=== PATIENT | female | born 1960 | race African-American/Black ===

== ENCOUNTER → 2016-08-08 | Outpatient (CLI) | payer OTHER ==
[~2016-08-08] MED LIST: REGADENOSON 0.4 MG/5 ML SYRINGE IV ONE
--- NOTE | 2016-08-08 11:42 | EST ---
DATE OF SERVICE: 08/08/2016 AGE: 56Y SEX: F HT: 5'1" WT: 140 lbs. Protocol Pedrito: Other: Lexiscan Cardiolite Stage: Dur. of Exercise: *Heart Rate Blood Pressure *Rest: 76 Rest: 112/77 * *Max. Achieved: 121 Maximum BP: 113/71 85% PMHR: 138 100% PMHR: 162 *METS: INDICATIONS: MEDICATIONS: CLINICAL INFORMATION: History of chest pain, hypertension, shortness of breath, CVA, family history of coronary artery disease, history of smoking half a pack of cigarettes a day for 1 year and quit smoking a few years ago. Resting ECG shows sinus rhythm, rate of 76 beats per minute, PA interval 0.16, QRS 0.08, nonspecific ST-T wave changes. Mild J-point depression. Utilizing a standard Lexiscan protocol, Lexiscan was given IV push followed by serial EKGs without any chest pain or pressure. Mild J-point depression similar to what it was before without any ( ) ST segment depressions. IMPRESSION: 1. Baseline rhythm is sinus with nonspecific ST-T wave changes, mild J-point depression. 2. Negative Lexiscan Cardiolite study. 3. Nuclear scintigrams to follow from radiology department.
--- NOTE | 2016-08-08 11:51 | NM ---
EXAMINATION TYPE: NM stress lexiscan cardiolite DATE OF EXAM: 08/08/2016 11:38 AM COMPARISON: NONE HISTORY: Precordial chest pain and abnormal EKG TECHNIQUE: After the intravenous administration of 10.35 mCi Tc 99m Sestamibi - Cardiolite resting S PECT images acquired 60 minutes post injection. The patient received 0.4mg Lexiscan, 26.9 mCi Tc 99m Sestamibi - Stress images obtained [address] injection FINDINGS: Review of stress and rest SPECT images demonstrates no distinct perfusion abnormality. Gated analysi s shows normal wall motion with an estimated left ventricular ejection fraction of 56% %. IMPRESSION: No scintigraphic evidence for reversible ischemia.
== END | disposition home or self-care (01) ==
LOC: RADNMMAIN 08:04
PROVIDERS: ATTEND Internal Medicine Cardiovascular Disease
DX: R07.9 Chest pain, unspecified (principal)
CPT/HCPCS: 93017; 78452; A9500; J2785

== ENCOUNTER → 2016-08-14 | Outpatient (CLI) | payer OTHER ==
[2016-08-14 17:33] LABS: Anisocytosis Slight; Aty Lym Flag Slight; CH 25.7; CHCM 31.7; HCT 39.9 % (34.0-46.0); HDW 3.19; Hypochromasia Slight; MCH 24.6 pg (25.0-35.0); MCHC 30.1 g/dL (31.0-37.0); MCV 81.8 fL (80.0-100.0); Mean Platelet Volume 8.4; RBC 4.87 m/uL (3.80-5.40); RDW 16.8 % (11.5-15.5); WBC 7.8 k/uL (3.8-10.6); WBC (Perox) 8.07
[2016-08-14 17:40] LABS: Phosphorous 4.4 mg/dL (2.5-4.5); Potassium 4.4 mmol/L (3.5-5.1); Uric Acid 12.9 mg/dL (3.7-7.4)
[2016-08-14 17:48] LABS: Add Differential Manual Differential
[2016-08-14 17:49] LABS: % Iron Saturation 74.6 % (20-50)
[2016-08-14 17:53] LABS: Nucleated Red Blood Cells 0 /100 WBC (0-0); Total Cells Counted 100
[2016-08-14 17:54] LABS: Manual Review Performed; Target Cells Present; Toxic Granulation Present; Toxic Vacuolation Present
== END | disposition home or self-care (01) ==
LOC: LABWHC1 16:18
PROVIDERS: ATTEND Internal Medicine Nephrology
DX: N18.3 Chronic kidney disease, stage 3 (moderate) (principal)
CPT/HCPCS: 36415; 80048; 82040; 82306; 82728; 83540; 83550; 83735; 83970; 84100; 84165; 84550; 85025

== ENCOUNTER 2016-08-29 13:19 | Inpatient (IN) | payer OTHER ==
[2016-08-29] MEDS ORDERED: ONDANSETRON 4 MG/2 ML VIAL IVP STA (14:23)
[2016-08-29] MEDS ORDERED: SODIUM CHLORIDE 0.9% 1,000 ML IV STA (14:23)
[2016-08-29] MEDS ORDERED: SODIUM CHLORIDE 0.9% 500 ML IV STA (14:23)
--- NOTE | 2016-08-29 14:28 | ED ---
General Adult HPI - General Chief complaint: Nausea/Vomiting/Diarrhea Stated complaint: Vomiting Time Seen by Provider: 08/29/16 14:11 Source: patient, family, RN notes reviewed, old records reviewed Mode of arrival: wheelchair Limitations: no limitations - History of Present Illness Initial comments: Chief complaint and history of present illness is a 56-year-old female here with family. She's been having nausea vomiting a small amount of loose stool for 3 days. I called the family physician suggested she come the emergency room. No pain. No blood in the vomit. - Related Data Home Medications Medication Instructions Recorded Confirmed Ferrous Sulfate [Feosol] 325 mg PO DAILY 01/03/14 08/29/16 Metoprolol Tartrate [Lopressor] 100 mg PO BID 01/03/14 08/29/16 Phenytoin Sodium Extended 30 mg PO HS 01/03/14 08/29/16 [Dilantin] Phenytoin Sodium Extended 100 mg PO BID 01/03/14 08/29/16 [Dilantin] PARoxetine HCL 40 mg PO DAILY 09/23/15 08/29/16 Aspirin EC [Ecotrin Low Dose] 81 mg PO DAILY 04/12/16 08/29/16 Divalproex [Depakote] 1,000 mg PO BID 04/12/16 08/29/16 Furosemide [Lasix] 40 mg PO DAILY 04/26/16 08/29/16 ARIPiprazole [Abilify] 10 mg PO HS 08/29/16 08/29/16 OLANZapine [ZyPREXA] 2.5 mg PO DAILY 08/29/16 08/29/16 Sertraline HCl [Zoloft] 50 mg PO DAILY 08/29/16 08/29/16 Triamterene-Hctz 37.5-25Mg 1 tab PO DAILY 08/29/16 08/29/16 [Maxzide 37.5-25] Allergies Allergy/AdvReac Type Severity Reaction Status Date / Time No Known Allergies Allergy Verified 08/29/16 14:04 Review of Systems ROS Statement: Those systems with pertinent positive or pertinent negative responses have been documented in the HPI. Review of systems. Patient's denying any headache or chest pain or shortness of breath. She has had nausea vomiting had difficulty keeping her medications down. Past medical problems significant for us stroke that affected the left side she is able ambulate but she does have decreased ability with her left arm. Also hyperlipidemia, hypertension, renal disease in the past but family reports is improved on last examination. She has pseudoseizures last seizure was over 7 months ago. History of anemia. Surgeries include a , foot surgery, she's had coils and stents in her brain. ALLERGIES none. Nonsmoker nondrinker. ROS Other: All systems not noted in ROS Statement are negative. Past Medical History Past Medical History: CVA/TIA, Hyperlipidemia, Hypertension, Renal Disease, Seizure Disorder Additional Past Medical History / Comment(s): ANEMIA, CVA WITH L ARM SEVERE WEAKNESS AND L LEG WEAKNESS, c/o abd pain-has had for several months, hx. gout, PANCREATITIS, pseudoseizures History of Any Multi-Drug Resistant Organisms: None Reported Past Surgical History: Section, Orthopedic Surgery Additional Past Surgical History / Comment(s): COILS AND STENTS TO BRAIN, repair tendons r/t gout BILATERAL FEET. Past Anesthesia/Blood Transfusion Reactions: No Reported Reaction Additional Past Anesthesia/Blood Transfusion Reaction / Comment(s): PT HAS HAD BLOOD TRANSFUSIONS FOR ANEMIA-NO REACTION. Past Psychological History: Depression, Schizophrenia Additional Psychological History / Comment(s): paranoid schizophrenia Smoking Status: Former smoker Past Alcohol Use History: None Reported Additional Past Alcohol Use History / Comment(s): STARTED SMOKING AT AGE 14, SMOKED 1PPD, QUIT >20 YEARS AGO BUT SMOKED AGAIN BRIEFLY WHEN AT [facility] BUT QUIT 1.5 YERAS AGO Past Drug Use History: Cocaine - Past Family History Father Family Medical History: Cancer Additional Family Medical History / Comment(s): throat, lung, and rectal cancer Mother Family Medical History: Myocardial Infarction ([place]) Additional Family Medical History / Comment(s): stroke General Exam - General Exam Comments Initial Comments: General: The patient is awake and alert, symptom by Dr. Howard nausea vomiting and some loose stool for 3 days. Vital signs show temperature 97.7 pulse 97 return rate 15 pulse ox 99% room air blood pressure 91/59. Eye: Pupils are equal, round and reactive to light, extra-ocular movements are intact ; there is normal conjunctiva bilaterally. No signs of icterus. Ears, nose, mouth and throat: There are moist mucous membranes and no oral lesions. Neck: The neck is supple, there is no tenderness , no complaint of neck pain. Cardiovascular: There is a regular rate and rhythm. No murmur, rub or gallop is appreciated. Respiratory: Lungs are clear to auscultation, respirations are non-labored, breath sounds are equal. No wheezes, stridor, rales, or rhonchi. Gastrointestinal: Soft, non-distended, non-tender abdomen without masses or organomegaly noted. There is no rebound or guarding present. Active bowel sounds history of 3 days of nausea vomiting Back: No complaint of back pain Musculoskeletal: No pedal edema. Neurological: Previous CVA affecting mostly the left side especially left arm. No new deficits per patient and family at bedside. Skin: Skin is warm and dry and no rashes or lesions are noted. Limitations: no limitations Course Vital Signs 08/29/16 13:53 Temperature 97.7 F Pulse Rate 97 Respiratory 15 Rate Blood Pressure 91/59 O2 Sat by Pulse 99 Oximetry Medical Decision Making - Medical Decision Making Medical decision making white count is 7.6 with hemoglobin 11 hematocrit of 35, potassium 3.6 with a BUN elevated at 62 elevate creatinine 1.53 and GFR of 42. The patient's glucose 72. Amylase mildly elevated at 111. I started an IV in the patient's right external jugular vein. Patient is being hydrated. X-ray of the abdomen was done and reviewed by radiologist's his final impression is overall a nonspecific likely nonobstructive bowel gas pattern. As read by Dr. arriaza The patient be admitted to Dr. Sharif is not. I spoke with his nurse practitioner Kamila floyd. Patient be hydrated, advance diet. - Lab Data Result diagrams: 08/29/16 16:31 08/29/16 16:31 Lab Results 08/29/16 08/29/16 Range/Units 16:31 16:31 WBC 7.6 (3.8-10.6) k/uL RBC 4.53 (3.80-5.40) m/uL Hgb 11.5 (11.4-16.0) gm/dL Hct 35.0 (34.0-46.0) % MCV 77.3 L (80.0-100.0) fL MCH 25.4 (25.0-35.0) pg MCHC 32.8 (31.0-37.0) g/dL RDW 15.9 H (11.5-15.5) % Plt Count 222 (150-450) k/uL Neutrophils % (Manual) 37.0 % Lymphocytes % (Manual) 42.0 % Monocytes % (Manual) 21.0 % Neutrophils # (Manual) 2.8 (1.3-7.7) k/uL Lymphocytes # (Manual) 3.2 (1.0-4.8) k/uL Monocytes # (Manual) 1.6 H (0-1.0) k/uL Nucleated RBCs 0 (0-0) /100 WBC Manual Slide Review Performed Microcytosis Slight Target Cells Present Ovalocytes Present Sodium 139 (137-145) mmol/L Potassium 3.6 (3.5-5.1) mmol/L Chloride 97 L (98-107) mmol/L Carbon Dioxide 24 (22-30) mmol/L Anion Gap 18 mmol/L BUN 62 H (7-17) mg/dL Creatinine 1.53 H (0.52-1.04) mg/dL Est GFR (MDRD) Af Amer 42 (>60 ml/min/1.73 sqM) Est GFR (MDRD) Non-Af 35 (>60 ml/min/1.73 sqM) Glucose 77 (74-99) mg/dL Calcium 9.4 (8.4-10.2) mg/dL Total Bilirubin 0.8 (0.2-1.3) mg/dL AST 41 H (14-36) U/L ALT 37 (9-52) U/L Alkaline Phosphatase 104 (38-126) U/L Total Protein 7.6 (6.3-8.2) g/dL Albumin 3.8 (3.5-5.0) g/dL Amylase 111 H (30-110) U/L Lipase 104 (23-300) U/L Disposition Clinical Impression: Acute kidney injury Disposition: ADMITTED IP TO THIS HOSP Condition: Fair
[2016-08-29] MEDS ORDERED: ONDANSETRON ODT 4 MG TAB PO STA (15:34)
--- NOTE | 2016-08-29 15:53 | XR ---
EXAMINATION TYPE: XR KUB DATE OF EXAM: 08/29/2016 3:47 PM CLINICAL HISTORY: History of pancreatitis presents with nausea vomiting diarrhea and pain. TECHNIQUE: Single supine KUB image of the abdomen is obtained COMPARISON: CT abdomen pelvis April 25, 2016. Abdominal x-ray April 12, 2016. FINDINGS: There is some paucity of bowel gas. Visualized gas is seen in nondistended small and large bowel loops. Numerous scattered pelvic phleboliths are redemonstrated. Lung bases are not included. V isualized osseous structures are intact. Vascular calcification bilateral groin region is seen. IMPRESSION: Overall nonspecific likely nonobstructive bowel gas pattern.
[2016-08-29 17:23] LABS: Aty Lym Flag Moderate; CH 25.9; CHCM 33.8; HDW 3.18; HGB 11.5 gm/dL (11.4-16.0); MCH 25.4 pg (25.0-35.0); MCHC 32.8 g/dL (31.0-37.0); MCV 77.3 fL (80.0-100.0); Mean Platelet Volume 7.9; Microcytosis Slight; RBC 4.53 m/uL (3.80-5.40); RDW 15.9 % (11.5-15.5); WBC 7.6 k/uL (3.8-10.6); WBC (Perox) 7.37
[2016-08-29 17:33] LABS: Calcium 9.4 mg/dL (8.4-10.2); Total Bilirubin 0.8 mg/dL (0.2-1.3); Total Protein 7.6 g/dL (6.3-8.2)
[2016-08-29 17:36] LABS: Add Differential Manual Differential
[2016-08-29 17:37] LABS: Potassium 3.6 mmol/L (3.5-5.1)
[2016-08-29 17:39] LABS: Manual Review Performed; Nucleated Red Blood Cells 0 /100 WBC (0-0); Total Cells Counted 100
[2016-08-29 17:40] LABS: Ovalocytes Present; Target Cells Present
[2016-08-29] MEDS ORDERED: NALOXONE 0.4 MG/ML 1 ML VIAL IV PRN (18:13)
[2016-08-29] MEDS ORDERED: ONDANSETRON 4 MG/2 ML VIAL IVP PRN (18:13)
[2016-08-29] MEDS ORDERED: METOCLOPRAMIDE 5 MG/ML 2 ML VIAL IVP PRN (18:18)
[2016-08-29] MEDS ORDERED: SODIUM CHLORIDE 0.9% 500 ML IV ONE (18:45)
[2016-08-29] MEDS: SODIUM CHLORIDE 0.9% 1,000 ML IV SCH (20:04)
[2016-08-29] MEDS ORDERED: ARIPiprazole 10 MG TAB PO SCH (21:00)
[2016-08-29] MEDS: PHENYTOIN SODIUM EXTENDED 100 MG CAP PO SCH (21:43)
[2016-08-29] MEDS: DIVALPROEX 500 MG TABLET.DR PO SCH (21:43)
[2016-08-29] MEDS: PHENYTOIN ORAL SUSP 100 MG/4 ML CUP PO SCH (21:43)
[2016-08-29] MEDS: HYDROmorphone 1 MG/ML 1 ML SYRINGE IVP PRN (23:03)
[2016-08-30] MEDS: HYDROmorphone 1 MG/ML 1 ML SYRINGE IVP PRN ×2 (03:36→11:53)
[2016-08-30] MEDS: SODIUM CHLORIDE 0.9% 1,000 ML IV SCH ×3 (05:15→19:10)
[2016-08-30 08:15] LABS: Aty Lym Flag Moderate; CH 25.5; CHCM 31.7; HCT 31.2 % (34.0-46.0); HDW 3.09; Hypochromasia Slight; MCH 25.8 pg (25.0-35.0); MCHC 31.7 g/dL (31.0-37.0); MCV 81.2 fL (80.0-100.0); Mean Platelet Volume 6.9; RBC 3.85 m/uL (3.80-5.40); RDW 15.9 % (11.5-15.5); WBC (Perox) 6.08
[2016-08-30 08:26] LABS: HGB 9.9 gm/dL (11.4-16.0)
[2016-08-30 08:28] LABS: ALT 37 U/L (9-52); AST 25 U/L (14-36); Alkaline Phosphatase 86 U/L (38-126); Anion Gap 14 mmol/L; Blood Urea Nitrogen 43 mg/dL (7-17); Calcium 8.2 mg/dL (8.4-10.2); Carbon Dioxide 22 mmol/L (22-30); Chloride 107 mmol/L (98-107); Glucose 90 mg/dL (74-99); Non-African American GFR(MDRD) 51 (>60 ml/min/1.73 sqM); Sodium 143 mmol/L (137-145); Total Bilirubin 0.5 mg/dL (0.2-1.3); Total Protein 6.2 g/dL (6.3-8.2)
[2016-08-30 08:43] LABS: Potassium 2.5 mmol/L (3.5-5.1)
[2016-08-30] MEDS ORDERED: PAROXETINE HCL 40 MG PO SCH (09:00)
[2016-08-30] MEDS ORDERED: OLANZapine 2.5 MG TAB PO SCH (09:00)
[2016-08-30 09:11] LABS: Add Differential Manual Differential
[2016-08-30 09:13] LABS: Nucleated Red Blood Cells 0 /100 WBC (0-0); Polychromasia Present; Total Cells Counted 100
[2016-08-30] MEDS: FERROUS SULFATE 325 MG TAB PO SCH (11:52)
[2016-08-30] MEDS: SERTRALINE 50 MG TAB PO SCH (11:52)
[2016-08-30] MEDS: PANTOPRAZOLE 40 MG/10 ML VIAL IV SCH (11:52)
[2016-08-30] MEDS: PHENYTOIN SODIUM EXTENDED 100 MG CAP PO SCH ×2 (11:53→20:31)
[2016-08-30] MEDS: DIVALPROEX 500 MG TABLET.DR PO SCH ×2 (11:53→20:31)
[2016-08-30 14:17] VITALS: BMI 24.9
--- NOTE | 2016-08-30 14:36 | CONS ---
DATE OF CONSULTATION: REASON FOR CONSULTATION: Renal failure. HISTORY OF PRESENT ILLNESS: Patient is a 56-year-old female who was admitted to the hospital with complaints of nausea, vomiting and diarrhea and not feeling well for about 3 to 4 days prior to admission. Patient has been voiding. She is maintained on IV fluids. Serum creatinine was 1.53 mg/dL on admission. It is now down to 1.1, potassium is low at 2.5 mEq/L. Patient has had previous episode of acute kidney injury on her previous admission with serum creatinine at 5.1 in April 2016. PAST MEDICAL HISTORY: Previous history of acute kidney injury about 3 to 4 months ago which completely resolved, history of seizures, history of CVA, hyperlipidemia, hypertension, seizure disorder. Depression and schizophrenia. PAST SURGICAL HISTORY: , orthopedic surgery, surgery on bilateral feet. SOCIAL HISTORY: The patient is an ex-smoker. No history of drug abuse or alcohol abuse. Medications at home prior to admission included: 1. Feosol. 2. Lopressor. 3. Dilantin. 4. Depakote. 5. Lasix. 6. Abilify. 7. Zoloft. 8. Zyprexa. 9. Maxzide. ALLERGIES: None. REVIEW OF SYSTEMS: As per HPI. Other systems negative. On examination, the patient is comfortable, awake she is not in any acute distress. Blood pressure is 94/55, heart rate 86 per minute. She is afebrile. Examination of the heart S1 and S2. Examination of the lungs: Bilateral breath sounds are heard. Decreased breath sounds in bases. ABDOMEN: Soft, nontender. Examination of lower extremities shows no significant edema. Patient has left hemiparesis, left upper extremity is much more weaker with some degree of contracture, as compared to the left lower extremity. Labs show sodium 143, potassium 2.5, BUN 43, serum creatinine 1.1. Hemoglobin 9.9 g/dL. UA is not available. ASSESSMENT: 1. Acute kidney injury, prerenal, currently improved. May continue with IV fluids. 2. Hypokalemia, being replaced. Check magnesium levels as well. 3. Anemia, rule out iron deficiency. 4. Nausea and vomiting, possibly related to gastroenteritis, currently improving. 5. History of seizures. 6. History of cerebrovascular accident/transient ischemic attack. PLAN: Continue IV fluids. Check magnesium, replace potassium. Repeat labs in the a.m. Thank you for this consultation. We will continue to follow the patient with you during her hospitalization.
[2016-08-30] MEDS ORDERED: Potassium Replacement Protocol 1 EACH MISC MISCELLANE PRN (14:45)
[2016-08-30] MEDS: POTASSIUM CHLORIDE 10 MEQ, LIDOCAINE 2% INJ 10 MG in SODIUM CHLORIDE 0.9% 100 ML IV SCH ×3 (16:15→20:30)
[2016-08-30] MEDS: PHENYTOIN ORAL SUSP 100 MG/4 ML CUP PO SCH (20:31)
--- NOTE | 2016-08-30 22:52 | HP ---
CHIEF COMPLAINT: A 56-year-old -[place] female admitted with renal failure due to dehydration with nausea, vomiting and diarrhea for the past 3 to 4 days. She states she has been voiding. She was admitted with an elevated creatinine of 1.53 and started on IV fluids. She has had previous ( ) May 05, 2006 and she had acute kidney injury, admitted with creatinine of 5.1. Past medical acute kidney injury 3 or 4 months ago resolved secondary to severe dehydration, seizures, history of status epilepticus, history of CVA, hypertension, dyslipidemia, schizophrenia, depression, orthopedic surgery, , surgery of feet. SOCIAL HISTORY: Ex-smoker. She does follow a poor diet. No drug abuse or alcohol abuse. Meds include: 1. Feosol. 2. Lopressor. 3. Dilantin. 4. Depakote. 5. Lasix. 6. Abilify. 7. Zoloft. 8. Zyprexa. 9. Maxzide. Allergies are none. REVIEW OF SYSTEMS: PSYCH: As mentioned above. NEURO: Negative. IMMUNE: Negative. INTEGUMENT: Negative. OPHTHALMOLOGIC: Negative. VASCULAR: Negative. : Negative. PHYSICAL EXAM: Blood pressure is 90s/50s heart rate is in the 80s. CARDIOVASCULAR: S1, S2 without any murmurs, rubs, gallops. LUNGS: Clear to auscultation. PSYCHIATRIC: Fair mood and affect. NEUROLOGIC: Alert and oriented x3. VASCULAR: Normal dorsalis pedis, posterior tibial and radial pulses. INTEGUMENT: Poor skin turgor, decreased skin turgor. OPHTHALMOLOGIC: Pupils equal, round and react to light and accommodation. ABDOMEN: Soft, nontender. No mass or organomegaly. Sodium 141, potassium 2.5, creatinine 1.5. Hemoglobin 9.9. ASSESSMENT: 1. Acute renal injury, prerenal secondary to gastroenteritis, hypokalemia and hypomagnesemia. 2. History of hypertension. 3. Hypothyroidism. 4. Anxiety. 5. Bipolar. 6. History of cerebrovascular accident. 7. Hypertension. Continue with fluid rehydration. Possible discharge home in next 24 to 48 hours if kidney function continues to improve.
[2016-08-31] MEDS ORDERED: Potassium Replacement Protocol 1 EACH MISC MISCELLANE PRN ×2 (00:54→05:33)
[2016-08-31] MEDS: POTASSIUM CHLORIDE ER 20 MEQ TAB.ER PO SCH ×2 (01:04→02:00)
[2016-08-31] MEDS ORDERED: POTASSIUM CHLORIDE ER 20 MEQ TAB.ER PO SCH (06:00)
[2016-08-31 08:05] LABS: Anisocytosis Slight; Basophils % (A) 1 %; CHCM 31.9; Eosinophils # (A) 0.2 k/uL (0-0.7); Eosinophils % (A) 4 %; HCT 33.7 % (34.0-46.0); HDW 3.36; HGB 10.7 gm/dL (11.4-16.0); Hypochromasia Slight; Luc # (Auto) 0.19; Luc % (Auto) 4; Lymphocytes # (A) 2.3 k/uL (1.0-4.8); Lymphocytes % (A) 47 %; MCH 26.2 pg (25.0-35.0); MCHC 31.9 g/dL (31.0-37.0); MCV 82.4 fL (80.0-100.0); Mean Platelet Volume 7.9; Monocytes # (A) 0.6 k/uL (0-1.0); Monocytes % (A) 13 %; Neutrophils # (A) 1.5 k/uL (1.3-7.7); Neutrophils % (A) 32 %; RBC 4.09 m/uL (3.80-5.40); RDW 16.5 % (11.5-15.5); WBC 4.8 k/uL (3.8-10.6); WBC (Perox) 4.64
[2016-08-31 08:17] LABS: ALT 40 U/L (9-52); AST 34 U/L (14-36); Alkaline Phosphatase 94 U/L (38-126); Anion Gap 11 mmol/L; Blood Urea Nitrogen 26 mg/dL (7-17); Calcium 8.6 mg/dL (8.4-10.2); Carbon Dioxide 21 mmol/L (22-30); Chloride 113 mmol/L (98-107); Glucose 90 mg/dL (74-99); Non-African American GFR(MDRD) >60 (>60 ml/min/1.73 sqM); Potassium 3.9 mmol/L (3.5-5.1); Sodium 145 mmol/L (137-145); Total Bilirubin 0.5 mg/dL (0.2-1.3); Total Protein 6.5 g/dL (6.3-8.2)
[2016-08-31] MEDS: PANTOPRAZOLE 40 MG/10 ML VIAL IV SCH (08:56)
[2016-08-31] MEDS: FERROUS SULFATE 325 MG TAB PO SCH (08:56)
[2016-08-31] MEDS: SERTRALINE 50 MG TAB PO SCH (08:56)
[2016-08-31] MEDS: DIVALPROEX 500 MG TABLET.DR PO SCH ×2 (08:56→20:34)
[2016-08-31] MEDS: PHENYTOIN SODIUM EXTENDED 100 MG CAP PO SCH ×2 (08:56→20:34)
[2016-08-31] MEDS: SODIUM CHLORIDE 0.9% 1,000 ML IV SCH ×4 (08:57→20:35)
--- NOTE | 2016-08-31 17:03 | PN ---
Patient is seen for followup for acute kidney injury which was mainly prerenal. Patient is currently lying in bed. She is comfortable. She is not in any acute distress. She is maintained on IV fluids. Renal function has improved with serum creatinine down from 1.53 to 0.9 mg/dL. On examination, patient is comfortable. Blood pressure is 83/57, heart rate 90 per minute. She is afebrile. Examination of the heart, S1 and S2. Examination of the lungs, bilateral breath sounds are heard. Abdomen is soft, nontender. Examination of lower extremities shows no significant edema. 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 Labs show sodium 145, potassium 3.9, chloride 113, CO2 of 21, BUN 26, serum creatinine 0.9. Hemoglobin 10.7 g/dL. ASSESSMENT: 1. Acute kidney injury, prerenal, currently improving with IV hydration. 2. Hypokalemia, status post replacement. 3. History of cerebrovascular accident with the left hemiparesis, left upper extremity much more weaker than left lower extremity. 4. Hypotension with blood pressure, I believe chronically staying on the lower side. PLAN: May continue IV fluids, continue to encourage increased oral intake. The patient is stable for discharge from nephrology standpoint.
[2016-08-31] MEDS: HYDROmorphone 1 MG/ML 1 ML SYRINGE IVP PRN (19:46)
[2016-08-31] MEDS: PHENYTOIN ORAL SUSP 100 MG/4 ML CUP PO SCH (20:34)
[2016-09-01] MEDS: SODIUM CHLORIDE 0.9% 1,000 ML IV SCH ×3 (04:00→17:23)
[2016-09-01] MEDS: PANTOPRAZOLE 40 MG/10 ML VIAL IV SCH (08:59)
[2016-09-01] MEDS: PHENYTOIN SODIUM EXTENDED 100 MG CAP PO SCH ×2 (08:59→21:04)
[2016-09-01] MEDS: SERTRALINE 50 MG TAB PO SCH (08:59)
[2016-09-01] MEDS: DIVALPROEX 500 MG TABLET.DR PO SCH ×2 (08:59→21:05)
[2016-09-01] MEDS: HYDROmorphone 1 MG/ML 1 ML SYRINGE IVP PRN (09:01)
[2016-09-01] MEDS: FERROUS SULFATE 325 MG TAB PO SCH (12:47)
--- NOTE | 2016-09-01 14:52 | P.PN ---
Subjective 56 year old female being seen feeling better no further episodes of nausea or vomiting Objective - Vital Signs Vital signs: Vital Signs Temp 97.7 F 09/01/16 07:00 Pulse 72 09/01/16 08:00 Resp 16 09/01/16 08:00 BP 86/52 09/01/16 07:00 Pulse Ox 100 09/01/16 07:00 Intake & Output 08/31/16 09/01/16 09/01/16 18:59 06:59 18:59 Intake Total 1250 1080 Output Total 75 Balance 1250 1080 -75 Weight 59.874 kg Intake: IV 750 Sodium Chloride 0.9% 1, 750 000 ml @ 125 mls/hr IV . Q8H SHAR Rx#:[id number] Intake, IV Titration 600 Amount Sodium Chloride 0.9% 1, 600 000 ml @ 150 mls/hr IV . Q6H40M SHAR Rx#:[id number] Oral 500 480 Output: Urine 75 Other: Voiding Method Bedpan Bedpan Bedpan Diaper Diaper Diaper # Voids 4 3 1 - Exam physical exam general NAD oriented x 3 lungs clear heart regular no chest pain abd soft nontender Extremity no edema - Labs CBC & Chem 7: 08/31/16 07:16 08/31/16 07:16 Assessment and Plan Plan: Impression Present on admission nausea vomiting with frequent loose stools suspect viral gastroenteritis Present on admission Acute kidney injury likely prerenal suspect due to poor oral intake Electrolyte hypokalemia corrected replaced A prior CVA resulting in left hemiparesis Hypotensive chronic History of a seizure disorder History of schizophrenia Present on admission clinical dehydration suspect due to poor oral intake with nausea vomiting frequent stooling resolved Frequent stooling C. diff negative Plan Prepped for probable discharge in the next 24 hours Resume home meds Continue DVT and GI prophylaxis Further recommendations pending The above dictated assessment and findings were discussed with dr fahad West and the plan of care have been dictated as directed. Renetta Resendez nurse practitioner acting as a scribe for dr vásquez
[2016-09-01] MEDS ORDERED: SODIUM CHLORIDE 0.9% 1,000 ML IV SCH (15:15)
--- NOTE | 2016-09-01 17:02 | PN ---
Patient is seen for followup for acute kidney injury which was mainly prerenal. Patient is lying in bed. She is comfortable, not in any acute distress. She has been maintained on IV fluids. Renal function has improved. Serum creatinine is down to 0.9 mg/dL. Patient was also hypokalemic and her potassium is now up to 3.9. On examination, patient is comfortable, awake, not in any acute distress. Blood pressure is 84/52, heart rate 70 per minute. She is afebrile. EXAMINATION OF THE HEART: S1 and S2. EXAMINATION OF THE LUNGS: Bilateral breath sounds are heard. ABDOMEN: Soft, nontender. Examination of lower extremities shows trace edema bilaterally. 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 Labs show sodium 145, potassium 3.9. Serum creatinine 0.9, BUN 26. Hemoglobin 10.7. ASSESSMENT: 1. Acute kidney injury, prerenal, currently improved. Continue to encourage increased oral intake. We can hold the IV fluids if patient is eating. 2. History of cerebrovascular accident with left hemiparesis. 3. Seizure disorder. 4. History of schizophrenia. 5. Hypokalemia, currently improved. Potassium is 3.9. PLAN: Decrease IV fluids. Encourage increased oral intake. Repeat labs in a.m.
[2016-09-01] MEDS: PHENYTOIN ORAL SUSP 100 MG/4 ML CUP PO SCH (21:04)
[2016-09-02] MEDS: DIVALPROEX 500 MG TABLET.DR PO SCH ×2 (07:57→20:39)
[2016-09-02] MEDS: ASPIRIN 81 MG CHEW PO SCH (07:57)
[2016-09-02] MEDS: PANTOPRAZOLE 40 MG TABLET PO SCH (07:57)
[2016-09-02] MEDS: PHENYTOIN SODIUM EXTENDED 100 MG CAP PO SCH ×2 (07:58→20:39)
[2016-09-02] MEDS: SERTRALINE 50 MG TAB PO SCH (07:58)
[2016-09-02 09:54] LABS: ALT 29 U/L (9-52); AST 37 U/L (14-36); Alkaline Phosphatase 75 U/L (38-126); Anion Gap 8 mmol/L; Blood Urea Nitrogen 15 mg/dL (7-17); Calcium 9.5 mg/dL (8.4-10.2); Carbon Dioxide 21 mmol/L (22-30); Chloride 117 mmol/L (98-107); Glucose 88 mg/dL (74-99); Non-African American GFR(MDRD) >60 (>60 ml/min/1.73 sqM); Sodium 146 mmol/L (137-145); Total Bilirubin 0.7 mg/dL (0.2-1.3); Total Protein 6.1 g/dL (6.3-8.2)
[2016-09-02 10:00] LABS: Potassium 5.7 mmol/L (3.5-5.1)
[2016-09-02] MEDS: FERROUS SULFATE 325 MG TAB PO SCH (12:24)
[2016-09-02] MEDS: SODIUM CHLORIDE 0.9% 1,000 ML IV SCH (12:53)
--- NOTE | 2016-09-02 13:22 | P.DS ---
Providers Date of admission: 08/29/16 18:14 Expected date of discharge: 09/02/16 Attending physician: Mohit Vásquez Consults: 08/30/16 08:13 Consult Physician Routine Consulting Provider: Mini Simon Consult Reason/Comments: renal insufficiency Do you want consulting provider notified?: Yes Primary care physician: [facility] Course: 56-year-old presented on the day of admission to the emergency room with a chief complaint of nausea vomiting small amount of loose stool for the past 3 days. Patient was advised to come to the emergency room after she notified her family doctor. Was no blood noted in the vomit no blood noted in the stool nephrology consultation was requested. Patient was maintained on IV fluid. Creatinine on admission was 1.5. The potassium was low at 2.5. Patient has had previous episodes of acute kidney injury on her previous admissions the serum creatinine was and April 2016. Patient also has a history of a prior stroke. Patient was admitted started on IV hydration monitor closely by nephrology. On the day of discharge patient was felt to be hemodynamically stable and appropriate to proceed. It was noted the patient was hypotensive asymptomatic suspect due to medication induced antihypertensive meds were held blood pressure was monitored closely off of the antihypertensive meds if blood pressure was 100/64. Impression discharge diagnose Present on admission nausea vomiting with frequent loose stools suspect viral gastroenteritis Present on admission Acute kidney injury likely prerenal suspect due to poor oral intake Electrolyte hypokalemia corrected replaced A prior CVA resulting in left hemiparesis Hypotensive chronic History of a seizure disorder History of schizophrenia Present on admission clinical dehydration suspect due to poor oral intake with nausea vomiting frequent stooling resolved Frequent stooling C. diff negative Asymptomatic hypotension suspect due to medication antihypertensive meds on The above dictated assessment and findings were discussed with dr vásquez Impression and the plan of care have been dictated as directed. Renetta Resendez nurse practitioner acting as a scribe for dr vásquez Patient Condition at Discharge: Fair Plan - Discharge Summary Discharge Medication List Ferrous Sulfate [Feosol] 325 mg PO DAILY 01/03/14 [History] Phenytoin Sodium Extended [Dilantin] 30 mg PO HS 01/03/14 [History] Phenytoin Sodium Extended [Dilantin] 100 mg PO BID 01/03/14 [History] Aspirin EC [Ecotrin Low Dose] 81 mg PO DAILY 04/12/16 [History] Divalproex [Depakote] 1,000 mg PO BID 04/12/16 [History] ARIPiprazole [Abilify] 10 mg PO HS 08/29/16 [History] OLANZapine [ZyPREXA] 2.5 mg PO DAILY 08/29/16 [History] Sertraline HCl [Zoloft] 50 mg PO DAILY 08/29/16 [History] Follow up Appointment(s)/Referral(s): Mohit Vásquez MD [Primary Care Provider] - 1-2 days Discharge Disposition: HOME SELF-CARE
[2016-09-02 14:47] LABS: Anion Gap 10 mmol/L; Blood Urea Nitrogen 12 mg/dL (7-17); Calcium 9.1 mg/dL (8.4-10.2); Carbon Dioxide 20 mmol/L (22-30); Chloride 114 mmol/L (98-107); Glucose 91 mg/dL (74-99); Non-African American GFR(MDRD) >60 (>60 ml/min/1.73 sqM); Potassium 4.4 mmol/L (3.5-5.1); Sodium 144 mmol/L (137-145)
--- NOTE | 2016-09-02 14:54 | P.PN ---
Subjective 56-year-old female being seen on rounds reportedly stating feels nausea sensation no active emesis with poor appetite. Patient states she just does not feel like eating. Did note the blood pressure readings have improved after holding all antihypertensive meds. Agents denying any dizziness lightheadedness. Did note the potassium level is elevated this morning at 5.6 we'll repeat the labs Objective - Vital Signs Vital signs: Vital Signs Temp 97.9 F 09/02/16 14:17 Pulse 104 H 09/02/16 14:17 Resp 16 09/02/16 14:17 BP 96/51 09/02/16 14:17 Pulse Ox 97 09/02/16 14:17 Intake & Output 09/01/16 09/02/16 09/02/16 18:59 06:59 18:59 Intake Total 360 Output Total 75 Balance -75 360 Weight 59.874 kg Intake: Oral 360 Output: Urine 75 Other: Voiding Method Bedpan Toilet Toilet Diaper # Voids 1 2 3 # Bowel Movements 1 - Exam physical exam general NAD oriented x 3 patient up sitting in the chair reports no appetite lungs clear on room air heart S1-S2 audible regular regular no chest pain abd soft nontender no nausea vomiting poor caloric intake states does not feel like eating nursing reports patient has had one bowel movement today is incontinent at times of urine Extremity no edema - Labs CBC & Chem 7: 08/31/16 07:16 09/02/16 09:11 Labs: Abnormal Lab Results - Last 24 Hours (Table) 09/02/16 Range/Units 09:11 Sodium 146 H (137-145) mmol/L Potassium 5.7 H (3.5-5.1) mmol/L Chloride 117 H (98-107) mmol/L Carbon Dioxide 21 L (22-30) mmol/L AST 37 H (14-36) U/L Total Protein 6.1 L (6.3-8.2) g/dL Albumin 2.9 L (3.5-5.0) g/dL Assessment and Plan Plan: Impression Present on admission nausea vomiting with frequent loose stools suspect viral gastroenteritis Present on admission Acute kidney injury likely prerenal suspect due to poor oral intake Electrolyte hypokalemia corrected replaced A prior CVA resulting in left hemiparesis Hypotensive chronic History of a seizure disorder History of schizophrenia Present on admission clinical dehydration suspect due to poor oral intake with nausea vomiting frequent stooling resolved Frequent stooling C. diff negative Hyperkalemic Plan Prepped for probable discharge in the next 24- 48 hours Resume home meds Continue DVT and GI prophylaxis Further recommendations pending Dietitian to see for nutritional supplements The above dictated assessment and findings were discussed with dr vásquez Impression and the plan of care have been dictated as directed. Renetta Resendez nurse practitioner acting as a scribe for dr vásquez
--- NOTE | 2016-09-02 20:23 | PN ---
Patient is seen for follow-up for acute kidney injury. Her renal function has improved significantly. Patient is currently sitting up in a bedside chair. She is comfortable. Blood pressure 96/51, heart rate 104 per minute. She is afebrile. Examination of the heart S1 and S2. Examination of the lungs: Decreased breath sounds in bases. Abdomen is soft, nontender. Examination of lower extremities shows trace edema. OB/GYN PHYSICIAN exam shows evidence of left-sided hemiparesis from previous cerebrovascular accident. Labs show sodium 146, potassium 5.7 with serum creatinine down to 0.8 mg/dL. ASSESSMENT: 1. Acute kidney injury, prerenal, currently resolved. 2. Hypokalemia, status post replacement. Serum potassium was noted to be elevated at 5.7 and agree with repeating as I do not believe this is accurate. 3. Status post cerebrovascular accident. 4. History of seizures, maintained on Depakote. 5. Nausea and vomiting secondary to gastroenteritis on initial admission, currently improved. PLAN: Agree with repeating electrolytes.
[2016-09-02] MEDS: PHENYTOIN ORAL SUSP 100 MG/4 ML CUP PO SCH (20:38)
[2016-09-03] MEDS: PHENYTOIN SODIUM EXTENDED 100 MG CAP PO SCH ×2 (08:48→20:34)
[2016-09-03] MEDS: DIVALPROEX 500 MG TABLET.DR PO SCH ×2 (08:48→20:33)
[2016-09-03 09:32] LABS: ALT 32 U/L (9-52); AST 22 U/L (14-36); Alkaline Phosphatase 75 U/L (38-126); Anion Gap 9 mmol/L; Blood Urea Nitrogen 11 mg/dL (7-17); Calcium 9.1 mg/dL (8.4-10.2); Carbon Dioxide 21 mmol/L (22-30); Chloride 115 mmol/L (98-107); Glucose 85 mg/dL (74-99); Non-African American GFR(MDRD) >60 (>60 ml/min/1.73 sqM); Potassium 4.2 mmol/L (3.5-5.1); Sodium 145 mmol/L (137-145); Total Bilirubin 0.4 mg/dL (0.2-1.3); Total Protein 5.9 g/dL (6.3-8.2)
[2016-09-03] MEDS: ASPIRIN 81 MG CHEW PO SCH (10:12)
[2016-09-03] MEDS: SODIUM CHLORIDE 0.9% 1,000 ML IV SCH (10:12)
[2016-09-03] MEDS: PANTOPRAZOLE 40 MG TABLET PO SCH (10:12)
[2016-09-03] MEDS ORDERED: IV FLUID CONTINUATION 1,000 ML IV ONE (10:42)
[2016-09-03] MEDS ORDERED: PROPOFOL 10 MG/ML 20 ML VIAL IV ONE (10:51)
[2016-09-03] MEDS ORDERED: GLYCOPYRROLATE 0.2 MG/ML 2 ML VIAL ONE (10:51)
[2016-09-03] MEDS ORDERED: LIDOCAINE 1% INJ 10MG/ML (20 ML MDV) ONE (10:51)
--- NOTE | 2016-09-03 10:54 | P.GSCN ---
History of Present Illness Consult date: 09/03/16 Reason for Consult: Nausea, poor appetite, epigastric pain History of present illness: This is a 56-year-old female referred from Dr. Mohit Chaidez. Patient's had complaints of nausea and epigastric pain. She's had poor appetite. She's had a previous history of gastritis. Patient presents today for EGD. Review of Systems - Constitutional Reports as per HPI Past Medical History Past Medical History: CVA/TIA, Hyperlipidemia, Hypertension, Renal Disease, Seizure Disorder Additional Past Medical History / Comment(s): ANEMIA, 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 gout, PANCREATITIS, PREVIOUSLY CHARTED" pseudoseizures".UTI History of Any Multi-Drug Resistant Organisms: None Reported Past Surgical History: Section, Orthopedic Surgery Additional Past Surgical History / Comment(s): COILS AND STENTS TO BRAIN, repair tendons r/t gout BILATERAL FEET. Past Anesthesia/Blood Transfusion Reactions: No Reported Reaction Additional Past Anesthesia/Blood Transfusion Reaction / Comm: PT HAS HAD BLOOD TRANSFUSIONS FOR ANEMIA-NO REACTION. Past Psychological History: Depression, Schizophrenia Additional Psychological History / Comment(s): paranoid schizophrenia Smoking Status: Former smoker Past Alcohol Use History: None Reported Additional Past Alcohol Use History / Comment(s): STARTED SMOKING AT AGE 14, SMOKED 1PPD, QUIT >20 YEARS AGO BUT SMOKED AGAIN BRIEFLY WHEN AT [place] BUT QUIT 1.5 YERAS AGO Past Drug Use History: Cocaine - Past Family History Father Family Medical History: Cancer Additional Family Medical History / Comment(s): throat, lung, and rectal cancer Mother Family Medical History: Myocardial Infarction ([place]) Additional Family Medical History / Comment(s): stroke Medications and Allergies Home Medications Medication Instructions Recorded Confirmed Type Ferrous Sulfate [Feosol] 325 mg PO DAILY 01/03/14 08/29/16 History Phenytoin Sodium Extended 30 mg PO HS 01/03/14 08/29/16 History [Dilantin] Phenytoin Sodium Extended 100 mg PO BID 01/03/14 08/29/16 History [Dilantin] Aspirin EC [Ecotrin Low Dose] 81 mg PO DAILY 04/12/16 08/29/16 History Divalproex [Depakote] 1,000 mg PO BID 04/12/16 08/29/16 History ARIPiprazole [Abilify] 10 mg PO HS 08/29/16 08/29/16 History OLANZapine [ZyPREXA] 2.5 mg PO DAILY 08/29/16 08/29/16 History Sertraline HCl [Zoloft] 50 mg PO DAILY 08/29/16 08/29/16 History Allergies Allergy/AdvReac Type Severity Reaction Status Date / Time No Known Allergies Allergy Verified 08/29/16 14:04 Surgical - Exam Vital Signs Temp Pulse Resp BP Pulse Ox 97.7 F 97 15 91/59 99 08/29/16 13:53 08/29/16 13:53 08/29/16 13:53 08/29/16 13:53 08/29/16 13:53 - General well developed, no distress - Eyes PERRL - ENT normal pinna - Neck no masses - Respiratory normal expansion - Cardiovascular Rhythm: regular - Abdomen Mild epigastric tenderness. No rebound or guarding. Abdomen: soft Results - Labs 08/31/16 07:16 09/03/16 08:37 Abnormal Lab Results - Last 24 Hours (Table) 09/02/16 09/03/16 Range/Units 14:07 08:37 Chloride 114 H 115 H (98-107) mmol/L Carbon Dioxide 20 L 21 L (22-30) mmol/L Total Protein 5.9 L (6.3-8.2) g/dL Albumin 2.8 L (3.5-5.0) g/dL Diabetes panel 09/02/16 09/03/16 Range/Units 14:07 08:37 Sodium 144 145 (137-145) mmol/L Potassium 4.4 4.2 (3.5-5.1) mmol/L Chloride 114 H 115 H (98-107) mmol/L Carbon Dioxide 20 L 21 L (22-30) mmol/L BUN 12 11 (7-17) mg/dL Creatinine 0.84 0.81 (0.52-1.04) mg/dL Glucose 91 85 (74-99) mg/dL Calcium 9.1 9.1 (8.4-10.2) mg/dL AST 22 (14-36) U/L ALT 32 (9-52) U/L Alkaline Phosphatase 75 (38-126) U/L Total Protein 5.9 L (6.3-8.2) g/dL Albumin 2.8 L (3.5-5.0) g/dL Calcium panel 09/02/16 09/03/16 Range/Units 14: 08:37 Calcium 9.1 9.1 (8.4-10.2) mg/dL Albumin 2.8 L (3.5-5.0) g/dL Pituitary panel 09/02/16 09/03/16 Range/Units 14: 08:37 Sodium 144 145 (137-145) mmol/L Potassium 4.4 4.2 (3.5-5.1) mmol/L Chloride 114 H 115 H (98-107) mmol/L Carbon Dioxide 20 L 21 L (22-30) mmol/L BUN 12 11 (7-17) mg/dL Creatinine 0.84 0.81 (0.52-1.04) mg/dL Glucose 91 85 (74-99) mg/dL Calcium 9.1 9.1 (8.4-10.2) mg/dL Adrenal panel 09/02/16 09/03/16 Range/Units 14: 08:37 Sodium 144 145 (137-145) mmol/L Potassium 4.4 4.2 (3.5-5.1) mmol/L Chloride 114 H 115 H (98-107) mmol/L Carbon Dioxide 20 L 21 L (22-30) mmol/L BUN 12 11 (7-17) mg/dL Creatinine 0.84 0.81 (0.52-1.04) mg/dL Glucose 91 85 (74-99) mg/dL Calcium 9.1 9.1 (8.4-10.2) mg/dL Total Bilirubin 0.4 (0.2-1.3) mg/dL AST 22 (14-36) U/L ALT 32 (9-52) U/L Alkaline Phosphatase 75 (38-126) U/L Total Protein 5.9 L (6.3-8.2) g/dL Albumin 2.8 L (3.5-5.0) g/dL Assessment and Plan Plan: Nausea, epigastric pain and poor appetite. We'll perform EGD.
--- NOTE | 2016-09-03 11:04 | P.OP ---
Date of Procedure: 09/03/16 Preoperative Diagnosis: Epigastric pain Postoperative Diagnosis: Mild antral gastritis Small hiatal hernia Procedure(s) Performed: EGD Anesthesia: MAC Surgeon: Dyllan Herrera Pathology: other (Antrum, esophagus) Condition: stable Disposition: PACU Description of Procedure: The patient's placed on the endoscopy table in the lateral position. She received IV sedation. The gastroscope some placed oropharynx and passed into the esophagus and into the stomach. Scope was then placed through the pylorus. The first and second portion of the duodenum appeared normal. Scope was then brought back the antrum this. Mildly inflamed. A biopsy was performed. The retroflexed remainder of the stomach appeared normal. The GE junction was at 40 cm. There was a small hiatal hernia. The distal esophagus was minimal inflamed a biopsies performed. The proximal esophagus. Normal. Scope was withdrawn for patient.
--- NOTE | 2016-09-03 15:00 | NM ---
EXAMINATION TYPE: NM hepatobiliary w CCK DATE OF EXAM: 09/03/2016 2:45 PM COMPARISON: NONE HISTORY: 56-year-old female with epigastric pain TECHNIQUE: After the intravenous administration of 5.5 mCi Tc 99m Mebrofenin hepatobiliary scintigrap hy is performed. Immediate images post injection. FINDINGS: There is satisfactory initial accumulation of tracer by the liver. The gallbladder is visualized wit hin 8 minutes. The small bowel activity is noted within 30 to minutes. At one hour CCK was administ ered, patient was injected with 1.20 mcg of Kinevac, and gallbladder ejection fraction is calculated at 70 %. Therefore there is no scintigraphic evidence of cystic or common bile duct obstruction to s uggest acute cholecystitis or gallbladder dyskinesia. IMPRESSION: No scintigraphic evidence for acute/chronic cholecystitis or biliary dyskinesia.
--- NOTE | 2016-09-03 15:07 | P.PN ---
Subjective 56-year-old female attending this morning. Is scheduled for an EGD to EGD was done by surgical service this morning it does show a small hiatal hernia mild antral gastritis. The EGD was done as part of workup for persistent epigastric discomfort. There's been no document bowel movements. Objective - Vital Signs Vital signs: Vital Signs Temp 97.2 F L 09/03/16 07:00 Pulse 110 H 09/03/16 13:10 Resp 16 09/03/16 13:10 BP 102/72 09/03/16 13:10 Pulse Ox 96 09/03/16 13:10 Intake & Output 09/02/16 09/03/16 09/03/16 18:59 06:59 18:59 Intake Total 890 100 Balance 890 100 Weight 59.874 kg 59.874 kg Intake: IV 100 Oral 890 Other: Voiding Method Toilet Toilet Toilet # Voids 3 1 1 # Bowel Movements 1 0 - Exam physical exam general NAD oriented x 3 lungs clear on room air heart S1-S2 audible regular regular no chest pain abd soft nontender no nausea Extremity no edema - Labs CBC & Chem 7: 08/31/16 07:16 09/03/16 08:37 Labs: Abnormal Lab Results - Last 24 Hours (Table) 09/03/16 Range/Units 08:37 Chloride 115 H (98-107) mmol/L Carbon Dioxide 21 L (22-30) mmol/L Total Protein 5.9 L (6.3-8.2) g/dL Albumin 2.8 L (3.5-5.0) g/dL Assessment and Plan Plan: Impression Present on admission nausea vomiting with frequent loose stools suspect viral gastroenteritis Present on admission Acute kidney injury likely prerenal suspect due to poor oral intake Electrolyte hypokalemia corrected replaced A prior CVA resulting in left hemiparesis Hypotensive chronic History of a seizure disorder History of schizophrenia Present on admission clinical dehydration suspect due to poor oral intake with nausea vomiting frequent stooling resolved Frequent stooling C. diff negative Hyperkalemic Status post EGD done September 03 mild atrophic gastritis small hiatal hernia Plan Continue protonix 40 daily Prepped for probable discharge in the next 24- 48 hours Resume home meds Continue DVT and GI prophylaxis Further recommendations pending Dietitian to see for nutritional supplements The above dictated assessment and findings were discussed with dr mullally Impression and the plan of care have been dictated as directed. Renetta Resendez nurse practitioner acting as a scribe for dr vásquez
[2016-09-03] MEDS: FERROUS SULFATE 325 MG TAB PO SCH (17:03)
[2016-09-03] MEDS: SERTRALINE 50 MG TAB PO SCH (17:03)
--- NOTE | 2016-09-03 18:45 | PN ---
Patient is seen for followup for acute kidney injury. Her renal function has improved significantly. Patient's potassium has been elevated and is now down to 4.2. I am not sure if that was an error. Currently patient is walking with a walker with Physical Therapy. She is comfortable, not in any acute distress. Blood pressure is 102/72, heart rate 110 per minute. She is afebrile. There has not been any evidence of edema in the lower extremities. Patient does have left-sided hemiparesis. Labs show sodium 145, potassium 4.2, serum creatinine 0.8. Hemoglobin was 10.7 on 08/31/2016. ASSESSMENT: 1. Acute kidney injury, prerenal, currently resolved. 2. Hyperkalemia, possibly an error, as repeat potassium was 4.4 and patient remains with potassium in the normal range. 3. History of cerebrovascular accident with left hemiparesis. PLAN: Continue to encourage increased oral intake. Will sign off on the patient.
[2016-09-03] MEDS: PHENYTOIN ORAL SUSP 100 MG/4 ML CUP PO SCH (20:34)
[2016-09-03 22:39] VITALS: RESP 16
[2016-09-04] MEDS ORDERED: ACETAMINOPHEN TAB 325 MG TAB PO STA (00:32)
[2016-09-04] MEDS: SODIUM CHLORIDE 0.9% 1,000 ML IV SCH (05:36)
[2016-09-04 08:02] VITALS: BP 93/50; PULSE 88; TEMP 98.4
[2016-09-04] MEDS: DIVALPROEX 500 MG TABLET.DR PO SCH (09:12)
[2016-09-04] MEDS: PANTOPRAZOLE 40 MG TABLET PO SCH (09:12)
[2016-09-04] MEDS: SERTRALINE 50 MG TAB PO SCH (09:13)
[2016-09-04] MEDS: PHENYTOIN SODIUM EXTENDED 100 MG CAP PO SCH (09:13)
[2016-09-04] MEDS: FERROUS SULFATE 325 MG TAB PO SCH (09:13)
[2016-09-04] MEDS: ASPIRIN 81 MG CHEW PO SCH (09:13)
[2016-09-04] MEDS ORDERED: ACETAMINOPHEN TAB 325 MG TAB PO PRN (09:20)
[2016-09-04 09:32] LABS: Anisocytosis Slight; Basophils % (A) 1 %; CH 25.9; CHCM 32.9; Eosinophils # (A) 0.3 k/uL (0-0.7); Eosinophils % (A) 5 %; HCT 32.2 % (34.0-46.0); HDW 3.57; HGB 10.1 gm/dL (11.4-16.0); Hypochromasia Slight; Luc # (Auto) 0.11; Luc % (Auto) 2; Lymphocytes # (A) 2.6 k/uL (1.0-4.8); Lymphocytes % (A) 47 %; MCH 25.1 pg (25.0-35.0); MCHC 31.4 g/dL (31.0-37.0); MCV 79.7 fL (80.0-100.0); Mean Platelet Volume 8.8; Microcytosis Slight; Monocytes # (A) 0.6 k/uL (0-1.0); Monocytes % (A) 11 %; Neutrophils # (A) 1.9 k/uL (1.3-7.7); Neutrophils % (A) 35 %; Poikilocytosis Slight; RBC 4.04 m/uL (3.80-5.40); RDW 17.1 % (11.5-15.5); WBC 5.5 k/uL (3.8-10.6); WBC (Perox) 5.03
--- NOTE | 2016-09-04 12:53 | P.DS ---
Providers Date of admission: 08/29/16 18:14 Expected date of discharge: 09/04/16 Attending physician: Mohit Harley Consults: 08/30/16 08:13 Consult Physician Routine Consulting Provider: Mini Simon Consult Reason/Comments: renal insufficiency Do you want consulting provider notified?: Yes 09/03/16 07:24 Consult Physician Routine Consulting Provider: Dyllan Herrera Consult Reason/Comments: EGD Do you want consulting provider notified?: Yes 09/03/16 07:43 Consult Physician Routine Consulting Provider: Dyllan Herrera Consult Reason/Comments: egd today Do you want consulting provider notified?: Yes Primary care physician: [place] Course: 56-year-old presented on the day of admission to the emergency room with a chief complaint of nausea vomiting small amount of loose stool for the past 3 days. Patient was advised to come to the emergency room after she notified her family doctor. Was no blood noted in the vomit no blood noted in the stool nephrology consultation was requested. Patient was maintained on IV fluid. Creatinine on admission was 1.5. The potassium was low at 2.5. Patient has had previous episodes of acute kidney injury on her previous admissions the serum creatinine was and April 2016. Patient also has a history of a prior stroke. Patient was admitted started on IV hydration monitor closely by nephrology. On the day of discharge patient was felt to be hemodynamically stable and appropriate to proceed. It was noted the patient was hypotensive asymptomatic suspect due to medication induced antihypertensive meds were held blood pressure was monitored closely off of the antihypertensive meds if blood pressure was 100/64. Patient's discharge was held on September 02 secondary to the patient stating that she felt like she had no appetite was experiencing epigastric discomfort. Patient has a prior history of gastritis. Patient was seen by surgical service who recommended an EGD. Patient elected to undergo an EGD which she proceeded to do on the august the EGD showed a small hiatal hernia mild atrophic gastritis no acute findings surgery recommended the patient have a HIDA scan which was done it did not show any evidence for any acute or chronic cholecystitis or biliary dyskinesis on the day of discharge hemoglobin was 10.1 patient was afebrile white count 5.4. Electrolytes were within normal nursing reports have been no frequent stooling had 1 stool on the fifth and that was negative for C. diff. Patient was having no difficulty in swallowing. Off of antihypertensive meds the blood pressure was 93/50. Heart rate in the 80s. Patient was felt to be appropriate to proceed with a discharge to home Impression discharge diagnose Present on admission nausea vomiting with frequent loose stools suspect viral gastroenteritis Present on admission Acute kidney injury likely prerenal suspect due to poor oral intake Electrolyte hypokalemia corrected replaced A prior CVA resulting in left hemiparesis Hypotensive chronic History of a seizure disorder History of schizophrenia Present on admission clinical dehydration suspect due to poor oral intake with nausea vomiting frequent stooling resolved Frequent stooling C. diff negative Asymptomatic hypotension suspect due to medication antihypertensive meds on EGD on September 03 mild gastritis small hiatal hernia no acute findings HIDA scan done September 03 no acute or chronic cholecystitis or biliary dyskinesis The above dictated assessment and findings were discussed with Dr. Harley. Impression and the plan of care have been dictated as directed. Renetta Resendez nurse practitioner acting as a scribe for Dr. Harley Patient Condition at Discharge: Fair Plan - Discharge Summary New Discharge Prescriptions: Pantoprazole [Protonix] 40 mg PO AC-BID #60 tablet.dr Discharge Medication List Ferrous Sulfate [Feosol] 325 mg PO DAILY 01/03/14 [History] Phenytoin Sodium Extended [Dilantin] 30 mg PO HS 01/03/14 [History] Phenytoin Sodium Extended [Dilantin] 100 mg PO BID 01/03/14 [History] Aspirin EC [Ecotrin Low Dose] 81 mg PO DAILY 04/12/16 [History] Divalproex [Depakote] 1,000 mg PO BID 04/12/16 [History] ARIPiprazole [Abilify] 10 mg PO HS 08/29/16 [History] OLANZapine [ZyPREXA] 2.5 mg PO DAILY 08/29/16 [History] Sertraline HCl [Zoloft] 50 mg PO DAILY 08/29/16 [History] Pantoprazole [Protonix] 40 mg PO AC-BID #60 tablet. 09/04/16 [Rx] Follow up Appointment(s)/Referral(s): Mohit Harley MD [Primary Care Provider] - 1-2 days Dyllan Herrera MD [STAFF PHYSICIAN] - 1 Week Discharge Disposition: HOME SELF-CARE
[2016-09-04 15:09] LABS: Crenated RBC Present; Manual Review Performed; Spherocytes Present
[2016-09-04] MEDS ORDERED: PANTOPRAZOLE 40 MG TABLET PO SCH (17:30)
== END 2016-09-04 16:05 | disposition home or self-care (01) | DRG 683 ==
LOC: EC 13:19 → 5MS5E 18:14
PROVIDERS: ADMIT Family Medicine; ATTEND Family Medicine
PROC: 0DB68ZX Excision of Stomach, Via Natural or Artificial Opening Endoscopic, Diagnostic (ICD-10-PCS; principal; 2016-09-03 07:50)
PROC: 0DB38ZX Excision of Lower Esophagus, Via Natural or Artificial Opening Endoscopic, Diagnostic (ICD-10-PCS; principal; 2016-09-03 07:50)
DX: N17.9 Acute kidney failure, unspecified (principal); F20.0 Paranoid schizophrenia; I95.9 Hypotension, unspecified; I69.354 Hemiplegia and hemiparesis following cerebral infarction affecting left non-dominant side; E83.42 Hypomagnesemia; E03.9 Hypothyroidism, unspecified; D64.9 Anemia, unspecified; E78.5 Hyperlipidemia, unspecified; E86.0 Dehydration; E87.6 Hypokalemia; G40.909 Epilepsy, unspecified, not intractable, without status epilepticus; K29.40 Chronic atrophic gastritis without bleeding; K29.60 Other gastritis without bleeding; K44.9 Diaphragmatic hernia without obstruction or gangrene; K52.9 Noninfective gastroenteritis and colitis, unspecified; M10.9 Gout, unspecified; Z82.49 Family history of ischemic heart disease and other diseases of the circulatory system; Z87.891 Personal history of nicotine dependence; Z79.899 Other long term (current) drug therapy
CPT/HCPCS: 36415; 43239; 74000; 78227; 80048; 80053; 80299; 82150; 83605; 83690; 83735; 84132; 85025; 87324; 88305; 88342; 96360; 96361; 99285

== ENCOUNTER → 2016-09-08 | Outpatient (CLI) | payer OTHER ==
[2016-09-08 12:48] LABS: Potassium 4.5 mmol/L (3.5-5.1)
== END | disposition home or self-care (01) ==
LOC: LABWHC1 11:47
PROVIDERS: ATTEND Family Medicine
DX: I10 Essential (primary) hypertension (principal)
CPT/HCPCS: 36415; 80051; 82565; 84520

== ENCOUNTER → 2016-10-15 | Outpatient (CLI) | payer OTHER ==
[2016-10-15 11:49] LABS: Anisocytosis Slight; Aty Lym Flag Slight; CHCM 32.3; HCT 35.7 % (34.0-46.0); HDW 3.06; HGB 11.4 gm/dL (11.4-16.0); MCH 25.9 pg (25.0-35.0); MCHC 31.9 g/dL (31.0-37.0); MCV 81.2 fL (80.0-100.0); Mean Platelet Volume 8.6; WBC 7.2 k/uL (3.8-10.6); WBC (Perox) 7.15
[2016-10-15 13:09] LABS: Add Differential Manual Differential
[2016-10-15 13:11] LABS: Manual Review Performed; Nucleated Red Blood Cells 0 /100 WBC (0-0); Target Cells Present; Total Cells Counted 100
== END | disposition home or self-care (01) ==
LOC: LABWHC1 09:50
PROVIDERS: ATTEND Psychiatry & Neurology Neurology
DX: G40.209 Localization-related (focal) (partial) symptomatic epilepsy and epileptic syndromes with complex partial seizures, not intractable, without status epilepticus (principal)
CPT/HCPCS: 36415; 80164; 80185; 84450; 84460; 85025

== ENCOUNTER → 2016-10-20 | Outpatient (CLI) | payer OTHER ==
--- NOTE | 2016-10-20 11:43 | CT ---
EXAMINATION TYPE: CT abdomen pelvis wo con DATE OF EXAM: 10/20/2016 11:34 AM COMPARISON: NONE HISTORY: RLQ pain CT DLP: 736 mGycm FINDINGS: LUNG BASES: No evidence for nodule. Mild patchy basilar infiltrates seen. Correlate for possible pneu monia. LIVER/GB: Multiple small gallstones are identified. No space-occupying hepatic lesion. PANCREAS: No pancreatic mass identified. No inflammatory process seen. SPLEEN: No evidence for splenomegaly. No intrasplenic lesions seen. ADRENALS: No adrenal nodules identified. No evidence for thickening. KIDNEYS: No evidence for renal mass. No nephrolithiasis. No hydronephrosis. BOWEL: Appendix has a normal appearance. No evidence of bowel obstruction. No inflammatory process. Lymph nodes: No evidence for adenopathy greater than 1 cm. Abdominal aorta: Atheromatous changes seen. No evidence for aneurysm. Genital organs: No significant abnormality. Other: No significant abnormality. IMPRESSION: 1. NO ACUTE INTRA-ABDOMINAL PROCESS IDENTIFIED. 2. MULTIPLE SMALL GALLSTONES WITHOUT EVIDENCE FOR GALLBLADDER WALL THICKENING. 3. PATCHY DENSITIES AT THE LUNG BASES COULD REFLECT DEVELOPING INFILTRATES. CORRELATE CLINICALLY.
--- NOTE | 2016-10-20 14:39 | XR ---
EXAMINATION TYPE: XR chest 2V DATE OF EXAM: 10/20/2016 1:38 PM HISTORY: Patchy densities. REFERENCE: Previous study dated 04/30/2016. FINDINGS: The lungs appear clear. Pleural spaces are clear. Heart size is normal. IMPRESSION: NORMAL CHEST.
== END | disposition home or self-care (01) ==
LOC: LABWHC1 10:26
PROVIDERS: ATTEND Family Medicine
DX: K80.20 Calculus of gallbladder without cholecystitis without obstruction (principal); J98.4 Other disorders of lung
CPT/HCPCS: 36415; 71020; 74176; 82565; 84520

== ENCOUNTER → 2016-12-23 | Outpatient (CLI) | payer OTHER ==
[2016-12-23 16:50] LABS: Basophils % (A) 0 %; CH 25.6; CHCM 32.8; Eosinophils # (A) 0.3 k/uL (0-0.7); Eosinophils % (A) 4 %; HCT 32.1 % (34.0-46.0); HDW 3.01; HGB 10.7 gm/dL (11.4-16.0); Luc # (Auto) 0.19; Luc % (Auto) 3; Lymphocytes # (A) 3.6 k/uL (1.0-4.8); Lymphocytes % (A) 52 %; MCH 26.1 pg (25.0-35.0); MCHC 33.2 g/dL (31.0-37.0); MCV 78.6 fL (80.0-100.0); Mean Platelet Volume 7.9; Monocytes # (A) 0.6 k/uL (0-1.0); Monocytes % (A) 8 %; Neutrophils # (A) 2.3 k/uL (1.3-7.7); Neutrophils % (A) 33 %; RBC 4.08 m/uL (3.80-5.40); RDW 15.5 % (11.5-15.5); WBC (Perox) 7.04
[2016-12-23 16:57] LABS: Magnesium 1.7 mg/dL (1.6-2.3); Phosphorous 3.8 mg/dL (2.5-4.5); Potassium 3.8 mmol/L (3.5-5.1); Uric Acid 10.1 mg/dL (3.7-7.4)
[2016-12-23 17:06] LABS: % Iron Saturation 92.7 % (20-50)
== END | disposition home or self-care (01) ==
LOC: LABWHC1 16:18
PROVIDERS: ATTEND Nurse Practitioner Family
DX: D64.9 Anemia, unspecified (principal); E55.9 Vitamin D deficiency, unspecified; E21.3 Hyperparathyroidism, unspecified; M10.9 Gout, unspecified; N39.0 Urinary tract infection, site not specified; N18.3 Chronic kidney disease, stage 3 (moderate)
CPT/HCPCS: 36415; 80048; 82040; 82306; 82728; 83540; 83550; 83735; 83970; 84100; 84550; 85025

== ENCOUNTER → 2016-12-30 | Outpatient (CLI) | payer OTHER | END | disposition home or self-care (01) | LOC: LABWHC1 12:54 | PROVIDERS: ATTEND Family Medicine | DX: F31.32 Bipolar disorder, current episode depressed, moderate (principal); R56.9 Unspecified convulsions | CPT/HCPCS: 36415; 80164 ==

== ENCOUNTER 2017-01-04 07:29 | Emergency (ER) | payer OTHER ==
[2017-01-04 07:37] VITALS: RESP 18
[2017-01-04] MEDS ORDERED: ACETAMINOPHEN TAB 500 MG TAB PO STA (08:01)
--- NOTE | 2017-01-04 08:24 | ED ---
Fall HPI - General Chief Complaint: Fall Stated Complaint: FALL BACKWARDS, RT LEG AND ANKLE INJURY Time Seen by Provider: 01/04/17 07:39 Source: family Mode of arrival: wheelchair - History of Present Illness Initial Comments: 26 years old female fell on the her own property when she missed a step she is twisted her left leg and she fell no complaining about left kidney pain and left ankle pain. She didn't hit her head no headaches read no neck injury no loss of consciousness review of system is unremarkable otherwise - Related Data Home Medications Medication Instructions Recorded Confirmed Ferrous Sulfate [Feosol] 325 mg PO DAILY 01/03/14 01/04/17 Phenytoin Sodium Extended 30 mg PO HS 01/03/14 01/04/17 [Dilantin] Phenytoin Sodium Extended 100 mg PO BID 01/03/14 01/04/17 [Dilantin] Aspirin EC [Ecotrin Low Dose] 81 mg PO DAILY 04/12/16 01/04/17 Divalproex [Depakote] 1,000 mg PO BID 04/12/16 01/04/17 ARIPiprazole [Abilify] 20 mg PO HS 01/04/17 01/04/17 Allopurinol [Zyloprim] 100 mg PO DAILY 01/04/17 01/04/17 Ergocalciferol [Vitamin D2] 50,000 unit PO MO 01/04/17 01/04/17 Furosemide [Lasix] 40 mg PO DAILY 01/04/17 01/04/17 Metoprolol Tartrate [Metoprolol 100 mg PO BID 01/04/17 01/04/17 Tartrate] Potassium Chloride [Klor-Con 20] 20 meq PO Q48H 01/04/17 01/04/17 Sertraline [Zoloft] 100 mg PO DAILY 01/04/17 01/04/17 amLODIPine [Norvasc] 5 mg PO DAILY 01/04/17 01/04/17 Previous Rx's Medication Instructions Recorded Pantoprazole [Protonix] 40 mg PO AC-BID #60 tablet. 09/04/16 Allergies Allergy/AdvReac Type Severity Reaction Status Date / Time No Known Allergies Allergy Verified 01/04/17 07:37 Review of Systems ROS Statement: Those systems with pertinent positive or pertinent negative responses have been documented in the HPI. ROS Other: All systems not noted in ROS Statement are negative. Past Medical History Past Medical History: CVA/TIA, Hyperlipidemia, Hypertension, Renal Disease, Seizure Disorder Additional Past Medical History / Comment(s): ANEMIA, 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 gout, PANCREATITIS, PREVIOUSLY CHARTED" pseudoseizures".UTI, gallstones History of Any Multi-Drug Resistant Organisms: None Reported Past Surgical History: Section, Orthopedic Surgery Additional Past Surgical History / Comment(s): COILS AND STENTS TO BRAIN, repair tendons r/t gout BILATERAL FEET. Past Anesthesia/Blood Transfusion Reactions: No Reported Reaction Additional Past Anesthesia/Blood Transfusion Reaction / Comment(s): PT HAS HAD BLOOD TRANSFUSIONS FOR ANEMIA-NO REACTION. Past Psychological History: Depression, Schizophrenia Additional Psychological History / Comment(s): paranoid schizophrenia Smoking Status: Former smoker Past Alcohol Use History: None Reported Additional Past Alcohol Use History / Comment(s): STARTED SMOKING AT AGE 14, SMOKED 1PPD, QUIT >20 YEARS AGO BUT SMOKED AGAIN BRIEFLY WHEN AT [place] BUT QUIT 1.5 YERAS AGO Past Drug Use History: Cocaine - Past Family History Father Family Medical History: Cancer Additional Family Medical History / Comment(s): throat, lung, and rectal cancer Mother Family Medical History: Myocardial Infarction ([place]) Additional Family Medical History / Comment(s): stroke General Exam - General Exam Comments Initial Comments: General: The patient is awake and alert, in no distress, and does not appear acutely ill. GCS is 15 Skin: Skin is warm and dry and no rashes or lesions are noted. Eye: Pupils are equal, round and reactive to light, extra-ocular movements are intact; there is normal conjunctiva bilaterally. Ears, nose, mouth and throat: There are moist mucous membranes and no oral lesions. Neck: The neck is supple, there is no tenderness or JVD. Cardiovascular: There is a regular rate and rhythm. No murmur, rub or gallop is appreciated. Respiratory: To auscultation bilateral, no wheezing no rhonchi no distress respiratory pelletier noticed Gastrointestinal: Soft, non-distended, non-tender abdomen without masses or organomegaly noted. There is no rebound or guarding present. Bowel sounds are unremarkable. Back: There is no tenderness to palpation in the midline. There is no obvious deformity. Musculoskeletal: His left knee seems bit swollen, no focal tenderness noticed, patient is seen it hurts to extend the or reduced range of motion because of pain left ankle mildly tender over lateral malleolus foot has a generalized pain and some swelling over the dorsal surface no neurovascular compromise. Refill is fine no motor or sensory deficits Neurological: CN II-XII intact, Cranial nerves III through XII are intact. There are no obvious motor or sensory deficits. Coordination appears grossly intact. Speech is normal. Psychiatric: Cooperative, appropriate mood & affect, normal judgment. Limitations: no limitations Course Vital Signs 01/04/17 07:33 Temperature 98.0 F Pulse Rate 69 Respiratory 18 Rate Blood Pressure 97/70 O2 Sat by Pulse 98 Oximetry Disposition Clinical Impression: Left knee sprain, Ankle sprain, Foot contusion Disposition: HOME SELF-CARE Condition: Good Instructions: Fall Prevention for Older Adults (ED), Knee Sprain (ED) Additional Instructions: Cording to the patient she has a history of kidney disease she is advised to stay away from any nonsteroidal anti-inflammatory drugs advised to use Tylenol 1 g by mouth every 6 hours when necessary Referrals: Mohit Harley MD [Primary Care Provider] - 1-2 days
--- NOTE | 2017-01-04 08:53 | XR ---
EXAMINATION TYPE: XR ankle complete LT, XR foot complete LT DATE OF EXAM: 01/04/2017 CLINICAL HISTORY: Fall injury with pain TECHNIQUE: Frontal, lateral and oblique images of the left ankle and foot are obtained. COMPARISON: None. FINDINGS: Osseous structures are somewhat demineralized. There is no acute fracture/dislocation evid ent in the left ankle. The ankle mortise appears within normal limits. Mild diffuse subcutaneous daren ma is present there is mild soft tissue swelling over medial malleolus. Vascular calcification paralegal internship ior soft tissue is seen. There is no acute fracture or dislocation evident in the left foot. Flexion in the toes is noted lauren ng evaluation at this level slightly suboptimal The joint spaces in the left foot are preserved. Ove rlying soft tissue is unremarkable. IMPRESSION: There is no acute fracture or dislocation in the left ankle or foot.
--- NOTE | 2017-01-04 08:54 | XR ---
EXAMINATION TYPE: XR knee complete LT DATE OF EXAM: 01/04/2017 CLINICAL HISTORY: Left knee pain after fall injury. TECHNIQUE: Three views of the left knee are obtained. COMPARISON: None. FINDINGS: There is no acute fracture/dislocation evident in left knee. The tri-compartment joint sp aces appear within normal limits. The overlying soft tissue appears unremarkable. IMPRESSION: There is no acute fracture or dislocation in the left knee.
[2017-01-04 10:09] VITALS: BP 89/52; PULSE 75; TEMP 97.9
== END 2017-01-04 10:09 | disposition home or self-care (01) ==
LOC: EC 07:29
DX: S93.402A Sprain of unspecified ligament of left ankle, initial encounter (principal); S83.92XA Sprain of unspecified site of left knee, initial encounter; S90.32XA Contusion of left foot, initial encounter; I10 Essential (primary) hypertension; D64.9 Anemia, unspecified; G40.909 Epilepsy, unspecified, not intractable, without status epilepticus; F20.0 Paranoid schizophrenia; M10.9 Gout, unspecified; F32.9 Major depressive disorder, single episode, unspecified; Z87.891 Personal history of nicotine dependence; Z79.82 Long term (current) use of aspirin; Z79.899 Other long term (current) drug therapy; Z98.890 Other specified postprocedural states; W10.9XXA Fall (on) (from) unspecified stairs and steps, initial encounter; X50.1XXA Overexertion from prolonged static or awkward postures, initial encounter
CPT/HCPCS: 99283

== ENCOUNTER → 2017-01-06 | Outpatient (CLI) | payer OTHER ==
[2017-01-06 13:52] LABS: Bilirubin, Delta 0.3 mg/dL (0.0-0.2); Total Bilirubin 0.4 mg/dL (0.2-1.3); Total Protein 6.4 g/dL (6.3-8.2)
[2017-01-06 20:54] LABS: Hemoglobin A1C 5.5 % (4.2-6.1)
== END | disposition home or self-care (01) ==
LOC: LABWHC1 12:58
PROVIDERS: ATTEND Psychiatry & Neurology Psychiatry
DX: T50.905A Adverse effect of unspecified drugs, medicaments and biological substances, initial encounter (principal)
CPT/HCPCS: 36415; 80051; 80076; 80164; 80185; 83036; 84443

== ENCOUNTER 2017-01-28 11:20 | Day surgery (SDC) | payer OTHER ==
[2017-01-21 11:33] VITALS: BMI 22.6
[~2017-01-28 11:20] MED LIST changes: +DEXAMETHASONE SOD PHOSPHATE 10 MG/ML 1 ML VIAL IV ONE; +HEPARIN SODIUM,PORCINE 5,000 UNIT/ML 1 ML VIAL SQ ONE; +HYDROmorphone 1 MG/ML 1 ML SYRINGE IVP PRN; +LACTATED RINGERS 1,000 ML IV SCH; +MIDAZOLAM 2 MG/2 ML VIAL IV PRN; +ONDANSETRON 4 MG/2 ML VIAL IVP ONE; -REGADENOSON 0.4 MG/5 ML SYRINGE IV ONE; +SCOPOLAMINE 1.5MG/72HR PATCH TRANSDERM ONE; +ceFAZolin 2 GM in SODIUM CHLORIDE 0.9% 100 ML IVPB ONE
[2017-01-28] MEDS ORDERED: LIDOCAINE 1% 20 ML VIAL (10MG/ML) FOR IV START INTRADERMA ONE (12:52)
--- NOTE | 2017-01-28 13:11 | P.GSHP ---
History of Present Illness H&P Date: 01/28/17 Chief Complaint: Right upper Quadrant pain This a 48-year-old female said complaints of right upper quadrant pain. Patient is found have gallstones on CAT scan. Patient rents today for laparoscopic cholecystectomy for cholelithiasis. Past Medical History Past Medical History: CVA/TIA, Dementia, GERD/Reflux, Hypertension, Osteoarthritis (OA), Renal Disease, Seizure Disorder Additional Past Medical History / Comment(s): ANEMIA, 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 gout, PANCREATITIS, pseudoseizures. UTI, gallstones, LIPS AND ONE HAND SHAKES SOMETIMES. History of Any Multi-Drug Resistant Organisms: None Reported Past Surgical History: Section, Orthopedic Surgery Additional Past Surgical History / Comment(s): COILS AND STENTS TO BRAIN, repair tendons r/t gout BILATERAL FEET. Past Anesthesia/Blood Transfusion Reactions: No Reported Reaction Additional Past Anesthesia/Blood Transfusion Reaction / Comment(s): PT HAS HAD BLOOD TRANSFUSIONS FOR ANEMIA-NO REACTION. Past Psychological History: Depression, Schizophrenia Additional Psychological History / Comment(s): paranoid schizophrenia Smoking Status: Former smoker Past Alcohol Use History: None Reported Additional Past Alcohol Use History / Comment(s): STARTED SMOKING AT AGE 14, SMOKED 1PPD, QUIT >20 YEARS AGO BUT SMOKED AGAIN BRIEFLY WHEN AT [place] BUT QUIT 1.5 YERAS AGO Past Drug Use History: Cocaine Additional Drug Use History / Comment(s): No current use. Last used 15 yrs ago. - Past Family History Sister(s) Family Medical History: Myocardial Infarction ([place]) Father Family Medical History: Cancer Additional Family Medical History / Comment(s): throat, lung, and rectal cancer Mother Family Medical History: Myocardial Infarction ([place]) Additional Family Medical History / Comment(s): stroke Medications and Allergies Home Medications Medication Instructions Recorded Confirmed Type Ferrous Sulfate [Feosol] 325 mg PO DAILY 01/03/14 01/21/17 History Phenytoin Sodium Extended 30 mg PO HS 01/03/14 01/28/17 History [Dilantin] Phenytoin Sodium Extended 100 mg PO BID 01/03/14 01/21/17 History [Dilantin] Aspirin EC [Ecotrin Low Dose] 81 mg PO DAILY 04/12/16 01/21/17 History Divalproex [Depakote] 1,000 mg PO BID 04/12/16 01/21/17 History ARIPiprazole [Abilify] 20 mg PO HS 01/04/17 01/28/17 History Allopurinol [Zyloprim] 100 mg PO DAILY 01/04/17 01/28/17 History Ergocalciferol [Vitamin D2] 50,000 unit PO WE 01/04/17 01/21/17 History Furosemide [Lasix] 40 mg PO DAILY 01/04/17 01/28/17 History Metoprolol Tartrate [Metoprolol 100 mg PO BID 01/04/17 01/21/17 History Tartrate] Potassium Chloride [Klor-Con 20] 20 meq PO Q48H 01/04/17 01/28/17 History Sertraline [Zoloft] 100 mg PO QAM 01/04/17 01/21/17 History amLODIPine [Norvasc] 5 mg PO QAM 01/04/17 01/28/17 History Pantoprazole [Protonix] 40 mg PO AC-BID PRN 01/21/17 01/28/17 History Allergies Allergy/AdvReac Type Severity Reaction Status Date / Time No Known Allergies Allergy Verified 01/21/17 11:09 Surgical - Exam Vital Signs Temp Pulse Resp BP Pulse Ox 98.5 F 64 18 105/69 94 L 01/28/17 11:54 01/28/17 11:54 01/28/17 11:54 01/28/17 11:54 01/28/17 11:54 - General well developed, no distress - Eyes PERRL - ENT normal pinna - Neck no masses - Respiratory normal expansion - Cardiovascular Rhythm: regular - Abdomen Abdomen: soft, non tender Assessment and Plan Plan: Cholelithiasis Chronic cystitis We'll perform laparoscopic cholecystectomy.
[2017-01-28] MEDS ORDERED: MIDAZOLAM 2 MG/2 ML VIAL IV ONE (13:54)
[2017-01-28] MEDS ORDERED: ePHEDrine 50 MG/ML 1 ML AMP ONE (14:13)
[2017-01-28] MEDS ORDERED: GLYCOPYRROLATE 0.2 MG/ML 2 ML VIAL ONE (14:13)
[2017-01-28] MEDS ORDERED: ROCURONIUM BROMIDE 10 MG/ML 10 ML VIAL IV ONE (14:13)
[2017-01-28] MEDS ORDERED: LIDOCAINE 1% INJ 10MG/ML (20 ML MDV) ONE (14:13)
[2017-01-28] MEDS ORDERED: NEOSTIGMINE 1 MG/ML 10 ML VIAL ONE (14:13)
[2017-01-28] MEDS ORDERED: fentaNYL (PF) 50 MCG/ML 2 ML AMP ONE (14:13)
[2017-01-28] MEDS ORDERED: PROPOFOL 10 MG/ML 20 ML VIAL IV ONE (14:13)
[2017-01-28] MEDS ORDERED: SUCCINYLCHOLINE CHLORIDE 100 MG/5 ML SYR IV ONE (14:13)
[2017-01-28] MEDS ORDERED: LIDOCAINE 1%-EPI 1:100,000 20 ML VIAL SQ ONE (14:37)
--- NOTE | 2017-01-28 14:55 | P.OP ---
Date of Procedure: 01/28/17 Preoperative Diagnosis: Cholecystitis Cholelithiasis Postoperative Diagnosis: Cholecystitis Cholelithiasis Procedure(s) Performed: Laparoscopic cholecystectomy Implants: Anesthesia: EMILY Surgeon: Dyllan Herrera Estimated Blood Loss (ml): 10 Pathology: other (Gallbladder) Condition: stable Disposition: PACU Indications for Procedure: Operative Findings: Description of Procedure: The patient was placed on the operating table. The patient received a general endotracheal tube anesthesia. The patients abdomen was prepped and draped in the usual sterile fashion. Through an infraumbilical stab incision, the fascia of the anterior abdominal wall was grasped with a pair of Kochers and then the Veress needle was placed in the peritoneal cavity. Position of the Veress needle was confirmed with positive drop test. The abdomen was then insufflated. After adequate insufflation, the 10 mm trocar was placed in the peritoneal cavity. Following this the laparoscope was placed in the peritoneal cavity. The patient was placed in the head-up, right side up position and then a 5 mm trocar was placed in the right lateral and right subcostal position under direct visualization. A 8 mm trocar was placed in the epigastric position. The gallbladder was grasped in the fundus and infundibulum. Traction on the gallbladder was placed in the lateral and the cephalad positions. The triangle of Calot was visualized.. The cystic duct was bluntly dissected until the union of the cystic duct and common bile duct was seen. The cystic duct was then divided and sealed with the Harmonic scissors. A PDS Endoloop was then placed throughout the cystic duct stump. The cystic artery divided and sealed with the Harmonic scissors. The gallbladder was then removed from the liver bed using Harmonic scissors. The gallbladder was then extracted through the epigastric port site. Operative field was checked for any bleeding spots and Harmonic scissors was used to coagulate the liver bed. The abdomen was irrigated. The trocars were removed. The skin was closed using interrupted 3-0 Vicryl suture. Dermabond dressing were applied. The patient tolerated the procedure well.
[2017-01-28 15:31] VITALS: TEMP 97.4
[2017-01-28] MEDS ORDERED: LACTATED RINGERS 1,000 ML IV ONE (15:43)
[2017-01-28 16:03] VITALS: RESP 16
[2017-01-28 16:48] VITALS: BP 109/71; PULSE 78
== END 2017-01-28 17:03 | disposition home or self-care (01) ==
LOC: OR 11:20 → EEVIPCON 14:45 → OR 17:03
PROVIDERS: ATTEND Surgery
DX: K80.10 Calculus of gallbladder with chronic cholecystitis without obstruction (principal); I69.354 Hemiplegia and hemiparesis following cerebral infarction affecting left non-dominant side; K21.9 Gastro-esophageal reflux disease without esophagitis; I10 Essential (primary) hypertension; G40.909 Epilepsy, unspecified, not intractable, without status epilepticus; M10.9 Gout, unspecified; D64.9 Anemia, unspecified; F32.9 Major depressive disorder, single episode, unspecified; F20.0 Paranoid schizophrenia; Z87.891 Personal history of nicotine dependence; Z79.82 Long term (current) use of aspirin; Z79.899 Other long term (current) drug therapy
CPT/HCPCS: 47562; J2250; J1644; J1100; J0690; J2405; 88304

== ENCOUNTER → 2017-10-06 | Outpatient (CLI) | payer OTHER ==
[2017-10-06 13:08] LABS: Basophils % (A) 0 %; Eosinophils # (A) 0.2 k/uL (0-0.7); Eosinophils % (A) 3 %; HCT 32.9 % (34.0-46.0); HGB 10.5 gm/dL (11.4-16.0); Lymphocytes # (A) 3.2 k/uL (1.0-4.8); Lymphocytes % (A) 60 %; MCH 25.3 pg (25.0-35.0); MCV 79.2 fL (80.0-100.0); Mean Platelet Volume 7.9; Monocytes # (A) 0.4 k/uL (0-1.0); Monocytes % (A) 6 %; Neutrophils # (A) 1.5 k/uL (1.3-7.7); Neutrophils % (A) 28 %; Platelet Count 176 k/uL (150-450); RBC 4.15 m/uL (3.80-5.40); RDW 15.8 % (11.5-15.5); WBC 5.4 k/uL (3.8-10.6)
[2017-10-06 13:31] LABS: Phenytoin (Dilantin) 19.5 ug/mL
[2017-10-06 13:33] LABS: Valproic Acid (Depakene) 40.6 ug/mL
[2017-10-06 14:05] LABS: Target Cells Present
[2017-10-06 14:06] LABS: Poikilocytosis (M) Present
== END | disposition home or self-care (01) ==
LOC: LABWHC1 12:10
PROVIDERS: ATTEND Psychiatry & Neurology Neurology
DX: G40.209 Localization-related (focal) (partial) symptomatic epilepsy and epileptic syndromes with complex partial seizures, not intractable, without status epilepticus (principal)
CPT/HCPCS: 36415; 80164; 80185; 84450; 84460; 85025

== ENCOUNTER → 2017-10-20 | Outpatient (CLI) | payer OTHER ==
[2017-10-20 11:30] LABS: Albumin 3.8 g/dL (3.5-5.0); Calcium 9.7 mg/dL (8.4-10.2); Potassium 4.9 mmol/L (3.5-5.1); Total Bilirubin 0.4 mg/dL (0.2-1.3); Total Protein 7.5 g/dL (6.3-8.2)
[2017-10-20 11:40] LABS: HCT 34.7 % (34.0-46.0); HGB 11.5 gm/dL (11.4-16.0); MCH 25.5 pg (25.0-35.0); MCHC 33.2 g/dL (31.0-37.0); MCV 76.8 fL (80.0-100.0); Mean Platelet Volume 7.6; Microcytosis Slight; Platelet Count 205 k/uL (150-450); RBC 4.51 m/uL (3.80-5.40); RDW 15.7 % (11.5-15.5); WBC 6.1 k/uL (3.8-10.6)
[2017-10-20 13:12] LABS: Eosinophils # (M) 0.18 k/uL (0-0.7); Monocytes # (M) 0.61 k/uL (0-1.0); Neutrophils # (M) 1.77 k/uL (1.3-7.7); Neutrophils % (M) 29 %; Nucleated Red Blood Cells 0 /100 WBC (0-0); Total Cells Counted 200
[2017-10-20 18:00] LABS: Hemoglobin A1C 5.2 % (4.0-6.0)
== END | disposition home or self-care (01) ==
LOC: LABWHC1 10:23
PROVIDERS: ATTEND Nurse Practitioner
DX: F20.9 Schizophrenia, unspecified (principal); Z79.899 Other long term (current) drug therapy
CPT/HCPCS: 36415; 80053; 80061; 83036; 85025

== ENCOUNTER → 2017-11-12 | Outpatient (CLI) | payer OTHER ==
[2017-11-12 13:05] LABS: Anisocytosis Slight; Basophils % (A) 0 %; Eosinophils # (A) 0.2 k/uL (0-0.7); Eosinophils % (A) 4 %; HCT 33.7 % (34.0-46.0); Lymphocytes % (A) 56 %; MCH 25.5 pg (25.0-35.0); MCHC 32.5 g/dL (31.0-37.0); MCV 78.3 fL (80.0-100.0); Mean Platelet Volume 7.3; Monocytes # (A) 0.3 k/uL (0-1.0); Monocytes % (A) 6 %; Neutrophils # (A) 1.7 k/uL (1.3-7.7); Neutrophils % (A) 31 %; Platelet Count 232 k/uL (150-450); RDW 16.2 % (11.5-15.5); WBC 5.4 k/uL (3.8-10.6)
[2017-11-12 13:13] LABS: Calcium 9.6 mg/dL (8.4-10.2); Phenytoin (Dilantin) 17.7 ug/mL; Potassium 4.4 mmol/L (3.5-5.1); Total Bilirubin 0.3 mg/dL (0.2-1.3); Total Protein 7.4 g/dL (6.3-8.2)
[2017-11-12 13:16] LABS: Valproic Acid (Depakene) 42.2 ug/mL
[2017-11-12 14:24] LABS: Target Cells Present
[2017-11-12 14:26] LABS: Ovalocytes Present; Toxic Vacuolation Present
[2017-11-12 18:53] LABS: Hemoglobin A1C 5.3 % (4.0-6.0)
== END | disposition home or self-care (01) ==
LOC: LABWHC1 12:04
PROVIDERS: ATTEND Family Medicine
DX: N39.0 Urinary tract infection, site not specified (principal); I10 Essential (primary) hypertension; B89 Unspecified parasitic disease; R56.9 Unspecified convulsions
CPT/HCPCS: 36415; 80053; 80061; 80164; 80185; 82306; 83036; 84443; 85025

== ENCOUNTER → 2017-12-31 | Outpatient (CLI) | payer OTHER ==
[2017-12-31 13:11] LABS: Basophils % (A) 0 %; Eosinophils # (A) 0.2 k/uL (0-0.7); Eosinophils % (A) 3 %; HCT 35.3 % (34.0-46.0); HGB 11.6 gm/dL (11.4-16.0); Lymphocytes # (A) 3.7 k/uL (1.0-4.8); Lymphocytes % (A) 59 %; MCH 25.4 pg (25.0-35.0); MCHC 32.8 g/dL (31.0-37.0); MCV 77.5 fL (80.0-100.0); Mean Platelet Volume 6.6; Microcytosis Slight; Monocytes # (A) 0.3 k/uL (0-1.0); Monocytes % (A) 5 %; Neutrophils # (A) 1.9 k/uL (1.3-7.7); Neutrophils % (A) 30 %; Platelet Count 207 k/uL (150-450); RBC 4.55 m/uL (3.80-5.40); RDW 15.8 % (11.5-15.5); WBC 6.3 k/uL (3.8-10.6)
[2017-12-31 13:23] LABS: Albumin 3.9 g/dL (3.5-5.0); Calcium 9.2 mg/dL (8.4-10.2); Magnesium 1.7 mg/dL (1.6-2.3); Phosphorus 5.2 mg/dL (2.5-4.5); Potassium 4.6 mmol/L (3.5-5.1); Uric Acid 7.3 mg/dL (3.7-7.4)
[2017-12-31 18:58] LABS: Iron Saturation 32.21 (12.00-45.00)
[2017-12-31 19:10] LABS: Vitamin D 25 Hydroxy 20.7 ng/mL (30.0-100.0)
[2017-12-31 19:58] LABS: Parathyroid Hormone Intact 144.4 pg/mL (14.0-72.0)
== END | disposition home or self-care (01) ==
LOC: LABWHC1 12:16
PROVIDERS: ATTEND Nurse Practitioner Family
DX: N18.3 Chronic kidney disease, stage 3 (moderate) (principal); E55.9 Vitamin D deficiency, unspecified; M10.9 Gout, unspecified; N39.0 Urinary tract infection, site not specified; N25.81 Secondary hyperparathyroidism of renal origin
CPT/HCPCS: 36415; 80048; 82040; 82306; 82728; 83540; 83550; 83735; 83970; 84100; 84550; 85025

== ENCOUNTER 2018-01-04 11:00 | Day surgery (SDC) | payer OTHER ==
[2018-01-01 12:22] VITALS: BMI 21.7
[2018-01-04 10:53] VITALS: TEMP 98.3
[~2018-01-04 11:00] MED LIST changes: -DEXAMETHASONE SOD PHOSPHATE 10 MG/ML 1 ML VIAL IV ONE; -HEPARIN SODIUM,PORCINE 5,000 UNIT/ML 1 ML VIAL SQ ONE; -HYDROmorphone 1 MG/ML 1 ML SYRINGE IVP PRN; +LIDOCAINE 1% 20 ML VIAL (10MG/ML) FOR IV START INTRADERMA ONE; -MIDAZOLAM 2 MG/2 ML VIAL IV PRN; -ONDANSETRON 4 MG/2 ML VIAL IVP ONE; -SCOPOLAMINE 1.5MG/72HR PATCH TRANSDERM ONE; -ceFAZolin 2 GM in SODIUM CHLORIDE 0.9% 100 ML IVPB ONE
[2018-01-04] MEDS ORDERED: PROPOFOL 10 MG/ML 20 ML VIAL IV ONE (11:11)
[2018-01-04] MEDS ORDERED: LIDOCAINE 1% INJ 10MG/ML (20 ML MDV) ONE (11:11)
[2018-01-04] MEDS ORDERED: LACTATED RINGERS 1,000 ML IV ONE (11:52)
--- NOTE | 2018-01-04 11:53 | P.OP ---
Date of Procedure: 01/04/18 Preoperative Diagnosis: Colon cancer screening, family history of colon cancer in her father Postoperative Diagnosis: Same, normal colonoscopy Procedure(s) Performed: Colonoscopy Anesthesia: MAC Surgeon: Noemi Solomon Pathology: none sent Condition: stable Disposition: PACU Indications for Procedure: Family history of colon cancer in her father Operative Findings: The patient's taken to the endoscopy suite where colonoscope is passed per rectum to the cecum. She had quite a bit of difficulty with IV access on IV was started on the right foot by anesthesia. Scope is then passed per rectum to the cecum. The prep is fair. There is some thicker material which is able to be irrigated and aspirated. Grossly there was no evidence of polyp, mass lesion, ulcer, diverticuli, other mucosal abnormality. No hemorrhoidal disease was seen on retroflexion of the scope. She tolerated the procedure without difficulty as taken recovery room in satisfactory condition. She should have a repeat colonoscopy in 5 years due to family history. Plan - Discharge Summary New Discharge Prescriptions: No Action Phenytoin Sodium Extended [Dilantin] 100 mg PO BID Phenytoin Sodium Extended [Dilantin] 30 mg PO BID Divalproex [Depakote] 1,000 mg PO BID Aspirin EC [Ecotrin Low Dose] 81 mg PO DAILY amLODIPine [Norvasc] 5 mg PO QAM Sertraline [Zoloft] 100 mg PO QAM Metoprolol Tartrate [Metoprolol Tartrate] 100 mg PO BID Furosemide [Lasix] 40 mg PO DAILY ARIPiprazole [Abilify] 15 mg PO HS Discharge Medication List Phenytoin Sodium Extended [Dilantin] 30 mg PO BID 01/03/14 [History] Phenytoin Sodium Extended [Dilantin] 100 mg PO BID 01/03/14 [History] Aspirin EC [Ecotrin Low Dose] 81 mg PO DAILY 04/12/16 [History] Divalproex [Depakote] 1,000 mg PO BID 04/12/16 [History] ARIPiprazole [Abilify] 15 mg PO HS 01/04/17 [History] Furosemide [Lasix] 40 mg PO DAILY 01/04/17 [History] Metoprolol Tartrate [Metoprolol Tartrate] 100 mg PO BID 01/04/17 [History] Sertraline [Zoloft] 100 mg PO QAM 01/04/17 [History] amLODIPine [Norvasc] 5 mg PO QAM 01/04/17 [History] Discharge Disposition: HOME SELF-CARE
[2018-01-04 11:59] VITALS: BP 100/66
[2018-01-04 12:29] VITALS: PULSE 68; RESP 18
== END 2018-01-04 13:30 | disposition home or self-care (01) ==
LOC: ORWHC2ENDO 11:00
PROVIDERS: ATTEND Surgery
DX: Z12.11 Encounter for screening for malignant neoplasm of colon (principal); I10 Essential (primary) hypertension; F03.90 Unspecified dementia, unspecified severity, without behavioral disturbance, psychotic disturbance, mood disturbance, and anxiety; M19.90 Unspecified osteoarthritis, unspecified site; F32.9 Major depressive disorder, single episode, unspecified; F20.9 Schizophrenia, unspecified; M10.9 Gout, unspecified; R56.9 Unspecified convulsions; Z80.0 Family history of malignant neoplasm of digestive organs; Z79.899 Other long term (current) drug therapy; Z87.891 Personal history of nicotine dependence; Z86.73 Personal history of transient ischemic attack (TIA), and cerebral infarction without residual deficits; Z82.49 Family history of ischemic heart disease and other diseases of the circulatory system; Z79.82 Long term (current) use of aspirin
CPT/HCPCS: J2001; J2704; G0105

== ENCOUNTER → 2018-01-11 | Outpatient (CLI) | payer OTHER ==
--- NOTE | 2018-01-11 17:31 | MR ---
EXAMINATION TYPE: MR brain wo con DATE OF EXAM: 01/11/2018 COMPARISON: NONE HISTORY: Epilepsy CONTRAST: Performed utilizing 0 mL intravenous Gadavist gadolinium contrast. No venous access could be obtained. TECHNIQUE: Multiplanar, multiecho imaging on a 3.0 Charleen magnet is performed through the brain. Stud y is performed within 24 hours of arrival to the hospital. The craniovertebral junction is normal. The pituitary is normal. Diffusion-weighted imaging is performed. No abnormal hyperintensity is present to suggest an acute i ntracranial infarct or acute ischemic change. There is a large old watershed infarct in the right parietal-occipital region. Ex vacuo effect is brandy dent on the lateral ventricle. Additional periventricular white matter ischemic type changes are pres ent. An old lacunar infarct is not excluded in the inferior lateral right cerebellum. No mass effect is evident. The temporal lobes as visualized appear symmetrical in appearance. There i s some atrophy noted of the right temporal lobe compared to the left. Ventricles and sulci are slightly prominent for the patient age. Ex vacuo affect adjacent to the wate rshed infarct is evident. IMPRESSIONS: 1. Old watershed infarct right parieto-occipital region. 2. Possible old lacunar infarct right inferior lateral cerebellum. 3. No acute intracranial process.
== END | disposition home or self-care (01) ==
LOC: RADMRIMAIN 10:20
PROVIDERS: ATTEND Psychiatry & Neurology Neurology
DX: G40.209 Localization-related (focal) (partial) symptomatic epilepsy and epileptic syndromes with complex partial seizures, not intractable, without status epilepticus (principal)
CPT/HCPCS: 70551

== ENCOUNTER → 2018-03-18 | Outpatient (CLI) | payer OTHER ==
[2018-03-18 14:12] LABS: Phenytoin (Dilantin) 14.6 ug/mL; Potassium 4.9 mmol/L (3.5-5.1)
== END | disposition home or self-care (01) ==
LOC: LABWHC1 09:59 → EEVIPCON 09:59
PROVIDERS: ATTEND Family Medicine
DX: N39.0 Urinary tract infection, site not specified (principal); I10 Essential (primary) hypertension; R56.9 Unspecified convulsions
CPT/HCPCS: 36415; 80051; 80185; 82565; 84520; 87077; 87086; 87186

== ENCOUNTER → 2018-09-09 | Outpatient (CLI) | payer OTHER ==
--- NOTE | 2018-09-09 10:06 | MR ---
EXAMINATION TYPE: MR angio head wo con DATE OF EXAM: 09/09/2018 8:54 AM COMPARISON: MRI brain 01/11/2018 and 10/10/2015 HISTORY: Cerebral aneurysm Three-dimensional [id number] intracranial MRA was performed with multiple intensity projection im ages submitted and source data reviewed at the workstation. The vertebrobasilar system as well as intracranial portions of the internal carotid arteries and thei r major tributaries are patent. Luminal irregularity proximal left middle cerebral artery may reflect prior postsurgical change. Correlate clinically. I do not see evidence for sizable aneurysm or vascu lar malformation at this time. Remote insult the right cerebral hemisphere right MCA territory. IMPRESSION: 1.Luminal irregularity proximal left middle cerebral artery may reflect prior postsurgical change. Co rrelate clinically. 2. No sizable aneurysm identified at this time.
== END | disposition home or self-care (01) ==
LOC: RADMRIMAIN 08:13
PROVIDERS: ATTEND Psychiatry & Neurology Neurology
DX: I67.89 Other cerebrovascular disease (principal); Z98.890 Other specified postprocedural states
CPT/HCPCS: 70544

== ENCOUNTER → 2018-09-30 | Outpatient (CLI) | payer OTHER ==
[2018-09-30 14:09] LABS: Basophils % (A) 0 %; Eosinophils # (A) 0.3 k/uL (0-0.7); Eosinophils % (A) 6 %; HCT 35.1 % (34.0-46.0); HGB 11.1 gm/dL (11.4-16.0); Lymphocytes # (A) 2.9 k/uL (1.0-4.8); Lymphocytes % (A) 54 %; MCH 24.3 pg (25.0-35.0); MCHC 31.6 g/dL (31.0-37.0); MCV 76.8 fL (80.0-100.0); Mean Platelet Volume 9.4; Microcytosis Slight; Monocytes # (A) 0.4 k/uL (0-1.0); Monocytes % (A) 8 %; Neutrophils # (A) 1.6 k/uL (1.3-7.7); Neutrophils % (A) 30 %; RBC 4.56 m/uL (3.80-5.40); WBC 5.4 k/uL (3.8-10.6)
[2018-09-30 14:33] LABS: Phenytoin (Dilantin) 12.6 ug/mL
[2018-09-30 14:35] LABS: Valproic Acid (Depakene) 52.9 ug/mL
[2018-09-30 14:46] LABS: Platelet Count 99 k/uL (150-450)
[2018-09-30 14:47] LABS: Target Cells Present
[2018-09-30 14:48] LABS: Ovalocytes Present
== END | disposition home or self-care (01) ==
LOC: LABWHC1 12:57
PROVIDERS: ATTEND Psychiatry & Neurology Neurology
DX: G40.209 Localization-related (focal) (partial) symptomatic epilepsy and epileptic syndromes with complex partial seizures, not intractable, without status epilepticus (principal)
CPT/HCPCS: 36415; 80164; 80185; 84450; 84460; 85025

== ENCOUNTER → 2018-10-11 | Outpatient (CLI) | payer OTHER ==
[2018-10-11 13:03] LABS: Basophils % (A) 0 %; Eosinophils # (A) 0.3 k/uL (0-0.7); Eosinophils % (A) 5 %; HCT 33.2 % (34.0-46.0); HGB 10.4 gm/dL (11.4-16.0); Hypochromasia Slight; Lymphocytes # (A) 3.8 k/uL (1.0-4.8); Lymphocytes % (A) 66 %; MCH 24.6 pg (25.0-35.0); MCHC 31.3 g/dL (31.0-37.0); MCV 78.4 fL (80.0-100.0); Mean Platelet Volume 8.2; Monocytes # (A) 0.3 k/uL (0-1.0); Monocytes % (A) 5 %; Neutrophils # (A) 1.4 k/uL (1.3-7.7); Neutrophils % (A) 23 %; Platelet Count 146 k/uL (150-450); RBC 4.23 m/uL (3.80-5.40); RDW 15.8 % (11.5-15.5); WBC 5.9 k/uL (3.8-10.6)
[2018-10-11 18:45] LABS: Valproic Acid (Depakene) 53.5 ug/mL (50.0-100.0)
[2018-10-11 19:00] LABS: Phenytoin (Dilantin) 12.9 ug/mL (10.0-20.0)
[2018-10-11 19:16] LABS: Albumin 3.7 g/dL (3.80-4.90); Albumin/Globulin Ratio 1.23 (1.60-3.17); Anion Gap 9.4 mmol/L (4.00-12.00); Calcium 8.7 mg/dL (8.7-10.3); Carbon Dioxide 23.6 mmol/L (21.6-31.8); Potassium 4.5 mmol/L (3.5-5.5); T4, Free (Free Thyroxine) 0.7 ng/dL (0.80-1.80); Total Bilirubin 0.2 mg/dL (0.3-1.2); Total Protein 6.7 g/dL (6.2-8.2)
[2018-10-11 20:41] LABS: Hemoglobin A1C 5.7 % (4.0-6.0)
== END ==
LOC: LABWHC1 11:30
PROVIDERS: ATTEND Psychiatry & Neurology Neurology
DX: G40.209 Localization-related (focal) (partial) symptomatic epilepsy and epileptic syndromes with complex partial seizures, not intractable, without status epilepticus (principal); F20.9 Schizophrenia, unspecified; Z79.899 Other long term (current) drug therapy
CPT/HCPCS: 36415; 80053; 80061; 80164; 80185; 83036; 84439; 84443; 85025

== ENCOUNTER → 2018-12-06 | Outpatient (CLI) | payer OTHER ==
--- NOTE | 2018-12-06 12:56 | XR ---
EXAMINATION TYPE: XR foot complete bilateral DATE OF EXAM: 12/06/2018 COMPARISON: Left foot 01/04/2017 HISTORY: 58-year-old female bilateral chronic foot pain TECHNIQUE: 3 views each side FINDINGS: Left: Generalized osteopenia. No acute fracture, subluxation, dislocation seen. Vascular calcifications are demonstrated. Slightly flattened appearance to the calcaneus is unchanged from 2017. It could be pro jectional or could be secondary to chronic posttraumatic deformity. No acute fracture, subluxation, d islocation. Right: Generalized osteopenia. No acute fracture, subluxation, or dislocation. Vascular calcifications sugge st underlying diabetes and/or chronic kidney disease. IMPRESSION: 1. Generalized osteopenia on both sides. Also, vascular calcifications suggest underlying diabetes an d/or chronic kidney disease. 2. Somewhat flattened appearance to the left calcaneus similar to 01/04/2017 could be projectional or secondary to a remote posttraumatic deformity. 3. No acute osseous abnormality seen on either side.
[2018-12-06 16:08] LABS: Anion Gap 10.8 mmol/L (4.00-12.00); Carbon Dioxide 24.2 mmol/L (21.6-31.8); Potassium 3.7 mmol/L (3.5-5.5); Uric Acid 9.5 mg/dL (2.9-7.7)
== END | disposition home or self-care (01) ==
LOC: LABWHC1 09:53
PROVIDERS: ATTEND Family Medicine
DX: M85.872 Other specified disorders of bone density and structure, left ankle and foot (principal); M85.871 Other specified disorders of bone density and structure, right ankle and foot; M25.872 Other specified joint disorders, left ankle and foot; M25.871 Other specified joint disorders, right ankle and foot; I10 Essential (primary) hypertension; B89 Unspecified parasitic disease; Z79.899 Other long term (current) drug therapy
CPT/HCPCS: 36415; 80051; 82565; 84520; 84550; 85652

== ENCOUNTER → 2018-12-23 | Outpatient (CLI) | payer OTHER | END | disposition home or self-care (01) | LOC: RADUSWWP 09:03 | PROVIDERS: ATTEND Family Medicine | DX: I70.213 Atherosclerosis of native arteries of extremities with intermittent claudication, bilateral legs (principal) | CPT/HCPCS: 93923 ==

== ENCOUNTER → 2019-01-18 | Outpatient (CLI) | payer OTHER ==
[2019-01-18 13:53] LABS: Appearance,Urine Cloudy (Clear); Bacteria,Urine Occasional /hpf; Bilirubin,Urine Negative (Negative); Blood,Urine Negative (Negative); Color,Urine Yellow; Glucose,Urine (UA) Negative (Negative); Hyaline Casts,Urine 1 /lpf (0-2); Ketones,Urine Negative (Negative); Leukocyte Esterase,Urine Large (Negative); Nitrite,Urine Negative (Negative); PH, Urine 5.5 (5.0-8.0); Protein,Urine Negative (Negative); RBC,Urine 1 /hpf (0-5); Specific Gravity,Urine 1.012 (1.001-1.035); Squamous Epithelial Cell,Urine <1 /hpf (0-4); Urobilinogen,Urine <2.0 mg/dL (<2.0); WBC,Urine 179 /hpf (0-5)
[2019-01-18 21:07] LABS: African American GFR (CKD) 70.9 (60.0-200.0); Albumin 3.9 g/dL (3.80-4.90); Albumin/Globulin Ratio 1.18 (1.60-3.17); Calcium 9.2 mg/dL (8.7-10.3); Globulin 3.3 g/dL (1.6-3.3); Potassium 4.8 mmol/L (3.5-5.5); Total Bilirubin 0.3 mg/dL (0.3-1.2); Total Protein 7.2 g/dL (6.2-8.2)
== END | disposition home or self-care (01) ==
LOC: LABWHC1 12:34
PROVIDERS: ATTEND Family Medicine
DX: N39.0 Urinary tract infection, site not specified (principal); Z79.899 Other long term (current) drug therapy
CPT/HCPCS: 36415; 80053; 81001; 87086

== ENCOUNTER → 2019-04-27 | Outpatient (CLI) | payer OTHER ==
[2019-04-27 13:03] LABS: Basophils # (A) 0.1 k/uL (0-0.2); Basophils % (A) 1 %; Eosinophils # (A) 0.4 k/uL (0-0.7); Eosinophils % (A) 7 %; HGB 11.9 gm/dL (11.4-16.0); Hypochromasia Slight; Lymphocytes # (A) 3.7 k/uL (1.0-4.8); Lymphocytes % (A) 58 %; MCH 24.3 pg (25.0-35.0); MCHC 30.5 g/dL (31.0-37.0); MCV 79.5 fL (80.0-100.0); Mean Platelet Volume 7.3; Monocytes # (A) 0.3 k/uL (0-1.0); Monocytes % (A) 5 %; Neutrophils # (A) 1.7 k/uL (1.3-7.7); Neutrophils % (A) 27 %; Platelet Count 180 k/uL (150-450); RDW 15.6 % (11.5-15.5); WBC 6.4 k/uL (3.8-10.6)
== END | disposition home or self-care (01) ==
LOC: LABWHC1 11:30
PROVIDERS: ATTEND Psychiatry & Neurology Neurology
DX: G40.209 Localization-related (focal) (partial) symptomatic epilepsy and epileptic syndromes with complex partial seizures, not intractable, without status epilepticus (principal)
CPT/HCPCS: 36415; 80164; 80185; 84460; 85025

== ENCOUNTER → 2019-07-14 | Outpatient (CLI) | payer OTHER ==
[2019-07-14 15:16] LABS: Anisocytosis Slight; HCT 35.6 % (34.0-46.0); HGB 11.3 gm/dL (11.4-16.0); Hypochromasia Slight; MCHC 31.8 g/dL (31.0-37.0); MCV 78.5 fL (80.0-100.0); Mean Platelet Volume 11.5; RBC 4.54 m/uL (3.80-5.40); WBC 6.7 k/uL (3.8-10.6)
[2019-07-14 15:25] LABS: Platelet Count 95 k/uL (150-450)
[2019-07-14 19:43] LABS: African American GFR (CKD) 39.9 (60.0-200.0); Albumin 4.1 g/dL (3.80-4.90); Albumin/Globulin Ratio 1.41 (1.60-3.17); Anion Gap 10.8 mmol/L (4.00-12.00); BUN/Creat Ratio 22.5 Ratio (12.00-20.00); Calcium 9.3 mg/dL (8.7-10.3); Carbon Dioxide 24.2 mmol/L (21.6-31.8); Chol/HDL Ratio 3.48; Globulin 2.9 g/dL (1.6-3.3); Non-African American GFR(CKD) 34.4 (60.0-200.0); Potassium 5.3 mmol/L (3.5-5.5); Total Bilirubin 0.3 mg/dL (0.2-1.2); Uric Acid 3.5 mg/dL (2.9-7.7)
[2019-07-14 19:47] LABS: Phenytoin (Dilantin) 21.2 ug/mL (10.0-20.0)
== END | disposition home or self-care (01) ==
LOC: LABWHC1 13:16
PROVIDERS: ATTEND Family Medicine
DX: G40.209 Localization-related (focal) (partial) symptomatic epilepsy and epileptic syndromes with complex partial seizures, not intractable, without status epilepticus (principal); M10.9 Gout, unspecified; N39.0 Urinary tract infection, site not specified; I10 Essential (primary) hypertension; Z79.899 Other long term (current) drug therapy
CPT/HCPCS: 36415; 80053; 80061; 80164; 80185; 83036; 84443; 84550; 85027; 87086

== ENCOUNTER → 2019-07-18 | Outpatient (CLI) | payer OTHER ==
[2019-07-18 15:47] LABS: Mean Platelet Volume 8.5; Platelet Count 100 k/uL (150-450)
[2019-07-18 16:00] LABS: Phenytoin (Dilantin) 18.9 ug/mL
[2019-07-18 16:02] LABS: Valproic Acid (Depakene) 64.5 ug/mL
== END | disposition home or self-care (01) ==
LOC: LABWHC1 14:56
PROVIDERS: ATTEND Psychiatry & Neurology Neurology
DX: G40.209 Localization-related (focal) (partial) symptomatic epilepsy and epileptic syndromes with complex partial seizures, not intractable, without status epilepticus (principal)
CPT/HCPCS: 36415; 80164; 80185; 85049

== ENCOUNTER → 2019-08-05 | Outpatient (CLI) | payer OTHER ==
[2019-08-05 14:10] LABS: Anisocytosis Slight; Basophils # (A) 0.1 k/uL (0-0.2); Basophils % (A) 2 %; Eosinophils # (A) 0.6 k/uL (0-0.7); Eosinophils % (A) 8 %; HCT 31.2 % (34.0-46.0); Hypochromasia Moderate; Lymphocytes # (A) 4.1 k/uL (1.0-4.8); Lymphocytes % (A) 58 %; MCHC 31.2 g/dL (31.0-37.0); Mean Platelet Volume 10.8; Microcytosis Slight; Monocytes # (A) 0.4 k/uL (0-1.0); Monocytes % (A) 6 %; Neutrophils # (A) 1.8 k/uL (1.3-7.7); Neutrophils % (A) 25 %; Poikilocytosis Slight; RBC 3.89 m/uL (3.80-5.40); RDW 19.4 % (11.5-15.5); WBC 7.1 k/uL (3.8-10.6)
[2019-08-05 14:11] LABS: HGB 9.7 gm/dL (11.4-16.0); Platelet Count 158 k/uL (150-450)
[2019-08-05 15:24] LABS: Target Cells Present
[2019-08-05 19:07] LABS: Valproic Acid (Depakene) 35.6 ug/mL (50.0-100.0)
[2019-08-05 19:50] LABS: Phenytoin (Dilantin) 13.1 ug/mL (10.0-20.0)
== END | disposition home or self-care (01) ==
LOC: LABWHC1 12:40
PROVIDERS: ATTEND Psychiatry & Neurology Neurology
DX: G40.209 Localization-related (focal) (partial) symptomatic epilepsy and epileptic syndromes with complex partial seizures, not intractable, without status epilepticus (principal)
CPT/HCPCS: 36415; 80164; 80185; 84460; 85025

== ENCOUNTER → 2019-09-23 | Outpatient (CLI) | payer OTHER ==
--- NOTE | 2019-09-23 14:47 | XR ---
EXAMINATION TYPE: XR foot complete LT DATE OF EXAM: 09/23/2019 CLINICAL HISTORY: Left foot pain. History of gout. TECHNIQUE: Frontal, lateral, and oblique images of the left foot are obtained. COMPARISON: 12/06/2018 FINDINGS: There is diffuse osseous demineralization. There is osseous deformity of the proximal phal anx of the first digit however no cortical erosions are seen or periosteal reaction. There is no acut e fracture/dislocation evident in the left foot. The joint spaces in the left foot appear within nor mal limits. The overlying soft tissue appears unremarkable. Atherosclerosis is seen of the small ves sels of the ankle and foot. IMPRESSION: No ulcerations or periosteal reaction in this patient with gout. Chronic appearing deform ity of the left first proximal phalanx without acute fracture.
== END | disposition home or self-care (01) ==
LOC: LABWHC1 11:30
PROVIDERS: ATTEND Family Medicine
DX: M21.6X2 Other acquired deformities of left foot (principal); M10.9 Gout, unspecified
CPT/HCPCS: 36415; 84550; 85652

== ENCOUNTER → 2020-01-31 | Outpatient (CLI) | payer OTHER ==
[2020-01-31 20:05] LABS: African American GFR (CKD) 51.3 (60.0-200.0); Non-African American GFR(CKD) 44.2 (60.0-200.0); Potassium 4.5 mmol/L (3.5-5.5)
== END | disposition home or self-care (01) ==
LOC: LABWHC1 14:37
PROVIDERS: ATTEND Family Medicine
DX: I10 Essential (primary) hypertension (principal)
CPT/HCPCS: 36415; 80051; 82565; 84520

== ENCOUNTER 2020-02-05 17:09 | Emergency (ER) | payer OTHER ==
--- NOTE | 2020-02-05 18:21 | ED ---
Female Urogenital HPI - General Chief complaint: Urogenital Stated complaint: Bladder infection Time Seen by Provider: 02/05/20 17:15 Source: patient Mode of arrival: wheelchair Limitations: no limitations - History of Present Illness Initial comments: 59-year-old female presenting for dysuria or right-sided pain. Patient states that she was diagnosed 2 days ago with a urinary tract infection. She states she is prescribed antibiotics 2 days ago but yesterday after culture results she was prescribed a different antibiotic and has taken a total of 2 doses of the new medication that she does not know the name of. Patient states a few days prior she was experiencing pain with urination. Patient denies any fevers she denies any general malaise or chills but states that today she developed some right-sided flank pain. Patient admits to some associated nausea and one episode of vomiting. State vomiting has been controlled since last episode. D enies abdominal pain, diarrhea. Patient denies any history of kidney stones or noting any hematuria. Patient denies any chest pain shortness of breath patient has no additional complaints when pain persisted she was concerned that there are tract infection was worsening and came to the ER for evaluation.Upon arrival she appears well nontoxic and in no acuted distress. - Related Data Home Medications Medication Instructions Recorded Confirmed Phenytoin Sodium Extended 30 mg PO BID 01/03/14 01/04/18 [Dilantin] Phenytoin Sodium Extended 100 mg PO BID 01/03/14 01/04/18 [Dilantin] Aspirin EC [Ecotrin Low Dose] 81 mg PO DAILY 04/12/16 01/04/18 Divalproex [Depakote] 1,000 mg PO BID 04/12/16 01/04/18 ARIPiprazole [Abilify] 15 mg PO HS 01/04/17 01/04/18 Furosemide [Lasix] 40 mg PO DAILY 01/04/17 01/04/18 Metoprolol Tartrate 100 mg PO BID 01/04/17 01/04/18 Sertraline [Zoloft] 100 mg PO QAM 01/04/17 01/04/18 amLODIPine [Norvasc] 5 mg PO QAM 01/04/17 01/04/18 Allergies Allergy/AdvReac Type Severity Reaction Status Date / Time No Known Allergies Allergy Verified 02/05/20 17:14 Review of Systems ROS Statement: Those systems with pertinent positive or pertinent negative responses have been documented in the HPI. ROS Other: All systems not noted in ROS Statement are negative. 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 gout, PANCREATITIS, pseudoseizures. UTI, gallstones, LIPS AND ONE HAND SHAKES SOMETIMES. History of Any Multi-Drug Resistant Organisms: ESBL Date of last positivie culture/infection: 03/18/18 ESBL E.coli MDRO Source:: Urine Past Surgical History: Section, Orthopedic Surgery Additional Past Surgical History / Comment(s): COILS AND STENTS TO BRAIN, repair tendons r/t gout BILATERAL FEET. Past Anesthesia/Blood Transfusion Reactions: No Reported Reaction Additional Past Anesthesia/Blood Transfusion Reaction / Comment(s): PT HAS HAD BLOOD TRANSFUSIONS FOR ANEMIA-NO REACTION. Past Psychological History: Depression, Schizophrenia Smoking Status: Former smoker Past Alcohol Use History: None Reported Past Drug Use History: Cocaine - Past Family History Sister(s) Family Medical History: Myocardial Infarction ([place]) Father Family Medical History: Cancer Additional Family Medical History / Comment(s): throat, lung, and rectal cancer Mother Family Medical History: Myocardial Infarction ([place]) Additional Family Medical History / Comment(s): stroke General Exam - General Exam Comments Initial Comments: General: The patient is awake and alert, in no distress Eye: Pupils are equal, round and reactive to light, extra-ocular movements are intact. No nystagmus. There is normal conjunctiva bilaterally. No signs of icterus. Ears, nose, mouth and throat: There are moist mucous membranes and no oral lesions. Cardiovascular: There is a regular rate and rhythm. No murmur, rub or gallop is appreciated. Respiratory: Lungs are clear to auscultation, respirations are non-labored, breath sounds are equal. No wheezes, stridor, rales, or rhonchi. Gastrointestinal: Soft, non-distended, non-tender abdomen without masses or organomegaly noted. There is no rebound or guarding present. No CVA tenderness. Musculoskeletal: Normal ROM, no tenderness. Strength 5/5. Sensation intact. Pulses equal bilaterally 2+. Neurological: A&O x 3. CN II-XII intact grossly, There are no obvious motor or sensory deficits. Coordination appears grossly intact. Speech is normal. Skin: Skin is warm and dry and no rashes or lesions are noted. Psychiatric: Cooperative, appropriate mood & affect, normal judgment. Limitations: no limitations Course Vital Signs 02/05/20 02/05/20 02/05/20 17:11 19:03 19:48 Temperature 99.2 F 98.7 F Pulse Rate 64 59 L 60 Respiratory 20 16 16 Rate Blood Pressure 127/82 138/88 140/81 O2 Sat by Pulse 100 100 99 Oximetry 02/05/20 21:37 Temperature 98.4 F Pulse Rate 66 Respiratory 16 Rate Blood Pressure 126/79 O2 Sat by Pulse 98 Oximetry Medical Decision Making - Medical Decision Making Patient presenting for dysuria which is improving and now new right flank pain. On CT there is evidence of a cyst, that appears new from previous studies. T his may be a source the pain there is no evidence of obstructing stone. Patient urine consistent wtih infection, but per patient she has only taken two doses of culture dependent antibiotics. Culture not on file at this hospital. Patient will have urine cultured today. I discussed the case with attending provider Dr. Velasco who reviewed imaging/labs and is agreeable to discharge of patient with PCP f/u for cyst and infection. Patient is aware of cyst findings and importance of closely following this. I discussed at length with patient and family member at beside the importance of return for increasing pain, fevers, nausea, or vomiting. Patient verbalized understanding as did family member and patient was discharged appearing well. - Lab Data Result diagrams: 02/05/20 18:51 02/05/20 18:51 Lab Results 02/05/20 02/05/20 02/05/20 Range/Units 18:51 18:51 19:14 WBC 7.5 (3.8-10.6) k/uL RBC 4.34 (3.80-5.40) m/uL Hgb 10.7 L (11.4-16.0) gm/dL Hct 34.9 (34.0-46.0) % MCV 80.3 (80.0-100.0) fL MCH 24.7 L (25.0-35.0) pg MCHC 30.8 L (31.0-37.0) g/dL RDW 16.0 H (11.5-15.5) % Plt Count 196 (150-450) k/uL Neutrophils % 32 % Lymphocytes % 56 % Monocytes % 5 % Eosinophils % 5 % Basophils % 0 % Neutrophils # 2.4 (1.3-7.7) k/uL Lymphocytes # 4.2 (1.0-4.8) k/uL Monocytes # 0.4 (0-1.0) k/uL Eosinophils # 0.4 (0-0.7) k/uL Basophils # 0.0 (0-0.2) k/uL Hypochromasia Slight Sodium 139 (137-145) mmol/L Potassium 4.0 (3.5-5.1) mmol/L Chloride 111 H (98-107) mmol/L Carbon Dioxide 17 L (22-30) mmol/L Anion Gap 11 mmol/L BUN 27 H (7-17) mg/dL Creatinine 1.40 H (0.52-1.04) mg/dL Est GFR (CKD-EPI)AfAm 47 (>60 ml/min/1.73 sqM) Est GFR (CKD-EPI)NonAf 41 (>60 ml/min/1.73 sqM) Glucose 98 (74-99) mg/dL Calcium 9.4 (8.4-10.2) mg/dL Total Bilirubin 0.3 (0.2-1.3) mg/dL AST 27 (14-36) U/L ALT 16 (4-34) U/L Alkaline Phosphatase 164 H (38-126) U/L Total Protein 7.7 (6.3-8.2) g/dL Albumin 4.2 (3.5-5.0) g/dL Urine Color Yellow Urine Appearance Cloudy H (Clear) Urine pH 6.0 (5.0-8.0) Ur Specific Adams 1.015 (1.001-1.035) Urine Protein Trace H (Negative) Urine Glucose (UA) Negative (Negative) Urine Ketones Negative (Negative) Urine Blood Negative (Negative) Urine Nitrite Negative (Negative) Urine Bilirubin Negative (Negative) Urine Urobilinogen <2.0 (<2.0) mg/dL Ur Leukocyte Esterase Moderate H (Negative) Urine RBC 4 (0-5) /hpf Urine WBC 13 H (0-5) /hpf Ur Squamous Epith Cells 7 H (0-4) /hpf Urine Bacteria Rare H (None) /hpf Urine Mucus Rare H (None) /hpf Disposition Clinical Impression: Cyst of right kidney, Right flank pain, Dysuria Disposition: HOME SELF-CARE Condition: Good Instructions (If sedation given, give patient instructions): Urinary Tract Infection in Women (ED) Additional Instructions: Please use medication as discussed. Please follow-up with family doctor in the next 2 days, if pain when you pee continues, develop fever or increasing flank pain return to the ER. Please follow-up with fahad for your renal cyst and arrange appropriate outpatient follow-up. Please return to emergency room if the symptoms increase or worsen or for any other concerns. Is patient prescribed a controlled substance at d/c from ED?: No Referrals: Mohit Harley MD [Primary Care Provider] - 1-2 days Time of Disposition: 19:26
[2020-02-05 19:00] LABS: Basophils % (A) 0 %; Eosinophils # (A) 0.4 k/uL (0-0.7); Eosinophils % (A) 5 %; HCT 34.9 % (34.0-46.0); HGB 10.7 gm/dL (11.4-16.0); Hypochromasia Slight; Lymphocytes # (A) 4.2 k/uL (1.0-4.8); Lymphocytes % (A) 56 %; MCH 24.7 pg (25.0-35.0); MCHC 30.8 g/dL (31.0-37.0); MCV 80.3 fL (80.0-100.0); Monocytes # (A) 0.4 k/uL (0-1.0); Monocytes % (A) 5 %; Neutrophils # (A) 2.4 k/uL (1.3-7.7); Neutrophils % (A) 32 %; Platelet Count 196 k/uL (150-450); RBC 4.34 m/uL (3.80-5.40); WBC 7.5 k/uL (3.8-10.6)
--- NOTE | 2020-02-05 19:04 | CT ---
EXAMINATION TYPE: CT abdomen pelvis wo con DATE OF EXAM: 02/05/2020 COMPARISON: 10/20/2016 HISTORY: low abdominal pain, recent bladder infection CT DLP: 449.4 mGycm Automated exposure control for dose reduction was used. Images were obtained from the diaphragm to the floor the pelvis with no contrast. There is some interstitial infiltrate and atelectasis in both lower lobes. There is no pleural effusi on. Heart size is normal. There is no pericardial effusion. There are multiple calcified splenic granulomata. Liver shows no focal defect. Stomach is intact. The bile ducts are not dilated. There is no evidence of pancreatic mass. Gallbladder appears contracted. There is no adrenal mass. Kidneys have normal size. There is one similar rounded higher density area at the lower pole right kidney that is probably cortical cysts that contains calcium.. There is no hy dronephrosis. Ureters are not dilated. There is no retroperitoneal adenopathy. Bladder distends tamera hly. There is no inguinal hernia. There is atherosclerotic vascular calcification. There are numerous phleboliths in the pelvis. Uterus is anteverted. I see no pelvic mass. Appendix is not definitely se en. There is no sign of thickened appendix. Terminal ileum appears normal. Lumbar vertebra have normal alignment. There is 35% anterior wedging of L2 vertebral body that appear s old. The bony pelvis appears intact. Hip joints appear intact. IMPRESSION: Old compression fracture of L2. Atherosclerotic vascular disease. Appendix not seen. No sign of thick ened appendix. Atypical right renal cortical cyst. This appears new compared to old CT scan and follow-up recommende d to show stability. Ultrasound might be helpful to exclude a solid lesion. Old granulomatous disease.
[2020-02-05 19:07] VITALS: RESP 16
[2020-02-05 19:12] LABS: Albumin 4.2 g/dL (3.5-5.0); Calcium 9.4 mg/dL (8.4-10.2); Total Bilirubin 0.3 mg/dL (0.2-1.3); Total Protein 7.7 g/dL (6.3-8.2)
[2020-02-05] MEDS ORDERED: cefTRIAXone IN SWFI 1,000 MG/10 ML SYRINGE IVP STA (19:29)
[2020-02-05 19:40] LABS: Appearance,Urine Cloudy (Clear); Bacteria,Urine Rare /hpf; Bilirubin,Urine Negative (Negative); Blood,Urine Negative (Negative); Color,Urine Yellow; Glucose,Urine (UA) Negative (Negative); Ketones,Urine Negative (Negative); Leukocyte Esterase,Urine Moderate (Negative); Mucus,Urine Rare /hpf; Nitrite,Urine Negative (Negative); Protein,Urine Trace (Negative); RBC,Urine 4 /hpf (0-5); Specific Gravity,Urine 1.015 (1.001-1.035); Squamous Epithelial Cell,Urine 7 /hpf (0-4); Urobilinogen,Urine <2.0 mg/dL (<2.0); WBC,Urine 13 /hpf (0-5)
[2020-02-05] MEDS ORDERED: KETOROLAC 30 MG/ML 1 ML VIAL IVP STA (19:50)
[2020-02-05] MEDS ORDERED: SODIUM CHLORIDE 0.9% 1,000 ML IV STA (19:50)
[2020-02-05 21:42] VITALS: BP 126/79; PULSE 66; TEMP 98.4
== END 2020-02-05 21:52 | disposition home or self-care (01) ==
LOC: EC 17:09
DX: N28.1 Cyst of kidney, acquired (principal); F32.9 Major depressive disorder, single episode, unspecified; Z79.82 Long term (current) use of aspirin; Z79.899 Other long term (current) drug therapy; Z87.891 Personal history of nicotine dependence; Z86.73 Personal history of transient ischemic attack (TIA), and cerebral infarction without residual deficits
CPT/HCPCS: 36415; 80053; 85025; 81001; 87086; 74176; 99284; 96374; 96375; 96361 ×2; J0696; J1885

== ENCOUNTER 2020-02-09 11:15 | Inpatient (IN) | payer OTHER ==
[2020-02-09 12:57] LABS: HCT 32.9 % (34.0-46.0); HGB 10.1 gm/dL (11.4-16.0); Hypochromasia Slight; MCH 24.7 pg (25.0-35.0); MCHC 30.7 g/dL (31.0-37.0); MCV 80.5 fL (80.0-100.0); Mean Platelet Volume 8.3; Platelet Count 191 k/uL (150-450); RBC 4.09 m/uL (3.80-5.40); RDW 15.9 % (11.5-15.5); WBC 5.7 k/uL (3.8-10.6)
[2020-02-09 13:06] LABS: Albumin 3.9 g/dL (3.5-5.0); Calcium 9.1 mg/dL (8.4-10.2); Potassium 4.8 mmol/L (3.5-5.1); Total Bilirubin 0.3 mg/dL (0.2-1.3); Total Protein 7.1 g/dL (6.3-8.2)
[2020-02-09 14:00] LABS: Eosinophils # (M) 0.57 k/uL (0-0.7); Lymphocytes # (M) 3.82 k/uL (1.0-4.8); Monocytes # (M) 0.29 k/uL (0-1.0); Neutrophils # (M) 1.08 k/uL (1.3-7.7); Neutrophils % (M) 19 %; Nucleated Red Blood Cells 0 /100 WBC (0-0); Total Cells Counted 200
[2020-02-09 14:02] LABS: Target Cells Present
--- NOTE | 2020-02-09 14:13 | CT ---
EXAMINATION TYPE: CT chest wo con DATE OF EXAM: 02/09/2020 COMPARISON: Correlation CT abdomen 02/05/2020 HISTORY: 59-year-old female Abnormal infiltrates on recent ct abdomen TECHNIQUE: Contiguous axial scanning of the chest without IV contrast. Coronal and sagittal reconstru ctions performed. CT DLP: 262.2 mGycm Automated exposure control for dose reduction was used. FINDINGS: Heart normal size without pericardial effusion. LAD and RCA coronary artery calcifications are presen t. Aorta normal caliber with conventional arch vessel branching anatomy. No thoracic lymphadenopathy by CT size criteria. Prominent dependent atelectasis. There is some mild posterior basilar groundglass and mild reticulati ons in the lower lungs redemonstrated. Otherwise, no consolidation or pleural effusion. No riddhi marlyn ycombing or cystic change. No tree-in-bud opacities or centrilobular nodularity. Visualized upper abdomen shows calcified granulomas within the spleen. Bones: Superior endplate deformity of L2 is age indeterminate but new from 10/20/2016, still suspected chronic. Minimal retropulsion into the ventral spinal canal. IMPRESSION: 1. PATCHY GROUNDGLASS AND MILD SUBPLEURAL RETICULATIONS REDEMONSTRATED AT THE POSTERIOR LUNG BASES. T HERE IS LIKELY A PROMINENT COMPONENT OF DEPENDENT ATELECTASIS. SOME SUPERIMPOSED INTERSTITIAL FIBROSI S IS SUSPECTED. CONSIDER A 3-6 MONTH FOLLOW-UP AFTER TRAINING THE PATIENT TO USE AN INCENTIVE SPIROME TER. CHANGES HAVE NOT SIGNIFICANTLY PROGRESSED FROM 10/20/2016. 2. L2 SUPERIOR ENDPLATE DEFORMITY, AGE INDETERMINATE, LIKELY CHRONIC BUT NEW FROM 10/20/2016. MINIMAL RETROPULSION INTO THE VENTRAL SPINAL CANAL.
[2020-02-09] MEDS: HYDROcodone/APAP 5-325MG 1 EACH TAB PO PRN ×2 (15:46→20:17)
[2020-02-09] MEDS: SODIUM CHLORIDE 0.9% 1,000 ML IV SCH (17:07)
[2020-02-09] MEDS: METOPROLOL TARTRATE 50 MG TAB PO SCH (20:14)
[2020-02-09] MEDS: PHENYTOIN SODIUM EXTENDED 100 MG CAP PO SCH (20:14)
[2020-02-09] MEDS: DIVALPROEX 500 MG TABLET.DR PO SCH (20:14)
[2020-02-09] MEDS: ARIPiprazole 15 MG TAB PO SCH (20:14)
[2020-02-09] MEDS ORDERED: cefTRIAXone 1,000 MG VIAL (IM USE) IM SCH (21:00)
[2020-02-09] MEDS: PHENYTOIN ORAL SUSP 100 MG/4 ML CUP PO SCH (21:18)
[2020-02-09 23:04] LABS: Appearance,Urine Clear (Clear); Bilirubin,Urine Negative (Negative); Blood,Urine Negative (Negative); Color,Urine Colorless; Glucose,Urine (UA) Negative (Negative); Ketones,Urine Negative (Negative); Leukocyte Esterase,Urine Negative (Negative); Nitrite,Urine Negative (Negative); PH, Urine 5.5 (5.0-8.0); Protein,Urine Negative (Negative); Specific Gravity,Urine 1.007 (1.001-1.035); Urobilinogen,Urine <2.0 mg/dL (<2.0)
[2020-02-10] MEDS: SODIUM CHLORIDE 0.9% 1,000 ML IV SCH ×3 (03:21→19:07)
[2020-02-10] MEDS: HYDROcodone/APAP 5-325MG 1 EACH TAB PO PRN ×4 (04:11→19:15)
[2020-02-10] MEDS: amLODIPine 5 MG TAB PO SCH (07:34)
[2020-02-10] MEDS: SERTRALINE 100 MG TAB PO SCH (07:38)
[2020-02-10] MEDS: FUROSEMIDE 40 MG TAB PO SCH (07:38)
[2020-02-10] MEDS: ASPIRIN 81 MG PO SCH (07:39)
[2020-02-10] MEDS: DIVALPROEX 500 MG TABLET.DR PO SCH ×2 (07:39→21:32)
[2020-02-10] MEDS: PHENYTOIN ORAL SUSP 100 MG/4 ML CUP PO SCH (07:40)
[2020-02-10] MEDS: PHENYTOIN SODIUM EXTENDED 100 MG CAP PO SCH ×2 (07:41→21:33)
[2020-02-10] MEDS: METOPROLOL TARTRATE 50 MG TAB PO SCH ×2 (09:27→21:32)
--- NOTE | 2020-02-10 10:07 | P.CNPUL ---
History of Present Illness Consult date: 02/10/20 Reason for consult: dyspnea, cough, chest pain Chief complaint: Shortness of breath for 1 week and along with intermittent chest pain nonpl History of present illness: This is a 59-year-old female who is been having increasing shortness of breath for last 1 week along with cough congestion and intermittent substernal chest pain symptoms of progressive came into the hospital for further evaluation she had a chest x-ray and CAT scan showed a subtle basal bilateral infiltrate, no pulmonary embolism patient is currently on IV antibiotics, gently she is being hydrated my labs are significant for anemia, chronic kidney disease stage III, urinalysis unremarkable, she is afebrile slightly tachypneic with borderline blo od pressure, bradycardia is present likely related to beta blockers, room air oxygen is 100% Review of Systems All systems: negative Past Medical History Past Medical History: CVA/TIA Additional Past Medical History / Comment(s): ANEMIA, 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 gout, PANCREATITIS, pseudoseizures. UTI, gallstones, LIPS AND ONE HAND SHAKES SOMETIMES. History of Any Multi-Drug Resistant Organisms: ESBL Date of last positivie culture/infection: 03/18/18 ESBL E.coli MDRO Source:: Urine Past Surgical History: Section, Orthopedic Surgery Additional Past Surgical History / Comment(s): COILS AND STENTS TO BRAIN, repair tendons r/t gout BILATERAL FEET. Past Anesthesia/Blood Transfusion Reactions: No Reported Reaction Additional Past Anesthesia/Blood Transfusion Reaction / Comment(s): PT HAS HAD BLOOD TRANSFUSIONS FOR ANEMIA-NO REACTION. Past Psychological History: Depression, Schizophrenia Additional Psychological History / Comment(s): paranoid schizophrenia Smoking Status: Former smoker Past Alcohol Use History: None Reported Additional Past Alcohol Use History / Comment(s): STARTED SMOKING AT AGE 14, SMOKED 1PPD, QUIT >20 YEARS AGO BUT SMOKED AGAIN BRIEFLY WHEN AT [employer] BUT QUIT 1.5 YERAS AGO Past Drug Use History: Cocaine Additional Drug Use History / Comment(s): No current use. Last used 15 yrs ago. - Past Family History Sister(s) Family Medical History: Myocardial Infarction (ME) Father Family Medical History: Cancer Additional Family Medical History / Comment(s): throat, lung, and rectal cancer Mother Family Medical History: Myocardial Infarction (ME) Additional Family Medical History / Comment(s): stroke Medications and Allergies Home Medications Medication Instructions Recorded Confirmed Type Phenytoin Sodium Extended 30 mg PO BID 01/03/14 02/09/20 History [Dilantin] Phenytoin Sodium Extended 100 mg PO BID 01/03/14 02/09/20 History [Dilantin] Aspirin EC [Ecotrin Low Dose] 81 mg PO DAILY 04/12/16 02/09/20 History Divalproex [Depakote] 1,000 mg PO QAM 04/12/16 02/09/20 History ARIPiprazole [Abilify] 15 mg PO HS 01/04/17 02/09/20 History Furosemide [Lasix] 40 mg PO DAILY 01/04/17 02/09/20 History Metoprolol Tartrate 100 mg PO BID 01/04/17 02/09/20 History Sertraline [Zoloft] 100 mg PO QA 01/04/17 02/09/20 History Allopurinol [Zyloprim] 100 mg PO DAILY 02/09/20 02/09/20 History Colchicine [Colcrys] 0.6 mg PO DAILY 02/09/20 02/09/20 History Divalproex [Depakote] 250 mg PO 02/09/20 02/09/20 History Divalproex [Depakote] 500 mg PO 02/09/20 02/09/20 History Omeprazole [PriLOSEC] 20 mg PO DAILY 02/09/20 02/09/20 History Sertraline [Zoloft] 25 mg PO DAILY 02/09/20 02/09/20 History Allergies Allergy/AdvReac Type Severity Reaction Status Date / Time No Known Allergies Allergy Verified 02/09/20 15:08 Physical Exam Vitals: Vital Signs Temp Pulse Pulse Resp BP Pulse Ox 02/10/20 07:50 22 02/10/20 07:00 98.2 F 55 L 22 92/62 100 02/10/20 01:35 97.7 F 59 L 18 104/69 98 02/10/20 00:00 16 02/09/20 19:15 97.9 F 62 16 112/73 100 02/09/20 14:36 97.7 F 67 20 102/70 94 L Intake and Output 02/09/20 02/10/20 02/10/20 22:59 06:59 14:59 Intake Total 250 1000 200 Balance 250 1000 200 Intake: Intake, IV Titration 50 900 Amount Sodium Chloride 0.9% 1, 900 000 ml @ 75 mls/hr IV . [id number] SHAR Rx#:[id number] cefTRIAXone 1 gm In 50 Sodium Chloride 0.9% 50 ml @ 100 mls/hr IVPB Q12HR SHAR Rx#:[id number] Oral 200 100 200 Other: # Voids 1 2 # Bowel Movements 1 - Constitutional General appearance: average body habitus, cooperative, disheveled - EENT Eyes: EOMI, PERRLA ENT: hard of hearing Ears: bilateral: normal - Neck Neck: normal ROM Carotids: bilateral: upstroke normal Thyroid: bilateral: normal size - Respiratory Respiratory: bilateral: diminished, rales - Cardiovascular Rhythm: regular Heart sounds: normal: S1, S2 - Gastrointestinal General gastrointestinal: normal bowel sounds, soft - Integumentary Integumentary: normal turgor - Neurologic Neurologic: CNII-XII intact - Musculoskeletal Musculoskeletal: gait normal, generalized weakness, strength equal bilaterally - Psychiatric Psychiatric: A&O x's 3, appropriate affect, intact judgment & insight Results - Laboratory Findings CBC and BMP: 02/09/20 12:37 02/09/20 12:37 Abnormal lab findings: Abnormal Labs 02/09/20 02/09/20 12:37 12:37 Hgb 10.1 L Hct 32.9 L MCH 24.7 L MCHC 30.7 L RDW 15.9 H Neutrophils # (Manual) 1.08 L Chloride 112 H Carbon Dioxide 20 L BUN 49 H Creatinine 1.75 H Alkaline Phosphatase 128 H - Diagnostic Findings Chest x-ray: report reviewed, image reviewed CT scan - chest: report reviewed, image reviewed (Finding as noted above) Assessment and Plan Assessment: Bilateral basal pneumonia Ongoing intermittent substernal chest heaviness and pain Shortness of breath intermittent Hypertension hypertensive cardiovascular disease Chronic gout Seizure disorder GERD Mood disorder and depression Plan: We'll recommend to check EKG as well as strokes as per protocol Continue IV antibiotics Continue home medications Recommend to check covid 19 testing as well Further recommendations pending plan of care as per progress and response of the patient Time with Patient: Greater than 30
--- NOTE | 2020-02-10 10:11 | XR ---
EXAMINATION TYPE: XR lumbar spine 2 or 3V DATE OF EXAM: 02/10/2020 COMPARISON: 10/20/2016, 02/05/2020 HISTORY: Fracture on CT TECHNIQUE: Lumbar spine is examined in 3 projections. FINDINGS: There is a superior endplate compression deformity of L2 with approximately 40% loss of ant erior vertebral body height. No posterior wall displacement is evident on plain films. This was prese nt on comparison CT abdomen pelvis 02/05/2020. Some interval finding from 10/20/2016 Some degenerative disc changes through the L1-2 level is present. Remaining vertebral body heights are preserved. Disc heights are preserved. Mild spondylosis in the u pper lumbar spine. IMPRESSION: 1. Superior endplate compression deformity L2. This is of indeterminate age. This is better evaluate d on the CT exam.
[2020-02-10 10:31] VITALS: BMI 22.1
--- NOTE | 2020-02-10 12:33 | P.CNOR ---
<Josh Palomares - Last Filed: 02/10/20 12:26> History of Present Illness - [facility] Consult date: 02/10/20 Requesting physician: Mohit Harley Consult reason: fracture (L2 compression fracture deformity seen on CT imaging), low back pain History of present illness: Patient is a pleasant 59-year-old female who is seen and examined at the bedside for further evaluation regards her lumbar spine. Consultation was placed after an L2 compression fracture deformity was incidentally found on chest CT imaging. Patient has been experiencing low back pain. Patient states she has not sustained any recent injuries. She denies any previous injury to her lumbar spine. She is unsure if she ever had a compression fracture deformity at her lumbar spine. She states she has chronic low back pain but has been experienci ng worsening low back pain over the past couple months. She states she has difficulty sitting upright due to her back pain. Her low back pain is exacerbated with coughing and sneezing. She denies any lower extremity weakness or radiculopathy bilaterally. She is currently being seen and examined by her primary care provider for treatment and evaluation of pneumonia. Patient states her recent illness has caused her to walk less than she was previously. She has not had any specific treatment regards to her lumbar spine. Patient has also recently presented to the emergency department for low abdominal plain and recent bladder infection. CT the abdomen and pelvis was also performed on 06/2020 which showed evidence of chronic L2 compression fracture deformity. History of previous CVA/TIA. 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 gout, PANCREATITIS, pseudoseizures. UTI, gallstones, LIPS AND ONE HAND SHAKES SOMETIMES. History of Any Multi-Drug Resistant Organisms: ESBL Year Discovered:: 03/18/18 ESBL E.coli MDRO Source:: Urine Past Surgical History: Section, Orthopedic Surgery Additional Past Surgical History / Comment(s): COILS AND STENTS TO BRAIN, repair tendons r/t gout BILATERAL FEET. Past Anesthesia/Blood Transfusion Reactions: No Reported Reaction Additional Past Anesthesia/Blood Transfusion Reaction / Comm: PT HAS HAD BLOOD TRANSFUSIONS FOR ANEMIA-NO REACTION. Past Psychological History: Depression, Schizophrenia Additional Psychological History / Comment(s): paranoid schizophrenia Smoking Status: Former smoker Past Alcohol Use History: None Reported Additional Past Alcohol Use History / Comment(s): STARTED SMOKING AT AGE 14, SMOKED 1PPD, QUIT >20 YEARS AGO BUT SMOKED AGAIN BRIEFLY WHEN AT [place] BUT QUIT 1.5 YERAS AGO Past Drug Use History: Cocaine Additional Drug Use History / Comment(s): No current use. Last used 15 yrs ago. - Past Family History Sister(s) Family Medical History: Myocardial Infarction (ME) Father Family Medical History: Cancer Additional Family Medical History / Comment(s): throat, lung, and rectal cancer Mother Family Medical History: Myocardial Infarction (ME) Additional Family Medical History / Comment(s): stroke Medications and Allergies Home Medications Medication Instructions Recorded Confirmed Type Phenytoin Sodium Extended 30 mg PO BID 01/03/14 02/09/20 History [Dilantin] Phenytoin Sodium Extended 100 mg PO BID 01/03/14 02/09/20 History [Dilantin] Aspirin EC [Ecotrin Low Dose] 81 mg PO DAILY 04/12/16 02/09/20 History ARIPiprazole [Abilify] 15 mg PO HS 01/04/17 02/09/20 History Furosemide [Lasix] 40 mg PO DAILY 01/04/17 02/09/20 History Metoprolol Tartrate 100 mg PO BID 01/04/17 02/09/20 History Sertraline [Zoloft] 100 mg PO QAM 01/04/17 02/09/20 History Allopurinol [Zyloprim] 100 mg PO DAILY 02/09/20 02/09/20 History Colchicine [Colcrys] 0.6 mg PO DAILY 02/09/20 02/09/20 History Omeprazole [PriLOSEC] 20 mg PO DAILY 02/09/20 02/09/20 History Amoxicillin/Potassium Clav 1 tab PO BID 3 Days #10 tab 02/13/20 Rx [Augmentin 875-125 Tablet] Atorvastatin [Lipitor] 20 mg PO HS #30 tab 02/13/20 Rx Divalproex [Depakote] 1,000 mg PO BID #0 02/13/20 02/09/20 Rx Allergies Allergy/AdvReac Type Severity Reaction Status Date / Time No Known Allergies Allergy Verified 02/09/20 15:08 Physical Examination Physical exam: Patient is awake, alert, and oriented 3 Vital signs stable Adequate chest excursion with deep inspiration and expiration Examination of lumbar spine reveals skin is intact with no abrasions, lacerations, or bruises; no erythema, purulence or signs of infection Pain with palpation along the midline of the upper lumbar spine Dorsiflexion, plantarflexion, and extensor hallucis longus positive sustained bilaterally Patient is able to perform some active range of motion of the bilateral lower extremities Increased low back pain with knee extension bilaterally No lower extremity hyperreflexia bilaterally No signs or symptoms of DVT; no calf pain No pain with internal and external rotation of the hips bilaterally Neurovascularly intact Results Pertinent studies: X-rays of the lumbar spine taken on 02/10/2020: Evidence of L2 superior endplate compression fracture deformity approximately 40% height loss with large anterior osteophytic spurring bridging over the L1-2 disc space; intervertebral disc space appears to be well maintained throughout the lumbar spine; no evidence of spondylolisthesis; no evidence of other compression fracture deformities throughout the lumbar spine. CT of the chest taken on 02/09/2020: L2 superior endplate compression fracture d eformity of indeterminate age but appears new as compared to previous study from 10/20/2016 but suspected chronic as there is bridging osteophytic spurring anteriorly at L1-2; patchy ground glass and mild subpleural reticulation 3 redemonstrated of the posterior lung bases CT of the abdomen and pelvis without contrast taken on 02/05/2020: L2 chronic compression fracture deformity - Labs Labs: Abnormal Lab Results - Last 24 Hours (Table) 02/09/20 02/09/20 Range/Units 12:37 12:37 Hgb 10.1 L (11.4-16.0) gm/dL Hct 32.9 L (34.0-46.0) % MCH 24.7 L (25.0-35.0) pg MCHC 30.7 L (31.0-37.0) g/dL RDW 15.9 H (11.5-15.5) % Neutrophils # (Manual) 1.08 L (1.3-7.7) k/uL Chloride 112 H (98-107) mmol/L Carbon Dioxide 20 L (22-30) mmol/L BUN 49 H (7-17) mg/dL Creatinine 1.75 H (0.52-1.04) mg/dL Alkaline Phosphatase 128 H (38-126) U/L H & H 02/09/20 Range/Units 12:37 Hgb 10.1 L (11.4-16.0) gm/dL Hct 32.9 L (34.0-46.0) % Result Diagrams: 02/09/20 12:37 02/09/20 12:37 Assessment and Plan Assessment: Assessment: Acute on chronic low back pain L2 superior endplate compression fracture deformity of indeterminate age L1-2 large anterior bridging osteophytic spurring Pneumonia Recent bladder infection Past medical history of CVA/TIA (1) Acute exacerbation of chronic low back pain Current Visit: Yes Status: Acute Code(s): M54.5 - LOW BACK PAIN; G89.29 - OTHER CHRONIC PAIN SNOMED Code(s): 946366706 (2) Compression fracture of L2 lumbar vertebra Current Visit: Yes Status: Acute Code(s): S32.020A - WEDGE COMPRESSION FRACTURE OF SECOND LUMBAR VERTEBRA, INIT SNOMED Code(s): 15635618203569708 (3) Pneumonia Current Visit: Yes Status: Acute Code(s): J18.9 - PNEUMONIA, UNSPECIFIED ORGANISM SNOMED Code(s): 122318328 (4) History of CVA (cerebrovascular accident) Current Visit: Yes Status: Acute Code(s): Z86.73 - PRSNL HX OF TIA (TIA), AND CEREB INFRC W/O RESID DEFICITS SNOMED Code(s): 624332362 (5) History of bladder infections Current Visit: Yes Status: Acute Code(s): Z87.440 - PERSONAL HISTORY OF URINARY (TRACT) INFECTIONS SNOMED Code(s): 7613258759697 Plan: Plan: 1. After further discussion with the patient, physical examination the patient, and reviewing of CT imaging, we will plan to obtain x-ray imaging specifically of her lumbar spine. We're able to see her L2 fracture on recent chest CT imaging but do not have for evaluation specifically for her lumbar spine. We will order a complete order of lumbar x-ray imaging. These x-rays have been ordered, performed, interpreted. They have been reviewed by myself as well. X- ray imaging does show evidence of L2 superior endplate compression fracture deformity approximately 40% height loss with large anterior osteophytic spurring bridging over the L1-2 disc space. The rest of her lumbar spinous adequately maintained with no evidence of significant general disc disease, spondylo listhesis, or other lumbar compression fracture deformity. The L2 fracture remains unchanged as compared to other CT imaging. The fracture does appear chronic on imaging with the large osteophytic spurring between L1-2, but the patient's location of pain on physical exam along with her increased pain with bending, coughing, and sneezing makes her fracture appear acute in nature. She is known have chronic low back pain and states this pain is different for her. Given her symptoms, physical exam findings, and findings on imaging, we will currently plan to treat her L2 as acute. We will plan for bracing. A prescription has been written and provided to case management for a Exos LSO brace. Once this brace is delivered and fitted appropriately, patient should wear this brace while sitting upright at greater than 45, during increase activities, during ambulation. Brace does not have to or while lying in bed or while bathing. Following the fitting of this brace, patient is clear for discharge from an orthopedic spine standpoint. Following discharge, patient may follow-up with Josh Palomares PA-C or Dr. Alvarado Jacobsen at [facility]. Patient has been discussed in detail with Dr. Rylan Baugh who agrees with this plan. 2. Patient will continue be seeing exam by medicine for her other medical diagnoses 3. Patient will continue be seen in exam by pulmonology for evaluation and treatment of her bilateral pneumonia Time with Patient: Greater than 30 (Including obtaining history, physical examination, reviewing of imaging, and dictation.) <Rylan Baugh - Last Filed: 02/13/20 13:55> Results - Labs Labs: H & H 02/09/20 02/11/20 02/12/20 Range/Units 12:37 09:53 09:28 Hgb 10.1 L 10.4 L 11.2 L (11.4-16.0) gm/dL Hct 32.9 L 32.5 L 38.3 (34.0-46.0) % Result Diagrams: 02/12/20 09:28 02/12/20 09:28 Assessment and Plan Plan: Imaging studies were reviewed and the case was discussed in detail with Josh Palomares PA-C. Though imaging is suggestive of a chronic/subacute compression fracture, there could certainly be an acute exacerbation (even in the absence of a recalled injury) which is contributing to the patient's present symptoms. Agree with bracing, symptomatic treatment and activity as tolerated. Thank you for allowing us to participate in this patient's care. Rylan Baugh D.O. [facility]
[2020-02-10] MEDS: ARIPiprazole 15 MG TAB PO SCH (21:32)
--- NOTE | 2020-02-10 23:26 | PN ---
PROGRESS NOTE This patient is a 59-year-old white female with L2 compression fracture. CT scan showed bilateral lung infiltrate. The patient states she is feeling a little bit better. She is going to get fitted with an LSO brace for her back. Treated with antibiotics at this time. Respiratory rate 18 to 22, temperature 98, pulse 50s to 60s. CARDIOVASCULAR: S1, S2. LUNGS: Rhonchi x4. HEMATOLOGY: Negative Homans. BUN is 49, creatinine 1.79. Continue IV antibiotics, home medicines. Get a brace. Check for stroke and EKG. Wait for recommendations by Dr. Callahan. She has bilateral basilar pneumonia, which we are treating. Ongoing intermittent substernal chest pain, shortness of breath secondary to pneumonia, hypertensive cardiovascular disease, chronic gout, seizure disorder, GERD. Please see further orders. MMODL / IJN: [id number] /
--- NOTE | 2020-02-10 23:41 | HP ---
HISTORY AND PHYSICAL DATE OF SERVICE: 02/09/2020 Dyspnea, cough, intermittent chest pain, shortness of breath. CT scan shows bilateral pneumonia. Admitted for IV antibiotics. CT scan was reviewed. The patient has a large amount of calcifications on CT scan, for which Cardiology has been consulted. PAST MEDICAL HISTORY: See old chart. REVIEW OF SYSTEMS: See old chart. PAST SURGICAL HISTORY: , orthopedic surgery. History of depression, schizophrenia. FAMILY HISTORY: Sister with myocardial infarction. Father with throat, rectal cancer. Mother myocardial infarction. PHYSICAL EXAMINATION: Temperature 97, respiratory rate 16-20, blood pressure 110 to 120 over 60s to 70s, O2 98-100. CARDIOVASCULAR: S1, S2. LUNGS: Scattered rhonchi and wheeze. NEUROLOGIC: Weakness x4. PSYCH: Appears weak, fatigued. Some confusion, staring spells. Rule out seizure disorder. Treatment of bilateral pneumonia with IV antibiotics. Check seizure medication levels. Prognosis guarded. MMODL / IJN: [id number] /
[2020-02-11] MEDS: HYDROcodone/APAP 5-325MG 1 EACH TAB PO PRN ×4 (06:17→20:11)
[2020-02-11] MEDS: METOPROLOL TARTRATE 50 MG TAB PO SCH ×2 (09:27→20:11)
[2020-02-11] MEDS: ASPIRIN 81 MG PO SCH (09:27)
[2020-02-11] MEDS: amLODIPine 5 MG TAB PO SCH (09:27)
[2020-02-11] MEDS: SERTRALINE 100 MG TAB PO SCH (09:27)
[2020-02-11] MEDS: FUROSEMIDE 40 MG TAB PO SCH (09:27)
[2020-02-11] MEDS: PHENYTOIN SODIUM EXTENDED 100 MG CAP PO SCH ×2 (09:27→20:11)
[2020-02-11] MEDS: DIVALPROEX 500 MG TABLET.DR PO SCH ×2 (09:27→20:11)
--- NOTE | 2020-02-11 10:00 | P.PN ---
Subjective Progress Note Date: 02/11/20 Principal diagnosis: L2 compression fracture. Patient is a pleasant 59-year-old female who is seen and examined at the bedside for further evaluation regards her lumbar spine. Consultation was placed after an L2 compression fracture deformity was incidentally found on chest CT imaging. Patient has been experiencing low back pain. Patient states she has not sustained any recent injuries. She denies any previous injury to her lumbar spine. She is unsure if she ever had a compression fracture deformity at her lumbar spine. She states she has chronic low back pain but has been experiencing worsening low back pain over the past couple months. She states she has difficulty sitting upright due to her back pain. Her low back pain is exacerbated with coughing and sneezing. She denies any lower extremity weakness or radiculopathy bilaterally. She is currently being seen and examined by her primary care provider for treatment and evaluation of pneumonia. Patient states her recent illness has caused her to walk less than she was previously. She has not had any specific treatment regards to her lumbar spine. Patient has also recently presented to the emergency department for low abdominal plain and recent bladder infection. CT the abdomen and pelvis was also performed on 02/05/2020 which showed evidence of chronic L2 compression fracture deformity. History of previous CVA/TIA. 02/11/2020: Patient states that her pain is about the same. She did receive the brace. She otherwise has no new complaints or concerns today. Vital signs are stable. Objective - Vital Signs Vital signs: Vital Signs Temp 98.3 F 02/11/20 07:00 Pulse 51 L 02/11/20 07:00 Resp 15 02/11/20 07:00 BP 111/74 02/11/20 07:00 Pulse Ox 96 02/11/20 07:00 Intake & Output 02/10/20 02/11/20 02/11/20 18:59 06:59 18:59 Intake Total 440 Balance 440 Weight 53.161 kg Intake: Oral 440 Other: # Voids 3 1 # Bowel Movements 1 1 - Exam This is a pleasant 59-year-old female in no acute distress. She is alert and oriented at this time. Exam of her low-back reveals that her brace is in place. She is lying in bed and appears fairly comfortable this time. She has full motion to the lower extremities in bed without difficulty. Neurovascular status to the lower extremities is grossly intact. - Labs CBC & Chem 7: 02/09/20 12:37 02/09/20 12:37 Assessment and Plan (1) Compression fracture of L2 lumbar vertebra Current Visit: Yes Status: Acute Code(s): S32.020A - WEDGE COMPRESSION FRACTURE OF SECOND LUMBAR VERTEBRA, INIT SNOMED Code(s): 47186659685876032 Plan: The clinical findings are discussed with the patient and nursing staff. She is to be in the brace when she is up greater than 45 angle. She is to work with physical therapy and ambulation. We'll continue to follow.
[2020-02-11 10:07] LABS: Albumin 3.4 g/dL (3.5-5.0); Calcium 8.7 mg/dL (8.4-10.2); Potassium 4.6 mmol/L (3.5-5.1); Total Bilirubin 0.5 mg/dL (0.2-1.3); Total Protein 6.5 g/dL (6.3-8.2)
--- NOTE | 2020-02-11 10:10 | P.PN ---
Subjective Progress Note Date: 02/11/20 Principal diagnosis: Bilateral basal pneumonia Ongoing intermittent substernal chest heaviness and pain Shortness of breath intermittent Hypertension hypertensive cardiovascular disease Chronic gout Seizure disorder GERD Mood disorder and depression 02/11/2020, patient seen eval examined during the rounds labs reviewed medications reviewed, care plan discussed, cough shortness of breath has improved patient has a bilateral community-acquired pneumonia being treated with antibiotics hemodynamically she is stable except for some bradycardia which is likely due to beta kieran will continue current course of therapy and follow clinical course closely This is a 59-year-old female who is been having increasing shortness of breath for last 1 week along with cough congestion and intermittent substernal chest pain symptoms of progressive came into the hospital for further evaluation she had a chest x-ray and CAT scan showed a subtle basal bilateral infiltrate, no pulmonary embolism patient is currently on IV antibiotics, gently she is being hydrated my labs are significant for anemia, chronic kidney disease stage III, urinalysis unremarkable, she is afebrile slightly tachypneic with borderline blood pressure, bradycardia is present likely related to beta blockers, room air oxygen is 100% Objective - Vital Signs Vital signs: Vital Signs Temp 98.3 F 02/11/20 07:00 Pulse 51 L 02/11/20 07:00 Resp 15 02/11/20 07:00 BP 111/74 02/11/20 07:00 Pulse Ox 96 02/11/20 07:00 Intake & Output 02/10/20 02/11/20 02/11/20 18:59 06:59 18:59 Intake Total 440 Balance 440 Weight 53.161 kg Intake: Oral 440 Other: # Voids 3 1 # Bowel Movements 1 1 - Exam - Constitutional General appearance: average body habitus, cooperative, disheveled - EENT Eyes: EOMI, PERRLA ENT: hard of hearing Ears: bilateral: normal - Neck Neck: normal ROM Carotids: bilateral: upstroke normal Thyroid: bilateral: normal size - Respiratory Respiratory: bilateral: diminished, rales - Cardiovascular Rhythm: regular Heart sounds: normal: S1, S2 - Gastrointestinal General gastrointestinal: normal bowel sounds, soft - Integumentary Integumentary: normal turgor - Neurologic Neurologic: CNII-XII intact - Musculoskeletal Musculoskeletal: gait normal, generalized weakness, strength equal bilaterally - Psychiatric Psychiatric: A&O x's 3, appropriate affect, intact judgment & insight - Labs CBC & Chem 7: 02/09/20 12:37 02/09/20 12:37 Assessment and Plan Assessment: Bilateral basal pneumonia, likely community-acquired pneumonia Ongoing intermittent substernal chest heaviness and pain, improved significantly Shortness of breath intermittent Hypertension hypertensive cardiovascular disease Chronic gout Seizure disorder GERD Mood disorder and depression Plan: Troponin are within normal limit patient currently symptom free Continue IV antibiotics Continue home medications Recommend to check covid 19 testing as well Further recommendations pending plan of care as per progress and response of the patient Time with Patient: Greater than 30
[2020-02-11 10:51] LABS: Anisocytosis Slight; HCT 32.5 % (34.0-46.0); HGB 10.4 gm/dL (11.4-16.0); Hypochromasia Slight; MCH 25.2 pg (25.0-35.0); MCHC 31.9 g/dL (31.0-37.0); MCV 79.1 fL (80.0-100.0); Mean Platelet Volume 10.2; Platelet Count 179 k/uL (150-450); RBC 4.11 m/uL (3.80-5.40); RDW 16.1 % (11.5-15.5); WBC 6.4 k/uL (3.8-10.6)
[2020-02-11] MEDS: SODIUM CHLORIDE 0.9% 1,000 ML IV SCH (11:03)
[2020-02-11] MEDS: KETOROLAC 30 MG/ML 1 ML VIAL IVP PRN ×2 (11:13→17:31)
[2020-02-11 12:12] LABS: Eosinophils # (M) 0.45 k/uL (0-0.7); Monocytes # (M) 0.32 k/uL (0-1.0); Neutrophils # (M) 1.73 k/uL (1.3-7.7); Neutrophils % (M) 27 %; Nucleated Red Blood Cells 0 /100 WBC (0-0); Target Cells Present; Total Cells Counted 100
--- NOTE | 2020-02-11 14:58 | P.CRDCN ---
History of Present Illness Consult date: 02/11/20 Reason for Consult (text): Calcified coronary arteries on CT scan Chief complaint: calcified coronary artery on computed tomography scan History of present illness: HISTORY OF PRESENT ILLNESS AND PLAN: This is a 59-year-old female with history of memory loss, depression, mood disorder, schizophrenia, seizure disorder, CVA, GERD, gout, hypertension and recent diagnosis community acquired pneumonia. Patient was admitted for IV antibiotic administration for bilateral community-acquired pneumonia. On computed tomography scan of the chest calcified coronary arteries were noted. Family was called to discuss history as patient is a poor historian. Patient has never followed with cardiology historically. Also noted on computed tomography scan of chest were L2 vertebral fracture. Patient states she has had back pain, chest pressure, cough and shortness of breath 1 week. Patient negative for COVID 19. Troponins negative 3. BUN 49 and CR 1.75. Low BP noted this day with starting Amlodipine 5 mg daily. Pt currently no on telemetry. SIGNIFICANT PAST MEDICAL HISTORY: Depression, memory loss, mood disorder, schizophrenia, seizure disorder, CVA, GERD, gout, hypertension. PAST SURGICAL HISTORY: See list. EKG = will obtain Troponins negative x 3 SIGNIFICANT LABORATORY VALUES: CT of chest = LAD and RCA coronary calcifications. L2 deformity. patchy groundglass and mild soap pleural reticulations at lung bases, dependent atelectasis. Some superimposed interstitial fibrosis is suspected Most recent echo = pending REVIEW OF SYSTEMS: CONSTITUTIONAL: Denies fever. Denies chills. EYES: Denies blurred vision. Denies blurred vision or vision changes. Denies eye pain. EARS, NOSE, MOUTH & THROAT: Denies headache. Denies sore throat. Denies ear pain Denies hemoptysis. CARDIOVASCULAR: Complains of chest tightness and shortness of breath. Denies or thopnea. Denies PND. Denies palpitations. RESPIRATORY: Complains of cough and shortness of breath. GASTROINTESTINAL: Denies abdominal pain or distention. Denies diarrhea. Denies constipation. Denies nausea. Denies vomiting. MUSCULOSKELETAL: Denies myalgias. INTEGUMENTARY: Denies pruitis. Denies rash. ENDOCRINE: Denies fatigue. Denies weight change. Denies polydipsia. Denies polyurina Denies heat/cold intolerance. GENITOURINARY: Denies burning, hematuria or urgency with micturation. HEMATOLOGIC: Denies history of anemia. Denies bleeding. NEUROLOGIC: Denies numbness. Denies tingling. Denies weakness. PSYCHIATRIC: Denies anxiety. Denies depression. PHYSICAL EXAM: GENERAL: Well developed, in no acute distress. HEENT: Head is atraumatic, normocephalic. Pupils are equal, round. Extra ocular movements intact. Mucous membranes moist. Neck supple. No JVD. No carotid bruit. No thyromegaly. LUNGS: Clear to auscultation. Fine course crackles noted at bases. No chest wall tenderness on palpation or with deep breathing. HEART: Regular rate and rhythm, no rubs or gallops. S1 and S2 heard. No murmur. ABDOMEN: Abdominal exam, WNL. Bowel sounds x4 quads. Soft, non-tender, without masses, organomegaly, or abdominal aorta enlargement. EXTREMITIES/VASCULAR: Extremities have easily palpable radial, femoral, dorsalis pedis and posterior tibial pulses. No cyanosis, calf tenderness. No BLE edema. NEUROLOGIC: Patient is awake, alert and oriented x3. No focal neurologic abnormalities. Pt wearing back brace for newly diagnosed L2 fracture. FINAL IMPRESSION: 1. Calcified corornary on CT scan, will start ASA and statin 2. Atypical chest pain 3. L2 fracture 4. Hypertension 5. Cough PLAN: START Aspirin 81 mg daily. START Lipitor 20 mg daily. Atypical chest pain with no acute cardiology process. Plan for outpatient stress testing at discharge. STOP amlodipine, low BP this day. Continue same all other medical/medication regime. Cardiology to follow along on a PRN basis. Nurse Practitioner note has been reviewed by the Physician. Signing provider agrees with the documented findings, assessment and plan of care. 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 gout, PANCREATITIS, pseudoseizures. UTI, gallstones, LIPS AND ONE HAND SHAKES SOMETIMES. History of Any Multi-Drug Resistant Organisms: ESBL Date of last positivie culture/infection: 03/18/18 ESBL E.coli MDRO Source:: Urine Past Surgical History: Section, Orthopedic Surgery Additional Past Surgical History / Comment(s): COILS AND STENTS TO BRAIN, repair tendons r/t gout BILATERAL FEET. Past Anesthesia/Blood Transfusion Reactions: No Reported Reaction Additional Past Anesthesia/Blood Transfusion Reaction / Comment(s): PT HAS HAD BLOOD TRANSFUSIONS FOR ANEMIA-NO REACTION. Past Psychological History: Depression, Schizophrenia Additional Psychological History / Comment(s): paranoid schizophrenia Smoking Status: Former smoker Past Alcohol Use History: None Reported Additional Past Alcohol Use History / Comment(s): STARTED SMOKING AT AGE 14, SMOKED 1PPD, QUIT >20 YEARS AGO BUT SMOKED AGAIN BRIEFLY WHEN AT [place] BUT QUIT 1.5 YERAS AGO Past Drug Use History: Cocaine Additional Drug Use History / Comment(s): No current use. Last used 15 yrs ago. - Past Family History Sister(s) Family Medical History: Myocardial Infarction ([place]) Father Family Medical History: Cancer Additional Family Medical History / Comment(s): throat, lung, and rectal cancer Mother Family Medical History: Myocardial Infarction ([place]) Additional Family Medical History / Comment(s): stroke Medications and Allergies Home Medications Medication Instructions Recorded Confirmed Type Phenytoin Sodium Extended 30 mg PO BID 01/03/14 02/09/20 History [Dilantin] Phenytoin Sodium Extended 100 mg PO BID 01/03/14 02/09/20 History [Dilantin] Aspirin EC [Ecotrin Low Dose] 81 mg PO DAILY 04/12/16 02/09/20 History Divalproex [Depakote] 1,000 mg PO QAM 04/12/16 02/09/20 History ARIPiprazole [Abilify] 15 mg PO 01/04/17 02/09/20 History Furosemide [Lasix] 40 mg PO DAILY 01/04/17 02/09/20 History Metoprolol Tartrate 100 mg PO BID 01/04/17 02/09/20 History Sertraline [Zoloft] 100 mg PO QA 01/04/17 02/09/20 History Allopurinol [Zyloprim] 100 mg PO DAILY 02/09/20 02/09/20 History Colchicine [Colcrys] 0.6 mg PO DAILY 02/09/20 02/09/20 History Divalproex [Depakote] 250 mg PO 02/09/20 02/09/20 History Divalproex [Depakote] 500 mg PO 02/09/20 02/09/20 History Omeprazole [PriLOSEC] 20 mg PO DAILY 02/09/20 02/09/20 History Sertraline [Zoloft] 25 mg PO DAILY 02/09/20 02/09/20 History Allergies Allergy/AdvReac Type Severity Reaction Status Date / Time No Known Allergies Allergy Verified 02/09/20 15:08 Physical Exam Vitals: Vital Signs Temp Pulse Resp BP Pulse Ox 02/11/20 07:00 98.3 F 51 L 15 111/74 96 02/11/20 03:42 16 02/11/20 01:35 97.8 F 56 L 16 92/60 98 02/10/20 20:00 67 18 02/10/20 19:20 98.3 F 67 18 121/85 98 Intake and Output 02/10/20 02/11/20 02/11/20 22:59 06:59 14:59 Intake Total 600 Balance 600 Intake: IV 600 Sodium Chloride 0.9% 1, 600 000 ml @ 75 mls/hr IV . [id number] [facility] Rx#:[id number] Other: # Voids 1 1 6 # Bowel Movements 1 Results 02/11/20 09:53 02/11/20 08:46 Cardiac Enzymes 02/10/20 02/10/20 02/11/20 Range/Units 14:00 17:09 08:46 AST 32 (14-36) U/L Troponin I 0.013 <0.012 (0.000-0.034) ng/mL CBC 02/11/20 Range/Units 09:53 WBC 6.4 (3.8-10.6) k/uL RBC 4.11 (3.80-5.40) m/uL Hgb 10.4 L (11.4-16.0) gm/dL Hct 32.5 L (34.0-46.0) % Plt Count 179 (150-450) k/uL Comprehensive Metabolic Panel 02/11/20 Range/Units 08:46 Sodium 141 (137-145) mmol/L Potassium 4.6 (3.5-5.1) mmol/L Chloride 118 H (98-107) mmol/L Carbon Dioxide 15 L (22-30) mmol/L BUN 41 H (7-17) mg/dL Creatinine 1.10 H (0.52-1.04) mg/dL Glucose 118 H (74-99) mg/dL Calcium 8.7 (8.4-10.2) mg/dL AST 32 (14-36) U/L ALT 13 (4-34) U/L Alkaline Phosphatase 134 H (38-126) U/L Total Protein 6.5 (6.3-8.2) g/dL Albumin 3.4 L (3.5-5.0) g/dL Current Medications Generic Name Dose Route Start Last Admin Trade Name Freq PRN Reason Stop Dose Admin Hydrocodone Bitart/Acetaminophen 1 each 02/09/20 15:37 02/11/20 11:10 [place] 5-325 PO 1 each Q4HR PRN Administration Pain Amlodipine Besylate 5 mg 02/10/20 09:00 02/11/20 09:27 Norvasc PO 5 mg QAM SHAR Administration Aripiprazole 15 mg 02/09/20 21:00 02/10/20 21:32 Abilify PO 15 mg HS SHAR Administration Aspirin 81 mg 02/10/20 09:00 02/11/20 09:27 Aspirin PO 81 mg DAILY SHAR Administration Divalproex Sodium 1,000 mg 02/09/20 21:00 02/11/20 09:27 Depakote PO 1,000 mg BID SHAR Administration Furosemide 40 mg 02/10/20 09:00 02/11/20 09:27 Lasix PO 40 mg DAILY SHAR Administration Sodium Chloride 1,000 mls @ 75 mls/hr 02/09/20 12:45 02/11/20 11:03 Saline 0.9% IV 75 mls/hr .[id number] SHAR Administration Ceftriaxone Sodium 1 gm/ 50 mls @ 100 mls/hr 02/09/20 21:00 02/11/20 09:27 Sodium Chloride IVPB 100 mls/hr Q12HR SHAR Administration Ketorolac Tromethamine 30 mg 02/11/20 11:05 02/11/20 11:13 Toradol IVP 02/15/20 11:05 30 mg Q6HR PRN Administration Pain Metoprolol Tartrate 100 mg 02/09/20 21:00 02/11/20 09:27 Lopressor PO 100 mg BID SHAR Administration Phenytoin Sodium 100 mg 02/09/20 21:00 02/11/20 09:27 Dilantin PO 100 mg BID SHAR Administration Phenytoin Sodium 30 mg 02/12/20 09:00 Dilantin Oral Susp PO WEEKLY SHAR Sertraline HCl 100 mg 02/10/20 09:00 02/11/20 09:27 Zoloft PO 100 mg QAM SHAR Administration Intake and Output 02/10/20 02/11/20 02/11/20 22:59 06:59 14:59 Intake Total 600 Balance 600 Intake: IV 600 Sodium Chloride 0.9% 1, 600 000 ml @ 75 mls/hr IV . [id number] [facility] Rx#:[id number] Other: # Voids 1 1 6 # Bowel Movements 1 02/11/20 09:53 02/11/20 08:46
--- NOTE | 2020-02-11 15:33 | ECHOF ---
Referral Reason:chest pain/shortness of breath MEASUREMENTS -------- HEIGHT: 154.9 cm WEIGHT: 54.4 kg BP: IVSd: 0.8 cm (0.6 - 1.1) LVIDd: 2.9 cm (3.9 - 5.3) LVPWd: 1.1 cm (0.6 - 1.1) IVSs: 1.3 cm LVIDs: 2.3 cm LVPWs: 1.7 cm LAESV Index (A-L): 32.73 ml/m Ao Diam: 2.8 cm (2.0 - 3.7) AV Cusp: 2.3 cm (1.5 - 2.6) LA Diam: 3.6 cm (2.7 - 3.8) MV EXCURSION: 15.618 mm (> 18.000) MV EF SLOPE: 142 mm/s (70 - 150) EPSS: 2.6 cm MV E Geovani: 0.72 m/s MV DecT: 205 ms MV A Geovani: 0.65 m/s MV E/A Ratio: 1.12 RAP: 5.00 mmHg RVSP: 16.44 mmHg FINDINGS -------- Sinus rhythm. This was a technically good study. Left ventricular wall thickness is normal. Overall left ventricular systolic function is normal wit h, an EF between 55 - 60 %. The diastolic filling pattern is normal for the age of the patient 11.0 6. The right ventricle is normal in size. LA is midly dilated 29-33ml/m2. The right atrial size is normal. Interatrial and interventricular septum intact. The aortic valve is trileaflet and appears structurally normal. The mitral valve is normal. Mild mitral regurgitation is present. The tricuspid valve appears structurally normal. Mild tricuspid regurgitation present. Right vent ricular systolic pressure is normal at < 35 mmHg. There is no pulmonic regurgitation present. The aortic root size is normal. Normal inferior vena cava with normal inspiratory collapse consistent with estimated right atrial pre ssure of 5 mmHg. There is no pericardial effusion. CONCLUSIONS -------- 1. Overall left ventricular systolic function is normal with, an EF between 55 - 60 %. 2. The diastolic filling pattern is normal for the age of the patient 11.06 3. LA is midly dilated 29-33ml/m2. 4. Mild mitral regurgitation is present. 5. Mild tricuspid regurgitation present. SHIPPING PROCESSOR: Ladi Lau RDCS
[2020-02-11] MEDS: ARIPiprazole 15 MG TAB PO SCH (20:10)
[2020-02-11] MEDS: ATORVASTATIN 20 MG TAB PO SCH (20:10)
--- NOTE | 2020-02-11 23:28 | PN ---
PROGRESS NOTE Patient is seen by fire captain marine for coronary artery disease. Had a CT scan. Assessment is calcified coronary on CAT scan. Started aspirin and statin. Atypical chest pain, L2 fracture, hypertension, cough. We stopped her amlodipine. Outpatient stress testing at discharge. Will follow up in the next 24 to 48 hours. Neuro consult is still pending as well as aspiration pneumonia treatment. MMODL / IJN: [id number] /
[2020-02-12] MEDS: HYDROcodone/APAP 5-325MG 1 EACH TAB PO PRN ×2 (03:02→07:54)
[2020-02-12] MEDS: SERTRALINE 100 MG TAB PO SCH (07:53)
[2020-02-12] MEDS: ASPIRIN 81 MG PO SCH (07:53)
[2020-02-12] MEDS: FUROSEMIDE 40 MG TAB PO SCH (07:54)
[2020-02-12] MEDS: DIVALPROEX 500 MG TABLET.DR PO SCH ×2 (07:55→20:21)
[2020-02-12] MEDS: PHENYTOIN SODIUM EXTENDED 100 MG CAP PO SCH ×2 (07:56→20:22)
[2020-02-12] MEDS: SODIUM CHLORIDE 0.9% 1,000 ML IV SCH (08:02)
[2020-02-12] MEDS ORDERED: PHENYTOIN ORAL SUSP 100 MG/4 ML CUP PO SCH (09:00)
[2020-02-12] MEDS: METOPROLOL TARTRATE 50 MG TAB PO SCH ×2 (09:35→20:27)
[2020-02-12] MEDS: KETOROLAC 30 MG/ML 1 ML VIAL IVP PRN (09:35)
--- NOTE | 2020-02-12 10:48 | P.PN ---
Subjective Progress Note Date: 02/12/20 Principal diagnosis: Calcified Coronary arteries on CT scan of chest/shortness of breath PROGRESS NOTE 02/12/2020 Pt laying in this a.m. with no acute distress. Patient has no current complaints of chest pain, chest pressure, shortness of breath or palpitations. Patient does complain of extreme low back/lumbar pain and currently wearing a back brace. Patient states lower back pain is not covered by current pain medication regime. Patient family on the phone and confirms complaint of low back pain. No telemetry. Patient to follow-up with cardiology on outpatient basis for stress testing. Plan of care, medications and need for outpatient str ess testing discussed with family over the phone. Echocardiogram 02/11/2020 = EF 55-60%, LA mildly dilated. Mild MR. Mild TR. This is a 59-year-old female with history of memory loss, dep ression, mood disorder, schizophrenia, seizure disorder, CVA, GERD, gout, hypertension and recent diagnosis community acquired pneumonia. Patient was admitted for IV antibiotic administration for bilateral community-acquired pneumonia. On computed tomography scan of the chest calcified coronary arteries were noted. PHYSICAL EXAMINATION: HEENT: Head is atraumatic, normocephalic. Pupils are equal, round. Sclerae anicteric. Conjunctivae are clear. Mucous membranes of the mouth are moist. Neck is supple. There is no jugular venous distention. No carotid bruit is heard. No thyromegaly. LUNGS: Clear to auscultation no wheezes, rales or rhonchi. No chest wall tenderness is noted on palpation or with deep breathing. HEART: Regular rate and rhythm without murmurs, rubs or gallops. S1 and S2 heard. ABDOMEN: Abdominal exam revealed normal bowel sounds. The abdomen was soft, non- tender, and without masses, organomegaly, or appreciable enlargement of the abdominal aorta. EXTREMITIES: Examination of the extremities revealed easily palpable radial, femoral and pedal pulses. There was no cyanosis, clubbing or edema. No calf tenderness noted. VASCULAR: Radial and dorsalis pedis pulses palpated, no evidence of clubbing. NEUROLOGIC: Patient is awake, alert and oriented x3. There were no obvious focal neurologic abnormalities. FINAL IMPRESSION: 1. Calcified coronaries on computed tomography scan 2. Atypical chest pain 3. L2 fracture 4. HTN PLAN: Atypical chest pain with no acute cardiology process. Cardiology to follow along on a when necessary basis. Medications and plan of care discussed with family. Patient to follow-up with cardiology once back pain is controlled on outpatient basis for stress testing. Objective - Vital Signs Vital signs: Vital Signs Temp 98.2 F 02/12/20 07:00 Pulse 68 02/12/20 07:00 Resp 15 02/12/20 08:00 BP 105/61 02/12/20 09:38 Pulse Ox 99 02/12/20 07:00 Intake & Output 02/11/20 02/12/20 02/12/20 18:59 06:59 18:59 Intake Total 600 Balance 600 Intake: IV 600 Sodium Chloride 0.9% 1, 600 000 ml @ 75 mls/hr IV . [id number] [facility] Rx#:[id number] Other: # Voids 6 2 - Labs CBC & Chem 7: 02/11/20 09:53 02/11/20 08:46 Labs: Abnormal Lab Results - Last 24 Hours (Table) 02/11/20 02/11/20 Range/Units 08:46 09:53 Hgb 10.4 L (11.4-16.0) gm/dL Hct 32.5 L (34.0-46.0) % MCV 79.1 L (80.0-100.0) fL RDW 16.1 H (11.5-15.5) % Chloride 118 H (98-107) mmol/L Carbon Dioxide 15 L (22-30) mmol/L BUN 41 H (7-17) mg/dL Creatinine 1.10 H (0.52-1.04) mg/dL Glucose 118 H (74-99) mg/dL Alkaline Phosphatase 134 H (38-126) U/L Albumin 3.4 L (3.5-5.0) g/dL
[2020-02-12 10:50] LABS: Basophils % (A) 1 %; Eosinophils # (A) 0.4 k/uL (0-0.7); Eosinophils % (A) 7 %; HCT 38.3 % (34.0-46.0); HGB 11.2 gm/dL (11.4-16.0); Hypochromasia Moderate; Lymphocytes # (A) 3.3 k/uL (1.0-4.8); Lymphocytes % (A) 55 %; MCH 23.9 pg (25.0-35.0); MCHC 29.2 g/dL (31.0-37.0); MCV 81.8 fL (80.0-100.0); Mean Platelet Volume 8.8; Monocytes # (A) 0.4 k/uL (0-1.0); Monocytes % (A) 7 %; Neutrophils # (A) 1.6 k/uL (1.3-7.7); Neutrophils % (A) 27 %; Platelet Count 128 k/uL (150-450); RBC 4.68 m/uL (3.80-5.40); RDW 15.9 % (11.5-15.5); WBC 5.9 k/uL (3.8-10.6)
[2020-02-12 10:55] LABS: Albumin 3.7 g/dL (3.5-5.0); Potassium 4.7 mmol/L (3.5-5.1); Total Bilirubin 0.3 mg/dL (0.2-1.3); Total Protein 7.1 g/dL (6.3-8.2)
[2020-02-12] MEDS: HYDROcodone/APAP 10-325MG 1 EACH TAB PO PRN ×2 (11:47→17:06)
[2020-02-12] MEDS: ATORVASTATIN 20 MG TAB PO SCH (20:22)
[2020-02-12] MEDS: ARIPiprazole 15 MG TAB PO SCH (20:22)
[2020-02-13] MEDS: SODIUM CHLORIDE 0.9% 1,000 ML IV SCH ×2 (00:57→10:56)
[2020-02-13] MEDS: HYDROcodone/APAP 10-325MG 1 EACH TAB PO PRN ×3 (01:52→13:24)
[2020-02-13] MEDS: SERTRALINE 100 MG TAB PO SCH (07:01)
[2020-02-13] MEDS: FUROSEMIDE 40 MG TAB PO SCH (07:01)
[2020-02-13] MEDS: DIVALPROEX 500 MG TABLET.DR PO SCH (07:01)
[2020-02-13] MEDS: ASPIRIN 81 MG PO SCH (07:01)
[2020-02-13] MEDS: PHENYTOIN SODIUM EXTENDED 100 MG CAP PO SCH (07:01)
[2020-02-13] MEDS: METOPROLOL TARTRATE 50 MG TAB PO SCH (07:01)
[2020-02-13 07:38] VITALS: RESP 16
[2020-02-13 15:57] VITALS: BP 116/75; PULSE 62; TEMP 98.1
--- NOTE | 2020-02-13 16:45 | P.PN ---
Subjective Progress Note Date: 02/13/20 Principal diagnosis: Bilateral basal pneumonia Ongoing intermittent substernal chest heaviness and pain Shortness of breath intermittent Hypertension hypertensive cardiovascular disease Chronic gout Seizure disorder GERD Mood disorder and depression 02/13/2020, patient seen eval examined during the rounds labs reviewed medications reviewed respiratory status continued to do well, she remains afebrile with saturation 94% room air hemodynamically stable, patient is curr ently symptom free including no evidence of chest pain, wishes to go home, patient can be discharged from pulmonary standpoint on oral antibiotics follow up with outpatient 02/11/2020, patient seen eval examined during the rounds labs reviewed medications reviewed, care plan discussed, cough shortness of breath has improved patient has a bilateral community-acquired pneumonia being treated with antibiotics hemodynamically she is stable except for some bradycardia which is likely due to beta kieran will continue current course of therapy and follow clinical course closely This is a 59-year-old female who is been having increasing shortness of breath for last 1 week along with cough congestion and intermittent substernal chest pain symptoms of progressive came into the hospital for further evaluation she had a chest x-ray and CAT scan showed a subtle basal bilateral infiltrate, no pulmonary embolism patient is currently on IV antibiotics, gently she is being hydrated my labs are significant for anemia, chronic kidney disease stage III, urinalysis unremarkable, she is afebrile slightly tachypneic with borderline blood pressure, bradycardia is present likely related to beta blockers, room air oxygen is 100% Objective - Vital Signs Vital signs: Vital Signs Temp 98.1 F 02/13/20 14:50 Pulse 62 02/13/20 14:50 Resp 16 02/13/20 14:50 BP 116/75 02/13/20 14:50 Pulse Ox 94 L 02/13/20 14:50 Intake & Output 02/12/20 02/13/20 02/13/20 18:59 06:59 18:59 Intake Total 540 Output Total 575 Balance -575 540 Weight 53.161 kg Intake: Oral 540 Output: Urine 575 Other: # Voids 5 1 1 # Bowel Movements 1 - Exam - Constitutional General appearance: average body habitus, cooperative, disheveled - EENT Eyes: EOMI, PERRLA ENT: hard of hearing Ears: bilateral: normal - Neck Neck: normal ROM Carotids: bilateral: upstroke normal Thyroid: bilateral: normal size - Respiratory Respiratory: bilateral: diminished, rales - Cardiovascular Rhythm: regular Heart sounds: normal: S1, S2 - Gastrointestinal General gastrointestinal: normal bowel sounds, soft - Integumentary Integumentary: normal turgor - Neurologic Neurologic: CNII-XII intact - Musculoskeletal Musculoskeletal: gait normal, generalized weakness, strength equal bilaterally - Psychiatric Psychiatric: A&O x's 3, appropriate affect, intact judgment & insight - Labs CBC & Chem 7: 02/12/20 09:28 02/12/20 09:28 Assessment and Plan Assessment: Bilateral basal pneumonia, likely community-acquired pneumonia Ongoing intermittent substernal chest heaviness and pain, improved significantly Shortness of breath intermittent Hypertension hypertensive cardiovascular disease Chronic gout Seizure disorder GERD Mood disorder and depression Plan: patient currently symptom free Continue oral antibiotics and agree with discharge Continue home medications Recommend to check covid 19 testing as well Further recommendations pending plan of care as per progress and response of the patient Time with Patient: Greater than 30
--- NOTE | 2020-02-13 19:36 | P.CNNES ---
History of Present Illness Consult date: 02/13/20 Requesting physician: Mohit Harley Reason for Consult: Altered mental status History of Present Illness: Patient is a 59-year-old female who has history of seizure disorder, previous history of CVA came to the hospital for back pain. Patient says that she was diagnosed with pneumonia, bladder infection and "crack on the back". I spoke to patient, as well as her son on the phone. Her son states that she has history of seizure disorder "all her life". Patient states that she follows up with Dr. Abbasi in the neurology clinic. Patient has not had any seizures for the last 2 years. Her seizures are typically grand mal seizures. Patient currently is on Dilantin 100 mg twice a day, and 30 mg extra dose, once a week every Thursday. She is also on Depakote 1000 mg in the morning and 750 mg at night. Her neur ologist usually checks her levels every couple months. 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 Patient does have a cane, walker wheelchair and electric scooter. She often walks without any device. Patient has been seen by another neurologist back in 10/05/2015, at which time she was on Dilantin and Depakote. Her Depakote level has not been checked, whereas Dilantin was 6.6 on 02/10/2020. Her current dose in the hospital is Depakote 1000 mg twice a day, Dilantin 100 mg twice a day and Dilantin 30 mg weekly. Neurology was consulted to address seizure medication dosing. Patient's previous computed tomography scan of head showed old right MCA territory stroke. 2-D echo from 02/11/2020 showed EF between 55-60%. Left atrium is mildly dilated. Mild MR. Review of Systems Patient denies any headache problem with hoarseness, sore throat dysphagia. C omplains of back pain. Patient has left arm spasticity. Seizure disorder. Denies any chest pain shortness of breath wheezing or cough. Denies any abdominal pain, nausea vomiting diarrhea. 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 gout, PANCREATITIS, pseudoseizures. UTI, gallstones, LIPS AND ONE HAND SHAKES SOMETIMES. History of Any Multi-Drug Resistant Organisms: ESBL Date of last positivie culture/infection: 03/18/18 ESBL E.coli MDRO Source:: Urine Past Surgical History: Section, Orthopedic Surgery Additional Past Surgical History / Comment(s): COILS AND STENTS TO BRAIN, repair tendons r/t gout BILATERAL FEET. Past Anesthesia/Blood Transfusion Reactions: No Reported Reaction Additional Past Anesthesia/Blood Transfusion Reaction / Comment(s): PT HAS HAD BLOOD TRANSFUSIONS FOR ANEMIA-NO REACTION. Past Psychological History: Depression, Schizophrenia Additional Psychological History / Comment(s): paranoid schizophrenia Smoking Status: Former smoker Past Alcohol Use History: None Reported Additional Past Alcohol Use History / Comment(s): STARTED SMOKING AT AGE 14, SMOKED 1PPD, QUIT >20 YEARS AGO BUT SMOKED AGAIN BRIEFLY WHEN AT [employer] BUT QUIT 1.5 YERAS AGO Past Drug Use History: Cocaine Additional Drug Use History / Comment(s): No current use. Last used 15 yrs ago. - Past Family History Sister(s) Family Medical History: Myocardial Infarction (AL) Father Family Medical History: Cancer Additional Family Medical History / Comment(s): throat, lung, and rectal cancer Mother Family Medical History: Myocardial Infarction ([place]) Additional Family Medical History / Comment(s): stroke Medications and Allergies Home Medications Medication Instructions Recorded Confirmed Type Phenytoin Sodium Extended 30 mg PO BID 01/03/14 02/09/20 History [Dilantin] Phenytoin Sodium Extended 100 mg PO BID 01/03/14 02/09/20 History [Dilantin] Aspirin EC [Ecotrin Low Dose] 81 mg PO DAILY 04/12/16 02/09/20 History ARIPiprazole [Abilify] 15 mg PO HS 01/04/17 02/09/20 History Furosemide [Lasix] 40 mg PO DAILY 01/04/17 02/09/20 History Metoprolol Tartrate 100 mg PO BID 01/04/17 02/09/20 History Sertraline [Zoloft] 100 mg PO QAM 01/04/17 02/09/20 History Allopurinol [Zyloprim] 100 mg PO DAILY 02/09/20 02/09/20 History Colchicine [Colcrys] 0.6 mg PO DAILY 02/09/20 02/09/20 History Omeprazole [PriLOSEC] 20 mg PO DAILY 02/09/20 02/09/20 History Amoxicillin/Potassium Clav 1 tab PO BID 3 Days #10 tab 02/13/20 Rx [Augmentin 875-125 Tablet] Atorvastatin [Lipitor] 20 mg PO HS #30 tab 02/13/20 Rx Divalproex [Depakote] 1,000 mg PO BID #0 02/13/20 02/09/20 Rx Allergies Allergy/AdvReac Type Severity Reaction Status Date / Time No Known Allergies Allergy Verified 02/09/20 15:08 Physical Examination - Vital Signs Vital Signs: Vital Signs Temp Pulse Resp BP Pulse Ox 02/13/20 14:50 98.1 F 62 16 116/75 94 L 02/13/20 06:41 97.7 F 71 16 115/74 94 L 02/13/20 02:08 98.7 F 61 17 122/85 97 02/12/20 19:03 98.6 F 67 16 119/81 98 Intake and Output 02/13/20 02/13/20 02/13/20 06:59 14:59 22:59 Intake Total 540 Output Total 275 Balance -275 540 Intake: Oral 540 Output: Urine 275 Other: # Voids 1 1 # Bowel Movements 1 Weight 53.161 kg On examination patient is a middle aged [place] female, in no acute distress. Patient is alert and awake, fully oriented to time place and person. Speech and language functions are normal. Attention and concentration fund of knowledge is adequate. On cranial examination pupils are round and reactive to light, visual campoverde revealed homonymous left lower quadrantanopia. Extraocular muscles are intact with no nystagmus. Face is symmetric and tongue protrudes the midline. Palatal elevation and sensation normal. Hearing and shoulder shrug normal. On muscle strength testing patient is normal strength in the right arm and both legs. On the left arm, hip biceps and triceps are normal. 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 Sensations to touch is decreased in the left arm as compared to the right. Patient is spastic in the left arm. Reflexes are diminished and plantars are downgoing. Bulk of muscles is normal. Gait deferred. No obvious bruit, S1 and S2 audible. No peripheral edema. Abdomen is soft nontender. Chest is clear. Results - Laboratory Findings CBC and BMP: 02/12/20 09:28 02/12/20 09:28 Abnormal Lab Findings: Abnormal Labs 02/09/20 02/09/20 02/11/20 12:37 12:37 08:46 Hgb 10.1 L Hct 32.9 L MCV MCH 24.7 L MCHC 30.7 L RDW 15.9 H Plt Count Neutrophils # (Manual) 1.08 L Chloride 112 H 118 H Carbon Dioxide 20 L 15 L BUN 49 H 41 H Creatinine 1.75 H 1.10 H Glucose 118 H Alkaline Phosphatase 128 H 134 H Albumin 3.4 L 02/11/20 02/12/20 02/12/20 09:53 09:28 09:28 Hgb 10.4 L 11.2 L Hct 32.5 L MCV 79.1 L MCH 23.9 L MCHC 29.2 L RDW 16.1 H 15.9 H Plt Count 128 L Neutrophils # (Manual) Chloride 113 H Carbon Dioxide 16 L BUN 40 H Creatinine 1.21 H Glucose Alkaline Phosphatase Albumin Assessment and Plan Assessment: * 59-year-old female with long-standing history of seizure disorder, has been seizure-free for the past 2 years. Patient admitted to the hospital for back pain, found to have L2 compression fracture, perhaps subacute to chronic. Rule out osteoporosis. * History of right MCA territory stroke, with residual left arm spastic paresis. * Hypertension Plan: * I spoke to patient and her son in detail. Apparently they do not want to make any changes in her seizure medication. Patient very closely follows up with her neurologist Dr. Nieves. I informed patient's son that her Dilantin level is low, but he preferred management of seizure medications by her outside neurologist. At present she is on Dilantin 100 mg twice a day and 30 mg orally once a week every Thursday. Also on Depakote 1000 mg in the morning a nd 750 mg at night. * Patient has compression fracture. No history of trauma. Long-term Dilantin therapy can be associated with osteoporosis. Patient may need further testing to rule out osteoporosis/osteopenia with DEXA scan as outpatient. If abnormal, then may need appropriate treatment, and would consider switching to alternate/newer antiepileptic medication. * Neurologically clear for discharge.
--- NOTE | 2020-02-14 08:16 | EEG ---
ELECTROENCEPHALOGRAM REPORT DATE OF SERVICE: 02/13/2020 PREAMBLE: This is a 59-year-old female with a history of seizure disorder. EEG FINDINGS: This is a 21-channel routine EEG recording in a patient utilizing 10-20 international system with referential and bipolar montages. The background consists of well- developed, moderately well regulated, mixed frequencies in 8 to 9 hertz alpha with some intermittent theta activity seen. Photic driving response is not clearly seen. Different stages of sleep were not seen. There is frequent, intermittent, multifocal and dysrhythmic focal slowing seen, mostly in the right temporal, and some in the left frontotemporal region. Some sharply contoured waves were seen but did not appear clearly epileptiform. No electrographic seizure was recorded. IMPRESSION: This is an abnormal EEG due to background disorganization, intermittent focal slowing in the above-described region. This is suggestive of focal cortical neuronal dysfunction, superimposed on mild encephalopathy. No definitive epileptiform activity was seen. If your suspicion for seizures is high, suggest prolonged, sleep-deprived EEG. MMODL / IJN: [id number] / MTDD
--- NOTE | 2020-02-14 12:29 | P.DS ---
Providers Date of admission: 02/09/20 11:15 Expected date of discharge: 02/14/20 Attending physician: Mohit Harley Consults: 02/09/20 12:34 Consult Physician Routine Consulting Provider: Mitch Callahan Consult Reason/Comments: cap Do you want consulting provider notified?: Yes Placement Type Exists?: Yes 02/09/20 12:35 Consult Physician Routine Consulting Provider: Alexia Jacobsen Consult Reason/Comments: vertebral fracture l2 Do you want consulting provider notified?: Yes Placement Type Exists?: Yes 02/10/20 22:32 Consult Physician Routine Consulting Provider: Chino Earl Consult Reason/Comments: coronary calcification Do you want consulting provider notified?: Yes 02/10/20 22:34 Consult Physician Routine Consulting Provider: Sylwia Spivey Consult Reason/Comments: ams Do you want consulting provider notified?: Yes Primary care physician: [facility] Hospital Course: Final Diagnoses: Bilateral basal pneumonia, suspect community-acquired pneumonia Atypical chest pain, acute coronary event ruled out as per cardiology. Chronic back pain with L2 compression fracture, possibly subacute to chronic, possibly osteoporosis, further follow-up outpatient. Outpatient DEXA scan. Calcified coronary arteries reported per CT Hypertension Seizure disorder. Dilantin level subtherapeutic. Patient, son declining adjustments in seizure medications-States they follow closely with neurologist Dr. Abbasi. Refer to neurology's consult note. Gastroesophageal reflux disease Mood disorder Depression Chronic gout Hospital course: this a 59-year-old female admitted with multiple medical issues including chest pain, right basilar pneumonia, seizure disorder.Echocardiogram 02/11/2020 = EF 55-60%, LA mildly dilated. Mild MR. Mild TR. Maintained on IV antibiotics. Evaluated by cardiology, neurology, pulmonary and orthopedic spine surgery. Significant clinical improvement. PT/OT recommended subacute rehab- declined subacute rehab. Patient is being discharged home today in stable condition with guarded prognosis. Please refer to EMR for further details. The impression and plan of care has been dictated as directed. : I performed a history and examination of this patient, discussed the same with the dictator. I agree with the dictator's note ,documented as a scribe. Any additional findings or plans will be noted. Patient Condition at Discharge: Stable Plan - Discharge Summary Discharge Rx Participant: No New Discharge Prescriptions: New Amoxicillin/Potassium Clav [Augmentin 875-125 Tablet] 1 tab PO BID 3 Days #10 tab Atorvastatin [Lipitor] 20 mg PO HS #30 tab Continue Phenytoin Sodium Extended [Dilantin] 100 mg PO BID Phenytoin Sodium Extended [Dilantin] 30 mg PO BID Aspirin EC [Ecotrin Low Dose] 81 mg PO DAILY Sertraline [Zoloft] 100 mg PO QAM Metoprolol Tartrate 100 mg PO BID Furosemide [Lasix] 40 mg PO DAILY ARIPiprazole [Abilify] 15 mg PO HS Allopurinol [Zyloprim] 100 mg PO DAILY Omeprazole [PriLOSEC] 20 mg PO DAILY Colchicine [Colcrys] 0.6 mg PO DAILY Changed Divalproex [Depakote] 1,000 mg PO BID #0 Discontinued Divalproex [Depakote] 250 mg PO HS Divalproex [Depakote] 500 mg PO HS Sertraline [Zoloft] 25 mg PO DAILY Discharge Medication List Phenytoin Sodium Extended [Dilantin] 30 mg PO BID 01/03/14 [History] Phenytoin Sodium Extended [Dilantin] 100 mg PO BID 01/03/14 [History] Aspirin EC [Ecotrin Low Dose] 81 mg PO DAILY 04/12/16 [History] ARIPiprazole [Abilify] 15 mg PO HS 01/04/17 [History] Furosemide [Lasix] 40 mg PO DAILY 01/04/17 [History] Metoprolol Tartrate 100 mg PO BID 01/04/17 [History] Sertraline [Zoloft] 100 mg PO QAM 01/04/17 [History] Allopurinol [Zyloprim] 100 mg PO DAILY 02/09/20 [History] Colchicine [Colcrys] 0.6 mg PO DAILY 02/09/20 [History] Omeprazole [PriLOSEC] 20 mg PO DAILY 02/09/20 [History] Amoxicillin/Potassium Clav [Augmentin 875-125 Tablet] 1 tab PO BID 3 Days #10 tab 02/13/20 [Rx] Atorvastatin [Lipitor] 20 mg PO HS #30 tab 02/13/20 [Rx] Divalproex [Depakote] 1,000 mg PO BID #0 02/13/20 [Rx] Follow up Appointment(s)/Referral(s): Efraín Olmedo MD [REFERRING] - 1 Week Josh Palomares PAC [PHYSICIAN AUTOMATION ARCHITECT] - 2 Weeks (Patient may follow up with Josh Palomares PA-C or Dr. Primitivo Jacobsen at [facility] in approximately 2-3 weeks for further evaluation) Mohit Harley MD [Primary Care Provider] - 3 Days Mitch Callahan MD [STAFF PHYSICIAN] - 2 Weeks [facility] Vis[facility] Nurse, [NON-STAFF] - As Needed Ian Millan [NON-STAFF] - As Needed (LSO back brace) Ambulatory/Diagnostic Orders: Complete Blood Count w/diff [LAB.AMB] Time Frame: 3 Days, Location: None Selected Patient Instructions/Handouts: Pneumonia (DC) Activity/Diet/Wound Care/Special Instructions: Final Dilantin and Depakote dosing as per neurology, pending. Pending final DC recommendations, anticonvulsants, clearance for DC as per neuro. patient declining subacute rehab, cleared with guardian as per perinatal social worker 1. Patient should wear LSO brace while sitting upright at greater than 45, during increase activities, during ambulation. 2. Brace does not have to or while lying in bed or while bathing. Discharge Disposition: HOME WITH HOME HEALTH SERVICES
== END 2020-02-13 18:48 | disposition home health service (06) | DRG 194 ==
LOC: 4SSUR 11:15
PROVIDERS: ADMIT Family Medicine; ATTEND Family Medicine
PROC: 05H933Z Insertion of Infusion Device into Right Brachial Vein, Percutaneous Approach (ICD-10-PCS; principal; 2020-02-09 12:45)
DX: J18.9 Pneumonia, unspecified organism (principal); I69.354 Hemiplegia and hemiparesis following cerebral infarction affecting left non-dominant side; M48.56XA Collapsed vertebra, not elsewhere classified, lumbar region, initial encounter for fracture; F20.0 Paranoid schizophrenia; Z87.891 Personal history of nicotine dependence; I11.9 Hypertensive heart disease without heart failure; G89.29 Other chronic pain; I25.10 Atherosclerotic heart disease of native coronary artery without angina pectoris; K21.9 Gastro-esophageal reflux disease without esophagitis; M1A.9XX0 Chronic gout, unspecified, without tophus (tophi); Z87.440 Personal history of urinary (tract) infections; Z20.828 Contact with and (suspected) exposure to other viral communicable diseases; M25.78 Osteophyte, vertebrae; R07.89 Other chest pain; M81.0 Age-related osteoporosis without current pathological fracture; G40.409 Other generalized epilepsy and epileptic syndromes, not intractable, without status epilepticus; F32.9 Major depressive disorder, single episode, unspecified; Z79.82 Long term (current) use of aspirin; Z79.899 Other long term (current) drug therapy; Z80.0 Family history of malignant neoplasm of digestive organs; Z82.3 Family history of stroke; Z82.49 Family history of ischemic heart disease and other diseases of the circulatory system; Z80.8 Family history of malignant neoplasm of other organs or systems
CPT/HCPCS: 36410; 71250; 72100; 80053; 80185; 81003; 83605; 84484; 85025; 93005; 93306; 95816

== ENCOUNTER 2020-04-23 15:13 | Inpatient (IN) | payer OTHER ==
[2020-04-23] MEDS ORDERED: SODIUM CHLORIDE 0.9% 1,000 ML IV STA (15:55)
[2020-04-23 17:35] LABS: Albumin 3.9 g/dL (3.5-5.0); Potassium 3.8 mmol/L (3.5-5.1); Total Bilirubin 0.6 mg/dL (0.2-1.3); Total Protein 7.1 g/dL (6.3-8.2)
--- NOTE | 2020-04-23 18:17 | XR ---
EXAMINATION TYPE: XR KUB DATE OF EXAM: 04/23/2020 COMPARISON: NONE HISTORY: Diarrhea. Weakness TECHNIQUE: Single view FINDINGS: There is no sign of intestinal obstruction or pneumoperitoneum. Fecal pattern is normal. Th ere is no evidence of a mass. There are numerous phleboliths in the pelvis. There is vascular calcifi cation. There are no pathologic calcifications over the kidneys. IMPRESSION: Nonacute abdomen.
--- NOTE | 2020-04-23 18:20 | XR ---
EXAMINATION TYPE: XR chest 2V DATE OF EXAM: 04/23/2020 COMPARISON: 05/17/2017 HISTORY: Weakness TECHNIQUE: FINDINGS: There is no heart failure nor confluent pneumonic infiltrate. There is slight coarsening of the lung markings. Heart size is normal. There are no hilar masses. The bony thorax is intact. There is some osteopenia. There is probably mild compression deformity of mid thoracic vertebra. IMPRESSION: Increased interstitial markings compared to old exam could relate to some mild fibrosis o r interstitial pneumonia. No heart failure.
[2020-04-23 18:52] LABS: Amorphous Sediment,Urine Rare /hpf; Appearance,Urine Cloudy (Clear); Bacteria,Urine Few /hpf; Bilirubin,Urine Negative (Negative); Blood,Urine Negative (Negative); Color,Urine Light Yellow; Glucose,Urine (UA) Negative (Negative); Ketones,Urine 1+ (Negative); Leukocyte Esterase,Urine Large (Negative); Nitrite,Urine Positive (Negative); PH, Urine 5.5 (5.0-8.0); Protein,Urine Negative (Negative); RBC,Urine 1 /hpf (0-5); Specific Gravity,Urine 1.011 (1.001-1.035); Squamous Epithelial Cell,Urine 1 /hpf (0-4); Urobilinogen,Urine <2.0 mg/dL (<2.0); WBC,Urine 11 /hpf (0-5)
[2020-04-23] MEDS ORDERED: AZITHROMYCIN 500 MG in SODIUM CHLORIDE 0.9% 250 ML IVPB STA (18:55)
[2020-04-23] MEDS: SODIUM CHLORIDE 0.9% 1,000 ML IV SCH (19:01)
--- NOTE | 2020-04-23 19:48 | CT ---
EXAMINATION TYPE: CT abdomen pelvis wo con DATE OF EXAM: 04/23/2020 COMPARISON: 02/05/2020 HISTORY: Abdominal pain, not able to eat, weakness. CT DLP: 421 mGycm Automated exposure control for dose reduction was used. Images obtained from the diaphragm to the floor the pelvis without contrast. There is some mild infiltrate and atelectasis at the lung bases. Heart size is normal. There is no pe ricardial effusion. There are calcified small splenic granulomata. Liver shows no focal defect. The bile ducts are not di lated. Stomach is intact. There is no pancreatic mass. There is no adrenal mass. Kidneys have normal size. There is no hydronephrosis. There is no retroperi toneal adenopathy. Nodular small density lower pole of the right kidney on the posterior aspect is pr obably atypical cyst and not changed or smaller compared to old exam. Bladder distends smoothly. Ther e are numerous phleboliths in the pelvis. Uterus is anteverted. There is no evidence of a pelvic mass . There is no evidence of thickened appendix. Appendix is not definitely seen. There is no mesenteric edema. There is no ascites or free air. There is no bowel obstruction. There i s no intestinal wall thickening. Lumbar vertebra have normal alignment. There is 30% anterior wedging of L2 vertebral body that appear s old. The bony pelvis is intact. The hip joints are intact. IMPRESSION: Interstitial infiltrates and atelectasis at the lung bases unchanged. No acute abnormality within the abdomen and pelvis.
[2020-04-23] MEDS ORDERED: NALOXONE 0.4 MG/ML 1 ML VIAL IV PRN (20:17)
--- NOTE | 2020-04-23 20:34 | ED ---
General Adult HPI - General Chief complaint: Weakness Stated complaint: not able to eat, weakness Time Seen by Provider: 04/23/20 15:39 Source: patient, family, RN notes reviewed, old records reviewed Mode of arrival: ambulatory Limitations: no limitations - History of Present Illness Initial comments: 60-year-old female patient proceeded for evaluation of diarrhea weakness decreased appetite and intake. Patient has a caregiver. Patient was reportedly at a card game about a week ago and there is some concern for possible COVID although none of the other members reportedly tested positive for her symptoms. Denies any chest pain, does reported mild abdominal discomfort. Patient was seen by her primary care provider who recommended admission for dehydration. Systemic: Pt denies fatigue, fever/chills, rash. Pt denies weakness, night sweats, weight loss. Neuro: Pt denies headache, visual disturbances, syncope or pre-syncope. HEENT: Pt denies ocular discharge or irritation, otalgia, rhinorrhea, pharyngitis or notable lymphadenopathy. Cardiopulmonary: Pt denies chest pain, SOB, heart palpitations, dyspnea on exertion. : Pt denies dysuria, burning w/ urination, frequency/urgency. Denies new onset urinary or bowel incontinence. MSK: Pt denies myalgia, loss of strength or function in extremities. Neuro: Pt denies new onset weakness, paresthesias. - Related Data Home Medications Medication Instructions Recorded Confirmed Aspirin EC [Ecotrin Low Dose] 81 mg PO DAILY 04/12/16 04/23/20 Furosemide [Lasix] 40 mg PO DAILY 01/04/17 04/23/20 Metoprolol Tartrate 100 mg PO BID 01/04/17 04/23/20 Sertraline [Zoloft] 100 mg PO DAILY 01/04/17 04/23/20 Colchicine [Colcrys] 0.6 mg PO DAILY 02/09/20 04/23/20 Omeprazole [PriLOSEC] 20 mg PO DAILY 02/09/20 04/23/20 allopurinoL [Zyloprim] 100 mg PO DAILY 02/09/20 04/23/20 ARIPiprazole [Abilify] 15 mg PO HS 04/23/20 04/23/20 Divalproex Sodium [Depakote] 500 mg PO HS 04/23/20 04/23/20 Divalproex [Depakote] 1,000 mg PO DAILY 04/23/20 04/23/20 Divalproex [Depakote] 250 mg PO HS 04/23/20 04/23/20 Sertraline [Zoloft] 25 mg PO DAILY 04/23/20 04/23/20 Previous Rx's Medication Instructions Recorded Atorvastatin [Lipitor] 20 mg PO HS #30 tab 02/13/20 Allergies Allergy/AdvReac Type Severity Reaction Status Date / Time No Known Allergies Allergy Verified 04/23/20 17:11 Review of Systems ROS Statement: Those systems with pertinent positive or pertinent negative responses have been documented in the HPI. ROS Other: All systems not noted in ROS Statement are negative. 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 gout, PANCREATITIS, pseudoseizures. UTI, gallstones, LIPS AND ONE HAND SHAKES SOMETIMES. History of Any Multi-Drug Resistant Organisms: ESBL Date of last positivie culture/infection: 03/18/18 ESBL E.coli MDRO Source:: Urine Past Surgical History: Section, Orthopedic Surgery Additional Past Surgical History / Comment(s): COILS AND STENTS TO BRAIN, repair tendons r/t gout BILATERAL FEET. Past Anesthesia/Blood Transfusion Reactions: No Reported Reaction Additional Past Anesthesia/Blood Transfusion Reaction / Comment(s): PT HAS HAD BLOOD TRANSFUSIONS FOR ANEMIA-NO REACTION. Past Psychological History: Depression, Schizophrenia Smoking Status: Former smoker Past Alcohol Use History: None Reported Past Drug Use History: Cocaine - Past Family History Sister(s) Family Medical History: Myocardial Infarction ([place]) Father Family Medical History: Cancer Additional Family Medical History / Comment(s): throat, lung, and rectal cancer Mother Family Medical History: Myocardial Infarction ([place]) Additional Family Medical History / Comment(s): stroke General Exam - General Exam Comments Initial Comments: Constitutional: NAD, AOX3, Pt has pleasant affect. HEENT: NC/AT, trachea midline, neck supple, no lymphadenopathy. External ears appear normal, without discharge. Mucous membranes moist. Eyes PERRLA, EOM int act. There is no scleral icterus. No pallor noted. Cardiopulmonary: RRR, no murmurs, rubs or gallops, no JVD noted. Lungs CTAB in anterior and posterior campoverde. No peripheral edema. Abdominal exam: Abdomen soft and non-distended. Abdomen moderately tender to palpation periumbilical region.. Bowel sounds active in LLQ. No hepatosplenomegaly. No ecchymosis Neuro: CN II-XII intact. No nuchal rigidity. No raccon eyes, no dunn sign, no hemotympanum. No cervical spinal tenderness. MSK: Posterior tibialis and radial pulse +2 bilaterally. Sensation intact in upper and lower extremities. Full active ROM in upper and lower extremities, 5/5 stregnth. Limitations: no limitations Course Vital Signs 04/23/20 04/23/20 04/23/20 15:15 17:49 19:52 Temperature 98.4 F Pulse Rate 77 74 97 Respiratory 16 18 18 Rate Blood Pressure 106/75 101/69 107/79 O2 Sat by Pulse 100 96 97 Oximetry 04/23/20 20:36 Temperature 98.4 F Pulse Rate 97 Respiratory 18 Rate Blood Pressure 107/79 O2 Sat by Pulse 97 Oximetry Medical Decision Making - Medical Decision Making 60-year-old female patient presents to ED for evaluation of dehydration abdominal pain nausea vomiting patient vital signs are stable, afebrile. Phys ical exam slight mild umbilical tenderness. There was great difficulty to obtain labs. CMP consistent with prerenal acute kidney injury. Patient was administered a fluid bolus and Premarin maintenance fluids. UA is positive for nitrites. Antibiotics were started. Chest x-ray displayed mild increased interstitial markings possible fibrosis or interstitial pneumonia. CT abdomen and pelvis did not display any acute processes within the abdomen and pelvis. Patient has not had any upper respiratory symptoms. Was given 1 dose of Rocephin and azithromycin. Will be admitted for further evaluation. Case discussed with Dr. Arguello. - Lab Data Result diagrams: 04/23/20 16:59 Lab Results 04/23/20 04/23/20 04/23/20 Range/Units 16:59 16:59 17:19 Sodium 134 L (137-145) mmol/L Potassium 3.8 (3.5-5.1) mmol/L Chloride 103 (98-107) mmol/L Carbon Dioxide 17 L (22-30) mmol/L Anion Gap 14 mmol/L BUN 80 H (7-17) mg/dL Creatinine 2.27 H (0.52-1.04) mg/dL Est GFR (CKD-EPI)AfAm 26 (>60 ml/min/1.73 sqM) Est GFR (CKD-EPI)NonAf 22 (>60 ml/min/1.73 sqM) Glucose 66 L (74-99) mg/dL Plasma Lactic Acid Shen 0.6 L (0.7-2.0) mmol/L Calcium 9.0 (8.4-10.2) mg/dL Magnesium (1.6-2.3) mg/dL Total Bilirubin 0.6 (0.2-1.3) mg/dL AST 75 H (14-36) U/L ALT 30 (4-34) U/L Alkaline Phosphatase 94 (38-126) U/L Troponin I 0.027 (0.000-0.034) ng/mL Total Protein 7.1 (6.3-8.2) g/dL Albumin 3.9 (3.5-5.0) g/dL Urine Color Urine Appearance (Clear) Urine pH (5.0-8.0) Ur Specific Moose (1.001-1.035) Urine Protein (Negative) Urine Glucose (UA) (Negative) Urine Ketones (Negative) Urine Blood (Negative) Urine Nitrite (Negative) Urine Bilirubin (Negative) Urine Urobilinogen (<2.0) mg/dL Ur Leukocyte Esterase (Negative) Urine RBC (0-5) /hpf Urine WBC (0-5) /hpf Ur Squamous Epith Cells (0-4) /hpf Amorphous Sediment (None) /hpf Urine Bacteria (None) /hpf Valproic Acid 65.0 ug/mL 04/23/20 04/23/20 Range/Units 17:51 17:59 Sodium (137-145) mmol/L Potassium (3.5-5.1) mmol/L Chloride (98-107) mmol/L Carbon Dioxide (22-30) mmol/L Anion Gap mmol/L BUN (7-17) mg/dL Creatinine (0.52-1.04) mg/dL Est GFR (CKD-EPI)AfAm (>60 ml/min/1.73 sqM) Est GFR (CKD-EPI)NonAf (>60 ml/min/1.73 sqM) Glucose (74-99) mg/dL Plasma Lactic Acid Shen (0.7-2.0) mmol/L Calcium (8.4-10.2) mg/dL Magnesium 1.9 (1.6-2.3) mg/dL Total Bilirubin (0.2-1.3) mg/dL AST (14-36) U/L ALT (4-34) U/L Alkaline Phosphatase (38-126) U/L Troponin I (0.000-0.034) ng/mL Total Protein (6.3-8.2) g/dL Albumin (3.5-5.0) g/dL Urine Color Light Yellow Urine Appearance Cloudy H (Clear) Urine pH 5.5 (5.0-8.0) Ur Specific Moose 1.011 (1.001-1.035) Urine Protein Negative (Negative) Urine Glucose (UA) Negative (Negative) Urine Ketones 1+ H (Negative) Urine Blood Negative (Negative) Urine Nitrite Positive H (Negative) Urine Bilirubin Negative (Negative) Urine Urobilinogen <2.0 (<2.0) mg/dL Ur Leukocyte Esterase Large H (Negative) Urine RBC 1 (0-5) /hpf Urine WBC 11 H (0-5) /hpf Ur Squamous Epith Cells 1 (0-4) /hpf Amorphous Sediment Rare H (None) /hpf Urine Bacteria Few H (None) /hpf Valproic Acid ug/mL - EKG Data -: EKG Interpreted by Me (and Dr. Arguello ) EKG Comments: ventricular rate 75,. Full 160, QRS 78, QT/QTC 368/410. Normal sensory rhythm, low voltage QRS. Nonspecific T-wave abnormality.No concern for acute ischemia this time. Disposition Clinical Impression: UTI (urinary tract infection), Prerenal renal failure, Abdominal pain, Pulmonary infiltrates Disposition: ADMITTED IP TO THIS HOSP Is patient prescribed a controlled substance at d/c from ED?: No
[2020-04-23 21:16] LABS: Glucose,Whole Blood 58 mg/dL (75-99)
[2020-04-23] MEDS ORDERED: DEXTROSE 50% SYRINGE 50 ML IVP ONE (21:22)
[2020-04-23 21:43] LABS: Glucose,Whole Blood 178 mg/dL (75-99)
[2020-04-24] MEDS: SODIUM CHLORIDE 0.9% 1,000 ML IV SCH ×4 (04:17→20:22)
[2020-04-24 06:17] LABS: Glucose,Whole Blood 98 mg/dL (75-99)
[2020-04-24] MEDS ORDERED: METOPROLOL TARTRATE 50 MG TAB PO SCH (09:00)
[2020-04-24] MEDS ORDERED: DIVALPROEX 500 MG TABLET.DR PO SCH (09:00)
[2020-04-24] MEDS: SERTRALINE 25 MG TAB PO SCH (09:17)
[2020-04-24] MEDS: ASPIRIN 81 MG PO SCH (09:17)
[2020-04-24] MEDS: allopurinoL 100 MG TAB PO SCH (09:17)
[2020-04-24] MEDS: SERTRALINE 100 MG TAB PO SCH (09:18)
[2020-04-24 09:50] LABS: Calcium 8.4 mg/dL (8.4-10.2); Potassium 3.3 mmol/L (3.5-5.1)
[2020-04-24 09:56] LABS: Anisocytosis Slight; Basophils % (A) 0 %; Eosinophils # (A) 0.7 k/uL (0-0.7); Eosinophils % (A) 12 %; HCT 32.4 % (34.0-46.0); HGB 10.4 gm/dL (11.4-16.0); Lymphocytes # (A) 2.5 k/uL (1.0-4.8); Lymphocytes % (A) 41 %; MCH 24.6 pg (25.0-35.0); MCV 76.7 fL (80.0-100.0); Mean Platelet Volume 9.2; Microcytosis Slight; Monocytes # (A) 0.5 k/uL (0-1.0); Monocytes % (A) 8 %; Neutrophils # (A) 2.2 k/uL (1.3-7.7); Neutrophils % (A) 38 %; RBC 4.23 m/uL (3.80-5.40); WBC 5.9 k/uL (3.8-10.6)
[2020-04-24] MEDS: PANTOPRAZOLE 40 MG TABLET PO SCH (10:43)
[2020-04-24] MEDS: DIVALPROEX 250 MG TABLET.DR PO SCH ×2 (10:43→20:20)
--- NOTE | 2020-04-24 10:50 | HP ---
HISTORY AND PHYSICAL DATE OF SERVICE: 04/23/2020 in the ER. Seen Jeane Urbano who is a 60-year-old white female in the emergency room. She had diarrhea for 7 days after playing Euchre at the [employer]. Not sure if she has Covid exposure there or not. She came to the hospital with severe lightheaded and dizziness and some shortness of breath and severe dehydration after having 7-10 bowel movements a day for the last 7 days. Unable to keep any oral liquids down. MEDICATIONS: Home medicines: She takes aspirin 81 mg daily, Lasix 40 mg daily, metoprolol 100 b.i.d., Zoloft 100 daily, Colcrys 0.6 mg daily, Prilosec 20 mg daily, Zyloprim 100 mg daily, Abilify 15 q.h.s., Depakote 500 q.h.s. and 1000 in the morning and 250 also at night, so that would be Depakote 1000 in the morning and 750 at night, Zoloft 25 mg daily. ALLERGIES: Negative. PAST MEDICAL HISTORY: CVA, TIA, anemia, CVA with left arm weakness, history of pancreatitis, gout, gallstones, UTI, pseudoseizures, ESBL in the urine, , orthopedic surgery, stents in the brain, tendons repair in the feet, blood transfusions for anemia, prior cocaine user. She has history of depression, schizophrenia. PAST FAMILY HISTORY: Sister, myocardial infarction. Father with cancer of the throat, lung and rectal. Mother myocardial infarction and stroke. REVIEW OF SYSTEMS: Fourteen-point review of systems as mentioned above is negative except for mentioned in HPI. PHYSICAL EXAMINATION: She looks weak and fatigued. INTEGUMENT: Dry skin, turgor, dry mucous membranes. Poor skin turgor. CARDIOVASCULAR: S1, S2. LUNGS: Mild wheezes x4. MUSCULOSKELETAL: She has lordotic kyphotic spine. Bowel sounds are active. Hyperactive increased bowel sounds. No hepatosplenomegaly. Negative Keene. Negative Rovsing's. NEUROLOGIC: Cranial nerves are intact. PSYCH: Fair mood and affect. She has 4/5 strength in 4 limb extremities. VITAL SIGNS: Temp 98.4, pulse 70s to 90s, blood pressure low 100s over 60s to 70s. O2 96-110. ASSESSMENT: This is a 60-year-old white female presents with dehydration, nausea, vomiting, diarrhea, acute abdominal pain. She has a prerenal acute kidney injury, acute tubular necrosis, dehydration problem, possible ESBL in the urine. Antibiotics started. Chest x-ray showed fibrosis versus interstitial pneumonia. CT scan abdomen and pelvis did not show any obvious things in the abdomen. Continue with Rocephin and Azithromycin. Rehydrate. MMODL / IJN: [id number] /
[2020-04-24 11:04] LABS: Platelet Count 71 k/uL (150-450)
[2020-04-24] MEDS ORDERED: Potassium Replacement Protocol 1 EACH MISC MISCELLANE PRN ×2 (11:13→11:16)
[2020-04-24 11:32] VITALS: BMI 21.4
[2020-04-24 12:04] LABS: Glucose,Whole Blood 84 mg/dL (75-99)
[2020-04-24] MEDS: COLCHICINE 0.6 MG EACH PO SCH (12:16)
[2020-04-24] MEDS: POTASSIUM CHLORIDE ER 20 MEQ TAB.ER PO SCH ×2 (12:16→16:12)
--- NOTE | 2020-04-24 16:02 | CONS ---
CONSULTATION REASON FOR CONSULT: Renal failure. HISTORY OF PRESENT ILLNESS: Patient is a 60-year-old female who was admitted to the hospital with a history of increased weakness. She also had diarrhea. Patient stated her kidney function was weak. The patient denied any significant urinary symptoms. She was noted to have a serum creatinine of 2.27 on admission. Review of previous labs shows a creatinine of 1.2 on 02/12/2020. The patient's blood pressure was low with systolic below 100, around 85 to 89 mmHg on admission. She is currently maintained on IV fluids. Patient was not on any significant nephrotoxic medications at home. PAST MEDICAL HISTORY: Past medical history is significant for CVA with residual left arm weakness, history of pancreatitis, pseudoseizures, UTI, gout. PAST SURGICAL HISTORY: . Coils and stents to brain. SOCIAL HISTORY: Negative for smoking. Patient is a former smoker. There is history of cocaine abuse. There is also previous history of depression and schizophrenia. MEDICATIONS: Medications at home prior to admission included Lasix, metoprolol, Zoloft, Colcrys, Prilosec, Zyloprim, Depakote, Lipitor. ALLERGIES: NONE. REVIEW OF SYSTEMS: As per HPI. Other systems negative. PHYSICAL EXAMINATION: Patient is comfortable, awake, not in any acute distress. Alert and oriented. Blood pressure is 89/57, heart rate 76 per minute. She is afebrile. EXAMINATION OF THE HEART: S1 and S2. EXAMINATION OF LUNGS: Bilateral breath sounds are heard. ABDOMEN: Soft, non-tender. Examination of lower extremities shows no evidence of edema. EAR[employer] DIRECTOR exam shows patient is moving all 4 extremities, although she is not moving her legs much at this time. LABS: Labs show sodium 140, potassium 3.3, chloride 112. CO2 is 21, BUN 60, creatinine 1.5, hemoglobin 10.4 g/dL. UA shows nitrite positive, 1+ ketone, no protein, no blood, WBCs 11. ASSESSMENT: 1. Acute kidney injury secondary to hypotension, volume depletion, currently improved with IV fluids. 2. Hypokalemia associated with decreased oral intake and loop diuretics prior to admission. We will replace. 3. Pyuria. Rule out urinary tract infection. 4. History of gout. PLAN: Continue with IV fluids. Monitor urine output. Hold off on diuretics. Continue empiric antibiotics. Follow up on urine cultures. Repeat labs in a.m. Hold off on Lopressor. Decrease dose and repeat labs in a.m. Thank you for this consultation. Will continue to follow the patient with you during her hospitalization. JOURDAN / LYLEN: [id number] /
[2020-04-24 17:03] LABS: Glucose,Whole Blood 81 mg/dL (75-99)
--- NOTE | 2020-04-24 18:01 | P.CNPUL ---
History of Present Illness Consult date: 04/24/20 Reason for consult: dyspnea, pneumonia Chief complaint: Shortness of breath, abnormal chest x-ray History of present illness: 60-year-old female who was seen eval reexamined, patient has been admitted to hospital with diarrhea and generalized weakness, patient has problems associated with developmental delay not much data can be obtained from the patient most of the data has been obtained from the chart, chest x-ray noted to have prominent interstitium with a differential diagnoses of pulmonary fibrosis versus inter stitial pneumonia patient room air oxygen saturation 97% she is afebrile him a bit overweight 19 is negative, urine suggestive of UTI however, with a positive nitrite and large leukocyte esterase trace, on arrival her BUN/creatinine is a 80 over 2.2 improved to 60 over 1.5 today, she is being treated with a heart spectrum antibiotics IV, urine culture results are pending, she had a computed tomography scan of the abdominal and pelvis the lower section of the lung which are visible and scan suggestive of mild interstitial prominence infiltrate along with atelectasis Review of Systems All systems: negative Past Medical History Past Medical History: CVA/TIA Additional Past Medical History / Comment(s): ANEMIA, 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 gout, PANCREATITIS, pseudoseizures. UTI, gallstones, LIPS AND ONE HAND SHAKES SOMETIMES. History of Any Multi-Drug Resistant Organisms: ESBL Date of last positivie culture/infection: 03/18/18 ESBL E.coli MDRO Source:: Urine Past Surgical History: Section, Orthopedic Surgery Additional Past Surgical History / Comment(s): COILS AND STENTS TO BRAIN, repair tendons r/t gout BILATERAL FEET. Past Anesthesia/Blood Transfusion Reactions: No Reported Reaction Additional Past Anesthesia/Blood Transfusion Reaction / Comment(s): PT HAS HAD BLOOD TRANSFUSIONS FOR ANEMIA-NO REACTION. Past Psychological History: Depression, Schizophrenia Smoking Status: Former smoker Past Alcohol Use History: None Reported Past Drug Use History: Cocaine - Past Family History Sister(s) Family Medical History: Myocardial Infarction ([place]) Father Family Medical History: Cancer Additional Family Medical History / Comment(s): throat, lung, and rectal cancer Mother Family Medical History: Myocardial Infarction ([place]) Additional Family Medical History / Comment(s): stroke Medications and Allergies Home Medications Medication Instructions Recorded Confirmed Type Aspirin EC [Ecotrin Low Dose] 81 mg PO DAILY 04/12/16 04/23/20 History Furosemide [Lasix] 40 mg PO DAILY 01/04/17 04/23/20 History Metoprolol Tartrate 100 mg PO BID 01/04/17 04/23/20 History Sertraline [Zoloft] 100 mg PO DAILY 01/04/17 04/23/20 History Colchicine [Colcrys] 0.6 mg PO DAILY 02/09/20 04/23/20 History Omeprazole [PriLOSEC] 20 mg PO DAILY 02/09/20 04/23/20 History allopurinoL [Zyloprim] 100 mg PO DAILY 02/09/20 04/23/20 History Atorvastatin [Lipitor] 20 mg PO HS #30 tab 02/13/20 04/23/20 Rx ARIPiprazole [Abilify] 15 mg PO HS 04/23/20 04/23/20 History Divalproex Sodium [Depakote] 500 mg PO HS 04/23/20 04/23/20 History Divalproex [Depakote] 1,000 mg PO DAILY 04/23/20 04/23/20 History Divalproex [Depakote] 250 mg PO HS 04/23/20 04/23/20 History Sertraline [Zoloft] 25 mg PO DAILY 04/23/20 04/23/20 History Allergies Allergy/AdvReac Type Severity Reaction Status Date / Time No Known Allergies Allergy Verified 04/23/20 17:11 Physical Exam Vitals: Vital Signs Temp Pulse Pulse Resp BP BP Pulse Ox 04/24/20 16:00 97.9 F 79 16 99/54 99 04/24/20 11:52 81 92/57 100 04/24/20 08:00 97.7 F 76 16 89/57 99 04/24/20 04:00 98.0 F 79 16 93/57 99 04/24/20 00:00 97.9 F 73 16 85/54 97 04/23/20 21:11 97.9 F 68 16 95/51 100 04/23/20 20:36 98.4 F 97 18 107/79 97 04/23/20 19:52 97 18 107/79 97 Intake and Output 04/24/20 04/24/20 04/24/20 06:59 14:59 22:59 Intake Total 720 Output Total 220 Balance -220 720 Intake: Oral 720 Output: Urine 220 Other: Voiding Method Bedpan # Voids 1 1 Weight 51.5 kg 51.5 kg - Constitutional General appearance: cooperative, disheveled - EENT Eyes: PERRLA Ears: bilateral: normal - Neck Carotids: bilateral: upstroke normal Thyroid: bilateral: normal size - Respiratory Respiratory: bilateral: diminished - Cardiovascular Rhythm: regular Heart sounds: normal: S1, S2 - Gastrointestinal General gastrointestinal: decreased bowel sounds - Musculoskeletal Musculoskeletal: strength equal bilaterally - Psychiatric Psychiatric: appropriate affect Results - Laboratory Findings CBC and BMP: 04/24/20 08:32 04/24/20 08:32 Abnormal lab findings: Abnormal Labs 04/23/20 04/23/20 04/23/20 16:59 16:59 17:51 Hgb Hct MCV MCH RDW Plt Count Sodium 134 L Potassium Chloride Carbon Dioxide 17 L BUN 80 H Creatinine 2.27 H Glucose 66 L POC Glucose (mg/dL) Plasma Lactic Acid Shen 0.6 L AST 75 H Urine Appearance Cloudy H Urine Ketones 1+ H Urine Nitrite Positive H Ur Leukocyte Esterase Large H Urine WBC 11 H Amorphous Sediment Rare H Urine Bacteria Few H 04/23/20 04/23/20 04/24/20 21:16 21:41 08:32 Hgb 10.4 L Hct 32.4 L MCV 76.7 L MCH 24.6 L RDW 16.0 H Plt Count 71 L Sodium Potassium Chloride Carbon Dioxide BUN Creatinine Glucose POC Glucose (mg/dL) 58 L 178 H Plasma Lactic Acid Shen AST Urine Appearance Urine Ketones Urine Nitrite Ur Leukocyte Esterase Urine WBC Amorphous Sediment Urine Bacteria 04/24/20 08:32 Hgb Hct MCV MCH RDW Plt Count Sodium Potassium 3.3 L Chloride 112 H Carbon Dioxide 21 L BUN 60 H Creatinine 1.51 H Glucose POC Glucose (mg/dL) Plasma Lactic Acid Shen AST Urine Appearance Urine Ketones Urine Nitrite Ur Leukocyte Esterase Urine WBC Amorphous Sediment Urine Bacteria - Diagnostic Findings Chest x-ray: report reviewed, image reviewed (Computed tomography scan of the abdominal and pelvis and lower sectionReviewed) Assessment and Plan Assessment: Sepsis associated with urinary tract infection Urinary tract infection Acute kidney injury Intravascular volume depletion and dehydration Developmental delay Prominent interstitial in the lung likely related to multifactorial process will do designated CAT scan once stable and renal function normalized Plan: Continue deep breathing sense incentive spirometry Supplemental oxygen as needed Continue antibiotics and gentle rehydration Further recommendations pending plan of care as per clinical response of the patient Time with Patient: Greater than 30
[2020-04-24 20:17] LABS: Glucose,Whole Blood 138 mg/dL (75-99)
[2020-04-24] MEDS: ATORVASTATIN 20 MG TAB PO SCH (20:20)
[2020-04-24] MEDS: METOPROLOL TARTRATE 25 MG TAB PO SCH (20:20)
[2020-04-24] MEDS: ARIPiprazole 15 MG TAB PO SCH (20:20)
[2020-04-24] MEDS ORDERED: DIVALPROEX 250 MG TABLET.DR PO SCH (21:00)
[2020-04-25 03:15] LABS: Glucose,Whole Blood 98 mg/dL (75-99)
[2020-04-25] MEDS: PANTOPRAZOLE 40 MG TABLET PO SCH (06:09)
[2020-04-25] MEDS: SODIUM CHLORIDE 0.9% 1,000 ML IV SCH ×3 (06:10→20:19)
[2020-04-25 06:16] LABS: Glucose,Whole Blood 105 mg/dL (75-99)
--- NOTE | 2020-04-25 07:38 | PN ---
PROGRESS NOTE This is a 60-year-old female who slowly is improving from a medical standpoint, feels better with GI diarrhea. Stool culture is pending. Hemoglobin is 10.4, white count is normal. Potassium 3.3. Sodium is 140. Cardiovascular S1-S2. Lungs clear. GI is increased bowel sounds. BUN 16, creatinine 1.51. Sugars in the mid 100. ASSESSMENT: 1. Gastroenteritis. 2. Dehydration. 3. Acute prerenal and renal insufficiency. 4. History of seizures. 5. Possible pneumonia. 6. Shortness of breath. Continue with breathing treatments. Supplemental oxygen. Antibiotics and rehydration. Intravascular volume depletion, dehydration, improving, possibly CT scan in the future per Pulmonology. Continue rehydration. Wait for renal physician's recommendation. MMODL / IJN: [id number] /
[2020-04-25 08:09] LABS: Anisocytosis Slight; Basophils % (A) 0 %; Eosinophils # (A) 0.8 k/uL (0-0.7); Eosinophils % (A) 12 %; HGB 9.9 gm/dL (11.4-16.0); Hypochromasia Slight; Lymphocytes # (A) 3.5 k/uL (1.0-4.8); Lymphocytes % (A) 50 %; MCHC 30.8 g/dL (31.0-37.0); Mean Platelet Volume 9.9; Monocytes # (A) 0.5 k/uL (0-1.0); Monocytes % (A) 7 %; Neutrophils # (A) 2.1 k/uL (1.3-7.7); Neutrophils % (A) 30 %; RDW 16.4 % (11.5-15.5)
[2020-04-25 08:14] LABS: Albumin 2.7 g/dL (3.5-5.0); Calcium 8.5 mg/dL (8.4-10.2); Potassium 3.9 mmol/L (3.5-5.1); Total Bilirubin 0.3 mg/dL (0.2-1.3); Total Protein 5.6 g/dL (6.3-8.2)
[2020-04-25 08:20] LABS: Platelet Count 73 k/uL (150-450)
[2020-04-25] MEDS: allopurinoL 100 MG TAB PO SCH (09:31)
[2020-04-25] MEDS: SERTRALINE 100 MG TAB PO SCH (09:31)
[2020-04-25] MEDS: SERTRALINE 25 MG TAB PO SCH (09:31)
[2020-04-25] MEDS: DIVALPROEX 250 MG TABLET.DR PO SCH ×2 (09:32→20:15)
[2020-04-25] MEDS: METOPROLOL TARTRATE 25 MG TAB PO SCH ×2 (09:32→20:15)
[2020-04-25] MEDS: ASPIRIN 81 MG PO SCH (09:32)
[2020-04-25] MEDS: COLCHICINE 0.6 MG EACH PO SCH (09:32)
--- NOTE | 2020-04-25 09:51 | P.PN ---
Subjective Progress Note Date: 04/25/20 Principal diagnosis: Sepsis associated with urinary tract infection Urinary tract infection Acute kidney injury Intravascular volume depletion and dehydration Developmental delay Prominent interstitial in the lung likely related to multifactorial process will do designated CAT scan once stable and renal function normalized 04/25/2020, patient seen eval examined during the rounds labs reviewed medications reviewed, remains afebrile with stable blood pressure oxygen satur ation 100%, a stool culture is pending however urine culture came back positive for gram-negative rods, patient remains on gentle rehydration along with IV Rocephin 60-year-old female who was seen eval reexamined, patient has been admitted to hospital with diarrhea and generalized weakness, patient has problems associated with developmental delay not much data can be obtained from the patient most of the data has been obtained from the chart, chest x-ray noted to have prominent interstitium with a differential diagnoses of pulmonary fibrosis versus interstitial pneumonia patient room air oxygen saturation 97% she is afebrile him a bit overweight 19 is negative, urine suggestive of UTI however, with a positive nitrite and large leukocyte esterase trace, on arrival her BUN/creatinine is a 80 over 2.2 improved to 60 over 1.5 today, she is being treated with a heart spectrum antibiotics IV, urine culture results are pending, she had a computed tomography scan of the abdominal and pelvis the lower section of the lung which are visible and scan suggestive of mild interstitial prominence infiltrate along with atelectasis Objective - Vital Signs Vital signs: Vital Signs Temp 98.0 F 04/25/20 08:00 Pulse 81 04/25/20 08:00 Resp 18 04/25/20 08:00 BP 96/60 04/25/20 08:00 Pulse Ox 100 04/25/20 08:00 Intake & Output 04/24/20 04/25/20 04/25/20 18:59 06:59 18:59 Intake Total 960 1340 Balance 960 1340 Weight 51.5 kg 53 kg Intake: Intake, IV Titration 1040 Amount Sodium Chloride 0.9% 1, 1040 000 ml @ 130 mls/hr IV . Q7H42M [facility] Rx#:[id number] Oral 960 300 Other: Voiding Method Bedpan # Voids 1 1 # Bowel Movements 3 - Exam - Constitutional General appearance: cooperative, disheveled - EENT Eyes: PERRLA Ears: bilateral: normal - Neck Carotids: bilateral: upstroke normal Thyroid: bilateral: normal size - Respiratory Respiratory: bilateral: diminished - Cardiovascular Rhythm: regular Heart sounds: normal: S1, S2 - Gastrointestinal General gastrointestinal: decreased bowel sounds - Musculoskeletal Musculoskeletal: strength equal bilaterally - Psychiatric Psychiatric: appropriate affect - Labs CBC & Chem 7: 04/25/20 07:28 04/25/20 07:34 Labs: Abnormal Lab Results - Last 24 Hours (Table) 04/24/20 04/24/20 04/24/20 Range/Units 08:32 08:32 20:15 Hgb 10.4 L (11.4-16.0) gm/dL Hct 32.4 L (34.0-46.0) % MCV 76.7 L (80.0-100.0) fL MCH 24.6 L (25.0-35.0) pg MCHC (31.0-37.0) g/dL RDW 16.0 H (11.5-15.5) % Plt Count 71 L (150-450) k/uL Eosinophils # (0-0.7) k/uL Potassium 3.3 L (3.5-5.1) mmol/L Chloride 112 H (98-107) mmol/L Carbon Dioxide 21 L (22-30) mmol/L BUN 60 H (7-17) mg/dL Creatinine 1.51 H (0.52-1.04) mg/dL POC Glucose (mg/dL) 138 H (75-99) mg/dL AST (14-36) U/L Total Protein (6.3-8.2) g/dL Albumin (3.5-5.0) g/dL 04/25/20 04/25/20 04/25/20 Range/Units 05:58 07:28 07:34 Hgb 9.9 L (11.4-16.0) gm/dL Hct 32.0 L (34.0-46.0) % MCV 78.0 L (80.0-100.0) fL MCH 24.0 L (25.0-35.0) pg MCHC 30.8 L (31.0-37.0) g/dL RDW 16.4 H (11.5-15.5) % Plt Count 73 L (150-450) k/uL Eosinophils # 0.8 H (0-0.7) k/uL Potassium (3.5-5.1) mmol/L Chloride 120 H (98-107) mmol/L Carbon Dioxide 19 L (22-30) mmol/L BUN 37 H (7-17) mg/dL Creatinine 1.19 H (0.52-1.04) mg/dL POC Glucose (mg/dL) 105 H (75-99) mg/dL AST 61 H (14-36) U/L Total Protein 5.6 L (6.3-8.2) g/dL Albumin 2.7 L (3.5-5.0) g/dL Microbiology - Last 24 Hours (Table) 04/24/20 15:20 Stool Culture - Preliminary Stool 04/23/20 17:51 Urine Culture - Preliminary Urine,Catheterized Gram Neg Bacilli Assessment and Plan Assessment: Sepsis associated with urinary tract infection Urinary tract infection Acute kidney injury Intravascular volume depletion and dehydration Developmental delay Prominent interstitial in the lung likely related to multifactorial process will do designated CAT scan once stable and renal function normalized Plan: Continue deep breathing sense incentive spirometry Supplemental oxygen as needed Continue antibiotics and gentle rehydration, follow up on urine culture results and reports Further recommendations pending plan of care as per clinical response of the patient Time with Patient: Greater than 30
[2020-04-25 11:41] LABS: Glucose,Whole Blood 107 mg/dL (75-99)
--- NOTE | 2020-04-25 14:00 | P.CONS ---
History of Present Illness - Reason for Consult Consult date: 04/24/20 UTI AND gastroenteritis Requesting physician: Mohit Harley - Chief Complaint weakness , diarrhea and poor appetite x days - History of Present Illness Patient is a 60-year-old -[place] female presenting to [facility] ER yesterday for evaluation of diarrhea weakness decreased appetite and decreased oral intake patient complaining of some mild abdominal discomfort but the patient herself was unable to quantify the pain any further on arrival to the ER the patient has been afebrile patient did have a normal white count with no lymphopenia she did have elevated BUN and creatinine patient did have a positive UA with large leukocyte esterase 11 WBC patient urine is showing gram- negative stool cultures are pending patient to be treated with Rocephin 1 g daily infectious disease was consulted for further management of antibiotic therapy Review of Systems Positive points mentioned in history of present illness complete review could not be obtained because of his underlying medical condition Past Medical History Past Medical History: CVA/TIA Additional Past Medical History / Comment(s): ANEMIA, 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 gout, PANCREATITIS, pseudoseizures. UTI, gallstones, LIPS AND ONE HAND SHAKES SOMETIMES. History of Any Multi-Drug Resistant Organisms: ESBL Year Discovered:: 03/18/18 ESBL E.coli MDRO Source:: Urine Past Surgical History: Section, Orthopedic Surgery Additional Past Surgical History / Comment(s): COILS AND STENTS TO BRAIN, repair tendons r/t gout BILATERAL FEET. Past Anesthesia/Blood Transfusion Reactions: No Reported Reaction Additional Past Anesthesia/Blood Transfusion Reaction / Comm: PT HAS HAD BLOOD TRANSFUSIONS FOR ANEMIA-NO REACTION. Past Psychological History: Depression, Schizophrenia Smoking Status: Former smoker Past Alcohol Use History: None Reported Past Drug Use History: Cocaine - Past Family History Sister(s) Family Medical History: Myocardial Infarction ([place]) Father Family Medical History: Cancer Additional Family Medical History / Comment(s): throat, lung, and rectal cancer Mother Family Medical History: Myocardial Infarction ([place]) Additional Family Medical History / Comment(s): stroke Medications and Allergies Home Medications Medication Instructions Recorded Confirmed Type Aspirin EC [Ecotrin Low Dose] 81 mg PO DAILY 04/12/16 04/23/20 History Furosemide [Lasix] 40 mg PO DAILY 01/04/17 04/23/20 History Metoprolol Tartrate 100 mg PO BID 01/04/17 04/23/20 History Sertraline [Zoloft] 100 mg PO DAILY 01/04/17 04/23/20 History Colchicine [Colcrys] 0.6 mg PO DAILY 02/09/20 04/23/20 History Omeprazole [PriLOSEC] 20 mg PO DAILY 02/09/20 04/23/20 History allopurinoL [Zyloprim] 100 mg PO DAILY 02/09/20 04/23/20 History Atorvastatin [Lipitor] 20 mg PO HS #30 tab 02/13/20 04/23/20 Rx ARIPiprazole [Abilify] 15 mg PO HS 04/23/20 04/23/20 History Divalproex Sodium [Depakote] 500 mg PO HS 04/23/20 04/23/20 History Divalproex [Depakote] 1,000 mg PO DAILY 04/23/20 04/23/20 History Divalproex [Depakote] 250 mg PO HS 04/23/20 04/23/20 History Sertraline [Zoloft] 25 mg PO DAILY 04/23/20 04/23/20 History Allergies Allergy/AdvReac Type Severity Reaction Status Date / Time No Known Allergies Allergy Verified 04/23/20 17:11 Physical Exam Vitals: Vital Signs Temp Pulse Resp BP Pulse Ox 04/25/20 08:00 98.0 F 81 18 96/60 100 04/25/20 04:00 98.1 F 80 16 100/67 99 04/24/20 23:59 98.4 F 82 18 106/61 100 04/24/20 23:56 81 18 04/24/20 20:00 81 18 04/24/20 19:50 98.4 F 81 18 90/56 98 04/24/20 16:00 97.9 F 79 16 99/54 99 Intake and Output 04/24/20 04/25/20 04/25/20 22:59 06:59 14:59 Intake Total 240 1340 Balance 240 1340 Intake: Intake, IV Titration 1040 Amount Sodium Chloride 0.9% 1, 1040 000 ml @ 130 mls/hr IV . Q7H42M [facility] Rx#:[id number] Oral 240 300 Other: Voiding Method Bedpan Bedpan # Voids 1 1 # Bowel Movements 1 3 Weight 53 kg GENERAL DESCRIPTION: Middle-aged female lying in bed, no distress. No tachypnea or accessory muscle of respiration use. HEENT: Shows Pallor , no scleral icterus. Oral mucous membrane is dry. No pharyngeal erythema or thrush NECK: Trachea central, no thyromegaly. LUNGS: Unlabored breathing. Clear to auscultation anteriorly. No wheeze or crackle. HEART: S1, S2, regular rate and rhythm. No loud murmur ABDOMEN: Soft, no tenderness , guarding or rigidity, no organomegaly EXTREMITIES: No edema of feet. SKIN: No rash, no masses palpable. NEUROLOGICAL: The patient is awake, alert, in no distress Results CBC & Chem 7: 04/25/20 07:28 04/25/20 07:34 Labs: Abnormal Lab Results - Last 24 Hours (Table) 04/24/20 04/25/20 04/25/20 Range/Units 20:15 05:58 07:28 Hgb 9.9 L (11.4-16.0) gm/dL Hct 32.0 L (34.0-46.0) % MCV 78.0 L (80.0-100.0) fL MCH 24.0 L (25.0-35.0) pg MCHC 30.8 L (31.0-37.0) g/dL RDW 16.4 H (11.5-15.5) % Plt Count 73 L (150-450) k/uL Eosinophils # 0.8 H (0-0.7) k/uL Chloride (98-107) mmol/L Carbon Dioxide (22-30) mmol/L BUN (7-17) mg/dL Creatinine (0.52-1.04) mg/dL POC Glucose (mg/dL) 138 H 105 H (75-99) mg/dL AST (14-36) U/L Total Protein (6.3-8.2) g/dL Albumin (3.5-5.0) g/dL 04/25/20 04/25/20 Range/Units 07:34 11:40 Hgb (11.4-16.0) gm/dL Hct (34.0-46.0) % MCV (80.0-100.0) fL MCH (25.0-35.0) pg MCHC (31.0-37.0) g/dL RDW (11.5-15.5) % Plt Count (150-450) k/uL Eosinophils # (0-0.7) k/uL Chloride 120 H (98-107) mmol/L Carbon Dioxide 19 L (22-30) mmol/L BUN 37 H (7-17) mg/dL Creatinine 1.19 H (0.52-1.04) mg/dL POC Glucose (mg/dL) 107 H (75-99) mg/dL AST 61 H (14-36) U/L Total Protein 5.6 L (6.3-8.2) g/dL Albumin 2.7 L (3.5-5.0) g/dL Microbiology - Last 24 Hours (Table) 04/24/20 15:20 Stool Culture - Preliminary Stool 04/23/20 17:51 Urine Culture - Preliminary Urine,Catheterized Gram Neg Bacilli Assessment and Plan Assessment: patient presented to hospital with generalized weakness low appetite and diarrhea no clear history of any recent antibiotic exposure she was also noticed to have positive UA with concern for gram-negative urinary tract infection and a component of gastroenteritis (1) Diarrhea Current Visit: Yes Status: Acute Code(s): R19.7 - DIARRHEA, UNSPECIFIED SNOMED Code(s): 88091510 (2) UTI (urinary tract infection) Current Visit: Yes Status: Acute Code(s): N39.0 - URINARY TRACT INFECTION, SITE NOT SPECIFIED SNOMED Code(s): 44321551 Plan: 1-await stool culture however check a stool for C. difficile to complete the w ork-up 2-Rocephin 1 g daily while waiting for the culture finalized 3-add Questran for symptomatic relief We will follow on clinical condition and cultures to further adjust medication if needed Thank you for this consultation will follow this patient along with you Time with Patient: Greater than 30
--- NOTE | 2020-04-25 15:39 | PN ---
PROGRESS NOTE Patient is seen for followup for acute kidney injury. Currently she is sitting up in bed, patient is comfortable. Physical therapy is here to work with her. PHYSICAL EXAMINATION: On examination, blood pressure 96/60, heart rate 81 per minute, patient is afebrile. Examination of the heart S1, S2. Examination of the lungs, bilateral breath sounds are heard. Abdomen is soft, nontender. Examination of lower extremities shows no significant edema. SCHOOL PROGRAM DIRECTOR exam grossly intact. LABS: Show sodium 144, potassium 3.9, chloride 120, CO2 is 19, BUN 37, creatinine 1.19, hemoglobin 9.9 g/dL. ASSESSMENT: 1. Acute kidney injury prerenal currently significantly improved with IV fluids. 2. Hypokalemia, improved. 3. History of gout. 4. Pyuria with urine culture growing Gram-negative bacilli. Currently maintained on antibiotics. PLAN: Continue with antibiotics. Encourage increased oral intake. Decrease IV fluids and continue to avoid nephrotoxic agents. MMODL / IJN: [id number] /
[2020-04-25] MEDS: CHOLESTYRAMINE (WITH SUGAR) 4 GM PACKET PO SCH (15:50)
[2020-04-25 17:04] LABS: Glucose,Whole Blood 86 mg/dL (75-99)
[2020-04-25] MEDS: ATORVASTATIN 20 MG TAB PO SCH (20:15)
[2020-04-25] MEDS: ARIPiprazole 15 MG TAB PO SCH (20:15)
[2020-04-25] MEDS ORDERED: DIVALPROEX 500 MG TABLET.DR PO SCH (21:00)
[2020-04-25 21:16] LABS: Glucose,Whole Blood 71 mg/dL (75-99)
[2020-04-25 22:54] LABS: Glucose,Whole Blood 85 mg/dL (75-99)
--- NOTE | 2020-04-26 01:01 | PN ---
PROGRESS NOTE BUN is 37, creatinine 1.19. Sodium 144, potassium 3.9, AST 61, ALT is 26, total protein 5.6, albumin 2.7 Temperature 98.4, pulse 70s to 60s, respiratory rate 16 to 18, blood pressure 104 to 125 over 70 to 76, O2 of 99% on room air. CARDIOVASCULAR: S1, S2. LUNGS: Clear. GI: Increased bowel sounds x4. HEMATOLOGY: Negative Homans. Physical therapy is helping her. She is sitting up comfortably after acute kidney injury secondary to hypokalemia, gout. Urine culture gram-negative bacilli. Maintain on antibiotics. Continue rehydration. Continue current treatments. Prognosis guarded. MMODL / IJN: [id number] /
--- NOTE | 2020-04-26 01:31 | PN ---
PROGRESS NOTE DATE OF SERVICE: 04/25/2020 REASON FOR FOLLOWUP: 1. Urinary tract infection. 2. Diarrhea. INTERVAL HISTORY: The patient is currently afebrile. The patient is more awake and alert. She is breathing comfortably. Mainly complaining of diarrhea about 5 loose stools today. No chest pain or cough. No nausea, no vomiting. PHYSICAL EXAMINATION: Blood pressure is 125/76, pulse of 77, temperature 98.4. She is 99% on room air, General description is a middle-aged female lying in bed in no distress. RESPIRATORY SYSTEM: Unlabored breathing, clear to auscultation anteriorly. HEART: S1, S2. Regular rate and rhythm. ABDOMEN: Soft, no tenderness. LABS: BUN of 37, creatinine 1.19. Stool for C difficile is negative. Urine with E coli sensitive pathogen. DIAGNOSTIC IMPRESSION AND PLAN: 1. Patient with Escherichia coli urinary tract infection covered with Rocephin to continue. Finish therapy with oral antibiotic. 2. Patient with diarrhea. Stool for Clostridium difficile negative. Continue Questran for symptomatic relief. Monitor clinical course closely. MMCHETL / IJN: [id number] /
[2020-04-26 06:17] LABS: Glucose,Whole Blood 97 mg/dL (75-99)
[2020-04-26] MEDS: PANTOPRAZOLE 40 MG TABLET PO SCH (06:36)
[2020-04-26] MEDS ORDERED: DIVALPROEX 500 MG TABLET.DR PO SCH (09:00)
[2020-04-26] MEDS: CHOLESTYRAMINE (WITH SUGAR) 4 GM PACKET PO SCH (09:08)
[2020-04-26] MEDS: METOPROLOL TARTRATE 25 MG TAB PO SCH (09:09)
[2020-04-26] MEDS: ASPIRIN 81 MG PO SCH (09:09)
[2020-04-26] MEDS: SERTRALINE 100 MG TAB PO SCH (09:09)
[2020-04-26] MEDS: allopurinoL 100 MG TAB PO SCH (09:09)
[2020-04-26] MEDS: SERTRALINE 25 MG TAB PO SCH (09:09)
[2020-04-26] MEDS: COLCHICINE 0.6 MG EACH PO SCH (09:09)
[2020-04-26 10:17] VITALS: PULSE 76; RESP 16; TEMP 98.5
[2020-04-26 11:41] LABS: Glucose,Whole Blood 83 mg/dL (75-99)
[2020-04-26 11:56] VITALS: BP 136/79
[2020-04-26 12:42] LABS: Anisocytosis Slight; Basophils % (A) 0 %; Eosinophils # (A) 0.9 k/uL (0-0.7); Eosinophils % (A) 12 %; HCT 32.7 % (34.0-46.0); HGB 10.1 gm/dL (11.4-16.0); Hypochromasia Slight; Lymphocytes # (A) 3.7 k/uL (1.0-4.8); Lymphocytes % (A) 47 %; MCHC 30.9 g/dL (31.0-37.0); MCV 77.7 fL (80.0-100.0); Mean Platelet Volume 8.5; Microcytosis Slight; Monocytes # (A) 0.4 k/uL (0-1.0); Monocytes % (A) 6 %; Neutrophils # (A) 2.7 k/uL (1.3-7.7); Neutrophils % (A) 34 %; Poikilocytosis Slight; RBC 4.21 m/uL (3.80-5.40); WBC 7.9 k/uL (3.8-10.6)
[2020-04-26 12:47] LABS: Platelet Count 68 k/uL (150-450)
[2020-04-26 12:50] LABS: Albumin 2.8 g/dL (3.5-5.0); Calcium 8.6 mg/dL (8.4-10.2); Potassium 3.5 mmol/L (3.5-5.1); Total Bilirubin 0.3 mg/dL (0.2-1.3); Total Protein 5.8 g/dL (6.3-8.2)
[2020-04-26] MEDS ORDERED: Potassium Replacement Protocol 1 EACH MISC MISCELLANE PRN (13:39)
--- NOTE | 2020-04-26 13:45 | P.PN ---
Subjective Progress Note Date: 04/26/20 Principal diagnosis: Sepsis associated with urinary tract infection Urinary tract infection Acute kidney injury Intravascular volume depletion and dehydration Developmental delay Prominent interstitial in the lung likely related to multifactorial process will do designated CAT scan once stable and renal function normalized 04/26/2020, patient seen eval examined during the rounds labs reviewed medications reviewed in shortness of breath cough congestion improved significa ntly denies any chest pain, urine culture results came back positive for E. coli which is resistant to ampicillin urine is sent and cefazolin and tetracycline sensitive to rest including ceftriaxone 04/25/2020, patient seen eval examined during the rounds labs reviewed medications reviewed, remains afebrile with stable blood pressure oxygen saturation 100%, a stool culture is pending however urine culture came back positive for gram-negative rods, patient remains on gentle rehydration along wit h IV Rocephin 60-year-old female who was seen eval reexamined, patient has been admitted to hospital with diarrhea and generalized weakness, patient has problems associated with developmental delay not much data can be obtained from the patient most of the data has been obtained from the chart, chest x-ray noted to have prominent interstitium with a differential diagnoses of pulmonary fibrosis versus interstitial pneumonia patient room air oxygen saturation 97% she is afebrile him a bit overweight 19 is negative, urine suggestive of UTI however, with a positive nitrite and large leukocyte esterase trace, on arrival her BUN/creatinine is a 80 over 2.2 improved to 60 over 1.5 today, she is being treated with a heart spectrum antibiotics IV, urine culture results are pending, she had a computed tomography scan of the abdominal and pelvis the lower section of the lung which are visible and scan suggestive of mild interstitial prominence infiltrate along with atelectasis Objective - Vital Signs Vital signs: Vital Signs Temp 98.5 F 04/26/20 09:00 Pulse 76 04/26/20 11:56 Resp 16 04/26/20 11:56 BP 136/79 04/26/20 11:50 Pulse Ox 100 04/26/20 11:50 Intake & Output 04/25/20 04/26/20 04/26/20 18:59 06:59 18:59 Intake Total 120 400 Balance 120 400 Weight 54 kg Intake: Intake, IV Titration 400 Amount Sodium Chloride 0.9% 1, 400 000 ml @ 50 mls/hr IV . Q20H [facility] Rx#:[id number] Oral 120 Other: Voiding Method Bedpan Bedpan # Voids 1 # Bowel Movements 1 3 - Exam - Constitutional General appearance: cooperative, disheveled - EENT Eyes: PERRLA Ears: bilateral: normal - Neck Carotids: bilateral: upstroke normal Thyroid: bilateral: normal size - Respiratory Respiratory: bilateral: diminished - Cardiovascular Rhythm: regular Heart sounds: normal: S1, S2 - Gastrointestinal General gastrointestinal: decreased bowel sounds - Musculoskeletal Musculoskeletal: strength equal bilaterally - Psychiatric Psychiatric: appropriate affect - Labs CBC & Chem 7: 04/26/20 12:10 04/26/20 12:10 Labs: Abnormal Lab Results - Last 24 Hours (Table) 04/25/20 04/26/20 04/26/20 Range/Units 21:01 12:10 12:10 Hgb 10.1 L (11.4-16.0) gm/dL Hct 32.7 L (34.0-46.0) % MCV 77.7 L (80.0-100.0) fL MCH 24.0 L (25.0-35.0) pg MCHC 30.9 L (31.0-37.0) g/dL RDW 17.0 H (11.5-15.5) % Plt Count 68 L (150-450) k/uL Eosinophils # 0.9 H (0-0.7) k/uL Chloride 117 H (98-107) mmol/L Carbon Dioxide 19 L (22-30) mmol/L BUN 19 H (7-17) mg/dL POC Glucose (mg/dL) 71 L (75-99) mg/dL AST 55 H (14-36) U/L Total Protein 5.8 L (6.3-8.2) g/dL Albumin 2.8 L (3.5-5.0) g/dL Microbiology - Last 24 Hours (Table) 04/23/20 17:51 Urine Culture - Final Urine,Catheterized Escherichia coli Assessment and Plan Assessment: Sepsis associated with E. coli urinary tract infection Urinary tract infection Acute kidney injury Intravascular volume depletion and dehydration Developmental delay Prominent interstitial in the lung likely related to multifactorial process will do designated CAT scan once stable and renal function normalized Plan: Continue deep breathing sense incentive spirometry Supplemental oxygen as needed Continue antibiotics and gentle rehydration, Further recommendations pending plan of care as per clinical response of the patient Time with Patient: Greater than 30
[2020-04-26] MEDS: POTASSIUM CHLORIDE ER 20 MEQ TAB.ER PO SCH ×2 (13:56→15:40)
--- NOTE | 2020-04-26 17:09 | PN ---
PROGRESS NOTE Patient is seen for followup for acute kidney injury. Her renal function has significantly improved. Patient is maintained on IV fluids; creatinine down to 0.9 from 2.27 on initial admission. This morning patient is sitting out of bed. Physical Therapy is working with her. She is awake, comfortable, not in any acute distress. Blood pressure is 136/79, heart rate 76 per minute. She is afebrile. EXAMINATION OF THE HEART: S1 and S2. EXAMINATION OF LUNGS: Bilateral breath sounds are heard. ABDOMEN: Soft, non-tender. Examination of lower extremities shows no significant edema. MONITORING COORDINATOR exam is grossly intact. LABS: Labs show sodium 141, potassium 3.5, chloride 117. CO2 is 19, BUN 19, creatinine 0.96, hemoglobin 10.1 g/dL. ASSESSMENT: 1. Acute kidney injury, prerenal, currently improved. 2. Generalized debility, slowly improving. 3. Urinary tract infection, maintained on antibiotics. Urine culture grew E coli. 4. Hypokalemia, now improved. PLAN: Continue to encourage oral intake. Discontinue IV fluids tomorrow. MMODL / IJN: [id number] /
--- NOTE | 2020-04-26 19:48 | PN ---
PROGRESS NOTE DATE OF SERVICE: 04/26/2020 REASON FOR FOLLOWUP: E coli urinary tract infection. INTERVAL HISTORY: The patient was seen on rounds this morning. The patient overall is feeling better, breathing comfortably. The patient denies having any chest pain or shortness of breath or cough. No nausea, vomiting or abdominal pain. The patient's diarrhea has resolved. PHYSICAL EXAMINATION: Her blood pressure is 136/76, pulse of 76, temperature 98.5. She is 100% on room air. General description is a middle-aged female up in the bed in no distress. RESPIRATORY SYSTEM: Unlabored breathing. Clear to auscultation anteriorly. HEART: S1, S2. Regular rate and rhythm. ABDOMEN: Soft. No tenderness. LABS: White count 7.9, creatinine 0.96. Urine with E coli. DIAGNOSTIC IMPRESSION AND PLAN: 1. Patient with an Escherichia coli urinary tract infection, possible cystitis, adequately treated. 2. Patient with diarrhea. Did respond to Questran. Use as needed on discharge. MMODL / IJN: [id number] /
--- NOTE | 2020-04-28 13:22 | CDI ---
Documentation Clarification Form Date: 04/28/20 From: Theresa Cedillo Phone: If you have a question about this query, please contact Marisol Bullock, Stringing Machine Operator at [phone] between 8am and 5pm. Admit Date: 04/23/20 Discharge Date: 04/26/20 Patient Name: MATTHEW STEVEN Visit Number: [id number] ATTENTION: The Clinical Documentation Specialists (CDI) and [facility] Coding Staff appreciate your assistance in clarifying documentation. Please respond to the clarification below the line at the bottom and electronically sign. The CDI & [facility] Coding staff will review the response and follow-up if needed. Please note: Queries are made part of the Legal Health Record. If you have any questions, please contact the author of this message via ITS. Dear Dr. Mohit Harley, Conflicting documentation has been found in the medical record: Dr Callahan states patient has sepsis associated with UTI. Per your H&P, prerenal acute kidney injury, acute tubular necrosis, dehydration, possible ESBL in the urine. History/Risk Factors: hx of UTI, ATN, monoplegia of left upper arm, dehydration, gastroenteritis Clinical Indicators: WB-5.9, Neutrophils-38, Cr-2.27, lactic acid-0.6, urine culture-E coli Vital Signs: T-98.4, R-16, BP-95/51 Treatment: IV fluids, IV Rocephin, IV Xithromax, no antibiotics on discharge In your opinion, what is the most clinically appropriate diagnosis for this patient? Sepsis due to E coli UTI No sepsis Other explanation of clinical findings Unable to determine (no explanation for clinical findings) MTDD
--- NOTE | 2020-05-07 11:36 | CDI ---
Documentation Clarification Form Date: 05/07/20 From: Theresa Cedillo Phone: If you have a question about this query, please contact Marisol Bullock, Economic Analysis Director at [phone] between 8am and 5pm. Admit Date: 04/23/20 Discharge Date: 04/26/20 Patient Name: MATTHEW STEVEN Visit Number: [id number] ATTENTION: The Clinical Documentation Specialists (CDI) and [facility] Coding Staff appreciate your assistance in clarifying documentation. Please respond to the clarification below the line at the bottom and electronically sign. The CDI & [facility] Coding staff will review the response and follow-up if needed. Please note: Queries are made part of the Legal Health Record. If you have any questions, please contact the author of this message via ITS. Dear Dr. Mohit Harley, Conflicting documentation has been found in the medical record: Dr Callahan states patient has sepsis associated with UTI. Per your H&P, prerenal acute kidney injury, acute tubular necrosis, dehydration, possible ESBL in the urine. History/Risk Factors: hx of UTI, ATN, monoplegia of left upper arm, dehydration, gastroenteritis Clinical Indicators: WB-5.9, Neutrophils-38, Cr-2.27, lactic acid-0.6, urine culture-E coli Vital Signs: T-98.4, R-16, BP-95/51 Treatment: IV fluids, IV Rocephin, IV Xithromax, no antibiotics on discharge In your opinion, what is the most clinically appropriate diagnosis for this patient? Sepsis due to E coli UTI No sepsis Other explanation of clinical findings Unable to determine (no explanation for clinical findings) MTDD
--- NOTE | 2020-05-07 14:01 | PN ---
PROGRESS NOTE Sepsis due to EE coli UTI. MMODL / IJN: [id number] /
== END 2020-04-26 16:16 | disposition home health service (06) | DRG 871 ==
LOC: EC 15:13 → EEVIPCON 15:13 → 3SCARD 18:09
PROVIDERS: ADMIT Family Medicine; ATTEND Family Medicine
DX: A41.9 Sepsis, unspecified organism (principal); N17.0 Acute kidney failure with tubular necrosis; N39.0 Urinary tract infection, site not specified; F44.5 Conversion disorder with seizures or convulsions; I95.9 Hypotension, unspecified; F20.9 Schizophrenia, unspecified; I69.334 Monoplegia of upper limb following cerebral infarction affecting left non-dominant side; F14.11 Cocaine abuse, in remission; Z20.828 Contact with and (suspected) exposure to other viral communicable diseases; R40.2142 Coma scale, eyes open, spontaneous, at arrival to emergency department; R40.2362 Coma scale, best motor response, obeys commands, at arrival to emergency department; R40.2252 Coma scale, best verbal response, oriented, at arrival to emergency department; E86.0 Dehydration; E87.6 Hypokalemia; M40.50 Lordosis, unspecified, site unspecified; M10.9 Gout, unspecified; D64.9 Anemia, unspecified; K52.9 Noninfective gastroenteritis and colitis, unspecified; F32.9 Major depressive disorder, single episode, unspecified; K80.20 Calculus of gallbladder without cholecystitis without obstruction; F89 Unspecified disorder of psychological development; Z79.82 Long term (current) use of aspirin; Z79.899 Other long term (current) drug therapy; Z87.891 Personal history of nicotine dependence; Z87.19 Personal history of other diseases of the digestive system; Z87.440 Personal history of urinary (tract) infections; Z98.891 History of uterine scar from previous surgery; Z95.828 Presence of other vascular implants and grafts; Z87.39 Personal history of other diseases of the musculoskeletal system and connective tissue; Z98.890 Other specified postprocedural states; Z82.49 Family history of ischemic heart disease and other diseases of the circulatory system; Z80.8 Family history of malignant neoplasm of other organs or systems; Z80.0 Family history of malignant neoplasm of digestive organs; Z82.3 Family history of stroke; Z80.1 Family history of malignant neoplasm of trachea, bronchus and lung; Z71.3 Dietary counseling and surveillance
CPT/HCPCS: 36415; 71046; 74018; 74176; 80048; 80053; 80164; 81001; 83605; 83735; 84484; 85025; 87045; 87046; 87077; 87086; 87186; 87324; 93005; 96361; 96365; 96367; 99285

== ENCOUNTER → 2020-09-27 | Outpatient (CLI) | payer OTHER ==
[2020-09-28 01:32] LABS: Basophils # (A) 0.02 X 10*3/uL (0.00-0.10); Basophils % (A) 0.3 %; Eosinophils % (A) 6.5 %; HCT 33.6 % (37.2-46.3); HGB 10.8 g/dL (12.0-15.0); Lymphocytes % (A) 59.9 %; MCH 26.3 pg (27.0-32.0); MCHC 32.1 g/dL (32.0-37.0); MCV 81.8 fL (80.0-97.0); Monocytes # (A) 0.74 X 10*3/uL (0.20-1.00); Monocytes % (A) 9.6 %; Neutrophils # (A) 1.79 X 10*3/uL (1.80-7.70); Neutrophils % (A) 23.3 %; Platelet Count 108 X 10*3/uL (140-440); RBC 4.11 X 10*6/uL (4.10-5.20); RDW 18.7 % (11.5-14.5); WBC 7.68 X 10*3/uL (4.50-10.00)
[2020-09-28 01:33] LABS: Anisocytosis (M) 2+; Target Cells 2+
[2020-09-28 03:58] LABS: Valproic Acid (Depakene) 109.4 ug/mL (50.0-100.0)
== END | disposition home or self-care (01) ==
LOC: LABWHC1 15:53
PROVIDERS: ATTEND Psychiatry & Neurology Neurology
DX: G40.209 Localization-related (focal) (partial) symptomatic epilepsy and epileptic syndromes with complex partial seizures, not intractable, without status epilepticus (principal)
CPT/HCPCS: 36415; 80164; 84460; 85025

== ENCOUNTER → 2020-10-30 | Outpatient (CLI) | payer OTHER ==
[2020-10-30 19:40] LABS: Basophils # (A) 0.01 X 10*3/uL (0.00-0.10); Basophils % (A) 0.2 %; Eosinophils % (A) 4.7 %; HCT 31.5 % (37.2-46.3); HGB 10.5 g/dL (12.0-15.0); Lymphocytes % (A) 63.3 %; MCH 26.4 pg (27.0-32.0); MCHC 33.3 g/dL (32.0-37.0); MCV 79.3 fL (80.0-97.0); Monocytes # (A) 0.62 X 10*3/uL (0.20-1.00); Monocytes % (A) 9.8 %; Neutrophils # (A) 1.36 X 10*3/uL (1.80-7.70); Neutrophils % (A) 21.5 %; Platelet Count 57 X 10*3/uL (140-440); RBC 3.97 X 10*6/uL (4.10-5.20); RDW 17.7 % (11.5-14.5); Target Cells 2+; WBC 6.32 X 10*3/uL (4.50-10.00)
[2020-10-30 22:18] LABS: Hemoglobin A1C 6.1 % (4.0-6.0)
[2020-10-31 03:46] LABS: African American GFR (CKD) 18.5 (60.0-200.0); Albumin 3.9 g/dL (3.80-4.90); Albumin/Globulin Ratio 1.34 (1.60-3.17); Anion Gap 12.4 mmol/L (4.00-12.00); BUN/Creat Ratio 32.67 Ratio (12.00-20.00); Calcium 9.8 mg/dL (8.7-10.3); Carbon Dioxide 22.6 mmol/L (21.6-31.8); Globulin 2.9 g/dL (1.6-3.3); Potassium 5.4 mmol/L (3.5-5.5); Total Bilirubin 0.2 mg/dL (0.2-1.2); Total Protein 6.8 g/dL (6.2-8.2)
[2020-10-31 05:04] LABS: Valproic Acid (Depakene) 100.3 ug/mL (50.0-100.0)
== END | disposition home or self-care (01) ==
LOC: LABWHC1 11:45
PROVIDERS: ATTEND Psychiatry & Neurology Neurology
DX: E55.9 Vitamin D deficiency, unspecified (principal); I10 Essential (primary) hypertension; G40.909 Epilepsy, unspecified, not intractable, without status epilepticus; Z79.899 Other long term (current) drug therapy
CPT/HCPCS: 36415; 80053; 80164; 82607; 83036; 84443; 84550; 85025

== ENCOUNTER → 2020-11-22 | Outpatient (CLI) | payer OTHER ==
[2020-11-22 23:39] LABS: Basophils # (A) 0.01 X 10*3/uL (0.00-0.10); Basophils % (A) 0.2 %; Eosinophils # (A) 0.25 X 10*3/uL (0.04-0.35); Eosinophils % (A) 4.4 %; HCT 32.1 % (37.2-46.3); HGB 10.3 g/dL (12.0-15.0); Lymphocytes # (A) 3.54 X 10*3/uL (0.90-5.00); Lymphocytes % (A) 62.4 %; MCH 26.1 pg (27.0-32.0); MCHC 32.1 g/dL (32.0-37.0); MCV 81.5 fL (80.0-97.0); Monocytes # (A) 0.54 X 10*3/uL (0.20-1.00); Monocytes % (A) 9.5 %; Neutrophils # (A) 1.32 X 10*3/uL (1.80-7.70); Neutrophils % (A) 23.3 %; Platelet Count 103 X 10*3/uL (140-440); RBC 3.94 X 10*6/uL (4.10-5.20); RDW 19.7 % (11.5-14.5); WBC 5.67 X 10*3/uL (4.50-10.00)
== END | disposition home or self-care (01) ==
LOC: EEVIPCON 15:03 → LABWHC1 15:03
PROVIDERS: ATTEND Psychiatry & Neurology Neurology
DX: G40.209 Localization-related (focal) (partial) symptomatic epilepsy and epileptic syndromes with complex partial seizures, not intractable, without status epilepticus (principal); R26.9 Unspecified abnormalities of gait and mobility; Z86.73 Personal history of transient ischemic attack (TIA), and cerebral infarction without residual deficits
CPT/HCPCS: 36415; 80164; 85025

== ENCOUNTER 2020-12-06 07:58 | Day surgery (SDC) | payer OTHER ==
[2020-12-05 10:01] VITALS: BMI 20.7
[2020-12-06 08:28] VITALS: TEMP 97.8
[2020-12-06] MEDS ORDERED: LACTATED RINGERS 1,000 ML IV ONE (08:30)
[2020-12-06] MEDS ORDERED: MIDAZOLAM 2 MG/2 ML VIAL IVP ONE (09:11)
[2020-12-06] MEDS ORDERED: LIDOCAINE 1% INJ 10MG/ML (20 ML MDV) ONE (09:16)
[2020-12-06] MEDS ORDERED: PROPOFOL 10 MG/ML 20 ML VIAL IV ONE (09:16)
--- NOTE | 2020-12-06 09:28 | P.GSHP ---
History of Present Illness H&P Date: 12/06/20 Chief Complaint: History of peptic ulcer disease This a 60-year-old female presents today for EGD. She has completed epigastric pain. She has a history of peptic ulcer disease Past Medical History Past Medical History: CVA/TIA, Hyperlipidemia, Hypertension Additional Past Medical History / Comment(s): ANEMIA, 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 gout, P ANCREATITIS, pseudoseizures. 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 Past Anesthesia/Blood Transfusion Reactions: No Reported Reaction Additional Past Anesthesia/Blood Transfusion Reaction / Comment(s): PT HAS HAD BLOOD TRANSFUSIONS FOR ANEMIA-NO REACTION. Smoking Status: Former smoker - Past Family History Sister(s) Family Medical History: Myocardial Infarction ([place]) Father Family Medical History: Cancer Additional Family Medical History / Comment(s): throat, lung, and rectal cancer Mother Family Medical History: Myocardial Infarction ([place]) Additional Family Medical History / Comment(s): stroke Medications and Allergies Home Medications Medication Instructions Recorded Confirmed Type Aspirin EC [Ecotrin Low Dose] 81 mg PO DAILY 04/12/16 12/06/20 History Furosemide [Lasix] 40 mg PO DAILY 01/04/17 12/06/20 History Metoprolol Tartrate 100 mg PO BID 01/04/17 12/06/20 History Sertraline [Zoloft] 100 mg PO DAILY 01/04/17 12/06/20 History Omeprazole [PriLOSEC] 20 mg PO DAILY 02/09/20 12/06/20 History allopurinoL [Zyloprim] 100 mg PO DAILY 02/09/20 12/06/20 History Atorvastatin [Lipitor] 20 mg PO HS #30 tab 02/13/20 12/06/20 Rx ARIPiprazole [Abilify] 10 mg PO HS 04/23/20 12/06/20 History Divalproex Sodium [Depakote] 500 mg PO HS 04/23/20 12/06/20 History Divalproex [Depakote] 750 mg PO DAILY 04/23/20 12/06/20 History Sertraline [Zoloft] 25 mg PO DAILY 04/23/20 12/06/20 History Allergies Allergy/AdvReac Type Severity Reaction Status Date / Time No Known Allergies Allergy Verified 12/06/20 08:30 Surgical - Exam Vital Signs Temp Pulse Resp BP Pulse Ox 97.8 F 60 16 127/87 97 12/06/20 08:26 12/06/20 08:26 12/06/20 08:26 12/06/20 08:26 12/06/20 08:26 - General well developed, well nourished, no distress - Eyes PERRL - ENT normal pinna - Neck no masses - Respiratory normal expansion - Cardiovascular Rhythm: regular - Abdomen Abdomen: soft, non tender Assessment and Plan Assessment: History of epigastric pain. History of peptic ulcer disease. We'll perform EGD.
--- NOTE | 2020-12-06 09:31 | P.OP ---
Date of Procedure: 12/06/20 Preoperative Diagnosis: Peptic ulcer disease Postoperative Diagnosis: Antral gastritis Procedure(s) Performed: EGD Anesthesia: MAC Surgeon: Dyllan Herrera Pathology: other (Antrum) Condition: stable Disposition: PACU Description of Procedure: The patient's placed on the endoscopy table lateral position. She received IV sedation. The gastroscope was oropharynx past esophagus and then into the stomach. Scope was placed through the pylorus. The first and second portion duodenum appeared normal. Scope summer back the antrum was mildly inflamed. A biopsies performed. Scope was unretroflexed and remainder of the stomach appeared normal. There is no significant hiatal hernia. The GE junction was at 40 cm the distal esophagus appeared normal. The proximal esophagus was normal. Scope was withdrawn for patient.
[2020-12-06 10:07] VITALS: BP 108/66; PULSE 67; RESP 18
== END 2020-12-06 10:29 | disposition home or self-care (01) ==
LOC: ORWHC2ENDO 07:58
PROVIDERS: ATTEND Surgery
DX: K29.50 Unspecified chronic gastritis without bleeding (principal); I10 Essential (primary) hypertension; E78.5 Hyperlipidemia, unspecified; I69.954 Hemiplegia and hemiparesis following unspecified cerebrovascular disease affecting left non-dominant side; Z79.82 Long term (current) use of aspirin; Z79.899 Other long term (current) drug therapy; Z80.0 Family history of malignant neoplasm of digestive organs; Z80.1 Family history of malignant neoplasm of trachea, bronchus and lung; Z82.49 Family history of ischemic heart disease and other diseases of the circulatory system; Z87.891 Personal history of nicotine dependence; Z87.11 Personal history of peptic ulcer disease
CPT/HCPCS: 88305; 43239; J2250; J2001; J2704

== ENCOUNTER → 2021-02-05 | Outpatient (CLI) | payer OTHER ==
[2021-02-05 19:39] LABS: Basophils # (A) 0.02 X 10*3/uL (0.00-0.10); Basophils % (A) 0.4 %; Eosinophils # (A) 0.24 X 10*3/uL (0.04-0.35); Eosinophils % (A) 4.2 %; HCT 32.1 % (37.2-46.3); Lymphocytes # (A) 3.45 X 10*3/uL (0.90-5.00); Lymphocytes % (A) 60.5 %; MCH 26.3 pg (27.0-32.0); MCHC 31.2 g/dL (32.0-37.0); MCV 84.5 fL (80.0-97.0); Monocytes # (A) 0.58 X 10*3/uL (0.20-1.00); Monocytes % (A) 10.2 %; Neutrophils % (A) 24.5 %; Platelet Count 145 X 10*3/uL (140-440); RDW 17.2 % (11.5-14.5)
[2021-02-05 21:30] LABS: Hemoglobin A1C 5.1 % (4.0-6.0)
[2021-02-06 01:00] LABS: Valproic Acid (Depakene) 70.6 ug/mL (50.0-100.0)
[2021-02-06 01:02] LABS: African American GFR (CKD) 36.8 (60.0-200.0); Anion Gap 10.5 mmol/L (4.00-12.00); Carbon Dioxide 19.5 mmol/L (21.6-31.8); Non-African American GFR(CKD) 31.8 (60.0-200.0); Potassium 4.9 mmol/L (3.5-5.5); Uric Acid 6.3 mg/dL (2.9-7.7)
== END | disposition home or self-care (01) ==
LOC: LABWHC1 11:41
PROVIDERS: ATTEND Psychiatry & Neurology Neurology
DX: G40.209 Localization-related (focal) (partial) symptomatic epilepsy and epileptic syndromes with complex partial seizures, not intractable, without status epilepticus (principal)
CPT/HCPCS: 36415; 80051; 80164; 82565; 83036; 84443; 84450; 84460; 84520; 84550; 85025; 87077; 87086; 87186

== ENCOUNTER 2021-04-08 12:21 | Inpatient (IN) | payer OTHER ==
[2021-04-08] MEDS ORDERED: SODIUM CHLORIDE 0.9% 1,000 ML IV STA (14:06)
[2021-04-08] MEDS ORDERED: FAMOTIDINE 20 MG/2 ML VIAL IV STA (14:07)
--- NOTE | 2021-04-08 14:11 | ED ---
General Adult HPI - General Chief complaint: Weakness Stated complaint: abd pain Time Seen by Provider: 04/08/21 13:35 Source: patient, family (Son-in-law who is community relations representative), Caregiver Mode of arrival: wheelchair Limitations: no limitations - History of Present Illness Initial comments: Patient is a pleasant 60-year-old female presenting to emergency Department for decreased appetite, abdominal pain and general weakness. Patient has become progressively weak over the past several months. Patient is having difficulty transferring to use the restroom. Patient has significant decreased oral intake over the past 2 days. Patient has also been complaining of mid abdominal discomfort. History is somewhat limited. Son-in-law is present and helps pr ovide history. No vomiting. No fever. Patient does have history of previous significant stroke. - Related Data Home Medications Medication Instructions Recorded Confirmed Aspirin EC [Ecotrin Low Dose] 81 mg PO DAILY 04/12/16 04/08/21 Furosemide [Lasix] 40 mg PO DAILY 01/04/17 04/08/21 Metoprolol Tartrate 100 mg PO BID 01/04/17 04/08/21 Sertraline [Zoloft] 100 mg PO DAILY 01/04/17 04/08/21 Omeprazole [PriLOSEC] 20 mg PO DAILY 02/09/20 04/08/21 allopurinoL [Zyloprim] 100 mg PO DAILY 02/09/20 04/08/21 Divalproex Sodium [Depakote] 500 mg PO BID 04/23/20 04/08/21 Sertraline [Zoloft] 25 mg PO DAILY 04/23/20 04/08/21 ARIPiprazole [Abilify] 10 mg PO HS 04/08/21 04/08/21 Previous Rx's Medication Instructions Recorded Atorvastatin [Lipitor] 20 mg PO HS #30 tab 02/13/20 Allergies Allergy/AdvReac Type Severity Reaction Status Date / Time No Known Allergies Allergy Verified 04/08/21 14:55 Review of Systems ROS Statement: Those systems with pertinent positive or pertinent negative responses have been documented in the HPI. ROS Other: All systems not noted in ROS Statement are negative. Constitutional: Denies: fever Eyes: Denies: eye pain ENT: Denies: ear pain Respiratory: Denies: cough Cardiovascular: Denies: chest pain Endocrine: Reports: fatigue (Patient sleeping frequently) Gastrointestinal: Reports: as per HPI, abdominal pain Skin: Denies: rash Neurological: Reports: as per HPI Past Medical History Past Medical History: CVA/TIA, Hyperlipidemia, Hypertension Additional Past Medical History / Comment(s): ANEMIA, 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 gout, PANCREATITIS, pseudoseizures. 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 Past Anesthesia/Blood Transfusion Reactions: No Reported Reaction Additional Past Anesthesia/Blood Transfusion Reaction / Comment(s): PT HAS HAD BLOOD TRANSFUSIONS FOR ANEMIA-NO REACTION. Past Psychological History: Depression, Schizophrenia Smoking Status: Former smoker - Past Family History Sister(s) Family Medical History: Myocardial Infarction ([place]) Father Family Medical History: Cancer Additional Family Medical History / Comment(s): throat, lung, and rectal cancer Mother Family Medical History: Myocardial Infarction ([place]) Additional Family Medical History / Comment(s): stroke General Exam Limitations: no limitations General appearance: alert, in no apparent distress Head exam: Present: normocephalic Eye exam: Present: normal appearance, PERRL ENT exam: Present: normal oropharynx Neck exam: Present: normal inspection Respiratory exam: Present: normal lung sounds bilaterally Cardiovascular Exam: Present: regular rate, normal rhythm GI/Abdominal exam: Present: soft, tenderness (Mild epigastric tenderness) Extremities exam: Present: normal inspection, other (Left hand contracted) Neurological exam: Present: alert Expanded Motor strength exam: RUE: 5, LUE: 3, RLE: 3, LLE: 3 Psychiatric exam: Present: normal affect, normal mood Skin exam: Present: normal color Course Vital Signs 04/08/21 04/08/21 04/08/21 12:56 13:58 14:58 Temperature 98.3 F Pulse Rate 71 Respiratory 18 18 18 Rate Blood Pressure 108/83 O2 Sat by Pulse 99 Oximetry 04/08/21 04/08/21 04/08/21 15:58 16:00 17:00 Temperature Pulse Rate Respiratory 18 18 18 Rate Blood Pressure O2 Sat by Pulse Oximetry 04/08/21 18:00 Temperature Pulse Rate 78 Respiratory 18 Rate Blood Pressure 111/69 O2 Sat by Pulse 97 Oximetry EKG Findings - EKG Comments: EKG Findings:: Normal sinus rhythm with a rate of 67. FL 138. QRS 70. QT 4:30. QTC 454. Normal axis. Normal QRS. No acute ST change. Procedures - Central Line Placement Right Femoral Consent Obtained: verbal consent, written consent Patient Placed on Monitor/Pulse Ox: Yes Prep: mask, gown, gloves Central Line Prep: Chlorhexidine scrub Local Anesthesia Used: Lidocaine 1% Ultrasound Used for Placement: No Central Line Lumen Inserted: triple Central Line Position: good blood return, all ports aspirated, flushed, capped, sutured in place with 3-0 nylon Complications: arterial puncture/cannulation (Needle was removed and pressure was held without Complication. No hematoma. Line was then placed using a different entrance site without complication. Area again examined following procedure.) Medical Decision Making - Medical Decision Making Patient reevaluated. Patient and family updated. Case was discussed with detail with Dr. Harley, who will admit his patient. Unable to have IV access despite multiple nursing attempts by different providers. Unable to perform ultrasound-guided line placement. Cath team is not present to place ultrasound- guided on their attempts. 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 Therefore central line was done. - Lab Data Result diagrams: 04/08/21 16:45 04/08/21 16:45 Lab Results 04/08/21 04/08/21 04/08/21 Range/Units 16:45 16:45 16:45 WBC 8.6 (3.8-10.6) k/uL RBC 4.51 (3.80-5.40) m/uL Hgb 12.0 (11.4-16.0) gm/dL Hct 36.0 (34.0-46.0) % MCV 79.6 L (80.0-100.0) fL MCH 26.5 (25.0-35.0) pg MCHC 33.3 (31.0-37.0) g/dL RDW 16.5 H (11.5-15.5) % Plt Count 102 L (150-450) k/uL MPV 10.0 Neutrophils % 48 % Lymphocytes % 37 % Monocytes % 8 % Eosinophils % 4 % Basophils % 0 % Neutrophils # 4.1 (1.3-7.7) k/uL Lymphocytes # 3.1 (1.0-4.8) k/uL Monocytes # 0.7 (0-1.0) k/uL Eosinophils # 0.3 (0-0.7) k/uL Basophils # 0.0 (0-0.2) k/uL Poikilocytosis Slight Anisocytosis Slight PT (9.0-12.0) sec INR (<1.2) APTT (22.0-30.0) sec Sodium 138 (137-145) mmol/L Potassium 3.8 (3.5-5.1) mmol/L Chloride 106 (98-107) mmol/L Carbon Dioxide 14 L (22-30) mmol/L Anion Gap 18 mmol/L BUN 81 H (7-17) mg/dL Creatinine 1.69 H (0.52-1.04) mg/dL Est GFR (CKD-EPI)AfAm 37 (>60 ml/min/1.73 sqM) Est GFR (CKD-EPI)NonAf 32 (>60 ml/min/1.73 sqM) Glucose 76 (74-99) mg/dL Plasma Lactic Acid Shen 1.1 (0.7-2.0) mmol/L Calcium 9.6 (8.4-10.2) mg/dL Total Bilirubin 1.0 (0.2-1.3) mg/dL AST 90 H (14-36) U/L ALT 32 (4-34) U/L Alkaline Phosphatase 105 (38-126) U/L Troponin I (0.000-0.034) ng/mL Total Protein 7.7 (6.3-8.2) g/dL Albumin 4.0 (3.5-5.0) g/dL Amylase (30-110) U/L Lipase (23-300) U/L Urine Color Urine Appearance (Clear) Urine pH (5.0-8.0) Ur Specific [place] (1.001-1.035) Urine Protein (Negative) Urine Glucose (UA) (Negative) Urine Ketones (Negative) Urine Blood (Negative) Urine Nitrite (Negative) Urine Bilirubin (Negative) Urine Urobilinogen (<2.0) mg/dL Ur Leukocyte Esterase (Negative) Urine RBC (0-5) /hpf Urine WBC (0-5) /hpf Hyaline Casts (0-2) /lpf Urine Yeast (Budding) (None) /hpf 04/08/21 04/08/21 04/08/21 Range/Units 16:45 16:45 17:13 WBC (3.8-10.6) k/uL RBC (3.80-5.40) m/uL Hgb (11.4-16.0) gm/dL Hct (34.0-46.0) % MCV (80.0-100.0) fL MCH (25.0-35.0) pg MCHC (31.0-37.0) g/dL RDW (11.5-15.5) % Plt Count (150-450) k/uL MPV Neutrophils % % Lymphocytes % % Monocytes % % Eosinophils % % Basophils % % Neutrophils # (1.3-7.7) k/uL Lymphocytes # (1.0-4.8) k/uL Monocytes # (0-1.0) k/uL Eosinophils # (0-0.7) k/uL Basophils # (0-0.2) k/uL Poikilocytosis Anisocytosis PT 11.0 (9.0-12.0) sec INR 1.0 (<1.2) APTT 20.8 L (22.0-30.0) sec Sodium (137-145) mmol/L Potassium (3.5-5.1) mmol/L Chloride (98-107) mmol/L Carbon Dioxide (22-30) mmol/L Anion Gap mmol/L BUN (7-17) mg/dL Creatinine (0.52-1.04) mg/dL Est GFR (CKD-EPI)AfAm (>60 ml/min/1.73 sqM) Est GFR (CKD-EPI)NonAf (>60 ml/min/1.73 sqM) Glucose (74-99) mg/dL Plasma Lactic Acid Shne (0.7-2.0) mmol/L Calcium (8.4-10.2) mg/dL Total Bilirubin (0.2-1.3) mg/dL AST (14-36) U/L ALT (4-34) U/L Alkaline Phosphatase (38-126) U/L Troponin I <0.012 (0.000-0.034) ng/mL Total Protein (6.3-8.2) g/dL Albumin (3.5-5.0) g/dL Amylase 311 H* (30-110) U/L Lipase 970 H (23-300) U/L Urine Color Urine Appearance (Clear) Urine pH (5.0-8.0) Ur Specific [place] (1.001-1.035) Urine Protein (Negative) Urine Glucose (UA) (Negative) Urine Ketones (Negative) Urine Blood (Negative) Urine Nitrite (Negative) Urine Bilirubin (Negative) Urine Urobilinogen (<2.0) mg/dL Ur Leukocyte Esterase (Negative) Urine RBC (0-5) /hpf Urine WBC (0-5) /hpf Hyaline Casts (0-2) /lpf Urine Yeast (Budding) (None) /hpf 04/08/21 Range/Units Unknown WBC (3.8-10.6) k/uL RBC (3.80-5.40) m/uL Hgb (11.4-16.0) gm/dL Hct (34.0-46.0) % MCV (80.0-100.0) fL MCH (25.0-35.0) pg MCHC (31.0-37.0) g/dL RDW (11.5-15.5) % Plt Count (150-450) k/uL MPV Neutrophils % % Lymphocytes % % Monocytes % % Eosinophils % % Basophils % % Neutrophils # (1.3-7.7) k/uL Lymphocytes # (1.0-4.8) k/uL Monocytes # (0-1.0) k/uL Eosinophils # (0-0.7) k/uL Basophils # (0-0.2) k/uL Poikilocytosis Anisocytosis PT (9.0-12.0) sec INR (<1.2) APTT (22.0-30.0) sec Sodium (137-145) mmol/L Potassium (3.5-5.1) mmol/L Chloride (98-107) mmol/L Carbon Dioxide (22-30) mmol/L Anion Gap mmol/L BUN (7-17) mg/dL Creatinine (0.52-1.04) mg/dL Est GFR (CKD-EPI)AfAm (>60 ml/min/1.73 sqM) Est GFR (CKD-EPI)NonAf (>60 ml/min/1.73 sqM) Glucose (74-99) mg/dL Plasma Lactic Acid Shen (0.7-2.0) mmol/L Calcium (8.4-10.2) mg/dL Total Bilirubin (0.2-1.3) mg/dL AST (14-36) U/L ALT (4-34) U/L Alkaline Phosphatase (38-126) U/L Troponin I (0.000-0.034) ng/mL Total Protein (6.3-8.2) g/dL Albumin (3.5-5.0) g/dL Amylase (30-110) U/L Lipase (23-300) U/L Urine Color Yellow Urine Appearance Clear (Clear) Urine pH 5.5 (5.0-8.0) Ur Specific [place] 1.011 (1.001-1.035) Urine Protein Negative (Negative) Urine Glucose (UA) Negative (Negative) Urine Ketones Trace H (Negative) Urine Blood Negative (Negative) Urine Nitrite Negative (Negative) Urine Bilirubin Negative (Negative) Urine Urobilinogen <2.0 (<2.0) mg/dL Ur Leukocyte Esterase Moderate H (Negative) Urine RBC 2 (0-5) /hpf Urine WBC 12 H (0-5) /hpf Hyaline Casts 1 (0-2) /lpf Urine Yeast (Budding) Occasional H (None) /hpf - Radiology Data Radiology results: report reviewed (Computed tomography scan abdomen pelvis does show some thickening and stranding near the pancreatic head.) Disposition Clinical Impression: Pancreatitis Disposition: ADMITTED IP TO THIS HOSP Is patient prescribed a controlled substance at d/c from ED?: No Referrals: Mohit Harley MD [Primary Care Provider] - 1-2 days Decision Time: 18:49
[2021-04-08 15:12] LABS: Appearance,Urine Clear (Clear); Bilirubin,Urine Negative (Negative); Blood,Urine Negative (Negative); Budding Yeast,Urine Occasional /hpf; Color,Urine Yellow; Glucose,Urine (UA) Negative (Negative); Hyaline Casts,Urine 1 /lpf (0-2); Ketones,Urine Trace (Negative); Leukocyte Esterase,Urine Moderate (Negative); Nitrite,Urine Negative (Negative); PH, Urine 5.5 (5.0-8.0); Protein,Urine Negative (Negative); RBC,Urine 2 /hpf (0-5); Specific Gravity,Urine 1.011 (1.001-1.035); Urobilinogen,Urine <2.0 mg/dL (<2.0); WBC,Urine 12 /hpf (0-5)
[2021-04-08 17:06] LABS: Anisocytosis Slight; Basophils % (A) 0 %; Eosinophils # (A) 0.3 k/uL (0-0.7); Eosinophils % (A) 4 %; Lymphocytes # (A) 3.1 k/uL (1.0-4.8); Lymphocytes % (A) 37 %; MCH 26.5 pg (25.0-35.0); MCHC 33.3 g/dL (31.0-37.0); MCV 79.6 fL (80.0-100.0); Monocytes # (A) 0.7 k/uL (0-1.0); Monocytes % (A) 8 %; Neutrophils # (A) 4.1 k/uL (1.3-7.7); Neutrophils % (A) 48 %; Platelet Count 102 k/uL (150-450); Poikilocytosis Slight; RBC 4.51 m/uL (3.80-5.40); RDW 16.5 % (11.5-15.5); WBC 8.6 k/uL (3.8-10.6)
[2021-04-08 17:16] LABS: Calcium 9.6 mg/dL (8.4-10.2); Total Protein 7.7 g/dL (6.3-8.2)
[2021-04-08 17:18] LABS: Potassium 3.8 mmol/L (3.5-5.1)
[2021-04-08 17:42] LABS: Partial Thromboplastin Time 20.8 sec (22.0-30.0)
--- NOTE | 2021-04-08 17:43 | CT ---
EXAMINATION TYPE: CT abdomen pelvis wo con DATE OF EXAM: 04/08/2021 COMPARISON: 04/23/2020 HISTORY: Abdominal pain CT DLP: 438.2 mGycm Automated exposure control for dose reduction was used. Images obtained from the diaphragm to the floor the pelvis with no contrast. There is mild subsegmental atelectasis at the lung bases. Heart size is normal. There is no pericardi al effusion. There are calcified splenic granulomata. Liver is intact. The bile ducts are not dilated . There is no evidence of pancreatic mass. There is some minimal fat stranding around the pancreatic head. There is no fluid seen in the anterior pararenal space. There is no adrenal mass. Kidneys have normal size. There is no hydronephrosis. Ureters are not dilat ed. There is no retroperitoneal adenopathy. Bladder distends smoothly. The pelvic ring is intact. Sacroiliac joints are intact. Proximal femurs and hip joints are intact. T here is no evidence of a pelvic mass. Uterus is anteverted. There is no mesenteric edema. There is no ascites or free air. There is no bowel obstruction. The lum bar vertebra have normal alignment. There is 30% anterior wedging of L2 vertebral body that appears o ld. IMPRESSION: There is improvement in the fibrotic changes and atelectasis at the lung bases compared to old exam. There is some mild fat stranding and thickening around the pancreatic head that could relate to focal pancreatitis and is a change compared to old exam. Follow-up recommended. Pancreatic tumor not exclu ded.
--- NOTE | 2021-04-08 18:01 | XR ---
EXAMINATION TYPE: XR chest 2V DATE OF EXAM: 04/08/2021 COMPARISON: 04/23/2020 HISTORY: Weakness TECHNIQUE: FINDINGS: There is no heart failure. There is slight coarsening of interstitial markings. There is no pulmonary consolidation. Heart size is normal. There is old healed fracture left clavicle. IMPRESSION: Mild coarsening of the lung markings. Inspiration decreased compared to old exam. There i s some minimal atelectasis left lung base.
[2021-04-08 18:34] LABS: Lipase 970 U/L (23-300)
[2021-04-08 18:37] LABS: Amylase 311 U/L (30-110)
[2021-04-08] MEDS ORDERED: ONDANSETRON 4 MG/2 ML VIAL IVP PRN (18:50)
[2021-04-08] MEDS ORDERED: NALOXONE 0.4 MG/ML 1 ML VIAL IV PRN (18:50)
[2021-04-08] MEDS: SODIUM CHLORIDE 0.9% 1,000 ML IV SCH (19:12)
[2021-04-08] MEDS: HYDROmorphone 0.5 MG/0.5 ML SYRINGE IVP PRN (19:54)
[2021-04-09] MEDS: HYDROmorphone 0.5 MG/0.5 ML SYRINGE IVP PRN ×2 (02:04→09:22)
[2021-04-09 06:38] LABS: ALT 29 U/L (4-34); AST 73 U/L (14-36); African American GFR (CKD) 45 (>60 ml/min/1.73 sqM); Albumin 3.5 g/dL (3.5-5.0); Alkaline Phosphatase 102 U/L (38-126); Anion Gap 10 mmol/L; Blood Urea Nitrogen 73 mg/dL (7-17); Calcium 9.5 mg/dL (8.4-10.2); Carbon Dioxide 22 mmol/L (22-30); Chloride 111 mmol/L (98-107); Globulin 3.5 g/dL; Glucose 95 mg/dL (74-99); Lipase 889 U/L (23-300); Non-African American GFR(CKD) 39 (>60 ml/min/1.73 sqM); Potassium 3.7 mmol/L (3.5-5.1); Sodium 143 mmol/L (137-145); Total Bilirubin 0.7 mg/dL (0.2-1.3)
[2021-04-09 07:18] LABS: Amylase 327 U/L (30-110)
[2021-04-09] MEDS: SODIUM CHLORIDE 0.9% 1,000 ML IV SCH ×2 (07:33→20:35)
[2021-04-09] MEDS ORDERED: PANTOPRAZOLE 40 MG/10 ML VIAL IV SCH (09:00)
[2021-04-09 10:29] LABS: Basophils # (A) 0.02 X 10*3/uL (0.00-0.10); Basophils % (A) 0.2 %; Eosinophils # (A) 0.46 X 10*3/uL (0.04-0.35); Eosinophils % (A) 5.4 %; HCT 32.8 % (37.2-46.3); HGB 10.5 g/dL (12.0-15.0); Lymphocytes # (A) 3.49 X 10*3/uL (0.90-5.00); Lymphocytes % (A) 40.9 %; MCH 24.5 pg (27.0-32.0); MCV 76.6 fL (80.0-97.0); Monocytes # (A) 1.23 X 10*3/uL (0.20-1.00); Monocytes % (A) 14.4 %; Neutrophils # (A) 3.29 X 10*3/uL (1.80-7.70); Neutrophils % (A) 38.5 %; Platelet Count 107 X 10*3/uL (140-440); RBC 4.28 X 10*6/uL (4.10-5.20); RDW 17.2 % (11.5-14.5); WBC 8.54 X 10*3/uL (4.50-10.00)
[2021-04-09 10:30] LABS: Acanthocytes 2+
--- NOTE | 2021-04-09 12:56 | HP ---
HISTORY AND PHYSICAL This is a 60-year-old -[place] female with decreased appetite, abdominal pain, generalized weakness, near-falls, unable to ambulate. She was found to have severe pancreatitis and admitted with severe dehydration in the emergency room. Surgical consult is pending. She has a history of seizures, bipolar. HOME MEDICATIONS: Zoloft mg daily, allopurinol 100 mg daily, Depakote 500 b.i.d., aspirin 81 daily, Lasix 40 daily, metoprolol tartrate 100 b.i.d., Abilify 10 at night. ALLERGIES: NEGATIVE. REVIEW OF SYSTEMS: Fourteen-point review of systems otherwise negative. MUSCULOSKELETAL: She is unable to ambulate or get up out of the floor. She has history of a CVA, TIA, hypertension, dyslipidemia, CVA with left arm weakness, history of gallstones. C-sections, cholecystectomy, orthopedic surgery, aneurysms, stents to the brain. FAMILY HISTORY: Father with cancer rectal. Mother with myocardial infarction, stroke. PHYSICAL EXAMINATION: Vital signs stable. Afebrile. CARDIOVASCULAR: S1, S2. LUNGS: Clear. GI: Distended, tense to palpation, diffuse. Increased bowel sounds. Mild guarding. Motor strength in lower extremities 3/3, upper on the left 3/5, right upper 5/5. PSYCH: Fair mood and affect. Temperature is 98, pulse 70s. Blood pressure 108/83, pulse 69, respiratory rate 16 to 18. Cardiovascular as mentioned above. BUN is 81, creatinine 1.69. ASSESSMENT: 1. Prerenal renal insufficiency. 2. Dehydration. 3. Acute on chronic pancreatitis. Surgical consult. Fluid rehydration. Broad-spectrum antibiotics. Prognosis guarded. Possible UTI. Treat with antibiotics also. MMODL / IJN: [id number] /
--- NOTE | 2021-04-09 13:41 | P.GSCN ---
History of Present Illness Consult date: 04/09/21 Requesting physician: Mohit Harley History of present illness: CHIEF COMPLAINT: Abdominal pain HISTORY OF PRESENT ILLNESS: This a 60-year-old -[place] female who presented to the emergency department yesterday afternoon with complaints of decreased appetite, abdominal pain and generalized weakness. She states she has not been feeling well so has had decreased oral intake for the last couple days duration. She has a past medical history of CVA/TIA, hyperlipidemia, hypertension, chronic pancreatitis and brain aneurysms with stenting. Patient has a history of abdominal surgeries including section and cholecystectomy. On admission patient was noted to have elevated amylase and lipase and a CT of the abdomen showed mild pancreatitis, therefore general surgery was consulted. CT of the abdomen and pelvis showed improvement and fibrotic changes and atelectasis at the lung bases compared to old exam. Some mild fat stranding in thickness around the pancreatic head that could relate to focal pancreatitis and is a change compared to old exam. Follow-up recommended. Pancreatic tumor not excluded. On admission amylase was 311 and lipase 970, repeat today 327 and 889 respectively. LFTs unremarkable. The patient denies any new medications. Patient states abdominal pain has improved, she is denying any nausea or vomiting. Bowel movements are normal. She's been afebrile. Patient underwent EGD 12/06/2020 by prior history of peptic ulcer disease, findings included antral gastritis. PAST MEDICAL HISTORY: See list. PAST SURGICAL HISTORY: See list. MEDICATIONS: See list. ALLERGIES: See list. SOCIAL HISTORY: No illicit drug use. REVIEW OF SYSTEMS: CONSTITUTIONAL: Denies fever or chills. Decreased appetite. Weakness. HEENT: Denies blurred vision, vision changes, or eye pain. Denies hemoptysis ENDOCRINE: Denies heat or cold intolerance. CARDIOVASCULAR: Denies chest pain or pressure. RESPIRATORY: No shortness of breath. GASTROINTESTINAL: Epigastric and right upper quadrant tenderness. Denies nausea or vomiting. Decreased appetite and oral intake. No significant weight loss. NEURO: Denies history of seizures. PSYCH: No depression or suicidal ideation HEMATOLOGIC: Denies bleeding disorders. LYMPHATIC: The patient denies any lumps and bumps around the neck. GENITOURINARY: Denies any blood in urine or increased urinary frequency. MUSCULOSKELETAL: Denies myalgias. Denies joint swelling. Denies decreased range of motion beyond patients baseline. SKIN: Denies pruitis. Denies rash. PHYSICAL EXAM: VITAL SIGNS: Reviewed GENERAL: Well-developed in no acute distress. HEENT: No sclera icterus. Extraocular movements grossly intact. Moist buccal mucosa. Head is atraumatic, normocephalic. Hears conversational speech. No nasal drainage. NECK: Supple without lymphadenopathy. CHEST: Non-labored respirations and equal bilateral excursions. CARDIOVASCULAR: Palpable 2+ radial pulses. ABDOMEN: Soft. Nondistended. Right upper quadrant and epigastric tenderness. MUSCULOSKELETAL: No clubbing or cyanosis. NEUROLOGIC: No focal or lateralizing signs. Cranial nerves II through XII grossly intact. PSYCH: Appropriate affect. Alert and oriented to person, place and time. SKIN: Well perfused. Good skin turgor. LABORATORY DATA: WBC 8.5 hemoglobin 10.5 platelet count 107,000 INR 1.0 Sodium 143 potassium 3.7 BUN 73 creatinine 1.44 glucose 95 Total bilirubin 0.7 AST 73 AST 29 alk phos 102 albumin 3.5 amylase 327 lipase 889 IMAGING: CT of the abdomen and pelvis showed improvement and fibrotic changes and atelectasis at the lung bases compared to old exam. Some mild fat stranding in thickness around the pancreatic head that could relate to focal pancreatitis and is a change compared to old exam. Follow-up recommended. Pancreatic tumor not excluded. ASSESSMENT: 1. Acute on chronic pancreatitis PLAN: - Clear liquid diet - Repeat CBC, CMP, lipase in the morning - No surgical intervention planned - Continue conservative management - Protonix for GI prophylaxis - Antiemetics as needed - Pain medication as needed - Consider MRI/MRCP of the pancreas, however patient is not a candidate as she has coiling and stents and brain The impression and plan of care has been dictated as directed. I performed a history and examination of this patient, discussed the same with the dictator. I agree with the dictator's note ,documented as a scribe. Any additional findings or plans will be noted. 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 gout, P ANCREATITIS, pseudoseizures. UTI, gallstones, LIPS AND ONE HAND SHAKES SOMETIMES, hx multiple brain aneursyms History of Any Multi-Drug Resistant Organisms: ESBL Year Discovered:: 03/18/18 ESBL E.coli MDRO Source:: Urine Past Surgical History: Section, Cholecystectomy, Orthopedic Surgery Additional Past Surgical History / Comment(s): hx aneurysms- COILS AND STENTS TO BRAIN, repair tendons r/t gout BILATERAL FEET. Past Anesthesia/Blood Transfusion Reactions: No Reported Reaction Additional Past Anesthesia/Blood Transfusion Reaction / Comm: PT HAS HAD BLOOD TRANSFUSIONS FOR ANEMIA-NO REACTION. Past Psychological History: Depression, Schizophrenia Additional Psychological History / Comment(s): paranoid schizophrenia Smoking Status: Unknown if ever smoked Past Alcohol Use History: None Reported Additional Past Alcohol Use History / Comment(s): STARTED SMOKING AT AGE 14, SMOKED 1PPD, QUIT >20 YEARS AGO BUT SMOKED AGAIN BRIEFLY WHEN AT [place] BUT QUIT 1.5 YERAS AGO Past Drug Use History: Cocaine Additional Drug Use History / Comment(s): No current use. Last used 15 yrs ago. - Past Family History Sister(s) Family Medical History: Myocardial Infarction ([place]) Father Family Medical History: Cancer Additional Family Medical History / Comment(s): throat, lung, and rectal cancer Mother Family Medical History: Myocardial Infarction ([place]) Additional Family Medical History / Comment(s): stroke Medications and Allergies Home Medications Medication Instructions Recorded Confirmed Type Aspirin EC [Ecotrin Low Dose] 81 mg PO DAILY 04/12/16 04/08/21 History Furosemide [Lasix] 40 mg PO DAILY 01/04/17 04/08/21 History Metoprolol Tartrate 100 mg PO BID 01/04/17 04/08/21 History Sertraline [Zoloft] 100 mg PO DAILY 01/04/17 04/08/21 History Omeprazole [PriLOSEC] 20 mg PO DAILY 02/09/20 04/08/21 History allopurinoL [Zyloprim] 100 mg PO DAILY 02/09/20 04/08/21 History Atorvastatin [Lipitor] 20 mg PO HS #30 tab 02/13/20 04/08/21 Rx Divalproex Sodium [Depakote] 500 mg PO BID 04/23/20 04/08/21 History Sertraline [Zoloft] 25 mg PO DAILY 04/23/20 04/08/21 History ARIPiprazole [Abilify] 10 mg PO HS 04/08/21 04/08/21 History Allergies Allergy/AdvReac Type Severity Reaction Status Date / Time No Known Allergies Allergy Verified 04/08/21 14:55 Surgical - Exam Vital Signs Temp Pulse Resp BP Pulse Ox 98.3 F 71 18 108/83 99 04/08/21 12:56 04/08/21 12:56 04/08/21 12:56 04/08/21 12:56 04/08/21 12:56 Results - Labs 04/09/21 05:27 04/09/21 05:27 Abnormal Lab Results - Last 24 Hours (Table) 04/08/21 04/08/21 04/08/21 Range/Units 16:45 16:45 16:45 Hgb (12.0-15.0) g/dL Hct (37.2-46.3) % MCV 79.6 L (80.0-100.0) fL MCH (27.0-32.0) pg RDW 16.5 H (11.5-15.5) % Plt Count 102 L (150-450) k/uL Plt Count Comment Absolute Nucleated RBC (0.00-0.00) X 10*3/uL Immature Gran # (0.00-0.04) X 10*3/uL Monocytes # (0.20-1.00) X 10*3/uL Eosinophils # (0.04-0.35) X 10*3/uL NRBC/100 WBC Diff (0.0-0.0) /100 WBCS APTT (22.0-30.0) sec Chloride (98-107) mmol/L Carbon Dioxide 14 L (22-30) mmol/L BUN 81 H (7-17) mg/dL Creatinine 1.69 H (0.52-1.04) mg/dL AST 90 H (14-36) U/L Amylase 311 H* (30-110) U/L Lipase 970 H (23-300) U/L Urine Ketones (Negative) Ur Leukocyte Esterase (Negative) Urine WBC (0-5) /hpf Urine Yeast (Budding) (None) /hpf 04/08/21 04/08/21 04/09/21 Range/Units 17:13 Unknown 05:27 Hgb 10.5 L (12.0-15.0) g/dL Hct 32.8 L (37.2-46.3) % MCV 76.6 L (80.0-100.0) fL MCH 24.5 L (27.0-32.0) pg RDW 17.2 H (11.5-15.5) % Plt Count 107 L (150-450) k/uL Plt Count Comment DECREASED A Absolute Nucleated RBC 0.02 H (0.00-0.00) X 10*3/uL Immature Gran # 0.05 H (0.00-0.04) X 10*3/uL Monocytes # 1.23 H (0.20-1.00) X 10*3/uL Eosinophils # 0.46 H (0.04-0.35) X 10*3/uL NRBC/100 WBC Diff 0.2 H (0.0-0.0) /100 WBCS APTT 20.8 L (22.0-30.0) sec Chloride (98-107) mmol/L Carbon Dioxide (22-30) mmol/L BUN (7-17) mg/dL Creatinine (0.52-1.04) mg/dL AST (14-36) U/L Amylase (30-110) U/L Lipase (23-300) U/L Urine Ketones Trace H (Negative) Ur Leukocyte Esterase Moderate H (Negative) Urine WBC 12 H (0-5) /hpf Urine Yeast (Budding) Occasional H (None) /hpf 04/09/21 Range/Units 05:27 Hgb (12.0-15.0) g/dL Hct (37.2-46.3) % MCV (80.0-100.0) fL MCH (27.0-32.0) pg RDW (11.5-15.5) % Plt Count (150-450) k/uL Plt Count Comment Absolute Nucleated RBC (0.00-0.00) X 10*3/uL Immature Gran # (0.00-0.04) X 10*3/uL Monocytes # (0.20-1.00) X 10*3/uL Eosinophils # (0.04-0.35) X 10*3/uL NRBC/100 WBC Diff (0.0-0.0) /100 WBCS APTT (22.0-30.0) sec Chloride 111 H (98-107) mmol/L Carbon Dioxide (22-30) mmol/L BUN 73 H (7-17) mg/dL Creatinine 1.44 H (0.52-1.04) mg/dL AST 73 H (14-36) U/L Amylase 327 H* (30-110) U/L Lipase 889 H (23-300) U/L Urine Ketones (Negative) Ur Leukocyte Esterase (Negative) Urine WBC (0-5) /hpf Urine Yeast (Budding) (None) /hpf Microbiology - Last 24 Hours (Table) 04/08/21 Unknown Urine Culture - Preliminary Urine,Clean Catch Diabetes panel 04/08/21 04/09/21 Range/Units 16:45 05:27 Sodium 138 143 (137-145) mmol/L Potassium 3.8 3.7 (3.5-5.1) mmol/L Chloride 106 111 H (98-107) mmol/L Carbon Dioxide 14 L 22 (22-30) mmol/L BUN 81 H 73 H (7-17) mg/dL Creatinine 1.69 H 1.44 H (0.52-1.04) mg/dL Glucose 76 95 (74-99) mg/dL Calcium 9.6 9.5 (8.4-10.2) mg/dL AST 90 H 73 H (14-36) U/L ALT 32 29 (4-34) U/L Alkaline Phosphatase 105 102 (38-126) U/L Total Protein 7.7 7.0 (6.3-8.2) g/dL Albumin 4.0 3.5 (3.5-5.0) g/dL Calcium panel 04/08/21 04/09/21 Range/Units 16:45 05:27 Calcium 9.6 9.5 (8.4-10.2) mg/dL Albumin 4.0 3.5 (3.5-5.0) g/dL Pituitary panel 04/08/21 04/09/21 Range/Units 16:45 05:27 Sodium 138 143 (137-145) mmol/L Potassium 3.8 3.7 (3.5-5.1) mmol/L Chloride 106 111 H (98-107) mmol/L Carbon Dioxide 14 L 22 (22-30) mmol/L BUN 81 H 73 H (7-17) mg/dL Creatinine 1.69 H 1.44 H (0.52-1.04) mg/dL Glucose 76 95 (74-99) mg/dL Calcium 9.6 9.5 (8.4-10.2) mg/dL Adrenal panel 04/08/21 04/09/21 Range/Units 16:45 05:27 Sodium 138 143 (137-145) mmol/L Potassium 3.8 3.7 (3.5-5.1) mmol/L Chloride 106 111 H (98-107) mmol/L Carbon Dioxide 14 L 22 (22-30) mmol/L BUN 81 H 73 H (7-17) mg/dL Creatinine 1.69 H 1.44 H (0.52-1.04) mg/dL Glucose 76 95 (74-99) mg/dL Calcium 9.6 9.5 (8.4-10.2) mg/dL Total Bilirubin 1.0 0.7 (0.2-1.3) mg/dL AST 90 H 73 H (14-36) U/L ALT 32 29 (4-34) U/L Alkaline Phosphatase 105 102 (38-126) U/L Total Protein 7.7 7.0 (6.3-8.2) g/dL Albumin 4.0 3.5 (3.5-5.0) g/dL
[2021-04-09 14:56] VITALS: BMI 18.8
[2021-04-09] MEDS: METOPROLOL TARTRATE 50 MG TAB PO SCH (20:34)
[2021-04-09] MEDS: ATORVASTATIN 20 MG TAB PO SCH (20:34)
[2021-04-09] MEDS: DIVALPROEX 500 MG TABLET.DR PO SCH (20:34)
[2021-04-09] MEDS: ARIPiprazole 10 MG TAB PO SCH (20:34)
[2021-04-10] MEDS ORDERED: HYDROmorphone 0.5 MG/0.5 ML SYRINGE ONE (01:55)
[2021-04-10 06:28] LABS: ALT 24 U/L (4-34); AST 56 U/L (14-36); African American GFR (CKD) 50 (>60 ml/min/1.73 sqM); Albumin 3.1 g/dL (3.5-5.0); Albumin/Globulin Ratio 0.9; Alkaline Phosphatase 126 U/L (38-126); Anion Gap 10 mmol/L; Blood Urea Nitrogen 53 mg/dL (7-17); Calcium 9.1 mg/dL (8.4-10.2); Carbon Dioxide 18 mmol/L (22-30); Chloride 116 mmol/L (98-107); Globulin 3.5 g/dL; Glucose 111 mg/dL (74-99); Lipase 1079 U/L (23-300); Non-African American GFR(CKD) 43 (>60 ml/min/1.73 sqM); Potassium 3.6 mmol/L (3.5-5.1); Sodium 144 mmol/L (137-145); Total Bilirubin 0.6 mg/dL (0.2-1.3); Total Protein 6.6 g/dL (6.3-8.2)
[2021-04-10] MEDS: allopurinoL 100 MG TAB PO SCH (07:53)
[2021-04-10] MEDS: METOPROLOL TARTRATE 50 MG TAB PO SCH ×2 (07:53→20:50)
[2021-04-10] MEDS: PANTOPRAZOLE 40 MG TABLET PO SCH (07:54)
[2021-04-10] MEDS: FUROSEMIDE 40 MG TAB PO SCH (07:54)
[2021-04-10] MEDS: ASPIRIN 81 MG PO SCH (07:54)
[2021-04-10] MEDS: SERTRALINE 100 MG TAB PO SCH (07:54)
[2021-04-10] MEDS: DIVALPROEX 500 MG TABLET.DR PO SCH ×2 (07:54→20:50)
[2021-04-10] MEDS: SODIUM CHLORIDE 0.9% 1,000 ML IV SCH ×2 (08:36→20:51)
[2021-04-10] MEDS: HYDROmorphone 0.5 MG/0.5 ML SYRINGE IVP PRN (09:42)
[2021-04-10 10:31] LABS: Basophils # (A) 0.03 X 10*3/uL (0.00-0.10); Basophils % (A) 0.3 %; Eosinophils # (A) 0.82 X 10*3/uL (0.04-0.35); Eosinophils % (A) 9.1 %; HCT 31.7 % (37.2-46.3); HGB 10.4 g/dL (12.0-15.0); Lymphocytes # (A) 3.68 X 10*3/uL (0.90-5.00); Lymphocytes % (A) 40.8 %; MCHC 32.8 g/dL (32.0-37.0); MCV 79.3 fL (80.0-97.0); Monocytes # (A) 1.16 X 10*3/uL (0.20-1.00); Monocytes % (A) 12.8 %; Neutrophils # (A) 3.27 X 10*3/uL (1.80-7.70); Neutrophils % (A) 36.2 %; Platelet Count 137 X 10*3/uL (140-440); RDW 17.4 % (11.5-14.5); WBC 9.03 X 10*3/uL (4.50-10.00)
--- NOTE | 2021-04-10 10:47 | P.PN ---
Subjective Progress Note Date: 04/10/21 CHIEF COMPLAINT: Epigastric pain HISTORY OF PRESENT ILLNESS: 60-year-old female who presented to the emergency department with complaints of abdominal pain, decreased appetite and generalized weakness. Patient was noted to have elevation in her amylase and lipase and a CT of the abdomen that showed mild fat stranding and thickness around the pancreatic head that could relate to focal pancreatitis and is a change compared to old exam. Follow-up recommended. Pancreatic tumor not excluded. Patient does have a history of brain aneurysms and has had coiling and stents therefore is not a candidate for MRI MRCP of the pancreas. Patient states she was a heavy drinker in the past, states that she drank beer daily. States she has not had any alcohol for several years. Patient states abdominal pain is about the same, she's been on a clear liquid diet but not taking in much oral intake. She is afebrile. Patient denies any bowel movement today. Lipase has increased from 889-1079. LFTs unremarkable. WBC 9 hemoglobin 10.4 platelet count 137,000 PHYSICAL EXAM: VITAL SIGNS: Reviewed. GENERAL: Well-developed in no acute distress. HEENT: No sclera icterus. Extraocular movements grossly intact. Moist buccal mucosa. Head is atraumatic, normocephalic. ABDOMEN: Soft. Nondistended. Epigastric tenderness. NEUROLOGIC: Alert and oriented. Cranial nerves II through XII grossly intact. ASSESSMENT: 1. Acute on chronic pancreatitis 2. Thrombocytopenia PLAN: -We'll change patient diet to nothing by mouth with ice chips -CA 19-9 ordered -Increase normal saline to 100 mL per hour -Repeat CBC, CMP, lipase in the morning -No surgical intervention planned -Continue Protonix for GI prophylaxis -Antiemetics as needed -Pain medication as needed -Consider MRI/MRCP of the pancreas, however patient is not a candidate as she has coiling and stents in the brain -Consult oncology for possible pancreatic mass on abdominal CT The impression and plan of care has been dictated as directed. I performed a history and examination of this patient, discussed the same with the dictator. I agree with the dictator's note ,documented as a scribe. Any additional findings or plans will be noted. Objective - Vital Signs Vital signs: Vital Signs Temp 97.6 F 04/10/21 07:00 Pulse 73 04/10/21 07:00 Resp 15 04/10/21 07:00 BP 107/74 04/10/21 07:00 Pulse Ox 99 04/10/21 07:00 Intake & Output 04/09/21 04/10/21 04/10/21 18:59 06:59 18:59 Output Total 200 Balance -200 Weight 45.359 kg Output: Urine 200 Other: Voiding Method Bedpan Bedpan Bedpan Incontinent Incontinent Incontinent # Voids 1 1 - Labs CBC & Chem 7: 04/10/21 05:40 04/10/21 05:40 Labs: Abnormal Lab Results - Last 24 Hours (Table) 04/10/21 04/10/21 Range/Units 05:40 05:40 RBC 4.00 L (4.10-5.20) X 10*6/uL Hgb 10.4 L (12.0-15.0) g/dL Hct 31.7 L (37.2-46.3) % MCV 79.3 L (80.0-97.0) fL MCH 26.0 L (27.0-32.0) pg RDW 17.4 H (11.5-14.5) % Plt Count 137 L (140-440) X 10*3/uL Absolute Nucleated RBC 0.02 H (0.00-0.00) X 10*3/uL Immature Gran # 0.07 H (0.00-0.04) X 10*3/uL Monocytes # 1.16 H (0.20-1.00) X 10*3/uL Eosinophils # 0.82 H (0.04-0.35) X 10*3/uL NRBC/100 WBC Diff 0.2 H (0.0-0.0) /100 WBCS Chloride 116 H (98-107) mmol/L Carbon Dioxide 18 L (22-30) mmol/L BUN 53 H (7-17) mg/dL Creatinine 1.32 H (0.52-1.04) mg/dL Glucose 111 H (74-99) mg/dL AST 56 H (14-36) U/L Albumin 3.1 L (3.5-5.0) g/dL Lipase 1079 H (23-300) U/L Microbiology - Last 24 Hours (Table) 04/08/21 Unknown Urine Culture - Preliminary Urine,Clean Catch Yeast species Gram Neg Bacilli
--- NOTE | 2021-04-10 15:26 | PN ---
PROGRESS NOTE This patient was admitted with pancreatitis, unclear etiology. Surgery consult saw her. Her abdominal pain is slightly improved since admission. She has a history of brain aneurysm with stents, so they cannot do an MRI, MRCP. No alcohol for several years. She is on clear liquid diet. LFTs unremarkable. Platelet count 137,000. She was dehydrated on admission and appears to be better. Neurologic: Cranial nerves intact. Abdomen soft. HEENT normal external ear canals within normal limits. Normocephalic, atraumatic. ASSESSMENT: 1. Acute on chronic pancreatitis. 2. Thrombocytopenia. 3. Dehydration. CA-19-9 ordered. Normal saline to 100 an hour, Protonix, antiemetics. Oncology for possible pancreatic mass on the CT. Please see further orders. Blood pressure is 107/74, respiratory rate 16-18, pulse 73, temperature 97.6. Lungs are clear. Psych: Fair mood and affect. Neurologic: Alert and oriented x3. GI: Diffuse tenderness. No mass or organomegaly. Prognosis guarded. MMODL / IJN: [id number] /
[2021-04-10] MEDS: ATORVASTATIN 20 MG TAB PO SCH (20:50)
[2021-04-10] MEDS: ARIPiprazole 10 MG TAB PO SCH (20:50)
[2021-04-11 06:52] LABS: African American GFR (CKD) 61 (>60 ml/min/1.73 sqM); Anion Gap 10 mmol/L; Blood Urea Nitrogen 35 mg/dL (7-17); Calcium 8.7 mg/dL (8.4-10.2); Carbon Dioxide 17 mmol/L (22-30); Chloride 118 mmol/L (98-107); Glucose 67 mg/dL (74-99); Lipase 523 U/L (23-300); Non-African American GFR(CKD) 53 (>60 ml/min/1.73 sqM); Sodium 145 mmol/L (137-145)
[2021-04-11 06:56] LABS: Potassium 4.2 mmol/L (3.5-5.1)
[2021-04-11] MEDS: ASPIRIN 81 MG PO SCH (08:35)
[2021-04-11] MEDS: allopurinoL 100 MG TAB PO SCH (08:35)
[2021-04-11] MEDS: DIVALPROEX 500 MG TABLET.DR PO SCH ×2 (08:36→21:10)
[2021-04-11] MEDS: FUROSEMIDE 40 MG TAB PO SCH (08:36)
[2021-04-11] MEDS: PANTOPRAZOLE 40 MG TABLET PO SCH (08:36)
[2021-04-11] MEDS: METOPROLOL TARTRATE 50 MG TAB PO SCH ×2 (08:36→21:10)
[2021-04-11] MEDS: SERTRALINE 100 MG TAB PO SCH (08:40)
[2021-04-11 09:37] LABS: Basophils # (A) 0.02 X 10*3/uL (0.00-0.10); Basophils % (A) 0.2 %; Eosinophils # (A) 0.83 X 10*3/uL (0.04-0.35); Eosinophils % (A) 9.2 %; Lymphocytes # (A) 3.86 X 10*3/uL (0.90-5.00); Lymphocytes % (A) 42.9 %; MCHC 32.3 g/dL (32.0-37.0); MCV 80.5 fL (80.0-97.0); Monocytes # (A) 0.84 X 10*3/uL (0.20-1.00); Monocytes % (A) 9.3 %; Neutrophils # (A) 3.36 X 10*3/uL (1.80-7.70); Neutrophils % (A) 37.5 %; Platelet Count 102 X 10*3/uL (140-440); RBC 3.85 X 10*6/uL (4.10-5.20); WBC 8.99 X 10*3/uL (4.50-10.00)
--- NOTE | 2021-04-11 11:03 | P.PN ---
Subjective Progress Note Date: 04/11/21 CHIEF COMPLAINT: Epigastric pain HISTORY OF PRESENT ILLNESS: 60-year-old female who presented to the emergency department with complaints of abdominal pain, decreased appetite and generalized weakness. Patient was noted to have elevation in her amylase and lipase and a CT of the abdomen that showed mild fat stranding and thickness around the pancreatic head that could relate to focal pancreatitis and is a change compared to old exam. Follow-up recommended. Pancreatic tumor not excluded. Patient does have a history of brain aneurysms and has had coiling and stents therefore is not a candidate for MRI MRCP of the pancreas. Patient states she was a heavy drinker in the past, states that she drank beer daily. States she has not had any alcohol for several years. Patient states abdominal pain is improved. Mild nausea with no vomiting. She is afebrile. Patient denies any bowel movement today, last bowel movement on Thursday. WBC 8.9 hemoglobin 10.0 platelet count 102,000. Lipase improving, today 523. PHYSICAL EXAM: VITAL SIGNS: Reviewed. GENERAL: Well-developed in no acute distress. HEENT: No sclera icterus. Extraocular movements grossly intact. Moist buccal mucosa. Head is atraumatic, normocephalic. ABDOMEN: Soft. Nondistended. Epigastric tenderness. NEUROLOGIC: Alert and oriented. Cranial nerves II through XII grossly intact. ASSESSMENT: 1. Acute on chronic pancreatitis 2. Thrombocytopenia PLAN: -Advanced to clear liquid diet, then advance as tolerated -CA 19-9 ordered, pending -Continue IV hydration -Repeat CBC, CMP, lipase in the morning -No surgical intervention planned -Continue Protonix for GI prophylaxis -Antiemetics as needed -Pain medication as needed -Consider MRI/MRCP of the pancreas, however patient is not a candidate as she has coiling and stents in the brain -Oncology consulted, appreciate their recommendations -Patient is cleared for discharge from Gen. surgery The impression and plan of care has been dictated as directed. I performed a history and examination of this patient, discussed the same with the dictator. I agree with the dictator's note ,documented as a scribe. Any additional findings or plans will be noted. Objective - Vital Signs Vital signs: Vital Signs Temp 98.2 F 04/11/21 07:00 Pulse 78 04/11/21 07:00 Resp 19 04/11/21 07:00 BP 105/71 04/11/21 07:00 Pulse Ox 100 04/11/21 07:00 Intake & Output 04/10/21 04/11/21 04/11/21 18:59 06:59 18:59 Output Total 350 700 Balance -350 -700 Output: Urine 350 700 Other: Voiding Method Bedpan Bedpan Incontinent Incontinent # Voids 1 2 # Bowel Movements 0 - Labs CBC & Chem 7: 04/11/21 05:16 04/11/21 05:16 Labs: Abnormal Lab Results - Last 24 Hours (Table) 04/10/21 04/11/21 Range/Units 05:40 05:16 RBC 4.00 L (4.10-5.20) X 10*6/uL Hgb 10.4 L (12.0-15.0) g/dL Hct 31.7 L (37.2-46.3) % MCV 79.3 L (80.0-97.0) fL MCH 26.0 L (27.0-32.0) pg RDW 17.4 H (11.5-14.5) % Plt Count 137 L (140-440) X 10*3/uL Absolute Nucleated RBC 0.02 H (0.00-0.00) X 10*3/uL Immature Gran # 0.07 H (0.00-0.04) X 10*3/uL Monocytes # 1.16 H (0.20-1.00) X 10*3/uL Eosinophils # 0.82 H (0.04-0.35) X 10*3/uL NRBC/100 WBC Diff 0.2 H (0.0-0.0) /100 WBCS Chloride 118 H (98-107) mmol/L Carbon Dioxide 17 L (22-30) mmol/L BUN 35 H (7-17) mg/dL Creatinine 1.12 H (0.52-1.04) mg/dL Glucose 67 L (74-99) mg/dL Lipase 523 H (23-300) U/L Microbiology - Last 24 Hours (Table) 04/08/21 Unknown Urine Culture - Final Urine,Clean Catch Kaci albicans Escherichia coli
[2021-04-11] MEDS: HYDROmorphone 0.5 MG/0.5 ML SYRINGE IVP PRN (11:26)
[2021-04-11] MEDS: SODIUM CHLORIDE 0.9% 1,000 ML IV SCH ×2 (11:28→21:10)
--- NOTE | 2021-04-11 13:07 | CDI ---
Documentation Clarification Form Date: 04/11/2021 12:40:00 PM From: Kirsty Flores RN, CCDS Admit Date: 04/10/2021 10:58:00 AM Patient Name: Jeane Urbano Visit Number: [id number] ATTENTION: The Clinical Documentation Specialists (CDI) and [facility] Coding Staff appreciate your assistance in clarifying documentation. Please respond to the clarification below the line at the bottom and electronically sign. The CDI & [facility] Coding staff will review the response and follow-up if needed. Please note: Queries are made part of the Legal Health Record. If you have any questions, please contact the author of this message via ITS. Dr. Mohit Harley Prerenal renal insufficiency is documented in the H&P. Additional clarification regarding if a possible clinical diagnosis is appropriate for the documented sign and symptom. History/Risk Factors: Acute on Chronic Pancreatitis, Dehydration, UTI, CVA with Left Arm Weakness, Gallstones, Aneurysm Coils in Brain Clinical Indicators: Patients baseline/prior BUN/CR/GFR: 58/1.7/31.8 Current BUN: 81/73/53/35 Cr: 1.69/1.44/1.32/1.12 GFR:32/39/43/53 Transplant status, Hemodialysis status 04/09 H&P: "Prerenal renal insufficiency." Treatment: 04/10-04/11 Lasix 40 mg Po QD Lasix 20mg Po Daily 04/09-04/11 Lopressor 100 mg PO BID 04/11 Lopressor 50 mg PO BID 0.9% NS @ 100 cc/hr. Please clarify the renal insufficiency, if known: [ ] Acute Renal Failure (specify cause if known) [ ] Chronic renal failure (specify stage if known) [ ] CKD Stage 3 (GFR 30-59) [ ] CKD Stage 3a (GFR 45-59) [ ] CKD Stage 3b (GFR 30-44) [ ] Acute on Chronic Renal Failure [ ] CKD Stage 3 (GFR 30-59) [ ] CKD Stage 3a (GFR 45-59) [ ] CKD Stage 3b (GFR 30-44) [ ] Other, please specify [ ] Unable to determine (Template Last Revised: September 2020) MTDD
--- NOTE | 2021-04-11 20:16 | P.CONS ---
History of Present Illness - Reason for Consult Consult date: 04/11/21 Possible pancreatic mass Requesting physician: Toña Sellers - Chief Complaint pancreatitis - History of Present Illness Mrs. Urbano is a very pleasant female we have been asked to see in regards to a possible pancreatic mass found on imaging as she was admitted with abd pain, elevated amylase and lipase. She denies any Hx of cancer, she has lost about a #100 lbs over the last year, she notes diarrhea recently, denies dysphagia, N,V, she has Hx of ETOH, until 2-3 years ago, no abd bloating, black or bloody stool, she has LUE affected from Hx stroke. Ca 19.9 ordered for evaluation. She cannot have MRI 2/2 metal coils in brain from aneurism Tx. Review of Systems 10 point ROS is neg except as stated in HPI Past Medical History Past Medical History: CVA/TIA, Hyperlipidemia, Hypertension Additional Past Medical History / Comment(s): ANEMIA, 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 gout, PANCREATITIS, pseudoseizures. UTI, gallstones, LIPS AND ONE HAND SHAKES SOMETIMES, hx multiple brain aneursyms History of Any Multi-Drug Resistant Organisms: ESBL Year Discovered:: 03/18/18 ESBL E.coli MDRO Source:: Urine Past Surgical History: Section, Cholecystectomy, Orthopedic Surgery Additional Past Surgical History / Comment(s): hx aneurysms- COILS AND STENTS TO BRAIN, repair tendons r/t gout BILATERAL FEET. Past Anesthesia/Blood Transfusion Reactions: No Reported Reaction Additional Past Anesthesia/Blood Transfusion Reaction / Comm: PT HAS HAD BLOOD TRANSFUSIONS FOR ANEMIA-NO REACTION. Past Psychological History: Depression, Schizophrenia Additional Psychological History / Comment(s): paranoid schizophrenia Smoking Status: Unknown if ever smoked Past Alcohol Use History: None Reported Additional Past Alcohol Use History / Comment(s): STARTED SMOKING AT AGE 14, SMOKED 1PPD, QUIT >20 YEARS AGO BUT SMOKED AGAIN BRIEFLY WHEN AT [place] BUT QUIT 1.5 YERAS AGO Past Drug Use History: Cocaine Additional Drug Use History / Comment(s): No current use. Last used 15 yrs ago. - Past Family History Sister(s) Family Medical History: Myocardial Infarction ([place]) Father Family Medical History: Cancer Additional Family Medical History / Comment(s): throat, lung, and rectal cancer Mother Family Medical History: Myocardial Infarction ([place]) Additional Family Medical History / Comment(s): stroke Medications and Allergies Home Medications Medication Instructions Recorded Confirmed Type Aspirin EC [Ecotrin Low Dose] 81 mg PO DAILY 04/12/16 04/08/21 History Furosemide [Lasix] 40 mg PO DAILY 01/04/17 04/08/21 History Metoprolol Tartrate 100 mg PO BID 01/04/17 04/08/21 History Sertraline [Zoloft] 100 mg PO DAILY 01/04/17 04/08/21 History Omeprazole [PriLOSEC] 20 mg PO DAILY 02/09/20 04/08/21 History allopurinoL [Zyloprim] 100 mg PO DAILY 02/09/20 04/08/21 History Atorvastatin [Lipitor] 20 mg PO HS #30 tab 02/13/20 04/08/21 Rx Divalproex Sodium [Depakote] 500 mg PO BID 04/23/20 04/08/21 History Sertraline [Zoloft] 25 mg PO DAILY 04/23/20 04/08/21 History ARIPiprazole [Abilify] 10 mg PO HS 04/08/21 04/08/21 History Allergies Allergy/AdvReac Type Severity Reaction Status Date / Time No Known Allergies Allergy Verified 04/08/21 14:55 Physical Exam Vitals: Vital Signs Temp Pulse Resp BP Pulse Ox 04/11/21 19:40 98.4 F 71 15 99/62 99 04/11/21 14:35 97.9 F 66 20 109/69 100 04/11/21 14:00 78 19 04/11/21 11:24 122/81 04/11/21 09:36 88/52 04/11/21 08:00 78 19 04/11/21 07:00 98.2 F 78 19 105/71 100 04/11/21 02:00 98.4 F 79 16 120/83 94 L 04/11/21 01:00 14 Intake and Output 04/11/21 04/11/21 04/11/21 06:59 14:59 22:59 Intake Total 180 Output Total 700 400 550 Balance -700 -220 -550 Intake: Oral 180 Output: Urine 700 400 550 Other: Voiding Method Bedpan Bedpan Incontinent Incontinent External Catheter - Constitutional General appearance: cooperative, no acute distress, thin - EENT Eyes: anicteric sclerae, EOMI ENT: hearing grossly normal, normal oropharynx - Neck Neck: no lymphadenopathy - Respiratory Respiratory: bilateral: CTA - Cardiovascular Rhythm: regular Heart sounds: normal: S1, S2 Abnormal Heart Sounds: no systolic murmur, no diastolic murmur, no rub, no S3 Gallop, no S4 Gallop, no click, no other leg Peripheral Edema: bilateral: None - Gastrointestinal General gastrointestinal: no absent bowel sounds, no decreased bowel sounds, no distended, no hepatomegaly, no hyperactive bowel sounds, normal bowel sounds, no organomegaly, no rigid, no scaphoid, soft, no splenomegaly, no tenderness, no umbilical hernia, no ventral hernia - Integumentary Integumentary: normal - Neurologic LUE contracture - Musculoskeletal Musculoskeletal: generalized weakness - Psychiatric Psychiatric: A&O x's 3, appropriate affect, intact judgment & insight Results CBC & Chem 7: 04/11/21 05:16 04/11/21 05:16 Labs: Abnormal Lab Results - Last 24 Hours (Table) 04/11/21 04/11/21 Range/Units 05:16 05:16 RBC 3.85 L (4.10-5.20) X 10*6/uL Hgb 10.0 L (12.0-15.0) g/dL Hct 31.0 L (37.2-46.3) % MCH 26.0 L (27.0-32.0) pg RDW 18.0 H (11.5-14.5) % Plt Count 102 L (140-440) X 10*3/uL Absolute Nucleated RBC 0.02 H (0.00-0.00) X 10*3/uL Immature Gran # 0.08 H (0.00-0.04) X 10*3/uL Eosinophils # 0.83 H (0.04-0.35) X 10*3/uL NRBC/100 WBC Diff 0.2 H (0.0-0.0) /100 WBCS Chloride 118 H (98-107) mmol/L Carbon Dioxide 17 L (22-30) mmol/L BUN 35 H (7-17) mg/dL Creatinine 1.12 H (0.52-1.04) mg/dL Glucose 67 L (74-99) mg/dL Lipase 523 H (23-300) U/L Microbiology - Last 24 Hours (Table) 04/08/21 Unknown Urine Culture - Final Urine,Clean Catch Kaci albicans Escherichia coli Chest x-ray: report reviewed CT scan - abdomen: report reviewed CT scan - pelvis: report reviewed Assessment and Plan (1) Pancreatic mass Narrative/Plan: 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 Ca 19.9 ordered, pending results. It will be elevated 2/2 acute pancreatitis but, significant elevation will make malignancy more suspicious. Pt cannot have MRI, recommendation is for EUS for further clarification of CT findings on the pancreas with biopsy if suspicious. This will have to be orde red out pt at a [facility] facility. Will defer referral to GI. Current Visit: Yes Status: Acute Priority: High Code(s): K86.89 - OTHER SPECIFIED DISEASES OF PANCREAS SNOMED Code(s): 597044365 Plan: Attests:I have performed H&P, developed impression and plan of care, discussed with dictator. Agree with documentation, documented a s a scribe.
[2021-04-11] MEDS: ATORVASTATIN 20 MG TAB PO SCH (21:09)
[2021-04-11] MEDS: ARIPiprazole 10 MG TAB PO SCH (21:10)
--- NOTE | 2021-04-12 05:39 | PN ---
PROGRESS NOTE 60-year-old female, possible pancreatic mass with acute pancreatitis and elevated amylase lipase. She is sitting in bed eating chips tonight. She is not supposed to be eating. She is feeling better. PHYSICAL EXAMINATION: Temperature is 98.2, respiratory 16-18, pulse 60s to 70s, blood pressure is low 100s over 50s. Cardiovascular S1, S2. Lungs clear. GI soft. Hematology negative Homans. Psych fair mood and affect. BUN 35, creatinine 1.12. ASSESSMENT: 1. Pancreatic mass, acute on chronic pancreatitis. 2. CA-19-9 pending. Significant elevation in CA-19-9 will be making more suspicious for malignancy. Cannot have MRI due to EUS due to causing her brain from aneurysms, possible go to a tertiary facility for GI referral for biopsy of the pancreas. MMODL / IJN: [id number] /
[2021-04-12] MEDS: SODIUM CHLORIDE 0.9% 1,000 ML IV SCH ×2 (06:22→17:21)
[2021-04-12] MEDS: METOPROLOL TARTRATE 50 MG TAB PO SCH ×2 (08:29→19:30)
[2021-04-12] MEDS: SERTRALINE 100 MG TAB PO SCH (08:29)
[2021-04-12] MEDS: PANTOPRAZOLE 40 MG TABLET PO SCH (08:29)
[2021-04-12] MEDS: FUROSEMIDE 20 MG TAB PO SCH (08:29)
[2021-04-12] MEDS: ASPIRIN 81 MG PO SCH (08:29)
[2021-04-12] MEDS: allopurinoL 100 MG TAB PO SCH (08:29)
[2021-04-12] MEDS: DIVALPROEX 500 MG TABLET.DR PO SCH ×2 (08:30→19:29)
--- NOTE | 2021-04-12 11:27 | P.PN ---
Subjective Progress Note Date: 04/12/21 CHIEF COMPLAINT: Epigastric pain HISTORY OF PRESENT ILLNESS: Social service is following regards patient's epigastric pain and pancreatitis. Patient reports that her abdominal pain has resolved. She denies any nausea or vomiting. She is asking for more food. Patient evaluated by oncology service. Afebrile. WBC is 8.99 hemoglobin is 10 and platelets 102 sodium 145 potassium 4.2 creatinine 1.12 lipase went from 523- 553. CA-19-9 within normal range at 24.2 PHYSICAL EXAM: VITAL SIGNS: Reviewed. GENERAL: Well-developed in no acute distress. HEENT: No sclera icterus. Extraocular movements grossly intact. Moist buccal mucosa. Head is atraumatic, normocephalic. ABDOMEN: Soft. Nondistended. Nontender. NEUROLOGIC: Alert and oriented. Cranial nerves II through XII grossly intact. ASSESSMENT: 1. Acute on chronic pancreatitis with CAT scan findings stating that a gonzalez creatic tumor is not excluded. 2. Thrombocytopenia PLAN: -Patient can be discharged from surgical standpoint -No surgical intervention planned -Patient is not a candidate for MRCP or MRI of pancreas due to history of brain aneurysms with stents -Oncology recommendations appreciated -Recommend that patient follows up with GI service outpatient -Advance diet to full liquids -Continue IV fluids -Continue pain medication as needed Physician Assembler Movement note has been reviewed by physician. Signing provider agrees with the documented findings, assessment, and plan of care. Objective - Vital Signs Vital signs: Vital Signs Temp 98.2 F 04/12/21 08:00 Pulse 81 04/12/21 08:00 Resp 18 04/12/21 08:00 BP 122/78 04/12/21 08:00 Pulse Ox 98 04/12/21 08:00 Intake & Output 04/11/21 04/12/21 04/12/21 18:59 06:59 18:59 Intake Total 180 59 Output Total 950 400 Balance -770 -400 59 Intake: Oral 180 59 Output: Urine 950 400 Other: Voiding Method Bedpan Bedpan Bedpan Incontinent Incontinent Incontinent External Catheter External Catheter External Catheter - Labs CBC & Chem 7: 04/11/21 05:16 04/11/21 05:16 Labs: Abnormal Lab Results - Last 24 Hours (Table) 04/12/21 Range/Units 05:04 Lipase 553 H (23-300) U/L
[2021-04-12] MEDS: FLUCONAZOLE ORAL SUSP 1,400 MG/35 ML BOTTLE PO SCH (17:21)
--- NOTE | 2021-04-12 17:32 | PN ---
PROGRESS NOTE This patient is a 60-year-old -[place] female with epigastric pain and pancreatitis. Her abdominal pain is much better. No nausea, vomiting. She did not have an elevated CA-19-9. Her sodium is 145, potassium 4.2, creatinine 1.12. Lipase went from 523 to 553. Cardiovascular: S1-S2. Lungs clear. GI soft acute on chronic pancreatitis. CT scan showed possibly a pancreatic tumor not excluded, but the CA19-9 is negative. Oncology says she most likely does not have a pancreatic tumor if CA19-9 is normal. She has chronic thrombocytopenia. We are going to advance her diet. She is not a candidate for MRI or MRCP due to brain aneurysms with stents. Advance diet to full liquids. Could possibly discharge home. MMODL / IJN: [id number] /
--- NOTE | 2021-04-12 17:55 | P.PN ---
Subjective Progress Note Date: 04/12/21 Principal diagnosis: pancreatic mass Pt states feeling better today Objective - Vital Signs Vital signs: Vital Signs Temp 98 F 04/12/21 15:37 Pulse 81 04/12/21 15:37 Resp 18 04/12/21 08:00 BP 100/70 04/12/21 15:37 Pulse Ox 100 04/12/21 15:37 Intake & Output 04/11/21 04/12/21 04/12/21 18:59 06:59 18:59 Intake Total 180 59 Output Total 590 188 4432 Balance -770 -400 -1041 Weight 45.359 kg Intake: Oral 180 59 Output: Urine 416 020 7234 Other: Voiding Method Bedpan Bedpan Bedpan Incontinent Incontinent Incontinent External Catheter External Catheter External Catheter - Constitutional General appearance: Present: average body habitus, cooperative, no acute distress - EENT Eyes: Present: anicteric sclerae, EOMI ENT: Present: hearing grossly normal - Musculoskeletal Musculoskeletal: Present: left sided weakness - Psychiatric Psychiatric: Present: A&O x's 3, appropriate affect, intact judgment & insight - Labs CBC & Chem 7: 04/11/21 05:16 04/11/21 05:16 Labs: Abnormal Lab Results - Last 24 Hours (Table) 04/12/21 Range/Units 05:04 Lipase 553 H (23-300) U/L Assessment and Plan (1) Pancreatic mass Narrative/Plan: Discussed case with GI FRONT END DRIVER. We will schedule pt for EUS outpt. Will contact pt with that appt date and time Ca 19.9 24.2. Not elevated. Current Visit: Yes Status: Acute Priority: High Code(s): K86.89 - OTHER SPECIFIED DISEASES OF PANCREAS SNOMED Code(s): 369765661 Plan: Attests:I have performed H&P, developed impression and plan of care, discussed with dictator. Agree with documentation, documented a s a scribe.
--- NOTE | 2021-04-12 18:47 | XR ---
EXAMINATION TYPE: XR lumbar spine 2 or 3V DATE OF EXAM: 04/12/2021 COMPARISON: NONE HISTORY: Weakness TECHNIQUE: 3 views FINDINGS: There is osteopenia. Vertebra have normal alignment. There is L2 anterior wedging 25% that appears old. I see no acute fracture. Posterior elements are intact. Sacroiliac joints are intact. IMPRESSION: Significant osteopenia. No acute fracture seen.
--- NOTE | 2021-04-12 18:48 | XR ---
EXAMINATION TYPE: XR knee complete bilateral DATE OF EXAM: 04/12/2021 COMPARISON: NONE HISTORY: Weakness TECHNIQUE: 6 views FINDINGS: There is some spurring on the anterior right patella. There is evidence of old infarct in t he distal metaphysis of the right femur. I see no fracture nor dislocation. Joint spaces are fairly n ormal. There is some vascular calcification. There is no sign of joint effusion. IMPRESSION: No acute abnormality of the left and right knee. No evidence of any significant arthritic disease.
--- NOTE | 2021-04-12 19:09 | CT ---
EXAMINATION TYPE: CT brain wo con DATE OF EXAM: 04/12/2021 COMPARISON: 04/26/2016 HISTORY: Weakness of legs, hx stroke CT DLP: 1123 mGycm Automated exposure control for dose reduction was used. CT brain without contrast. There is cerebral cortical atrophy. There is large area of hypodensity involving the entire right tem poral lobe related to old middle cerebral artery infarct. There is no mass effect nor midline shift. There is no sign of intracranial hemorrhage. Calvarium is intact. There is metal artifact from surger y at the left middle cerebral artery. IMPRESSION: Cerebral atrophy. Old large right temporal lobe infarct. No acute intracranial abnormality. No change .
--- NOTE | 2021-04-12 19:11 | XR ---
EXAMINATION TYPE: XR Hip Bilateral Complete DATE OF EXAM: 04/12/2021 COMPARISON: 08/29/2016 HISTORY: Weakness TECHNIQUE: 4 views FINDINGS: The proximal femurs are intact. There is osteopenia. Hip joints are intact. The acetabula a ppear intact. I see no fracture. IMPRESSION: No fracture seen. There is osteopenia that appears progressed compared to old exam.
[2021-04-12] MEDS: ATORVASTATIN 20 MG TAB PO SCH (19:29)
[2021-04-12] MEDS: CIPROFLOXACIN HCL 500 MG TAB PO SCH (19:29)
[2021-04-12] MEDS: ARIPiprazole 10 MG TAB PO SCH (19:29)
[2021-04-13] MEDS: SODIUM CHLORIDE 0.9% 1,000 ML IV SCH ×2 (03:25→14:18)
[2021-04-13] MEDS: CIPROFLOXACIN HCL 500 MG TAB PO SCH ×2 (08:49→20:00)
[2021-04-13] MEDS: FUROSEMIDE 20 MG TAB PO SCH (08:50)
[2021-04-13] MEDS: PANTOPRAZOLE 40 MG TABLET PO SCH (08:50)
[2021-04-13] MEDS: METOPROLOL TARTRATE 50 MG TAB PO SCH ×2 (08:50→20:00)
[2021-04-13] MEDS: SERTRALINE 100 MG TAB PO SCH (08:50)
[2021-04-13] MEDS: allopurinoL 100 MG TAB PO SCH (08:50)
[2021-04-13] MEDS: DIVALPROEX 500 MG TABLET.DR PO SCH ×2 (08:50→20:00)
[2021-04-13] MEDS: ASPIRIN 81 MG PO SCH (08:50)
[2021-04-13] MEDS: FLUCONAZOLE ORAL SUSP 1,400 MG/35 ML BOTTLE PO SCH (08:51)
[2021-04-13] MEDS ORDERED: ACETAMINOPHEN TAB 325 MG TAB PO PRN (10:39)
[2021-04-13 11:41] LABS: Basophils # (A) 0.01 X 10*3/uL (0.00-0.10); Basophils % (A) 0.1 %; Eosinophils # (A) 0.31 X 10*3/uL (0.04-0.35); Eosinophils % (A) 4.1 %; HCT 26.8 % (37.2-46.3); HGB 8.5 g/dL (12.0-15.0); Lymphocytes # (A) 3.65 X 10*3/uL (0.90-5.00); Lymphocytes % (A) 47.8 %; MCH 25.1 pg (27.0-32.0); MCHC 31.7 g/dL (32.0-37.0); MCV 79.1 fL (80.0-97.0); Mean Platelet Volume 11.9 fL (9.5-12.2); Monocytes # (A) 0.97 X 10*3/uL (0.20-1.00); Monocytes % (A) 12.7 %; Neutrophils # (A) 2.64 X 10*3/uL (1.80-7.70); Neutrophils % (A) 34.6 %; Platelet Count 156 X 10*3/uL (140-440); RBC 3.39 X 10*6/uL (4.10-5.20); RDW 18.5 % (11.5-14.5); WBC 7.63 X 10*3/uL (4.50-10.00)
--- NOTE | 2021-04-13 11:44 | PN ---
PROGRESS NOTE HISTORY: A 60-year-old white female with pancreatitis. CA19-9 is normal. She thought she had a pancreatic tumor for pancreatitis. She will continue on current treatments. Diet will be advanced. We will check her lipase in the morning. Family does not want to take her home due to inability to ambulate, so we will have to get neurology workup for her legs to see why she cannot ambulate. PHYSICAL EXAM: Cardiovascular S1-S2. Lungs clear. GI soft. She is sucking on Doritos, she wants to start eating Doritos. ASSESSMENT: 1. Seizure history. 2. Acute on chronic pancreatitis. 3. Generalized weakness. PLAN: Please see further orders. Await Neurology consult. X-ray lumbar spine, knees, hips to try to find out why she is not ambulating. Please see further orders. MMODL / IJN: [id number] /
--- NOTE | 2021-04-13 11:51 | P.PN ---
Progress Note - Text Progress Note Date: 04/13/21 Patient remained stable. She has minimal abdominal pain. On exam vital signs are stable. Abdomen soft. Chronic peritonitis. Patient continue receive supportive care.
[2021-04-13 12:19] LABS: African American GFR (CKD) 69.9 (60.0-200.0); Albumin 2.7 g/dL (3.80-4.90); Albumin/Globulin Ratio 1.17 (1.60-3.17); Anion Gap 8.7 mmol/L (4.00-12.00); Calcium 7.6 mg/dL (8.7-10.3); Carbon Dioxide 17.3 mmol/L (21.6-31.8); Globulin 2.3 g/dL (1.6-3.3); Non-African American GFR(CKD) 60.3 (60.0-200.0); Potassium 3.5 mmol/L (3.5-5.5); Total Bilirubin 0.2 mg/dL (0.3-1.2)
--- NOTE | 2021-04-13 12:32 | P.CNNES ---
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 who neurology is consulted because unable to walk and that's progressive. Some of the history is obtained from medical record and her family member (son-in-law via phone). Per the patient son-in-law, the patient has been having generalized weakness for the last 1 year and a half and having difficulty walking and for that peroid. He stated that the patient had multiple urinary tract infection and he does say that she did recover fast and that she required physical therapy multiple times but he feels like the patient is having generalized weakness as well as difficulty walking as a result. No new focal weakness otherwise. The patient denies of any lower back pain. She has a stroke he thinks was about 18 years old with residual left-sided weakness predominantly left upper extremity. Patient does follow up with Dr. Olmedo for her neurological management as an outpatient. Patient home medication consist of Lipitor 20 g daily at bedtime, aspirin 81 mg, Depakote 500 mg 1 tablet twice a day, metoprolol, Abilify 10 mg daily at bedtime, Lasix, allopurinol, Zoloft her milligrams daily. Some of the workup in the hospital consisted of: Most recent vital signs is blood pressure 113/76, heart rate of 87, respiratory of 18, temperature of 99.0 Fahrenheit oral and pulse ox of 99% at room air. Prior to that the blood pressure was 98/65. During this hospital stay at patient also had few blood pressure of 86/61 Her white blood cell most recent is 8.9 thousand and on presentation is 8.6 which is within normal limits. Most recent hemoglobin was 10.0 and the MCV is on presentation was 79 which is low but currently 80.5 the. The platelet is is 102 which is low. Sodium is 145, potassium is 4.2, on initial presentation AST of 90 but most r ecent one is 56. ALT of 24. On initial presentation the creatinine is 1.69 and the most recent is 1.12 which is trending down. The glucose is 95 and the most recent one is 67. Amylase is recent is 327 which is elevated and lipase is also elevated of 553. Calcium is 8.7 Urine analysis seems suggestive of ureter tract infection Gomez virus PCR was not detected CT of the head is reported as cerebral atrophy. Old large right temporal lobe infarct. No acute intracranial abnormality. No change. I agree the patient has encephalomalacia predominantly over the right temporal region which is a lar ge size that extends somewhat to the right parietal but mostly the right temporal region. Acute on chronic pancreatitis with CT scan fiding stating patient has pancreatic tumor is not excluded. Surgery team is on board and oncology team. Review of Systems Review of system: The 12 point system was reviewed and apparent positive and negative per HPI. 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 gout, PANCREATITIS, pseudoseizures. 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 Past Anesthesia/Blood Transfusion Reactions: No Reported Reaction Additional Past Anesthesia/Blood Transfusion Reaction / Comment(s): PT HAS HAD BLOOD TRANSFUSIONS FOR ANEMIA-NO REACTION. Past Psychological History: Depression, Schizophrenia Additional Psychological History / Comment(s): paranoid schizophrenia Smoking Status: Unknown if ever smoked Past Alcohol Use History: None Reported Additional Past Alcohol Use History / Comment(s): STARTED SMOKING AT AGE 14, SMOKED 1PPD, QUIT >20 YEARS AGO BUT SMOKED AGAIN BRIEFLY WHEN AT [place] BUT QUIT 1.5 YERAS AGO Past Drug Use History: Cocaine Additional Drug Use History / Comment(s): No current use. Last used 15 yrs ago. - Past Family History Sister(s) Family Medical History: Myocardial Infarction (MD) Father Family Medical History: Cancer Additional Family Medical History / Comment(s): throat, lung, and rectal cancer Mother Family Medical History: Myocardial Infarction (MD) Additional Family Medical History / Comment(s): stroke Medications and Allergies Home Medications Medication Instructions Recorded Confirmed Type Aspirin EC [Ecotrin Low Dose] 81 mg PO DAILY 04/12/16 04/08/21 History Metoprolol Tartrate 100 mg PO BID 01/04/17 04/08/21 History Sertraline [Zoloft] 100 mg PO DAILY 01/04/17 04/08/21 History Omeprazole [PriLOSEC] 20 mg PO DAILY 02/09/20 04/08/21 History allopurinoL [Zyloprim] 100 mg PO DAILY 02/09/20 04/08/21 History Atorvastatin [Lipitor] 20 mg PO HS #30 tab 02/13/20 04/08/21 Rx Divalproex Sodium [Depakote] 500 mg PO BID 04/23/20 04/08/21 History ARIPiprazole [Abilify] 10 mg PO HS 04/08/21 04/08/21 History Ciprofloxacin HCl [Cipro] 500 mg PO BID 10 Days #20 tab 04/12/21 Rx Fluconazole Oral Susp [Diflucan 200 mg PO DAILY 5 Days #5 ml 04/12/21 Rx Oral Susp] Furosemide [Lasix] 20 mg PO DAILY 90 Days #90 tab 04/12/21 Rx Allergies Allergy/AdvReac Type Severity Reaction Status Date / Time No Known Allergies Allergy Verified 04/08/21 14:55 Physical Examination - Vital Signs Vital Signs: Vital Signs Temp Pulse Resp BP Pulse Ox 04/13/21 07:44 99.0 F 87 18 113/76 99 04/13/21 02:00 98.9 F 83 16 98/65 99 04/12/21 19:29 80 16 04/12/21 19:07 98.4 F 80 16 125/76 99 04/12/21 15:37 98 F 81 100/70 100 Intake and Output 04/12/21 04/13/21 04/13/21 22:59 06:59 14:59 Output Total 1300 500 Balance -1300 -500 Output: Urine 1300 500 Other: Voiding Method Bedpan Incontinent External Catheter # Voids 1 # Bowel Movements 0 GENERAL: The patient is lying in bed and is not in acute distress. CHEST: The heart rate is regular rate rhythm. No murmurs to auscultation. No carotid bruit bilaterally. LUNG: Clear to auscultation bilaterally no wheezing noted throughout. Not labored breathing. ABDOMEN/GI: Bowel sounds present in all 4 quadrants. No tenderness to palpation throughout. NEUROLOGICAL: Higher mental function: The patient is awake, alert, oriented to self and place. She is able to state month but not year. She stated it is her birthday this month. Patient is following commands. No aphasia and no neglect. Cranial nerves: The pupils are round, equal and reactive to light and accommodation. Visual campoverde are hard to assess but seems full throughout to confrontation throughout. Extraocular movement is intact no nystagmus is noted. Facial sensation is normal to touch throughout. The facial strength is normal throughout. Hearing is mildly to moderately decreased bilaterally to hand rub. Tongue is midline and moved [id number] without any difficulty. No dysarthria is noted. Shoulder shrug is normal bilaterally. Motor: Gait is deferred. The strength is left upper extremitiy is able to lift above gravity but has spasticity (old). Otherwise 5/5 throughout. Increase tone over the left upper extremity. Cerebellum: Normal finger to nose over right (has hard time over left because of old weakness). Sensation: Sensation is normal to touch throughout. Reflexes (right/left): 3+ over left upper. 1+ over lower but otherwise 2+ throughout. Plantars is upgoing over the left up mute over the right. Results - Laboratory Findings CBC and BMP: 04/13/21 07:22 04/13/21 07:22 Abnormal Lab Findings: Abnormal Labs 04/08/21 04/08/21 04/08/21 16:45 16:45 16:45 RBC Hgb Hct MCV 79.6 L MCH RDW 16.5 H Plt Count 102 L Plt Count Comment Absolute Nucleated RBC Immature Gran # Monocytes # Eosinophils # NRBC/100 WBC Diff APTT Chloride Carbon Dioxide 14 L BUN 81 H Creatinine 1.69 H Glucose AST 90 H Albumin Amylase 311 H* Lipase 970 H Urine Ketones Ur Leukocyte Esterase Urine WBC Urine Yeast (Budding) 04/08/21 04/08/21 04/09/21 17:13 Unknown 05:27 RBC Hgb 10.5 L Hct 32.8 L MCV 76.6 L MCH 24.5 L RDW 17.2 H Plt Count 107 L Plt Count Comment DECREASED A Absolute Nucleated RBC 0.02 H Immature Gran # 0.05 H Monocytes # 1.23 H Eosinophils # 0.46 H NRBC/100 WBC Diff 0.2 H APTT 20.8 L Chloride Carbon Dioxide BUN Creatinine Glucose AST Albumin Amylase Lipase Urine Ketones Trace H Ur Leukocyte Esterase Moderate H Urine WBC 12 H Urine Yeast (Budding) Occasional H 04/09/21 04/10/21 04/10/21 05:27 05:40 05:40 RBC 4.00 L Hgb 10.4 L Hct 31.7 L MCV 79.3 L MCH 26.0 L RDW 17.4 H Plt Count 137 L Plt Count Comment Absolute Nucleated RBC 0.02 H Immature Gran # 0.07 H Monocytes # 1.16 H Eosinophils # 0.82 H NRBC/100 WBC Diff 0.2 H APTT Chloride 111 H 116 H Carbon Dioxide 18 L BUN 73 H 53 H Creatinine 1.44 H 1.32 H Glucose 111 H AST 73 H 56 H Albumin 3.1 L Amylase 327 H* Lipase 889 H 1079 H Urine Ketones Ur Leukocyte Esterase Urine WBC Urine Yeast (Budding) 04/11/21 04/11/21 04/12/21 05:16 05:16 05:04 RBC 3.85 L Hgb 10.0 L Hct 31.0 L MCV MCH 26.0 L RDW 18.0 H Plt Count 102 L Plt Count Comment Absolute Nucleated RBC 0.02 H Immature Gran # 0.08 H Monocytes # Eosinophils # 0.83 H NRBC/100 WBC Diff 0.2 H APTT Chloride 118 H Carbon Dioxide 17 L BUN 35 H Creatinine 1.12 H Glucose 67 L AST Albumin Amylase Lipase 523 H 553 H Urine Ketones Ur Leukocyte Esterase Urine WBC Urine Yeast (Budding) Assessment and Plan Assessment: * Generalized weakness for the past 1 1/2 years. I feel the patient has metabolic abnormality (hypoglycemia, episodes of hypotension, Acute on chronic kidney insufficiency) and her history of multiple UTIs can give Generalized weakness. Not sure if her acute on chronic pancreatitis and no exclusion of mass causing her progressive weakness. She denies of lower back pain. * Acute on chronic pancreatitis with CT scan fiding stating patient has pancreatic tumor is not excluded * Old right MCA with residual left-sided weakness * History of brain aneurysm status post coil stents * History of seizure * Hypertension episodes of hypotension during this admission * Acute on chronic kidney insufficiency with a creatinine now trending down the. * Episode of hypoglycemia as well as 67 currently * Hyperlipidemia Plan: I ordered vitamin B12, folate, TSH level. Please avoid any hypoglycemic or hypotensive episodes and we'll defer the management to the primary team. The patient does not have any acute ischemia on current CT brain. Continue neuro checks PT and OT are consulted We'll defer the rest of the medical management to oncology team and surgery team. We'll defer the rest of medical management also to the primary team. Upon discharge the patient needs to follow-up with a neurologist as an outpatien t within 2 weeks (per her family members he would like her to see a second opinoin than her normal Neurologist (She see Dr. Olmedo and I would recommend consideration of Dr. Koch). The plan was discussed with the patient's son-in-law via patient's phone. Thank you for the consultation. Tino Gray M.D. Neurologist was Time with Patient: Greater than 30
[2021-04-13] MEDS: ARIPiprazole 10 MG TAB PO SCH (20:00)
[2021-04-13] MEDS: ATORVASTATIN 20 MG TAB PO SCH (20:00)
[2021-04-14] MEDS: SODIUM CHLORIDE 0.9% 1,000 ML IV SCH ×2 (00:56→07:59)
[2021-04-14 07:49] VITALS: RESP 18
[2021-04-14] MEDS: METOPROLOL TARTRATE 50 MG TAB PO SCH (07:57)
[2021-04-14] MEDS: FUROSEMIDE 20 MG TAB PO SCH (07:57)
[2021-04-14] MEDS: SERTRALINE 100 MG TAB PO SCH (07:57)
[2021-04-14] MEDS: DIVALPROEX 500 MG TABLET.DR PO SCH (07:58)
[2021-04-14] MEDS: allopurinoL 100 MG TAB PO SCH (07:58)
[2021-04-14] MEDS: PANTOPRAZOLE 40 MG TABLET PO SCH (07:58)
[2021-04-14] MEDS: ASPIRIN 81 MG PO SCH (07:58)
[2021-04-14] MEDS: CIPROFLOXACIN HCL 500 MG TAB PO SCH (07:58)
[2021-04-14] MEDS: FLUCONAZOLE ORAL SUSP 1,400 MG/35 ML BOTTLE PO SCH (07:59)
--- NOTE | 2021-04-14 12:08 | P.PN ---
Progress Note - Text Progress Note Date: 04/14/21 Patient remained stable. She denies a significant abdominal pain. On exam her lesser stable evidence soft. History of chronic hepatitis. Patient will be managed medically.
[2021-04-14 12:23] LABS: African American GFR (CKD) 62.3 (60.0-200.0); Albumin/Globulin Ratio 1.11 (1.60-3.17); Anion Gap 8.7 mmol/L (4.00-12.00); BUN/Creat Ratio 13.64 Ratio (12.00-20.00); Calcium 8.1 mg/dL (8.7-10.3); Carbon Dioxide 20.3 mmol/L (21.6-31.8); Globulin 2.7 g/dL (1.6-3.3); Non-African American GFR(CKD) 53.8 (60.0-200.0); Potassium 3.9 mmol/L (3.5-5.5); Total Bilirubin 0.2 mg/dL (0.2-1.2); Total Protein 5.7 g/dL (6.2-8.2)
[2021-04-14 12:42] LABS: Basophils # (A) 0.02 X 10*3/uL (0.00-0.10); Basophils % (A) 0.3 %; Eosinophils # (A) 0.33 X 10*3/uL (0.04-0.35); Eosinophils % (A) 4.3 %; HGB 9.1 g/dL (12.0-15.0); Lymphocytes # (A) 3.57 X 10*3/uL (0.90-5.00); Lymphocytes % (A) 46.8 %; MCHC 32.5 g/dL (32.0-37.0); MCV 76.9 fL (80.0-97.0); Mean Platelet Volume 12.6 fL (9.5-12.2); Monocytes # (A) 1.02 X 10*3/uL (0.20-1.00); Monocytes % (A) 13.4 %; Neutrophils # (A) 2.65 X 10*3/uL (1.80-7.70); Neutrophils % (A) 34.7 %; Platelet Count 170 X 10*3/uL (140-440); RBC 3.64 X 10*6/uL (4.10-5.20); RDW 18.6 % (11.5-14.5); WBC 7.63 X 10*3/uL (4.50-10.00)
--- NOTE | 2021-04-14 13:57 | P.PN ---
Subjective Progress Note Date: 04/14/21 The patient is seen at bedside and she feels she is doing well. Denies of any new neurological problems. Objective - Vital Signs Vital signs: Vital Signs Temp 98.3 F 04/14/21 07:49 Pulse 77 04/14/21 08:00 Resp 18 04/14/21 08:00 BP 102/70 04/14/21 07:49 Pulse Ox 99 04/14/21 07:49 Intake & Output 04/13/21 04/14/21 04/14/21 18:59 06:59 18:59 Intake Total 580 1100 300 Output Total 2100 750 Balance -1520 350 300 Intake: Intake, IV Titration 1100 Amount Sodium Chloride 0.9% 1, 1100 000 ml @ 100 mls/hr IV . Q10H [facility] Rx#:[id number] Oral 580 300 Output: Urine 2100 750 Other: Voiding Method Bedpan Bedpan Incontinent Incontinent External Catheter External Catheter # Bowel Movements 0 - Exam GENERAL: The patient is lying in bed and is not in acute distress. NEUROLOGICAL: Higher mental function: The patient is awake, alert, oriented to self and place. She is able to state month but not year. She stated it is her birthday this month. Patient is following commands. No aphasia and no neglect. Cranial nerves: The pupils are round, equal and reactive to light and accommodation. Visual campoverde are hard to assess but seems full throughout to confrontation throughout. Extraocular movement is intact no nystagmus is noted. Facial sensation is normal to touch throughout. The facial strength is normal throughout. Hearing is mildly to moderately decreased bilaterally to hand rub. Tongue is midline and moved [id number] without any difficulty. No dysarthria is noted. Shoulder shrug is normal bilaterally. Motor: Gait is deferred. The strength is left upper extremitiy is able to lift above gravity but has spasticity (old). Otherwise 5/5 throughout. Increase tone over the left upper extremity. Cerebellum: Normal finger to nose over right (has hard time over left because of old weakness). Sensation: Sensation is normal to touch throughout. Reflexes (right/left): 3+ over left upper. 1+ over lower but otherwise 2+ throughout. Plantars is upgoing over the left up mute over the right. WORK-UP: Amylase is recent is 327 which is elevated and lipase is also elevated of 553. Calcium is 8.7 Urine analysis seems suggestive of ureter tract infection Gomez virus PCR was not detected CT of the head is reported as cerebral atrophy. Old large right temporal lobe infarct. No acute intracranial abnormality. No change. I agree the patient has encephalomalacia predominantly over the right temporal region which is a large size that extends somewhat to the right parietal but mostly the right temporal region. Vitamin B12: 1002 (normal) Acute on chronic pancreatitis with CT scan fiding stating patient has pancreatic tumor is not excluded. Surgery team is on board and oncology team. - Labs CBC & Chem 7: 04/14/21 07:06 04/14/21 07:06 Labs: Abnormal Lab Results - Last 24 Hours (Table) 04/13/21 04/14/21 04/14/21 Range/Units 07:22 07:06 07:06 RBC 3.64 L (4.10-5.20) X 10*6/uL Hgb 9.1 L (12.0-15.0) g/dL Hct 28.0 L (37.2-46.3) % MCV 76.9 L (80.0-97.0) fL MCH 25.0 L (27.0-32.0) pg RDW 18.6 H (11.5-14.5) % MPV 12.6 H (9.5-12.2) fL Monocytes # 1.02 H (0.20-1.00) X 10*3/uL Sodium 146 H (135-145) mmol/L Chloride 117 H (96-109) mmol/L Carbon Dioxide 20.3 L (21.6-31.8) mmol/L Est GFR (CKD-EPI)NonAf 53.8 L (60.0-200.0) Calcium 8.1 L (8.7-10.3) mg/dL Total Protein 5.7 L (6.2-8.2) g/dL Albumin 3.00 L (3.80-4.90) g/dL Albumin/Globulin Ratio 1.11 L (1.60-3.17) g/dL Lipase 289 H (14-63) U/L Vitamin B12 1002.0 H (200.0-944.0) pg/mL Assessment and Plan Assessment: * Generalized weakness for the past 1 1/2 years. I feel the patient had history of multiple UTIs can give Generalized weakness as well metabolic abnormality (hypoglycemia, episodes of hypotension, Acute on chronic kidney insufficiency). Not sure if her acute on chronic pancreatitis and no exclusion of mass causing her progressive weakness. She denies of lower back pain. Rule out other etiologies. * Acute on chronic pancreatitis with CT scan fiding stating patient has pancreatic tumor is not excluded * Old right MCA with residual left-sided weakness * History of brain aneurysm status post coil stents * History of seizure * Hypertension episodes of hypotension during this admission * Acute on chronic kidney insufficiency with a creatinine now trending down the. * Episode of hypoglycemia as well as 67 currently * Hyperlipidemia Plan: Pending folate, TSH level. If TSH is abnormal will defer management to primary team. If folate level is deficient or low then recommend folic replacement 1mg daily. Please avoid any hypoglycemic or hypotensive episodes and we'll defer the management to the primary team. The patient does not have any acute ischemia on current CT brain. Continue neuro checks PT and OT are consulted We'll defer the rest of the medical management to oncology team and surgery team. We'll defer the rest of medical management also to the primary team. Upon discharge the patient needs to follow-up with a neurologist as an outpatient within 2 weeks (per her family members he would like her to see a second opinion rather than her normal Neurologist (She see Dr. Olmedo and I would recommend consideration of Dr. Koch). Possible consider EMG with NCS of lowers as outpatient. The plan was discussed with the patient's son-in-law via patient's phone and her nurse. There is no further neurological work-up. Tino Gray M.D. Neurologist was Time with Patient: Less than 30
[2021-04-14 14:04] VITALS: BP 115/71; PULSE 75; TEMP 98.2
--- NOTE | 2021-04-16 09:34 | CDI ---
Documentation Clarification Form Date: 04/11/2021 12:40:00 PM From: Kirsty Flores RN CCDS Admit Date: 04/10/2021 10:58:00 AM Patient Name: Jeane Urbano Visit Number: [id number] Discharge Date: 04/14/2021 03:51:00 PM ATTENTION: The Clinical Documentation Specialists (CDI) and [facility] Coding Staff appreciate your assistance in clarifying documentation. Please respond to the clarification below the line at the bottom and electronically sign. The [facility] Coding staff will review the response and follow-up if needed. Please note: Queries are made part of the Legal Health Record. If you have any questions, please contact the author of this message via ITS. ATTENTION: The Clinical Documentation Specialists (CDI) and [facility] Coding Staff appreciate your assistance in clarifying documentation. Please respond to the clarification below the line at the bottom and electronically sign. The [facility] Coding staff will review the response and follow-up if needed. Please note: Queries are made part of the Legal Health Record. If you have any questions, please contact the author of this message via ITS. Dr. Mohit Harley Prerenal renal insufficiency is documented in the H&P. Additional clarification regarding if a possible clinical diagnosis is appropriate for the documented sign and symptom. History/Risk Factors: Acute on Chronic Pancreatitis, Dehydration, UTI, CVA with Left Arm Weakness, Gallstones, Aneurysm Coils in Brain Clinical Indicators: Patients baseline/prior BUN/CR/GFR: 58/1.7/31.8 Current BUN: 81/73/53/35 Cr: 1.69/1.44/1.32/1.12 GFR:32/39/43/53 Transplant status, Hemodialysis status 04/09 H&P: "Prerenal renal insufficiency." Treatment: 04/10-04/11 Lasix 40 mg Po QD Lasix 20mg Po Daily 04/09-04/11 Lopressor 100 mg PO BID 04/11 Lopressor 50 mg PO BID 0.9% NS @ 100 cc/hr. Please clarify the renal insufficiency, if known: [ ] Acute Renal Failure (specify cause if known) [ ] Chronic renal failure (specify stage if known) [ ] CKD Stage 3 (GFR 30-59) [ ] CKD Stage 3a (GFR 45-59) [ ] CKD Stage 3b (GFR 30-44) [ ] Acute on Chronic Renal Failure [ ] CKD Stage 3 (GFR 30-59) [ ] CKD Stage 3a (GFR 45-59) [ ] CKD Stage 3b (GFR 30-44) [ ] Other, please specify [ ] Unable to determine (Template Last Revised: September 2020) MTDD
--- NOTE | 2021-04-17 05:21 | PN ---
PROGRESS NOTE ADDENDUM: Please add chronic kidney disease stage 3A. MMODL / IJN: [id number] /
== END 2021-04-14 15:51 | disposition home or self-care (01) | DRG 439 ==
LOC: EC 12:21 → 6NMEDSUR 18:50 → OBSVTOIN 04-10 10:58
PROVIDERS: ADMIT Family Medicine; ATTEND Family Medicine
PROC: 02HV33Z Insertion of Infusion Device into Superior Vena Cava, Percutaneous Approach (ICD-10-PCS; principal; 2021-04-10)
DX: K85.90 Acute pancreatitis without necrosis or infection, unspecified (principal); F20.0 Paranoid schizophrenia; D69.6 Thrombocytopenia, unspecified; G93.89 Other specified disorders of brain; K73.9 Chronic hepatitis, unspecified; R56.9 Unspecified convulsions; I69.354 Hemiplegia and hemiparesis following cerebral infarction affecting left non-dominant side; K86.1 Other chronic pancreatitis; F32.9 Major depressive disorder, single episode, unspecified; K80.20 Calculus of gallbladder without cholecystitis without obstruction; K29.70 Gastritis, unspecified, without bleeding; M10.9 Gout, unspecified; Z87.891 Personal history of nicotine dependence; Z87.440 Personal history of urinary (tract) infections; Z87.11 Personal history of peptic ulcer disease; Z82.49 Family history of ischemic heart disease and other diseases of the circulatory system; Z82.3 Family history of stroke; Z80.0 Family history of malignant neoplasm of digestive organs; Z79.899 Other long term (current) drug therapy; Z79.82 Long term (current) use of aspirin; E78.5 Hyperlipidemia, unspecified; I12.9 Hypertensive chronic kidney disease with stage 1 through stage 4 chronic kidney disease, or unspecified chronic kidney disease; E86.0 Dehydration; E16.2 Hypoglycemia, unspecified; N18.31 Chronic kidney disease, stage 3a
CPT/HCPCS: 36415; 36556; 70450; 71046; 72100; 73521; 74176; 80048; 80053; 81001; 82150; 82607; 82746; 83605; 83690; 84443; 84484; 85025; 85610; 85730; 86301; 87077; 87086; 87186; 87635; 93005; 96374; 99285

== ENCOUNTER → 2021-06-18 | Outpatient (CLI) | payer OTHER ==
[2021-06-19 00:08] LABS: Basophils # (A) 0.01 X 10*3/uL (0.00-0.10); Basophils % (A) 0.2 %; Eosinophils # (A) 0.17 X 10*3/uL (0.04-0.35); Eosinophils % (A) 3.5 %; HCT 29.9 % (37.2-46.3); HGB 9.4 g/dL (12.0-15.0); Lymphocytes # (A) 2.61 X 10*3/uL (0.90-5.00); MCH 25.2 pg (27.0-32.0); MCHC 31.4 g/dL (32.0-37.0); MCV 80.2 fL (80.0-97.0); Monocytes # (A) 0.41 X 10*3/uL (0.20-1.00); Monocytes % (A) 8.3 %; Neutrophils % (A) 34.6 %; Platelet Count 165 X 10*3/uL (140-440); RBC 3.73 X 10*6/uL (4.10-5.20); RDW 21.2 % (11.5-14.5); Reticulocyte % 1.56 % (0.10-1.80); WBC 4.92 X 10*3/uL (4.50-10.00)
[2021-06-19 00:09] LABS: Acanthocytes 2+; Anisocytosis (M) 2+; Schistocytes 1+; Toxic Vacuolation 2+
[2021-06-19 04:10] LABS: % Iron Saturation 27.62 (12.00-45.00); African American GFR (CKD) 49.6 (60.0-200.0); Albumin 3.8 g/dL (3.8-4.9); Albumin/Globulin Ratio 1.29 (1.60-3.17); Anion Gap 18.5 mmol/L (10.00-18.00); BUN/Creat Ratio 15.23 Ratio (12.00-20.00); Blood Urea Nitrogen 20.1 mg/dL (9.0-27.0); Carbon Dioxide 15.4 mmol/L (20.0-27.5); Globulin 2.9 g/dL (1.6-3.3); Non-African American GFR(CKD) 42.8 (60.0-200.0); Potassium 4.6 mmol/L (3.5-5.5); T4, Free (Free Thyroxine) 0.76 ng/dL (0.800-1.800); Total Bilirubin 0.3 mg/dL (0.30-1.20); Total Protein 6.7 g/dL (6.2-8.2)
--- NOTE | 2021-06-19 10:15 | XR ---
EXAMINATION TYPE: XR cervical spine 5 views comp, XR sacroiliac joint comp 3 views BILAT, XR Hip Bilateral 2 views Complete, XR lumbosacral spine 5 views DATE OF EXAM: 06/18/2021 COMPARISON: Correlation abdomen pelvis CT 02/05/2020 HISTORY: 61-year-old female M54.2, M54.5, M25.11, M25.552, M53.3 FINDINGS: CERVICAL SPINE: Scattered uncovertebral joint and facet arthropathy. This results in very mild bony neuroforaminal na rrowing on both sides. More moderate on the right at C5-C6 and C6-C7. The odontoid view shows some oswaldo cency along the medial aspect of the left lateral mass but otherwise normal appearance. Degenerative change at the C1 dens articulation. No prevertebral soft tissue swelling. Osteopenia. Alignment down to the C6 level is maintained. C6-C7 and below is obscured by the patient's shoulders and not assesse d. Old healed fracture deformity mid left clavicular shaft. LUMBAR SPINE: 5 lumbar type vertebral bodies. Hypertrophic facet arthropathy lower lumbar spine. No pars interartic ularis defect. Mild anterior wedging L2 secondary to superior endplate deformity. This is unchanged f rom an prior 02/05/2020 CT scan. Alignment is maintained. Atelectatic calcifications abdominal aorta. SI JOINTS: Mild degenerative spurring at the bilateral SI joints. No subarticular erosions. Extensive vascular c alcifications and phleboliths in the pelvis. Osteopenia. Smooth delineation to the arcuate lines of t he sacrum. BILATERAL HIPS: Mild axial joint space narrowing on both sides. There is osteopenia. Vascular calcifications. No acut e fracture, subluxation, or dislocation. IMPRESSION: Cervical spine: 1. Multilevel facet and uncovertebral joint arthropathy. The C6/C7 level and below is obscured by the patient's shoulders and not assessed. Remaining alignment is maintained. 2. Variable mild bony neuroforaminal narrowing on both sides, more moderate on the right at C5-C6 and C6-C7. 3. Some lucency involving the medial aspect of the C1 left lateral mass. This may represent projectio nal artifact or sequela of a prior injury but no clear correlate is seen on the CT head of 04/12/2021. [address] CT to further evaluate if clinically indicated. 4. Lumbar spine: Hypertrophic facet arthropathy mid to lower lumbar spine. No malalignment. Stable an terior wedge deformity of L2 back to at least 02/05/2020 secondary to chronic superior endplate injury . 5. SI joints: Mild degenerative change. Otherwise, no acute osseous antibody seen. 6. Bilateral hips: Only mild degenerative joint space narrowing. Osteopenia. No displaced fracture se en.
== END | disposition home or self-care (01) ==
LOC: LABWHC1 14:59
PROVIDERS: ATTEND Psychiatry & Neurology Pain Medicine
DX: M47.892 Other spondylosis, cervical region (principal); M47.896 Other spondylosis, lumbar region; M19.90 Unspecified osteoarthritis, unspecified site; M16.0 Bilateral primary osteoarthritis of hip; M85.852 Other specified disorders of bone density and structure, left thigh; M85.851 Other specified disorders of bone density and structure, right thigh; M25.119 Fistula, unspecified shoulder; M53.3 Sacrococcygeal disorders, not elsewhere classified
CPT/HCPCS: 36415; 72050; 72110; 72202; 73521; 80053; 82607; 82728; 82746; 83540; 83550; 84207; 84439; 84443; 84466; 84481; 85025; 85045

== ENCOUNTER → 2021-07-05 | Outpatient (CLI) | payer OTHER ==
--- NOTE | 2021-07-05 07:59 | CT ---
EXAMINATION TYPE: CT lumbar spine wo con DATE OF EXAM: 07/05/2021 7:39 AM COMPARISON: None HISTORY: Low back pain CT DLP: 333.5 mGycm Automated exposure control for dose reduction was used. Unenhanced CT of the lumbar spine was performed. Bone and soft tissue window settings are submitted as well as coronal and sagittal reconstructions. L1-L2: Normal disc space height. No disc herniation protrusion or central stenosis. No facet joint arthropathy. No evidence for foraminal encroachment. L2-L3: Loss of height superior endplate of L2 of uncertain age and/or etiology although appears chron ic in nature. Loss of height is estimated at approximately 40%. Normal disc space height. No disc he rniation protrusion or central stenosis. No facet joint arthropathy. No evidence for foraminal encr oachment. L3-L4: Mild degenerative disc space narrowing with mild posterior disc bulge. No disc herniation or p rotrusion. No central stenosis. Foramina are patent bilaterally. L4-L5: Mild degenerative disc space narrowing with mild to moderate posterior disc bulge. No disc her niation or protrusion. No central stenosis. Bilateral lateral stenosis appreciated. Foramina are branch nt bilaterally. L5-S1: Mild degenerative disc space narrowing with mild posterior disc bulge. No disc herniation or p rotrusion. No central stenosis. Foramina are patent bilaterally. IMPRESSION: 1. Mild degenerative disc disease and disc bulging as noted. Bilateral lateral recess stenosis at L4- 5. 2. Loss of height superior endplate of L2 likely chronic in nature. See above.
--- NOTE | 2021-07-05 08:11 | CT ---
EXAMINATION TYPE: CT cervical spine wo con DATE OF EXAM: 07/05/2021 COMPARISON: M54.5 low back pain M54.2 cervicalgia HISTORY: Cervicalgia CT DLP: 269.[address] of the cervical spine was performed with bone and soft tissue window settings submitted . Coronal and sagittal reconstruction is obtained. There is normal alignment and prevertebral soft tissues. I do not see evidence for fracture or subluxation. C2-3, C3-4 and C4-5 are within normal limits. Moderate to severe narrowing at C5-6. Posterior disc bulge with partial encapsulating spur results in mild disc endplate complex. No evidence for central stenosis or disc herniation. Degenerative change of the cervical apophyseal joints resulting in mild right foraminal encroachment at this level. C6-7: Moderate degenerative narrowing. Minimal posterior disc bulge. No disc herniation protrusion or central stenosis. Foramina are patent. Ventral spondylosis. C7-T1: Within normal limits IMPRESSION: Guarded changes as discussed
== END | disposition home or self-care (01) ==
LOC: RADCTMAIN 06:48
PROVIDERS: ATTEND Psychiatry & Neurology Neurology
DX: M50.223 Other cervical disc displacement at C6-C7 level (principal); M50.323 Other cervical disc degeneration at C6-C7 level; M47.812 Spondylosis without myelopathy or radiculopathy, cervical region; M51.27 Other intervertebral disc displacement, lumbosacral region; M51.37 Other intervertebral disc degeneration, lumbosacral region; M48.061 Spinal stenosis, lumbar region without neurogenic claudication
CPT/HCPCS: 72125; 72131

== ENCOUNTER 2021-07-25 17:37 | Inpatient (IN) | payer OTHER ==
[2021-07-25] MEDS ORDERED: SODIUM CHLORIDE 0.9% 1,000 ML IV STA ×2 (18:04→23:13)
--- NOTE | 2021-07-25 19:19 | XR ---
EXAMINATION TYPE: XR chest 2V DATE OF EXAM: 07/25/2021 COMPARISON: 04/08/2021 HISTORY: 61-year-old female confusion, altered mental status TECHNIQUE: AP and lateral views FINDINGS: Low lung volumes with crowded vascular markings. Heart upper limits of normal in size. Patchy lower l obe opacities. Some of the densities have strandy configuration. Upper lungs are clear. No sizable ef fusion. IMPRESSION: Hypoventilatory changes. There are prominent patchy lower lobe opacities some of which represent atel ectasis. Correlate to exclude atypical/COVID pneumonia or aspiration.
--- NOTE | 2021-07-25 19:20 | CT ---
EXAMINATION TYPE: CT brain wo con DATE OF EXAM: 07/25/2021 COMPARISON: 04/12/2021 HISTORY: Altered mental status TECHNIQUE: CT scan of the head performed without contrast Automated exposure control for dose reduction was used. FINDINGS: No acute intracranial hemorrhage, midline shift or mass effect. 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 Otherwise vanessa-white matter differentiation is preserved. Prominent CSF spaces and ventricles with right lateral ventricle posterior horn ex vacuo dilatation s table, mild brain volume loss. Patchy low-attenuation in the periventricular region and deep white ma tter similar to prior study. Left MCA region clip and stent again seen. No acute orbital, osseous or soft tissue abnormalities seen. Atherosclerotic calcifications seen in the intracranial internal carotid arteries and bilateral verte bral arteries. No air-fluid levels seen in the paranasal sinuses or mastoid air cells. IMPRESSION: No acute intracranial abnormality. No significant change in chronic changes seen on prior study. See body of report for detail.
[2021-07-25 19:31] LABS: Anisocytosis Slight; HCT 35.2 % (34.0-46.0); HGB 10.8 gm/dL (11.4-16.0); Hypochromasia Moderate; MCH 26.1 pg (25.0-35.0); MCHC 30.8 g/dL (31.0-37.0); MCV 84.7 fL (80.0-100.0); Mean Platelet Volume 7.3; RBC 4.15 m/uL (3.80-5.40); RDW 18.9 % (11.5-15.5); WBC 6.1 k/uL (3.8-10.6)
[2021-07-25 19:35] LABS: Appearance,Urine Clear (Clear); Bilirubin,Urine Negative (Negative); Blood,Urine Negative (Negative); Color,Urine Yellow; Glucose,Urine (UA) Negative (Negative); Ketones,Urine Trace (Negative); Leukocyte Esterase,Urine Negative (Negative); Nitrite,Urine Negative (Negative); PH, Urine 5.5 (5.0-8.0); Protein,Urine Trace (Negative); Specific Gravity,Urine 1.016 (1.001-1.035)
[2021-07-25 19:37] LABS: Lactic Acid, Venous 1.2 mmol/L (0.7-2.0)
[2021-07-25 19:45] LABS: Albumin 3.8 g/dL (3.5-5.0); Calcium 9.4 mg/dL (8.4-10.2); Potassium 4.4 mmol/L (3.5-5.1); Total Bilirubin 0.6 mg/dL (0.2-1.3); Total Protein 7.5 g/dL (6.3-8.2)
[2021-07-25 19:47] LABS: Amphetamine Screen,Urine Not Detected (NotDetected); Barbiturate Screen,Urine Not Detected (NotDetected); Benzodiazepines Screen,Urine Not Detected (NotDetected); Cocaine Screen,Urine Not Detected (NotDetected); Methadone Screen, Urine Not Detected (NotDetected); Opiate Screen,Urine Detected (NotDetected); Oxycodone Screen, Urine Not Detected (NotDetected); Phencyclidine Screen,Urine Not Detected (NotDetected); Tricyclic Antidepressant,Urine Not Detected (NotDetected); Urn Cannabinoid Scrn Not Detected (NotDetected)
[2021-07-25 19:48] LABS: Prothrombin Time 10.7 sec (9.0-12.0)
[2021-07-25 19:49] LABS: Partial Thromboplastin Time 19.1 sec (22.0-30.0)
[2021-07-25 19:50] LABS: Valproic Acid (Depakene) 107.8 ug/mL
--- NOTE | 2021-07-25 19:50 | XR ---
EXAMINATION TYPE: XR hand complete RT, XR forearm RT DATE OF EXAM: 07/25/2021 COMPARISON: NONE HISTORY: 61 years Female. STUDY INDICATION GIVEN: edema . TECHNIQUE: 3 radiographs of the right forearm. 4 Radiographs of the right hand. IMPRESSION: Mild generalized osteopenia. Normal elbow joint alignment. No elbow joint effusion or fracture. Acutely intact radius and ulna. Minimal radiocarpal joints and normal proximal and distal radioulnar joints. Slight irregularity of the distal pole of the scaphoid bone, may be anatomic variant or projectional, correlation with point tenderness for acute nondisplaced fracture. Carpal metacarpal joints are maintained. Dorsal subluxation of the proximal fifth digit interphalangeal joint. Osteoarthrosis of the hand.
[2021-07-25 19:58] LABS: Glucose,Whole Blood 47 mg/dL (75-99)
[2021-07-25] MEDS ORDERED: DEXTROSE 50% SYRINGE 50 ML IVP STA (20:04)
[2021-07-25 20:05] LABS: Platelet Count 84 k/uL (150-450)
[2021-07-25 20:07] LABS: Lymphocytes # (M) 2.81 k/uL (1.0-4.8); Monocytes # (M) 0.43 k/uL (0-1.0); Neutrophils # (M) 2.87 k/uL (1.3-7.7); Neutrophils % (M) 47 %; Nucleated Red Blood Cells 0 /100 WBC (0-0); Poikilocytosis (M) Present; RBC Fragments Present; Target Cells Present; Total Cells Counted 100
[2021-07-25] MEDS ORDERED: NALOXONE 0.4 MG/ML 1 ML VIAL IV PRN (20:27)
[2021-07-25 20:43] LABS: Glucose,Whole Blood 124 mg/dL (75-99)
--- NOTE | 2021-07-25 20:49 | ED ---
General Adult HPI - General Chief complaint: Weakness Stated complaint: Altered mental status Time Seen by Provider: 07/25/21 18:02 Source: EMS, RN notes reviewed, old records reviewed Mode of arrival: EMS Limitations: altered mental status - History of Present Illness Initial comments: Patient is a 61-year-old female with past medical history remarkable for possible MS, CVAs, hypertension, hyperlipidemia presents emergency Department with altered mental status. Over the last few months to years, the patient has become more bedbound. She is currently being worked up for MS. Patient's son-in-law presents with the patient. Family is primary caregivers. They have noticed that over the last few days she has had decreased by mouth intake as well as altered mental status. She is alert and oriented 4 baseline but currently is less alert and seems more confused. At baseline she does not walk on her own. Patient currently has no acute complaints at this time. They have not noticed any signs of nausea, vomiting, diarrhea, upper respiratory complaints. History is limited secondary to patient's current clinical status. She presents for altered mental status that has been progressive for multiple days. I evaluated the patient when she was placed in a room. - Related Data Home Medications Medication Instructions Recorded Confirmed Aspirin EC [Ecotrin Low Dose] 81 mg PO DAILY 04/12/16 07/25/21 Metoprolol Tartrate 100 mg PO BID 01/04/17 07/25/21 Sertraline [Zoloft] 100 mg PO DAILY 01/04/17 07/25/21 Omeprazole [PriLOSEC] 20 mg PO DAILY 02/09/20 07/25/21 Divalproex Sodium [Depakote] 500 mg PO BID 04/23/20 07/25/21 ARIPiprazole [Abilify] 10 mg PO HS 04/08/21 07/25/21 Sertraline [Zoloft] 25 mg PO DAILY 07/25/21 07/25/21 Previous Rx's Medication Instructions Recorded Atorvastatin [Lipitor] 20 mg PO HS #30 tab 02/13/20 Furosemide [Lasix] 20 mg PO DAILY 90 Days #90 tab 04/12/21 Allergies Allergy/AdvReac Type Severity Reaction Status Date / Time No Known Allergies Allergy Verified 07/25/21 21:20 Review of Systems ROS Statement: Those systems with pertinent positive or pertinent negative responses have been documented in the HPI. Difficult to obtain secondary to patient's current clinical status. ROS Other: All systems not noted in ROS Statement are negative. 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 gout, PANCREATITIS, pseudoseizures. 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 Past Anesthesia/Blood Transfusion Reactions: No Reported Reaction Additional Past Anesthesia/Blood Transfusion Reaction / Comment(s): PT HAS HAD BLOOD TRANSFUSIONS FOR ANEMIA-NO REACTION. Past Psychological History: Depression, Schizophrenia Smoking Status: Unknown if ever smoked Past Alcohol Use History: None Reported Past Drug Use History: Cocaine - Past Family History Sister(s) Family Medical History: Myocardial Infarction ([place]) Father Family Medical History: Cancer Additional Family Medical History / Comment(s): throat, lung, and rectal cancer Mother Family Medical History: Myocardial Infarction ([place]) Additional Family Medical History / Comment(s): stroke General Exam - General Exam Comments Initial Comments: General: Appears in no acute distress. HEAD: Normal with no signs of head trauma. EYES: PERRLA, EOMI, conjunctiva normal, no discharge. ENT: Hearing grossly intact, normal oropharynx. Dry mucous membranes. RESPIRATORY: Clear breath sounds bilaterally. No wheezes, rales, or rhonchi. C/V: Regular rate and rhythm. S1 and S2 auscultated, no edema, peripheral pulses 2+ and intact throughout ABD: Abd is soft, nontender, nondistended EXT: Chronic decreased movement of the left upper extremity. Patient also has acute right hand swelling that has been present for multiple days as well. There is not warm. Not tender. Able to move hand. Chest without difficulty. No signs of acute infection. SKIN: No rashes or lesions observed on exposed skin. NEURO: Alert but oriented only times one to 2. Chronic diffuse weakness. Neuro exam is difficult to obtain secondary to patient's clinical status. Limitations: altered mental status Course Vital Signs 07/25/21 07/25/21 07/25/21 17:52 18:00 19:22 Temperature 97.3 F L Pulse Rate 78 79 76 Respiratory 16 16 Rate Blood Pressure 77/48 97/68 116/86 O2 Sat by Pulse 93 L 96 96 Oximetry Medical Decision Making - Medical Decision Making On the patient's presentation and physical exam, she appears to be dehydrated with altered mental status. I'm concerned for possible infectious etiology at this time. We will obtain CT of the brain, chest x-ray, as well as broad laboratory studies. Family was in agreement this plan. She'll be given a 1 L fluid bolus to start. Laboratory studies were remarkable for a thrombocytopenia with a platelet count of 84, which has been seen on prior visits to the emergency department.Patient has an AK I with an elevated BUN/creatinine 73 and 3.01 respectively. Patient was initially hypoglycemic which resolved following 1 amp of D50. AST is elevated 187 and ALT is 66. Urinalysis is unremarkable. Positive opiate screen. Covid is negative. X-ray of the right hand and forearm showed no acute abnormality. Chest x-ray revealed very mild possible patchy opacities which could be secondary to COPD. Brain CT showed no acute intracranial process. Lactic acid is wnl. Blood cultures pending. On reevaluation, vital signs remained stable. Patient is relatively unchanged. Accepted the patient as well as family members on the plan. They were in agreement with the plan for admission for her JOSE and fluids. She was placed on a maintenance drip. I spoke with the admitting team, Dr. Lutz of [facility] [place] who is covering for Dr. Dwyer's group who would normally take the patient. He accepted the patient. She was admitted in serious condition. - Lab Data Result diagrams: 07/25/21 18:11 07/25/21 18:11 Lab Results 07/25/21 07/25/21 07/25/21 Range/Units 18:11 18:11 18:11 WBC 6.1 (3.8-10.6) k/uL RBC 4.15 (3.80-5.40) m/uL Hgb 10.8 L (11.4-16.0) gm/dL Hct 35.2 (34.0-46.0) % MCV 84.7 (80.0-100.0) fL MCH 26.1 (25.0-35.0) pg MCHC 30.8 L (31.0-37.0) g/dL RDW 18.9 H (11.5-15.5) % Plt Count 84 L (150-450) k/uL MPV 7.3 Neutrophils % (Manual) 47 % Lymphocytes % (Manual) 46 % Monocytes % (Manual) 7 % Neutrophils # (Manual) 2.87 (1.3-7.7) k/uL Lymphocytes # (Manual) 2.81 (1.0-4.8) k/uL Monocytes # (Manual) 0.43 (0-1.0) k/uL Nucleated RBCs 0 (0-0) /100 WBC Manual Slide Review Performed Hypochromasia Moderate Poikilocytosis (manual Present Anisocytosis Slight Target Cells Present Fragmented RBCs Present PT 10.7 (9.0-12.0) sec INR 1.0 (<1.2) APTT 19.1 L (22.0-30.0) sec Sodium (137-145) mmol/L Potassium (3.5-5.1) mmol/L Chloride (98-107) mmol/L Carbon Dioxide (22-30) mmol/L Anion Gap mmol/L BUN (7-17) mg/dL Creatinine (0.52-1.04) mg/dL Est GFR (CKD-EPI)AfAm (>60 ml/min/1.73 sqM) Est GFR (CKD-EPI)NonAf (>60 ml/min/1.73 sqM) Glucose (74-99) mg/dL POC Glucose (mg/dL) (75-99) mg/dL POC Glu Customer Retention Specialist ID Plasma Lactic Acid Shen (0.7-2.0) mmol/L Calcium (8.4-10.2) mg/dL Total Bilirubin (0.2-1.3) mg/dL AST (14-36) U/L ALT (4-34) U/L Alkaline Phosphatase (38-126) U/L Ammonia (<30) umol/L Troponin I (0.000-0.034) ng/mL Total Protein (6.3-8.2) g/dL Albumin (3.5-5.0) g/dL Urine Color Yellow Urine Appearance Clear (Clear) Urine pH 5.5 (5.0-8.0) Ur Specific [place] 1.016 (1.001-1.035) Urine Protein Trace H (Negative) Urine Glucose (UA) Negative (Negative) Urine Ketones Trace H (Negative) Urine Blood Negative (Negative) Urine Nitrite Negative (Negative) Urine Bilirubin Negative (Negative) Urine Urobilinogen 2.0 (<2.0) mg/dL Ur Leukocyte Esterase Negative (Negative) Urine Opiates Screen Detected H (NotDetected) Ur Oxycodone Screen Not Detected (NotDetected) Urine Methadone Screen Not Detected (NotDetected) Ur Propoxyphene Screen Not Detected (NotDetected) Ur Barbiturates Screen Not Detected (NotDetected) Valproic Acid ug/mL U Tricyclic Antidepress Not Detected (NotDetected) Ur Phencyclidine Scrn Not Detected (NotDetected) Ur Amphetamines Screen Not Detected (NotDetected) U Methamphetamines Scrn Not Detected (NotDetected) U Benzodiazepines Scrn Not Detected (NotDetected) Urine Cocaine Screen Not Detected (NotDetected) U Marijuana (THC) Screen Not Detected (NotDetected) Coronavirus (PCR) (Not Detectd) 07/25/21 07/25/21 07/25/21 Range/Units 18:11 18:11 18:11 WBC (3.8-10.6) k/uL RBC (3.80-5.40) m/uL Hgb (11.4-16.0) gm/dL Hct (34.0-46.0) % MCV (80.0-100.0) fL MCH (25.0-35.0) pg MCHC (31.0-37.0) g/dL RDW (11.5-15.5) % Plt Count (150-450) k/uL MPV Neutrophils % (Manual) % Lymphocytes % (Manual) % Monocytes % (Manual) % Neutrophils # (Manual) (1.3-7.7) k/uL Lymphocytes # (Manual) (1.0-4.8) k/uL Monocytes # (Manual) (0-1.0) k/uL Nucleated RBCs (0-0) /100 WBC Manual Slide Review Hypochromasia Poikilocytosis (manual Anisocytosis Target Cells Fragmented RBCs PT (9.0-12.0) sec INR (<1.2) APTT (22.0-30.0) sec Sodium 140 (137-145) mmol/L Potassium 4.4 (3.5-5.1) mmol/L Chloride 105 (98-107) mmol/L Carbon Dioxide 18 L (22-30) mmol/L Anion Gap 17 mmol/L BUN 73 H (7-17) mg/dL Creatinine 3.01 H (0.52-1.04) mg/dL Est GFR (CKD-EPI)AfAm 18 (>60 ml/min/1.73 sqM) Est GFR (CKD-EPI)NonAf 16 (>60 ml/min/1.73 sqM) Glucose 51 L (74-99) mg/dL POC Glucose (mg/dL) (75-99) mg/dL POC Glu Customer Retention Specialist ID Plasma Lactic Acid Shen 1.2 (0.7-2.0) mmol/L Calcium 9.4 (8.4-10.2) mg/dL Total Bilirubin 0.6 (0.2-1.3) mg/dL AST 187 H (14-36) U/L ALT 66 H (4-34) U/L Alkaline Phosphatase 102 (38-126) U/L Ammonia 9 (<30) umol/L Troponin I 0.016 (0.000-0.034) ng/mL Total Protein 7.5 (6.3-8.2) g/dL Albumin 3.8 (3.5-5.0) g/dL Urine Color Urine Appearance (Clear) Urine pH (5.0-8.0) Ur Specific [place] (1.001-1.035) Urine Protein (Negative) Urine Glucose (UA) (Negative) Urine Ketones (Negative) Urine Blood (Negative) Urine Nitrite (Negative) Urine Bilirubin (Negative) Urine Urobilinogen (<2.0) mg/dL Ur Leukocyte Esterase (Negative) Urine Opiates Screen (NotDetected) Ur Oxycodone Screen (NotDetected) Urine Methadone Screen (NotDetected) Ur Propoxyphene Screen (NotDetected) Ur Barbiturates Screen (NotDetected) Valproic Acid 107.8 ug/mL U Tricyclic Antidepress (NotDetected) Ur Phencyclidine Scrn (NotDetected) Ur Amphetamines Screen (NotDetected) U Methamphetamines Scrn (NotDetected) U Benzodiazepines Scrn (NotDetected) Urine Cocaine Screen (NotDetected) U Marijuana (THC) Screen (NotDetected) Coronavirus (PCR) (Not Detectd) 07/25/21 07/25/21 07/25/21 Range/Units 18:16 19:57 20:41 WBC (3.8-10.6) k/uL RBC (3.80-5.40) m/uL Hgb (11.4-16.0) gm/dL Hct (34.0-46.0) % MCV (80.0-100.0) fL MCH (25.0-35.0) pg MCHC (31.0-37.0) g/dL RDW (11.5-15.5) % Plt Count (150-450) k/uL MPV Neutrophils % (Manual) % Lymphocytes % (Manual) % Monocytes % (Manual) % Neutrophils # (Manual) (1.3-7.7) k/uL Lymphocytes # (Manual) (1.0-4.8) k/uL Monocytes # (Manual) (0-1.0) k/uL Nucleated RBCs (0-0) /100 WBC Manual Slide Review Hypochromasia Poikilocytosis (manual Anisocytosis Target Cells Fragmented RBCs PT (9.0-12.0) sec INR (<1.2) APTT (22.0-30.0) sec Sodium (137-145) mmol/L Potassium (3.5-5.1) mmol/L Chloride (98-107) mmol/L Carbon Dioxide (22-30) mmol/L Anion Gap mmol/L BUN (7-17) mg/dL Creatinine (0.52-1.04) mg/dL Est GFR (CKD-EPI)AfAm (>60 ml/min/1.73 sqM) Est GFR (CKD-EPI)NonAf (>60 ml/min/1.73 sqM) Glucose (74-99) mg/dL POC Glucose (mg/dL) 47 L 124 H (75-99) mg/dL POC Glu Customer Retention Specialist ID Hutchinson, Elieser Hutchinson, Elieser Plasma Lactic Acid Shen (0.7-2.0) mmol/L Calcium (8.4-10.2) mg/dL Total Bilirubin (0.2-1.3) mg/dL AST (14-36) U/L ALT (4-34) U/L Alkaline Phosphatase (38-126) U/L Ammonia (<30) umol/L Troponin I (0.000-0.034) ng/mL Total Protein (6.3-8.2) g/dL Albumin (3.5-5.0) g/dL Urine Color Urine Appearance (Clear) Urine pH (5.0-8.0) Ur Specific [place] (1.001-1.035) Urine Protein (Negative) Urine Glucose (UA) (Negative) Urine Ketones (Negative) Urine Blood (Negative) Urine Nitrite (Negative) Urine Bilirubin (Negative) Urine Urobilinogen (<2.0) mg/dL Ur Leukocyte Esterase (Negative) Urine Opiates Screen (NotDetected) Ur Oxycodone Screen (NotDetected) Urine Methadone Screen (NotDetected) Ur Propoxyphene Screen (NotDetected) Ur Barbiturates Screen (NotDetected) Valproic Acid ug/mL U Tricyclic Antidepress (NotDetected) Ur Phencyclidine Scrn (NotDetected) Ur Amphetamines Screen (NotDetected) U Methamphetamines Scrn (NotDetected) U Benzodiazepines Scrn (NotDetected) Urine Cocaine Screen (NotDetected) U Marijuana (THC) Screen (NotDetected) Coronavirus (PCR) Not Detected (Not Detectd) 07/25/21 Range/Units 21:57 WBC (3.8-10.6) k/uL RBC (3.80-5.40) m/uL Hgb (11.4-16.0) gm/dL Hct (34.0-46.0) % MCV (80.0-100.0) fL MCH (25.0-35.0) pg MCHC (31.0-37.0) g/dL RDW (11.5-15.5) % Plt Count (150-450) k/uL MPV Neutrophils % (Manual) % Lymphocytes % (Manual) % Monocytes % (Manual) % Neutrophils # (Manual) (1.3-7.7) k/uL Lymphocytes # (Manual) (1.0-4.8) k/uL Monocytes # (Manual) (0-1.0) k/uL Nucleated RBCs (0-0) /100 WBC Manual Slide Review Hypochromasia Poikilocytosis (manual Anisocytosis Target Cells Fragmented RBCs PT (9.0-12.0) sec INR (<1.2) APTT (22.0-30.0) sec Sodium (137-145) mmol/L Potassium (3.5-5.1) mmol/L Chloride (98-107) mmol/L Carbon Dioxide (22-30) mmol/L Anion Gap mmol/L BUN (7-17) mg/dL Creatinine (0.52-1.04) mg/dL Est GFR (CKD-EPI)AfAm (>60 ml/min/1.73 sqM) Est GFR (CKD-EPI)NonAf (>60 ml/min/1.73 sqM) Glucose (74-99) mg/dL POC Glucose (mg/dL) 73 L (75-99) mg/dL POC Glu Customer Retention Specialist Cielo Mcfarland Plasma Lactic Acid Shen (0.7-2.0) mmol/L Calcium (8.4-10.2) mg/dL Total Bilirubin (0.2-1.3) mg/dL AST (14-36) U/L ALT (4-34) U/L Alkaline Phosphatase (38-126) U/L Ammonia (<30) umol/L Troponin I (0.000-0.034) ng/mL Total Protein (6.3-8.2) g/dL Albumin (3.5-5.0) g/dL Urine Color Urine Appearance (Clear) Urine pH (5.0-8.0) Ur Specific [place] (1.001-1.035) Urine Protein (Negative) Urine Glucose (UA) (Negative) Urine Ketones (Negative) Urine Blood (Negative) Urine Nitrite (Negative) Urine Bilirubin (Negative) Urine Urobilinogen (<2.0) mg/dL Ur Leukocyte Esterase (Negative) Urine Opiates Screen (NotDetected) Ur Oxycodone Screen (NotDetected) Urine Methadone Screen (NotDetected) Ur Propoxyphene Screen (NotDetected) Ur Barbiturates Screen (NotDetected) Valproic Acid ug/mL U Tricyclic Antidepress (NotDetected) Ur Phencyclidine Scrn (NotDetected) Ur Amphetamines Screen (NotDetected) U Methamphetamines Scrn (NotDetected) U Benzodiazepines Scrn (NotDetected) Urine Cocaine Screen (NotDetected) U Marijuana (THC) Screen (NotDetected) Coronavirus (PCR) (Not Detectd) - EKG Data -: EKG Interpreted by Me EKG Comments: 12-lead Electrocardiogram Interpretation Note EKG was reviewed and interpreted by myself. 12-lead ECG performed at 1750 is interpreted by me as revealing normal sinus rhythm at a rate of 77 beats per minute. [place] is normal. [place] interval is 144 ms, QRS duration 72 ms, QTc is 434 ms.. There were no ST or T wave abnormalities to suggest myocardial ischemia or injury. R wave progression across the precordium was satisfactory. By my interpretation this EKG is non-diagnostic for acute ischemia. Disposition Clinical Impression: AMS (altered mental status), Confusion, Hypoglycemia, JOSE (acute kidney injury), Dehydration Disposition: ADMITTED IP TO THIS HOSP Condition: Serious Referrals: Kun Harley MD [Primary Care Provider] - 1-2 days
[2021-07-25 21:59] LABS: Glucose,Whole Blood 73 mg/dL (75-99)
[2021-07-25] MEDS ORDERED: ACETAMINOPHEN TAB 325 MG TAB PO PRN (23:09)
[2021-07-25] MEDS ORDERED: KETOROLAC 15 MG/ML 1 ML VIAL IVP STA (23:24)
[2021-07-25] MEDS: DIVALPROEX 500 MG TABLET.DR PO SCH (23:35)
[2021-07-25] MEDS: METOPROLOL TARTRATE 50 MG TAB PO SCH (23:36)
[2021-07-25] MEDS: HEPARIN SODIUM,PORCINE/PF 5,000 UNIT/0.5 ML SYRINGE SQ SCH (23:38)
--- NOTE | 2021-07-26 00:39 | P.HPIM ---
History of Present Illness H&P Date: 07/25/21 Chief Complaint: Altered mental status 61-year-old female with multiple strokes and brain aneurysms status post coiling. Hypertension and epileptic seizure Was brought into the hospital today due to sudden worsening in her mental status patient became unresponsive and son-in-law who is caregiver decided to bring her to the hospital for evaluation. He did indicate that over the past year she had steady decline in her neurologic status where over the past few months she became unable to walk or stand up having increased sensitivity to touch over lower extremities she's been following up with neurology without definitive diagnosis multiple sclerosis has been suspected but not confirmed yet. Otherwise he denies any signs and symptoms of upper respiratory infection denies any diarrhea or nausea or vomiting or abdominal pain denies any urinary changes or bowel habit changes He reports that over the past few days she had decrease in by mouth intake and today she had sudden decline in her mental status which she became unresponsive for which she brought in for evaluation Upon arriving to the hospital patient was found hypoglycemic and mental status improved with giving her some glucose Blood work did reveal acute kidney injury and some mild elevated liver enzymes patient admitted for further evaluation by neurology and close monitoring Patient minimally participated with this interview only confirming the story of her son-in-law by indicating yes andotherwise she is minimally interactive however alert and follows simple commands Review of Systems Pertinent positives as noted in HPI. All other systems were reviewed and are negative Past Medical History Past Medical History: CVA/TIA, Hyperlipidemia, Hypertension Additional Past Medical History / Comment(s): ANEMIA, 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 gout, PANCREATITIS, pseudoseizures. 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 Past Anesthesia/Blood Transfusion Reactions: No Reported Reaction Additional Past Anesthesia/Blood Transfusion Reaction / Comment(s): PT HAS HAD BLOOD TRANSFUSIONS FOR ANEMIA-NO REACTION. Past Psychological History: Depression, Schizophrenia Smoking Status: Unknown if ever smoked Past Alcohol Use History: None Reported Past Drug Use History: Cocaine - Past Family History Sister(s) Family Medical History: Myocardial Infarction ([place]) Father Family Medical History: Cancer Additional Family Medical History / Comment(s): throat, lung, and rectal cancer Mother Family Medical History: Myocardial Infarction ([place]) Additional Family Medical History / Comment(s): stroke Medications and Allergies Home Medications Medication Instructions Recorded Confirmed Type Aspirin EC [Ecotrin Low Dose] 81 mg PO DAILY 04/12/16 07/25/21 History Metoprolol Tartrate 100 mg PO BID 01/04/17 07/25/21 History Sertraline [Zoloft] 100 mg PO DAILY 01/04/17 07/25/21 History Omeprazole [PriLOSEC] 20 mg PO DAILY 02/09/20 07/25/21 History Atorvastatin [Lipitor] 20 mg PO HS #30 tab 02/13/20 07/25/21 Rx Divalproex Sodium [Depakote] 500 mg PO BID 04/23/20 07/25/21 History ARIPiprazole [Abilify] 10 mg PO HS 04/08/21 07/25/21 History Furosemide [Lasix] 20 mg PO DAILY 90 Days #90 tab 04/12/21 07/25/21 Rx Sertraline [Zoloft] 25 mg PO DAILY 07/25/21 07/25/21 History Allergies Allergy/AdvReac Type Severity Reaction Status Date / Time No Known Allergies Allergy Verified 07/25/21 21:20 Physical Exam Vitals: Vital Signs Temp Pulse Resp BP Pulse Ox 07/25/21 19:22 76 116/86 96 07/25/21 18:00 79 16 97/68 96 07/25/21 17:52 97.3 F L 78 16 77/48 93 L Intake and Output 07/25/21 07/25/21 07/25/21 06:59 14:59 22:59 Other: Weight 47.627 kg Constitutional: No acute distress, answers questions with yes and no, follows simple commands Eyes: Anicteric sclerae, moist conjunctiva, Pupils equal round reactive to light ENMT: NC/AT Oropharynx clear, no erythema, or exudates Neck: Supple,, no masses, or JVD No carotid bruits No thyromegaly Lungs: Clear to auscultation Clear to percussion Normal respiratory effort, no accessory muscle use Cardiovascular: Heart regular in rate and rhythm, No murmurs, gallops, or rubs No peripheral edema Abdominal: Soft Nontender, no guarding, rebound or rigidity Abdomen moving with respiration Normoactive bowel sounds No hepatomegaly, No splenomegaly No palpable mass No abdominal wall hernia noted Skin: Some nonpitting edema of the right upper extremity over the dorsum of right hand, otherwise Normal temperature, tone, texture, turgor No induration No subcutaneous nodules No rash, lesions No ulcers Extremities: No digital cyanosis No clubbing Pedal pulses intact and symmetrical Radial pulses intact and symmetrical No calf tenderness Psychiatric: Alert and oriented to person, place Depressed affect Neuro Muscles Strength 2/5 bilateral lower extremities, 3/5 left upper extremity and 4/5 right upper extremity Increased sensitivity to light touch over the left lower extremity otherwise no other focal sensory deficits Cranial nerves II-XII grossly intact Lymphatics: no palpable cervical or supraclavicular , or inguinal lymph nodes Results CBC & Chem 7: 07/25/21 18:11 07/25/21 18:11 Labs: Abnormal Lab Results - Last 24 Hours (Table) 07/25/21 07/25/21 07/25/21 Range/Units 18:11 18:11 18:11 Hgb 10.8 L (11.4-16.0) gm/dL MCHC 30.8 L (31.0-37.0) g/dL RDW 18.9 H (11.5-15.5) % Plt Count 84 L (150-450) k/uL APTT 19.1 L (22.0-30.0) sec Carbon Dioxide (22-30) mmol/L BUN (7-17) mg/dL Creatinine (0.52-1.04) mg/dL Glucose (74-99) mg/dL POC Glucose (mg/dL) (75-99) mg/dL AST (14-36) U/L ALT (4-34) U/L Urine Protein Trace H (Negative) Urine Ketones Trace H (Negative) Urine Opiates Screen Detected H (NotDetected) 07/25/21 07/25/21 Range/Units 18:11 19:57 Hgb (11.4-16.0) gm/dL MCHC (31.0-37.0) g/dL RDW (11.5-15.5) % Plt Count (150-450) k/uL APTT (22.0-30.0) sec Carbon Dioxide 18 L (22-30) mmol/L BUN 73 H (7-17) mg/dL Creatinine 3.01 H (0.52-1.04) mg/dL Glucose 51 L (74-99) mg/dL POC Glucose (mg/dL) 47 L (75-99) mg/dL AST 187 H (14-36) U/L ALT 66 H (4-34) U/L Urine Protein (Negative) Urine Ketones (Negative) Urine Opiates Screen (NotDetected) Assessment and Plan Assessment: Acute metabolic encephalopathy secondary to hypoglycemia resolved Patient has poor by mouth intake at home found to be hypoglycemic improved after D50 amp IV push Continue to monitor blood glucose every 2 hours Encourage by mouth intake Fall precautions Progressive neurologic decline unknown underlying cause rule out a less versus a mass Neurology consultation CT of the brain showed no acute new pathology however did show unchanged right MCA infarction, and periventricular patchy low attenuation lesions Neurochecks Acute kidney injury most likely secondary to dehydration and decreased by mouth intake Hold nephrotoxic meds Gentle IV fluid hydration with normal saline Monitor renal function and urine output Mild transaminitis Hold statin Continue to monitor liver enzymes Chronic conditions Epileptic seizure, most recent breakthrough was 4 years ago, continue with Depakote, check Depakote level Multiple strokes and brain aneurysm, continue with neuro checks, continue home meds Hypertension continue home blood pressure meds Hyperlipidemia, hold statin due to elevated liver enzymes Fall precautions Patient is full code DVT prophylaxis heparin subcu 3 times a day Anticipated length of stay less than 2 midnights Anticipated discharge home
[2021-07-26] MEDS ORDERED: MORPHINE SULFATE 2 MG/ML SYRINGE IVP PRN (00:42)
[2021-07-26 08:55] LABS: Glucose,Whole Blood 50 mg/dL (75-99)
[2021-07-26 09:12] LABS: Glucose,Whole Blood 51 mg/dL (75-99)
[2021-07-26 09:20] LABS: Calcium 8.5 mg/dL (8.4-10.2); Magnesium 1.8 mg/dL (1.6-2.3); Potassium 3.8 mmol/L (3.5-5.1)
[2021-07-26] MEDS: DEXTROSE 5%-0.45% NACL 1,000 ML IV SCH ×2 (09:20→23:08)
[2021-07-26] MEDS: HEPARIN SODIUM,PORCINE/PF 5,000 UNIT/0.5 ML SYRINGE SQ SCH ×2 (09:20→23:07)
[2021-07-26] MEDS: DIVALPROEX 500 MG TABLET.DR PO SCH ×2 (09:21→23:07)
[2021-07-26] MEDS: PANTOPRAZOLE 40 MG TABLET PO SCH (09:21)
[2021-07-26] MEDS: ASPIRIN 81 MG PO SCH (09:21)
[2021-07-26] MEDS: SERTRALINE 100 MG TAB PO SCH (09:21)
[2021-07-26] MEDS: METOPROLOL TARTRATE 50 MG TAB PO SCH ×2 (09:21→23:08)
[2021-07-26 09:25] LABS: Valproic Acid (Depakene) 77.3 ug/mL
[2021-07-26 09:40] LABS: Glucose,Whole Blood 64 mg/dL (75-99)
--- NOTE | 2021-07-26 09:59 | US ---
EXAMINATION TYPE: US renals and bladder DATE OF EXAM: 07/26/2021 COMPARISON: NONE CLINICAL HISTORY: acute renal failure. Renal failure EXAM MEASUREMENTS: Right Kidney: 9.6 x 5.9 x 5.1 cm Left Kidney: 8.9 x 4.4 x 5.0 cm Right Kidney: No hydronephrosis or masses seen Left Kidney: Obscured by overlying bowel gas Bladder: Bladder moore seen within Bilateral Jets seen: No There is no evidence for hydronephrosis at this point in time. No nephrolithiasis is seen. No melissa s are identified. IMPRESSION: Renal parenchymal thinning and increased echogenicity of the kidneys may reflect medical renal diseas e. Correlate clinically.
[2021-07-26 10:38] LABS: Glucose,Whole Blood 74 mg/dL (75-99)
[2021-07-26 10:51] LABS: Anisocytosis Slight; HCT 35.3 % (34.0-46.0); HGB 10.8 gm/dL (11.4-16.0); Hypochromasia Moderate; MCH 26.2 pg (25.0-35.0); MCHC 30.6 g/dL (31.0-37.0); MCV 85.6 fL (80.0-100.0); Mean Platelet Volume 7.9; RBC 4.12 m/uL (3.80-5.40); RDW 19.2 % (11.5-15.5); WBC 5.1 k/uL (3.8-10.6)
[2021-07-26 10:52] LABS: Platelet Count 72 k/uL (150-450)
--- NOTE | 2021-07-26 12:29 | P.NPCON ---
History of Present Illness - Reason for Consult Consult date: 07/26/21 acute renal failure - Chief Complaint Worsening confusion - History of Present Illness This is a 61-year-old female was seen in consultation because of acute kidney injury and fusion Because of inability to obtain history, all the history is from the notes She is known with multiple strokes brain aneurysm status post coiling hypertension and seizure disorder She came in because of worsening mental status changes and unresponsiveness. Currently on exam she is unable to give any history she does follow some commands but speaks with she is difficult to understand She is weak and tired. Past history significant for CVA hypertension left arm and leg weakness chronically history of pancreatitis with gallstones E. coli UTI. Supposedly tends and calls have been placed in her cerebrovascular vessels. Details are unavailable. A computed tomography scan the brain shows no acute changes. Chronic changes noted right MCA infarct seen prominent CSF spaces and the ventricles. A chest x-ray is rather unremarkable Ultrasound of the kidney shows 9.6 cm and 8.9 cm right and left kidney Past Medical History Past Medical History: CVA/TIA, Hyperlipidemia, Hypertension Additional Past Medical History / Comment(s): ANEMIA, 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 gout, PANCREAT ITIS, pseudoseizures. 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 Past Anesthesia/Blood Transfusion Reactions: No Reported Reaction Additional Past Anesthesia/Blood Transfusion Reaction / Comment(s): PT HAS HAD BLOOD TRANSFUSIONS FOR ANEMIA-NO REACTION. Past Psychological History: Depression, Schizophrenia Additional Psychological History / Comment(s): paranoid schizophrenia Smoking Status: Unknown if ever smoked Past Alcohol Use History: None Reported Additional Past Alcohol Use History / Comment(s): STARTED SMOKING AT AGE 14, SMOKED 1PPD, QUIT >20 YEARS AGO BUT SMOKED AGAIN BRIEFLY WHEN AT [place] BUT QUIT 1.5 YERAS AGO Past Drug Use History: Cocaine Additional Drug Use History / Comment(s): No current use. Last used 15 yrs ago. - Past Family History Sister(s) Family Medical History: Myocardial Infarction ([place]) Father Family Medical History: Cancer Additional Family Medical History / Comment(s): throat, lung, and rectal cancer Mother Family Medical History: Myocardial Infarction ([place]) Additional Family Medical History / Comment(s): stroke Medications and Allergies Home Medications Medication Instructions Recorded Confirmed Type Aspirin EC [Ecotrin Low Dose] 81 mg PO DAILY 04/12/16 07/25/21 History Metoprolol Tartrate 100 mg PO BID 01/04/17 07/25/21 History Sertraline [Zoloft] 100 mg PO DAILY 01/04/17 07/25/21 History Omeprazole [PriLOSEC] 20 mg PO DAILY 02/09/20 07/25/21 History Atorvastatin [Lipitor] 20 mg PO HS #30 tab 02/13/20 07/25/21 Rx Divalproex Sodium [Depakote] 500 mg PO BID 04/23/20 07/25/21 History ARIPiprazole [Abilify] 10 mg PO HS 04/08/21 07/25/21 History Furosemide [Lasix] 20 mg PO DAILY 90 Days #90 tab 04/12/21 07/25/21 Rx Sertraline [Zoloft] 25 mg PO DAILY 07/25/21 07/25/21 History Allergies Allergy/AdvReac Type Severity Reaction Status Date / Time No Known Allergies Allergy Verified 07/25/21 21:20 Physical Exam Vitals: Vital Signs Temp Pulse Pulse Resp BP BP Pulse Ox 07/26/21 08:11 97.4 F L 62 15 123/78 96 07/26/21 03:00 69 18 110/78 95 07/25/21 23:22 98.0 F 70 16 114/72 95 07/25/21 23:00 71 19 104/68 93 L 07/25/21 22:00 73 12 104/68 94 L 07/25/21 21:00 75 11 L 104/68 93 L 07/25/21 20:00 70 11 L 116/86 98 07/25/21 19:22 76 116/86 96 07/25/21 19:00 75 16 97/68 97 07/25/21 18:00 79 10 L 77/48 97 07/25/21 17:52 97.3 F L 78 16 77/48 93 L Intake and Output 07/25/21 07/26/21 07/26/21 22:59 06:59 14:59 Intake Total 1160 Output Total 720 Balance 440 Intake: Oral 1160 Output: Urine 720 Other: Voiding Method Indwelling Catheter # Voids 1 # Bowel Movements 0 Weight 47.627 kg 47.627 kg Examination she is arousable, sleepy. Follow some commands. Seems to have left hemiparesis HEENT exam no JVP neck is supple Lungs are clear to auscultation but poor air entry Chest x-rays rather unremarkable though Heart sounds unremarkable normal sinus rhythm Breasts soft nontender scaphoid Extremities exam was no edema Neurologically left hemiparesis but generalized weakness streaks but cannot be understood. Does follow some commands Results - Lab Results Most recent lab results Calcium 8.5 mg/dL (8.4-10.2) 07/26/21 08:12 Magnesium 1.8 mg/dL (1.6-2.3) 07/26/21 08:12 07/26/21 10:20 07/26/21 08:12 Assessment and Plan Assessment: Impression 1. Acute kidney injury likely from all and depletion from low intake. Improved creatinine from 3.01 mg to 1.77. Baseline creatinine 1.1 and 1.3 over the last 2 months. 2. Mild degree of gap acidosis , likely from starvation ketosis with urine ketones trace as well as from acute kidney injury, worsened here in the hospital bicarb went from 18-13 likely from the IV fluids his lactic acid was 1.2. 3. History of CVA, confusion chronically with left hemiparesis and history of colitis and stents in her cerebral vessels. 4. Anemia and was 10.8 5. Low platelet count 84,000, 2 72,000. Was 1 65,000 a month ago on 06/18/2021, she had episodic thrombocytopenia. Recommendation 1. Agree with giving D5 half-normal saline, to providers some sugars so that she can turn on the ketosis. 2. Would give her some sodium bicarb IV 50 mEq over 1 hour 2 doses. 3. Monitor labs I's and O's and avoid any nephrotoxic medications. Thank you for this consultation, We'll continue to follow closely
[2021-07-26 12:45] LABS: Eosinophils # (M) 0.15 k/uL (0-0.7); Lymphocytes # (M) 2.04 k/uL (1.0-4.8); Mixed Population RBC Present; Monocytes # (M) 0.26 k/uL (0-1.0); Myelocytes # (M) 0.05 k/uL (0); Myelocytes % 1 %; Neutrophils % (M) 53 %; Nucleated Red Blood Cells 0 /100 WBC (0-0); Poikilocytosis (M) Present; RBC Fragments Present; Total Cells Counted 200
--- NOTE | 2021-07-26 13:06 | P.CNNES ---
History of Present Illness Consult date: 07/26/21 Requesting physician: Bharat Lutz Reason for Consult: Progressive neurologic decline History of Present Illness: Patient is a 61-year-old right-handed female came to the hospital by ambulance yesterday at 5:45 PM. Patient states that she came to the hospital because she has a UTI, any failure but she feels all right. She denies any dysuria or foul- smelling urine. She states that she lives with her son, daughter grandkids and also nurse comes to help her out. As per EMS flow sheet, family had noticed that patient has been weak and lethargic since 4 PM the same day. Patient is nonambulatory at baseline and has been unable to sit upright lately. Patient also had severe swelling in the right wrist and hand with some bruising to the medial posterior aspect of the wrist. Patient's blood pressure was 108/74, pulse rate 76, respirations 20, as blood sugar 75 and temperature 97.8. Patient's blood test shows normal white count, hemoglobin 10.8, MCV 84. PT is normal, INR normal. Electrolytes are normal, BUN 73, creatinine 3.01. AST is elevated 187 and ALT 66. Troponin negative, ammonia normal. UA shows trace protein and ketones. Urine drug screen positive for opiates. Depakote level is elevated 107.8. Gomez virus PCR negative. Patient's last hemoglobin A1c 5.1 on 02/05/2021. Patient's last B12 is 547, B6 was low at 2 and vitamin D also slightly low 20.7. Folate 10.0. Patient had an EEG on 02/13/2020 which was abnormal EEG due to background disorganization, intermittent focal slowing in the above described region. This is suggestive of focal cortical neuronal dysfunction, superimposed on mild encephalopathy. No definite epileptiform activity was seen. If the suspicion for seizures is high, suggest prolonged, sleep deprived EEG. Patient has been seen by Dr. Tino Gray recently on 04/08/2021 for generalized weakness for past 1-1/2 years. It was felt patient has history of multiple UTIs which can give generalized weakness as well as metabolic abnormality. 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 History of brain aneurysm status post coil stents. History of seizure. Acute on chronic kidney insufficiency. Patient denies any tobacco or alcohol use. She believes that she had stroke 5 years ago. I spoke to patient's daughter Sivan on the phone, who mentions that patient's mobility has been decreasing gradually for the last 30 days. Patient was able to walk with her walker, or hanging on to someone, used to walk slow but was able to do. However in the last few days, she is not able to walk at all. Not even able to stand up. Patient cannot have MRI of the brain because of results of stents and coils in the brain from previous aneurysm surgery. Review of Systems Patient denies any headache. Denies any abdominal pain nausea vomiting diarrhea. No chest pain, shortness of breath wheezing or cough. No fever or chills. Denies dysuria. Denies any rash. She does have birthmark in the right hand medially. Patient has history of a stroke. Patient is nonambulatory. All other review of systems reviewed and noncontributory to the present illness. 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 gout, PANCREATITIS, pseudoseizures. 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 Past Anesthesia/Blood Transfusion Reactions: No Reported Reaction Additional Past Anesthesia/Blood Transfusion Reaction / Comment(s): PT HAS HAD BLOOD TRANSFUSIONS FOR ANEMIA-NO REACTION. Past Psychological History: Depression, Schizophrenia Additional Psychological History / Comment(s): paranoid schizophrenia Smoking Status: Unknown if ever smoked Past Alcohol Use History: None Reported Additional Past Alcohol Use History / Comment(s): STARTED SMOKING AT AGE 14, SMOKED 1PPD, QUIT >20 YEARS AGO BUT SMOKED AGAIN BRIEFLY WHEN AT [place] BUT QUIT 1.5 YERAS AGO Past Drug Use History: Cocaine Additional Drug Use History / Comment(s): No current use. Last used 15 yrs ago. - Past Family History Sister(s) Family Medical History: Myocardial Infarction ([place]) Father Family Medical History: Cancer Additional Family Medical History / Comment(s): throat, lung, and rectal cancer Mother Family Medical History: Myocardial Infarction ([place]) Additional Family Medical History / Comment(s): stroke Medications and Allergies Home Medications Medication Instructions Recorded Confirmed Type Aspirin EC [Ecotrin Low Dose] 81 mg PO DAILY 04/12/16 07/25/21 History Metoprolol Tartrate 100 mg PO BID 01/04/17 07/25/21 History Sertraline [Zoloft] 100 mg PO DAILY 01/04/17 07/25/21 History Omeprazole [PriLOSEC] 20 mg PO DAILY 02/09/20 07/25/21 History Atorvastatin [Lipitor] 20 mg PO HS #30 tab 02/13/20 07/25/21 Rx Divalproex Sodium [Depakote] 500 mg PO BID 04/23/20 07/25/21 History ARIPiprazole [Abilify] 10 mg PO HS 04/08/21 07/25/21 History Furosemide [Lasix] 20 mg PO DAILY 90 Days #90 tab 04/12/21 07/25/21 Rx Sertraline [Zoloft] 25 mg PO DAILY 07/25/21 07/25/21 History Allergies Allergy/AdvReac Type Severity Reaction Status Date / Time No Known Allergies Allergy Verified 07/25/21 21:20 Physical Examination - Vital Signs Vital Signs: Vital Signs Temp Pulse Pulse Resp BP BP Pulse Ox 07/26/21 08:11 97.4 F L 62 15 123/78 96 07/26/21 03:00 69 18 110/78 95 07/25/21 23:22 98.0 F 70 16 114/72 95 07/25/21 23:00 71 19 104/68 93 L 07/25/21 22:00 73 12 104/68 94 L 07/25/21 21:00 75 11 L 104/68 93 L 07/25/21 20:00 70 11 L 116/86 98 07/25/21 19:22 76 116/86 96 07/25/21 19:00 75 16 97/68 97 07/25/21 18:00 79 10 L 77/48 97 07/25/21 17:52 97.3 F L 78 16 77/48 93 L Intake and Output 07/25/21 07/26/21 07/26/21 22:59 06:59 14:59 Other: Voiding Method Indwelling Catheter Weight 47.627 kg 47.627 kg Patient is an elderly Afro-Greek female, appears slightly older than her stated age. Patient is alert awake, but has significantly slow mentation. Prolonged latency time to answer question. Patient states it is May and the year is 2019. She knows she is in [facility] in [facility]. When I asked about president, patient took some time to think, then said "I can't think of the president". When I gave her multiple choices, patient did state is Biden. Speech and language functions are normal. Patient can name and repeat. Attention, concentration and fund of knowledge is limited. On cranial examination, pupils are round and reacting to light, visual campoverde are full on confrontation, with no neglect on double simultaneous stimulation. Her extraocular muscles are intact with no nystagmus. Face is symmetric, tongue protrudes to the midline. Palatal elevation and sensation normal, hearing is slightly decreased and facial sensation normal. Shoulder shrug decreased on the left. On muscle strength testing, patient has spastic left hemiparesis. The left hand and arm is particularly spastic. Right upper extremity is also diffusely 4+, perhaps from decreased effort. In the lower extremities, both lower extremities are about 1-2. She is only able to lift both legs about 5-[address]. No resistance in either leg. Deep tendon reflexes are 3 in the right upper limb, 2 in the left upper limb. 1 in the lower limbs and plantars are upgoing bilaterally. Sensory to touch is equal bilaterally, but she neglects left side on double simultaneous stimulation. Cerebellar function showed no ataxia for [id number] testing, cannot perform on the left. Tone is significantly increased in the left arm, but otherwise normal. Her bulk of muscles normal. Gait patient nonambulatory.. On general examination, there is no carotid bruit or murmur, S1-S2 audible. Abdomen is soft nontender, positive bowel sounds, no organomegaly. Chest is clear. Peripheral pulses are present. No edema. Results - Laboratory Findings CBC and BMP: 07/26/21 10:20 07/26/21 08:12 Abnormal Lab Findings: Abnormal Labs 12/07/25/21 07/25/21 18:11 18:11 18:11 Hgb 10.8 L MCHC 30.8 L RDW 18.9 H Plt Count 84 L APTT 19.1 L Chloride Carbon Dioxide BUN Creatinine Glucose POC Glucose (mg/dL) AST ALT Urine Protein Trace H Urine Ketones Trace H Urine Opiates Screen Detected H 07/25/21 07/25/21 07/25/21 18:11 19:57 20:41 Hgb MCHC RDW Plt Count APTT Chloride Carbon Dioxide 18 L BUN 73 H Creatinine 3.01 H Glucose 51 L POC Glucose (mg/dL) 47 L 124 H AST 187 H ALT 66 H Urine Protein Urine Ketones Urine Opiates Screen 07/25/21 07/26/21 07/26/21 21:57 08:12 08:53 Hgb MCHC RDW Plt Count APTT Chloride 113 H Carbon Dioxide 13 L BUN 62 H Creatinine 1.77 H Glucose 56 L POC Glucose (mg/dL) 73 L 50 L AST ALT Urine Protein Urine Ketones Urine Opiates Screen 07/26/21 07/26/21 09:11 09:38 Hgb MCHC RDW Plt Count APTT Chloride Carbon Dioxide BUN Creatinine Glucose POC Glucose (mg/dL) 51 L 64 L AST ALT Urine Protein Urine Ketones Urine Opiates Screen Assessment and Plan Assessment: * Generalized weakness, decreased mobility, ambulation, probably multifactorial as reasons mentioned below. * Patient had very poor oral intake, dehydration leading to acute kidney injury. * Acute kidney injury likely from dehydration, improving * Abnormal hepatic enzymes * Elevated Depakote level * History of right MCA ischemic stroke with chronic left hemiplegia. * Vitamin B6 deficiency * Seizure disorder * History of brain aneurysms Plan: * Wanted an MRI of the brain to rule out any small ischemic stroke, but patient's daughter states that she cannot have MRI because of presence of stents and coils in the brain. I personally reviewed her computed tomography scan of the head of 07/25/2021, compared with computed tomography scan of 04/12/2021, and did not notice any change. No new stroke. * Patient's Depakote level was quite high 107.8 yesterday, today is 77.3. High Depakote level can produce psychomotor retardation, and mental slowing. Consider decreasing dose of Depakote to 250 mg in the morning and 500 mg at night. I discussed with patient's daughter, who agreed with decreasing the dose. Patient has not had any seizures for over 2 years. * Her TSH is 4.43 and free T4 0.76. Internal medicine to address abnormal thyroid functions. * Patient has history of vitamin B6 deficiency, we'll start vitamin B6 replacement 50 mg daily. * Patient had episodes of hypoglycemia with blood sugars going down as low as 47, and also running 50, 51. Suggest internal medicine or endocrinology to assess the cause of hypoglycemia. Patient could potentially be running low glucose at home as well. Patient is not on any oral hypoglycemic agent, or insulin. * Discussed with patient's daughter in detail. * Neurology will follow. Thank you for the consult. Time with Patient: Greater than 30 (Complexity, high.)
[2021-07-26 13:10] LABS: Glucose,Whole Blood 97 mg/dL (75-99)
[2021-07-26] MEDS: PYRIDOXINE 50 MG TAB PO SCH (14:27)
--- NOTE | 2021-07-26 14:33 | P.PN ---
<Brennan Hough - Last Filed: 07/26/21 19:15> Subjective Progress Note Date: 07/26/21 Hospital course: Patient is a 61-year-old female with a past medical history of MS, hypertension, hyperlipidemia, CVA with left-sided residual deficits, schizophrenia, chronic anemia, previous brain aneurysms, and seizures. She presented to the emergency department with a chief complaint of alteration in mental status. Patient is bedbound and reports greater than 6 months unable to bear weight or stand secondary to worsening MS and previous CVA. It is reported patient has had increased confusion over the past few days along with decreased oral intake. In the emergency department patient was found to have an acute kidney injury, hypoglycemic, anemic, thrombocytopenic. Patient was admitted under our services with consultation to neurology and nephrology. Physical exam: Vital signs reviewed and stable. General: Nontoxic, no distress and appears stated age. Patient very petite and very thin build. Derm: Skin warm and dry, normal coloration for ethnicity. Head: Atraumatic, normocephalic and symmetric. Eyes: EOMs intact, no lid lag, and anicteric sclera Mouth: no lip lesions, mucus membranes moist Cardiovascular: regular rate and rhythm with normal S1S2, no murmur, positive posterior tibial pulses bilaterally, and cap refill < 2 seconds. Lungs: Respirations even, regular, and unlabored on room air. Lungs CTA bilaterally, no rhonchi, no rales, no wheezing, and no accessory muscle usage. Abdominal: soft, nontender to palpation, no guarding, no appreciable organomegaly Ext: Patient able to move all extremities bilateral lower extremity weakness is equally present. Patient does appear slightly more week to left upper extremity when compared to right. No gross muscle atrophy, no edema, no contractures Neuro: Speech clear, face symmetrical and CN II-XII grossly intact with no noted focal neuro deficits Psych: Alert and oriented to person, place, time, and situation. Appropriate and pleasant affect. Assessment and Plan of Care: Acute metabolic encephalopathy secondary to hypoglycemia likely resulting from poor oral intake Anion gap metabolic acidosis likely secondary to starvation ketosis Acute kidney injury -Continue D5.45 at 75 mL's per hour. -Nephrology consulted -Bicarb 50 mg to infuse over one hour 2 doses ordered per recommendations from nephrology. -Continued close monitoring with repeat a.m. labs. -Hold nephrotoxic medications. -Continue to monitor blood glucose every 2 hours. -Obtain hemoglobin A1c -Close accurate of intake and output -Insulin level low at 1.9. -Renal ultrasound to be completed -Bladder management, Shrot currently in place upon arrival and was changed out by ER staff. Progressive neurologic decline unknown underlying cause rule out a less versus a mass -Neurology consultation -CT of the brain showed no acute new pathology however did show unchanged right MCA infarction, and periventricular patchy low attenuation lesions -Continue Neurochecks every 4 hours Mild transaminitis Thrombocytopenia, appears chronic in nature Chronic anemia likely secondary to chronic disease -Hold statin -Continue to monitor liver enzymes and CBC Chronic conditions Epileptic seizure, most recent breakthrough was 4 years ago, continue with Depakote, check Depakote level Multiple strokes and brain aneurysm, continue with neuro checks, continue home meds Hypertension continue home blood pressure meds Hyperlipidemia, hold statin due to elevated liver enzymes CODE STATUS: Full code DVT prophylaxis: Heparin Discussed with: Patient and RN Anticipated discharge date: Clinical course to determine Anticipated discharge place: Home versus SNF, clinical course to determine A total of 45 minutes was spent on the care of this complex patient more than 50% of the time was spent in counseling and care coordination. Objective - Vital Signs Vital signs: Vital Signs Temp 98.0 F 07/26/21 12:43 Pulse 64 07/26/21 13:26 Resp 16 07/26/21 13:26 BP 122/96 07/26/21 13:26 Pulse Ox 97 07/26/21 13:26 Intake & Output 07/25/21 07/26/21 07/26/21 18:59 06:59 18:59 Intake Total 1160 Output Total 720 Balance 440 Weight 47.627 kg 47.627 kg Intake: Oral 1160 Output: Urine 720 Other: Voiding Method Indwelling Catheter # Voids 1 # Bowel Movements 0 - Labs CBC & Chem 7: 07/26/21 10:20 07/26/21 08:12 Labs: Abnormal Lab Results - Last 24 Hours (Table) 07/25/21 07/25/21 07/25/21 Range/Units 18:11 18:11 18:11 Hgb 10.8 L (11.4-16.0) gm/dL MCHC 30.8 L (31.0-37.0) g/dL RDW 18.9 H (11.5-15.5) % Plt Count 84 L (150-450) k/uL Myelocytes # (Manual) (0) k/uL APTT 19.1 L (22.0-30.0) sec Chloride (98-107) mmol/L Carbon Dioxide (22-30) mmol/L BUN (7-17) mg/dL Creatinine (0.52-1.04) mg/dL Glucose (74-99) mg/dL POC Glucose (mg/dL) (75-99) mg/dL AST (14-36) U/L ALT (4-34) U/L Urine Protein Trace H (Negative) Urine Ketones Trace H (Negative) Urine Opiates Screen Detected H (NotDetected) 07/25/21 07/25/21 07/25/21 Range/Units 18:11 19:57 20:41 Hgb (11.4-16.0) gm/dL MCHC (31.0-37.0) g/dL RDW (11.5-15.5) % Plt Count (150-450) k/uL Myelocytes # (Manual) (0) k/uL APTT (22.0-30.0) sec Chloride (98-107) mmol/L Carbon Dioxide 18 L (22-30) mmol/L BUN 73 H (7-17) mg/dL Creatinine 3.01 H (0.52-1.04) mg/dL Glucose 51 L (74-99) mg/dL POC Glucose (mg/dL) 47 L 124 H (75-99) mg/dL AST 187 H (14-36) U/L ALT 66 H (4-34) U/L Urine Protein (Negative) Urine Ketones (Negative) Urine Opiates Screen (NotDetected) 07/25/21 07/26/21 07/26/21 Range/Units 21:57 08:12 08:53 Hgb (11.4-16.0) gm/dL MCHC (31.0-37.0) g/dL RDW (11.5-15.5) % Plt Count (150-450) k/uL Myelocytes # (Manual) (0) k/uL APTT (22.0-30.0) sec Chloride 113 H (98-107) mmol/L Carbon Dioxide 13 L (22-30) mmol/L BUN 62 H (7-17) mg/dL Creatinine 1.77 H (0.52-1.04) mg/dL Glucose 56 L (74-99) mg/dL POC Glucose (mg/dL) 73 L 50 L (75-99) mg/dL AST (14-36) U/L ALT (4-34) U/L Urine Protein (Negative) Urine Ketones (Negative) Urine Opiates Screen (NotDetected) 07/26/21 07/26/21 07/26/21 Range/Units 09:11 09:38 10:20 Hgb 10.8 L (11.4-16.0) gm/dL MCHC 30.6 L (31.0-37.0) g/dL RDW 19.2 H (11.5-15.5) % Plt Count 72 L (150-450) k/uL Myelocytes # (Manual) 0.05 H (0) k/uL APTT (22.0-30.0) sec Chloride (98-107) mmol/L Carbon Dioxide (22-30) mmol/L BUN (7-17) mg/dL Creatinine (0.52-1.04) mg/dL Glucose (74-99) mg/dL POC Glucose (mg/dL) 51 L 64 L (75-99) mg/dL AST (14-36) U/L ALT (4-34) U/L Urine Protein (Negative) Urine Ketones (Negative) Urine Opiates Screen (NotDetected) 07/26/21 Range/Units 10:37 Hgb (11.4-16.0) gm/dL MCHC (31.0-37.0) g/dL RDW (11.5-15.5) % Plt Count (150-450) k/uL Myelocytes # (Manual) (0) k/uL APTT (22.0-30.0) sec Chloride (98-107) mmol/L Carbon Dioxide (22-30) mmol/L BUN (7-17) mg/dL Creatinine (0.52-1.04) mg/dL Glucose (74-99) mg/dL POC Glucose (mg/dL) 74 L (75-99) mg/dL AST (14-36) U/L ALT (4-34) U/L Urine Protein (Negative) Urine Ketones (Negative) Urine Opiates Screen (NotDetected) <CristelaFrances A - Last Filed: 07/26/21 19:55> Subjective Brennan Hough NP rendered care for this patient independently, reviewed the findings and plan as documented in the note above. I did not physically speak with or examine the patient on this date. Objective - Vital Signs Vital signs: Vital Signs Temp 98.0 F 07/26/21 12:43 Pulse 64 07/26/21 13:26 Resp 16 07/26/21 13:26 BP 122/96 07/26/21 13:26 Pulse Ox 97 07/26/21 13:26 Intake & Output 07/26/21 07/26/21 07/27/21 06:59 18:59 06:59 Intake Total 1160 Output Total 720 Balance 440 Weight 47.627 kg Intake: Oral 1160 Output: Urine 720 Other: Voiding Method Indwelling Catheter # Voids 1 # Bowel Movements 0 - Labs CBC & Chem 7: 07/26/21 10:20 07/26/21 08:12 Labs: Abnormal Lab Results - Last 24 Hours (Table) 07/25/21 07/25/21 07/25/21 Range/Units 18:11 19:57 20:41 Hgb (11.4-16.0) gm/dL MCHC (31.0-37.0) g/dL RDW (11.5-15.5) % Plt Count 84 L (150-450) k/uL Myelocytes # (Manual) (0) k/uL Chloride (98-107) mmol/L Carbon Dioxide (22-30) mmol/L BUN (7-17) mg/dL Creatinine (0.52-1.04) mg/dL Glucose (74-99) mg/dL POC Glucose (mg/dL) 47 L 124 H (75-99) mg/dL Insulin Level (3.0-25.0) mIU/mL 07/25/21 07/26/21 07/26/21 Range/Units 21:57 08:12 08:53 Hgb (11.4-16.0) gm/dL MCHC (31.0-37.0) g/dL RDW (11.5-15.5) % Plt Count (150-450) k/uL Myelocytes # (Manual) (0) k/uL Chloride 113 H (98-107) mmol/L Carbon Dioxide 13 L (22-30) mmol/L BUN 62 H (7-17) mg/dL Creatinine 1.77 H (0.52-1.04) mg/dL Glucose 56 L (74-99) mg/dL POC Glucose (mg/dL) 73 L 50 L (75-99) mg/dL Insulin Level (3.0-25.0) mIU/mL 07/26/21 07/26/21 07/26/21 Range/Units 09:11 09:38 10:20 Hgb 10.8 L (11.4-16.0) gm/dL MCHC 30.6 L (31.0-37.0) g/dL RDW 19.2 H (11.5-15.5) % Plt Count 72 L (150-450) k/uL Myelocytes # (Manual) 0.05 H (0) k/uL Chloride (98-107) mmol/L Carbon Dioxide (22-30) mmol/L BUN (7-17) mg/dL Creatinine (0.52-1.04) mg/dL Glucose (74-99) mg/dL POC Glucose (mg/dL) 51 L 64 L (75-99) mg/dL Insulin Level (3.0-25.0) mIU/mL 07/26/21 07/26/21 07/26/21 Range/Units 10:20 10:37 14:59 Hgb (11.4-16.0) gm/dL MCHC (31.0-37.0) g/dL RDW (11.5-15.5) % Plt Count (150-450) k/uL Myelocytes # (Manual) (0) k/uL Chloride (98-107) mmol/L Carbon Dioxide (22-30) mmol/L BUN (7-17) mg/dL Creatinine (0.52-1.04) mg/dL Glucose (74-99) mg/dL POC Glucose (mg/dL) 74 L 106 H (75-99) mg/dL Insulin Level 1.9 L (3.0-25.0) mIU/mL 07/26/21 Range/Units 19:23 Hgb (11.4-16.0) gm/dL MCHC (31.0-37.0) g/dL RDW (11.5-15.5) % Plt Count (150-450) k/uL Myelocytes # (Manual) (0) k/uL Chloride (98-107) mmol/L Carbon Dioxide (22-30) mmol/L BUN (7-17) mg/dL Creatinine (0.52-1.04) mg/dL Glucose (74-99) mg/dL POC Glucose (mg/dL) 103 H (75-99) mg/dL Insulin Level (3.0-25.0) mIU/mL Microbiology - Last 24 Hours (Table) 07/25/21 19:15 Blood Culture Gram Stain - Preliminary Blood 07/25/21 19:15 Blood Culture - Final Blood
[2021-07-26] MEDS ORDERED: SODIUM BICARB 8.4% 50 ML SYR (1 MEQ/ML) IV SCH (14:45)
[2021-07-26 15:01] LABS: Glucose,Whole Blood 106 mg/dL (75-99)
[2021-07-26] MEDS ORDERED: SODIUM BICARBONATE IV SCH (15:30)
[2021-07-26 17:00] LABS: Glucose,Whole Blood 93 mg/dL (75-99)
[2021-07-26] MEDS: SODIUM BICARB IV SCH (17:00)
[2021-07-26 19:25] LABS: Glucose,Whole Blood 103 mg/dL (75-99)
[2021-07-26 22:48] LABS: Glucose,Whole Blood 102 mg/dL (75-99)
[2021-07-27 00:48] LABS: Glucose,Whole Blood 108 mg/dL (75-99)
[2021-07-27 02:43] LABS: Glucose,Whole Blood 88 mg/dL (75-99)
[2021-07-27 05:41] LABS: Glucose,Whole Blood 114 mg/dL (75-99)
[2021-07-27 06:31] LABS: Anisocytosis Slight; HCT 28.6 % (34.0-46.0); Hypochromasia Slight; MCH 25.6 pg (25.0-35.0); MCHC 30.6 g/dL (31.0-37.0); MCV 83.7 fL (80.0-100.0); Mean Platelet Volume 7.7; Microcytosis Slight; RBC 3.42 m/uL (3.80-5.40); RDW 19.4 % (11.5-15.5); WBC 4.7 k/uL (3.8-10.6)
[2021-07-27 06:33] LABS: HGB 8.8 gm/dL (11.4-16.0); Platelet Count 52 k/uL (150-450)
[2021-07-27 07:06] LABS: Glucose,Whole Blood 98 mg/dL (75-99)
[2021-07-27] MEDS ORDERED: VANCOMYCIN 750 MG in SODIUM CHLORIDE 0.9% 250 ML IVPB ONE (08:00)
[2021-07-27] MEDS ORDERED: DIVALPROEX 500 MG TABLET.DR PO SCH ×2 (09:00→21:00)
[2021-07-27] MEDS ORDERED: VANCOMYCIN IV PER PHARMACY 1 EACH MISC MISCELLANE SCH (09:00)
[2021-07-27 09:13] LABS: ALT 54 U/L (8-44); AST 127 U/L (13-35); African American GFR (CKD) 50.6 (60.0-200.0); Albumin 2.7 g/dL (3.8-4.9); Albumin/Globulin Ratio 1.08 (1.60-3.17); Alkaline Phosphatase 76 U/L (41-126); BUN/Creat Ratio 35.92 Ratio (12.00-20.00); Blood Urea Nitrogen 46.7 mg/dL (9.0-27.0); Calcium 8.3 mg/dL (8.7-10.3); Carbon Dioxide 15.2 mmol/L (20.0-27.5); Chloride 114 mmol/L (96-109); Globulin 2.5 g/dL (1.6-3.3); Glucose 107 mg/dL (70-110); Magnesium 1.7 mg/dL (1.5-2.4); Non-African American GFR(CKD) 43.6 (60.0-200.0); Sodium 143 mmol/L (135-145); Total Bilirubin <0.20 mg/dL (0.30-1.20); Total Protein 5.2 g/dL (6.2-8.2)
--- NOTE | 2021-07-27 09:30 | P.PN ---
Subjective Patient is seen in follow-up for acute kidney injury. Renal function improving. Oral intake is poor. Resting in bed. Receiving IV fluids. Not a reliable historian. Vital signs are stable. General: Resting in bed. HEENT: Head exam is unremarkable. LUNGS: Breath sounds decreased. HEART: Rate and Rhythm are regular. ABDOMEN: Abdominal distention. EXTREMITITES: No edema. Objective - Vital Signs Vital signs: Vital Signs Temp 97.7 F 07/27/21 04:52 Pulse 73 07/27/21 04:52 Resp 16 07/27/21 04:52 BP 106/73 07/27/21 04:52 Pulse Ox 100 07/27/21 04:52 Intake & Output 07/26/21 07/27/21 07/27/21 18:59 06:59 18:59 Intake Total 1160 950 Output Total 720 700 Balance 440 250 Weight 47.627 kg Intake: Intake, IV Titration 750 Amount Dextrose 5%-0.45% NaCl 1, 750 000 ml @ 75 mls/hr IV . [id number] [facility] Rx#:[id number] Oral 1160 200 Output: Urine 720 700 Uretheral (Short) 700 Other: Voiding Method Indwelling Catheter Indwelling Catheter # Voids 1 # Bowel Movements 0 - Labs CBC & Chem 7: 07/27/21 06:12 07/27/21 06:12 Labs: Abnormal Lab Results - Last 24 Hours (Table) 07/26/21 07/26/21 07/26/21 Range/Units 08:12 09:38 10:20 RBC (3.80-5.40) m/uL Hgb 10.8 L (11.4-16.0) gm/dL Hct (34.0-46.0) % MCHC 30.6 L (31.0-37.0) g/dL RDW 19.2 H (11.5-15.5) % Plt Count 72 L (150-450) k/uL Myelocytes # (Manual) 0.05 H (0) k/uL Chloride 113 H (98-107) mmol/L Carbon Dioxide 13 L (22-30) mmol/L BUN 62 H (7-17) mg/dL Creatinine 1.77 H (0.52-1.04) mg/dL Est GFR (CKD-EPI)AfAm (60.0-200.0) Est GFR (CKD-EPI)NonAf (60.0-200.0) BUN/Creatinine Ratio (12.00-20.00) Ratio Glucose 56 L (74-99) mg/dL POC Glucose (mg/dL) 64 L (75-99) mg/dL Insulin Level (3.0-25.0) mIU/mL Calcium (8.7-10.3) mg/dL Total Bilirubin (0.30-1.20) mg/dL AST (13-35) U/L ALT (8-44) U/L Total Protein (6.2-8.2) g/dL Albumin (3.8-4.9) g/dL Albumin/Globulin Ratio (1.60-3.17) g/dL 07/26/21 07/26/21 07/26/21 Range/Units 10:20 10:37 14:59 RBC (3.80-5.40) m/uL Hgb (11.4-16.0) gm/dL Hct (34.0-46.0) % MCHC (31.0-37.0) g/dL RDW (11.5-15.5) % Plt Count (150-450) k/uL Myelocytes # (Manual) (0) k/uL Chloride (98-107) mmol/L Carbon Dioxide (22-30) mmol/L BUN (7-17) mg/dL Creatinine (0.52-1.04) mg/dL Est GFR (CKD-EPI)AfAm (60.0-200.0) Est GFR (CKD-EPI)NonAf (60.0-200.0) BUN/Creatinine Ratio (12.00-20.00) Ratio Glucose (74-99) mg/dL POC Glucose (mg/dL) 74 L 106 H (75-99) mg/dL Insulin Level 1.9 L (3.0-25.0) mIU/mL Calcium (8.7-10.3) mg/dL Total Bilirubin (0.30-1.20) mg/dL AST (13-35) U/L ALT (8-44) U/L Total Protein (6.2-8.2) g/dL Albumin (3.8-4.9) g/dL Albumin/Globulin Ratio (1.60-3.17) g/dL 07/26/21 07/26/21 07/27/21 Range/Units 19:23 22:46 00:46 RBC (3.80-5.40) m/uL Hgb (11.4-16.0) gm/dL Hct (34.0-46.0) % MCHC (31.0-37.0) g/dL RDW (11.5-15.5) % Plt Count (150-450) k/uL Myelocytes # (Manual) (0) k/uL Chloride (98-107) mmol/L Carbon Dioxide (22-30) mmol/L BUN (7-17) mg/dL Creatinine (0.52-1.04) mg/dL Est GFR (CKD-EPI)AfAm (60.0-200.0) Est GFR (CKD-EPI)NonAf (60.0-200.0) BUN/Creatinine Ratio (12.00-20.00) Ratio Glucose (74-99) mg/dL POC Glucose (mg/dL) 103 H 102 H 108 H (75-99) mg/dL Insulin Level (3.0-25.0) mIU/mL Calcium (8.7-10.3) mg/dL Total Bilirubin (0.30-1.20) mg/dL AST (13-35) U/L ALT (8-44) U/L Total Protein (6.2-8.2) g/dL Albumin (3.8-4.9) g/dL Albumin/Globulin Ratio (1.60-3.17) g/dL 07/27/21 07/27/21 07/27/21 Range/Units 05:40 06:12 06:12 RBC 3.42 L (3.80-5.40) m/uL Hgb 8.8 L D (11.4-16.0) gm/dL Hct 28.6 L (34.0-46.0) % MCHC 30.6 L (31.0-37.0) g/dL RDW 19.4 H (11.5-15.5) % Plt Count 52 L (150-450) k/uL Myelocytes # (Manual) (0) k/uL Chloride 114 H (98-107) mmol/L Carbon Dioxide 15.2 L (22-30) mmol/L BUN 46.7 H (7-17) mg/dL Creatinine (0.52-1.04) mg/dL Est GFR (CKD-EPI)AfAm 50.6 L (60.0-200.0) Est GFR (CKD-EPI)NonAf 43.6 L (60.0-200.0) BUN/Creatinine Ratio 35.92 H (12.00-20.00) Ratio Glucose (74-99) mg/dL POC Glucose (mg/dL) 114 H (75-99) mg/dL Insulin Level (3.0-25.0) mIU/mL Calcium 8.3 L (8.7-10.3) mg/dL Total Bilirubin <0.20 L (0.30-1.20) mg/dL AST 127 H (13-35) U/L ALT 54 H (8-44) U/L Total Protein 5.2 L (6.2-8.2) g/dL Albumin 2.7 L (3.8-4.9) g/dL Albumin/Globulin Ratio 1.08 L (1.60-3.17) g/dL Microbiology - Last 24 Hours (Table) 07/25/21 19:00 Blood Culture Gram Stain - Preliminary Blood 07/25/21 19:15 Blood Culture Gram Stain - Preliminary Blood Blood Culture - Preliminary Staphylococcus epidermidis 07/25/21 19:00 Blood Culture - Final Blood 07/25/21 19:15 Blood Culture - Final Blood Assessment and Plan Plan: Assessment: 1. Acute kidney injury mostly prerenal secondary to hypovolemia and poor intake. Creatinine 3.01 on admission and is 1.3 today. Baseline creatinine near 1. UA fairly benign. 2. Staph epi bacteremia. 3. Metabolic acidosis secondary to acute kidney injury and starvation ketosis. Plan: Change IV fluids to isotonic sodium bicarbonate drip. Encouraged oral intake. Avoid nephrotoxins. Repeat labs in the morning.
[2021-07-27 09:32] LABS: Glucose,Whole Blood 110 mg/dL (75-99)
[2021-07-27] MEDS: PYRIDOXINE 50 MG TAB PO SCH (09:39)
[2021-07-27] MEDS: ASPIRIN 81 MG PO SCH (09:39)
[2021-07-27] MEDS: SERTRALINE 100 MG TAB PO SCH (09:39)
[2021-07-27] MEDS: METOPROLOL TARTRATE 50 MG TAB PO SCH ×2 (09:39→21:31)
[2021-07-27] MEDS: PANTOPRAZOLE 40 MG TABLET PO SCH (09:39)
[2021-07-27] MEDS: HEPARIN SODIUM,PORCINE/PF 5,000 UNIT/0.5 ML SYRINGE SQ SCH ×2 (09:40→21:31)
[2021-07-27] MEDS: DEXTROSE 5% IN WATER 1,000 ML with SODIUM BICARB (1 MEQ/ML) 150 ML IV SCH ×2 (10:39→23:57)
[2021-07-27] MEDS: DIVALPROEX 250 MG TABLET.DR PO SCH (10:39)
[2021-07-27 11:35] LABS: Glucose,Whole Blood 94 mg/dL (75-99)
[2021-07-27 12:44] LABS: Glucose,Whole Blood 95 mg/dL (75-99)
[2021-07-27 13:09] VITALS: BMI 19.2
[2021-07-27 15:00] LABS: Glucose,Whole Blood 69 mg/dL (75-99)
[2021-07-27 15:52] LABS: Glucose,Whole Blood 86 mg/dL (75-99)
[2021-07-27 17:19] LABS: Glucose,Whole Blood 84 mg/dL (75-99)
--- NOTE | 2021-07-27 18:35 | P.PN ---
Subjective Progress Note Date: 07/27/21 Patient was seen for a follow-up. Patient is laying comfortably in the bed. Patient apparently had developed dysphagia, hard time swallowing. Patient states that she has difficulty with handwriting. Could not tell if her size of handwriting is getting smaller. Telemetry monitoring in the last [address] segment depression, sinus rhythm with sinus bradycardia. Objective - Vital Signs Vital signs: Vital Signs Temp 97.7 F 07/27/21 04:52 Pulse 73 07/27/21 04:52 Resp 16 07/27/21 04:52 BP 106/73 07/27/21 04:52 Pulse Ox 100 07/27/21 04:52 Intake & Output 07/26/21 07/27/21 07/27/21 18:59 06:59 18:59 Intake Total 1160 950 Output Total 720 700 Balance 440 250 Weight 47.627 kg Intake: Intake, IV Titration 750 Amount Dextrose 5%-0.45% NaCl 1, 750 000 ml @ 75 mls/hr IV . [id number] [facility] Rx#:[id number] Oral 1160 200 Output: Urine 720 700 Uretheral (Short) 700 Other: Voiding Method Indwelling Catheter Indwelling Catheter # Voids 1 # Bowel Movements 0 - Exam Patient is awake, but slow mentation. Patient is bradykinetic. Patient speaks with significant hypomimia, with low volume voice. Patient has tremors at rest of the right hand. Her left arm is spastic. Tone is mild to moderately increased in the right. - Labs CBC & Chem 7: 07/27/21 06:12 07/27/21 06:12 Labs: Abnormal Lab Results - Last 24 Hours (Table) 07/26/21 07/26/21 07/26/21 Range/Units 08:12 09:38 10:20 RBC (3.80-5.40) m/uL Hgb 10.8 L (11.4-16.0) gm/dL Hct (34.0-46.0) % MCHC 30.6 L (31.0-37.0) g/dL RDW 19.2 H (11.5-15.5) % Plt Count 72 L (150-450) k/uL Myelocytes # (Manual) 0.05 H (0) k/uL Chloride 113 H (98-107) mmol/L Carbon Dioxide 13 L (22-30) mmol/L BUN 62 H (7-17) mg/dL Creatinine 1.77 H (0.52-1.04) mg/dL Est GFR (CKD-EPI)AfAm (60.0-200.0) Est GFR (CKD-EPI)NonAf (60.0-200.0) BUN/Creatinine Ratio (12.00-20.00) Ratio Glucose 56 L (74-99) mg/dL POC Glucose (mg/dL) 64 L (75-99) mg/dL Insulin Level (3.0-25.0) mIU/mL Calcium (8.7-10.3) mg/dL Total Bilirubin (0.30-1.20) mg/dL AST (13-35) U/L ALT (8-44) U/L Total Protein (6.2-8.2) g/dL Albumin (3.8-4.9) g/dL Albumin/Globulin Ratio (1.60-3.17) g/dL 07/26/21 07/26/21 07/26/21 Range/Units 10:20 10:37 14:59 RBC (3.80-5.40) m/uL Hgb (11.4-16.0) gm/dL Hct (34.0-46.0) % MCHC (31.0-37.0) g/dL RDW (11.5-15.5) % Plt Count (150-450) k/uL Myelocytes # (Manual) (0) k/uL Chloride (98-107) mmol/L Carbon Dioxide (22-30) mmol/L BUN (7-17) mg/dL Creatinine (0.52-1.04) mg/dL Est GFR (CKD-EPI)AfAm (60.0-200.0) Est GFR (CKD-EPI)NonAf (60.0-200.0) BUN/Creatinine Ratio (12.00-20.00) Ratio Glucose (74-99) mg/dL POC Glucose (mg/dL) 74 L 106 H (75-99) mg/dL Insulin Level 1.9 L (3.0-25.0) mIU/mL Calcium (8.7-10.3) mg/dL Total Bilirubin (0.30-1.20) mg/dL AST (13-35) U/L ALT (8-44) U/L Total Protein (6.2-8.2) g/dL Albumin (3.8-4.9) g/dL Albumin/Globulin Ratio (1.60-3.17) g/dL 07/26/21 07/26/21 07/27/21 Range/Units 19:23 22:46 00:46 RBC (3.80-5.40) m/uL Hgb (11.4-16.0) gm/dL Hct (34.0-46.0) % MCHC (31.0-37.0) g/dL RDW (11.5-15.5) % Plt Count (150-450) k/uL Myelocytes # (Manual) (0) k/uL Chloride (98-107) mmol/L Carbon Dioxide (22-30) mmol/L BUN (7-17) mg/dL Creatinine (0.52-1.04) mg/dL Est GFR (CKD-EPI)AfAm (60.0-200.0) Est GFR (CKD-EPI)NonAf (60.0-200.0) BUN/Creatinine Ratio (12.00-20.00) Ratio Glucose (74-99) mg/dL POC Glucose (mg/dL) 103 H 102 H 108 H (75-99) mg/dL Insulin Level (3.0-25.0) mIU/mL Calcium (8.7-10.3) mg/dL Total Bilirubin (0.30-1.20) mg/dL AST (13-35) U/L ALT (8-44) U/L Total Protein (6.2-8.2) g/dL Albumin (3.8-4.9) g/dL Albumin/Globulin Ratio (1.60-3.17) g/dL 07/27/21 07/27/21 07/27/21 Range/Units 05:40 06:12 06:12 RBC 3.42 L (3.80-5.40) m/uL Hgb 8.8 L D (11.4-16.0) gm/dL Hct 28.6 L (34.0-46.0) % MCHC 30.6 L (31.0-37.0) g/dL RDW 19.4 H (11.5-15.5) % Plt Count 52 L (150-450) k/uL Myelocytes # (Manual) (0) k/uL Chloride 114 H (98-107) mmol/L Carbon Dioxide 15.2 L (22-30) mmol/L BUN 46.7 H (7-17) mg/dL Creatinine (0.52-1.04) mg/dL Est GFR (CKD-EPI)AfAm 50.6 L (60.0-200.0) Est GFR (CKD-EPI)NonAf 43.6 L (60.0-200.0) BUN/Creatinine Ratio 35.92 H (12.00-20.00) Ratio Glucose (74-99) mg/dL POC Glucose (mg/dL) 114 H (75-99) mg/dL Insulin Level (3.0-25.0) mIU/mL Calcium 8.3 L (8.7-10.3) mg/dL Total Bilirubin <0.20 L (0.30-1.20) mg/dL AST 127 H (13-35) U/L ALT 54 H (8-44) U/L Total Protein 5.2 L (6.2-8.2) g/dL Albumin 2.7 L (3.8-4.9) g/dL Albumin/Globulin Ratio 1.08 L (1.60-3.17) g/dL 07/27/21 Range/Units 09:30 RBC (3.80-5.40) m/uL Hgb (11.4-16.0) gm/dL Hct (34.0-46.0) % MCHC (31.0-37.0) g/dL RDW (11.5-15.5) % Plt Count (150-450) k/uL Myelocytes # (Manual) (0) k/uL Chloride (98-107) mmol/L Carbon Dioxide (22-30) mmol/L BUN (7-17) mg/dL Creatinine (0.52-1.04) mg/dL Est GFR (CKD-EPI)AfAm (60.0-200.0) Est GFR (CKD-EPI)NonAf (60.0-200.0) BUN/Creatinine Ratio (12.00-20.00) Ratio Glucose (74-99) mg/dL POC Glucose (mg/dL) 110 H (75-99) mg/dL Insulin Level (3.0-25.0) mIU/mL Calcium (8.7-10.3) mg/dL Total Bilirubin (0.30-1.20) mg/dL AST (13-35) U/L ALT (8-44) U/L Total Protein (6.2-8.2) g/dL Albumin (3.8-4.9) g/dL Albumin/Globulin Ratio (1.60-3.17) g/dL Microbiology - Last 24 Hours (Table) 07/25/21 19:00 Blood Culture Gram Stain - Preliminary Blood 07/25/21 19:15 Blood Culture Gram Stain - Preliminary Blood Blood Culture - Preliminary Staphylococcus epidermidis 07/25/21 19:00 Blood Culture - Final Blood 07/25/21 19:15 Blood Culture - Final Blood Assessment and Plan Assessment: * Generalized weakness, decreased mobility, ambulation, probably multifactorial as reasons mentioned below. It appears patient may be coming up with Parkinson's disease. Patient has tremors at rest involving the right arm, bradykinesia, moderately increased tone involving the (healthy right side). However at this time patient is also ?septic, as her blood cultures have grown Staphylococcus epidermidis. Patient has been started on vancomycin. ID consult pending. * Acute kidney injury, likely due to very poor oral intake and dehydration, which seems to be improving now. 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 * Vitamin B6 deficiency * Seizure disorder * History of brain aneurysms Plan: * Patient's weakness, dysphagia, bradykinesia, increased tone and some resting tremors are suggestive of possible upcoming Parkinson's. Patient may benefit from outpatient NEY Scan to confirm Parkinson's. At this time Parkinson's is difficult to diagnose, as patient has bacteremia. * Computed tomography scan of the head of 07/25/2021, showed no acute process/CVA, when compared with computed tomography scan of 04/12/2021. No new stroke. * Patient's Depakote level was quite high 107.8 yesterday, today is 77.3. High Depakote level can produce psychomotor retardation, and mental slowing. Patient's dose of Depakote decreased from 500 mg twice a day to Depakote 250 mg in the morning and 500 mg at night. Patient has not had any seizures for over 2 years, per patient's daughter. * Her TSH is 4.43 and free T4 0.76. Internal medicine to address abnormal thyroid functions. * Patient has history of vitamin B6 deficiency, we'll start vitamin B6 replacement 50 mg daily. * Patient had episodes of hypoglycemia with blood sugars going down as low as 47, and also running 50, 51. Suggest internal medicine or endocrinology to assess the cause of hypoglycemia. Patient could potentially be running low glucose at home as well. Patient is not on any oral hypoglycemic agent, or insulin. Patient currently on D5. Her hemoglobin A1c is 4.7. * Patient has anemia with hemoglobin 8.8. Her platelets are also low 52, which could be related to a side effect of Depakote. We will recheck Depakote level in a.m.
[2021-07-27 19:27] LABS: Glucose,Whole Blood 122 mg/dL (75-99)
[2021-07-27] MEDS: DIVALPROEX 500 MG TABLET.DR PO SCH (21:31)
[2021-07-27 22:14] LABS: Glucose,Whole Blood 83 mg/dL (75-99)
--- NOTE | 2021-07-27 23:22 | PN ---
PROGRESS NOTE Patient came in with altered mental status. She was found to have elevated Depakote levels, for which Depakote dose was cut down by Neurology. She is on subcutaneous heparin. She was started on Synthroid for borderline hypothyroidism, which could be worsening her dementia. She is on Lopressor 100 b.i.d. for hypertension, Protonix for GERD, 50 mg a day for B6 deficiency, Zoloft for depression, vancomycin for Gram- positive cocci in the blood stream, for which repeat blood cultures. Dr. Tristan consult is pending. Psych: Alert and oriented x3. Cardiovascular S1, S2. General: She seems a little bit groggy, but she is giving appropriate answers like her normal baseline. Hematology negative Homans. GI soft. ASSESSMENT: 1. Altered mental status. 2. Prerenal renal azotemia. 3. Dehydration. 4. Elevated Depakote levels with a history of seizures. 5. Hypertension. 6. Hypothyroidism. 7. B6 deficiency. 8. Gastroesophageal reflux disease. 9. Depression. See medication changes. Continue with PT, OT. Continue fluid rehydration. Gram-positive cocci bacteremia, possibly a contamination. Will repeat blood cultures. Get Dr. Tristan. Continue vancomycin. MMODL / IJN: [id number] /
[2021-07-28] MEDS ORDERED: VANCOMYCIN 750 MG in SODIUM CHLORIDE 0.9% 250 ML IVPB SCH ×2
[2021-07-28 00:10] LABS: Glucose,Whole Blood 84 mg/dL (75-99)
[2021-07-28 02:04] LABS: Glucose,Whole Blood 91 mg/dL (75-99)
[2021-07-28 04:06] LABS: Glucose,Whole Blood 108 mg/dL (75-99)
[2021-07-28] MEDS: LEVOTHYROXINE 50 MCG TAB PO SCH (05:39)
[2021-07-28 06:02] LABS: Glucose,Whole Blood 100 mg/dL (75-99)
[2021-07-28 07:52] LABS: Anisocytosis Slight; Basophils % (A) 0 %; Eosinophils # (A) 0.1 k/uL (0-0.7); Eosinophils % (A) 2 %; HCT 27.9 % (34.0-46.0); HGB 8.7 gm/dL (11.4-16.0); Hypochromasia Slight; Lymphocytes # (A) 2.2 k/uL (1.0-4.8); Lymphocytes % (A) 43 %; MCH 25.7 pg (25.0-35.0); MCHC 31.1 g/dL (31.0-37.0); MCV 82.6 fL (80.0-100.0); Mean Platelet Volume 7.4; Microcytosis Slight; Monocytes # (A) 0.4 k/uL (0-1.0); Monocytes % (A) 8 %; Neutrophils # (A) 2.3 k/uL (1.3-7.7); Neutrophils % (A) 46 %; RBC 3.37 m/uL (3.80-5.40); RDW 19.7 % (11.5-15.5); Reticulocyte % 0.6 % (0.5-2.0)
[2021-07-28 08:00] LABS: Platelet Count 53 k/uL (150-450)
[2021-07-28 08:03] LABS: Glucose,Whole Blood 103 mg/dL (75-99)
--- NOTE | 2021-07-28 08:45 | CT ---
EXAMINATION TYPE: CT chest wo con DATE OF EXAM: 07/28/2021 COMPARISON: 07/25/2021 chest x-ray, 02/09/[address] HISTORY: abn CXR CT DLP: 191 mGycm, Automated exposure control for dose reduction was used. CONTRAST: Performed injected with 0 mL of Isovue 300. TECHNIQUE: Axial images were obtained at 5 mm thick sections. Reconstructed images are reviewed on [employer] computer in the coronal plane. FINDINGS: Portion of the thyroid visualized is normal. Small bilateral pleural effusions are present. Some atelectasis or infiltrate may be at the left base . No enlarged mediastinal or hilar adenopathy is evident. The ascending aorta diameter at the level o f the main pulmonary artery is 2.0 cm. The main pulmonary artery diameter at the bifurcation is 2.0 cm. Coronary artery calcification is present Limited CT sections are obtained through the upper abdomen. Abdomen is essentially unremarkable. IMPRESSIONS: 1. Small bilateral pleural effusions with scattered lung infiltrates greater at the left base and femi gula pericolic for atelectasis and pneumonia. Consider atypical pneumonia.
[2021-07-28] MEDS ORDERED: DIVALPROEX 250 MG TABLET.DR PO SCH (09:00)
--- NOTE | 2021-07-28 09:33 | P.PN ---
Subjective Patient is seen in follow-up for acute kidney injury. Renal function improving. Oral intake is poor. Resting in bed. Receiving IV fluids. Not a reliable historian. No changes overnight. Vital signs are stable. General: Resting in bed. HEENT: Head exam is unremarkable. LUNGS: Breath sounds decreased. HEART: Rate and Rhythm are regular. ABDOMEN: Abdominal distention. EXTREMITITES: No edema. Objective - Vital Signs Vital signs: Vital Signs Temp 98.3 F 07/28/21 05:00 Pulse 82 07/28/21 05:00 Resp 18 07/28/21 05:00 BP 105/67 07/28/21 05:00 Pulse Ox 96 07/28/21 05:00 Intake & Output 07/27/21 07/28/21 07/28/21 18:59 06:59 18:59 Intake Total 900 Output Total 600 Balance 300 Weight 47.627 kg Intake: Intake, IV Titration 900 Amount Dextrose 5% in Water 1, 900 000 ml @ 80 mls/hr IV . [id number] [facility] with Sodium Bicarb (1 Meq/ml) 150 ml Rx#:[id number] Oral 0 Output: Urine 600 Other: Voiding Method Indwelling Catheter Indwelling Catheter # Bowel Movements 4 - Labs CBC & Chem 7: 07/28/21 07:02 07/27/21 06:12 Labs: Abnormal Lab Results - Last 24 Hours (Table) 07/27/21 07/27/21 07/27/21 Range/Units 09:30 14:56 19:19 RBC (3.80-5.40) m/uL Hgb (11.4-16.0) gm/dL Hct (34.0-46.0) % RDW (11.5-15.5) % Plt Count (150-450) k/uL POC Glucose (mg/dL) 110 H 69 L 122 H (75-99) mg/dL 07/28/21 07/28/21 07/28/21 Range/Units 03:56 05:55 07:02 RBC 3.37 L (3.80-5.40) m/uL Hgb 8.7 L (11.4-16.0) gm/dL Hct 27.9 L (34.0-46.0) % RDW 19.7 H (11.5-15.5) % Plt Count 53 L (150-450) k/uL POC Glucose (mg/dL) 108 H 100 H (75-99) mg/dL 07/28/21 Range/Units 08:01 RBC (3.80-5.40) m/uL Hgb (11.4-16.0) gm/dL Hct (34.0-46.0) % RDW (11.5-15.5) % Plt Count (150-450) k/uL POC Glucose (mg/dL) 103 H (75-99) mg/dL Microbiology - Last 24 Hours (Table) 07/25/21 19:15 Blood Culture Gram Stain - Preliminary Blood Blood Culture - Preliminary Staphylococcus epidermidis 07/25/21 19:00 Blood Culture Gram Stain - Preliminary Blood Assessment and Plan Plan: Assessment: 1. Acute kidney injury mostly prerenal secondary to hypovolemia and poor intake. Creatinine 3.01 on admission and down to 1.3 yesterday. Baseline creatinine near 1. UA fairly benign. 2. Staph epi bacteremia. On antibiotics. 3. Metabolic acidosis secondary to acute kidney injury and starvation ketosis. Maintain on bicarb drip. 4. Anemia. Rule out iron deficiency. Plan: Maintain bicarb drip. Encouraged oral intake. Avoid nephrotoxins. Follow-up morning labs.
[2021-07-28 10:21] LABS: Glucose,Whole Blood 97 mg/dL (75-99)
[2021-07-28 11:24] LABS: % Iron Saturation 15.75 (12.00-45.00); Magnesium 1.5 mg/dL (1.5-2.4)
[2021-07-28 11:28] LABS: Albumin 2.5 g/dL (3.8-4.9); Albumin/Globulin Ratio 1.04 (1.60-3.17); Anion Gap 11.7 mmol/L (10.00-18.00); BUN/Creat Ratio 29.81 Ratio (12.00-20.00); Blood Urea Nitrogen 31.9 mg/dL (9.0-27.0); Calcium 8.2 mg/dL (8.7-10.3); Carbon Dioxide 25.4 mmol/L (20.0-27.5); Globulin 2.4 g/dL (1.6-3.3); Non-African American GFR(CKD) 55.2 (60.0-200.0); Total Bilirubin 0.2 mg/dL (0.30-1.20); Total Protein 4.9 g/dL (6.2-8.2)
[2021-07-28 11:31] LABS: C-Peptide 1.66 ng/mL (0.81-3.85)
--- NOTE | 2021-07-28 11:32 | P.CONS ---
History of Present Illness - Reason for Consult Consult date: 07/27/21 + blood cultures Requesting physician: Mohit Harley - Chief Complaint mental status changes x few days - History of Present Illness History of present illness : Patient is a 61-year-old -[place]gas[place] female with a past medical history difficult for multiple sclerosis and brain aneurysm hypertension seizure disorder, who was brought into the hospital 2 days ago for evaluation of worsening mental status changes patient did become unresponsive at home and the son-in-law brought the patient to the hospital he did indicated to the ER physician and patient did have a significant decline in neurological status over the last few months unable to walk or stand up having increased sensitive to touch lower extremity and apparently patient has been worked up in the outpatient setting for possible multiple sclerosis as the patient did have muscle and nerve conduction study by her neurologist Dr. Yang patient on presentation to the hospital was afebrile and no fever has been recorded subsequently patient did have a normal white count creatinine was normal AST ALT was mildly elevated urine is negative drug screen was positive for opiates biswas PCR was negative patient did have a chest x-ray hypoventilatory changes prominent patchy lower lobe opacities some of which represent atelectasis patient did have a CT of the chest small bilateral pleural effusion with sc attered lung infiltrates greater in the lung bases and lingula correlate for atelectasis or pneumonia patient did have blood cultures nonischemic positive with gram-positive patient was started on vancomycin infectious disease was consulted for further management of antibiotic therapy Review of system: CONSTITUTIONAL: Positive for weakness denies fever. EYES: No complaint. ENT: No complaint. RESPIRATORY: No complaint. CARDIOVASCULAR: No complaint. GENITOURINARY: No complaint. GASTROINTESTINAL: No complaint. MUSCULOSKELETAL: No complaint. INTEGUMENTARY: No complaint. PSYCHOLOGIC: No complaint. ENDOCRINE: No complaint. NEUROLOGIC as per history of present illness. Past medical history : Reviewed, documented below Past surgical history : Reviewed, documented below Social history: Reviewed, documented below Medications: Reviewed, as documented below EXAMINATION: Vital sigans= Reviewed and documented below GENERAL DESCRIPTION: Middle-aged female lying in bed, no distress. No tachypnea or accessory muscle of respiration use. HEENT: Shows Pallor , no scleral icterus. Oral mucous membrane is dry. NECK: Trachea central, no thyromegaly. LUNGS: Unlabored breathing. Clear to auscultation anteriorly. No wheeze or crackle. HEART: S1, S2, regular rate and rhythm. ABDOMEN: Soft, no tenderness , guarding or rigidity EXTREMITIES: No edema of feet. SKIN: No rash, no masses palpable. NEUROLOGICAL: The patient is awake, alert, oriented x2, mood and affect normal. LABS AND RADIOLOGY: Reviewed results see below Assessment : Patient presented to hospital with generalized weakness and mental status changes in this patient history of multiple CVAs and history of brain aneurysm, patient did not have any fever during this hospital stay and did have a normal white count now with the blood cultures coming back positive with gram- positive cocci question of possible skin contaminant as patient complains of disease to go along with it Plan: 1-we will wait for the final ID this pathogen if staph epi will be disregarded as possible contaminant 2-blood cultures will be repeated to document clearance 3-we will also obtain a CRP and procalcitonin level We will follow on clinical condition and cultures to further adjust medication if needed Thank you for this consultation we will follow the patient along with you Past Medical History Past Medical History: CVA/TIA, Hyperlipidemia, Hypertension Additional Past Medical History / Comment(s): ANEMIA, 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 gout, PANCREATITIS, pseudoseizures. UTI, gallstones, LIPS AND ONE HAND SHAKES SOMETIMES, hx multiple brain aneursyms History of Any Multi-Drug Resistant Organisms: ESBL Year Discovered:: 03/18/18 ESBL E.coli MDRO Source:: Urine Past Surgical History: Section, Cholecystectomy, Orthopedic Surgery Additional Past Surgical History / Comment(s): hx aneurysms- COILS AND STENTS TO BRAIN, repair tendons r/t gout BILATERAL FEET. Past Anesthesia/Blood Transfusion Reactions: No Reported Reaction Additional Past Anesthesia/Blood Transfusion Reaction / Comm: PT HAS HAD BLOOD TRANSFUSIONS FOR ANEMIA-NO REACTION. Past Psychological History: Depression, Schizophrenia Additional Psychological History / Comment(s): paranoid schizophrenia Smoking Status: Unknown if ever smoked Past Alcohol Use History: None Reported Additional Past Alcohol Use History / Comment(s): STARTED SMOKING AT AGE 14, SMOKED 1PPD, QUIT >20 YEARS AGO BUT SMOKED AGAIN BRIEFLY WHEN AT [place] BUT QUIT 1.5 YERAS AGO Past Drug Use History: Cocaine Additional Drug Use History / Comment(s): No current use. Last used 15 yrs ago. - Past Family History Sister(s) Family Medical History: Myocardial Infarction ([place]) Father Family Medical History: Cancer Additional Family Medical History / Comment(s): throat, lung, and rectal cancer Mother Family Medical History: Myocardial Infarction ([place]) Additional Family Medical History / Comment(s): stroke Medications and Allergies Home Medications Medication Instructions Recorded Confirmed Type Aspirin EC [Ecotrin Low Dose] 81 mg PO DAILY 04/12/16 07/25/21 History Metoprolol Tartrate 100 mg PO BID 01/04/17 07/25/21 History Sertraline [Zoloft] 100 mg PO DAILY 01/04/17 07/25/21 History Omeprazole [PriLOSEC] 20 mg PO DAILY 02/09/20 07/25/21 History Atorvastatin [Lipitor] 20 mg PO HS #30 tab 02/13/20 07/25/21 Rx Divalproex Sodium [Depakote] 500 mg PO BID 04/23/20 07/25/21 History ARIPiprazole [Abilify] 10 mg PO HS 04/08/21 07/25/21 History Furosemide [Lasix] 20 mg PO DAILY 90 Days #90 tab 04/12/21 07/25/21 Rx Sertraline [Zoloft] 25 mg PO DAILY 07/25/21 07/25/21 History Allergies Allergy/AdvReac Type Severity Reaction Status Date / Time No Known Allergies Allergy Verified 07/25/21 21:20 Physical Exam Vitals: Vital Signs Temp Pulse Pulse Resp BP Pulse Ox 07/27/21 21:00 98.2 F 84 18 111/77 99 07/27/21 13:00 75 107/73 91 L 07/27/21 09:47 69 119/78 97 07/27/21 04:52 97.7 F 73 16 106/73 100 Intake and Output 07/27/21 07/27/21 07/27/21 06:59 14:59 22:59 Intake Total 950 Output Total 700 Balance 250 Intake: Intake, IV Titration 750 Amount Dextrose 5%-0.45% NaCl 1, 750 000 ml @ 75 mls/hr IV . [id number] [facility] Rx#:[id number] Oral 200 Output: Urine 700 Uretheral (Short) 700 Other: Voiding Method Indwelling Catheter Indwelling Catheter # Bowel Movements 4 Weight 47.627 kg Results CBC & Chem 7: 07/28/21 07:02 07/28/21 07:02 Labs: Abnormal Lab Results - Last 24 Hours (Table) 07/27/21 07/27/21 07/27/21 Range/Units 00:46 05:40 06:12 RBC 3.42 L (3.80-5.40) m/uL Hgb 8.8 L D (11.4-16.0) gm/dL Hct 28.6 L (34.0-46.0) % MCHC 30.6 L (31.0-37.0) g/dL RDW 19.4 H (11.5-15.5) % Plt Count 52 L (150-450) k/uL Chloride (96-109) mmol/L Carbon Dioxide (20.0-27.5) mmol/L BUN (9.0-27.0) mg/dL Est GFR (CKD-EPI)AfAm (60.0-200.0) Est GFR (CKD-EPI)NonAf (60.0-200.0) BUN/Creatinine Ratio (12.00-20.00) Ratio POC Glucose (mg/dL) 108 H 114 H (75-99) mg/dL Calcium (8.7-10.3) mg/dL Total Bilirubin (0.30-1.20) mg/dL AST (13-35) U/L ALT (8-44) U/L Total Protein (6.2-8.2) g/dL Albumin (3.8-4.9) g/dL Albumin/Globulin Ratio (1.60-3.17) g/dL 07/27/21 07/27/21 07/27/21 Range/Units 06:12 09:30 14:56 RBC (3.80-5.40) m/uL Hgb (11.4-16.0) gm/dL Hct (34.0-46.0) % MCHC (31.0-37.0) g/dL RDW (11.5-15.5) % Plt Count (150-450) k/uL Chloride 114 H (96-109) mmol/L Carbon Dioxide 15.2 L (20.0-27.5) mmol/L BUN 46.7 H (9.0-27.0) mg/dL Est GFR (CKD-EPI)AfAm 50.6 L (60.0-200.0) Est GFR (CKD-EPI)NonAf 43.6 L (60.0-200.0) BUN/Creatinine Ratio 35.92 H (12.00-20.00) Ratio POC Glucose (mg/dL) 110 H 69 L (75-99) mg/dL Calcium 8.3 L (8.7-10.3) mg/dL Total Bilirubin <0.20 L (0.30-1.20) mg/dL AST 127 H (13-35) U/L ALT 54 H (8-44) U/L Total Protein 5.2 L (6.2-8.2) g/dL Albumin 2.7 L (3.8-4.9) g/dL Albumin/Globulin Ratio 1.08 L (1.60-3.17) g/dL 07/27/21 Range/Units 19:19 RBC (3.80-5.40) m/uL Hgb (11.4-16.0) gm/dL Hct (34.0-46.0) % MCHC (31.0-37.0) g/dL RDW (11.5-15.5) % Plt Count (150-450) k/uL Chloride (96-109) mmol/L Carbon Dioxide (20.0-27.5) mmol/L BUN (9.0-27.0) mg/dL Est GFR (CKD-EPI)AfAm (60.0-200.0) Est GFR (CKD-EPI)NonAf (60.0-200.0) BUN/Creatinine Ratio (12.00-20.00) Ratio POC Glucose (mg/dL) 122 H (75-99) mg/dL Calcium (8.7-10.3) mg/dL Total Bilirubin (0.30-1.20) mg/dL AST (13-35) U/L ALT (8-44) U/L Total Protein (6.2-8.2) g/dL Albumin (3.8-4.9) g/dL Albumin/Globulin Ratio (1.60-3.17) g/dL Microbiology - Last 24 Hours (Table) 07/25/21 19:15 Blood Culture Gram Stain - Preliminary Blood Blood Culture - Preliminary Staphylococcus epidermidis 07/25/21 19:00 Blood Culture Gram Stain - Preliminary Blood 07/25/21 19:00 Blood Culture - Final Blood
[2021-07-28 11:34] LABS: Valproic Acid (Depakene) 63.2 ug/mL (50.0-100.0)
[2021-07-28] MEDS: PANTOPRAZOLE 40 MG TABLET PO SCH (12:02)
[2021-07-28 12:13] LABS: Glucose,Whole Blood 99 mg/dL (75-99)
[2021-07-28] MEDS: METOPROLOL TARTRATE 50 MG TAB PO SCH ×2 (13:01→20:06)
[2021-07-28] MEDS: PYRIDOXINE 50 MG TAB PO SCH (13:01)
[2021-07-28] MEDS: DIVALPROEX 250 MG TABLET.DR PO SCH (13:11)
[2021-07-28] MEDS: ASPIRIN 81 MG PO SCH (13:11)
[2021-07-28] MEDS: SERTRALINE 100 MG TAB PO SCH (13:11)
[2021-07-28] MEDS: HEPARIN SODIUM,PORCINE/PF 5,000 UNIT/0.5 ML SYRINGE SQ SCH ×2 (13:12→20:06)
--- NOTE | 2021-07-28 13:24 | P.CONS ---
History of Present Illness - Reason for Consult Consult date: 07/28/21 Anemia Requesting physician: Mohit Harley - History of Present Illness Mrs Urbano was seen back in March in regard to concern of Pancreatic Mass, she was referred outside hospital for EUS. She is a poor historian and unable to tell me if she ever underwent this procedure, I checked in our office chart however no document found, Annette (Dr. Brandon's MA is assisting) and I have left message for Son in Law Hussein. She has been re-admitted with mental status changes. Appears to have recurrent Pancreatitis evidenced with elevated amylase and lipase. Hemoglobin and platelets are decreased Review of Systems ROS unobtainable: due to mental status All systems: negative Past Medical History Past Medical History: CVA/TIA, Hyperlipidemia, Hypertension Additional Past Medical History / Comment(s): ANEMIA, 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 gout, PANCREATITIS, pseudoseizures. UTI, gallstones, LIPS AND ONE HAND SHAKES SOMETIMES, hx multiple brain aneursyms History of Any Multi-Drug Resistant Organisms: ESBL Year Discovered:: 03/18/18 ESBL E.coli MDRO Source:: Urine Past Surgical History: Section, Cholecystectomy, Orthopedic Surgery Additional Past Surgical History / Comment(s): hx aneurysms- COILS AND STENTS TO BRAIN, repair tendons r/t gout BILATERAL FEET. Past Anesthesia/Blood Transfusion Reactions: No Reported Reaction Additional Past Anesthesia/Blood Transfusion Reaction / Comm: PT HAS HAD BLOOD TRANSFUSIONS FOR ANEMIA-NO REACTION. Past Psychological History: Depression, Schizophrenia Additional Psychological History / Comment(s): paranoid schizophrenia Smoking Status: Unknown if ever smoked Past Alcohol Use History: None Reported Additional Past Alcohol Use History / Comment(s): STARTED SMOKING AT AGE 14, SMOKED 1PPD, QUIT >20 YEARS AGO BUT SMOKED AGAIN BRIEFLY WHEN AT [place] BUT QUIT 1.5 YERAS AGO Past Drug Use History: Cocaine Additional Drug Use History / Comment(s): No current use. Last used 15 yrs ago. - Past Family History Sister(s) Family Medical History: Myocardial Infarction ([place]) Father Family Medical History: Cancer Additional Family Medical History / Comment(s): throat, lung, and rectal cancer Mother Family Medical History: Myocardial Infarction ([place]) Additional Family Medical History / Comment(s): stroke Medications and Allergies Home Medications Medication Instructions Recorded Confirmed Type Aspirin EC [Ecotrin Low Dose] 81 mg PO DAILY 04/12/16 07/25/21 History Metoprolol Tartrate 100 mg PO BID 01/04/17 07/25/21 History Sertraline [Zoloft] 100 mg PO DAILY 01/04/17 07/25/21 History Omeprazole [PriLOSEC] 20 mg PO DAILY 02/09/20 07/25/21 History Atorvastatin [Lipitor] 20 mg PO HS #30 tab 02/13/20 07/25/21 Rx Divalproex Sodium [Depakote] 500 mg PO BID 04/23/20 07/25/21 History ARIPiprazole [Abilify] 10 mg PO HS 04/08/21 07/25/21 History Furosemide [Lasix] 20 mg PO DAILY 90 Days #90 tab 04/12/21 07/25/21 Rx Sertraline [Zoloft] 25 mg PO DAILY 07/25/21 07/25/21 History Allergies Allergy/AdvReac Type Severity Reaction Status Date / Time No Known Allergies Allergy Verified 07/25/21 21:20 Physical Exam Vitals: Vital Signs Temp Pulse Resp BP Pulse Ox 07/28/21 05:00 98.3 F 82 18 105/67 96 07/27/21 21:00 98.2 F 84 18 111/77 99 07/27/21 20:10 18 07/27/21 13:00 75 107/73 91 L Intake and Output 07/27/21 07/28/21 07/28/21 22:59 06:59 14:59 Intake Total 900 Output Total 600 Balance 300 Intake: Intake, IV Titration 900 Amount Dextrose 5% in Water 1, 900 000 ml @ 80 mls/hr IV . [id number] [facility] with Sodium Bicarb (1 Meq/ml) 150 ml Rx#:[id number] Oral 0 Output: Urine 600 Other: Voiding Method Indwelling Catheter Indwelling Catheter # Bowel Movements 4 - Constitutional General appearance: cooperative - EENT Eyes: poor dentition ENT: hard of hearing - Respiratory Respiratory: bilateral: diminished - Cardiovascular Rhythm: regularly irregular - Gastrointestinal General gastrointestinal: soft - Integumentary Integumentary: pale - Musculoskeletal Contractured arm - Psychiatric poor historian Results CBC & Chem 7: 07/29/21 10:23 07/29/21 10:23 Labs: Abnormal Lab Results - Last 24 Hours (Table) 07/27/21 07/27/21 07/28/21 Range/Units 14:56 19:19 03:56 RBC (3.80-5.40) m/uL Hgb (11.4-16.0) gm/dL Hct (34.0-46.0) % RDW (11.5-15.5) % Plt Count (150-450) k/uL Potassium (3.5-5.5) mmol/L BUN (9.0-27.0) mg/dL Est GFR (CKD-EPI)NonAf (60.0-200.0) BUN/Creatinine Ratio (12.00-20.00) Ratio POC Glucose (mg/dL) 69 L 122 H 108 H (75-99) mg/dL Calcium (8.7-10.3) mg/dL Iron (50-170) ug/dL TIBC (228-460) ug/dL Transferrin (204.0-354.0) mg/dL Total Bilirubin (0.30-1.20) mg/dL AST (13-35) U/L Total Protein (6.2-8.2) g/dL Albumin (3.8-4.9) g/dL Albumin/Globulin Ratio (1.60-3.17) g/dL 07/28/21 07/28/21 07/28/21 Range/Units 05:55 07:02 07:02 RBC 3.37 L (3.80-5.40) m/uL Hgb 8.7 L (11.4-16.0) gm/dL Hct 27.9 L (34.0-46.0) % RDW 19.7 H (11.5-15.5) % Plt Count 53 L (150-450) k/uL Potassium 3.0 L (3.5-5.5) mmol/L BUN 31.9 H (9.0-27.0) mg/dL Est GFR (CKD-EPI)NonAf 55.2 L (60.0-200.0) BUN/Creatinine Ratio 29.81 H (12.00-20.00) Ratio POC Glucose (mg/dL) 100 H (75-99) mg/dL Calcium 8.2 L (8.7-10.3) mg/dL Iron 27 L (50-170) ug/dL TIBC 171 L (228-460) ug/dL Transferrin 122.0 L (204.0-354.0) mg/dL Total Bilirubin 0.20 L (0.30-1.20) mg/dL AST 102 H (13-35) U/L Total Protein 4.9 L (6.2-8.2) g/dL Albumin 2.5 L (3.8-4.9) g/dL Albumin/Globulin Ratio 1.04 L (1.60-3.17) g/dL 07/28/21 Range/Units 08:01 RBC (3.80-5.40) m/uL Hgb (11.4-16.0) gm/dL Hct (34.0-46.0) % RDW (11.5-15.5) % Plt Count (150-450) k/uL Potassium (3.5-5.5) mmol/L BUN (9.0-27.0) mg/dL Est GFR (CKD-EPI)NonAf (60.0-200.0) BUN/Creatinine Ratio (12.00-20.00) Ratio POC Glucose (mg/dL) 103 H (75-99) mg/dL Calcium (8.7-10.3) mg/dL Iron (50-170) ug/dL TIBC (228-460) ug/dL Transferrin (204.0-354.0) mg/dL Total Bilirubin (0.30-1.20) mg/dL AST (13-35) U/L Total Protein (6.2-8.2) g/dL Albumin (3.8-4.9) g/dL Albumin/Globulin Ratio (1.60-3.17) g/dL Microbiology - Last 24 Hours (Table) 07/25/21 19:15 Blood Culture Gram Stain - Preliminary Blood Blood Culture - Preliminary Staphylococcus epidermidis Assessment and Plan (1) Normocytic anemia Current Visit: Yes Status: Acute Code(s): D64.9 - ANEMIA, UNSPECIFIED SNOMED Code(s): 357896358 (2) Thrombocytopenia Current Visit: Yes Status: Acute Code(s): D69.6 - THROMBOCYTOPENIA, UNSPECIFIED SNOMED Code(s): 043360146 (3) Hypomagnesemia Current Visit: Yes Status: Acute Code(s): E83.42 - HYPOMAGNESEMIA SNOMED Code(s): 533317462 (4) Hypokalemia Current Visit: Yes Status: Acute Code(s): E87.6 - HYPOKALEMIA SNOMED Code(s): 77059565 (5) AMS (altered mental status) Current Visit: Yes Status: Acute Code(s): R41.82 - ALTERED MENTAL STATUS, UNSPECIFIED SNOMED Code(s): 947998698 (6) Acute kidney injury Current Visit: Yes Status: Acute Code(s): N17.9 - ACUTE KIDNEY FAILURE, UNSPECIFIED SNOMED Code(s): 63022453 (7) Acute metabolic encephalopathy Current Visit: Yes Status: Acute Code(s): G93.41 - METABOLIC ENCEPHALOPATHY SNOMED Code(s): 34422052 Plan: Platelets and Hemoglobin decreased, baseline hemglobin 10-11, platelets 80-100. Repeat bicytopenia work-up Will follow up with EUS and if performed will update Medical Record with those results. Check Protein electrophoresis, FLC, Immunoglobulins, MMA and Iron studies
--- NOTE | 2021-07-28 13:59 | CONS ---
CONSULTATION CHIEF COMPLAINT: Abnormal EKG. Jeane is a 61-year-old lady who is admitted to hospital with altered mental status. I have been consulted because of an abnormal EKG. She has history of brain aneurysm and has had coiling done in the past and also has hypertension and seizures. She was brought in because of sudden worsening in her mental status and she became gradually unresponsive. She was already getting better by the time she came to the hospital, and she has been in the hospital for 2 days. We have been consulted because of an abnormal EKG on her admission. EKG shows sinus rhythm with nonspecific ST-T wave changes. Patient has left arm and left leg weakness secondary to prior CVA. She is pleasant but not particularly communicative. PAST MEDICAL HISTORY: Significant for CVA, hypertension, dyslipidemia. PAST SURGICAL HISTORY: Significant for cholecystectomy and section, history of brain aneurysm, status post stents. MEDICATIONS: Medications at home included Lasix, Zoloft, Abilify, Depakote, Lipitor, aspirin, metoprolol. ALLERGIES: DOCUMENTED. FAMILY HISTORY: Negative for premature coronary artery disease. SOCIAL HISTORY: Negative for smoking. REVIEW OF SYSTEMS: I am unable to obtain from the patient, who appears pleasantly confused. PHYSICAL EXAMINATION: She is comfortable at rest. Afebrile. Heart rate is 80 beats per minute. Blood pressure is 105/69, respiratory rate 18, O2 saturation 96% on room air. There is no jugular venous distention. Chest exam reveals good air entry bilaterally. Heart exam reveals first and second heart sounds, systolic murmur at the apex. Abdomen is soft. Examination of extremities did not reveal any edema. She has left-sided hemiplegia. LABS: Lab show a hemoglobin of 8.7, platelet count is low at 53. Potassium is 3. Creatinine is 1.1. ASSESSMENT: 1. Abnormal EKG. 2. History of cerebrovascular accident with left-sided hemiplegia. 3. Altered mental status. 4. Hypokalemia. 5. Hypertension. PLAN: Please supplement the potassium. Blood pressure is well controlled. I will obtain a 2D echo. Her abnormal EKG is probably related to hypertensive heart disease. MMODL / IJN: [id number] /
--- NOTE | 2021-07-28 14:39 | US ---
CLINICAL HISTORY: liver/spleen. EXAM MEASUREMENTS: Liver Length: 11.5 cm Gallbladder Wall: 0.3 cm CBD: 0.2 cm Spleen: 6.9cm Technically difficult very limited study. Patient unable to move for examiner, patient unable to hold her breath or move her arms out of the way so tech could scan patient's abdomen. Pancreas: Obscured by bowel gas Liver: very limited views with one acoustic window show no obvious abnormality, small amount of flui d in Castellon's pouch Gallbladder: mostly obscure by overlying bowel,not well visualized Evidence for sonographic Keene's sign: no CBD: wnl Spleen: Limited views show no obvious abnormality *Kidneys scanned two days prior, tech did not attempt to see kidneys. IMPRESSION: Exam was technically difficult. No dilated ducts seen. No evidence of gallstones.
[2021-07-28 15:05] LABS: Glucose,Whole Blood 73 mg/dL (75-99)
[2021-07-28] MEDS ORDERED: POTASSIUM CHLORIDE ER 20 MEQ TAB.ER PO STA (15:53)
[2021-07-28 16:12] LABS: Glucose,Whole Blood 68 mg/dL (75-99)
[2021-07-28] MEDS ORDERED: DEXTROSE 50% SYRINGE 50 ML IVP ONE (16:32)
[2021-07-28 16:33] LABS: Glucose,Whole Blood 67 mg/dL (75-99)
[2021-07-28] MEDS ORDERED: DEXTROSE 50% SYRINGE 50 ML IVP STA ×2 (16:33→23:55)
[2021-07-28] MEDS: SODIUM CHLORIDE 0.9% 1,000 ML IV SCH (16:35)
[2021-07-28] MEDS: DEXTROSE 5% IN WATER 1,000 ML with SODIUM BICARB (1 MEQ/ML) 150 ML IV SCH (16:44)
[2021-07-28] MEDS: MAGNESIUM SULFATE-D5W PMX 1 GM in DEXTROSE/WATER 1 100ML.BAG IVPB SCH ×2 (16:46→17:57)
[2021-07-28 16:52] LABS: Glucose,Whole Blood 156 mg/dL (75-99)
[2021-07-28 17:43] LABS: Immunoglobulin A 93.5 mg/dL (60.0-350.0)
[2021-07-28 17:57] LABS: LDH 195 U/L (120-246)
[2021-07-28 18:02] LABS: Glucose,Whole Blood 151 mg/dL (75-99)
[2021-07-28 18:09] LABS: Lipase 681 U/L (14-63)
--- NOTE | 2021-07-28 18:11 | P.PN ---
Subjective Progress Note Date: 07/28/21 This is a telemedicine neurology follow performed today on 07/28/2021. Patient's daughter Sivan was also present today. She states that mom is doing better. She still has not passed bedside swallow. The nurse gave her some applesauce, and patient held it in the mouth. Patient will be undergoing formal swallow studies tomorrow. Patient's daughter states that patient's mentation is back to baseline, however her mobility is still a great issue. Patient was able to walk with a walker or hanging on to someone's arm about a month ago. However in the last few weeks she has not been able to walk, and more recently not even able to stand. Patient has significantly decreased appetite, sometimes would go 3 days without eating. This probably led to acute kidney injury due to dehydration. Patient previously used to follow with Dr. Abbasi. Objective - Vital Signs Vital signs: Vital Signs Temp 97.9 F 07/28/21 13:00 Pulse 79 07/28/21 13:00 Resp 17 07/28/21 13:00 BP 118/78 07/28/21 13:00 Pulse Ox 96 07/28/21 13:00 Intake & Output 07/27/21 07/28/21 07/28/21 18:59 06:59 18:59 Intake Total 900 Output Total 600 Balance 300 Weight 47.627 kg Intake: Intake, IV Titration 900 Amount Dextrose 5% in Water 1, 900 000 ml @ 80 mls/hr IV . [id number] SHAR with Sodium Bicarb (1 Meq/ml) 150 ml Rx#:[id number] Oral 0 Output: Urine 600 Other: Voiding Method Indwelling Catheter Indwelling Catheter Indwelling Catheter # Bowel Movements 4 1 - Exam Patient is awake, but slow mentation. Patient is bradykinetic. Patient speaks with significant hypomimia, with low volume voice. Patient has tremors at rest of the right hand. Her left arm is spastic. Tone is mild to moderately increased in the right. - Labs CBC & Chem 7: 07/28/21 07:02 07/28/21 07:02 Labs: Abnormal Lab Results - Last 24 Hours (Table) 07/27/21 07/28/21 07/28/21 Range/Units 19:19 03:56 05:55 RBC (3.80-5.40) m/uL Hgb (11.4-16.0) gm/dL Hct (34.0-46.0) % RDW (11.5-15.5) % Plt Count (150-450) k/uL Potassium (3.5-5.5) mmol/L BUN (9.0-27.0) mg/dL Est GFR (CKD-EPI)NonAf (60.0-200.0) BUN/Creatinine Ratio (12.00-20.00) Ratio POC Glucose (mg/dL) 122 H 108 H 100 H (75-99) mg/dL Calcium (8.7-10.3) mg/dL Iron (50-170) ug/dL TIBC (228-460) ug/dL Transferrin (204.0-354.0) mg/dL Total Bilirubin (0.30-1.20) mg/dL AST (13-35) U/L Total Protein (6.2-8.2) g/dL Total Protein (PEP) (6.2-8.2) g/dL Albumin (3.8-4.9) g/dL Albumin/Globulin Ratio (1.60-3.17) g/dL CA 19-9 Antigen (0.0-34.9) U/mL 07/28/21 07/28/21 07/28/21 Range/Units 07:02 07:02 07:02 RBC 3.37 L (3.80-5.40) m/uL Hgb 8.7 L (11.4-16.0) gm/dL Hct 27.9 L (34.0-46.0) % RDW 19.7 H (11.5-15.5) % Plt Count 53 L (150-450) k/uL Potassium 3.0 L (3.5-5.5) mmol/L BUN 31.9 H (9.0-27.0) mg/dL Est GFR (CKD-EPI)NonAf 55.2 L (60.0-200.0) BUN/Creatinine Ratio 29.81 H (12.00-20.00) Ratio POC Glucose (mg/dL) (75-99) mg/dL Calcium 8.2 L (8.7-10.3) mg/dL Iron 27 L (50-170) ug/dL TIBC 171 L (228-460) ug/dL Transferrin 122.0 L (204.0-354.0) mg/dL Total Bilirubin 0.20 L (0.30-1.20) mg/dL AST 102 H (13-35) U/L Total Protein 4.9 L (6.2-8.2) g/dL Total Protein (PEP) 5.0 L (6.2-8.2) g/dL Albumin 2.5 L (3.8-4.9) g/dL Albumin/Globulin Ratio 1.04 L (1.60-3.17) g/dL CA 19-9 Antigen 155.0 H (0.0-34.9) U/mL 07/28/21 07/28/21 07/28/21 Range/Units 08:01 15:04 16:10 RBC (3.80-5.40) m/uL Hgb (11.4-16.0) gm/dL Hct (34.0-46.0) % RDW (11.5-15.5) % Plt Count (150-450) k/uL Potassium (3.5-5.5) mmol/L BUN (9.0-27.0) mg/dL Est GFR (CKD-EPI)NonAf (60.0-200.0) BUN/Creatinine Ratio (12.00-20.00) Ratio POC Glucose (mg/dL) 103 H 73 L 68 L (75-99) mg/dL Calcium (8.7-10.3) mg/dL Iron (50-170) ug/dL TIBC (228-460) ug/dL Transferrin (204.0-354.0) mg/dL Total Bilirubin (0.30-1.20) mg/dL AST (13-35) U/L Total Protein (6.2-8.2) g/dL Total Protein (PEP) (6.2-8.2) g/dL Albumin (3.8-4.9) g/dL Albumin/Globulin Ratio (1.60-3.17) g/dL CA 19-9 Antigen (0.0-34.9) U/mL 07/28/21 07/28/21 Range/Units 16:31 16:50 RBC (3.80-5.40) m/uL Hgb (11.4-16.0) gm/dL Hct (34.0-46.0) % RDW (11.5-15.5) % Plt Count (150-450) k/uL Potassium (3.5-5.5) mmol/L BUN (9.0-27.0) mg/dL Est GFR (CKD-EPI)NonAf (60.0-200.0) BUN/Creatinine Ratio (12.00-20.00) Ratio POC Glucose (mg/dL) 67 L 156 H (75-99) mg/dL Calcium (8.7-10.3) mg/dL Iron (50-170) ug/dL TIBC (228-460) ug/dL Transferrin (204.0-354.0) mg/dL Total Bilirubin (0.30-1.20) mg/dL AST (13-35) U/L Total Protein (6.2-8.2) g/dL Total Protein (PEP) (6.2-8.2) g/dL Albumin (3.8-4.9) g/dL Albumin/Globulin Ratio (1.60-3.17) g/dL CA 19-9 Antigen (0.0-34.9) U/mL Microbiology - Last 24 Hours (Table) 07/25/21 19:15 Blood Culture Gram Stain - Preliminary Blood Blood Culture - Preliminary Staphylococcus epidermidis Assessment and Plan Assessment: * Generalized weakness, decreased mobility and ambulation, probably multifactorial as reasons mentioned below. Rule out upcoming Parkinson's disease. Patient has mild, intermittent tremors at rest involving the right arm, bradykinesia, dysphagia, moderately increased tone involving the (healthy right side). However at this time patient is also ?septic, as her blood cultures have grown Staphylococcus epidermidis. Patient has been started on vancomycin. ID consult pending. * Acute kidney injury, likely due to very poor oral intake and dehydration, which seems to be improving now. 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 * Vitamin B6 deficiency * Seizure disorder * History of brain aneurysms Plan: * Patient's weakness, dysphagia, bradykinesia, increased tone and some resting tremors are suggestive of possible upcoming Parkinson's. Patient may benefit from outpatient NEY Scan to confirm Parkinson's. At this time Parkinson's is difficult to diagnose, as patient has bacteremia. Patient's daughter was recommended for patient to follow up with her neurologist Dr. Bansals. * Computed tomography scan of the head of 07/25/2021, showed no acute process/CVA, when compared with computed tomography scan of 04/12/2021. No new stroke. Continue aspirin 81 mg. * Patient's Depakote level was quite high 107.8. High Depakote level can produce psychomotor retardation, and mental slowing. Patient's dose of Depakote decreased from 500 mg twice a day to Depakote 250 mg in the morning and 500 mg at night. Patient has not had any seizures for over 2 years, per patient's daughter. * Patient has history of vitamin B6 deficiency, we'll start vitamin B6 replacement 50 mg daily. * Patient had episodes of hypoglycemia with blood sugars going down as low as 47, and also running 50, 51. Suggest internal medicine or endocrinology to assess the cause of hypoglycemia. Patient could potentially be running low glucose at home as well. Patient is not on any oral hypoglycemic agent, or insulin. Patient currently on D5. Her hemoglobin A1c is 4.7. * Patient has anemia with hemoglobin 8.8. Her platelets are also low 52, which could be related to a side effect of Depakote. Her Depakote level has improved, now 63.2. Hematology also following. Per patient's daughter, she has been on Depakote for last 3-4 years. * B12 817, folate 10.0. * Dr. Tino Gray will resume neurology service in the morning.
[2021-07-28 19:02] LABS: Amylase 355 U/L (23-121)
[2021-07-28 19:58] LABS: Glucose,Whole Blood 71 mg/dL (75-99)
[2021-07-28] MEDS: DIVALPROEX 500 MG TABLET.DR PO SCH (20:06)
[2021-07-28 22:06] LABS: Glucose,Whole Blood 89 mg/dL (75-99)
--- NOTE | 2021-07-28 22:14 | PN ---
PROGRESS NOTE This is a 61-year-old -[place] female who was admitted with altered mental status, dehydration, acute renal insufficiency, Depakote toxicity and hypothyroidism which has been corrected. Depakote dose has been lowered. She feels much better. She is eating better rehab. We are going to get PT/OT involved. She is also on B6 replacement vitamins for iron deficiency. She is doing better in general. She is going to get PT/OT and and Dietary. Cardiovascular S1-S2. Lungs clear. GI soft. Hematology negative Homans. ASSESSMENT: 1. Altered mental status. 2. Depakote toxicity. 3. Generalized weakness. 4. Hypothyroidism. 5. Prerenal azotemia. Continue current treatments. Possible discharge home in the next 2-3 days depending on PT/OT. MMODL / IJN: [id number] /
--- NOTE | 2021-07-28 22:59 | PN ---
PROGRESS NOTE DATE OF SERVICE: 07/28/2021 REASON FOR FOLLOWUP: Bacteremia. INTERVAL HISTORY: The patient is afebrile. The patient is breathing comfortably. Denies having any chest pain, shortness of breath or cough. No abdominal pain or diarrhea. PHYSICAL EXAMINATION: Blood pressure 118/78 with a pulse of 79, temperature is 97.9. She is 96% on room air. General description is a middle-aged female lying in bed in no distress. Respiratory system: Unlabored breathing, clear to auscultation anteriorly. Heart S1, S2. Regular rate and rhythm. Abdomen soft, no tenderness. LABS: No new labs have been obtained today. Blood culture with Staph epi. DIAGNOSTIC IMPRESSION AND PLAN: Patient with Staph bacteremia in this patient who also had elevated white count, more likely skin contaminant. The patient to go along with this morning for vancomycin. Blood culture has been repeated to document clearance of bacteremia and continue supportive care. MMODL / IJN: [id number] /
[2021-07-29 00:02] LABS: Glucose,Whole Blood 66 mg/dL (75-99)
[2021-07-29 00:36] LABS: Glucose,Whole Blood 143 mg/dL (75-99)
[2021-07-29 02:12] LABS: Glucose,Whole Blood 105 mg/dL (75-99)
[2021-07-29 04:08] LABS: Glucose,Whole Blood 112 mg/dL (75-99)
[2021-07-29] MEDS: LEVOTHYROXINE 50 MCG TAB PO SCH (05:52)
[2021-07-29 06:12] LABS: Glucose,Whole Blood 123 mg/dL (75-99)
[2021-07-29 08:20] LABS: Glucose,Whole Blood 106 mg/dL (75-99)
[2021-07-29] MEDS: HEPARIN SODIUM,PORCINE/PF 5,000 UNIT/0.5 ML SYRINGE SQ SCH ×2 (09:37→21:35)
[2021-07-29] MEDS: PANTOPRAZOLE 40 MG TABLET PO SCH (09:38)
[2021-07-29] MEDS: METOPROLOL TARTRATE 50 MG TAB PO SCH ×2 (09:38→21:34)
[2021-07-29] MEDS: ASPIRIN 81 MG PO SCH (09:38)
[2021-07-29] MEDS: SERTRALINE 100 MG TAB PO SCH (09:38)
[2021-07-29] MEDS: PYRIDOXINE 50 MG TAB PO SCH (09:39)
[2021-07-29] MEDS: DIVALPROEX 250 MG TABLET.DR PO SCH (09:39)
[2021-07-29 10:13] LABS: Glucose,Whole Blood 86 mg/dL (75-99)
--- NOTE | 2021-07-29 10:43 | P.PN ---
Subjective Patient is seen in follow-up for acute kidney injury. Renal function improving. Oral intake is poor. Resting in bed. Receiving IV fluids. Not a reliable historian. No changes overnight. Vital signs are stable. General: Resting in bed. HEENT: Head exam is unremarkable. LUNGS: Breath sounds decreased. HEART: Rate and Rhythm are regular. ABDOMEN: Abdominal distention. EXTREMITITES: No edema. Objective - Vital Signs Vital signs: Vital Signs Temp 98.9 F 07/29/21 05:00 Pulse 90 07/29/21 05:00 Resp 20 07/29/21 05:00 BP 111/79 07/29/21 05:00 Pulse Ox 96 07/29/21 05:00 Intake & Output 07/28/21 07/29/21 07/29/21 18:59 06:59 18:59 Intake Total 800 300 Output Total 500 Balance 800 -200 Intake: Intake, IV Titration 800 Amount Dextrose 5% in Water 1, 800 000 ml @ 80 mls/hr IV . [id number] SHAR with Sodium Bicarb (1 Meq/ml) 150 ml Rx#:[id number] Oral 300 Output: Urine 500 Other: Voiding Method Indwelling Catheter Indwelling Catheter # Bowel Movements 1 - Labs CBC & Chem 7: 07/28/21 07:02 07/28/21 07:02 Labs: Abnormal Lab Results - Last 24 Hours (Table) 07/28/21 07/28/21 07/28/21 Range/Units 07:02 07:02 07:02 Haptoglobin (31.2-198.0) mg/dL Potassium 3.0 L (3.5-5.5) mmol/L BUN 31.9 H (9.0-27.0) mg/dL Est GFR (CKD-EPI)NonAf 55.2 L (60.0-200.0) BUN/Creatinine Ratio 29.81 H (12.00-20.00) Ratio POC Glucose (mg/dL) (75-99) mg/dL Calcium 8.2 L (8.7-10.3) mg/dL Iron 27 L (50-170) ug/dL TIBC 171 L (228-460) ug/dL Transferrin 122.0 L (204.0-354.0) mg/dL Ferritin 2224.0 H (10.0-291.0) ng/mL Total Bilirubin 0.20 L (0.30-1.20) mg/dL AST 102 H (13-35) U/L Total Protein 4.9 L (6.2-8.2) g/dL Total Protein (PEP) (6.2-8.2) g/dL Albumin 2.5 L (3.8-4.9) g/dL Albumin/Globulin Ratio 1.04 L (1.60-3.17) g/dL Amylase 355 H* (23-121) U/L Lipase 681 H (14-63) U/L CA 19-9 Antigen (0.0-34.9) U/mL 07/28/21 07/28/21 07/28/21 Range/Units 07:02 15:04 16:10 Haptoglobin 221.0 H (31.2-198.0) mg/dL Potassium (3.5-5.5) mmol/L BUN (9.0-27.0) mg/dL Est GFR (CKD-EPI)NonAf (60.0-200.0) BUN/Creatinine Ratio (12.00-20.00) Ratio POC Glucose (mg/dL) 73 L 68 L (75-99) mg/dL Calcium (8.7-10.3) mg/dL Iron (50-170) ug/dL TIBC (228-460) ug/dL Transferrin (204.0-354.0) mg/dL Ferritin (10.0-291.0) ng/mL Total Bilirubin (0.30-1.20) mg/dL AST (13-35) U/L Total Protein (6.2-8.2) g/dL Total Protein (PEP) 5.0 L (6.2-8.2) g/dL Albumin (3.8-4.9) g/dL Albumin/Globulin Ratio (1.60-3.17) g/dL Amylase (23-121) U/L Lipase (14-63) U/L CA 19-9 Antigen 155.0 H (0.0-34.9) U/mL 07/28/21 07/28/21 07/28/21 Range/Units 16:31 16:50 18:00 Haptoglobin (31.2-198.0) mg/dL Potassium (3.5-5.5) mmol/L BUN (9.0-27.0) mg/dL Est GFR (CKD-EPI)NonAf (60.0-200.0) BUN/Creatinine Ratio (12.00-20.00) Ratio POC Glucose (mg/dL) 67 L 156 H 151 H (75-99) mg/dL Calcium (8.7-10.3) mg/dL Iron (50-170) ug/dL TIBC (228-460) ug/dL Transferrin (204.0-354.0) mg/dL Ferritin (10.0-291.0) ng/mL Total Bilirubin (0.30-1.20) mg/dL AST (13-35) U/L Total Protein (6.2-8.2) g/dL Total Protein (PEP) (6.2-8.2) g/dL Albumin (3.8-4.9) g/dL Albumin/Globulin Ratio (1.60-3.17) g/dL Amylase (23-121) U/L Lipase (14-63) U/L CA 19-9 Antigen (0.0-34.9) U/mL 07/28/21 07/28/21 07/29/21 Range/Units 19:55 23:53 00:26 Haptoglobin (31.2-198.0) mg/dL Potassium (3.5-5.5) mmol/L BUN (9.0-27.0) mg/dL Est GFR (CKD-EPI)NonAf (60.0-200.0) BUN/Creatinine Ratio (12.00-20.00) Ratio POC Glucose (mg/dL) 71 L 66 L 143 H (75-99) mg/dL Calcium (8.7-10.3) mg/dL Iron (50-170) ug/dL TIBC (228-460) ug/dL Transferrin (204.0-354.0) mg/dL Ferritin (10.0-291.0) ng/mL Total Bilirubin (0.30-1.20) mg/dL AST (13-35) U/L Total Protein (6.2-8.2) g/dL Total Protein (PEP) (6.2-8.2) g/dL Albumin (3.8-4.9) g/dL Albumin/Globulin Ratio (1.60-3.17) g/dL Amylase (23-121) U/L Lipase (14-63) U/L CA 19-9 Antigen (0.0-34.9) U/mL 07/29/21 07/29/21 07/29/21 Range/Units 02:02 03:59 05:57 Haptoglobin (31.2-198.0) mg/dL Potassium (3.5-5.5) mmol/L BUN (9.0-27.0) mg/dL Est GFR (CKD-EPI)NonAf (60.0-200.0) BUN/Creatinine Ratio (12.00-20.00) Ratio POC Glucose (mg/dL) 105 H 112 H 123 H (75-99) mg/dL Calcium (8.7-10.3) mg/dL Iron (50-170) ug/dL TIBC (228-460) ug/dL Transferrin (204.0-354.0) mg/dL Ferritin (10.0-291.0) ng/mL Total Bilirubin (0.30-1.20) mg/dL AST (13-35) U/L Total Protein (6.2-8.2) g/dL Total Protein (PEP) (6.2-8.2) g/dL Albumin (3.8-4.9) g/dL Albumin/Globulin Ratio (1.60-3.17) g/dL Amylase (23-121) U/L Lipase (14-63) U/L CA 19-9 Antigen (0.0-34.9) U/mL 07/29/21 Range/Units 08:14 Haptoglobin (31.2-198.0) mg/dL Potassium (3.5-5.5) mmol/L BUN (9.0-27.0) mg/dL Est GFR (CKD-EPI)NonAf (60.0-200.0) BUN/Creatinine Ratio (12.00-20.00) Ratio POC Glucose (mg/dL) 106 H (75-99) mg/dL Calcium (8.7-10.3) mg/dL Iron (50-170) ug/dL TIBC (228-460) ug/dL Transferrin (204.0-354.0) mg/dL Ferritin (10.0-291.0) ng/mL Total Bilirubin (0.30-1.20) mg/dL AST (13-35) U/L Total Protein (6.2-8.2) g/dL Total Protein (PEP) (6.2-8.2) g/dL Albumin (3.8-4.9) g/dL Albumin/Globulin Ratio (1.60-3.17) g/dL Amylase (23-121) U/L Lipase (14-63) U/L CA 19-9 Antigen (0.0-34.9) U/mL Microbiology - Last 24 Hours (Table) 07/28/21 07:02 Blood Culture - Preliminary Blood No Growth after 24 hours Assessment and Plan Plan: Assessment: 1. Acute kidney injury mostly prerenal secondary to hypovolemia and poor intake. Creatinine 3.01 on admission and down to 1.1 yesterday. Baseline creatinine near 1. UA fairly benign. 2. Staph epi bacteremia. On antibiotics. 3. Metabolic acidosis secondary to acute kidney injury and starvation ketosis. S/p bicarb drip. 4. Anemia. High ferritin noted. Hematology following. 5. Hypokalemia from poor intake and intracellular shifting from IV bicarb. Replaced. Plan: Maintain normal saline. Encouraged oral intake. Avoid nephrotoxins. Follow-up morning labs. Follow-up echocardiogram.
[2021-07-29 11:37] LABS: Anisocytosis Slight; Basophils % (A) 0 %; Eosinophils # (A) 0.3 k/uL (0-0.7); Eosinophils % (A) 4 %; HCT 34.1 % (34.0-46.0); HGB 10.4 gm/dL (11.4-16.0); Hypochromasia Moderate; Lymphocytes % (A) 40 %; MCH 25.8 pg (25.0-35.0); MCHC 30.5 g/dL (31.0-37.0); MCV 84.6 fL (80.0-100.0); Mean Platelet Volume 8.1; Microcytosis Slight; Monocytes # (A) 0.6 k/uL (0-1.0); Monocytes % (A) 7 %; Neutrophils # (A) 3.5 k/uL (1.3-7.7); Neutrophils % (A) 47 %; Poikilocytosis Slight; RBC 4.04 m/uL (3.80-5.40); RDW 19.4 % (11.5-15.5); WBC 7.4 k/uL (3.8-10.6)
--- NOTE | 2021-07-29 11:37 | ECHOF ---
Referral Reason:abnormal EKG, possible LVH MEASUREMENTS -------- HEIGHT: 157.5 cm WEIGHT: 47.6 kg BP: 111/79 RVIDd: 2.8 cm (< 3.3) IVSd: 1.1 cm (0.6 - 1.1) LVIDd: 3.7 cm (3.9 - 5.3) LVPWd: 1.1 cm (0.6 - 1.1) IVSs: 1.4 cm LVIDs: 2.5 cm LVPWs: 1.3 cm LAESV Index (A-L): 29.45 ml/m Ao Diam: 2.8 cm (2.0 - 3.7) AV Cusp: 1.7 cm (1.5 - 2.6) LA Diam: 3.7 cm (2.7 - 3.8) MV E Geovani: 0.82 m/s MV DecT: 159 ms MV A Geovani: 0.98 m/s MV E/A Ratio: 0.83 RAP: 5.00 mmHg RVSP: 19.02 mmHg FINDINGS -------- Sinus rhythm. This was a technically adequate study. The left ventricular size is normal. There is mild concentric left ventricular hypertrophy. Overa ll left ventricular systolic function is normal with, an EF between 55 - 60 %. The right ventricle is normal in size. LA is midly dilated 29-33ml/m2. The right atrial size is normal. Interatrial and interventricular septum intact. The aortic valve is trileaflet and appears structurally normal. There is no evidence of aortic regu rgitation. There is no evidence of aortic stenosis. There is trace mitral regurgitation. Mild tricuspid regurgitation present. There is no evidence of pulmonary hypertension. The right v entricular systolic pressure, as measured by Doppler, is 19.02mmHg. There is no pulmonic regurgitation present. The aortic root size is normal. IVC Not well visulized. There is no pericardial effusion. CONCLUSIONS -------- 1. The left ventricular size is normal. 2. There is mild concentric left ventricular hypertrophy. 3. Overall left ventricular systolic function is normal with, an EF between 55 - 60 %. 4. LA is midly dilated 29-33ml/m2. 5. There is trace mitral regurgitation. 6. Mild tricuspid regurgitation present. VISUAL DISPLAY ASSOCIATE: Bety Keys RDCS
[2021-07-29 11:57] LABS: African American GFR (CKD) 86 (>60 ml/min/1.73 sqM); Anion Gap 12 mmol/L; Blood Urea Nitrogen 26 mg/dL (7-17); Carbon Dioxide 24 mmol/L (22-30); Chloride 106 mmol/L (98-107); Glucose 85 mg/dL (74-99); Magnesium 2.4 mg/dL (1.6-2.3); Non-African American GFR(CKD) 74 (>60 ml/min/1.73 sqM); Potassium 3.6 mmol/L (3.5-5.1); Sodium 142 mmol/L (137-145)
[2021-07-29 12:07] LABS: Platelet Count 60 k/uL (150-450)
[2021-07-29 12:14] LABS: C Reactive Protein 17.3 mg/dL (<1.0)
[2021-07-29 12:23] LABS: Glucose,Whole Blood 67 mg/dL (75-99)
[2021-07-29 12:30] LABS: Glucose,Whole Blood 86 mg/dL (75-99)
[2021-07-29] MEDS: SODIUM CHLORIDE 0.9% 1,000 ML IV SCH (13:42)
[2021-07-29] MEDS: DEXTROSE 5%-0.9% NACL 1,000 ML IV SCH (13:45)
--- NOTE | 2021-07-29 13:50 | P.PN ---
Subjective Progress Note Date: 07/29/21 Principal diagnosis: Bicytopenia, Mental Status Changes Hemoglobin is increased 10 today, Pancreatic Enzymes increased. She states she is feeling better than she was previously. Cardiology at bedside during interview Objective - Vital Signs Vital signs: Vital Signs Temp 97.8 F 07/29/21 11:49 Pulse 84 07/29/21 11:49 Resp 18 07/29/21 11:49 BP 127/86 07/29/21 11:49 Pulse Ox 94 L 07/29/21 11:49 Intake & Output 07/28/21 07/29/21 07/29/21 18:59 06:59 18:59 Intake Total 800 300 Output Total 500 Balance 800 -200 Intake: Intake, IV Titration 800 Amount Dextrose 5% in Water 1, 800 000 ml @ 80 mls/hr IV . [id number] SHAR with Sodium Bicarb (1 Meq/ml) 150 ml Rx#:[id number] Oral 300 Output: Urine 500 Other: Voiding Method Indwelling Catheter Indwelling Catheter Indwelling Catheter # Bowel Movements 1 - Exam Alert Poor Historian COntrac HR Irr Lungs: Diminished Bilateral Extrw Weak no rashing mucus membranes dry - Labs CBC & Chem 7: 07/29/21 10:23 07/29/21 10:23 Labs: Abnormal Lab Results - Last 24 Hours (Table) 07/28/21 07/28/21 07/28/21 Range/Units 07:02 07:02 07:02 Hgb (11.4-16.0) gm/dL MCHC (31.0-37.0) g/dL RDW (11.5-15.5) % Plt Count (150-450) k/uL Haptoglobin 221.0 H (31.2-198.0) mg/dL Fibrinogen (200-500) mg/dL D-Dimer (<0.60) mg/L FEU BUN (7-17) mg/dL POC Glucose (mg/dL) (75-99) mg/dL Magnesium (1.6-2.3) mg/dL Ferritin 2224.0 H (10.0-291.0) ng/mL C-Reactive Protein (<1.0) mg/dL Total Protein (PEP) 5.0 L (6.2-8.2) g/dL Amylase 355 H* (23-121) U/L Lipase 681 H (14-63) U/L CA 19-9 Antigen 155.0 H (0.0-34.9) U/mL 07/28/21 07/28/21 07/28/21 Range/Units 15:04 16:10 16:31 Hgb (11.4-16.0) gm/dL MCHC (31.0-37.0) g/dL RDW (11.5-15.5) % Plt Count (150-450) k/uL Haptoglobin (31.2-198.0) mg/dL Fibrinogen (200-500) mg/dL D-Dimer (<0.60) mg/L FEU BUN (7-17) mg/dL POC Glucose (mg/dL) 73 L 68 L 67 L (75-99) mg/dL Magnesium (1.6-2.3) mg/dL Ferritin (10.0-291.0) ng/mL C-Reactive Protein (<1.0) mg/dL Total Protein (PEP) (6.2-8.2) g/dL Amylase (23-121) U/L Lipase (14-63) U/L CA 19-9 Antigen (0.0-34.9) U/mL 07/28/21 07/28/21 07/28/21 Range/Units 16:50 18:00 19:55 Hgb (11.4-16.0) gm/dL MCHC (31.0-37.0) g/dL RDW (11.5-15.5) % Plt Count (150-450) k/uL Haptoglobin (31.2-198.0) mg/dL Fibrinogen (200-500) mg/dL D-Dimer (<0.60) mg/L FEU BUN (7-17) mg/dL POC Glucose (mg/dL) 156 H 151 H 71 L (75-99) mg/dL Magnesium (1.6-2.3) mg/dL Ferritin (10.0-291.0) ng/mL C-Reactive Protein (<1.0) mg/dL Total Protein (PEP) (6.2-8.2) g/dL Amylase (23-121) U/L Lipase (14-63) U/L CA 19-9 Antigen (0.0-34.9) U/mL 07/28/21 07/29/21 07/29/21 Range/Units 23:53 00:26 02:02 Hgb (11.4-16.0) gm/dL MCHC (31.0-37.0) g/dL RDW (11.5-15.5) % Plt Count (150-450) k/uL Haptoglobin (31.2-198.0) mg/dL Fibrinogen (200-500) mg/dL D-Dimer (<0.60) mg/L FEU BUN (7-17) mg/dL POC Glucose (mg/dL) 66 L 143 H 105 H (75-99) mg/dL Magnesium (1.6-2.3) mg/dL Ferritin (10.0-291.0) ng/mL C-Reactive Protein (<1.0) mg/dL Total Protein (PEP) (6.2-8.2) g/dL Amylase (23-121) U/L Lipase (14-63) U/L CA 19-9 Antigen (0.0-34.9) U/mL 07/29/21 07/29/21 07/29/21 Range/Units 03:59 05:57 08:14 Hgb (11.4-16.0) gm/dL MCHC (31.0-37.0) g/dL RDW (11.5-15.5) % Plt Count (150-450) k/uL Haptoglobin (31.2-198.0) mg/dL Fibrinogen (200-500) mg/dL D-Dimer (<0.60) mg/L FEU BUN (7-17) mg/dL POC Glucose (mg/dL) 112 H 123 H 106 H (75-99) mg/dL Magnesium (1.6-2.3) mg/dL Ferritin (10.0-291.0) ng/mL C-Reactive Protein (<1.0) mg/dL Total Protein (PEP) (6.2-8.2) g/dL Amylase (23-121) U/L Lipase (14-63) U/L CA 19-9 Antigen (0.0-34.9) U/mL 07/29/21 07/29/21 07/29/21 Range/Units 10:23 10:23 11:23 Hgb 10.4 L (11.4-16.0) gm/dL MCHC 30.5 L (31.0-37.0) g/dL RDW 19.4 H (11.5-15.5) % Plt Count 60 L (150-450) k/uL Haptoglobin (31.2-198.0) mg/dL Fibrinogen 618 H (200-500) mg/dL D-Dimer 6.49 H (<0.60) mg/L FEU BUN 26 H (7-17) mg/dL POC Glucose (mg/dL) (75-99) mg/dL Magnesium 2.4 H (1.6-2.3) mg/dL Ferritin (10.0-291.0) ng/mL C-Reactive Protein 17.3 H (<1.0) mg/dL Total Protein (PEP) (6.2-8.2) g/dL Amylase (23-121) U/L Lipase (14-63) U/L CA 19-9 Antigen (0.0-34.9) U/mL 07/29/21 Range/Units 11:55 Hgb (11.4-16.0) gm/dL MCHC (31.0-37.0) g/dL RDW (11.5-15.5) % Plt Count (150-450) k/uL Haptoglobin (31.2-198.0) mg/dL Fibrinogen (200-500) mg/dL D-Dimer (<0.60) mg/L FEU BUN (7-17) mg/dL POC Glucose (mg/dL) 67 L (75-99) mg/dL Magnesium (1.6-2.3) mg/dL Ferritin (10.0-291.0) ng/mL C-Reactive Protein (<1.0) mg/dL Total Protein (PEP) (6.2-8.2) g/dL Amylase (23-121) U/L Lipase (14-63) U/L CA 19-9 Antigen (0.0-34.9) U/mL Microbiology - Last 24 Hours (Table) 07/28/21 07:02 Blood Culture - Preliminary Blood No Growth after 24 hours Assessment and Plan (1) Normocytic anemia Current Visit: Yes Status: Acute Code(s): D64.9 - ANEMIA, UNSPECIFIED SNOMED Code(s): 988051161 (2) Thrombocytopenia Current Visit: Yes Status: Acute Code(s): D69.6 - THROMBOCYTOPENIA, UNSPECIFIED SNOMED Code(s): 408644659 (3) Hypomagnesemia Current Visit: Yes Status: Acute Code(s): E83.42 - HYPOMAGNESEMIA SNOMED Code(s): 172475297 (4) Hypokalemia Current Visit: Yes Status: Acute Code(s): E87.6 - HYPOKALEMIA SNOMED Code(s): 00119238 (5) AMS (altered mental status) Current Visit: Yes Status: Acute Code(s): R41.82 - ALTERED MENTAL STATUS, UNSPECIFIED SNOMED Code(s): 332282214 (6) Acute kidney injury Current Visit: Yes Status: Acute Code(s): N17.9 - ACUTE KIDNEY FAILURE, UNSPECIFIED SNOMED Code(s): 20292903 (7) Acute metabolic encephalopathy Current Visit: Yes Status: Acute Code(s): G93.41 - METABOLIC ENCEPHALOPATHY SNOMED Code(s): 81837129 Plan: Platelets and Hemoglobin decreased, baseline hemoglobin 10-11, platelets 80-100. Repeat bicytopenia work-up Will follow up with EUS and if performed will update Medical Record with those results. Await Protein electrophoresis, FLC, Immunoglobulins, MMA and Iron studies Ferritin increased no IV iron supplementation
--- NOTE | 2021-07-29 14:28 | P.PN ---
Subjective This is a 61-year-old female with past medical history of ischemic CVA, brain aneurysms status post coiling, hypertension,seizures. Patient presents to the hospital with altered mental status. Cardiology was consulted for abnormal EKG. Patient used to follow in the office with Dr. Tanner, last seen in 2017. EKG revealed sinus rhythm with nonspecific ST ST-T wave changes. On admission, patient was found to be hypoglycemic blood sugar 50s and acute kidney injury, serum creatinine 3.01. Patient's serum creatinine improved with IV fluids. Echocardiogram revealed EF of 5560%, LA is mildly dilated, trace mitral regurgitation, mild tricuspid regurgitation. Patient seen and examined at bedside, no acute distress. Denies chest pain or shortness of breath, patient is improving back to baseline Blood pressure 111/79, heart rate 90, afebrile, saturations greater than 92% on room air GENERAL: In no acute distress. NECK: Supple without JVD or thyromegaly. LUNGS: Breath sounds clear to auscultation bilaterally. Respiration equal and un labored. No wheezes, rales or rhonchi. HEART: Regular rate and rhythm without murmurs, rubs or gallops. S1 and S2 heard. EXTREMITIES: Normal range of motion, no edema. No clubbing or cyanosis. Perip heral pulses intact. ASSESSMENT Altered mental status History of CVA Hypokalemia Acute kidney injury, improved Hypoglycemia, improved History of hypertension History of seizures PLAN From cardiology perspective, no further inpatient workup. We'll follow the patient as needed. Please reconsult if needed. Nurse Practitioner note has been reviewed, I agree with a documented findings and plan of care. Patient was seen and examined. Objective - Vital Signs Vital signs: Vital Signs Temp 98.9 F 07/29/21 05:00 Pulse 90 07/29/21 05:00 Resp 20 07/29/21 05:00 BP 111/79 07/29/21 05:00 Pulse Ox 96 07/29/21 05:00 Intake & Output 07/28/21 07/29/21 07/29/21 18:59 06:59 18:59 Intake Total 800 300 Output Total 500 Balance 800 -200 Intake: Intake, IV Titration 800 Amount Dextrose 5% in Water 1, 800 000 ml @ 80 mls/hr IV . [id number] [facility] with Sodium Bicarb (1 Meq/ml) 150 ml Rx#:[id number] Oral 300 Output: Urine 500 Other: Voiding Method Indwelling Catheter Indwelling Catheter Indwelling Catheter # Bowel Movements 1 - Labs CBC & Chem 7: 07/29/21 10:23 07/29/21 10:23 Labs: Abnormal Lab Results - Last 24 Hours (Table) 07/28/21 07/28/21 07/28/21 Range/Units 07:02 07:02 07:02 Haptoglobin 221.0 H (31.2-198.0) mg/dL POC Glucose (mg/dL) (75-99) mg/dL Ferritin 2224.0 H (10.0-291.0) ng/mL Total Protein (PEP) 5.0 L (6.2-8.2) g/dL Amylase 355 H* (23-121) U/L Lipase 681 H (14-63) U/L CA 19-9 Antigen 155.0 H (0.0-34.9) U/mL 07/28/21 07/28/21 07/28/21 Range/Units 15:04 16:10 16:31 Haptoglobin (31.2-198.0) mg/dL POC Glucose (mg/dL) 73 L 68 L 67 L (75-99) mg/dL Ferritin (10.0-291.0) ng/mL Total Protein (PEP) (6.2-8.2) g/dL Amylase (23-121) U/L Lipase (14-63) U/L CA 19-9 Antigen (0.0-34.9) U/mL 07/28/21 07/28/21 07/28/21 Range/Units 16:50 18:00 19:55 Haptoglobin (31.2-198.0) mg/dL POC Glucose (mg/dL) 156 H 151 H 71 L (75-99) mg/dL Ferritin (10.0-291.0) ng/mL Total Protein (PEP) (6.2-8.2) g/dL Amylase (23-121) U/L Lipase (14-63) U/L CA 19-9 Antigen (0.0-34.9) U/mL 07/28/21 07/29/21 07/29/21 Range/Units 23:53 00:26 02:02 Haptoglobin (31.2-198.0) mg/dL POC Glucose (mg/dL) 66 L 143 H 105 H (75-99) mg/dL Ferritin (10.0-291.0) ng/mL Total Protein (PEP) (6.2-8.2) g/dL Amylase (23-121) U/L Lipase (14-63) U/L CA 19-9 Antigen (0.0-34.9) U/mL 07/29/21 07/29/21 07/29/21 Range/Units 03:59 05:57 08:14 Haptoglobin (31.2-198.0) mg/dL POC Glucose (mg/dL) 112 H 123 H 106 H (75-99) mg/dL Ferritin (10.0-291.0) ng/mL Total Protein (PEP) (6.2-8.2) g/dL Amylase (23-121) U/L Lipase (14-63) U/L CA 19-9 Antigen (0.0-34.9) U/mL Microbiology - Last 24 Hours (Table) 07/28/21 07:02 Blood Culture - Preliminary Blood No Growth after 24 hours
[2021-07-29 14:34] LABS: Glucose,Whole Blood 90 mg/dL (75-99)
[2021-07-29 16:06] LABS: Glucose,Whole Blood 98 mg/dL (75-99)
[2021-07-29 17:56] LABS: Glucose,Whole Blood 86 mg/dL (75-99)
[2021-07-29 20:05] LABS: Glucose,Whole Blood 105 mg/dL (75-99)
[2021-07-29] MEDS: DIVALPROEX 500 MG TABLET.DR PO SCH (21:34)
[2021-07-29] MEDS: ARIPiprazole 10 MG TAB PO SCH (21:34)
[2021-07-29 22:21] LABS: Glucose,Whole Blood 121 mg/dL (75-99)
--- NOTE | 2021-07-29 22:48 | PN ---
PROGRESS NOTE DATE OF SERVICE: 07/29/2021 REASON FOR FOLLOWUP: Positive blood culture. INTERVAL HISTORY: The patient is afebrile. The patient is breathing comfortably on room air. Patient denies having any chest pain, shortness of breath or cough. No abdominal pain or diarrhea. PHYSICAL EXAMINATION: Blood pressure 108/75, pulse of 80, temperature 98.7. She is 98% on room air. General description is a middle-aged female up in the bed in no distress. Respiratory system: Unlabored breathing, decreased intensity of breath sounds. No wheeze. Heart S1, S2. Regular rate and rhythm. Abdomen soft, no tenderness. LABS: No new labs have been obtained today. Blood culture repeat has been negative so far. DIAGNOSTIC IMPRESSION AND PLAN: Patient with positive blood culture with Staphylococcus epidermidis, likely skin contaminant. Patient does not have any clinical symptoms to go along with it, with repeat culture negative. Patient will be monitored closely off antibiotic therapy. Continue supportive care. MMODL / IJN: [id number] /
--- NOTE | 2021-07-29 23:45 | PN ---
PROGRESS NOTE This 61-year-old -Thai female is more alert today, feeling better. Her caregivers here say she needs her medications for paranoid delusions given at night. She was on Abilify from outpatient psychiatry at [facility]. She had positive Staph epidermidis in her blood, for which Dr. Tristan has been seeing her. She is having no abdominal pain. She is on B6 vitamin replacement. She is on hypothyroid medicine. Depakote level has been readdressed. She is up, giving appropriate answers for her. Heart S1-S2. Abdomen is soft. Lungs are clear. Hematology negative Homans. Skin contaminant with Staph epidermidis in the blood culture. Repeat cultures are negative. No more antibiotics. PT/OT, vitamin replacement, thyroid replacement. Possible discharge home in next couple of days. MMODL / IJN: [id number] /
[2021-07-29 23:50] LABS: Glucose,Whole Blood 100 mg/dL (75-99)
[2021-07-30 01:49] LABS: Glucose,Whole Blood 83 mg/dL (75-99)
[2021-07-30 04:11] LABS: Glucose,Whole Blood 91 mg/dL (75-99)
[2021-07-30 05:50] LABS: Glucose,Whole Blood 89 mg/dL (75-99)
[2021-07-30] MEDS: LEVOTHYROXINE 50 MCG TAB PO SCH (06:34)
[2021-07-30 07:01] LABS: Anisocytosis Moderate; Basophils % (A) 0 %; Eosinophils # (A) 0.3 k/uL (0-0.7); Eosinophils % (A) 5 %; HCT 24.9 % (34.0-46.0); Hypochromasia Marked; Lymphocytes # (A) 3.3 k/uL (1.0-4.8); Lymphocytes % (A) 47 %; MCH 26.2 pg (25.0-35.0); MCHC 30.6 g/dL (31.0-37.0); MCV 85.7 fL (80.0-100.0); Mean Platelet Volume 7.3; Microcytosis Slight; Monocytes # (A) 0.5 k/uL (0-1.0); Monocytes % (A) 7 %; Neutrophils # (A) 2.6 k/uL (1.3-7.7); Neutrophils % (A) 38 %; Platelet Count 51 k/uL (150-450); RDW 20.2 % (11.5-15.5); WBC 6.9 k/uL (3.8-10.6)
[2021-07-30 07:10] LABS: HGB 7.6 gm/dL (11.4-16.0)
[2021-07-30 08:13] LABS: Glucose,Whole Blood 83 mg/dL (75-99)
[2021-07-30 09:11] LABS: BUN/Creat Ratio 24.01 Ratio (12.00-20.00); Globulin 2.2 g/dL (1.6-3.3)
[2021-07-30 09:12] LABS: ALT 37 U/L (8-44); AST 68 U/L (13-35); African American GFR (CKD) 97.7 (60.0-200.0); Albumin 2.4 g/dL (3.8-4.9); Albumin/Globulin Ratio 1.09 (1.60-3.17); Alkaline Phosphatase 90 U/L (41-126); Blood Urea Nitrogen 18.1 mg/dL (9.0-27.0); Calcium 7.9 mg/dL (8.7-10.3); Carbon Dioxide 22.9 mmol/L (20.0-27.5); Chloride 108 mmol/L (96-109); Glucose 86 mg/dL (70-110); Magnesium 2.1 mg/dL (1.5-2.4); Non-African American GFR(CKD) 84.3 (60.0-200.0); Potassium 3.3 mmol/L (3.5-5.5); Sodium 140 mmol/L (135-145); Total Bilirubin <0.20 mg/dL (0.30-1.20); Total Protein 4.6 g/dL (6.2-8.2)
[2021-07-30] MEDS: METOPROLOL TARTRATE 50 MG TAB PO SCH ×2 (09:15→21:20)
[2021-07-30] MEDS: ASPIRIN 81 MG PO SCH (09:15)
[2021-07-30] MEDS: HEPARIN SODIUM,PORCINE/PF 5,000 UNIT/0.5 ML SYRINGE SQ SCH ×2 (09:15→21:19)
[2021-07-30] MEDS: DIVALPROEX 250 MG TABLET.DR PO SCH (09:16)
[2021-07-30] MEDS: SERTRALINE 100 MG TAB PO SCH (09:16)
[2021-07-30] MEDS: PANTOPRAZOLE 40 MG TABLET PO SCH (09:16)
[2021-07-30] MEDS: PYRIDOXINE 50 MG TAB PO SCH (09:16)
[2021-07-30] MEDS: DEXTROSE 5%-0.9% NACL 1,000 ML IV SCH (09:17)
[2021-07-30 09:52] LABS: Glucose,Whole Blood 85 mg/dL (75-99)
[2021-07-30] MEDS ORDERED: POTASSIUM CHLORIDE ER 20 MEQ TAB.ER PO STA (10:47)
--- NOTE | 2021-07-30 10:47 | P.PN ---
Subjective Patient is seen in follow-up for acute kidney injury. Renal function back to baseline. Oral intake is slowly improving. Currently having breakfast. Receiving IV fluids. Not a reliable historian. No changes overnight. Vital signs are stable. General: Resting in bed. HEENT: Head exam is unremarkable. LUNGS: Breath sounds decreased. HEART: Rate and Rhythm are regular. ABDOMEN: Abdominal distention. EXTREMITITES: No edema. Objective - Vital Signs Vital signs: Vital Signs Temp 99 F 07/30/21 03:58 Pulse 85 07/30/21 09:14 Resp 18 07/30/21 03:58 BP 100/69 07/30/21 09:14 Pulse Ox 98 07/30/21 09:14 Intake & Output 07/29/21 07/30/21 07/30/21 18:59 06:59 18:59 Intake Total 600 180 Output Total 100 Balance 600 80 Intake: Intake, IV Titration 600 Amount Dextrose 5%-0.9% NaCl 1, 600 000 ml @ 50 mls/hr IV . Q20H [facility] Rx#:[id number] Oral 180 Output: Urine 100 Other: Voiding Method Indwelling Catheter Indwelling Catheter # Voids 0 # Bowel Movements 1 - Labs CBC & Chem 7: 07/30/21 06:10 07/30/21 06:10 Labs: Abnormal Lab Results - Last 24 Hours (Table) 07/29/21 07/29/21 07/29/21 Range/Units 10:23 10:23 10:23 RBC (3.80-5.40) m/uL Hgb 10.4 L (11.4-16.0) gm/dL Hct (34.0-46.0) % MCHC 30.5 L (31.0-37.0) g/dL RDW 19.4 H (11.5-15.5) % Plt Count 60 L (150-450) k/uL Fibrinogen (200-500) mg/dL D-Dimer (<0.60) mg/L FEU Potassium (3.5-5.5) mmol/L Anion Gap (10.00-18.00) mmol/L BUN 26 H (7-17) mg/dL BUN/Creatinine Ratio (12.00-20.00) Ratio POC Glucose (mg/dL) (75-99) mg/dL Calcium (8.7-10.3) mg/dL Magnesium 2.4 H (1.6-2.3) mg/dL Total Bilirubin (0.30-1.20) mg/dL AST (13-35) U/L C-Reactive Protein 17.3 H (<1.0) mg/dL Total Protein (6.2-8.2) g/dL Albumin (3.8-4.9) g/dL Albumin/Globulin Ratio (1.60-3.17) g/dL Procalcitonin 0.51 H (0.02-0.09) ng/mL 07/29/21 07/29/21 07/29/21 Range/Units 11:23 11:55 20:04 RBC (3.80-5.40) m/uL Hgb (11.4-16.0) gm/dL Hct (34.0-46.0) % MCHC (31.0-37.0) g/dL RDW (11.5-15.5) % Plt Count (150-450) k/uL Fibrinogen 618 H (200-500) mg/dL D-Dimer 6.49 H (<0.60) mg/L FEU Potassium (3.5-5.5) mmol/L Anion Gap (10.00-18.00) mmol/L BUN (7-17) mg/dL BUN/Creatinine Ratio (12.00-20.00) Ratio POC Glucose (mg/dL) 67 L 105 H (75-99) mg/dL Calcium (8.7-10.3) mg/dL Magnesium (1.6-2.3) mg/dL Total Bilirubin (0.30-1.20) mg/dL AST (13-35) U/L C-Reactive Protein (<1.0) mg/dL Total Protein (6.2-8.2) g/dL Albumin (3.8-4.9) g/dL Albumin/Globulin Ratio (1.60-3.17) g/dL Procalcitonin (0.02-0.09) ng/mL 07/29/21 07/29/21 07/30/21 Range/Units 22:19 23:48 06:10 RBC (3.80-5.40) m/uL Hgb (11.4-16.0) gm/dL Hct (34.0-46.0) % MCHC (31.0-37.0) g/dL RDW (11.5-15.5) % Plt Count (150-450) k/uL Fibrinogen (200-500) mg/dL D-Dimer (<0.60) mg/L FEU Potassium 3.3 L (3.5-5.5) mmol/L Anion Gap 9.10 L (10.00-18.00) mmol/L BUN (7-17) mg/dL BUN/Creatinine Ratio 24.01 H (12.00-20.00) Ratio POC Glucose (mg/dL) 121 H 100 H (75-99) mg/dL Calcium 7.9 L (8.7-10.3) mg/dL Magnesium (1.6-2.3) mg/dL Total Bilirubin <0.20 L (0.30-1.20) mg/dL AST 68 H (13-35) U/L C-Reactive Protein (<1.0) mg/dL Total Protein 4.6 L (6.2-8.2) g/dL Albumin 2.4 L (3.8-4.9) g/dL Albumin/Globulin Ratio 1.09 L (1.60-3.17) g/dL Procalcitonin (0.02-0.09) ng/mL 07/30/21 Range/Units 06:10 RBC 2.90 L (3.80-5.40) m/uL Hgb 7.6 L D (11.4-16.0) gm/dL Hct 24.9 L (34.0-46.0) % MCHC 30.6 L (31.0-37.0) g/dL RDW 20.2 H (11.5-15.5) % Plt Count 51 L (150-450) k/uL Fibrinogen (200-500) mg/dL D-Dimer (<0.60) mg/L FEU Potassium (3.5-5.5) mmol/L Anion Gap (10.00-18.00) mmol/L BUN (7-17) mg/dL BUN/Creatinine Ratio (12.00-20.00) Ratio POC Glucose (mg/dL) (75-99) mg/dL Calcium (8.7-10.3) mg/dL Magnesium (1.6-2.3) mg/dL Total Bilirubin (0.30-1.20) mg/dL AST (13-35) U/L C-Reactive Protein (<1.0) mg/dL Total Protein (6.2-8.2) g/dL Albumin (3.8-4.9) g/dL Albumin/Globulin Ratio (1.60-3.17) g/dL Procalcitonin (0.02-0.09) ng/mL Microbiology - Last 24 Hours (Table) 07/28/21 07:02 Blood Culture - Preliminary Blood No Growth after 48 hours Assessment and Plan Plan: Assessment: 1. Acute kidney injury mostly prerenal secondary to hypovolemia and poor intake. Creatinine 3.01 on admission and down to 0.8 today. Baseline creatinine near 1. UA fairly benign. 2. Staph epi bacteremia. On antibiotics. 3. Metabolic acidosis secondary to acute kidney injury and starvation ketosis. S/p bicarb drip. 4. Anemia. High ferritin noted. Hematology following. 5. Hypokalemia from poor intake and intracellular shifting from IV bicarb. Ma gnesium normal. Plan: Encouraged oral intake. Avoid nephrotoxins. Replace potassium. Preserved ejection fraction. I will sign off. Please call with any questions or concerns
[2021-07-30 12:06] LABS: Glucose,Whole Blood 102 mg/dL (75-99)
[2021-07-30 13:03] LABS: Albumin 2.32 g/dL (3.80-4.90); Gamma Globulin 1.01 g/dL (0.70-1.50)
[2021-07-30 14:26] LABS: Glucose,Whole Blood 93 mg/dL (75-99)
--- NOTE | 2021-07-30 14:45 | P.PN ---
Subjective Progress Note Date: 07/30/21 I am seeing the patient for the first time for neurological management during this admission. Please refer to Dr. Spivey's note for further details. Patient's positive blood culture was staph epidermidis is likely skin contaminant per ID team. During this hospital stay she has anemia and her most recent hemoglobin is 7.6 in which on presentation it was 10.8 Patient had hypoglycemia event on 07/28 and 07/29/2021 in 60's. I spoke with the patient's daughter who is at bedside and she stated patient is doing better for recently compared to her initial presentation. Her family members stated she has been having difficulty walking for past 3 months and prior to that using walker and she was evaluated by Dr. Olmedo in past and they did not evaluated for Parkinson's disease and are in process of seeing Dr. Yang. Objective - Vital Signs Vital signs: Vital Signs Temp 98.2 F 07/30/21 12:46 Pulse 88 07/30/21 12:46 Resp 18 07/30/21 12:46 BP 103/67 07/30/21 12:46 Pulse Ox 93 L 07/30/21 12:46 Intake & Output 07/29/21 07/30/21 07/30/21 18:59 06:59 18:59 Intake Total 600 180 Output Total 100 Balance 600 80 Intake: Intake, IV Titration 600 Amount Dextrose 5%-0.9% NaCl 1, 600 000 ml @ 50 mls/hr IV . Q20H [facility] Rx#:[id number] Oral 180 Output: Urine 100 Other: Voiding Method Indwelling Catheter Indwelling Catheter Indwelling Catheter # Voids 0 # Bowel Movements 1 - Exam GENERAL: The patient is lying in bed and is not in acute distress. NEUROLOGICAL: Higher mental function: The patient is awake, alert, oriented to self and place. Regarding time she had to be asked multiple times to answer correctly. Somewhat slow to respond. Patient is following simple commands. No aphasia and no neglect. Cranial nerves: The pupils are round, equal and reactive to light and a ccommodation. Visual campoverde are full to confrontation throughout. Extraocular movement is intact no nystagmus is noted. Facial sensation is normal to touch throughout. The facial strength is normal throughout. Tongue is midline and moved [id number] without any difficulty. No dysarthria is noted. Motor: The strength is able to lift bilateral upper extremities above gravity but weaker over the left side and has spasticity over left side (mostly upper extremity). Lowers are limited but moves side to side proximally (more right than left). Dorsiflexion and plantarflexion of ankles are 3/5 (more right >left). No resting tremor. No increased rigidity or tone over the right upper. WORK-UP: * Computed tomography scan of the head of 07/25/2021, showed no acute process/ CVA, when compared with computed tomography scan of 04/12/2021. No new stroke. Nobody reported it is reported the patient has right MCA territory infarct is seen again. Patient has prominent CSF space and ventricles with the right lateral ventricle posterior horn ex vacuo dilation stable. * Her hemoglobin A1c is 4.7. * Depakote level on presentation is 107.8 and has improved, now 63.2. * B12 817, folate 10.0. * TSH: 3.640 * Ammonia <9. * AST on presentation is 187-->68 * ALT: on presentation 66-->37 * Initial blood culture on 07/25/21 is staph epidermis. Repeat culture on 07/28/21: No grow. * U/A: Negative for UTI * Coronavirus PCR is not detected * 2-D echocardiogram was reported as mild concentric left ventricular hypertrophy. Ejection fraction of 55-60%. Left atrium is mildly dilated. * - Labs CBC & Chem 7: 07/30/21 06:10 07/30/21 06:10 Labs: Abnormal Lab Results - Last 24 Hours (Table) 07/28/21 07/29/21 07/29/21 Range/Units 07:02 10:23 20:04 RBC (3.80-5.40) m/uL Hgb (11.4-16.0) gm/dL Hct (34.0-46.0) % MCHC (31.0-37.0) g/dL RDW (11.5-15.5) % Plt Count (150-450) k/uL Potassium (3.5-5.5) mmol/L Anion Gap (10.00-18.00) mmol/L BUN/Creatinine Ratio (12.00-20.00) Ratio POC Glucose (mg/dL) 105 H (75-99) mg/dL Calcium (8.7-10.3) mg/dL Total Bilirubin (0.30-1.20) mg/dL AST (13-35) U/L Total Protein (6.2-8.2) g/dL Albumin (3.8-4.9) g/dL Albumin (PEP) 2.32 L (3.80-4.90) g/dL Albumin/Globulin Ratio (1.60-3.17) g/dL Mlnfv-7-Chrurhibl 0.41 H (0.10-0.40) g/dL Procalcitonin 0.51 H (0.02-0.09) ng/mL 07/29/21 07/29/21 07/30/21 Range/Units 22:19 23:48 06:10 RBC (3.80-5.40) m/uL Hgb (11.4-16.0) gm/dL Hct (34.0-46.0) % MCHC (31.0-37.0) g/dL RDW (11.5-15.5) % Plt Count (150-450) k/uL Potassium 3.3 L (3.5-5.5) mmol/L Anion Gap 9.10 L (10.00-18.00) mmol/L BUN/Creatinine Ratio 24.01 H (12.00-20.00) Ratio POC Glucose (mg/dL) 121 H 100 H (75-99) mg/dL Calcium 7.9 L (8.7-10.3) mg/dL Total Bilirubin <0.20 L (0.30-1.20) mg/dL AST 68 H (13-35) U/L Total Protein 4.6 L (6.2-8.2) g/dL Albumin 2.4 L (3.8-4.9) g/dL Albumin (PEP) (3.80-4.90) g/dL Albumin/Globulin Ratio 1.09 L (1.60-3.17) g/dL Pdgtj-0-Bfarblqcf (0.10-0.40) g/dL Procalcitonin (0.02-0.09) ng/mL 07/30/21 07/30/21 Range/Units 06:10 12:06 RBC 2.90 L (3.80-5.40) m/uL Hgb 7.6 L D (11.4-16.0) gm/dL Hct 24.9 L (34.0-46.0) % MCHC 30.6 L (31.0-37.0) g/dL RDW 20.2 H (11.5-15.5) % Plt Count 51 L (150-450) k/uL Potassium (3.5-5.5) mmol/L Anion Gap (10.00-18.00) mmol/L BUN/Creatinine Ratio (12.00-20.00) Ratio POC Glucose (mg/dL) 102 H (75-99) mg/dL Calcium (8.7-10.3) mg/dL Total Bilirubin (0.30-1.20) mg/dL AST (13-35) U/L Total Protein (6.2-8.2) g/dL Albumin (3.8-4.9) g/dL Albumin (PEP) (3.80-4.90) g/dL Albumin/Globulin Ratio (1.60-3.17) g/dL Jeoia-5-Xauljebgb (0.10-0.40) g/dL Procalcitonin (0.02-0.09) ng/mL Microbiology - Last 24 Hours (Table) 07/28/21 07:02 Blood Culture - Preliminary Blood No Growth after 48 hours Assessment and Plan Assessment: * Generalized weakness, decreased mobility and ambulation, probably multifactorial as reasons mentioned below. Rule out upcoming Parkinson's disease. Patient has mild, intermittent tremors at rest involving the right arm, bradykinesia, dysphagia, moderately increased tone involving the (healthy right side) to Dr. Spivey but on my examination no tremor noted. * Hypoglycemia (multiple episodes of hypoglycemia as low as 40-50's) * Acute on chronic anemia * Acute kidney injury, likely due to very poor oral intake and dehydration--improved * Abnormal hepatic enzymes, also improving * Elevated Depakote level--improved * History of right MCA ischemic stroke with chronic left hemiplegia. * Vitamin B6 deficiency * Seizure disorder * History of brain aneurysms with post-surgical coil over the left MCA (coil) Plan: * Patient's weakness, dysphagia, bradykinesia, increased tone and some resting tremors are suggestive of possible upcoming Parkinson's. Patient may benefit from outpatient NEY Scan to confirm Parkinson's. At this time Parkinson's is difficult to diagnose, as multiple other medical problems that can mask diagnosis. Patient's daughter was recommended for patient to follow up with her neurologist Dr. Yang (she was seen by Dr. Olmedo in past but per family was not evaluated for Parkinson's disease). * Continue aspirin 81 mg. * Patient's Depakote level was quite high 107.8-->63.2. High Depakote level can produce psychomotor retardation, and mental slowing. Patient's dose of Depakote decreased from 500 mg twice a day to Depakote 250 mg in the morning a nd 500 mg at night during this hospital stay (by Dr. Spivey). Patient has not had any seizures for over 2 years, per patient's daughter. * Continue vitamin B6 replacement 50 mg daily. * Please avoid any further hypoglycemia events. Will defer management to primary team. Currently on Dextrose IV. * Will defer anemia to primary team and hematology is consulted. Per patient's daughter, she has been on Depakote for last 3-4 years. * I.D. is on board. * PT, OT and SCHOOL GUARD are consulted. * Nephrology is on board. * Will defer the rest of medical management to the primary team. * Upon discharge, the patient needs to follow-up with Dr. Olmedo (Neurologist) within 1-2 weeks. The plan is discussed with the patient's daughter (Sivan) and her nurse. No further neurological work-up needed. Please notify neurology if any further concerns. Tino Gray M.D. Neuro-Hospitalist Time with Patient: Less than 30
[2021-07-30 16:08] LABS: Glucose,Whole Blood 121 mg/dL (75-99)
[2021-07-30 18:02] LABS: Glucose,Whole Blood 96 mg/dL (75-99)
[2021-07-30 20:17] LABS: Glucose,Whole Blood 102 mg/dL (75-99)
[2021-07-30] MEDS: ARIPiprazole 10 MG TAB PO SCH (21:19)
[2021-07-30] MEDS: DIVALPROEX 500 MG TABLET.DR PO SCH (21:19)
[2021-07-30 22:02] LABS: Glucose,Whole Blood 79 mg/dL (75-99)
--- NOTE | 2021-07-30 22:32 | P.PN ---
Subjective Progress Note Date: 07/30/21 Principal diagnosis: AMS, pancreatitis In f/u today pt states felling pretty good. Denies any nausea, abd pain or diarrhea. Pt remembered me from her last visit Objective - Vital Signs Vital signs: Vital Signs Temp 97.8 F 07/30/21 21:00 Pulse 85 07/30/21 21:00 Resp 16 07/30/21 21:00 BP 120/82 07/30/21 21:00 Pulse Ox 92 L 07/30/21 21:00 Intake & Output 07/30/21 07/30/21 07/31/21 06:59 18:59 06:59 Intake Total 180 600 Output Total 100 Balance 80 600 Weight 47.627 kg Intake: Intake, IV Titration 600 Amount Dextrose 5%-0.9% NaCl 1, 600 000 ml @ 50 mls/hr IV . Q20H [facility] Rx#:[id number] Oral 180 Output: Urine 100 Other: Voiding Method Indwelling Catheter Indwelling Catheter # Voids 0 # Bowel Movements 1 - Constitutional General appearance: Present: average body habitus, cooperative, no acute distress - EENT Eyes: Present: anicteric sclerae, EOMI ENT: Present: hearing grossly normal - Respiratory Respiratory: bilateral: CTA - Cardiovascular Rhythm: regular Heart sounds: normal: S1, S2 - Gastrointestinal General gastrointestinal: Present: normal bowel sounds, soft - Musculoskeletal Musculoskeletal: Present: generalized weakness - Psychiatric Psychiatric: Present: A&O x's 3, appropriate affect - Labs CBC & Chem 7: 07/30/21 06:10 07/30/21 06:10 Labs: Abnormal Lab Results - Last 24 Hours (Table) 07/28/21 07/29/21 07/29/21 Range/Units 07:02 22:19 23:48 RBC (3.80-5.40) m/uL Hgb (11.4-16.0) gm/dL Hct (34.0-46.0) % MCHC (31.0-37.0) g/dL RDW (11.5-15.5) % Plt Count (150-450) k/uL Potassium (3.5-5.5) mmol/L Anion Gap (10.00-18.00) mmol/L BUN/Creatinine Ratio (12.00-20.00) Ratio POC Glucose (mg/dL) 121 H 100 H (75-99) mg/dL Calcium (8.7-10.3) mg/dL Total Bilirubin (0.30-1.20) mg/dL AST (13-35) U/L Total Protein (6.2-8.2) g/dL Albumin (3.8-4.9) g/dL Albumin (PEP) 2.32 L (3.80-4.90) g/dL Albumin/Globulin Ratio (1.60-3.17) g/dL Ctmoj-3-Frupnxxgt 0.41 H (0.10-0.40) g/dL 07/30/21 07/30/21 07/30/21 Range/Units 06:10 06:10 12:06 RBC 2.90 L (3.80-5.40) m/uL Hgb 7.6 L D (11.4-16.0) gm/dL Hct 24.9 L (34.0-46.0) % MCHC 30.6 L (31.0-37.0) g/dL RDW 20.2 H (11.5-15.5) % Plt Count 51 L (150-450) k/uL Potassium 3.3 L (3.5-5.5) mmol/L Anion Gap 9.10 L (10.00-18.00) mmol/L BUN/Creatinine Ratio 24.01 H (12.00-20.00) Ratio POC Glucose (mg/dL) 102 H (75-99) mg/dL Calcium 7.9 L (8.7-10.3) mg/dL Total Bilirubin <0.20 L (0.30-1.20) mg/dL AST 68 H (13-35) U/L Total Protein 4.6 L (6.2-8.2) g/dL Albumin 2.4 L (3.8-4.9) g/dL Albumin (PEP) (3.80-4.90) g/dL Albumin/Globulin Ratio 1.09 L (1.60-3.17) g/dL Tylwe-7-Oisygccbn (0.10-0.40) g/dL 07/30/21 07/30/21 Range/Units 15:47 20:06 RBC (3.80-5.40) m/uL Hgb (11.4-16.0) gm/dL Hct (34.0-46.0) % MCHC (31.0-37.0) g/dL RDW (11.5-15.5) % Plt Count (150-450) k/uL Potassium (3.5-5.5) mmol/L Anion Gap (10.00-18.00) mmol/L BUN/Creatinine Ratio (12.00-20.00) Ratio POC Glucose (mg/dL) 121 H 102 H (75-99) mg/dL Calcium (8.7-10.3) mg/dL Total Bilirubin (0.30-1.20) mg/dL AST (13-35) U/L Total Protein (6.2-8.2) g/dL Albumin (3.8-4.9) g/dL Albumin (PEP) (3.80-4.90) g/dL Albumin/Globulin Ratio (1.60-3.17) g/dL Pxbze-2-Tliqzkjel (0.10-0.40) g/dL Microbiology - Last 24 Hours (Table) 07/25/21 19:15 Blood Culture Gram Stain - Final Blood Blood Culture - Final Staphylococcus epidermidis Coagulase Negative Staph 07/25/21 19:00 Blood Culture Gram Stain - Final Blood Blood Culture - Final Coagulase Negative Staph 07/29/21 11:23 Blood Culture - Preliminary Blood No Growth after 24 hours 07/28/21 07:02 Blood Culture - Preliminary Blood No Growth after 48 hours Assessment and Plan Plan: So far no deficiency or paraproteinemia to account for pt anemia. There are still results pending. Await final results for final recommendations. Change in Hgb noted, ? lab anomaly. Recheck in AM. Transfuse for Hgb <7. Pt was seen by Dr. Mendenhall and did have normal EGD and unremarkable EUS on 06/04/21. No pancreatic mass or adenopathy seen.
--- NOTE | 2021-07-30 23:52 | PN ---
PROGRESS NOTE DATE OF SERVICE: 07/30/2021 REASON FOR FOLLOWUP: Bacteremia. INTERVAL HISTORY: The patient is afebrile. The patient is breathing comfortably. The patient denies having any chest pain, shortness of breath or cough. No abdominal pain or diarrhea. PHYSICAL EXAMINATION: Blood pressure 120/82 with a pulse of 85, temperature is 97.8. She is 92% on room air. General description is a middle-aged female lying in bed in no distress. Respiratory system: Unlabored breathing, clear to auscultation anteriorly. Heart S1, S2. Regular rate and rhythm. Abdomen soft, no tenderness. Extremities: No edema of the feet. LABS: Blood culture repeat has been negative. DIAGNOSTIC IMPRESSION AND PLAN: Patient with positive blood culture with Staph epi, coagulase negative Staph, likely contaminant. Repeat culture has been negative. The patient does not need antibiotic therapy at this point. ID service will sign off. Please call back with a question for infectious disease care. MMODL / IJN: [id number] /
--- NOTE | 2021-07-31 00:19 | PN ---
PROGRESS NOTE 61-year-old black female. She is much improved today. Giving appropriate answers, sitting up, eating food. O2 92%, blood pressure 120/82, pulse 85, respiratory 16 to 14, temp 97.8. Cardiovascular S1, S2. Lungs clear. GI soft. Hematology: Negative Homans. Psych: Fair mood and affect. ASSESSMENT: 1. Acute pancreatitis. 2. Acute on chronic anemia. 3. Depakote toxicity. 4. Hypokalemia. 5. Paranoid with delusions. Prognosis is guarded. Wait for clearance per Hematology prior to discharge. Transfuse if less than 7. Prognosis guarded. MMODL / IJN: [id number] /
[2021-07-31 00:21] LABS: Glucose,Whole Blood 98 mg/dL (75-99)
[2021-07-31 01:56] LABS: Glucose,Whole Blood 107 mg/dL (75-99)
[2021-07-31 04:11] LABS: Glucose,Whole Blood 106 mg/dL (75-99)
[2021-07-31] MEDS: LEVOTHYROXINE 50 MCG TAB PO SCH ×2 (05:42→08:08)
[2021-07-31] MEDS: DEXTROSE 5%-0.9% NACL 1,000 ML IV SCH ×2 (05:42→08:21)
[2021-07-31 05:56] LABS: Glucose,Whole Blood 112 mg/dL (75-99)
[2021-07-31 07:01] LABS: Anisocytosis Moderate; Basophils % (A) 0 %; Eosinophils # (A) 0.4 k/uL (0-0.7); Eosinophils % (A) 7 %; HCT 26.4 % (34.0-46.0); HGB 8.2 gm/dL (11.4-16.0); Hypochromasia Marked; Lymphocytes # (A) 2.6 k/uL (1.0-4.8); Lymphocytes % (A) 44 %; MCH 26.7 pg (25.0-35.0); MCV 85.9 fL (80.0-100.0); Mean Platelet Volume 7.8; Microcytosis Slight; Monocytes # (A) 0.5 k/uL (0-1.0); Monocytes % (A) 9 %; Neutrophils # (A) 2.3 k/uL (1.3-7.7); Neutrophils % (A) 39 %; RBC 3.08 m/uL (3.80-5.40); RDW 20.1 % (11.5-15.5); WBC 5.9 k/uL (3.8-10.6)
[2021-07-31 07:15] LABS: Platelet Count 73 k/uL (150-450)
[2021-07-31 07:25] LABS: Glucose 91 mg/dL (74-99)
[2021-07-31 07:26] LABS: ALT 32 U/L (4-34); AST 64 U/L (14-36); African American GFR (CKD) 82 (>60 ml/min/1.73 sqM); Albumin 2.2 g/dL (3.5-5.0); Albumin/Globulin Ratio 0.7; Alkaline Phosphatase 189 U/L (38-126); Blood Urea Nitrogen 19 mg/dL (7-17); Calcium 8.4 mg/dL (8.4-10.2); Carbon Dioxide 25 mmol/L (22-30); Globulin 3.1 g/dL; Non-African American GFR(CKD) 71 (>60 ml/min/1.73 sqM); Potassium 4.1 mmol/L (3.5-5.1); Sodium 142 mmol/L (137-145); Total Bilirubin 0.4 mg/dL (0.2-1.3); Total Protein 5.3 g/dL (6.3-8.2)
[2021-07-31 07:36] LABS: Anion Gap 4 mmol/L; Chloride 113 mmol/L (98-107)
[2021-07-31] MEDS: PYRIDOXINE 50 MG TAB PO SCH (08:08)
[2021-07-31] MEDS: METOPROLOL TARTRATE 50 MG TAB PO SCH ×2 (08:08→22:26)
[2021-07-31] MEDS: SERTRALINE 100 MG TAB PO SCH (08:08)
[2021-07-31] MEDS: HEPARIN SODIUM,PORCINE/PF 5,000 UNIT/0.5 ML SYRINGE SQ SCH ×2 (08:09→22:26)
[2021-07-31] MEDS: PANTOPRAZOLE 40 MG TABLET PO SCH (08:09)
[2021-07-31] MEDS: DIVALPROEX 250 MG TABLET.DR PO SCH (08:09)
[2021-07-31] MEDS: ASPIRIN 81 MG PO SCH (08:09)
[2021-07-31 08:17] LABS: Glucose,Whole Blood 89 mg/dL (75-99)
[2021-07-31 09:09] LABS: Methylmalonic Acid 0.17 umol/L (<0.40)
[2021-07-31 09:57] LABS: Glucose,Whole Blood 93 mg/dL (75-99)
--- NOTE | 2021-07-31 10:38 | P.PN ---
Progress Note - Text Progress Note Date: 07/31/21 Patient will require hospital bed at discharge as patient has history of CVA with left hemiparesis, generalized weakness, requiring frequent repositioning, not easily obtainable in a regular bed. The impression and plan of care has been dictated as directed. : I performed a history and examination of this patient, discussed the same with the dictator. I agree with the dictator's note ,documented as a scribe. Any additional findings or plans will be noted.
[2021-07-31 11:52] LABS: Glucose,Whole Blood 90 mg/dL (75-99)
[2021-07-31 12:04] LABS: Free Kappa Lt Chain Qnt, Serum 5.05 mg/dL (0.33-1.94)
[2021-07-31 14:50] LABS: Glucose,Whole Blood 90 mg/dL (75-99)
[2021-07-31 15:59] LABS: Glucose,Whole Blood 101 mg/dL (75-99)
[2021-07-31 18:37] LABS: Glucose,Whole Blood 84 mg/dL (75-99)
[2021-07-31 19:58] LABS: Glucose,Whole Blood 120 mg/dL (75-99)
[2021-07-31 22:04] LABS: Glucose,Whole Blood 97 mg/dL (75-99)
[2021-07-31] MEDS: DIVALPROEX 500 MG TABLET.DR PO SCH (22:26)
[2021-07-31] MEDS: ARIPiprazole 10 MG TAB PO SCH (22:27)
[2021-08-01 00:06] LABS: Glucose,Whole Blood 95 mg/dL (75-99)
[2021-08-01 02:04] LABS: Glucose,Whole Blood 85 mg/dL (75-99)
[2021-08-01 04:55] LABS: Glucose,Whole Blood 76 mg/dL (75-99)
[2021-08-01 05:59] LABS: Anisocytosis Moderate; Basophils % (A) 0 %; Eosinophils # (A) 0.5 k/uL (0-0.7); Eosinophils % (A) 6 %; HCT 25.4 % (34.0-46.0); HGB 7.9 gm/dL (11.4-16.0); Hypochromasia Marked; Lymphocytes # (A) 3.4 k/uL (1.0-4.8); Lymphocytes % (A) 44 %; MCH 26.8 pg (25.0-35.0); MCV 86.2 fL (80.0-100.0); Mean Platelet Volume 7.6; Microcytosis Slight; Monocytes # (A) 0.7 k/uL (0-1.0); Monocytes % (A) 9 %; Neutrophils # (A) 2.9 k/uL (1.3-7.7); Neutrophils % (A) 37 %; RBC 2.94 m/uL (3.80-5.40); RDW 20.2 % (11.5-15.5); WBC 7.7 k/uL (3.8-10.6)
[2021-08-01 06:00] LABS: Glucose,Whole Blood 134 mg/dL (75-99)
[2021-08-01 06:07] LABS: Platelet Count 78 k/uL (150-450)
[2021-08-01] MEDS: DEXTROSE 5%-0.9% NACL 1,000 ML IV SCH (06:11)
[2021-08-01 08:10] LABS: Glucose,Whole Blood 87 mg/dL (75-99)
[2021-08-01] MEDS: PANTOPRAZOLE 40 MG TABLET PO SCH (09:13)
[2021-08-01] MEDS: SERTRALINE 100 MG TAB PO SCH (09:13)
[2021-08-01] MEDS: METOPROLOL TARTRATE 50 MG TAB PO SCH ×2 (09:13→21:43)
[2021-08-01] MEDS: PYRIDOXINE 50 MG TAB PO SCH (09:13)
[2021-08-01] MEDS: LEVOTHYROXINE 50 MCG TAB PO SCH (09:14)
[2021-08-01] MEDS: HEPARIN SODIUM,PORCINE/PF 5,000 UNIT/0.5 ML SYRINGE SQ SCH ×2 (09:14→21:42)
[2021-08-01] MEDS: ASPIRIN 81 MG PO SCH (09:14)
[2021-08-01] MEDS: DIVALPROEX 250 MG TABLET.DR PO SCH (09:14)
[2021-08-01 09:50] LABS: Glucose,Whole Blood 95 mg/dL (75-99)
[2021-08-01 12:08] LABS: Glucose,Whole Blood 107 mg/dL (75-99)
--- NOTE | 2021-08-01 13:25 | P.PN ---
Subjective Progress Note Date: 08/01/21 Patient is seen at bedside and per nurse no new neurological problems. Patient is hoping to be discharge home soon. Objective - Vital Signs Vital signs: Vital Signs Temp 98 F 08/01/21 11:43 Pulse 101 H 08/01/21 11:43 Resp 16 08/01/21 11:43 BP 116/82 08/01/21 11:43 Pulse Ox 99 08/01/21 11:43 Intake & Output 07/31/21 08/01/21 08/01/21 18:59 06:59 18:59 Intake Total 600 Output Total 300 350 Balance -300 250 Weight 47.627 kg Intake: Intake, IV Titration 600 Amount Dextrose 5%-0.9% NaCl 1, 600 000 ml @ 50 mls/hr IV . Q20H [facility] Rx#:[id number] Output: Urine 300 350 Other: Voiding Method Indwelling Catheter Indwelling Catheter Indwelling Catheter - Exam GENERAL: The patient is lying in bed and is not in acute distress. NEUROLOGICAL: Higher mental function: The patient is awake, alert, oriented to self and place. Regarding time she had to be asked multiple times to answer correctly. Somewhat slow to respond. Patient is following simple commands. No aphasia and no neglect. Cranial nerves: The pupils are round, equal and reactive to light and accommodation. Visual campoverde are full to confrontation throughout. Extraocular movement is intact no nystagmus is noted. Facial sensation is normal to touch throughout. The facial strength is normal throughout. Tongue is midline and moved [id number] without any difficulty. No dysarthria is noted. Motor: The strength is able to lift bilateral upper extremities above gravity but weaker over the left side and has spasticity over left side (mostly upper extremity). Lowers are limited but moves side to side proximally (more right than left). Dorsiflexion and plantarflexion of ankles are 3/5 (more right >left). Has resting tremor of right upper extremity. No increased rigidity or tone over the right upper. WORK-UP: * Computed tomography scan of the head of 07/25/2021, showed no acute process/CVA, when compared with computed tomography scan of 04/12/2021. No new stroke. Nobody reported it is reported the patient has right MCA territory infarct is seen again. Patient has prominent CSF space and ventricles with the right lateral ventricle posterior horn ex vacuo dilation stable. * Her hemoglobin A1c is 4.7. * Depakote level on presentation is 107.8 and has improved, now 63.2. * B12 817, folate 10.0. * TSH: 3.640 * Ammonia <9. * AST on presentation is 187-->68 * ALT: on presentation 66-->37 * Initial blood culture on 07/25/21 is staph epidermis. Repeat culture on 0 07/28/21: No grow. * U/A: Negative for UTI * Coronavirus PCR is not detected * 2-D echocardiogram was reported as mild concentric left ventricular hypertrophy. Ejection fraction of 55-60%. Left atrium is mildly dilated. * - Labs CBC & Chem 7: 08/01/21 05:29 07/31/21 06:44 Labs: Abnormal Lab Results - Last 24 Hours (Table) 07/31/21 07/31/21 07/31/21 Range/Units 06:44 15:58 19:56 RBC (3.80-5.40) m/uL Hgb (11.4-16.0) gm/dL Hct (34.0-46.0) % RDW (11.5-15.5) % Plt Count (150-450) k/uL POC Glucose (mg/dL) 101 H 120 H (75-99) mg/dL Lipase 4288 H (23-300) U/L 08/01/21 08/01/21 08/01/21 Range/Units 05:29 05:58 12:06 RBC 2.94 L (3.80-5.40) m/uL Hgb 7.9 L (11.4-16.0) gm/dL Hct 25.4 L (34.0-46.0) % RDW 20.2 H (11.5-15.5) % Plt Count 78 L (150-450) k/uL POC Glucose (mg/dL) 134 H 107 H (75-99) mg/dL Lipase (23-300) U/L Microbiology - Last 24 Hours (Table) 07/28/21 07:02 Blood Culture - Preliminary Blood No Growth after 96 hours 07/29/21 11:23 Blood Culture - Preliminary Blood No Growth after 48 hours Assessment and Plan Assessment: * Generalized weakness, decreased mobility and ambulation, probably multifactorial as reasons mentioned below. Rule out upcoming Parkinson's disease. Patient has mild, intermittent tremors at rest involving the right arm, bradykinesia, dysphagia, moderately increased tone involving the (healthy right side). 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 * Vitamin B6 deficiency * Seizure disorder * History of brain aneurysms with post-surgical coil over the left MCA (coil) Plan: * Patient's weakness, dysphagia, bradykinesia, increased tone and some resting tremors are suggestive of possible upcoming Parkinson's. Patient may benefit from outpatient NEY Scan to confirm Parkinson's. At this time Parkinson's is difficult to diagnose, as multiple other medical problems that can mask diagnosis. Patient's daughter was recommended for patient to follow up with her neurologist Dr. Yang (she was seen by Dr. Olmedo in past but per family was not evaluated for Parkinson's disease). * Continue aspirin 81 mg. * Patient's Depakote level was quite high 107.8-->63.2. High Depakote level can produce psychomotor retardation, and mental slowing. Patient's dose of Depakote decreased from 500 mg twice a day to Depakote 250 mg in the morning and 500 mg at night during this hospital stay (by Dr. Spivey). Patient has not had any seizures for over 2 years, per patient's daughter. * Continue vitamin B6 replacement 50 mg daily. * Please avoid any further hypoglycemia events. Will defer management to primary team. Currently on Dextrose IV. * Will defer anemia to primary team and hematology is consulted. Per patient's daughter, she has been on Depakote for last 3-4 years. * I.D. is on board. * PT, OT and UNDERWRITING INTERN are consulted. * Nephrology is on board. * Will defer the rest of medical management to the primary team. * Upon discharge, the patient needs to follow-up with Dr. Yang (Neurologist) within 1-2 weeks. The plan is discussed with the patient's nurse and her daughter (Sivan) was informed of plan. No further neurological work-up needed. Please notify neurology if any further concerns. Tino Gray M.D. Neuro-Hospitalist Time with Patient: Less than 30
[2021-08-01] MEDS ORDERED: IOPAMIDOL CONTRAST (ORAL USE) VIAL PO PRN (16:27)
[2021-08-01 16:48] LABS: Glucose,Whole Blood 95 mg/dL (75-99)
[2021-08-01 17:37] LABS: Glucose,Whole Blood 74 mg/dL (75-99)
--- NOTE | 2021-08-01 19:24 | CT ---
EXAMINATION TYPE: CT abdomen wo con DATE OF EXAM: 08/01/2021 COMPARISON: CT chest 07/28/2021. HISTORY: abd pain, acute kidney injry, pancreatitis CT DLP: 234.4 mGycm Automated exposure control for dose reduction was used. TECHNIQUE: Helical acquisition of images was performed from the lung bases through the top of iliac crest to include entire abdomen. CONTRAST: Performed with Oral Contrast and without IV contrast. FINDINGS: LUNG BASES: Mild to moderate bibasilar opacities with small right greater than left pleural effusions . LIVER/GB: No significant abnormality is appreciated. PANCREAS: No significant abnormality is seen. SPLEEN: No significant abnormality is seen. ADRENALS: No significant abnormality is seen. KIDNEYS: No significant abnormality is seen. VISUALIZED BOWEL: No significant abnormality is seen. LYMPH NODES: No significant abnormality is appreciated. OSSEOUS STRUCTURES: No acute abnormality is seen. Chronic appearing mild to moderate L2 compression fracture. FREE AIR: No free air is visualized. OTHER: Mild anasarca. Moderate atherosclerotic disease. IMPRESSION: PERSISTENT SMALL PLEURAL EFFUSION. BIBASILAR OPACITIES. MILD ANASARCA. OTHERWISE NO DEFINITIVE ACUTE ABNORMALITY OF THE ABDOMEN. CHRONIC APPEARING L2 COMPRESSION FRACTURE.
[2021-08-01 20:13] LABS: Glucose,Whole Blood 83 mg/dL (75-99)
[2021-08-01] MEDS: DIVALPROEX 500 MG TABLET.DR PO SCH (21:42)
[2021-08-01] MEDS: ARIPiprazole 10 MG TAB PO SCH (21:43)
[2021-08-01 22:01] LABS: Glucose,Whole Blood 60 mg/dL (75-99)
[2021-08-01 22:19] LABS: Glucose,Whole Blood 68 mg/dL (75-99)
[2021-08-01 22:51] LABS: Glucose,Whole Blood 86 mg/dL (75-99)
[2021-08-01 23:53] LABS: Glucose,Whole Blood 104 mg/dL (75-99)
[2021-08-02 02:16] LABS: Glucose,Whole Blood 71 mg/dL (75-99)
[2021-08-02 04:44] LABS: Glucose,Whole Blood 66 mg/dL (75-99)
[2021-08-02] MEDS: LEVOTHYROXINE 50 MCG TAB PO SCH (05:16)
[2021-08-02 05:29] LABS: Glucose,Whole Blood 81 mg/dL (75-99)
[2021-08-02 06:05] LABS: Glucose,Whole Blood 92 mg/dL (75-99)
[2021-08-02 06:51] LABS: Anisocytosis Moderate; HCT 27.9 % (34.0-46.0); HGB 8.2 gm/dL (11.4-16.0); Hypochromasia Marked; MCH 26.1 pg (25.0-35.0); MCHC 29.4 g/dL (31.0-37.0); MCV 88.8 fL (80.0-100.0); Mean Platelet Volume 7.4; Platelet Count 110 k/uL (150-450); RBC 3.14 m/uL (3.80-5.40); RDW 20.5 % (11.5-15.5)
[2021-08-02 07:56] LABS: Glucose,Whole Blood 61 mg/dL (75-99)
[2021-08-02 08:22] LABS: Glucose,Whole Blood 46 mg/dL (75-99)
[2021-08-02 08:47] LABS: Glucose,Whole Blood 49 mg/dL (75-99)
[2021-08-02 09:15] LABS: Glucose,Whole Blood 89 mg/dL (75-99)
[2021-08-02 09:59] LABS: Neutrophils % (M) 42 %; Nucleated Red Blood Cells 1 /100 WBC (0-0); Total Cells Counted 200
[2021-08-02 10:01] LABS: Glucose,Whole Blood 101 mg/dL (75-99)
[2021-08-02 10:03] LABS: Eosinophils # (M) 0.57 k/uL (0-0.7); Lymphocytes # (M) 4.47 k/uL (1.0-4.8); Monocytes # (M) 0.57 k/uL (0-1.0); Neutrophils # (M) 3.99 k/uL (1.3-7.7); Poikilocytosis (M) Present; WBC 9.5 k/uL (3.8-10.6)
[2021-08-02 10:04] LABS: RBC Fragments Present; Target Cells Present
[2021-08-02 10:05] LABS: Lipase 994 U/L (14-63)
[2021-08-02 10:07] LABS: ALT 28 U/L (8-44); AST 50 U/L (13-35); African American GFR (CKD) 78.9 (60.0-200.0); Albumin 2.7 g/dL (3.8-4.9); Albumin/Globulin Ratio 0.96 (1.60-3.17); Alkaline Phosphatase 137 U/L (41-126); BUN/Creat Ratio 23.33 Ratio (12.00-20.00); Calcium 8.5 mg/dL (8.7-10.3); Carbon Dioxide 20.1 mmol/L (20.0-27.5); Chloride 108 mmol/L (96-109); Globulin 2.8 g/dL (1.6-3.3); Glucose 79 mg/dL (70-110); Potassium 5.6 mmol/L (3.5-5.5); Sodium 138 mmol/L (135-145); Total Bilirubin <0.20 mg/dL (0.30-1.20); Total Protein 5.5 g/dL (6.2-8.2)
[2021-08-02] MEDS: PANTOPRAZOLE 40 MG TABLET PO SCH (11:00)
[2021-08-02] MEDS: SERTRALINE 100 MG TAB PO SCH (11:00)
[2021-08-02] MEDS: PYRIDOXINE 50 MG TAB PO SCH (11:00)
[2021-08-02] MEDS: ASPIRIN 81 MG PO SCH (11:00)
[2021-08-02] MEDS: METOPROLOL TARTRATE 50 MG TAB PO SCH ×2 (11:00→21:18)
[2021-08-02] MEDS: DIVALPROEX 250 MG TABLET.DR PO SCH (11:01)
[2021-08-02] MEDS: HEPARIN SODIUM,PORCINE/PF 5,000 UNIT/0.5 ML SYRINGE SQ SCH ×2 (11:01→21:18)
[2021-08-02 12:18] LABS: Glucose,Whole Blood 99 mg/dL (75-99)
--- NOTE | 2021-08-02 13:29 | P.CONS ---
History of Present Illness - Reason for Consult Consult date: 08/02/21 Pancreatitis Requesting physician: Mohit Harley - Chief Complaint Altered mental status changes - History of Present Illness This a 60-year-old -[place] female who presented to the emergency department on 07/25/2021 for altered mental status changes. She has a past medical history of CVA/TIA, hyperlipidemia, hypertension, chronic pancreatitis and brain aneurysms with coiling. Apparently the patient has been seen in neurology Dr. Yang and have been working her up for MS. Patient has a history of abdominal surgeries including section and cholecystectomy. There've been multiple consultants added to patient's care including neurology and infectious disease. Patient with positive blood culture with staph epi, the repeat that was negative. She was initially on vancomycin which looks like was discontinued on 07/28/2021. Infectious disease believed it was contamination and have not required any further antibiotics. Patient had an elevated lipase on 07/31/2021 of 4288, repeat on 08/01/2021 3723 for which gastroenterology was consulted for pancreatitis. The patient reports she's not had any abdominal pain since she's been in the hospital. She was previously seen on an admission in March for pancreatitis with concerns for a possible pancreatic mass and had followed up outpatient with oncology. She saw Dr. Mendenhall for an ERCP/EUS on 06/04/2021 which was reported by oncology as unremarkable. Patient did have an elevated CA-19-9 of 155. Looking at the patient's chart she was recently started on Abilify by [facility] for night deliriums. Patient underwent EGD 12/06/2020 by prior history of peptic ulcer disease, findings included antral gastritis. Repeat labs today show WBC 9.5 hemoglobin 8.2 platelet count 110,000 total bilirubin less than 0.2 AST 50 ALT 28 alkaline phosphatase 137 lipase 994. Patient continues to have no abdominal pain, no nausea or vomiting, no decreased appetite. She is having normal bowel movements and eating well. She had a CT of the abdomen and pelvis that shows persistent small pleural effusion. Bibasilar opacities. Mild anasarca. Otherwise no definitive acute abnormality of the abdomen. Review of Systems REVIEW OF SYSTEMS: CARDIOPULMONARY: No chest pain or shortness of breath. Gastrointestinal: No abdominal pain. Decreased appetite or weight loss. No nausea or vomiting. No hematemesis, coffee-ground emesis. No rectal bleeding, or melena. GENITOURINARY: No dysuria or hematuria. MUSCULOSKELETAL: Reports normal range of motion., Joint pain. SKIN: No rashes. No jaundice. ENDOCRINE: No chills, fevers. No excessive weight gain or loss. No polydipsia or polyuria. PSYCHIATRIC: Unremarkable. NEUROLOGY: No change in mental status. Denies dizziness, headache. ENT: Vision unremarkable. CONSTITUTIONAL: No recent weight loss. No fever, chills, night sweats. 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 gout, PANCREATITIS, pseudoseizures. UTI, gallstones, LIPS AND ONE HAND SHAKES SOMETIMES, hx multiple brain aneursyms History of Any Multi-Drug Resistant Organisms: ESBL Year Discovered:: 03/18/18 ESBL E.coli MDRO Source:: Urine Past Surgical History: Section, Cholecystectomy, Orthopedic Surgery Additional Past Surgical History / Comment(s): hx aneurysms- COILS AND STENTS TO BRAIN, repair tendons r/t gout BILATERAL FEET. Past Anesthesia/Blood Transfusion Reactions: No Reported Reaction Additional Past Anesthesia/Blood Transfusion Reaction / Comm: PT HAS HAD BLOOD TRANSFUSIONS FOR ANEMIA-NO REACTION. Past Psychological History: Depression, Schizophrenia Additional Psychological History / Comment(s): paranoid schizophrenia Smoking Status: Unknown if ever smoked Past Alcohol Use History: None Reported Additional Past Alcohol Use History / Comment(s): STARTED SMOKING AT AGE 14, SMOKED 1PPD, QUIT >20 YEARS AGO BUT SMOKED AGAIN BRIEFLY WHEN AT [place] BUT QUIT 1.5 YERAS AGO Past Drug Use History: Cocaine Additional Drug Use History / Comment(s): No current use. Last used 15 yrs ago. - Past Family History Sister(s) Family Medical History: Myocardial Infarction ([place]) Father Family Medical History: Cancer Additional Family Medical History / Comment(s): throat, lung, and rectal cancer Mother Family Medical History: Myocardial Infarction ([place]) Additional Family Medical History / Comment(s): stroke Medications and Allergies Home Medications Medication Instructions Recorded Confirmed Type Aspirin EC [Ecotrin Low Dose] 81 mg PO DAILY 04/12/16 07/25/21 History Metoprolol Tartrate 100 mg PO BID 01/04/17 07/25/21 History Sertraline [Zoloft] 100 mg PO DAILY 01/04/17 07/25/21 History Omeprazole [PriLOSEC] 20 mg PO DAILY 02/09/20 07/25/21 History Atorvastatin [Lipitor] 20 mg PO HS #30 tab 02/13/20 07/25/21 Rx Divalproex Sodium [Depakote] 500 mg PO BID 04/23/20 07/25/21 History ARIPiprazole [Abilify] 10 mg PO HS 04/08/21 07/25/21 History Furosemide [Lasix] 20 mg PO DAILY 90 Days #90 tab 04/12/21 07/25/21 Rx Sertraline [Zoloft] 25 mg PO DAILY 07/25/21 07/25/21 History Allergies Allergy/AdvReac Type Severity Reaction Status Date / Time No Known Allergies Allergy Verified 07/25/21 21:20 Physical Exam Vitals: Vital Signs Temp Pulse Resp BP BP Pulse Ox 08/02/21 10:58 103 H 114/73 08/02/21 04:38 98.8 F 97 16 109/77 95 08/01/21 20:32 98.7 F 84 18 118/79 94 L 08/01/21 11:43 98 F 101 H 16 116/82 99 Intake and Output 08/01/21 08/02/21 08/02/21 22:59 06:59 14:59 Intake Total 600 Output Total 700 500 Balance -700 100 Intake: Oral 600 Output: Urine 700 500 Other: Voiding Method Indwelling Catheter # Bowel Movements 1 1 General appearance: The patient is alert, oriented, appears in no acute distress. HET: Head is normocephalic and atraumatic. Conjunctiva pink. Sclera anicteric. Neck: Supple without lymphadenopathy. Trachea midline. Heart: S1 S2. Regular rate and rhythm. Lungs: Clear to auscultation. Abdomen: Soft, nontender, nondistended with bowel sounds. No guarding or rigidity. Skin: No rashes. No jaundice. Extremities: Normal skin color and turgor. No pedal edema. Neurological: No focal deficits. Alert and oriented x3. Results CBC & Chem 7: 08/02/21 05:52 08/02/21 05:52 Labs: Abnormal Lab Results - Last 24 Hours (Table) 08/01/21 08/01/21 08/01/21 Range/Units 05:29 12:06 17:36 RBC (3.80-5.40) m/uL Hgb (11.4-16.0) gm/dL Hct (34.0-46.0) % MCHC (31.0-37.0) g/dL RDW (11.5-15.5) % Plt Count (150-450) k/uL Nucleated RBCs (0-0) /100 WBC Potassium (3.5-5.5) mmol/L Anion Gap (10.00-18.00) mmol/L BUN/Creatinine Ratio (12.00-20.00) Ratio POC Glucose (mg/dL) 107 H 74 L (75-99) mg/dL Calcium (8.7-10.3) mg/dL Total Bilirubin (0.30-1.20) mg/dL AST (13-35) U/L Alkaline Phosphatase (41-126) U/L Total Protein (6.2-8.2) g/dL Albumin (3.8-4.9) g/dL Albumin/Globulin Ratio (1.60-3.17) g/dL Lipase 3723 H (23-300) U/L 08/01/21 08/01/21 08/01/21 Range/Units 22:00 22:18 23:51 RBC (3.80-5.40) m/uL Hgb (11.4-16.0) gm/dL Hct (34.0-46.0) % MCHC (31.0-37.0) g/dL RDW (11.5-15.5) % Plt Count (150-450) k/uL Nucleated RBCs (0-0) /100 WBC Potassium (3.5-5.5) mmol/L Anion Gap (10.00-18.00) mmol/L BUN/Creatinine Ratio (12.00-20.00) Ratio POC Glucose (mg/dL) 60 L 68 L 104 H (75-99) mg/dL Calcium (8.7-10.3) mg/dL Total Bilirubin (0.30-1.20) mg/dL AST (13-35) U/L Alkaline Phosphatase (41-126) U/L Total Protein (6.2-8.2) g/dL Albumin (3.8-4.9) g/dL Albumin/Globulin Ratio (1.60-3.17) g/dL Lipase (23-300) U/L 08/02/21 08/02/21 08/02/21 Range/Units 02:16 04:43 05:52 RBC (3.80-5.40) m/uL Hgb (11.4-16.0) gm/dL Hct (34.0-46.0) % MCHC (31.0-37.0) g/dL RDW (11.5-15.5) % Plt Count (150-450) k/uL Nucleated RBCs (0-0) /100 WBC Potassium 5.6 H (3.5-5.5) mmol/L Anion Gap 9.90 L (10.00-18.00) mmol/L BUN/Creatinine Ratio 23.33 H (12.00-20.00) Ratio POC Glucose (mg/dL) 71 L 66 L (75-99) mg/dL Calcium 8.5 L (8.7-10.3) mg/dL Total Bilirubin <0.20 L (0.30-1.20) mg/dL AST 50 H (13-35) U/L Alkaline Phosphatase 137 H (41-126) U/L Total Protein 5.5 L (6.2-8.2) g/dL Albumin 2.7 L (3.8-4.9) g/dL Albumin/Globulin Ratio 0.96 L (1.60-3.17) g/dL Lipase 994 H (23-300) U/L 08/02/21 08/02/21 08/02/21 Range/Units 05:52 07:54 08:18 RBC 3.14 L (3.80-5.40) m/uL Hgb 8.2 L (11.4-16.0) gm/dL Hct 27.9 L (34.0-46.0) % MCHC 29.4 L (31.0-37.0) g/dL RDW 20.5 H (11.5-15.5) % Plt Count 110 L (150-450) k/uL Nucleated RBCs 1 H (0-0) /100 WBC Potassium (3.5-5.5) mmol/L Anion Gap (10.00-18.00) mmol/L BUN/Creatinine Ratio (12.00-20.00) Ratio POC Glucose (mg/dL) 61 L 46 L (75-99) mg/dL Calcium (8.7-10.3) mg/dL Total Bilirubin (0.30-1.20) mg/dL AST (13-35) U/L Alkaline Phosphatase (41-126) U/L Total Protein (6.2-8.2) g/dL Albumin (3.8-4.9) g/dL Albumin/Globulin Ratio (1.60-3.17) g/dL Lipase (23-300) U/L 08/02/21 08/02/21 Range/Units 08:44 09:59 RBC (3.80-5.40) m/uL Hgb (11.4-16.0) gm/dL Hct (34.0-46.0) % MCHC (31.0-37.0) g/dL RDW (11.5-15.5) % Plt Count (150-450) k/uL Nucleated RBCs (0-0) /100 WBC Potassium (3.5-5.5) mmol/L Anion Gap (10.00-18.00) mmol/L BUN/Creatinine Ratio (12.00-20.00) Ratio POC Glucose (mg/dL) 49 L 101 H (75-99) mg/dL Calcium (8.7-10.3) mg/dL Total Bilirubin (0.30-1.20) mg/dL AST (13-35) U/L Alkaline Phosphatase (41-126) U/L Total Protein (6.2-8.2) g/dL Albumin (3.8-4.9) g/dL Albumin/Globulin Ratio (1.60-3.17) g/dL Lipase (23-300) U/L Microbiology - Last 24 Hours (Table) 07/28/21 07:02 Blood Culture - Preliminary Blood No Growth after 120 hours 07/29/21 11:23 Blood Culture - Preliminary Blood No Growth after [address] scan - abdomen: report reviewed (persistent small pleural effusion. Bibasilar opacities. Mild anasarca. Otherwise no definitive acute abnormality of the abdomen.) Assessment and Plan (1) Pancreatitis Narrative/Plan: A 61-year-old -[place] who came in with altered mental status changes on 07/25/2021. She was previously admitted in March and diagnosed with a pancreatic mass per computed tomography scan with recommendations for outpatient follow-up with oncology and advanced endoscopist for EUS/ERCP. According to oncology's notes patient had followed up with Dr. Mendenhall for EUS and findings w ere unremarkable. On admission patient was noted to have positive blood cultures and was started on vancomycin which was discontinued on 07/28/2020. Patient also recently started Abilify outpatient as well as is being followed for possible MS. She denies any abdominal pain, loss of appetite, nausea or vomiting. 2 days ago patient had a lipase of 4288 which has been gradually improving with a repeat today of 994. Total bilirubin 0.2 AST 50 ALT 28 alkaline phosphatase 137. She did have a CA 1999 that was mildly elevated at 155. Has asymptomatic pancreatitis as evidenced by elevated lipase. Could possibly be due to medication. Computed tomography scan is unremarkable at this time. She is alert he had an EUS. Would be nice to get the report. Patient is not candidate for MRI as she has had a history of brain aneurysm with coiling. Continue to monitor and treat symptomatically. Current Visit: Yes Status: Acute Code(s): K85.90 - ACUTE PANCREATITIS WITHOUT NECROSIS OR INFECTION, UNSP SNOMED Code(s): 91712913 Plan: 1. Continue symptomatic and supportive care 2. Please try to get ERCP/EUS report from Dr. Mendenhall 3. Patient has asymptomatic pancreatitis, no further workup indicated. Certainly medication induced 4. Diet as tolerated 5. RODRIGUEZ, IgG 4 and triglycerides ordered 6. Patient to follow-up with gastroenterology on discharge Thank you for allowing us to participate in the care of the patient, the GI service will sign off, gastroenterology will not be available at the hospital this weekend. If further evaluation by gastroenterology is required the patient will need transfer as per the primary team's discretion. Dr. Briseyda Juárez I agree with the dictator's note, documented as a scribe by Toña Demarco.
--- NOTE | 2021-08-02 14:12 | P.GSCN ---
History of Present Illness Consult date: 08/02/21 History of present illness: CHIEF COMPLAINT: Altered mental status changes Reason for consult pancreatitis HISTORY OF PRESENT ILLNESS: This is a 61 year-old -[place] female who presented to the emergency room on 07/25/2021 with altered mental status changes. Patient seen by neurology during this admission. She is undergoing workup for Parkinson's. Patient was found to have elevated lipase level of 4288 on 07/31/2021 patient does have a known history of chronic pancreatitis. Her lipase is trending downwards. Patient denies any abdominal pain. She is tolerating a regular diet. Denies any nausea or vomiting. Patient had an EUS study with Dr Mendenhall on 06/04/2021 which was unremarkable per oncology service. Computed tomography scan of abdomen and pelvis showed no acute abnormality of the abdomen. Persistent small pleural effusion. Bibasilar opacities. Mild anasarca. Chronic appearing L2 compression fracture. Patient is also being seen by GI service and they felt pancreatitis may be medication induced. They are trying to obtain the EUS report from Dr. Mendenhall. Patient also has history of brain aneurysm with stents and coils and unable to have an MRCP done. Patient seen and examined with Dr. 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 ALLERGIES: See list. SOCIAL HISTORY: No illicit drug use. REVIEW OF SYSTEMS: CONSTITUTIONAL: Denies fever or chills. HEENT: Denies blurred vision, vision changes, or eye pain. Denies hemoptysis CARDIOVASCULAR: Denies chest pain or pressure. RESPIRATORY: No shortness of breath. GASTROINTESTINAL: See HPI for pertinent findings HEMATOLOGIC: Denies bleeding disorders. GENITOURINARY: Denies any blood in urine or increased urinary frequency. SKIN: Denies pruitis. Denies rash. PHYSICAL EXAM: VITAL SIGNS: Reviewed GENERAL: Well-developed in no acute distress. HEENT: No sclera icterus. Extraocular movements grossly intact. Moist buccal mucosa. Head is atraumatic, normocephalic. No nasal drainage. ABDOMEN: Soft. Nondistended. Nontender NEUROLOGIC: Alert and oriented. Cranial nerves II through XII grossly intact. LABORATORY DATA: WBC is 9.5 hemoglobin 8.2 platelets 110 sodium 138 potassium 5.6 creatinine 0.9 AST 50 ALT 28 alk phos 137 Triglycerides 120 Lipase trending down from 4288-994 IMAGING: Computed tomography scan of abdomen and pelvis showed no acute abnormality of the abdomen. Persistent small pleural effusion. Bibasilar opacities. Mild neo sarca. Chronic appearing L2 compression fracture. ASSESSMENT: 1. Chronic pancreatitis. No abdominal pain. Tolerating diet. PLAN: -No surgical intervention planned -Follow up with GI service -Continue supportive care Thank you for this consultation Physician World Language Teacher note has been reviewed by physician. Signing provider agrees with the documented findings, assessment, and plan of care. 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 gout, PANCREATITIS, pseudoseizures. UTI, gallstones, LIPS AND ONE HAND SHAKES SOMETIMES, hx multiple brain aneursyms History of Any Multi-Drug Resistant Organisms: ESBL Year Discovered:: 03/18/18 ESBL E.coli MDRO Source:: Urine Past Surgical History: Section, Cholecystectomy, Orthopedic Surgery Additional Past Surgical History / Comment(s): hx aneurysms- COILS AND STENTS TO BRAIN, repair tendons r/t gout BILATERAL FEET. Past Anesthesia/Blood Transfusion Reactions: No Reported Reaction Additional Past Anesthesia/Blood Transfusion Reaction / Comm: PT HAS HAD BLOOD TRANSFUSIONS FOR ANEMIA-NO REACTION. Past Psychological History: Depression, Schizophrenia Additional Psychological History / Comment(s): paranoid schizophrenia Smoking Status: Unknown if ever smoked Past Alcohol Use History: None Reported Additional Past Alcohol Use History / Comment(s): STARTED SMOKING AT AGE 14, SMOKED 1PPD, QUIT >20 YEARS AGO BUT SMOKED AGAIN BRIEFLY WHEN AT [place] BUT QUIT 1.5 YERAS AGO Past Drug Use History: Cocaine Additional Drug Use History / Comment(s): No current use. Last used 15 yrs ago. - Past Family History Sister(s) Family Medical History: Myocardial Infarction (VT) Father Family Medical History: Cancer Additional Family Medical History / Comment(s): throat, lung, and rectal cancer Mother Family Medical History: Myocardial Infarction (VT) Additional Family Medical History / Comment(s): stroke Medications and Allergies Home Medications Medication Instructions Recorded Confirmed Type Aspirin EC [Ecotrin Low Dose] 81 mg PO DAILY 04/12/16 07/25/21 History Metoprolol Tartrate 100 mg PO BID 01/04/17 07/25/21 History Sertraline [Zoloft] 100 mg PO DAILY 01/04/17 07/25/21 History Omeprazole [PriLOSEC] 20 mg PO DAILY 02/09/20 07/25/21 History Atorvastatin [Lipitor] 20 mg PO HS #30 tab 02/13/20 07/25/21 Rx Divalproex Sodium [Depakote] 500 mg PO BID 04/23/20 07/25/21 History ARIPiprazole [Abilify] 10 mg PO HS 04/08/21 07/25/21 History Furosemide [Lasix] 20 mg PO DAILY 90 Days #90 tab 04/12/21 07/25/21 Rx Sertraline [Zoloft] 25 mg PO DAILY 07/25/21 07/25/21 History Allergies Allergy/AdvReac Type Severity Reaction Status Date / Time No Known Allergies Allergy Verified 07/25/21 21:20 Surgical - Exam Vital Signs Temp Pulse Resp BP Pulse Ox 97.3 F L 78 16 77/48 93 L 07/25/21 17:52 07/25/21 17:52 07/25/21 17:52 07/25/21 17:52 07/25/21 17:52 Results - Labs 08/02/21 05:52 08/02/21 05:52 Abnormal Lab Results - Last 24 Hours (Table) 08/01/21 08/01/21 08/01/21 Range/Units 05:29 17:36 22:00 RBC (3.80-5.40) m/uL Hgb (11.4-16.0) gm/dL Hct (34.0-46.0) % MCHC (31.0-37.0) g/dL RDW (11.5-15.5) % Plt Count (150-450) k/uL Nucleated RBCs (0-0) /100 WBC Potassium (3.5-5.5) mmol/L Anion Gap (10.00-18.00) mmol/L BUN/Creatinine Ratio (12.00-20.00) Ratio POC Glucose (mg/dL) 74 L 60 L (75-99) mg/dL Calcium (8.7-10.3) mg/dL Total Bilirubin (0.30-1.20) mg/dL AST (13-35) U/L Alkaline Phosphatase (41-126) U/L Total Protein (6.2-8.2) g/dL Albumin (3.8-4.9) g/dL Albumin/Globulin Ratio (1.60-3.17) g/dL Lipase 3723 H (23-300) U/L 08/01/21 08/01/21 08/02/21 Range/Units 22:18 23:51 02:16 RBC (3.80-5.40) m/uL Hgb (11.4-16.0) gm/dL Hct (34.0-46.0) % MCHC (31.0-37.0) g/dL RDW (11.5-15.5) % Plt Count (150-450) k/uL Nucleated RBCs (0-0) /100 WBC Potassium (3.5-5.5) mmol/L Anion Gap (10.00-18.00) mmol/L BUN/Creatinine Ratio (12.00-20.00) Ratio POC Glucose (mg/dL) 68 L 104 H 71 L (75-99) mg/dL Calcium (8.7-10.3) mg/dL Total Bilirubin (0.30-1.20) mg/dL AST (13-35) U/L Alkaline Phosphatase (41-126) U/L Total Protein (6.2-8.2) g/dL Albumin (3.8-4.9) g/dL Albumin/Globulin Ratio (1.60-3.17) g/dL Lipase (23-300) U/L 08/02/21 08/02/21 08/02/21 Range/Units 04:43 05:52 05:52 RBC 3.14 L (3.80-5.40) m/uL Hgb 8.2 L (11.4-16.0) gm/dL Hct 27.9 L (34.0-46.0) % MCHC 29.4 L (31.0-37.0) g/dL RDW 20.5 H (11.5-15.5) % Plt Count 110 L (150-450) k/uL Nucleated RBCs 1 H (0-0) /100 WBC Potassium 5.6 H (3.5-5.5) mmol/L Anion Gap 9.90 L (10.00-18.00) mmol/L BUN/Creatinine Ratio 23.33 H (12.00-20.00) Ratio POC Glucose (mg/dL) 66 L (75-99) mg/dL Calcium 8.5 L (8.7-10.3) mg/dL Total Bilirubin <0.20 L (0.30-1.20) mg/dL AST 50 H (13-35) U/L Alkaline Phosphatase 137 H (41-126) U/L Total Protein 5.5 L (6.2-8.2) g/dL Albumin 2.7 L (3.8-4.9) g/dL Albumin/Globulin Ratio 0.96 L (1.60-3.17) g/dL Lipase 994 H (23-300) U/L 08/02/21 08/02/21 08/02/21 Range/Units 07:54 08:18 08:44 RBC (3.80-5.40) m/uL Hgb (11.4-16.0) gm/dL Hct (34.0-46.0) % MCHC (31.0-37.0) g/dL RDW (11.5-15.5) % Plt Count (150-450) k/uL Nucleated RBCs (0-0) /100 WBC Potassium (3.5-5.5) mmol/L Anion Gap (10.00-18.00) mmol/L BUN/Creatinine Ratio (12.00-20.00) Ratio POC Glucose (mg/dL) 61 L 46 L 49 L (75-99) mg/dL Calcium (8.7-10.3) mg/dL Total Bilirubin (0.30-1.20) mg/dL AST (13-35) U/L Alkaline Phosphatase (41-126) U/L Total Protein (6.2-8.2) g/dL Albumin (3.8-4.9) g/dL Albumin/Globulin Ratio (1.60-3.17) g/dL Lipase (23-300) U/L 08/02/21 Range/Units 09:59 RBC (3.80-5.40) m/uL Hgb (11.4-16.0) gm/dL Hct (34.0-46.0) % MCHC (31.0-37.0) g/dL RDW (11.5-15.5) % Plt Count (150-450) k/uL Nucleated RBCs (0-0) /100 WBC Potassium (3.5-5.5) mmol/L Anion Gap (10.00-18.00) mmol/L BUN/Creatinine Ratio (12.00-20.00) Ratio POC Glucose (mg/dL) 101 H (75-99) mg/dL Calcium (8.7-10.3) mg/dL Total Bilirubin (0.30-1.20) mg/dL AST (13-35) U/L Alkaline Phosphatase (41-126) U/L Total Protein (6.2-8.2) g/dL Albumin (3.8-4.9) g/dL Albumin/Globulin Ratio (1.60-3.17) g/dL Lipase (23-300) U/L Microbiology - Last 24 Hours (Table) 07/29/21 11:23 Blood Culture - Preliminary Blood No Growth after 96 hours 07/28/21 07:02 Blood Culture - Preliminary Blood No Growth after 120 hours Diabetes panel 08/02/21 08/02/21 Range/Units 05:52 05:58 Sodium 138 (135-145) mmol/L Potassium 5.6 H (3.5-5.5) mmol/L Chloride 108 (96-109) mmol/L Carbon Dioxide 20.1 (20.0-27.5) mmol/L BUN 21.0 (9.0-27.0) mg/dL Creatinine 0.9 (0.6-1.5) mg/dL Glucose 79 (70-110) mg/dL Calcium 8.5 L (8.7-10.3) mg/dL AST 50 H (13-35) U/L ALT 28 (8-44) U/L Alkaline Phosphatase 137 H (41-126) U/L Total Protein 5.5 L (6.2-8.2) g/dL Albumin 2.7 L (3.8-4.9) g/dL Triglycerides 120.00 (0.00-149.00) mg/dL Calcium panel 08/02/21 Range/Units 05:52 Calcium 8.5 L (8.7-10.3) mg/dL Albumin 2.7 L (3.8-4.9) g/dL Pituitary panel 08/02/21 Range/Units 05:52 Sodium 138 (135-145) mmol/L Potassium 5.6 H (3.5-5.5) mmol/L Chloride 108 (96-109) mmol/L Carbon Dioxide 20.1 (20.0-27.5) mmol/L BUN 21.0 (9.0-27.0) mg/dL Creatinine 0.9 (0.6-1.5) mg/dL Glucose 79 (70-110) mg/dL Calcium 8.5 L (8.7-10.3) mg/dL Adrenal panel 08/02/21 Range/Units 05:52 Sodium 138 (135-145) mmol/L Potassium 5.6 H (3.5-5.5) mmol/L Chloride 108 (96-109) mmol/L Carbon Dioxide 20.1 (20.0-27.5) mmol/L BUN 21.0 (9.0-27.0) mg/dL Creatinine 0.9 (0.6-1.5) mg/dL Glucose 79 (70-110) mg/dL Calcium 8.5 L (8.7-10.3) mg/dL Total Bilirubin <0.20 L (0.30-1.20) mg/dL AST 50 H (13-35) U/L ALT 28 (8-44) U/L Alkaline Phosphatase 137 H (41-126) U/L Total Protein 5.5 L (6.2-8.2) g/dL Albumin 2.7 L (3.8-4.9) g/dL
[2021-08-02 14:35] LABS: Glucose,Whole Blood 77 mg/dL (75-99)
[2021-08-02 16:22] LABS: Glucose,Whole Blood 75 mg/dL (75-99)
[2021-08-02 16:24] LABS: Glucose,Whole Blood 75 mg/dL (75-99)
[2021-08-02] MEDS: DEXTROSE 5%-0.9% NACL 1,000 ML IV SCH (16:49)
[2021-08-02 18:08] LABS: Glucose,Whole Blood 71 mg/dL (75-99)
[2021-08-02 20:12] LABS: Glucose,Whole Blood 109 mg/dL (75-99)
[2021-08-02] MEDS: DIVALPROEX 500 MG TABLET.DR PO SCH (21:18)
[2021-08-02] MEDS: ARIPiprazole 10 MG TAB PO SCH (21:18)
--- NOTE | 2021-08-02 21:25 | P.PN ---
Subjective Progress Note Date: 08/01/21 Principal diagnosis: Bicytopenia, Mental Status Changes Objective - Vital Signs Vital signs: Vital Signs Temp 98.3 F 08/01/21 05:00 Pulse 84 08/01/21 05:00 Resp 16 08/01/21 05:00 BP 127/84 08/01/21 05:00 Pulse Ox 99 08/01/21 05:00 Intake & Output 07/31/21 08/01/21 08/01/21 18:59 06:59 18:59 Intake Total 600 Output Total 300 350 Balance -300 250 Intake: Intake, IV Titration 600 Amount Dextrose 5%-0.9% NaCl 1, 600 000 ml @ 50 mls/hr IV . Q20H [facility] Rx#:[id number] Output: Urine 300 350 Other: Voiding Method Indwelling Catheter Indwelling Catheter - Exam Alert Poor Historian COntrac HR Irr Lungs: Diminished Bilateral Extrw Weak no rashing mucus membranes dry - Labs CBC & Chem 7: 08/01/21 05:29 07/31/21 06:44 Labs: Abnormal Lab Results - Last 24 Hours (Table) 07/28/21 07/29/21 07/31/21 Range/Units 07:02 10:23 06:44 RBC (3.80-5.40) m/uL Hgb (11.4-16.0) gm/dL Hct (34.0-46.0) % RDW (11.5-15.5) % Plt Count (150-450) k/uL POC Glucose (mg/dL) (75-99) mg/dL Lipase 4288 H (23-300) U/L Vitamin B1 30 L (38-122) ug/L Free [facility] LC, Quant 5.05 H (0.33-1.94) mg/dL Free Lambda LC, Quant 2.84 H (0.57-2.63) mg/dL 07/31/21 07/31/21 08/01/21 Range/Units 15:58 19:56 05:29 RBC 2.94 L (3.80-5.40) m/uL Hgb 7.9 L (11.4-16.0) gm/dL Hct 25.4 L (34.0-46.0) % RDW 20.2 H (11.5-15.5) % Plt Count 78 L (150-450) k/uL POC Glucose (mg/dL) 101 H 120 H (75-99) mg/dL Lipase (23-300) U/L Vitamin B1 (38-122) ug/L Free [facility] LC, Quant (0.33-1.94) mg/dL Free Lambda LC, Quant (0.57-2.63) mg/dL 08/01/21 Range/Units 05:58 RBC (3.80-5.40) m/uL Hgb (11.4-16.0) gm/dL Hct (34.0-46.0) % RDW (11.5-15.5) % Plt Count (150-450) k/uL POC Glucose (mg/dL) 134 H (75-99) mg/dL Lipase (23-300) U/L Vitamin B1 (38-122) ug/L Free [facility] [place] LC, Quant (0.33-1.94) mg/dL Free Lambda LC, Quant (0.57-2.63) mg/dL Microbiology - Last 24 Hours (Table) 07/29/21 11:23 Blood Culture - Preliminary Blood No Growth after 48 hours 07/28/21 07:02 Blood Culture - Preliminary Blood No Growth after 72 hours Assessment and Plan (1) Normocytic anemia Current Visit: Yes Status: Acute Code(s): D64.9 - ANEMIA, UNSPECIFIED SNOMED Code(s): 135605178 (2) Thrombocytopenia Current Visit: Yes Status: Acute Code(s): D69.6 - THROMBOCYTOPENIA, UNSPECIFIED SNOMED Code(s): 073645838 (3) Hypomagnesemia Current Visit: Yes Status: Acute Code(s): E83.42 - HYPOMAGNESEMIA SNOMED Code(s): 914385476 (4) Hypokalemia Current Visit: Yes Status: Acute Code(s): E87.6 - HYPOKALEMIA SNOMED Code(s): 44263192 (5) AMS (altered mental status) Current Visit: Yes Status: Acute Code(s): R41.82 - ALTERED MENTAL STATUS, U NSPECIFIED SNOMED Code(s): 123009028 (6) Acute kidney injury Current Visit: Yes Status: Acute Code(s): N17.9 - ACUTE KIDNEY FAILURE, UNSPECIFIED SNOMED Code(s): 15231574 (7) Acute metabolic encephalopathy Current Visit: Yes Status: Acute Code(s): G93.41 - METABOLIC ENCEPHALOPATHY SNOMED Code(s): 70822668 Plan: Platelets and Hemoglobin decreased, baseline hemoglobin 10-11, platelets 80-100. Repeat bicytopenia work-up Will follow up with EUS and if performed will update Medical Record with those results.
--- NOTE | 2021-08-02 21:30 | P.PN ---
Subjective Progress Note Date: 08/02/21 Principal diagnosis: Bicytopenia, Mental Status Changes Feeling better, a little confused still. Objective - Vital Signs Vital signs: Vital Signs Temp 98.5 F 08/02/21 13:00 Pulse 92 08/02/21 13:00 Resp 16 08/02/21 13:00 BP 110/73 08/02/21 13:00 Pulse Ox 100 08/02/21 13:00 Intake & Output 08/02/21 08/02/21 08/03/21 06:59 18:59 06:59 Intake Total 600 Output Total 1200 550 Balance -600 -550 Intake: Oral 600 Output: Urine 1200 550 Uretheral (Short) 550 Other: Voiding Method Indwelling Catheter Indwelling Catheter # Voids 1 # Bowel Movements 1 - Exam Alert Poor Historian COntrac HR Irr Lungs: Diminished Bilateral Extrw Weak no rashing mucus membranes dry - Labs CBC & Chem 7: 08/02/21 05:52 08/02/21 05:52 Labs: Abnormal Lab Results - Last 24 Hours (Table) 08/01/21 08/01/21 08/01/21 Range/Units 22:00 22:18 23:51 RBC (3.80-5.40) m/uL Hgb (11.4-16.0) gm/dL Hct (34.0-46.0) % MCHC (31.0-37.0) g/dL RDW (11.5-15.5) % Plt Count (150-450) k/uL Nucleated RBCs (0-0) /100 WBC Potassium (3.5-5.5) mmol/L Anion Gap (10.00-18.00) mmol/L BUN/Creatinine Ratio (12.00-20.00) Ratio POC Glucose (mg/dL) 60 L 68 L 104 H (75-99) mg/dL Calcium (8.7-10.3) mg/dL Total Bilirubin (0.30-1.20) mg/dL AST (13-35) U/L Alkaline Phosphatase (41-126) U/L Total Protein (6.2-8.2) g/dL Albumin (3.8-4.9) g/dL Albumin/Globulin Ratio (1.60-3.17) g/dL Lipase (14-63) U/L 08/02/21 08/02/21 08/02/21 Range/Units 02:16 04:43 05:52 RBC (3.80-5.40) m/uL Hgb (11.4-16.0) gm/dL Hct (34.0-46.0) % MCHC (31.0-37.0) g/dL RDW (11.5-15.5) % Plt Count (150-450) k/uL Nucleated RBCs (0-0) /100 WBC Potassium 5.6 H (3.5-5.5) mmol/L Anion Gap 9.90 L (10.00-18.00) mmol/L BUN/Creatinine Ratio 23.33 H (12.00-20.00) Ratio POC Glucose (mg/dL) 71 L 66 L (75-99) mg/dL Calcium 8.5 L (8.7-10.3) mg/dL Total Bilirubin <0.20 L (0.30-1.20) mg/dL AST 50 H (13-35) U/L Alkaline Phosphatase 137 H (41-126) U/L Total Protein 5.5 L (6.2-8.2) g/dL Albumin 2.7 L (3.8-4.9) g/dL Albumin/Globulin Ratio 0.96 L (1.60-3.17) g/dL Lipase 994 H (14-63) U/L 08/02/21 08/02/21 08/02/21 Range/Units 05:52 07:54 08:18 RBC 3.14 L (3.80-5.40) m/uL Hgb 8.2 L (11.4-16.0) gm/dL Hct 27.9 L (34.0-46.0) % MCHC 29.4 L (31.0-37.0) g/dL RDW 20.5 H (11.5-15.5) % Plt Count 110 L (150-450) k/uL Nucleated RBCs 1 H (0-0) /100 WBC Potassium (3.5-5.5) mmol/L Anion Gap (10.00-18.00) mmol/L BUN/Creatinine Ratio (12.00-20.00) Ratio POC Glucose (mg/dL) 61 L 46 L (75-99) mg/dL Calcium (8.7-10.3) mg/dL Total Bilirubin (0.30-1.20) mg/dL AST (13-35) U/L Alkaline Phosphatase (41-126) U/L Total Protein (6.2-8.2) g/dL Albumin (3.8-4.9) g/dL Albumin/Globulin Ratio (1.60-3.17) g/dL Lipase (14-63) U/L 08/02/21 08/02/21 08/02/21 Range/Units 08:44 09:59 18:05 RBC (3.80-5.40) m/uL Hgb (11.4-16.0) gm/dL Hct (34.0-46.0) % MCHC (31.0-37.0) g/dL RDW (11.5-15.5) % Plt Count (150-450) k/uL Nucleated RBCs (0-0) /100 WBC Potassium (3.5-5.5) mmol/L Anion Gap (10.00-18.00) mmol/L BUN/Creatinine Ratio (12.00-20.00) Ratio POC Glucose (mg/dL) 49 L 101 H 71 L (75-99) mg/dL Calcium (8.7-10.3) mg/dL Total Bilirubin (0.30-1.20) mg/dL AST (13-35) U/L Alkaline Phosphatase (41-126) U/L Total Protein (6.2-8.2) g/dL Albumin (3.8-4.9) g/dL Albumin/Globulin Ratio (1.60-3.17) g/dL Lipase (14-63) U/L 08/02/21 Range/Units 20:10 RBC (3.80-5.40) m/uL Hgb (11.4-16.0) gm/dL Hct (34.0-46.0) % MCHC (31.0-37.0) g/dL RDW (11.5-15.5) % Plt Count (150-450) k/uL Nucleated RBCs (0-0) /100 WBC Potassium (3.5-5.5) mmol/L Anion Gap (10.00-18.00) mmol/L BUN/Creatinine Ratio (12.00-20.00) Ratio POC Glucose (mg/dL) 109 H (75-99) mg/dL Calcium (8.7-10.3) mg/dL Total Bilirubin (0.30-1.20) mg/dL AST (13-35) U/L Alkaline Phosphatase (41-126) U/L Total Protein (6.2-8.2) g/dL Albumin (3.8-4.9) g/dL Albumin/Globulin Ratio (1.60-3.17) g/dL Lipase (14-63) U/L Microbiology - Last 24 Hours (Table) 07/29/21 11:23 Blood Culture - Preliminary Blood No Growth after 96 hours 07/28/21 07:02 Blood Culture - Preliminary Blood No Growth after 120 hours Assessment and Plan (1) Normocytic anemia Current Visit: Yes Status: Acute Code(s): D64.9 - ANEMIA, UNSPECIFIED SNOMED Code(s): 862732729 (2) Thrombocytopenia Current Visit: Yes Status: Acute Code(s): D69.6 - THROMBOCYTOPENIA, UNSPECIFIED SNOMED Code(s): 307760854 (3) Hypomagnesemia Current Visit: Yes Status: Acute Code(s): E83.42 - HYPOMAGNESEMIA SNOMED Code(s): 434911386 (4) Hypokalemia Current Visit: Yes Status: Acute Code(s): E87.6 - HYPOKALEMIA SNOMED Code(s): 17293030 (5) AMS (altered mental status) Current Visit: Yes Status: Acute Code(s): R41.82 - ALTERED MENTAL STATUS, UNSPECIFIED SNOMED Code(s): 709406337 (6) Acute kidney injury Current Visit: Yes Status: Acute Code(s): N17.9 - ACUTE KIDNEY FAILURE, UNSPECIFIED SNOMED Code(s): 60529477 (7) Acute metabolic encephalopathy Current Visit: Yes Status: Acute Code(s): G93.41 - METABOLIC ENCEPHALOPATHY SNOMED Code(s): 56684631 Plan: Platelets and Hemoglobin decreased, baseline hemoglobin 10-11, platelets 80-100. Stable today no transfusion needed Continue to monitor and will follow-up in office for additional monitoring and support Physician Attest: I have completed the full history and physical and agree with above dictation, dictated as a scribe
[2021-08-02 22:20] LABS: Glucose,Whole Blood 106 mg/dL (75-99)
[2021-08-03 00:58] LABS: Glucose,Whole Blood 96 mg/dL (75-99)
[2021-08-03 02:40] LABS: Glucose,Whole Blood 86 mg/dL (75-99)
[2021-08-03 04:38] LABS: Glucose,Whole Blood 91 mg/dL (75-99)
[2021-08-03] MEDS: LEVOTHYROXINE 50 MCG TAB PO SCH (06:08)
--- NOTE | 2021-08-03 06:14 | PN ---
PROGRESS NOTE 61-year-old black female was going to send home today if cleared by surgery for pancreatitis but having low blood sugars. No endocrinologists available. We have to Hep-Lock her IV, give her protein every 4 hours, lay off sugar and see if we can get her Accu-Cheks up and improved. Cardiovascular: S1-S2. Lungs clear. GI soft. Psych: Fair mood and affect. ASSESSMENT: 1. Hyperglycemia. 2. Seizures. 3. Mood disorders. 4. Hypertension. 5. Hypoglycemia. 6. Acute on chronic pancreatitis. PROGNOSIS: Guarded. Monitor for low blood sugars over 24 hours and then possible discharge if cleared from sugar standpoint. Eat protein every 4 hours. MMODL / IJN: [id number] /
[2021-08-03 06:21] LABS: Glucose,Whole Blood 78 mg/dL (75-99)
[2021-08-03 08:11] LABS: Glucose,Whole Blood 77 mg/dL (75-99)
[2021-08-03] MEDS: SERTRALINE 100 MG TAB PO SCH (08:42)
[2021-08-03] MEDS: PANTOPRAZOLE 40 MG TABLET PO SCH (08:42)
[2021-08-03] MEDS: METOPROLOL TARTRATE 50 MG TAB PO SCH (08:42)
[2021-08-03] MEDS: ASPIRIN 81 MG PO SCH (08:42)
[2021-08-03] MEDS: HEPARIN SODIUM,PORCINE/PF 5,000 UNIT/0.5 ML SYRINGE SQ SCH (08:42)
[2021-08-03] MEDS: DIVALPROEX 250 MG TABLET.DR PO SCH (08:43)
[2021-08-03] MEDS: PYRIDOXINE 50 MG TAB PO SCH (08:43)
[2021-08-03 10:11] LABS: Glucose,Whole Blood 93 mg/dL (75-99)
--- NOTE | 2021-08-03 10:47 | P.PN ---
Subjective Progress Note Date: 08/03/21 Principal diagnosis: Pancreatitis Patient doing well today. Denies pain. Tolerating diet. Says she would like to go home. Labs from today pending. Objective - Vital Signs Vital signs: Vital Signs Temp 98.7 F 08/03/21 04:26 Pulse 68 08/03/21 04:26 Resp 16 08/03/21 04:26 BP 117/82 08/03/21 04:26 Pulse Ox 95 08/03/21 04:26 Intake & Output 08/02/21 08/03/21 08/03/21 18:59 06:59 18:59 Intake Total 237 Output Total 550 1200 Balance -313 -1200 Intake: Oral 237 Output: Urine 550 1200 Uretheral (Short) 550 Other: Voiding Method Indwelling Catheter Indwelling Catheter # Voids 1 # Bowel Movements 4 - Exam Abdomen: Soft, nontender, nondistended - Labs CBC & Chem 7: 08/02/21 05:52 08/02/21 05:52 Labs: Abnormal Lab Results - Last 24 Hours (Table) 08/02/21 08/02/21 08/02/21 Range/Units 18:05 20:10 22:19 POC Glucose (mg/dL) 71 L 109 H 106 H (75-99) mg/dL Microbiology - Last 24 Hours (Table) 07/28/21 07:02 Blood Culture - Final Blood No Growth after 144 hours 07/29/21 11:23 Blood Culture - Preliminary Blood No Growth after 96 hours Assessment and Plan (1) Pancreatitis Narrative/Plan: Patient doing well at this time. Continue diet as tolerated. Await repeat labs. Possible discharge per primary service. Current Visit: Yes Status: Acute Code(s): K85.90 - ACUTE PANCREATITIS WITHOUT NECROSIS OR INFECTION, UNSP SNOMED Code(s): 11638010
[2021-08-03 12:26] LABS: Glucose,Whole Blood 97 mg/dL (75-99)
--- NOTE | 2021-08-03 13:05 | DS ---
DISCHARGE SUMMARY This is a 61-year-old -[place] female who was admitted with acute pancreatitis, acute abdominal pain, altered mental status. The patient was kept overnight for hyp glycemia, but she was drinking a lot of sugar which triggered hyp glycemia . Now sugars are good over the last 24 hours when she got rid of all her sugar in her diet. She is improved mentally and she is doing well with pancreatitis as well as mental status. She is back to her baseline. Home medications include Depakote 500 at night, 250 in the morning, Synthroid 50 mcg daily, vitamin B6 50 mg daily, aspirin 81 mg daily, Zoloft 100 mg daily, metoprolol tartrate 100 mg b.i.d., Prozac 20 mg daily, Lipitor 20 mg daily, Abilify 10 mg daily. CONDITION: Stable. PROGNOSIS: Guarded. Follow up as an outpatient. She will follow up in the next 24 to 48 hours. DISCHARGE DIAGNOSIS: 1. Acute kidney injury. 2. Acute metabolic encephalopathy. 3. Altered mental system, confusion. All improved. Follow up as an outpatient. MMODL / IJN: [id number] /
[2021-08-03 15:12] VITALS: BP 119/87; PULSE 92; RESP 18; TEMP 98.3
== END 2021-08-03 16:15 | disposition home or self-care (01) | DRG 682 ==
LOC: EC 17:37 → OBSVTOIN 20:28 → 5NMEDONC 20:28
PROVIDERS: ADMIT Family Medicine; ATTEND Family Medicine
DX: N17.9 Acute kidney failure, unspecified (principal); G93.41 Metabolic encephalopathy; K85.90 Acute pancreatitis without necrosis or infection, unspecified; E87.2 Acidosis; F20.0 Paranoid schizophrenia; I69.354 Hemiplegia and hemiparesis following cerebral infarction affecting left non-dominant side; K86.1 Other chronic pancreatitis; R78.81 Bacteremia; E86.0 Dehydration; K21.9 Gastro-esophageal reflux disease without esophagitis; N18.9 Chronic kidney disease, unspecified; Z20.822 Contact with and (suspected) exposure to COVID-19; I12.9 Hypertensive chronic kidney disease with stage 1 through stage 4 chronic kidney disease, or unspecified chronic kidney disease; M10.9 Gout, unspecified; R13.10 Dysphagia, unspecified; G35 Multiple sclerosis; E78.5 Hyperlipidemia, unspecified; E83.42 Hypomagnesemia; E86.1 Hypovolemia; E87.6 Hypokalemia; F03.90 Unspecified dementia, unspecified severity, without behavioral disturbance, psychotic disturbance, mood disturbance, and anxiety; F32.A Depression, unspecified; G40.909 Epilepsy, unspecified, not intractable, without status epilepticus; E53.1 Pyridoxine deficiency; D69.6 Thrombocytopenia, unspecified; E03.9 Hypothyroidism, unspecified; E16.2 Hypoglycemia, unspecified; T42.6X5A Adverse effect of other antiepileptic and sedative-hypnotic drugs, initial encounter; B95.7 Other staphylococcus as the cause of diseases classified elsewhere; D64.9 Anemia, unspecified; Z98.890 Other specified postprocedural states; Z87.440 Personal history of urinary (tract) infections; Z74.01 Bed confinement status; Z79.82 Long term (current) use of aspirin; Z79.899 Other long term (current) drug therapy; Z86.79 Personal history of other diseases of the circulatory system; Z87.11 Personal history of peptic ulcer disease; Z80.0 Family history of malignant neoplasm of digestive organs; Z82.3 Family history of stroke; Z82.49 Family history of ischemic heart disease and other diseases of the circulatory system; Z80.1 Family history of malignant neoplasm of trachea, bronchus and lung; Z80.8 Family history of malignant neoplasm of other organs or systems
CPT/HCPCS: 36415; 70450; 71046; 71250; 74150; 76705; 76770; 80048; 80053; 80164; 80306; 81003; 82140; 82150; 82607; 82728; 82784; 82787; 83010; 83036; 83525; 83540; 83550; 83605; 83615; 83690; 83735; 83883; 83921; 84145; 84165; 84425; 84443; 84478; 84484; 84681; 85025; 85027; 85045; 85379; 85384; 85610; 85730; 86038; 86140; 86301; 86334; 87040; 87635; 93005; 93306; 96374; 99285

== ENCOUNTER → 2021-08-26 | Outpatient (CLI) | payer OTHER ==
[2021-08-26 17:25] LABS: Anisocytosis Moderate; HCT 34.4 % (34.0-46.0); HGB 10.7 gm/dL (11.4-16.0); Hypochromasia Marked; MCH 26.3 pg (25.0-35.0); MCHC 31.1 g/dL (31.0-37.0); MCV 84.4 fL (80.0-100.0); Microcytosis Slight; Platelet Count 149 k/uL (150-450); Poikilocytosis Slight; RBC 4.07 m/uL (3.80-5.40); RDW 20.1 % (11.5-15.5); WBC 6.9 k/uL (3.8-10.6)
[2021-08-26 17:35] LABS: Band Neutrophils % 1 %; Lymphocytes # (M) 3.11 k/uL (1.0-4.8); Monocytes # (M) 0.55 k/uL (0-1.0); Neutrophils % (M) 46 %; Nucleated Red Blood Cells 0 /100 WBC (0-0); RBC Fragments Present; Target Cells Present; Total Cells Counted 100
[2021-08-27 00:34] LABS: African American GFR (CKD) 52.5 (60.0-200.0); Albumin 3.4 g/dL (3.8-4.9); Albumin/Globulin Ratio 0.75 (1.60-3.17); Anion Gap 16.6 mmol/L (10.00-18.00); BUN/Creat Ratio 13.49 Ratio (12.00-20.00); Calcium 9.5 mg/dL (8.7-10.3); Carbon Dioxide 13.1 mmol/L (20.0-27.5); Globulin 4.5 g/dL (1.6-3.3); Non-African American GFR(CKD) 45.3 (60.0-200.0); Potassium 6.4 mmol/L (3.5-5.5); Total Bilirubin 0.3 mg/dL (0.30-1.20); Total Protein 7.9 g/dL (6.2-8.2)
== END | disposition home or self-care (01) ==
LOC: LABWHC1 15:06
PROVIDERS: ATTEND Family Medicine
DX: I10 Essential (primary) hypertension (principal); Z79.899 Other long term (current) drug therapy; B89 Unspecified parasitic disease
CPT/HCPCS: 36415; 80053; 83540; 84443; 85025

== ENCOUNTER → 2021-11-21 | Outpatient (CLI) | payer OTHER ==
--- NOTE | 2021-11-21 22:05 | XR ---
EXAMINATION TYPE: XR shoulder limited LT, XR forearm LT, XR humerus LT, XR elbow complete LT DATE OF EXAM: 11/21/2021 CLINICAL HISTORY: Upper extremity pain with limited range of motion. TECHNIQUE: Two views of the left humerus, shoulder, and forearm are obtained. 3 views left elbow. COMPARISON: None. FINDINGS: Short suboptimal due to contracted appearance. Osseous structures are demineralized. Mild narrowing at the acromioclavicular joint. Moderate narrowing at the glenohumeral joint. There is no a cute fracture or dislocation seen in the left humerus. Distal acromion morphology unremarkable. Visua lized ribs are intact. Images of the left humerus show no acute displaced fracture. Overlying clothing material it is presen t. No suspicious focal osseous lesion. Images of left elbow show no acute displaced fracture. No abnormal fat pad signs. Suboptimal due to i ncomplete extension. Overlying soft tissue is unremarkable. Images of the left forearm show no acute fracture or dislocation in the radius or ulna. 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 [place] ing soft tissue is unremarkable. IMPRESSION: As above.
--- NOTE | 2021-11-22 06:22 | XR ---
EXAMINATION TYPE: XR thoracic spine 2V DATE OF EXAM: 11/21/2021 CLINICAL HISTORY: Mid back pain TECHNIQUE: Frontal, lateral, and swimmer's view of thoracic spine are obtained. COMPARISON: None. FINDINGS: Thoracic spine show dextroconvex scoliosis centered mid thoracic spine. Vertebral body hei ghts and disc space heights are preserved. Visualized ribs are and intact bilaterally. Incidental mod erate spurring and disc space narrowing at C5-C6 level. IMPRESSION: As above.
--- NOTE | 2021-11-22 06:26 | XR ---
EXAMINATION TYPE: XR lumbosacral spine min 4V DATE OF EXAM: 11/21/2021 CLINICAL HISTORY: Back pain TECHNIQUE: Frontal, lateral, and oblique images of the lumbar spine are obtained. COMPARISON: CT lumbar spine July 05, 2021 FINDINGS: There are 5 lumbar type vertebral bodies redemonstrated. Mild to moderate height loss invo lving the L2 vertebra with prominent Schmorl node along the superior endplate is redemonstrated. Alig nment is stable and satisfactory. Disc space heights are preserved. Large anterior bridging osteophyt e at L1-L2 level is redemonstrated. Additional smaller spur anterior superior L3 level redemonstrated . Oblique images appear within normal limits. Moderate overlying arterial vascular calcification and some scattered pelvic phleboliths are partially imaged. IMPRESSION: As above.
--- NOTE | 2021-11-22 06:28 | XR ---
EXAMINATION TYPE: XR Hip Bilateral and AP pelvis DATE OF EXAM: 11/21/2021 COMPARISON: CT abdomen and pelvis April 08, 2021 HISTORY: Pelvic and bilateral hip pain TECHNIQUE: A single AP view of the pelvis is obtained. Two views of the bilateral hips are obtained. FINDINGS: There is no acute fracture/dislocation evident in the pelvis. The sacroiliac joints appea r symmetric and within normal limits. Pubic symphysis is intact. Multiple overlying pelvic phlebolit hs are seen. There is moderate to severe axial joint space loss in both hips redemonstrated fairly sy mmetric in appearance. Femoral head shapes are maintained bilaterally. Two views of bilateral hip show no acute fracture or dislocation. No focal lytic or sclerotic lesion seen in the proximal femurs bilaterally. There is vascular calcification in the bilateral pelvis ext ending into the bilateral groin regions. IMPRESSION: As above. No significant change from prior CT.
== END | disposition home or self-care (01) ==
LOC: RADXRMAIN 16:55
PROVIDERS: ATTEND Psychiatry & Neurology Neurology
DX: M25.812 Other specified joint disorders, left shoulder (principal); M41.84 Other forms of scoliosis, thoracic region; M25.78 Osteophyte, vertebrae; M50.322 Other cervical disc degeneration at C5-C6 level; M25.552 Pain in left hip; M25.551 Pain in right hip
CPT/HCPCS: 72070; 72110; 73521

== ENCOUNTER → 2021-11-21 | Outpatient (CLI) | payer OTHER ==
[2021-11-21 22:51] LABS: Valproic Acid (Depakene) 50.3 ug/mL (50.0-100.0)
[2021-11-21 23:07] LABS: Basophils # (A) 0.01 X 10*3/uL (0.00-0.10); Basophils % (A) 0.2 %; Eosinophils # (A) 0.11 X 10*3/uL (0.04-0.35); Eosinophils % (A) 1.8 %; HCT 36.6 % (37.2-46.3); HGB 11.2 g/dL (12.0-15.0); Immature Grans, Automated 0.3 %; Lymphocytes % (A) 55.9 %; MCH 24.4 pg (27.0-32.0); MCHC 30.6 g/dL (32.0-37.0); MCV 79.7 fL (80.0-97.0); Monocytes # (A) 0.62 X 10*3/uL (0.20-1.00); Monocytes % (A) 9.9 %; NRBC Per 100 WBC 0 /100 WBCS (0.0-0.0); Neutrophils % (A) 31.9 %; Platelet Count 158 X 10*3/uL (140-440); RBC 4.59 X 10*6/uL (4.10-5.20); WBC 6.26 X 10*3/uL (4.50-10.00)
== END | disposition home or self-care (01) ==
LOC: LABWHC1 15:47
PROVIDERS: ATTEND Psychiatry & Neurology Neurology
DX: G40.209 Localization-related (focal) (partial) symptomatic epilepsy and epileptic syndromes with complex partial seizures, not intractable, without status epilepticus (principal)
CPT/HCPCS: 36415; 80164; 84450; 84460; 85025

== ENCOUNTER 2022-02-20 12:16 | Inpatient (IN) | payer OTHER ==
[2022-02-20] MEDS ORDERED: SODIUM CHLORIDE 0.9% 1,000 ML IV ONE (12:18)
[2022-02-20] MEDS ORDERED: SODIUM CHLORIDE 0.9% 1,000 ML IV STA (12:18)
--- NOTE | 2022-02-20 12:24 | ED ---
Altered Mental Status HPI - General Stated Complaint: altered Time Seen by Provider: 02/20/22 12:16 Source: patient, EMS, RN notes reviewed Mode of arrival: EMS - History of Present Illness Initial Comments: 61-year-old female history of CVA with left-sided contractures history of UTI history of acute kidney injury in the past history pneumonia and seizure disorder who was brought in by EMS today because of decreased all of consciousness per family. She is on video monitoring and no seizures were no jae. No overt fevers chills sweats per paramedics she does appear to be dehydrated. Patient complains of chronic leg pain she is somewhat lethargic but is able answer questions. MD Complaint: altered mental status, decreased responsiveness - Related Data Home Medications Medication Instructions Recorded Confirmed Aspirin EC [Ecotrin Low Dose] 81 mg PO DAILY 04/12/16 02/20/22 Metoprolol Tartrate 100 mg PO BID 01/04/17 02/20/22 Sertraline [Zoloft] 100 mg PO DAILY 01/04/17 02/20/22 Omeprazole [PriLOSEC] 20 mg PO DAILY 02/09/20 02/20/22 ARIPiprazole [Abilify] 10 mg PO HS 04/08/21 02/20/22 Baclofen 10 mg PO TID PRN 02/20/22 02/20/22 Divalproex [Depakote] 500 mg PO BID 02/20/22 02/20/22 Levothyroxine Sodium [Synthroid] 75 mg PO DAILY 02/20/22 02/20/22 Sertraline [Zoloft] 25 mg PO DAILY 02/20/22 02/20/22 Previous Rx's Medication Instructions Recorded Atorvastatin [Lipitor] 20 mg PO HS #30 tab 02/13/20 Divalproex [Depakote] 250 mg PO DAILY 90 Days #90 tablet 08/02/21 Allergies Allergy/AdvReac Type Severity Reaction Status Date / Time No Known Allergies Allergy Verified 02/20/22 13:00 Review of Systems ROS Statement: Those systems with pertinent positive or pertinent negative responses have been documented in the HPI. ROS Other: All systems not noted in ROS Statement are negative. 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 gout, PANCREATITIS, pseudoseizures. 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 Past Anesthesia/Blood Transfusion Reactions: No Reported Reaction Additional Past Anesthesia/Blood Transfusion Reaction / Comment(s): PT HAS HAD BLOOD TRANSFUSIONS FOR ANEMIA-NO REACTION. Past Psychological History: Depression, Schizophrenia Additional Psychological History / Comment(s): paranoid schizophrenia Smoking Status: Unknown if ever smoked Past Alcohol Use History: None Reported Additional Past Alcohol Use History / Comment(s): STARTED SMOKING AT AGE 14, SMOKED 1PPD, QUIT >20 YEARS AGO BUT SMOKED AGAIN BRIEFLY WHEN AT [place] BUT QUIT 1.5 YERAS AGO Past Drug Use History: Cocaine Additional Drug Use History / Comment(s): No current use. Last used 15 yrs ago. - Past Family History Sister(s) Family Medical History: Myocardial Infarction ([place]) Father Family Medical History: Cancer Additional Family Medical History / Comment(s): throat, lung, and rectal cancer Mother Family Medical History: Myocardial Infarction ([place]) Additional Family Medical History / Comment(s): stroke General Exam - General Exam Comments Initial Comments: This is a well-developed frail-appearing female who is awake alert though lethargic. She is demonstrating contractures. General appearance: alert, lethargic Head exam: Present: atraumatic, normocephalic, normal inspection Eye exam: Present: normal appearance, PERRL, EOMI. Absent: scleral icterus, conjunctival injection, periorbital swelling ENT exam: Present: mucous membranes dry Neck exam: Present: normal inspection, full ROM, other (No stridor JVD or bruits). Absent: tenderness, meningismus, lymphadenopathy Respiratory exam: Present: decreased breath sounds. Absent: respiratory distress, wheezes, rales, rhonchi, stridor Cardiovascular Exam: Present: regular rate, normal rhythm, normal heart sounds. Absent: systolic murmur, diastolic murmur, rubs, gallop, clicks GI/Abdominal exam: Present: soft, normal bowel sounds. Absent: distended, tenderness, guarding, rebound, rigid Rectal exam: Present: deferred Extremities exam: Present: normal capillary refill, other (Patient does demonstrate contractures on the left and favors positioning). Absent: tenderness, pedal edema, joint swelling, calf tenderness Back exam: Present: normal inspection. Absent: tenderness Neurological exam: Present: alert, oriented X3, CN II-XII intact, motor sensory deficit (Residual) Psychiatric exam: Present: normal mood, flat affect Skin exam: Present: warm, dry, intact, normal color. Absent: rash Course Vital Signs 02/20/22 02/20/22 02/20/22 12:20 13:00 14:00 Temperature 97.7 F Pulse Rate 65 64 61 Respiratory 18 14 14 Rate Blood Pressure 150/82 145/94 178/95 O2 Sat by Pulse 99 98 99 Oximetry 02/20/22 02/20/22 02/20/22 15:00 16:00 16:50 Temperature 98.7 F Pulse Rate 64 74 75 Respiratory 14 14 14 Rate Blood Pressure 128/72 181/96 164/100 O2 Sat by Pulse 98 97 97 Oximetry Medical Decision Making - Medical Decision Making I did discuss findings with patient's family and patient patient more responsive unclear whether she had TA versus dehydration with altered mental status. She apparently was her normal parameters yesterday. I did discuss case with Dr. Harley patient be admitted for IV hydration and neurological consultation. - Lab Data Result diagrams: 02/20/22 13:06 02/20/22 13:06 Lab Results 02/20/22 02/20/22 02/20/22 Range/Units 13:06 13:06 13:06 WBC 6.8 (3.8-10.6) k/uL RBC 5.34 (3.80-5.40) m/uL Hgb 13.1 (11.4-16.0) gm/dL Hct 43.7 (34.0-46.0) % MCV 81.8 (80.0-100.0) fL MCH 24.5 L (25.0-35.0) pg MCHC 29.9 L (31.0-37.0) g/dL RDW 17.3 H (11.5-15.5) % Plt Count 133 L (150-450) k/uL MPV 9.5 Neutrophils % 40 % Lymphocytes % 50 % Monocytes % 6 % Eosinophils % 2 % Basophils % 0 % Neutrophils # 2.7 (1.3-7.7) k/uL Lymphocytes # 3.4 (1.0-4.8) k/uL Monocytes # 0.4 (0-1.0) k/uL Eosinophils # 0.1 (0-0.7) k/uL Basophils # 0.0 (0-0.2) k/uL Hypochromasia Marked Anisocytosis Slight Microcytosis Slight PT 11.8 (9.0-12.0) sec INR 1.1 (<1.2) APTT 22.0 (22.0-30.0) sec Sodium (137-145) mmol/L Potassium (3.5-5.1) mmol/L Chloride (98-107) mmol/L Carbon Dioxide (22-30) mmol/L Anion Gap mmol/L BUN (7-17) mg/dL Creatinine (0.52-1.04) mg/dL Est GFR (CKD-EPI)AfAm (>60 ml/min/1.73 sqM) Est GFR (CKD-EPI)NonAf (>60 ml/min/1.73 sqM) Glucose (74-99) mg/dL Plasma Lactic Acid Shen (0.7-2.0) mmol/L Calcium (8.4-10.2) mg/dL Magnesium (1.6-2.3) mg/dL Total Bilirubin (0.2-1.3) mg/dL AST (14-36) U/L ALT (4-34) U/L Alkaline Phosphatase (38-126) U/L Ammonia (<30) umol/L Creatine Kinase (30-135) U/L Troponin I (0.000-0.034) ng/mL Total Protein (6.3-8.2) g/dL Albumin (3.5-5.0) g/dL Urine Color Urine Appearance (Clear) Urine pH (5.0-8.0) Ur Specific [place] (1.001-1.035) Urine Protein (Negative) Urine Glucose (UA) (Negative) Urine Ketones (Negative) Urine Blood (Negative) Urine Nitrite (Negative) Urine Bilirubin (Negative) Urine Urobilinogen (<2.0) mg/dL Ur Leukocyte Esterase (Negative) Urine Opiates Screen Not Detected (NotDetected) Ur Oxycodone Screen Not Detected (NotDetected) Urine Methadone Screen Not Detected (NotDetected) Ur Propoxyphene Screen Not Detected (NotDetected) Ur Barbiturates Screen Not Detected (NotDetected) U Tricyclic Antidepress Not Detected (NotDetected) Ur Phencyclidine Scrn Not Detected (NotDetected) Ur Amphetamines Screen Not Detected (NotDetected) U Methamphetamines Scrn Not Detected (NotDetected) U Benzodiazepines Scrn Not Detected (NotDetected) Urine Cocaine Screen Not Detected (NotDetected) U Marijuana (THC) Screen Not Detected (NotDetected) Coronavirus (PCR) (Not Detectd) Influenza Type A RNA (Not Detectd) Influenza Type B (PCR) (Not Detectd) 02/20/22 02/20/22 02/20/22 Range/Units 13:06 13:06 13:06 WBC (3.8-10.6) k/uL RBC (3.80-5.40) m/uL Hgb (11.4-16.0) gm/dL Hct (34.0-46.0) % MCV (80.0-100.0) fL MCH (25.0-35.0) pg MCHC (31.0-37.0) g/dL RDW (11.5-15.5) % Plt Count (150-450) k/uL MPV Neutrophils % % Lymphocytes % % Monocytes % % Eosinophils % % Basophils % % Neutrophils # (1.3-7.7) k/uL Lymphocytes # (1.0-4.8) k/uL Monocytes # (0-1.0) k/uL Eosinophils # (0-0.7) k/uL Basophils # (0-0.2) k/uL Hypochromasia Anisocytosis Microcytosis PT (9.0-12.0) sec INR (<1.2) APTT (22.0-30.0) sec Sodium 141 (137-145) mmol/L Potassium 5.0 (3.5-5.1) mmol/L Chloride 113 H (98-107) mmol/L Carbon Dioxide 17 L (22-30) mmol/L Anion Gap 11 mmol/L BUN 33 H (7-17) mg/dL Creatinine 1.32 H (0.52-1.04) mg/dL Est GFR (CKD-EPI)AfAm 50 (>60 ml/min/1.73 sqM) Est GFR (CKD-EPI)NonAf 43 (>60 ml/min/1.73 sqM) Glucose 83 (74-99) mg/dL Plasma Lactic Acid Shen (0.7-2.0) mmol/L Calcium 10.0 (8.4-10.2) mg/dL Magnesium 1.7 (1.6-2.3) mg/dL Total Bilirubin 0.4 (0.2-1.3) mg/dL AST 39 H (14-36) U/L ALT 20 (4-34) U/L Alkaline Phosphatase 101 (38-126) U/L Ammonia (<30) umol/L Creatine Kinase 50 (30-135) U/L Troponin I <0.012 (0.000-0.034) ng/mL Total Protein 8.4 H (6.3-8.2) g/dL Albumin 4.5 (3.5-5.0) g/dL Urine Color Yellow Urine Appearance Clear (Clear) Urine pH 5.5 (5.0-8.0) Ur Specific [place] 1.016 (1.001-1.035) Urine Protein Negative (Negative) Urine Glucose (UA) Negative (Negative) Urine Ketones Negative (Negative) Urine Blood Negative (Negative) Urine Nitrite Negative (Negative) Urine Bilirubin Negative (Negative) Urine Urobilinogen <2.0 (<2.0) mg/dL Ur Leukocyte Esterase Negative (Negative) Urine Opiates Screen (NotDetected) Ur Oxycodone Screen (NotDetected) Urine Methadone Screen (NotDetected) Ur Propoxyphene Screen (NotDetected) Ur Barbiturates Screen (NotDetected) U Tricyclic Antidepress (NotDetected) Ur Phencyclidine Scrn (NotDetected) Ur Amphetamines Screen (NotDetected) U Methamphetamines Scrn (NotDetected) U Benzodiazepines Scrn (NotDetected) Urine Cocaine Screen (NotDetected) U Marijuana (THC) Screen (NotDetected) Coronavirus (PCR) (Not Detectd) Influenza Type A RNA (Not Detectd) Influenza Type B (PCR) (Not Detectd) 02/20/22 02/20/22 02/20/22 Range/Units 13:06 13:06 13:06 WBC (3.8-10.6) k/uL RBC (3.80-5.40) m/uL Hgb (11.4-16.0) gm/dL Hct (34.0-46.0) % MCV (80.0-100.0) fL MCH (25.0-35.0) pg MCHC (31.0-37.0) g/dL RDW (11.5-15.5) % Plt Count (150-450) k/uL MPV Neutrophils % % Lymphocytes % % Monocytes % % Eosinophils % % Basophils % % Neutrophils # (1.3-7.7) k/uL Lymphocytes # (1.0-4.8) k/uL Monocytes # (0-1.0) k/uL Eosinophils # (0-0.7) k/uL Basophils # (0-0.2) k/uL Hypochromasia Anisocytosis Microcytosis PT (9.0-12.0) sec INR (<1.2) APTT (22.0-30.0) sec Sodium (137-145) mmol/L Potassium (3.5-5.1) mmol/L Chloride (98-107) mmol/L Carbon Dioxide (22-30) mmol/L Anion Gap mmol/L BUN (7-17) mg/dL Creatinine (0.52-1.04) mg/dL Est GFR (CKD-EPI)AfAm (>60 ml/min/1.73 sqM) Est GFR (CKD-EPI)NonAf (>60 ml/min/1.73 sqM) Glucose (74-99) mg/dL Plasma Lactic Acid Shen 1.3 (0.7-2.0) mmol/L Calcium (8.4-10.2) mg/dL Magnesium (1.6-2.3) mg/dL Total Bilirubin (0.2-1.3) mg/dL AST (14-36) U/L ALT (4-34) U/L Alkaline Phosphatase (38-126) U/L Ammonia 9 (<30) umol/L Creatine Kinase (30-135) U/L Troponin I (0.000-0.034) ng/mL Total Protein (6.3-8.2) g/dL Albumin (3.5-5.0) g/dL Urine Color Urine Appearance (Clear) Urine pH (5.0-8.0) Ur Specific [place] (1.001-1.035) Urine Protein (Negative) Urine Glucose (UA) (Negative) Urine Ketones (Negative) Urine Blood (Negative) Urine Nitrite (Negative) Urine Bilirubin (Negative) Urine Urobilinogen (<2.0) mg/dL Ur Leukocyte Esterase (Negative) Urine Opiates Screen (NotDetected) Ur Oxycodone Screen (NotDetected) Urine Methadone Screen (NotDetected) Ur Propoxyphene Screen (NotDetected) Ur Barbiturates Screen (NotDetected) U Tricyclic Antidepress (NotDetected) Ur Phencyclidine Scrn (NotDetected) Ur Amphetamines Screen (NotDetected) U Methamphetamines Scrn (NotDetected) U Benzodiazepines Scrn (NotDetected) Urine Cocaine Screen (NotDetected) U Marijuana (THC) Screen (NotDetected) Coronavirus (PCR) Not Detected (Not Detectd) Influenza Type A RNA Not Detected (Not Detectd) Influenza Type B (PCR) Not Detected (Not Detectd) - EKG Data -: EKG Interpreted by [place] EKG shows normal: sinus rhythm EKG Comments: Supraventricular rhythm of 71 QRS 73 QT since QTC 392/4:15 nonspecific T-wave configuration artifact present - Radiology Data Radiology results: report reviewed (Imaging reviewed as well as report no evidence of acute processes please see the complete report), image reviewed Disposition Clinical Impression: Delirium due to general medical condition, Dehydration Disposition: ADMITTED IP TO THIS [facility] Condition: Stable Referrals: Mohit Harley MD [Primary Care Provider] - 1-2 days Decision Date: 02/20/22 Decision Time: 17:00
[2022-02-20 13:25] LABS: Anisocytosis Slight; Basophils % (A) 0 %; Eosinophils # (A) 0.1 k/uL (0-0.7); Eosinophils % (A) 2 %; HCT 43.7 % (34.0-46.0); HGB 13.1 gm/dL (11.4-16.0); Hypochromasia Marked; Lymphocytes # (A) 3.4 k/uL (1.0-4.8); Lymphocytes % (A) 50 %; MCH 24.5 pg (25.0-35.0); MCHC 29.9 g/dL (31.0-37.0); MCV 81.8 fL (80.0-100.0); Mean Platelet Volume 9.5; Microcytosis Slight; Monocytes # (A) 0.4 k/uL (0-1.0); Monocytes % (A) 6 %; Neutrophils # (A) 2.7 k/uL (1.3-7.7); Neutrophils % (A) 40 %; Platelet Count 133 k/uL (150-450); RBC 5.34 m/uL (3.80-5.40); RDW 17.3 % (11.5-15.5); WBC 6.8 k/uL (3.8-10.6)
[2022-02-20 13:34] LABS: Albumin 4.5 g/dL (3.5-5.0); Magnesium 1.7 mg/dL (1.6-2.3); Total Bilirubin 0.4 mg/dL (0.2-1.3); Total Protein 8.4 g/dL (6.3-8.2)
[2022-02-20 13:38] LABS: INR 1.1 (<1.2); Prothrombin Time 11.8 sec (9.0-12.0)
[2022-02-20 13:40] LABS: Lactic Acid, Venous 1.3 mmol/L (0.7-2.0)
--- NOTE | 2022-02-20 14:16 | XR ---
EXAMINATION TYPE: XR chest 2V DATE OF EXAM: 02/20/2022 COMPARISON: 07/25/2021 HISTORY: 61-year-old female confusion, altered mental status TECHNIQUE: AP and lateral views FINDINGS: Heart normal size. Patient is rotated toward the left ovary normal cardiac and mediastinal contours. Pulmonary vasculature within normal limits. Possible subpleural nodule lateral right apex. Mild inte rstitial prominence is a chronic appearance. No consolidation or pleural effusion seen. IMPRESSION: Chronic-appearing changes. Rotated exam. No definite acute process. Possible developing lateral right apical pulmonary nodule. Nonemergent follow-up CT chest recommended to exclude a pulmonary nodule he re.
[2022-02-20 14:36] LABS: Appearance,Urine Clear (Clear); Color,Urine Yellow
[2022-02-20 14:37] LABS: Bilirubin,Urine Negative (Negative); Blood,Urine Negative (Negative); Glucose,Urine (UA) Negative (Negative); Ketones,Urine Negative (Negative); Leukocyte Esterase,Urine Negative (Negative); Nitrite,Urine Negative (Negative); PH, Urine 5.5 (5.0-8.0); Protein,Urine Negative (Negative); Specific Gravity,Urine 1.016 (1.001-1.035); Urobilinogen,Urine <2.0 mg/dL (<2.0)
[2022-02-20 14:45] LABS: Amphetamine Screen,Urine Not Detected (NotDetected); Barbiturate Screen,Urine Not Detected (NotDetected); Benzodiazepines Screen,Urine Not Detected (NotDetected); Cocaine Screen,Urine Not Detected (NotDetected); Methadone Screen, Urine Not Detected (NotDetected); Opiate Screen,Urine Not Detected (NotDetected); Oxycodone Screen, Urine Not Detected (NotDetected); Phencyclidine Screen,Urine Not Detected (NotDetected); Tricyclic Antidepressant,Urine Not Detected (NotDetected); Urn Cannabinoid Scrn Not Detected (NotDetected)
--- NOTE | 2022-02-20 16:08 | CT ---
EXAMINATION TYPE: CT brain wo con DATE OF EXAM: 02/20/2022 COMPARISON: 07/25/2021 INDICATION: AMS. Hx CVA, cranial stents DLP: 1232.4 mGycm, Automated exposure control for dose reduction was used. CONTRAST: None CT of the brain is performed utilizing 3 mm thick sections through the posterior fossa and 3 mm thick sections through the remaining calvarium. Study is performed within 24 hours of arrival to the hosp ital. No abnormal hyperdensity is present to suggest an acute intracranial hemorrhage. No mass lesion is evident. There is an aneurysm clip with beam hardening artifact from the left supra sellar cistern. There is an old large right watershed region infarct. No acute infarcts are evident. There is some pe riventricular white matter hypodensity, likely on the basis of chronic white matter ischemic changes. Ventricles and sulci are prominent for the patient age. Extraocular effect is evident on the right o ccipital horn lateral ventricle and right parietal sulci. There is prominence of the left cerebral carlton lci compatible with atrophy. Paranasal sinuses and mastoid air cells within the [id number] are clear. IMPRESSIONS: 1. Atrophy with periventricular white matter ischemic type changes. 2. Old right watershed infarct.
[2022-02-20] MEDS ORDERED: ACETAMINOPHEN TAB 325 MG TAB PO PRN (17:22)
[2022-02-20] MEDS ORDERED: NALOXONE 0.4 MG/ML 1 ML VIAL IV PRN (17:22)
[2022-02-20] MEDS: SODIUM CHLORIDE 0.9% 1,000 ML IV SCH (17:31)
[2022-02-20] MEDS: ATORVASTATIN 20 MG TAB PO SCH (21:26)
[2022-02-20] MEDS: DIVALPROEX 500 MG TABLET.DR PO SCH (21:26)
[2022-02-20] MEDS: METOPROLOL TARTRATE 50 MG TAB PO SCH (21:26)
[2022-02-20] MEDS: ARIPiprazole 10 MG TAB PO SCH (21:27)
[2022-02-21] MEDS: SODIUM CHLORIDE 0.9% 1,000 ML IV SCH ×4 (04:19→21:33)
[2022-02-21] MEDS: LEVOTHYROXINE 75 MCG TAB PO SCH (05:53)
[2022-02-21] MEDS: ASPIRIN 81 MG PO SCH (08:32)
[2022-02-21] MEDS: METOPROLOL TARTRATE 50 MG TAB PO SCH ×2 (08:32→20:43)
[2022-02-21] MEDS: SERTRALINE 25 MG TAB PO SCH (08:32)
[2022-02-21] MEDS: DIVALPROEX 500 MG TABLET.DR PO SCH ×2 (08:33→20:43)
[2022-02-21] MEDS: PANTOPRAZOLE 40 MG TABLET PO SCH (08:33)
[2022-02-21] MEDS: DIVALPROEX 250 MG TABLET.DR PO SCH (08:33)
[2022-02-21] MEDS: SERTRALINE 100 MG TAB PO SCH (08:33)
[2022-02-21] MEDS ORDERED: VANCOMYCIN IV PER PHARMACY 1 EACH MISC MISCELLANE PRN (11:46)
[2022-02-21] MEDS ORDERED: VANCOMYCIN 1,000 MG in SODIUM CHLORIDE 0.9% 250 ML IVPB SCH (13:00)
--- NOTE | 2022-02-21 15:03 | P.CNNES ---
History of Present Illness Consult date: 02/21/22 Requesting physician: Azael Arguello Reason for Consult: Altered mental status, dehydration, history of CVA and rule out TIA History of Present Illness: Patient is a 61-year-old female who has history of previous right MCA territory stroke, with left hemiplegia, seizure disorder, bedbound, who came to the hospital by ambulance yesterday at 12:16 PM for possible seizure. Patient states that she went to a restaurant with her family. Her legs were hurting really bad. When she went back to the car, she went to sleep and passed out. Someone helped her to pitted arouse. Patient states that when she came to, her 6 grandchildren were trying to get her back to. She states that she doesn't remember how she came to the hospital. She claims she has history of seizure disorder. According to the EMS flow sheet, when they arrived, found patient in the hospital bed. Patient has history of CVA and seizures. Patient is alert and oriented to baseline when EMS arrived. Family believe that she was unresponsive and not responding appropriately. Per family, they have videocamera set up to keep an eye on her and did not notice any seizure activity. Patient denied any recent fever or chills. Per family patient is bedbound from previous CVA. Patient recently had UTIs. Patient had no shortness of breath or chest pain. Patient's blood pressure was 112/61, pulse rate 72, respiration 18 and saturation 95%. Blood glucose was 107. Patient's blood test shows normal CBC with platelets 133. PT/PTT normal. Elect rolytes are normal, BUN 33, creatinine 1.32. AST 39 borderline, with normal ALT 20. Ammonia is normal 9. CK normal 50, troponin negative. UA negative. Depakote level 59. Gomez virus-negative, influenza screen negative. CT head revealed atrophy with periventricular white matter ischemic type changes. Old right watershed infarct. I personally reviewed CT head, which reveals large right MCA territory old infarct. Also evidence of a metallic clip involving the left anterior circulation region in the region of MCA. Patient has been seen by myself on 07/26/2021 when she has presented with generalized weakness, decreased mobility ambulation which was felt to be related to poor oral intake, dehydration with acute kidney injury. Patient's current medications include aspirin 81 mg, Zoloft 100 mg, metoprolol 100 mg twice a day, Lipitor 20 mg, Abilify 10 mg, Depakote 250 mg in the morning and 500 mg twice a day levothyroxine, baclofen 10 mg 3 times a day, Zoloft 25 mg daily. Review of Systems As mentioned above in HPI. All other reasons reviewed, and noncontributory to the present illness. Past Medical History Past Medical History: CVA/TIA, Hyperlipidemia, Hypertension, Osteoarthritis (OA) Additional Past Medical History / Comment(s): ANEMIA, CVA WITH L ARM WEAKNESS AND L LEG WEAKNESS, hx. gout, PANCREATITIS, pseudoseizures, UTI, gallstones, tremors, hx multiple brain aneursyms History of Any Multi-Drug Resistant Organisms: ESBL Date of last positivie culture/infection: 03/18/18 ESBL E.coli MDRO Source:: Urine Past Surgical History: Section, Cholecystectomy, Orthopedic Surgery Additional Past Surgical History / Comment(s): hx aneurysms- COILS AND STENTS TO BRAIN, repair tendons r/t gout BILATERAL FEET. Past Anesthesia/Blood Transfusion Reactions: No Reported Reaction Additional Past Anesthesia/Blood Transfusion Reaction / Comment(s): PT HAS HAD BLOOD TRANSFUSIONS FOR ANEMIA-NO REACTION. Past Psychological History: Anxiety, Depression, Schizophrenia Additional Psychological History / Comment(s): paranoid schizophrenia Smoking Status: Former smoker, Unknown if ever smoked Past Alcohol Use History: Abuse, Heavy Additional Past Alcohol Use History / Comment(s): STARTED SMOKING AT AGE 14, SMOKED 1PPD, QUIT >20 YEARS AGO BUT SMOKED AGAIN BRIEFLY WHEN AT [place] BUT QUIT 2.5 YEARS AGO Past Drug Use History: Cocaine Additional Drug Use History / Comment(s): No current use. Last used 17 yrs ago. - Past Family History Sister(s) Family Medical History: Myocardial Infarction ([place]) Father Family Medical History: Cancer Additional Family Medical History / Comment(s): throat, lung, and rectal cancer Mother Family Medical History: Myocardial Infarction ([place]) Additional Family Medical History / Comment(s): stroke Medications and Allergies Home Medications Medication Instructions Recorded Confirmed Type Aspirin EC [Ecotrin Low Dose] 81 mg PO DAILY 04/12/16 02/20/22 History Metoprolol Tartrate 100 mg PO BID 01/04/17 02/20/22 History Sertraline [Zoloft] 100 mg PO DAILY 01/04/17 02/20/22 History Omeprazole [PriLOSEC] 20 mg PO DAILY 02/09/20 02/20/22 History Atorvastatin [Lipitor] 20 mg PO HS #30 tab 02/13/20 02/20/22 Rx ARIPiprazole [Abilify] 10 mg PO HS 04/08/21 02/20/22 History Divalproex [Depakote] 250 mg PO DAILY 90 Days #90 tablet 08/02/21 02/20/22 Rx Baclofen 10 mg PO TID PRN 02/20/22 02/20/22 History Divalproex [Depakote] 500 mg PO BID 02/20/22 02/20/22 History Levothyroxine Sodium [Synthroid] 75 mg PO DAILY 02/20/22 02/20/22 History Sertraline [Zoloft] 25 mg PO DAILY 02/20/22 02/20/22 History Allergies Allergy/AdvReac Type Severity Reaction Status Date / Time No Known Allergies Allergy Verified 02/20/22 13:00 Physical Examination - Vital Signs Vital Signs: Vital Signs Temp Pulse Pulse Resp BP BP Pulse Ox 02/21/22 07:29 98 F 67 12 133/82 97 02/21/22 04:16 98.9 F 76 16 149/84 99 02/20/22 20:00 16 02/20/22 19:36 98.5 F 74 16 138/72 98 02/20/22 18:14 75 16 159/83 97 02/20/22 16:50 98.7 F 75 14 164/100 97 02/20/22 16:00 74 14 181/96 97 02/20/22 15:00 64 14 128/72 98 02/20/22 14:00 61 14 178/95 99 02/20/22 13:00 64 14 145/94 98 02/20/22 12:20 97.7 F 65 18 150/82 99 Intake and Output 02/20/22 02/21/22 02/21/22 22:59 06:59 14:59 Other: Voiding Method Incontinent # Voids 1 Weight 57.289 kg Patient is an elderly Afro-[place]er female, who appears older than her stated age. She is slightly cachectic. Patient is alert awake. Speech and language functions are normal. Attention, concentration is intact and fund of knowledge is somewhat limited. On cranial nerve examination, pupils are equal, round and reacting to light, visual campoverde are full on confrontation, although she would not cooperate well and hold gaze in the Center to check for peripheral vision. Her extraocular muscles are intact with no nystagmus. Face is symmetric, tongue protrudes to the midline. Palatal elevation and sensation normal, hearing normal, facial sensation normal. Shoulder shrug decreased on the left. On muscle strength testing, patient is spastic paretic in the left upper extremity. Her strength is normal in the right upper extremity. Her left upper extremity is biceps 4+, triceps 4, deltoid comes only up to 60 with some resistance 3+4-. Her lower extremities are about 1-2. Deep tendon reflexes are 3 in the right upper limb, 2 in the left upper limb, 1 in the lower limbs and plantars are upgoing bilaterally. Sensory to touch is equal but she neglects left side on double simultaneous stimulation. Cerebellar function showed no ataxia for [id number] testing on the right, cannot perform on the left. Tone is increased in the left side and bulk of muscles normal. Gait patient is nonambulatory. On general examination, there is no carotid bruit or murmur, S1-S2 audible. Abdomen is soft nontender. Bowel sounds present, no organomegaly. Chest is cl ear to auscultation. Peripheral pulses are present. No edema. Results - Laboratory Findings CBC and BMP: 02/20/22 13:06 02/20/22 13:06 Abnormal Lab Findings: Abnormal Labs 02/20/22 02/20/22 13:06 13:06 MCH 24.5 L MCHC 29.9 L RDW 17.3 H Plt Count 133 L Chloride 113 H Carbon Dioxide 17 L BUN 33 H Creatinine 1.32 H AST 39 H Total Protein 8.4 H Assessment and Plan Assessment: * Seizure disorder, came with episode of unresponsiveness. Rule out transient encephalopathy, rule out complex partial seizure. Her mentation appears back to baseline. No evidence of encephalopathy at this time. * Positive blood culture, gram-positive cocci. 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 Plan: * Patient has history of seizure disorder, came with episode of unresponsiveness. Uncertain if it was a seizure. * Patient is currently on Depakote 750 mg the morning, 500 mg at night. Her Depakote level is therapeutic 59.0. * Check EEG evaluate for any epileptiform activity. * Patient's blood culture is positive. Currently on vancomycin. ID consult initiated. * Neurology will follow. Thank you for the consult.
--- NOTE | 2022-02-21 15:48 | EEG ---
ELECTROENCEPHALOGRAM REPORT DATE OF SERVICE: 02/21/2022 PREAMBLE: This is a 61-year-old female with recurrent episodes of unresponsiveness. This study is performed to rule out any seizure activity. EEG FINDINGS: This is a 21-channel digital EEG recorded with video component, utilizing 10/20 international system with referential and bipolar montages. 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 Otherwise, the background consists of moderately well-developed and -regulated mixed frequencies of 7 hertz theta, with some 8 hertz alpha activity seen slightly better in the left hemispheric region. In the right hemispheric region, the background is somewhat suppressed, with low voltage activity in mixed beta and some alpha activity. Background seems to be slightly reactive to eye opening and closing. Photic stimulation was not performed. Some sharply contoured theta was seen in the left temporal region, with intermittent moderate amplitude of focal slowing in theta and delta range in the left temporal region. No electrographic seizure was recorded. Photic stimulation was not performed. Different stages of sleep were not seen. IMPRESSION: This is an abnormal EEG due to: 1. 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 2. Slightly sharply contoured theta seen intermittently in the left temporal region, which may be related to breach rhythm, although underlying cortical irritability cannot be ruled out. Consider prolonged EEG for further evaluation. No electrographic seizures were recorded. 3. Background disorganization, suggestive of mild encephalopathy. MMODL / IJN: [id number] / CESAR
[2022-02-21] MEDS: ATORVASTATIN 20 MG TAB PO SCH (20:43)
[2022-02-21] MEDS: ARIPiprazole 10 MG TAB PO SCH (20:43)
--- NOTE | 2022-02-21 21:27 | P.HPIM ---
History of Present Illness H&P Date: 02/21/22 Chief Complaint: Decreased responsiveness I'm rounding for Dr. Mohit Harley: This is a 61-year-old patient who follows with Dr. Mohit Harley. Chronic stable medical conditions include hyperlipidemia, hypertension, osteoarthritis, gout, history of multiple brain aneurysms. Patient's had a prior stroke with contracture of the left arm and weakness of lower extremity left greater than right. Patient does not ambulate. She had gone to a restaurant with her family. Her lower extremities were hurting. When she went back to the car she passed out. When she did, round and grandchildren were trying to get a back up. She did not remember coming to the hospital. They has a video camera inpatient room for the family to keep an eye on her and did not show any seizure activity. Patient is pitting much bedbound from a previous stroke. Patient is able to tolerate a diet. No headache. No change in vision. Review of systems: GEN.: Tired EYES: None HEENT: None NECK: None RESPIRATORY: None CARDIOVASCULAR: None GASTROINTESTINAL: None GENITOURINARY: Incontinent MUSCULOSKELETAL: Joint pains LYMPHATICS: None HEMATOLOGICAL: None PSYCHIATRY: None NEUROLOGICAL: As above, contractured left arm and weakness on the left side Past medical history to include: Stroke with left-sided weakness, hypertension, hyperlipidemia, osteoarthritis, gout, gallstones, multiple brain aneurysms with causes stents to the brain, depression, schizophrenia. Excessive alcohol use in the past. Social history: *Smoke age of 14, 1 pack a day, quit over 20 years ago. Smoked again for a short time and at [place] stopped when a half years ago. Previously used cocaine. None in the last 17 years. Heavy alcohol use in the past. Family history: Cancer of the throat lung rectum Physical examination: VITAL SIGNS: 98, 67, 12, 133 with 82, 97% room air GENERAL: BMI 24.7, resting in bed, not in distress. EYES: Pupils equal. Conjunctiva normal. HEENT: External appearance of nose and ears normal, oral cavity grossly normal. Scanty scalp hair NECK: JVD not raised; masses not palpable. HEART: First and second heart sounds are normal; no edema. LUNGS: Respiratory rate normal; decreased breath sounds. ABDOMEN: Soft, nontender, liver spleen not palpable, no masses palpable. PSYCH: Patient able tonsil's questions slowlyl. MUSCULOSKELETAL:No Clubbing/cyanosis;muscles-grossly intact. Contracture of the left arm. Some evidence of OA NEUROLOGICAL: [Cranial nerves grossly intact; no facial asymmetry, contracture of the left arm, power in the lower extremity 4/5 LYMPHATICS: No lymph nodes palpable in the axilla and neck INVESTIGATIONS, reviewed in the clinical context: White count 6.8, hemoglobin 13.1, platelets 133 sodium 141 potassium 5 bicarbonate 17 BUN 33 creatinine 1.3 to UA: Negative Urine drug screen: Negative COVID 19/influenza type A/diabetes: Not detected EKG tracing personally reviewed by me-poor baseline. Sinus rhythm. Nonspecific T-wave changes Chest x-ray film personally reviewed by me-possible chronic changes Computed tomography scan brain: Old right watershed infarct. Atrophy with periventricular white matter ischemic type changes. EEG: No obvious seizure activity reported Assessment and plan: -Episode of unconsciousness. This could be related to seizure activity. Risk factors include previous brain surgery. Checks. Neurology consultation. EEG findings nonspecific -Chronic medical debility, patient is bedbound -Left hemiparesis from a prior stroke Fall precautions -Anxiety depression not otherwise specified Zoloft -Schizophrenia Abilify 10 mg daily at bedtime -GERD Prilosec 20 mg a day -Hypertension Metoprolol 100 mg twice a day -Hyperlipidemia Lipitor 20 mg daily at bedtime -Sepsis with blood cultures positive for Streptococcus species IV ceftriaxone. Consult ID -Chronic kidney disease stage III likely nephrosclerosis Follow renal function -Hypothyroid Synthroid 35 g per day Consultation to ID and neurology. IV ceftriaxone. Home medications reviewed. Neuro checks. Fall precautions. Past Medical History Past Medical History: CVA/TIA, Hyperlipidemia, Hypertension, Osteoarthritis (OA) Additional Past Medical History / Comment(s): ANEMIA, CVA WITH L ARM WEAKNESS AND L LEG WEAKNESS, hx. gout, PANCREATITIS, pseudoseizures, UTI, gallstones, tremors, hx multiple brain aneursyms History of Any Multi-Drug Resistant Organisms: ESBL Date of last positivie culture/infection: 03/18/18 ESBL E.coli MDRO Source:: Urine Past Surgical History: Section, Cholecystectomy, Orthopedic Surgery Additional Past Surgical History / Comment(s): hx aneurysms- COILS AND STENTS TO BRAIN, repair tendons r/t gout BILATERAL FEET. Past Anesthesia/Blood Transfusion Reactions: No Reported Reaction Additional Past Anesthesia/Blood Transfusion Reaction / Comment(s): PT HAS HAD BLOOD TRANSFUSIONS FOR ANEMIA-NO REACTION. Past Psychological History: Anxiety, Depression, Schizophrenia Additional Psychological History / Comment(s): paranoid schizophrenia Smoking Status: Former smoker, Unknown if ever smoked Past Alcohol Use History: Abuse, Heavy Additional Past Alcohol Use History / Comment(s): STARTED SMOKING AT AGE 14, SMOKED 1PPD, QUIT >20 YEARS AGO BUT SMOKED AGAIN BRIEFLY WHEN AT [place] BUT QUIT 2.5 YEARS AGO Past Drug Use History: Cocaine Additional Drug Use History / Comment(s): No current use. Last used 17 yrs ago. - Past Family History Sister(s) Family Medical History: Myocardial Infarction ([place]) Father Family Medical History: Cancer Additional Family Medical History / Comment(s): throat, lung, and rectal cancer Mother Family Medical History: Myocardial Infarction ([place]) Additional Family Medical History / Comment(s): stroke Medications and Allergies Home Medications Medication Instructions Recorded Confirmed Type Aspirin EC [Ecotrin Low Dose] 81 mg PO DAILY 04/12/16 02/20/22 History Metoprolol Tartrate 100 mg PO BID 01/04/17 02/20/22 History Sertraline [Zoloft] 100 mg PO DAILY 01/04/17 02/20/22 History Omeprazole [PriLOSEC] 20 mg PO DAILY 02/09/20 02/20/22 History Atorvastatin [Lipitor] 20 mg PO HS #30 tab 02/13/20 02/20/22 Rx ARIPiprazole [Abilify] 10 mg PO HS 04/08/21 02/20/22 History Divalproex [Depakote] 250 mg PO DAILY 90 Days #90 tablet 08/02/21 02/20/22 Rx Baclofen 10 mg PO TID PRN 02/20/22 02/20/22 History Divalproex [Depakote] 500 mg PO BID 02/20/22 02/20/22 History Levothyroxine Sodium [Synthroid] 75 mg PO DAILY 02/20/22 02/20/22 History Sertraline [Zoloft] 25 mg PO DAILY 02/20/22 02/20/22 History Allergies Allergy/AdvReac Type Severity Reaction Status Date / Time No Known Allergies Allergy Verified 02/20/22 13:00 Physical Exam Vitals: Vital Signs Temp Pulse Resp BP Pulse Ox 02/21/22 19:33 98.5 F 77 16 133/83 97 02/21/22 16:24 99.0 F 74 18 156/86 99 02/21/22 08:45 97 02/21/22 07:29 98 F 67 12 133/82 97 02/21/22 04:16 98.9 F 76 16 149/84 99 Intake and Output 02/21/22 02/21/22 02/21/22 06:59 14:59 22:59 Intake Total 1000 Balance 1000 Intake: Oral 1000 Other: Voiding Method Incontinent # Voids 1 1 3 Results CBC & Chem 7: 02/20/22 13:06 02/20/22 13:06 Labs: Microbiology - Last 24 Hours (Table) 02/20/22 13:06 Blood Culture Gram Stain - Preliminary Blood Blood Culture - Preliminary Streptococcus species 02/20/22 13:06 Blood Culture - Preliminary Blood No Growth after 24 hours 02/20/22 13:06 Blood Culture - Final Blood Thrombosis Risk Factor Assmnt - Choose All That Apply Each Risk Factor Represents 2 Points: Age 61-74 years Thrombosis Risk Factor Assessment Total Risk Factor Score: 2 Thrombosis Risk Factor Assessment Level: Low Risk
[2022-02-21] MEDS: BACLOFEN 10 MG TAB PO PRN (21:39)
[2022-02-22] MEDS: LEVOTHYROXINE 75 MCG TAB PO SCH (05:28)
--- NOTE | 2022-02-22 07:25 | P.CONS ---
History of Present Illness - Reason for Consult Consult date: 02/21/22 Bacteremia Requesting physician: Mohit Harley - Chief Complaint decreased level of consciousness x 1 day - History of Present Illness Patient is a 61-year-old -Citizen Of [place] female with a past medical history significant for CVA with left-sided contracture history of UTI and pneumonia the patient was brought into the ER yesterday afternoon by EMS with the patient kori phelps concerning for decreased level of consciousness apparently the patient is on video monitoring and no seizure was noticed no clear history of any fever or chills patient apparently looked dehydrated to the EMS and the patient was brought into the ER on arrival to the ER the patient was afebrile and no fever have been recorded subsequently patient was not hypoxic or need for supplemental oxygen patient did have a normal white count with a left shift BUN creatinine was mildly elevated as well as AST urine was negative urine toxin was negative influenza biswas PCR was negative patient did have a chest x-ray chronic appearing changes rotated exam and no definite acute process patient did have blood cultures drawn which are coming back positive with gram-positive cocci patient was started on vancomycin infectious disease was consulted for further management of antibiotic therapy patient currently do not have any pressure ulcer the skin as per discussion with nursing staff Review of Systems Positive points has been mentioned in HPI complete review could not be obtained because of his underlying mental status Past Medical History Past Medical History: CVA/TIA, Hyperlipidemia, Hypertension, Osteoarthritis (OA) Additional Past Medical History / Comment(s): ANEMIA, CVA WITH L ARM WEAKNESS AND L LEG WEAKNESS, hx. 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 Past Anesthesia/Blood Transfusion Reactions: No Reported Reaction Additional Past Anesthesia/Blood Transfusion Reaction / Comm: PT HAS HAD BLOOD TRANSFUSIONS FOR ANEMIA-NO REACTION. Past Psychological History: Anxiety, Depression, Schizophrenia Additional Psychological History / Comment(s): paranoid schizophrenia Smoking Status: Former smoker, Unknown if ever smoked Past Alcohol Use History: Abuse, Heavy Additional Past Alcohol Use History / Comment(s): STARTED SMOKING AT AGE 14, SMOKED 1PPD, QUIT >20 YEARS AGO BUT SMOKED AGAIN BRIEFLY WHEN AT [place] BUT QUIT 2.5 YEARS AGO Past Drug Use History: Cocaine Additional Drug Use History / Comment(s): No current use. Last used 17 yrs ago. - Past Family History Sister(s) Family Medical History: Myocardial Infarction (AL) Father Family Medical History: Cancer Additional Family Medical History / Comment(s): throat, lung, and rectal cancer Mother Family Medical History: Myocardial Infarction ([place]) Additional Family Medical History / Comment(s): stroke Medications and Allergies Home Medications Medication Instructions Recorded Confirmed Type Aspirin EC [Ecotrin Low Dose] 81 mg PO DAILY 04/12/16 02/20/22 History Metoprolol Tartrate 100 mg PO BID 01/04/17 02/20/22 History Sertraline [Zoloft] 100 mg PO DAILY 01/04/17 02/20/22 History Omeprazole [PriLOSEC] 20 mg PO DAILY 02/09/20 02/20/22 History Atorvastatin [Lipitor] 20 mg PO HS #30 tab 02/13/20 02/20/22 Rx ARIPiprazole [Abilify] 10 mg PO HS 04/08/21 02/20/22 History Divalproex [Depakote] 250 mg PO DAILY 90 Days #90 tablet 08/02/21 02/20/22 Rx Baclofen 10 mg PO TID PRN 02/20/22 02/20/22 History Divalproex [Depakote] 500 mg PO BID 02/20/22 02/20/22 History Levothyroxine Sodium [Synthroid] 75 mg PO DAILY 02/20/22 02/20/22 History Sertraline [Zoloft] 25 mg PO DAILY 02/20/22 02/20/22 History Allergies Allergy/AdvReac Type Severity Reaction Status Date / Time No Known Allergies Allergy Verified 02/20/22 13:00 Physical Exam Vitals: Vital Signs Temp Pulse Pulse Resp BP BP Pulse Ox 02/21/22 08:45 97 02/21/22 07:29 98 F 67 12 133/82 97 02/21/22 04:16 98.9 F 76 16 149/84 99 02/20/22 20:00 16 02/20/22 19:36 98.5 F 74 16 138/72 98 02/20/22 18:14 75 16 159/83 97 02/20/22 16:50 98.7 F 75 14 164/100 97 02/20/22 16:00 74 14 181/96 97 02/20/22 15:00 64 14 128/72 98 02/20/22 14:00 61 14 178/95 99 02/20/22 13:00 64 14 145/94 98 Intake and Output 02/20/22 02/21/22 02/21/22 22:59 06:59 14:59 Other: Voiding Method Incontinent Incontinent # Voids 1 1 Weight 57.289 kg GENERAL DESCRIPTION: Middle-aged female lying in bed, no distress. No tachypnea or accessory muscle of respiration use. HEENT: Shows Pallor , no scleral icterus. Oral mucous membrane is dry. No pharyngeal erythema or thrush NECK: Trachea central, no thyromegaly. LUNGS: Unlabored breathing. Decreased breath sound the bases. No wheeze or crackle. HEART: S1, S2, regular rate and rhythm. No loud murmur ABDOMEN: Soft, no tenderness , guarding or rigidity, no organomegaly EXTREMITIES: No edema of feet. SKIN: No rash, no masses palpable. NEUROLOGICAL: The patient is awake, alert, oriented x2, mood and affect normal. Results CBC & Chem 7: 02/20/22 13:06 02/20/22 13:06 Labs: Abnormal Lab Results - Last 24 Hours (Table) 02/20/22 02/20/22 Range/Units 13:06 13:06 MCH 24.5 L (25.0-35.0) pg MCHC 29.9 L (31.0-37.0) g/dL RDW 17.3 H (11.5-15.5) % Plt Count 133 L (150-450) k/uL Chloride 113 H (98-107) mmol/L Carbon Dioxide 17 L (22-30) mmol/L BUN 33 H (7-17) mg/dL Creatinine 1.32 H (0.52-1.04) mg/dL AST 39 H (14-36) U/L Total Protein 8.4 H (6.3-8.2) g/dL Microbiology - Last 24 Hours (Table) 02/20/22 13:06 Blood Culture Gram Stain - Preliminary Blood 02/20/22 13:06 Blood Culture - Final Blood Assessment and Plan (1) Bacteremia Current Visit: Yes Status: Acute Code(s): R78.81 - BACTEREMIA SNOMED Code(s): 3001385 Plan: 1patient with a positive blood culture with gram-positive cocci Streptococcus species in this patient presented to hospital with decreased level of consciousness however the patient did not have any fever or elevated white count and no obvious focus of infection with initial work-up negative negative UA chest x-ray was negative for pneumonia questionable skin contaminant. 2we will repeat blood cultures to document clearance of bacteremia and check inflammatory markers. 3vancomycin has been discontinued and we will switch Rocephin to 2 g daily We will follow on clinical condition and cultures to further adjust medication if needed Thank you for this consultation will follow this patient along with you Time with Patient: Greater than 30
[2022-02-22] MEDS: DIVALPROEX 500 MG TABLET.DR PO SCH ×2 (09:14→20:33)
[2022-02-22] MEDS: ASPIRIN 81 MG PO SCH (09:14)
[2022-02-22] MEDS: PANTOPRAZOLE 40 MG TABLET PO SCH (09:15)
[2022-02-22] MEDS: SERTRALINE 25 MG TAB PO SCH (09:15)
[2022-02-22] MEDS: METOPROLOL TARTRATE 50 MG TAB PO SCH ×2 (09:15→20:33)
[2022-02-22] MEDS: SERTRALINE 100 MG TAB PO SCH (09:15)
[2022-02-22] MEDS: DIVALPROEX 250 MG TABLET.DR PO SCH (09:15)
[2022-02-22] MEDS ORDERED: cefTRIAXone 1,000 MG VIAL (IM USE) IM STA (12:45)
--- NOTE | 2022-02-22 18:47 | P.PN ---
Progress Note - Text Progress Note Date: 02/22/22 Chief Complaint: Decreased responsiveness I'm rounding for Dr. Mohit Harley: This is a 61-year-old patient who follows with Dr. Mohit Harley. Chronic stable medical conditions include hyperlipidemia, hypertension, osteoarthritis, gout, history of multiple brain aneurysms. Patient's had a prior stroke with contracture of the left arm and weakness of lower extremity left greater than right. Patient does not ambulate. She had gone to a restaurant with her family. Her lower extremities were hurting. When she went back to the car she passed out. When she did, round and grandchildren were trying to get a back up. She did not remember coming to the hospital. They has a video camera inpatient room for the family to keep an eye on her and did not show any seizure activity. Patient is pitting much bedbound from a previous stroke. Patient is able to tolerate a diet. No headache. No change in vision. February 22: Oral intake fair. Blood cultures growing alpha hemolytic streptococcus. In 2 sets. Repeat blood culture ordered yesterday. On IV ceftriaxone. Active Medications Acetaminophen (Acetaminophen Tab 325 Mg Tab) 650 mg PO Q6HR PRN PRN Reason: Mild Pain or Fever > 100.5 Aripiprazole (Aripiprazole 10 Mg Tab) 10 mg PO HS [facility] Last Admin: 02/21/22 20:43 Dose: 10 mg Aspirin (Aspirin 81 Mg) 81 mg PO DAILY [facility] Last Admin: 02/22/22 09:14 Dose: 81 mg Atorvastatin Calcium (Atorvastatin 20 Mg Tab) 20 mg PO HS [facility] Last Admin: 02/21/22 20:43 Dose: 20 mg Baclofen (Baclofen 10 Mg Tab) 10 mg PO TID PRN PRN Reason: Muscle Spasm Last Admin: 02/21/22 21:39 Dose: 10 mg Divalproex Sodium (Divalproex 500 Mg Tablet.) 500 mg PO BID [facility] Last Admin: 02/22/22 09:14 Dose: 500 mg Divalproex Sodium (Divalproex 250 Mg Tablet.) 250 mg PO DAILY [facility] Last Admin: 02/22/22 09:15 Dose: 250 mg Sodium Chloride (Saline 0.9%) 1,000 mls @ 50 mls/hr IV .Q20H [facility] Last Admin: 02/21/22 21:33 Dose: 50 mls/hr Ceftriaxone Sodium 2 gm/ (Sodium Chloride) 50 mls @ 100 mls/hr IVPB Q24HR [facility]; Protocol Last Admin: 02/22/22 09:13 Dose: Not Given Levothyroxine Sodium (Levothyroxine 75 Mcg Tab) 75 mcg PO DAILY@0630 [facility] Last Admin: 02/22/22 05:28 Dose: 75 mcg Metoprolol Tartrate (Metoprolol Tartrate 50 Mg Tab) 100 mg PO BID [facility] Last Admin: 02/22/22 09:15 Dose: 100 mg Naloxone HCl (Naloxone 0.4 Mg/Ml 1 Ml Vial) 0.2 mg IV Q2M PRN PRN Reason: Opioid Reversal Pantoprazole Sodium (Pantoprazole 40 Mg Tablet) 40 mg PO DAILY [facility] Last Admin: 02/22/22 09:15 Dose: 40 mg Sertraline HCl (Sertraline 100 Mg Tab) 100 mg PO DAILY [facility] Last Admin: 02/22/22 09:15 Dose: 100 mg Sertraline HCl (Sertraline 25 Mg Tab) 25 mg PO DAILY [facility] Last Admin: 02/22/22 09:15 Dose: 25 mg Past medical history to include: Stroke with left-sided weakness, hypertension, hyperlipidemia, osteoarthritis, gout, gallstones, multiple brain aneurysms with causes stents to the brain, depression, schizophrenia. Excessive alcohol use in the past. Social history: *Smoke age of 14, 1 pack a day, quit over 20 years ago. Smoked again for a short time and at [place] stopped when a half years ago. Previously used cocaine. None in the last 17 years. Heavy alcohol use in the past. Family history: Cancer of the throat lung rectum Physical examination: VITAL SIGNS: 97.7, 73, 16, 1:30/88, 100% room air GENERAL: Laying in bed, comfortable, eating EYES: Pupils equal. Conjunctiva normal. HEENT: External appearance of nose and ears normal, oral cavity grossly normal. Scanty scalp hair NECK: JVD not raised; masses not palpable. HEART: First and second heart sounds are normal; no edema. LUNGS: Respiratory rate normal; decreased breath sounds. ABDOMEN: Soft, nontender, liver spleen not palpable, no masses palpable. PSYCH: Patient able tonsil's questions slowlyl. MUSCULOSKELETAL:No Clubbing/cyanosis;muscles-grossly intact. Contracture of the left arm. Some evidence of OA NEUROLOGICAL: [Cranial nerves grossly intact; no facial asymmetry, contracture of the left arm, power in the lower extremity 4/5 INVESTIGATIONS, reviewed in the clinical context: CRP 0.4 White count 6.8, hemoglobin 13.1, platelets 133 sodium 141 potassium 5 bicarbonate 17 BUN 33 creatinine 1.3 to UA: Negative Urine drug screen: Negative COVID 19/influenza type A/diabetes: Not detected EKG tracing personally reviewed by me-poor baseline. Sinus rhythm. Nonspecific T-wave changes Chest x-ray film personally reviewed by me-possible chronic changes Computed tomography scan brain: Old right watershed infarct. Atrophy with periventricular white matter ischemic type changes. EEG: No obvious seizure activity reported Assessment and plan: -Episode of unconsciousness. This could be related to seizure activity. Risk factors include previous brain surgery.: Possibly vasovagal Neuro Checks. Neurology consultation. EEG findings nonspecific -Chronic medical debility, patient is bedbound -Left hemiparesis from a prior stroke Fall precautions -Anxiety depression not otherwise specified Zoloft -Schizophrenia Abilify 10 mg daily at bedtime -GERD Prilosec 20 mg a day -Hypertension Metoprolol 100 mg twice a day -Hyperlipidemia Lipitor 20 mg daily at bedtime -Sepsis with blood cultures positive for Streptococcus species: Repeat blood cultures ordered IV ceftriaxone. Consult ID -Chronic kidney disease stage III likely nephrosclerosis Follow renal function -Hypothyroid Synthroid 35 g per day IV ceftriaxone. Repeat blood cultures from February 21 pending. Other medications to continue. Discussed with patient.
[2022-02-22] MEDS: SODIUM CHLORIDE 0.9% 1,000 ML IV SCH (18:54)
[2022-02-22] MEDS: ATORVASTATIN 20 MG TAB PO SCH (20:33)
[2022-02-22] MEDS: ARIPiprazole 10 MG TAB PO SCH (21:04)
[2022-02-22] MEDS: BACLOFEN 10 MG TAB PO PRN (21:34)
--- NOTE | 2022-02-22 22:03 | P.PN ---
Subjective Progress Note Date: 02/22/22 Principal diagnosis: Positive blood culture Patient is a 61-year-old -[place] female past medical history significant for CVA with left-sided weakness contraction history of UTI presented to the hospital for decreased level of consciousness and concern about possible dehydration patient did have a positive blood culture. On today's evaluation that is 02/22/2022, the patient denies having any fever or chills, she is currently breathing comfortably denies any chest pain shortness of breath occasional cough no abdominal pain no diarrhea Objective - Vital Signs Vital signs: Vital Signs Temp 97.7 F 02/22/22 11:25 Pulse 73 02/22/22 11:25 Resp 16 02/22/22 11:25 BP 130/88 02/22/22 11:25 Pulse Ox 100 02/22/22 11:25 FiO2 Intake & Output 02/21/22 02/22/22 02/22/22 18:59 06:59 18:59 Intake Total 1000 1250 Balance 1000 1250 Intake: Intake, IV Titration 650 Amount Sodium Chloride 0.9% 1, 600 000 ml @ 50 mls/hr IV . Q20H [facility] Rx#:[id number] cefTRIAXone 2 gm In 50 Sodium Chloride 0.9% 50 ml @ 100 mls/hr IVPB Q24HR [facility] Rx#:[id number] Oral 1000 600 Other: Voiding Method Incontinent Diaper Diaper Incontinent Incontinent # Voids 3 1 1 # Bowel Movements 1 - Exam GENERAL DESCRIPTION: A middle-age female lying in bed in no distress RESPIRATORY SYSTEM: Unlabored breathing , decreased breath sounds at bases HEART: S1 S2 regular rate and rhythm , ABDOMEN: Soft , no tenderness EXTREMITIES: No edema feet - Labs CBC & Chem 7: 02/20/22 13:06 02/20/22 13:06 Labs: Microbiology - Last 24 Hours (Table) 02/20/22 13:06 Blood Culture Gram Stain - Preliminary Blood Blood Culture - Preliminary Alpha Hemolytic Streptococcus 02/20/22 13:06 Blood Culture - Preliminary Blood No Growth after 24 hours 02/20/22 13:06 Blood Culture - Final Blood Assessment and Plan (1) Bacteremia Current Visit: Yes Status: Acute Code(s): R78.81 - BACTEREMIA SNOMED Code(s): 1981156 Plan: 1patient with a positive blood culture with gram-positive cocci Streptococcus species in this patient presented to hospital with decreased level of consciousness however the patient did not have any fever or elevated white count and no obvious focus of infection with initial work-up negative negative UA chest x-ray was negative for pneumonia questionable skin contaminant. 2repeat blood cultures and inflammatory markers currently pending clinically looks like skin contaminant rather than true infection. 3patient to continue with Rocephin to 2 g daily while awaiting further workup to be completed Time with Patient: Less than 30
[2022-02-23] MEDS: LEVOTHYROXINE 75 MCG TAB PO SCH (05:34)
[2022-02-23] MEDS ORDERED: cefTRIAXone 1,000 MG VIAL (IM USE) IM STA (08:12)
[2022-02-23] MEDS: DIVALPROEX 250 MG TABLET.DR PO SCH (08:15)
[2022-02-23] MEDS: DIVALPROEX 500 MG TABLET.DR PO SCH ×2 (08:15→20:04)
[2022-02-23] MEDS: SERTRALINE 100 MG TAB PO SCH (08:15)
[2022-02-23] MEDS: PANTOPRAZOLE 40 MG TABLET PO SCH (08:15)
[2022-02-23] MEDS: SERTRALINE 25 MG TAB PO SCH (08:15)
[2022-02-23] MEDS: METOPROLOL TARTRATE 50 MG TAB PO SCH ×2 (08:15→20:04)
[2022-02-23] MEDS: ASPIRIN 81 MG PO SCH (08:15)
[2022-02-23 08:54] LABS: African American GFR (CKD) 60 (>60 ml/min/1.73 sqM); Anion Gap 6 mmol/L; Blood Urea Nitrogen 21 mg/dL (7-17); Carbon Dioxide 15 mmol/L (22-30); Chloride 119 mmol/L (98-107); Glucose 87 mg/dL (74-99); Non-African American GFR(CKD) 52 (>60 ml/min/1.73 sqM); Sodium 140 mmol/L (137-145)
[2022-02-23 08:55] LABS: Calcium 8.4 mg/dL (8.4-10.2)
[2022-02-23 08:59] LABS: Potassium 4.8 mmol/L (3.5-5.1)
[2022-02-23 10:51] LABS: Anisocytosis Slight; Basophils % (A) 0 %; Eosinophils # (A) 0.3 k/uL (0-0.7); Eosinophils % (A) 4 %; HCT 30.6 % (34.0-46.0); Hypochromasia Moderate; Lymphocytes # (A) 3.4 k/uL (1.0-4.8); Lymphocytes % (A) 43 %; MCH 25.3 pg (25.0-35.0); MCHC 31.2 g/dL (31.0-37.0); MCV 81.1 fL (80.0-100.0); Mean Platelet Volume 9.4; Microcytosis Slight; Monocytes # (A) 0.8 k/uL (0-1.0); Monocytes % (A) 11 %; Neutrophils # (A) 3.1 k/uL (1.3-7.7); Neutrophils % (A) 40 %; Platelet Count 102 k/uL (150-450); RBC 3.77 m/uL (3.80-5.40); RDW 17.7 % (11.5-15.5)
[2022-02-23 10:54] LABS: HGB 9.6 gm/dL (11.4-16.0)
[2022-02-23] MEDS: SODIUM CHLORIDE 0.9% 1,000 ML IV SCH (11:36)
--- NOTE | 2022-02-23 11:37 | P.PN ---
Subjective Progress Note Date: 02/22/22 Patient was seen for a follow-up. Patient offers no complaints. Laying comfortably in the bed. Objective - Vital Signs Vital signs: Vital Signs Temp 98.6 F 02/23/22 04:50 Pulse 82 02/23/22 08:40 Resp 16 02/23/22 08:40 BP 91/62 02/23/22 04:50 Pulse Ox 99 02/23/22 04:50 FiO2 Intake & Output 02/22/22 02/23/22 02/23/22 18:59 06:59 18:59 Intake Total 360 Balance 360 Intake: Oral 360 Other: Voiding Method Diaper Diaper Diaper Incontinent Incontinent Incontinent # Voids 5 1 1 # Bowel Movements 1 - Exam Patient's mental status appears intact. Examination is unchanged. - Labs CBC & Chem 7: 02/23/22 09:59 02/23/22 08:21 Labs: Abnormal Lab Results - Last 24 Hours (Table) 02/23/22 02/23/22 Range/Units 08:21 09:59 RBC 3.77 L (3.80-5.40) m/uL Hgb 9.6 L D (11.4-16.0) gm/dL Hct 30.6 L (34.0-46.0) % RDW 17.7 H (11.5-15.5) % Plt Count 102 L (150-450) k/uL Chloride 119 H (98-107) mmol/L Carbon Dioxide 15 L (22-30) mmol/L BUN 21 H (7-17) mg/dL Creatinine 1.12 H (0.52-1.04) mg/dL Microbiology - Last 24 Hours (Table) 02/20/22 13:06 Blood Culture - Preliminary Blood No Growth after 48 hours 02/21/22 12:17 Blood Culture - Preliminary Blood No Growth after 24 hours 02/20/22 13:06 Blood Culture Gram Stain - Preliminary Blood Blood Culture - Preliminary Alpha Hemolytic Streptococcus Assessment and Plan Assessment: * Seizure disorder, came with episode of unresponsiveness. Rule out transient encephalopathy, rule out complex partial seizure. Her mentation appears back to baseline. No evidence of encephalopathy at this time. * Positive blood culture, gram-positive cocci. 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 Plan: * Patient has history of seizure disorder, came with episode of unrespo nsiveness. Uncertain if it was a seizure. * Patient is currently on Depakote 750 mg the morning, 500 mg at night. Her Depakote level is therapeutic 59.0. 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 Slightly sharply controlled theta seen intermittently in the left temporal region, which may be related to breach rhythm, although underlying cortical irritability cannot be ruled out. Consider prolonged EEG for further evaluation. No left graphic seizures were recorded. Background disorganization, suggestive of mild encephalopathy. * Start Vimpat 50 mg twice a day for seizure prophylaxis. After 1 week, increase to 100 mg twice a day. * Patient's blood culture is positive. ID on board. * Patient wanted me to discuss adding any medication with her daughter or son- in-law. Tried to call both, and left message on son-in-law voicemail with return contact number. Spoke to patient's son-in-law, who told me that prior to arrival, he saw her at 2 AM and she was asleep. He checked on her at 5 AM and she was still asleep. He then went back at 9:30 AM, and she was not responding. She looked up at him, but would not respond. I suspect patient had an unwitnessed seizure with postictal state. Informed him that I will be starting her on Vimpat 50 mg twice a day. After 1 week, increase dose to 100 mg twice a day and continue at that dose. Recommend patient to follow up with her neurologist Dr Torres. Neurologically clear for discharge. We will sign off.
[2022-02-23] MEDS: BACLOFEN 10 MG TAB PO PRN ×2 (14:29→23:03)
[2022-02-23] MEDS: LACOSAMIDE 50 MG TABLET PO SCH ×2 (16:08→23:03)
--- NOTE | 2022-02-23 16:55 | P.PN ---
Progress Note - Text Progress Note Date: 02/23/22 Chief Complaint: Decreased responsiveness I'm rounding for Dr. Mohit Harley: This is a 61-year-old patient who follows with Dr. Mohit Harley. Chronic stable medical conditions include hyperlipidemia, hypertension, osteoarthritis, gout, history of multiple brain aneurysms. Patient's had a prior stroke with contracture of the left arm and weakness of lower extremity left greater than right. Patient does not ambulate. She had gone to a restaurant with her family. Her lower extremities were hurting. When she went back to the car she passed out. When she did, round and grandchildren were trying to get a back up. She did not remember coming to the hospital. They has a video camera inpatient room for the family to keep an eye on her and did not show any seizure activity. Patient is pitting much bedbound from a previous stroke. Patient is able to tolerate a diet. No headache. No change in vision. February 22: Oral intake fair. Blood cultures growing alpha hemolytic streptococcus. In 2 sets. Repeat blood culture ordered yesterday. On IV ceftriaxone. February 23: Eating well. Comfortable. Pending repeat cultures results. On IV ceftriaxone. Discussed with patient. Active Medications Acetaminophen (Acetaminophen Tab 325 Mg Tab) 650 mg PO Q6HR PRN PRN Reason: Mild Pain or Fever > 100.5 Aripiprazole (Aripiprazole 10 Mg Tab) 10 mg PO HS [facility] Last Admin: 02/22/22 21:04 Dose: 10 mg Aspirin (Aspirin 81 Mg) 81 mg PO DAILY [facility] Last Admin: 02/23/22 08:15 Dose: 81 mg Atorvastatin Calcium (Atorvastatin 20 Mg Tab) 20 mg PO HS [facility] Last Admin: 02/22/22 20:33 Dose: 20 mg Baclofen (Baclofen 10 Mg Tab) 10 mg PO TID PRN PRN Reason: Muscle Spasm Last Admin: 02/23/22 14:29 Dose: 10 mg Divalproex Sodium (Divalproex 500 Mg Tablet.) 500 mg PO BID [facility] Last Admin: 02/23/22 08:15 Dose: 500 mg Divalproex Sodium (Divalproex 250 Mg Tablet.) 250 mg PO DAILY [facility] Last Admin: 02/23/22 08:15 Dose: 250 mg Sodium Chloride (Saline 0.9%) 1,000 mls @ 50 mls/hr IV .Q20H [facility] Last Admin: 02/23/22 11:36 Dose: Not Given Ceftriaxone Sodium 2 gm/ (Sodium Chloride) 50 mls @ 100 mls/hr IVPB Q24HR [facility]; Protocol Last Admin: 02/23/22 08:05 Dose: Not Given Lacosamide (Lacosamide 50 Mg Tablet) 50 mg PO BID [facility] Last Admin: 02/23/22 16:08 Dose: 50 mg Levothyroxine Sodium (Levothyroxine 75 Mcg Tab) 75 mcg PO DAILY@0630 [facility] Last Admin: 02/23/22 05:34 Dose: 75 mcg Metoprolol Tartrate (Metoprolol Tartrate 50 Mg Tab) 100 mg PO BID [facility] Last Admin: 02/23/22 08:15 Dose: 100 mg Naloxone HCl (Naloxone 0.4 Mg/Ml 1 Ml Vial) 0.2 mg IV Q2M PRN PRN Reason: Opioid Reversal Pantoprazole Sodium (Pantoprazole 40 Mg Tablet) 40 mg PO DAILY [facility] Last Admin: 02/23/22 08:15 Dose: 40 mg Sertraline HCl (Sertraline 100 Mg Tab) 100 mg PO DAILY [facility] Last Admin: 02/23/22 08:15 Dose: 100 mg Sertraline HCl (Sertraline 25 Mg Tab) 25 mg PO DAILY [facility] Last Admin: 02/23/22 08:15 Dose: 25 mg Past medical history to include: Stroke with left-sided weakness, hypertension, hyperlipidemia, osteoarthritis, gout, gallstones, multiple brain aneurysms with causes stents to the brain, depression, schizophrenia. Excessive alcohol use in the past. Social history: *Smoke age of 14, 1 pack a day, quit over 20 years ago. Smoked again for a short time and at [place] stopped when a half years ago. Previously used cocaine. None in the last 17 years. Heavy alcohol use in the past. Family history: Cancer of the throat lung rectum Physical examination: VITAL SIGNS: 98.3, 78, 16, 146-88, 98% room air GENERAL: Laying in bed, comfortable, eating lunch EYES: Pupils equal. Conjunctiva normal. HEENT: External appearance of nose and ears normal, oral cavity grossly normal. Scanty scalp hair NECK: JVD not raised; masses not palpable. HEART: First and second heart sounds are normal; no edema. LUNGS: Respiratory rate normal; decreased breath sounds. ABDOMEN: Soft, nontender, liver spleen not palpable, no masses palpable. PSYCH: Patient able tonsil's questions slowlyl. MUSCULOSKELETAL:No Clubbing/cyanosis;muscles-grossly intact. Contracture of the left arm. Some evidence of OA NEUROLOGICAL: [Cranial nerves grossly intact; no facial asymmetry, contracture of the left arm, power in the lower extremity 4/5 INVESTIGATIONS, reviewed in the clinical context: February 23: White count 8 hemoglobin 9.6 platelets was 2 potassium 4.8 bicarb 15 creatinine 1.12 CRP 0.4 White count 6.8, hemoglobin 13.1, platelets 133 sodium 141 potassium 5 bicarbonate 17 BUN 33 creatinine 1.3 to UA: Negative Urine drug screen: Negative COVID 19/influenza type A/diabetes: Not detected EKG tracing personally reviewed by me-poor baseline. Sinus rhythm. Nonspecific T-wave changes Chest x-ray film personally reviewed by me-possible chronic changes Computed tomography scan brain: Old right watershed infarct. Atrophy with periventricular white matter ischemic type changes. EEG: No obvious seizure activity reported Assessment and plan: -Episode of unconsciousness. This could be related to seizure activity. Risk factors include previous brain surgery.: Possibly vasovagal Neuro Checks. Neurology consultation. EEG findings nonspecific -Chronic medical debility, patient is bedbound -Left hemiparesis from a prior stroke Fall precautions -Anxiety depression not otherwise specified Zoloft -Schizophrenia Abilify 10 mg daily at bedtime -GERD Prilosec 20 mg a day -Hypertension Metoprolol 100 mg twice a day -Hyperlipidemia Lipitor 20 mg daily at bedtime -Anemia of CK D Follow CBC -Sepsis with blood cultures positive for Streptococcus species: Repeat blood cultures pending IV ceftriaxone. Consult ID -Chronic kidney disease stage III likely nephrosclerosis Follow renal function -Hypothyroid Synthroid 35 g per day -Metabolic acidosis from likely CK D Add sodium bicarbonate IV ceftriaxone. Repeat blood cultures from February 21 pending. Other medications to continue. Discussed with patient.
[2022-02-23] MEDS: ATORVASTATIN 20 MG TAB PO SCH (20:04)
[2022-02-23] MEDS: ARIPiprazole 10 MG TAB PO SCH (20:04)
--- NOTE | 2022-02-24 03:15 | P.PN ---
Subjective Progress Note Date: 02/23/22 Patient was seen for a follow-up. Patient offers no complaints. Laying comfortably in the bed. Patient's son-in-law was also present today. Patient is tolerating Vimpat well. Objective - Vital Signs Vital signs: Vital Signs Temp 98.3 F 02/23/22 12:05 Pulse 78 02/23/22 12:05 Resp 16 02/23/22 12:05 BP 146/88 02/23/22 12:05 Pulse Ox 98 02/23/22 12:05 FiO2 Intake & Output 02/22/22 02/23/22 02/23/22 18:59 06:59 18:59 Intake Total 360 120 Balance 360 120 Intake: Oral 360 120 Other: Voiding Method Diaper Diaper Diaper Incontinent Incontinent Incontinent # Voids 5 1 1 # Bowel Movements 1 - Exam Patient's mental status appears intact. Examination is unchanged. - Labs CBC & Chem 7: 02/23/22 09:59 02/23/22 08:21 Labs: Abnormal Lab Results - Last 24 Hours (Table) 02/23/22 02/23/22 Range/Units 08:21 09:59 RBC 3.77 L (3.80-5.40) m/uL Hgb 9.6 L D (11.4-16.0) gm/dL Hct 30.6 L (34.0-46.0) % RDW 17.7 H (11.5-15.5) % Plt Count 102 L (150-450) k/uL Chloride 119 H (98-107) mmol/L Carbon Dioxide 15 L (22-30) mmol/L BUN 21 H (7-17) mg/dL Creatinine 1.12 H (0.52-1.04) mg/dL Microbiology - Last 24 Hours (Table) 02/20/22 13:06 Blood Culture - Preliminary Blood No Growth after 72 hours 02/21/22 12:17 Blood Culture - Preliminary Blood No Growth after 48 hours 02/20/22 13:06 Blood Culture Gram Stain - Final Blood Blood Culture - Final Alpha Hemolytic Streptococcus Assessment and Plan Assessment: * Seizure disorder, came with episode of unresponsiveness. Probable unwitnessed seizure with prolonged postictal state. Her mentation appears back to baseline. No evidence of encephalopathy at this time. * Positive blood culture, gram-positive cocci. 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 Plan: * Patient has history of seizure disorder, came with episode of unresponsiveness. Probable unwitnessed seizure with prolonged postictal state. Her mentation is back to baseline. * Patient is currently on Depakote 750 mg the morning, 500 mg at night. Her Depakote level is therapeutic 59.0. 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 Slightly sharply controlled theta seen intermittently in the left temporal region, which may be related to breach rhythm, although underlying cortical irritability cannot be ruled out. Consider prolonged EEG for further evaluation. No left graphic seizures were recorded. Background disorganization, suggestive of mild encephalopathy. * Patient started on Vimpat. Continue Vimpat 50 mg twice a day for [address] 1 week, increase to 100 mg twice a day. * Patient's blood culture is positive. ID on board. * Recommend follow-up with her neurologist in 1-2 weeks for a follow-up. * Neurologically clear for discharge. We will sign off.
[2022-02-24] MEDS: LEVOTHYROXINE 75 MCG TAB PO SCH (05:21)
[2022-02-24] MEDS: ASPIRIN 81 MG PO SCH (08:11)
[2022-02-24] MEDS: METOPROLOL TARTRATE 50 MG TAB PO SCH (08:11)
[2022-02-24] MEDS: DIVALPROEX 250 MG TABLET.DR PO SCH (08:11)
[2022-02-24] MEDS: PANTOPRAZOLE 40 MG TABLET PO SCH (08:11)
[2022-02-24] MEDS: LACOSAMIDE 50 MG TABLET PO SCH (08:12)
[2022-02-24] MEDS: SERTRALINE 25 MG TAB PO SCH (08:12)
[2022-02-24] MEDS: DIVALPROEX 500 MG TABLET.DR PO SCH (08:12)
[2022-02-24] MEDS: SERTRALINE 100 MG TAB PO SCH (08:12)
[2022-02-24 09:54] LABS: Anisocytosis Slight; Basophils % (A) 0 %; Eosinophils # (A) 0.4 k/uL (0-0.7); Eosinophils % (A) 4 %; HCT 36.9 % (34.0-46.0); HGB 11.5 gm/dL (11.4-16.0); Hypochromasia Marked; Lymphocytes # (A) 3.8 k/uL (1.0-4.8); Lymphocytes % (A) 46 %; MCH 25.6 pg (25.0-35.0); MCHC 31.1 g/dL (31.0-37.0); MCV 82.3 fL (80.0-100.0); Mean Platelet Volume 10.6; Microcytosis Slight; Monocytes # (A) 0.7 k/uL (0-1.0); Monocytes % (A) 8 %; Neutrophils # (A) 3.2 k/uL (1.3-7.7); Neutrophils % (A) 39 %; RBC 4.49 m/uL (3.80-5.40); RDW 17.6 % (11.5-15.5); WBC 8.2 k/uL (3.8-10.6)
[2022-02-24 10:08] LABS: African American GFR (CKD) 53 (>60 ml/min/1.73 sqM); Anion Gap 9 mmol/L; Blood Urea Nitrogen 24 mg/dL (7-17); Calcium 9.1 mg/dL (8.4-10.2); Carbon Dioxide 17 mmol/L (22-30); Chloride 118 mmol/L (98-107); Glucose 81 mg/dL (74-99); Non-African American GFR(CKD) 46 (>60 ml/min/1.73 sqM); Potassium 4.4 mmol/L (3.5-5.1); Sodium 144 mmol/L (137-145)
[2022-02-24 10:58] LABS: Platelet Count 83 k/uL (150-450)
[2022-02-24 10:59] LABS: Poikilocytosis (M) Present; Polychromasia Present; Target Cells Present
[2022-02-24 12:04] VITALS: BP 148/99; PULSE 68; RESP 16; TEMP 97.7
[2022-02-24] MEDS: SODIUM CHLORIDE 0.9% 1,000 ML IV SCH (12:46)
--- NOTE | 2022-02-24 18:33 | P.DS ---
Providers Date of admission: 02/20/22 17:22 Expected date of discharge: 02/24/22 Attending physician: Mohit Harley Consults: 02/20/22 17:22 Consult Physician Routine Consulting Provider: Sylwia Spivey Consult Reason/Comments: Altered mental status, dehydration, history of CVA and rule out TIA Do you want consulting provider notified?: Yes 02/21/22 11:45 Consult Physician Routine Consulting Provider: Raffaele Tristan Consult Reason/Comments: Bacteremia Do you want consulting provider notified?: Already Contacted Primary care physician: Mohit Harley [place] [facility] Course: Chief Complaint: Decreased responsiveness I'm rounding for Dr. Mohit Harley: This is a 61-year-old patient who follows with Dr. Mohit Harley. Chronic stable medical conditions include hyperlipidemia, hypertension, osteoarthritis, gout, history of multiple brain aneurysms. Patient's had a prior stroke with contracture of the left arm and weakness of lower extremity left greater than right. Patient does not ambulate. She had gone to a restaurant with her family. Her lower extremities were hurting. When she went back to the car she passed out. When she did, round and grandchildren were trying to get a back up. She did not remember coming to the hospital. They has a video camera inpatient room for the family to keep an eye on her and did not show any seizure activity. Patient is pitting much bedbound from a previous stroke. Patient is able to tolerate a diet. No headache. No change in vision. February 22: Oral intake fair. Blood cultures growing alpha hemolytic streptococcus. In 2 sets. Repeat blood culture ordered yesterday. On IV ceftriaxone. February 23: Eating well. Comfortable. Pending repeat cultures results. On IV ceftriaxone. Discussed with patient. February 24: EEG was reviewed by neurology. Possibly seizure. Dose of Vimpat increased by 50 mg twice a day. Stable for DC. Discussed with patient. Patient cleared by ID. No further antibiotics Discussion and discharge planning more than 35 minutes Past medical history to include: Stroke with left-sided weakness, hypertension, hyperlipidemia, osteoarthritis, gout, gallstones, multiple brain aneurysms with causes stents to the brain, depression, schizophrenia. Excessive alcohol use in the past. Social history: *Smoke age of 14, 1 pack a day, quit over 20 years ago. Smoked again for a short time and at [place] stopped when a half years ago. Previously used cocaine. None in the last 17 years. Heavy alcohol use in the past. Family history: Cancer of the throat lung rectum Physical examination: VITAL SIGNS: 97.7, a 68, 16, 140/99, 100% room air GENERAL: Laying in bed, comfortable, EYES: Pupils equal. Conjunctiva normal. HEENT: External appearance of nose and ears normal, oral cavity grossly normal. Scanty scalp hair NECK: JVD not raised; masses not palpable. HEART: First and second heart sounds are normal; no edema. LUNGS: Respiratory rate normal; decreased breath sounds. ABDOMEN: Soft, nontender, liver spleen not palpable, no masses palpable. PSYCH: Patient able tonsil's questions slowlyl. MUSCULOSKELETAL:No Clubbing/cyanosis;muscles-grossly intact. Contracture of the left arm. Some evidence of OA NEUROLOGICAL: [Cranial nerves grossly intact; no facial asymmetry, contracture of the left arm, power in the lower extremity 4/5 INVESTIGATIONS, reviewed in the clinical context: February 24: WBC 8.2 hemoglobin 11.5 platelets 73 potassium 4.4 BUN 24 creatinine 1.25 CRP 0.4 UA: Negative Urine drug screen: Negative COVID 19/influenza type A/diabetes: Not detected EKG tracing personally reviewed by me-poor baseline. Sinus rhythm. Nonspecific T-wave changes Chest x-ray film personally reviewed by me-possible chronic changes Computed tomography scan brain: Old right watershed infarct. Atrophy with periventricular white matter ischemic type changes. EEG: Possible cortical irritability. Assessment and plan: -Episode of unconsciousness. This could be related to seizure activity. Risk factors include previous brain surgery.: Patient to follow-up with neurology outpatient. EEG findings possible cortical irritability. Dose of Vimpat increased -Chronic medical debility, patient is bedbound -Left hemiparesis from a prior stroke Fall precautions -Anxiety depression not otherwise specified Zoloft -Schizophrenia Abilify 10 mg daily at bedtime -GERD Prilosec 20 mg a day -Hypertension Metoprolol 100 mg twice a day -Hyperlipidemia Lipitor 20 mg daily at bedtime -Anemia of CK D Follow CBC -Blood cultures possibly contaminant No further antibiotics -Chronic kidney disease stage III likely nephrosclerosis Follow renal function -Hypothyroid Synthroid 35 g per day -Metabolic acidosis from likely CK D sodium bicarbonate Disposition: Home Plan - Discharge Summary Discharge Rx Participant: No New Discharge Prescriptions: New Lacosamide [Vimpat] 50 mg PO BID #60 tab Continue Aspirin EC [Ecotrin Low Dose] 81 mg PO DAILY Sertraline [Zoloft] 100 mg PO DAILY Metoprolol Tartrate 100 mg PO BID Omeprazole [PriLOSEC] 20 mg PO DAILY Atorvastatin [Lipitor] 20 mg PO HS #30 tab Levothyroxine Sodium [Synthroid] 75 mg PO DAILY ARIPiprazole [Abilify] 10 mg PO HS Divalproex [Depakote] 250 mg PO DAILY 90 Days #90 tablet Baclofen 10 mg PO TID PRN PRN Reason: Muscle Spasm Sertraline [Zoloft] 25 mg PO DAILY Divalproex [Depakote] 500 mg PO BID Discharge Medication List Aspirin EC [Ecotrin Low Dose] 81 mg PO DAILY 04/12/16 [History] Metoprolol Tartrate 100 mg PO BID 01/04/17 [History] Sertraline [Zoloft] 100 mg PO DAILY 01/04/17 [History] Omeprazole [PriLOSEC] 20 mg PO DAILY 02/09/20 [History] Atorvastatin [Lipitor] 20 mg PO HS #30 tab 02/13/20 [Rx] ARIPiprazole [Abilify] 10 mg PO HS 04/08/21 [History] Divalproex [Depakote] 250 mg PO DAILY 90 Days #90 tablet 08/02/21 [Rx] Baclofen 10 mg PO TID PRN 02/20/22 [History] Divalproex [Depakote] 500 mg PO BID 02/20/22 [History] Levothyroxine Sodium [Synthroid] 75 mg PO DAILY 02/20/22 [History] Sertraline [Zoloft] 25 mg PO DAILY 02/20/22 [History] Lacosamide [Vimpat] 50 mg PO BID #60 tab 02/24/22 [Rx] Follow up Appointment(s)/Referral(s): neurogy-dr felicity [Other] - 1 Week Mohit Harley MD [Primary Care Provider] - 1-2 days (Patient needs to call to make a follow up appointment) Patient Instructions/Handouts: Lacosamide (By mouth), Dehydration (DC), Nonepileptic Seizures (DC) Discharge Disposition: HOME SELF-CARE
--- NOTE | 2022-03-03 21:42 | P.PN ---
Subjective Progress Note Date: 02/23/22 Principal diagnosis: Positive blood culture Patient is a 61-year-old -[place] female past medical history significant for CVA with left-sided weakness contraction history of UTI presented to the hospital for decreased level of consciousness and concern about possible dehydration patient did have a positive blood culture. On today's evaluation that is 02/23/2022, the patient remains to be afebrile, the patient is currently breathing comfortably, the patient denies any chest pain shortness of breath occasional cough no abdominal pain no diarrhea Objective - Vital Signs Vital signs: Vital Signs Temp 98.3 F 02/23/22 12:05 Pulse 78 02/23/22 12:05 Resp 16 02/23/22 12:05 BP 146/88 02/23/22 12:05 Pulse Ox 98 02/23/22 12:05 FiO2 Intake & Output 02/22/22 02/23/22 02/23/22 18:59 06:59 18:59 Intake Total 360 120 Balance 360 120 Intake: Oral 360 120 Other: Voiding Method Diaper Diaper Diaper Incontinent Incontinent Incontinent # Voids 5 1 1 # Bowel Movements 1 - Exam GENERAL DESCRIPTION: A middle-age female lying in bed in no distress RESPIRATORY SYSTEM: Unlabored breathing , decreased breath sounds at bases HEART: S1 S2 regular rate and rhythm , ABDOMEN: Soft , no tenderness EXTREMITIES: No edema feet - Labs CBC & Chem 7: 02/24/22 09:25 02/24/22 09:25 Labs: Abnormal Lab Results - Last 24 Hours (Table) 02/23/22 02/23/22 Range/Units 08:21 09:59 RBC 3.77 L (3.80-5.40) m/uL Hgb 9.6 L D (11.4-16.0) gm/dL Hct 30.6 L (34.0-46.0) % RDW 17.7 H (11.5-15.5) % Plt Count 102 L (150-450) k/uL Chloride 119 H (98-107) mmol/L Carbon Dioxide 15 L (22-30) mmol/L BUN 21 H (7-17) mg/dL Creatinine 1.12 H (0.52-1.04) mg/dL Microbiology - Last 24 Hours (Table) 02/20/22 13:06 Blood Culture - Preliminary Blood No Growth after 72 hours 02/21/22 12:17 Blood Culture - Preliminary Blood No Growth after 48 hours 02/20/22 13:06 Blood Culture Gram Stain - Final Blood Blood Culture - Final Alpha Hemolytic Streptococcus Assessment and Plan (1) Bacteremia Status: Acute Code(s): R78.81 - BACTEREMIA SNOMED Code(s): 4693125 Plan: 1patient with a positive blood culture with gram-positive cocci Streptococcus species in this patient presented to hospital with decreased level of consciousness however the patient did not have any fever or elevated white count and no obvious focus of infection with initial work-up negative negative UA chest x-ray was negative for pneumonia questionable skin contaminant. 2repeat blood cultures has been negative and inflammation markers are normal 3patient has lost on IV site we will discontinue the Rocephin and monitor the patient closely off antibiotic Time with Patient: Less than 30
--- NOTE | 2022-03-03 21:44 | P.PN ---
Subjective Progress Note Date: 02/24/22 Principal diagnosis: Positive blood culture Patient is a 61-year-old -[place] female past medical history significant for CVA with left-sided weakness contraction history of UTI presented to the hospital for decreased level of consciousness and concern about possible dehydration patient did have a positive blood culture. On today's evaluation that is 02/24/2022, the patient denies any fever or any chills, the patient is currently breathing comfortably, the patient denies any chest pain shortness of breath occasional cough no abdominal pain no diarrhea, patient is feeling better wants to go home Objective - Vital Signs Vital signs: Vital Signs Temp 97.7 F 02/24/22 11:55 Pulse 68 02/24/22 11:55 Resp 16 02/24/22 11:55 BP 148/99 02/24/22 11:55 Pulse Ox 100 02/24/22 11:55 FiO2 Intake & Output 02/23/22 02/24/22 02/24/22 18:59 06:59 18:59 Intake Total 120 700 Balance 120 700 Intake: Oral 120 700 Other: Voiding Method Diaper Diaper Diaper Incontinent Incontinent Incontinent # Voids 1 2 - Exam GENERAL DESCRIPTION: A middle-age female lying in bed in no distress RESPIRATORY SYSTEM: Unlabored breathing , decreased breath sounds at bases HEART: S1 S2 regular rate and rhythm , ABDOMEN: Soft , no tenderness EXTREMITIES: No edema feet - Labs CBC & Chem 7: 02/24/22 09:25 02/24/22 09:25 Labs: Abnormal Lab Results - Last 24 Hours (Table) 02/24/22 02/24/22 Range/Units 09:25 09:25 RDW 17.6 H (11.5-15.5) % Plt Count 83 L (150-450) k/uL Chloride 118 H (98-107) mmol/L Carbon Dioxide 17 L (22-30) mmol/L BUN 24 H (7-17) mg/dL Creatinine 1.25 H (0.52-1.04) mg/dL Microbiology - Last 24 Hours (Table) 02/20/22 13:06 Blood Culture - Preliminary Blood No Growth after 72 hours 02/21/22 12:17 Blood Culture - Preliminary Blood No Growth after 48 hours 02/20/22 13:06 Blood Culture Gram Stain - Final Blood Blood Culture - Final Alpha Hemolytic Streptococcus Assessment and Plan (1) Bacteremia Status: Acute Code(s): R78.81 - BACTEREMIA SNOMED Code(s): 6636140 Plan: 1patient with a positive blood culture with gram-positive bacteremia which has been finalized as alphahemolytic Streptococcus in this patient presented to hospital with decreased level of consciousness however the patient did not have any fever or elevated white count and no obvious focus of infection with initial work-up negative negative UA chest x-ray was negative for pneumonia questionable skin contaminant. 2repeat blood cultures has been negative and inflammation markers are normal 3patient positive blood culture likely representing skin contamination and no antibiotic on discharge Time with Patient: Less than 30
== END 2022-02-24 17:09 | disposition home or self-care (01) | DRG 101 ==
LOC: EEVIPCON 12:16 → EC 12:16 → 5NMEDONC 17:22
PROVIDERS: ADMIT Family Medicine; ATTEND Family Medicine
DX: G40.909 Epilepsy, unspecified, not intractable, without status epilepticus (principal); I69.354 Hemiplegia and hemiparesis following cerebral infarction affecting left non-dominant side; F20.0 Paranoid schizophrenia; F05 Delirium due to known physiological condition; E87.2 Acidosis; I12.9 Hypertensive chronic kidney disease with stage 1 through stage 4 chronic kidney disease, or unspecified chronic kidney disease; F32.A Depression, unspecified; G89.29 Other chronic pain; D63.1 Anemia in chronic kidney disease; I67.1 Cerebral aneurysm, nonruptured; E86.0 Dehydration; E78.5 Hyperlipidemia, unspecified; E03.9 Hypothyroidism, unspecified; K21.9 Gastro-esophageal reflux disease without esophagitis; M10.9 Gout, unspecified; M19.90 Unspecified osteoarthritis, unspecified site; R53.81 Other malaise; Z20.822 Contact with and (suspected) exposure to COVID-19; N18.30 Chronic kidney disease, stage 3 unspecified; Z74.01 Bed confinement status; Z79.82 Long term (current) use of aspirin; Z79.890 Hormone replacement therapy; Z79.899 Other long term (current) drug therapy; Z82.3 Family history of stroke; Z82.49 Family history of ischemic heart disease and other diseases of the circulatory system; Z87.440 Personal history of urinary (tract) infections
CPT/HCPCS: 36415; 70450; 71046; 80048; 80053; 80164; 80306; 81003; 82140; 82550; 83605; 83735; 84145; 84484; 85025; 85610; 85730; 86140; 87040; 87502; 87635; 93005; 94760; 95816; 96360; 96361; 99285

== ENCOUNTER 2022-03-05 11:19 | Emergency (ER) | payer OTHER ==
[2022-03-05 11:36] VITALS: TEMP 98.1
[2022-03-05] MEDS ORDERED: SODIUM CHLORIDE 0.9% 1,000 ML IV ONE (14:59)
--- NOTE | 2022-03-05 15:33 | XR ---
EXAMINATION TYPE: XR chest 2V DATE OF EXAM: 03/05/2022 COMPARISON: 02/20/2022 INDICATION: Altered mental status TECHNIQUE: Frontal and lateral views of the chest are obtained. FINDINGS: The heart size is normal. The pulmonary vasculature is normal. There may be some minimal platelike atelectasis in the periphery of the left lower lung field. Tiny n odule near the anterior fourth rib end at the left lung base may be present . Follow-up chest study is recommended. Some minimal chronic nodularity at the right base may be present. The right apical c hanges appear smaller than comparison. Lungs otherwise appear clear.. IMPRESSION: 1. Intimal atelectasis with possible tiny nodule at the left base. Follow-up is recommended.
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
--- NOTE | 2022-03-05 16:40 | CT ---
EXAMINATION TYPE: CT brain wo con CT DLP: 1143.4 mGycm, Automated exposure control for dose reduction was used. DATE OF EXAM: 03/05/2022 4:30 PM COMPARISON: Prior CT Brain from 02/20/2022 . CLINICAL INDICATION:Female, 61 years old with history of AMS, TECHNIQUE: Brain: Multiple axial CT images of the brain were obtained without IV contrast. Coronal and sagittal reformats reviewed. FINDINGS: Brain: Extra-axial spaces: No abnormal extra-axial fluid collections. Ventricular system: Dilatation in proportion to cerebral atrophy. Ex vacuo dilatation dilatation of t he posterior horn the right lateral ventricle. Cerebral parenchyma: No acute intraparenchymal hemorrhage or mass effect. The vanessa-white junction is well differentiated. Scattered hypoattenuating areas are seen within the white matter. Remote right watershed region infarct with encephalomalacia involving the parietal occipital temporal region. Cer ebral volume loss. Cerebellum: Unremarkable. Mass effect: No evidence of midline shift. Intracranial vasculature: Atherosclerotic calcifications of the intracranial vessels. There is an ane urysm clip with stent redemonstrated with beam hardening artifact from the left suprasellar cistern. Soft tissues: Normal. Calvarium/osseous structures: No depressed skull fracture. Paranasal sinuses and mastoid air cells: Clear Visualized orbits: Orbital contents are intact. IMPRESSION: 1. No acute intracranial process. No significant change from prior exam. 2. Remote right watershed infarct.
[2022-03-05 17:02] LABS: Anisocytosis Slight; Basophils % (A) 0 %; Eosinophils # (A) 0.3 k/uL (0-0.7); Eosinophils % (A) 3 %; HCT 34.8 % (34.0-46.0); HGB 10.7 gm/dL (11.4-16.0); Hypochromasia Moderate; Lymphocytes # (A) 4.6 k/uL (1.0-4.8); Lymphocytes % (A) 52 %; MCH 24.7 pg (25.0-35.0); MCHC 30.8 g/dL (31.0-37.0); MCV 80.3 fL (80.0-100.0); Mean Platelet Volume 8.6; Microcytosis Slight; Monocytes # (A) 0.7 k/uL (0-1.0); Monocytes % (A) 8 %; Neutrophils % (A) 34 %; RBC 4.33 m/uL (3.80-5.40); RDW 17.2 % (11.5-15.5); WBC 8.8 k/uL (3.8-10.6)
[2022-03-05 17:13] LABS: Platelet Count 250 k/uL (150-450)
[2022-03-05 17:19] LABS: INR 0.9 (<1.2); Prothrombin Time 10.2 sec (9.0-12.0)
[2022-03-05 17:22] LABS: Glucose,Whole Blood 67 mg/dL (70-110)
[2022-03-05 17:23] LABS: ALT 26 U/L (4-34); AST 47 U/L (14-36); Acetaminophen <10.0 ug/mL; African American GFR (CKD) 58 (>60 ml/min/1.73 sqM); Alcohol <10 mg/dL; Alkaline Phosphatase 97 U/L (38-126); Anion Gap 13 mmol/L; Blood Urea Nitrogen 19 mg/dL (7-17); Calcium 9.6 mg/dL (8.4-10.2); Carbon Dioxide 20 mmol/L (22-30); Chloride 109 mmol/L (98-107); Glucose 80 mg/dL (74-99); Non-African American GFR(CKD) 50 (>60 ml/min/1.73 sqM); Potassium 4.6 mmol/L (3.5-5.1); Salicylate <1.0 mg/dL; Sodium 142 mmol/L (137-145); Total Bilirubin 0.3 mg/dL (0.2-1.3); Total Protein 7.1 g/dL (6.3-8.2)
[2022-03-05 17:26] LABS: Partial Thromboplastin Time 18.6 sec (22.0-30.0)
[2022-03-05 18:18] LABS: Appearance,Urine Cloudy (Clear); Bilirubin,Urine Negative (Negative); Blood,Urine Negative (Negative); Color,Urine Yellow; Glucose,Urine (UA) Negative (Negative); Hyaline Casts,Urine 1 /lpf (0-2); Ketones,Urine Negative (Negative); Leukocyte Esterase,Urine Negative (Negative); Mucus,Urine Rare /hpf; Nitrite,Urine Negative (Negative); Protein,Urine Negative (Negative); RBC,Urine 3 /hpf (0-5); Specific Gravity,Urine 1.014 (1.001-1.035); Squamous Epithelial Cell,Urine 13 /hpf (0-4); Urobilinogen,Urine <2.0 mg/dL (<2.0); WBC,Urine 2 /hpf (0-5)
[2022-03-05 18:27] LABS: Amphetamine Screen,Urine Not Detected (NotDetected); Barbiturate Screen,Urine Not Detected (NotDetected); Benzodiazepines Screen,Urine Not Detected (NotDetected); Cocaine Screen,Urine Not Detected (NotDetected); Methadone Screen, Urine Not Detected (NotDetected); Opiate Screen,Urine Not Detected (NotDetected); Oxycodone Screen, Urine Not Detected (NotDetected); Phencyclidine Screen,Urine Not Detected (NotDetected); Tricyclic Antidepressant,Urine Not Detected (NotDetected); Urn Cannabinoid Scrn Not Detected (NotDetected)
[2022-03-05 18:50] LABS: Glucose,Whole Blood 94 mg/dL (70-110)
[2022-03-06 00:45] VITALS: BP 111/88; PULSE 70; RESP 19
[2022-03-06] MEDS ORDERED: IBUPROFEN 600 MG TAB PO STA (00:45)
== END 2022-03-06 01:09 | disposition home or self-care (01) ==
LOC: EC 11:19
DX: F29 Unspecified psychosis not due to a substance or known physiological condition (principal); E78.5 Hyperlipidemia, unspecified; I10 Essential (primary) hypertension; M19.90 Unspecified osteoarthritis, unspecified site; F41.9 Anxiety disorder, unspecified; F32.A Depression, unspecified; Z87.891 Personal history of nicotine dependence; Z79.82 Long term (current) use of aspirin; Z79.899 Other long term (current) drug therapy
CPT/HCPCS: 99285 ×2; 36415; 93005; 80053; 85025; 85610; 85730; 81001; 80306; 80143; 80179; 71046; 70450; G0480; 80320

== ENCOUNTER → 2022-04-08 | Outpatient (CLI) | payer OTHER ==
[2022-04-08 18:29] LABS: Anisocytosis Slight; Basophils # (A) 0.1 k/uL (0-0.2); Basophils % (A) 1 %; Eosinophils # (A) 0.2 k/uL (0-0.7); Eosinophils % (A) 3 %; HCT 36.2 % (34.0-46.0); HGB 11.3 gm/dL (11.4-16.0); Hypochromasia Slight; Lymphocytes # (A) 3.3 k/uL (1.0-4.8); Lymphocytes % (A) 44 %; MCH 24.5 pg (25.0-35.0); MCHC 31.1 g/dL (31.0-37.0); MCV 78.8 fL (80.0-100.0); Mean Platelet Volume 9.8; Monocytes # (A) 0.9 k/uL (0-1.0); Monocytes % (A) 13 %; Neutrophils # (A) 2.8 k/uL (1.3-7.7); Neutrophils % (A) 38 %; Platelet Count 174 k/uL (150-450); RDW 16.1 % (11.5-15.5); WBC 7.4 k/uL (3.8-10.6)
--- NOTE | 2022-04-08 20:29 | XR ---
EXAMINATION TYPE: XR chest 2V DATE OF EXAM: 04/08/2022 4:27 PM COMPARISON: Chest radiographs from 03/05/2022 TECHNIQUE: XR chest 2V Frontal and lateral views of the chest. CLINICAL INDICATION:Female, 61 years old with history of M792,R252; FINDINGS: Lungs/Pleura: There is no evidence of pleural effusion, focal consolidation, or pneumothorax. Pulmonary vascularity: Unremarkable. Heart/mediastinum: Cardiomediastinal silhouette is unremarkable. Musculoskeletal: No acute osseous pathology. Increased kyphosis of the thoracic spine. IMPRESSION: No acute cardiopulmonary disease/process.
== END | disposition home or self-care (01) ==
LOC: LABWHC1 15:00
PROVIDERS: ATTEND Neurological Surgery
DX: M79.2 Neuralgia and neuritis, unspecified (principal); R25.2 Cramp and spasm
CPT/HCPCS: 71046; 85025

== ENCOUNTER → 2022-04-14 | Outpatient (CLI) | payer OTHER ==
[2022-04-14 15:24] LABS: INR 0.9 (<1.2); Prothrombin Time 10.3 sec (9.0-12.0)
[2022-04-14 15:42] LABS: Partial Thromboplastin Time 20.2 sec (22.0-30.0)
[2022-04-14 18:09] LABS: HCT 32.2 % (37.2-46.3); HGB 10.3 g/dL (12.0-15.0); MCH 23.9 pg (27.0-32.0); MCV 74.7 fL (80.0-97.0); Mean Platelet Volume 11.7 fL (9.5-12.2); NRBC Per 100 WBC 0 /100 WBCS (0.0-0.0); Platelet Count 226 X 10*3/uL (140-440); RBC 4.31 X 10*6/uL (4.10-5.20); RDW 15.9 % (11.5-14.5); WBC 10.82 X 10*3/uL (4.50-10.00)
[2022-04-14 19:08] LABS: Valproic Acid (Depakene) 66.2 ug/mL (50.0-100.0)
[2022-04-14 19:12] LABS: African American GFR (CKD) 57.4 (60.0-200.0); Albumin 3.7 g/dL (3.8-4.9); Albumin/Globulin Ratio 1.2 (1.60-3.17); Anion Gap 13.9 mmol/L (10.00-18.00); BUN/Creat Ratio 25.81 Ratio (12.00-20.00); Blood Urea Nitrogen 30.2 mg/dL (9.0-27.0); Calcium 9.8 mg/dL (8.7-10.3); Carbon Dioxide 18.4 mmol/L (20.0-27.5); Globulin 3.1 g/dL (1.6-3.3); Non-African American GFR(CKD) 49.6 (60.0-200.0); Potassium 4.7 mmol/L (3.5-5.5); Total Bilirubin 0.3 mg/dL (0.30-1.20); Total Protein 6.8 g/dL (6.2-8.2)
[2022-04-14 20:25] LABS: Acanthocytes 2+; Anisocytosis (M) 2+; Basophils # (M) 0 X 10*3/uL (0.00-0.10); Elliptocytes 2+; Eosinophils # (M) 0.43 X 10*3/uL (0.04-0.35); Lymphocytes # (M) 4.22 X 10*3/uL (0.90-5.00); Monocytes # (M) 1.19 X 10*3/uL (0.20-1.00); Neutrophils # (M) 4.98 X 10*3/uL (2.00-8.90); Neutrophils % (M) 46 %
== END | disposition home or self-care (01) ==
LOC: LABWHC1 13:14
PROVIDERS: ATTEND Family Medicine
DX: G40.209 Localization-related (focal) (partial) symptomatic epilepsy and epileptic syndromes with complex partial seizures, not intractable, without status epilepticus (principal); R25.2 Cramp and spasm; M79.2 Neuralgia and neuritis, unspecified
CPT/HCPCS: 36415; 80053; 80164; 80235; 83036; 85025; 85610; 85730

== ENCOUNTER 2022-04-24 13:28 | Inpatient (IN) | payer OTHER ==
[2022-04-24] MEDS ORDERED: NALOXONE 0.4 MG/ML 1 ML VIAL IVP STA (13:57)
[2022-04-24] MEDS ORDERED: SODIUM CHLORIDE 0.9% 1,000 ML IV STA ×2 (13:58)
--- NOTE | 2022-04-24 14:02 | ED ---
General Adult HPI - General Chief complaint: Altered Mental Status Stated complaint: AMS Time Seen by Provider: 04/24/22 13:31 Source: EMS Mode of arrival: EMS - History of Present Illness Initial comments: Dictation was produced using [employer] dictation software. please excuse any grammatical, word or spelling errors. Chief Complaint: 62-year-old female presents to the emergency room for altered mental status. History of Present Illness: 62-year-old female presents emergency department for altered mental status. Patient has past medical history of stroke, dyslipidemia and hypertension. Chin also on antiepileptic medications for concerns of history of seizure. She is also on psychiatric medications. Patient is a poor historian. History obtained from nurse received report from EMS. It appears that over the last several days patient has been going in and out of sleepiness. She seems to be more somnolent more than usual. Unable to obtain review of systems secondary to patient's mental status. PHYSICAL EXAM: General Impression: Alert and oriented, not in acute distress, sleepy, arousable HEENT: Normocephalic atraumatic, extra-ocular movements intact, pupils equal and reactive to light bilaterally, mucous membranes moist. Cardiovascular: Heart regular rate and rhythm Chest: Able to complete full sentences, no retractions, no tachypnea Abdomen: abdomen soft, non-tender, non-distended, no organomegaly Musculoskeletal: Pulses present and equal in all extremities, no peripheral edema Motor: no focal deficits noted Neurological: CN II-XII grossly intact, no focal motor or sensory deficits noted, contracture of the left upper extremity Skin: Intact with no visualized rashes Psych: Normal affect and mood ED course: 62-year-old female with multiple comorbidities presents to the emergency department for altered mental status. Ultimately mental status was described as hypersomnolence. Vital signs upon arrival shows temperature of 99.9, worse vital signs within acceptable limits. Patient in no significant distress at this time. Patient's were reviewed on electronic medical record. More history was obtained from family member at the bedside did report that they believe that she is confused because she may have had a seizure in her sleep. Family reports that she normally has seizures in her sleep. There is no history of any sort of obvious tonic-clonic activity. She reevaluated at 5:20 PM found to be stable medical condition. She did appear to be in no acute distress. She is interactive though still somnolent. Unclear when patient's last known normal was. Laboratory evaluation obtained. CBC unremarkable. Metabolic panel is negative. No osmolar gap. Urinalysis negative. Tox labs negative. Computed tomography scan of the brain and chest x-ray are unremarkable. Patient be admitted with consultation to neurology. Chart review shows that evaluation couple months ago. Note from February 23 by neurology shows the patient was admitted for similar issue. At that time there was concerns for unwitnessed seizures. She was started on no seizure medications. - Related Data Home Medications Medication Instructions Recorded Confirmed Aspirin EC [Ecotrin Low Dose] 81 mg PO DAILY 04/12/16 03/05/22 Metoprolol Tartrate 100 mg PO BID 01/04/17 03/05/22 Sertraline [Zoloft] 100 mg PO DAILY 01/04/17 03/05/22 Omeprazole [PriLOSEC] 20 mg PO DAILY 02/09/20 03/05/22 ARIPiprazole [Abilify] 10 mg PO HS 04/08/21 03/05/22 Baclofen 10 mg PO TID PRN 02/20/22 03/05/22 Divalproex [Depakote] 500 mg PO BID 02/20/22 03/05/22 Levothyroxine Sodium [Synthroid] 75 mg PO DAILY 02/20/22 03/05/22 Sertraline [Zoloft] 25 mg PO DAILY 02/20/22 03/05/22 Previous Rx's Medication Instructions Recorded Atorvastatin [Lipitor] 20 mg PO HS #30 tab 02/13/20 Divalproex [Depakote] 250 mg PO DAILY 90 Days #90 tablet 08/02/21 Lacosamide [Vimpat] 50 mg PO BID #60 tab 02/24/22 Allergies Allergy/AdvReac Type Severity Reaction Status Date / Time No Known Allergies Allergy Verified 03/05/22 11:36 Review of Systems ROS Statement: Those systems with pertinent positive or pertinent negative responses have been documented in the HPI. ROS Other: All systems not noted in ROS Statement are negative. Past Medical History Past Medical History: CVA/TIA, Hyperlipidemia, Hypertension, Osteoarthritis (OA) Additional Past Medical History / Comment(s): ANEMIA, CVA WITH L ARM WEAKNESS AND L LEG WEAKNESS, hx. gout, PANCREATITIS, pseudoseizures, UTI, gallstones, tremors, hx multiple brain aneursyms History of Any Multi-Drug Resistant Organisms: ESBL Date of last positivie culture/infection: 03/18/18 ESBL E.coli MDRO Source:: Urine Past Surgical History: Section, Cholecystectomy, Orthopedic Surgery Additional Past Surgical History / Comment(s): hx aneurysms- COILS AND STENTS TO BRAIN, repair tendons r/t gout BILATERAL FEET. Past Anesthesia/Blood Transfusion Reactions: No Reported Reaction Additional Past Anesthesia/Blood Transfusion Reaction / Comment(s): PT HAS HAD BLOOD TRANSFUSIONS FOR ANEMIA-NO REACTION. Past Psychological History: Anxiety, Depression, Schizophrenia Smoking Status: Former smoker, Unknown if ever smoked Past Alcohol Use History: Abuse, Heavy Past Drug Use History: Cocaine - Past Family History Sister(s) Family Medical History: Myocardial Infarction ([place]) Father Family Medical History: Cancer Additional Family Medical History / Comment(s): throat, lung, and rectal cancer Mother Family Medical History: Myocardial Infarction ([place]) Additional Family Medical History / Comment(s): stroke Course Vital Signs 04/24/22 13:39 Temperature 99.9 F H Pulse Rate 79 Respiratory 18 Rate Blood Pressure 173/108 O2 Sat by Pulse 96 Oximetry Medical Decision Making - Lab Data Result diagrams: 04/24/22 14:22 04/24/22 14:22 Lab Results 04/24/22 04/24/22 04/24/22 Range/Units 14:22 14:22 14:22 WBC 7.5 (3.8-10.6) k/uL RBC 4.40 (3.80-5.40) m/uL Hgb 10.5 L (11.4-16.0) gm/dL Hct 33.9 L (34.0-46.0) % MCV 77.1 L (80.0-100.0) fL MCH 23.9 L (25.0-35.0) pg MCHC 31.0 (31.0-37.0) g/dL RDW 15.9 H (11.5-15.5) % Plt Count 282 (150-450) k/uL MPV 7.6 Neutrophils % 49 % Lymphocytes % 35 % Monocytes % 9 % Eosinophils % 2 % Basophils % 0 % Neutrophils # 3.7 (1.3-7.7) k/uL Lymphocytes # 2.6 (1.0-4.8) k/uL Monocytes # 0.7 (0-1.0) k/uL Eosinophils # 0.2 (0-0.7) k/uL Basophils # 0.0 (0-0.2) k/uL Hypochromasia Moderate Microcytosis Slight Sodium 141 (137-145) mmol/L Potassium 4.7 (3.5-5.1) mmol/L Chloride 107 (98-107) mmol/L Carbon Dioxide 20 L (22-30) mmol/L Anion Gap 14 mmol/L BUN 40 H (7-17) mg/dL Creatinine 1.01 (0.52-1.04) mg/dL Est GFR (CKD-EPI)AfAm 68 (>60 ml/min/1.73 sqM) Est GFR (CKD-EPI)NonAf 59 (>60 ml/min/1.73 sqM) Glucose 99 (74-99) mg/dL Osmolality 308 H (280-301) mosm/kg Calcium 9.8 (8.4-10.2) mg/dL Magnesium 1.8 (1.6-2.3) mg/dL Total Bilirubin 0.4 (0.2-1.3) mg/dL AST 46 H (14-36) U/L ALT 12 (4-34) U/L Alkaline Phosphatase 78 (38-126) U/L Creatine Kinase 192 H (30-135) U/L Total Protein 7.0 (6.3-8.2) g/dL Albumin 3.5 (3.5-5.0) g/dL Urine Color Yellow Urine Appearance Clear (Clear) Urine pH 6.0 (5.0-8.0) Ur Specific [place] 1.015 (1.001-1.035) Urine Protein Negative (Negative) Urine Glucose (UA) Negative (Negative) Urine Ketones Negative (Negative) Urine Blood Negative (Negative) Urine Nitrite Negative (Negative) Urine Bilirubin Negative (Negative) Urine Urobilinogen <2.0 (<2.0) mg/dL Ur Leukocyte Esterase Large H (Negative) Urine RBC 9 H (0-5) /hpf Urine WBC 5 (0-5) /hpf Ur Squamous Epith Cells 4 (0-4) /hpf Urine Bacteria Rare H (None) /hpf Urine Mucus Rare H (None) /hpf Salicylates <1.0 mg/dL Serum Alcohol <10 mg/dL Disposition Clinical Impression: Encephalopathy Disposition: ADMITTED IP TO THIS HOSP Condition: Stable Referrals: None,Stated [REFERRING] - 1-2 days Decision Time: 17:22
[2022-04-24 14:45] LABS: Basophils % (A) 0 %; Eosinophils # (A) 0.2 k/uL (0-0.7); Eosinophils % (A) 2 %; HCT 33.9 % (34.0-46.0); HGB 10.5 gm/dL (11.4-16.0); Hypochromasia Moderate; Lymphocytes # (A) 2.6 k/uL (1.0-4.8); Lymphocytes % (A) 35 %; MCH 23.9 pg (25.0-35.0); MCV 77.1 fL (80.0-100.0); Mean Platelet Volume 7.6; Microcytosis Slight; Monocytes # (A) 0.7 k/uL (0-1.0); Monocytes % (A) 9 %; Neutrophils # (A) 3.7 k/uL (1.3-7.7); Neutrophils % (A) 49 %; Platelet Count 282 k/uL (150-450); RDW 15.9 % (11.5-15.5); WBC 7.5 k/uL (3.8-10.6)
[2022-04-24 15:00] LABS: ALT 12 U/L (4-34); AST 46 U/L (14-36); African American GFR (CKD) 68 (>60 ml/min/1.73 sqM); Albumin 3.5 g/dL (3.5-5.0); Alcohol <10 mg/dL; Alkaline Phosphatase 78 U/L (38-126); Anion Gap 14 mmol/L; Blood Urea Nitrogen 40 mg/dL (7-17); Calcium 9.8 mg/dL (8.4-10.2); Carbon Dioxide 20 mmol/L (22-30); Chloride 107 mmol/L (98-107); Glucose 99 mg/dL (74-99); Magnesium 1.8 mg/dL (1.6-2.3); Non-African American GFR(CKD) 59 (>60 ml/min/1.73 sqM); Potassium 4.7 mmol/L (3.5-5.1); Salicylate <1.0 mg/dL; Sodium 141 mmol/L (137-145); Total Bilirubin 0.4 mg/dL (0.2-1.3)
[2022-04-24 15:16] LABS: Creatine Kinase 192 U/L (30-135)
--- NOTE | 2022-04-24 15:19 | XR ---
EXAMINATION TYPE: XR chest 1V portable DATE OF EXAM: 04/24/2022 COMPARISON: 04/08/2022 INDICATION: Altered mental status TECHNIQUE: Single frontal view of the chest is obtained. FINDINGS: The heart size is normal. The pulmonary vasculature is normal. Some mild diffuse increased lung markings may be present. Consider atypical pneumonia. IMPRESSION: 1. Mild nonspecific increased lung markings. Correlate for atypical pneumonia.
--- NOTE | 2022-04-24 15:22 | CT ---
EXAMINATION TYPE: CT brain wo con DATE OF EXAM: 04/24/2022 COMPARISON: 03/05/2022 HISTORY: AMS CT DLP: 1173.[address] of the brain was performed. The ventricles, basal cisterns and sulci overlying the cerebral convexities demonstrate mild enlargem ent. Again noted is a large area of remote right MCA territory infarct. There is no evidence for intracranial hemorrhage or sulcal effacement. There is decreased attenuation about the periventricular white matter and deep white matter of both c erebral hemispheres, compatible with chronic small vessel ischemia. Differential diagnosis does inclu de demyelination. No mass effects are seen.No midline shift. Osseous calvarium is intact. If symptoms persist consider MRI. IMPRESSION: 1. Age related atrophic and chronic small vessel ischemic change without acute intracranial process s een at this time.
[2022-04-24 16:12] LABS: Appearance,Urine Clear (Clear); Bacteria,Urine Rare /hpf; Bilirubin,Urine Negative (Negative); Blood,Urine Negative (Negative); Color,Urine Yellow; Glucose,Urine (UA) Negative (Negative); Ketones,Urine Negative (Negative); Leukocyte Esterase,Urine Large (Negative); Mucus,Urine Rare /hpf; Nitrite,Urine Negative (Negative); Protein,Urine Negative (Negative); RBC,Urine 9 /hpf (0-5); Specific Gravity,Urine 1.015 (1.001-1.035); Squamous Epithelial Cell,Urine 4 /hpf (0-4); Urobilinogen,Urine <2.0 mg/dL (<2.0); WBC,Urine 5 /hpf (0-5)
[2022-04-24] MEDS ORDERED: NALOXONE 0.4 MG/ML 1 ML VIAL IV PRN (17:22)
[2022-04-24 17:52] LABS: Lactic Acid, Venous 1.1 mmol/L (0.7-2.0)
[2022-04-24 18:01] LABS: INR 0.9 (<1.2); Partial Thromboplastin Time 22.3 sec (22.0-30.0); Prothrombin Time 10.3 sec (9.0-12.0)
[2022-04-24] MEDS: SODIUM CHLORIDE 0.9% 1,000 ML IV SCH (18:13)
[2022-04-24] MEDS ORDERED: HYDROcodone/APAP 5-325MG 1 EACH TAB PO PRN (19:35)
[2022-04-24] MEDS ORDERED: MORPHINE SULFATE 2 MG/ML SYRINGE IVP STA (20:40)
--- NOTE | 2022-04-24 22:23 | CT ---
EXAMINATION TYPE: CT chest wo con DATE OF EXAM: 04/24/2022 COMPARISON: None HISTORY: pleural effusion CT DLP: 232.7 mGycm Automated exposure control for dose reduction was used. Images obtained from the thoracic inlet to the diaphragm with no contrast. There is extensive coarse interstitial infiltrate in the lung campoverde. There is pleural thickening at the posterior lung campoverde. Heart size is normal. There is coronary artery calcification. There are no hilar masses. No mediastinal adenopathy. There is a thoracic levoscoliotic curvature. The upper abdo luis alberto soft tissues are intact. No thoracic compression fracture. IMPRESSION: Bilateral predominantly interstitial pulmonary infiltrates. No suspicious pulmonary mass. This is con sistent with multifocal pneumonia. Minimal pleural thickening. No significant pleural fluid.
[2022-04-25] MEDS: SODIUM CHLORIDE 0.9% 1,000 ML IV SCH (02:53)
[2022-04-25] MEDS: DIVALPROEX 250 MG TABLET.DR PO SCH ×2 (03:00→20:55)
[2022-04-25] MEDS: LACOSAMIDE 50 MG TABLET PO SCH ×3 (03:00→20:55)
[2022-04-25] MEDS: ATORVASTATIN 20 MG TAB PO SCH ×2 (03:00→20:49)
[2022-04-25] MEDS: DIVALPROEX 500 MG TABLET.DR PO SCH ×3 (03:00→20:56)
[2022-04-25] MEDS: risperiDONE 1 MG TAB PO SCH ×2 (03:01→20:55)
[2022-04-25] MEDS: METOPROLOL TARTRATE 50 MG TAB PO SCH ×3 (03:01→20:51)
[2022-04-25] MEDS: LEVOTHYROXINE 75 MCG TAB PO SCH (06:37)
[2022-04-25] MEDS: SERTRALINE 100 MG TAB PO SCH (09:24)
[2022-04-25] MEDS: ASPIRIN 81 MG PO SCH (09:25)
[2022-04-25] MEDS: SERTRALINE 25 MG TAB PO SCH (09:25)
--- NOTE | 2022-04-25 11:18 | P.CNNES ---
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 The history was obtained from the ED note. Etiology over the past several days the patient has been going in and out of sleepiness somnolent more than usual. She is known to our neurology service. Patient is on antiepileptic drug and she is on Vimpat 50 motor exam 1 tablet twice a day and Depakote 500 in the morning and 750 at night. Briefly the toes and of January [address] Contreras recommended to go up on Vimpat 100 mg 1 tablet twice a day. Patient is not aware of that. Patient stated that she's feeling justly better today compared to initial presentation. Patient stated she is bed bound. Patient is known to our neurology service and was last seen towards the end of January 2022 was felt she had a seizure. Dr. Contreras at added Vimpat and recomme nded the to go up to Vimpat 100 mg daily after a week of Vimpat of 50 mg daily. To continue the same dose of Depakote 750 in the morning and 500 at night. Please refer to his note for further details. Some of the workup during this hospital visit consisted of: Presented with minimal temperature that was elevated just borderline was 99.9 Fahrenheit but otherwise was normal White blood cell is within normal limits Ammonia level is less than 9 Sodium creatinine ALT is within normal limits. Urinalysis is possible suggestive of urinary tract infection with leukocyte esterase was large urine white blood cell is 5 bacteria was rare Gomez virus PCR was not detected. CT of the head is reported as age-related atrophy and chronic small vessel ischemic change without acute intracranial process seen at this time. Interbody reported it is reported that the patient has large area of remote right MCA infarct. I personally reviewed the CT and agree with the report Review of Systems Review of system: The 12 point system was reviewed and apparent positive and negative per HPI. 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 gout, PANCREATITIS, pseudoseizures, UTI, gallstones, tremors, hx multiple brain aneursyms History of Any Multi-Drug Resistant Organisms: None Reported Date of last positivie culture/infection: 03/18/18 ESBL E.coli MDRO Source:: Urine Past Surgical History: Section, Cholecystectomy, Orthopedic Surgery Additional Past Surgical History / Comment(s): hx aneurysms- COILS AND STENTS TO BRAIN, repair tendons r/t gout BILATERAL FEET; Pain pump inserted on 04/21/22 Past Anesthesia/Blood Transfusion Reactions: No Reported Reaction Additional Past Anesthesia/Blood Transfusion Reaction / Comment(s): PT HAS HAD BLOOD TRANSFUSIONS FOR ANEMIA-NO REACTION. Past Psychological History: Anxiety, Depression, Schizophrenia Additional Psychological History / Comment(s): paranoid schizophrenia Smoking Status: Former smoker Additional Past Alcohol Use History / Comment(s): Stopped smoking 2012 or 2013 - Past Family History Sister(s) Family Medical History: Myocardial Infarction ([place]) Father Family Medical History: Cancer Additional Family Medical History / Comment(s): throat, lung, and rectal cancer Mother Family Medical History: Myocardial Infarction ([place]) Additional Family Medical History / Comment(s): stroke Medications and Allergies Home Medications Medication Instructions Recorded Confirmed Type Aspirin EC [Ecotrin Low Dose] 81 mg PO DAILY 04/12/16 04/24/22 History Metoprolol Tartrate 100 mg PO BID 01/04/17 04/24/22 History Sertraline [Zoloft] 100 mg PO DAILY 01/04/17 04/24/22 History Omeprazole [PriLOSEC] 20 mg PO DAILY 02/09/20 04/24/22 History Atorvastatin [Lipitor] 20 mg PO HS #30 tab 02/13/20 04/24/22 Rx Baclofen 10 mg PO BID PRN 02/20/22 04/24/22 History Divalproex [Depakote] 500 mg PO BID 02/20/22 04/24/22 History Levothyroxine Sodium [Synthroid] 75 mcg PO DAILY 02/20/22 04/24/22 History Sertraline [Zoloft] 25 mg PO DAILY 02/20/22 04/24/22 History Lacosamide [Vimpat] 50 mg PO BID #60 tab 02/24/22 04/24/22 Rx Divalproex [Depakote] 250 mg PO HS 04/24/22 04/24/22 History HYDROcodone/APAP 5-325MG [[employer] 1 tab PO Q4H PRN 04/24/22 04/24/22 History 5-325] risperiDONE [RisperDAL] 1 mg PO HS 04/24/22 04/24/22 History Allergies Allergy/AdvReac Type Severity Reaction Status Date / Time No Known Allergies Allergy Verified 04/24/22 17:37 Physical Examination - Vital Signs Vital Signs: Vital Signs Temp Pulse Pulse Resp BP BP Pulse Ox 04/25/22 08:00 99.4 F 105 H 13 145/88 98 04/25/22 01:53 98.5 F 109 H 17 158/84 95 04/24/22 20:30 98.9 F 75 16 147/71 98 04/24/22 18:37 71 18 154/89 98 04/24/22 13:39 99.9 F H 79 18 173/108 96 Intake and Output 04/24/22 04/25/22 04/25/22 22:59 06:59 14:59 Intake Total 900 Output Total 200 Balance -200 900 Intake: Oral 900 Output: Urine 200 Other: # Voids 1 Weight 49.895 kg GENERAL: The patient is lying in bed and is not in acute distress. CHEST: The heart rate is regular rate rhythm. No murmurs to auscultation. LUNG: Clear to auscultation bilaterally no wheezing noted throughout. Not labored breathing. ABDOMEN/GI: Bowel sounds present in all 4 quadrants. No tenderness to palpation throughout. NEUROLOGICAL: Higher mental function: The patient is awake, alert, oriented to self, place. She stated today is the first day of April. Patient is following commands. No aphasia and no neglect. Cranial nerves: The pupils are round, equal and reactive to light and accommodation. Visual campoverde are full to confrontation throughout. Extraocular movement is intact no nystagmus is noted. Facial sensation is normal to touch throughout. The facial strength is normal throughout. Hearing is normal bilaterally to hand rub. Tongue is midline and moved [id number] without any difficulty. No dysarthria is noted. Shoulder shrug is normal bilaterally. Motor: The strength is right upper is 5/5. Has spasticity over the left upper. Has pain in lowers. Cerebellum: Normal finger to nose over the right. Has some tremor over the rig ht upper that is nonrhythmic. Sensation: Sensation is normal to touch throughout. Reflexes (right/left): brisk over the left. Plantars is upgoing over the left. Mute over the right. Results - Laboratory Findings CBC and BMP: 04/24/22 14:22 04/24/22 14:22 Abnormal Lab Findings: Abnormal Labs 04/24/22 04/24/22 04/24/22 14:22 14:22 14:22 Hgb 10.5 L Hct 33.9 L MCV 77.1 L MCH 23.9 L RDW 15.9 H Carbon Dioxide 20 L BUN 40 H Osmolality 308 H AST 46 H Creatine Kinase 192 H Procalcitonin Ur Leukocyte Esterase Large H Urine RBC 9 H Urine Bacteria Rare H Urine Mucus Rare H 04/24/22 14:22 Hgb Hct MCV MCH RDW Carbon Dioxide BUN Osmolality AST Creatine Kinase Procalcitonin 0.45 H Ur Leukocyte Esterase Urine RBC Urine Bacteria Urine Mucus Assessment and Plan Assessment: Patient's episode of confusion and sleepiness possibly due to breakthrough seizure especially with history of seizures. The seizure could be possibly provoked due to possible underlying ureter tract infection History of epilepsy Possible acute UTI History right MCA stroke with chronic left hemiplegia Chronic brain aneurysm with post surgical coiling over the left MCA Chronic anemia Hypertension Plan: I increased her impact from 50 mg 1 tablet twice a day to 100 mg twice a day as per Dr. ji levin recommendation end of January 2022. Continue same dose of Depakote 500 in the morning and 750 daily at bedtime. Routine EEG is not needed since the patient has known history of seizures and that currently she feels back to baseline. I ordered Depakote level as well as local some mild level Placed on seizure precautions and seizure pad Will defer the rest of medical management to the primary team. Upon discharge, patient needs to follow-up with neurologist within 1-2 weeks. Plan is discussed with patient and her nurse. Thank you for the consultation. Tino Gray M.D. Neuro-Hospitalist Time with Patient: Greater than 30
[2022-04-25] MEDS ORDERED: AZITHROMYCIN 500 MG in SODIUM CHLORIDE 0.9% 250 ML IVPB STA (15:41)
[2022-04-25] MEDS: AMPICILLIN-SULBACTAM 1.5 GM in SODIUM CHLORIDE 0.9% 50 ML IVPB SCH (18:20)
[2022-04-25] MEDS: MORPHINE SULFATE 2 MG/ML SYRINGE IVP PRN (20:23)
[2022-04-26] MEDS: MORPHINE SULFATE 2 MG/ML SYRINGE IVP PRN ×3 (00:52→21:44)
[2022-04-26] MEDS: AMPICILLIN-SULBACTAM 1.5 GM in SODIUM CHLORIDE 0.9% 50 ML IVPB SCH ×4 (00:52→23:52)
--- NOTE | 2022-04-26 02:41 | HP ---
HISTORY AND PHYSICAL HISTORY OF PRESENT ILLNESS: She was seen on 04/24/2022 in the emergency room by myself. She is a 62-year-old female who came in for altered mental status. Family member says she has had seizures, it is possibly seizure, postictal weakness, and altered mental status that she has had before. She has been compliant on her antiepileptic medicines and psych medicines. She has not changed any medications recently except for a pain pump that was put in her lower back 2 days ago, which has not been used yet, possibly some alterations with some anesthesia also with apparently local anesthesia. She is admitted for altered mental status, possibly postictal from strokes. PHYSICAL EXAMINATION: GENERAL: She is sleepy, but arousable and gives appropriate answers. HEENT: Normocephalic, atraumatic. CARDIOVASCULAR: S1, S2. ABDOMEN: Soft, nontender. MUSCULOSKELETAL: Range of motion full. NEUROLOGIC: Cranial nerves intact. SKIN: Warm and dry. HOME MEDICINES: Include, 1. Aspirin 81 mg daily. 2. Metoprolol tartrate 100 b.i.d. 3. Zoloft 100 daily. 4. Omeprazole 20 daily. 5. Abilify 10 daily. 6. Baclofen 10 t.i.d. 7. Depakote 500 b.i.d. 8. Synthroid 75 mcg daily. 9. Zoloft 25 daily. ALLERGIES: See list. REVIEW OF SYSTEMS: A 14-point review of systems otherwise is negative. ASSESSMENT: She is a 62-year-old white female, altered mental status, hypersomnolence, possible postictal. She has a history of multiple seizures. She is on multiple seizure medications. We will get Neurology to evaluate her for altered mental status. Check EEG. Possible seizure disorder adjustment. PROGNOSIS: Extremely guarded. MMODL / IJN: [id number] /
[2022-04-26] MEDS: LEVOTHYROXINE 75 MCG TAB PO SCH (05:41)
--- NOTE | 2022-04-26 06:50 | PN ---
PROGRESS NOTE SUBJECTIVE: A 63-year-old female with altered mental status secondary to possible postictal seizure disorder, encephalopathy. She was found to have pneumonia in bilateral lobes, on Rocephin and Unasyn. Possible UTI. Antibiotics should be sufficient for both. Pulmonary consult. She has given more appropriate answers, back to her baseline today. OBJECTIVE: CARDIOVASCULAR: S1, S2. LUNGS: Scattered rhonchi and wheeze. HEMATOLOGY: Negative Homans. ASSESSMENT: Urinary tract infection, bilateral pneumonia, encephalopathy, possible postictal seizures. Seizure medicine adjusted by neurologist, broad-spectrum antibiotics. Prognosis guarded. MMODL / IJN: [id number] /
[2022-04-26] MEDS: ASPIRIN 81 MG PO SCH (08:38)
[2022-04-26] MEDS: SERTRALINE 25 MG TAB PO SCH (08:38)
[2022-04-26] MEDS: SERTRALINE 100 MG TAB PO SCH (08:38)
[2022-04-26] MEDS: LACOSAMIDE 50 MG TABLET PO SCH ×2 (08:41→21:43)
[2022-04-26] MEDS: DIVALPROEX 500 MG TABLET.DR PO SCH ×2 (08:45→21:43)
[2022-04-26] MEDS: METOPROLOL TARTRATE 50 MG TAB PO SCH ×2 (08:45→21:43)
--- NOTE | 2022-04-26 11:57 | P.PN ---
Subjective Progress Note Date: 04/26/22 The patient seen at bedside and no further episodes of confusion or any seizure- like activity. Patient feels she is back to baseline. Objective - Vital Signs Vital signs: Vital Signs Temp 98.3 F 04/26/22 07:52 Pulse 90 04/26/22 07:52 Resp 18 04/26/22 07:52 BP 105/65 04/26/22 02:00 Pulse Ox 95 04/26/22 07:52 FiO2 Intake & Output 04/25/22 04/26/22 04/26/22 18:59 06:59 18:59 Intake Total 1140 Output Total 1050 Balance 1140 -1050 Intake: IV 240 Sodium Chloride 0.9% 1, 240 000 ml @ 20 mls/hr IV . Q24H SHAR Rx#:[id number] Oral 900 Output: Urine 1050 Other: # Voids 400 - Exam GENERAL: The patient is lying in bed and is not in acute distress. NEUROLOGICAL: Higher mental function: The patient is awake, alert, oriented to self, place. She stated today is the first day of April. Patient is following commands. No aphasia and no neglect. Cranial nerves: The pupils are round, equal and reactive to light and accommodation. Visual campoverde are full to confrontation throughout. Extraocular movement is intact no nystagmus is noted. Facial sensation is normal to touch throughout. The facial strength is normal throughout. Hearing is normal bilaterally to hand rub. Tongue is midline and moved [id number] without any difficulty. No dysarthria is noted. Shoulder shrug is normal bilaterally. Motor: The strength is right upper is 5/5. Has spasticity over the left upper. Has pain in lowers. Cerebellum: Normal finger to nose over the right. Has some tremor over the right upper that is nonrhythmic. Sensation: Sensation is normal to touch throughout. Reflexes (right/left): brisk over the left. Plantars is upgoing over the left. Mute over the right. Some of the workup during this hospital visit consisted of: White blood cell is within normal limits Ammonia level is less than 9 Sodium creatinine ALT is within normal limits. Serum alcohol was less than 10 Valproic acid level is 62.4 that is therapeutic range. Urinalysis is possible suggestive of urinary tract infection with leukocyte esterase was large urine white blood cell is 5 bacteria was rare Gomez virus PCR was not detected. CT of the head is reported as age-related atrophy and chronic small vessel ischemic change without acute intracranial process seen at this time. Interbody reported it is reported that the patient has large area of remote right MCA infarct. I personally reviewed the CT and agree with the report - Labs CBC & Chem 7: 04/24/22 14:22 04/24/22 14:22 Assessment and Plan Assessment: Patient's episode of confusion and sleepiness possibly due to breakthrough seizure especially with history of seizures. The seizure could be possibly provoked due to possible underlying ureter tract infection History of epilepsy Possible acute UTI History right MCA stroke with chronic left hemiplegia Chronic brain aneurysm with post surgical coiling over the left MCA Chronic anemia Hypertension Plan: I increased her Vimpat from 50 mg 1 tablet twice a day to 100 mg twice a day on 04/25/[address] ji levin recommendation end of January 2022. Continue same dose of Depakote 500 in the morning and 750 daily at bedtime. Routine EEG is not needed since the patient has known history of seizures and that currently she feels back to baseline. On seizure precautions and seizure pad Will defer the rest of medical management to the primary team. Upon discharge, patient needs to follow-up with neurologist within 1-2 weeks. Plan is discussed with patient. There is no additional neurological work-up. Will sign off. Please reconsult if needed. Tino Gray M.D. Neuro-Hospitalist Time with Patient: Less than 30
[2022-04-26] MEDS: SODIUM CHLORIDE 0.9% 1,000 ML IV SCH (17:13)
[2022-04-26] MEDS: ATORVASTATIN 20 MG TAB PO SCH (21:43)
[2022-04-26] MEDS: risperiDONE 1 MG TAB PO SCH (21:44)
[2022-04-26] MEDS: DIVALPROEX 250 MG TABLET.DR PO SCH (21:44)
--- NOTE | 2022-04-27 05:10 | PN ---
PROGRESS NOTE SUBJECTIVE: female came in with altered mental status, encephalopathy. She has pneumonia. She has UTI, encephalopathy most likely secondary to that. We are ruling out seizure. Neurology was consulted. Saturating 96% on room air, blood pressure 106/64, temperature 98.3, pulse 81, respiratory rate 16 to 18. OBJECTIVE: CARDIOVASCULAR: S1, S2. LUNGS: Clear. GI: Soft. PSYCH: She is more alert and awake today. She is seen by neurologist today. He says she is back to baseline. Vital signs reviewed. ASSESSMENT: Altered mental status, possibly due to a breakthrough seizure versus pneumonia versus UTI. History of right MCA stroke in the past, left hemiparesis, history of aneurysm, chronic anemia, hypertension, increased her Vimpat from 50 twice a day to 100 twice a day, Depakote 500 in the morning, 750 at night. Routine EEG. Treat for pneumonia and UTI. PROGNOSIS: Guarded. MMODL / IJN: [id number] /
[2022-04-27] MEDS: LEVOTHYROXINE 75 MCG TAB PO SCH (06:17)
[2022-04-27] MEDS: AMPICILLIN-SULBACTAM 1.5 GM in SODIUM CHLORIDE 0.9% 50 ML IVPB SCH ×3 (08:24→23:53)
[2022-04-27] MEDS: SERTRALINE 100 MG TAB PO SCH (08:26)
[2022-04-27] MEDS: LACOSAMIDE 50 MG TABLET PO SCH ×2 (08:26→22:00)
[2022-04-27] MEDS: METOPROLOL TARTRATE 50 MG TAB PO SCH ×2 (08:26→22:00)
[2022-04-27] MEDS: DIVALPROEX 500 MG TABLET.DR PO SCH ×2 (08:26→22:00)
[2022-04-27] MEDS: SERTRALINE 25 MG TAB PO SCH (08:26)
[2022-04-27] MEDS: ASPIRIN 81 MG PO SCH (08:26)
[2022-04-27 09:32] LABS: Basophils # (A) 0.02 X 10*3/uL (0.00-0.10); Basophils % (A) 0.2 %; Eosinophils # (A) 0.25 X 10*3/uL (0.04-0.35); Eosinophils % (A) 3.1 %; HCT 28.1 % (37.2-46.3); HGB 8.7 g/dL (12.0-15.0); Immature Grans, Automated 1.3 %; Lymphocytes # (A) 2.39 X 10*3/uL (0.90-5.00); Lymphocytes % (A) 29.3 %; MCH 23.9 pg (27.0-32.0); MCV 77.2 fL (80.0-97.0); Mean Platelet Volume 10.4 fL (9.5-12.2); Monocytes # (A) 1.18 X 10*3/uL (0.20-1.00); Monocytes % (A) 14.5 %; NRBC Per 100 WBC 0.2 /100 WBCS (0.0-0.0); Neutrophils # (A) 4.21 X 10*3/uL (1.80-7.70); Neutrophils % (A) 51.6 %; Platelet Count 287 X 10*3/uL (140-440); RBC 3.64 X 10*6/uL (4.10-5.20); RDW 16.4 % (11.5-14.5); WBC 8.16 X 10*3/uL (4.50-10.00)
[2022-04-27 09:42] LABS: African American GFR (CKD) 91.8 (60.0-200.0); Albumin 2.8 g/dL (3.8-4.9); Albumin/Globulin Ratio 1.01 (1.60-3.17); Anion Gap 12.5 mmol/L (10.00-18.00); BUN/Creat Ratio 21.29 Ratio (12.00-20.00); Blood Urea Nitrogen 16.8 mg/dL (9.0-27.0); Calcium 8.9 mg/dL (8.7-10.3); Carbon Dioxide 15.7 mmol/L (20.0-27.5); Globulin 2.7 g/dL (1.6-3.3); Non-African American GFR(CKD) 79.2 (60.0-200.0); Total Bilirubin 0.3 mg/dL (0.30-1.20); Total Protein 5.5 g/dL (6.2-8.2)
[2022-04-27] MEDS: MORPHINE SULFATE 2 MG/ML SYRINGE IVP PRN ×3 (11:19→22:01)
[2022-04-27] MEDS: SODIUM CHLORIDE 0.9% 1,000 ML IV SCH (16:27)
[2022-04-27] MEDS: risperiDONE 1 MG TAB PO SCH (22:00)
[2022-04-27] MEDS: DIVALPROEX 250 MG TABLET.DR PO SCH (22:00)
[2022-04-27] MEDS: ATORVASTATIN 20 MG TAB PO SCH (22:00)
[2022-04-27] MEDS: AZITHROMYCIN 500 MG in SODIUM CHLORIDE 0.9% 250 ML IVPB SCH (22:16)
[2022-04-28 04:42] LABS: Anisocytosis Slight; HCT 28.8 % (34.0-46.0); Hypochromasia Marked; MCH 24.1 pg (25.0-35.0); MCHC 31.1 g/dL (31.0-37.0); MCV 77.5 fL (80.0-100.0); Mean Platelet Volume 9.2; Microcytosis Slight; Platelet Count 220 k/uL (150-450); Poikilocytosis Slight; RBC 3.72 m/uL (3.80-5.40); RDW 16.8 % (11.5-15.5); WBC 8.6 k/uL (3.8-10.6)
[2022-04-28 05:12] LABS: ALT 14 U/L (4-34); AST 45 U/L (14-36); African American GFR (CKD) >90 (>60 ml/min/1.73 sqM); Albumin 2.5 g/dL (3.5-5.0); Albumin/Globulin Ratio 0.8; Alkaline Phosphatase 58 U/L (38-126); Anion Gap 12 mmol/L; Blood Urea Nitrogen 15 mg/dL (7-17); Calcium 8.9 mg/dL (8.4-10.2); Carbon Dioxide 14 mmol/L (22-30); Chloride 110 mmol/L (98-107); Glucose 61 mg/dL (74-99); Non-African American GFR(CKD) >90 (>60 ml/min/1.73 sqM); Potassium 4.4 mmol/L (3.5-5.1); Sodium 136 mmol/L (137-145); Total Bilirubin 0.5 mg/dL (0.2-1.3); Total Protein 5.5 g/dL (6.3-8.2)
[2022-04-28] MEDS: LEVOTHYROXINE 75 MCG TAB PO SCH (06:04)
[2022-04-28 06:20] LABS: Anisocytosis (M) Present; Band Neutrophils % 4 %; Eosinophils # (M) 0.26 k/uL (0-0.7); Lymphocytes # (M) 2.24 k/uL (1.0-4.8); Monocytes # (M) 1.55 k/uL (0-1.0); Neutrophils % (M) 49 %; Nucleated Red Blood Cells 0 /100 WBC (0-0); Ovalocytes Present; Poikilocytosis (M) Present; Total Cells Counted 100
[2022-04-28 06:21] LABS: RBC Fragments Present
[2022-04-28] MEDS: DIVALPROEX 500 MG TABLET.DR PO SCH ×2 (09:34→20:42)
[2022-04-28] MEDS: AMPICILLIN-SULBACTAM 1.5 GM in SODIUM CHLORIDE 0.9% 50 ML IVPB SCH ×3 (09:34→23:54)
[2022-04-28] MEDS: SERTRALINE 100 MG TAB PO SCH (09:35)
[2022-04-28] MEDS: LACOSAMIDE 50 MG TABLET PO SCH ×2 (09:35→20:42)
[2022-04-28] MEDS: ASPIRIN 81 MG PO SCH (09:35)
[2022-04-28] MEDS: SERTRALINE 25 MG TAB PO SCH (09:35)
[2022-04-28] MEDS: DIVALPROEX 250 MG TABLET.DR PO SCH (09:35)
[2022-04-28] MEDS: METOPROLOL TARTRATE 50 MG TAB PO SCH ×2 (09:35→20:42)
--- NOTE | 2022-04-28 12:17 | CDI ---
Documentation Clarification Form Date: 04/28/2022 11:28:11 AM From: Bree Galaviz RN CCDS Admit Date: 04/24/2022 05:22:00 PM Patient Name: Jeane Urbano Visit Number: [id number] Discharge Date: ATTENTION: The Clinical Documentation Specialists (CDI) and [facility] Coding Staff appreciate your assistance in clarifying documentation. Please respond to the clarification below the line at the bottom and electronically sign. The CDI & [facility] Coding staff will review the response and follow-up if needed. Please note: Queries are made part of the Legal Health Record. If you have any questions, please contact the author of this message via ITS. Dr. Mohit Harley Encephalopathy is documented 04/26, Medicine note. Additional clarification regarding the type of encephalopathy is requested. History/Risk Factors: 62-year-old female presents to the ED with altered mental status. Medical history: Seizures, pain pump not in use yet, bed bound and CVA. Clinical Indicators: Labs: 04/24: URINE: Leukocyte esterase: Large; Urine Rbc: 9; Urine Wbc 5. EE/1 Neurology: Routine EEG is not needed since the patient has known history of seizures and that currently she feels back to baseline. CT Brain: Age related atrophic and chronic small vessel ischemic change without acute intracranial process seen at this time. Neurology consult: 04/25 Patients episode of confusion and sleepiness possibly due to breakthrough seizure especially with history of seizures. The seizure could be possibly provoked due to possible underlying ureter tract infection. Medicine progress note: 04/26 She has pneumonia. She has UTI, encephalopathy most likely secondary to that. Treatment: 04/24 Vimpat 50mg PO once a day 04/25 changed to 100mg BID; 04/24 Depakote 500mg PO BID; 04/24 Depakote 250mg PO HS SHAR; 04/24 04/25 Ceftriaxone IVPB Q24HR; 04/25 Ampicillin IVPB Q8HR; 04/27 Azithromycin IVPB HS SHAR x 3 bags. Consults: See above. Please clarify the type of encephalopathy, if known: [ ] Metabolic Encephalopathy related to UTI [ ] Metabolic Encephalopathy ruled out, confusion and altered mental status related to seizure [ ] Other, please specify [ ] Unable to determine (Template Last Revised: September 2020) MTDD
[2022-04-28] MEDS: SODIUM CHLORIDE 0.9% 1,000 ML IV SCH (17:33)
--- NOTE | 2022-04-28 20:29 | PN ---
PROGRESS NOTE Her Depakote has been increased by Neurology up to 500 b.i.d and 250 mg at night. She is on Zosyn for UTI and aspiration pneumonia. She currently is improving to her normal status. Hemoglobin is 8.7, sodium 135, potassium 4.0, BUN 16.8, creatinine 0.8. Sugars are 99 to 66. Albumin is low at 2.8 with an increase in nutrition. She has high procalcitonin for aspiration pneumonia we are treating her for. A chest CT showed bilateral interstitial pulmonary infiltrates, multifocal pneumonia, is on broad- spectrum antibiotics. Possible discharge home as she continues to improve. Please see further orders. MMODL / IJN: [id number] /
[2022-04-28] MEDS: AZITHROMYCIN 500 MG in SODIUM CHLORIDE 0.9% 250 ML IVPB SCH (20:41)
[2022-04-28] MEDS: risperiDONE 1 MG TAB PO SCH (20:42)
[2022-04-28] MEDS: ATORVASTATIN 20 MG TAB PO SCH (20:42)
[2022-04-29] MEDS: LEVOTHYROXINE 75 MCG TAB PO SCH (06:29)
[2022-04-29] MEDS: DIVALPROEX 500 MG TABLET.DR PO SCH (07:33)
[2022-04-29] MEDS: ASPIRIN 81 MG PO SCH (07:33)
[2022-04-29] MEDS: METOPROLOL TARTRATE 50 MG TAB PO SCH (07:33)
[2022-04-29] MEDS: SERTRALINE 100 MG TAB PO SCH (07:34)
[2022-04-29] MEDS: AMPICILLIN-SULBACTAM 1.5 GM in SODIUM CHLORIDE 0.9% 50 ML IVPB SCH (07:34)
[2022-04-29] MEDS: LACOSAMIDE 50 MG TABLET PO SCH (07:34)
[2022-04-29] MEDS: SERTRALINE 25 MG TAB PO SCH (07:35)
--- NOTE | 2022-04-29 08:22 | P.CONS ---
History of Present Illness - Reason for Consult Consult date: 04/28/22 - History of Present Illness Patient is a 62-year-old -[place] female with a past medical he significant for CVA hypertension hyperlipidemia was brought into the hospital 5 days ago for evaluation of mental status changes apparently the patient has been more sleepy than usual on presentation to the hospital the patient did have a low-grade fever of 99.9 F patient is currently breathing comfortably on room air satting around 97% patient did have a normal white count BUN was mildly elevated creatinine is normal AST is mildly elevated she did have a focus of 0.45 on 04/24/2022 urine was negative COVID testing was negative patient did have a chest x-ray mild nonspecific increased lung markings correlate for atypical pneumonia patient did have a CT of the chest concerning for multifocal pneumonia patient is currently being treated with Unasyn with consult infectious disease today for right heel wound patient is nonverbal and did not provide any history and is not clear for how long the patient did have this wound no family was available at the bedside all the nursing staff most information has been obtai maliha from review the chart Past Medical History Past Medical History: CVA/TIA, Hyperlipidemia, Hypertension, Osteoarthritis (OA) Additional Past Medical History / Comment(s): ANEMIA, CVA WITH L ARM WEAKNESS AND bilateral LEG WEAKNESS, hx. 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 Past Psychological History: Anxiety, Depression, Schizophrenia Additional Psychological History / Comment(s): paranoid schizophrenia Smoking Status: Former smoker Additional Past Alcohol Use History / Comment(s): Stopped smoking 2012 or 2013 - Past Family History Sister(s) Family Medical History: Myocardial Infarction ([place]) Father Family Medical History: Cancer Additional Family Medical History / Comment(s): throat, lung, and rectal cancer Mother Family Medical History: Myocardial Infarction ([place]) Additional Family Medical History / Comment(s): stroke Medications and Allergies Home Medications Medication Instructions Recorded Confirmed Type Aspirin EC [Ecotrin Low Dose] 81 mg PO DAILY 04/12/16 04/24/22 History Metoprolol Tartrate 100 mg PO BID 01/04/17 04/24/22 History Sertraline [Zoloft] 100 mg PO DAILY 01/04/17 04/24/22 History Omeprazole [PriLOSEC] 20 mg PO DAILY 02/09/20 04/24/22 History Atorvastatin [Lipitor] 20 mg PO HS #30 tab 02/13/20 04/24/22 Rx Divalproex [Depakote] 500 mg PO BID 02/20/22 04/24/22 History Levothyroxine Sodium [Synthroid] 75 mcg PO DAILY 02/20/22 04/24/22 History Sertraline [Zoloft] 25 mg PO DAILY 02/20/22 04/24/22 History Divalproex [Depakote] 250 mg PO HS 04/24/22 04/24/22 History HYDROcodone/APAP 5-325MG [[place] 1 tab PO Q4H PRN 04/24/22 04/24/22 History 5-325] Cefdinir [Omnicef] 300 mg PO BID 7 Days #14 cap 04/29/22 Rx Lacosamide [Vimpat] 100 mg PO BID 30 Days #60 tab 04/29/22 Rx risperiDONE [RisperDAL] 1 mg PO HS 30 Days #30 tab 04/29/22 Rx Allergies Allergy/AdvReac Type Severity Reaction Status Date / Time No Known Allergies Allergy Verified 04/24/22 17:37 Physical Exam Vitals: Vital Signs Temp Pulse Resp BP Pulse Ox 04/28/22 07:52 98.2 F 83 14 113/77 100 04/28/22 02:00 97.8 F 94 135/84 93 L 04/27/22 19:25 89 16 04/27/22 19:24 98.4 F 89 16 132/96 98 Intake and Output 04/27/22 04/28/22 04/28/22 22:59 06:59 14:59 Output Total 450 100 Balance -450 -100 Output: Urine 450 100 Other: Voiding Method External Catheter Results CBC & Chem 7: 04/28/22 04:01 04/28/22 04:01 Labs: Abnormal Lab Results - Last 24 Hours (Table) 04/28/22 04/28/22 Range/Units 04:01 04:01 RBC 3.72 L (3.80-5.40) m/uL Hgb 9.0 L D (11.4-16.0) gm/dL Hct 28.8 L (34.0-46.0) % MCV 77.5 L (80.0-100.0) fL MCH 24.1 L (25.0-35.0) pg RDW 16.8 H (11.5-15.5) % Monocytes # (Manual) 1.55 H (0-1.0) k/uL Sodium 136 L (137-145) mmol/L Chloride 110 H (98-107) mmol/L Carbon Dioxide 14 L (22-30) mmol/L Glucose 61 L (74-99) mg/dL AST 45 H (14-36) U/L Total Protein 5.5 L (6.3-8.2) g/dL Albumin 2.5 L (3.5-5.0) g/dL Assessment and Plan Plan: 1patient with a unstageable pressure ulcer to the right heel area with necrotic base but no evidence of any surrounding swelling redness or any foul-smelling drainage which will be mostly supportive. 2patient with presented to the hospital mental status changes she did have low- grade fever with evidence of pulmonary infiltrate on the chest x-ray and CT concerning for possible pneumonia also have elevated procalcitonin with some 3keep the right heel pressure area of the pressure on the time. 4increase the dose of Unasyn to 3 g every 8 hours 5obtain sputum for gram stain culture possible We will follow on clinical condition and cultures to further adjust medication if needed Thank you for this consultation will follow this patient along with you Time with Patient: Greater than 30
[2022-04-29 08:30] VITALS: RESP 16
[2022-04-29] MEDS ORDERED: CEFDINIR 300 MG CAP PO SCH (09:00)
[2022-04-29 14:36] VITALS: BP 154/97; PULSE 89; TEMP 98.2
[2022-04-29] MEDS ORDERED: AMPICILLIN-SULBACTAM 3 GM in SODIUM CHLORIDE 0.9% 100 ML IVPB SCH (16:00)
[2022-04-29] MEDS ORDERED: AMPICILLIN-SULBACTAM 3 GM in SODIUM CHLORIDE 0.9% 50 ML IVPB SCH (16:00)
--- NOTE | 2022-04-29 23:39 | PN ---
PROGRESS NOTE SUBJECTIVE: She has encephalopathy secondary to UTI and possible pneumonia. She has been started on IV antibiotics. She will continue with current antibiotic treatment. Follow up in next 24 to 48 hours after discharge. Her mental status is back to normal. OBJECTIVE: VITAL SIGNS: Stable, afebrile. CARDIOVASCULAR: S1, S2. NEUROLOGIC: Alert, oriented x3, giving appropriate answers. HEMATOLOGY: Negative Homans. PLAN: Continue current treatment for pneumonia. PT, OT. Discharge home tomorrow. She is much improved. MMODL / IJN: [id number] /
== END 2022-04-29 16:31 | disposition home or self-care (01) | DRG 689 ==
LOC: EC 13:28 → 4SSUR 17:22
PROVIDERS: ADMIT Family Medicine; ATTEND Family Medicine
DX: N39.0 Urinary tract infection, site not specified (principal); J69.0 Pneumonitis due to inhalation of food and vomit; F20.0 Paranoid schizophrenia; I69.354 Hemiplegia and hemiparesis following cerebral infarction affecting left non-dominant side; G93.49 Other encephalopathy; G40.909 Epilepsy, unspecified, not intractable, without status epilepticus; I67.1 Cerebral aneurysm, nonruptured; L89.610 Pressure ulcer of right heel, unstageable; Z20.822 Contact with and (suspected) exposure to COVID-19; G47.10 Hypersomnia, unspecified; E78.5 Hyperlipidemia, unspecified; I10 Essential (primary) hypertension; F32.A Depression, unspecified; F41.9 Anxiety disorder, unspecified; R25.1 Tremor, unspecified; M19.90 Unspecified osteoarthritis, unspecified site; D64.9 Anemia, unspecified; Z79.82 Long term (current) use of aspirin; Z79.890 Hormone replacement therapy; Z79.899 Other long term (current) drug therapy; Z87.891 Personal history of nicotine dependence; Z95.828 Presence of other vascular implants and grafts; Z97.8 Presence of other specified devices; Z74.01 Bed confinement status
CPT/HCPCS: 36415; 70450; 71045; 71250; 80053; 80164; 80165; 80179; 80235; 80320; 81001; 82140; 82550; 83605; 83735; 83930; 84145; 84484; 85025; 85610; 85730; 87635; 93005; 96361; 96365; 96366; 96375; 96376; 99285

== ENCOUNTER 2022-05-07 20:21 | Inpatient (IN) | payer OTHER ==
--- NOTE | 2022-05-07 21:18 | XR ---
EXAMINATION TYPE: XR chest 2V DATE OF EXAM: 05/07/2022 COMPARISON: 04/24/2022 HISTORY: Short of breath TECHNIQUE: FINDINGS: Heart is normal. There is some coarsening of interstitial markings and more in the left clifton g. No obvious heart failure. No pleural effusion. There are chest leads. IMPRESSION: There are some interstitial pneumonia that is worse on the left side and not significantl y different than last exam. This could be pulmonary fibrosis. Acute pneumonia not excluded. No obviou s heart failure.
[2022-05-07] MEDS ORDERED: cefTRIAXone IN SWFI 1,000 MG/10 ML SYRINGE IVP STA (21:25)
[2022-05-07] MEDS ORDERED: SODIUM CHLORIDE 0.9% 1,000 ML IV ONE (21:41)
--- NOTE | 2022-05-07 21:53 | ED ---
General Adult HPI - General Chief complaint: Extremity Problem,Nontraumatic Stated complaint: arm edema Time Seen by Provider: 05/07/22 20:32 Source: EMS Mode of arrival: EMS Limitations: physical limitation - History of Present Illness Initial comments: Patient is a 62-year-old female with multiple comorbidities presenting for right arm swelling. Patient was brought in by EMS, they state that the right arm edema began yesterday. Patient was hypoxic upon their arrival at her home. Patient is bedbound and contracted at baseline per EMS. Patient recently had a pain pump placed for morphine. Once the patient's family member arrived, he informed me that patient has been much less engaged since receiving pain pump on Thursday. He is also concerned for dehydration as patient has been eating and drinking less. - Related Data Home Medications Medication Instructions Recorded Confirmed Aspirin EC [Ecotrin Low Dose] 81 mg PO DAILY 04/12/16 05/08/22 Metoprolol Tartrate 100 mg PO BID 01/04/17 05/08/22 Sertraline [Zoloft] 100 mg PO DAILY 01/04/17 05/08/22 Omeprazole [PriLOSEC] 20 mg PO DAILY 02/09/20 05/08/22 Divalproex [Depakote] 500 mg PO BID 02/20/22 05/08/22 Levothyroxine Sodium [Synthroid] 75 mcg PO DAILY 02/20/22 05/08/22 Sertraline [Zoloft] 25 mg PO DAILY 02/20/22 05/08/22 Divalproex [Depakote] 250 mg PO HS 04/24/22 05/08/22 HYDROcodone/APAP 5-325MG [[place] 1 tab PO Q4H PRN 04/24/22 05/08/22 5-325] Morphine Pain Pump 1 dose MISCELLANE DIRECTED 05/08/22 05/08/22 Ondansetron Odt [Zofran ODT] 4 mg PO TID 05/08/22 05/08/22 Previous Rx's Medication Instructions Recorded Atorvastatin [Lipitor] 20 mg PO HS #30 tab 02/13/20 Lacosamide [Vimpat] 100 mg PO BID 30 Days #60 tab 04/29/22 risperiDONE [RisperDAL] 1 mg PO HS 30 Days #30 tab 04/29/22 Allergies Allergy/AdvReac Type Severity Reaction Status Date / Time No Known Allergies Allergy Verified 05/08/22 09:48 Review of Systems ROS Statement: Those systems with pertinent positive or pertinent negative responses have been documented in the HPI. ROS Other: All systems not noted in ROS Statement are negative. 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 gout, PANCREATITIS, pseudoseizures, UTI, gallstones, tremors, hx multiple brain aneursyms History of Any Multi-Drug Resistant Organisms: None Reported Date of last positivie culture/infection: 03/18/18 ESBL E.coli MDRO Source:: Urine Past Surgical History: Section, Cholecystectomy, Orthopedic Surgery Additional Past Surgical History / Comment(s): hx aneurysms- COILS AND STENTS TO BRAIN, repair tendons r/t gout BILATERAL FEET; Pain pump inserted on 04/21/22 Past Anesthesia/Blood Transfusion Reactions: No Reported Reaction Additional Past Anesthesia/Blood Transfusion Reaction / Comment(s): PT HAS HAD B LOOD TRANSFUSIONS FOR ANEMIA-NO REACTION. Past Psychological History: Anxiety, Depression, Schizophrenia Additional Psychological History / Comment(s): paranoid schizophrenia Smoking Status: Former smoker Additional Past Alcohol Use History / Comment(s): Stopped smoking 2012 or 2013 - Past Family History Sister(s) Family Medical History: Myocardial Infarction ([place]) Father Family Medical History: Cancer Additional Family Medical History / Comment(s): throat, lung, and rectal cancer Mother Family Medical History: Myocardial Infarction ([place]) Additional Family Medical History / Comment(s): stroke General Exam Limitations: physical limitation General appearance: in no apparent distress, lethargic Head exam: Present: atraumatic, normocephalic, normal inspection Eye exam: Present: normal appearance, PERRL, EOMI. Absent: scleral icterus, conjunctival injection, periorbital swelling Respiratory exam: Present: rhonchi (L sided). Absent: normal lung sounds bilaterally, respiratory distress, wheezes, rales, stridor, accessory muscle use Cardiovascular Exam: Present: normal rhythm, tachycardia, normal heart sounds. Absent: systolic murmur, diastolic murmur, rubs, gallop, clicks Extremities exam: Present: other (Right arm edema, neurovascularly intact) Neurological exam: Present: alert, altered Psychiatric exam: Present: normal affect, normal mood Skin exam: Present: warm, dry, intact, normal color. Absent: rash Course Vital Signs 05/07/22 05/07/22 05/07/22 20:26 20:31 22:31 Temperature 98.9 F Pulse Rate 123 H 116 H Respiratory 22 Rate Blood Pressure 157/93 O2 Sat by Pulse 92 L Oximetry 05/07/22 05/08/22 05/08/22 23:50 02:14 04:00 Temperature Pulse Rate 98 82 Respiratory 16 18 18 Rate Blood Pressure 124/45 113/50 O2 Sat by Pulse 100 99 Oximetry 05/08/22 05/08/22 08:30 10:47 Temperature Pulse Rate 86 85 Respiratory 18 18 Rate Blood Pressure 133/70 132/77 O2 Sat by Pulse 100 99 Oximetry EKG Findings - EKG Comments: EKG Findings:: Sinus tachycardia rate 124. [place] interval 161. QRS duration 94. QT/QTC 299/373. Normal axis. Medical Decision Making - Medical Decision Making Patient is a 62-year-old female presenting with chief complaint of right arm swelling and altered mental status. Family member at bedside states that patient has been altered since getting her pain pump on Thursday. On evaluation patient is alert but minimally responsive, this may be due to morphine pain pump, patient will be given Narcan. No leukocytosis, hemoglobin 9.1 consistent with baseline. JOSE with creatinine 3.83 and BUN 52. Patient is tachycardic and D-dimer is elevated at 2.15, given patient's kidney function at this time we will not send for CTA, will receive VQ scan during admission. Potassium 5.3, patient is receiving fluids. Troponin less than 0.012. Patient is negative for Covid and influenza. Chest x-ray shows some interstitial pneumonia that has not significantly changed since last exam, we'll treat prophylactically with dose of Keflex and azithromycin as acute pneumonia is not excluded and there are rales heard on examination. Urine is pending at this time. Venous Doppler s tudy negative for DVT of the right arm. CT of the brain shows no acute intracranial process. Patient will be admitted for JOSE, altered mental status, an elevated d-dimer. I spoke with Dr. Harley who agreed to accept the patient. I discussed this case with my attending Dr. Velasco. - Lab Data Result diagrams: 10/12/22 22:15 05/07/22 22:15 Lab Results 05/07/22 05/07/22 05/07/22 Range/Units 21:27 21:27 22:15 WBC 6.8 (3.8-10.6) k/uL RBC 3.74 L (3.80-5.40) m/uL Hgb 9.1 L (11.4-16.0) gm/dL Hct 29.4 L (34.0-46.0) % MCV 78.7 L (80.0-100.0) fL MCH 24.3 L (25.0-35.0) pg MCHC 30.8 L (31.0-37.0) g/dL RDW 18.0 H (11.5-15.5) % Plt Count 280 (150-450) k/uL MPV 7.6 Neutrophils % 47 % Lymphocytes % 33 % Monocytes % 14 % Eosinophils % 3 % Basophils % 0 % Neutrophils # 3.2 (1.3-7.7) k/uL Lymphocytes # 2.3 (1.0-4.8) k/uL Monocytes # 1.0 (0-1.0) k/uL Eosinophils # 0.2 (0-0.7) k/uL Basophils # 0.0 (0-0.2) k/uL Hypochromasia Marked Poikilocytosis Slight Anisocytosis Slight Microcytosis Slight PT (9.0-12.0) sec INR (<1.2) APTT (22.0-30.0) sec D-Dimer (<0.60) mg/L FEU Sodium (137-145) mmol/L Potassium (3.5-5.1) mmol/L Chloride (98-107) mmol/L Carbon Dioxide (22-30) mmol/L Anion Gap mmol/L BUN (7-17) mg/dL Creatinine (0.52-1.04) mg/dL Est GFR (CKD-EPI)AfAm (>60 ml/min/1.73 sqM) Est GFR (CKD-EPI)NonAf (>60 ml/min/1.73 sqM) Glucose (74-99) mg/dL Plasma Lactic Acid Shen (0.7-2.0) mmol/L Calcium (8.4-10.2) mg/dL Magnesium (1.6-2.3) mg/dL Total Bilirubin (0.2-1.3) mg/dL AST (14-36) U/L ALT (4-34) U/L Alkaline Phosphatase (38-126) U/L Creatine Kinase (30-135) U/L Troponin I (0.000-0.034) ng/mL NT-Pro-B Natriuret Pep pg/mL Total Protein (6.3-8.2) g/dL Albumin (3.5-5.0) g/dL Coronavirus (PCR) Not Detected (Not Detectd) Influenza Type A RNA Not Detected (Not Detectd) Influenza Type B (PCR) Not Detected (Not Detectd) 05/07/22 05/07/22 05/07/22 Range/Units 22:15 22:15 22:15 WBC (3.8-10.6) k/uL RBC (3.80-5.40) m/uL Hgb (11.4-16.0) gm/dL Hct (34.0-46.0) % MCV (80.0-100.0) fL MCH (25.0-35.0) pg MCHC (31.0-37.0) g/dL RDW (11.5-15.5) % Plt Count (150-450) k/uL MPV Neutrophils % % Lymphocytes % % Monocytes % % Eosinophils % % Basophils % % Neutrophils # (1.3-7.7) k/uL Lymphocytes # (1.0-4.8) k/uL Monocytes # (0-1.0) k/uL Eosinophils # (0-0.7) k/uL Basophils # (0-0.2) k/uL Hypochromasia Poikilocytosis Anisocytosis Microcytosis PT 10.8 (9.0-12.0) sec INR 1.0 (<1.2) APTT 24.9 (22.0-30.0) sec D-Dimer 2.15 H (<0.60) mg/L FEU Sodium 139 (137-145) mmol/L Potassium 5.3 H (3.5-5.1) mmol/L Chloride 106 (98-107) mmol/L Carbon Dioxide 17 L (22-30) mmol/L Anion Gap 16 mmol/L BUN 52 H (7-17) mg/dL Creatinine 3.83 H (0.52-1.04) mg/dL Est GFR (CKD-EPI)AfAm 14 (>60 ml/min/1.73 sqM) Est GFR (CKD-EPI)NonAf 12 (>60 ml/min/1.73 sqM) Glucose 115 H (74-99) mg/dL Plasma Lactic Acid Shen 0.9 (0.7-2.0) mmol/L Calcium 9.0 (8.4-10.2) mg/dL Magnesium 1.6 (1.6-2.3) mg/dL Total Bilirubin 0.4 (0.2-1.3) mg/dL AST 40 H (14-36) U/L ALT 15 (4-34) U/L Alkaline Phosphatase 94 (38-126) U/L Creatine Kinase (30-135) U/L Troponin I (0.000-0.034) ng/mL NT-Pro-B Natriuret Pep pg/mL Total Protein 6.8 (6.3-8.2) g/dL Albumin 3.3 L (3.5-5.0) g/dL Coronavirus (PCR) (Not Detectd) Influenza Type A RNA (Not Detectd) Influenza Type B (PCR) (Not Detectd) 05/07/22 05/07/22 05/07/22 Range/Units 22:15 22:15 22:52 WBC (3.8-10.6) k/uL RBC (3.80-5.40) m/uL Hgb (11.4-16.0) gm/dL Hct (34.0-46.0) % MCV (80.0-100.0) fL MCH (25.0-35.0) pg MCHC (31.0-37.0) g/dL RDW (11.5-15.5) % Plt Count (150-450) k/uL MPV Neutrophils % % Lymphocytes % % Monocytes % % Eosinophils % % Basophils % % Neutrophils # (1.3-7.7) k/uL Lymphocytes # (1.0-4.8) k/uL Monocytes # (0-1.0) k/uL Eosinophils # (0-0.7) k/uL Basophils # (0-0.2) k/uL Hypochromasia Poikilocytosis Anisocytosis Microcytosis PT (9.0-12.0) sec INR (<1.2) APTT (22.0-30.0) sec D-Dimer (<0.60) mg/L FEU Sodium (137-145) mmol/L Potassium (3.5-5.1) mmol/L Chloride (98-107) mmol/L Carbon Dioxide (22-30) mmol/L Anion Gap mmol/L BUN (7-17) mg/dL Creatinine (0.52-1.04) mg/dL Est GFR (CKD-EPI)AfAm (>60 ml/min/1.73 sqM) Est GFR (CKD-EPI)NonAf (>60 ml/min/1.73 sqM) Glucose (74-99) mg/dL Plasma Lactic Acid Shen (0.7-2.0) mmol/L Calcium (8.4-10.2) mg/dL Magnesium (1.6-2.3) mg/dL Total Bilirubin (0.2-1.3) mg/dL AST (14-36) U/L ALT (4-34) U/L Alkaline Phosphatase (38-126) U/L Creatine Kinase 249 H (30-135) U/L Troponin I <0.012 (0.000-0.034) ng/mL NT-Pro-B Natriuret Pep 3670 pg/mL Total Protein (6.3-8.2) g/dL Albumin (3.5-5.0) g/dL Coronavirus (PCR) (Not Detectd) Influenza Type A RNA (Not Detectd) Influenza Type B (PCR) (Not Detectd) Disposition Clinical Impression: JOSE (acute kidney injury), Altered mental status, Hyperkalemia, Elevated d- dimer Disposition: ADMITTED IP TO THIS [facility] Condition: Fair Time of Disposition: 23:49 Decision to Admit Reason: Admit from EC Decision Date: 05/07/22 Decision Time: 23:50
[2022-05-07] MEDS ORDERED: AZITHROMYCIN 500 MG in SODIUM CHLORIDE 0.9% 250 ML IVPB ONE (22:00)
--- NOTE | 2022-05-07 22:28 | US ---
EXAMINATION TYPE: US venous doppler duplex UE RT DATE OF EXAM: 05/07/2022 COMPARISON: NONE CLINICAL HISTORY: UE swelling. Swelling in right arm at elbow and below SIDE PERFORMED: Right Right Arm: Limited due to patient not being able to move arm. Appears negative for DVT. Thrombus seen in cephalic vein at elbow, cephalic vein was not visualized in upper arm. Ulnar veins not visualized due to edema. IMPRESSION: No evidence of deep vein thrombosis in the right arm. There is limited superficial vein thrombosis in the cephalic vein at the elbow.
[2022-05-07] MEDS ORDERED: NALOXONE 0.4 MG/ML 1 ML VIAL IVP STA (22:36)
[2022-05-07 22:54] LABS: Anisocytosis Slight; Basophils % (A) 0 %; Eosinophils # (A) 0.2 k/uL (0-0.7); Eosinophils % (A) 3 %; HCT 29.4 % (34.0-46.0); HGB 9.1 gm/dL (11.4-16.0); Hypochromasia Marked; Lymphocytes # (A) 2.3 k/uL (1.0-4.8); Lymphocytes % (A) 33 %; MCH 24.3 pg (25.0-35.0); MCHC 30.8 g/dL (31.0-37.0); MCV 78.7 fL (80.0-100.0); Mean Platelet Volume 7.6; Microcytosis Slight; Monocytes % (A) 14 %; Neutrophils # (A) 3.2 k/uL (1.3-7.7); Neutrophils % (A) 47 %; Platelet Count 280 k/uL (150-450); Poikilocytosis Slight; RBC 3.74 m/uL (3.80-5.40); WBC 6.8 k/uL (3.8-10.6)
[2022-05-07 23:04] LABS: Albumin 3.3 g/dL (3.5-5.0); Magnesium 1.6 mg/dL (1.6-2.3); Potassium 5.3 mmol/L (3.5-5.1); Total Bilirubin 0.4 mg/dL (0.2-1.3); Total Protein 6.8 g/dL (6.3-8.2)
[2022-05-07 23:15] LABS: Partial Thromboplastin Time 24.9 sec (22.0-30.0); Prothrombin Time 10.8 sec (9.0-12.0)
--- NOTE | 2022-05-07 23:16 | CT ---
EXAMINATION TYPE: CT brain wo con DATE OF EXAM: 05/07/2022 COMPARISON: 04/24/2022 HISTORY: AMS CT DLP: 1118.4 mGycm Automated exposure control for dose reduction was used. Images of the brain obtained with no contrast. There is cerebral cortical atrophy. There is large right hemisphere hypodensity related to old middle cerebral artery infarct. There is no mass effect normal Shift. No sign of intracranial hemorrhage. The calvarium is intact. IMPRESSION: Large old right hemispheric infarct. Cerebral atrophy. No acute intracranial abnormality. No change c ompared to old exam.
[2022-05-08] MEDS ORDERED: ONDANSETRON 4 MG/2 ML VIAL IVP STA
[2022-05-08] MEDS ORDERED: ONDANSETRON 4 MG/2 ML VIAL IVP PRN (00:07)
[2022-05-08] MEDS: SODIUM CHLORIDE 0.9% 1,000 ML IV SCH ×4 (03:59→22:29)
[2022-05-08 04:36] LABS: Appearance,Urine Cloudy (Clear); Bacteria,Urine Rare /hpf; Bilirubin,Urine Negative (Negative); Blood,Urine Trace (Negative); Color,Urine Dark Yellow; Glucose,Urine (UA) Negative (Negative); Ketones,Urine Trace (Negative); Leukocyte Esterase,Urine Moderate (Negative); Mucus,Urine Rare /hpf; Nitrite,Urine Negative (Negative); Protein,Urine Trace (Negative); RBC,Urine 6 /hpf (0-5); Specific Gravity,Urine 1.018 (1.001-1.035); Squamous Epithelial Cell,Urine 3 /hpf (0-4); Urobilinogen,Urine <2.0 mg/dL (<2.0); WBC,Urine 16 /hpf (0-5)
--- NOTE | 2022-05-08 08:19 | NM ---
EXAMINATION TYPE: NM pul perfusion DATE OF EXAM: 05/08/2022 COMPARISON: Correlation radiograph 05/07/2022 HISTORY: 62-year-old female acute kidney injury, shortness of breath, elevated d-dimer. TECHNIQUE: No ventilation images as the patient was unable to complete the breathing exercises satisf actorily. Following administration of 4.8 mCi Tc 99m MAA. Images obtained post injection. FINDINGS: There is homogeneous distribution of tracer throughout the lungs. No discrete perfusion defect is hosea ntified. IMPRESSION: Very low probability for pulmonary embolus.
--- NOTE | 2022-05-08 19:02 | CT ---
EXAMINATION TYPE: CT chest wo con DATE OF EXAM: 05/08/2022 COMPARISON: Chest CT April 24, 2022 and older studies HISTORY: Community acquired pneumonia CT DLP: 259.5 mGycm. Automated Exposure Control for Dose Reduction was Utilized. TECHNIQUE: CT scan of the thorax is performed without IV contrast. FINDINGS: LUNGS: Tiny bilateral pleural effusions remain present. Persistent bilateral multifocal and confluent ground glass opacities are worsened from April 24 CT no pneumothorax seen bilaterally. Tracheobr onchial tree is patent. MEDIASTINUM: Lack of IV contrast is noted to limit evaluation for mediastinal and especially hilar ad enopathy. There are no definitive greater than 1 cm mediastinal lymph nodes. No cardiomegaly or per icardial effusion is seen. At least moderate coronary artery calcifications are present which is note d marker of underlying coronary artery disease. 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 Osseous structures are demineralized with exaggerated thoracic kyphosis. There is mild h eight loss involving the L2 vertebra presumed chronic. IMPRESSION: Bilateral multifocal and confluent groundglass opacities are more prominent from prior CT consistent with worsening infection and/or edema. Stable tiny bilateral pleural effusions are noted.
[2022-05-08] MEDS: DIVALPROEX 500 MG TABLET.DR PO SCH (22:28)
[2022-05-08] MEDS: LACOSAMIDE 50 MG TABLET PO SCH (22:28)
[2022-05-08] MEDS: ATORVASTATIN 20 MG TAB PO SCH (22:28)
[2022-05-08] MEDS: DIVALPROEX 250 MG TABLET.DR PO SCH (22:29)
[2022-05-08] MEDS: METOPROLOL TARTRATE 25 MG TAB PO SCH (22:29)
[2022-05-09] MEDS: LEVOTHYROXINE 75 MCG TAB PO SCH (05:55)
[2022-05-09] MEDS: SODIUM CHLORIDE 0.9% 1,000 ML IV SCH ×3 (06:22→23:03)
[2022-05-09] MEDS ORDERED: AZITHROMYCIN 500 MG in SODIUM CHLORIDE 0.9% 250 ML IVPB SCH (09:00)
[2022-05-09] MEDS: DIVALPROEX 500 MG TABLET.DR PO SCH ×3 (10:03→23:02)
[2022-05-09] MEDS: ASPIRIN 81 MG PO SCH (10:03)
[2022-05-09] MEDS: LACOSAMIDE 50 MG TABLET PO SCH ×2 (10:03→23:02)
[2022-05-09] MEDS: METOPROLOL TARTRATE 25 MG TAB PO SCH ×2 (10:04→22:31)
[2022-05-09] MEDS: PANTOPRAZOLE 40 MG TABLET PO SCH (10:04)
[2022-05-09 10:37] LABS: Basophils # (A) 0.02 X 10*3/uL (0.00-0.10); Basophils % (A) 0.3 %; Eosinophils # (A) 0.04 X 10*3/uL (0.04-0.35); Eosinophils % (A) 0.6 %; HCT 25.7 % (37.2-46.3); HGB 7.9 g/dL (12.0-15.0); Immature Grans, Automated 1.8 %; Lymphocytes # (A) 1.58 X 10*3/uL (0.90-5.00); Lymphocytes % (A) 23.5 %; MCH 24.2 pg (27.0-32.0); MCHC 30.7 g/dL (32.0-37.0); MCV 78.6 fL (80.0-97.0); Mean Platelet Volume 10.7 fL (9.5-12.2); Monocytes # (A) 1.66 X 10*3/uL (0.20-1.00); Monocytes % (A) 24.7 %; NRBC Per 100 WBC 0.9 /100 WBCS (0.0-0.0); Neutrophils % (A) 49.1 %; Platelet Count 316 X 10*3/uL (140-440); RBC 3.27 X 10*6/uL (4.10-5.20); RDW 19.1 % (11.5-14.5); WBC 6.72 X 10*3/uL (4.50-10.00)
[2022-05-09 11:06] LABS: African American GFR (CKD) 17.6 (60.0-200.0); Albumin/Globulin Ratio 0.86 (1.60-3.17); Anion Gap 16.6 mmol/L (10.00-18.00); BUN/Creat Ratio 14.71 Ratio (12.00-20.00); Blood Urea Nitrogen 45.6 mg/dL (9.0-27.0); Calcium 8.8 mg/dL (8.7-10.3); Carbon Dioxide 15.4 mmol/L (20.0-27.5); Globulin 3.5 g/dL (1.6-3.3); Non-African American GFR(CKD) 15.1 (60.0-200.0); Potassium 5.4 mmol/L (3.5-5.5); Total Bilirubin 0.3 mg/dL (0.30-1.20); Total Protein 6.5 g/dL (6.2-8.2)
[2022-05-09] MEDS ORDERED: PIPERACILLIN-TAZOBACTAM 3.375 GM in SODIUM CHLORIDE 0.9% 100 ML IVPB SCH (16:00)
--- NOTE | 2022-05-09 17:12 | P.CNPUL ---
History of Present Illness Consult date: 05/09/22 Reason for consult: dyspnea, cough Chief complaint: Shortness of breath History of present illness: Patient is a 62-year-old female came into the hospital with right arm swelling she was recently hospitalized for pneumonia she also has contracted extremities underwent pump placement for baclofen and morphine patient has been more somnolent also has ongoing problem of nausea and vomiting and inability to tolerate the pain medications. Patient is mostly nonverbal and noncommunicative daughter is present at the bedside who is a source of information, past medical history significant for CVA/TIA, dyslipidemia, hypertension hypertensive cardiovascular disease, chronic anemia, left-sided weakness and lower extremity weakness due to stroke, gout, pancreatitis, so the seizures, history of multiple brain aneurysms requiring quite ill and stent placement. Pain pump was inserted on 04/21/2022. Patient has extensive history of smoking and nicotine use quit about 8 years ago used to smoke one to 2 packs per day Of arrival she was tachypneic and tachycardic heart rate is 120 also hypertensive blood pressure 160/90 saturation 92% her right was swelling. Patient received Narcan. Patient was negative for coronary influenza, chest x-ray showed interstitial edema, patient was started on Keflex and Zithromax, also received Narcan, she was found to have acute kidney disease with BUN/creatinine of 52/3.83, troponin were less than 0.012, potassium was 5.3. Duplex ultrasound the right upper extremity negative for DVT. Computed tomography scan of the head significant for cerebral atrophy along with a right hemispheric infarct. VQ scan is very low probability for PE homogenous distribution of tracer bilaterally in the lungs noted no discrete perfusion defects seen. Computed tomography scan without contrast small tiny bilateral effusions seen along with groundglass attenuation slightly worse. Currently patient has been treated with Zosyn along with Zithromax swelling in the right upper extremity significant improvement appears to be related to prior IV axis in the hand Review of Systems ROS unobtainable: due to mental status Past Medical History Past Medical History: CVA/TIA, Hyperlipidemia, Hypertension, Osteoarthritis (OA) Additional Past Medical History / Comment(s): ANEMIA, CVA WITH L ARM WEAKNESS AND bilateral LEG WEAKNESS, hx. gout, PANCREATITIS, pseudoseizures, UTI, gallstones, tremors, hx multiple brain aneursyms History of Any Multi-Drug Resistant Organisms: None Reported Date of last positivie culture/infection: 03/18/18 ESBL E.coli MDRO Source:: Urine Past Surgical History: Section, Cholecystectomy, Orthopedic Surgery Additional Past Surgical History / Comment(s): hx aneurysms- COILS AND STENTS TO BRAIN, repair tendons r/t gout BILATERAL FEET; Pain pump inserted on 04/21/22 Past Anesthesia/Blood Transfusion Reactions: No Reported Reaction Additional Past Anesthesia/Blood Transfusion Reaction / Comment(s): PT HAS HAD BLOOD TRANSFUSIONS FOR ANEMIA-NO REACTION. Past Psychological History: Anxiety, Depression, Schizophrenia Additional Psychological History / Comment(s): paranoid schizophrenia Smoking Status: Former smoker Additional Past Alcohol Use History / Comment(s): Stopped smoking 2012 or 2013 - Past Family History Sister(s) Family Medical History: Myocardial Infarction ([place]) Father Family Medical History: Cancer Additional Family Medical History / Comment(s): throat, lung, and rectal cancer Mother Family Medical History: Myocardial Infarction ([place]) Additional Family Medical History / Comment(s): stroke Medications and Allergies Home Medications Medication Instructions Recorded Confirmed Type Aspirin EC [Ecotrin Low Dose] 81 mg PO DAILY 04/12/16 05/08/22 History Metoprolol Tartrate 100 mg PO BID 01/04/17 05/08/22 History Sertraline [Zoloft] 100 mg PO DAILY 01/04/17 05/08/22 History Omeprazole [PriLOSEC] 20 mg PO DAILY 02/09/20 05/08/22 History Atorvastatin [Lipitor] 20 mg PO HS #30 tab 02/13/20 05/08/22 Rx Divalproex [Depakote] 500 mg PO BID 02/20/22 05/08/22 History Levothyroxine Sodium [Synthroid] 75 mcg PO DAILY 02/20/22 05/08/22 History Sertraline [Zoloft] 25 mg PO DAILY 02/20/22 05/08/22 History Divalproex [Depakote] 250 mg PO HS 04/24/22 05/08/22 History HYDROcodone/APAP 5-325MG [[place] 1 tab PO Q4H PRN 04/24/22 05/08/22 History 5-325] Lacosamide [Vimpat] 100 mg PO BID 30 Days #60 tab 04/29/22 05/08/22 Rx risperiDONE [RisperDAL] 1 mg PO HS 30 Days #30 tab 04/29/22 05/08/22 Rx Morphine Pain Pump 1 dose MISCELLANE DIRECTED 05/08/22 05/08/22 History Ondansetron Odt [Zofran ODT] 4 mg PO TID 05/08/22 05/08/22 History Allergies Allergy/AdvReac Type Severity Reaction Status Date / Time No Known Allergies Allergy Verified 05/08/22 09:48 Physical Exam Vitals: Vital Signs Temp Pulse Resp BP Pulse Ox 05/09/22 14:00 98.2 F 79 11 L 141/75 96 05/09/22 08:00 97.6 F 114 H 104/65 97 05/08/22 19:59 97.7 F 46 L 16 116/78 92 L Intake and Output 05/09/22 05/09/22 05/09/22 06:59 14:59 22:59 Intake Total 240 450 Output Total 400 Balance -160 450 Intake: Oral 240 450 Output: Urine 400 Other: Voiding Method External Catheter # Voids 1 # Bowel Movements 1 - Constitutional General appearance: average body habitus, disheveled, mild distress - EENT Eyes: EOMI, PERRLA ENT: normal oropharynx Ears: bilateral: normal - Neck Carotids: bilateral: upstroke normal Thyroid: bilateral: normal size - Respiratory Respiratory: bilateral: diminished - Cardiovascular Rhythm: regular Heart sounds: normal: S1, S2 - Gastrointestinal General gastrointestinal: soft - Neurologic Contracted unable to examine neurological status at length but appears to be on the left side due to prior stroke with contractured Results - Laboratory Findings CBC and BMP: 05/09/22 07:50 05/09/22 07:50 PT/INR, D-dimer PT 10.8 sec (9.0-12.0) 05/07/22 22:15 INR 1.0 (<1.2) 05/07/22 22:15 D-Dimer 2.15 mg/L FEU (<0.60) H 05/07/22 22:15 Abnormal lab findings: Abnormal Labs 05/07/22 05/07/22 05/07/22 22:15 22:15 22:15 RBC 3.74 L Hgb 9.1 L Hct 29.4 L MCV 78.7 L MCH 24.3 L MCHC 30.8 L RDW 18.0 H Absolute Nucleated RBC Immature Gran # Monocytes # NRBC/100 WBC Diff D-Dimer 2.15 H Potassium 5.3 H Chloride Carbon Dioxide 17 L BUN 52 H Creatinine 3.83 H Est GFR (CKD-EPI)AfAm Est GFR (CKD-EPI)NonAf Glucose 115 H AST 40 H Creatine Kinase Albumin 3.3 L Globulin Albumin/Globulin Ratio Urine Appearance Urine Protein Urine Ketones Urine Blood Ur Leukocyte Esterase Urine RBC Urine WBC Urine Bacteria Urine Mucus 05/07/22 05/08/22 05/09/22 22:52 03:54 07:50 RBC 3.27 L Hgb 7.9 L Hct 25.7 L MCV 78.6 L MCH 24.2 L MCHC 30.7 L RDW 19.1 H Absolute Nucleated RBC 0.06 H Immature Gran # 0.12 H Monocytes # 1.66 H NRBC/100 WBC Diff 0.9 H D-Dimer Potassium Chloride Carbon Dioxide BUN Creatinine Est GFR (CKD-EPI)AfAm Est GFR (CKD-EPI)NonAf Glucose AST Creatine Kinase 249 H Albumin Globulin Albumin/Globulin Ratio Urine Appearance Cloudy H Urine Protein Trace H Urine Ketones Trace H Urine Blood Trace H Ur Leukocyte Esterase Moderate H Urine RBC 6 H Urine WBC 16 H Urine Bacteria Rare H Urine Mucus Rare H 05/09/22 07:50 RBC Hgb Hct MCV MCH MCHC RDW Absolute Nucleated RBC Immature Gran # Monocytes # NRBC/100 WBC Diff D-Dimer Potassium Chloride 111 H Carbon Dioxide 15.4 L BUN 45.6 H Creatinine 3.1 H Est GFR (CKD-EPI)AfAm 17.6 L Est GFR (CKD-EPI)NonAf 15.1 L Glucose AST 38 H Creatine Kinase Albumin 3.0 L Globulin 3.5 H Albumin/Globulin Ratio 0.86 L Urine Appearance Urine Protein Urine Ketones Urine Blood Ur Leukocyte Esterase Urine RBC Urine WBC Urine Bacteria Urine Mucus - Diagnostic Findings Chest x-ray: report reviewed, image reviewed CT scan - chest: report reviewed, image reviewed (As noted above) Assessment and Plan Assessment: Acute hypoxic respiratory failure due to bilateral healthcare associated pneumonia, continue Zosyn and Zithromax, continue supplemental oxygen, Acute on chronic kidney disease 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
[2022-05-09] MEDS: PIPERACILLIN-TAZOBACTAM 3.375 GM in SODIUM CHLORIDE 0.9% 100 ML IVPB SCH (17:47)
[2022-05-09] MEDS: ATORVASTATIN 20 MG TAB PO SCH (23:03)
[2022-05-09] MEDS: DIVALPROEX 250 MG TABLET.DR PO SCH (23:08)
--- NOTE | 2022-05-10 01:35 | HP ---
HISTORY AND PHYSICAL HISTORY OF PRESENT ILLNESS: A 62-year-old female, swelling, altered mental status, edema, hypoxemia on admission. She has been recently treated with aspiration pneumonia and dehydration and she had a morphine pump placed in, may be contributing to her somnolence, but I do not think so with drinking fluids and just generally weakened, she will probably need a senior living placement, possibly pneumonia. HOME MEDICINES: 1. Aspirin 81 daily. 2. Metoprolol 100 b.i.d. 3. Zoloft 200 daily. 4. Prilosec 20 daily. 5. Depakote 500 b.i.d. 6. Synthroid 75 daily. 7. Zoloft 25 daily. 8. Depakote 250 at night. 9. [place] 5/325 every 4 hours p.r.n. 10.Morphine pump p.r.n. ALLERGIES: Negative. PAST MEDICAL HISTORY: CVA, TIA, dyslipidemia, hypertension, osteoarthritis. PAST SURGICAL HISTORY: , cholecystectomy, orthopedic surgery. depression, schizophrenia. Sister, myocardial infarction. Father; cancer, throat, lung, and rectal. Mother, myocardial infarction, stroke. PHYSICAL EXAMINATION: GENERAL: She opens her eyes, gives appropriate answers, but then goes back to sleep. She is sleepy, lethargic. INTEGUMENT: Dry skin, turgor. Dry mucous membranes. RESPIRATORY: Mild wheezes, rhonchi. CARDIOVASCULAR: S1, S2. EXTREMITIES: 2+ edema. NEUROLOGIC: Sleepy, somnolent; but she gives appropriate answers. PSYCH: Appropriate answers. I have known for years. VITAL SIGNS: Blood pressure is 157/93, O2 is 92, pulse is , respiratory rate 18 to 22. EKG shows sinus tachycardia. ASSESSMENT: Tachycardia, hypoxemia, possible recurrence of aspiration pneumonia, dehydration. She has pain pump in place, but I do not think her somnolence is due to that. D-dimer is elevated, so we can do a V/Q scan. We can do a CTA due to elevated creatinine. She has some interstitial pneumonia. We will do a CT scan without contrast to check for that. Broad-spectrum antibiotics. Pulmonary consult. Check for pulmonary embolism and DVT in the legs, which apparently was negative. Prognosis is guarded. Possibly a senior living placement will be needed. MMODL / IJN: [id number] /
[2022-05-10] MEDS: NALOXONE 0.4 MG/ML 1 ML VIAL IV PRN ×6 (02:12→21:55)
[2022-05-10] MEDS ORDERED: levETIRAcetam IV 750 MG in SODIUM CHLORIDE 0.9% 100 ML IVPB ONE (04:00)
[2022-05-10] MEDS: PIPERACILLIN-TAZOBACTAM 3.375 GM in SODIUM CHLORIDE 0.9% 100 ML IVPB SCH ×2 (05:03→16:43)
[2022-05-10] MEDS: SODIUM CHLORIDE 0.9% 1,000 ML IV SCH ×3 (05:20→21:26)
[2022-05-10] MEDS: LEVOTHYROXINE 75 MCG TAB PO SCH (05:21)
--- NOTE | 2022-05-10 08:38 | P.CONS ---
History of Present Illness - Reason for Consult Consult date: 05/09/22 Community-acquired Pneumonia Requesting physician: Mohit Harley - Chief Complaint Right hand and wrist swelling x few days - History of Present Illness Patient is a 62-year-old -[place] female with recent multiple admission to the hospital patient was brought into the ER last night for evaluation of right hand and forearm swelling symptoms started due to before presentation to the hospital it is not very clear if the patient did have an IV at that site the patient was recently admitted at this facility patient apparently also have recently morphine pain pump placed and the family has been concerned that the patient has been less responsive and not eating or drinking patient on presentation to the hospital was afebrile and no fever have been recorded subs equently patient did have a normal white count hemoglobin slightly low patient did have elevated BUN and creatinine levels and has been normal urine has been positive influenza and COVID testing were negative patient did have a chest x- ray interstitial pneumonia that is worse on the left side and not significant different from the last exam patient also have a CT of the chest bilateral multifocal and confluent groundglass opacity more prominent from prior CT concerning for worsening infection patient did have a lung perfusion study low probability for PE patient was started on Zithromax and Zosyn infectious disease was consulted for further management of antibiotic therapy most information has been obtained from review the chart and talking to the daughter as the patient herself not really good historian she did have a necrotic blister on the right heel that seem to have fallen off with no residual wound to the right heel area however has developed a deep tissue injury on the medial aspect of the right heel since her last visit Review of Systems Positive point has been mentioned in the HPI rest of the systems are negative Past Medical History Past Medical History: CVA/TIA, Hyperlipidemia, Hypertension, Osteoarthritis (OA) Additional Past Medical History / Comment(s): ANEMIA, CVA WITH L ARM WEAKNESS AND bilateral LEG WEAKNESS, hx. 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 Past Psychological History: Anxiety, Depression, Schizophrenia Additional Psychological History / Comment(s): paranoid schizophrenia Smoking Status: Former smoker Additional Past Alcohol Use History / Comment(s): Stopped smoking 2012 or 2013 - Past Family History Sister(s) Family Medical History: Myocardial Infarction ([place]) Father Family Medical History: Cancer Additional Family Medical History / Comment(s): throat, lung, and rectal cancer Mother Family Medical History: Myocardial Infarction ([place]) Additional Family Medical History / Comment(s): stroke Medications and Allergies Home Medications Medication Instructions Recorded Confirmed Type Aspirin EC [Ecotrin Low Dose] 81 mg PO DAILY 04/12/16 05/08/22 History Metoprolol Tartrate 100 mg PO BID 01/04/17 05/08/22 History Sertraline [Zoloft] 100 mg PO DAILY 01/04/17 05/08/22 History Omeprazole [PriLOSEC] 20 mg PO DAILY 02/09/20 05/08/22 History Atorvastatin [Lipitor] 20 mg PO HS #30 tab 02/13/20 05/08/22 Rx Divalproex [Depakote] 500 mg PO BID 02/20/22 05/08/22 History Levothyroxine Sodium [Synthroid] 75 mcg PO DAILY 02/20/22 05/08/22 History Sertraline [Zoloft] 25 mg PO DAILY 02/20/22 05/08/22 History Divalproex [Depakote] 250 mg PO HS 04/24/22 05/08/22 History HYDROcodone/APAP 5-325MG [[place] 1 tab PO Q4H PRN 04/24/22 05/08/22 History 5-325] Lacosamide [Vimpat] 100 mg PO BID 30 Days #60 tab 04/29/22 05/08/22 Rx risperiDONE [RisperDAL] 1 mg PO HS 30 Days #30 tab 04/29/22 05/08/22 Rx Morphine Pain Pump 1 dose MISCELLANE DIRECTED 05/08/22 05/08/22 History Ondansetron Odt [Zofran ODT] 4 mg PO TID 05/08/22 05/08/22 History Allergies Allergy/AdvReac Type Severity Reaction Status Date / Time No Known Allergies Allergy Verified 05/08/22 09:48 Physical Exam Vitals: Vital Signs Temp Pulse Pulse Resp BP BP Pulse Ox 05/09/22 08:00 97.6 F 114 H 104/65 97 05/08/22 19:59 97.7 F 46 L 16 116/78 92 L 05/08/22 16:00 89 18 106/84 98 Intake and Output 05/08/22 05/09/22 05/09/22 22:59 06:59 14:59 Intake Total 240 450 Output Total 400 Balance -160 450 Intake: Oral 240 450 Output: Urine 400 Other: Voiding Method External Catheter # Voids 1 # Bowel Movements 1 GENERAL DESCRIPTION: Elderly female lying in bed, no distress. No tachypnea or accessory muscle of respiration use. HEENT: Shows Pallor , no scleral icterus. Oral mucous membrane is dry. No pharyngeal erythema or thrush NECK: Trachea central, no thyromegaly. LUNGS: Unlabored breathing. Decreased breath sounds at the base. No wheeze or crackle. HEART: S1, S2, regular rate and rhythm. No loud murmur ABDOMEN: Soft, no tenderness , guarding or rigidity, no organomegaly EXTREMITIES: Right wrist and hand area with swelling no significant redness or drainage SKIN: No rash, no masses palpable. NEUROLOGICAL: The patient is awake, alert, oriented x3, mood and affect normal. Results CBC & Chem 7: 05/16/22 05:42 05/16/22 05:42 Labs: Abnormal Lab Results - Last 24 Hours (Table) 05/09/22 05/09/22 Range/Units 07:50 07:50 RBC 3.27 L (4.10-5.20) X 10*6/uL Hgb 7.9 L (12.0-15.0) g/dL Hct 25.7 L (37.2-46.3) % MCV 78.6 L (80.0-97.0) fL MCH 24.2 L (27.0-32.0) pg MCHC 30.7 L (32.0-37.0) g/dL RDW 19.1 H (11.5-14.5) % Absolute Nucleated RBC 0.06 H (0.00-0.00) X 10*3/uL Immature Gran # 0.12 H (0.00-0.04) X 10*3/uL Monocytes # 1.66 H (0.20-1.00) X 10*3/uL NRBC/100 WBC Diff 0.9 H (0.0-0.0) /100 WBCS Chloride 111 H (96-109) mmol/L Carbon Dioxide 15.4 L (20.0-27.5) mmol/L BUN 45.6 H (9.0-27.0) mg/dL Creatinine 3.1 H (0.6-1.5) mg/dL Est GFR (CKD-EPI)AfAm 17.6 L (60.0-200.0) Est GFR (CKD-EPI)NonAf 15.1 L (60.0-200.0) AST 38 H (13-35) U/L Albumin 3.0 L (3.8-4.9) g/dL Globulin 3.5 H (1.6-3.3) g/dL Albumin/Globulin Ratio 0.86 L (1.60-3.17) g/dL Microbiology - Last 24 Hours (Table) 05/08/22 03:54 Urine Culture - Preliminary Urine,Voided Gram Neg Bacilli 05/07/22 22:30 Blood Culture - Preliminary Blood No Growth after 24 hours Assessment and Plan (1) Pneumonia Current Visit: No Status: Acute Code(s): J18.9 - PNEUMONIA, UNSPECIFIED ORGANISM SNOMED Code(s): 160968890 (2) UTI (urinary tract infection) Current Visit: No Status: Acute Code(s): N39.0 - URINARY TRACT INFECTION, SITE NOT SPECIFIED SNOMED Code(s): 92519671 Plan: 1patient presented to hospital with a right hand forearm swelling and redness with a question of possible cellulitis to the right forearm area from the previous IV site versus thrombophlebitis in this patient currently with no fever or elevated white count will benefit from a Doppler ultrasound of the right upper arm. 2patient with a worsening finding on the chest x-ray and CT concerning for possible aspiration pneumonia. 3positive UA concerning for a UTI from gram-negative pathogen in this patient very hard to get any history as far as urinary symptoms. 4patient to continue with Zosyn while waiting for the culture to finalize however discontinue Zithromax. 5obtain a sputum for gram stain culture check a CRP and a procalcitonin. We will follow on clinical condition and cultures to further adjust medication if needed Thank you for this consultation will follow this patient along with you Time with Patient: Greater than 30
[2022-05-10] MEDS: levETIRAcetam IV 500 MG in SODIUM CHLORIDE 0.9% 100 ML IVPB SCH (09:30)
[2022-05-10] MEDS: METOPROLOL TARTRATE 25 MG TAB PO SCH (09:31)
[2022-05-10] MEDS: LACOSAMIDE 50 MG TABLET PO SCH (09:31)
--- NOTE | 2022-05-10 10:32 | PN ---
PROGRESS NOTE SUBJECTIVE: A 62-year-old female. She is still feeling better. She has been rehydrated. Her BUN and creatinine are slowly improving, started on Rocephin and azithromycin for interstitial pneumonia. CAT scan is pending. Low probability V/Q scan. Mental status slightly improved. OBJECTIVE: MUSCULOSKELETAL: She has a very poor strength in all extremities. CARDIOVASCULAR: S1, S2. LUNGS: Mild scattered wheeze. HEMATOLOGY: Negative for [place]. ASSESSMENT: Bilateral pneumonia, altered mental status secondary to pneumonia, metabolic encephalopathy, seizure disorder, dehydration. Prognosis guarded. May need rehab placement. MMODL / IJN: [id number] /
[2022-05-10] MEDS: ASPIRIN 81 MG PO SCH (11:27)
[2022-05-10] MEDS: PANTOPRAZOLE 40 MG TABLET PO SCH (11:28)
--- NOTE | 2022-05-10 12:26 | P.PN ---
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 Chronic pain syndrome due to muscle spasm status post pump in March 2022 Large right hemispheric parietal stroke Bedbound status Right upper extremity swelling due to prior IV axis no evidence of DVTs maintain patient on DVT prophylaxis, continue deep breathing exercises incentive spirometry monitor observe renal functions closely 05/10/2022, patient seen eval examined overall respiratory status remained stable, however he still short of breath with minimal activity in next exertion, she remains on 2 L oxygen, patient remains afebrile and hemodynamically stable intermittent tachycardia is present, T-max is 99, urine culture came back positive for pseudomonas aeruginosa, sensitive to Zosyn, Patient is a 62-year-old female came into the hospital with right arm swelling she was recently hospitalized for pneumonia she also has contracted extremities underwent pump placement for baclofen and morphine patient has been more somnolent also has ongoing problem of nausea and vomiting and inability to tolerate the pain medications. Patient is mostly nonverbal and noncommunicative daughter is present at the bedside who is a source of information, past medical history significant for CVA/TIA, dyslipidemia, hypertension hypertensive cardiovascular disease, chronic anemia, left-sided weakness and lower extremity weakness due to stroke, gout, pancreatitis, so the seizures, history of multiple brain aneurysms requiring quite ill and stent placement. Pain pump was inserted on 04/21/2022. Patient has extensive history of smoking and nicotine use quit about 8 years ago used to smoke one to 2 packs per day Of arrival she was tachypneic and tachycardic heart rate is 120 also hypertensive blood pressure 160/90 saturation 92% her right was swelling. Patient received Narcan. Patient was negative for coronary influenza, chest x-ray showed interstitial edema, patient was started on Keflex and Zithromax, also received Narcan, she was found to have acute kidney disease with BUN/creatinine of 52/3.83, troponin were less than 0.012, potassium was 5.3. Duplex ultrasound the right upper extremity negative for DVT. Computed tomography scan of the head significant for cerebral atrophy along with a right hemispheric infarct. VQ scan is very low probability for PE homogenous distribution of tracer bilaterally in the lungs noted no discrete perfusion defects seen. Computed tomography scan without contrast small tiny bilateral effusions seen along with groundglass attenuation slightly worse. Currently patient has been treated with Zosyn along with Zithromax swelling in the right upper extremity significant improvement appears to be related to prior IV axis in the hand Objective - Vital Signs Vital signs: Vital Signs Temp 99.6 F 05/10/22 07:15 Pulse 127 H 05/10/22 07:15 Resp 10 L 05/10/22 11:44 BP 118/74 05/10/22 07:15 Pulse Ox 99 05/10/22 07:15 FiO2 Intake & Output 05/09/22 05/10/22 05/10/22 18:59 06:59 18:59 Intake Total 2000 Output Total 300 Balance 2000 -300 Intake: Intake, IV Titration 1550 Amount Azithromycin 500 mg In 250 Sodium Chloride 0.9% 250 ml @ 250 mls/hr IVPB DAILY [facility] Rx#:[id number] Sodium Chloride 0.9% 1, 1300 000 ml @ 130 mls/hr IV . Q7H42M [facility] Rx#:[id number] Oral 450 Output: Urine 300 Other: Voiding Method External Catheter External Catheter External Catheter - Exam - Constitutional General appearance: average body habitus, disheveled, mild distress - EENT Eyes: EOMI, PERRLA ENT: normal oropharynx Ears: bilateral: normal - Neck Carotids: bilateral: upstroke normal Thyroid: bilateral: normal size - Respiratory Respiratory: bilateral: diminished - Cardiovascular Rhythm: regular Heart sounds: normal: S1, S2 - Gastrointestinal General gastrointestinal: soft - Neurologic Contracted unable to examine neurological status at length but appears to be on the left side due to prior stroke with contractured - Labs CBC & Chem 7: 05/09/22 07:50 05/09/22 07:50 Labs: Abnormal Lab Results - Last 24 Hours (Table) 05/10/22 Range/Units 05:50 C-Reactive Protein 7.0 H (<1.0) mg/dL Microbiology - Last 24 Hours (Table) 05/08/22 03:54 Urine Culture - Final Urine,Voided Pseudomonas aeruginosa 05/07/22 22:30 Blood Culture - Preliminary Blood No Growth after 48 hours Assessment and Plan Assessment: Urinary tract infection with Pseudomonas aeruginosa sensitive to Zosyn, will continue it Acute hypoxic respiratory failure due to bilateral healthcare associated pneumonia, continue Zosyn and Zithromax, continue supplemental oxygen, Acute on chronic kidney disease 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
--- NOTE | 2022-05-10 13:03 | P.CRDCN ---
History of Present Illness Consult date: 05/10/22 Reason for Consult (text): Tachycardia History of present illness: This is Tevin Parnell NP, I'm dictating on behalf of Dr. Reaves's H&P and A&P The patient was interviewed and examined. HPI: We were consulted on this pleasant 62-year-old female for tachycardia. Patient was initially brought to the hospital with complaint of right arm sw elling. Apparently the edema started a few days ago, and the patient was also found to be hypoxic. Patient is normally bed bound and contracted per her baseline. Patient also had a recent morphine pump placed. She has been much less mentally engaged since placement of the pump. She also has not been eating and drinking adequately. Patient has a pertinent past medical history includes CVA, hyperlipidemia, hypertension, anemia, and multiple brain aneurysms. Patient appears to be in no acute distress at this time. She has continued to demonstrate sinus tachycardia in the 1 teens to 120s. The patient is nonverbal. ROS: [No fever, chills, or rigors] [no cough, phlegm, or expectoration] [no nausea, vomiting, or diarrhea] [no hematuria, dysuria] [no musculoskelatal complaints] [no strokes or seizures] [no skin lesions] EXAMINATION: GENERAL: Well-appearing, well-nourished and in no acute distress. NECK: Supple without JVD or thyromegaly. LUNGS: Breath sounds clear to auscultation bilaterally. Respiration equal and unlabored. No wheezes, rales or rhonchi. HEART: Regular rate and rhythm without murmurs, rubs or gallops. S1 and S2 heard. EXTREMITIES: Normal range of motion, no edema. No clubbing or cyanosis. Peripheral pulses intact and strong. REVIEW OF LABS, ECG & MEDICAL DATA: LABS: White count 6.7, hemoglobin 7.9, platelets 316, sodium 143, potassium 5.4, B1 45, creatinine 3.1, magnesium 1.6, troponin less than 0.012, BNP 3670 EKG: Sinus tachycardia IMAGING: Chest x-ray dated 05/07/2020 to demonstrate some interstitial pneumonia that is worse in the left side and not significantly different than last exam. This could be pulmonary fibrosis. Acute pneumonia not excluded. No obvious heart failure; venous Doppler of the right upper extremity dated 05/07/2022 demonstrates no evidence of deep vein thrombosis in the right arm. There is limited superficial vein thrombosis in the cephalic vein at the elbow; CT of the brain dated 05/07/2022 demonstrates large old right hemispheric infarct. Cerebral atrophy. No acute intracranial abnormality. No change compared to old exam; pulmonary perfusion imaging dated 05/08/2022 demonstrates very low probability for pulmonary embolus; CT of the chest dated 05/08/2022 demonstrates bilateral multifocal and confluent ground glass opacities more prominent from prior CT consistent with worsening infection and/or edema. Stable tiny bilateral pleural effusions are noted. VITALS: Temp 99.6, pulse 127, respirations 14, blood pressure 118/74, O2 saturation 99% on 2 L via nasal cannula IMPRESSION: 1. Sinus tachycardia, likely multiple etiologies 2. Acute kidney injury 3. Elevated d-dimer, negative VQ scan 4. Altered mental status, patient's baseline 5. Hypertension, controlled PLAN: There are multiple possible sources of her tachycardia. Check TSH. Will increase metoprolol to 50 mg twice a day. Ensure adequate fluid intake. Monitor hemoglobin. Monitor temperature. Further recommendations based on patient's clinical course. Thank you for the consult and allowing us to participate in the care of this patient. 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 gout, PANCREATITIS, pseudoseizures, UTI, gallstones, tremors, hx multiple brain aneursyms History of Any Multi-Drug Resistant Organisms: None Reported Date of last positivie culture/infection: 03/18/18 ESBL E.coli MDRO Source:: Urine Past Surgical History: Section, Cholecystectomy, Orthopedic Surgery Additional Past Surgical History / Comment(s): hx aneurysms- COILS AND STENTS TO BRAIN, repair tendons r/t gout BILATERAL FEET; Pain pump inserted on 04/21/22 Past Anesthesia/Blood Transfusion Reactions: No Reported Reaction Additional Past Anesthesia/Blood Transfusion Reaction / Comment(s): PT HAS HAD BLOOD TRANSFUSIONS FOR ANEMIA-NO REACTION. Past Psychological History: Anxiety, Depression, Schizophrenia Additional Psychological History / Comment(s): paranoid schizophrenia Smoking Status: Former smoker Additional Past Alcohol Use History / Comment(s): Stopped smoking 2012 or 2013 - Past Family History Sister(s) Family Medical History: Myocardial Infarction (DC) Father Family Medical History: Cancer Additional Family Medical History / Comment(s): throat, lung, and rectal cancer Mother Family Medical History: Myocardial Infarction (DC) Additional Family Medical History / Comment(s): stroke Medications and Allergies Home Medications Medication Instructions Recorded Confirmed Type Aspirin EC [Ecotrin Low Dose] 81 mg PO DAILY 04/12/16 05/08/22 History Metoprolol Tartrate 100 mg PO BID 01/04/17 05/08/22 History Sertraline [Zoloft] 100 mg PO DAILY 01/04/17 05/08/22 History Omeprazole [PriLOSEC] 20 mg PO DAILY 02/09/20 05/08/22 History Atorvastatin [Lipitor] 20 mg PO HS #30 tab 02/13/20 05/08/22 Rx Divalproex [Depakote] 500 mg PO BID 02/20/22 05/08/22 History Levothyroxine Sodium [Synthroid] 75 mcg PO DAILY 02/20/22 05/08/22 History Sertraline [Zoloft] 25 mg PO DAILY 02/20/22 05/08/22 History Divalproex [Depakote] 250 mg PO HS 04/24/22 05/08/22 History HYDROcodone/APAP 5-325MG [[place] 1 tab PO Q4H PRN 04/24/22 05/08/22 History 5-325] Lacosamide [Vimpat] 100 mg PO BID 30 Days #60 tab 04/29/22 05/08/22 Rx risperiDONE [RisperDAL] 1 mg PO HS 30 Days #30 tab 04/29/22 05/08/22 Rx Morphine Pain Pump 1 dose MISCELLANE DIRECTED 05/08/22 05/08/22 History Ondansetron Odt [Zofran ODT] 4 mg PO TID 05/08/22 05/08/22 History Allergies Allergy/AdvReac Type Severity Reaction Status Date / Time No Known Allergies Allergy Verified 05/08/22 09:48 Physical Exam Vitals: Vital Signs Temp Pulse Resp BP Pulse Ox 05/10/22 11:44 10 L 05/10/22 07:15 99.6 F 127 H 14 118/74 99 05/10/22 04:13 115 H 05/10/22 02:35 97.5 F L 120 H 18 120/72 100 05/10/22 02:27 16 05/10/22 02:21 13 05/10/22 02:20 13 05/10/22 02:12 98.6 F 107 H 6 L 92/56 99 05/10/22 01:00 97 05/09/22 20:00 98.7 F 115 H 18 101/59 97 05/09/22 14:00 98.2 F 79 11 L 141/75 96 Intake and Output 05/09/22 05/10/22 05/10/22 22:59 06:59 14:59 Intake Total 1550 Output Total 300 Balance 1550 -300 Intake: Intake, IV Titration 1550 Amount Azithromycin 500 mg In 250 Sodium Chloride 0.9% 250 ml @ 250 mls/hr IVPB DAILY [facility] Rx#:[id number] Sodium Chloride 0.9% 1, 1300 000 ml @ 130 mls/hr IV . Q7H42M [facility] Rx#:[id number] Output: Urine 300 Other: Voiding Method External Catheter External Catheter Results 05/09/22 07:50 05/09/22 07:50 Current Medications Generic Name Dose Route Start Last Admin Trade Name Freq PRN Reason Stop Dose Admin Aspirin 81 mg 05/09/22 09:00 05/10/22 11:27 Aspirin 81 Mg PO Not Given DAILY [facility] Atorvastatin Calcium 20 mg 05/08/22 21:00 05/09/22 23:03 Atorvastatin 20 Mg Tab PO Not Given HS [facility] Sodium Chloride 1,000 mls @ 130 mls/hr 05/07/22 23:15 05/10/22 05:20 Saline 0.9% IV 130 mls/hr .Q7H42M [facility] Administration Piperacillin Sod/Tazobactam 100 mls @ 25 mls/hr 05/09/22 16:00 05/10/22 05:03 Sod 3.375 gm/ Sodium Chloride IVPB 25 mls/hr Q12H [facility] Administration Protocol Levetiracetam 500 mg/ Sodium 105 mls @ 400 mls/hr 05/10/22 09:00 05/10/22 09:30 Chloride IVPB 400 mls/hr Q24HR [facility] Administration Levetiracetam 750 mg/ Sodium 107.5 mls @ 400 mls/hr 05/10/22 21:00 Chloride IVPB Q24H [facility] Lacosamide 100 mg 05/08/22 21:00 05/10/22 09:31 Lacosamide 50 Mg Tablet PO 100 mg BID [facility] Administration Levothyroxine Sodium 75 mcg 05/09/22 06:30 05/10/22 05:21 Levothyroxine 75 Mcg Tab PO Not Given 0630 [facility] Metoprolol Tartrate 50 mg 05/10/22 21:00 Metoprolol Tartrate 50 Mg Tab PO BID [facility] Naloxone HCl 0.2 mg 05/07/22 23:58 05/10/22 11:44 Naloxone 0.4 Mg/Ml 1 Ml Vial IV 0.2 mg Q2M PRN Administration Opioid Reversal Ondansetron HCl 4 mg 05/08/22 00:07 Ondansetron 4 Mg/2 Ml Vial IVP Q8HR PRN Nausea Pantoprazole Sodium 40 mg 05/10/22 11:30 Pantoprazole 40 Mg/10 Ml Vial IVP DAILY [facility] Intake and Output 05/09/22 05/10/22 05/10/22 22:59 06:59 14:59 Intake Total 1550 Output Total 300 Balance 1550 -300 Intake: Intake, IV Titration 1550 Amount Azithromycin 500 mg In 250 Sodium Chloride 0.9% 250 ml @ 250 mls/hr IVPB DAILY [facility] Rx#:[id number] Sodium Chloride 0.9% 1, 1300 000 ml @ 130 mls/hr IV . Q7H42M [facility] Rx#:[id number] Output: Urine 300 Other: Voiding Method External Catheter External Catheter 05/09/22 07:50 05/09/22 07:50
--- NOTE | 2022-05-10 16:57 | P.PN ---
Progress Note - Text Progress Note Date: 05/10/22 I'm rounding for Dr. Mohit Harley: This is a 62-year-old patient who follows with Dr. Mohit Harley. Chronic stable medical conditions include hyperlipidemia, hypertension, osteoarthritis, gout, history of multiple brain aneurysms. Patient's had a prior stroke with contracture of the left arm and weakness of lower extremity left greater than right. Patient does not ambulate. Patient was admitted with some swelling of the right arm. Had a morphine pain pump placed about a week ago by Dr. link. Since then patient is lethargic. Tired. Barely eating. 05/10/2022: Patient remains to be lethargic. Arousable but sleepy, speaking slowly. Patient had received Narcan initially. I speak to . He is given instructions for another pain pump, he to come in and shut off the pump. On IV Zosyn for Pseudomonas. Also patient has bilateral pneumonia. Active Medications Aspirin (Aspirin 81 Mg) 81 mg PO DAILY [facility] Last Admin: 05/10/22 11:27 Dose: Not Given Atorvastatin Calcium (Atorvastatin 20 Mg Tab) 20 mg PO HS [facility] Last Admin: 05/09/22 23:03 Dose: Not Given Sodium Chloride (Saline 0.9%) 1,000 mls @ 130 mls/hr IV .Q7H42M [facility] Last Admin: 05/10/22 05:20 Dose: 130 mls/hr Piperacillin Sod/Tazobactam (Sod 3.375 gm/ Sodium Chloride) 100 mls @ 25 mls/hr IVPB Q12H [facility]; Protocol Last Admin: 05/10/22 16:43 Dose: 25 mls/hr Levetiracetam 500 mg/ Sodium (Chloride) 105 mls @ 400 mls/hr IVPB Q24HR [facility] Last Admin: 05/10/22 09:30 Dose: 400 mls/hr Levetiracetam 750 mg/ Sodium (Chloride) 107.5 mls @ 400 mls/hr IVPB Q24H [facility] Lacosamide (Lacosamide 50 Mg Tablet) 100 mg PO BID [facility] Last Admin: 05/10/22 09:31 Dose: 100 mg Levothyroxine Sodium (Levothyroxine 75 Mcg Tab) 75 mcg PO 0630 [facility] Last Admin: 05/10/22 05:21 Dose: Not Given Metoprolol Tartrate (Metoprolol Tartrate 50 Mg Tab) 50 mg PO BID [facility] Naloxone HCl (Naloxone 0.4 Mg/Ml 1 Ml Vial) 0.2 mg IV Q2M PRN PRN Reason: Opioid Reversal Last Admin: 05/10/22 14:26 Dose: 0.2 mg Ondansetron HCl (Ondansetron 4 Mg/2 Ml Vial) 4 mg IVP Q8HR PRN PRN Reason: Nausea Pantoprazole Sodium (Pantoprazole 40 Mg/10 Ml Vial) 40 mg IVP DAILY [facility] Past medical history to include: Stroke with left-sided weakness, hypertension, hyperlipidemia, osteoarthritis, gout, gallstones, multiple brain aneurysms with causes stents to the brain, depression, schizophrenia. Excessive alcohol use in the past. Social history: *Smoke age of 14, 1 pack a day, quit over 20 years ago. Smoked again for a short time and at [place] stopped when a half years ago. Previously used cocaine. None in the last 17 years. Heavy alcohol use in the past. Family history: Cancer of the throat lung rectum Physical examination: VITAL SIGNS: 98.4, 106, 20, 10 7 x 69, 100% on 2 L GENERAL: Laying in bed, lethargic EYES: Pupils equal. Conjunctiva normal. HEENT: External appearance of nose and ears normal, oral cavity grossly normal. Scanty scalp hair NECK: JVD not raised; masses not palpable. HEART: First and second heart sounds are normal; no edema. LUNGS: Respiratory rate normal; decreased breath sounds. ABDOMEN: Soft, nontender, liver spleen not palpable, no masses palpable. PSYCH: Lethargic MUSCULOSKELETAL:No Clubbing/cyanosis;muscles-grossly intact. Contracture of the left arm. Some evidence of OA. Significant contractures INVESTIGATIONS, reviewed in the clinical context: WBC 6.7 hemoglobin 7.9 potassium 5.4. 45.6 creatinine 3.1 CRP 7 pro-calcitonin 0.26 Urine culture: Pseudomonas aeruginosa CT chest: Bilateral infiltrates Assessment and plan: -Bilateral pneumonia suspected gram-negative organism. IV Zosyn -Acute UTI with cystitis from Pseudomonas aeruginosa IV Zosyn -Acute metabolic encephalopathy likely from morphine pain pump put in about a week ago. Patient has been lethargic since then.: Slow to respond , I spoke to him. He is giving details about the company to come in and she also pump. -Chronic medical debility,chronically bedbound -Left hemiparesis from a prior stroke Fall precautions -Anxiety depression not otherwise specified Zoloft -Schizophrenia Abilify 10 mg daily at bedtime -Seizure disorder Keppra, vimpat -GERD Prilosec 20 mg a day -Hypertension Metoprolol 50 mg twice a day -Hyperlipidemia Lipitor 20 mg daily at bedtime -Anemia of CK D Follow CBC -Chronic kidney disease stage III likely nephrosclerosis Follow renal function -Hypothyroid [id number] g per day Pain pump completing contact Dr. Dr Paige. Other medications to continue. IV Zosyn.
[2022-05-10] MEDS: PANTOPRAZOLE 40 MG/10 ML VIAL IVP SCH (17:26)
[2022-05-10] MEDS ORDERED: FUROSEMIDE 10 MG/ML 2 ML VIAL IV ONE (20:41)
[2022-05-10] MEDS: levETIRAcetam IV 750 MG in SODIUM CHLORIDE 0.9% 100 ML IVPB SCH (21:20)
[2022-05-10] MEDS ORDERED: diphenhydrAMINE 50 MG/ML 1 ML VIAL IVP STA (21:46)
[2022-05-10] MEDS: methylPREDNISolone SOD SUCCI 40 MG/ML 1 ML VIAL IV SCH (21:55)
[2022-05-11] MEDS ORDERED: ACETAMINOPHEN TAB 325 MG TAB PO PRN (00:20)
[2022-05-11] MEDS: LACOSAMIDE 50 MG TABLET PO SCH ×3 (01:04→19:38)
[2022-05-11] MEDS: ATORVASTATIN 20 MG TAB PO SCH ×2 (01:04→19:39)
[2022-05-11] MEDS: METOPROLOL TARTRATE 50 MG TAB PO SCH ×3 (03:21→19:39)
[2022-05-11] MEDS: PIPERACILLIN-TAZOBACTAM 3.375 GM in SODIUM CHLORIDE 0.9% 100 ML IVPB SCH ×2 (03:21→17:21)
[2022-05-11] MEDS: SODIUM CHLORIDE 0.9% 1,000 ML IV SCH ×2 (03:22→16:08)
[2022-05-11 07:36] LABS: Glucose,Whole Blood 101 mg/dL (70-110)
--- NOTE | 2022-05-11 09:32 | P.PN ---
Subjective Progress Note Date: 05/10/22 Principal diagnosis: Right-hand swelling question of cellulitis pneumonia and UTI Patient is a 62-year-old -[place] female with multiple comorbidities and recurrent admission to the hospital presented to hospital with a right hand swelling, patient also does have abnormal x-ray concerning for possiblepneumonia and a positive UA concerning for UTI. On today's evaluation that is 05/10/2022, the patient is afebrile patient is sleepy but arousable however not a very good historian no vomiting diarrhea or any other changes reported by the nursing staff Objective - Vital Signs Vital signs: Vital Signs Temp 98.4 F 05/10/22 14:00 Pulse 106 H 05/10/22 14:00 Resp 8 L 05/10/22 14:26 BP 107/69 05/10/22 14:00 Pulse Ox 100 05/10/22 14:00 FiO2 Intake & Output 05/09/22 05/10/22 05/10/22 18:59 06:59 18:59 Intake Total 2000 50 Output Total 300 Balance 2000 -300 50 Intake: Intake, IV Titration 1550 Amount Azithromycin 500 mg In 250 Sodium Chloride 0.9% 250 ml @ 250 mls/hr IVPB DAILY [facility] Rx#:[id number] Sodium Chloride 0.9% 1, 1300 000 ml @ 130 mls/hr IV . Q7H42M [facility] Rx#:[id number] Oral 450 50 Output: Urine 300 Other: Voiding Method External Catheter External Catheter External Catheter - Exam GENERAL DESCRIPTION: Middle-aged female lying in bed in no distress RESPIRATORY SYSTEM: Unlabored breathing , decreased breath sounds at bases HEART: S1 S2 regular rate and rhythm , ABDOMEN: Soft , no tenderness EXTREMITIES: Right hand swelling and redness has decreased - Labs CBC & Chem 7: 05/09/22 07:50 05/09/22 07:50 Labs: Abnormal Lab Results - Last 24 Hours (Table) 05/10/22 05/10/22 Range/Units 05:50 05:50 C-Reactive Protein 7.0 H (<1.0) mg/dL Procalcitonin 0.26 H (0.02-0.09) ng/mL Microbiology - Last 24 Hours (Table) 05/08/22 03:54 Urine Culture - Final Urine,Voided Pseudomonas aeruginosa 05/07/22 22:30 Blood Culture - Preliminary Blood No Growth after 48 hours Assessment and Plan (1) Pneumonia Current Visit: No Status: Acute Code(s): J18.9 - PNEUMONIA, UNSPECIFIED ORG ANISM SNOMED Code(s): 026706358 (2) UTI (urinary tract infection) Current Visit: No Status: Acute Code(s): N39.0 - URINARY TRACT INFECTION, SITE NOT SPECIFIED SNOMED Code(s): 39839364 Plan: 1patient presented to hospital with a right hand forearm swelling and redness with a question of possible cellulitis to the right forearm area from the previous IV site versus thrombophlebitis in this patient currently with no fever or elevated white count will benefit from a Doppler ultrasound of the right upper arm. 2patient with a worsening finding on the chest x-ray and CT concerning for possible aspiration pneumonia. 3positive UA concerning for a UTI from gram-negative pathogen in this patient very hard to get any history as far as urinary symptoms. 4patient to continue with Zosyn while waiting for the culture to finalize and monitor clinical course closely Time with Patient: Less than 30
[2022-05-11] MEDS: PANTOPRAZOLE 40 MG/10 ML VIAL IVP SCH (10:05)
[2022-05-11] MEDS: LEVOTHYROXINE 75 MCG TAB PO SCH (10:05)
[2022-05-11] MEDS: ASPIRIN 81 MG PO SCH (10:05)
[2022-05-11] MEDS: methylPREDNISolone SOD SUCCI 40 MG/ML 1 ML VIAL IV SCH ×2 (10:06→16:41)
[2022-05-11 11:23] LABS: ALT 17 U/L (4-34); AST 47 U/L (14-36); African American GFR (CKD) 15 (>60 ml/min/1.73 sqM); Albumin 2.9 g/dL (3.5-5.0); Albumin/Globulin Ratio 0.9; Alkaline Phosphatase 73 U/L (38-126); Anion Gap 16 mmol/L; Blood Urea Nitrogen 42 mg/dL (7-17); Carbon Dioxide 12 mmol/L (22-30); Chloride 121 mmol/L (98-107); Globulin 3.1 g/dL; Glucose 115 mg/dL (74-99); Non-African American GFR(CKD) 13 (>60 ml/min/1.73 sqM); Potassium 5.4 mmol/L (3.5-5.1); Sodium 149 mmol/L (137-145); Total Bilirubin 0.6 mg/dL (0.2-1.3)
[2022-05-11] MEDS: levETIRAcetam IV 500 MG in SODIUM CHLORIDE 0.9% 100 ML IVPB SCH (11:40)
[2022-05-11 11:55] LABS: Anisocytosis Slight; Basophils % (A) 1 %; Eosinophils # (A) 0.1 k/uL (0-0.7); Eosinophils % (A) 1 %; HCT 24.1 % (34.0-46.0); Hypochromasia Marked; Lymphocytes # (A) 1.1 k/uL (1.0-4.8); Lymphocytes % (A) 17 %; MCH 23.9 pg (25.0-35.0); MCHC 29.7 g/dL (31.0-37.0); MCV 80.5 fL (80.0-100.0); Mean Platelet Volume 8.4; Microcytosis Slight; Monocytes # (A) 0.5 k/uL (0-1.0); Monocytes % (A) 8 %; Neutrophils # (A) 4.8 k/uL (1.3-7.7); Neutrophils % (A) 72 %; Platelet Count 260 k/uL (150-450); Poikilocytosis Slight; RBC 2.99 m/uL (3.80-5.40); RDW 19.2 % (11.5-15.5); WBC 6.7 k/uL (3.8-10.6)
[2022-05-11 12:15] LABS: HGB 7.2 gm/dL (11.4-16.0)
--- NOTE | 2022-05-11 13:07 | P.PN ---
Subjective Progress Note Date: 05/11/22 This is Tevin Parnell NP, I'm dictating on behalf of Dr. Reaves's H&P and A&P. Patient was interviewed and examined. We were consulted on this 62-year-old nonverbal female for tachycardia. Patient continues to be tachycardic, however multiple etiologies are possibly at work here. Patient has a fever. Her hemoglobin has decreased from yesterday. Patient has chronic pain and is on a pain pump. We were told that the amount of morphine was decreased yesterday evening. The patient could be experiencing an increase in pain. We are currently not finding a definitive cardiac source for the tachycardia. GENERAL: Well-appearing, well-nourished and in no acute distress. NECK: Supple without JVD or thyromegaly. LUNGS: Breath sounds clear to auscultation bilaterally. Respiration equal and unlabored. No wheezes, rales or rhonchi. HEART: Regular rate and rhythm without murmurs, rubs or gallops. S1 and S2 heard. EXTREMITIES: Normal range of motion, no edema. No clubbing or cyanosis. Peripheral pulses intact and strong. VITALS: Temp 100, pulse 119, respirations 20, blood pressure 167/101, O2 saturation 100% on 2 L TELEMETRY: Sinus tachycardia LABS: White count 6.7, hemoglobin 7.2, platelets 260, sodium 149, potassium 5.4, B1 42, creatinine 3.45 IMPRESSION: 1. Sinus tachycardia, likely multiple etiologies 2. Acute kidney injury 3. Elevated d-dimer, negative VQ scan 4. Altered mental status, patient's baseline 5. Hypertension, uncontrolled PLAN: There are multiple possible sources of her tachycardia. TSH is normal If heart rate is still elevated tomorrow, increase metoprolol to 75 mg twice a day. Ensure adequate fluid intake. Monitor hemoglobin. Monitor temperature. Further recommendations based on patient's clinical course. Objective - Vital Signs Vital signs: Vital Signs Temp 100.0 F H 05/11/22 08:00 Pulse 119 H 05/11/22 08:00 Resp 20 05/11/22 08:30 BP 167/101 05/11/22 08:00 Pulse Ox 100 05/11/22 08:00 FiO2 Intake & Output 05/10/22 05/11/22 05/11/22 18:59 06:59 18:59 Intake Total 290 Balance 290 Intake: Oral 290 Other: Voiding Method External Catheter External Catheter Diaper Incontinent # Voids 1 1 # Bowel Movements 1 1 - Labs CBC & Chem 7: 05/11/22 11:28 05/11/22 10:52 Labs: Abnormal Lab Results - Last 24 Hours (Table) 05/11/22 05/11/22 Range/Units 10:52 11:28 RBC 2.99 L (3.80-5.40) m/uL Hgb 7.2 L D (11.4-16.0) gm/dL Hct 24.1 L (34.0-46.0) % MCH 23.9 L (25.0-35.0) pg MCHC 29.7 L (31.0-37.0) g/dL RDW 19.2 H (11.5-15.5) % Sodium 149 H (137-145) mmol/L Potassium 5.4 H (3.5-5.1) mmol/L Chloride 121 H (98-107) mmol/L Carbon Dioxide 12 L (22-30) mmol/L BUN 42 H (7-17) mg/dL Creatinine 3.45 H (0.52-1.04) mg/dL Glucose 115 H (74-99) mg/dL AST 47 H (14-36) U/L Total Protein 6.0 L (6.3-8.2) g/dL Albumin 2.9 L (3.5-5.0) g/dL Microbiology - Last 24 Hours (Table) 05/07/22 22:30 Blood Culture - Preliminary Blood No Growth after 72 hours 05/08/22 03:54 Urine Culture - Final Urine,Voided Pseudomonas aeruginosa
[2022-05-11] MEDS: ACETAMINOPHEN TAB 325 MG TAB PO PRN (16:41)
--- NOTE | 2022-05-11 17:35 | P.PN ---
Progress Note - Text Progress Note Date: 05/11/22 I'm rounding for Dr. Mohit Harley: This is a 62-year-old patient who follows with Dr. Mohit Harley. Chronic stable medical conditions include hyperlipidemia, hypertension, osteoarthritis, gout, history of multiple brain aneurysms. Patient's had a prior stroke with contracture of the left arm and weakness of lower extremity left greater than right. Patient does not ambulate. Patient was admitted with some swelling of the right arm. Had a morphine pain pump placed about a week ago by Dr. link. Since then patient is lethargic. Tired. Barely eating. 05/10/2022: Patient remains to be lethargic. Arousable but sleepy, speaking slowly. Patient had received Narcan initially. I speak to . He is given instructions for another pain pump, he to come in and shut off the pump. On IV Zosyn for Pseudomonas. Also patient has bilateral pneumonia. 05/11/2022: Overnight the nurse had some concerns about patient having ALLERGIC reaction. Was given IV Solu-Medrol and IV Benadryl. Reviewed today does not appear to be so. Has some swelling of the right upper extremity. May be mild cellulitis. Continue IV Zosyn. Gio wrap ordered for right upper extremity. Pain vein pumper came out yesterday. Dose was reduced to intermittent. Patient far more awake today. Eating some with assistance. IV Zosyn. Discussed with nurse at length. Active Medications Acetaminophen (Acetaminophen Tab 325 Mg Tab) 650 mg PO Q4HR PRN PRN Reason: Fever and/ or Pain Last Admin: 05/11/22 16:41 Dose: 650 mg Aspirin (Aspirin 81 Mg) 81 mg PO DAILY [facility] Last Admin: 05/11/22 10:05 Dose: 81 mg Atorvastatin Calcium (Atorvastatin 20 Mg Tab) 20 mg PO HS [facility] Last Admin: 05/11/22 01:04 Dose: Not Given Diphenhydramine HCl (Diphenhydramine 50 Mg/Ml 1 Ml Vial) 12.5 mg IVP Q6HR PRN PRN Reason: Allergy Symptoms Sodium Chloride (Saline 0.9%) 1,000 mls @ 130 mls/hr IV .Q7H42M [facility] Last Admin: 05/11/22 16:08 Dose: Not Given Piperacillin Sod/Tazobactam (Sod 3.375 gm/ Sodium Chloride) 100 mls @ 25 mls/hr IVPB Q12H [facility]; Protocol Last Admin: 05/11/22 17:21 Dose: 25 mls/hr Levetiracetam 500 mg/ Sodium (Chloride) 105 mls @ 400 mls/hr IVPB Q24HR [facility] Last Admin: 05/11/22 11:40 Dose: 400 mls/hr Levetiracetam 750 mg/ Sodium (Chloride) 107.5 mls @ 400 mls/hr IVPB Q24H [facility] Last Admin: 05/10/22 21:20 Dose: 400 mls/hr Lacosamide (Lacosamide 50 Mg Tablet) 100 mg PO BID [facility] Last Admin: 05/11/22 10:05 Dose: 100 mg Levothyroxine Sodium (Levothyroxine 75 Mcg Tab) 75 mcg PO 0630 [facility] Last Admin: 05/11/22 10:05 Dose: 75 mcg Methylprednisolone Sodium Succinate (Methylprednisolone Sod Succi 40 Mg/Ml 1 Ml Vial) 40 mg IV Q8HR [facility] Last Admin: 05/11/22 16:41 Dose: 40 mg Metoprolol Tartrate (Metoprolol Tartrate 50 Mg Tab) 50 mg PO BID [facility] Last Admin: 05/11/22 10:05 Dose: 50 mg Naloxone HCl (Naloxone 0.4 Mg/Ml 1 Ml Vial) 0.2 mg IV Q2M PRN PRN Reason: Opioid Reversal Last Admin: 05/10/22 21:55 Dose: 0.2 mg Ondansetron HCl (Ondansetron 4 Mg/2 Ml Vial) 4 mg IVP Q8HR PRN PRN Reason: Nausea Pantoprazole Sodium (Pantoprazole 40 Mg/10 Ml Vial) 40 mg IVP DAILY [facility] Last Admin: 05/11/22 10:05 Dose: 40 mg Past medical history to include: Stroke with left-sided weakness, hypertension, hyperlipidemia, osteoarthritis, gout, gallstones, multiple brain aneurysms with causes stents to the brain, depression, schizophrenia. Excessive alcohol use in the past. Social history: *Smoke age of 14, 1 pack a day, quit over 20 years ago. Smoked again for a short time and at [place] stopped when a half years ago. Previously used cocaine. None in the last 17 years. Heavy alcohol use in the past. Family history: Cancer of the throat lung rectum Physical examination: VITAL SIGNS: 100.5, 120, 16, 1 33 x 90, 100% on 2 L GENERAL: Laying in bed, more awake to tired EYES: Pupils equal. Conjunctiva normal. HEENT: External appearance of nose and ears normal, oral cavity dry. Scanty scalp hair NECK: JVD not raised; masses not palpable. HEART: First and second heart sounds are normal; no edema. LUNGS: Respiratory rate increased; decreased breath sounds. ABDOMEN: Soft, nontender, liver spleen not palpable, no masses palpable. PSYCH: Lethargic, but arousable MUSCULOSKELETAL:No Clubbing/cyanosis;muscles-grossly intact. Contracture of the left arm. Some evidence of OA. Significant contractures EXTREMITY: Mild distal redness and some swelling of the right upper extremity. INVESTIGATIONS, reviewed in the clinical context: 05/11/2022: White count 6.7 hemoglobin 7.2 sodium 149 potassium 5.4. 0.2 creatinine 3.45 WBC 6.7 hemoglobin 7.9 potassium 5.4. 45.6 creatinine 3.1 CRP 7 pro-calcitonin 0.26 Urine culture: Pseudomonas aeruginosa CT chest: Bilateral infiltrates Assessment and plan: -Bilateral pneumonia suspected gram-negative organism. IV Zosyn -Sepsis a combination of pneumonia, UTI and cellulitis. IV fluids. IV Zosyn. -Acute UTI with cystitis from Pseudomonas aeruginosa IV Zosyn -Acute cellulitis of the distal right hand Continue IV Zosyn. Gio wrap -Acute metabolic encephalopathy likely from morphine pain pump put in about a week ago. Patient has been lethargic since then.: Some improvement. , I spoke to him. Complete research instrumentation technician came out yesterday and decrease her dose. Pain management team consulted from years that the can reduce the concentration of morphine in the pump. Currently 20 mg/mL. -Chronic medical debility,chronically bedbound -Left hemiparesis from a prior stroke Fall precautions -Anxiety depression not otherwise specified Zoloft -Schizophrenia Abilify 10 mg daily at bedtime -Seizure disorder Keppra, vimpat -GERD Prilosec 20 mg a day -Hypertension Metoprolol 50 mg twice a day -Hyperlipidemia Lipitor 20 mg daily at bedtime -Anemia of CK D Follow CBC -Acute kidney injury with creatinine going up from 0.69 on April 28 up to 3.83 on May 07. Combination of prerenal from decreased oral intake and possibly ATN from infection Follow renal function -Hypothyroid [id number] g per day -Hypernatremia and hyperchloremia from free water loss D5.45 at 35 mL an hour. Dose of morphine in the pain pump change to intubated. IV Zosyn to continue. Change IV fluids to D5 0.45 at 100 mL an hour. DC Solu-Medrol and Benadryl as not felt to be ALLERGIC reaction. Discussed with nurse at length. Total time spent today about 40 minutes with over 25 minutes of discussion.
[2022-05-11] MEDS: DEXTROSE 5%-0.45% NACL 1,000 ML IV SCH (19:39)
[2022-05-11] MEDS: levETIRAcetam IV 750 MG in SODIUM CHLORIDE 0.9% 100 ML IVPB SCH (21:32)
[2022-05-12] MEDS: PIPERACILLIN-TAZOBACTAM 3.375 GM in SODIUM CHLORIDE 0.9% 100 ML IVPB SCH ×2 (04:24→15:36)
[2022-05-12] MEDS: DEXTROSE 5%-0.45% NACL 1,000 ML IV SCH ×2 (04:25→21:01)
[2022-05-12] MEDS: LEVOTHYROXINE 75 MCG TAB PO SCH (05:51)
[2022-05-12 08:30] LABS: African American GFR (CKD) 18 (>60 ml/min/1.73 sqM); Anion Gap 9 mmol/L; Blood Urea Nitrogen 50 mg/dL (7-17); Calcium 8.8 mg/dL (8.4-10.2); Carbon Dioxide 16 mmol/L (22-30); Chloride 123 mmol/L (98-107); Glucose 122 mg/dL (74-99); Non-African American GFR(CKD) 15 (>60 ml/min/1.73 sqM); Potassium 4.8 mmol/L (3.5-5.1); Sodium 148 mmol/L (137-145)
[2022-05-12] MEDS: levETIRAcetam IV 500 MG in SODIUM CHLORIDE 0.9% 100 ML IVPB SCH (08:33)
[2022-05-12] MEDS: METOPROLOL TARTRATE 50 MG TAB PO SCH ×2 (08:34→21:11)
[2022-05-12] MEDS: ASPIRIN 81 MG PO SCH (08:34)
[2022-05-12] MEDS: LACOSAMIDE 50 MG TABLET PO SCH ×2 (08:34→21:11)
[2022-05-12] MEDS: PANTOPRAZOLE 40 MG/10 ML VIAL IVP SCH (08:34)
--- NOTE | 2022-05-12 10:09 | P.PN ---
Subjective This is a 62-year-old female with past medical history of ischemic CVA, brain aneurysms status post coiling, hypertension,seizures. Patient presents to the hospital with altered mental status, acute kidney injury and sepsis. Cardiology was consulted for tachycardia Patient used to follow in the office with Dr. Tanner, last seen in 2016. 05/12 Patient seen and examined at bedside, no acute distress. Her heart rates that have improved. She is currently in sinus rhythm heart rate 60s to 80s. Fever has improved. Blood pressure 116/74, heart rate 2, afebrile, saturations 100% on 2 L nasal cannula GENERAL: in no acute distress. NECK: Supple without JVD or thyromegaly. LUNGS: Breath sounds clear to auscultation bilaterally. Respiration equal and unlabored. No wheezes, rales or rhonchi. HEART: Regular rate and rhythm without murmurs, rubs or gallops. S1 and S2 heard. EXTREMITIES: Normal range of motion, no edema. No clubbing or cyanosis. Peripheral pulses intact. ASSESSMENT Sinus tachycardia, likely multiple etiologies Anemia Acute kidney injury Elevated d-dimer, negative VQ scan Altered mental status Hypertension Chronic pain, with pain pump PLAN There are multiple possible sources of her sinus tachycardia. Anemia management and workup per primary TSH is normal Encourage PO intake Continue metoprolol tartrate at 50mg BID No further changes from cardiology perspective. We will follow the patient as needed. Please reconsult if needed Nurse Practitioner note has been reviewed, I agree with a documented findings and plan of care. Patient was seen and examined. Objective - Vital Signs Vital signs: Vital Signs Temp 98.5 F 05/12/22 08:00 Pulse 82 05/12/22 08:34 Resp 20 05/12/22 08:34 BP 116/74 05/12/22 08:00 Pulse Ox 100 05/12/22 08:00 FiO2 Intake & Output 05/11/22 05/12/22 05/12/22 18:59 06:59 18:59 Other: Voiding Method Diaper Diaper Diaper Incontinent Incontinent Incontinent # Voids 1 # Bowel Movements 2 1 - Labs CBC & Chem 7: 05/11/22 11:28 05/12/22 07:54 Labs: Abnormal Lab Results - Last 24 Hours (Table) 05/11/22 05/11/22 05/12/22 Range/Units 10:52 11:28 07:54 RBC 2.99 L (3.80-5.40) m/uL Hgb 7.2 L D (11.4-16.0) gm/dL Hct 24.1 L (34.0-46.0) % MCH 23.9 L (25.0-35.0) pg MCHC 29.7 L (31.0-37.0) g/dL RDW 19.2 H (11.5-15.5) % Sodium 149 H 148 H (137-145) mmol/L Potassium 5.4 H (3.5-5.1) mmol/L Chloride 121 H 123 H (98-107) mmol/L Carbon Dioxide 12 L 16 L (22-30) mmol/L BUN 42 H 50 H (7-17) mg/dL Creatinine 3.45 H 3.09 H (0.52-1.04) mg/dL Glucose 115 H 122 H (74-99) mg/dL AST 47 H (14-36) U/L Total Protein 6.0 L (6.3-8.2) g/dL Albumin 2.9 L (3.5-5.0) g/dL Microbiology - Last 24 Hours (Table) 05/07/22 22:30 Blood Culture - Preliminary Blood No Growth after 96 hours 05/10/22 21:16 Blood Culture - Preliminary Blood No Growth after 24 hours
--- NOTE | 2022-05-12 15:52 | P.PN ---
Subjective Progress Note Date: 05/12/22 Principal diagnosis: Acute hypoxic respiratory failure due to bilateral healthcare associated pneumonia, continue Zosyn and Zithromax, continue supplemental oxygen, Acute on chronic kidney disease History of CVA with residual left hemiparesis and contractured status Chronic pain syndrome due to muscle spasm status post pump in March 2022 Large right hemispheric parietal stroke Bedbound status Right upper extremity swelling due to prior IV axis no evidence of DVTs maintain patient on DVT prophylaxis, continue deep breathing exercises incentive spirometry monitor observe renal functions closely 05/12/2022, patient seen eval examined, patient remains on 2 L supplemental oxygen saturation is stable remains afebrile, woman dynamically stable, no significant changes present, last set of vitals include blood pressure 1077/75, respiratory 20, heart rate 90, temperature 98.4, situation 100% 2 L oxygen patient remains on the Keppra along with Synthroid continuation of home medications and IV Zosyn tolerating well, chemistry reviewed sodium is 148 coming down, potassium 4.8 down from 5.4 yesterday BUN/creatinine continued to improve 50/3.09, 2 sets of blood cultures have been negative however urine is positive for pseudomonas aeruginosa 05/10/2022, patient seen eval examined overall respiratory status remained stable, however he still short of breath with minimal activity in next exertion, she remains on 2 L oxygen, patient remains afebrile and hemodynamically stable intermittent tachycardia is present, T-max is 99, urine culture came back posit erica for pseudomonas aeruginosa, sensitive to Zosyn, Patient is a 62-year-old female came into the hospital with right arm swelling she was recently hospitalized for pneumonia she also has contracted extremities underwent pump placement for baclofen and morphine patient has been more somnolent also has ongoing problem of nausea and vomiting and inability to tolerate the pain medications. Patient is mostly nonverbal and noncommunicative daughter is present at the bedside who is a source of information, past medical history significant for CVA/TIA, dyslipidemia, hypertension hypertensive cardi ovascular disease, chronic anemia, left-sided weakness and lower extremity weakness due to stroke, gout, pancreatitis, so the seizures, history of multiple brain aneurysms requiring quite ill and stent placement. Pain pump was inserted on 04/21/2022. Patient has extensive history of smoking and nicotine use quit about 8 years ago used to smoke one to 2 packs per day Of arrival she was tachypneic and tachycardic heart rate is 120 also hypertensive blood pressure 160/90 saturation 92% her right was swelling. Patient received Narcan. Patient was negative for coronary influenza, chest x-ray showed interstitial edema, patient was started on Keflex and Zithromax, also received Narcan, she was found to have acute kidney disease with BUN/creatinine of 52/3.83, troponin were less than 0.012, potassium was 5.3. Duplex ultrasound the right upper extremity negative for DVT. Computed tomography scan of the head significant for cerebral atrophy along with a right hemispheric infarct. VQ scan is very low probability for PE homogenous distribution of tracer bilaterally in the lungs noted no d iscrete perfusion defects seen. Computed tomography scan without contrast small tiny bilateral effusions seen along with groundglass attenuation slightly worse. Currently patient has been treated with Zosyn along with Zithromax swelling in the right upper extremity significant improvement appears to be related to prior IV axis in the hand Objective - Vital Signs Vital signs: Vital Signs Temp 98.4 F 05/12/22 13:56 Pulse 91 05/12/22 13:56 Resp 20 05/12/22 13:56 BP 107/75 05/12/22 13:56 Pulse Ox 100 05/12/22 13:56 FiO2 Intake & Output 05/11/22 05/12/22 05/12/22 18:59 06:59 18:59 Other: Voiding Method Diaper Diaper Diaper Incontinent Incontinent Incontinent # Voids 1 # Bowel Movements 2 1 1 - Exam - Constitutional General appearance: average body habitus, disheveled, mild distress - EENT Eyes: EOMI, PERRLA ENT: normal oropharynx Ears: bilateral: normal - Neck Carotids: bilateral: upstroke normal Thyroid: bilateral: normal size - Respiratory Respiratory: bilateral: diminished - Cardiovascular Rhythm: regular Heart sounds: normal: S1, S2 - Gastrointestinal General gastrointestinal: soft - Neurologic Contracted unable to examine neurological status at length but appears to be on the left side due to prior stroke with contractured - Labs CBC & Chem 7: 05/11/22 11:28 05/12/22 07:54 Labs: Abnormal Lab Results - Last 24 Hours (Table) 05/12/22 Range/Units 07:54 Sodium 148 H (137-145) mmol/L Chloride 123 H (98-107) mmol/L Carbon Dioxide 16 L (22-30) mmol/L BUN 50 H (7-17) mg/dL Creatinine 3.09 H (0.52-1.04) mg/dL Glucose 122 H (74-99) mg/dL Microbiology - Last 24 Hours (Table) 05/07/22 22:30 Blood Culture - Preliminary Blood No Growth after 96 hours 05/10/22 21:16 Blood Culture - Preliminary Blood No Growth after 24 hours Assessment and Plan Assessment: Urinary tract infection with Pseudomonas aeruginosa sensitive to Zosyn, will continue it Acute hypoxic respiratory failure due to bilateral healthcare associated pneumonia, continue Zosyn and continue supplemental oxygen, Acute on chronic kidney disease with slight improvement in kidney function 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
[2022-05-12] MEDS: levETIRAcetam IV 750 MG in SODIUM CHLORIDE 0.9% 100 ML IVPB SCH (21:11)
[2022-05-12] MEDS: ATORVASTATIN 20 MG TAB PO SCH (21:12)
[2022-05-12] MEDS: ACETAMINOPHEN TAB 325 MG TAB PO PRN (22:28)
[2022-05-13] MEDS: DEXTROSE 5%-0.45% NACL 1,000 ML IV SCH ×2 (00:37→09:48)
[2022-05-13] MEDS: PIPERACILLIN-TAZOBACTAM 3.375 GM in SODIUM CHLORIDE 0.9% 100 ML IVPB SCH ×2 (04:00→15:41)
[2022-05-13] MEDS: LEVOTHYROXINE 75 MCG TAB PO SCH (06:04)
[2022-05-13] MEDS: PANTOPRAZOLE 40 MG/10 ML VIAL IVP SCH (08:00)
[2022-05-13] MEDS: METOPROLOL TARTRATE 50 MG TAB PO SCH ×2 (08:01→21:26)
[2022-05-13] MEDS: ASPIRIN 81 MG PO SCH (08:01)
[2022-05-13] MEDS: LACOSAMIDE 50 MG TABLET PO SCH ×2 (08:01→21:25)
--- NOTE | 2022-05-13 09:17 | PN ---
PROGRESS NOTE SUBJECTIVE: A white female, she is more alert today, giving appropriate answers. She had some medication injected into her pain pump to reverse the morphine. Says she wants to eat food, she drank a whole Ensure in front of me and greatly. She has acute hypoxic respiratory failure secondary to bilateral healthcare-associated pneumonia, Zosyn, azithromycin; chronic kidney disease; history of CVA; prior large right hemispheric parietal stroke; bed-bound status; altered mental status; lethargic secondary to morphine pain pump, hopefully which has been reversed. OBJECTIVE: VITAL SIGNS: Temperature 98.4, pulse 90-91, respiratory rate 18-20, blood pressure 107/75, and pulse ox 98-100. CARDIOVASCULAR: S1, S2. LUNGS: Have bilateral rhonchi and rales. Decreased breath sounds. GI: Soft, nontender. NECK: Supple, no mass. HEENT: Normocephalic, atraumatic. PSYCH: She is giving appropriate answers. LABORATORY DATA: Hemoglobin is down to 7.2, white count is 6.7, BUN 30, creatinine 3.09. She has generalized weakness in 4 extremities. ASSESSMENT: Urinary tract infection with Pseudomonas aeruginosa status post Zosyn; bilateral healthcare pneumonia, on Zosyn; chronic kidney disease; history of cerebrovascular accident with left hemiparesis; chronic pain syndrome, status post pain pump which is hopefully being reversed; large old right hemispheric parietal stroke, bedbound status. PLAN: Continue medicines as above, PT OT. PROGNOSIS: Guarded. MMODL / IJN: [id number] /
[2022-05-13] MEDS: levETIRAcetam IV 500 MG in SODIUM CHLORIDE 0.9% 100 ML IVPB SCH (09:47)
--- NOTE | 2022-05-13 12:47 | P.NPCON ---
History of Present Illness - Reason for Consult acute renal failure - History of Present Illness Patient is a 62-year-old -[place] female with history of CVA, TIA with contractures of the extremities. Patient is admitted to the hospital with mental status changes. It appears that she is maintained on morphine pump for pain at home and family noticed increased sleepiness. No history of nausea vomiting diarrhea Patient is able to tolerate oral intake. She is fed by staff Currently avoiding in diapers Maintained on IV fluids. Serum creatinine 3.8 on 05/07/2022 currently down to 3.09. Previous creatinine 0.6 on 04/28/2022 Blood pressure has been on the lower side initially with systolic 92-100 mmHg Review of Systems As per HPI Past Medical History Past Medical History: CVA/TIA, Hyperlipidemia, Hypertension, Osteoarthritis (OA) Additional Past Medical History / Comment(s): ANEMIA, CVA WITH L ARM WEAKNESS AND bilateral LEG WEAKNESS, hx. gout, PANCREATITIS, pseudoseizures, UTI, gallstones, tremors, hx multiple brain aneursyms History of Any Multi-Drug Resistant Organisms: None Reported Date of last positivie culture/infection: 03/18/18 ESBL E.coli MDRO Source:: Urine Past Surgical History: Section, Cholecystectomy, Orthopedic Surgery Additional Past Surgical History / Comment(s): hx aneurysms- COILS AND STENTS TO BRAIN, repair tendons r/t gout BILATERAL FEET; Pain pump inserted on 04/21/22 Past Anesthesia/Blood Transfusion Reactions: No Reported Reaction Additional Past Anesthesia/Blood Transfusion Reaction / Comment(s): PT HAS HAD BLOOD TRANSFUSIONS FOR ANEMIA-NO REACTION. Past Psychological History: Anxiety, Depression, Schizophrenia Additional Psychological History / Comment(s): paranoid schizophrenia Smoking Status: Former smoker Additional Past Alcohol Use History / Comment(s): Stopped smoking 2012 or 2013 - Past Family History Sister(s) Family Medical History: Myocardial Infarction (PR) Father Family Medical History: Cancer Additional Family Medical History / Comment(s): throat, lung, and rectal cancer Mother Family Medical History: Myocardial Infarction (PR) Additional Family Medical History / Comment(s): stroke Medications and Allergies Home Medications Medication Instructions Recorded Confirmed Type Aspirin EC [Ecotrin Low Dose] 81 mg PO DAILY 04/12/16 05/08/22 History Metoprolol Tartrate 100 mg PO BID 01/04/17 05/08/22 History Sertraline [Zoloft] 100 mg PO DAILY 01/04/17 05/08/22 History Omeprazole [PriLOSEC] 20 mg PO DAILY 02/09/20 05/08/22 History Atorvastatin [Lipitor] 20 mg PO HS #30 tab 02/13/20 05/08/22 Rx Divalproex [Depakote] 500 mg PO BID 02/20/22 05/08/22 History Levothyroxine Sodium [Synthroid] 75 mcg PO DAILY 02/20/22 05/08/22 History Sertraline [Zoloft] 25 mg PO DAILY 02/20/22 05/08/22 History Divalproex [Depakote] 250 mg PO HS 04/24/22 05/08/22 History HYDROcodone/APAP 5-325MG [Lane 1 tab PO Q4H PRN 04/24/22 05/08/22 History 5-325] Lacosamide [Vimpat] 100 mg PO BID 30 Days #60 tab 04/29/22 05/08/22 Rx risperiDONE [RisperDAL] 1 mg PO HS 30 Days #30 tab 04/29/22 05/08/22 Rx Morphine Pain Pump 1 dose MISCELLANE DIRECTED 05/08/22 05/08/22 History Ondansetron Odt [Zofran ODT] 4 mg PO TID 05/08/22 05/08/22 History Allergies Allergy/AdvReac Type Severity Reaction Status Date / Time No Known Allergies Allergy Verified 05/08/22 09:48 Physical Exam Vitals: Vital Signs Temp Pulse Resp BP Pulse Ox 05/13/22 07:58 97.9 F 75 17 130/81 97 05/13/22 01:52 98.2 F 89 17 111/71 100 05/12/22 19:53 97.5 F L 91 15 115/77 98 05/12/22 13:56 98.4 F 91 20 107/75 100 Intake and Output 05/12/22 05/13/22 05/13/22 22:59 06:59 14:59 Intake Total 200 550 Balance 200 550 Intake: Intake, IV Titration 200 300 Amount Dextrose 5%-0.45% NaCl 1, 200 000 ml @ 100 mls/hr IV . Q10H [facility] Rx#:[id number] Piperacillin-Tazobactam 3 100 100 .375 gm In Sodium Chloride 0.9% 100 ml @ 25 mls/hr IVPB Q12H [facility] Rx# :[id number] levETIRAcetam IV 750 mg 100 In Sodium Chloride 0.9% 100 ml @ 400 mls/hr IVPB Q24H [facility] Rx#:[id number] Oral 250 Other: Voiding Method Diaper Diaper Incontinent Incontinent # Voids 1 # Bowel Movements 0 Patient is awake, comfortable, not in any acute distress Examination of the heart S1 and S2 Examination of the lungs bilateral breath sounds are heard Abdomen is soft Examination of extremities shows contractures worse on the left side. No significant edema noted Results - Lab Results Most recent lab results Calcium 8.8 mg/dL (8.4-10.2) 05/12/22 07:54 Magnesium 1.6 mg/dL (1.6-2.3) 05/07/22 22:15 05/11/22 11:28 05/12/22 07:54 Assessment and Plan Assessment: 1. Acute kidney injury prerenal associated with low blood pressure, nonoliguric. Rule out obstructive uropathy 2. Metabolic acidosis associated with acute kidney injury 3. Mild hypernatremia associated with decreased free water intake 4. Mental status changes possibly related to pain medications, patient was on morphine pump at home. Mentation appears to have improved 5. Hyperkalemia associated with acute kidney injury and metabolic acidosis currently improved Plan: Check bladder scan rule out urine retention Start IV bicarb Avoid nephrotoxic agents Repeat labs in a.m. Check urine cultures Thank you for the consultation. We'll continue to follow the patient with you during her hospitalization
[2022-05-13] MEDS: ACETAMINOPHEN TAB 325 MG TAB PO PRN (12:48)
[2022-05-13] MEDS: DEXTROSE 5% IN WATER 1,000 ML with SODIUM BICARB (1 MEQ/ML) 100 ML IV SCH (13:26)
--- NOTE | 2022-05-13 16:06 | US ---
EXAMINATION TYPE: US kidneys/renal and bladder DATE OF EXAM: 05/13/2022 COMPARISON: None CLINICAL HISTORY: 62 year-old female acute kidney injury TECHNIQUE: Multiple sonographic images of the kidneys and bladder are obtained. FINDINGS: EXAM MEASUREMENTS: Right Kidney: 9.3 x 4.9 x 5.1 cm Left Kidney: 9.4 x 5.9 x 5.0 cm [employer] notes: Incidental note is made of rt pleural effusion. Right Kidney: No hydronephrosis or masses seen Left Kidney: No hydronephrosis or masses seen Bladder: Underdistention limited evaluation. -Incidental note is made of free fluid in the pelvis IMPRESSION: 1. No hydronephrosis. 2. Incidental right pleural effusion and some free fluid in the pelvis. Correlate as to etiology.
[2022-05-13] MEDS: ATORVASTATIN 20 MG TAB PO SCH (21:25)
[2022-05-13] MEDS: levETIRAcetam IV 750 MG in SODIUM CHLORIDE 0.9% 100 ML IVPB SCH (21:26)
[2022-05-14] MEDS: DEXTROSE 5% IN WATER 1,000 ML with SODIUM BICARB (1 MEQ/ML) 100 ML IV SCH ×2 (03:14→11:09)
[2022-05-14] MEDS: PIPERACILLIN-TAZOBACTAM 3.375 GM in SODIUM CHLORIDE 0.9% 100 ML IVPB SCH ×2 (05:13→15:14)
[2022-05-14] MEDS: LEVOTHYROXINE 75 MCG TAB PO SCH (05:14)
[2022-05-14] MEDS: levETIRAcetam IV 500 MG in SODIUM CHLORIDE 0.9% 100 ML IVPB SCH (07:44)
[2022-05-14] MEDS: ASPIRIN 81 MG PO SCH (07:45)
[2022-05-14] MEDS: LACOSAMIDE 50 MG TABLET PO SCH ×2 (07:45→21:55)
[2022-05-14] MEDS: METOPROLOL TARTRATE 50 MG TAB PO SCH ×2 (07:45→21:55)
[2022-05-14] MEDS: PANTOPRAZOLE 40 MG/10 ML VIAL IVP SCH (10:20)
[2022-05-14] MEDS ORDERED: FUROSEMIDE 10 MG/ML 4 ML VIAL IV STA (10:31)
[2022-05-14 13:19] VITALS: BMI 38.7
--- NOTE | 2022-05-14 13:54 | P.PN ---
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 Chronic pain syndrome due to muscle spasm status post pump in March 2022 Large right hemispheric parietal stroke Bedbound status Right upper extremity swelling due to prior IV axis no evidence of DVTs maintain patient on DVT prophylaxis, continue deep breathing exercises incentive spirometry monitor observe renal functions closely 05/14/2022, patient seen and evaluated examined during rounds labs reviewed medications reviewed care plan discussed, remains on 2 L oxygen, shortness of breath activity and exertion present, patient being treated for pseudomonas with IV Zosyn, has been placed on IV Drip as per renal services, labs from today pending, ultrasound of the kidney revealed presence of right pleural effusion will obtain dedicated right-sided ultrasound to estimate 05/12/2022, patient seen eval examined, patient remains on 2 L supplemental oxygen saturation is stable remains afebrile, woman dynamically stable, no significant changes present, last set of vitals include blood pressure 1077/75, respiratory 20, heart rate 90, temperature 98.4, situation 100% 2 L oxygen patient remains on the Keppra along with Synthroid continuation of home medications and IV Zosyn tolerating well, chemistry reviewed sodium is 148 coming down, potassium 4.8 down from 5.4 yesterday BUN/creatinine continued to improve 50/3.09, 2 sets of blood cultures have been negative however urine is positive for pseudomonas aeruginosa 05/10/2022, patient seen eval examined overall respiratory status remained stable, however he still short of breath with minimal activity in next exertion, she remains on 2 L oxygen, patient remains afebrile and hemodynamically stable intermittent tachycardia is present, T-max is 99, urine culture came back positive for pseudomonas aeruginosa, sensitive to Zosyn, Patient is a 62-year-old female came into the hospital with right arm swelling she was recently hospitalized for pneumonia she also has contracted extremities underwent pump placement for baclofen and morphine patient has been more somnolent also has ongoing problem of nausea and vomiting and inability to tolerate the pain medications. Patient is mostly nonverbal and noncommunicative daughter is present at the bedside who is a source of information, past medical history significant for CVA/TIA, dyslipidemia, hypertension hypertensive cardiovascular disease, chronic anemia, left-sided weakness and lower extremity weakness due to stroke, gout, pancreatitis, so the seizures, history of multiple brain aneurysms requiring quite ill and stent placement. Pain pump was inserted on 04/21/2022. Patient has extensive history of smoking and nicotine use quit about 8 years ago used to smoke one to 2 packs per day Of arrival she was tachypneic and tachycardic heart rate is 120 also hypertensive blood pressure 160/90 saturation 92% her right was swelling. Patient received Narcan. Patient was negative for coronary influenza, chest x-ray showed interstitial edema, patient was started on Keflex and Zithromax, also received Narcan, she was found to have acute kidney disease with BUN/creatinine of 52/3.83, troponin were less than 0.012, potassium was 5.3. Duplex ultrasound the right upper extremity negative for DVT. Computed tomography scan of the head significant for cerebral atrophy along with a right hemispheric infarct. VQ scan is very low probability for PE homogenous distribution of tracer bilaterally in the lungs noted no discrete perfusion defects seen. Computed tomography scan without contrast small tiny bilateral effusions seen along with groundglass attenuation slightly worse. Currently patient has been treated with Zosyn along with Zithromax swelling in the right upper extremity significant improvement appears to be related to prior IV axis in the hand Objective - Vital Signs Vital signs: Vital Signs Temp 98.1 F 05/14/22 08:00 Pulse 87 05/14/22 08:00 Resp 17 05/14/22 08:00 BP 110/74 05/14/22 08:00 Pulse Ox 97 05/14/22 08:00 FiO2 Intake & Output 05/13/22 05/14/22 05/14/22 18:59 06:59 18:59 Intake Total 550 Output Total 150 Balance 400 Weight 90 kg Intake: Intake, IV Titration 300 Amount Dextrose 5%-0.45% NaCl 1, 200 000 ml @ 100 mls/hr IV . Q10H [facility] Rx#:[id number] Piperacillin-Tazobactam 3 100 .375 gm In Sodium Chloride 0.9% 100 ml @ 25 mls/hr IVPB Q12H [facility] Rx# :[id number] Oral 250 Output: Urine 150 Other: Voiding Method Diaper Diaper Diaper Incontinent Incontinent Incontinent External Catheter # Voids 1 1 # Bowel Movements 2 1 - Exam - Constitutional General appearance: average body habitus, disheveled, mild distress - EENT Eyes: EOMI, PERRLA ENT: normal oropharynx Ears: bilateral: normal - Neck Carotids: bilateral: upstroke normal Thyroid: bilateral: normal size - Respiratory Respiratory: bilateral: diminished - Cardiovascular Rhythm: regular Heart sounds: normal: S1, S2 - Gastrointestinal General gastrointestinal: soft - Neurologic Contracted unable to examine neurological status at length but appears to be on the left side due to prior stroke with contractured - Labs CBC & Chem 7: 05/11/22 11:28 05/12/22 07:54 Labs: Microbiology - Last 24 Hours (Table) 05/07/22 22:30 Blood Culture - Final Blood No Growth after 144 hours 05/10/22 21:16 Blood Culture - Preliminary Blood No Growth after 72 hours Assessment and Plan Assessment: Right-sided pleural effusion, will obtain dedicated right-sided ultrasound of the chest Urinary tract infection with Pseudomonas aeruginosa sensitive to Zosyn, will continue it Acute hypoxic respiratory failure due to bilateral healthcare associated pneumonia, continue Zosyn and continue supplemental oxygen, Acute on chronic kidney disease with slight improvement in kidney function 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
--- NOTE | 2022-05-14 14:33 | US ---
EXAMINATION TYPE: US chest DATE OF EXAM: 05/14/2022 COMPARISON: US CLINICAL HISTORY: right pleural effusion. Right pleural effusion visualized on prior US TECHNIQUE: Targeted ultrasound of the posterior lower right hemithorax EXAM MEASUREMENTS: Right Pleural Effusion pocket size: 2.3 cm Right side NOT marked for possible thoracentesis outside the dept- too small pocket and lung persiste nt in image. Pulmonologists are able to review the images in the patient?s EMR. IMPRESSIONS: Small right pleural effusion.
--- NOTE | 2022-05-14 16:45 | P.PN ---
Subjective Patient is seen for follow-up for acute kidney injury. Patient is currently maintained on IV fluids. Urine output has been borderline. Ultrasound does not show any hydronephrosis. No complaints of chest pain or shortness of breath. Patient is maintained on home O2 She has swelling in her legs Being fed by staff. Objective - Vital Signs Vital signs: Vital Signs Temp 98.4 F 05/14/22 14:00 Pulse 74 05/14/22 14:00 Resp 17 05/14/22 14:00 BP 131/86 05/14/22 14:00 Pulse Ox 93 L 05/14/22 14:00 FiO2 Intake & Output 05/13/22 05/14/22 05/14/22 18:59 06:59 18:59 Intake Total 550 Output Total 150 Balance 400 Weight 90 kg Intake: Intake, IV Titration 300 Amount Dextrose 5%-0.45% NaCl 1, 200 000 ml @ 100 mls/hr IV . Q10H [facility] Rx#:[id number] Piperacillin-Tazobactam 3 100 .375 gm In Sodium Chloride 0.9% 100 ml @ 25 mls/hr IVPB Q12H [facility] Rx# :[id number] Oral 250 Output: Urine 150 Other: Voiding Method Diaper Diaper Diaper Incontinent Incontinent Incontinent External Catheter # Voids 1 1 # Bowel Movements 2 1 - Exam Awake, comfortable, not in any acute distress Examination of the heart S1 and S2 Examination of the lungs decreased breath sounds at the bases Abdomen is soft nontender Examination of the lower extremities shows edema 2+ bilaterally Contractures in left upper and lower extremity - Labs CBC & Chem 7: 05/11/22 11:28 05/12/22 07:54 Labs: Microbiology - Last 24 Hours (Table) 05/07/22 22:30 Blood Culture - Final Blood No Growth after 144 hours 05/10/22 21:16 Blood Culture - Preliminary Blood No Growth after 72 hours Assessment and Plan Assessment: 1. Acute kidney injury prerenal associated with low blood pressure, nonoli guric. Ultrasound shows no evidence of obstruction. UA shows trace protein and trace blood. 2. Metabolic acidosis associated with acute kidney injury 3. Mild hypernatremia associated with decreased free water intake 4. Mental status changes possibly related to pain medications, patient was on m orphine pump at home. Mentation appears to have improved 5. Hyperkalemia associated with acute kidney injury and metabolic acidosis currently improved 6. Mild volume overload 7. UTI with urine culture growing Pseudomonas Plan: Decrease bicarb drip IV Lasix 1 Check bladder scan Continue to encourage increase oral intake. Repeat labs in a.m.
--- NOTE | 2022-05-14 16:57 | CDI ---
Documentation Clarification Form Date: 05/14/2022 04:23:14 PM From: Bree Galaviz RN CCDS Admit Date: 05/07/2022 11:30:00 PM Patient Name: Jeane Urbano Visit Number: [id number] Discharge Date: ATTENTION: The Clinical Documentation Specialists (CDI) and [facility] Coding Staff appreciate your assistance in clarifying documentation. Please respond to the clarification below the line at the bottom and electronically sign. The CDI & [facility] Coding staff will review the response and follow-up if needed. Please note: Queries are made part of the Legal Health Record. If you have any questions, please contact the author of this message via ITS. Dr. Mohit Harley Conflicting documentation has been found in the medical record. As attending physician, please provide clarification. Aspiration pneumonia, H&P, 05/09. Healthcare associated, Medicine note, 05/12. History/Risk Factors: 62-year-old female presents to the ED with altered mental status, edema and hypoxemia. Medical history: Recent treatment of aspiration pneumonia and dehydration. Medical history: CVA, HTN, Bed bound and contractures. 05/09, H&P. Clinical Indicators: WBC: 05/07 6.8 X-ray: 05/07 Some interstitial pneumonia that is worse on the left side and not significantly different than last exam. Lung/Breathing assessment: 05/09 Mild wheezes, rhonchi Treatment: 05/11 Solumedrol IV Q8H. Antibiotics: 05/07 Rocephin IVP x 1; 05/08 05/09 Rocephin IVPB Q24H; 05/09 Zosyn IVPB Q12H; 05/07 Azithromycin IVPB x 1; 05/09 Azithromycin IVPB Daily d/c 05/09 one dose administered. O2: 2L nasal cannula Please clarify the type of pneumonia, if known: [ ] Aspiration Pneumonia, Due to food or vomitus [ ] Gram Negative Bacterial Pneumonia [ ] Other bacteria (please specify) [ ] Other, please specify [ ] Unable to determine (Template Last Revised: September 2020) MTDD
--- NOTE | 2022-05-14 17:11 | CDI ---
Documentation Clarification Form Date: 05/14/2022 04:58:13 PM From: Bree Galaviz RN CCDS Admit Date: 05/07/2022 11:30:00 PM Patient Name: Jeane Urbano Visit Number: [id number] Discharge Date: ATTENTION: The Clinical Documentation Specialists (CDI) and [facility] Coding Staff appreciate your assistance in clarifying documentation. Please respond to the clarification below the line at the bottom and electronically sign. The CDI & [facility] Coding staff will review the response and follow-up if needed. Please note: Queries are made part of the Legal Health Record. If you have any questions, please contact the author of this message via ITS. Dr. Mohit Harley Chronic medical debility, chronically Bedbound is being documented, 05/11-05/12, Medical notes. Based on this information and the findings below, is there an additional diagnosis that is clinically appropriate for this patient? History/Risk Factors: 62-year-old female presents to the ED with altered mental status, edema and hypoxemia. Medical history: Recent treatment of aspiration pneumonia and dehydration. Medical history: CVA, HTN, Bed bound and contractures. 05/09, H&P Clinical Indicators: Nursing physical assessment 05/09 Bilateral lower extremities: Muscle tone: weak; Movement description: Contracture, limited, stiff; Muscle strength: Poor. Left upper extremity: Movement: contractures; Muscle strength Poor. Activities of Daily living 05/08 Activity ability: maximum assistance. Patient is contracted and non-ambulatory; total assist Treatment: Active range of motion; Two person assist; complete bed bath; HOB up, Log roll, Close observation, Is there an additional diagnosis that is clinically appropriate for this patient? [ ] Functional Quadriplegia [ ] Complete Immobility due to frailty/severe debility [ ] Generalized weakness: (please specify etiology if known) [ ] Other (please specify) [ ] Unable to determine (Template Last Revised: September 2020) MTDD
[2022-05-14 18:11] LABS: African American GFR (CKD) 22 (>60 ml/min/1.73 sqM); Anion Gap 12 mmol/L; Blood Urea Nitrogen 50 mg/dL (7-17); Calcium 8.2 mg/dL (8.4-10.2); Carbon Dioxide 16 mmol/L (22-30); Chloride 113 mmol/L (98-107); Glucose 96 mg/dL (74-99); Non-African American GFR(CKD) 19 (>60 ml/min/1.73 sqM); Potassium 5.2 mmol/L (3.5-5.1); Sodium 141 mmol/L (137-145)
[2022-05-14] MEDS: ATORVASTATIN 20 MG TAB PO SCH (21:54)
[2022-05-14] MEDS: levETIRAcetam IV 750 MG in SODIUM CHLORIDE 0.9% 100 ML IVPB SCH (21:55)
--- NOTE | 2022-05-15 01:36 | PN ---
PROGRESS NOTE SUBJECTIVE: A 62-year-old -Stateless female being treated for bilateral pneumonia and Pseudomonas UTI. Remains on broad-spectrum antibiotics. Her pain pump has been neutralized so to speak. She is more alert and awake. She is eating well. OBJECTIVE: CARDIOVASCULAR: S1-S2. LUNGS: Scattered rhonchi and wheeze. HEMATOLOGY: Negative Homans. PSYCH: Fair mood and affect. Get PT/OT involved. Continue broad-spectrum antibiotics. When she is cleared by pulmonology and infectious disease, I will send her home. Please see further treatments. Lungs clear. MMODL / IJN: [id number] /
[2022-05-15] MEDS: PIPERACILLIN-TAZOBACTAM 3.375 GM in SODIUM CHLORIDE 0.9% 100 ML IVPB SCH ×2 (04:58→17:57)
--- NOTE | 2022-05-15 07:08 | P.PN ---
Subjective Progress Note Date: 05/11/22 Principal diagnosis: Right-hand swelling question of cellulitis pneumonia and UTI Patient is a 62-year-old -[place] female with multiple comorbidities and recurrent admission to the hospital presented to hospital with a right hand swelling, patient also does have abnormal x-ray concerning for possiblepneumonia and a positive UA concerning for UTI. On today's evaluation that is 05/11/2022, the patient remains to be afebrile patient is sleepy but arousable however not a very good historian no vomiting diarrhea reported by the nursing staff Objective - Vital Signs Vital signs: Vital Signs Temp 98.4 F 05/11/22 02:00 Pulse 109 H 05/11/22 02:00 Resp 18 05/11/22 02:00 BP 116/67 05/11/22 02:00 Pulse Ox 100 05/11/22 02:00 FiO2 Intake & Output 05/10/22 05/11/22 05/11/22 18:59 06:59 18:59 Intake Total 290 Balance 290 Intake: Oral 290 Other: Voiding Method External Catheter External Catheter # Voids 1 1 # Bowel Movements 1 1 - Exam GENERAL DESCRIPTION: Middle-aged female lying in bed in no distress RESPIRATORY SYSTEM: Unlabored breathing , decreased breath sounds at bases HEART: S1 S2 regular rate and rhythm , ABDOMEN: Soft , no tenderness EXTREMITIES: Right hand swelling and redness has decreased - Labs CBC & Chem 7: 05/11/22 11:28 05/14/22 17:06 Labs: Abnormal Lab Results - Last 24 Hours (Table) 05/10/22 Range/Units 05:50 Procalcitonin 0.26 H (0.02-0.09) ng/mL Microbiology - Last 24 Hours (Table) 05/07/22 22:30 Blood Culture - Preliminary Blood No Growth after 72 hours 05/08/22 03:54 Urine Culture - Final Urine,Voided Pseudomonas aeruginosa Assessment and Plan (1) Pneumonia Current Visit: No Status: Acute Code(s): J18.9 - PNEUMONIA, UNSPECIFIED ORGANISM SNOMED Code(s): 287982042 (2) UTI (urinary tract infection) Current Visit: No Status: Acute Code(s): N39.0 - URINARY TRACT INFECTION, SITE NOT SPECIFIED SNOMED Code(s): 90369739 Plan: 1patient presented to hospital with a right hand forearm swelling and redness with a question of possible cellulitis to the right forearm area from the previous IV site versus thrombophlebitis in this patient currently with no fever or elevated white count will benefit from a Doppler ultrasound of the right upper arm. 2patient with a worsening finding on the chest x-ray and CT concerning for possible aspiration pneumonia. 3positive UA concerning for a UTI from gram-negative pathogen urine has been finalized and pseudomonas that is sensitive to Zosyn 4patient to continue with Zosyn and monitor closely
--- NOTE | 2022-05-15 07:09 | P.PN ---
Subjective Progress Note Date: 05/12/22 Principal diagnosis: Right-hand swelling question of cellulitis pneumonia and UTI Patient is a 62-year-old -[place] female with multiple comorbidities and recurrent admission to the hospital presented to hospital with a right hand swelling, patient also does have abnormal x-ray concerning for possiblepneumonia and a positive UA concerning for UTI. On today's evaluation that is 05/12/2022, the patient continues to be afebrile patient is awake and in some simple questions and seems to be breathing comfortably on oxygen no vomiting or diarrhea was reported Objective - Vital Signs Vital signs: Vital Signs Temp 98.4 F 05/12/22 13:56 Pulse 91 05/12/22 13:56 Resp 20 05/12/22 13:56 BP 107/75 05/12/22 13:56 Pulse Ox 100 05/12/22 13:56 FiO2 Intake & Output 05/11/22 05/12/22 05/12/22 18:59 06:59 18:59 Other: Voiding Method Diaper Diaper Diaper Incontinent Incontinent Incontinent # Voids 1 # Bowel Movements 2 1 1 - Exam GENERAL DESCRIPTION: Middle-aged female lying in bed in no distress RESPIRATORY SYSTEM: Unlabored breathing , decreased breath sounds at bases HEART: S1 S2 regular rate and rhythm , ABDOMEN: Soft , no tenderness EXTREMITIES: Right hand swelling and redness has decreased - Labs CBC & Chem 7: 05/11/22 11:28 05/14/22 17:06 Labs: Abnormal Lab Results - Last 24 Hours (Table) 05/12/22 Range/Units 07:54 Sodium 148 H (137-145) mmol/L Chloride 123 H (98-107) mmol/L Carbon Dioxide 16 L (22-30) mmol/L BUN 50 H (7-17) mg/dL Creatinine 3.09 H (0.52-1.04) mg/dL Glucose 122 H (74-99) mg/dL Microbiology - Last 24 Hours (Table) 05/07/22 22:30 Blood Culture - Preliminary Blood No Growth after 96 hours 05/10/22 21:16 Blood Culture - Preliminary Blood No Growth after 24 hours Assessment and Plan (1) Pneumonia Current Visit: No Status: Acute Code(s): J18.9 - PNEUMONIA, UNSPECIFIED ORGANISM SNOMED Code(s): 546074507 (2) UTI (urinary tract infection) Current Visit: No Status: Acute Code(s): N39.0 - URINARY TRACT INFECTION, SITE NOT SPECIFIED SNOMED Code(s): 58228319 Plan: 1patient presented to hospital with a right hand forearm swelling and redness with a question of possible cellulitis to the right forearm area from the previous IV site versus thrombophlebitis in this patient currently with no fever or elevated white count will benefit from a Doppler ultrasound of the right upper arm. 2patient with a worsening finding on the chest x-ray and CT concerning for possible aspiration pneumonia. 3positive UA concerning for a UTI from gram-negative pathogen urine has been finalized and pseudomonas that is sensitive to Zosyn 4patient seemed to have shown some clinical improvement and will continue with Zosyn and monitor clinical course closely Time with Patient: Less than 30
--- NOTE | 2022-05-15 07:11 | P.PN ---
Subjective Progress Note Date: 05/13/22 Principal diagnosis: Right-hand swelling question of cellulitis pneumonia and UTI Patient is a 62-year-old -[place]ian female with multiple comorbidities and recurrent admission to the hospital presented to hospital with a right hand swelling, patient also does have abnormal x-ray concerning for possiblepneumonia and a positive UA concerning for UTI. On today's evaluation that is 05/13/2022, the patient remains to be afebrile patient is breathing comfortably on nasal cannula oxygen , no vomiting or diarrhea was reported Objective - Vital Signs Vital signs: Vital Signs Temp 97.9 F 05/13/22 07:58 Pulse 75 05/13/22 07:58 Resp 17 05/13/22 07:58 BP 130/81 05/13/22 07:58 Pulse Ox 97 05/13/22 07:58 FiO2 Intake & Output 05/12/22 05/13/22 05/13/22 18:59 06:59 18:59 Intake Total 200 550 Balance 200 550 Intake: Intake, IV Titration 200 300 Amount Dextrose 5%-0.45% NaCl 1, 200 000 ml @ 100 mls/hr IV . Q10H [facility] Rx#:[id number] Piperacillin-Tazobactam 3 100 100 .375 gm In Sodium Chloride 0.9% 100 ml @ 25 mls/hr IVPB Q12H [facility] Rx# :[id number] levETIRAcetam IV 750 mg 100 In Sodium Chloride 0.9% 100 ml @ 400 mls/hr IVPB Q24H [facility] Rx#:[id number] Oral 250 Other: Voiding Method Diaper Diaper Diaper Incontinent Incontinent Incontinent # Voids 1 # Bowel Movements 1 0 - Exam GENERAL DESCRIPTION: Middle-aged female lying in bed in no distress RESPIRATORY SYSTEM: Unlabored breathing , decreased breath sounds at bases HEART: S1 S2 regular rate and rhythm , ABDOMEN: Soft , no tenderness EXTREMITIES: Right hand swelling and redness has decreased - Labs CBC & Chem 7: 05/11/22 11:28 05/14/22 17:06 Labs: Microbiology - Last 24 Hours (Table) 05/07/22 22:30 Blood Culture - Preliminary Blood No Growth after 120 hours 05/10/22 21:16 Blood Culture - Preliminary Blood No Growth after 48 hours Assessment and Plan (1) Pneumonia Current Visit: No Status: Acute Code(s): J18.9 - PNEUMONIA, UNSPECIFIED ORGANISM SNOMED Code(s): 419545033 (2) UTI (urinary tract infection) Current Visit: No Status: Acute Code(s): N39.0 - URINARY TRACT INFECTION, SITE NOT SPECIFIED SNOMED Code(s): 55615134 Plan: 1patient presented to hospital with a right hand forearm swelling and redness with a question of possible cellulitis to the right forearm area from the previous IV site versus thrombophlebitis in this patient currently with no fever or elevated white count will benefit from a Doppler ultrasound of the right upper arm. 2patient with a worsening finding on the chest x-ray and CT concerning for possible aspiration pneumonia. 3positive UA concerning for a UTI from gram-negative pathogen urine has been finalized and pseudomonas that is sensitive to Zosyn, ultrasound of the kidneys was negative for any hydronephrosis 4patient as shown clinical improvement and will continue with Zosyn and continue supportive care Time with Patient: Less than 30
--- NOTE | 2022-05-15 07:12 | P.PN ---
Subjective Progress Note Date: 05/14/22 Principal diagnosis: Right-hand swelling question of cellulitis pneumonia and UTI Patient is a 62-year-old -[place] female with multiple comorbidities and recurrent admission to the hospital presented to hospital with a right hand swelling, patient also does have abnormal x-ray concerning for possiblepneumonia and a positive UA concerning for UTI. On today's evaluation that is 05/14/2022, the patient continues to be afebrile patient is breathing comfortably on nasal cannula oxygen , patient denied any specific complaints at this point, no vomiting or diarrhea was reported Objective - Vital Signs Vital signs: Vital Signs Temp 98.1 F 05/14/22 08:00 Pulse 87 05/14/22 08:00 Resp 17 05/14/22 08:00 BP 110/74 05/14/22 08:00 Pulse Ox 97 05/14/22 08:00 FiO2 Intake & Output 05/13/22 05/14/22 05/14/22 18:59 06:59 18:59 Intake Total 550 Output Total 150 Balance 400 Intake: Intake, IV Titration 300 Amount Dextrose 5%-0.45% NaCl 1, 200 000 ml @ 100 mls/hr IV . Q10H [facility] Rx#:[id number] Piperacillin-Tazobactam 3 100 .375 gm In Sodium Chloride 0.9% 100 ml @ 25 mls/hr IVPB Q12H [facility] Rx# :[id number] Oral 250 Output: Urine 150 Other: Voiding Method Diaper Diaper Diaper Incontinent Incontinent Incontinent External Catheter # Voids 1 1 # Bowel Movements 2 1 - Exam GENERAL DESCRIPTION: Middle-aged female lying in bed in no distress RESPIRATORY SYSTEM: Unlabored breathing , decreased breath sounds at bases HEART: S1 S2 regular rate and rhythm , ABDOMEN: Soft , no tenderness EXTREMITIES: Right hand swelling and redness has decreased - Labs CBC & Chem 7: 05/11/22 11:28 05/14/22 17:06 Labs: Microbiology - Last 24 Hours (Table) 05/07/22 22:30 Blood Culture - Final Blood No Growth after 144 hours 05/10/22 21:16 Blood Culture - Preliminary Blood No Growth after 72 hours Assessment and Plan (1) Pneumonia Current Visit: No Status: Acute Code(s): J18.9 - PNEUMONIA, UNSPECIFIED ORGANISM SNOMED Code(s): 014550653 (2) UTI (urinary tract infection) Current Visit: No Status: Acute Code(s): N39.0 - URINARY TRACT INFECTION, SITE NOT SPECIFIED SNOMED Code(s): 91259618 Plan: 1patient presented to hospital with a right hand forearm swelling and redness with a question of possible cellulitis to the right forearm area from the previous IV site versus thrombophlebitis in this patient currently with no fever or elevated white count will benefit from a Doppler ultrasound of the right upper arm. 2patient with a worsening finding on the chest x-ray and CT concerning for possible aspiration pneumonia. 3positive UA concerning for a UTI from gram-negative pathogen urine has been finalized and pseudomonas that is sensitive to Zosyn, ultrasound of the kidneys was negative for any hydronephrosis 4patient clinical condition remains to be stable and continue with the current treatment of Zosyn and continue supportive care Time with Patient: Less than 30
[2022-05-15] MEDS: LACOSAMIDE 50 MG TABLET PO SCH ×2 (08:10→22:58)
[2022-05-15] MEDS: LEVOTHYROXINE 75 MCG TAB PO SCH (08:10)
[2022-05-15] MEDS: ASPIRIN 81 MG PO SCH (08:10)
[2022-05-15] MEDS: METOPROLOL TARTRATE 50 MG TAB PO SCH ×2 (08:10→22:58)
[2022-05-15] MEDS: levETIRAcetam IV 500 MG in SODIUM CHLORIDE 0.9% 100 ML IVPB SCH (09:18)
[2022-05-15] MEDS: PANTOPRAZOLE 40 MG/10 ML VIAL IVP SCH (09:18)
[2022-05-15 10:26] LABS: ALT 13 U/L (8-44); AST 26 U/L (13-35); African American GFR (CKD) 22.8 (60.0-200.0); Albumin 2.3 g/dL (3.8-4.9); Albumin/Globulin Ratio 0.88 (1.60-3.17); Alkaline Phosphatase 50 U/L (41-126); Calcium 8.2 mg/dL (8.7-10.3); Carbon Dioxide 19.3 mmol/L (20.0-27.5); Chloride 110 mmol/L (96-109); Globulin 2.6 g/dL (1.6-3.3); Glucose 91 mg/dL (70-110); Non-African American GFR(CKD) 19.6 (60.0-200.0); Potassium 4.2 mmol/L (3.5-5.5); Sodium 142 mmol/L (135-145); Total Bilirubin <0.15 mg/dL (0.30-1.20); Total Protein 4.9 g/dL (6.2-8.2)
--- NOTE | 2022-05-15 11:16 | P.PN ---
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 Chronic pain syndrome due to muscle spasm status post pump in March 2022 Large right hemispheric parietal stroke Bedbound status Right upper extremity swelling due to prior IV axis no evidence of DVTs maintain patient on DVT prophylaxis, continue deep breathing exercises incentive spirometry monitor observe renal functions closely 05/15/2022, patient seen eval examined overall no significant change remains on 2 L oxygen intermittent cough is present, vitals are stable room air saturation 100%, advised to patient to monitor observe off of oxygen, patient remains on bicarb drip along with Zosyn. No cervical lab reviewed BUN/creatinine is 46/2.5 overall stable and improved, ultrasound of the chest reviewed very tiny pleural effusion is present the right side will monitor observe no plans for thoracentesis 05/14/2022, patient seen and evaluated examined during rounds labs reviewed [facility] reviewed care plan discussed, remains on 2 L oxygen, shortness of breath activity and exertion present, patient being treated for pseudomonas with IV Zosyn, has been placed on IV Drip as per renal services, labs from today pending, ultrasound of the kidney revealed presence of right pleural effusion will obtain dedicated right-sided ultrasound to estimate 05/12/2022, patient seen eval examined, patient remains on 2 L supplemental oxygen saturation is stable remains afebrile, woman dynamically stable, no significant changes present, last set of vitals include blood pressure 1077/75, respiratory 20, heart rate 90, temperature 98.4, situation 100% 2 L oxygen patient remains on the Keppra along with Synthroid continuation of home medications and IV Zosyn tolerating well, chemistry reviewed sodium is 148 coming down, potassium 4.8 down from 5.4 yesterday BUN/creatinine continued to improve 50/3.09, 2 sets of blood cultures have been negative however urine is positive for pseudomonas aeruginosa 05/10/2022, patient seen eval examined overall respiratory status remained stable, however he still short of breath with minimal activity in next exertion, she remains on 2 L oxygen, patient remains afebrile and hemodynamically stable intermittent tachycardia is present, T-max is 99, urine culture came back positive for pseudomonas aeruginosa, sensitive to Zosyn, Patient is a 62-year-old female came into the hospital with right arm swelling she was recently hospitalized for pneumonia she also has contracted extremities underwent pump placement for baclofen and morphine patient has been more somnolent also has ongoing problem of nausea and vomiting and inability to tolerate the pain medications. Patient is mostly nonverbal and noncommunicative daughter is present at the bedside who is a source of information, past medical history significant for CVA/TIA, dyslipidemia, hypertension hypertensive cardiovascular disease, chronic anemia, left-sided weakness and lower extremity weakness due to stroke, gout, pancreatitis, so the seizures, history of multiple brain aneurysms requiring quite ill and stent placement. Pain pump was inserted on 04/21/2022. Patient has extensive history of smoking and nicotine use quit about 8 years ago used to smoke one to 2 packs per day Of arrival she was tachypneic and tachycardic heart rate is 120 also hypertensive blood pressure 160/90 saturation 92% her right was swelling. Patient received Narcan. Patient was negative for coronary influenza, chest x-ray showed interstitial edema, patient was started on Keflex and Zithromax, also received Narcan, she was found to have acute kidney disease with BUN/creatinine of 52/3.83, troponin were less than 0.012, potassium was 5.3. Duplex ultrasound the right upper extremity negative for DVT. Computed tomography scan of the head significant for cerebral atrophy along with a right hemispheric infarct. VQ scan is very low probability for PE homogenous distribution of tracer bilaterally in the lungs noted no discrete perfusion defects seen. Computed tomography scan without contrast small tiny bilateral effusions seen along with groundglass attenuation slightly worse. Currently patient has been treated with Zosyn along with Zithromax swelling in the right upper extremity significant improvement appears to be related to prior IV axis in the hand Objective - Vital Signs Vital signs: Vital Signs Temp 97.3 F L 05/15/22 07:39 Pulse 86 05/15/22 07:39 Resp 18 05/15/22 07:39 BP 114/68 05/15/22 07:39 Pulse Ox 100 05/15/22 07:39 FiO2 Intake & Output 05/14/22 05/15/22 05/15/22 18:59 06:59 18:59 Output Total 0 Balance 0 Weight 90 kg Output: Urine 0 Other: Voiding Method Diaper External Catheter Incontinent # Voids 1 # Bowel Movements 1 - Exam - Constitutional General appearance: average body habitus, disheveled, mild distress - EENT Eyes: EOMI, PERRLA ENT: normal oropharynx Ears: bilateral: normal - Neck Carotids: bilateral: upstroke normal Thyroid: bilateral: normal size - Respiratory Respiratory: bilateral: diminished - Cardiovascular Rhythm: regular Heart sounds: normal: S1, S2 - Gastrointestinal General gastrointestinal: soft - Neurologic Contracted unable to examine neurological status at length but appears to be on the left side due to prior stroke with contractured - Labs CBC & Chem 7: 05/11/22 11:28 05/15/22 06:52 Labs: Abnormal Lab Results - Last 24 Hours (Table) 05/14/22 05/15/22 Range/Units 17:06 06:52 Potassium 5.2 H (3.5-5.1) mmol/L Chloride 113 H 110 H (98-107) mmol/L Carbon Dioxide 16 L 19.3 L (22-30) mmol/L BUN 50 H 46.0 H (7-17) mg/dL Creatinine 2.54 H 2.5 H (0.52-1.04) mg/dL Est GFR (CKD-EPI)AfAm 22.8 L (60.0-200.0) Est GFR (CKD-EPI)NonAf 19.6 L (60.0-200.0) Calcium 8.2 L 8.2 L (8.4-10.2) mg/dL Total Bilirubin <0.15 L (0.30-1.20) mg/dL Total Protein 4.9 L (6.2-8.2) g/dL Albumin 2.3 L (3.8-4.9) g/dL Albumin/Globulin Ratio 0.88 L (1.60-3.17) g/dL Microbiology - Last 24 Hours (Table) 05/10/22 21:16 Blood Culture - Preliminary Blood No Growth after 96 hours Assessment and Plan Assessment: Right-sided pleural effusion, reviewed ultrasound of the chest very tiny effusion is present we'll monitor observe Urinary tract infection with Pseudomonas aeruginosa sensitive to Zosyn, will continue it, however can be switched to oral like Augmentin Acute hypoxic respiratory failure due to bilateral healthcare associated pneumonia, Acute on chronic kidney disease with slight improvement in kidney function 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
[2022-05-15 12:34] LABS: Basophils # (A) 0.02 X 10*3/uL (0.00-0.10); Basophils % (A) 0.3 %; Eosinophils # (A) 0.42 X 10*3/uL (0.04-0.35); Eosinophils % (A) 6.3 %; Immature Grans, Automated 0.9 %; Lymphocytes # (A) 2.79 X 10*3/uL (0.90-5.00); Lymphocytes % (A) 41.8 %; Monocytes # (A) 0.86 X 10*3/uL (0.20-1.00); Monocytes % (A) 12.9 %; NRBC Per 100 WBC 0.7 /100 WBCS (0.0-0.0); Neutrophils # (A) 2.53 X 10*3/uL (1.80-7.70); Neutrophils % (A) 37.8 %
[2022-05-15 12:39] LABS: Anisocytosis (M) 2+; Crenated RBC 2+; HCT 20.2 % (37.2-46.3); HGB 6.6 g/dL (12.0-15.0); MCH 23.7 pg (27.0-32.0); MCHC 32.7 g/dL (32.0-37.0); MCV 72.7 fL (80.0-97.0); Mean Platelet Volume 11.3 fL (9.5-12.2); Microcytosis (M) 2+; Platelet Count 235 X 10*3/uL (140-440); Polychromasia 2+; RBC 2.78 X 10*6/uL (4.10-5.20); RDW 19.8 % (11.5-14.5); Target Cells 2+; WBC 6.68 X 10*3/uL (4.50-10.00)
--- NOTE | 2022-05-15 13:57 | P.PN ---
Subjective Patient is seen for follow-up for acute kidney injury. Patient is currently maintained on IV fluids. Urine output has been borderline. Ultrasound does not show any hydronephrosis. No complaints of chest pain or shortness of breath. Patient is maintained on home O2 She has swelling in her legs Being fed by staff. Urine output at 2 50 mL last 8 hours. Status post IV Lasix yesterday. Objective - Vital Signs Vital signs: Vital Signs Temp 97.3 F L 05/15/22 07:39 Pulse 86 05/15/22 07:39 Resp 18 05/15/22 07:39 BP 114/68 05/15/22 07:39 Pulse Ox 100 05/15/22 07:39 FiO2 Intake & Output 05/14/22 05/15/22 05/15/22 18:59 06:59 18:59 Output Total 0 Balance 0 Weight 90 kg Output: Urine 0 Other: Voiding Method Diaper External Catheter Incontinent # Voids 1 # Bowel Movements 1 - Exam Awake, comfortable, not in any acute distress Examination of the heart S1 and S2 Examination of the lungs decreased breath sounds at the bases Abdomen is soft nontender Examination of the lower extremities shows edema 2+ bilaterally Contractures in left upper and lower extremity - Labs CBC & Chem 7: 05/15/22 06:52 05/15/22 06:52 Labs: Abnormal Lab Results - Last 24 Hours (Table) 05/14/22 05/15/22 05/15/22 Range/Units 17:06 06:52 06:52 RBC 2.78 L (4.10-5.20) X 10*6/uL Hgb 6.6 L* (12.0-15.0) g/dL Hct 20.2 L (37.2-46.3) % MCV 72.7 L (80.0-97.0) fL MCH 23.7 L (27.0-32.0) pg RDW 19.8 H (11.5-14.5) % Absolute Nucleated RBC 0.05 H (0.00-0.00) X 10*3/uL Immature Gran # 0.06 H (0.00-0.04) X 10*3/uL Eosinophils # 0.42 H (0.04-0.35) X 10*3/uL NRBC/100 WBC Diff 0.7 H (0.0-0.0) /100 WBCS Potassium 5.2 H (3.5-5.1) mmol/L Chloride 113 H 110 H (98-107) mmol/L Carbon Dioxide 16 L 19.3 L (22-30) mmol/L BUN 50 H 46.0 H (7-17) mg/dL Creatinine 2.54 H 2.5 H (0.52-1.04) mg/dL Est GFR (CKD-EPI)AfAm 22.8 L (60.0-200.0) Est GFR (CKD-EPI)NonAf 19.6 L (60.0-200.0) Calcium 8.2 L 8.2 L (8.4-10.2) mg/dL Total Bilirubin <0.15 L (0.30-1.20) mg/dL Total Protein 4.9 L (6.2-8.2) g/dL Albumin 2.3 L (3.8-4.9) g/dL Albumin/Globulin Ratio 0.88 L (1.60-3.17) g/dL Microbiology - Last 24 Hours (Table) 05/10/22 21:16 Blood Culture - Preliminary Blood No Growth after 96 hours Assessment and Plan Assessment: 1. Acute kidney injury associated with low blood pressure, nonoliguric. Ultrasound shows no evidence of obstruction. UA shows trace protein and trace blood. 2. Metabolic acidosis associated with acute kidney injury 3. Mild hypernatremia associated with decreased free water intake 4. Mental status changes possibly related to pain medications, patient was on morphine pump at home. Mentation appears to have improved 5. Hyperkalemia associated with acute kidney injury and metabolic acidosis currently improved 6. Mild volume overload 7. UTI with urine culture growing Pseudomonas 8. Anemia with hemoglobin 6.6 today, no active bleeding noted, check iron prof ile Plan: Continue with the bicarb drip Repeat IV Lasix today Repeat labs in a.m. Packed RBCs transfusion
[2022-05-15] MEDS: FUROSEMIDE 10 MG/ML 4 ML VIAL IV SCH (14:48)
[2022-05-15] MEDS: DEXTROSE 5% IN WATER 1,000 ML with SODIUM BICARB (1 MEQ/ML) 100 ML IV SCH (18:07)
--- NOTE | 2022-05-15 21:16 | P.CONS ---
History of Present Illness - Reason for Consult Consult date: 05/15/22 Anemia - Chief Complaint Metabolic encephalopathy - History of Present Illness Ms. Urbano is a 62 year old woman with a PMHx significant for CVA with contractures and CKD who was initially admitted for metabolic encephalopathy. Urine culture is significant for psuemodonas aeruginosa, for which she is undergoing antibiotic treatment. Her hemoglobin on admission was noted to be 7.2 with MCV 80.5. Hematology was consulted for anemia. Based upon chart review, she's been noted to have persistent normo- to microcytic anemia with baseline hemoglobin around 10. She has had previous workup for anemia on previous admissions, most notably on 07/28/2021. At that time, she had ferritin 2224 with vitamin B12 817 and folate 10. SPEP revealed no monoclonal gammopathy. She currently reports being frightened due to being admitted. She denies any family history of anemia or known blood disorders, but is unable to provide full history due to her prior history of CVA. Review of Systems ROS unobtainable: due to mental status Past Medical History Past Medical History: CVA/TIA, Hyperlipidemia, Hypertension, Osteoarthritis (OA) Additional Past Medical History / Comment(s): ANEMIA, CVA WITH L ARM WEAKNESS AND bilateral LEG WEAKNESS, hx. 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 Past Psychological History: Anxiety, Depression, Schizophrenia Additional Psychological History / Comment(s): paranoid schizophrenia Smoking Status: Former smoker Additional Past Alcohol Use History / Comment(s): Stopped smoking 2012 or 2013 - Past Family History Sister(s) Family Medical History: Myocardial Infarction (DC) Father Family Medical History: Cancer Additional Family Medical History / Comment(s): throat, lung, and rectal cancer Mother Family Medical History: Myocardial Infarction (DC) Additional Family Medical History / Comment(s): stroke Medications and Allergies Home Medications Medication Instructions Recorded Confirmed Type Aspirin EC [Ecotrin Low Dose] 81 mg PO DAILY 04/12/16 05/08/22 History Metoprolol Tartrate 100 mg PO BID 01/04/17 05/08/22 History Sertraline [Zoloft] 100 mg PO DAILY 01/04/17 05/08/22 History Omeprazole [PriLOSEC] 20 mg PO DAILY 02/09/20 05/08/22 History Atorvastatin [Lipitor] 20 mg PO HS #30 tab 02/13/20 05/08/22 Rx Divalproex [Depakote] 500 mg PO BID 02/20/22 05/08/22 History Levothyroxine Sodium [Synthroid] 75 mcg PO DAILY 02/20/22 05/08/22 History Sertraline [Zoloft] 25 mg PO DAILY 02/20/22 05/08/22 History Divalproex [Depakote] 250 mg PO HS 04/24/22 05/08/22 History HYDROcodone/APAP 5-325MG [Aurora 1 tab PO Q4H PRN 04/24/22 05/08/22 History 5-325] Lacosamide [Vimpat] 100 mg PO BID 30 Days #60 tab 04/29/22 05/08/22 Rx risperiDONE [RisperDAL] 1 mg PO HS 30 Days #30 tab 04/29/22 05/08/22 Rx Morphine Pain Pump 1 dose MISCELLANE DIRECTED 05/08/22 05/08/22 History Ondansetron Odt [Zofran ODT] 4 mg PO TID 05/08/22 05/08/22 History Allergies Allergy/AdvReac Type Severity Reaction Status Date / Time No Known Allergies Allergy Verified 05/08/22 09:48 Physical Exam Vitals: Vital Signs Temp Pulse Pulse Resp BP BP Pulse Ox 05/15/22 19:55 97.9 F 97 16 150/85 97 05/15/22 17:54 98.8 F 102 H 17 160/98 05/15/22 17:52 98.8 F 102 H 17 160/98 05/15/22 15:58 98.0 F 90 16 150/90 05/15/22 15:38 98.4 F 93 16 163/90 05/15/22 15:28 98.4 F 89 16 137/83 05/15/22 14:00 98.3 F 92 17 130/85 100 05/15/22 07:39 97.3 F L 86 18 114/68 100 05/15/22 02:00 97.9 F 88 16 90/43 99 Intake and Output 05/15/22 05/15/22 05/15/22 06:59 14:59 22:59 Intake Total 279 Output Total 0 300 Balance 0 -21 Intake: Blood Product 279 Rc Pheresis 2 As3 Unit 279 [id number] Output: Urine 0 300 Other: Voiding Method External Catheter - Constitutional General appearance: cooperative, mild distress - EENT Eyes: EOMI - Respiratory Respiratory: bilateral: CTA - Cardiovascular Rhythm: regular - Gastrointestinal General gastrointestinal: normal bowel sounds, soft - Integumentary Integumentary: no rash - Neurologic Contractures of upper and lower extremities bilaterally Results CBC & Chem 7: 05/15/22 06:52 05/15/22 06:52 Labs: Abnormal Lab Results - Last 24 Hours (Table) 05/15/22 05/15/22 05/15/22 Range/Units 06:52 06:52 13:21 RBC 2.78 L (4.10-5.20) X 10*6/uL Hgb 6.6 L* (12.0-15.0) g/dL Hct 20.2 L (37.2-46.3) % MCV 72.7 L (80.0-97.0) fL MCH 23.7 L (27.0-32.0) pg RDW 19.8 H (11.5-14.5) % Absolute Nucleated RBC 0.05 H (0.00-0.00) X 10*3/uL Immature Gran # 0.06 H (0.00-0.04) X 10*3/uL Eosinophils # 0.42 H (0.04-0.35) X 10*3/uL NRBC/100 WBC Diff 0.7 H (0.0-0.0) /100 WBCS Chloride 110 H (96-109) mmol/L Carbon Dioxide 19.3 L (20.0-27.5) mmol/L BUN 46.0 H (9.0-27.0) mg/dL Creatinine 2.5 H (0.6-1.5) mg/dL Est GFR (CKD-EPI)AfAm 22.8 L (60.0-200.0) Est GFR (CKD-EPI)NonAf 19.6 L (60.0-200.0) Calcium 8.2 L (8.7-10.3) mg/dL Total Bilirubin <0.15 L (0.30-1.20) mg/dL Total Protein 4.9 L (6.2-8.2) g/dL Albumin 2.3 L (3.8-4.9) g/dL Albumin/Globulin Ratio 0.88 L (1.60-3.17) g/dL Crossmatch See Detail Microbiology - Last 24 Hours (Table) 05/10/22 21:16 Blood Culture - Preliminary Blood No Growth after 96 hours Assessment and Plan Assessment: Ms. Urbano is a 62 year old woman with a PMHx significant for CVA with contractures and CKD admitted for acute metabolic encephalopathy found to have pseudomonas aeruginosa UTI for whom hematology has been consulted for anemia. (1) Microcytic anemia Current Visit: Yes Status: Acute Code(s): D50.9 - IRON DEFICIENCY ANEMIA, UNSPECIFIED SNOMED Code(s): 991453054 Plan: #Microcytic to normocytic anemia -Hgb on admission is 7.2 from baseline of around 10 -Previous anemia workup did not reveal etiology -Review of prior CBCs reveal evidence of microcytic anemia with elevated ferritin -She likely has component of anemia of chronic inflammation due to CKD along with superimposed acute myelosuppression due to infection -In addition, she could have thalassemia given the microcytosis without evidence of iron deficiency -Recommend checking hemoglobin electrophoresis. This should be obtained prior to blood transfusion for accurate assessment
[2022-05-15] MEDS: levETIRAcetam IV 750 MG in SODIUM CHLORIDE 0.9% 100 ML IVPB SCH (22:50)
[2022-05-15] MEDS: ATORVASTATIN 20 MG TAB PO SCH (22:58)
--- NOTE | 2022-05-15 23:34 | PN ---
PROGRESS NOTE SUBJECTIVE: Her hemoglobin is down to 7.2 today. She is more alert, giving appropriate answers. She had a chest ultrasound today. This showed a small right pleural effusion. We have to get consult with Hematology for severe anemia. Hemoglobin is 7.2. She is 93% on 2 L. Blood pressure 131/86, temperature 98.4, pulse 74, respiratory rate 17. She has Pseudomonas urine culture. Her blood cultures are negative so far. She is sensitive to multiple antibiotics for Pseudomonas UTI. We emphasize recommendations for long-term antibiotics. Get hematology consult. Get PT OT involved. OBJECTIVE: LUNGS: Clear. CARDIOVASCULAR: S1, S2. NEUROLOGIC: She is weak, lethargic, unable to ambulate by herself. ASSESSMENT: Morphine pump has been reversed. Prognosis guarded. She has a UTI with Pseudomonas aeruginosa. She has bilateral pneumonia, possible aspiration pneumonia, COPD, heart disease, renal disease, stage 3-4. Hematology, chest ultrasound was negative as mentioned above. Dr. Simon has been seeing her for renal. BUN is 50, creatinine is 3.09. She has mild volume overload, UTI with Pseudomonas. Lasix x1. Decreased bicarb drip. Check bladder scan. Encourage oral intake. Metabolic acidosis secondary to acute kidney injury, acute kidney injury prerenal with low blood pressure, nonoliguric, hyperkalemia, acute kidney injury. Prognosis extremely guarded. Continue with PT, OT. Possible rehab placement. JOURDAN / LYLEN: [id number] /
[2022-05-16] MEDS: diphenhydrAMINE 50 MG/ML 1 ML VIAL IVP PRN (00:21)
[2022-05-16 01:18] LABS: % Iron Saturation 52.08 (12.00-45.00)
[2022-05-16] MEDS: DEXTROSE 5% IN WATER 1,000 ML with SODIUM BICARB (1 MEQ/ML) 100 ML IV SCH (01:50)
[2022-05-16] MEDS: PIPERACILLIN-TAZOBACTAM 3.375 GM in SODIUM CHLORIDE 0.9% 100 ML IVPB SCH ×2 (04:01→18:28)
[2022-05-16] MEDS: LEVOTHYROXINE 75 MCG TAB PO SCH (05:59)
[2022-05-16] MEDS: PANTOPRAZOLE 40 MG/10 ML VIAL IVP SCH (08:11)
[2022-05-16 08:15] LABS: Anisocytosis Slight; Basophils # (A) 0.1 k/uL (0-0.2); Basophils % (A) 1 %; Eosinophils # (A) 0.3 k/uL (0-0.7); Eosinophils % (A) 5 %; Hypochromasia Marked; Lymphocytes # (A) 2.7 k/uL (1.0-4.8); Lymphocytes % (A) 39 %; MCH 26.3 pg (25.0-35.0); MCHC 30.9 g/dL (31.0-37.0); MCV 84.9 fL (80.0-100.0); Mean Platelet Volume 9.3; Monocytes # (A) 0.7 k/uL (0-1.0); Monocytes % (A) 10 %; Neutrophils # (A) 2.9 k/uL (1.3-7.7); Neutrophils % (A) 43 %; Platelet Count 167 k/uL (150-450); Poikilocytosis Slight; RBC 3.66 m/uL (3.80-5.40); RDW 18.9 % (11.5-15.5); WBC 6.8 k/uL (3.8-10.6)
[2022-05-16] MEDS: FUROSEMIDE 10 MG/ML 4 ML VIAL IV SCH (08:15)
[2022-05-16 08:17] LABS: HGB 9.6 gm/dL (11.4-16.0)
[2022-05-16] MEDS: METOPROLOL TARTRATE 50 MG TAB PO SCH ×2 (08:18→21:24)
[2022-05-16] MEDS: LACOSAMIDE 50 MG TABLET PO SCH ×2 (08:18→21:25)
[2022-05-16] MEDS: ASPIRIN 81 MG PO SCH (08:18)
[2022-05-16] MEDS: levETIRAcetam IV 500 MG in SODIUM CHLORIDE 0.9% 100 ML IVPB SCH (08:23)
[2022-05-16] MEDS: SODIUM BICARBONATE TAB 650 MG TAB PO SCH ×2 (11:26→21:25)
[2022-05-16 11:58] LABS: African American GFR (CKD) 25.2 (60.0-200.0); Albumin 2.6 g/dL (3.8-4.9); Albumin/Globulin Ratio 0.93 (1.60-3.17); Anion Gap 14.7 mmol/L (10.00-18.00); BUN/Creat Ratio 20.35 Ratio (12.00-20.00); Blood Urea Nitrogen 46.8 mg/dL (9.0-27.0); Calcium 8.3 mg/dL (8.7-10.3); Carbon Dioxide 18.3 mmol/L (20.0-27.5); Globulin 2.8 g/dL (1.6-3.3); Non-African American GFR(CKD) 21.7 (60.0-200.0); Potassium 4.5 mmol/L (3.5-5.5); Total Bilirubin 0.2 mg/dL (0.30-1.20); Total Protein 5.4 g/dL (6.2-8.2)
--- NOTE | 2022-05-16 12:01 | P.PN ---
Subjective Patient is seen for follow-up for acute kidney injury. Patient is currently maintained on IV fluids. Urine output has been borderline. Ultrasound does not show any hydronephrosis. No complaints of chest pain or shortness of breath. Patient is maintained on home O2 She has swelling in her legs Being fed by staff. Urine output is not accurately charted. Maintained on IV Lasix daily. Labs pending from today Objective - Vital Signs Vital signs: Vital Signs Temp 97.5 F L 05/16/22 07:27 Pulse 89 05/16/22 07:27 Resp 16 05/16/22 07:27 BP 109/75 05/16/22 07:27 Pulse Ox 97 05/16/22 07:27 FiO2 Intake & Output 05/15/22 05/16/22 05/16/22 18:59 06:59 18:59 Intake Total 279 Output Total 300 200 Balance -21 -200 Intake: Blood Product 279 Rc Pheresis 2 As3 Unit 279 [id number] Output: Urine 300 200 Other: Voiding Method External Catheter External Catheter # Bowel Movements 1 1 - Exam Awake, comfortable, not in any acute distress Examination of the heart S1 and S2 Examination of the lungs decreased breath sounds at the bases Abdomen is soft nontender Examination of the lower extremities shows edema 2+ bilaterally Contractures in left upper and lower extremity - Labs CBC & Chem 7: 05/16/22 05:42 05/15/22 06:52 Labs: Abnormal Lab Results - Last 24 Hours (Table) 05/15/22 05/15/22 05/15/22 Range/Units 06:52 06:52 13:21 RBC 2.78 L (4.10-5.20) X 10*6/uL Hgb 6.6 L* (12.0-15.0) g/dL Hct 20.2 L (37.2-46.3) % MCV 72.7 L (80.0-97.0) fL MCH 23.7 L (27.0-32.0) pg MCHC (31.0-37.0) g/dL RDW 19.8 H (11.5-14.5) % Absolute Nucleated RBC 0.05 H (0.00-0.00) X 10*3/uL Immature Gran # 0.06 H (0.00-0.04) X 10*3/uL Eosinophils # 0.42 H (0.04-0.35) X 10*3/uL NRBC/100 WBC Diff 0.7 H (0.0-0.0) /100 WBCS TIBC 144 L (228-460) ug/dL % Saturation 52.08 H (12.00-45.00) Transferrin 103.0 L (204.0-354.0) mg/dL Crossmatch See Detail 05/16/22 Range/Units 05:42 RBC 3.66 L (4.10-5.20) X 10*6/uL Hgb 9.6 L D (12.0-15.0) g/dL Hct 31.0 L (37.2-46.3) % MCV (80.0-97.0) fL MCH (27.0-32.0) pg MCHC 30.9 L (31.0-37.0) g/dL RDW 18.9 H (11.5-14.5) % Absolute Nucleated RBC (0.00-0.00) X 10*3/uL Immature Gran # (0.00-0.04) X 10*3/uL Eosinophils # (0.04-0.35) X 10*3/uL NRBC/100 WBC Diff (0.0-0.0) /100 WBCS TIBC (228-460) ug/dL % Saturation (12.00-45.00) Transferrin (204.0-354.0) mg/dL Crossmatch Microbiology - Last 24 Hours (Table) 05/10/22 21:16 Blood Culture - Preliminary Blood No Growth after 120 hours Assessment and Plan Assessment: 1. Acute kidney injury associated with low blood pressure, nonoliguric. Ultrasound shows no evidence of obstruction. UA shows trace protein and trace blood. 2. Metabolic acidosis associated with acute kidney injury 3. Mild hypernatremia associated with decreased free water intake, improving 4. Mental status changes possibly related to pain medications, patient was on morphine pump at home. Mentation appears to have improved 5. Hyperkalemia associated with acute kidney injury and metabolic acidosis currently improved 6. Mild volume overload 7. UTI with urine culture growing Pseudomonas 8. Anemia with hemoglobin 6.6 today, no active bleeding noted, iron replete. Possible anemia of chronic disease, although unlikely is previous creatinine was 0.6 on 04/28/2022 Plan: Follow-up on labs and DC IV bicarb Continue with oral sodium bicarb
--- NOTE | 2022-05-16 13:28 | P.PN ---
Subjective Progress Note Date: 05/16/22 Principal diagnosis: Acute hypoxic respiratory failure due to bilateral healthcare associated pneumonia, continue Zosyn and Zithromax, continue supplemental oxygen, Acute on chronic kidney disease History of CVA with residual left hemiparesis and contractured status Chronic pain syndrome due to muscle spasm status post pump in March 2022 Large right hemispheric parietal stroke Bedbound status Right upper extremity swelling due to prior IV axis no evidence of DVTs maintain patient on DVT prophylaxis, continue deep breathing exercises incentive spirometry monitor observe renal functions closely 05/16/2022, patient seen eval examined during the rounds overall fairly stable with 2 L oxygen patient remains on broad-spectrum antibiotics has been on bicarb which is being changed to oral as per nephrology, remains afebrile hemodynamically stable with oxygen saturation of 95-97% room air 05/15/2022, patient seen eval examined overall no significant change remains on 2 L oxygen intermittent cough is present, vitals are stable room air saturation 100%, advised to patient to monitor observe off of oxygen, patient remains on bicarb drip along with Zosyn. No cervical lab reviewed BUN/creatinine is 46/2.5 overall stable and improved, ultrasound of the chest reviewed very tiny pleural effusion is present the right side will monitor observe no plans for t horacentesis 05/14/2022, patient seen and evaluated examined during rounds labs reviewed medications reviewed care plan discussed, remains on 2 L oxygen, shortness of breath activity and exertion present, patient being treated for pseudomonas with IV Zosyn, has been placed on IV Drip as per renal services, labs from today pending, ultrasound of the kidney revealed presence of right pleural effusion will obtain dedicated right-sided ultrasound to estimate 05/12/2022, patient seen eval examined, patient remains on 2 L supplemental oxygen saturation is stable remains afebrile, woman dynamically stable, no significant changes present, last set of vitals include blood pressure 1077/75, respiratory 20, heart rate 90, temperature 98.4, situation 100% 2 L oxygen patient remains on the Keppra along with Synthroid continuation of home medications and IV Zosyn tolerating well, chemistry reviewed sodium is 148 coming down, potassium 4.8 down from 5.4 yesterday BUN/creatinine continued to improve 50/3.09, 2 sets of blood cultures have been negative however urine is positive for pseudomonas aeruginosa 05/10/2022, patient seen eval examined overall respiratory status remained stable, however he still short of breath with minimal activity in next exertion, she remains on 2 L oxygen, patient remains afebrile and hemodynamically stable intermittent tachycardia is present, T-max is 99, urine culture came back positive for pseudomonas aeruginosa, sensitive to Zosyn, Patient is a 62-year-old female came into the hospital with right arm swelling she was recently hospitalized for pneumonia she also has contracted extremities underwent pump placement for baclofen and morphine patient has been more somnolent also has ongoing problem of nausea and vomiting and inability to tolerate the pain medications. Patient is mostly nonverbal and noncommunicative daughter is present at the bedside who is a source of information, past medical history significant for CVA/TIA, dyslipidemia, hypertension hypertensive cardiovascular disease, chronic anemia, left-sided weakness and lower extremity weakness due to stroke, gout, pancreatitis, so the seizures, history of multiple brain aneurysms requiring quite ill and stent placement. Pain pump was inserted on 04/21/2022. Patient has extensive history of smoking and nicotine use quit about 8 years ago used to smoke one to 2 packs per day Of arrival she was tachypneic and tachycardic heart rate is 120 also hypertensive blood pressure 160/90 saturation 92% her right was swelling. Patient received Narcan. Patient was negative for coronary influenza, chest x-ray showed interstitial edema, patient was started on Keflex and Zithromax, also received Narcan, she was found to have acute kidney disease with BUN/creatinine of 52/3.83, troponin were less than 0.012, potassium was 5.3. Duplex ultrasound the right upper extremity negative for DVT. Computed tomography scan of the head significant for cerebral atrophy along with a right hemispheric infarct. VQ scan is very low probability for PE homogenous distribution of tracer bilaterally in the lungs noted no discrete perfusion defects seen. Computed tomography scan without contrast sma ll tiny bilateral effusions seen along with groundglass attenuation slightly worse. Currently patient has been treated with Zosyn along with Zithromax swelling in the right upper extremity significant improvement appears to be related to prior IV axis in the hand Objective - Vital Signs Vital signs: Vital Signs Temp 97.5 F L 05/16/22 07:27 Pulse 89 05/16/22 07:27 Resp 16 05/16/22 07:27 BP 109/75 05/16/22 07:27 Pulse Ox 97 05/16/22 07:27 FiO2 Intake & Output 05/15/22 05/16/22 05/16/22 18:59 06:59 18:59 Intake Total 279 Output Total 300 200 500 Balance -21 200 -500 Intake: Blood Product 279 Rc Pheresis 2 As3 Unit 279 [id number] Output: Urine 300 200 500 Other: Voiding Method External Catheter External Catheter # Bowel Movements 1 2 - Exam - Constitutional General appearance: average body habitus, disheveled, mild distress - EENT Eyes: EOMI, PERRLA ENT: normal oropharynx Ears: bilateral: normal - Neck Carotids: bilateral: upstroke normal Thyroid: bilateral: normal size - Respiratory Respiratory: bilateral: diminished - Cardiovascular Rhythm: regular Heart sounds: normal: S1, S2 - Gastrointestinal General gastrointestinal: soft - Neurologic Contracted unable to examine neurological status at length but appears to be on the left side due to prior stroke with contractured - Labs CBC & Chem 7: 05/16/22 05:42 05/16/22 05:42 Labs: Abnormal Lab Results - Last 24 Hours (Table) 05/15/22 05/15/22 05/16/22 Range/Units 06:52 13:21 05:42 RBC 3.66 L (3.80-5.40) m/uL Hgb 9.6 L D (11.4-16.0) gm/dL Hct 31.0 L (34.0-46.0) % MCHC 30.9 L (31.0-37.0) g/dL RDW 18.9 H (11.5-15.5) % Carbon Dioxide (20.0-27.5) mmol/L BUN (9.0-27.0) mg/dL Creatinine (0.6-1.5) mg/dL Est GFR (CKD-EPI)AfAm (60.0-200.0) Est GFR (CKD-EPI)NonAf (60.0-200.0) BUN/Creatinine Ratio (12.00-20.00) Ratio Calcium (8.7-10.3) mg/dL TIBC 144 L (228-460) ug/dL % Saturation 52.08 H (12.00-45.00) Transferrin 103.0 L (204.0-354.0) mg/dL Total Bilirubin (0.30-1.20) mg/dL Total Protein (6.2-8.2) g/dL Albumin (3.8-4.9) g/dL Albumin/Globulin Ratio (1.60-3.17) g/dL Crossmatch See Detail 05/16/22 Range/Units 05:42 RBC (3.80-5.40) m/uL Hgb (11.4-16.0) gm/dL Hct (34.0-46.0) % MCHC (31.0-37.0) g/dL RDW (11.5-15.5) % Carbon Dioxide 18.3 L (20.0-27.5) mmol/L BUN 46.8 H (9.0-27.0) mg/dL Creatinine 2.3 H (0.6-1.5) mg/dL Est GFR (CKD-EPI)AfAm 25.2 L (60.0-200.0) Est GFR (CKD-EPI)NonAf 21.7 L (60.0-200.0) BUN/Creatinine Ratio 20.35 H (12.00-20.00) Ratio Calcium 8.3 L (8.7-10.3) mg/dL TIBC (228-460) ug/dL % Saturation (12.00-45.00) Transferrin (204.0-354.0) mg/dL Total Bilirubin 0.20 L (0.30-1.20) mg/dL Total Protein 5.4 L (6.2-8.2) g/dL Albumin 2.6 L (3.8-4.9) g/dL Albumin/Globulin Ratio 0.93 L (1.60-3.17) g/dL Crossmatch Microbiology - Last 24 Hours (Table) 05/10/22 21:16 Blood Culture - Preliminary Blood No Growth after 120 hours Assessment and Plan Assessment: Right-sided pleural effusion, reviewed ultrasound of the chest very tiny effus ion is present we'll monitor observe Urinary tract infection with Pseudomonas aeruginosa sensitive to Zosyn, will continue it, however can be switched to oral like Augmentin Acute hypoxic respiratory failure due to bilateral healthcare associated pneumonia, Acute on chronic kidney disease with slight improvement in kidney function 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
--- NOTE | 2022-05-16 15:52 | P.PN ---
Subjective Progress Note Date: 05/15/22 Principal diagnosis: Right-hand swelling question of cellulitis pneumonia and UTI Patient is a 62-year-old -[place] female with multiple comorbidities and recurrent admission to the hospital presented to hospital with a right hand swelling, patient also does have abnormal x-ray concerning for possiblepneumonia and a positive UA concerning for UTI. On today's evaluation that is 05/15/2022, the patient remains to be afebrile patient is more awake and alert today, the patient is breathing comfortably on nasal cannula oxygen , patient denied any specific complaints at this point, no vomiting or diarrhea was reported Objective - Vital Signs Vital signs: Vital Signs Temp 97.3 F L 05/15/22 07:39 Pulse 86 05/15/22 07:39 Resp 18 05/15/22 07:39 BP 114/68 05/15/22 07:39 Pulse Ox 100 05/15/22 07:39 FiO2 Intake & Output 05/14/22 05/15/22 05/15/22 18:59 06:59 18:59 Output Total 0 Balance 0 Weight 90 kg Output: Urine 0 Other: Voiding Method Diaper External Catheter Incontinent # Voids 1 # Bowel Movements 1 - Exam GENERAL DESCRIPTION: Middle-aged female lying in bed in no distress RESPIRATORY SYSTEM: Unlabored breathing , decreased breath sounds at bases HEART: S1 S2 regular rate and rhythm , ABDOMEN: Soft , no tenderness EXTREMITIES: Right hand swelling and redness has decreased - Labs CBC & Chem 7: 05/16/22 05:42 05/16/22 05:42 Labs: Abnormal Lab Results - Last 24 Hours (Table) 05/14/22 05/15/22 05/15/22 Range/Units 17:06 06:52 06:52 RBC 2.78 L (4.10-5.20) X 10*6/uL Hgb 6.6 L* (12.0-15.0) g/dL Hct 20.2 L (37.2-46.3) % MCV 72.7 L (80.0-97.0) fL MCH 23.7 L (27.0-32.0) pg RDW 19.8 H (11.5-14.5) % Absolute Nucleated RBC 0.05 H (0.00-0.00) X 10*3/uL Immature Gran # 0.06 H (0.00-0.04) X 10*3/uL Eosinophils # 0.42 H (0.04-0.35) X 10*3/uL NRBC/100 WBC Diff 0.7 H (0.0-0.0) /100 WBCS Potassium 5.2 H (3.5-5.1) mmol/L Chloride 113 H 110 H (98-107) mmol/L Carbon Dioxide 16 L 19.3 L (22-30) mmol/L BUN 50 H 46.0 H (7-17) mg/dL Creatinine 2.54 H 2.5 H (0.52-1.04) mg/dL Est GFR (CKD-EPI)AfAm 22.8 L (60.0-200.0) Est GFR (CKD-EPI)NonAf 19.6 L (60.0-200.0) Calcium 8.2 L 8.2 L (8.4-10.2) mg/dL Total Bilirubin <0.15 L (0.30-1.20) mg/dL Total Protein 4.9 L (6.2-8.2) g/dL Albumin 2.3 L (3.8-4.9) g/dL Albumin/Globulin Ratio 0.88 L (1.60-3.17) g/dL Microbiology - Last 24 Hours (Table) 05/10/22 21:16 Blood Culture - Preliminary Blood No Growth after 96 hours Assessment and Plan (1) Pneumonia Current Visit: No Status: Acute Code(s): J18.9 - PNEUMONIA, UNSPECIFIED ORGANISM SNOMED Code(s): 260500179 (2) UTI (urinary tract infection) Current Visit: No Status: Acute Code(s): N39.0 - URINARY TRACT INFECTION, SITE NOT SPECIFIED SNOMED Code(s): 84672719 Plan: 1patient presented to hospital with a right hand forearm swelling and redness with a question of possible cellulitis to the right forearm area from the pr evious IV site versus thrombophlebitis in this patient currently with no fever or elevated white count Doppler ultrasound was suspicious for a superficial clot in the cephalic vein 2patient with a worsening finding on the chest x-ray and CT concerning for possible aspiration pneumonia. 3positive UA concerning for a UTI from gram-negative pathogen, the patient urine has been finalized and pseudomonas that is sensitive to Zosyn, ultrasound of the kidneys was negative for any hydronephrosis 4patient has shown clinical improvement and will continue with the current treatment of Zosyn and continue supportive care Time with Patient: Less than 30
--- NOTE | 2022-05-16 15:53 | P.PN ---
Subjective Progress Note Date: 05/16/22 Principal diagnosis: Right-hand swelling question of cellulitis pneumonia and UTI Patient is a 62-year-old -[place] female with multiple comorbidities and recurrent admission to the hospital presented to hospital with a right hand swelling, patient also does have abnormal x-ray concerning for possiblepneumonia and a positive UA concerning for UTI. On today's evaluation that is 05/16/2022, the patient denies any fever or any chills, the patient is breathing comfortably on nasal cannula oxygen , patient denies any chest pain or shortness of breath or cough no abdominal pain no diarrhea she is feeling better and wants to go home Objective - Vital Signs Vital signs: Vital Signs Temp 97.5 F L 05/16/22 07:27 Pulse 89 05/16/22 07:27 Resp 16 05/16/22 07:27 BP 109/75 05/16/22 07:27 Pulse Ox 97 05/16/22 07:27 FiO2 Intake & Output 05/15/22 05/16/22 05/16/22 18:59 06:59 18:59 Intake Total 279 Output Total 300 200 500 Balance -21 -200 -500 Intake: Blood Product 279 Rc Pheresis 2 As3 Unit 279 [id number] Output: Urine 300 200 500 Other: Voiding Method External Catheter External Catheter # Bowel Movements 1 2 - Exam GENERAL DESCRIPTION: Middle-aged female lying in bed in no distress RESPIRATORY SYSTEM: Unlabored breathing , decreased breath sounds at bases HEART: S1 S2 regular rate and rhythm , ABDOMEN: Soft , no tenderness EXTREMITIES: Right hand swelling and redness has decreased - Labs CBC & Chem 7: 05/16/22 05:42 05/16/22 05:42 Labs: Abnormal Lab Results - Last 24 Hours (Table) 05/15/22 05/15/22 05/16/22 Range/Units 06:52 13:21 05:42 RBC 3.66 L (3.80-5.40) m/uL Hgb 9.6 L D (11.4-16.0) gm/dL Hct 31.0 L (34.0-46.0) % MCHC 30.9 L (31.0-37.0) g/dL RDW 18.9 H (11.5-15.5) % Carbon Dioxide (20.0-27.5) mmol/L BUN (9.0-27.0) mg/dL Creatinine (0.6-1.5) mg/dL Est GFR (CKD-EPI)AfAm (60.0-200.0) Est GFR (CKD-EPI)NonAf (60.0-200.0) BUN/Creatinine Ratio (12.00-20.00) Ratio Calcium (8.7-10.3) mg/dL TIBC 144 L (228-460) ug/dL % Saturation 52.08 H (12.00-45.00) Transferrin 103.0 L (204.0-354.0) mg/dL Total Bilirubin (0.30-1.20) mg/dL Total Protein (6.2-8.2) g/dL Albumin (3.8-4.9) g/dL Albumin/Globulin Ratio (1.60-3.17) g/dL Crossmatch See Detail 05/16/22 Range/Units 05:42 RBC (3.80-5.40) m/uL Hgb (11.4-16.0) gm/dL Hct (34.0-46.0) % MCHC (31.0-37.0) g/dL RDW (11.5-15.5) % Carbon Dioxide 18.3 L (20.0-27.5) mmol/L BUN 46.8 H (9.0-27.0) mg/dL Creatinine 2.3 H (0.6-1.5) mg/dL Est GFR (CKD-EPI)AfAm 25.2 L (60.0-200.0) Est GFR (CKD-EPI)NonAf 21.7 L (60.0-200.0) BUN/Creatinine Ratio 20.35 H (12.00-20.00) Ratio Calcium 8.3 L (8.7-10.3) mg/dL TIBC (228-460) ug/dL % Saturation (12.00-45.00) Transferrin (204.0-354.0) mg/dL Total Bilirubin 0.20 L (0.30-1.20) mg/dL Total Protein 5.4 L (6.2-8.2) g/dL Albumin 2.6 L (3.8-4.9) g/dL Albumin/Globulin Ratio 0.93 L (1.60-3.17) g/dL Crossmatch Microbiology - Last 24 Hours (Table) 05/10/22 21:16 Blood Culture - Preliminary Blood No Growth after 120 hours Assessment and Plan (1) Pneumonia Current Visit: No Status: Acute Code(s): J18.9 - PNEUMONIA, UNSPECIFIED ORGANISM SNOMED Code(s): 626451139 (2) UTI (urinary tract infection) Current Visit: No Status: Acute Code(s): N39.0 - URINARY TRACT INFECTION, SITE NOT SPECIFIED SNOMED Code(s): 77971726 Plan: 1patient presented to hospital with a right hand forearm swelling and redness with a question of possible cellulitis to the right forearm area from the previous IV site versus thrombophlebitis in this patient currently with no fever or elevated white count Doppler ultrasound was suspicious for a superficial clot in the cephalic vein 2patient with a worsening finding on the chest x-ray and CT concerning for possible aspiration pneumonia. 3positive UA concerning for a UTI from gram-negative pathogen, the patient urine has been finalized and pseudomonas that is sensitive to Zosyn, ultrasound of the kidneys was negative for any hydronephrosis 4patient has shown clinical improvement and and is currently being treated with Zosyn with a plan to finish therapy with oral Cipro Time with Patient: Less than 30
[2022-05-16] MEDS: ATORVASTATIN 20 MG TAB PO SCH (21:25)
[2022-05-16] MEDS: levETIRAcetam IV 750 MG in SODIUM CHLORIDE 0.9% 100 ML IVPB SCH (22:33)
--- NOTE | 2022-05-16 23:17 | PN ---
PROGRESS NOTE SUBJECTIVE: female. She was given a unit of blood today for hemoglobin of 6.8. Family says she is not ready to go home. She needs physical therapy. She needs to get stronger. She has started eating well. Her hemoglobin needs to be assessed to see why she is dropping low. One unit of blood has been given. OBJECTIVE: CARDIOVASCULAR: S1 and S2. LUNGS: Scattered rhonchi and wheeze. HEMATOLOGY: Negative Homans. OPHTHALMOLOGIC: Pupils are equal, round, and reactive. GI: Soft. PSYCHIATRIC: Fair mood and affect. ASSESSMENT: 1. Ydtea-[id number]-gduizwt anemia. 2. Pseudomonas urinary tract infection. 3. Bilateral pneumonia. 4. Metabolic encephalopathy secondary to pain pump overdose of morphine. 5. Malnutrition, poor. 6. Generalized weakness. PLAN: Get PT, OT, and dietitian. Broad-spectrum antibiotics. Wait for Infectious Disease recommendations. MMODL / IJN: [id number] /
--- NOTE | 2022-05-17 01:17 | PN ---
PROGRESS NOTE SUBJECTIVE: She is greatly improved. Her hemoglobin is up to 9.6 today. She had acute kidney injury secondary to low blood pressure, nonoliguric with poor oral intake and dehydration, metabolic acidosis, mild hypernatremia, encephalopathy secondary to pain pump and dehydration, hyperkalemia which has improved. UTI showing Pseudomonas. Dr. Tristan's recommendations includes Cipro for outpatient antibiotics. Hemoglobin has increased today up to 9.6. She appears to be improved. She wants to go home, but family wants her possibly to go to rehab. Ultrasound shows no hydronephrosis. Waiting on oral intake. OBJECTIVE: CARDIOVASCULAR: S1, S2. LUNGS: Clear. GI: Soft. PSYCH: Fair mood and affect. NEUROLOGIC: Alert and oriented x3. ASSESSMENT AND PLAN: She has mild generalized edema secondary to low protein levels. Discussed the case with Dr. Koch for pain pump, who says that she is barely getting any morphine in the pain pump. Mentally, she is back to her baseline for sure. No further treatment on the pain parameters. She follows up with him. Kidney function continues to improve down to 0.5 creatinine which is the lowest level since she is admitted. She has past medical history of cerebrovascular accident, chronic kidney disease, metabolic encephalopathy secondary to Pseudomonas aeruginosa, urinary tract infection, severe anemia, bilateral pneumonia. We are going to check her hemoglobin electrophoresis prior to blood transfusion if needed. Today's hemoglobin sway up to 9.6. She can possibly go home soon if family wants her home and the guardian wants her home versus rehab. The patient wants to go home. Await further recommendations. MMODL / IJN: [id number] /
[2022-05-17] MEDS: PIPERACILLIN-TAZOBACTAM 3.375 GM in SODIUM CHLORIDE 0.9% 100 ML IVPB SCH ×2 (04:50→17:56)
[2022-05-17] MEDS: METOPROLOL TARTRATE 50 MG TAB PO SCH ×2 (08:00→20:53)
[2022-05-17] MEDS: ASPIRIN 81 MG PO SCH (08:00)
[2022-05-17] MEDS: SODIUM BICARBONATE TAB 650 MG TAB PO SCH ×2 (08:00→20:53)
[2022-05-17] MEDS: LEVOTHYROXINE 75 MCG TAB PO SCH (08:00)
[2022-05-17] MEDS: LACOSAMIDE 50 MG TABLET PO SCH ×2 (08:00→20:53)
--- NOTE | 2022-05-17 10:04 | P.PN ---
Subjective Patient is seen in follow-up for acute kidney injury. Patient slowly improving. Creatinine 2.3 yesterday. Resting in bed. Patient is not a reliable historian. Hemoglobin 9.6 yesterday. On IV Lasix. Also receiving bicarb drip. He has an external catheter. Nonoliguric. Blood pressure stable at 135/84 this morning. Vital signs are stable. General: Awake. No acute distress. HEENT: Head exam is unremarkable. LUNGS: Breath sounds decreased. HEART: Rate and Rhythm are regular. ABDOMEN: Soft, no distention. EXTREMITITES: 1+ edema. Objective - Vital Signs Vital signs: Vital Signs Temp 98.3 F 05/17/22 08:00 Pulse 85 05/17/22 08:00 Resp 17 05/17/22 08:00 BP 135/84 05/17/22 08:00 Pulse Ox 100 05/17/22 08:00 FiO2 Intake & Output 05/16/22 05/17/22 05/17/22 18:59 06:59 18:59 Intake Total 500 Output Total 775 500 Balance -275 -500 Intake: IV 500 Dextrose 5% in Water 1, 500 000 ml @ 50 mls/hr IV . Q22H SHAR with Sodium Bicarb (1 Meq/ml) 100 ml Rx#:[id number] Output: Urine 775 500 Other: Voiding Method External Catheter External Catheter # Bowel Movements 2 1 - Labs CBC & Chem 7: 05/16/22 05:42 05/16/22 05:42 Labs: Abnormal Lab Results - Last 24 Hours (Table) 05/16/22 Range/Units 05:42 Carbon Dioxide 18.3 L (20.0-27.5) mmol/L BUN 46.8 H (9.0-27.0) mg/dL Creatinine 2.3 H (0.6-1.5) mg/dL Est GFR (CKD-EPI)AfAm 25.2 L (60.0-200.0) Est GFR (CKD-EPI)NonAf 21.7 L (60.0-200.0) BUN/Creatinine Ratio 20.35 H (12.00-20.00) Ratio Calcium 8.3 L (8.7-10.3) mg/dL Total Bilirubin 0.20 L (0.30-1.20) mg/dL Total Protein 5.4 L (6.2-8.2) g/dL Albumin 2.6 L (3.8-4.9) g/dL Albumin/Globulin Ratio 0.93 L (1.60-3.17) g/dL Microbiology - Last 24 Hours (Table) 05/10/22 21:16 Blood Culture - Final Blood No Growth after 144 hours Assessment and Plan Plan: Assessment: 1. Acute kidney injury secondary to ATN secondary to hypotension, infection and acute blood loss anemia. No hydronephrosis noted on kidney ultrasound. Creatinine was 3.83 on admission was down to 2.3 yesterday. Creatinine as of 04/28/2022 was 0.69. 2. Pseudomonas UTI on antibiotics. 3. Acute blood loss anemia status post blood transfusion this admission. Iron replete. Hemoglobin 9.6 yesterday. 4. Volume overload. On IV Lasix. 5. Hypernatremia from lack of oral water intake. Improved. 6. Metabolic acidosis secondary to acute kidney injury. Currently on bicarb drip. Plan: Maintain IV Lasix. Hep-Lock IV fluids if acidosis improved. Maintain oral bicarb. Avoid nephrotoxins. Continue to monitor renal function and urine output. Follow-up morning labs.
[2022-05-17] MEDS: PANTOPRAZOLE 40 MG/10 ML VIAL IVP SCH (10:28)
[2022-05-17] MEDS: FUROSEMIDE 10 MG/ML 4 ML VIAL IV SCH (10:32)
[2022-05-17] MEDS: levETIRAcetam IV 500 MG in SODIUM CHLORIDE 0.9% 100 ML IVPB SCH (10:34)
--- NOTE | 2022-05-17 13:22 | P.PN ---
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 difficile is negative 05/16/2022, patient seen eval examined during the rounds overall fairly stable with 2 L oxygen patient remains on broad-spectrum antibiotics has been on bicarb which is being changed to oral as per nephrology, remains afebrile hemodynamically stable with oxygen saturation of 95-97% room air 05/15/2022, patient seen eval examined overall no significant change remains on 2 L oxygen intermittent cough is present, vitals are stable room air saturation 100%, advised to patient to monitor observe off of oxygen, patient remains on bicarb drip along with Zosyn. No cervical lab reviewed BUN/creatinine is 46/2.5 overall stable and improved, ultrasound of the chest reviewed very tiny pleural effusion is present the right side will monitor observe no plans for thoracentesis 05/14/2022, patient seen and evaluated examined during rounds labs reviewed medications reviewed care plan discussed, remains on 2 L oxygen, shortness of breath activity and exertion present, patient being treated for pseudomonas with IV Zosyn, has been placed on IV Drip as per renal services, labs from today pending, ultrasound of the kidney revealed presence of right pleural effusion will obtain dedicated right-sided ultrasound to estimate 05/12/2022, patient seen eval examined, patient remains on 2 L supplemental oxygen saturation is stable remains afebrile, woman dynamically stable, no significant changes present, last set of vitals include blood pressure 1077/75, respiratory 20, heart rate 90, temperature 98.4, situation 100% 2 L oxygen patient remains on the Keppra along with Synthroid continuation of home medications and IV Zosyn tolerating well, chemistry reviewed sodium is 148 coming down, potassium 4.8 down from 5.4 yesterday BUN/creatinine continued to improve 50/3.09, 2 sets of blood cultures have been negative however urine is positive for pseudomonas aeruginosa 05/10/2022, patient seen eval examined overall respiratory status remained stable, however he still short of breath with minimal activity in next exertion, she remains on 2 L oxygen, patient remains afebrile and hemodynamically stable intermittent tachycardia is present, T-max is 99, urine culture came back positive for pseudomonas aeruginosa, sensitive to Zosyn, Patient is a 62-year-old female came into the hospital with right arm swelling she was recently hospitalized for pneumonia she also has contracted extremities underwent pump placement for baclofen and morphine patient has been more somnolent also has ongoing problem of nausea and vomiting and inability to tolerate the pain medications. Patient is mostly nonverbal and noncommunicative daughter is present at the bedside who is a source of information, past medical history significant for CVA/TIA, dyslipidemia, hypertension hypertensive cardiovascular disease, chronic anemia, left-sided weakness and lower extremity weakness due to stroke, gout, pancreatitis, so the seizures, history of multiple brain aneurysms requiring quite ill and stent placement. Pain pump was inserted on 04/21/2022. Patient has extensive history of smoking and nicotine use quit about 8 years ago used to smoke one to 2 packs per day Of arrival she was tachypneic and tachycardic heart rate is 120 also hypertensive blood pressure 160/90 saturation 92% her right was swelling. Patient received Narcan. Patient was negative for coronary influenza, chest x-ray showed interstitial edema, patient was started on Keflex and Zithromax, also received Narcan, she was found to have acute kidney disease with BUN/creatinine of 52/3.83, troponin were less than 0.012, potassium was 5.3. Duplex ultrasound the right upper extremity negative for DVT. Computed tomography scan of the head significant for cerebral atrophy along with a right hemispheric infarct. VQ scan is very low probability for PE homogenous distribution of tracer bilaterally in the lungs noted no discrete perfusion defects seen. Computed tomography scan without contrast small tiny bilateral effusions seen along with groundglass attenuation slightly worse. Currently patient has been treated with Zosyn along with Zithromax s welling in the right upper extremity significant improvement appears to be related to prior IV axis in the hand Objective - Vital Signs Vital signs: Vital Signs Temp 98.3 F 05/17/22 08:00 Pulse 85 05/17/22 08:00 Resp 17 05/17/22 08:00 BP 135/84 05/17/22 08:00 Pulse Ox 100 05/17/22 08:00 FiO2 Intake & Output 05/16/22 05/17/22 05/17/22 18:59 06:59 18:59 Intake Total 500 Output Total 775 500 Balance -275 -500 Intake: IV 500 Dextrose 5% in Water 1, 500 000 ml @ 50 mls/hr IV . Q22H SHAR with Sodium Bicarb (1 Meq/ml) 100 ml Rx#:[id number] Output: Urine 775 500 Other: Voiding Method External Catheter External Catheter # Bowel Movements 2 1 - Exam - Constitutional General appearance: average body habitus, disheveled, mild distress - EENT Eyes: EOMI, PERRLA ENT: normal oropharynx Ears: bilateral: normal - Neck Carotids: bilateral: upstroke normal Thyroid: bilateral: normal size - Respiratory Respiratory: bilateral: diminished - Cardiovascular Rhythm: regular Heart sounds: normal: S1, S2 - Gastrointestinal General gastrointestinal: soft - Neurologic Contracted unable to examine neurological status at length but appears to be on the left side due to prior stroke with contractured - Labs CBC & Chem 7: 05/16/22 05:42 05/16/22 05:42 Labs: Microbiology - Last 24 Hours (Table) 05/10/22 21:16 Blood Culture - Final Blood No Growth after 144 hours Assessment and Plan Assessment: Right-sided pleural effusion, reviewed ultrasound of the chest very tiny effusion is present we'll monitor observe Urinary tract infection with Pseudomonas aeruginosa sensitive to Zosyn, will continue it, however can be switched to oral like Augmentin Acute hypoxic respiratory failure due to bilateral healthcare associated pneumonia, Acute on chronic kidney disease with slight improvement in kidney function 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
[2022-05-17 15:15] LABS: African American GFR (CKD) 29 (>60 ml/min/1.73 sqM); Anion Gap 9 mmol/L; Blood Urea Nitrogen 54 mg/dL (7-17); Calcium 8.4 mg/dL (8.4-10.2); Carbon Dioxide 20 mmol/L (22-30); Chloride 115 mmol/L (98-107); Non-African American GFR(CKD) 25 (>60 ml/min/1.73 sqM); Sodium 144 mmol/L (137-145)
[2022-05-17 15:30] LABS: Glucose 117 mg/dL (74-99); Magnesium 1.2 mg/dL (1.6-2.3); Potassium 5.6 mmol/L (3.5-5.1)
[2022-05-17] MEDS: DEXTROSE 5% IN WATER 1,000 ML with SODIUM BICARB (1 MEQ/ML) 100 ML IV SCH (16:12)
[2022-05-17] MEDS: MAGNESIUM SULFATE-D5W PMX 1 GM in DEXTROSE/WATER 1 100ML.BAG IVPB SCH ×3 (16:23→19:16)
[2022-05-17] MEDS: ATORVASTATIN 20 MG TAB PO SCH (20:53)
[2022-05-17] MEDS: levETIRAcetam IV 750 MG in SODIUM CHLORIDE 0.9% 100 ML IVPB SCH (22:49)
[2022-05-17] MEDS: ACETAMINOPHEN TAB 325 MG TAB PO PRN (22:50)
[2022-05-18] MEDS: PIPERACILLIN-TAZOBACTAM 3.375 GM in SODIUM CHLORIDE 0.9% 100 ML IVPB SCH ×2 (03:12→16:19)
[2022-05-18] MEDS: LOPERAMIDE 2 MG CAP PO PRN ×2 (03:15→21:29)
[2022-05-18] MEDS: LEVOTHYROXINE 75 MCG TAB PO SCH (05:38)
[2022-05-18] MEDS: ACETAMINOPHEN TAB 325 MG TAB PO PRN ×2 (05:38→21:29)
[2022-05-18 08:08] LABS: Anisocytosis Moderate; Basophils % (A) 0 %; Eosinophils # (A) 0.5 k/uL (0-0.7); Eosinophils % (A) 7 %; HCT 25.7 % (34.0-46.0); Hypochromasia Marked; Lymphocytes # (A) 2.5 k/uL (1.0-4.8); Lymphocytes % (A) 36 %; MCH 25.8 pg (25.0-35.0); MCHC 31.5 g/dL (31.0-37.0); Mean Platelet Volume 8.7; Microcytosis Slight; Monocytes # (A) 0.7 k/uL (0-1.0); Monocytes % (A) 10 %; Neutrophils # (A) 3.1 k/uL (1.3-7.7); Neutrophils % (A) 44 %; Platelet Count 170 k/uL (150-450); Poikilocytosis Slight; RBC 3.13 m/uL (3.80-5.40); RDW 20.1 % (11.5-15.5); WBC 6.9 k/uL (3.8-10.6)
[2022-05-18 08:19] LABS: African American GFR (CKD) 32 (>60 ml/min/1.73 sqM); Anion Gap 7 mmol/L; Blood Urea Nitrogen 45 mg/dL (7-17); Calcium 7.7 mg/dL (8.4-10.2); Carbon Dioxide 23 mmol/L (22-30); Chloride 109 mmol/L (98-107); Glucose 85 mg/dL (74-99); Magnesium 1.8 mg/dL (1.6-2.3); Non-African American GFR(CKD) 28 (>60 ml/min/1.73 sqM); Potassium 3.7 mmol/L (3.5-5.1); Sodium 139 mmol/L (137-145)
[2022-05-18 08:23] LABS: HGB 8.1 gm/dL (11.4-16.0)
[2022-05-18] MEDS: FUROSEMIDE 10 MG/ML 4 ML VIAL IV SCH (09:27)
[2022-05-18] MEDS: METOPROLOL TARTRATE 50 MG TAB PO SCH ×2 (09:42→21:31)
[2022-05-18] MEDS: ASPIRIN 81 MG PO SCH (09:43)
[2022-05-18] MEDS: SODIUM BICARBONATE TAB 650 MG TAB PO SCH ×3 (09:43→21:31)
[2022-05-18] MEDS: PANTOPRAZOLE 40 MG/10 ML VIAL IVP SCH (09:43)
[2022-05-18] MEDS: LACOSAMIDE 50 MG TABLET PO SCH ×2 (09:43→21:31)
[2022-05-18] MEDS: levETIRAcetam IV 500 MG in SODIUM CHLORIDE 0.9% 100 ML IVPB SCH (09:48)
[2022-05-18] MEDS ORDERED: POTASSIUM CHLORIDE ER 20 MEQ TAB.ER PO STA (10:31)
--- NOTE | 2022-05-18 10:32 | P.PN ---
Subjective Patient is seen in follow-up for acute kidney injury. Renal function slowly improving. Creatinine 1.88 today. Resting in bed. Patient is not a reliable historian. Hemoglobin lower at 8.1 today. On IV Lasix. Has an external catheter. Nonoliguric. Blood pressure stable. Vital signs are stable. General: Awake. No acute distress. HEENT: Head exam is unremarkable. LUNGS: Breath sounds decreased. HEART: Rate and Rhythm are regular. ABDOMEN: Soft, no distention. EXTREMITITES: 1+ edema. Objective - Vital Signs Vital signs: Vital Signs Temp 97.7 F 05/18/22 07:39 Pulse 82 05/18/22 07:39 Resp 15 05/18/22 07:39 BP 104/71 05/18/22 07:39 Pulse Ox 99 05/18/22 07:39 FiO2 Intake & Output 05/17/22 05/18/22 05/18/22 18:59 06:59 18:59 Intake Total 350 Output Total 850 Balance 350 -850 Intake: Oral 350 Output: Urine 850 Other: Voiding Method External Catheter External Catheter # Voids 3 - Labs CBC & Chem 7: 05/18/22 07:50 05/18/22 07:50 Labs: Abnormal Lab Results - Last 24 Hours (Table) 05/17/22 05/18/22 05/18/22 Range/Units 14:53 07:50 07:50 RBC 3.13 L (3.80-5.40) m/uL Hgb 8.1 L D (11.4-16.0) gm/dL Hct 25.7 L (34.0-46.0) % RDW 20.1 H (11.5-15.5) % Potassium 5.6 H (3.5-5.1) mmol/L Chloride 115 H 109 H (98-107) mmol/L Carbon Dioxide 20 L (22-30) mmol/L BUN 54 H 45 H (7-17) mg/dL Creatinine 2.07 H 1.88 H (0.52-1.04) mg/dL Glucose 117 H (74-99) mg/dL Calcium 7.7 L (8.4-10.2) mg/dL Magnesium 1.2 L (1.6-2.3) mg/dL Assessment and Plan Plan: Assessment: 1. Acute kidney injury secondary to ATN secondary to hypotension, infection and acute blood loss anemia. No hydronephrosis noted on kidney ultrasound. Creatinine was 3.83 on admission -1.88 today. Creatinine as of 04/28/2022 was 0.69. 2. Pseudomonas UTI on antibiotics. 3. Acute blood loss anemia status post blood transfusion this admission. Iron replete. Hemoglobin 8.1 today.Hematology following. 4. Volume overload. On IV Lasix. 5. Hypernatremia from lack of oral water intake. Improved. 6. Metabolic acidosis secondary to acute kidney injury. On oral bicarb now. Better. Plan: Maintain IV Lasix. Avoid nephrotoxins. Continue to monitor renal function and urine output. Monitor hemoglobin and transfuse as needed.
--- NOTE | 2022-05-18 12:00 | P.PN ---
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 Chronic pain syndrome due to muscle spasm status post pump in March 2022 Large right hemispheric parietal stroke Bedbound status Right upper extremity swelling due to prior IV axis no evidence of DVTs maintain patient on DVT prophylaxis, continue deep breathing exercises incentive spirometry monitor observe renal functions closely 05/18/2022, patient seen eval reexamined labs reviewed medications reviewed care plan discussed, awake and alert denies any chest pain, currently on 2 L oxygen, vitals stable hemoglobin is 8.1, white cell count 6.9, BUN/creatinine continued to improve down to 45/1.88, patient being continued on Zosyn 05/17/2022, patient seen eval examined during the rounds labs reviewed medications reviewed, patient is on room air breathing comfortably, pleasant, wishes to go home, remains afebrile, labs from today pending, stool for C. difficile is negative 05/16/2022, patient seen eval examined during the rounds overall fairly stable with 2 L oxygen patient remains on broad-spectrum antibiotics has been on bicarb which is being changed to oral as per nephrology, remains afebrile hemodynamically stable with oxygen saturation of 95-97% room air 05/15/2022, patient seen eval examined overall no significant change remains on 2 L oxygen intermittent cough is present, vitals are stable room air saturation 100%, advised to patient to monitor observe off of oxygen, patient remains on bicarb drip along with Zosyn. No cervical lab reviewed BUN/creatinine is 46/2.5 overall stable and improved, ultrasound of the chest reviewed very tiny pleural effusion is present the right side will monitor observe no plans for thoracentesis 05/14/2022, patient seen and evaluated examined during rounds labs reviewed medications reviewed care plan discussed, remains on 2 L oxygen, shortness of breath activity and exertion present, patient being treated for pseudomonas with IV Zosyn, has been placed on IV Drip as per renal services, labs from today pending, ultrasound of the kidney revealed presence of right pleural effusion will obtain dedicated right-sided ultrasound to estimate 05/12/2022, patient seen eval examined, patient remains on 2 L supplemental oxygen saturation is stable remains afebrile, woman dynamically stable, no significant changes present, last set of vitals include blood pressure 1077/75, respiratory 20, heart rate 90, temperature 98.4, situation 100% 2 L oxygen patient remains on the Keppra along with Synthroid continuation of home medications and IV Zosyn tolerating well, chemistry reviewed sodium is 148 coming down, potassium 4.8 down from 5.4 yesterday BUN/creatinine continued to improve 50/3.09, 2 sets of blood cultures have been negative however urine is positive for pseudomonas aeruginosa 05/10/2022, patient seen eval examined overall respiratory status remained stable, however he still short of breath with minimal activity in next exertion, she remains on 2 L oxygen, patient remains afebrile and hemodynamically stable intermittent tachycardia is present, T-max is 99, urine culture came back positive for pseudomonas aeruginosa, sensitive to Zosyn, Patient is a 62-year-old female came into the hospital with right arm swelling she was recently hospitalized for pneumonia she also has contracted extremities underwent pump placement for baclofen and morphine patient has been more somnolent also has ongoing problem of nausea and vomiting and inability to tolerate the pain medications. Patient is mostly nonverbal and noncommunicative daughter is present at the bedside who is a source of information, past medical history significant for CVA/TIA, dyslipidemia, hypertension hypertensive cardiovascular disease, chronic anemia, left-sided weakness and lower extremity weakness due to stroke, gout, pancreatitis, so the seizures, history of multiple brain aneurysms requiring quite ill and stent placement. Pain pump was inserted on 04/21/2022. Patient has extensive history of smoking and nicotine use quit about 8 years ago used to smoke one to 2 packs per day Of arrival she was tachypneic and tachycardic heart rate is 120 also hypertensive blood pressure 160/90 saturation 92% her right was swelling. Patient received Narcan. Patient was negative for coronary influenza, chest x-ray showed interstitial edema, pat ient was started on Keflex and Zithromax, also received Narcan, she was found to have acute kidney disease with BUN/creatinine of 52/3.83, troponin were less than 0.012, potassium was 5.3. Duplex ultrasound the right upper extremity negative for DVT. Computed tomography scan of the head significant for cerebral atrophy along with a right hemispheric infarct. VQ scan is very low probability for PE homogenous distribution of tracer bilaterally in the lungs noted no discrete perfusion defects seen. Computed tomography scan without contrast small tiny bilateral effusions seen along with groundglass attenuation slightly worse. Currently patient has been treated with Zosyn along with Zithromax swelling in the right upper extremity significant improvement appears to be related to prior IV axis in the hand Objective - Vital Signs Vital signs: Vital Signs Temp 97.7 F 05/18/22 07:39 Pulse 82 05/18/22 07:39 Resp 16 05/18/22 09:30 BP 104/71 05/18/22 07:39 Pulse Ox 99 05/18/22 07:39 FiO2 Intake & Output 05/17/22 05/18/22 05/18/22 18:59 06:59 18:59 Intake Total 350 180 Output Total 850 Balance 350 -850 180 Intake: Oral 350 180 Output: Urine 850 Other: Voiding Method External Catheter External Catheter External Catheter # Voids 3 - Exam - Constitutional General appearance: average body habitus, disheveled, mild distress - EENT Eyes: EOMI, PERRLA ENT: normal oropharynx Ears: bilateral: normal - Neck Carotids: bilateral: upstroke normal Thyroid: bilateral: normal size - Respiratory Respiratory: bilateral: diminished - Cardiovascular Rhythm: regular Heart sounds: normal: S1, S2 - Gastrointestinal General gastrointestinal: soft - Neurologic Contracted unable to examine neurological status at length but appears to be on the left side due to prior stroke with contractured - Labs CBC & Chem 7: 05/18/22 07:50 05/18/22 07:50 Labs: Abnormal Lab Results - Last 24 Hours (Table) 05/17/22 05/18/22 05/18/22 Range/Units 14:53 07:50 07:50 RBC 3.13 L (3.80-5.40) m/uL Hgb 8.1 L D (11.4-16.0) gm/dL Hct 25.7 L (34.0-46.0) % RDW 20.1 H (11.5-15.5) % Potassium 5.6 H (3.5-5.1) mmol/L Chloride 115 H 109 H (98-107) mmol/L Carbon Dioxide 20 L (22-30) mmol/L BUN 54 H 45 H (7-17) mg/dL Creatinine 2.07 H 1.88 H (0.52-1.04) mg/dL Glucose 117 H (74-99) mg/dL Calcium 7.7 L (8.4-10.2) mg/dL Magnesium 1.2 L (1.6-2.3) mg/dL Assessment and Plan Assessment: Right-sided pleural effusion, reviewed ultrasound of the chest very tiny effusion is present we'll monitor observe Urinary tract infection with Pseudomonas aeruginosa sensitive to Zosyn, will c ontinue it, however can be switched to oral like Augmentin Acute hypoxic respiratory failure due to bilateral healthcare associated pneumonia, Acute on chronic kidney disease with slight improvement in kidney function 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
[2022-05-18] MEDS: ATORVASTATIN 20 MG TAB PO SCH (21:31)
[2022-05-18] MEDS: levETIRAcetam IV 750 MG in SODIUM CHLORIDE 0.9% 100 ML IVPB SCH (21:31)
[2022-05-18] MEDS: diphenhydrAMINE 50 MG/ML 1 ML VIAL IVP PRN (23:27)
--- NOTE | 2022-05-18 23:28 | P.PN ---
Subjective Progress Note Date: 05/17/22 Principal diagnosis: Right-hand swelling question of cellulitis pneumonia and UTI Patient is a 62-year-old -[place] female with multiple comorbidities and recurrent admission to the hospital presented to hospital with a right hand swelling, patient also does have abnormal x-ray concerning for possiblepneumonia and a positive UA concerning for UTI. On today's evaluation that is 05/17/2022, the patient remains to be afebrile, the patient is breathing comfortably on nasal cannula oxygen , patient denies any chest pain or shortness of breath or cough no abdominal pain no diarrhea Objective - Vital Signs Vital signs: Vital Signs Temp 98.3 F 05/17/22 08:00 Pulse 85 05/17/22 08:00 Resp 17 05/17/22 08:00 BP 135/84 05/17/22 08:00 Pulse Ox 100 05/17/22 08:00 FiO2 Intake & Output 05/16/22 05/17/22 05/17/22 18:59 06:59 18:59 Intake Total 500 Output Total 775 500 Balance -275 -500 Intake: IV 500 Dextrose 5% in Water 1, 500 000 ml @ 50 mls/hr IV . Q22H SHAR with Sodium Bicarb (1 Meq/ml) 100 ml Rx#:[id number] Output: Urine 775 500 Other: Voiding Method External Catheter External Catheter # Bowel Movements 2 1 - Exam GENERAL DESCRIPTION: Middle-aged female lying in bed in no distress RESPIRATORY SYSTEM: Unlabored breathing , decreased breath sounds at bases HEART: S1 S2 regular rate and rhythm , ABDOMEN: Soft , no tenderness EXTREMITIES: Right hand swelling and redness has decreased - Labs CBC & Chem 7: 05/18/22 07:50 05/18/22 07:50 Labs: Microbiology - Last 24 Hours (Table) 05/10/22 21:16 Blood Culture - Final Blood No Growth after 144 hours Assessment and Plan (1) Pneumonia Current Visit: No Status: Acute Code(s): J18.9 - PNEUMONIA, UNSPECIFIED ORGANISM SNOMED Code(s): 165421242 (2) UTI (urinary tract infection) Current Visit: No Status: Acute Code(s): N39.0 - URINARY TRACT INFECTION, SITE NOT SPECIFIED SNOMED Code(s): 32562045 Plan: 1patient presented to hospital with a right hand forearm swelling and redness with a question of possible cellulitis to the right forearm area from the previous IV site versus thrombophlebitis in this patient currently with no fever or elevated white count Doppler ultrasound was suspicious for a superficial clot in the cephalic vein 2patient with a worsening finding on the chest x-ray and CT concerning for possible aspiration pneumonia. 3positive UA concerning for a UTI from gram-negative pathogen, the patient u rine has been finalized and pseudomonas that is sensitive to Zosyn, ultrasound of the kidneys was negative for any hydronephrosis 4patient has shown clinical improvement and to continue with Zosyn with a plan to finish therapy with oral Cipro Time with Patient: Less than 30
--- NOTE | 2022-05-18 23:29 | P.PN ---
Subjective Progress Note Date: 05/18/22 Principal diagnosis: Right-hand swelling question of cellulitis pneumonia and UTI Patient is a 62-year-old -[place] female with multiple comorbidities and recurrent admission to the hospital presented to hospital with a right hand swelling, patient also does have abnormal x-ray concerning for possiblepneumonia and a positive UA concerning for UTI. On today's evaluation that is 05/18/2022, the patient denies any fever or any chills, the patient is breathing comfortably on room air, patient denies any chest pain or shortness of breath or cough no abdominal pain no diarrhea , no new symptoms Objective - Vital Signs Vital signs: Vital Signs Temp 97.7 F 05/18/22 07:39 Pulse 82 05/18/22 07:39 Resp 16 05/18/22 09:30 BP 104/71 05/18/22 07:39 Pulse Ox 99 05/18/22 07:39 FiO2 Intake & Output 05/17/22 05/18/22 05/18/22 18:59 06:59 18:59 Intake Total 350 480 Output Total 850 Balance 350 -850 480 Intake: Oral 350 480 Output: Urine 850 Other: Voiding Method External Catheter External Catheter External Catheter # Voids 3 - Exam GENERAL DESCRIPTION: Middle-aged female lying in bed in no distress RESPIRATORY SYSTEM: Unlabored breathing , decreased breath sounds at bases HEART: S1 S2 regular rate and rhythm , ABDOMEN: Soft , no tenderness EXTREMITIES: Right hand swelling and redness has decreased - Labs CBC & Chem 7: 05/18/22 07:50 05/18/22 07:50 Labs: Abnormal Lab Results - Last 24 Hours (Table) 05/18/22 05/18/22 Range/Units 07:50 07:50 RBC 3.13 L (3.80-5.40) m/uL Hgb 8.1 L D (11.4-16.0) gm/dL Hct 25.7 L (34.0-46.0) % RDW 20.1 H (11.5-15.5) % Chloride 109 H (98-107) mmol/L BUN 45 H (7-17) mg/dL Creatinine 1.88 H (0.52-1.04) mg/dL Calcium 7.7 L (8.4-10.2) mg/dL Assessment and Plan (1) Pneumonia Current Visit: No Status: Acute Code(s): J18.9 - PNEUMONIA, UNSPECIFIED ORGANISM SNOMED Code(s): 446511918 (2) UTI (urinary tract infection) Current Visit: No Status: Acute Code(s): N39.0 - URINARY TRACT INFECTION, S ITE NOT SPECIFIED SNOMED Code(s): 13282515 Plan: 1patient presented to hospital with a right hand forearm swelling and redness with a question of possible cellulitis to the right forearm area from the previous IV site versus thrombophlebitis in this patient currently with no fever or elevated white count Doppler ultrasound was suspicious for a superficial clot in the cephalic vein, overall swelling redness to the right hand has decreased in intensity 2patient with a worsening finding on the chest x-ray and CT concerning for possible aspiration pneumonia. 3positive UA concerning for a UTI from gram-negative pathogen, the patient urin e has been finalized and pseudomonas that is sensitive to Zosyn, ultrasound of the kidneys was negative for any hydronephrosis 4patient has shown clinical improvement and is currently being treated with Zosyn with a plan to finish therapy with oral Cipro and a close outpatient follow-up Time with Patient: Less than 30
--- NOTE | 2022-05-18 23:58 | PN ---
PROGRESS NOTE DATE OF SERVICE: 05/17/2022 SUBJECTIVE: This 62-year-old woman, who was admitted with acute hypoxic respiratory failure, also had acute on chronic kidney disease. The patient is being closely monitored. No chest pain. No palpitation. OBJECTIVE: VITAL SIGNS: Pulse is 98, blood pressure 133/77, respirations 16. CHEST: Clear to auscultation. CARDIOVASCULAR: S1, S2. ABDOMEN: Soft. NERVOUS SYSTEM: Diffusely weak. LABORATORY DATA: Hemoglobin 8.7. Other labs are noted. ASSESSMENT: 1. Bilateral healthcare-associated pneumonia with acute hypoxic respiratory failure. 2. Acute on chronic kidney disease. 3. History of cerebrovascular accident. 4. Multiple medical issues. RECOMMENDATIONS: I recommend to continue current management and symptomatic treatment. Repeat labs. Closely follow with Pulmonology and Nephrology. Guarded prognosis. Continue with antibiotics. Further recommendations to follow. JOURDAN / DANNY: [id number] /
--- NOTE | 2022-05-19 03:25 | PN ---
PROGRESS NOTE DATE OF SERVICE: 05/18/2022 SUBJECTIVE: This 62-year-old woman was admitted with possible acute pneumonia, also had hypoxia. The patient is on broad-spectrum IV antibiotics. Dr. Callahan is following the patient closely. No chest pain. No palpitation. PHYSICAL EXAMINATION: VITAL SIGNS: Pulse 87, blood pressure 110/60, respiration 14. CHEST: A few scattered rhonchi. CARDIOVASCULAR: S1, S2 normal. ABDOMEN: Soft. Nervous System: No focal deficits. LABORATORY DATA: Reviewed. Creatinine 1.38. ASSESSMENT: 1. Possible acute pneumonia with acute hypoxic respiratory failure. 2. Acute on chronic kidney disease. 3. History of cerebrovascular accident. 4. Multiple medical issues. RECOMMENDATION: Recommend to continue current management. Continue the antibiotics. Closely follow with Pulmonary. Dr. Harley will follow tomorrow. MMODL / IJN: [id number] /
[2022-05-19] MEDS: PIPERACILLIN-TAZOBACTAM 3.375 GM in SODIUM CHLORIDE 0.9% 100 ML IVPB SCH ×3 (03:53→22:55)
[2022-05-19] MEDS: LEVOTHYROXINE 75 MCG TAB PO SCH (06:31)
[2022-05-19] MEDS: LOPERAMIDE 2 MG CAP PO PRN ×2 (06:31→14:18)
[2022-05-19 07:53] LABS: African American GFR (CKD) 33 (>60 ml/min/1.73 sqM); Anion Gap 8 mmol/L; Blood Urea Nitrogen 45 mg/dL (7-17); Calcium 8.2 mg/dL (8.4-10.2); Carbon Dioxide 22 mmol/L (22-30); Chloride 109 mmol/L (98-107); Glucose 83 mg/dL (74-99); Non-African American GFR(CKD) 29 (>60 ml/min/1.73 sqM); Sodium 139 mmol/L (137-145)
[2022-05-19 07:57] LABS: Magnesium 1.7 mg/dL (1.6-2.3); Potassium 4.8 mmol/L (3.5-5.1)
--- NOTE | 2022-05-19 10:02 | P.PN ---
Subjective Patient is seen in follow-up for acute kidney injury. Renal function stable. Creatinine 1.84 today. Resting in bed. Patient is not a reliable historian. Hemoglobin 8.1 yesterday. On IV Lasix. Has an external catheter. Nonoliguric. Blood pressure stable. Vital signs are stable. General: Awake. No acute distress. HEENT: Head exam is unremarkable. LUNGS: Breath sounds decreased. HEART: Rate and Rhythm are regular. ABDOMEN: Soft, no distention. EXTREMITITES: 1+ edema. Objective - Vital Signs Vital signs: Vital Signs Temp 98.3 F 05/19/22 07:24 Pulse 82 05/19/22 07:24 Resp 14 05/19/22 07:24 BP 117/79 05/19/22 07:24 Pulse Ox 98 05/19/22 07:24 FiO2 Intake & Output 05/18/22 05/19/22 05/19/22 18:59 06:59 18:59 Intake Total 780 Output Total 2 Balance 780 -2 Intake: Oral 780 Output: Urine/Stool Mix 2 Other: Voiding Method External Catheter External Catheter # Voids 3 2 # Bowel Movements 2 - Labs CBC & Chem 7: 05/18/22 07:50 05/19/22 07:26 Labs: Abnormal Lab Results - Last 24 Hours (Table) 05/19/22 Range/Units 07:26 Chloride 109 H (98-107) mmol/L BUN 45 H (7-17) mg/dL Creatinine 1.84 H (0.52-1.04) mg/dL Calcium 8.2 L (8.4-10.2) mg/dL Assessment and Plan Plan: Assessment: 1. Acute kidney injury secondary to ATN secondary to hypotension, infection and acute blood loss anemia. No hydronephrosis noted on kidney ultrasound. Creatinine was 3.83 on admission -1.84 today. Creatinine as of 04/28/2022 was 0.69. 2. Pseudomonas UTI on antibiotics. 3. Acute blood loss anemia status post blood transfusion this admission. Iron replete. Hemoglobin 8.1 yesterday. Hematology following. 4. Volume overload. Improving. On IV Lasix. 5. Hypernatremia from lack of oral water intake. Improved. 6. Metabolic acidosis secondary to acute kidney injury. On oral bicarb now. Stable. Plan: Change Lasix to 40 mg orally once daily. Avoid nephrotoxins. Continue to monitor renal function and urine output. Monitor hemoglobin and transfuse as needed. Encouraged oral intake.
[2022-05-19] MEDS: PANTOPRAZOLE 40 MG/10 ML VIAL IVP SCH (10:04)
[2022-05-19] MEDS: SODIUM BICARBONATE TAB 650 MG TAB PO SCH ×3 (10:04→21:01)
[2022-05-19] MEDS: FUROSEMIDE 10 MG/ML 4 ML VIAL IV SCH (10:04)
[2022-05-19] MEDS: ASPIRIN 81 MG PO SCH (10:04)
[2022-05-19] MEDS: METOPROLOL TARTRATE 50 MG TAB PO SCH ×2 (10:04→21:01)
[2022-05-19] MEDS: LACOSAMIDE 50 MG TABLET PO SCH ×2 (10:05→21:02)
[2022-05-19] MEDS: levETIRAcetam IV 500 MG in SODIUM CHLORIDE 0.9% 100 ML IVPB SCH (10:05)
[2022-05-19] MEDS: ATORVASTATIN 20 MG TAB PO SCH (21:01)
[2022-05-19] MEDS: levETIRAcetam IV 750 MG in SODIUM CHLORIDE 0.9% 100 ML IVPB SCH (21:01)
--- NOTE | 2022-05-19 21:40 | P.PN ---
Subjective Progress Note Date: 05/19/22 the patient was drowsy, but arousable. Comprehension was adequate. She denied any new pain, fevers or chills. She denied any obvious bleeding. Appetite is diminished. Objective - Vital Signs Vital signs: Vital Signs Temp 98.9 F 05/19/22 14:00 Pulse 68 05/19/22 14:00 Resp 18 05/19/22 14:00 BP 125/70 05/19/22 14:00 Pulse Ox 98 05/19/22 14:00 FiO2 Intake & Output 05/19/22 05/19/22 05/20/22 06:59 18:59 06:59 Intake Total 480 Output Total 2 Balance -2 480 Intake: Oral 480 Output: Urine/Stool Mix 2 Other: Voiding Method External Catheter Incontinent # Voids 2 2 # Bowel Movements 2 2 - Constitutional General appearance: Present: no acute distress - EENT Eyes: Present: EOMI ENT: Present: hearing grossly normal, normal oropharynx - Respiratory Respiratory: bilateral: CTA - Cardiovascular Rhythm: regular Heart sounds: normal: S1, S2 - Gastrointestinal General gastrointestinal: Present: normal bowel sounds, soft - Integumentary Integumentary: Present: normal - Neurologic Neurologic: Present: CNII-XII intact, focal deficits (left hemiplegia and contractures) - Musculoskeletal Musculoskeletal Comment(s): left upper and lower extremity contractures Musculoskeletal: Present: generalized weakness, left sided weakness - Psychiatric Psychiatric: Present: A&O x's 3 - Labs CBC & Chem 7: 05/18/22 07:50 05/19/22 07:26 Labs: Abnormal Lab Results - Last 24 Hours (Table) 05/16/22 05/19/22 Range/Units 08:03 07:26 Hemoglobin A1 95.2 L (96.5-97.8) % Hemoglobin A2 4.2 H (2.2-3.2) % Chloride 109 H (98-107) mmol/L BUN 45 H (7-17) mg/dL Creatinine 1.84 H (0.52-1.04) mg/dL Calcium 8.2 L (8.4-10.2) mg/dL Assessment and Plan (1) Microcytic anemia Narrative/Plan: patient's repeat iron studies this admission again show high levels including saturation in the 50% range. This however could be affected by blood transfusion. - Clinical impression of anemia of chronic kidney disease, with acute worsening due to her current infection appears to be most likely - Microcytosis could be due to underlying thalassemia minor, or functional iron deficiency due to inflammation. Hemoglobin electrophoresis can be done as an outpatient 3-4 weeks after blood transfusion rule out the former. However this would not require any treatment with confirmed, if her baseline hemoglobin is in the 10-11 range - Check for other deficiency state to complete workup. - The results and implications discussed with patient - Transfuse to keep hemoglobin greater than 7 Current Visit: Yes Status: Acute Code(s): D50.9 - IRON DEFICIENCY ANEMIA, UNSPECIFIED SNOMED Code(s): 091120469 Plan: continue treatment for pneumonia, as well as JOSE with admitting service and other consultants. Respiratory status is improved. Creatinine has also improved to 2.5.
[2022-05-20] MEDS: LEVOTHYROXINE 75 MCG TAB PO SCH (06:29)
[2022-05-20] MEDS: PIPERACILLIN-TAZOBACTAM 3.375 GM in SODIUM CHLORIDE 0.9% 100 ML IVPB SCH ×3 (06:29→23:17)
[2022-05-20] MEDS: levETIRAcetam IV 500 MG in SODIUM CHLORIDE 0.9% 100 ML IVPB SCH (08:27)
[2022-05-20] MEDS: PANTOPRAZOLE 40 MG/10 ML VIAL IVP SCH (08:27)
[2022-05-20] MEDS: ASPIRIN 81 MG PO SCH (08:27)
[2022-05-20] MEDS: METOPROLOL TARTRATE 50 MG TAB PO SCH ×3 (08:27→20:34)
[2022-05-20] MEDS: FUROSEMIDE 40 MG TAB PO SCH (08:27)
[2022-05-20] MEDS: SODIUM BICARBONATE TAB 650 MG TAB PO SCH ×3 (08:27→20:33)
--- NOTE | 2022-05-20 08:28 | PN ---
PROGRESS NOTE SUBJECTIVE: A 62-year-old female, wants saline injected into the pain pump and replace the morphine before he takes her home. Anemia was discussed with her and oral Cipro for antibiotics will be discussed. A swallow study for possible aspiration will have to be done with barium swallow tomorrow. OBJECTIVE: VITAL SIGNS: Stable, afebrile. CARDIOVASCULAR: S1, S2. LUNGS: Rales at the bases. HEMATOLOGY: Negative Homans. PSYCH: Fair mood and affect. ASSESSMENT AND PLAN: 1. Aspiration pneumonia. 2. Hypothyroidism. 3. Seizure disorder, acute on chronic anemia. 4. Pain pump overdose with confusion, possible morphine allergy. Prognosis guarded. Try to replace saline into the pain pump. Continue other treatment for seizures, acute on chronic anemia, urinary tract infection, and pneumonia treatment. Barium swallow for aspiration, possibly PEG tube if she fails. Discussed with the family. JOURDAN / DANNY: [id number] /
[2022-05-20] MEDS: LACOSAMIDE 50 MG TABLET PO SCH ×2 (08:37→20:33)
--- NOTE | 2022-05-20 10:34 | CDI ---
Documentation Clarification Form Date: 05/20/2022 09:42:43 AM From: Bree Galaviz RN CCDS Admit Date: 05/07/2022 11:30:00 PM Patient Name: Jeane Urbano Visit Number: [id number] Discharge Date: ATTENTION: The Clinical Documentation Specialists (CDI) and [facility] Coding Staff appreciate your assistance in clarifying documentation. Please respond to the clarification below the line at the bottom and electronically sign. The CDI & [facility] Coding staff will review the response and follow-up if needed. Please note: Queries are made part of the Legal Health Record. If you have any questions, please contact the author of this message via ITS. Dr. Mohit Thurman, stage 2 pressure ulcer is documented by Nursing 05/18, Pressure Injury assessment. Based on this information and the findings below, is there an additional diagnosis that is clinically appropriate for this patient? History/Risk Factors: 62-year-old female presents to the ED with swelling, Altered mental status and hypoxemic on admission. Medical history: CVA, OA, stroke, bed bound and HTN. 05/10, Ortho consult. Clinical Indictors: Pressure Injury assessment 05/18 Hospital acquired. Location: Coccyx Stage 2 Wound description: Old pressure injury reopening from patients frequent stooling; provider notified [employer] foam. Treatment: Foam dressing; Turn Q2H. Is there an additional diagnosis that is clinically appropriate for this patient? [ ] Coccyx Pressure Ulcer Stage 2 [ ] Other condition, please specify [ ] Unable to determine Clinical Definitions: Stage 1 Pressure Ulcer: intact skin, non-blanching redness of local area Stage 2 Pressure Ulcer: Partial thickness, loss of dermis, pink wound bed Stage 3 Pressure Ulcer: Full thickness tissue loss Stage 4 Pressure Ulcer: Full thickness tissue loss with exposed bone, tendon, or muscle. Unstageable pressure ulcer: Full thickness tissue loss in which the base of the ulcer is covered by slough (yellow, garcia, vanessa, green or brown) and/or eschar (garcia, brown or black) in the wound bed. (Template Last Revised: September 2020) MTDD
--- NOTE | 2022-05-20 10:37 | CDI ---
Documentation Clarification Form Date: 05/20/2022 09:42:43 AM From: Bree Galaviz RN CCDS Admit Date: 05/07/2022 11:30:00 PM Patient Name: Jeane Urbano Visit Number: [id number] Discharge Date: ATTENTION: The Clinical Documentation Specialists (CDI) and [facility] Coding Staff appreciate your assistance in clarifying documentation. Please respond to the clarification below the line at the bottom and electronically sign. The CDI & [facility] Coding staff will review the response and follow-up if needed. Please note: Queries are made part of the Legal Health Record. If you have any questions, please contact the author of this message via ITS. Dr. Mohit Harley A right heel pressure ulcer is documented by Nursing 05/10, Integumentary Assessment. Based on this information and the findings below, is there an additional diagnosis that is clinically appropriate for this patient? History/Risk Factors: 62-year-old female presents to the ED with swelling, Altered mental status and hypoxemic on admission. Medical history: CVA, OA, stroke, bed bound and HTN. 05/10, Ortho consult. Clinical Indicators: On 05/10 Integumentary Assessment Location: Right Heel Wound description: Scab Clinical Indicators: On 05/16 Pressure Injury Assessment Location: Right Heel Wound description: Deep Tissue Injury: present on admission Treatment: Elevated, Foam dressing, sheep skin cover Is there an additional diagnosis that is clinically appropriate for this patient? [ ] Right Heel Deep tissue injury [ ] Other condition, please specify [ ] Unable to determine Clinical Definitions: Stage 1 Pressure Ulcer: intact skin, non-blanching redness of local area Stage 2 Pressure Ulcer: Partial thickness, loss of dermis, pink wound bed Stage 3 Pressure Ulcer: Full thickness tissue loss Stage 4 Pressure Ulcer: Full thickness tissue loss with exposed bone, tendon, or muscle. Unstageable pressure ulcer: Full thickness tissue loss in which the base of the ulcer is covered by slough (yellow, garcia, vanessa, green or brown) and/or eschar (garcia, brown or black) in the wound bed. (Template Last Revised: September 2020) MTDD
--- NOTE | 2022-05-20 12:01 | P.PN ---
Subjective Patient is seen in follow-up for acute kidney injury. Renal function fairly stable last few days. Resting in bed. Patient is not a reliable historian. Hemoglobin 8.1 dated 05/18/2022. On po Lasix. Incontinent. Blood pressure stable. Vital signs are stable. General: Awake. No acute distress. HEENT: Head exam is unremarkable. LUNGS: Breath sounds decreased. HEART: Rate and Rhythm are regular. ABDOMEN: Soft, no distention. EXTREMITITES: Trace edema. Objective - Vital Signs Vital signs: Vital Signs Temp 98.0 F 05/20/22 08:00 Pulse 64 05/20/22 08:15 Resp 16 05/20/22 08:00 BP 132/71 05/20/22 08:00 Pulse Ox 98 05/20/22 08:00 FiO2 Intake & Output 05/19/22 05/20/22 05/20/22 18:59 06:59 18:59 Intake Total 480 200 Balance 480 200 Intake: Intake, IV Titration 200 Amount Piperacillin-Tazobactam 3 100 .375 gm In Sodium Chloride 0.9% 100 ml @ 25 mls/hr IVPB Q12H [facility] Rx# :[id number] levETIRAcetam IV 750 mg 100 In Sodium Chloride 0.9% 100 ml @ 400 mls/hr IVPB Q24H [facility] Rx#:[id number] Oral 480 Other: Voiding Method Incontinent Incontinent Incontinent # Voids 2 1 # Bowel Movements 2 1 - Labs CBC & Chem 7: 05/18/22 07:50 05/19/22 07:26 Labs: Abnormal Lab Results - Last 24 Hours (Table) 05/16/22 Range/Units 08:03 Hemoglobin A1 95.2 L (96.5-97.8) % Hemoglobin A2 4.2 H (2.2-3.2) % Assessment and Plan Plan: Assessment: 1. Acute kidney injury secondary to ATN secondary to hypotension, infection and acute blood loss anemia. No hydronephrosis noted on kidney ultrasound. Cre atinine was 3.83 on admission - 1.84 yesterday. Creatinine as of 04/28/2022 was 0.69. 2. Pseudomonas UTI on antibiotics. 3. Acute blood loss anemia status post blood transfusion this admission. Iron replete. Hemoglobin 8.1 yesterday. Hematology following. 4. Volume overload. Improving. On po Lasix. 5. Hypernatremia from lack of oral water intake. Improved. 6. Metabolic acidosis secondary to acute kidney injury. On oral bicarb. Stable. Plan: Maintain oral Lasix. Avoid nephrotoxins. Continue to monitor renal function and urine output. Monitor hemoglobin and transfuse as needed. Encouraged oral intake. Add low dose Aranesp.
[2022-05-20] MEDS ORDERED: DARBEPOETIN ALFA 25 MCG/0.42 ML SYRINGE SQ SCH (12:30)
--- NOTE | 2022-05-20 14:54 | FL ---
INDICATION: Patient age:Female; 62 years old; Reason for study: aspiration; PHH. COMPARISON: None TECHNIQUE: Utilizing real-time video recording fluoroscopy, multiple images were obtained after admin istration of various consistencies of barium contrast. A speech pathologist was present throughout the exam. Fluoroscopic time: 1 minute 16 seconds FINDINGS: Consistencies administered: puree, thin, and cracker barium. During the oral phase there is normal f ormation of food bolus with normal initiation of swallow with all consistencies. Premature spill: None identified. Laryngeal penetration: None identified. Piriform Retention:None identified Vallecular retention: None identified. Nasopharyngeal reflux: None identified. Tracheal aspiration: None identified. IMPRESSION: No evidence of tracheal aspiration. Please see dedicated speech pathology report for additional information.
[2022-05-20] MEDS: levETIRAcetam IV 750 MG in SODIUM CHLORIDE 0.9% 100 ML IVPB SCH (20:33)
[2022-05-20] MEDS: ATORVASTATIN 20 MG TAB PO SCH (20:34)
--- NOTE | 2022-05-20 21:09 | P.PCN ---
Date of Procedure: 05/20/22 Description of Procedure: PREOP DIAGNOSIS: Preoperative diagnosis: Chronic pain syndrome, and altered mental status Status post intrathecal pump for chronic pain management placed on 04/21/2022 POSTOPERATIVE DIAGNOSIS: Altered mental status , Chronic pain syndrome, and Status post intrathecal pump for chronic pain management PROCEDURES: 1. Intrathecal pump analysis. 2. Removal of the intrathecal pain pump medications 3. Intrathecal pump reprogramming. ANESTHESIA: None. EBL: None. COMPLICATIONS: None. IV FLUIDS: None. PROCEDURE INDICATION: Patient had a history of altered mental status, requested a consult to remove intrathecal pain pump medication. PROCEDURE DESCRIPTION: The patient was seen and identified on the bed. Risks, benefits, complications, and alternatives were discussed with patient and guardian-Sivan Howard.. Agreed to proceed with the procedure, gave the informed consent. Witnessed by patient's RN Tricia. Intrathecal pump was analyzed and displayed the following information: Type: SynchroMed Type II B Medication: morphine 25 mg/ml infusion at 0.145 mg/day Pump Volume: 20 ml [place] Volume: 19.1 ml Lo [place] Alarm Date: PTM: Disabled At this time, the area of the intrathecal pump was exposed, prepped with ChloraPrep x2 , and draped in the usual sterile fashion. After which, the [employer] template was used to identify the area of the skin overlying the refill port-3o'clock position. After which, a 22-gauge Mena needle attached to an extension tubing, which was clamped, attached to a syringe and inserted through the skin into the refill port. At that point, 19.5 mL of clear fluid was aspirated. Medication and disposed appropriately with witnessed by RN. After adjustment, the pump status was: Type: SynchroMed Type II B Actual intrathecal pain pump reservoir volume: ZERO, but Medtronic device not letting us to and and the value of the reservoir 0. So-called online [employer] support customer care. Recommended continue minimal infusion per day which is 0.006 mL per day, other option permanent shutdown. or IT pump refill with normal saline, and run with a minimal infusion per day. Also called patient pain physician ( Dr. Gold Koch) to get his opinion for IT pump adjustment, but no response. Later informed consent obtained from legal guardian, RN witnessed for intrathecal pump refill with preservative-free normal saline. ANESTHESIA: None. EBL: None. COMPLICATIONS: None. IV FLUIDS: None. PROCEDURE DESCRIPTION: The patient was seen and identified in the room . Risks, benefits, complications, and alternatives were discussed with the patient, and legal guardian. The patient agreed to proceed with the procedure. Intrathecal pump was analyzed. At this time, the area of the intrathecal pump was exposed, prepped with ChloraPrep x2 , and draped in the usual sterile fashion. After which, the [employer] template was used to identify the area of the skin overlying the refill port. After which, a 22-gauge Mena needle attached to an extension tubing, which was clamped, attached to a syringe and inserted through the skin into the refill port. At that point,0 mL of clear fluid was aspirated. The tubing was reclamped. And 15 mL of preservative free 0.9% normal saline syringe was attached to a filter, which was primed and subsequently injected into the pump in increments with intermittent aspiration to ensure placement into the intrathecal pump. At this point, the pump was reprogrammed. The dose was adjusted : Continued minimal infusion per day Type: SynchroMed Type II B Medication: 0.9% preservative-free normal saline ( 1 mL /ml as per [employer] online customer care recommendation)-infusion at the rate of 0.0058 mL per day Pump Volume: 20 ml [place] Volume: 15 ml Lo [place] Alarm Date: 12 weeks PTM: Disabled The patient tolerated the procedure well. Patient recommended to follow-up with intrathecal pump management after recovered from her altered mental status with her primary pain physician- Dr. Gold Koch.
[2022-05-21] MEDS: LEVOTHYROXINE 75 MCG TAB PO SCH (05:53)
[2022-05-21] MEDS: PIPERACILLIN-TAZOBACTAM 3.375 GM in SODIUM CHLORIDE 0.9% 100 ML IVPB SCH (05:53)
[2022-05-21 07:34] VITALS: RESP 18
[2022-05-21] MEDS: PANTOPRAZOLE 40 MG/10 ML VIAL IVP SCH (09:01)
[2022-05-21] MEDS: FUROSEMIDE 40 MG TAB PO SCH (09:01)
[2022-05-21] MEDS: ASPIRIN 81 MG PO SCH (09:01)
[2022-05-21] MEDS: LACOSAMIDE 50 MG TABLET PO SCH (09:01)
[2022-05-21] MEDS: SODIUM BICARBONATE TAB 650 MG TAB PO SCH (09:01)
[2022-05-21 09:03] LABS: HCT 24.6 % (37.2-46.3); HGB 8.1 g/dL (12.0-15.0); MCH 25.1 pg (27.0-32.0); MCHC 32.9 g/dL (32.0-37.0); MCV 76.2 fL (80.0-97.0); Mean Platelet Volume 11.3 fL (9.5-12.2); NRBC Per 100 WBC 0 /100 WBCS (0.0-0.0); Platelet Count 242 X 10*3/uL (140-440); RBC 3.23 X 10*6/uL (4.10-5.20); RDW 22.2 % (11.5-14.5); WBC 10.09 X 10*3/uL (4.50-10.00)
[2022-05-21 09:21] LABS: African American GFR (CKD) 26.6 (60.0-200.0); Albumin 2.8 g/dL (3.8-4.9); Albumin/Globulin Ratio 1.08 (1.60-3.17); Anion Gap 12.9 mmol/L (10.00-18.00); BUN/Creat Ratio 18.18 Ratio (12.00-20.00); Calcium 8.8 mg/dL (8.7-10.3); Carbon Dioxide 22.1 mmol/L (20.0-27.5); Globulin 2.6 g/dL (1.6-3.3); Non-African American GFR(CKD) 22.9 (60.0-200.0); Potassium 4.6 mmol/L (3.5-5.5); Total Bilirubin 0.3 mg/dL (0.30-1.20); Total Protein 5.4 g/dL (6.2-8.2)
[2022-05-21 09:49] LABS: Basophils # (A) 0.04 X 10*3/uL (0.00-0.10); Basophils % (A) 0.4 %; Eosinophils # (A) 0.62 X 10*3/uL (0.04-0.35); Eosinophils % (A) 6.1 %; Immature Grans, Automated 0.4 %; Lymphocytes # (A) 3.32 X 10*3/uL (0.90-5.00); Lymphocytes % (A) 32.9 %; Monocytes % (A) 12.9 %; Neutrophils # (A) 4.77 X 10*3/uL (1.80-7.70); Neutrophils % (A) 47.3 %
[2022-05-21 09:50] LABS: Anisocytosis (M) 2+; Elliptocytes 2+; Target Cells 2+
[2022-05-21] MEDS: levETIRAcetam IV 500 MG in SODIUM CHLORIDE 0.9% 100 ML IVPB SCH (10:39)
--- NOTE | 2022-05-21 11:39 | P.PN ---
Subjective Patient is seen in follow-up for acute kidney injury. Renal function a little worsened. Creatinine 2.2 today. Oral intake is just fair but is having ensure. Resting in bed. Patient is not a reliable historian. Hemoglobin stable. On po Lasix. Incontinent. Blood pressure high this morning but frustrating 7 stable. On room air. Vital signs are stable. General: Awake. No acute distress. HEENT: Head exam is unremarkable. LUNGS: Breath sounds decreased. HEART: Rate and Rhythm are regular. ABDOMEN: Soft, no distention. EXTREMITITES: Trace edema. Objective - Vital Signs Vital signs: Vital Signs Temp 98.2 F 05/21/22 07:33 Pulse 90 05/21/22 09:04 Resp 18 05/21/22 09:04 BP 186/94 05/21/22 07:33 Pulse Ox 96 05/21/22 07:33 FiO2 Intake & Output 05/20/22 05/21/22 05/21/22 18:59 06:59 18:59 Intake Total 700 Balance 700 Intake: Intake, IV Titration 300 Amount Piperacillin-Tazobactam 3 200 .375 gm In Sodium Chloride 0.9% 100 ml @ 25 mls/hr IVPB Q8H [facility] Rx#: [id number] levETIRAcetam IV 750 mg 100 In Sodium Chloride 0.9% 100 ml @ 400 mls/hr IVPB Q24H [facility] Rx#:[id number] Oral 400 Other: Voiding Method Incontinent Incontinent Incontinent # Voids 3 1 # Bowel Movements 1 - Labs CBC & Chem 7: 05/21/22 05:44 05/21/22 05:44 Labs: Abnormal Lab Results - Last 24 Hours (Table) 05/21/22 05/21/22 Range/Units 05:44 05:44 WBC 10.09 H (4.50-10.00) X 10*3/uL RBC 3.23 L (4.10-5.20) X 10*6/uL Hgb 8.1 L (12.0-15.0) g/dL Hct 24.6 L (37.2-46.3) % MCV 76.2 L (80.0-97.0) fL MCH 25.1 L (27.0-32.0) pg RDW 22.2 H (11.5-14.5) % Monocytes # 1.30 H (0.20-1.00) X 10*3/uL Eosinophils # 0.62 H (0.04-0.35) X 10*3/uL Chloride 110 H (96-109) mmol/L BUN 40.0 H (9.0-27.0) mg/dL Creatinine 2.2 H (0.6-1.5) mg/dL Est GFR (CKD-EPI)AfAm 26.6 L (60.0-200.0) Est GFR (CKD-EPI)NonAf 22.9 L (60.0-200.0) Total Protein 5.4 L (6.2-8.2) g/dL Albumin 2.8 L (3.8-4.9) g/dL Albumin/Globulin Ratio 1.08 L (1.60-3.17) g/dL Assessment and Plan Plan: Assessment: 1. Acute kidney injury secondary to ATN secondary to hypotension, infection and acute blood loss anemia. No hydronephrosis noted on kidney ultrasound. C reatinine was 3.83 on admission - 2.2 today. Creatinine as of 04/28/2022 was 0.69. 2. Pseudomonas UTI on antibiotics. 3. Acute blood loss anemia status post blood transfusion this admission. Iron replete. Hemoglobin stable. Hematology following. On Aranesp. 4. Volume overload. Improving. On po Lasix. 5. Hypernatremia from lack of oral water intake. Improved. Sodium 145 today. 6. Metabolic acidosis secondary to acute kidney injury. On oral bicarb. Stable. Plan: Maintain oral Lasix. Avoid nephrotoxins. Continue to monitor renal function and urine output. Monitor hemoglobin and transfuse as needed. Encouraged oral intake, including free water.
--- NOTE | 2022-05-21 13:06 | P.PN ---
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 Chronic pain syndrome due to muscle spasm status post pump in March 2022 Large right hemispheric parietal stroke Bedbound status Right upper extremity swelling due to prior IV axis no evidence of DVTs maintain patient on DVT prophylaxis, continue deep breathing exercises incentive spirometry monitor observe renal functions closely 05/20/2022 patient seen eval reexamined, patient remains on room air breathing comfortably, denies any chest pain, patient to undergo intrathecal pump evaluation by anesthesia, also to be evaluated for swallow evaluation 05/18/2022, patient seen eval reexamined labs reviewed medications reviewed care plan discussed, awake and alert denies any chest pain, currently on 2 L oxygen, vitals stable hemoglobin is 8.1, white cell count 6.9, BUN/creatinine continued to improve down to 45/1.88, patient being continued on Zosyn 05/17/2022, patient seen eval examined during the rounds labs reviewed medications reviewed, patient is on room air breathing comfortably, pleasant, wishes to go home, remains afebrile, labs from today pending, stool for C. difficile is negative 05/16/2022, patient seen eval examined during the rounds overall fairly stable with 2 L oxygen patient remains on broad-spectrum antibiotics has been on bicarb which is being changed to oral as per nephrology, remains afebrile hemodynamically stable with oxygen saturation of 95-97% room air 05/15/2022, patient seen eval examined overall no significant change remains on 2 L oxygen intermittent cough is present, vitals are stable room air saturation 100%, advised to patient to monitor observe off of oxygen, patient remains on bicarb drip along with Zosyn. No cervical lab reviewed BUN/creatinine is 46/2.5 overall stable and improved, ultrasound of the chest reviewed very tiny pleural effusion is present the right side will monitor observe no plans for thoracentesis 05/14/2022, patient seen and evaluated examined during rounds labs reviewed medications reviewed care plan discussed, remains on 2 L oxygen, shortness of breath activity and exertion present, patient being treated for pseudomonas with IV Zosyn, has been placed on IV Drip as per renal services, labs from today [facility], ultrasound of the kidney revealed presence of right pleural effusion will obtain dedicated right-sided ultrasound to estimate 05/12/2022, patient seen eval examined, patient remains on 2 L supplemental oxygen saturation is stable remains afebrile, woman dynamically stable, no significant changes present, last set of vitals include blood pressure 1077/75, respiratory 20, heart rate 90, temperature 98.4, situation 100% 2 L oxygen patient remains on the Keppra along with Synthroid continuation of home medications and IV Zosyn tolerating well, chemistry reviewed sodium is 148 coming down, potassium 4.8 down from 5.4 yesterday BUN/creatinine continued to improve 50/3.09, 2 sets of blood cultures have been negative however urine is positive for pseudomonas aeruginosa 05/10/2022, patient seen eval examined overall respiratory status remained stable, however he still short of breath with minimal activity in next exertion, she remains on 2 L oxygen, patient remains afebrile and hemodynamically stable intermittent tachycardia is present, T-max is 99, urine culture came back positive for pseudomonas aeruginosa, sensitive to Zosyn, Patient is a 62-year-old female came into the hospital with right arm swelling she was recently hospitalized for pneumonia she also has contracted extremities underwent pump placement for baclofen and morphine patient has been more somnolent also has ongoing problem of nausea and vomiting and inability to tolerate the pain medications. Patient is mostly nonverbal and noncommunicative daughter is present at the bedside who is a source of information, past medical history significant for CVA/TIA, dyslipidemia, hypertension hypertensive cardiovascular disease, chronic anemia, left-sided weakness and lower extremity weakness due to stroke, gout, pancreatitis, so the seizures, history of multiple brain aneurysms requiring quite ill and stent placement. Pain pump was inserted on 04/21/2022. Patient has extensive history of smoking and nicotine use quit about 8 years ago used to smoke one to 2 packs per day Of arrival she was tachypneic and tachycardic heart rate is 120 also hypertensive blood pressure 160/90 saturation 92% her right was swelling. Patient received Narcan. Patient was negative for coronary influenza, chest x-ray showed interstitial edema, patient was started on Keflex and Zithromax, also received Narcan, she was found to have acute kidney disease with BUN/creatinine of 52/3.83, troponin were less than 0.012, potassium was 5.3. Duplex ultrasound the right upper extremity negative for DVT. Computed tomography scan of the head significant for cerebral atrophy along with a right hemispheric infarct. VQ scan is very low probability for PE homogenous distribution of tracer bilaterally in the lungs noted no discrete perfusion defects seen. Computed tomography scan without contrast small tiny bilateral effusions seen along with groundglass attenuation slightly worse. Currently patient has been treated with Zosyn along with Zithromax swelling in the right upper extremity significant improvement appears to be related to prior IV axis in the hand Objective - Vital Signs Vital signs: Vital Signs Temp 98.0 F 05/20/22 08:00 Pulse 64 05/20/22 08:15 Resp 16 05/20/22 08:00 BP 132/71 05/20/22 08:00 Pulse Ox 98 05/20/22 08:00 FiO2 Intake & Output 05/19/22 05/20/22 05/20/22 18:59 06:59 18:59 Intake Total 480 200 Balance 480 200 Intake: Intake, IV Titration 200 Amount Piperacillin-Tazobactam 3 100 .375 gm In Sodium Chloride 0.9% 100 ml @ 25 mls/hr IVPB Q12H [facility] Rx# :[id number] levETIRAcetam IV 750 mg 100 In Sodium Chloride 0.9% 100 ml @ 400 mls/hr IVPB Q24H [facility] Rx#:[id number] Oral 480 Other: Voiding Method Incontinent Incontinent Incontinent # Voids 2 1 # Bowel Movements 2 1 - Exam - Constitutional General appearance: average body habitus, disheveled, mild distress - EENT Eyes: EOMI, PERRLA ENT: normal oropharynx Ears: bilateral: normal - Neck Carotids: bilateral: upstroke normal Thyroid: bilateral: normal size - Respiratory Respiratory: bilateral: diminished - Cardiovascular Rhythm: regular Heart sounds: normal: S1, S2 - Gastrointestinal General gastrointestinal: soft - Neurologic Contracted unable to examine neurological status at length but appears to be on the left side due to prior stroke with contractured - Labs CBC & Chem 7: 05/21/22 05:44 05/21/22 05:44 Labs: Abnormal Lab Results - Last 24 Hours (Table) 05/16/22 Range/Units 08:03 Hemoglobin A1 95.2 L (96.5-97.8) % Hemoglobin A2 4.2 H (2.2-3.2) % Assessment and Plan Assessment: Altered mental status, overall stable anesthesia evaluating pain pump Right-sided pleural effusion, reviewed ultrasound of the chest very tiny effusion is present we'll monitor observe Urinary tract infection with Pseudomonas aeruginosa sensitive to Zosyn, will continue it, however can be switched to oral like Augmentin Acute hypoxic respiratory failure due to bilateral healthcare associated pneumo mitzi, Acute on chronic kidney disease with slight improvement in kidney function 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
--- NOTE | 2022-05-21 13:09 | P.PN ---
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 Chronic pain syndrome due to muscle spasm status post pump in March 2022 Large right hemispheric parietal stroke Bedbound status Right upper extremity swelling due to prior IV axis no evidence of DVTs maintain patient on DVT prophylaxis, continue deep breathing exercises incentive spirometry monitor observe renal functions closely 05/21/2022, patient seen eval examined during the rounds labs reviewed medications reviewed respiratory status remained stable patient mostly on room air, in control better solid evaluation reports reviewed, white cell count is 10.09, hemoglobin hematocrit of 8.1/24, overall stable, BUN/creatinine fluctuating today is 40/2.2 05/20/2022 patient seen eval reexamined, patient remains on room air breathing comfortably, denies any chest pain, patient to undergo intrathecal pump evaluation by anesthesia, also to be evaluated for swallow evaluation 05/18/2022, patient seen eval reexamined labs reviewed medications reviewed care plan discussed, awake and alert denies any chest pain, currently on 2 L oxygen, vitals stable hemoglobin is 8.1, white cell count 6.9, BUN/creatinine continued to improve down to 45/1.88, patient being continued on Zosyn 05/17/2022, patient seen eval examined during the rounds labs reviewed medications reviewed, patient is on room air breathing comfortably, pleasant, wishes to go home, remains afebrile, labs from today pending, stool for C. difficile is negative 05/16/2022, patient seen eval examined during the rounds overall fairly stable with 2 L oxygen patient remains on broad-spectrum antibiotics has been on bicarb which is being changed to oral as per nephrology, remains afebrile hemodynamically stable with oxygen saturation of 95-97% room air 05/15/2022, patient seen eval examined overall no significant change remains on 2 L oxygen intermittent cough is present, vitals are stable room air saturation 100%, advised to patient to monitor observe off of oxygen, patient remains on bicarb drip along with Zosyn. No cervical lab reviewed BUN/creatinine is 46/2.5 overall stable and improved, ultrasound of the chest reviewed very tiny pleural effusion is present the right side will monitor observe no plans for t horacentesis 05/14/2022, patient seen and evaluated examined during rounds labs reviewed medications reviewed care plan discussed, remains on 2 L oxygen, shortness of breath activity and exertion present, patient being treated for pseudomonas with IV Zosyn, has been placed on IV Drip as per renal services, labs from today pending, ultrasound of the kidney revealed presence of right pleural effusion will obtain dedicated right-sided ultrasound to estimate 05/12/2022, patient seen eval examined, patient remains on 2 L supplemental oxygen saturation is stable remains afebrile, woman dynamically stable, no significant changes present, last set of vitals include blood pressure 1077/75, respiratory 20, heart rate 90, temperature 98.4, situation 100% 2 L oxygen patient remains on the Keppra along with Synthroid continuation of home medications and IV Zosyn tolerating well, chemistry reviewed sodium is 148 coming down, potassium 4.8 down from 5.4 yesterday BUN/creatinine continued to improve 50/3.09, 2 sets of blood cultures have been negative however urine is positive for pseudomonas aeruginosa 05/10/2022, patient seen eval examined overall respiratory status remained stable, however he still short of breath with minimal activity in next exertion, she remains on 2 L oxygen, patient remains afebrile and hemodynamically stable intermittent tachycardia is present, T-max is 99, urine culture came back positive for pseudomonas aeruginosa, sensitive to Zosyn, Patient is a 62-year-old female came into the hospital with right arm swelling she was recently hospitalized for pneumonia she also has contracted extremities underwent pump placement for baclofen and morphine patient has been more somnolent also has ongoing problem of nausea and vomiting and inability to tolerate the pain medications. Patient is mostly nonverbal and noncommunicative daughter is present at the bedside who is a source of information, past medical history significant for CVA/TIA, dyslipidemia, hypertension hypertensive cardiovascular disease, chronic anemia, left-sided weakness and lower extremity weakness due to stroke, gout, pancreatitis, so the seizures, history of multiple brain aneurysms requiring quite ill and stent placement. Pain pump was inserted on 04/21/2022. Patient has extensive history of smoking and nicotine use quit about 8 years ago used to smoke one to 2 packs per day Of arrival she was tachypneic and tachycardic heart rate is 120 also hypertensive blood pressure 160/90 saturation 92% her right was swelling. Patient received Narcan. Patient was negative for coronary influenza, chest x-ray showed interstitial edema, patient was started on Keflex and Zithromax, also received Narcan, she was found to have acute kidney disease with BUN/creatinine of 52/3.83, troponin were less than 0.012, potassium was 5.3. Duplex ultrasound the right upper extremity negative for DVT. Computed tomography scan of the head significant for cerebral atrophy along with a right hemispheric infarct. VQ scan is very low probability for PE homogenous distribution of tracer bilaterally in the lungs noted no discrete perfusion defects seen. Computed tomography scan without contrast sma ll tiny bilateral effusions seen along with groundglass attenuation slightly worse. Currently patient has been treated with Zosyn along with Zithromax swelling in the right upper extremity significant improvement appears to be related to prior IV axis in the hand Objective - Vital Signs Vital signs: Vital Signs Temp 98.2 F 05/21/22 07:33 Pulse 90 05/21/22 09:04 Resp 18 05/21/22 09:04 BP 186/94 05/21/22 07:33 Pulse Ox 96 05/21/22 07:33 FiO2 Intake & Output 05/20/22 05/21/22 05/21/22 18:59 06:59 18:59 Intake Total 700 Balance 700 Intake: Intake, IV Titration 300 Amount Piperacillin-Tazobactam 3 200 .375 gm In Sodium Chloride 0.9% 100 ml @ 25 mls/hr IVPB Q8H [facility] Rx#: [id number] levETIRAcetam IV 750 mg 100 In Sodium Chloride 0.9% 100 ml @ 400 mls/hr IVPB Q24H [facility] Rx#:[id number] Oral 400 Other: Voiding Method Incontinent Incontinent Incontinent # Voids 3 1 # Bowel Movements 1 - Exam - Constitutional General appearance: average body habitus, disheveled, mild distress - EENT Eyes: EOMI, PERRLA ENT: normal oropharynx Ears: bilateral: normal - Neck Carotids: bilateral: upstroke normal Thyroid: bilateral: normal size - Respiratory Respiratory: bilateral: diminished - Cardiovascular Rhythm: regular Heart sounds: normal: S1, S2 - Gastrointestinal General gastrointestinal: soft - Neurologic Contracted unable to examine neurological status at length but appears to be on the left side due to prior stroke with contractured - Labs CBC & Chem 7: 05/21/22 05:44 05/21/22 05:44 Labs: Abnormal Lab Results - Last 24 Hours (Table) 05/21/22 05/21/22 Range/Units 05:44 05:44 WBC 10.09 H (4.50-10.00) X 10*3/uL RBC 3.23 L (4.10-5.20) X 10*6/uL Hgb 8.1 L (12.0-15.0) g/dL Hct 24.6 L (37.2-46.3) % MCV 76.2 L (80.0-97.0) fL MCH 25.1 L (27.0-32.0) pg RDW 22.2 H (11.5-14.5) % Monocytes # 1.30 H (0.20-1.00) X 10*3/uL Eosinophils # 0.62 H (0.04-0.35) X 10*3/uL Chloride 110 H (96-109) mmol/L BUN 40.0 H (9.0-27.0) mg/dL Creatinine 2.2 H (0.6-1.5) mg/dL Est GFR (CKD-EPI)AfAm 26.6 L (60.0-200.0) Est GFR (CKD-EPI)NonAf 22.9 L (60.0-200.0) Total Protein 5.4 L (6.2-8.2) g/dL Albumin 2.8 L (3.8-4.9) g/dL Albumin/Globulin Ratio 1.08 L (1.60-3.17) g/dL Assessment and Plan Assessment: Altered mental status, overall stable anesthesia evaluating pain pump Right-sided pleural effusion, reviewed ultrasound of the chest very tiny effusion is present we'll monitor observe Urinary tract infection with Pseudomonas aeruginosa sensitive to Zosyn, will continue it, however can be switched to oral like Augmentin Acute hypoxic respiratory failure due to bilateral healthcare associated pneumonia, Acute on chronic kidney disease with stable kidney function 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
[2022-05-21] MEDS ORDERED: CIPROFLOXACIN HCL 250 MG TAB PO SCH (13:30)
[2022-05-21 15:40] VITALS: BP 144/83; PULSE 102; TEMP 98.3
--- NOTE | 2022-05-21 17:54 | P.PN ---
Subjective Progress Note Date: 05/21/22 Principal diagnosis: microcytic anemia In f/u today pt is drowsy, she denied pain, bleeding, chest pain or shortness of breath. Objective - Vital Signs Vital signs: Vital Signs Temp 98.2 F 05/21/22 07:33 Pulse 90 05/21/22 09:04 Resp 18 05/21/22 09:04 BP 186/94 05/21/22 07:33 Pulse Ox 96 05/21/22 07:33 FiO2 Intake & Output 05/20/22 05/21/22 05/21/22 18:59 06:59 18:59 Intake Total 700 Balance 700 Intake: Intake, IV Titration 300 Amount Piperacillin-Tazobactam 3 200 .375 gm In Sodium Chloride 0.9% 100 ml @ 25 mls/hr IVPB Q8H [facility] Rx#: [id number] levETIRAcetam IV 750 mg 100 In Sodium Chloride 0.9% 100 ml @ 400 mls/hr IVPB Q24H [facility] Rx#:[id number] Oral 400 Other: Voiding Method Incontinent Incontinent Incontinent # Voids 3 1 # Bowel Movements 1 - Constitutional General appearance: Present: cooperative, no acute distress, thin - EENT Eyes: Present: anicteric sclerae ENT: Present: hearing grossly normal - Respiratory Respiratory: bilateral: CTA - Cardiovascular Rhythm: regular Heart sounds: normal: S1, S2 Abnormal Heart Sounds: Absent: systolic murmur, diastolic murmur, rub, S3 Gallop, S4 Gallop, click, other - Peripheral edema leg Peripheral Edema: bilateral: None - Gastrointestinal General gastrointestinal: Present: normal bowel sounds, soft - Musculoskeletal Musculoskeletal: Present: generalized weakness - Labs CBC & Chem 7: 05/21/22 05:44 05/21/22 05:44 Labs: Abnormal Lab Results - Last 24 Hours (Table) 05/21/22 05/21/22 Range/Units 05:44 05:44 WBC 10.09 H (4.50-10.00) X 10*3/uL RBC 3.23 L (4.10-5.20) X 10*6/uL Hgb 8.1 L (12.0-15.0) g/dL Hct 24.6 L (37.2-46.3) % MCV 76.2 L (80.0-97.0) fL MCH 25.1 L (27.0-32.0) pg RDW 22.2 H (11.5-14.5) % Monocytes # 1.30 H (0.20-1.00) X 10*3/uL Eosinophils # 0.62 H (0.04-0.35) X 10*3/uL Chloride 110 H (96-109) mmol/L BUN 40.0 H (9.0-27.0) mg/dL Creatinine 2.2 H (0.6-1.5) mg/dL Est GFR (CKD-EPI)AfAm 26.6 L (60.0-200.0) Est GFR (CKD-EPI)NonAf 22.9 L (60.0-200.0) Total Protein 5.4 L (6.2-8.2) g/dL Albumin 2.8 L (3.8-4.9) g/dL Albumin/Globulin Ratio 1.08 L (1.60-3.17) g/dL Assessment and Plan (1) Microcytic anemia Status: Acute Priority: Medium Code(s): D50.9 - IRON DEFICIENCY ANEMIA, UNSPECIFIED SNOMED Code(s): 392975635 (2) Acute kidney injury Status: Acute Code(s): N17.9 - ACUTE KIDNEY FAILURE, UNSPECIFIED SNOMED Code(s): 21748865 Plan: Hgb stable today. Transfuse for Hgb< 7 Agree with cont LOIS, per Nephrology F/U with Dr. Lyle Valderrama for additional work up out pt
[2022-05-21] MEDS ORDERED: PIPERACILLIN-TAZOBACTAM 3.375 GM in SODIUM CHLORIDE 0.9% 100 ML IVPB SCH (18:00)
--- NOTE | 2022-05-22 01:38 | PN ---
PROGRESS NOTE SUBJECTIVE: A 62-year-old female, who passed a barium swallow test. No signs of aspiration. She remains on Aranesp for chronic anemia, levetiracetam for seizures. She will go to [facility] to reverse the morphine pump. Increase diet. Possibly discharge home. OBJECTIVE: CARDIOVASCULAR: S1, S2. LUNGS: Clear. GI: Soft. HEMATOLOGY: Negative Homans. PSYCH: Fair mood and affect. ASSESSMENT: Acute on chronic anemia, urinary tract infection, pneumonia, renal disease, malnutrition. Removal of intrathecal pump medicines was done, reprogramming. The patient will possibly follow up on discharge to go home with her oral antibiotics per Dr. Tristan's recommendations after pain pump has been reversed. Prognosis guarded. MMODL / IJN: [id number] /
--- NOTE | 2022-05-22 09:23 | CDI ---
Documentation Clarification Form Date: 05/14/2022 04:23:00 PM From: Bree Galaviz Admit Date: 05/07/2022 11:30:00 PM Patient Name: Jeane Urbano Visit Number: [id number] Discharge Date: 05/21/2022 05:39:00 PM ATTENTION: The Clinical Documentation Specialists (CDI) and [facility] Coding Staff appreciate your assistance in clarifying documentation. Please respond to the clarification below the line at the bottom and electronically sign. The CDI & [facility] Coding staff will review the response and follow-up if needed. Please note: Queries are made part of the Legal Health Record. If you have any questions, please contact the author of this message via ITS. Dr. Mohit Harley Conflicting documentation has been found in the medical record. As attending physician, please provide clarification. Aspiration pneumonia, H&P, 05/09. Healthcare associated, Medicine note, 05/12. History/Risk Factors: 62-year-old female presents to the ED with altered mental status, edema and hypoxemia. Medical history: Recent treatment of aspiration pneumonia and dehydration. Medical history: CVA, HTN, Bed bound and contractures. 05/09, H&P. Clinical Indicators: WBC: 05/07 6.8 X-ray: 05/07 Some interstitial pneumonia that is worse on the left side and not significantly different than last exam. Lung/Breathing assessment: 05/09 Mild wheezes, rhonchi Treatment: 05/11 Solumedrol IV Q8H. Antibiotics: 05/07 Rocephin IVP x 1; 05/08 05/09 Rocephin IVPB Q24H; 05/09 Zosyn IVPB Q12H; 05/07 Azithromycin IVPB x 1; 05/09 Azithromycin IVPB Daily d/c 05/09 one dose administered. O2: 2L nasal cannula Please clarify the type of pneumonia, if known: [ ] Aspiration Pneumonia, Due to food or vomitus [ ] Gram Negative Bacterial Pneumonia [ ] Other bacteria (please specify) [ ] Other, please specify [ ] Unable to determine (Template Last Revised: September 2020) MTDD
--- NOTE | 2022-05-22 09:24 | CDI ---
Documentation Clarification Form Date: 05/14/2022 04:58:00 PM From: Bree Galaviz Admit Date: 05/07/2022 11:30:00 PM Patient Name: Jeane Urbano Visit Number: [id number] Discharge Date: 05/21/2022 05:39:00 PM ATTENTION: The Clinical Documentation Specialists (CDI) and [facility] Coding Staff appreciate your assistance in clarifying documentation. Please respond to the clarification below the line at the bottom and electronically sign. The [facility] & [facility] Coding staff will review the response and follow-up if needed. Please note: Queries are made part of the Legal Health Record. If you have any questions, please contact the author of this message via ITS. Dr. Mohit Harley Documentation Clarification Form Date: 05/14/2022 04:58:13 PM From: Bree Galaviz RN CCDS Admit Date: 05/07/2022 11:30:00 PM Patient Name: Jeane Urbano Visit Number: [id number] Discharge Date: ATTENTION: The Clinical Documentation Specialists (CDI) and [facility] Coding Staff appreciate your assistance in clarifying documentation. Please respond to the clarification below the line at the bottom and electronically sign. The [facility] & [facility] Coding staff will review the response and follow-up if needed. Please note: Queries are made part of the Legal Health Record. If you have any questions, please contact the author of this message via ITS. Dr. Mohit Harley Chronic medical debility, chronically Bedbound is being documented, 05/11-05/12, Medical notes. Based on this information and the findings below, is there an additional diagnosis that is clinically appropriate for this patient? History/Risk Factors: 62-year-old female presents to the ED with altered mental status, edema and hypoxemia. Medical history: Recent treatment of aspiration pneumonia and dehydration. Medical history: CVA, HTN, Bed bound and contractures. 05/09, H&P Clinical Indicators: Nursing physical assessment 05/09 Bilateral lower extremities: Muscle tone: weak; Movement description: Contracture, limited, stiff; Muscle strength: Poor. Left upper extremity: Movement: contractures; Muscle strength Poor. Activities of Daily living 05/08 Activity ability: maximum assistance. Patient is contracted and non-ambulatory; total assist Treatment: Active range of motion; Two person assist; complete bed bath; HOB up, Log roll, Close observation, Is there an additional diagnosis that is clinically appropriate for this patient? [ ] Functional Quadriplegia [ ] Complete Immobility due to frailty/severe debility [ ] Generalized weakness: (please specify etiology if known) [ ] Other (please specify) [ ] Unable to determine (Template Last Revised: September 2020) MTDD
--- NOTE | 2022-05-22 09:25 | CDI ---
Documentation Clarification Form Date: 05/20/2022 09:42:00 AM From: Bree Galaviz Admit Date: 05/07/2022 11:30:00 PM Patient Name: Jeane Urbano Visit Number: [id number] Discharge Date: 05/21/2022 05:39:00 PM ATTENTION: The Clinical Documentation Specialists (CDI) and [facility] Coding Staff appreciate your assistance in clarifying documentation. Please respond to the clarification below the line at the bottom and electronically sign. The [facility] & [facility] Coding staff will review the response and follow-up if needed. Please note: Queries are made part of the Legal Health Record. If you have any questions, please contact the author of this message via ITS. Dr. Mohit Harley Documentation Clarification Form Date: 05/20/2022 09:42:43 AM From: Bree Galaviz RN CCDS Admit Date: 05/07/2022 11:30:00 PM Patient Name: Jeane Urbano Visit Number: [id number] Discharge Date: ATTENTION: The Clinical Documentation Specialists (CDI) and [facility] Coding Staff appreciate your assistance in clarifying documentation. Please respond to the clarification below the line at the bottom and electronically sign. The [facility] & [facility] Coding staff will review the response and follow-up if needed. Please note: Queries are made part of the Legal Health Record. If you have any questions, please contact the author of this message via ITS. Dr. Mohit Parks Coccyx, stage 2 pressure ulcer is documented by Nursing 05/18, Pressure Injury assessment. Based on this information and the findings below, is there an additional diagnosis that is clinically appropriate for this patient? History/Risk Factors: 62-year-old female presents to the ED with swelling, Altered mental status and hypoxemic on admission. Medical history: CVA, OA, stroke, bed bound and HTN. 05/10, Ortho consult. Clinical Indictors: Pressure Injury assessment 05/18 Hospital acquired. Location: Coccyx Stage 2 Wound description: Old pressure injury reopening from patients frequent stooling; provider notified [employer]i foam. Treatment: Foam dressing; Turn Q2H. Is there an additional diagnosis that is clinically appropriate for this patient? [ ] Coccyx Pressure Ulcer Stage 2 [ ] Other condition, please specify [ ] Unable to determine Clinical Definitions: Stage 1 Pressure Ulcer: intact skin, non-blanching redness of local area Stage 2 Pressure Ulcer: Partial thickness, loss of dermis, pink wound bed Stage 3 Pressure Ulcer: Full thickness tissue loss Stage 4 Pressure Ulcer: Full thickness tissue loss with exposed bone, tendon, or muscle. Unstageable pressure ulcer: Full thickness tissue loss in which the base of the ulcer is covered by slough (yellow, garcia, vanessa, green or brown) and/or eschar (garcia, brown or black) in the wound bed. (Template Last Revised: September 2020) CSEAR
--- NOTE | 2022-05-22 09:26 | CDI ---
Documentation Clarification Form Date: 05/20/2022 09:49:00 AM From: Bree Galaviz Admit Date: 05/07/2022 11:30:00 PM Patient Name: Jeane Urbano Visit Number: [id number] Discharge Date: 05/21/2022 05:39:00 PM ATTENTION: The Clinical Documentation Specialists (CDI) and [facility] Coding Staff appreciate your assistance in clarifying documentation. Please respond to the clarification below the line at the bottom and electronically sign. The CDI & [facility] Coding staff will review the response and follow-up if needed. Please note: Queries are made part of the Legal Health Record. If you have any questions, please contact the author of this message via ITS. Dr. Mohit Harley A right heel pressure ulcer is documented by Nursing 05/10, Integumentary Assessment. Based on this information and the findings below, is there an additional diagnosis that is clinically appropriate for this patient? History/Risk Factors: 62-year-old female presents to the ED with swelling, Altered mental status and hypoxemic on admission. Medical history: CVA, OA, stroke, bed bound and HTN. 05/10, Ortho consult. Clinical Indicators: On 05/10 Integumentary Assessment Location: Right Heel Wound description: Scab Clinical Indicators: On 05/16 Pressure Injury Assessment Location: Right Heel Wound description: Deep Tissue Injury: present on admission Treatment: Elevated, Foam dressing, sheep skin cover Is there an additional diagnosis that is clinically appropriate for this patient? [ ] Right Heel Deep tissue injury [ ] Other condition, please specify [ ] Unable to determine Clinical Definitions: Stage 1 Pressure Ulcer: intact skin, non-blanching redness of local area Stage 2 Pressure Ulcer: Partial thickness, loss of dermis, pink wound bed Stage 3 Pressure Ulcer: Full thickness tissue loss Stage 4 Pressure Ulcer: Full thickness tissue loss with exposed bone, tendon, or muscle. Unstageable pressure ulcer: Full thickness tissue loss in which the base of the ulcer is covered by slough (yellow, garcia, vanessa, green or brown) and/or eschar (garcia, brown or black) in the wound bed. (Template Last Revised: September 2020) MTDD
--- NOTE | 2022-05-22 21:36 | PN ---
PROGRESS NOTE SUBJECTIVE: A 62-year-old female. She had a normal video barium swallow, so she is swallowing appropriately. So we are going to switch her over to Cipro for UTI and aspiration pneumonia. Anemia is being treated with Aranesp. We are waiting to get her seizure medications figured out with Neurology. She is bright, awake. Her morphine pump has been reversed. We need to work on an oral intake. OBJECTIVE: CARDIOVASCULAR: S1, S2. LUNGS: Clear. GI: Soft. HEMATOLOGY: Negative for Homans. PSYCH: Fair mood and affect. ASSESSMENT: Seizure disorder, metabolic encephalopathy secondary to morphine pain pump, aspiration pneumonia, urinary tract infection, generalized weakness. Prognosis Guarded. Home medicines are just seizure medications. We will discharge her home tomorrow and work on her diet. She has been cleared by multiple physicians. MMODL / IJN: [id number] /
--- NOTE | 2022-05-24 14:30 | PN ---
PROGRESS NOTE Gram-negative pneumonia and complete immobility due to frailty, severe debility present on admission. MMODL / IJN: [id number] /
--- NOTE | 2022-05-24 15:05 | PN ---
PROGRESS NOTE ADDENDUM: Coccyx pressure stage II, stage I pressure ulcer to the ankle, and stage II to the sacrum. MMODL / IJN: [id number] /
--- NOTE | 2022-05-26 11:03 | CDI ---
Documentation Clarification Form Date: 05/20/2022 09:49:00 AM From: Bree Galaviz RN CCDS Admit Date: 05/07/2022 11:30:00 PM Patient Name: Jeane Urbano Visit Number: [id number] Discharge Date: 05/21/2022 05:39:00 PM ATTENTION: The Clinical Documentation Specialists (CDI) and [facility] Coding Staff appreciate your assistance in clarifying documentation. Please respond to the clarification below the line at the bottom and electronically sign. The CDI & [facility] Coding staff will review the response and follow-up if needed. Please note: Queries are made part of the Legal Health Record. If you have any questions, please contact the author of this message via ITS. Dr. Mohit Harley A right heel pressure ulcer is documented by Nursing 05/10, Integumentary Assessment. Based on this information and the findings below, is there an additional diagnosis that is clinically appropriate for this patient? History/Risk Factors: 62-year-old female presents to the ED with swelling, Altered mental status and hypoxemic on admission. Medical history: CVA, OA, stroke, bed bound and HTN. 05/10, Ortho consult. Clinical Indicators: On 05/10 Integumentary Assessment Location: Right Heel Wound description: Scab Clinical Indicators: On 05/16 Pressure Injury Assessment Location: Right Heel Wound description: Deep Tissue Injury: present on admission Treatment: Elevated, Foam dressing, sheep skin cover Is there an additional diagnosis that is clinically appropriate for this patient? [ ] Right Heel Deep tissue injury [ ] Other condition, please specify [ ] Unable to determine Clinical Definitions: Stage 1 Pressure Ulcer: intact skin, non-blanching redness of local area Stage 2 Pressure Ulcer: Partial thickness, loss of dermis, pink wound bed Stage 3 Pressure Ulcer: Full thickness tissue loss Stage 4 Pressure Ulcer: Full thickness tissue loss with exposed bone, tendon, or muscle. Unstageable pressure ulcer: Full thickness tissue loss in which the base of the ulcer is covered by slough (yellow, garcia, vanessa, green or brown) and/or eschar (garcia, brown or black) in the wound bed. MTDD
--- NOTE | 2022-05-28 21:44 | P.PN ---
Subjective Progress Note Date: 05/19/22 Principal diagnosis: Right-hand swelling question of cellulitis pneumonia and UTI Patient is a 62-year-old -[place] female with multiple comorbidities and recurrent admission to the hospital presented to hospital with a right hand swelling, patient also does have abnormal x-ray concerning for possiblepneumonia and a positive UA concerning for UTI. On today's evaluation that is 05/19/2022 the patient remains to be afebrile the patient is breathing comfortably on room air no chest pain shortness with or cough no abdominal pain no diarrhea Objective - Vital Signs Vital signs: Vital Signs Temp 98.7 F 05/19/22 20:00 Pulse 103 H 05/19/22 20:00 Resp 19 05/19/22 20:00 BP 115/81 05/19/22 20:00 Pulse Ox 98 05/19/22 20:00 FiO2 Intake & Output 05/19/22 05/19/22 05/20/22 06:59 18:59 06:59 Intake Total 480 Output Total 2 Balance -2 480 Intake: Oral 480 Output: Urine/Stool Mix 2 Other: Voiding Method External Catheter Incontinent # Voids 2 2 # Bowel Movements 2 2 - Exam GENERAL DESCRIPTION: Middle-aged female lying in bed in no distress RESPIRATORY SYSTEM: Unlabored breathing , decreased breath sounds at bases HEART: S1 S2 regular rate and rhythm , ABDOMEN: Soft , no tenderness EXTREMITIES: Right hand swelling and redness has decreased - Labs CBC & Chem 7: 05/21/22 05:44 05/21/22 05:44 Labs: Abnormal Lab Results - Last 24 Hours (Table) 05/16/22 05/19/22 Range/Units 08:03 07:26 Hemoglobin A1 95.2 L (96.5-97.8) % Hemoglobin A2 4.2 H (2.2-3.2) % Chloride 109 H (98-107) mmol/L BUN 45 H (7-17) mg/dL Creatinine 1.84 H (0.52-1.04) mg/dL Calcium 8.2 L (8.4-10.2) mg/dL Assessment and Plan (1) Pneumonia Status: Acute Code(s): J18.9 - PNEUMONIA, UNSPECIFIED ORGANISM SNOMED Code(s): 322247308 (2) UTI (urinary tract infection) Status: Acute Code(s): N39.0 - URINARY TRACT INFECTION, SITE NOT SPECIFIED SNOMED Code(s): 07750194 Plan: 1patient presented to hospital with a right hand forearm swelling and redness with a question of possible cellulitis to the right forearm area from the previous IV site versus thrombophlebitis in this patient currently with no fever or elevated white count Doppler ultrasound was suspicious for a superficial clot in the cephalic vein, overall swelling redness to the right hand has decreased in intensity 2patient with a worsening finding on the chest x-ray and CT concerning for possible aspiration pneumonia. 3positive UA concerning for a UTI from gram-negative pathogen, the patient urine has been finalized and pseudomonas that is sensitive to Zosyn, ultrasound of the kidneys was negative for any hydronephrosis 4Patient has shown clinical improvement continue Zosyn plan to finish therapy with oral Cipro and close outpatient follow-up Time with Patient: Less than 30
--- NOTE | 2022-05-28 21:45 | P.PN ---
Subjective Progress Note Date: 05/20/22 Principal diagnosis: Right-hand swelling question of cellulitis pneumonia and UTI Patient is a 62-year-old -[place] female with multiple comorbidities and recurrent admission to the hospital presented to hospital with a right hand swelling, patient also does have abnormal x-ray concerning for possiblepneumonia and a positive UA concerning for UTI. On today's evaluation that is 05/20/2022 the patient remains to be afebrile, the patient is currently breathing comfortably on room air patient denies having any chest pain or shortness with occasional cough no nausea vomiting abdominal pain no diarrhea swelling and redness right hand and wrist area almost resolved Objective - Vital Signs Vital signs: Vital Signs Temp 98.9 F 05/20/22 14:00 Pulse 86 05/20/22 14:00 Resp 18 05/20/22 14:00 BP 121/85 05/20/22 14:00 Pulse Ox 97 05/20/22 14:00 FiO2 Intake & Output 05/19/22 05/20/22 05/20/22 18:59 06:59 18:59 Intake Total 480 200 Balance 480 200 Intake: Intake, IV Titration 200 Amount Piperacillin-Tazobactam 3 100 .375 gm In Sodium Chloride 0.9% 100 ml @ 25 mls/hr IVPB Q12H [facility] Rx# :[id number] levETIRAcetam IV 750 mg 100 In Sodium Chloride 0.9% 100 ml @ 400 mls/hr IVPB Q24H [facility] Rx#:[id number] Oral 480 Other: Voiding Method Incontinent Incontinent Incontinent # Voids 2 1 3 # Bowel Movements 2 1 1 - Exam GENERAL DESCRIPTION: Middle-aged female lying in bed in no distress RESPIRATORY SYSTEM: Unlabored breathing , decreased breath sounds at bases HEART: S1 S2 regular rate and rhythm , ABDOMEN: Soft , no tenderness EXTREMITIES: Right hand swelling and redness has decreased - Labs CBC & Chem 7: 05/21/22 05:44 05/21/22 05:44 Assessment and Plan (1) Pneumonia Status: Acute Code(s): J18.9 - PNEUMONIA, UNSPECIFIED ORGANISM SNOMED Code(s): 732863962 (2) UTI (urinary tract infection) Status: Acute Code(s): N39.0 - URINARY TRACT INFECTION, SITE NOT SPECIFIED SNOMED Code(s): 02174478 Plan: 1patient presented to hospital with a right hand forearm swelling and redness with a question of possible cellulitis to the right forearm area from the previous IV site versus thrombophlebitis in this patient currently with no fever or elevated white count Doppler ultrasound was suspicious for a superficial clot in the cephalic vein, overall swelling redness to the right hand has decreased in intensity 2patient with a worsening finding on the chest x-ray and CT concerning for possible aspiration pneumonia. 3positive UA concerning for a UTI from gram-negative pathogen, the patient urine has been finalized and pseudomonas that is sensitive to Zosyn, ultrasound of the kidneys was negative for any hydronephrosis 4Patient seem to have shown overall clinical improvement on Zosyn which will be continued while inpatient however no need for IV antibiotic on discharge plan to finish therapy with oral Cipro Time with Patient: Less than 30
--- NOTE | 2022-05-28 21:46 | P.PN ---
Subjective Progress Note Date: 05/21/22 Principal diagnosis: Right-hand swelling question of cellulitis pneumonia and UTI Patient is a 62-year-old -[place] female with multiple comorbidities and recurrent admission to the hospital presented to hospital with a right hand swelling, patient also does have abnormal x-ray concerning for possiblepneumonia and a positive UA concerning for UTI. On today's evaluation that is 05/21/2022 the patient denies any fever or any chills she is currently breathing comfortably on room air denies any chest pain occasional cough no abdominal pain no diarrhea Objective - Vital Signs Vital signs: Vital Signs Temp 98.2 F 05/21/22 07:33 Pulse 90 05/21/22 09:04 Resp 18 05/21/22 09:04 BP 186/94 05/21/22 07:33 Pulse Ox 96 05/21/22 07:33 FiO2 Intake & Output 05/20/22 05/21/22 05/21/22 18:59 06:59 18:59 Intake Total 700 Balance 700 Intake: Intake, IV Titration 300 Amount Piperacillin-Tazobactam 3 200 .375 gm In Sodium Chloride 0.9% 100 ml @ 25 mls/hr IVPB Q8H [facility] Rx#: [id number] levETIRAcetam IV 750 mg 100 In Sodium Chloride 0.9% 100 ml @ 400 mls/hr IVPB Q24H [facility] Rx#:[id number] Oral 400 Other: Voiding Method Incontinent Incontinent Incontinent # Voids 3 1 # Bowel Movements 1 - Exam GENERAL DESCRIPTION: Middle-aged female lying in bed in no distress RESPIRATORY SYSTEM: Unlabored breathing , decreased breath sounds at bases HEART: S1 S2 regular rate and rhythm , ABDOMEN: Soft , no tenderness EXTREMITIES: Right hand swelling and redness has decreased - Labs CBC & Chem 7: 05/21/22 05:44 05/21/22 05:44 Labs: Abnormal Lab Results - Last 24 Hours (Table) 05/21/22 05/21/22 Range/Units 05:44 05:44 WBC 10.09 H (4.50-10.00) X 10*3/uL RBC 3.23 L (4.10-5.20) X 10*6/uL Hgb 8.1 L (12.0-15.0) g/dL Hct 24.6 L (37.2-46.3) % MCV 76.2 L (80.0-97.0) fL MCH 25.1 L (27.0-32.0) pg RDW 22.2 H (11.5-14.5) % Monocytes # 1.30 H (0.20-1.00) X 10*3/uL Eosinophils # 0.62 H (0.04-0.35) X 10*3/uL Chloride 110 H (96-109) mmol/L BUN 40.0 H (9.0-27.0) mg/dL Creatinine 2.2 H (0.6-1.5) mg/dL Est GFR (CKD-EPI)AfAm 26.6 L (60.0-200.0) Est GFR (CKD-EPI)NonAf 22.9 L (60.0-200.0) Total Protein 5.4 L (6.2-8.2) g/dL Albumin 2.8 L (3.8-4.9) g/dL Albumin/Globulin Ratio 1.08 L (1.60-3.17) g/dL Assessment and Plan (1) Pneumonia Status: Acute Code(s): J18.9 - PNEUMONIA, UNSPECIFIED ORGANISM SNOMED Code(s): 131039850 (2) UTI (urinary tract infection) Status: Acute Code(s): N39.0 - URINARY TRACT INFECTION, SITE NOT SPECIFIED SNOMED Code(s): 28955545 Plan: 1patient presented to hospital with a right hand forearm swelling and redness with a question of possible cellulitis to the right forearm area from the pre vious IV site versus thrombophlebitis in this patient currently with no fever or elevated white count Doppler ultrasound was suspicious for a superficial clot in the cephalic vein, overall swelling redness to the right hand has decreased in intensity 2patient with a worsening finding on the chest x-ray and CT concerning for possible aspiration pneumonia. 3positive UA concerning for a UTI from gram-negative pathogen, the patient urine has been finalized and pseudomonas that is sensitive to Zosyn, ultrasound of the kidneys was negative for any hydronephrosis 4Patient seem to have shown overall clinical improvement and has received adequate antibiotic therapy while inpatient Zosyn can be discontinued may consider short course of oral Cipro on discharge Time with Patient: Less than 30
--- NOTE | 2022-06-02 07:02 | PN ---
PROGRESS NOTE Stage II pressure ulcer, partial thickness right heel deep tissue. MMODL / IJN: [id number] /
== END 2022-05-21 17:39 | disposition home or self-care (01) | DRG 682 ==
LOC: EC 20:21 → 4SSUR 23:30
PROVIDERS: ADMIT Family Medicine; ATTEND Family Medicine
PROC: 30233N1 Transfusion of Nonautologous Red Blood Cells into Peripheral Vein, Percutaneous Approach (ICD-10-PCS; principal; 2022-05-15)
PROC: 0JPT0VZ Removal of Infusion Pump from Trunk Subcutaneous Tissue and Fascia, Open Approach (ICD-10-PCS; 2022-05-20)
DX: N17.0 Acute kidney failure with tubular necrosis (principal); G92.8 Other toxic encephalopathy; J96.01 Acute respiratory failure with hypoxia; J15.6 Pneumonia due to other Gram-negative bacteria; R53.2 Functional quadriplegia; I69.354 Hemiplegia and hemiparesis following cerebral infarction affecting left non-dominant side; E46 Unspecified protein-calorie malnutrition; E87.20 Acidosis, unspecified; E87.0 Hyperosmolality and hypernatremia; D62 Acute posthemorrhagic anemia; L89.612 Pressure ulcer of right heel, stage 2; F20.0 Paranoid schizophrenia; J84.9 Interstitial pulmonary disease, unspecified; L03.113 Cellulitis of right upper limb; R22.31 Localized swelling, mass and lump, right upper limb; Z20.822 Contact with and (suspected) exposure to COVID-19; R53.81 Other malaise; E87.5 Hyperkalemia; E78.5 Hyperlipidemia, unspecified; L89.152 Pressure ulcer of sacral region, stage 2; L89.50 Pressure ulcer of unspecified ankle; D63.1 Anemia in chronic kidney disease; I13.10 Hypertensive heart and chronic kidney disease without heart failure, with stage 1 through stage 4 chronic kidney disease, or unspecified chronic kidney disease; G89.4 Chronic pain syndrome; Y95 Nosocomial condition; N30.90 Cystitis, unspecified without hematuria; M10.9 Gout, unspecified; K21.9 Gastro-esophageal reflux disease without esophagitis; I12.9 Hypertensive chronic kidney disease with stage 1 through stage 4 chronic kidney disease, or unspecified chronic kidney disease; N18.30 Chronic kidney disease, stage 3 unspecified; M19.90 Unspecified osteoarthritis, unspecified site; F32.A Depression, unspecified; E03.9 Hypothyroidism, unspecified; T40.2X5A Adverse effect of other opioids, initial encounter; E87.8 Other disorders of electrolyte and fluid balance, not elsewhere classified; E87.70 Fluid overload, unspecified; G40.909 Epilepsy, unspecified, not intractable, without status epilepticus; E86.0 Dehydration; B96.5 Pseudomonas (aeruginosa) (mallei) (pseudomallei) as the cause of diseases classified elsewhere; Z74.01 Bed confinement status; Z79.82 Long term (current) use of aspirin; Z79.890 Hormone replacement therapy; Z79.899 Other long term (current) drug therapy; Z87.891 Personal history of nicotine dependence
CPT/HCPCS: 36415; 70450; 71046; 71250; 74230; 76604; 76770; 78580; 80048; 80053; 81001; 82550; 83021; 83540; 83550; 83605; 83735; 83880; 84132; 84145; 84443; 84484; 85025; 85379; 85610; 85730; 86140; 86850; 86900; 86901; 86920; 87040; 87077; 87086; 87186; 87324; 87502; 87635; 93005; 96365; 96375; 99285

== ENCOUNTER → 2022-06-30 | Outpatient (CLI) | payer OTHER ==
[2022-06-30 16:14] LABS: Anisocytosis Slight; Basophils % (A) 0 %; Eosinophils # (A) 0.2 k/uL (0-0.7); Eosinophils % (A) 2 %; HCT 35.8 % (34.0-46.0); Hypochromasia Moderate; Lymphocytes # (A) 3.1 k/uL (1.0-4.8); Lymphocytes % (A) 35 %; MCH 25.2 pg (25.0-35.0); MCHC 31.2 g/dL (31.0-37.0); MCV 80.6 fL (80.0-100.0); Mean Platelet Volume 9.7; Microcytosis Slight; Monocytes % (A) 11 %; Neutrophils # (A) 4.4 k/uL (1.3-7.7); Neutrophils % (A) 49 %; Platelet Count 230 k/uL (150-450); RBC 4.45 m/uL (3.80-5.40); RDW 17.1 % (11.5-15.5); WBC 8.9 k/uL (3.8-10.6)
[2022-06-30 16:15] LABS: HGB 11.2 gm/dL (11.4-16.0)
[2022-07-02 04:39] LABS: % Iron Saturation 23.01 (12.00-45.00)
[2022-07-02 04:49] LABS: African American GFR (CKD) 31.1 (60.0-200.0); Albumin 3.6 g/dL (3.8-4.9); Albumin/Globulin Ratio 0.95 (1.60-3.17); Anion Gap 16.8 mmol/L (10.00-18.00); BUN/Creat Ratio 23.73 Ratio (12.00-20.00); Blood Urea Nitrogen 45.8 mg/dL (9.0-27.0); Carbon Dioxide 23.8 mmol/L (20.0-27.5); Globulin 3.7 g/dL (1.6-3.3); Non-African American GFR(CKD) 26.9 (60.0-200.0); Potassium 4.6 mmol/L (3.5-5.5); Total Bilirubin 0.3 mg/dL (0.30-1.20); Total Protein 7.3 g/dL (6.2-8.2)
== END | disposition home or self-care (01) ==
LOC: LABWHC1 14:16
PROVIDERS: ATTEND Internal Medicine
DX: D50.9 Iron deficiency anemia, unspecified (principal)
CPT/HCPCS: 36415; 80053; 82607; 82668; 82728; 82746; 83540; 83550; 85025

== ENCOUNTER 2022-07-03 13:59 | Inpatient (IN) | payer OTHER ==
[2022-07-03] MEDS ORDERED: SODIUM CHLORIDE 0.9% 500 ML 500 ML IV ONE (14:25)
[2022-07-03] MEDS ORDERED: NALOXONE 0.4 MG/ML 1 ML VIAL IVP STA (14:25)
[2022-07-03 15:44] LABS: Anisocytosis Slight; Basophils % (A) 0 %; Eosinophils # (A) 0.1 k/uL (0-0.7); Eosinophils % (A) 1 %; HCT 30.5 % (34.0-46.0); Hypochromasia Marked; Lymphocytes # (A) 1.9 k/uL (1.0-4.8); Lymphocytes % (A) 18 %; MCH 25.2 pg (25.0-35.0); MCV 81.5 fL (80.0-100.0); Mean Platelet Volume 8.6; Microcytosis Slight; Monocytes # (A) 0.9 k/uL (0-1.0); Monocytes % (A) 9 %; Neutrophils # (A) 7.3 k/uL (1.3-7.7); Neutrophils % (A) 70 %; Platelet Count 301 k/uL (150-450); RBC 3.75 m/uL (3.80-5.40); RDW 17.6 % (11.5-15.5); WBC 10.5 k/uL (3.8-10.6)
[2022-07-03 15:45] LABS: HGB 9.5 gm/dL (11.4-16.0)
[2022-07-03 15:54] LABS: Albumin 3.5 g/dL (3.5-5.0); Partial Thromboplastin Time 22.5 sec (22.0-30.0); Total Bilirubin 0.4 mg/dL (0.2-1.3); Total Protein 7.4 g/dL (6.3-8.2)
--- NOTE | 2022-07-03 16:33 | XR ---
EXAMINATION TYPE: XR chest 2V DATE OF EXAM: 07/03/2022 COMPARISON: 05/07/2022 HISTORY: Shortness of breath TECHNIQUE: Frontal and lateral views of the chest are obtained. FINDINGS: Scattered senescent parenchymal changes noted. Hyperinflation compatible with COPD. No evidence for infiltrate. No evidence for atelectasis. Pulmonary venous congestion with borderline cardiomegaly and mild interstitial edema. No sizable effu yokasta. Interstitial infiltrates of other etiology not excluded. Mediastinal structures are stable and grossly unremarkable. No evidence for hilar prominence. Degenerative changes dorsal spine. IMPRESSION: 1. Pulmonary venous congestion with borderline cardiomegaly and mild interstitial edema. No sizable e ffusion. Interstitial infiltrates of other etiology not excluded.
--- NOTE | 2022-07-03 16:48 | CT ---
EXAMINATION TYPE: CT brain wo con CT DLP: 1211.4 mGycm, Automated exposure control for dose reduction was used. DATE OF EXAM: 07/03/2022 4:41 PM COMPARISON: Brain 03/05/2020 04/24/2022. CLINICAL INDICATION:Female, 62 years old with history of Altered mental status, AMS. Hx CVA, brain an eurysm TECHNIQUE: Brain: Axial CT images of the brain were obtained with coronal and sagittal reformats created and rev iewed. Contrast used: None. Oral contrast used: None. FINDINGS: Brain: Extra-axial spaces: No abnormal extra-axial fluid collections. Ventricular system: Within normal limits Cerebral parenchyma: Remote right MCA territory infarct with encephalomalacia. This involves predomin antly the right temporal and parietal lobes. No acute intraparenchymal hemorrhage or mass effect. Th e remainder of the vanessa-white junctions are well differentiated. Scattered hypoattenuating areas are seen within the white matter. Cerebellum: Unremarkable. Mass effect: No evidence of midline shift. Intracranial vasculature: Postsurgical changes with clips in the left middle cranial fossa. Atheroscl erosis of the intracranial vasculature. Soft tissues: Normal. Calvarium/osseous structures: No depressed skull fracture. Paranasal sinuses and mastoid air cells: Mild scattered paranasal sinus disease. Visualized orbits: Orbital contents are intact. IMPRESSION: 1. No acute intracranial process. No significant change from prior. 2. Right MCA territory encephalomalacia from remote injury.
[2022-07-03] MEDS ORDERED: SODIUM CHLORIDE 0.9% 1,000 ML IV ONE (17:31)
--- NOTE | 2022-07-03 17:31 | ED ---
Altered Mental Status HPI - General Chief Complaint: Altered Mental Status Stated Complaint: AMS Time Seen by Provider: 07/03/22 14:08 Source: patient, family, EMS, RN notes reviewed, old records reviewed Mode of arrival: EMS Limitations: altered mental status - History of Present Illness Initial Comments: This a 62-year-old female with past medical history significant for stroke patient had a change in her pain pump recently and family found her to be considerably less responsive than normal. Family states that this happened in the past and it was because it was giving too much pain medication so they had to bring her and have the pain pump turned down. There is been no recent history of fever chills there's been no history of any vomiting or diarrhea. There's been no problems with breathing there's no points of any pain. According to family she just seems more lethargic and patient is arousable and alert and oriented 2 but states she has no complaints at this time MD Complaint: decreased responsiveness - Related Data Home Medications Medication Instructions Recorded Confirmed Aspirin EC [Ecotrin Low Dose] 81 mg PO DAILY 04/12/16 07/03/22 Omeprazole [PriLOSEC] 20 mg PO DAILY 02/09/20 07/03/22 Divalproex [Depakote] 500 mg PO DAILY 02/20/22 07/03/22 Levothyroxine Sodium [Synthroid] 75 mcg PO DAILY 02/20/22 07/03/22 Divalproex [Depakote] 250 mg PO HS 04/24/22 07/03/22 Buprenorphine [Butrans 5 MCG/HR] 1 patch TRANSDERM FR 07/03/22 07/03/22 Lacosamide [Vimpat] 100 mg PO BID 07/03/22 07/03/22 Metoprolol Tartrate [Lopressor] 100 mg PO BID 07/03/22 07/03/22 Ondansetron Odt [Zofran Odt] 4 mg PO Q8HR PRN 07/03/22 07/03/22 Sertraline [Zoloft] 25 mg PO DAILY 07/03/22 07/03/22 Sertraline [Zoloft] 100 mg PO DAILY 07/03/22 07/03/22 Sodium Bicarbonate Tab 650 mg PO BID 07/03/22 07/03/22 dronabinoL [Marinol] 2.5 mg PO AC-BID 07/03/22 07/03/22 haloperidoL [Haldol] 2.5 mg PO BID 07/03/22 07/03/22 risperiDONE [RisperDAL] 1 mg PO HS 07/03/22 07/03/22 Previous Rx's Medication Instructions Recorded Atorvastatin [Lipitor] 20 mg PO HS #30 tab 02/13/20 Furosemide [Lasix] 40 mg PO DAILY 90 Days #90 tab 05/21/22 Allergies Allergy/AdvReac Type Severity Reaction Status Date / Time No Known Allergies Allergy Verified 07/03/22 16:01 Review of Systems ROS Statement: Those systems with pertinent positive or pertinent negative responses have been documented in the HPI. ROS Other: All systems not noted in ROS Statement are negative. 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 gout, PANCREATITIS, pseudoseizures, UTI, gallstones, tremors, hx multiple brain aneursyms History of Any Multi-Drug Resistant Organisms: None Reported Date of last positivie culture/infection: 03/18/18 ESBL E.coli MDRO Source:: Urine Past Surgical History: Section, Cholecystectomy, Orthopedic Surgery Additional Past Surgical History / Comment(s): hx aneurysms- COILS AND STENTS TO BRAIN, repair tendons r/t gout BILATERAL FEET; Pain pump inserted on 04/21/22 Past Anesthesia/Blood Transfusion Reactions: No Reported Reaction Additional Past Anesthesia/Blood Transfusion Reaction / Comment(s): PT HAS HAD BLOOD TRANSFUSIONS FOR ANEMIA-NO REACTION. Past Psychological History: Anxiety, Depression, Schizophrenia Smoking Status: Former smoker - Past Family History Sister(s) Family Medical History: Myocardial Infarction (ME) Father Family Medical History: Cancer Additional Family Medical History / Comment(s): throat, lung, and rectal cancer Mother Family Medical History: Myocardial Infarction (ME) Additional Family Medical History / Comment(s): stroke General Exam - General Exam Comments Initial Comments: GENERAL: Patient is well-developed and well-nourished. Patient is nontoxic and well- hydrated and is in no acute distress. She was very lethargic and will wake up to look at to answer very basic questions but will fall asleep quickly ENT: Neck is soft and supple. No significant lymphadenopathy is noted. Oropharynx is clear. Moist mucous membranes. Neck has full range of motion without eliciting any pain. EYES: The sclera were anicteric and conjunctiva were pink and moist. Extraocular movements were intact and pupils were equal round and reactive to light. Eyelids were unremarkable. PULMONARY: Unlabored respirations. Good breath sounds bilaterally. No audible rales rhonchi or wheezing was noted. CARDIOVASCULAR: There is a regular rate and rhythm without any murmurs gallops or rubs. ABDOMEN: Soft and nontender with normal bowel sounds. SKIN: Skin is clear with no lesions or rashes and otherwise unremarkable. NEUROLOGIC: Patient is alert and oriented 2. Unable to complete her neurologic exam secondary to patient's lethargy and fall asleep quickly. MUSCULOSKELETAL: Patient is on able to move the left side. LYMPHATICS: No significant lymphadenopathy is noted PSYCHIATRIC: Patient is too lethargic to talk to me to evaluate Limitations: altered mental status Course Vital Signs 07/03/22 07/03/22 14:05 15:07 Temperature 97.6 F Pulse Rate 82 Respiratory 10 L 8 L Rate Blood Pressure 127/66 O2 Sat by Pulse 91 L Oximetry Medical Decision Making - Medical Decision Making Patient was given 0.2 mg of Narcan and she was immediately became much more alert. We spoke with the patient's neurologist and they will send someone in to turn down the dosage on the patient's pain pump. Family agrees that this needs to be done. I spoke with Dr. Harley he agreed to admit the patient admitted the patient I wrote admitting orders. I interpret EKG EKG shows sinus rhythm at 70 bpm NC interval 260 QRS 89 2 tablets 389 QTC is 423. Patient's EKG shows no ST segment elevation or depression. - Lab Data Result diagrams: 07/03/22 15:38 07/03/22 15:38 Lab Results 07/03/22 07/03/22 07/03/22 Range/Units 15:38 15:38 15:38 WBC 10.5 (3.8-10.6) k/uL RBC 3.75 L (3.80-5.40) m/uL Hgb 9.5 L D (11.4-16.0) gm/dL Hct 30.5 L (34.0-46.0) % MCV 81.5 (80.0-100.0) fL MCH 25.2 (25.0-35.0) pg MCHC 31.0 (31.0-37.0) g/dL RDW 17.6 H (11.5-15.5) % Plt Count 301 (150-450) k/uL MPV 8.6 Neutrophils % 70 % Lymphocytes % 18 % Monocytes % 9 % Eosinophils % 1 % Basophils % 0 % Neutrophils # 7.3 (1.3-7.7) k/uL Lymphocytes # 1.9 (1.0-4.8) k/uL Monocytes # 0.9 (0-1.0) k/uL Eosinophils # 0.1 (0-0.7) k/uL Basophils # 0.0 (0-0.2) k/uL Hypochromasia Marked Anisocytosis Slight Microcytosis Slight PT 11.0 (9.0-12.0) sec INR 1.0 (<1.2) APTT 22.5 (22.0-30.0) sec Sodium 141 (137-145) mmol/L Potassium 5.0 (3.5-5.1) mmol/L Chloride 102 (98-107) mmol/L Carbon Dioxide 29 (22-30) mmol/L Anion Gap 10 mmol/L BUN 48 H (7-17) mg/dL Creatinine 2.59 H (0.52-1.04) mg/dL Est GFR (CKD-EPI)AfAm 22 (>60 ml/min/1.73 sqM) Est GFR (CKD-EPI)NonAf 19 (>60 ml/min/1.73 sqM) Glucose 111 H (74-99) mg/dL Calcium 9.0 (8.4-10.2) mg/dL Total Bilirubin 0.4 (0.2-1.3) mg/dL AST 37 H (14-36) U/L ALT 16 (4-34) U/L Alkaline Phosphatase 102 (38-126) U/L Troponin I (0.000-0.034) ng/mL Total Protein 7.4 (6.3-8.2) g/dL Albumin 3.5 (3.5-5.0) g/dL 07/03/22 Range/Units 15:38 WBC (3.8-10.6) k/uL RBC (3.80-5.40) m/uL Hgb (11.4-16.0) gm/dL Hct (34.0-46.0) % MCV (80.0-100.0) fL MCH (25.0-35.0) pg MCHC (31.0-37.0) g/dL RDW (11.5-15.5) % Plt Count (150-450) k/uL MPV Neutrophils % % Lymphocytes % % Monocytes % % Eosinophils % % Basophils % % Neutrophils # (1.3-7.7) k/uL Lymphocytes # (1.0-4.8) k/uL Monocytes # (0-1.0) k/uL Eosinophils # (0-0.7) k/uL Basophils # (0-0.2) k/uL Hypochromasia Anisocytosis Microcytosis PT (9.0-12.0) sec INR (<1.2) APTT (22.0-30.0) sec Sodium (137-145) mmol/L Potassium (3.5-5.1) mmol/L Chloride (98-107) mmol/L Carbon Dioxide (22-30) mmol/L Anion Gap mmol/L BUN (7-17) mg/dL Creatinine (0.52-1.04) mg/dL Est GFR (CKD-EPI)AfAm (>60 ml/min/1.73 sqM) Est GFR (CKD-EPI)NonAf (>60 ml/min/1.73 sqM) Glucose (74-99) mg/dL Calcium (8.4-10.2) mg/dL Total Bilirubin (0.2-1.3) mg/dL AST (14-36) U/L ALT (4-34) U/L Alkaline Phosphatase (38-126) U/L Troponin I 0.018 (0.000-0.034) ng/mL Total Protein (6.3-8.2) g/dL Albumin (3.5-5.0) g/dL Disposition Clinical Impression: Anemia, Decreased responsiveness, Opiate overdose Disposition: ADMITTED IP TO THIS [facility] Referrals: Mohit Harley MD [Primary Care Provider] - 1-2 days Time of Disposition: 17:31
[2022-07-03] MEDS ORDERED: NALOXONE 0.4 MG/ML 1 ML VIAL IVP PRN (17:33)
[2022-07-04] MEDS ORDERED: ONDANSETRON ODT 4 MG TAB PO PRN (01:10)
[2022-07-04] MEDS: SODIUM BICARBONATE TAB 650 MG TAB PO SCH ×3 (02:06→20:26)
[2022-07-04] MEDS: LACOSAMIDE 50 MG TABLET PO SCH ×3 (02:06→20:26)
[2022-07-04] MEDS: haloperidoL 5 MG TAB PO SCH ×3 (02:06→20:26)
[2022-07-04] MEDS: LEVOTHYROXINE 75 MCG TAB PO SCH (06:41)
[2022-07-04] MEDS: PANTOPRAZOLE 40 MG TABLET PO SCH ×2 (08:55→09:32)
[2022-07-04] MEDS: SERTRALINE 100 MG TAB PO SCH (08:55)
[2022-07-04] MEDS: SERTRALINE 25 MG TAB PO SCH ×2 (08:55→09:32)
[2022-07-04] MEDS: METOPROLOL TARTRATE 50 MG TAB PO SCH ×3 (08:56→20:26)
[2022-07-04] MEDS: DIVALPROEX 500 MG TABLET.DR PO SCH ×2 (08:56→09:32)
[2022-07-04] MEDS: FUROSEMIDE 40 MG TAB PO SCH ×2 (08:56→09:32)
--- NOTE | 2022-07-04 16:43 | P.CNNES ---
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 Some of the history is obtained from medical record as well as the patient's nurse. Patient is known to our neurology team. According to the nurse who spoke with the family the patient was less responsive at home and is seems that her pain pump has been modified recently and was increased. It seems that the patient gets multiple pain medications at home upon talking to her. She does follow up with a neurologist as an outpatient (and seems Dr. Koch). The family notified the nurse that no seizure-like activity was witnessed. She's been more responsive in the hospital. Regarding her seizure the patient is on Vimpat 100 mg 1 tablet twice a day, she is also on Depakote which is a mood stabilizer as well as has antiepileptic benefit. She had multiple EEGs in our facility. She was last seen by our neurology team on 04/25/2022 for confusion. Please refer to our notes for further details. Some of the workup during this hospital visit consisted of: On initial presentation the patient's respiratory was 10 and became an 8. The blood pressure was 127/66, pulse ox was 91% room air temperature was 97.6 and oral the heart rate was 82. Patient's respiratory has improved the 214-18 breaths per minute. Creatinine is 2.59 BUN is 48 otherwise sodium calcium ALT is within normal limit s. Review of Systems Review of system: The 12 point system was reviewed and apparent positive and negative per HPI. 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 gout, PANCREATITIS, pseudoseizures, UTI, gallstones, tremors, hx multiple brain aneursyms History of Any Multi-Drug Resistant Organisms: None Reported Date of last positivie culture/infection: 03/18/18 ESBL E.coli MDRO Source:: Urine Past Surgical History: Section, Cholecystectomy, Orthopedic Surgery Additional Past Surgical History / Comment(s): hx aneurysms- COILS AND STENTS TO BRAIN, repair tendons r/t gout BILATERAL FEET; Pain pump inserted on 04/21/22 Past Anesthesia/Blood Transfusion Reactions: No Reported Reaction Additional Past Anesthesia/Blood Transfusion Reaction / Comment(s): PT HAS HAD BLOOD TRANSFUSIONS FOR ANEMIA-NO REACTION. Past Psychological History: Anxiety, Depression, Schizophrenia Additional Psychological History / Comment(s): paranoid schizophrenia Smoking Status: Former smoker Past Alcohol Use History: Abuse, Heavy Additional Past Alcohol Use History / Comment(s): Stopped smoking 2010 Past Drug Use History: Cocaine Additional Drug Use History / Comment(s): No current use. Last used 17 yrs ago. - Past Family History Sister(s) Family Medical History: Myocardial Infarction ([place]) Father Family Medical History: Cancer Additional Family Medical History / Comment(s): throat, lung, and rectal cancer Mother Family Medical History: Myocardial Infarction ([place]) Additional Family Medical History / Comment(s): stroke Medications and Allergies Home Medications Medication Instructions Recorded Confirmed Type Aspirin EC [Ecotrin Low Dose] 81 mg PO DAILY 04/12/16 07/03/22 History Omeprazole [PriLOSEC] 20 mg PO DAILY 02/09/20 07/03/22 History Atorvastatin [Lipitor] 20 mg PO HS #30 tab 02/13/20 07/03/22 Rx Divalproex [Depakote] 500 mg PO DAILY 02/20/22 07/03/22 History Levothyroxine Sodium [Synthroid] 75 mcg PO DAILY 02/20/22 07/03/22 History Divalproex [Depakote] 250 mg PO HS 04/24/22 07/03/22 History Furosemide [Lasix] 40 mg PO DAILY 90 Days #90 tab 05/21/22 07/03/22 Rx Buprenorphine [Butrans 5 MCG/HR] 1 patch TRANSDERM FR 07/03/22 07/03/22 History Lacosamide [Vimpat] 100 mg PO BID 07/03/22 07/03/22 History Metoprolol Tartrate [Lopressor] 100 mg PO BID 07/03/22 07/03/22 History Ondansetron Odt [Zofran Odt] 4 mg PO Q8HR PRN 07/03/22 07/03/22 History Sertraline [Zoloft] 25 mg PO DAILY 07/03/22 07/03/22 History Sertraline [Zoloft] 100 mg PO DAILY 07/03/22 07/03/22 History Sodium Bicarbonate Tab 650 mg PO BID 07/03/22 07/03/22 History dronabinoL [Marinol] 2.5 mg PO AC-BID 07/03/22 07/03/22 History haloperidoL [Haldol] 2.5 mg PO BID 07/03/22 07/03/22 History risperiDONE [RisperDAL] 1 mg PO HS 07/03/22 07/03/22 History Allergies Allergy/AdvReac Type Severity Reaction Status Date / Time No Known Allergies Allergy Verified 07/03/22 16:01 Physical Examination - Vital Signs Vital Signs: Vital Signs Temp Pulse Pulse Resp BP BP Pulse Ox 07/04/22 16:00 85 125/74 98 07/04/22 11:48 81 14 109/71 98 07/04/22 09:00 114/69 07/04/22 08:02 98.3 F 85 16 104/62 96 07/04/22 06:45 88 18 100/58 97 07/04/22 05:24 98.4 F 72 15 94/57 98 07/04/22 03:39 75 14 98/61 98 07/04/22 00:53 71 14 99/56 98 07/03/22 22:32 76 16 106/76 99 07/03/22 20:00 82 15 118/61 98 07/03/22 18:37 75 16 82/38 95 07/03/22 18:30 8 L 07/03/22 17:55 97.5 F L 78 14 94/37 97 Intake and Output 07/04/22 07/04/22 07/04/22 06:59 14:59 22:59 Intake Total 350 Balance 350 Intake: IV 350 Sodium Chloride 0.9% 1, 350 000 ml @ 50 mls/hr IV . Q20H ONE Rx#:[id number] Other: Voiding Method External Catheter Weight 45.359 kg GENERAL: The patient is lying in bed and is not in acute distress. CHEST: The heart rate is regular rate rhythm. No murmurs to auscultation. LUNG: Clear to auscultation bilaterally no wheezing noted throughout. Not labored breathing. ABDOMEN/GI: Bowel sounds present in all 4 quadrants. No tenderness to palpation throughout. NEUROLOGICAL: Higher mental function: The patient is awake, alert, oriented to self. She stated she was in the hospital. She stated the month is June. Stated year is 2019. Patient is following simple commands. No aphasia and no neglect. Cranial nerves: The pupils are round, equal and reactive to light. Visual campoverde are full to confrontation throughout. Extraocular movement is intact no nystagmus is noted. Facial sensation is normal to touch throughout. The facial strength is normal throughout. Hearing is moderately decrease to hand rub. Tongue is midline and moved [id number] without any difficulty. No dysarthria is noted. Shoulder shrug is normal on right. Motor: The strength is 5 over 5 throughout right side but is spastic over the left side. Cerebellum: Normal finger to nose on right. Sensation: Sensation is normal to touch throughout. Reflexes (right/left): 1+ throughout right side and slightly brisk over left. Plantars is mute over the right and upgoing over the left.are downgoing bilaterally. Results - Laboratory Findings CBC and BMP: 07/03/22 15:38 07/03/22 15:38 Abnormal Lab Findings: Abnormal Labs 07/03/22 07/03/22 15:38 15:38 RBC 3.75 L Hgb 9.5 L D Hct 30.5 L RDW 17.6 H BUN 48 H Creatinine 2.59 H Glucose 111 H AST 37 H Assessment and Plan Assessment: Altered mental status and it's probably due to her pain pump/opiate use--toxic encephalopathy Bradypnea likely due to opiate use---improved History of right MCA stroke with residual left hemiplegia History of seizure History of brain aneurysm status post postsurgical coiling over the left MCA Plan: Patient home medication of Vimpat 100 mg 1 tablet twice a day as well as her Depakote is resumed it seems that she's taking 250 mg at nighttime and 500mg daily and not sure if was modified by her neurologist. March 2022 was recommended for her to be on her home dose of Depakote 500 the morning and 750 mg at bedtime and if she continues to have seizures I would recommend resuming that dose unless has side-effects and can increase Lamictal to 150mg bid if any further seizure. If patient has any further confusions I recommend getting a routine EEG and if it is she continues to be a baseline then recommend 2-1/2 hour EEG as an outpatient. Continue neuro checks Primary team consulted pain specialist to reverse the pain pump Placed on seizure precautions seizure pads Please avoid overuse of the opiates. We'll defer the rest of the medical management to primary team. Plan was discussed with the patient and her nurse Thank you for the consultation. Dr. Hernandez will start neurology service tomorrow a.m. then proceeded by Dr. Spivey this Thursday a.m. Time with Patient: Greater than 30
[2022-07-04] MEDS: IPRATROPIUM-ALBUTEROL 3 ML NEB INHALATION SCH (19:37)
[2022-07-04 20:11] LABS: % Iron Saturation 30.86 (12.00-45.00)
[2022-07-04] MEDS: risperiDONE 1 MG TAB PO SCH (20:26)
[2022-07-04] MEDS: ATORVASTATIN 20 MG TAB PO SCH (20:26)
[2022-07-04] MEDS: DIVALPROEX 250 MG TABLET.DR PO SCH (20:26)
[2022-07-05] MEDS: LEVOTHYROXINE 75 MCG TAB PO SCH (06:46)
[2022-07-05 07:49] LABS: Appearance,Urine Cloudy (Clear); Bacteria,Urine Rare /hpf; Bilirubin,Urine Negative (Negative); Blood,Urine Negative (Negative); Color,Urine Yellow; Glucose,Urine (UA) Negative (Negative); Ketones,Urine Trace (Negative); Leukocyte Esterase,Urine Large (Negative); Mucus,Urine Rare /hpf; Nitrite,Urine Negative (Negative); PH, Urine 5.5 (5.0-8.0); Protein,Urine Trace (Negative); RBC,Urine 1 /hpf (0-5); Specific Gravity,Urine 1.018 (1.001-1.035); Squamous Epithelial Cell,Urine 8 /hpf (0-4); Urobilinogen,Urine <2.0 mg/dL (<2.0); WBC,Urine 29 /hpf (0-5)
[2022-07-05] MEDS: haloperidoL 5 MG TAB PO SCH ×2 (08:56→20:38)
[2022-07-05] MEDS: SERTRALINE 25 MG TAB PO SCH (08:57)
[2022-07-05] MEDS: LACOSAMIDE 50 MG TABLET PO SCH ×2 (08:57→20:38)
[2022-07-05] MEDS: SERTRALINE 100 MG TAB PO SCH (08:57)
[2022-07-05] MEDS: FUROSEMIDE 40 MG TAB PO SCH (08:57)
[2022-07-05] MEDS: DIVALPROEX 500 MG TABLET.DR PO SCH (08:57)
[2022-07-05] MEDS: METOPROLOL TARTRATE 50 MG TAB PO SCH ×2 (08:57→20:38)
[2022-07-05] MEDS: PANTOPRAZOLE 40 MG TABLET PO SCH (08:57)
[2022-07-05] MEDS: SODIUM BICARBONATE TAB 650 MG TAB PO SCH ×2 (08:57→20:38)
--- NOTE | 2022-07-05 09:18 | HP ---
HISTORY AND PHYSICAL HISTORY OF PRESENT ILLNESS: A 62-year-old woman, who has had a right MCA stroke with left hemiplegia, seizure, brain aneurysm. the left MCA pain pump, presented with altered mental status due to possible Dilaudid and took the pain pump, which was reversed last night. She sees no seizures at home. She has been more responsive in the hospital after pain pump has been reversed. She is on Vimpat twice a day, Depakote. REVIEW OF SYSTEMS: A 14-point review of systems otherwise negative. PAST MEDICAL HISTORY: CVA, TIA, hypertension, dyslipidemia, osteoarthritis, pseudoseizures, pancreatitis, UTI, gallstones, tremors, brain aneurysms, ESBL E coli. PAST SURGICAL HISTORY: , cholecystectomy, orthopedic surgery. PSYCHIATRIC HISTORY: Anxiety, depression, schizophrenia. SOCIAL HISTORY: Heavy abuse of alcohol. Former smoker. History of cocaine. FAMILY HISTORY: Sister, myocardial infarction. Father, cancer, throat and rectal. Mother, myocardial infarction. MEDICATIONS: Home medications are reviewed. ALLERGIES: Negative. PHYSICAL EXAMINATION: VITAL SIGNS: Pulse is 70s to 80s, blood pressure 120s over 70s, O2 of 96% to 98%, pulse 70s to 80s, temp 97 to 98. HEENT: Normocephalic, atraumatic. CARDIOVASCULAR: S1, S2. LUNGS: Clear. PSYCH: Fair mood, affect. Giving appropriate answers. MUSCULOSKELETAL: 3 to 4/5 strength x4. ASSESSMENT: Altered mental status secondary to pain pump, opioid use, toxic encephalopathy, history of right middle cerebral artery stroke with residual hemiparesis, seizures, brain aneurysm. Continue on Vimpat, Depakote. Home medicines obtained heart failure to clear this out as she has pump. Continue for seizures PT, OT. Possibly send home . MMODL / IJN: [id number] /
[2022-07-05] MEDS: IPRATROPIUM-ALBUTEROL 3 ML NEB INHALATION SCH ×3 (09:20→19:35)
[2022-07-05 10:10] LABS: Anisocytosis Slight; Basophils % (A) 0 %; Eosinophils # (A) 0.1 k/uL (0-0.7); Eosinophils % (A) 1 %; HCT 24.8 % (34.0-46.0); Hypochromasia Marked; Lymphocytes # (A) 2.1 k/uL (1.0-4.8); Lymphocytes % (A) 22 %; MCH 26.1 pg (25.0-35.0); MCHC 32.2 g/dL (31.0-37.0); MCV 80.9 fL (80.0-100.0); Mean Platelet Volume 8.2; Microcytosis Slight; Monocytes # (A) 0.8 k/uL (0-1.0); Monocytes % (A) 9 %; Neutrophils # (A) 6.4 k/uL (1.3-7.7); Neutrophils % (A) 66 %; Platelet Count 263 k/uL (150-450); RBC 3.06 m/uL (3.80-5.40); RDW 17.3 % (11.5-15.5); WBC 9.7 k/uL (3.8-10.6)
[2022-07-05 11:03] LABS: Albumin 2.8 g/dL (3.5-5.0); Calcium 8.6 mg/dL (8.4-10.2); Potassium 4.5 mmol/L (3.5-5.1); Total Bilirubin 0.3 mg/dL (0.2-1.3)
[2022-07-05] MEDS: ATORVASTATIN 20 MG TAB PO SCH (20:38)
[2022-07-05] MEDS: DIVALPROEX 250 MG TABLET.DR PO SCH (20:38)
[2022-07-05] MEDS: risperiDONE 1 MG TAB PO SCH (20:38)
--- NOTE | 2022-07-05 23:00 | PN ---
PROGRESS NOTE SUBJECTIVE: A 62-year-old white female who came in with altered mental status. Her pain pump was reversed. OBJECTIVE: VITAL SIGNS: She is saturating 100% on 1 L, blood pressure is 120/87, temp 98, pulse 82, respiratory rate 20. LABORATORY DATA: Reviewed. Hemoglobin 8.0, white count 9.7. BUN is 47, creatinine is 2.0. Liver enzymes are elevated at 73 and AST, total protein 6, albumin is 2.8, procalcitonin 0.28. UA shows large leukocyte esterase and white cells. Suspect UTI. Continue with antibiotics for possible UTI. We will give her like Rocephin and continue to monitor. Wait for urine culture. Prognosis is guarded. MMODL / IJN: [id number] /
[2022-07-06] MEDS: LEVOTHYROXINE 75 MCG TAB PO SCH (06:42)
[2022-07-06] MEDS: IPRATROPIUM-ALBUTEROL 3 ML NEB INHALATION SCH ×3 (08:32→19:52)
--- NOTE | 2022-07-06 09:29 | CT ---
EXAMINATION TYPE: CT chest wo con DATE OF EXAM: 07/06/2022 COMPARISON: 05/08/2022 HISTORY: cap. AMS/poor historian CT DLP: 229.[address] of the chest was performed with lung and mediastinal window settings submitted. The la ck of contrast limits evaluation of the vascular, mediastinal and parenchymal structures including th e upper abdomen. LUNGS: Groundglass infiltrates throughout both lung campoverde persist although have improved since the p rior examination. More confluent density right lower lobe may reflect atelectasis or infiltrate. Smal l partially loculated right basilar pleural effusion. Dependent atelectasis left lung base. MEDIASTINUM/FARHEEN: Thoracic aorta is of normal caliber with limited evaluation given lack of contrast . The heart is mildly enlarged. Dense coronary artery calcifications present. No evidence for media stinal mass. No lymph nodes greater than 1cm. UPPER ABDOMEN: No significant abnormality is seen. OTHER: No significant other abnormality. IMPRESSION: 1. Groundglass infiltrates throughout both lung campoverde persist although have improved since the prio r examination. More confluent density right lower lobe may reflect atelectasis or infiltrate. Small p artially loculated right basilar pleural effusion.
[2022-07-06] MEDS: haloperidoL 5 MG TAB PO SCH ×2 (09:41→20:28)
[2022-07-06] MEDS: SERTRALINE 100 MG TAB PO SCH (09:41)
[2022-07-06] MEDS: METOPROLOL TARTRATE 50 MG TAB PO SCH ×2 (09:41→20:28)
[2022-07-06] MEDS: LACOSAMIDE 50 MG TABLET PO SCH ×2 (09:41→20:29)
[2022-07-06] MEDS: PANTOPRAZOLE 40 MG TABLET PO SCH (09:42)
[2022-07-06] MEDS: FUROSEMIDE 40 MG TAB PO SCH (09:42)
[2022-07-06] MEDS: SODIUM BICARBONATE TAB 650 MG TAB PO SCH ×2 (09:42→20:29)
[2022-07-06] MEDS: DIVALPROEX 500 MG TABLET.DR PO SCH (09:42)
[2022-07-06] MEDS: SERTRALINE 25 MG TAB PO SCH (09:42)
[2022-07-06] MEDS: risperiDONE 1 MG TAB PO SCH (20:29)
[2022-07-06] MEDS: DIVALPROEX 250 MG TABLET.DR PO SCH (20:29)
[2022-07-06] MEDS: ATORVASTATIN 20 MG TAB PO SCH (20:29)
--- NOTE | 2022-07-06 22:59 | PN ---
PROGRESS NOTE SUBJECTIVE: Remains on broad-spectrum antibiotics for possible UTI versus pneumonia. Abnormal CT scan revealed a high procalcitonin. Dr. Tristan's consult pending. She appears more alert today. Breathing treatments. She has ground-glass infiltrates throughout both lungs improved, more confluent density in the right lower lobe possible infiltrate. Started on Rocephin, azithromycin. Get consult with Pulmonary as well as Dr. Tristan. Prognosis guarded. OBJECTIVE: LUNGS: Show scattered rhonchi and wheeze. CARDIOVASCULAR: S1, S2. PSYCH: Gives appropriate answers. She looks weak, fatigued. ASSESSMENT AND PLAN: She does not move much around the bed. She can not walk. Get PT, OT involved. Prognosis guarded. MMODL / IJN: [id number] /
--- NOTE | 2022-07-06 23:56 | P.CONS ---
History of Present Illness - Reason for Consult Consult date: 07/06/22 Elevated pro-calcitonin Requesting physician: Mohit Harley - Chief Complaint less responsive than usual x 1 day - History of Present Illness Patient is a 62-year-old -[place] female with multiple comorbidities and multiple admission to this facility patient has been brought to the hospital 3 days ago on 07/03/2022 after the patient was noticed to be less responsive than normal by the family no clear history of any fever or any chills no difficulty breathing no vomiting or any diarrhea was reported on presentation to the hospital patient was also afebrile and no fever have recorded subsequently patient was mildly hypoxic initially with O2 sats of 91% however currently the patient is 96% on room air patient did have a normal white count BUN/creatinine has been elevated patient did have a positive UA procalcitonin was mild elevated 0.28 that has prompted this infectious disease consultation patient did have a chest x-ray pulmonary visit congestion and borderline cardiomegaly mild interstitial edema patient did have a CT of the chest this morning the gr oundglass infiltrates throughout both lung to have some improved more confluent density right lower lobe may reflect atelectasis or infiltrate patient is currently on Rocephin most of the information has been obtained from review the chart as the patient was not able to provide any history Review of Systems Positive points has been mentioned in HPI complete review could not be obtained because of his underlying mental status Past Medical History Past Medical History: CVA/TIA, Hyperlipidemia, Hypertension, Osteoarthritis (OA) Additional Past Medical History / Comment(s): ANEMIA, CVA WITH L ARM WEAKNESS AND bilateral LEG WEAKNESS, hx. 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 Past Psychological History: Anxiety, Depression, Schizophrenia Additional Psychological History / Comment(s): paranoid schizophrenia Smoking Status: Former smoker Past Alcohol Use History: Abuse, Heavy Additional Past Alcohol Use History / Comment(s): Stopped smoking 2010 Past Drug Use History: Cocaine Additional Drug Use History / Comment(s): No current use. Last used 17 yrs ago. - Past Family History Sister(s) Family Medical History: Myocardial Infarction ([place]) Father Family Medical History: Cancer Additional Family Medical History / Comment(s): throat, lung, and rectal cancer Mother Family Medical History: Myocardial Infarction ([place]) Additional Family Medical History / Comment(s): stroke Medications and Allergies Home Medications Medication Instructions Recorded Confirmed Type Aspirin EC [Ecotrin Low Dose] 81 mg PO DAILY 04/12/16 07/03/22 History Omeprazole [PriLOSEC] 20 mg PO DAILY 02/09/20 07/03/22 History Atorvastatin [Lipitor] 20 mg PO HS #30 tab 02/13/20 07/03/22 Rx Divalproex [Depakote] 500 mg PO DAILY 02/20/22 07/03/22 History Levothyroxine Sodium [Synthroid] 75 mcg PO DAILY 02/20/22 07/03/22 History Divalproex [Depakote] 250 mg PO HS 04/24/22 07/03/22 History Furosemide [Lasix] 40 mg PO DAILY 90 Days #90 tab 05/21/22 07/03/22 Rx Buprenorphine [Butrans 5 MCG/HR] 1 patch TRANSDERM FR 07/03/22 07/03/22 History Lacosamide [Vimpat] 100 mg PO BID 07/03/22 07/03/22 History Metoprolol Tartrate [Lopressor] 100 mg PO BID 07/03/22 07/03/22 History Ondansetron Odt [Zofran Odt] 4 mg PO Q8HR PRN 07/03/22 07/03/22 History Sertraline [Zoloft] 25 mg PO DAILY 07/03/22 07/03/22 History Sertraline [Zoloft] 100 mg PO DAILY 07/03/22 07/03/22 History Sodium Bicarbonate Tab 650 mg PO BID 07/03/22 07/03/22 History dronabinoL [Marinol] 2.5 mg PO AC-BID 07/03/22 07/03/22 History haloperidoL [Haldol] 2.5 mg PO BID 07/03/22 07/03/22 History risperiDONE [RisperDAL] 1 mg PO HS 07/03/22 07/03/22 History Allergies Allergy/AdvReac Type Severity Reaction Status Date / Time No Known Allergies Allergy Verified 07/03/22 16:01 Physical Exam Vitals: Vital Signs Temp Pulse Pulse Resp BP Pulse Ox 07/06/22 12:25 80 07/06/22 12:16 76 07/06/22 11:25 98.1 F 80 20 111/70 96 07/06/22 08:43 84 07/06/22 08:33 83 98 07/06/22 08:00 98.3 F 70 20 114/76 93 L 07/06/22 04:00 72 19 96/62 96 07/06/22 00:00 77 18 107/67 100 07/05/22 20:00 98.0 F 72 19 98/60 100 07/05/22 19:54 73 07/05/22 19:35 71 98 07/05/22 16:17 98 F 82 20 120/87 100 Intake and Output 07/05/22 07/06/22 07/06/22 22:59 06:59 14:59 Intake Total 440 Output Total 625 350 Balance -625 -350 440 Intake: Oral 440 Output: Urine 625 350 Other: Voiding Method External Catheter External Catheter External Catheter GENERAL DESCRIPTION: Middle-aged female lying in bed, no distress. No tachypnea or accessory muscle of respiration use. HEENT: Shows Pallor , no scleral icterus. Oral mucous membrane is dry. No pharyn geal erythema or thrush NECK: Trachea central, no thyromegaly. LUNGS: Unlabored breathing. Decreased breath sounds at the base No wheeze or crackle. HEART: S1, S2, regular rate and rhythm. No loud murmur ABDOMEN: Soft, no tenderness , guarding or rigidity, no organomegaly EXTREMITIES: No edema of feet. Unstageable also to the left heel area but no surrounding redness SKIN: No rash, no masses palpable. NEUROLOGICAL: The patient is sleepy lethargic orientation could not be determined Results CBC & Chem 7: 07/05/22 09:20 07/05/22 09:20 Labs: Abnormal Lab Results - Last 24 Hours (Table) 07/05/22 Range/Units 09:20 Procalcitonin 0.28 H (0.02-0.09) ng/mL Assessment and Plan (1) Pneumonia Current Visit: No Status: Acute Code(s): J18.9 - PNEUMONIA, UNSPECIFIED ORGANISM SNOMED Code(s): 195127442 (2) UTI (urinary tract infection) Current Visit: No Status: Acute Code(s): N39.0 - URINARY TRACT INFECTION, SITE NOT SPECIFIED SNOMED Code(s): 38753715 Plan: 1patient is in the hospital mental status changes likely multifactorial in this patient with a possible component of UTI CT also showing more confluent changes in the right lower lobe underlying pneumonia not entirely excluded. 2 We will obtain blood cultures as well as request for sputum culture and follow on the urine cultures. 3continue with Rocephin while waiting for culture to finalize 4patient also have unstageable pressure ulcer to the left heel area with no surrounding redness recommend local wound care I keep the area dry and of the pressure we will follow on clinical condition and cultures to further adjust medication if needed Thank you for this consultation will follow this patient along with you Time with Patient: Greater than 30
[2022-07-07] MEDS: LEVOTHYROXINE 75 MCG TAB PO SCH (06:43)
[2022-07-07] MEDS: IPRATROPIUM-ALBUTEROL 3 ML NEB INHALATION SCH ×3 (07:36→19:52)
[2022-07-07] MEDS: LACOSAMIDE 50 MG TABLET PO SCH ×2 (08:52→20:45)
[2022-07-07] MEDS: DIVALPROEX 500 MG TABLET.DR PO SCH (08:52)
[2022-07-07] MEDS: PANTOPRAZOLE 40 MG TABLET PO SCH (08:52)
[2022-07-07] MEDS: FUROSEMIDE 40 MG TAB PO SCH (08:52)
[2022-07-07] MEDS: SODIUM BICARBONATE TAB 650 MG TAB PO SCH ×2 (08:52→20:45)
[2022-07-07] MEDS: METOPROLOL TARTRATE 50 MG TAB PO SCH ×2 (08:52→20:45)
[2022-07-07] MEDS: SERTRALINE 25 MG TAB PO SCH (08:53)
[2022-07-07] MEDS: haloperidoL 5 MG TAB PO SCH ×2 (08:53→20:45)
[2022-07-07] MEDS: SERTRALINE 100 MG TAB PO SCH (08:53)
[2022-07-07 08:55] LABS: Anisocytosis Slight; Basophils % (A) 0 %; Eosinophils # (A) 0.1 k/uL (0-0.7); Eosinophils % (A) 2 %; HGB 8.1 gm/dL (11.4-16.0); Hypochromasia Slight; Lymphocytes % (A) 34 %; MCH 25.5 pg (25.0-35.0); MCHC 32.4 g/dL (31.0-37.0); MCV 78.7 fL (80.0-100.0); Mean Platelet Volume 8.3; Microcytosis Slight; Monocytes # (A) 0.9 k/uL (0-1.0); Monocytes % (A) 10 %; Neutrophils # (A) 4.7 k/uL (1.3-7.7); Neutrophils % (A) 53 %; Platelet Count 288 k/uL (150-450); RBC 3.17 m/uL (3.80-5.40); RDW 17.7 % (11.5-15.5); WBC 8.9 k/uL (3.8-10.6)
[2022-07-07 09:11] LABS: Albumin 2.7 g/dL (3.5-5.0); C Reactive Protein 4.2 mg/dL (<1.0); Calcium 8.9 mg/dL (8.4-10.2); Potassium 4.3 mmol/L (3.5-5.1); Total Bilirubin 0.2 mg/dL (0.2-1.3); Total Protein 5.9 g/dL (6.3-8.2)
--- NOTE | 2022-07-07 11:19 | CDI ---
Documentation Clarification Form Date: 07/07/2022 10:38:14 AM From: Jeane ValdesDOLLY, CCDS Admit Date: 07/03/2022 06:55:00 PM Patient Name: Jeane Urbano Visit Number: [id number] Discharge Date: ATTENTION: The Clinical Documentation Specialists (CDI) and [facility] Coding Staff appreciate your assistance in clarifying documentation. Please respond to the clarification below the line at the bottom and electronically sign. The CDI & [facility] Coding staff will review the response and follow-up if needed. Please note: Queries are made part of the Legal Health Record. If you have any questions, please contact the author of this message via ITS. Dr. Mohit Harley: Your patient has the documented diagnosis of unspecified Heart Failure in the 07/04 History & Physical without further specification. Additional information regarding the Type & Acuity of CHF is requested. 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 Clinical Indicators: Presented to the ED via EMS 07/03 with Altered Mental Status. Admit with Anemia, Decreased responsiveness and Opiate Overdose. 07/03 VS: T 97.6, 97.5; P 82, R 10, 8, 14; BP 127/66, 94/37; PO 91 RA - 97 4Lnc, BMI: 16.1 07/03 LAB: Hgb 9.5, Hct 30.5; BUN 48, Creatinine 2.59, Glucose 111, TIBC 210, Transferrin 150.0, AST 37 BNP not done. 07/03 CXR: Pulmonary venous congestion with borderline cardiomegaly and mild interstitial edema. No sizable effusion. Interstitial infiltrates of other etiology not excluded. Echocardiogram Results: (Most recent 07/29/2021): EF 55-60%, normal left systolic function. Mild concentric LVH, trace MR, Mild TR. Treatment 07/03: Seizure precautions & neuro assessment, Cardiology was not consulted. O2, IV Narcan 0.2 mg x1 & q2M/prn, IV Na Chl 500 mls @ 999 mls/hr q31M, 1,000 mls @ 50 mls/hr q20H. 07/04: Home dose po Lasix 40 mg (Daily) In your professional opinion, can you please clarify the Acuity & Type of CHF if known? [ ] Chronic Diastolic Heart Failure [ ] Acute on Chronic Diastolic Heart Failure [ ] Other, please specify: [ ] Unable to determine (Template Last Revised: August 2020) MTDD
--- NOTE | 2022-07-07 11:27 | CDI ---
Documentation Clarification Form Date: 07/07/2022 10:38:14 AM From: Jeane ValdesDOLLY, CCDS Admit Date: 07/03/2022 06:55:00 PM Patient Name: Jeane Urbano Visit Number: [id number] Discharge Date: ATTENTION: The Clinical Documentation Specialists (CDI) and [facility] Coding Staff appreciate your assistance in clarifying documentation. Please respond to the clarification below the line at the bottom and electronically sign. The CDI & [facility] Coding staff will review the response and follow-up if needed. Please note: Queries are made part of the Legal Health Record. If you have any questions, please contact the author of this message via ITS. Dr. Mohit Harley: Your patient has the documented diagnosis of unspecified Heart Failure in the 07/04 History & Physical without further specification. Additional information regarding the Type & Acuity of CHF is requested. 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 Clinical Indicators: Presented to the ED via EMS 07/03 with Altered Mental Status. Admit with Anemia, Decreased responsiveness and Opiate Overdose. Per the 07/06 Attending Progress Note: On Broad spectrum antibiotics for possible UTI vs pneumonia. Abnormal CT: high Procalcitonin. Breathing treatments. Scattered rhonchi & wheeze. 07/03 VS: T 97.6, 97.5; P 82, R 10, 8, 14; BP 127/66, 94/37; PO 91 RA - 97 4Lnc, BMI: 16.1 07/03 LAB: Hgb 9.5, Hct 30.5; BUN 48, Creatinine 2.59, Glucose 111, TIBC 210, Transferrin 150.0, AST 37 BNP not done. 07/03 CXR: Pulmonary venous congestion with borderline cardiomegaly and mild interstitial edema. No sizable effusion. Interstitial infiltrates of other etiology not excluded. Echocardiogram Results: (Most recent 07/29/2021): EF 55-60%, normal left systolic function. Mild concentric LVH, trace MR, Mild TR. Treatment 07/03: Seizure precautions & neuro assessment, Cardiology was not consulted. O2, IV Narcan 0.2 mg x1 & q2M/prn, IV Na Chl 500 mls @ 999 mls/hr q31M, 1,000 mls @ 50 mls/hr q20H. 07/04: Home dose po Lasix 40 mg (Daily) In your professional opinion, can you please clarify the Acuity & Type of CHF if known? [ ] Chronic Diastolic Heart Failure [ ] Acute on Chronic Diastolic Heart Failure [ ] Heart failure ruled out. [ ] Other, please specify: [ ] Unable to determine (Template Last Revised: August 2020) MTDD
--- NOTE | 2022-07-07 11:31 | CDI ---
Documentation Clarification Form Date: 07/07/2022 11:27:00 AM From: Jeane ValdesDOLLY, CCDS Admit Date: 07/03/2022 06:55:00 PM Patient Name: Jeane Urbano Visit Number: [id number] Discharge Date: ATTENTION: The Clinical Documentation Specialists (CDI) and [facility] Coding Staff appreciate your assistance in clarifying documentation. Please respond to the clarification below the line at the bottom and electronically sign. The CDI & [facility] Coding staff will review the response and follow-up if needed. Please note: Queries are made part of the Legal Health Record. If you have any questions, please contact the author of this message via ITS. Dr. Mohit Harley: Your patient has an abnormal lab value: BUN 48, Creatinine 2.59. Please clarify if there is an additional diagnosis and/or clinical significance related to this value. 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 Clinical Indicators: Presented to the ED via EMS 07/03 with Altered Mental Status. Admit with Anemia, Decreased responsiveness and Opiate Overdose. Per the 07/06 Attending Progress Note: On Broad spectrum antibiotics for possible UTI vs pneumonia. Abnormal CT: high Procalcitonin. Breathing treatments. Scattered rhonchi & wheeze. 07/03 VS: T 97.6, 97.5; P 82, R 10, 8, 14; BP 127/66, 94/37; PO 91 RA - 97 4Lnc, BMI: 16.1 07/03 LAB: Hgb 9.5, Hct 30.5; BUN 48, Creatinine 2.59, Glucose 111, TIBC 210, Transferrin 150.0, AST 37 BNP not done. 07/03 CXR: Pulmonary venous congestion with borderline cardiomegaly and mild interstitial edema. No sizable effusion. Interstitial infiltrates of other etiology not excluded. Treatment 07/03: Seizure precautions & neuro assessment, Cardiology was not consulted. O2, IV Narcan 0.2 mg x1 & q2M/prn, IV Na Chl 500 mls @ 999 mls/hr q31M, 1,000 mls @ 50 mls/hr q20H. Is there an additional diagnosis and/or clinical significance related to the above lab result/information? [ ] BUN & Creatinine significant, please specify: [ ] BUN & Creatinine not significant, please specify: [ ] No additional diagnosis/Not clinically significant [ ] Other, please specify [ ] Unable to determine (Template Last Revised: August 2020) MTDD
[2022-07-07] MEDS: ATORVASTATIN 20 MG TAB PO SCH (20:44)
[2022-07-07] MEDS: DIVALPROEX 250 MG TABLET.DR PO SCH (20:44)
[2022-07-07] MEDS: risperiDONE 1 MG TAB PO SCH (20:45)
[2022-07-08] MEDS: LEVOTHYROXINE 75 MCG TAB PO SCH (06:34)
--- NOTE | 2022-07-08 06:46 | PN ---
PROGRESS NOTE SUBJECTIVE: A 62-year-old -[place] female, being treated with community-acquired pneumonia, seizures, pain pump reversal due to altered mental status. Creatinine is improving since yesterday with more rehydration. Home medicines have been addressed. We are going to give her Rocephin for UTI and community-acquired pneumonia. Continue current treatments. PT, OT, O2 is 93% on room air. OBJECTIVE: VITAL SIGNS: Blood pressure 160/59, pulse 70s, respiratory rate 14 to 16, and temperature 97. CARDIOVASCULAR: S1, S2. PSYCH: Pleasant mood, giving appropriate answers, but looks like she is at her baseline mentally. LUNGS: Scattered rhonchi and wheeze. HEMATOLOGY: She has mild unstageable ulcer on her heel with a black eschar area, 1 to 2+ edema. ASSESSMENT: Generalized weakness secondary to UTI versus community-acquired pneumonia, altered mental status secondary to pain pump medications which has been reversed, history of chronic obstructive pulmonary disease, seizures, aspiration pneumonia. Prognosis guarded. Continue with broad-spectrum antibiotics. Dr. Tristan consult, Pulmonary consult, please see further orders, PT, OT. MMODL / IJN: [id number] /
[2022-07-08] MEDS: IPRATROPIUM-ALBUTEROL 3 ML NEB INHALATION SCH ×3 (09:05→20:32)
--- NOTE | 2022-07-08 09:13 | CDI ---
Documentation Clarification Form Date: 07/08/2022 09:01:55 AM From: Jeane ValdesDOLLY, CCDS Admit Date: 07/03/2022 06:55:00 PM Patient Name: Jeane Urbano Visit Number: [id number] Discharge Date: ATTENTION: The Clinical Documentation Specialists (CDI) and [facility] Coding Staff appreciate your assistance in clarifying documentation. Please respond to the clarification below the line at the bottom and electronically sign. The CDI & [facility] Coding staff will review the response and follow-up if needed. Please note: Queries are made part of the Legal Health Record. If you have any questions, please contact the author of this message via ITS. Dr. Mohit Harley: Unspecified anemia is documented in the 07/03 ED Note under the Clinical Impression, in the 07/04 Neurology Consult in the patient's Past Medical History and in the 07/06 Infectious Disease Consult without further specificity. Additional specificity regarding the Type & Acuity of Anemia is requested. History/Risk Factors per the 07/04 H/P: Right MCA Stroke with left Hemiplegia, Seizures, Brain Aneurysm, Pain pump, Hypertension, Hyperlipidemia, Osteoarthritis, Pancreatitis, UTI, Gallstones, Tremors, ESBL E Coli (urine), Anxiety, Depression, Schizophrenia, Heavy Alcohol abuse, Former smoker, History of Cocaine. Clinical indicators: Presented to the ED on 07/03 via EMS with Altered Mental Status. Recently had her pain pump changed, family found her less responsive than normal, possibly too much pain medication. lethargic, A/Ox2. Admit with Anemia, Decreased responsiveness, Opiate overdose. 07/03 VS: T 97.6, 97.5; P 82, R 10, 8, 14; BP 127/66, 94/37; PO 91 RA - 97 4Lnc, BMI: 16.1. LAB: 07/03 Hemoglobin: 9.5. 07/05: 8.0. 07/07: 8.1. 07/03 Hematocrit: 30.5. 07/05: 24.8. 07/07: 25.0. 07/03 Iron: 65, TIBC 210, % Sat 30.86, Transferrin 150.0. Treatment 07/03: Blood glucose monitoring, O2, IV Narcan 0.2 mg x2, IV Na Chl 500 mls @ 999 mls/hr q31M x1, IV na Chl 1,000 mls @ 50 mls/hr q20H x1, Home meds, Home meds: Risperdal, Depakote, Lipitor, Zofran, Butrans patch, Haldol, Marinol, Ecotrin low Dose, Zoloft, Vimpat, Na bicarb tab, Prilosec, Lopressor, Synthroid, Lasix. Please clarify the Type & Acuity of Anemia if known: [ ] Chronic blood loss anemia [ ] Iron deficiency anemia [ ] Hemolytic anemia [ ] Drug induced anemia [ ] Nutritional anemia [ ] Anemia of chronic kidney disease [ ] Unable to determine [ ] Other, please specify (Template Last Revised: August 2020) MTDD
[2022-07-08] MEDS: LACOSAMIDE 50 MG TABLET PO SCH ×2 (09:58→21:07)
[2022-07-08] MEDS: haloperidoL 5 MG TAB PO SCH ×2 (09:59→21:07)
[2022-07-08] MEDS: FUROSEMIDE 40 MG TAB PO SCH (09:59)
[2022-07-08] MEDS: METOPROLOL TARTRATE 50 MG TAB PO SCH ×2 (09:59→21:07)
[2022-07-08] MEDS: DIVALPROEX 500 MG TABLET.DR PO SCH (09:59)
[2022-07-08] MEDS: PANTOPRAZOLE 40 MG TABLET PO SCH (09:59)
[2022-07-08] MEDS: SERTRALINE 25 MG TAB PO SCH (09:59)
[2022-07-08] MEDS: SODIUM BICARBONATE TAB 650 MG TAB PO SCH ×2 (09:59→21:07)
[2022-07-08] MEDS: SERTRALINE 100 MG TAB PO SCH (10:00)
[2022-07-08] MEDS: ATORVASTATIN 20 MG TAB PO SCH (21:06)
[2022-07-08] MEDS: risperiDONE 1 MG TAB PO SCH (21:07)
[2022-07-08] MEDS: DIVALPROEX 250 MG TABLET.DR PO SCH (21:07)
[2022-07-09] MEDS: LEVOTHYROXINE 75 MCG TAB PO SCH (06:33)
[2022-07-09] MEDS: IPRATROPIUM-ALBUTEROL 3 ML NEB INHALATION SCH ×3 (07:28→19:31)
[2022-07-09 07:54] LABS: Anisocytosis Slight; Basophils % (A) 0 %; Eosinophils # (A) 0.3 k/uL (0-0.7); Eosinophils % (A) 3 %; HCT 25.5 % (34.0-46.0); Hypochromasia Moderate; Lymphocytes % (A) 31 %; MCH 25.3 pg (25.0-35.0); MCHC 31.5 g/dL (31.0-37.0); MCV 80.3 fL (80.0-100.0); Mean Platelet Volume 8.3; Microcytosis Slight; Monocytes # (A) 1.2 k/uL (0-1.0); Monocytes % (A) 12 %; Neutrophils # (A) 4.9 k/uL (1.3-7.7); Neutrophils % (A) 51 %; Platelet Count 261 k/uL (150-450); RBC 3.18 m/uL (3.80-5.40); RDW 17.7 % (11.5-15.5); WBC 9.6 k/uL (3.8-10.6)
[2022-07-09] MEDS: LACOSAMIDE 50 MG TABLET PO SCH ×2 (08:27→21:45)
[2022-07-09] MEDS: SODIUM BICARBONATE TAB 650 MG TAB PO SCH ×2 (08:31→21:45)
[2022-07-09] MEDS: FUROSEMIDE 40 MG TAB PO SCH (08:34)
[2022-07-09] MEDS: PANTOPRAZOLE 40 MG TABLET PO SCH (08:34)
[2022-07-09] MEDS: DIVALPROEX 500 MG TABLET.DR PO SCH (08:34)
[2022-07-09] MEDS: METOPROLOL TARTRATE 50 MG TAB PO SCH ×2 (08:34→21:45)
[2022-07-09] MEDS: SERTRALINE 100 MG TAB PO SCH (08:34)
[2022-07-09 08:35] LABS: Albumin 2.8 g/dL (3.5-5.0); Calcium 8.7 mg/dL (8.4-10.2); Potassium 4.7 mmol/L (3.5-5.1); Total Bilirubin 0.2 mg/dL (0.2-1.3); Total Protein 6.1 g/dL (6.3-8.2)
[2022-07-09] MEDS: SERTRALINE 25 MG TAB PO SCH (08:35)
--- NOTE | 2022-07-09 12:15 | P.PN ---
Subjective Progress Note Date: 07/07/22 Principal diagnosis: Elevated procalcitonin Patient is a 62-year old -[place] female with multiple comorbidities brought to the hospital with less responsiveness patient was noted to be mildly hypoxic did have a positive UA and elevated procalcitonin CT of the chest did s how some groundglass infiltrates more confluent to the right lower lobe. On today's evaluation that is 07/07/2022, patient is afebrile patient slightly more awake and alert today she is breathing comfortably currently on room air denies any chest pain and worsening cough no abdominal pain no diarrhea Objective - Vital Signs Vital signs: Vital Signs Temp 97.0 F L 07/07/22 08:00 Pulse 85 07/07/22 11:55 Resp 16 07/07/22 08:00 BP 115/60 07/07/22 08:00 Pulse Ox 93 L 07/07/22 08:00 FiO2 Intake & Output 07/06/22 07/07/22 07/07/22 18:59 06:59 18:59 Intake Total 490 680 Output Total 1000 450 Balance -510 -450 680 Intake: Intake, IV Titration 50 100 Amount cefTRIAXone 1 gm In 50 100 Sodium Chloride 0.9% 50 ml @ 100 mls/hr IVPB Q24HR [facility] Rx#:[id number] Oral 440 580 Output: Urine 1000 450 Other: Voiding Method External Catheter External Catheter External Catheter - Exam GENERAL DESCRIPTION: Middle-aged female lying in bed, no distress. No tachypnea or accessory muscle of respiration use. LUNGS: Unlabored breathing. Decreased breath sound at the base HEART: S1, S2, regular rate and rhythm. No loud murmur ABDOMEN: Soft, no tenderness , guarding or rigidity, no organomegaly EXTREMITIES: Left heel did have a unstageable pressure ulcer. - Labs CBC & Chem 7: 07/09/22 07:04 07/09/22 07:04 Labs: Abnormal Lab Results - Last 24 Hours (Table) 07/07/22 07/07/22 Range/Units 08:35 08:35 RBC 3.17 L (3.80-5.40) m/uL Hgb 8.1 L (11.4-16.0) gm/dL Hct 25.0 L (34.0-46.0) % MCV 78.7 L (80.0-100.0) fL RDW 17.7 H (11.5-15.5) % BUN 47 H (7-17) mg/dL Creatinine 1.76 H (0.52-1.04) mg/dL AST 39 H (14-36) U/L C-Reactive Protein 4.2 H (<1.0) mg/dL Total Protein 5.9 L (6.3-8.2) g/dL Albumin 2.7 L (3.5-5.0) g/dL Assessment and Plan (1) Pneumonia Current Visit: No Status: Acute Code(s): J18.9 - PNEUMONIA, UNSPECIFIED ORGANISM SNOMED Code(s): 631465132 (2) UTI (urinary tract infection) Current Visit: No Status: Acute Code(s): N39.0 - URINARY TRACT INFECTION, SITE NOT SPECIFIED SNOMED Code(s): 68641849 Plan: 1patient is in the hospital mental status changes likely multifactorial in this patient with a possible component of UTI CT also showing more confluent changes in the right lower lobe underlying pneumonia not entirely excluded. 2 blood cultures pending sputum culture not collected urine cultures pending. 3continue with Rocephin while waiting for culture to finalize 4patient also have unstageable pressure ulcer to the left heel area with no surrounding redness recommend local wound care I keep the area dry and of the pressure Time with Patient: Less than 30
--- NOTE | 2022-07-09 12:17 | P.PN ---
Subjective Progress Note Date: 07/08/22 Principal diagnosis: Elevated procalcitonin Patient is a 62-year old -Iranian female with multiple comorbidities brought to the hospital with less responsiveness patient was noted to be mildly hypoxic did have a positive UA and elevated procalcitonin CT of the chest did s how some groundglass infiltrates more confluent to the right lower lobe. On today's evaluation that is 07/08/2022, the patient remains to be afebrile the patient is more awake and alert she is breathing comfortably on room air and wants to go home denies any chest pain no cough no abdominal pain and no diarrhea has been reported Objective - Vital Signs Vital signs: Vital Signs Temp 97.2 F L 07/08/22 12:00 Pulse 86 07/08/22 14:00 Resp 14 07/08/22 14:00 BP 101/59 07/08/22 12:00 Pulse Ox 98 07/08/22 12:00 FiO2 Intake & Output 07/07/22 07/08/22 07/08/22 18:59 06:59 18:59 Intake Total 860 10 468 Output Total 300 Balance 860 -290 468 Weight 45.359 kg Intake: IV 10 0.9 10 Intake, IV Titration 100 50 Amount cefTRIAXone 1 gm In 100 50 Sodium Chloride 0.9% 50 ml @ 100 mls/hr IVPB Q24HR [facility] Rx#:[id number] Oral [id number] Output: Urine 300 Other: Voiding Method External Catheter External Catheter External Catheter # Bowel Movements 1 - Exam GENERAL DESCRIPTION: Middle-aged female lying in bed, no distress. No tachypnea or accessory muscle of respiration use. LUNGS: Unlabored breathing. Decreased breath sound at the base HEART: S1, S2, regular rate and rhythm. No loud murmur ABDOMEN: Soft, no tenderness , guarding or rigidity, no organomegaly EXTREMITIES: Left heel did have a unstageable pressure ulcer. - Labs CBC & Chem 7: 07/09/22 07:04 07/09/22 07:04 Labs: Microbiology - Last 24 Hours (Table) 07/07/22 08:35 Blood Culture - Preliminary Blood No Growth after 24 hours Assessment and Plan (1) Pneumonia Current Visit: No Status: Acute Code(s): J18.9 - PNEUMONIA, UNSPECIFIED ORGANISM SNOMED Code(s): 685024013 (2) UTI (urinary tract infection) Current Visit: No Status: Acute Code(s): N39.0 - URINARY TRACT INFECTION, SITE NOT SPECIFIED SNOMED Code(s): 98233176 Plan: 1patient is in the hospital mental status changes likely multifactorial in this patient with a possible component of UTI CT also showing more confluent changes in the right lower lobe underlying pneumonia ? aspiration etiology 2 blood cultures pending sputum culture not collected urine cultures pending. 3Pt continue with Rocephin , if cultures negative to finish therapy with oral augmentin 4patient also have unstageable pressure ulcer to the left heel area with no surrounding redness recommend local wound care I keep the area dry and of the pressure Time with Patient: Less than 30
[2022-07-09] MEDS: haloperidoL 5 MG TAB PO SCH ×2 (18:42→21:45)
[2022-07-09] MEDS: DIVALPROEX 250 MG TABLET.DR PO SCH (21:45)
[2022-07-09] MEDS: risperiDONE 1 MG TAB PO SCH (21:45)
[2022-07-09] MEDS: ATORVASTATIN 20 MG TAB PO SCH (21:45)
[2022-07-10] MEDS: LEVOTHYROXINE 75 MCG TAB PO SCH (04:54)
[2022-07-10] MEDS: SERTRALINE 100 MG TAB PO SCH (08:28)
[2022-07-10] MEDS: METOPROLOL TARTRATE 50 MG TAB PO SCH ×2 (08:28→21:09)
[2022-07-10] MEDS: PANTOPRAZOLE 40 MG TABLET PO SCH (08:28)
[2022-07-10] MEDS: FUROSEMIDE 40 MG TAB PO SCH (08:28)
[2022-07-10] MEDS: LACOSAMIDE 50 MG TABLET PO SCH ×2 (08:28→21:09)
[2022-07-10] MEDS: SERTRALINE 25 MG TAB PO SCH (08:28)
[2022-07-10] MEDS: DIVALPROEX 500 MG TABLET.DR PO SCH (08:28)
[2022-07-10] MEDS: SODIUM BICARBONATE TAB 650 MG TAB PO SCH ×2 (08:28→21:09)
[2022-07-10] MEDS: haloperidoL 5 MG TAB PO SCH ×2 (08:43→21:09)
[2022-07-10] MEDS: IPRATROPIUM-ALBUTEROL 3 ML NEB INHALATION SCH ×3 (08:52→21:16)
--- NOTE | 2022-07-10 09:13 | P.CNPUL ---
History of Present Illness Consult date: 07/10/22 Reason for consult: dyspnea, COPD Chief complaint: Shortness of breath History of present illness: Patient is a 62 year old appear much older then the stated age he came into the hospital as she was found to be somnolent and lethargic was admitted on July 03 her prior medical history significant for stroke she has been on pain medicine/narcotics initial thought were overdose more than required patient however was arousable is still arousable opens eyes follow simple commands, her primary medical history significant for dyslipidemia hypertension hypertensive cardiovascular disease CVA with left-sided weakness and lower extremity weakness along with history of gout pancreatitis pseudoseizure and history of multiple brain aneurysm patient has a history of ESBL UTI and urine. She has multiple requirements turned down to the brain. In the emergency department she was given 0.2 mg of Narcan IV immediately become more awake and alert higher dose of pain medicine the escalated in the pain pump. Initial chest x-ray interstitial edema pulmonary vascular congestion along with cardiomegaly No new acute intra-cranial process identified right middle cerebral artery encephalomalacia seen. CT chest basal groundglass infiltrate overall improved compared to prior exam on May 08, possible basal atelectasis, patient was treated with IV Rocephin versus patient will UTI and possible pneumonia. She remains on bronchodilators IV Rocephin continuation of home medicines along with diuretics. Her most recent labs include white cell count 9.6 hemoglobin and hematocrit is 8/25, platelet count 261, sodium is 134 potassium 4.7 BUN/creatinine 47/1.57 somewhat improved compared to prior renal functions, urine analysis large leukocyte is trace, cultures pending, pro-concern is 0.28 Review of Systems All systems: negative Past Medical History Past Medical History: CVA/TIA, Hyperlipidemia, Hypertension, Osteoarthritis (OA) Additional Past Medical History / Comment(s): ANEMIA, CVA WITH L ARM WEAKNESS AND bilateral LEG WEAKNESS, hx. gout, PANCREATITIS, pseudoseizures, UTI, gallstones, tremors, hx multiple brain aneursyms History of Any Multi-Drug Resistant Organisms: None Reported Date of last positivie culture/infection: 03/18/18 ESBL E.coli MDRO Source:: Urine Past Surgical History: Section, Cholecystectomy, Orthopedic Surgery Additional Past Surgical History / Comment(s): hx aneurysms- COILS AND STENTS TO BRAIN, repair tendons r/t gout BILATERAL FEET; Pain pump inserted on 04/21/22 Past Anesthesia/Blood Transfusion Reactions: No Reported Reaction Additional Past Anesthesia/Blood Transfusion Reaction / Comment(s): PT HAS HAD BLOOD TRANSFUSIONS FOR ANEMIA-NO REACTION. Past Psychological History: Anxiety, Depression, Schizophrenia Additional Psychological History / Comment(s): paranoid schizophrenia Smoking Status: Former smoker Past Alcohol Use History: Abuse, Heavy Additional Past Alcohol Use History / Comment(s): Stopped smoking 2010 Past Drug Use History: Cocaine Additional Drug Use History / Comment(s): No current use. Last used 17 yrs ago. - Past Family History Sister(s) Family Medical History: Myocardial Infarction ([place]) Father Family Medical History: Cancer Additional Family Medical History / Comment(s): throat, lung, and rectal cancer Mother Family Medical History: Myocardial Infarction ([place]) Additional Family Medical History / Comment(s): stroke Medications and Allergies Home Medications Medication Instructions Recorded Confirmed Type Aspirin EC [Ecotrin Low Dose] 81 mg PO DAILY 04/12/16 07/03/22 History Omeprazole [PriLOSEC] 20 mg PO DAILY 02/09/20 07/03/22 History Atorvastatin [Lipitor] 20 mg PO HS #30 tab 02/13/20 07/03/22 Rx Divalproex [Depakote] 500 mg PO DAILY 02/20/22 07/03/22 History Levothyroxine Sodium [Synthroid] 75 mcg PO DAILY 02/20/22 07/03/22 History Divalproex [Depakote] 250 mg PO HS 04/24/22 07/03/22 History Furosemide [Lasix] 40 mg PO DAILY 90 Days #90 tab 05/21/22 07/03/22 Rx Buprenorphine [Butrans 5 MCG/HR] 1 patch TRANSDERM FR 07/03/22 07/03/22 History Lacosamide [Vimpat] 100 mg PO BID 07/03/22 07/03/22 History Metoprolol Tartrate [Lopressor] 100 mg PO BID 07/03/22 07/03/22 History Ondansetron Odt [Zofran Odt] 4 mg PO Q8HR PRN 07/03/22 07/03/22 History Sertraline [Zoloft] 25 mg PO DAILY 07/03/22 07/03/22 History Sertraline [Zoloft] 100 mg PO DAILY 07/03/22 07/03/22 History Sodium Bicarbonate Tab 650 mg PO BID 07/03/22 07/03/22 History dronabinoL [Marinol] 2.5 mg PO AC-BID 07/03/22 07/03/22 History haloperidoL [Haldol] 2.5 mg PO BID 07/03/22 07/03/22 History risperiDONE [RisperDAL] 1 mg PO HS 07/03/22 07/03/22 History Allergies Allergy/AdvReac Type Severity Reaction Status Date / Time No Known Allergies Allergy Verified 07/03/22 16:01 Physical Exam Vitals: Vital Signs Temp Pulse Pulse Resp BP BP Pulse Ox 07/10/22 08:53 72 07/10/22 04:46 98.1 F 67 14 159/89 97 07/09/22 20:00 16 07/09/22 19:57 97.6 F 71 14 124/81 99 07/09/22 19:15 97.9 F 109 H 16 111/65 92 L 07/09/22 15:20 98.1 F 80 16 97/61 99 07/09/22 12:00 97.9 F 76 18 101/69 98 07/09/22 10:56 76 07/09/22 10:46 74 Intake and Output 07/09/22 07/10/22 07/10/22 22:59 06:59 14:59 Intake Total 240 Output Total 300 Balance 240 -300 Intake: Oral 240 Output: Urine 300 Other: Voiding Method External Catheter # Bowel Movements 2 - Constitutional General appearance: average body habitus, cooperative, disheveled - EENT Eyes: EOMI, PERRLA ENT: normal oropharynx Ears: bilateral: normal - Neck Carotids: bilateral: upstroke normal Thyroid: bilateral: normal size - Respiratory Respiratory: bilateral: CTA - Cardiovascular Rhythm: regular Heart sounds: normal: S1, S2 - Gastrointestinal General gastrointestinal: normal bowel sounds - Integumentary Integumentary: normal, normal turgor - Musculoskeletal Musculoskeletal: generalized weakness, left sided weakness - Psychiatric Psychiatric: appropriate affect Results - Laboratory Findings CBC and BMP: 07/09/22 07:04 07/09/22 07:04 PT/INR, D-dimer PT 11.0 sec (9.0-12.0) 07/03/22 15:38 INR 1.0 (<1.2) 07/03/22 15:38 Abnormal lab findings: Abnormal Labs 07/03/22 07/03/22 07/03/22 15:38 15:38 15:38 RBC 3.75 L Hgb 9.5 L D Hct 30.5 L MCV RDW 17.6 H Monocytes # Sodium BUN 48 H Creatinine 2.59 H Glucose 111 H TIBC 210 L Transferrin 150.0 L AST 37 H C-Reactive Protein Total Protein Albumin Procalcitonin Urine Appearance Urine Protein Urine Ketones Ur Leukocyte Esterase Urine WBC Ur Squamous Epith Cells Urine Bacteria Urine Mucus 07/05/22 07/05/22 07/05/22 06:58 09:20 09:20 RBC 3.06 L Hgb 8.0 L D Hct 24.8 L MCV RDW 17.3 H Monocytes # Sodium BUN Creatinine Glucose TIBC Transferrin AST C-Reactive Protein Total Protein Albumin Procalcitonin 0.28 H Urine Appearance Cloudy H Urine Protein Trace H Urine Ketones Trace H Ur Leukocyte Esterase Large H Urine WBC 29 H Ur Squamous Epith Cells 8 H Urine Bacteria Rare H Urine Mucus Rare H 07/05/22 07/07/22 07/07/22 09:20 08:35 08:35 RBC 3.17 L Hgb 8.1 L Hct 25.0 L MCV 78.7 L RDW 17.7 H Monocytes # Sodium BUN 47 H 47 H Creatinine 2.00 H 1.76 H Glucose 110 H TIBC Transferrin AST 73 H 39 H C-Reactive Protein 4.2 H Total Protein 6.0 L 5.9 L Albumin 2.8 L 2.7 L Procalcitonin Urine Appearance Urine Protein Urine Ketones Ur Leukocyte Esterase Urine WBC Ur Squamous Epith Cells Urine Bacteria Urine Mucus 07/09/22 07/09/22 07:04 07:04 RBC 3.18 L Hgb 8.0 L Hct 25.5 L MCV RDW 17.7 H Monocytes # 1.2 H Sodium 134 L BUN 47 H Creatinine 1.57 H Glucose TIBC Transferrin AST C-Reactive Protein Total Protein 6.1 L Albumin 2.8 L Procalcitonin Urine Appearance Urine Protein Urine Ketones Ur Leukocyte Esterase Urine WBC Ur Squamous Epith Cells Urine Bacteria Urine Mucus - Diagnostic Findings Chest x-ray: report reviewed, image reviewed CT scan - chest: report reviewed, image reviewed (As noted above) Assessment and Plan Assessment: Sepsis likely related to urinary tract infection Altered mental status related to above also narcotic overdose with baseline stroke and multiple comorbidities Possible pneumonia versus interstitial edema and atelectasis UTI History of prior stroke and bed bound status with history of multiple aneurysm required coiling Chronic pain syndrome on pain pump Chronic kidney disease Gout Hypertension hypertensive cardiovascular disease Chronic systolic and diastolic heart failure with acute exacerbation Plan: Continue gentle diuresis Continue broad-spectrum antibiotics Bronchodilators Deep breathing sense incentive spirometry Observe patient off of oxygen Monitor renal functions Increase activity as tolerated DVT prophylaxis Further plan of care as per clinical response of the patient Time with Patient: Greater than 30
--- NOTE | 2022-07-10 16:49 | P.PN ---
Subjective Progress Note Date: 07/09/22 Principal diagnosis: Elevated procalcitonin Patient is a 62-year old -[place] female with multiple comorbidities brought to the hospital with less responsiveness patient was noted to be mildly hypoxic did have a positive UA and elevated procalcitonin CT of the chest did s how some groundglass infiltrates more confluent to the right lower lobe. On today's evaluation that is 07/09/2022, the patient continues to be afebrile the patient is breathing comfortably on room air , the patient denies any chest pain no cough no abdominal pain and no diarrhea has been reported Objective - Vital Signs Vital signs: Vital Signs Temp 98.1 F 07/09/22 12:46 Pulse 72 07/09/22 12:57 Resp 16 07/09/22 12:46 BP 143/82 07/09/22 12:46 Pulse Ox 96 07/09/22 12:46 FiO2 21 07/08/22 20:32 Intake & Output 07/09/22 12:59 Intake Total 570 Output Total Balance 570 Intake: Oral 570 Output: Urine Other: Voiding Method External Catheter # Bowel Movements 2 - Exam GENERAL DESCRIPTION: Middle-aged female lying in bed, no distress. No tachypnea or accessory muscle of respiration use. LUNGS: Unlabored breathing. Decreased breath sound at the base HEART: S1, S2, regular rate and rhythm. No loud murmur ABDOMEN: Soft, no tenderness , guarding or rigidity, no organomegaly EXTREMITIES: Left heel did have a unstageable pressure ulcer. - Labs CBC & Chem 7: 07/09/22 07:04 07/09/22 07:04 Labs: Microbiology - Last 24 Hours (Table) 07/07/22 08:35 Blood Culture - Preliminary Blood No Growth after 72 hours Assessment and Plan (1) Pneumonia Current Visit: No Status: Acute Code(s): J18.9 - PNEUMONIA, UNSPECIFIED ORGANISM SNOMED Code(s): 769965319 (2) UTI (urinary tract infection) Current Visit: No Status: Acute Code(s): N39.0 - URINARY TRACT INFECTION, SITE NOT SPECIFIED SNOMED Code(s): 78208574 Plan: 1patient is in the hospital mental status changes likely multifactorial in this patient with a possible component of UTI CT also showing more confluent changes in the right lower lobe underlying pneumonia ? aspiration etiology 2 blood cultures pending sputum culture not collected urine cultures pending. 3patient seemed to showing clinical improvement and will continue with Rocephin , if cultures negative to finish therapy with oral augmentin 4patient also have unstageable pressure ulcer to the left heel area with no surrounding redness recommend local wound care I keep the area dry and of the pressure Time with Patient: Less than 30
--- NOTE | 2022-07-10 16:50 | P.PN ---
Subjective Progress Note Date: 07/10/22 Principal diagnosis: Elevated procalcitonin Patient is a 62-year old -[place]ij[place] female with multiple comorbidities brought to the hospital with less responsiveness patient was noted to be mildly hypoxic did have a positive UA and elevated procalcitonin CT of the chest did s how some groundglass infiltrates more confluent to the right lower lobe. On today's evaluation that is 07/10/2022, the patient remains to be afebrile the patient is breathing comfortably on room air , the patient slightly sleepy today and did not answer any question and vomiting diarrhea or any other changes reported by the family the bedside Objective - Vital Signs Vital signs: Vital Signs Temp 98.1 F 07/10/22 12:46 Pulse 72 07/10/22 12:57 Resp 16 07/10/22 12:46 BP 143/82 07/10/22 12:46 Pulse Ox 96 07/10/22 12:46 FiO2 21 07/08/22 20:32 Intake & Output 07/09/22 07/10/22 07/10/22 18:59 06:59 18:59 Intake Total 570 240 Output Total 300 Balance 570 -60 Intake: Oral 570 240 Output: Urine 300 Other: Voiding Method External Catheter External Catheter Diaper Incontinent External Catheter # Bowel Movements 2 - Exam GENERAL DESCRIPTION: Middle-aged female lying in bed, no distress. No tachypnea or accessory muscle of respiration use. LUNGS: Unlabored breathing. Decreased breath sound at the base HEART: S1, S2, regular rate and rhythm. No loud murmur ABDOMEN: Soft, no tenderness , guarding or rigidity, no organomegaly EXTREMITIES: Left heel did have a unstageable pressure ulcer. - Labs CBC & Chem 7: 07/09/22 07:04 07/09/22 07:04 Labs: Microbiology - Last 24 Hours (Table) 07/07/22 08:35 Blood Culture - Preliminary Blood No Growth after 72 hours Assessment and Plan (1) Pneumonia Current Visit: No Status: Acute Code(s): J18.9 - PNEUMONIA, UNSPECIFIED ORGANISM SNOMED Code(s): 749872898 (2) UTI (urinary tract infection) Current Visit: No Status: Acute Code(s): N39.0 - URINARY TRACT INFECTION, SITE NOT SPECIFIED SNOMED Code(s): 47996605 Plan: 1patient is in the hospital mental status changes likely multifactorial in this patient with a possible component of UTI CT also showing more confluent changes in the right lower lobe underlying pneumonia ? aspiration etiology 2 blood cultures pending sputum culture not collected urine cultures pending. 3patient has shown clinical improvement and will continue with Rocephin , with a plan to finish therapy with oral augmentin 4patient also have unstageable pressure ulcer to the left heel area with no surrounding redness recommend local wound care I keep the area dry and of the pressure Family the bedside questions were answered Time with Patient: Less than 30
[2022-07-10] MEDS: ATORVASTATIN 20 MG TAB PO SCH (21:09)
[2022-07-10] MEDS: risperiDONE 1 MG TAB PO SCH (21:10)
[2022-07-10] MEDS: DIVALPROEX 250 MG TABLET.DR PO SCH (21:10)
[2022-07-11] MEDS: LEVOTHYROXINE 75 MCG TAB PO SCH (05:25)
--- NOTE | 2022-07-11 06:26 | PN ---
PROGRESS NOTE DATE OF SERVICE: 07/09/2022 SUBJECTIVE: This -[place] female was admitted with opiate overdose due to pain pump, which has been reversed. She has been treated for aspiration pneumonia with Rocephin, possible UTI. Sodium bicarbonate for renal insufficiency was given. Her Appetite is improved with Marinol. Possibly discharge home tomorrow. OBJECTIVE: LUNGS: Show scattered rhonchi and wheeze. CARDIOVASCULAR: S1, S2. EXTREMITIES: 3/5 strength. PSYCH: Pleasantly confused, giving appropriate answers. ASSESSMENT AND PLAN: Community-acquired pneumonia, urinary tract infection, opiate overdose due to pain pump, multiple medical problems including seizure disorder, weakness and malnutrition. Continue current treatment. Possibly discharge home once cleared by Infectious Disease tomorrow. Continue broad-spectrum antibiotics. Marinol for poor appetite. PT OT for weakness. MMODL / IJN: [id number] /
[2022-07-11] MEDS: PANTOPRAZOLE 40 MG TABLET PO SCH (08:37)
[2022-07-11] MEDS: FUROSEMIDE 40 MG TAB PO SCH (08:37)
[2022-07-11] MEDS: SERTRALINE 25 MG TAB PO SCH (08:37)
[2022-07-11] MEDS: DIVALPROEX 500 MG TABLET.DR PO SCH (08:37)
[2022-07-11] MEDS: LACOSAMIDE 50 MG TABLET PO SCH (08:37)
[2022-07-11] MEDS: haloperidoL 5 MG TAB PO SCH (08:37)
[2022-07-11] MEDS: METOPROLOL TARTRATE 50 MG TAB PO SCH (08:37)
[2022-07-11] MEDS: SODIUM BICARBONATE TAB 650 MG TAB PO SCH (08:38)
[2022-07-11] MEDS: SERTRALINE 100 MG TAB PO SCH (08:38)
[2022-07-11] MEDS: IPRATROPIUM-ALBUTEROL 3 ML NEB INHALATION SCH ×2 (09:05→12:37)
[2022-07-11 09:40] LABS: Basophils # (A) 0.03 X 10*3/uL (0.00-0.10); Basophils % (A) 0.3 %; Eosinophils % (A) 1.7 %; HCT 24.2 % (37.2-46.3); HGB 7.7 g/dL (12.0-15.0); Immature Grans, Automated 1.7 %; Lymphocytes # (A) 3.85 X 10*3/uL (0.90-5.00); Lymphocytes % (A) 32.2 %; MCH 24.1 pg (27.0-32.0); MCHC 31.8 g/dL (32.0-37.0); MCV 75.9 fL (80.0-97.0); Monocytes # (A) 2.01 X 10*3/uL (0.20-1.00); Monocytes % (A) 16.8 %; NRBC Per 100 WBC 0 /100 WBCS (0.0-0.0); Neutrophils # (A) 5.68 X 10*3/uL (1.80-7.70); Neutrophils % (A) 47.3 %; Platelet Count 277 X 10*3/uL (140-440); RBC 3.19 X 10*6/uL (4.10-5.20); RDW 18.8 % (11.5-14.5); WBC 11.97 X 10*3/uL (4.50-10.00)
[2022-07-11 09:51] LABS: ALT 14 U/L (8-44); AST 24 U/L (13-35); African American GFR (CKD) 29.8 (60.0-200.0); Albumin 2.8 g/dL (3.8-4.9); Albumin/Globulin Ratio 0.93 (1.60-3.17); Alkaline Phosphatase 108 U/L (41-126); BUN/Creat Ratio 22.45 Ratio (12.00-20.00); Blood Urea Nitrogen 44.9 mg/dL (9.0-27.0); Calcium 9.5 mg/dL (8.7-10.3); Carbon Dioxide 27.6 mmol/L (20.0-27.5); Chloride 99 mmol/L (96-109); Glucose 92 mg/dL (70-110); Non-African American GFR(CKD) 25.7 (60.0-200.0); Sodium 138 mmol/L (135-145); Total Bilirubin <0.15 mg/dL (0.30-1.20); Total Protein 5.8 g/dL (6.2-8.2)
[2022-07-11 11:05] VITALS: BMI 17.4
--- NOTE | 2022-07-11 12:27 | P.PN ---
Subjective Progress Note Date: 07/11/22 Principal diagnosis: Elevated procalcitonin Patient is a 62-year old -Hond[place] female with multiple comorbidities brought to the hospital with less responsiveness patient was noted to be mildly hypoxic did have a positive UA and elevated procalcitonin CT of the chest did s how some groundglass infiltrates more confluent to the right lower lobe. On today's evaluation that is 07/11/2022, the patient continues to be afebrile , the patient is more awake and alert today the patient is breathing comfortably on room air, denies any chest pain or cough no abdominal pain or diarrhea Objective - Vital Signs Vital signs: Vital Signs Temp 98.1 F 07/11/22 04:13 Pulse 70 07/11/22 09:18 Resp 18 07/11/22 04:13 BP 119/70 07/11/22 04:13 Pulse Ox 97 07/11/22 04:13 FiO2 21 07/08/22 20:32 Intake & Output 07/10/22 07/11/22 07/11/22 18:59 06:59 18:59 Intake Total 50 300 240 Output Total 700 200 Balance -650 100 240 Weight 49 kg 49 kg Intake: Intake, IV Titration 50 Amount cefTRIAXone 1 gm In 50 Sodium Chloride 0.9% 50 ml @ 100 mls/hr IVPB Q24HR [facility] Rx#:[id number] Oral 300 240 Output: Urine 700 200 Other: Voiding Method Diaper Diaper Diaper Incontinent Incontinent Incontinent External Catheter External Catheter External Catheter # Voids 1 - Exam GENERAL DESCRIPTION: Middle-aged female lying in bed, no distress. No tachypnea or accessory muscle of respiration use. LUNGS: Unlabored breathing. Decreased breath sound at the base HEART: S1, S2, regular rate and rhythm. No loud murmur ABDOMEN: Soft, no tenderness , guarding or rigidity, no organomegaly EXTREMITIES: Left heel did have a unstageable pressure ulcer. - Labs CBC & Chem 7: 07/11/22 05:20 07/11/22 05:20 Labs: Abnormal Lab Results - Last 24 Hours (Table) 07/11/22 07/11/22 Range/Units 05:20 05:20 WBC 11.97 H (4.50-10.00) X 10*3/uL RBC 3.19 L (4.10-5.20) X 10*6/uL Hgb 7.7 L (12.0-15.0) g/dL Hct 24.2 L (37.2-46.3) % MCV 75.9 L (80.0-97.0) fL MCH 24.1 L (27.0-32.0) pg MCHC 31.8 L (32.0-37.0) g/dL RDW 18.8 H (11.5-14.5) % Immature Gran # 0.20 H (0.00-0.04) X 10*3/uL Monocytes # 2.01 H (0.20-1.00) X 10*3/uL Carbon Dioxide 27.6 H (20.0-27.5) mmol/L BUN 44.9 H (9.0-27.0) mg/dL Creatinine 2.0 H (0.6-1.5) mg/dL Est GFR (CKD-EPI)AfAm 29.8 L (60.0-200.0) Est GFR (CKD-EPI)NonAf 25.7 L (60.0-200.0) BUN/Creatinine Ratio 22.45 H (12.00-20.00) Ratio Total Bilirubin <0.15 L (0.30-1.20) mg/dL Total Protein 5.8 L (6.2-8.2) g/dL Albumin 2.8 L (3.8-4.9) g/dL Albumin/Globulin Ratio 0.93 L (1.60-3.17) g/dL Microbiology - Last 24 Hours (Table) 07/07/22 08:35 Blood Culture - Preliminary Blood No Growth after 96 hours Assessment and Plan (1) Pneumonia Current Visit: No Status: Acute Code(s): J18.9 - PNEUMONIA, UNSPECIFIED ORGANISM SNOMED Code(s): 166191523 (2) UTI (urinary tract infection) Current Visit: No Status: Acute Code(s): N39.0 - URINARY TRACT INFECTION, SITE NOT SPECIFIED SNOMED Code(s): 91542104 Plan: 1patient is in the hospital mental status changes likely multifactorial in this patient with a possible component of UTI CT also showing more confluent changes in the right lower lobe underlying pneumonia ? aspiration etiology 2 blood cultures pending sputum culture not collected urine cultures pending. 3patient has shown clinical improvement and will continue with Rocephin , we will see the patient to oral augmentin which can be continued on discharge for about a week 4patient also have unstageable pressure ulcer to the left heel area with no surrounding redness recommend local wound care I keep the area dry and of the pressure Time with Patient: Less than 30
[2022-07-11 12:33] VITALS: BP 120/78; RESP 16; TEMP 98.7
[2022-07-11 12:39] VITALS: PULSE 78
[2022-07-11] MEDS ORDERED: CEFDINIR 300 MG CAP PO SCH (12:45)
--- NOTE | 2022-07-11 14:17 | P.PN ---
Subjective Progress Note Date: 07/11/22 Principal diagnosis: Sepsis likely related to urinary tract infection Altered mental status related to above also narcotic overdose with baseline stroke and multiple comorbidities Possible pneumonia versus interstitial edema and atelectasis UTI History of prior stroke and bed bound status with history of multiple aneurysm required coiling Chronic pain syndrome on pain pump Chronic kidney disease Gout Hypertension hypertensive cardiovascular disease Chronic systolic and diastolic heart failure with acute exacerbation 07/11/2022, patient seen eval examined during the rounds labs reviewed medications reviewed overall remains unchanged, still left shortness of breath on activity and exertion, vitals however is stable, she is afebrile with temperature 90.8, respiratory rate is 16-18, heart rate 82, blood pressure is 120/78 oxygen saturation 99%, total status stable, patient remains on bronchodilators oral like Augmentin, and continuation of home medicines along with gentle diuresis computed tomography scan finding as noted above Patient is a 62 year old appear much older then the stated age he came into the hospital as she was found to be somnolent and lethargic was admitted on July 03 her prior medical history significant for stroke she has been on pain medicine/narcotics initial thought were overdose more than required patient however was arousable is still arousable opens eyes follow simple commands, her primary medical history significant for dyslipidemia hypertension hypertensive cardiovascular disease CVA with left-sided weakness and lower extremity weakness along with history of gout pancreatitis pseudoseizure and history of multiple brain aneurysm patient has a history of ESBL UTI and urine. She has multiple requirements turned down to the brain. In the emergency department she was given 0.2 mg of Narcan IV immediately become more awake and alert higher dose of pain medicine the escalated in the pain pump. Initial chest x-ray interstitial edema pulmonary vascular congestion along with cardiomegaly No new acute intra-cranial process identified right middle cerebral artery encephalomalacia seen. CT chest basal groundglass infiltrate overall improved compared to prior exam on May 08, possible basal atelectasis, patient was treated with IV Rocephin versus patient will UTI and possible pneumonia. She remains on bronchodilators IV Rocephin continuation of home medicines along with diuretics. Her most recent labs include white cell count 9.6 hemoglobin and hematocrit is 8/25, platelet count 261, sodium is 134 potassium 4.7 BUN/creatinine 47/1.57 somewhat improved compared to prior renal functions, urine analysis large leukocyte is trace, cultures pending, pro-concern is 0.28 Objective - Vital Signs Vital signs: Vital Signs Temp 98.7 F 07/11/22 11:45 Pulse 78 07/11/22 12:47 Resp 16 07/11/22 11:45 BP 120/78 07/11/22 11:45 Pulse Ox 99 07/11/22 11:45 FiO2 21 07/08/22 20:32 Intake & Output 07/10/22 07/11/22 07/11/22 18:59 06:59 18:59 Intake Total 50 300 240 Output Total 700 200 Balance -650 100 240 Weight 49 kg 49 kg Intake: Intake, IV Titration 50 Amount cefTRIAXone 1 gm In 50 Sodium Chloride 0.9% 50 ml @ 100 mls/hr IVPB Q24HR [facility] Rx#:[id number] Oral 300 240 Output: Urine 700 200 Other: Voiding Method Diaper Diaper Diaper Incontinent Incontinent Incontinent External Catheter External Catheter External Catheter # Voids 1 - Exam - Constitutional General appearance: average body habitus, cooperative, disheveled - EENT Eyes: EOMI, PERRLA ENT: normal oropharynx Ears: bilateral: normal - Neck Carotids: bilateral: upstroke normal Thyroid: bilateral: normal size - Respiratory Respiratory: bilateral: CTA - Cardiovascular Rhythm: regular Heart sounds: normal: S1, S2 - Gastrointestinal General gastrointestinal: normal bowel sounds - Integumentary Integumentary: normal, normal turgor - Musculoskeletal Musculoskeletal: generalized weakness, left sided weakness - Psychiatric Psychiatric: appropriate affect - Labs CBC & Chem 7: 07/11/22 05:20 07/11/22 05:20 Labs: Abnormal Lab Results - Last 24 Hours (Table) 07/11/22 07/11/22 Range/Units 05:20 05:20 WBC 11.97 H (4.50-10.00) X 10*3/uL RBC 3.19 L (4.10-5.20) X 10*6/uL Hgb 7.7 L (12.0-15.0) g/dL Hct 24.2 L (37.2-46.3) % MCV 75.9 L (80.0-97.0) fL MCH 24.1 L (27.0-32.0) pg MCHC 31.8 L (32.0-37.0) g/dL RDW 18.8 H (11.5-14.5) % Immature Gran # 0.20 H (0.00-0.04) X 10*3/uL Monocytes # 2.01 H (0.20-1.00) X 10*3/uL Carbon Dioxide 27.6 H (20.0-27.5) mmol/L BUN 44.9 H (9.0-27.0) mg/dL Creatinine 2.0 H (0.6-1.5) mg/dL Est GFR (CKD-EPI)AfAm 29.8 L (60.0-200.0) Est GFR (CKD-EPI)NonAf 25.7 L (60.0-200.0) BUN/Creatinine Ratio 22.45 H (12.00-20.00) Ratio Total Bilirubin <0.15 L (0.30-1.20) mg/dL Total Protein 5.8 L (6.2-8.2) g/dL Albumin 2.8 L (3.8-4.9) g/dL Albumin/Globulin Ratio 0.93 L (1.60-3.17) g/dL Microbiology - Last 24 Hours (Table) 07/07/22 08:35 Blood Culture - Preliminary Blood No Growth after 96 hours Assessment and Plan Assessment: Sepsis likely related to urinary tract infection Altered mental status related to above also narcotic overdose with baseline stroke and multiple comorbidities Possible pneumonia versus interstitial edema and atelectasis UTI History of prior stroke and bed bound status with history of multiple aneurysm required coiling Chronic pain syndrome on pain pump Chronic kidney disease Gout Hypertension hypertensive cardiovascular disease Chronic systolic and diastolic heart failure with acute exacerbation Plan: Continue gentle diuresis Continue broad-spectrum antibiotics Bronchodilators Deep breathing sense incentive spirometry Observe patient off of oxygen Monitor renal functions Increase activity as tolerated DVT prophylaxis Further plan of care as per clinical response of the patient Time with Patient: Greater than 30
[2022-07-11] MEDS ORDERED: AMOXIC-POT CLAV 500-125 MG 1 EACH TAB PO SCH (21:00)
--- NOTE | 2022-07-12 03:47 | PN ---
PROGRESS NOTE Acute on chronic anemia of chronic disease. MMODL / IJN: [id number] /
--- NOTE | 2022-07-12 04:47 | PN ---
PROGRESS NOTE DIAGNOSES: Acute on chronic diastolic heart failure as well as prerenal azotemia secondary to malnutrition, dehydration, prerenal factors. MMODL / IJN: [id number] /
--- NOTE | 2022-07-14 09:23 | CDI ---
Documentation Clarification Form Date: 07/14/2022 09:18:00 AM From: Jeane ValdesDOLLY, CCDS Admit Date: 07/03/2022 06:55:00 PM Patient Name: Jeane Urbano Visit Number: [id number] Discharge Date: 07/11/2022 04:00:00 PM ATTENTION: The Clinical Documentation Specialists (CDI) and [facility] Coding Staff appreciate your assistance in clarifying documentation. Please respond to the clarification below the line at the bottom and electronically sign. The CDI & [facility] Coding staff will review the response and follow-up if needed. Please note: Queries are made part of the Legal Health Record. If you have any questions, please contact the author of this message via ITS. Dr. Mohit Harley: Sepsis likely related to UTI is documented in the 07/10 Pulmonary Consult and in subsequent Progress Notes which may lack sufficient clinical evidence/support in the medical record. Additional clarification is requested. 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 Clinical Indicators: Presented to the ED via EMS 07/03 with Altered Mental Status. Admit with Anemia, Decreased responsiveness and Opiate Overdose. Per the 07/06 Attending Progress Note: On Broad spectrum antibiotics for possible UTI vs pneumonia. Abnormal CT: high Procalcitonin. Breathing treatments. Scattered rhonchi & wheeze. 07/03 VS: T 97.6, 97.5; P 82, R 10, 8, 14; BP 127/66, 94/37; PO 91 RA - 97 4Lnc, BMI: 16.1 07/03 LAB: Hgb 9.5, Hct 30.5; BUN 48, Creatinine 2.59, Glucose 111, TIBC 210, Transferrin 150.0, AST 37 BNP not done. 07/03 CXR: Pulmonary venous congestion with borderline cardiomegaly and mild interstitial edema. No sizable effusion. Interstitial infiltrates of other etiology not excluded. Treatment 07/03: Seizure precautions & neuro assessment, Cardiology was not consulted. O2, IV Narcan 0.2 mg x1 & q2M/prn, IV Na Chl 500 mls @ 999 mls/hr q31M, 1,000 mls @ 50 mls/hr q20H. Please clarify if Sepsis related to UTI is a valid diagnosis? [ ] Yes, Sepsis is present as evidence by (additional clinical support): [ ] No, Sepsis is ruled out [ ] Other (please specify diagnosis) [ ] Unable to determine (Template Last Revised: September 2020) MTDD
--- NOTE | 2022-07-14 20:58 | DS ---
DISCHARGE SUMMARY ADDENDUM: Sepsis is ruled in secondary to UTI. MMODL / IJN: [id number] /
--- NOTE | 2022-07-15 07:27 | CDI ---
Documentation Clarification Form Date: 07/15/22 From: Theresa Cedillo Admit Date: 07/03/2022 06:55:00 PM Patient Name: Jeane Urbano Visit Number: [id number] Discharge Date: 07/11/2022 04:00:00 PM ATTENTION: The Clinical Documentation Specialists (CDI) and [facility] Coding Staff appreciate your assistance in clarifying documentation. Please respond to the clarification below the line at the bottom and electronically sign. The CDI & [facility] Coding staff will review the response and follow-up if needed. Please note: Queries are made part of the Legal Health Record. If you have any questions, please contact the author of this message via ITS. Dr. Mohit Harley, Malnutrition is documented in your 07/10 progress note and query response. Additional clarification regarding the severity of malnutrition is requested. History/Risk Factors: HTN w acute on chronic diastolic heart failure, COPD, S/P CVA w left residual hemiparesis, brain aneurysms with coils, seizures, pain pump, HLD, OA, anxiety, depression, paranoid schizophrenia, hx alcohol abuse and former smoker Clinical Indicators: see below Current BMI: 16.1 Insufficient energy intake: increased energy expenditure Total Protein: 7.4, 6.0, 5.9, 6.1, 5.8 Albumin: 3.5, 2.8, 2.7, 2.8, 2.8 Dietary Consult & Treatment: 25% of breakfast tray consumed, increase PO intake from 50% to 75%, needs total assistance with feeding, Supplements: Ensure Enlive TID Please clarify the type of malnutrition and POA, if known: [ ] Mild Protein-Calorie Malnutrition , POA [ ] Moderate Protein-Calorie Malnutrition, POA [ ] Severe Protein-Calorie Malnutrition, POA [ ] Other condition, please specify [ ] Unable to Determine MTDD
--- NOTE | 2022-07-15 07:42 | CDI ---
Documentation Clarification Form Date: 07/15/2022 07:37:00 AM From: Theresa Cedillo Admit Date: 07/03/2022 06:55:00 PM Patient Name: Jeane Urbano Visit Number: [id number] Discharge Date: 07/11/2022 04:00:00 PM ATTENTION: The Clinical Documentation Specialists (CDI) and [facility] Coding Staff appreciate your assistance in clarifying documentation. Please respond to the clarification below the line at the bottom and electronically sign. The CDI & [facility] Coding staff will review the response and follow-up if needed. Please note: Queries are made part of the Legal Health Record. If you have any questions, please contact the author of this message via ITS. Dr. Mohit Harley, Your patient has hypoxia per Dr Tristan's 07/06 consult. Based on this information and the findings below, is there an additional diagnosis that is clinically appropriate for this patient? Patient history/risk factors: HTN w acute on chronic diastolic heart failure, COPD, pneumonia, S/P CVA w left residual hemiparesis, brain aneurysms with coils, seizures, pain pump, HLD, OA, anxiety, depression, paranoid schizophrenia, hx alcohol abuse and former smoker Clinical Indicators: O2 sat: 91 (07/03 RA), 97 (07/03 NC 4L), 93, 94, 93 (07/07 RA), Treatment: Oxygen NC 4L down to room air at discharge Is there an additional diagnosis that is clinically appropriate for this patient? [ ] Acute Hypoxic Respiratory Failure (pO2 <60 mm Hg or SpO2 <91% on room air) [ ] Acute Hypercapnic Respiratory Failure (pCO2 >50 and pH <7.35) [ ] Acute Respiratory Distress [ ] Acute Respiratory Insufficiency [ ] Other, please specify [ ] Unable to determine MTDD
--- NOTE | 2022-07-15 07:55 | CDI ---
Documentation Clarification Form Date: 07/15/22 From: Theresa Cedillo Admit Date: 07/03/2022 06:55:00 PM Patient Name: Jeane Urbano Visit Number: [id number] Discharge Date: 07/11/2022 04:00:00 PM ATTENTION: The Clinical Documentation Specialists (CDI) and [facility] Coding Staff appreciate your assistance in clarifying documentation. Please respond to the clarification below the line at the bottom and electronically sign. The CDI & [facility] Coding staff will review the response and follow-up if needed. Please note: Queries are made part of the Legal Health Record. If you have any questions, please contact the author of this message via ITS. Dr. Mohit Harley, Charly coccyx pressure ulcer stage I (07/04) & coccyx pressure ulcer stage II (07/07) is documented by Wound Care. Based on this information and the findings below, is there an additional diagnosis that is clinically appropriate for this patient? History/Risk Factors: : Bed confinement, HTN w acute on chronic diastolic heart failure, COPD, pneumonia, S/P CVA w left residual hemiparesis, brain aneurysms with coils, seizures, pain pump, HLD, OA, anxiety, depression, paranoid schizophrenia, hx alcohol abuse and former smoker Clinical Indicators: On 07/07 stage changed to Stage II and pink. Location: Coccyx Wound description: pressure injury, POA, stage I Treatment: Zinc barrier cream on 07/10 Is there an additional diagnosis that is clinically appropriate for this patient? [ ] Coccyx Pressure Ulcer Stage 1, POA [ ] Coccyx Pressure Ulcer Stage 2, not POA [ ] Other condition, please specify [ ] Unable to determine Clinical Definitions: Stage 1 Pressure Ulcer: intact skin, non-blanching redness of local area Stage 2 Pressure Ulcer: Partial thickness, loss of dermis, pink wound bed Stage 3 Pressure Ulcer: Full thickness tissue loss Stage 4 Pressure Ulcer: Full thickness tissue loss with exposed bone, tendon, or muscle. Unstageable pressure ulcer: Full thickness tissue loss in which the base of the ulcer is covered by slough (yellow, garcia, vanessa, green or brown) and/or eschar (garcia, brown or black) in the wound bed. MTDD
--- NOTE | 2022-07-15 12:59 | PN ---
PROGRESS NOTE Moderate protein-calorie malnutrition, acute on chronic respiratory failure, coccyx pressure ulcer stage I. MMODL / IJN: [id number] /
== END 2022-07-11 16:00 | disposition home or self-care (01) | DRG 917 ==
LOC: EC 13:59 → 3SCARD 18:55 → 5NMEDONC 07-09 19:35
PROVIDERS: ADMIT Family Medicine; ATTEND Family Medicine
DX: T40.601A Poisoning by unspecified narcotics, accidental (unintentional), initial encounter (principal); A41.9 Sepsis, unspecified organism; G92.8 Other toxic encephalopathy; I50.43 Acute on chronic combined systolic (congestive) and diastolic (congestive) heart failure; J18.9 Pneumonia, unspecified organism; J96.20 Acute and chronic respiratory failure, unspecified whether with hypoxia or hypercapnia; E44.0 Moderate protein-calorie malnutrition; I69.354 Hemiplegia and hemiparesis following cerebral infarction affecting left non-dominant side; F20.0 Paranoid schizophrenia; N39.0 Urinary tract infection, site not specified; Z68.1 Body mass index [BMI] 19.9 or less, adult; I67.1 Cerebral aneurysm, nonruptured; L89.620 Pressure ulcer of left heel, unstageable; L89.91 Pressure ulcer of unspecified site, stage 1; I11.0 Hypertensive heart disease with heart failure; G40.909 Epilepsy, unspecified, not intractable, without status epilepticus; J44.9 Chronic obstructive pulmonary disease, unspecified; D63.8 Anemia in other chronic diseases classified elsewhere; G93.89 Other specified disorders of brain; I69.398 Other sequelae of cerebral infarction; G89.4 Chronic pain syndrome; F10.11 Alcohol abuse, in remission; F32.A Depression, unspecified; F41.9 Anxiety disorder, unspecified; E78.5 Hyperlipidemia, unspecified; E86.0 Dehydration; R32 Unspecified urinary incontinence; R39.2 Extrarenal uremia; R25.1 Tremor, unspecified; M19.90 Unspecified osteoarthritis, unspecified site; Z79.891 Long term (current) use of opiate analgesic; Z79.82 Long term (current) use of aspirin; Z79.890 Hormone replacement therapy; Z79.899 Other long term (current) drug therapy; Z87.891 Personal history of nicotine dependence; Z86.79 Personal history of other diseases of the circulatory system; Z87.440 Personal history of urinary (tract) infections; Z74.01 Bed confinement status
CPT/HCPCS: 36415; 70450; 71046; 71250; 80053; 81001; 83540; 83550; 84145; 84484; 85025; 85610; 85730; 86140; 87040; 93005; 94640; 94760; 96361; 96374; 96376; 99285

== ENCOUNTER 2022-09-22 14:32 | Inpatient (IN) | payer OTHER ==
--- NOTE | 2022-09-22 16:01 | ED ---
General Adult HPI - General Source: patient, family, RN notes reviewed Mode of arrival: wheelchair Limitations: no limitations, altered mental status <Manasa Olivia - Last Filed: 09/22/22 16:19> <Azael Perla - Last Filed: 09/22/22 19:59> - General Chief complaint: Recheck/Abnormal Lab/Rx Stated complaint: Sent by DrSana Time Seen by Provider: 09/22/22 16:00 - History of Present Illness Initial comments: Patient presents to the emergency department for feeding tube and wound care. She was taken out of hospice on Thursday. Patient has not been eating and per Dr. Harley needs a feeding tube that she will gain strength. Patient has bed sores that were healing but are now worsening again due to weakness. No fever, chills, chest pain, shortness of breath, abdominal pain, nausea, vomiting, diarrhea, burning with urination. (Manasa Olivia) 62-year-old female presents with granddaughter and son-in-law. Much history is obtained per son-in-law who is her caregiver and guardian. She apparently has had a decrease in appetite. He relates that she eats very little and oftentimes goes days without eating. She has still been drinking fluids. She has been developing decubitus ULCERS to her sacral region. She also has developed wounds to her bilateral ankles. She was seen by Dr. Harley this past and he recommended that she go to the hospital to get a feeding tube and see wound care. She presents today instead. She has chronic debility including multiple contractures and is bedbound. Much of history is obtained per the son-in-law. He states that her sacral decubitus just started over the past couple days. She's been dealing with ankle wounds for quite some time. There's been no known fevers or chills. She did have a seizure a couple weeks ago and was placed on hospice but then apparently woke up the next day and has been back to her normal state and was just recently taken off of hospice. There is been no chest pain, shortness of breath, abdominal pain, nausea, vomiting, diarrhea, or urinary symptoms. She does wear a diaper. The son-in-law relates that she has had chest congestion at times and has a history of pneumonia 3. No other co mplaints or modifying factors. (Azael Perla) - Related Data Home Medications Medication Instructions Recorded Confirmed Divalproex [Depakote] 500 mg PO DAILY 02/20/22 09/22/22 Divalproex [Depakote] 250 mg PO HS 04/24/22 09/22/22 Lacosamide [Vimpat] 100 mg PO BID 07/03/22 09/22/22 Metoprolol Tartrate [Lopressor] 50 mg PO BID 07/03/22 09/22/22 Sertraline [Zoloft] 25 mg PO DAILY 07/03/22 09/22/22 Sertraline [Zoloft] 100 mg PO DAILY 07/03/22 09/22/22 risperiDONE [RisperDAL] 1 mg PO HS 07/03/22 09/22/22 Cephalexin [Keflex] 500 mg PO BID 09/22/22 09/22/22 oxyCODONE HCL/ACETAMINOPHEN 1 tab PO Q4H 09/22/22 09/22/22 [Percocet 10-325 mg] Allergies Allergy/AdvReac Type Severity Reaction Status Date / Time hydromorphone [From Dilaudid] Allergy Swelling Verified 09/22/22 16:55 morphine Allergy Swelling Verified 09/22/22 16:55 Review of Systems ROS Other: All systems not noted in ROS Statement are negative. <Manasa Olivia - Last Filed: 09/22/22 16:19> ROS Other: All systems not noted in ROS Statement are negative. <Azael Perla - Last Filed: 09/22/22 19:59> ROS Statement: Those systems with pertinent positive or pertinent negative responses have been documented in the HPI. 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 gout, PANCREATITIS, pseudoseizures, UTI, gallstones, tremors, hx multiple brain aneursyms History of Any Multi-Drug Resistant Organisms: None Reported Date of last positivie culture/infection: 03/18/18 ESBL E.coli MDRO Source:: Urine Past Surgical History: Section, Cholecystectomy, Orthopedic Surgery Additional Past Surgical History / Comment(s): hx aneurysms- COILS AND STENTS TO BRAIN, repair tendons r/t gout BILATERAL FEET; Pain pump inserted on 04/21/22 Past Anesthesia/Blood Transfusion Reactions: No Reported Reaction Additional Past Anesthesia/Blood Transfusion Reaction / Comment(s): PT HAS HAD BLOOD TRANSFUSIONS FOR ANEMIA-NO REACTION. Past Psychological History: Anxiety, Depression, Schizophrenia Smoking Status: Former smoker Past Alcohol Use History: Abuse, Heavy Past Drug Use History: Cocaine - Past Family History Sister(s) Family Medical History: Myocardial Infarction ([place]) Father Family Medical History: Cancer Additional Family Medical History / Comment(s): throat, lung, and rectal cancer Mother Family Medical History: Myocardial Infarction ([place]) Additional Family Medical History / Comment(s): stroke <Manasa Olivia - Last Filed: 09/22/22 16:19> General Exam Limitations: no limitations, altered mental status <Manasa Olivia - Last Filed: 09/22/22 16:19> <Azael Perla - Last Filed: 09/22/22 19:59> - General Exam Comments Initial Comments: Visual Physical Exam Vital signs reviewed General: Well-appearing, nontoxic, no acute distress. Head: Normocephalic, atraumatic Eyes: PERRLA, EOMI ENT: Airway patent Chest: Nonlabored breathing Skin: No visual rash, normal skin tone Neuro: Alert and oriented 3 Musculoskeletal: No gross abnormalities (Manasa Olivia) GENERAL: The patient is well nourished and well hydrated. VITAL SIGNS: Heart rate, blood pressure, respiratory rate reviewed as recorded in nurse's notes. EYES: Pupils are round and reactive. Extraocular movements are intact. No conjunctival / lid redness or swelling. ENT: No external evidence of injury, swelling, or ecchymosis. Airway is patent. Throat is clear. NECK: Nontender. No swelling or evidence of injury. No subcutaneous emphysema. Trachea is midline. No thyroid mass. HEART: Regular rate and rhythm. Good peripheral pulses. LUNGS/CHEST: Breath sounds clear and equal bilaterally. No rales, rhonchi, or wheezes. No ecchymosis, subcutaneous emphysema, or tenderness. ABDOMEN: Abdomen soft without tenderness. No palpable masses or organomegaly. No peritoneal signs. No abdominal wall swelling or ecchymosis. EXTREMITIES: No extremity tenderness. Multiple contractions noted to the upper and lower extremities. No thoracolumbar tenderness. NEUROLOGIC: Sensation is grossly intact. Cranial nerve exam reveals face is symmetrical, tongue is midline, speech is clear. SKIN: No abrasions or ecchymosis is noted. No induration or masses noted. There is a fairly deep slightly draining ulcer noted to the right ankle region. There is a superficial ulcer noted to the lateral left ankle. There is a superficial likely stage II sacral decubitus ulcer. PSYCHIATRIC: Alert and oriented. Appropriate behavior and judgment. (Azael Perla) Course Vital Signs 09/22/22 09/22/22 14:34 17:20 Temperature 97.7 F Pulse Rate 103 H 80 Respiratory 16 18 Rate Blood Pressure 124/82 127/82 O2 Sat by Pulse 98 99 Oximetry Medical Decision Making - Lab Data Result diagrams: 09/22/22 17:22 <Azael Perla - Last Filed: 09/22/22 19:59> - Medical Decision Making Was pt. sent in by a medical professional or institution (, PA, STUD SETTER, urgent care, hospital, or fci...) When possible be specific @ -The patient was sent in by primary care physician. Did you speak to anyone other than the patient for history (EMS, parent, family, police, friend...)? What history was obtained from this source @ -The son-in-law gives most of the patient's history. Did you review nursing and triage notes (agree or disagree)? Why? @ -[I reviewed and agree with nursing and triage notes] Were old charts reviewed (outside hosp., previous admission, EMS record, old EKG, old radiological studies, urgent care reports/EKG's, fci records)? Report findings @ -Old records were reviewed to gain better understanding a past medical history. Differential Diagnosis (chest pain, altered mental status, abdominal pain women, abdominal pain men, vaginal bleeding, weakness, fever, dyspnea, syncope, headache, dizziness, GI bleed, back pain, seizure, CVA, palpatations, mental health, musculoskeletal)? @ -Pneumonia, weakness, sepsis, urinary tract infection EKG interpreted by me (3pts min.). @ -EKG is interpreted by myself and shows a normal sinus rhythm. There is evidence of old septal myocardial infarction. There is some flattened T waves n oted with mild artifact. OR interval is 149, QRS duration is 77, and the QTc interval 377. X-rays interpreted by me (1pt min.). @ -The x-ray is interpreted by myself and does show some atelectatic changes and radiologist does agree. CT interpreted by me (1pt min.). @ -[None done] U/S interpreted by me (1pt. min.). @ -[None done] What testing was considered but not performed or refused? (CT, X-rays, U/S, labs)? Why? @ -[None] What meds were considered but not given or refused? Why? @ -[None] Did you discuss the management of the patient with other professionals (professionals i.e. , PA, STUD SETTER, lab, RT, psych nurse, director social welfare, corporate strategy associate, teacher, complaint investigations officer, wrapper caser)? Give summary @ -Case is discussed with internal medicine and was agreeable with admission. Was smoking cessation discussed for >3mins.? @ -[No] Was critical care preformed (if so, how long)? @ -[No] Were there social determinants of health that impacted care today? How? (Homelessness, low income, unemployed, alcoholism, drug addiction, transportation, low edu. Level, literacy, decrease access to med. care, prison, rehab)? @ -[No] Was there de-escalation of care discussed even if they declined (Discuss DNR or withdrawal of care, Hospice)? DNR status @ -[No] What co-morbidities impacted this encounter? (DM, HTN, Smoking, COPD, CAD, Cancer, CVA, ARF, Chemo, Hep., AIDS, mental health diagnosis, sleep apnea, morbi d obesity)? @ -The patient does have a history of previous CVA and is currently bedbound. She also has a history of seizures. Was patient admitted / discharged? Hospital course, mention meds given and route, prescriptions, significant lab abnormalities, going to OR and other pertinent info. @ -The patient was sent in by her doctor for admission. They feel as though she needs a PEG tube placement and also benefit from seeing the wound care service in regard to her bed sores. She had laboratory drawn but some of her blood work did coagulate and she is very difficult IV stick. She had some hypomagnesemia on initial laboratory and her magnesium is replaced. Nursing staff could not obtain IV access. They attempted with ultrasound and water unable to obtain IV access. Therefore, the patient was prepped and draped in usual sterile fashion utilizing a bedside ultrasound and IV access was obtained by physician in the right forearm. No complications were encountered. Additional blood was sent to laboratory for analysis. There is significant delay in admission due to poor IV access and patient may benefit from Mediport placement in the future. Internal medicine has been paged and case will be discussed with him in regards to admission with surgical consultation for PEG tube placement. Undiagnosed new problem with uncertain prognosis? @ -[No] Drug Therapy requiring intensive monitoring for toxicity (Heparin, Nitro, Insulin, Cardizem)? @ -[No] Were any procedures done? @ -IV peripheral line placement via physician. Diagnosis/symptom? @ -Malnutrition, failure to thrive, decubitus ulcers Acute, or Chronic, or Acute on Chronic? @ -Chronic Uncomplicated (without systemic symptoms) or Complicated (systemic symptoms)? @ -Uncomplicated Side effects of treatment? @ -[No] Exacerbation, Progression, or Severe Exacerbation? @ -[No] Poses a threat to life or bodily function? How? (Chest pain, [place], [place], pneumonia, PE, COPD, DKA, ARF, appy, cholecystitis, CVA, Diverticulitis, Homicidal, Suicidal, threat to staff... and all critical care pts) @ -[No] (Azael Perla) - Lab Data Lab Results 09/22/22 Range/Units 17:22 Sodium 137 (137-145) mmol/L Potassium 4.9 (3.5-5.1) mmol/L Chloride 106 (98-107) mmol/L Carbon Dioxide 22 (22-30) mmol/L Anion Gap 9 mmol/L BUN 23 H (7-17) mg/dL Creatinine 0.70 (0.52-1.04) mg/dL Est GFR (CKD-EPI)AfAm >90 (>60 ml/min/1.73 sqM) Est GFR (CKD-EPI)NonAf >90 (>60 ml/min/1.73 sqM) Glucose 101 H (74-99) mg/dL Calcium 8.9 (8.4-10.2) mg/dL Phosphorus 3.0 (2.5-4.5) mg/dL Magnesium 1.3 L (1.6-2.3) mg/dL Total Bilirubin 0.5 (0.2-1.3) mg/dL AST 29 (14-36) U/L ALT 15 (4-34) U/L Alkaline Phosphatase 99 (38-126) U/L Total Protein 7.3 (6.3-8.2) g/dL Albumin 3.3 L (3.5-5.0) g/dL Lipase 21 L (23-300) U/L TSH 4.960 H (0.465-4.680) mIU/L Disposition <Manasa Olivia - Last Filed: 09/22/22 16:19> Is patient prescribed a controlled substance at d/c from ED?: No Time of Disposition: 19:51 Decision Date: 09/22/22 Decision Time: 19:51 <Azael Perla - Last Filed: 09/22/22 19:59> Clinical Impression: Decreased appetite, Dehydration, Physical debility, Muscle contracture, Decubitus skin ulcer, Hypomagnesemia Disposition: ADMITTED IP TO THIS HOSP Condition: Fair
[2022-09-22] MEDS ORDERED: SODIUM CHLORIDE 0.9% 1,000 ML IV STA (16:43)
[2022-09-22 18:23] LABS: ALT 15 U/L (4-34); AST 29 U/L (14-36); African American GFR (CKD) >90 (>60 ml/min/1.73 sqM); Albumin 3.3 g/dL (3.5-5.0); Alkaline Phosphatase 99 U/L (38-126); Anion Gap 9 mmol/L; Blood Urea Nitrogen 23 mg/dL (7-17); Calcium 8.9 mg/dL (8.4-10.2); Carbon Dioxide 22 mmol/L (22-30); Chloride 106 mmol/L (98-107); Glucose 101 mg/dL (74-99); Lipase 21 U/L (23-300); Magnesium 1.3 mg/dL (1.6-2.3); Non-African American GFR(CKD) >90 (>60 ml/min/1.73 sqM); Potassium 4.9 mmol/L (3.5-5.1); Sodium 137 mmol/L (137-145); Total Bilirubin 0.5 mg/dL (0.2-1.3); Total Protein 7.3 g/dL (6.3-8.2)
--- NOTE | 2022-09-22 18:54 | XR ---
EXAMINATION TYPE: XR chest 2V DATE OF EXAM: 09/22/2022 COMPARISON: 07/13/2022 HISTORY: Weakness TECHNIQUE: FINDINGS: There is mild subsegmental atelectasis left lung base. No heart failure seen. Minimal right -sided perihilar atelectasis. Heart size is normal. No pleural effusion. Bony thorax is intact. There is probably old healed fracture left clavicle. IMPRESSION: Mild bilateral subsegmental atelectasis. This appears slightly increased compared to old exams
[2022-09-22] MEDS ORDERED: NALOXONE 0.4 MG/ML 1 ML VIAL IV PRN (19:59)
[2022-09-22] MEDS ORDERED: ONDANSETRON 4 MG/2 ML VIAL IVP PRN (19:59)
[2022-09-22] MEDS: MAGNESIUM SULFATE-D5W PMX 1 GM in DEXTROSE/WATER 1 100ML.BAG IVPB SCH ×2 (20:01→20:42)
[2022-09-22] MEDS: SODIUM CHLORIDE 0.9% 1,000 ML IV STA ×2 (20:01→22:26)
[2022-09-22 20:09] LABS: Anisocytosis Moderate; HCT 29.1 % (34.0-46.0); HGB 8.8 gm/dL (11.4-16.0); Hypochromasia Marked; MCH 24.8 pg (25.0-35.0); MCHC 30.2 g/dL (31.0-37.0); MCV 82.2 fL (80.0-100.0); Mean Platelet Volume 8.2; Microcytosis Slight; Poikilocytosis Slight; RBC 3.54 m/uL (3.80-5.40); RDW 20.1 % (11.5-15.5); WBC 12.5 k/uL (3.8-10.6)
[2022-09-22 20:24] LABS: Prothrombin Time 10.4 sec (9.0-12.0)
[2022-09-22] MEDS ORDERED: CEPHALEXIN 500 MG CAP PO SCH (21:00)
[2022-09-22 21:02] LABS: Lymphocytes # (M) 3.38 k/uL (1.0-4.8); Monocytes # (M) 1.25 k/uL (0-1.0); Neutrophils # (M) 7.88 k/uL (1.3-7.7); Neutrophils % (M) 63 %; Nucleated Red Blood Cells 0 /100 WBC (0-0); Total Cells Counted 100
[2022-09-22 21:05] LABS: Target Cells Present
[2022-09-22 21:06] LABS: Ovalocytes Present; Tear Drop Cells Present
[2022-09-22 21:07] LABS: RBC Fragments Present
[2022-09-22 22:14] LABS: Glucose,Whole Blood 98 mg/dL (70-110)
[2022-09-22] MEDS: PANTOPRAZOLE 40 MG/10 ML VIAL IV SCH (22:24)
[2022-09-22] MEDS: LACOSAMIDE 50 MG TABLET PO SCH (22:25)
[2022-09-22] MEDS: oxyCODONE-APAP 10-325MG 1 EACH TAB PO SCH (22:25)
[2022-09-22] MEDS: DIVALPROEX 250 MG TABLET.DR PO SCH (22:26)
[2022-09-22] MEDS: METOPROLOL TARTRATE 50 MG TAB PO SCH (22:26)
[2022-09-22] MEDS: risperiDONE 1 MG TAB PO SCH (23:20)
[2022-09-23] MEDS: oxyCODONE-APAP 10-325MG 1 EACH TAB PO SCH ×7 (04:59→23:35)
[2022-09-23] MEDS: SODIUM CHLORIDE 0.9% 1,000 ML IV SCH ×3 (07:38→20:28)
[2022-09-23] MEDS: METOPROLOL TARTRATE 50 MG TAB PO SCH ×2 (09:17→20:20)
[2022-09-23] MEDS: SERTRALINE 100 MG TAB PO SCH (09:17)
[2022-09-23] MEDS: SERTRALINE 25 MG TAB PO SCH (09:17)
[2022-09-23] MEDS: ENOXAPARIN 40 MG/0.4 ML SYRINGE SQ SCH (09:20)
[2022-09-23] MEDS: DIVALPROEX 500 MG TABLET.DR PO SCH (09:20)
[2022-09-23] MEDS: LACOSAMIDE 50 MG TABLET PO SCH ×2 (09:21→20:21)
[2022-09-23] MEDS: PANTOPRAZOLE 40 MG/10 ML VIAL IV SCH (10:57)
--- NOTE | 2022-09-23 11:46 | P.CONS ---
History of Present Illness - Reason for Consult Consult date: 09/23/22 wound care - History of Present Illness This is a 62-year-old patient known to the wound care center with past medical history significant for CVA, hyperlipidemia, hypertension. Patient has unstageable ulceration to the left heel, a open ulceration to the left lower extremity lateral aspect with fat layer exposed, a right heel ulceration that is a stage I, a right lower extremity posterior and lateral ulceration that is fat layer, a stage II pressure ulcer to the coccyx and a stage III pressure ulcer to the left ear. All open ulceration show eschar with minimal granulation. Review Of Systems: Constitutional: No fever, no chills, no night sweats. No weight change. No weakness, fatigue or lethargy. No daytime sleepiness. Integumentary:reports wounds, no lesions. No rash or pruritus. No unusual bruising. No change in hair or nails. Physical exam: General Appearance: Alert, cooperative, no distress, appears stated age. Skin: See HPI all other Skin color, texture, tugor normal, no rashes or lesions. Neurologic: Alert oriented x3 Assessment: 1. Left heel ulceration unstageable 2. Nonhealing ulceration left calf fat layer exposed 3. Right lower extremity to right calf with fat layer exposed 4. Right lower extremity other site with fat layer exposed 5. Stage II pressure ulcer 6. Pressure ulcer stage III left ear Plan: 1. Apply honey gel to all open ulceration and border foam. He changed Thursday. Patient would benefit from continued wound care. We will be happy to see patient wound care center upon discharge. Thank you for the consultation any questions please contact the wound care center DNP note has been reviewed and discussed with Dr. Riddle and the impression and plan of care has been directed as dictated. 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 Past Psychological History: Anxiety, Depression, Schizophrenia Additional Psychological History / Comment(s): paranoid schizophrenia Smoking Status: Former smoker Past Alcohol Use History: Abuse, Heavy Additional Past Alcohol Use History / Comment(s): Stopped smoking 2010 Past Drug Use History: Cocaine Additional Drug Use History / Comment(s): No current use. Last used 17 yrs ago. - Past Family History Sister(s) Family Medical History: Myocardial Infarction ([place]) Father Family Medical History: Cancer Additional Family Medical History / Comment(s): throat, lung, and rectal cancer Mother Family Medical History: Myocardial Infarction ([place]) Additional Family Medical History / Comment(s): stroke Medications and Allergies Home Medications Medication Instructions Recorded Confirmed Type Divalproex [Depakote] 500 mg PO DAILY 02/20/22 09/22/22 History Divalproex [Depakote] 250 mg PO HS 04/24/22 09/22/22 History Lacosamide [Vimpat] 100 mg PO BID 07/03/22 09/22/22 History Metoprolol Tartrate [Lopressor] 50 mg PO BID 07/03/22 09/22/22 History Sertraline [Zoloft] 25 mg PO DAILY 07/03/22 09/22/22 History Sertraline [Zoloft] 100 mg PO DAILY 07/03/22 09/22/22 History risperiDONE [RisperDAL] 1 mg PO HS 07/03/22 09/22/22 History Cephalexin [Keflex] 500 mg PO BID 09/22/22 09/22/22 History oxyCODONE HCL/ACETAMINOPHEN 1 tab PO Q4H 09/22/22 09/22/22 History [Percocet 10-325 mg] Allergies Allergy/AdvReac Type Severity Reaction Status Date / Time hydromorphone [From Dilaudid] Allergy Swelling Verified 09/22/22 16:55 morphine Allergy Swelling Verified 09/22/22 16:55 Physical Exam Vitals: Vital Signs Temp Pulse Pulse Resp BP BP Pulse Ox 09/23/22 10:30 68 128/81 96 02/28/23 07:49 98.4 F 90 17 167/118 100 09/23/22 02:17 97.8 F 86 18 122/78 96 09/23/22 00:00 18 09/22/22 20:39 73 16 115/74 93 L 09/22/22 17:20 80 18 127/82 99 09/22/22 14:34 97.7 F 103 H 16 124/82 98 Intake and Output 09/22/22 09/23/22 09/23/22 22:59 06:59 14:59 Output Total 0 0 Balance 0 0 Output: Urine 0 0 Other: Voiding Method External Catheter Weight 47.627 kg Results CBC & Chem 7: 09/22/22 19:53 09/22/22 17:22 Labs: Abnormal Lab Results - Last 24 Hours (Table) 09/22/22 09/22/22 Range/Units 17:22 19:53 WBC 12.5 H (3.8-10.6) k/uL RBC 3.54 L (3.80-5.40) m/uL Hgb 8.8 L (11.4-16.0) gm/dL Hct 29.1 L (34.0-46.0) % MCH 24.8 L (25.0-35.0) pg MCHC 30.2 L (31.0-37.0) g/dL RDW 20.1 H (11.5-15.5) % Neutrophils # (Manual) 7.88 H (1.3-7.7) k/uL Monocytes # (Manual) 1.25 H (0-1.0) k/uL BUN 23 H (7-17) mg/dL Glucose 101 H (74-99) mg/dL Magnesium 1.3 L (1.6-2.3) mg/dL Albumin 3.3 L (3.5-5.0) g/dL Lipase 21 L (23-300) U/L TSH 4.960 H (0.465-4.680) mIU/L Assessment and Plan (1) Pressure ulcer, heel, left, unstageable Current Visit: Yes Status: Acute Code(s): L89.620 - PRESSURE ULCER OF LEFT HEEL, UNSTAGEABLE SNOMED Code(s): 78274227526529 (2) Non-pressure chronic ulcer of left calf with fat layer exposed Current Visit: Yes Status: Acute Code(s): L97.222 - NON-PRESSURE CHRONIC ULCER OF LEFT CALF W FAT LAYER EXPOSED SNOMED Code(s): 72608094045420788 (3) Non-pressure chronic ulcer of right calf with fat layer exposed Current Visit: Yes Status: Acute Code(s): L97.212 - NON-PRESSURE CHRONIC ULCER OF RIGHT CALF W FAT LAYER EXPOSED SNOMED Code(s): 49655441127385928 (4) Non-pressure chronic ulcer of other part of right lower leg with fat layer exposed Current Visit: Yes Status: Acute Code(s): L97.812 - NON-PRS CHRONIC ULCER OTH PRT R LOW LEG W FAT LAYER EXPOSED SNOMED Code(s): 77848337265678746 (5) Pressure injury of right heel, stage 1 Current Visit: Yes Status: Acute Code(s): L89.611 - PRESSURE ULCER OF RIGHT HEEL, STAGE 1 SNOMED Code(s): 20842040914922 (6) Pressure ulcer of other site, stage 3 Current Visit: Yes Status: Acute Code(s): L89.893 - PRESSURE ULCER OF OTHER SITE, STAGE 3 SNOMED Code(s): 4463882536
--- NOTE | 2022-09-23 13:30 | P.GSCN ---
History of Present Illness Consult date: 09/23/22 History of present illness: CHIEF COMPLAINT: Failure to thrive HISTORY OF PRESENT ILLNESS: This is a 62-year-old female with a known history of stroke, chronic pain and prior EtOH abuse. She is bedridden. Patient initially on hospice and was removed from hospice on Thursday. Patient presented to the ER for PEG tube placement as well as wound care. Most the patient's history is obtained from the son-in-law who is the caregiver. He reports that the patient's appetite is decreased. She is able to eat but the intake of food is poor. He reports that she has been bedbound for about 2 years. Patient is contracted in the upper and lower extremities. She is unable to walk. She is being seen by wound care service regarding skin breakdown. Patient seen and examined with Dr. Herrera PAST MEDICAL HISTORY: See below PAST SURGICAL HISTORY: See below and cholecystectomy. Patient does have pain pump left side of abdomen MEDICATIONS: See below ALLERGIES: See below SOCIAL HISTORY: No illicit drug use. REVIEW OF SYSTEMS: CONSTITUTIONAL: Denies fever or chills. HEENT: Denies blurred vision, vision changes, or eye pain. Denies hemoptysis CARDIOVASCULAR: Denies chest pain or pressure. RESPIRATORY: No shortness of breath. GASTROINTESTINAL: See HPI for pertinent findings HEMATOLOGIC: Denies bleeding disorders. GENITOURINARY: Denies any blood in urine or increased urinary frequency. SKIN: Denies pruitis. Denies rash. PHYSICAL EXAM: VITAL SIGNS: Reviewed GENERAL: Well-developed in no acute distress. HEENT: No sclera icterus. Extraocular movements grossly intact. Moist buccal mucosa. Head is atraumatic, normocephalic. No nasal drainage. ABDOMEN: Soft. Nondistended. Nontender NEUROLOGIC: Alert and orientated to name and place LABORATORY DATA: WBC 12.5 Hgb 8.8 platelets unable to verify Sodium 137 potassium 4.9 creatinine 0.70 Magnesium 1.3 Repeat Mg 2.0 LFTs normal TSH 4.960 Albumin 3.3 IMAGING: Chest x-ray mild bilateral subsegmental atelectasis. This appears slightly increased compared to old exams. ASSESSMENT: 1. Failure to thrive 2. Moderate protein calorie malnutrition 3. History of CVA 4. Hypomagnesemia improved PLAN: -Patient scheduled for PEG tube placement tomorrow with Dr. Herrera -Keep patient nothing by mouth after midnight Thank you for this consultation Physician Ward Assistant note has been reviewed by physician. Signing provider agrees with the documented findings, assessment, and plan of care. 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 Past Psychological History: Anxiety, Depression, Schizophrenia Additional Psychological History / Comment(s): paranoid schizophrenia Smoking Status: Former smoker Past Alcohol Use History: Abuse, Heavy Additional Past Alcohol Use History / Comment(s): Stopped smoking 2010 Past Drug Use History: Cocaine Additional Drug Use History / Comment(s): No current use. Last used 17 yrs ago. - Past Family History Sister(s) Family Medical History: Myocardial Infarction ([place]) Father Family Medical History: Cancer Additional Family Medical History / Comment(s): throat, lung, and rectal cancer Mother Family Medical History: Myocardial Infarction ([place]) Additional Family Medical History / Comment(s): stroke Medications and Allergies Home Medications Medication Instructions Recorded Confirmed Type Divalproex [Depakote] 500 mg PO DAILY 02/20/22 09/22/22 History Divalproex [Depakote] 250 mg PO HS 04/24/22 09/22/22 History Lacosamide [Vimpat] 100 mg PO BID 07/03/22 09/22/22 History Metoprolol Tartrate [Lopressor] 50 mg PO BID 07/03/22 09/22/22 History Sertraline [Zoloft] 25 mg PO DAILY 07/03/22 09/22/22 History Sertraline [Zoloft] 100 mg PO DAILY 07/03/22 09/22/22 History risperiDONE [RisperDAL] 1 mg PO HS 07/03/22 09/22/22 History Cephalexin [Keflex] 500 mg PO BID 09/22/22 09/22/22 History oxyCODONE HCL/ACETAMINOPHEN 1 tab PO Q4H 09/22/22 09/22/22 History [Percocet 10-325 mg] Allergies Allergy/AdvReac Type Severity Reaction Status Date / Time hydromorphone [From Dilaudid] Allergy Swelling Verified 09/22/22 16:55 morphine Allergy Swelling Verified 09/22/22 16:55 Surgical - Exam Vital Signs Temp Pulse Resp BP Pulse Ox 97.7 F 103 H 16 124/82 98 09/22/22 14:34 09/22/22 14:34 09/22/22 14:34 09/22/22 14:34 09/22/22 14:34 Results - Labs 09/22/22 19:53 09/22/22 17:22 Abnormal Lab Results - Last 24 Hours (Table) 09/22/22 09/22/22 Range/Units 17:22 19:53 WBC 12.5 H (3.8-10.6) k/uL RBC 3.54 L (3.80-5.40) m/uL Hgb 8.8 L (11.4-16.0) gm/dL Hct 29.1 L (34.0-46.0) % MCH 24.8 L (25.0-35.0) pg MCHC 30.2 L (31.0-37.0) g/dL RDW 20.1 H (11.5-15.5) % Neutrophils # (Manual) 7.88 H (1.3-7.7) k/uL Monocytes # (Manual) 1.25 H (0-1.0) k/uL BUN 23 H (7-17) mg/dL Glucose 101 H (74-99) mg/dL Magnesium 1.3 L (1.6-2.3) mg/dL Albumin 3.3 L (3.5-5.0) g/dL Lipase 21 L (23-300) U/L TSH 4.960 H (0.465-4.680) mIU/L Diabetes panel 09/22/22 Range/Units 17:22 Sodium 137 (137-145) mmol/L Potassium 4.9 (3.5-5.1) mmol/L Chloride 106 (98-107) mmol/L Carbon Dioxide 22 (22-30) mmol/L BUN 23 H (7-17) mg/dL Creatinine 0.70 (0.52-1.04) mg/dL Glucose 101 H (74-99) mg/dL Calcium 8.9 (8.4-10.2) mg/dL AST 29 (14-36) U/L ALT 15 (4-34) U/L Alkaline Phosphatase 99 (38-126) U/L Total Protein 7.3 (6.3-8.2) g/dL Albumin 3.3 L (3.5-5.0) g/dL Thyroid panel 09/22/22 Range/Units 17:22 TSH 4.960 H (0.465-4.680) mIU/L Calcium panel 09/22/22 Range/Units 17:22 Calcium 8.9 (8.4-10.2) mg/dL Phosphorus 3.0 (2.5-4.5) mg/dL Albumin 3.3 L (3.5-5.0) g/dL Pituitary panel 09/22/22 Range/Units 17:22 Sodium 137 (137-145) mmol/L Potassium 4.9 (3.5-5.1) mmol/L Chloride 106 (98-107) mmol/L Carbon Dioxide 22 (22-30) mmol/L BUN 23 H (7-17) mg/dL Creatinine 0.70 (0.52-1.04) mg/dL Glucose 101 H (74-99) mg/dL Calcium 8.9 (8.4-10.2) mg/dL TSH 4.960 H (0.465-4.680) mIU/L Adrenal panel 09/22/22 Range/Units 17:22 Sodium 137 (137-145) mmol/L Potassium 4.9 (3.5-5.1) mmol/L Chloride 106 (98-107) mmol/L Carbon Dioxide 22 (22-30) mmol/L BUN 23 H (7-17) mg/dL Creatinine 0.70 (0.52-1.04) mg/dL Glucose 101 H (74-99) mg/dL Calcium 8.9 (8.4-10.2) mg/dL Total Bilirubin 0.5 (0.2-1.3) mg/dL AST 29 (14-36) U/L ALT 15 (4-34) U/L Alkaline Phosphatase 99 (38-126) U/L Total Protein 7.3 (6.3-8.2) g/dL Albumin 3.3 L (3.5-5.0) g/dL
[2022-09-23 13:57] VITALS: BMI 19.8
[2022-09-23] MEDS: DIVALPROEX 250 MG TABLET.DR PO SCH (20:22)
[2022-09-23] MEDS: risperiDONE 1 MG TAB PO SCH (20:22)
[2022-09-23] MEDS: SCOPOLAMINE 1 MG/72 HR PATCH TRANSDERM SCH (23:35)
[2022-09-24] MEDS: oxyCODONE-APAP 10-325MG 1 EACH TAB PO SCH ×5 (04:27→22:14)
[2022-09-24 07:52] LABS: African American GFR (CKD) >90 (>60 ml/min/1.73 sqM); Anion Gap 5 mmol/L; Blood Urea Nitrogen 14 mg/dL (7-17); Calcium 7.9 mg/dL (8.4-10.2); Carbon Dioxide 20 mmol/L (22-30); Chloride 115 mmol/L (98-107); Glucose 69 mg/dL (74-99); Magnesium 1.8 mg/dL (1.6-2.3); Non-African American GFR(CKD) >90 (>60 ml/min/1.73 sqM); Potassium 4.4 mmol/L (3.5-5.1); Sodium 140 mmol/L (137-145)
[2022-09-24 08:04] LABS: Anisocytosis Moderate; HCT 23.8 % (34.0-46.0); HGB 7.2 gm/dL (11.4-16.0); Hypochromasia Marked; MCH 25.2 pg (25.0-35.0); MCHC 30.4 g/dL (31.0-37.0); MCV 82.9 fL (80.0-100.0); Mean Platelet Volume 9.6; Microcytosis Slight; Platelet Count 270 k/uL (150-450); Poikilocytosis Slight; RBC 2.87 m/uL (3.80-5.40); RDW 20.4 % (11.5-15.5); WBC 8.6 k/uL (3.8-10.6)
[2022-09-24 09:18] LABS: Appearance,Urine Clear (Clear); Bacteria,Urine Rare /hpf; Bilirubin,Urine Negative (Negative); Blood,Urine Negative (Negative); Color,Urine Yellow; Glucose,Urine (UA) Negative (Negative); Ketones,Urine Negative (Negative); Leukocyte Esterase,Urine Small (Negative); Nitrite,Urine Negative (Negative); Protein,Urine Negative (Negative); RBC,Urine 1 /hpf (0-5); Specific Gravity,Urine 1.017 (1.001-1.035); Squamous Epithelial Cell,Urine 4 /hpf (0-4); WBC,Urine 13 /hpf (0-5)
[2022-09-24] MEDS: SODIUM CHLORIDE 0.9% 1,000 ML IV SCH (09:53)
[2022-09-24] MEDS: SERTRALINE 25 MG TAB PO SCH (10:44)
[2022-09-24] MEDS: SERTRALINE 100 MG TAB PO SCH (10:44)
[2022-09-24] MEDS: ENOXAPARIN 40 MG/0.4 ML SYRINGE SQ SCH (10:45)
[2022-09-24] MEDS: LACOSAMIDE 50 MG TABLET PO SCH ×2 (10:45→22:15)
[2022-09-24] MEDS: DIVALPROEX 500 MG TABLET.DR PO SCH (10:45)
[2022-09-24] MEDS: METOPROLOL TARTRATE 50 MG TAB PO SCH ×2 (10:45→22:15)
[2022-09-24] MEDS: PANTOPRAZOLE 40 MG/10 ML VIAL IV SCH (10:45)
--- NOTE | 2022-09-24 11:40 | P.PN ---
Subjective Progress Note Date: 09/24/22 CHIEF COMPLAINT: Failure to thrive HISTORY OF PRESENT ILLNESS: Patient is scheduled for modified barium swallow eval today. Per the son-in-law patient's oral intake has been decreased and sometimes she has difficulty swallowing. She retains food in her mouth. Denies any abdominal pain. Afebrile. WBC is 8.6 Hgb 7.2 platelets 270 sodium 140 potassium 4.4 creatinine 0.66 magnesium 1.8 PHYSICAL EXAM: VITAL SIGNS: Reviewed. GENERAL:no acute distress. ABDOMEN: Soft. Nondistended. Nontender. NEUROLOGIC: Awake and able to answer some questions ASSESSMENT: 1. Failure to thrive 2. Moderate protein calorie malnutrition 3. History of CVA 4. Hypomagnesemia improved PLAN: -PEG tube placement will be postponed until tomorrow. Awaiting modified barium swallow eval Physician Apricot Packer note has been reviewed by physician. Signing provider agrees with the documented findings, assessment, and plan of care. Objective - Vital Signs Vital signs: Vital Signs Temp 98.3 F 09/24/22 07:24 Pulse 96 09/24/22 08:41 Resp 17 09/24/22 07:24 BP 143/90 09/24/22 08:41 Pulse Ox 100 09/24/22 07:24 FiO2 Intake & Output 09/23/22 09/24/22 09/24/22 18:59 06:59 18:59 Intake Total 600 Output Total 400 300 Balance 200 -300 Weight 47.627 kg Intake: Intake, IV Titration 600 Amount Sodium Chloride 0.9% 1, 600 000 ml @ 75 mls/hr IV . [id number] SHAR Rx#:[id number] Output: Urine 400 300 Other: Voiding Method External Catheter External Catheter # Voids 1 - Labs CBC & Chem 7: 09/24/22 06:08 09/24/22 06:08 Labs: Abnormal Lab Results - Last 24 Hours (Table) 09/22/22 09/24/22 09/24/22 Range/Units 08:32 06:08 06:08 RBC 2.87 L (3.80-5.40) m/uL Hgb 7.2 L D (11.4-16.0) gm/dL Hct 23.8 L (34.0-46.0) % MCHC 30.4 L (31.0-37.0) g/dL RDW 20.4 H (11.5-15.5) % Chloride 115 H (98-107) mmol/L Carbon Dioxide 20 L (22-30) mmol/L Glucose 69 L (74-99) mg/dL Calcium 7.9 L (8.4-10.2) mg/dL Ur Leukocyte Esterase Small H (Negative) Urine WBC 13 H (0-5) /hpf Urine Bacteria Rare H (None) /hpf
--- NOTE | 2022-09-24 15:40 | FL ---
EXAMINATION TYPE: FL barium swallow w video DATE OF EXAM: 09/24/2022 COMPARISON: NONE HISTORY: Aspiration TECHNIQUE: Fluoroscopy. FINDINGS: Fluoroscopic guidance was provided for the procedure performed in conjunction with the [facility] pathology department. Please see complete report forthcoming from the Speech Pathology departmen t. Various consistencies from thin liquid to solids were administered. Fluoroscopy time 2 minutes 3 seconds. Number of images: 240 X line 50 8P: 168.56 No aspiration or penetration was evident. No significant pooling was observed in the vallecula. There was marked delay of oral bolus formation especially noted with pudding thick and honey thick co nsistencies IMPRESSION: 1. No aspiration or penetration evident.
--- NOTE | 2022-09-24 21:35 | P.CONS ---
History of Present Illness - Reason for Consult Consult date: 09/24/22 Leg wounds, leukocytosis Requesting physician: Mohit Harley - Chief Complaint Weakness and failure to thrive x days - History of Present Illness Patient is a 62-year-old -[place] female with multiple comorbidities including stroke chronic pain in this patient who is a bedbound and did have multiple contracture patient has been brought into the hospital for decreased appetite and possible placement for PEG tube apparently the patient was on hospice however the patient seemed to have some clinical improvement and improvement in her mentation so the family decided to take her out of the hospice patient did have decreased appetite and oral intake as the patient was brought to the hospital for a PEG tube placement patient on presentation to the hospital was afebrile and no fever has been recorded subsequently patient did have a white count of 12.5 on admission that has subsequently normalized kidney function has been normal liver enzymes are normal urine has been relatively negative urine culture is currently pending patient did have a chest x-ray mild bibasilar atelectasis infectious disease was consulted last night for leg wounds, patient currently do have a pressure ulcer to bilateral lower extremity especially to the left foot heel area which is covered with a dry scab patient to have pain to her lower extremity wound area but denies having any worsening there is no surrounding swelling redness or any drainage patient also have a sacral pressure ulcer currently with some mild leaking pain but no drainage Review of Systems Positive point has been mentioned in the HPI rest of the systems are negative Past Medical History Past Medical History: CVA/TIA, Hyperlipidemia, Hypertension, Osteoarthritis (OA) Additional Past Medical History / Comment(s): ANEMIA, CVA WITH L ARM WEAKNESS AND bilateral LEG WEAKNESS, hx. 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 Past Psychological History: Anxiety, Depression, Schizophrenia Additional Psychological History / Comment(s): paranoid schizophrenia Smoking Status: Former smoker Past Alcohol Use History: Abuse, Heavy Additional Past Alcohol Use History / Comment(s): Stopped smoking 2010 Past Drug Use History: Cocaine Additional Drug Use History / Comment(s): No current use. Last used 17 yrs ago. - Past Family History Sister(s) Family Medical History: Myocardial Infarction ([place]) Father Family Medical History: Cancer Additional Family Medical History / Comment(s): throat, lung, and rectal cancer Mother Family Medical History: Myocardial Infarction ([place]) Additional Family Medical History / Comment(s): stroke Medications and Allergies Home Medications Medication Instructions Recorded Confirmed Type Divalproex [Depakote] 500 mg PO DAILY 02/20/22 09/22/22 History Divalproex [Depakote] 250 mg PO HS 04/24/22 09/22/22 History Lacosamide [Vimpat] 100 mg PO BID 07/03/22 09/22/22 History Metoprolol Tartrate [Lopressor] 50 mg PO BID 07/03/22 09/22/22 History Sertraline [Zoloft] 25 mg PO DAILY 07/03/22 09/22/22 History Sertraline [Zoloft] 100 mg PO DAILY 07/03/22 09/22/22 History risperiDONE [RisperDAL] 1 mg PO HS 07/03/22 09/22/22 History Cephalexin [Keflex] 500 mg PO BID 09/22/22 09/22/22 History oxyCODONE HCL/ACETAMINOPHEN 1 tab PO Q4H 09/22/22 09/22/22 History [Percocet 10-325 mg] Allergies Allergy/AdvReac Type Severity Reaction Status Date / Time hydromorphone [From Dilaudid] Allergy Swelling Verified 09/22/22 16:55 morphine Allergy Swelling Verified 09/22/22 16:55 Physical Exam Vitals: Vital Signs Temp Pulse Resp BP BP Pulse Ox 09/24/22 08:41 96 143/90 09/24/22 07:24 98.3 F 94 17 94/50 100 09/24/22 01:06 98 F 83 16 152/94 98 09/23/22 19:35 97.9 F 92 17 132/77 100 09/23/22 15:00 98.5 F 86 17 134/84 100 Intake and Output 09/23/22 09/24/22 09/24/22 22:59 06:59 14:59 Output Total 550 150 Balance -550 -150 Output: Urine 550 150 Other: Voiding Method External Catheter # Voids 1 GENERAL DESCRIPTION: Middle-aged female lying in bed, no distress. No tachypnea or accessory muscle of respiration use. HEENT: Shows Pallor , no scleral icterus. Oral mucous membrane is dry. No pharyngeal erythema or thrush NECK: Trachea central, no thyromegaly. LUNGS: Unlabored breathing. Clear to auscultation anteriorly. No wheeze or crackle. HEART: S1, S2, regular rate and rhythm. No loud murmur ABDOMEN: Soft, no tenderness , guarding or rigidity, no organomegaly EXTREMITIES: Right lateral leg wound unstageable pressure ulcer minimal maceration no surrounding redness patient also have a wound on the right foot and heel area with some esher but no surrounding redness or drainage SKIN: No rash, no masses palpable. NEUROLOGICAL: The patient is awake, alert, oriented x3, mood and affect normal. Results CBC & Chem 7: 10/02/22 05:50 10/02/22 05:50 Labs: Abnormal Lab Results - Last 24 Hours (Table) 09/22/22 09/24/22 09/24/22 Range/Units 08:32 06:08 06:08 RBC 2.87 L (3.80-5.40) m/uL Hgb 7.2 L D (11.4-16.0) gm/dL Hct 23.8 L (34.0-46.0) % MCHC 30.4 L (31.0-37.0) g/dL RDW 20.4 H (11.5-15.5) % Chloride 115 H (98-107) mmol/L Carbon Dioxide 20 L (22-30) mmol/L Glucose 69 L (74-99) mg/dL Calcium 7.9 L (8.4-10.2) mg/dL Ur Leukocyte Esterase Small H (Negative) Urine WBC 13 H (0-5) /hpf Urine Bacteria Rare H (None) /hpf Assessment and Plan (1) Leukocytosis Current Visit: Yes Status: Acute Code(s): D72.829 - ELEVATED WHITE BLOOD CELL COUNT, UNSPECIFIED SNOMED Code(s): 723271941 (2) Decubitus skin ulcer Current Visit: Yes Status: Acute Code(s): L89.90 - PRESSURE ULCER OF UNSPECIFIED SITE, UNSPECIFIED STAGE SNOMED Code(s): 0264751909 Plan: 1patient with a multiple wounds to the bilateral lower extremity mostly pressure ulcers however they are currently covered with a dry scabs with no significant surrounding swelling redness recommend local wound care by keeping them dry and of the pressure no need for Medihoney, wound to the right lateral leg will apply dry Aquacel silver dressing change every 48 hours and keep the area of the pressure. 2patient with a stage II sacral pressure ulcer but no cellulitis local wound care with a dry Aquacel silver dressing and keep the area of pressure. 3patient did have mild leukocytosis on admission possible reactive white count has normalized will be monitored closely Family at the bedside questions were answered We will follow on clinical condition and cultures to further adjust medication if needed Thank you for this consultation we will follow the patient along with you Time with Patient: Greater than 30
[2022-09-24] MEDS: DIVALPROEX 250 MG TABLET.DR PO SCH (22:14)
[2022-09-24] MEDS: risperiDONE 1 MG TAB PO SCH (22:14)
[2022-09-24] MEDS: diphenhydrAMINE 25 MG CAP PO PRN (22:14)
[2022-09-25] MEDS: oxyCODONE-APAP 10-325MG 1 EACH TAB PO SCH ×7 (01:43→23:35)
--- NOTE | 2022-09-25 01:47 | PN ---
PROGRESS NOTE SUBJECTIVE: She is in for altered mental status. She has had PEG tubes, feeding tubes placed tomorrow, but she also failed barium swallow first. She was placed in hospice, taken out of hospice that she was found to have seizures and she awoke out of her seizures Percocet for pain, Lopressor for hypertension, Depakote for seizures. Continue current treatment. OBJECTIVE: CARDIOVASCULAR: S1, S2. LUNGS: Clear. PSYCH: She is alert and oriented x3. NEUROLOGIC: Alert and oriented x3. ASSESSMENT: Pulmonary congestion. We will do a barium swallow tomorrow. for nutrition as she has multiple wounds on her legs that will need treatment prior to being discharged. Increase nutrition in order to heal wounds. Prognosis guarded. MMCHETL / IJN: [id number] /
--- NOTE | 2022-09-25 01:56 | PN ---
PROGRESS NOTE Supposed to have a swallow eval, so the patient can get a PEG tube placed, which needs to be placed due to poor nutrition, poor wound healing, failure to thrive, protein- calorie malnutrition, history of CVA, seizures, hypomagnesemia. Awaiting modified barium swallow and then can do a PEG tube to get insurance to pay. Transfuse if hemoglobin goes below 7, is 7.2 currently. Sodium is 140, potassium 4.4, creatinine 0.66, magnesium 1.8. Prognosis guarded. MMODL / IJN: [id number] /
[2022-09-25] MEDS: SERTRALINE 25 MG TAB PO SCH (09:55)
[2022-09-25] MEDS: DIVALPROEX 500 MG TABLET.DR PO SCH (09:55)
[2022-09-25] MEDS: PANTOPRAZOLE 40 MG/10 ML VIAL IV SCH (09:55)
[2022-09-25] MEDS: METOPROLOL TARTRATE 50 MG TAB PO SCH ×2 (09:56→20:15)
[2022-09-25] MEDS: SERTRALINE 100 MG TAB PO SCH (09:56)
[2022-09-25] MEDS: LACOSAMIDE 50 MG TABLET PO SCH ×2 (09:56→20:15)
[2022-09-25] MEDS: ENOXAPARIN 40 MG/0.4 ML SYRINGE SQ SCH (09:56)
[2022-09-25] MEDS: HYDROPHILIC CREAM 180 GM TUBE TOPICAL SCH (09:56)
[2022-09-25 10:28] LABS: African American GFR (CKD) >90 (>60 ml/min/1.73 sqM); Anion Gap 7 mmol/L; Blood Urea Nitrogen 12 mg/dL (7-17); Calcium 8.3 mg/dL (8.4-10.2); Carbon Dioxide 15 mmol/L (22-30); Chloride 119 mmol/L (98-107); Glucose 57 mg/dL (74-99); Non-African American GFR(CKD) >90 (>60 ml/min/1.73 sqM); Sodium 141 mmol/L (137-145)
[2022-09-25 10:49] LABS: Potassium 6.2 mmol/L (3.5-5.1)
[2022-09-25] MEDS: SODIUM CHLORIDE 0.9% 1,000 ML IV SCH (11:58)
--- NOTE | 2022-09-25 12:03 | P.NPCON ---
History of Present Illness - Reason for Consult hyperkalemia - History of Present Illness Reason for consultation: Hyperkalemia History of present illness: Patient is 62-year-old female seen in renal consultation for hyperkalemia. Patient's potassium level yesterday was 4.4 and 6.2 today. However this morning sample was hemolyzed. Patient was brought to the hospital due to poor intake. Patient had episode of seizures about 3 weeks ago and was initially placed on hospice. However family then decided to take her off hospice. No diarrhea. Patient is not a reliable historian. Son-in-law is present at bedside. Patient does have history of acute kidney failure episodes in the past. GFR is cur rently at baseline. Creatinine 0.69 today. She is noted to be acidotic with a bicarb level of 15. She is currently receiving normal saline. I don't see any nonsteroidals in her medication list. No diuretics. Also no other medications that would raise her potassium level. She does have lower extremity wounds and is being followed by infectious disease. Vital signs are stable. General: No acute distress. HEENT: Head exam is unremarkable. LUNGS: No audible rhonchi or wheezes. HEART: Rate and Rhythm are regular. ABDOMEN: No distention. EXTREMITITES: Trace edema. 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 gout, PANCREATITIS, pseudoseizures, UTI, gallstones, tremors, hx multiple brain aneursyms History of Any Multi-Drug Resistant Organisms: None Reported Date of last positivie culture/infection: 03/18/18 ESBL E.coli MDRO Source:: Urine Past Surgical History: Section, Cholecystectomy, Orthopedic Surgery Additional Past Surgical History / Comment(s): hx aneurysms- COILS AND STENTS TO BRAIN, repair tendons r/t gout BILATERAL FEET; Pain pump inserted on 04/21/22 Past Anesthesia/Blood Transfusion Reactions: No Reported Reaction Additional Past Anesthesia/Blood Transfusion Reaction / Comment(s): PT HAS HAD BLOOD TRANSFUSIONS FOR ANEMIA-NO REACTION. Past Psychological History: Anxiety, Depression, Schizophrenia Additional Psychological History / Comment(s): paranoid schizophrenia Smoking Status: Former smoker Past Alcohol Use History: Abuse, Heavy Additional Past Alcohol Use History / Comment(s): Stopped smoking 2010 Past Drug Use History: Cocaine Additional Drug Use History / Comment(s): No current use. Last used 17 yrs ago. - Past Family History Sister(s) Family Medical History: Myocardial Infarction ([place]) Father Family Medical History: Cancer Additional Family Medical History / Comment(s): throat, lung, and rectal cancer Mother Family Medical History: Myocardial Infarction ([place]) Additional Family Medical History / Comment(s): stroke Medications and Allergies Home Medications Medication Instructions Recorded Confirmed Type Divalproex [Depakote] 500 mg PO DAILY 02/20/22 09/22/22 History Divalproex [Depakote] 250 mg PO HS 04/24/22 09/22/22 History Lacosamide [Vimpat] 100 mg PO BID 07/03/22 09/22/22 History Metoprolol Tartrate [Lopressor] 50 mg PO BID 07/03/22 09/22/22 History Sertraline [Zoloft] 25 mg PO DAILY 07/03/22 09/22/22 History Sertraline [Zoloft] 100 mg PO DAILY 07/03/22 09/22/22 History risperiDONE [RisperDAL] 1 mg PO HS 07/03/22 09/22/22 History Cephalexin [Keflex] 500 mg PO BID 09/22/22 09/22/22 History oxyCODONE HCL/ACETAMINOPHEN 1 tab PO Q4H 09/22/22 09/22/22 History [Percocet 10-325 mg] Allergies Allergy/AdvReac Type Severity Reaction Status Date / Time hydromorphone [From Dilaudid] Allergy Swelling Verified 09/22/22 16:55 morphine Allergy Swelling Verified 09/22/22 16:55 Physical Exam Vitals: Vital Signs Temp Pulse Resp BP Pulse Ox 09/25/22 06:55 97.5 F L 86 17 106/69 97 09/25/22 01:50 97.4 F L 85 18 125/80 97 09/24/22 19:11 98.1 F 97 18 129/82 100 09/24/22 13:05 97.8 F 104 H 18 131/81 100 Intake and Output 09/24/22 09/25/22 09/25/22 22:59 06:59 14:59 Output Total 200 200 Balance -200 -200 Output: Urine 200 200 Other: Voiding Method External Catheter Results - Lab Results Most recent lab results Calcium 8.3 mg/dL (8.4-10.2) L 09/25/22 09:38 Phosphorus 3.0 mg/dL (2.5-4.5) 09/22/22 17:22 Magnesium 1.8 mg/dL (1.6-2.3) 09/24/22 06:08 09/24/22 06:08 09/25/22 09:38 Assessment and Plan Plan: Assessment: 1. Hyperkalemia secondary to metabolic acidosis. However this is a hemolyzed sample. Potassium yesterday was normal. 2. Metabolic acidosis secondary to IV fluids. 3. Anemia. Rule out iron deficiency. 4. Failure to thrive. Awaits PEG tube placement. 5. History of seizure. Plan: Change IV fluids to bicarbonate drip. Repeat potassium level now. Check iron studies. Thank you for the consultation. I will continue to follow the patient with you during her hospital stay.
--- NOTE | 2022-09-25 13:40 | P.PN ---
Subjective Progress Note Date: 09/25/22 Principal diagnosis: Bilateral lower extremity and sacral wound Patient is a 62-year-old -[place] female with multiple comorbidities including stroke chronic pain in this patient who is a bedbound and did have multiple contracture patient has been brought into the hospital for decreased appetite and possible placement for PEG tube , patient also had bilateral lower extremity and sacral wound prompting this consultation On today's evaluation that is 09/25/2022, the patient denies having any fever or any chills, the patient is awake and alert breathing comfortably on room air, denies any worsening pain to the lower extremity or sacral wound area no chest pain shortness of breath or cough Objective - Vital Signs Vital signs: Vital Signs Temp 97.5 F L 09/25/22 06:55 Pulse 86 09/25/22 06:55 Resp 17 09/25/22 06:55 BP 106/69 09/25/22 06:55 Pulse Ox 97 09/25/22 06:55 FiO2 Intake & Output 09/24/22 09/25/22 09/25/22 18:59 06:59 18:59 Output Total 150 400 Balance -150 -400 Weight 47.627 kg Output: Urine 150 400 Other: Voiding Method External Catheter External Catheter - Exam GENERAL DESCRIPTION: Middle-aged female lying in bed in no distress RESPIRATORY SYSTEM: Unlabored breathing , decreased breath sounds at bases HEART: S1 S2 regular rate and rhythm , ABDOMEN: Soft , no tenderness EXTREMITIES: Right lateral leg wound minimal menstruation but no redness or foul-smelling drainage - Labs CBC & Chem 7: 09/24/22 06:08 09/25/22 12:20 Labs: Abnormal Lab Results - Last 24 Hours (Table) 09/25/22 Range/Units 09:38 Potassium 6.2 H* (3.5-5.1) mmol/L Chloride 119 H (98-107) mmol/L Carbon Dioxide 15 L (22-30) mmol/L Glucose 57 L (74-99) mg/dL Calcium 8.3 L (8.4-10.2) mg/dL Microbiology - Last 24 Hours (Table) 09/22/22 08:32 Urine Culture - Final Urine,Voided Assessment and Plan (1) Decubitus skin ulcer Current Visit: Yes Status: Acute Code(s): L89.90 - PRESSURE ULCER OF UNSPECIFIED SITE, UNSPECIFIED STAGE SNOMED Code(s): 7629725241 Plan: 1patient with a multiple wounds to the bilateral lower extremity mostly pressure ulcers however they are currently covered with a dry scabs with no significant surrounding swelling redness recommend local wound care by keeping them dry and of the pressure no need for Medihoney, wound to the right lateral leg will apply dry Aquacel silver dressing change every 48 hours and keep the area of the pressure. 2patient with a stage II sacral pressure ulcer but no cellulitis local wound care with a dry Aquacel silver dressing and keep the area of pressure. 3no need for systemic antibiotic therapy at this point Time with Patient: Less than 30
--- NOTE | 2022-09-25 14:31 | P.PN ---
Subjective Progress Note Date: 09/25/22 CHIEF COMPLAINT: Failure to thrive HISTORY OF PRESENT ILLNESS: Patient is PEG tube for today was canceled due to elevated potassium level. She did have a modified barium swallow that showed no evidence of aspiration. Afebrile. Potassium 6.2 down to 4.5 PHYSICAL EXAM: VITAL SIGNS: Reviewed. GENERAL:no acute distress. ABDOMEN: Soft. Nondistended. Nontender. NEUROLOGIC: Awake and able to answer some questions ASSESSMENT: 1. Failure to thrive 2. Moderate protein calorie malnutrition 3. History of CVA 4. Hypomagnesemia improved 5. Hyperkalemia PLAN: -PEG tube placement will be rescheduled until tomorrow because of elevated potassium -Keep patient nothing by mouth after midnight Physician Barber Instructor note has been reviewed by physician. Signing provider agrees with the documented findings, assessment, and plan of care. Objective - Vital Signs Vital signs: Vital Signs Temp 97.5 F L 09/25/22 06:55 Pulse 86 09/25/22 06:55 Resp 17 09/25/22 06:55 BP 106/69 09/25/22 06:55 Pulse Ox 97 09/25/22 06:55 FiO2 Intake & Output 09/24/22 09/25/22 09/25/22 18:59 06:59 18:59 Output Total 150 400 Balance -150 -400 Weight 47.627 kg Output: Urine 150 400 Other: Voiding Method External Catheter External Catheter - Labs CBC & Chem 7: 09/24/22 06:08 09/25/22 12:20 Labs: Abnormal Lab Results - Last 24 Hours (Table) 09/25/22 Range/Units 09:38 Potassium 6.2 H* (3.5-5.1) mmol/L Chloride 119 H (98-107) mmol/L Carbon Dioxide 15 L (22-30) mmol/L Glucose 57 L (74-99) mg/dL Calcium 8.3 L (8.4-10.2) mg/dL Microbiology - Last 24 Hours (Table) 09/22/22 08:32 Urine Culture - Final Urine,Voided
[2022-09-25] MEDS: DEXTROSE 5% IN WATER 1,000 ML with SODIUM BICARB (1 MEQ/ML) 150 ML IV SCH (15:26)
[2022-09-25 17:11] LABS: Glucose,Whole Blood 63 mg/dL (70-110)
[2022-09-25] MEDS: risperiDONE 1 MG TAB PO SCH (20:15)
[2022-09-25] MEDS: DIVALPROEX 250 MG TABLET.DR PO SCH (20:15)
[2022-09-25 20:46] LABS: Glucose,Whole Blood 78 mg/dL (70-110)
[2022-09-25 23:05] LABS: Glucose,Whole Blood 81 mg/dL (70-110)
[2022-09-26 00:02] LABS: HCT 21.9 % (37.2-46.3); MCH 24.4 pg (27.0-32.0); MCHC 30.6 g/dL (32.0-37.0); MCV 79.6 fL (80.0-97.0); Mean Platelet Volume 12.9 fL (9.5-12.2); NRBC Per 100 WBC 0 /100 WBCS (0.0-0.0); Platelet Count 448 X 10*3/uL (140-440); RBC 2.75 X 10*6/uL (4.10-5.20); RDW 23.2 % (11.5-14.5); WBC 16.68 X 10*3/uL (4.50-10.00)
[2022-09-26 01:16] LABS: % Iron Saturation 17.24 (12.00-45.00)
[2022-09-26 05:24] LABS: Anisocytosis Moderate; Basophils % (A) 0 %; Eosinophils # (A) 0.1 k/uL (0-0.7); Eosinophils % (A) 1 %; HCT 25.9 % (34.0-46.0); HGB 7.6 gm/dL (11.4-16.0); Hypochromasia Marked; Lymphocytes # (A) 3.2 k/uL (1.0-4.8); Lymphocytes % (A) 28 %; MCH 24.6 pg (25.0-35.0); MCHC 29.2 g/dL (31.0-37.0); MCV 84.2 fL (80.0-100.0); Mean Platelet Volume 7.6; Microcytosis Slight; Monocytes # (A) 0.7 k/uL (0-1.0); Monocytes % (A) 7 %; Neutrophils # (A) 7.2 k/uL (1.3-7.7); Neutrophils % (A) 63 %; Platelet Count 338 k/uL (150-450); Poikilocytosis Slight; RBC 3.08 m/uL (3.80-5.40); RDW 20.1 % (11.5-15.5); WBC 11.4 k/uL (3.8-10.6)
[2022-09-26] MEDS: oxyCODONE-APAP 10-325MG 1 EACH TAB PO SCH ×6 (05:27→21:53)
[2022-09-26 05:38] LABS: ALT 11 U/L (4-34); AST 20 U/L (14-36); African American GFR (CKD) >90 (>60 ml/min/1.73 sqM); Albumin 2.4 g/dL (3.5-5.0); Albumin/Globulin Ratio 0.7; Alkaline Phosphatase 89 U/L (38-126); Anion Gap 6 mmol/L; Blood Urea Nitrogen 11 mg/dL (7-17); Calcium 8.2 mg/dL (8.4-10.2); Carbon Dioxide 19 mmol/L (22-30); Chloride 113 mmol/L (98-107); Globulin 3.5 g/dL; Glucose 83 mg/dL (74-99); Non-African American GFR(CKD) >90 (>60 ml/min/1.73 sqM); Potassium 4.3 mmol/L (3.5-5.1); Sodium 138 mmol/L (137-145); Total Bilirubin 0.4 mg/dL (0.2-1.3); Total Protein 5.9 g/dL (6.3-8.2)
[2022-09-26 06:10] LABS: Glucose,Whole Blood 78 mg/dL (70-110)
[2022-09-26] MEDS: ENOXAPARIN 40 MG/0.4 ML SYRINGE SQ SCH (08:18)
[2022-09-26] MEDS ORDERED: PROPOFOL 10 MG/ML 20 ML VIAL IV ONE (09:36)
[2022-09-26 09:41] LABS: HGB 6.7 g/dL (12.0-15.0)
[2022-09-26] MEDS ORDERED: IV FLUID CONTINUATION 1,000 ML IV ONE (09:51)
--- NOTE | 2022-09-26 09:58 | P.OP ---
Date of Procedure: 09/26/22 Preoperative Diagnosis: Protein calorie malnutrition Postoperative Diagnosis: Protein calorie malnutrition Procedure(s) Performed: EGD with PEG tube placement Anesthesia: EMILY Surgeon: Dyllan Herrera Estimated Blood Loss (ml): 2 Pathology: none sent Condition: stable Disposition: PACU Description of Procedure: The patient's placed on the bed in the supine position. The patient received IV sedation Next the gastroscope placed oropharynx passed in the esophagus and stomach. There is no evidence of any outlet obstruction. Stomach was insufflated with air. The light reflux seen the anterior abdominal wall. The abdomen was prepped and draped usual fashion. The skin was incised. And the needles placed and stomach under direct visualization. The needle was snared. And the wires placed through the needle and the wire was snared and brought the oropharynx. The PEG tube was placed over top the wire brought down to the stomach. The PEG tube was secured. At the 3 cm pastora. The one-piece bolster was used. Patient tolerated procedure well.
--- NOTE | 2022-09-26 10:58 | PN ---
PROGRESS NOTE SUBJECTIVE: A 62-year-old -Maltese female, failure to thrive, malnourished, and leg infections, especially on the right lower calf area posteriorly that shows a wound about 3 inches down about 0.5 cm deep. There is no acute drainage from these wounds, but we will get nutrition. She has failed a swallow eval today. She wants a PEG tube. Family wants a PEG tube, they are going to put a PEG tube in tomorrow, because there is no IV access it was delayed today and she has severe hyperkalemia for which treatment was needed today. For the hyperkalemia, was administered. Scopolamine patches were given for increased secretions. Protonix was given for GERD precautions, metoprolol for hypertension, Vimpat for seizures, Lovenox subcu daily for DVT prophylaxis, Depakote for seizures. She takes at home for insomnia. She is given some sodium bicarbonate D5 for hypoglycemia and metabolic acidosis, prognosis is guarded. She will follow up in the next day for PEG tube and tube feeding placement at that time. Continue to treat for above conditions as mentioned above. OBJECTIVE: PSYCH: She is alert and alert oriented, giving appropriate answers. Her baseline is there mentally. CARDIOVASCULAR: S1, S2. EXTREMITIES: Showed wounds x3. She has contracted extremities. GI: Soft. VITAL SIGNS: Temperature 97.9, blood pressure 130s to 140s over 80 to 87, O2 99 on room air, respiratory rate 16 to 18, pulse rate 92. Continue current treatments. Wait for PEG tube placement in the morning by Dr. Herrera. Monitor electrolytes. MMODL / IJN: [id number] /
[2022-09-26] MEDS: PANTOPRAZOLE 40 MG/10 ML VIAL IV SCH (10:59)
[2022-09-26] MEDS: LACOSAMIDE 50 MG TABLET PO SCH ×3 (11:00→21:53)
[2022-09-26] MEDS: DIVALPROEX 500 MG TABLET.DR PO SCH (11:00)
[2022-09-26] MEDS: SERTRALINE 25 MG TAB PO SCH (11:01)
[2022-09-26] MEDS: SERTRALINE 100 MG TAB PO SCH (11:01)
[2022-09-26] MEDS: METOPROLOL TARTRATE 50 MG TAB PO SCH ×2 (11:01→21:41)
[2022-09-26] MEDS: HYDROPHILIC CREAM 180 GM TUBE TOPICAL SCH (11:01)
[2022-09-26 11:41] LABS: Glucose,Whole Blood 90 mg/dL (70-110)
--- NOTE | 2022-09-26 12:17 | P.PN ---
Subjective patient is seen in follow-up for hyperkalemia. The high potassium level was hemolyzed and subsequently all levels have been normal. She is currently on bicarb drip and acidosis is improved. PEG tube placed this morning. patient is not a reliable historian.Family present at bedside. Vital signs are stable. General: no acute distress. HEENT: Head exam is unremarkable. date LUNGS: breath sounds decreased. HEART: Rate and Rhythm are regular. delete ABDOMEN: no distention. PEG tube noted. EXTREMITITES:1+ edema. Wounds noted. Objective - Vital Signs Vital signs: Vital Signs Temp 97.9 F 09/26/22 07:12 Pulse 85 09/26/22 07:12 Resp 17 09/26/22 07:12 BP 132/76 09/26/22 07:12 Pulse Ox 100 09/26/22 07:12 FiO2 Intake & Output 09/25/22 09/26/22 09/26/22 18:59 06:59 18:59 Intake Total 200 Output Total 500 275 Balance -500 -275 200 Weight 47.627 kg Intake: IV 200 Output: Urine 500 275 - Labs CBC & Chem 7: 09/26/22 05:04 09/26/22 05:04 Labs: Abnormal Lab Results - Last 24 Hours (Table) 09/25/22 09/25/22 09/25/22 Range/Units 14:45 14:45 16:52 WBC 16.68 H (4.50-10.00) X 10*3/uL RBC 2.75 L (4.10-5.20) X 10*6/uL Hgb 6.7 L* (12.0-15.0) g/dL Hct 21.9 L (37.2-46.3) % MCV 79.6 L (80.0-97.0) fL MCH 24.4 L (27.0-32.0) pg MCHC 30.6 L (32.0-37.0) g/dL RDW 23.2 H (11.5-14.5) % Plt Count 448 H (140-440) X 10*3/uL MPV 12.9 H (9.5-12.2) fL Chloride (98-107) mmol/L Carbon Dioxide (22-30) mmol/L POC Glucose (mg/dL) 63 L (70-110) mg/dL Calcium (8.4-10.2) mg/dL Iron 21 L (50-170) ug/dL TIBC 121 L (228-460) ug/dL Transferrin 86.6 L (204.0-354.0) mg/dL Ferritin 1769.0 H (10.0-291.0) ng/mL Total Protein (6.3-8.2) g/dL Albumin (3.5-5.0) g/dL Crossmatch 09/26/22 09/26/22 09/26/22 Range/Units 05:04 05:04 05:04 WBC 11.4 H (4.50-10.00) X 10*3/uL RBC 3.08 L (4.10-5.20) X 10*6/uL Hgb 7.6 L (12.0-15.0) g/dL Hct 25.9 L (37.2-46.3) % MCV (80.0-97.0) fL MCH 24.6 L (27.0-32.0) pg MCHC 29.2 L (32.0-37.0) g/dL RDW 20.1 H (11.5-14.5) % Plt Count (140-440) X 10*3/uL MPV (9.5-12.2) fL Chloride 113 H (98-107) mmol/L Carbon Dioxide 19 L (22-30) mmol/L POC Glucose (mg/dL) (70-110) mg/dL Calcium 8.2 L (8.4-10.2) mg/dL Iron (50-170) ug/dL TIBC (228-460) ug/dL Transferrin (204.0-354.0) mg/dL Ferritin (10.0-291.0) ng/mL Total Protein 5.9 L (6.3-8.2) g/dL Albumin 2.4 L (3.5-5.0) g/dL Crossmatch See Detail Microbiology - Last 24 Hours (Table) 09/22/22 08:32 Urine Culture - Final Urine,Voided Assessment and Plan Plan: Assessment: 1. Hyperkalemia secondary to metabolic acidosis. also a hemolyzed sample. normal today. 2. Metabolic acidosis secondary to IV fluids.improving with bicarbonate drip. 3. Anemia. received blood transfusion. High ferritin noted. 4. Failure to thrive. PEG tube placed this morning. 5. History of seizure. Plan: change IV fluids back to normal saline at 50 mL an hour - Hep-Lock tomorrow once tube feeds initiated. Add oral bicarb.
[2022-09-26] MEDS ORDERED: SODIUM CHLORIDE 0.9% 1,000 ML IV SCH (12:30)
[2022-09-26 17:17] LABS: Glucose,Whole Blood 81 mg/dL (70-110)
[2022-09-26] MEDS: DEXTROSE 5% IN WATER 1,000 ML with SODIUM BICARB (1 MEQ/ML) 150 ML IV SCH (18:13)
[2022-09-26] MEDS: SODIUM BICARBONATE TAB 650 MG TAB PO SCH ×2 (18:43→21:41)
[2022-09-26 20:09] LABS: Glucose,Whole Blood 78 mg/dL (70-110)
[2022-09-26] MEDS: risperiDONE 1 MG TAB PO SCH (21:42)
[2022-09-26] MEDS: DIVALPROEX 250 MG TABLET.DR PO SCH (21:42)
[2022-09-26] MEDS: SCOPOLAMINE 1 MG/72 HR PATCH TRANSDERM SCH (21:43)
--- NOTE | 2022-09-26 21:59 | P.PN ---
Subjective Progress Note Date: 09/26/22 Principal diagnosis: Bilateral lower extremity and sacral wound Patient is a 62-year-old -[place] female with multiple comorbidities including stroke chronic pain in this patient who is a bedbound and did have multiple contracture patient has been brought into the hospital for decreased appetite and possible placement for PEG tube , patient also had bilateral lower extremity and sacral wound prompting this consultation, patient did have a PEG tube placement on 09/25/2022 On today's evaluation that is 09/26/2022, the patient remains to be afebrile, the patient is breathing comfortably on room air, denies any worsening pain to the lower extremity or sacral wound area no chest pain shortness of breath or cough Objective - Vital Signs Vital signs: Vital Signs Temp 97.9 F 09/26/22 07:12 Pulse 85 09/26/22 07:12 Resp 17 09/26/22 07:12 BP 132/76 09/26/22 07:12 Pulse Ox 100 09/26/22 07:12 FiO2 Intake & Output 09/25/22 09/26/22 09/26/22 18:59 06:59 18:59 Intake Total 200 Output Total 500 275 Balance -500 -275 200 Weight 47.627 kg Intake: IV 200 Output: Urine 500 275 - Exam GENERAL DESCRIPTION: Middle-aged female lying in bed in no distress RESPIRATORY SYSTEM: Unlabored breathing , decreased breath sounds at bases HEART: S1 S2 regular rate and rhythm , ABDOMEN: Soft , no tenderness EXTREMITIES: Right lateral leg wound minimal menstruation but no redness or foul-smelling drainage - Labs CBC & Chem 7: 09/26/22 05:04 09/26/22 05:04 Labs: Abnormal Lab Results - Last 24 Hours (Table) 09/25/22 09/25/22 09/25/22 Range/Units 09:38 14:45 14:45 WBC 16.68 H (4.50-10.00) X 10*3/uL RBC 2.75 L (4.10-5.20) X 10*6/uL Hgb 6.7 L* (12.0-15.0) g/dL Hct 21.9 L (37.2-46.3) % MCV 79.6 L (80.0-97.0) fL MCH 24.4 L (27.0-32.0) pg MCHC 30.6 L (32.0-37.0) g/dL RDW 23.2 H (11.5-14.5) % Plt Count 448 H (140-440) X 10*3/uL MPV 12.9 H (9.5-12.2) fL Potassium 6.2 H* (3.5-5.1) mmol/L Chloride 119 H (98-107) mmol/L Carbon Dioxide 15 L (22-30) mmol/L Glucose 57 L (74-99) mg/dL POC Glucose (mg/dL) (70-110) mg/dL Calcium 8.3 L (8.4-10.2) mg/dL Iron 21 L (50-170) ug/dL TIBC 121 L (228-460) ug/dL Transferrin 86.6 L (204.0-354.0) mg/dL Ferritin 1769.0 H (10.0-291.0) ng/mL Total Protein (6.3-8.2) g/dL Albumin (3.5-5.0) g/dL Crossmatch 09/25/22 09/26/22 09/26/22 Range/Units 16:52 05:04 05:04 WBC 11.4 H (4.50-10.00) X 10*3/uL RBC 3.08 L (4.10-5.20) X 10*6/uL Hgb 7.6 L (12.0-15.0) g/dL Hct 25.9 L (37.2-46.3) % MCV (80.0-97.0) fL MCH 24.6 L (27.0-32.0) pg MCHC 29.2 L (32.0-37.0) g/dL RDW 20.1 H (11.5-14.5) % Plt Count (140-440) X 10*3/uL MPV (9.5-12.2) fL Potassium (3.5-5.1) mmol/L Chloride 113 H (98-107) mmol/L Carbon Dioxide 19 L (22-30) mmol/L Glucose (74-99) mg/dL POC Glucose (mg/dL) 63 L (70-110) mg/dL Calcium 8.2 L (8.4-10.2) mg/dL Iron (50-170) ug/dL TIBC (228-460) ug/dL Transferrin (204.0-354.0) mg/dL Ferritin (10.0-291.0) ng/mL Total Protein 5.9 L (6.3-8.2) g/dL Albumin 2.4 L (3.5-5.0) g/dL Crossmatch 09/26/22 Range/Units 05:04 WBC (4.50-10.00) X 10*3/uL RBC (4.10-5.20) X 10*6/uL Hgb (12.0-15.0) g/dL Hct (37.2-46.3) % MCV (80.0-97.0) fL MCH (27.0-32.0) pg MCHC (32.0-37.0) g/dL RDW (11.5-14.5) % Plt Count (140-440) X 10*3/uL MPV (9.5-12.2) fL Potassium (3.5-5.1) mmol/L Chloride (98-107) mmol/L Carbon Dioxide (22-30) mmol/L Glucose (74-99) mg/dL POC Glucose (mg/dL) (70-110) mg/dL Calcium (8.4-10.2) mg/dL Iron (50-170) ug/dL TIBC (228-460) ug/dL Transferrin (204.0-354.0) mg/dL Ferritin (10.0-291.0) ng/mL Total Protein (6.3-8.2) g/dL Albumin (3.5-5.0) g/dL Crossmatch See Detail Microbiology - Last 24 Hours (Table) 09/22/22 08:32 Urine Culture - Final Urine,Voided Assessment and Plan (1) Decubitus skin ulcer Current Visit: Yes Status: Acute Code(s): L89.90 - PRESSURE ULCER OF UNSPECIFIED SITE, UNSPECIFIED STAGE SNOMED Code(s): 6159779506 Plan: 1patient with a multiple wounds to the bilateral lower extremity mostly pressure ulcers however they are currently covered with a dry scabs with no significant surrounding swelling redness recommend local wound care by keeping them dry and of the pressure no need for Medihoney, wound to the right lateral leg will apply dry Aquacel silver dressing change every 48 hours and keep the area of the pressure. 2patient with a stage II sacral pressure ulcer but no cellulitis local wound care with a dry Aquacel silver dressing and keep the area of pressure. 3patient did have mild leukocytosis possible reactive and the patient will be monitored closely off antibiotic therapy at this point Time with Patient: Less than 30
[2022-09-26] MEDS: DEXTROSE 5%-0.45% NACL 1,000 ML IV SCH (23:09)
[2022-09-27] MEDS: oxyCODONE-APAP 10-325MG 1 EACH TAB PO SCH ×7 (05:14→18:37)
[2022-09-27 05:47] LABS: Glucose,Whole Blood 113 mg/dL (70-110)
[2022-09-27] MEDS: HYDROPHILIC CREAM 180 GM TUBE TOPICAL SCH (08:48)
[2022-09-27] MEDS: DIVALPROEX 500 MG TABLET.DR PO SCH (08:49)
[2022-09-27] MEDS: ENOXAPARIN 40 MG/0.4 ML SYRINGE SQ SCH (08:49)
[2022-09-27] MEDS: METOPROLOL TARTRATE 50 MG TAB PO SCH ×2 (08:49→21:06)
[2022-09-27] MEDS: SODIUM BICARBONATE TAB 650 MG TAB PO SCH ×2 (08:49→21:06)
[2022-09-27] MEDS: SERTRALINE 100 MG TAB PO SCH (08:49)
[2022-09-27] MEDS: SERTRALINE 25 MG TAB PO SCH (08:49)
[2022-09-27] MEDS: LACOSAMIDE 50 MG TABLET PO SCH ×2 (08:49→21:06)
[2022-09-27] MEDS: PANTOPRAZOLE 40 MG/10 ML VIAL IV SCH (08:50)
--- NOTE | 2022-09-27 10:42 | P.PN ---
Progress Note - Text Progress Note Date: 09/27/22 Patient Mimi stable. She will start tube feeds today. PEG site is clean.
[2022-09-27 11:11] LABS: Glucose,Whole Blood 107 mg/dL (70-110)
[2022-09-27 16:29] LABS: Glucose,Whole Blood 130 mg/dL (70-110)
[2022-09-27 20:14] LABS: Glucose,Whole Blood 111 mg/dL (70-110)
[2022-09-27] MEDS: risperiDONE 1 MG TAB PO SCH (21:06)
[2022-09-27] MEDS: DIVALPROEX 250 MG TABLET.DR PO SCH (21:06)
--- NOTE | 2022-09-27 21:28 | P.PN ---
Subjective Progress Note Date: 09/27/22 Principal diagnosis: Bilateral lower extremity and sacral wound Patient is a 62-year-old -[place]ym[place] female with multiple comorbidities including stroke chronic pain in this patient who is a bedbound and did have multiple contracture patient has been brought into the hospital for decreased appetite and possible placement for PEG tube , patient also had bilateral lower extremity and sacral wound prompting this consultation, patient did have a PEG tube placement on 09/25/2022 On today's evaluation that is 09/27/2022, the patient continues to be afebrile, the patient is breathing comfortably on room air, patient is slightly sleepy today and did not provide any history no vomiting or diarrhea was reported by the nursing staff Objective - Vital Signs Vital signs: Vital Signs Temp 97.6 F 09/27/22 07:53 Pulse 94 09/27/22 08:47 Resp 18 09/27/22 07:53 BP 111/76 09/27/22 08:47 Pulse Ox 100 09/27/22 08:47 FiO2 Intake & Output 09/26/22 09/27/22 09/27/22 18:59 06:59 18:59 Intake Total 200 60 Output Total 0 Balance 200 60 Weight 47.627 kg Intake: IV 200 Oral 60 Output: Urine 0 Other: Voiding Method Indwelling Catheter Incontinent Incontinent # Voids 2 # Bowel Movements 0 - Exam GENERAL DESCRIPTION: Middle-aged female lying in bed in no distress RESPIRATORY SYSTEM: Unlabored breathing , decreased breath sounds at bases HEART: S1 S2 regular rate and rhythm , ABDOMEN: Soft , no tenderness EXTREMITIES: Right lateral leg wound minimal menstruation but no redness or foul-smelling drainage - Labs CBC & Chem 7: 09/26/22 05:04 09/26/22 05:04 Labs: Abnormal Lab Results - Last 24 Hours (Table) 09/27/22 Range/Units 05:45 POC Glucose (mg/dL) 113 H (70-110) mg/dL Assessment and Plan (1) Decubitus skin ulcer Current Visit: Yes Status: Acute Code(s): L89.90 - PRESSURE ULCER OF UNSPECIFIED SITE, UNSPECIFIED STAGE SNOMED Code(s): 2734969996 Plan: 1patient with a multiple wounds to the bilateral lower extremity mostly pressure ulcers however they are currently covered with a dry scabs with no significant surrounding swelling redness recommend local wound care by keeping them dry and of the pressure no need for Medihoney, wound to the right lateral leg we suggested dry Aquacel silver dressing change every 48 hours however the family is refusing. Keep the area off the pressure and dry 2patient with a stage II sacral pressure ulcer but no cellulitis local wound care with a dry Aquacel silver dressing and keep the area of pressure. 3patient did have mild leukocytosis possible reactive and the patient will be monitored closely off antibiotic therapy at this point Time with Patient: Less than 30
[2022-09-27] MEDS: DEXTROSE 5%-0.45% NACL 1,000 ML IV SCH (22:10)
--- NOTE | 2022-09-27 23:47 | PN ---
PROGRESS NOTE SUBJECTIVE: A 62-year-old female. She had a PEG tube placed. We are going to get her on dextrose for hypoglycemia. Wait for dietitian to start feeding tube. Seizure medicines have been started. Been taken off hospice. OBJECTIVE: VITAL SIGNS: Temperature 98.7, pulse 80s to 90s, respiratory rate 16 to 18, blood pressure 140s/80s, O2 96% on room air. GENERAL: She is pleasantly confused. CARDIOVASCULAR: S1 and S2. LUNGS: Clear. GI: Soft. PEG tube was placed. PLAN: Wait for dietitian to start tube feeding for severe protein-calorie malnutrition and abnormal swallowing evaluation. The patient has multiple wounds on the legs, which and wound care is being done. Prognosis is guarded. Please see further orders. MMODL / IJN: [id number] /
[2022-09-28] MEDS: oxyCODONE-APAP 10-325MG 1 EACH TAB PO SCH ×6 (00:40→22:02)
[2022-09-28 06:22] LABS: Glucose,Whole Blood 129 mg/dL (70-110)
[2022-09-28] MEDS: SERTRALINE 100 MG TAB PO SCH (08:08)
[2022-09-28] MEDS: METOPROLOL TARTRATE 50 MG TAB PO SCH ×2 (08:08→22:03)
[2022-09-28] MEDS: SERTRALINE 25 MG TAB PO SCH (08:09)
[2022-09-28] MEDS: LACOSAMIDE 50 MG TABLET PO SCH ×2 (08:09→22:03)
[2022-09-28] MEDS: SODIUM BICARBONATE TAB 650 MG TAB PO SCH ×2 (08:09→22:03)
[2022-09-28] MEDS: DIVALPROEX 500 MG TABLET.DR PO SCH (08:10)
[2022-09-28] MEDS: ENOXAPARIN 40 MG/0.4 ML SYRINGE SQ SCH (08:10)
[2022-09-28] MEDS: HYDROPHILIC CREAM 180 GM TUBE TOPICAL SCH (08:10)
[2022-09-28] MEDS: DEXTROSE 5%-0.45% NACL 1,000 ML IV SCH ×2 (08:14→15:34)
[2022-09-28] MEDS: PANTOPRAZOLE 40 MG/10 ML VIAL IV SCH (08:49)
--- NOTE | 2022-09-28 10:39 | P.PN ---
Progress Note - Text Progress Note Date: 09/28/22 Patient Mimi burks. Her PEG tube site is clean. She will continue to feedings.
[2022-09-28 11:18] LABS: Glucose,Whole Blood 116 mg/dL (70-110)
[2022-09-28 16:51] LABS: Glucose,Whole Blood 108 mg/dL (70-110)
[2022-09-28 20:29] LABS: Glucose,Whole Blood 123 mg/dL (70-110)
--- NOTE | 2022-09-28 21:51 | P.PN ---
Subjective Progress Note Date: 09/28/22 Principal diagnosis: Bilateral lower extremity and sacral wound Patient is a 62-year-old -Scottish female with multiple comorbidities including stroke chronic pain in this patient who is a bedbound and did have multiple contracture patient has been brought into the hospital for decreased appetite and possible placement for PEG tube , patient also had bilateral lower extremity and sacral wound prompting this consultation, patient did have a PEG tube placement on 09/25/2022 On today's evaluation that is 09/28/2022, the patient remains to be afebrile, the patient is breathing comfortably on room air, patient did not provide any history today however the patient was arousable, no vomiting or diarrhea was reported by the nursing staff Objective - Vital Signs Vital signs: Vital Signs Temp 98.1 F 09/28/22 04:00 Pulse 86 09/28/22 04:00 Resp 17 09/28/22 04:00 BP 123/83 09/28/22 04:00 Pulse Ox 99 09/28/22 04:00 FiO2 Intake & Output 09/27/22 09/28/22 09/28/22 18:59 06:59 18:59 Weight 47.627 kg Other: Voiding Method Incontinent Incontinent - Exam GENERAL DESCRIPTION: Middle-aged female lying in bed in no distress RESPIRATORY SYSTEM: Unlabored breathing , decreased breath sounds at bases HEART: S1 S2 regular rate and rhythm , ABDOMEN: Soft , no tenderness EXTREMITIES: Right lateral leg wound minimal menstruation but no redness or foul-smelling drainage - Labs CBC & Chem 7: 09/26/22 05:04 09/26/22 05:04 Labs: Abnormal Lab Results - Last 24 Hours (Table) 09/26/22 09/27/22 09/27/22 Range/Units 05:04 16:27 20:12 POC Glucose (mg/dL) 130 H 111 H (70-110) mg/dL Crossmatch See Detail 09/28/22 Range/Units 06:20 POC Glucose (mg/dL) 129 H (70-110) mg/dL Crossmatch Assessment and Plan (1) Decubitus skin ulcer Current Visit: Yes Status: Acute Code(s): L89.90 - PRESSURE ULCER OF UNSPEC IFIED SITE, UNSPECIFIED STAGE SNOMED Code(s): 7866063075 Plan: 1patient with a multiple wounds to the bilateral lower extremity mostly pressur e ulcers however they are currently covered with a dry scabs with no significant surrounding swelling redness recommend local wound care by keeping them dry and of the pressure no need for Medihoney, wound to the right lateral leg we suggested dry Aquacel silver dressing change every 48 hours however the family is refusing. Keep the area off the pressure and dry 2patient with a stage II sacral pressure ulcer but no cellulitis local wound care with a dry Aquacel silver dressing and keep the area of pressure. 3patient did have mild leukocytosis possible reactive as no evidence of any active infection at this point,the patient will be monitored closely off antibiotic therapy Time with Patient: Less than 30
[2022-09-28] MEDS: LACTATED RINGERS 1,000 ML IV SCH (22:02)
[2022-09-28] MEDS: DIVALPROEX 250 MG TABLET.DR PO SCH (22:03)
[2022-09-28] MEDS: risperiDONE 1 MG TAB PO SCH (22:03)
--- NOTE | 2022-09-29 00:29 | PN ---
PROGRESS NOTE SUBJECTIVE: She remains on tube feeding. Wounds are being treated by Dr. Tristan. PT/OT is involved. Home medicines are involved. Seizure medications continued. Hypertension medicines continued. Sodium bicarbonate is continued. She is alert, giving appropriate answers. PHYSICAL EXAMINATION: VITAL SIGNS: Temperature 98.5, pulse 96, respiratory rate is 16 to 18, blood pressure 120s over 80s, O2 saturation 98% on room air. CARDIOVASCULAR: S1, S2. LUNGS: Clear. GI: Soft. HEMATOLOGY: Negative Homans. PSYCH: Fair mood and affect. Sugars in the mid 100s. ASSESSMENT: Failed swallow eval, seizures, hypertension, malnutrition severe, wounds in the lower extremities. Continue current treatments. Broad-spectrum antibiotics per Dr. Tristan. Continue her PT, OT, and nutrition. Please see further orders. MMODL / IJN: [id number] /
[2022-09-29] MEDS: oxyCODONE-APAP 10-325MG 1 EACH TAB PO SCH ×7 (04:46→23:36)
[2022-09-29 05:38] LABS: Glucose,Whole Blood 109 mg/dL (70-110)
[2022-09-29] MEDS: PANTOPRAZOLE 40 MG/10 ML VIAL IV SCH (07:57)
[2022-09-29] MEDS: DIVALPROEX 500 MG TABLET.DR PO SCH (07:59)
[2022-09-29] MEDS: ENOXAPARIN 40 MG/0.4 ML SYRINGE SQ SCH (07:59)
[2022-09-29] MEDS: HYDROPHILIC CREAM 180 GM TUBE TOPICAL SCH (08:01)
[2022-09-29] MEDS: SERTRALINE 100 MG TAB PO SCH (08:11)
[2022-09-29] MEDS: SERTRALINE 25 MG TAB PO SCH (08:11)
[2022-09-29] MEDS: SODIUM BICARBONATE TAB 650 MG TAB PO SCH ×2 (08:12→21:26)
[2022-09-29] MEDS: METOPROLOL TARTRATE 50 MG TAB PO SCH ×2 (08:12→21:23)
[2022-09-29] MEDS: LACOSAMIDE 50 MG TABLET PO SCH ×2 (08:12→21:23)
[2022-09-29] MEDS: DEXTROSE 5%-0.45% NACL 1,000 ML IV SCH ×2 (08:20→18:24)
[2022-09-29 09:18] LABS: ALT 10 U/L (8-44); ALT 8 U/L (8-44); AST 17 U/L (13-35); AST 19 U/L (13-35); African American GFR (CKD) 106.1 (60.0-200.0); African American GFR (CKD) 111.6 (60.0-200.0); Albumin 2.2 g/dL (3.8-4.9); Albumin/Globulin Ratio 0.65 (1.60-3.17); Albumin/Globulin Ratio 0.79 (1.60-3.17); Alkaline Phosphatase 95 U/L (41-126); Alkaline Phosphatase 97 U/L (41-126); BUN/Creat Ratio 11.86 Ratio (12.00-20.00); Blood Urea Nitrogen 8.1 mg/dL (9.0-27.0); Blood Urea Nitrogen 8.3 mg/dL (9.0-27.0); Calcium 7.8 mg/dL (8.7-10.3); Calcium 7.9 mg/dL (8.7-10.3); Carbon Dioxide 16.9 mmol/L (20.0-27.5); Carbon Dioxide 19.8 mmol/L (20.0-27.5); Chloride 111 mmol/L (96-109); Globulin 2.8 g/dL (1.6-3.3); Globulin 3.1 g/dL (1.6-3.3); Glucose 95 mg/dL (70-110); Magnesium 1.4 mg/dL (1.5-2.4); Non-African American GFR(CKD) 91.6 (60.0-200.0); Non-African American GFR(CKD) 96.3 (60.0-200.0); Potassium 4.2 mmol/L (3.5-5.5); Potassium 4.3 mmol/L (3.5-5.5); Sodium 138 mmol/L (135-145); Sodium 139 mmol/L (135-145); Total Bilirubin <0.15 mg/dL (0.30-1.20); Total Protein 5.1 g/dL (6.2-8.2)
[2022-09-29 10:30] LABS: Basophils # (A) 0.01 X 10*3/uL (0.00-0.10); Basophils % (A) 0.1 %; Eosinophils # (A) 0.05 X 10*3/uL (0.04-0.35); Eosinophils % (A) 0.7 %; HCT 18.4 % (37.2-46.3); HGB 5.8 g/dL (12.0-15.0); Immature Grans, Automated 0.9 %; Lymphocytes % (A) 32.8 %; MCH 24.2 pg (27.0-32.0); MCHC 31.5 g/dL (32.0-37.0); MCV 76.7 fL (80.0-97.0); Mean Platelet Volume 10.9 fL (9.5-12.2); Monocytes # (A) 0.76 X 10*3/uL (0.20-1.00); Monocytes % (A) 11.3 %; NRBC Per 100 WBC 0.3 /100 WBCS (0.0-0.0); Neutrophils # (A) 3.63 X 10*3/uL (1.80-7.70); Neutrophils % (A) 54.2 %; Platelet Count 306 X 10*3/uL (140-440); RDW 20.5 % (11.5-14.5); WBC 6.71 X 10*3/uL (4.50-10.00)
[2022-09-29 10:31] LABS: Hypochromasia (M) 2+; Macrocytosis (M) 2+; Target Cells 2+
[2022-09-29] MEDS ORDERED: Magnesium Replacement Protocol 1 EACH MISC MISCELLANE PRN (11:25)
[2022-09-29 11:29] LABS: Glucose,Whole Blood 117 mg/dL (70-110)
--- NOTE | 2022-09-29 11:41 | P.PN ---
Subjective Progress Note Date: 09/29/22 Principal diagnosis: Bilateral lower extremity and sacral wound Patient is a 62-year-old -[place] female with multiple comorbidities including stroke chronic pain in this patient who is a bedbound and did have multiple contracture patient has been brought into the hospital for decreased appetite and possible placement for PEG tube , patient also had bilateral lower extremity and sacral wound prompting this consultation, patient did have a PEG tube placement on 09/25/2022 On today's evaluation that is 09/29/2022, the patient continues to be afebrile, the patient is breathing comfortably on room air, patient is awake and alert denies any chest pain no cough no vomiting or diarrhea has been reported by the nursing staff Objective - Vital Signs Vital signs: Vital Signs Temp 98.7 F 09/29/22 07:07 Pulse 98 09/29/22 07:07 Resp 18 09/29/22 07:07 BP 119/77 09/29/22 07:07 Pulse Ox 100 09/29/22 07:07 FiO2 Intake & Output 09/28/22 09/29/22 09/29/22 18:59 06:59 18:59 Other: Voiding Method Incontinent Incontinent Diaper Incontinent # Voids 1 - Exam GENERAL DESCRIPTION: Middle-aged female lying in bed in no distress RESPIRATORY SYSTEM: Unlabored breathing , decreased breath sounds at bases HEART: S1 S2 regular rate and rhythm , ABDOMEN: Soft , no tenderness EXTREMITIES: Right lateral leg wound is currently trying out minimal surrounding redness or drainage - Labs CBC & Chem 7: 09/29/22 03:59 09/29/22 03:59 Labs: Abnormal Lab Results - Last 24 Hours (Table) 09/28/22 09/28/22 09/29/22 Range/Units 11:16 20:28 03:59 RBC (4.10-5.20) X 10*6/uL Hgb (12.0-15.0) g/dL Hct (37.2-46.3) % MCV (80.0-97.0) fL MCH (27.0-32.0) pg MCHC (32.0-37.0) g/dL RDW (11.5-14.5) % Absolute Nucleated RBC (0.00-0.00) X 10*3/uL Immature Gran # (0.00-0.04) X 10*3/uL NRBC/100 WBC Diff (0.0-0.0) /100 WBCS Chloride 111 H (96-109) mmol/L Carbon Dioxide 16.9 L (20.0-27.5) mmol/L Anion Gap (10.00-18.00) mmol/L BUN 8.3 L (9.0-27.0) mg/dL BUN/Creatinine Ratio 11.86 L (12.00-20.00) Ratio POC Glucose (mg/dL) 116 H 123 H (70-110) mg/dL Calcium 7.8 L (8.7-10.3) mg/dL Magnesium 1.4 L (1.5-2.4) mg/dL Total Bilirubin <0.15 L (0.30-1.20) mg/dL Total Protein 5.1 L (6.2-8.2) g/dL Albumin 2.0 L (3.8-4.9) g/dL Albumin/Globulin Ratio 0.65 L (1.60-3.17) g/dL 09/29/22 09/29/22 Range/Units 03:59 03:59 RBC 2.40 L (4.10-5.20) X 10*6/uL Hgb 5.8 L* (12.0-15.0) g/dL Hct 18.4 L* (37.2-46.3) % MCV 76.7 L (80.0-97.0) fL MCH 24.2 L (27.0-32.0) pg MCHC 31.5 L (32.0-37.0) g/dL RDW 20.5 H (11.5-14.5) % Absolute Nucleated RBC 0.02 H (0.00-0.00) X 10*3/uL Immature Gran # 0.06 H (0.00-0.04) X 10*3/uL NRBC/100 WBC Diff 0.3 H (0.0-0.0) /100 WBCS Chloride 111 H (96-109) mmol/L Carbon Dioxide 19.8 L (20.0-27.5) mmol/L Anion Gap 8.20 L (10.00-18.00) mmol/L BUN 8.1 L (9.0-27.0) mg/dL BUN/Creatinine Ratio (12.00-20.00) Ratio POC Glucose (mg/dL) (70-110) mg/dL Calcium 7.9 L (8.7-10.3) mg/dL Magnesium (1.5-2.4) mg/dL Total Bilirubin <0.15 L (0.30-1.20) mg/dL Total Protein 5.0 L (6.2-8.2) g/dL Albumin 2.2 L (3.8-4.9) g/dL Albumin/Globulin Ratio 0.79 L (1.60-3.17) g/dL Assessment and Plan (1) Decubitus skin ulcer Current Visit: Yes Status: Acute Code(s): L89.90 - PRESSURE ULCER OF UNSPECIFIED SITE, UNSPECIFIED STAGE SNOMED Code(s): 1804412744 Plan: 1patient with a multiple wounds to the bilateral lower extremity mostly pressure ulcers however they are currently covered with a dry scabs with no significant surrounding swelling redness recommend local wound care by keeping them dry and of the pressure no need for Medihoney, wound to the right lateral leg we suggested dry Aquacel silver dressing change every 48 hours however the family is refusing. Keep the area off the pressure and dry 2patient with a stage II sacral pressure ulcer but no cellulitis local wound care with a dry Aquacel silver dressing and keep the area of pressure. 3patient did have mild leukocytosis possible reactive as no evidence of any active infection at this point,the patient white count has normalized as of this morning however the patient did have a significant drop in hemoglobin being monitored closely by surgery and primary team Time with Patient: Less than 30
[2022-09-29] MEDS: MAGNESIUM SULFATE-D5W PMX 1 GM in DEXTROSE/WATER 1 100ML.BAG IVPB SCH ×2 (12:31→13:58)
--- NOTE | 2022-09-29 12:44 | P.PN ---
Subjective Progress Note Date: 09/29/22 CHIEF COMPLAINT: Failure to thrive HISTORY OF PRESENT ILLNESS: Patient is status post PEG tube placement on 09/26/2022. Patient tolerating tube feeds. Tube feeds are currently at 50 mL per hour. She reports having bowel movements. She denies any pain. Denies any nausea vomiting. Afebrile. WBC is 6.71 Hgb 5.8 platelets 306 potassium is 4.3 creatinine 0.6 PHYSICAL EXAM: VITAL SIGNS: Reviewed. GENERAL:no acute distress. ABDOMEN: Soft. Nondistended. PEG tube site clean dry and intact. Minimal tenderness with palpation around PEG tube site NEUROLOGIC: Awake and able to answer some questions ASSESSMENT: 1. Failure to thrive status post PEG tube placement 2. Moderate protein calorie malnutrition 3. History of CVA PLAN: -Continue tube feedings per dietitian recommendations -Continue supportive care -Medicine service has ordered 1 unit of blood for hemoglobin of 5.8 Physician Nuclear Plant Construction Worker note has been reviewed by physician. Signing provider agrees with the documented findings, assessment, and plan of care. Objective - Vital Signs Vital signs: Vital Signs Temp 98.7 F 09/29/22 07:07 Pulse 98 09/29/22 07:07 Resp 18 09/29/22 07:07 BP 119/77 09/29/22 07:07 Pulse Ox 100 09/29/22 07:07 FiO2 Intake & Output 09/28/22 09/29/22 09/29/22 18:59 06:59 18:59 Weight 47.627 kg Other: Voiding Method Incontinent Incontinent Diaper Incontinent # Voids 1 - Labs CBC & Chem 7: 09/29/22 03:59 09/29/22 03:59 Labs: Abnormal Lab Results - Last 24 Hours (Table) 09/28/22 09/29/22 09/29/22 Range/Units 20:28 03:59 03:59 RBC 2.40 L (4.10-5.20) X 10*6/uL Hgb 5.8 L* (12.0-15.0) g/dL Hct 18.4 L* (37.2-46.3) % MCV 76.7 L (80.0-97.0) fL MCH 24.2 L (27.0-32.0) pg MCHC 31.5 L (32.0-37.0) g/dL RDW 20.5 H (11.5-14.5) % Absolute Nucleated RBC 0.02 H (0.00-0.00) X 10*3/uL Immature Gran # 0.06 H (0.00-0.04) X 10*3/uL NRBC/100 WBC Diff 0.3 H (0.0-0.0) /100 WBCS Chloride 111 H (96-109) mmol/L Carbon Dioxide 16.9 L (20.0-27.5) mmol/L Anion Gap (10.00-18.00) mmol/L BUN 8.3 L (9.0-27.0) mg/dL BUN/Creatinine Ratio 11.86 L (12.00-20.00) Ratio POC Glucose (mg/dL) 123 H (70-110) mg/dL Calcium 7.8 L (8.7-10.3) mg/dL Magnesium 1.4 L (1.5-2.4) mg/dL Total Bilirubin <0.15 L (0.30-1.20) mg/dL Total Protein 5.1 L (6.2-8.2) g/dL Albumin 2.0 L (3.8-4.9) g/dL Albumin/Globulin Ratio 0.65 L (1.60-3.17) g/dL 09/29/22 09/29/22 Range/Units 03:59 11:28 RBC (4.10-5.20) X 10*6/uL Hgb (12.0-15.0) g/dL Hct (37.2-46.3) % MCV (80.0-97.0) fL MCH (27.0-32.0) pg MCHC (32.0-37.0) g/dL RDW (11.5-14.5) % Absolute Nucleated RBC (0.00-0.00) X 10*3/uL Immature Gran # (0.00-0.04) X 10*3/uL NRBC/100 WBC Diff (0.0-0.0) /100 WBCS Chloride 111 H (96-109) mmol/L Carbon Dioxide 19.8 L (20.0-27.5) mmol/L Anion Gap 8.20 L (10.00-18.00) mmol/L BUN 8.1 L (9.0-27.0) mg/dL BUN/Creatinine Ratio (12.00-20.00) Ratio POC Glucose (mg/dL) 117 H (70-110) mg/dL Calcium 7.9 L (8.7-10.3) mg/dL Magnesium (1.5-2.4) mg/dL Total Bilirubin <0.15 L (0.30-1.20) mg/dL Total Protein 5.0 L (6.2-8.2) g/dL Albumin 2.2 L (3.8-4.9) g/dL Albumin/Globulin Ratio 0.79 L (1.60-3.17) g/dL
[2022-09-29 16:50] LABS: Glucose,Whole Blood 124 mg/dL (70-110)
[2022-09-29] MEDS: LACTATED RINGERS 1,000 ML IV SCH (18:24)
[2022-09-29 20:27] LABS: Glucose,Whole Blood 104 mg/dL (70-110)
[2022-09-29] MEDS: risperiDONE 1 MG TAB PO SCH (21:23)
[2022-09-29] MEDS: DIVALPROEX 250 MG TABLET.DR PO SCH (21:23)
[2022-09-29] MEDS: SCOPOLAMINE 1 MG/72 HR PATCH TRANSDERM SCH (21:24)
[2022-09-30] MEDS: oxyCODONE-APAP 10-325MG 1 EACH TAB PO SCH ×6 (03:39→23:59)
[2022-09-30] MEDS: DEXTROSE 5%-0.45% NACL 1,000 ML IV SCH ×2 (05:09→19:49)
[2022-09-30 06:09] LABS: Glucose,Whole Blood 90 mg/dL (70-110)
[2022-09-30] MEDS: DIVALPROEX 500 MG TABLET.DR PO SCH (07:47)
[2022-09-30] MEDS: ENOXAPARIN 40 MG/0.4 ML SYRINGE SQ SCH (07:47)
[2022-09-30] MEDS: HYDROPHILIC CREAM 180 GM TUBE TOPICAL SCH (07:47)
[2022-09-30] MEDS: LACOSAMIDE 50 MG TABLET PO SCH ×2 (07:47→19:49)
[2022-09-30] MEDS: SERTRALINE 25 MG TAB PO SCH (07:48)
[2022-09-30] MEDS: PANTOPRAZOLE 40 MG/10 ML VIAL IV SCH (07:48)
[2022-09-30] MEDS: SERTRALINE 100 MG TAB PO SCH (07:48)
[2022-09-30] MEDS: SODIUM BICARBONATE TAB 650 MG TAB PO SCH ×2 (07:48→19:49)
[2022-09-30] MEDS: METOPROLOL TARTRATE 50 MG TAB PO SCH ×2 (07:48→19:49)
[2022-09-30 11:47] LABS: Glucose,Whole Blood 93 mg/dL (70-110)
--- NOTE | 2022-09-30 12:44 | P.PN ---
Subjective Progress Note Date: 09/30/22 Principal diagnosis: Bilateral lower extremity and sacral wound Patient is a 62-year-old -[place] female with multiple comorbidities including stroke chronic pain in this patient who is a bedbound and did have multiple contracture patient has been brought into the hospital for decreased appetite and possible placement for PEG tube , patient also had bilateral lower extremity and sacral wound prompting this consultation, patient did have a PEG tube placement on 09/25/2022 On today's evaluation that is 09/30/2022, the patient remains to be afebrile, the patient is breathing comfortably on room air, patient denies any chest pain no cough no vomiting or diarrhea has been reported by the nursing staff Objective - Vital Signs Vital signs: Vital Signs Temp 98.6 F 09/30/22 06:58 Pulse 100 09/30/22 06:58 Resp 18 09/30/22 06:58 BP 136/85 09/30/22 06:58 Pulse Ox 100 09/30/22 06:58 FiO2 Intake & Output 09/29/22 09/30/22 09/30/22 18:59 06:59 18:59 Intake Total 0 280 Balance 0 280 Weight 47.627 kg Intake: Blood Product 0 280 Rc Pheresis As-3 Unit 0 280 [id number] Other: Voiding Method Diaper Diaper Diaper Incontinent Incontinent Incontinent # Voids 3 # Bowel Movements 1 - Exam GENERAL DESCRIPTION: Middle-aged female lying in bed in no distress RESPIRATORY SYSTEM: Unlabored breathing , decreased breath sounds at bases HEART: S1 S2 regular rate and rhythm , ABDOMEN: Soft , no tenderness EXTREMITIES: Right lateral leg wound is currently trying out minimal surrounding redness or drainage - Labs CBC & Chem 7: 09/29/22 03:59 09/29/22 03:59 Labs: Abnormal Lab Results - Last 24 Hours (Table) 09/29/22 09/29/22 Range/Units 11:46 16:49 POC Glucose (mg/dL) 124 H (70-110) mg/dL Crossmatch See Detail Assessment and Plan (1) Decubitus skin ulcer Current Visit: Yes Status: Acute Code(s): L89.90 - PRESSURE ULCER OF UNSPECIFIED SITE, UNSPECIFIED STAGE SNOMED Code(s): 1382060709 Plan: 1patient with a multiple wounds to the bilateral lower extremity mostly pressure ulcers however they are currently covered with a dry scabs with no significant surrounding swelling redness recommend local wound care by keeping them dry and of the pressure no need for Medihoney, wound to the right lateral leg we suggested dry Aquacel silver dressing change every 48 hours however the family is refusing. Keep the area off the pressure and dry 2patient with a stage II sacral pressure ulcer but no cellulitis local wound care with a dry Aquacel silver dressing and keep the area of pressure. 3patient did have mild leukocytosis possible reactive as no evidence of any active infection at this point,the patient white count has normalized as of 09/29/2022 and the patient will monitor closely off antibiotic therapy Time with Patient: Less than 30
--- NOTE | 2022-09-30 13:57 | P.PN ---
Subjective Progress Note Date: 09/30/22 CHIEF COMPLAINT: Failure to thrive HISTORY OF PRESENT ILLNESS: Patient is status post PEG tube placement on 09/26/2022. Patient tolerating tube feeds. Tube feeds are currently at 50 mL per hour. She reports having bowel movements. She denies any pain. Denies any nausea vomiting. Afebrile. Medicine service did give 1 unit of blood for HGB 5.8 yesterday PHYSICAL EXAM: VITAL SIGNS: Reviewed. GENERAL:no acute distress. ABDOMEN: Soft. Nondistended. PEG tube site clean dry and intact. Minimal tenderness with palpation around PEG tube site NEUROLOGIC: Awake and able to answer some questions ASSESSMENT: 1. Failure to thrive status post PEG tube placement 2. Moderate protein calorie malnutrition 3. History of CVA PLAN: -Continue tube feedings per dietitian recommendations -Continue supportive care Physician Change Director note has been reviewed by physician. Signing provider agrees with the documented findings, assessment, and plan of care. Objective - Vital Signs Vital signs: Vital Signs Temp 98.6 F 09/30/22 06:58 Pulse 100 09/30/22 06:58 Resp 18 09/30/22 06:58 BP 136/85 09/30/22 06:58 Pulse Ox 100 09/30/22 06:58 FiO2 Intake & Output 09/29/22 09/30/22 09/30/22 18:59 06:59 18:59 Intake Total 0 280 Balance 0 280 Weight 47.627 kg Intake: Blood Product 0 280 Rc Pheresis As-3 Unit 0 280 [id number] Other: Voiding Method Diaper Diaper Diaper Incontinent Incontinent Incontinent # Voids 3 # Bowel Movements 1 - Labs CBC & Chem 7: 09/29/22 03:59 09/29/22 03:59 Labs: Abnormal Lab Results - Last 24 Hours (Table) 09/29/22 09/29/22 Range/Units 11:46 16:49 POC Glucose (mg/dL) 124 H (70-110) mg/dL Crossmatch See Detail
[2022-09-30] MEDS: LACTATED RINGERS 1,000 ML IV SCH (17:03)
[2022-09-30 17:04] LABS: Glucose,Whole Blood 120 mg/dL (70-110)
--- NOTE | 2022-09-30 18:50 | PN ---
PROGRESS NOTE SUBJECTIVE: Status post PEG tube placement. Tube feeds have been started at 50 mL an hour, had difficulty with getting the pay for her family who is upset. She has failure to thrive secondary to PEG tube placement, moderate protein calorie malnutrition, leg cellulitis and wounds secondary to malnutrition, history of CVA, history of seizures. PEG tube site is intact. PHYSICAL EXAMINATION: PSYCH: She is giving appropriate answers. LUNGS: Clear. GI: Soft. ASSESSMENT: Continue tube feedings. Supportive care. Hemoglobin is 5.8. We are going to give 1 unit of blood and get Hematology to reconsult due to severe anemia. Prognosis guarded. MMODL / IJN: [id number] /
[2022-09-30] MEDS: DIVALPROEX 250 MG TABLET.DR PO SCH (19:49)
[2022-09-30] MEDS: risperiDONE 1 MG TAB PO SCH (19:49)
[2022-09-30 20:42] LABS: Glucose,Whole Blood 113 mg/dL (70-110)
[2022-10-01] MEDS: oxyCODONE-APAP 10-325MG 1 EACH TAB PO SCH ×6 (04:50→23:42)
[2022-10-01 05:50] LABS: Anisocytosis Slight; Basophils % (A) 0 %; Eosinophils # (A) 0.2 k/uL (0-0.7); Eosinophils % (A) 2 %; HCT 25.9 % (34.0-46.0); HGB 7.8 gm/dL (11.4-16.0); Hypochromasia Moderate; Lymphocytes % (A) 24 %; MCHC 30.2 g/dL (31.0-37.0); MCV 82.7 fL (80.0-100.0); Mean Platelet Volume 8.1; Microcytosis Slight; Monocytes # (A) 0.7 k/uL (0-1.0); Monocytes % (A) 5 %; Neutrophils # (A) 8.8 k/uL (1.3-7.7); Neutrophils % (A) 68 %; Platelet Count 384 k/uL (150-450); Poikilocytosis Slight; RBC 3.13 m/uL (3.80-5.40); RDW 18.9 % (11.5-15.5)
[2022-10-01 06:01] LABS: ALT 12 U/L (4-34); AST 18 U/L (14-36); African American GFR (CKD) >90 (>60 ml/min/1.73 sqM); Albumin/Globulin Ratio 0.6; Alkaline Phosphatase 163 U/L (38-126); Anion Gap 4 mmol/L; Blood Urea Nitrogen 14 mg/dL (7-17); Calcium 7.4 mg/dL (8.4-10.2); Carbon Dioxide 21 mmol/L (22-30); Chloride 111 mmol/L (98-107); Globulin 3.2 g/dL; Glucose 105 mg/dL (74-99); Non-African American GFR(CKD) >90 (>60 ml/min/1.73 sqM); Potassium 4.9 mmol/L (3.5-5.1); Sodium 136 mmol/L (137-145); Total Bilirubin 0.2 mg/dL (0.2-1.3); Total Protein 5.2 g/dL (6.3-8.2)
[2022-10-01 06:15] LABS: Glucose,Whole Blood 117 mg/dL (70-110)
[2022-10-01] MEDS: PANTOPRAZOLE 40 MG/10 ML VIAL IV SCH (08:24)
[2022-10-01] MEDS: SODIUM BICARBONATE TAB 650 MG TAB PO SCH ×2 (08:25→21:04)
[2022-10-01] MEDS: SERTRALINE 100 MG TAB PO SCH (08:25)
[2022-10-01] MEDS: ENOXAPARIN 40 MG/0.4 ML SYRINGE SQ SCH (08:25)
[2022-10-01] MEDS: METOPROLOL TARTRATE 50 MG TAB PO SCH ×2 (08:25→21:04)
[2022-10-01] MEDS: LACOSAMIDE 50 MG TABLET PO SCH ×2 (08:26→21:03)
[2022-10-01] MEDS: DIVALPROEX 500 MG TABLET.DR PO SCH (08:26)
--- NOTE | 2022-10-01 10:51 | P.PN ---
Subjective Progress Note Date: 10/01/22 CHIEF COMPLAINT: Failure to thrive HISTORY OF PRESENT ILLNESS: Patient is status post PEG tube placement on 09/26/2022. Patient is tolerating tube feeds. Tube feeds are at goal of 50 mL per hour. She reports having bowel movements. She denies any pain. Denies any nausea vomiting. Afebrile. WBC is up at 13 Hgb up from 5.8 to 7.8 platelets 384 Na 136 potassium 4.9 creatinine 0.55 PHYSICAL EXAM: VITAL SIGNS: Reviewed. GENERAL:no acute distress. ABDOMEN: Soft. Nondistended. PEG tube site clean dry and intact. Nontender NEUROLOGIC: Awake and alert ASSESSMENT: 1. Failure to thrive status post PEG tube placement 2. Moderate protein calorie malnutrition 3. History of CVA PLAN: -Continue tube feedings -Continue supportive care Physician Acupuncturist note has been reviewed by physician. Signing provider agrees with the documented findings, assessment, and plan of care. Objective - Vital Signs Vital signs: Vital Signs Temp 99.6 F 10/01/22 07:15 Pulse 100 10/01/22 07:15 Resp 16 10/01/22 07:15 BP 121/83 10/01/22 07:15 Pulse Ox 98 10/01/22 07:15 FiO2 Intake & Output 09/30/22 10/01/22 10/01/22 18:59 06:59 18:59 Intake Total 6363 Balance 6363 Intake: Tube Feeding 5409 Other 954 Other: Voiding Method Diaper Diaper Incontinent Incontinent # Voids 5 - Labs CBC & Chem 7: 10/01/22 05:39 10/01/22 05:39 Labs: Abnormal Lab Results - Last 24 Hours (Table) 09/30/22 09/30/22 10/01/22 Range/Units 17:02 20:39 05:39 WBC 13.0 H (3.8-10.6) k/uL RBC 3.13 L (3.80-5.40) m/uL Hgb 7.8 L (11.4-16.0) gm/dL Hct 25.9 L (34.0-46.0) % MCHC 30.2 L (31.0-37.0) g/dL RDW 18.9 H (11.5-15.5) % Neutrophils # 8.8 H (1.3-7.7) k/uL Sodium (137-145) mmol/L Chloride (98-107) mmol/L Carbon Dioxide (22-30) mmol/L Glucose (74-99) mg/dL POC Glucose (mg/dL) 120 H 113 H (70-110) mg/dL Calcium (8.4-10.2) mg/dL Alkaline Phosphatase (38-126) U/L Total Protein (6.3-8.2) g/dL Albumin (3.5-5.0) g/dL 10/01/22 10/01/22 Range/Units 05:39 06:10 WBC (3.8-10.6) k/uL RBC (3.80-5.40) m/uL Hgb (11.4-16.0) gm/dL Hct (34.0-46.0) % MCHC (31.0-37.0) g/dL RDW (11.5-15.5) % Neutrophils # (1.3-7.7) k/uL Sodium 136 L (137-145) mmol/L Chloride 111 H (98-107) mmol/L Carbon Dioxide 21 L (22-30) mmol/L Glucose 105 H (74-99) mg/dL POC Glucose (mg/dL) 117 H (70-110) mg/dL Calcium 7.4 L (8.4-10.2) mg/dL Alkaline Phosphatase 163 H (38-126) U/L Total Protein 5.2 L (6.3-8.2) g/dL Albumin 2.0 L (3.5-5.0) g/dL
[2022-10-01 12:01] LABS: Glucose,Whole Blood 111 mg/dL (70-110)
--- NOTE | 2022-10-01 12:20 | FL ---
Intraoperative/procedural fluoroscopic services were provided. total of 0 submitted images to PACS. Kavon wang see the operative/procedural note for further details. DAP: 169.98 Exam Date: 10/01/2022 12:15 PM. Modified barium swallow for dysphagia. Consistencies administered: Various consistency of barium. Fluoro time: 1 minute 24 seconds No images were sent to PACS. Please see speech pathology report.
[2022-10-01] MEDS: HYDROPHILIC CREAM 180 GM TUBE TOPICAL SCH (12:54)
[2022-10-01] MEDS: DEXTROSE 5%-0.45% NACL 1,000 ML IV SCH ×2 (12:55→21:04)
[2022-10-01] MEDS: SERTRALINE 25 MG TAB PO SCH (12:55)
--- NOTE | 2022-10-01 15:26 | P.CONS ---
History of Present Illness - Reason for Consult Consult date: 10/01/22 anemia Requesting physician: Mohit Harley - Chief Complaint failure to thrive and wound care - History of Present Illness Ms. 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 We were consulted with regards to anemia. Patient was brought to the Emergency center due to failure to thrive, wound care, and possible peg tube placement. Patient had episode of seizures approx 3-4 weeks ago and was initially placed on hospice, however, family stated she began to return to baseline and took her off of hospice. Patient follows with wound care Center due to multiple wounds on bilateral lower extremities and coccyx. Hemoglobin on 09/29 was 5.8, and 1 unit of PRBCs was given at that time. Hemoglobin 7.8 today. Iron studies not consistent with SILVER. Upon review of labs patient began to have anemia since 2013. No reported blood in stool or urine. Patient denies pain but is reporting wanting to go home and is tearful. No other reported complaints at this time. Hem/onc hx: Patient was hospitalized at [facility] on 05/07/2022 for concerns for aspiration pneumonia. She would noticed to have microcytic anemia with elevated ferritin of 2224. Prior work-up for anemia on 07/28/2021 revealed no evidence of monoclonal gammopathy on immunofixation no monoclonal population of immunoglobulins. Vitamin B12 and folic acid were also found to be normal at that time. At the time of our initial consultation on 05/15/2022, hemoglobin electrophoresis was recommended and was found to have an elevated hemoglobin A2 of 4.2%, which was noted to be consistent with beta thalassemia. She did receive 1 unit of packed red blood cells on 05/15/2022. Of note, it is not clear if patient received blood transfusion prior to hemoglobin electrophoresis. She was started on Aranesp injections in the hospital. Per her son-in-law, there are no known blood disorders in the family. She is not currently on Aranesp and has not been since discharge. Patient was sent for further lab testing on 06/30/22, including anemia workup, with EPO level, hemoglobin electrophoresis and obtain beta thalassemia gene testing to assess for the presence of beta thalassemia. Iron, TIBC, and iron saturation were WNL, ferritin elevated at 1914, EPO 37.24, Vit B12 and folate WNL. However, copper, hemoglobin electrophoresis, and beta thalassemia gene testing were never obtained. I believe she may have component of beta thalassemia along with anemia of inflammation secondary to CKD. Review of Systems 10 point ROS is negative except as stated in HPI Past Medical History Past Medical History: CVA/TIA, Hyperlipidemia, Hypertension, Osteoarthritis (OA) Additional Past Medical History / Comment(s): ANEMIA, CVA WITH L ARM WEAKNESS AND bilateral LEG WEAKNESS, hx. 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 Past Psychological History: Anxiety, Depression, Schizophrenia Additional Psychological History / Comment(s): paranoid schizophrenia Smoking Status: Former smoker Past Alcohol Use History: Abuse, Heavy Additional Past Alcohol Use History / Comment(s): Stopped smoking 2010 Past Drug Use History: Cocaine Additional Drug Use History / Comment(s): No current use. Last used 17 yrs ago. - Past Family History Sister(s) Family Medical History: Myocardial Infarction ([place]) Father Family Medical History: Cancer Additional Family Medical History / Comment(s): throat, lung, and rectal cancer Mother Family Medical History: Myocardial Infarction ([place]) Additional Family Medical History / Comment(s): stroke Medications and Allergies Home Medications Medication Instructions Recorded Confirmed Type Divalproex [Depakote] 500 mg PO DAILY 02/20/22 09/22/22 History Divalproex [Depakote] 250 mg PO HS 04/24/22 09/22/22 History Lacosamide [Vimpat] 100 mg PO BID 07/03/22 09/22/22 History Metoprolol Tartrate [Lopressor] 50 mg PO BID 07/03/22 09/22/22 History Sertraline [Zoloft] 25 mg PO DAILY 07/03/22 09/22/22 History Sertraline [Zoloft] 100 mg PO DAILY 07/03/22 09/22/22 History risperiDONE [RisperDAL] 1 mg PO HS 07/03/22 09/22/22 History Cephalexin [Keflex] 500 mg PO BID 09/22/22 09/22/22 History oxyCODONE HCL/ACETAMINOPHEN 1 tab PO Q4H 09/22/22 09/22/22 History [Percocet 10-325 mg] Allergies Allergy/AdvReac Type Severity Reaction Status Date / Time hydromorphone [From Dilaudid] Allergy Swelling Verified 09/22/22 16:55 morphine Allergy Swelling Verified 09/22/22 16:55 Physical Exam Vitals: Vital Signs Temp Pulse Resp BP Pulse Ox 10/01/22 07:15 99.6 F 100 16 121/83 98 10/01/22 02:00 98.1 F 96 16 125/80 100 09/30/22 20:00 96.9 F L 103 H 17 130/83 98 Intake and Output 09/30/22 10/01/22 10/01/22 22:59 06:59 14:59 Intake Total 6363 Balance 6363 Intake: Tube Feeding 5409 Other 954 Other: Voiding Method Diaper Incontinent # Voids 5 - Constitutional General appearance: average body habitus, no acute distress - EENT Eyes: anicteric sclerae, EOMI ENT: hearing grossly normal - Respiratory Respiratory: bilateral: rales (rales in anterior lung [place] ) - Cardiovascular Rhythm: regular Heart sounds: normal: S1, S2 Abnormal Heart Sounds: no systolic murmur, no diastolic murmur, no rub, no S3 Gallop, no S4 Gallop, no click, no other - Gastrointestinal General gastrointestinal: soft, no tenderness - Integumentary multiple pressure ulcerations present. Right lateral bonilla, right heel, left lateral ankle, and coccyx Integumentary: pale - Neurologic contracture of LUE - Musculoskeletal Musculoskeletal: generalized weakness - Psychiatric pt is confused but is answering questions appropriately Results CBC & Chem 7: 10/01/22 05:39 10/01/22 05:39 Labs: Abnormal Lab Results - Last 24 Hours (Table) 09/30/22 09/30/22 10/01/22 Range/Units 17:02 20:39 05:39 WBC 13.0 H (3.8-10.6) k/uL RBC 3.13 L (3.80-5.40) m/uL Hgb 7.8 L (11.4-16.0) gm/dL Hct 25.9 L (34.0-46.0) % MCHC 30.2 L (31.0-37.0) g/dL RDW 18.9 H (11.5-15.5) % Neutrophils # 8.8 H (1.3-7.7) k/uL Sodium (137-145) mmol/L Chloride (98-107) mmol/L Carbon Dioxide (22-30) mmol/L Glucose (74-99) mg/dL POC Glucose (mg/dL) 120 H 113 H (70-110) mg/dL Calcium (8.4-10.2) mg/dL Alkaline Phosphatase (38-126) U/L Total Protein (6.3-8.2) g/dL Albumin (3.5-5.0) g/dL 10/01/22 10/01/22 10/01/22 Range/Units 05:39 06:10 11:59 WBC (3.8-10.6) k/uL RBC (3.80-5.40) m/uL Hgb (11.4-16.0) gm/dL Hct (34.0-46.0) % MCHC (31.0-37.0) g/dL RDW (11.5-15.5) % Neutrophils # (1.3-7.7) k/uL Sodium 136 L (137-145) mmol/L Chloride 111 H (98-107) mmol/L Carbon Dioxide 21 L (22-30) mmol/L Glucose 105 H (74-99) mg/dL POC Glucose (mg/dL) 117 H 111 H (70-110) mg/dL Calcium 7.4 L (8.4-10.2) mg/dL Alkaline Phosphatase 163 H (38-126) U/L Total Protein 5.2 L (6.3-8.2) g/dL Albumin 2.0 L (3.5-5.0) g/dL Assessment and Plan (1) Anemia Current Visit: No Status: Acute Priority: High Code(s): D64.9 - ANEMIA, UNSPECIFIED SNOMED Code(s): 784268214 Plan: Anemia: -Hx of anemia, noted since 2013 -Patient was hospitalized in 04/2022 and noticed to have microcytic anemia with elevated ferritin of 2224. Prior work-up for anemia on 07/28/2021 revealed no evidence of monoclonal gammopathy on immunofixation, no monoclonal population of immunoglobulins. Vitamin B12 and folic acid were also found to be normal at that time. At the time of our initial consultation on 05/15/2022, hemoglobin electrophoresis was recommended and was found to have an elevated hemoglobin A2 of 4.2%, which was noted to be consistent with beta thalassemia. She did receive 1 unit of packed red blood cells on 05/15/2022. Of note, it is not clear if patient recently received blood transfusion prior to hemoglobin electrophoresis. Patient was seen in clinic in follow up and sent for further lab testing on 06/30/22, including anemia workup, with EPO level, hemoglobin electrophoresis and beta thalassemia gene testing to assess for the presence of beta thalassemia. Iron, TIBC, and iron saturation were WNL, ferritin elevated at 1914, EPO 37.24, Vit B12 and folate WNL. However, copper, hemoglobin electro phoresis, and beta thalassemia gene testing were never obtained. -Hemoglobin on 09/29 was 5.8, and 1 unit of PRBCs was given at that time. Hemoglobin 7.8 today. Please transfuse for hemoglobin less than 7 or if symptomatic. Will continue to monitor CBC daily -Iron studies not consistent with SILVER. Further anemia workup and hemoglobin electrophoresis ordered -This is likely r/t anemia of inflammation superimposed by Beta thallessemia attests: I performed H&P and developed impression and plan of care for patient, discussed with dictator. I agree with dictated note, documented as a scribe
[2022-10-01 16:33] LABS: Glucose,Whole Blood 109 mg/dL (70-110)
[2022-10-01] MEDS: LACTATED RINGERS 1,000 ML IV SCH (19:11)
--- NOTE | 2022-10-01 20:03 | PN ---
PROGRESS NOTE A 62-year-old female with seizure history, multiple wounds on her legs, malnutrition severe nature, chronic dizziness, severe anemia, unclear etiology, renal disease. Consult Hematology for severe anemia. She had 1 unit of blood yesterday. Hemoglobin is up to 7.8, white count is 13. Sodium 136, potassium 4.9. Sugars mid 100s, albumin is 2.0. ASSESSMENT: Severe protein calorie malnutrition, seizure disorder, leg wounds. Continue with tube feedings. Wound care down the extremities with open wounds on her legs x4. Continue current treatment. Prognosis guarded. MMODL / IJN: [id number] /
[2022-10-01 20:35] LABS: Glucose,Whole Blood 111 mg/dL (70-110)
[2022-10-01] MEDS: DIVALPROEX 250 MG TABLET.DR PO SCH (21:03)
[2022-10-01] MEDS: risperiDONE 1 MG TAB PO SCH (21:03)
--- NOTE | 2022-10-01 22:14 | P.PN ---
Subjective Progress Note Date: 10/01/22 Principal diagnosis: Bilateral lower extremity and sacral wound Patient is a 62-year-old -[place] female with multiple comorbidities including stroke chronic pain in this patient who is a bedbound and did have multiple contracture patient has been brought into the hospital for decreased appetite and possible placement for PEG tube , patient also had bilateral lower extremity and sacral wound prompting this consultation, patient did have a PEG tube placement on 09/25/2022 On today's evaluation that is 10/01/2022, the patient continues to be afebrile, the patient is breathing comfortably on room air, patient denies any chest pain no cough no vomiting or diarrhea has been reported by the nursing staff, no new symptoms Objective - Vital Signs Vital signs: Vital Signs Temp 99.6 F 10/01/22 07:15 Pulse 100 10/01/22 07:15 Resp 16 10/01/22 07:15 BP 121/83 10/01/22 07:15 Pulse Ox 98 10/01/22 07:15 FiO2 Intake & Output 09/30/22 10/01/22 10/01/22 18:59 06:59 18:59 Intake Total 6363 Balance 6363 Intake: Tube Feeding 5409 Other 954 Other: Voiding Method Diaper Diaper Incontinent Incontinent # Voids 5 - Exam GENERAL DESCRIPTION: Middle-aged female lying in bed in no distress RESPIRATORY SYSTEM: Unlabored breathing , decreased breath sounds at bases HEART: S1 S2 regular rate and rhythm , ABDOMEN: Soft , no tenderness EXTREMITIES: Right lateral leg wound is currently trying out minimal surrounding redness or drainage - Labs CBC & Chem 7: 10/01/22 05:39 10/01/22 05:39 Labs: Abnormal Lab Results - Last 24 Hours (Table) 09/30/22 09/30/22 10/01/22 Range/Units 17:02 20:39 05:39 WBC 13.0 H (3.8-10.6) k/uL RBC 3.13 L (3.80-5.40) m/uL Hgb 7.8 L (11.4-16.0) gm/dL Hct 25.9 L (34.0-46.0) % MCHC 30.2 L (31.0-37.0) g/dL RDW 18.9 H (11.5-15.5) % Neutrophils # 8.8 H (1.3-7.7) k/uL Sodium (137-145) mmol/L Chloride (98-107) mmol/L Carbon Dioxide (22-30) mmol/L Glucose (74-99) mg/dL POC Glucose (mg/dL) 120 H 113 H (70-110) mg/dL Calcium (8.4-10.2) mg/dL Alkaline Phosphatase (38-126) U/L Total Protein (6.3-8.2) g/dL Albumin (3.5-5.0) g/dL 10/01/22 10/01/22 Range/Units 05:39 06:10 WBC (3.8-10.6) k/uL RBC (3.80-5.40) m/uL Hgb (11.4-16.0) gm/dL Hct (34.0-46.0) % MCHC (31.0-37.0) g/dL RDW (11.5-15.5) % Neutrophils # (1.3-7.7) k/uL Sodium 136 L (137-145) mmol/L Chloride 111 H (98-107) mmol/L Carbon Dioxide 21 L (22-30) mmol/L Glucose 105 H (74-99) mg/dL POC Glucose (mg/dL) 117 H (70-110) mg/dL Calcium 7.4 L (8.4-10.2) mg/dL Alkaline Phosphatase 163 H (38-126) U/L Total Protein 5.2 L (6.3-8.2) g/dL Albumin 2.0 L (3.5-5.0) g/dL Assessment and Plan (1) Decubitus skin ulcer Current Visit: Yes Status: Acute Code(s): L89.90 - PRESSURE ULCER OF UNSPECIFIED SITE, UNSPECIFIED STAGE SNOMED Code(s): 0287971153 Plan: 1patient with a multiple wounds to the bilateral lower extremity mostly pressure ulcers however they are currently covered with a dry scabs with no significant surrounding swelling redness recommend local wound care by keeping them dry and of the pressure no need for Medihoney, wound to the right lateral leg we suggested dry Aquacel silver dressing change every 48 hours however the family is refusing. Keep the area off the pressure and dry 2patient with a stage II sacral pressure ulcer but no cellulitis local wound care with a dry Aquacel silver dressing and keep the area of pressure. 3patient did have mild leukocytosis possible reactive as no evidence of any active infection at this point,the patient white count has normalized as of 09/29/2022 however the white count is slightly up to 13,000 today and will be monitored closely Time with Patient: Less than 30
[2022-10-02] MEDS: oxyCODONE-APAP 10-325MG 1 EACH TAB PO SCH ×6 (04:42→23:31)
[2022-10-02 06:42] LABS: Glucose,Whole Blood 129 mg/dL (70-110)
[2022-10-02 09:34] LABS: African American GFR (CKD) 106.1 (60.0-200.0); Albumin/Globulin Ratio 0.69 (1.60-3.17); Anion Gap 9.6 mmol/L (10.00-18.00); BUN/Creat Ratio 23.29 Ratio (12.00-20.00); Blood Urea Nitrogen 16.3 mg/dL (9.0-27.0); Calcium 7.9 mg/dL (8.7-10.3); Carbon Dioxide 19.4 mmol/L (20.0-27.5); Globulin 2.9 g/dL (1.6-3.3); Non-African American GFR(CKD) 91.6 (60.0-200.0); Potassium 5.3 mmol/L (3.5-5.5); Total Bilirubin 0.2 mg/dL (0.30-1.20); Total Protein 4.9 g/dL (6.2-8.2)
[2022-10-02 09:37] LABS: Basophils # (A) 0.02 X 10*3/uL (0.00-0.10); Basophils % (A) 0.2 %; Eosinophils % (A) 1.5 %; HGB 6.6 g/dL (12.0-15.0); Immature Grans, Automated 1.5 %; Lymphocytes # (A) 2.47 X 10*3/uL (0.90-5.00); Lymphocytes % (A) 18.8 %; MCH 25.1 pg (27.0-32.0); MCHC 31.4 g/dL (32.0-37.0); MCV 79.8 fL (80.0-97.0); Mean Platelet Volume 10.4 fL (9.5-12.2); Monocytes # (A) 2.11 X 10*3/uL (0.20-1.00); NRBC Per 100 WBC 0.2 /100 WBCS (0.0-0.0); Neutrophils # (A) 8.16 X 10*3/uL (1.80-7.70); Platelet Count 318 X 10*3/uL (140-440); RBC 2.63 X 10*6/uL (4.10-5.20); RDW 20.4 % (11.5-14.5); WBC 13.16 X 10*3/uL (4.50-10.00)
[2022-10-02] MEDS: ENOXAPARIN 40 MG/0.4 ML SYRINGE SQ SCH (10:46)
[2022-10-02] MEDS: PANTOPRAZOLE 40 MG/10 ML VIAL IV SCH (10:46)
[2022-10-02] MEDS: METOPROLOL TARTRATE 50 MG TAB PO SCH ×2 (10:47→20:18)
[2022-10-02] MEDS: LACOSAMIDE 50 MG TABLET PO SCH ×2 (10:47→20:18)
[2022-10-02] MEDS: SERTRALINE 100 MG TAB PO SCH (10:47)
[2022-10-02] MEDS: SERTRALINE 25 MG TAB PO SCH (10:47)
[2022-10-02] MEDS: SODIUM BICARBONATE TAB 650 MG TAB PO SCH ×2 (10:47→20:18)
[2022-10-02] MEDS: DIVALPROEX 500 MG TABLET.DR PO SCH (10:57)
[2022-10-02] MEDS: HYDROPHILIC CREAM 180 GM TUBE TOPICAL SCH (10:58)
[2022-10-02 11:17] LABS: Glucose,Whole Blood 114 mg/dL (70-110)
[2022-10-02] MEDS: LACTATED RINGERS 1,000 ML IV SCH (12:01)
--- NOTE | 2022-10-02 12:24 | P.PN ---
Subjective Progress Note Date: 10/02/22 Principal diagnosis: Bilateral lower extremity and sacral wound Patient is a 62-year-old -L[place]ian female with multiple comorbidities including stroke chronic pain in this patient who is a bedbound and did have multiple contracture patient has been brought into the hospital for decreased appetite and possible placement for PEG tube , patient also had bilateral lower extremity and sacral wound prompting this consultation, patient did have a PEG tube placement on 09/25/2022 On today's evaluation that is 10/02/2022, the patient remains to be afebrile, the patient is breathing comfortably on room air, patient denies any chest pain shortness of breath or cough, no vomiting or diarrhea has been reported by the nursing staff, patient mentioned feeling better wants to go home Objective - Vital Signs Vital signs: Vital Signs Temp 99.3 F 10/02/22 07:00 Pulse 95 10/02/22 07:00 Resp 16 10/02/22 07:00 BP 113/80 10/02/22 07:00 Pulse Ox 97 10/02/22 07:00 FiO2 Intake & Output 10/01/22 10/02/22 10/02/22 18:59 06:59 18:59 Intake Total 94439 Balance 00456 Weight 47.627 kg Intake: Tube Feeding 49869 Other: Voiding Method Diaper Diaper Diaper Incontinent Incontinent Incontinent - Exam GENERAL DESCRIPTION: Middle-aged female lying in bed in no distress RESPIRATORY SYSTEM: Unlabored breathing , decreased breath sounds at bases HEART: S1 S2 regular rate and rhythm , ABDOMEN: Soft , no tenderness EXTREMITIES: Right lateral leg wound is currently drying out no redness or drainage - Labs CBC & Chem 7: 10/02/22 05:50 10/02/22 05:50 Labs: Abnormal Lab Results - Last 24 Hours (Table) 09/29/22 10/01/22 10/01/22 Range/Units 03:59 11:59 20:34 WBC (4.50-10.00) X 10*3/uL RBC (4.10-5.20) X 10*6/uL Hgb (12.0-15.0) g/dL Hct (37.2-46.3) % MCV (80.0-97.0) fL MCH (27.0-32.0) pg MCHC (32.0-37.0) g/dL RDW (11.5-14.5) % Absolute Nucleated RBC (0.00-0.00) X 10*3/uL Immature Gran # (0.00-0.04) X 10*3/uL Neutrophils # (1.80-7.70) X 10*3/uL Monocytes # (0.20-1.00) X 10*3/uL NRBC/100 WBC Diff (0.0-0.0) /100 WBCS Carbon Dioxide (20.0-27.5) mmol/L Anion Gap (10.00-18.00) mmol/L BUN/Creatinine Ratio (12.00-20.00) Ratio POC Glucose (mg/dL) 111 H 111 H (70-110) mg/dL Calcium (8.7-10.3) mg/dL Total Bilirubin (0.30-1.20) mg/dL ALT (8-44) U/L Total Protein (6.2-8.2) g/dL Albumin (3.8-4.9) g/dL Albumin/Globulin Ratio (1.60-3.17) g/dL Vitamin B12 1465.0 H (200.0-944.0) pg/mL 10/02/22 10/02/22 10/02/22 Range/Units 05:50 05:50 06:40 WBC 13.16 H (4.50-10.00) X 10*3/uL RBC 2.63 L (4.10-5.20) X 10*6/uL Hgb 6.6 L* (12.0-15.0) g/dL Hct 21.0 L (37.2-46.3) % MCV 79.8 L (80.0-97.0) fL MCH 25.1 L (27.0-32.0) pg MCHC 31.4 L (32.0-37.0) g/dL RDW 20.4 H (11.5-14.5) % Absolute Nucleated RBC 0.03 H (0.00-0.00) X 10*3/uL Immature Gran # 0.20 H (0.00-0.04) X 10*3/uL Neutrophils # 8.16 H (1.80-7.70) X 10*3/uL Monocytes # 2.11 H (0.20-1.00) X 10*3/uL NRBC/100 WBC Diff 0.2 H (0.0-0.0) /100 WBCS Carbon Dioxide 19.4 L (20.0-27.5) mmol/L Anion Gap 9.60 L (10.00-18.00) mmol/L BUN/Creatinine Ratio 23.29 H (12.00-20.00) Ratio POC Glucose (mg/dL) 129 H (70-110) mg/dL Calcium 7.9 L (8.7-10.3) mg/dL Total Bilirubin 0.20 L (0.30-1.20) mg/dL ALT 7 L (8-44) U/L Total Protein 4.9 L (6.2-8.2) g/dL Albumin 2.0 L (3.8-4.9) g/dL Albumin/Globulin Ratio 0.69 L (1.60-3.17) g/dL Vitamin B12 (200.0-944.0) pg/mL Assessment and Plan (1) Decubitus skin ulcer Current Visit: Yes Status: Acute Code(s): L89.90 - PRESSURE ULCER OF UNSPECIFIED SITE, UNSPECIFIED STAGE SNOMED Code(s): 2716022748 Plan: 1patient with a multiple wounds to the bilateral lower extremity mostly pressure ulcers however they are currently covered with a dry scabs with no significant surrounding swelling redness recommend local wound care by keeping them dry and of the pressure no need for Medihoney, wound to the right lateral leg we suggested dry Aquacel silver dressing change every 48 hours however the family is refusing. Keep the area off the pressure and dry 2patient with a stage II sacral pressure ulcer but no cellulitis local wound care with a dry Aquacel silver dressing and keep the area of pressure. 3patient did have mild leukocytosis possible reactive as patient also have a drop in her hemoglobin being monitored by hematology oncology, we will go ahead and check a blood cultures CRP UA and monitor her clinical course closely
[2022-10-02] MEDS: DEXTROSE 5%-0.45% NACL 1,000 ML IV SCH ×2 (13:15→23:32)
--- NOTE | 2022-10-02 14:26 | P.PN ---
Subjective Progress Note Date: 10/02/22 CHIEF COMPLAINT: Failure to thrive HISTORY OF PRESENT ILLNESS: Patient is status post PEG tube placement on 09/26/2022. Patient is tolerating tube feeds. Tube feeds are at goal of 50 mL per hour. She reports having bowel movements. She denies any pain. Denies any nausea or vomiting. Afebrile. WBC 13.16 Hgb 7.8 down to 6.6 platelets 318 sodium 137 potassium is 5.3 creatinine 0.7 patient is scheduled to receive 1 unit of blood today PHYSICAL EXAM: VITAL SIGNS: Reviewed. GENERAL:no acute distress. ABDOMEN: Soft. Nondistended. PEG tube site clean dry and intact. Nontender NEUROLOGIC: Awake and alert ASSESSMENT: 1. Failure to thrive status post PEG tube placement 2. Moderate protein calorie malnutrition 3. History of CVA PLAN: -Continue tube feedings -Continue supportive care -Anemia workup per hematology Physician [facility] Dentist note has been reviewed by physician. Signing provider agrees with the documented findings, assessment, and plan of care. Objective - Vital Signs Vital signs: Vital Signs Temp 98.8 F 10/02/22 13:46 Pulse 73 10/02/22 13:46 Resp 14 10/02/22 13:46 BP 137/93 10/02/22 13:46 Pulse Ox 98 10/02/22 13:46 FiO2 Intake & Output 10/01/22 10/02/22 10/02/22 18:59 06:59 18:59 Intake Total 54113 Balance 44096 Weight 47.627 kg Intake: Tube Feeding 64031 Other: Voiding Method Diaper Diaper Diaper Incontinent Incontinent Incontinent - Labs CBC & Chem 7: 10/02/22 05:50 10/02/22 05:50 Labs: Abnormal Lab Results - Last 24 Hours (Table) 09/29/22 10/01/22 10/02/22 Range/Units 03:59 20:34 05:50 WBC 13.16 H (4.50-10.00) X 10*3/uL RBC 2.63 L (4.10-5.20) X 10*6/uL Hgb 6.6 L* (12.0-15.0) g/dL Hct 21.0 L (37.2-46.3) % MCV 79.8 L (80.0-97.0) fL MCH 25.1 L (27.0-32.0) pg MCHC 31.4 L (32.0-37.0) g/dL RDW 20.4 H (11.5-14.5) % Absolute Nucleated RBC 0.03 H (0.00-0.00) X 10*3/uL Immature Gran # 0.20 H (0.00-0.04) X 10*3/uL Neutrophils # 8.16 H (1.80-7.70) X 10*3/uL Monocytes # 2.11 H (0.20-1.00) X 10*3/uL NRBC/100 WBC Diff 0.2 H (0.0-0.0) /100 WBCS Carbon Dioxide (20.0-27.5) mmol/L Anion Gap (10.00-18.00) mmol/L BUN/Creatinine Ratio (12.00-20.00) Ratio POC Glucose (mg/dL) 111 H (70-110) mg/dL Calcium (8.7-10.3) mg/dL Total Bilirubin (0.30-1.20) mg/dL ALT (8-44) U/L Total Protein (6.2-8.2) g/dL Albumin (3.8-4.9) g/dL Albumin/Globulin Ratio (1.60-3.17) g/dL Vitamin B12 1465.0 H (200.0-944.0) pg/mL 10/02/22 10/02/22 10/02/22 Range/Units 05:50 06:40 11:16 WBC (4.50-10.00) X 10*3/uL RBC (4.10-5.20) X 10*6/uL Hgb (12.0-15.0) g/dL Hct (37.2-46.3) % MCV (80.0-97.0) fL MCH (27.0-32.0) pg MCHC (32.0-37.0) g/dL RDW (11.5-14.5) % Absolute Nucleated RBC (0.00-0.00) X 10*3/uL Immature Gran # (0.00-0.04) X 10*3/uL Neutrophils # (1.80-7.70) X 10*3/uL Monocytes # (0.20-1.00) X 10*3/uL NRBC/100 WBC Diff (0.0-0.0) /100 WBCS Carbon Dioxide 19.4 L (20.0-27.5) mmol/L Anion Gap 9.60 L (10.00-18.00) mmol/L BUN/Creatinine Ratio 23.29 H (12.00-20.00) Ratio POC Glucose (mg/dL) 129 H 114 H (70-110) mg/dL Calcium 7.9 L (8.7-10.3) mg/dL Total Bilirubin 0.20 L (0.30-1.20) mg/dL ALT 7 L (8-44) U/L Total Protein 4.9 L (6.2-8.2) g/dL Albumin 2.0 L (3.8-4.9) g/dL Albumin/Globulin Ratio 0.69 L (1.60-3.17) g/dL Vitamin B12 (200.0-944.0) pg/mL
[2022-10-02 16:33] LABS: Glucose,Whole Blood 104 mg/dL (70-110)
[2022-10-02] MEDS: risperiDONE 1 MG TAB PO SCH (20:18)
[2022-10-02] MEDS: DIVALPROEX 250 MG TABLET.DR PO SCH (20:19)
[2022-10-02] MEDS: SCOPOLAMINE 1 MG/72 HR PATCH TRANSDERM SCH (20:19)
[2022-10-02 21:00] LABS: Glucose,Whole Blood 100 mg/dL (70-110)
[2022-10-02] MEDS: diphenhydrAMINE 25 MG CAP PO PRN (23:31)
--- NOTE | 2022-10-02 23:45 | PN ---
PROGRESS NOTE SUBJECTIVE: She still has severe anemia. Hemoglobin is 6.6. She is getting tube feedings. Her white count is 13.16. BUN is 16, creatinine 0.7. Sugars mid 100s. OBJECTIVE: LUNGS: Clear. CARDIOVASCULAR: S1, S2. PSYCH: She has fair mood and affect. HEMATOLOGIC: 2+ Homans. ASSESSMENT: Acute on chronic anemia, leg cellulitis with open wounds with severe malnutrition. We will get Surgery reconsulted for tube feedings and transfuse 1 unit of blood for hemoglobin 6.6 with reconsult Hematology. Make sure she gets off blood thinners due to severe anemia, recurrent. Prognosis extremely guarded. Continue current treatment. Prognosis is guarded. Wait for Hematology recommendations. MMODL / IJN: [id number] /
[2022-10-03] MEDS: oxyCODONE-APAP 10-325MG 1 EACH TAB PO SCH ×6 (04:37→20:04)
[2022-10-03 06:04] LABS: Glucose,Whole Blood 103 mg/dL (70-110)
[2022-10-03 07:44] LABS: Anisocytosis Slight; HCT 28.1 % (34.0-46.0); HGB 9.1 gm/dL (11.4-16.0); Hypochromasia Slight; MCH 26.6 pg (25.0-35.0); MCHC 32.3 g/dL (31.0-37.0); MCV 82.3 fL (80.0-100.0); Mean Platelet Volume 9.1; Microcytosis Slight; Platelet Count 330 k/uL (150-450); Poikilocytosis Moderate; RBC 3.42 m/uL (3.80-5.40); RDW 18.7 % (11.5-15.5)
[2022-10-03] MEDS: PANTOPRAZOLE 40 MG/10 ML VIAL IV SCH (09:22)
[2022-10-03] MEDS: ENOXAPARIN 40 MG/0.4 ML SYRINGE SQ SCH (09:22)
[2022-10-03] MEDS: SERTRALINE 100 MG TAB PO SCH (09:23)
[2022-10-03] MEDS: LACOSAMIDE 50 MG TABLET PO SCH ×2 (09:23→20:05)
[2022-10-03] MEDS: SODIUM BICARBONATE TAB 650 MG TAB PO SCH ×2 (09:23→20:05)
[2022-10-03] MEDS: METOPROLOL TARTRATE 50 MG TAB PO SCH ×2 (09:23→20:05)
[2022-10-03] MEDS: HYDROPHILIC CREAM 180 GM TUBE TOPICAL SCH (09:24)
[2022-10-03] MEDS: SERTRALINE 25 MG TAB PO SCH (09:24)
[2022-10-03 09:26] LABS: Eosinophils # (M) 0.25 k/uL (0-0.7); Neutrophils % (M) 68 %; Nucleated Red Blood Cells 1 /100 WBC (0-0); Total Cells Counted 100
[2022-10-03 09:27] LABS: Lymphocytes # (M) 2.58 k/uL (1.0-4.8); Monocytes # (M) 1.11 k/uL (0-1.0); Neutrophils # (M) 8.36 k/uL (1.3-7.7); WBC 12.3 k/uL (3.8-10.6)
[2022-10-03] MEDS: DIVALPROEX SPRINKLE 125 MG CAP.SPRINK PEG/G-TUBE SCH ×2 (10:43→20:05)
[2022-10-03 11:06] LABS: ALT 9 U/L (8-44); AST 27 U/L (13-35); African American GFR (CKD) 97.2 (60.0-200.0); Albumin 2.2 g/dL (3.8-4.9); Albumin/Globulin Ratio 0.67 (1.60-3.17); Alkaline Phosphatase 106 U/L (41-126); BUN/Creat Ratio 24.83 Ratio (12.00-20.00); Blood Urea Nitrogen 18.7 mg/dL (9.0-27.0); Calcium 8.1 mg/dL (8.7-10.3); Carbon Dioxide 22.9 mmol/L (20.0-27.5); Chloride 107 mmol/L (96-109); Globulin 3.2 g/dL (1.6-3.3); Glucose 104 mg/dL (70-110); Non-African American GFR(CKD) 83.8 (60.0-200.0); Potassium 5.9 mmol/L (3.5-5.5); Sodium 136 mmol/L (135-145); Total Bilirubin <0.15 mg/dL (0.30-1.20); Total Protein 5.4 g/dL (6.2-8.2)
[2022-10-03] MEDS ORDERED: VANCOMYCIN IV PER PHARMACY 1 EACH MISC MISCELLANE PRN (11:29)
[2022-10-03 11:31] LABS: Glucose,Whole Blood 106 mg/dL (70-110)
[2022-10-03] MEDS ORDERED: VANCOMYCIN 1,000 MG in SODIUM CHLORIDE 0.9% 250 ML IVPB ONE (12:00)
--- NOTE | 2022-10-03 13:09 | P.PN ---
Subjective Progress Note Date: 10/03/22 CHIEF COMPLAINT: Failure to thrive HISTORY OF PRESENT ILLNESS: Patient is status post PEG tube placement on 09/26/2022. Patient is tolerating tube feeds. Tube feeds are at goal of 50 mL per hour. She reports having bowel movements. She denies any pain. Denies any nausea or vomiting. Afebrile. WBC 13-12.3 hgb 6.6 -9.1 after blood transfusion. Leukocytosis is being worked up per ID services. PHYSICAL EXAM: VITAL SIGNS: Reviewed. GENERAL:no acute distress. ABDOMEN: Soft. Nondistended. PEG tube site clean dry and intact. Nontender NEUROLOGIC: Awake and alert ASSESSMENT: 1. Failure to thrive status post PEG tube placement 2. Moderate protein calorie malnutrition 3. 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 Signing provider agrees with the documented findings, assessment, and plan of care. Objective - Vital Signs Vital signs: Vital Signs Temp 100.6 F H 10/03/22 07:29 Pulse 109 H 10/03/22 07:29 Resp 16 10/03/22 08:47 BP 114/71 10/03/22 07:29 Pulse Ox 95 10/03/22 07:29 FiO2 Intake & Output 10/02/22 10/03/22 10/03/22 18:59 06:59 18:59 Intake Total 275 2251 Balance 275 2251 Weight 47.627 kg Intake: Tube Feeding 1986 Blood Product 275 Rc Pheresis 2 As3 Unit 275 [id number] Other 265 Other: Voiding Method Diaper Diaper Diaper Incontinent Incontinent Incontinent - Labs CBC & Chem 7: 10/03/22 06:48 10/03/22 06:48 Labs: Abnormal Lab Results - Last 24 Hours (Table) 10/02/22 10/02/22 10/03/22 Range/Units 12:32 13:20 06:48 WBC 12.3 H (3.8-10.6) k/uL RBC 3.42 L (3.80-5.40) m/uL Hgb 9.1 L (11.4-16.0) gm/dL Hct 28.1 L (34.0-46.0) % RDW 18.7 H (11.5-15.5) % Neutrophils # (Manual) 8.36 H (1.3-7.7) k/uL Monocytes # (Manual) 1.11 H (0-1.0) k/uL Nucleated RBCs 1 H (0-0) /100 WBC Potassium (3.5-5.5) mmol/L Anion Gap (10.00-18.00) mmol/L BUN/Creatinine Ratio (12.00-20.00) Ratio Calcium (8.7-10.3) mg/dL Total Bilirubin (0.30-1.20) mg/dL C-Reactive Protein 4.30 H (0.00-0.80) mg/dL Total Protein (6.2-8.2) g/dL Albumin (3.8-4.9) g/dL Albumin/Globulin Ratio (1.60-3.17) g/dL Crossmatch See Detail 10/03/22 Range/Units 06:48 WBC (3.8-10.6) k/uL RBC (3.80-5.40) m/uL Hgb (11.4-16.0) gm/dL Hct (34.0-46.0) % RDW (11.5-15.5) % Neutrophils # (Manual) (1.3-7.7) k/uL Monocytes # (Manual) (0-1.0) k/uL Nucleated RBCs (0-0) /100 WBC Potassium 5.9 H (3.5-5.5) mmol/L Anion Gap 6.30 L (10.00-18.00) mmol/L BUN/Creatinine Ratio 24.83 H (12.00-20.00) Ratio Calcium 8.1 L (8.7-10.3) mg/dL Total Bilirubin <0.15 L (0.30-1.20) mg/dL C-Reactive Protein (0.00-0.80) mg/dL Total Protein 5.4 L (6.2-8.2) g/dL Albumin 2.2 L (3.8-4.9) g/dL Albumin/Globulin Ratio 0.67 L (1.60-3.17) g/dL Crossmatch Microbiology - Last 24 Hours (Table) 10/02/22 12:32 Blood Culture Gram Stain - Preliminary Blood 10/02/22 12:32 Blood Culture - Final Blood
--- NOTE | 2022-10-03 13:18 | P.PN ---
Subjective Progress Note Date: 10/03/22 Principal diagnosis: Bilateral lower extremity and sacral wound Patient is a 62-year-old -[place] female with multiple comorbidities including stroke chronic pain in this patient who is a bedbound and did have multiple contracture patient has been brought into the hospital for decreased appetite and possible placement for PEG tube , patient also had bilateral lower extremity and sacral wound prompting this consultation, patient did have a PEG tube placement on 09/25/2022 On today's evaluation that is 10/03/2022, the patient did have a low-grade fever 100.6F this morning the patient is breathing comfortably on room air, patient denies any chest pain shortness of breath however the patient has developed a congested cough but not bringing up any sputum no vomiting or diarrhea was reported by the nursing staff patient has been tolerating her tube feeds Objective - Vital Signs Vital signs: Vital Signs Temp 100.6 F H 10/03/22 07:29 Pulse 109 H 10/03/22 07:29 Resp 16 10/03/22 08:47 BP 114/71 10/03/22 07:29 Pulse Ox 95 10/03/22 07:29 FiO2 Intake & Output 10/02/22 10/03/22 10/03/22 18:59 06:59 18:59 Intake Total 275 2251 Balance 275 2251 Intake: Tube Feeding 1986 Blood Product 275 Rc Pheresis 2 As3 Unit 275 [id number] Other 265 Other: Voiding Method Diaper Diaper Diaper Incontinent Incontinent Incontinent - Exam GENERAL DESCRIPTION: Middle-aged female lying in bed in no distress RESPIRATORY SYSTEM: Unlabored breathing , decreased breath sounds at bases HEART: S1 S2 regular rate and rhythm , ABDOMEN: Soft , no tenderness EXTREMITIES: Right lateral leg wound is currently drying out no redness or drainage - Labs CBC & Chem 7: 10/03/22 06:48 10/03/22 06:48 Labs: Abnormal Lab Results - Last 24 Hours (Table) 10/02/22 10/02/22 10/03/22 Range/Units 12:32 13:20 06:48 WBC 12.3 H (3.8-10.6) k/uL RBC 3.42 L (3.80-5.40) m/uL Hgb 9.1 L (11.4-16.0) gm/dL Hct 28.1 L (34.0-46.0) % RDW 18.7 H (11.5-15.5) % Neutrophils # (Manual) 8.36 H (1.3-7.7) k/uL Monocytes # (Manual) 1.11 H (0-1.0) k/uL Nucleated RBCs 1 H (0-0) /100 WBC Potassium (3.5-5.5) mmol/L Anion Gap (10.00-18.00) mmol/L BUN/Creatinine Ratio (12.00-20.00) Ratio Calcium (8.7-10.3) mg/dL Total Bilirubin (0.30-1.20) mg/dL C-Reactive Protein 4.30 H (0.00-0.80) mg/dL Total Protein (6.2-8.2) g/dL Albumin (3.8-4.9) g/dL Albumin/Globulin Ratio (1.60-3.17) g/dL Crossmatch See Detail 10/03/22 Range/Units 06:48 WBC (3.8-10.6) k/uL RBC (3.80-5.40) m/uL Hgb (11.4-16.0) gm/dL Hct (34.0-46.0) % RDW (11.5-15.5) % Neutrophils # (Manual) (1.3-7.7) k/uL Monocytes # (Manual) (0-1.0) k/uL Nucleated RBCs (0-0) /100 WBC Potassium 5.9 H (3.5-5.5) mmol/L Anion Gap 6.30 L (10.00-18.00) mmol/L BUN/Creatinine Ratio 24.83 H (12.00-20.00) Ratio Calcium 8.1 L (8.7-10.3) mg/dL Total Bilirubin <0.15 L (0.30-1.20) mg/dL C-Reactive Protein (0.00-0.80) mg/dL Total Protein 5.4 L (6.2-8.2) g/dL Albumin 2.2 L (3.8-4.9) g/dL Albumin/Globulin Ratio 0.67 L (1.60-3.17) g/dL Crossmatch Microbiology - Last 24 Hours (Table) 10/02/22 12:32 Blood Culture - Final Blood Assessment and Plan (1) Leukocytosis Current Visit: Yes Status: Acute Code(s): D72.829 - ELEVATED WHITE BLOOD CELL COUNT, UNSPECIFIED SNOMED Code(s): 948288139 (2) Decubitus skin ulcer Current Visit: Yes Status: Acute Code(s): L89.90 - PRESSURE ULCER OF UNSPECIFIED SITE, UNSPECIFIED STAGE SNOMED Code(s): 0460620884 Plan: 1patient with a multiple wounds to the bilateral lower extremity mostly pressure ulcers however they are currently covered with a dry scabs with no significant surrounding swelling redness recommend local wound care by keeping them dry and of the pressure no need for Medihoney, wound to the right lateral leg will apply dry Aquacel silver dressing change every 48 hours and keep the area of the pressure. 2patient with a stage II sacral pressure ulcer but no cellulitis local wound care with keeping the area of pressure as the family refuses Aquacel silver dressing 3-patient now with a new fever and also noticed to have a positive blood culture with gram-positive cocci patient did have a congested cough we will check a chest x-ray blood cultures will be repeated will add vancomycin and monitored her clinical course closely Time with Patient: Less than 30
--- NOTE | 2022-10-03 13:30 | XR ---
EXAMINATION TYPE: XR chest 1V portable DATE OF EXAM: 10/03/2022 COMPARISON: 09/22/2022. HISTORY: Patient not eating. Looking to insert feeding tube. TECHNIQUE: Single frontal view of the chest is obtained. FINDINGS: There is extensive patchy airspace and interstitial changes throughout the right lung and to a lesser degree on the left side. Which is likely inflammatory or infectious. There appears to be [id number] bilateral pleural effusions. The cardiac silhouette does not appear enlarged. IMPRESSION: 1. Patchy airspace disease throughout the lungs bilaterally as above is suspicious for an inflammator y or infectious process. 2. [id number] bilateral pleural effusions.
[2022-10-03 14:07] LABS: Appearance,Urine Clear (Clear); Bacteria,Urine Rare /hpf; Bilirubin,Urine Negative (Negative); Blood,Urine Negative (Negative); Color,Urine Light Yellow; Glucose,Urine (UA) Negative (Negative); Ketones,Urine Negative (Negative); Leukocyte Esterase,Urine Small (Negative); Mucus,Urine Rare /hpf; Nitrite,Urine Negative (Negative); Protein,Urine Negative (Negative); RBC,Urine <1 /hpf (0-5); Specific Gravity,Urine 1.008 (1.001-1.035); Squamous Epithelial Cell,Urine 1 /hpf (0-4); Urobilinogen,Urine <2.0 mg/dL (<2.0); WBC,Urine 11 /hpf (0-5)
[2022-10-03] MEDS ORDERED: AZITHROMYCIN 500 MG in SODIUM CHLORIDE 0.9% 250 ML IVPB SCH (15:45)
[2022-10-03 16:41] LABS: Glucose,Whole Blood 98 mg/dL (70-110)
--- NOTE | 2022-10-03 17:38 | CT ---
Exam: CT Chest without contrast. Date: 10/03/2022. Comparison: None History: Failure to thrive. Technique: CT examination of the chest was performed without contrast. Coronal and sagittal reformats were performed. CT dose lowering techniques were used, to include: automated exposure control, adjus tment for patient size, and/or use of iterative reconstruction. FINDINGS: Mediastinum and Blank: There is no axillary, mediastinal or hilar lymphadenopathy. Pleural and Pericardial spaces: There are moderate bilateral pleural effusions. Upper Abdomen: The visualized upper abdomen is unremarkable. Cardiovascular: There is mild vascular calcification within the thoracic aorta without evidence of an eurysmal dilation. There are severe diffuse coronary artery calcifications. Lung Parenchyma and Airways: There is rather extensive patchy parenchymal groundglass changes through out the right lung which is likely inflammatory or infectious. A component of edema would also be a c onsideration. Left lung is relatively clear. There is compressive atelectasis of the lower lobes bila terally which is mild. Bones: There is a compression deformity along the superior endplate of L2 which is likely chronic. Mi ld compression deformity of a midthoracic vertebral body is also likely chronic. No acute osseous abn ormalities are otherwise seen. IMPRESSION: 1. Extensive groundglass and patchy parenchymal changes throughout the right lung is suspicious for a n inflammatory or infectious process. A component of edema is not excluded. 2. Moderate bilateral pleural effusions. 3. Significant body wall edema. 4. Severe coronary artery calcifications.
[2022-10-03] MEDS: DEXTROSE 5%-0.45% NACL 1,000 ML IV SCH (18:28)
[2022-10-03] MEDS: LACTATED RINGERS 1,000 ML IV SCH (19:48)
[2022-10-03] MEDS: risperiDONE 1 MG TAB PO SCH (20:05)
[2022-10-03 21:31] LABS: Glucose,Whole Blood 112 mg/dL (70-110)
[2022-10-04] MEDS: oxyCODONE-APAP 10-325MG 1 EACH TAB PO SCH ×5 (01:28→15:27)
[2022-10-04] MEDS: DEXTROSE 5%-0.45% NACL 1,000 ML IV SCH ×2 (05:22→21:34)
[2022-10-04] MEDS ORDERED: VANCOMYCIN 1,000 MG in SODIUM CHLORIDE 0.9% 250 ML IVPB SCH (06:00)
[2022-10-04 06:09] LABS: Glucose,Whole Blood 115 mg/dL (70-110)
--- NOTE | 2022-10-04 07:45 | P.PN ---
Subjective Progress Note Date: 10/04/22 Patient awake, responsive answering simple questions appropriately. No obvious bleeding. No fevers or chills. The patient denies any subjective cough, though there is some mild audible congestion Objective - Vital Signs Vital signs: Vital Signs Temp 98.5 F 10/04/22 06:50 Pulse 87 10/04/22 06:50 Resp 16 10/04/22 06:50 BP 94/60 10/04/22 06:50 Pulse Ox 100 10/04/22 06:50 FiO2 Intake & Output 10/03/22 10/04/22 10/04/22 18:59 06:59 18:59 Intake Total 0 Output Total 800 250 Balance -800 -250 Weight 47.627 kg 84.5 kg Intake: Oral 0 Output: Urine 800 250 Other: Voiding Method Diaper Diaper Incontinent Incontinent # Voids 3 # Bowel Movements 1 - Constitutional General appearance: Present: no acute distress - EENT Eyes: Present: EOMI ENT: Present: hearing grossly normal, normal oropharynx - Respiratory Respiratory: bilateral: rales - Cardiovascular Rhythm: regular Heart sounds: normal: S1, S2 - Gastrointestinal Gastrointestinal Comment(s): PEG tube in situ General gastrointestinal: Present: soft - Integumentary Integumentary Comment(s): The thinning of skin, anasarca, multiple wounds on lower extremities - Neurologic Neurologic: Present: focal deficits (Bilateral upper extremity contractures. Bilateral lower extremity weakness) - Musculoskeletal Musculoskeletal: Present: generalized weakness (.) - Labs CBC & Chem 7: 10/03/22 06:48 10/03/22 06:48 Labs: Abnormal Lab Results - Last 24 Hours (Table) 10/02/22 10/03/22 10/03/22 Range/Units 07:00 06:48 06:48 WBC 12.3 H (3.8-10.6) k/uL RBC 3.42 L (3.80-5.40) m/uL Hgb 9.1 L (11.4-16.0) gm/dL Hct 28.1 L (34.0-46.0) % RDW 18.7 H (11.5-15.5) % Neutrophils # (Manual) 8.36 H (1.3-7.7) k/uL Monocytes # (Manual) 1.11 H (0-1.0) k/uL Nucleated RBCs 1 H (0-0) /100 WBC Hemoglobin A1 95.7 L (96.5-97.8) % Hemoglobin A2 4.3 H (2.2-3.2) % Potassium 5.9 H (3.5-5.5) mmol/L Anion Gap 6.30 L (10.00-18.00) mmol/L BUN/Creatinine Ratio 24.83 H (12.00-20.00) Ratio POC Glucose (mg/dL) (70-110) mg/dL Calcium 8.1 L (8.7-10.3) mg/dL Total Bilirubin <0.15 L (0.30-1.20) mg/dL Total Protein 5.4 L (6.2-8.2) g/dL Albumin 2.2 L (3.8-4.9) g/dL Albumin/Globulin Ratio 0.67 L (1.60-3.17) g/dL Ur Leukocyte Esterase (Negative) Urine WBC (0-5) /hpf Urine Bacteria (None) /hpf Urine Mucus (None) /hpf 10/03/22 10/03/22 10/04/22 Range/Units 11:00 21:29 06:07 WBC (3.8-10.6) k/uL RBC (3.80-5.40) m/uL Hgb (11.4-16.0) gm/dL Hct (34.0-46.0) % RDW (11.5-15.5) % Neutrophils # (Manual) (1.3-7.7) k/uL Monocytes # (Manual) (0-1.0) k/uL Nucleated RBCs (0-0) /100 WBC Hemoglobin A1 (96.5-97.8) % Hemoglobin A2 (2.2-3.2) % Potassium (3.5-5.5) mmol/L Anion Gap (10.00-18.00) mmol/L BUN/Creatinine Ratio (12.00-20.00) Ratio POC Glucose (mg/dL) 112 H 115 H (70-110) mg/dL Calcium (8.7-10.3) mg/dL Total Bilirubin (0.30-1.20) mg/dL Total Protein (6.2-8.2) g/dL Albumin (3.8-4.9) g/dL Albumin/Globulin Ratio (1.60-3.17) g/dL Ur Leukocyte Esterase Small H (Negative) Urine WBC 11 H (0-5) /hpf Urine Bacteria Rare H (None) /hpf Urine Mucus Rare H (None) /hpf Microbiology - Last 24 Hours (Table) 10/02/22 12:32 Blood Culture Gram Stain - Preliminary Blood Blood Culture - Preliminary Staphylococcus epidermidis 10/03/22 11:00 Urine Culture - Preliminary Urine,Voided 10/02/22 12:32 Blood Culture - Final Blood Assessment and Plan (1) Anemia Narrative/Plan: The patient appears to have underlying microcytosis, due to beta thalassemia trait. She has had multiple hemoglobin electrophoresis studies showing the same. These were done after blood transfusions, but consistent results over several months indicate that the patient most likely truly has a beta thalassemia trait. - This is unlikely to cause any significant anemia. Patients typically will have low normal or slightly low hemoglobin. Therefore her anemia is most likely due to superimposed inflammation. As noted the patient has had multiple decubitus ulcers. While these appear to be covered over this time, this has been an ongoing problem. In addition during this admission this concern for a new pneumonia. - Additional workup pending. If the patient is found to have evidence of deficiencies based on Ryan for an MMA testing, supplementation will be started. - Continue supportive treatment in the meantime from the hematology standpoint, specifically transfusions to keep hemoglobin greater than 7. Current Visit: No Status: Acute Priority: High Code(s): D64.9 - ANEMIA, UNSPECIFIED SNOMED Code(s): 529772043 Plan: Defer to the admitting service and other consultants for management of her multiple other medical problems.
[2022-10-04] MEDS: PANTOPRAZOLE 40 MG/10 ML VIAL IV SCH (09:25)
[2022-10-04] MEDS: LACOSAMIDE 50 MG TABLET PO SCH ×2 (09:28→22:33)
[2022-10-04] MEDS: SERTRALINE 100 MG TAB PO SCH (09:28)
[2022-10-04] MEDS: DIVALPROEX SPRINKLE 125 MG CAP.SPRINK PEG/G-TUBE SCH ×2 (09:28→22:33)
[2022-10-04] MEDS: SODIUM BICARBONATE TAB 650 MG TAB PO SCH ×2 (09:28→22:33)
[2022-10-04] MEDS: SERTRALINE 25 MG TAB PO SCH (09:29)
[2022-10-04] MEDS: METOPROLOL TARTRATE 50 MG TAB PO SCH ×2 (09:30→22:33)
[2022-10-04] MEDS: ENOXAPARIN 40 MG/0.4 ML SYRINGE SQ SCH (09:30)
[2022-10-04] MEDS: PIPERACILLIN-TAZOBACTAM 3.375 GM in SODIUM CHLORIDE 0.9% 100 ML IVPB SCH ×3 (09:55→21:30)
--- NOTE | 2022-10-04 10:53 | P.PN ---
Subjective Progress Note Date: 10/04/22 Principal diagnosis: Bilateral lower extremity and sacral wound Patient is a 62-year-old -[place] female with multiple comorbidities including stroke chronic pain in this patient who is a bedbound and did have multiple contracture patient has been brought into the hospital for decreased appetite and possible placement for PEG tube , patient also had bilateral lower extremity and sacral wound prompting this consultation, patient did have a PEG tube placement on 09/25/2022 On today's evaluation that is 10/04/2022, the patient is afebrile this morning, the patient is breathing comfortably on room air, patient denies any chest pain shortness of breath , the patient did have a cough but not bringing up any sputum patient has been tolerating her tube feeds no vomiting or diarrhea reported by the nursing staff Objective - Vital Signs Vital signs: Vital Signs Temp 98.5 F 10/04/22 06:50 Pulse 87 10/04/22 09:30 Resp 16 10/04/22 06:50 BP 115/79 10/04/22 09:30 Pulse Ox 100 10/04/22 06:50 FiO2 Intake & Output 10/03/22 10/04/22 10/04/22 18:59 06:59 18:59 Intake Total 0 Output Total 800 250 Balance -800 -250 Weight 47.627 kg 84.5 kg Intake: Oral 0 Output: Urine 800 250 Other: Voiding Method Diaper Diaper Incontinent Incontinent # Voids 3 # Bowel Movements 1 - Exam GENERAL DESCRIPTION: Middle-aged female lying in bed in no distress RESPIRATORY SYSTEM: Unlabored breathing , decreased breath sounds at bases HEART: S1 S2 regular rate and rhythm , ABDOMEN: Soft , no tenderness EXTREMITIES: Right lateral leg wound is currently drying out no redness or drainage - Labs CBC & Chem 7: 10/03/22 06:48 10/03/22 06:48 Labs: Abnormal Lab Results - Last 24 Hours (Table) 10/02/22 10/03/22 10/03/22 Range/Units 07:00 06:48 11:00 Hemoglobin A1 95.7 L (96.5-97.8) % Hemoglobin A2 4.3 H (2.2-3.2) % Potassium 5.9 H (3.5-5.5) mmol/L Anion Gap 6.30 L (10.00-18.00) mmol/L BUN/Creatinine Ratio 24.83 H (12.00-20.00) Ratio POC Glucose (mg/dL) (70-110) mg/dL Calcium 8.1 L (8.7-10.3) mg/dL Total Bilirubin <0.15 L (0.30-1.20) mg/dL Total Protein 5.4 L (6.2-8.2) g/dL Albumin 2.2 L (3.8-4.9) g/dL Albumin/Globulin Ratio 0.67 L (1.60-3.17) g/dL Ur Leukocyte Esterase Small H (Negative) Urine WBC 11 H (0-5) /hpf Urine Bacteria Rare H (None) /hpf Urine Mucus Rare H (None) /hpf 10/03/22 10/04/22 Range/Units 21:29 06:07 Hemoglobin A1 (96.5-97.8) % Hemoglobin A2 (2.2-3.2) % Potassium (3.5-5.5) mmol/L Anion Gap (10.00-18.00) mmol/L BUN/Creatinine Ratio (12.00-20.00) Ratio POC Glucose (mg/dL) 112 H 115 H (70-110) mg/dL Calcium (8.7-10.3) mg/dL Total Bilirubin (0.30-1.20) mg/dL Total Protein (6.2-8.2) g/dL Albumin (3.8-4.9) g/dL Albumin/Globulin Ratio (1.60-3.17) g/dL Ur Leukocyte Esterase (Negative) Urine WBC (0-5) /hpf Urine Bacteria (None) /hpf Urine Mucus (None) /hpf Microbiology - Last 24 Hours (Table) 10/02/22 12:32 Blood Culture Gram Stain - Preliminary Blood Blood Culture - Preliminary Staphylococcus epidermidis 10/03/22 11:00 Urine Culture - Preliminary Urine,Voided 10/02/22 12:32 Blood Culture - Final Blood Assessment and Plan (1) Leukocytosis Current Visit: Yes Status: Acute Code(s): D72.829 - ELEVATED WHITE BLOOD CELL COUNT, UNSPECIFIED SNOMED Code(s): 205905092 (2) Decubitus skin ulcer Current Visit: Yes Status: Acute Code(s): L89.90 - PRESSURE ULCER OF UNSPECIFIED SITE, UNSPECIFIED STAGE SNOMED Code(s): 0583518906 Plan: 1patient with a multiple wounds to the bilateral lower extremity mostly pressure ulcers however they are currently covered with a dry scabs with no significant surrounding swelling redness recommend local wound care by keeping them dry and of the pressure no need for Medihoney, wound to the right lateral leg will apply dry Aquacel silver dressing change every 48 hours and keep the area of the pressure. 2patient with a stage II sacral pressure ulcer but no cellulitis local wound care with keeping the area of pressure as the family refuses Aquacel silver dressing 3-patient positive blood culture with staph epi likely skin contamination and we will discontinue vancomycin 4patient with a fever and left-sided pneumonia questionably aspiration etiology discontinue Rocephin and Zithromax start the patient on Zosyn Time with Patient: Less than 30
[2022-10-04 11:31] LABS: Basophils # (A) 0.03 X 10*3/uL (0.00-0.10); Basophils % (A) 0.2 %; Eosinophils # (A) 0.26 X 10*3/uL (0.04-0.35); Lymphocytes # (A) 2.55 X 10*3/uL (0.90-5.00); Lymphocytes % (A) 19.3 %; MCH 26.1 pg (27.0-32.0); MCV 81.7 fL (80.0-97.0); Mean Platelet Volume 10.9 fL (9.5-12.2); Monocytes # (A) 1.85 X 10*3/uL (0.20-1.00); NRBC Per 100 WBC 0 /100 WBCS (0.0-0.0); Neutrophils # (A) 8.27 X 10*3/uL (1.80-7.70); Neutrophils % (A) 62.5 %; Platelet Count 349 X 10*3/uL (140-440); RBC 3.06 X 10*6/uL (4.10-5.20); RDW 20.4 % (11.5-14.5); WBC 13.22 X 10*3/uL (4.50-10.00)
[2022-10-04 11:51] LABS: Glucose,Whole Blood 113 mg/dL (70-110)
[2022-10-04 12:02] LABS: African American GFR (CKD) 88.3 (60.0-200.0); Anion Gap 5.5 mmol/L (10.00-18.00); BUN/Creat Ratio 26.87 Ratio (12.00-20.00); Blood Urea Nitrogen 21.9 mg/dL (9.0-27.0); C Reactive Protein 11.1 mg/dL (0.00-0.80); Calcium 7.9 mg/dL (8.7-10.3); Carbon Dioxide 22.9 mmol/L (20.0-27.5); Non-African American GFR(CKD) 76.2 (60.0-200.0); Potassium 5.6 mmol/L (3.5-5.5)
--- NOTE | 2022-10-04 16:16 | PN ---
PROGRESS NOTE SUBJECTIVE: A 62-year-old female with failed swallow eval. She is on PEG tube, been rehydrated. Hemoglobins 9.1 after transfusion of 1 unit of blood yesterday. Potassium is 5.9, sodium is 136, total bilirubin is negative. Urine has 11 white cells, small leukocyte esterase. Given appropriate answers. Temp 99.2, T-max is 100.6, pulse 106 to 109, respiratory rate 16 to 18, blood pressure 129/81, O2 is 97% on room air. ASSESSMENT AND PLAN: Due to low-grade fever, chest x-ray was ordered. Patchy airspace disease throughout the lung suspicious for inflammatory infectious process. Pleural effusions. Continue with antibiotics. Get pulmonary consult. Prognosis guarded. Continue with PEG tube feedings for failed swallow eval. Suspect aspiration pneumonia. MMODL / IJN: [id number] /
[2022-10-04 16:50] LABS: Glucose,Whole Blood 105 mg/dL (70-110)
--- NOTE | 2022-10-04 18:44 | P.CNPUL ---
History of Present Illness Consult date: 10/04/22 Reason for consult: pneumonia Chief complaint: Cough shortness of breath History of present illness: Patient is a 62-year-old female with history of recurrent seizures, CVA, chronic contracture of the left extremity advised intervention was admitted from the emergency department with failure to thrive, wound care, and possible peg tube placement. Patient had episode of seizures approx 3-4 weeks ago and was initially placed on hospice, however, family stated she began to return to baseline and took her off of hospice. Patient follows with wound care Center due to multiple wounds on bilateral lower extremities and coccyx. Hemoglobin on 09/29 was 5.8, and 1 unit of PRBCs was given at that time. Hemoglobin 7.8 today. Iron studies not consistent with SILVER. Upon review of labs patient began to have anemia since 2013. No reported blood in stool or urine. Patient denies pain but is reporting wanting to go home and is tearful. No other reported complaints at this time. Recent chest x-ray on October 03 revealed bilateral patchy inflammatory processes and small effusion suggestive of aspiration pneumonia, patient have a PEG tube now being fed through the PEG tube computed tomography scan of the chest bilateral basal pneumonia predominantly on the right lung likely suggestive of aspiration pneumonia, bilateral pleural effusion small to moderate with third spacing patient is mostly nonverbal and noncommunicative but sometimes respond appropriately with simple response Review of Systems ROS unobtainable: due to mental status Past Medical History Past Medical History: CVA/TIA, Hyperlipidemia, Hypertension, Osteoarthritis (OA) Additional Past Medical History / Comment(s): ANEMIA, CVA WITH L ARM WEAKNESS AND bilateral LEG WEAKNESS, hx. gout, PANCREATITIS, pseudoseizures, UTI, gallstones, tremors, hx multiple brain aneursyms History of Any Multi-Drug Resistant Organisms: None Reported Date of last positivie culture/infection: 03/18/18 ESBL E.coli MDRO Source:: Urine Past Surgical History: Section, Cholecystectomy, Orthopedic Surgery Additional Past Surgical History / Comment(s): hx aneurysms- COILS AND STENTS TO BRAIN, repair tendons r/t gout BILATERAL FEET; Pain pump inserted on 04/21/22 Past Anesthesia/Blood Transfusion Reactions: No Reported Reaction Additional Past Anesthesia/Blood Transfusion Reaction / Comment(s): PT HAS HAD BLOOD TRANSFUSIONS FOR ANEMIA-NO REACTION. Past Psychological History: Anxiety, Depression, Schizophrenia Additional Psychological History / Comment(s): paranoid schizophrenia Smoking Status: Former smoker Past Alcohol Use History: Abuse, Heavy Additional Past Alcohol Use History / Comment(s): Stopped smoking 2010 Past Drug Use History: Cocaine Additional Drug Use History / Comment(s): No current use. Last used 17 yrs ago. - Past Family History Sister(s) Family Medical History: Myocardial Infarction (NE) Father Family Medical History: Cancer Additional Family Medical History / Comment(s): throat, lung, and rectal cancer Mother Family Medical History: Myocardial Infarction ([place]) Additional Family Medical History / Comment(s): stroke Medications and Allergies Home Medications Medication Instructions Recorded Confirmed Type Divalproex [Depakote] 500 mg PO DAILY 02/20/22 09/22/22 History Divalproex [Depakote] 250 mg PO HS 04/24/22 09/22/22 History Lacosamide [Vimpat] 100 mg PO BID 07/03/22 09/22/22 History Metoprolol Tartrate [Lopressor] 50 mg PO BID 07/03/22 09/22/22 History Sertraline [Zoloft] 25 mg PO DAILY 07/03/22 09/22/22 History Sertraline [Zoloft] 100 mg PO DAILY 07/03/22 09/22/22 History risperiDONE [RisperDAL] 1 mg PO HS 07/03/22 09/22/22 History Cephalexin [Keflex] 500 mg PO BID 09/22/22 09/22/22 History oxyCODONE HCL/ACETAMINOPHEN 1 tab PO Q4H 09/22/22 09/22/22 History [Percocet 10-325 mg] Allergies Allergy/AdvReac Type Severity Reaction Status Date / Time hydromorphone [From Dilaudid] Allergy Swelling Verified 09/22/22 16:55 morphine Allergy Swelling Verified 09/22/22 16:55 Physical Exam Vitals: Vital Signs Temp Pulse Pulse Resp BP BP Pulse Ox 10/04/22 14:10 98.9 F 87 16 119/84 98 10/04/22 09:30 87 115/79 10/04/22 06:50 98.5 F 87 16 94/60 100 10/04/22 01:43 90.2 F L 90 15 105/65 100 10/03/22 18:49 98.5 F 100 15 117/73 95 Intake and Output 10/04/22 10/04/22 10/04/22 06:59 14:59 22:59 Output Total 250 200 Balance -250 -200 Output: Urine 250 200 Other: Voiding Method Diaper Incontinent External Catheter Weight 84.5 kg - Constitutional General appearance: average body habitus, cooperative, disheveled - EENT Eyes: PERRLA ENT: hard of hearing Ears: bilateral: normal - Neck Neck: normal ROM Carotids: bilateral: upstroke normal Thyroid: bilateral: normal size - Respiratory Respiratory: bilateral: diminished, dullness - Cardiovascular Rhythm: regular Heart sounds: normal: S1, S2 - Integumentary Integumentary: decreased turgor - Musculoskeletal Musculoskeletal: strength equal bilaterally Results - Laboratory Findings CBC and BMP: 10/04/22 06:37 10/04/22 06:37 PT/INR, D-dimer PT 10.4 sec (9.0-12.0) 09/22/22 19:53 INR 1.0 (<1.2) 09/22/22 19:53 Abnormal lab findings: Abnormal Labs 09/22/22 09/22/22 09/22/22 08:32 17:22 19:53 WBC 12.5 H RBC 3.54 L Hgb 8.8 L Hct 29.1 L MCV MCH 24.8 L MCHC 30.2 L RDW 20.1 H Plt Count MPV Absolute Nucleated RBC Immature Gran # Neutrophils # Neutrophils # (Manual) 7.88 H Monocytes # Monocytes # (Manual) 1.25 H Nucleated RBCs NRBC/100 WBC Diff Hemoglobin A1 Hemoglobin A2 Sodium Potassium Chloride Carbon Dioxide Anion Gap BUN 23 H BUN/Creatinine Ratio Glucose 101 H POC Glucose (mg/dL) Calcium Magnesium 1.3 L Iron TIBC Transferrin Ferritin Total Bilirubin ALT Alkaline Phosphatase C-Reactive Protein Total Protein Albumin 3.3 L Albumin/Globulin Ratio Lipase 21 L Vitamin B12 TSH 4.960 H Ur Leukocyte Esterase Small H Urine WBC 13 H Urine Bacteria Rare H Urine Mucus Crossmatch 09/24/22 09/24/22 09/25/22 06:08 06:08 09:38 WBC RBC 2.87 L Hgb 7.2 L D Hct 23.8 L MCV MCH MCHC 30.4 L RDW 20.4 H Plt Count MPV Absolute Nucleated RBC Immature Gran # Neutrophils # Neutrophils # (Manual) Monocytes # Monocytes # (Manual) Nucleated RBCs NRBC/100 WBC Diff Hemoglobin A1 Hemoglobin A2 Sodium Potassium 6.2 H* Chloride 115 H 119 H Carbon Dioxide 20 L 15 L Anion Gap BUN BUN/Creatinine Ratio Glucose 69 L 57 L POC Glucose (mg/dL) Calcium 7.9 L 8.3 L Magnesium Iron TIBC Transferrin Ferritin Total Bilirubin ALT Alkaline Phosphatase C-Reactive Protein Total Protein Albumin Albumin/Globulin Ratio Lipase Vitamin B12 TSH Ur Leukocyte Esterase Urine WBC Urine Bacteria Urine Mucus Crossmatch 09/25/22 09/25/22 09/25/22 14:45 14:45 16:52 WBC 16.68 H RBC 2.75 L Hgb 6.7 L* Hct 21.9 L MCV 79.6 L MCH 24.4 L MCHC 30.6 L RDW 23.2 H Plt Count 448 H MPV 12.9 H Absolute Nucleated RBC Immature Gran # Neutrophils # Neutrophils # (Manual) Monocytes # Monocytes # (Manual) Nucleated RBCs NRBC/100 WBC Diff Hemoglobin A1 Hemoglobin A2 Sodium Potassium Chloride Carbon Dioxide Anion Gap BUN BUN/Creatinine Ratio Glucose POC Glucose (mg/dL) 63 L Calcium Magnesium Iron 21 L TIBC 121 L Transferrin 86.6 L Ferritin 1769.0 H Total Bilirubin ALT Alkaline Phosphatase C-Reactive Protein Total Protein Albumin Albumin/Globulin Ratio Lipase Vitamin B12 TSH Ur Leukocyte Esterase Urine WBC Urine Bacteria Urine Mucus Crossmatch 09/26/22 09/26/22 09/26/22 05:04 05:04 05:04 WBC 11.4 H RBC 3.08 L Hgb 7.6 L Hct 25.9 L MCV MCH 24.6 L MCHC 29.2 L RDW 20.1 H Plt Count MPV Absolute Nucleated RBC Immature Gran # Neutrophils # Neutrophils # (Manual) Monocytes # Monocytes # (Manual) Nucleated RBCs NRBC/100 WBC Diff Hemoglobin A1 Hemoglobin A2 Sodium Potassium Chloride 113 H Carbon Dioxide 19 L Anion Gap BUN BUN/Creatinine Ratio Glucose POC Glucose (mg/dL) Calcium 8.2 L Magnesium Iron TIBC Transferrin Ferritin Total Bilirubin ALT Alkaline Phosphatase C-Reactive Protein Total Protein 5.9 L Albumin 2.4 L Albumin/Globulin Ratio Lipase Vitamin B12 TSH Ur Leukocyte Esterase Urine WBC Urine Bacteria Urine Mucus Crossmatch See Detail 09/27/22 09/27/22 09/27/22 05:45 16:27 20:12 WBC RBC Hgb Hct MCV MCH MCHC RDW Plt Count MPV Absolute Nucleated RBC Immature Gran # Neutrophils # Neutrophils # (Manual) Monocytes # Monocytes # (Manual) Nucleated RBCs NRBC/100 WBC Diff Hemoglobin A1 Hemoglobin A2 Sodium Potassium Chloride Carbon Dioxide Anion Gap BUN BUN/Creatinine Ratio Glucose POC Glucose (mg/dL) 113 H 130 H 111 H Calcium Magnesium Iron TIBC Transferrin Ferritin Total Bilirubin ALT Alkaline Phosphatase C-Reactive Protein Total Protein Albumin Albumin/Globulin Ratio Lipase Vitamin B12 TSH Ur Leukocyte Esterase Urine WBC Urine Bacteria Urine Mucus Crossmatch 09/28/22 09/28/22 09/28/22 06:20 11:16 20:28 WBC RBC Hgb Hct MCV MCH MCHC RDW Plt Count MPV Absolute Nucleated RBC Immature Gran # Neutrophils # Neutrophils # (Manual) Monocytes # Monocytes # (Manual) Nucleated RBCs NRBC/100 WBC Diff Hemoglobin A1 Hemoglobin A2 Sodium Potassium Chloride Carbon Dioxide Anion Gap BUN BUN/Creatinine Ratio Glucose POC Glucose (mg/dL) 129 H 116 H 123 H Calcium Magnesium Iron TIBC Transferrin Ferritin Total Bilirubin ALT Alkaline Phosphatase C-Reactive Protein Total Protein Albumin Albumin/Globulin Ratio Lipase Vitamin B12 TSH Ur Leukocyte Esterase Urine WBC Urine Bacteria Urine Mucus Crossmatch 09/29/22 09/29/22 09/29/22 03:59 03:59 03:59 WBC RBC 2.40 L Hgb 5.8 L* Hct 18.4 L* MCV 76.7 L MCH 24.2 L MCHC 31.5 L RDW 20.5 H Plt Count MPV Absolute Nucleated RBC 0.02 H Immature Gran # 0.06 H Neutrophils # Neutrophils # (Manual) Monocytes # Monocytes # (Manual) Nucleated RBCs NRBC/100 WBC Diff 0.3 H Hemoglobin A1 Hemoglobin A2 Sodium Potassium Chloride 111 H 111 H Carbon Dioxide 16.9 L 19.8 L Anion Gap 8.20 L BUN 8.3 L 8.1 L BUN/Creatinine Ratio 11.86 L Glucose POC Glucose (mg/dL) Calcium 7.8 L 7.9 L Magnesium 1.4 L Iron TIBC Transferrin Ferritin Total Bilirubin <0.15 L <0.15 L ALT Alkaline Phosphatase C-Reactive Protein Total Protein 5.1 L 5.0 L Albumin 2.0 L 2.2 L Albumin/Globulin Ratio 0.65 L 0.79 L Lipase Vitamin B12 TSH Ur Leukocyte Esterase Urine WBC Urine Bacteria Urine Mucus Crossmatch 09/29/22 09/29/22 09/29/22 03:59 11:28 11:46 WBC RBC Hgb Hct MCV MCH MCHC RDW Plt Count MPV Absolute Nucleated RBC Immature Gran # Neutrophils # Neutrophils # (Manual) Monocytes # Monocytes # (Manual) Nucleated RBCs NRBC/100 WBC Diff Hemoglobin A1 Hemoglobin A2 Sodium Potassium Chloride Carbon Dioxide Anion Gap BUN BUN/Creatinine Ratio Glucose POC Glucose (mg/dL) 117 H Calcium Magnesium Iron TIBC Transferrin Ferritin Total Bilirubin ALT Alkaline Phosphatase C-Reactive Protein Total Protein Albumin Albumin/Globulin Ratio Lipase Vitamin B12 1465.0 H TSH Ur Leukocyte Esterase Urine WBC Urine Bacteria Urine Mucus Crossmatch See Detail 09/29/22 09/30/22 09/30/22 16:49 17:02 20:39 WBC RBC Hgb Hct MCV MCH MCHC RDW Plt Count MPV Absolute Nucleated RBC Immature Gran # Neutrophils # Neutrophils # (Manual) Monocytes # Monocytes # (Manual) Nucleated RBCs NRBC/100 WBC Diff Hemoglobin A1 Hemoglobin A2 Sodium Potassium Chloride Carbon Dioxide Anion Gap BUN BUN/Creatinine Ratio Glucose POC Glucose (mg/dL) 124 H 120 H 113 H Calcium Magnesium Iron TIBC Transferrin Ferritin Total Bilirubin ALT Alkaline Phosphatase C-Reactive Protein Total Protein Albumin Albumin/Globulin Ratio Lipase Vitamin B12 TSH Ur Leukocyte Esterase Urine WBC Urine Bacteria Urine Mucus Crossmatch 10/01/22 10/01/22 10/01/22 05:39 05:39 06:10 WBC 13.0 H RBC 3.13 L Hgb 7.8 L Hct 25.9 L MCV MCH MCHC 30.2 L RDW 18.9 H Plt Count MPV Absolute Nucleated RBC Immature Gran # Neutrophils # 8.8 H Neutrophils # (Manual) Monocytes # Monocytes # (Manual) Nucleated RBCs NRBC/100 WBC Diff Hemoglobin A1 Hemoglobin A2 Sodium 136 L Potassium Chloride 111 H Carbon Dioxide 21 L Anion Gap BUN BUN/Creatinine Ratio Glucose 105 H POC Glucose (mg/dL) 117 H Calcium 7.4 L Magnesium Iron TIBC Transferrin Ferritin Total Bilirubin ALT Alkaline Phosphatase 163 H C-Reactive Protein Total Protein 5.2 L Albumin 2.0 L Albumin/Globulin Ratio Lipase Vitamin B12 TSH Ur Leukocyte Esterase Urine WBC Urine Bacteria Urine Mucus Crossmatch 10/01/22 10/01/22 10/02/22 11:59 20:34 05:50 WBC 13.16 H RBC 2.63 L Hgb 6.6 L* Hct 21.0 L MCV 79.8 L MCH 25.1 L MCHC 31.4 L RDW 20.4 H Plt Count MPV Absolute Nucleated RBC 0.03 H Immature Gran # 0.20 H Neutrophils # 8.16 H Neutrophils # (Manual) Monocytes # 2.11 H Monocytes # (Manual) Nucleated RBCs NRBC/100 WBC Diff 0.2 H Hemoglobin A1 Hemoglobin A2 Sodium Potassium Chloride Carbon Dioxide Anion Gap BUN BUN/Creatinine Ratio Glucose POC Glucose (mg/dL) 111 H 111 H Calcium Magnesium Iron TIBC Transferrin Ferritin Total Bilirubin ALT Alkaline Phosphatase C-Reactive Protein Total Protein Albumin Albumin/Globulin Ratio Lipase Vitamin B12 TSH Ur Leukocyte Esterase Urine WBC Urine Bacteria Urine Mucus Crossmatch 10/02/22 10/02/22 10/02/22 05:50 06:40 07:00 WBC RBC Hgb Hct MCV MCH MCHC RDW Plt Count MPV Absolute Nucleated RBC Immature Gran # Neutrophils # Neutrophils # (Manual) Monocytes # Monocytes # (Manual) Nucleated RBCs NRBC/100 WBC Diff Hemoglobin A1 95.7 L Hemoglobin A2 4.3 H Sodium Potassium Chloride Carbon Dioxide 19.4 L Anion Gap 9.60 L BUN BUN/Creatinine Ratio 23.29 H Glucose POC Glucose (mg/dL) 129 H Calcium 7.9 L Magnesium Iron TIBC Transferrin Ferritin Total Bilirubin 0.20 L ALT 7 L Alkaline Phosphatase C-Reactive Protein Total Protein 4.9 L Albumin 2.0 L Albumin/Globulin Ratio 0.69 L Lipase Vitamin B12 TSH Ur Leukocyte Esterase Urine WBC Urine Bacteria Urine Mucus Crossmatch 10/02/22 10/02/22 10/02/22 11:16 12:32 13:20 WBC RBC Hgb Hct MCV MCH MCHC RDW Plt Count MPV Absolute Nucleated RBC Immature Gran # Neutrophils # Neutrophils # (Manual) Monocytes # Monocytes # (Manual) Nucleated RBCs NRBC/100 WBC Diff Hemoglobin A1 Hemoglobin A2 Sodium Potassium Chloride Carbon Dioxide Anion Gap BUN BUN/Creatinine Ratio Glucose POC Glucose (mg/dL) 114 H Calcium Magnesium Iron TIBC Transferrin Ferritin Total Bilirubin ALT Alkaline Phosphatase C-Reactive Protein 4.30 H Total Protein Albumin Albumin/Globulin Ratio Lipase Vitamin B12 TSH Ur Leukocyte Esterase Urine WBC Urine Bacteria Urine Mucus Crossmatch See Detail 10/03/22 10/03/22 10/03/22 06:48 06:48 11:00 WBC 12.3 H RBC 3.42 L Hgb 9.1 L Hct 28.1 L MCV MCH MCHC RDW 18.7 H Plt Count MPV Absolute Nucleated RBC Immature Gran # Neutrophils # Neutrophils # (Manual) 8.36 H Monocytes # Monocytes # (Manual) 1.11 H Nucleated RBCs 1 H NRBC/100 WBC Diff Hemoglobin A1 Hemoglobin A2 Sodium Potassium 5.9 H Chloride Carbon Dioxide Anion Gap 6.30 L BUN BUN/Creatinine Ratio 24.83 H Glucose POC Glucose (mg/dL) Calcium 8.1 L Magnesium Iron TIBC Transferrin Ferritin Total Bilirubin <0.15 L ALT Alkaline Phosphatase C-Reactive Protein Total Protein 5.4 L Albumin 2.2 L Albumin/Globulin Ratio 0.67 L Lipase Vitamin B12 TSH Ur Leukocyte Esterase Small H Urine WBC 11 H Urine Bacteria Rare H Urine Mucus Rare H Crossmatch 10/03/22 10/04/22 10/04/22 21:29 06:07 06:37 WBC 13.22 H RBC 3.06 L Hgb 8.0 L Hct 25.0 L MCV MCH 26.1 L MCHC RDW 20.4 H Plt Count MPV Absolute Nucleated RBC Immature Gran # 0.26 H Neutrophils # 8.27 H Neutrophils # (Manual) Monocytes # 1.85 H Monocytes # (Manual) Nucleated RBCs NRBC/100 WBC Diff Hemoglobin A1 Hemoglobin A2 Sodium Potassium Chloride Carbon Dioxide Anion Gap BUN BUN/Creatinine Ratio Glucose POC Glucose (mg/dL) 112 H 115 H Calcium Magnesium Iron TIBC Transferrin Ferritin Total Bilirubin ALT Alkaline Phosphatase C-Reactive Protein Total Protein Albumin Albumin/Globulin Ratio Lipase Vitamin B12 TSH Ur Leukocyte Esterase Urine WBC Urine Bacteria Urine Mucus Crossmatch 10/04/22 10/04/22 06:37 11:50 WBC RBC Hgb Hct MCV MCH MCHC RDW Plt Count MPV Absolute Nucleated RBC Immature Gran # Neutrophils # Neutrophils # (Manual) Monocytes # Monocytes # (Manual) Nucleated RBCs NRBC/100 WBC Diff Hemoglobin A1 Hemoglobin A2 Sodium Potassium 5.6 H Chloride Carbon Dioxide Anion Gap 5.50 L BUN BUN/Creatinine Ratio 26.87 H Glucose POC Glucose (mg/dL) 113 H Calcium 7.9 L Magnesium Iron TIBC Transferrin Ferritin Total Bilirubin ALT Alkaline Phosphatase C-Reactive Protein 11.10 H Total Protein Albumin Albumin/Globulin Ratio Lipase Vitamin B12 TSH Ur Leukocyte Esterase Urine WBC Urine Bacteria Urine Mucus Crossmatch - Diagnostic Findings Chest x-ray: report reviewed, image reviewed CT scan - chest: report reviewed, image reviewed Assessment and Plan Assessment: Right-sided aspiration pneumonia Bilateral small pleural effusion due to third spacing catabolic status and prote in calorie malnourishment History of intermittent seizures Failure to thrive Lower extremity wound Microcytic anemia Thalassemia trait History of CVA as well as advanced dementia Lower extremity wounds Plan: Aspiration precautions Agree with broad-spectrum antibiotics with Zosyn Continue anti-seizure medications with seizure precautions DVT and peptic ulcer disease prophylaxis Wound care of the lower extremity Gentle diuresis No plans for thoracentesis Time with Patient: Greater than 30
[2022-10-04] MEDS: LACTATED RINGERS 1,000 ML IV SCH (19:27)
[2022-10-04] MEDS: risperiDONE 1 MG TAB PO SCH (22:33)
[2022-10-05] MEDS: oxyCODONE-APAP 10-325MG 1 EACH TAB PO SCH ×6 (01:26→21:01)
[2022-10-05] MEDS: DEXTROSE 5%-0.45% NACL 1,000 ML IV SCH ×2 (05:12→21:00)
--- NOTE | 2022-10-05 09:37 | P.PN ---
Subjective Progress Note Date: 10/05/22 Principal diagnosis: Right-sided aspiration pneumonia Bilateral small pleural effusion due to third spacing catabolic status and protein calorie malnourishment History of intermittent seizures Failure to thrive Lower extremity wound Microcytic anemia Thalassemia trait History of CVA as well as advanced dementia Lower extremity wounds 10/05/2022, patient seen eval examined during rounds awake and alert breathing comfortably denies any chest pain currently on room air saturation is 98%, blood pressure is stable slightly tachycardic afebrile with temperature 98, blood cultures and urine culture so far no growth to previous blood culture was positive for staph epi likely contaminant she remains on D5 half-normal 75 mL an hour along with tube feed Jevity 50 mL an hour tolerating well remains on DVT and peptic ulcer disease prophylaxis along with continuation of home medications him a patient is being continued on Zosyn tolerating well Patient is a 62-year-old female with history of recurrent seizures, CVA, chronic contracture of the left extremity advised intervention was admitted from the emergency department with failure to thrive, wound care, and possible peg tube placement. Patient had episode of seizures approx 3-4 weeks ago and was initially placed on hospice, however, family stated she began to return to baseline and took her off of hospice. Patient follows with wound care Center due to multiple wounds on bilateral lower extremities and coccyx. Hemoglobin on 09/29 was 5.8, and 1 unit of PRBCs was given at that time. Hemoglobin 7.8 today. Iron studies not consistent with SILVER. Upon review of labs patient began to have anemia since 2013. No reported blood in stool or urine. Patient denies pain but is reporting wanting to go home and is tearful. No other reported complaints at this time. Recent chest x-ray on October 03 revealed bilateral patchy inflammatory processes and small effusion suggestive of aspiration pneumonia, patient have a PEG tube now being fed through the PEG tube computed tomography scan of the chest bilateral basal pneumonia predominantly on the right lung likely suggestive of aspiration pneumonia, bilateral pleural effusion small to moderate with third spacing patient is mostly nonverbal and noncommunicative but sometimes respond appropriately with simple response Objective - Vital Signs Vital signs: Vital Signs Temp 98.7 F 10/05/22 07:33 Pulse 113 H 10/05/22 07:33 Resp 18 10/05/22 07:33 BP 141/85 10/05/22 07:33 Pulse Ox 98 10/05/22 07:33 FiO2 Intake & Output 10/04/22 10/05/22 10/05/22 17:59 06:59 18:59 Output Total Balance Weight Output: Urine Other: Voiding Method - Exam - Constitutional General appearance: average body habitus, cooperative, disheveled - EENT Eyes: PERRLA ENT: hard of hearing Ears: bilateral: normal - Neck Neck: normal ROM Carotids: bilateral: upstroke normal Thyroid: bilateral: normal size - Respiratory Respiratory: bilateral: diminished, dullness - Cardiovascular Rhythm: regular Heart sounds: normal: S1, S2 - Integumentary Integumentary: decreased turgor - Musculoskeletal Musculoskeletal: strength equal bilaterally - Labs CBC & Chem 7: 10/04/22 06:37 10/04/22 06:37 Labs: Abnormal Lab Results - Last 24 Hours (Table) 10/04/22 10/04/22 10/04/22 Range/Units 06:37 06:37 11:50 WBC 13.22 H (4.50-10.00) X 10*3/uL RBC 3.06 L (4.10-5.20) X 10*6/uL Hgb 8.0 L (12.0-15.0) g/dL Hct 25.0 L (37.2-46.3) % MCH 26.1 L (27.0-32.0) pg RDW 20.4 H (11.5-14.5) % Immature Gran # 0.26 H (0.00-0.04) X 10*3/uL Neutrophils # 8.27 H (1.80-7.70) X 10*3/uL Monocytes # 1.85 H (0.20-1.00) X 10*3/uL Potassium 5.6 H (3.5-5.5) mmol/L Anion Gap 5.50 L (10.00-18.00) mmol/L BUN/Creatinine Ratio 26.87 H (12.00-20.00) Ratio POC Glucose (mg/dL) 113 H (70-110) mg/dL Calcium 7.9 L (8.7-10.3) mg/dL C-Reactive Protein 11.10 H (0.00-0.80) mg/dL Microbiology - Last 24 Hours (Table) 10/04/22 06:37 Blood Culture - Preliminary Blood No Growth after 24 hours Assessment and Plan Assessment: Right-sided aspiration pneumonia Bilateral small pleural effusion due to third spacing catabolic status and protein calorie malnourishment History of intermittent seizures Failure to thrive Lower extremity wound Microcytic anemia Thalassemia trait History of CVA as well as advanced dementia Lower extremity wounds Plan: Aspiration precautions Agree with broad-spectrum antibiotics with Zosyn to finish 5-7 day therapy Continue anti-seizure medications with seizure precautions DVT and peptic ulcer disease prophylaxis Wound care of the lower extremity Gentle diuresis No plans for thoracentesis We will sign off Time with Patient: Greater than 30
[2022-10-05] MEDS: PIPERACILLIN-TAZOBACTAM 3.375 GM in SODIUM CHLORIDE 0.9% 100 ML IVPB SCH ×2 (10:04→17:06)
[2022-10-05] MEDS: PANTOPRAZOLE 40 MG/10 ML VIAL IV SCH (10:24)
[2022-10-05] MEDS: METOPROLOL TARTRATE 50 MG TAB PO SCH ×2 (11:00→21:01)
[2022-10-05] MEDS: SODIUM BICARBONATE TAB 650 MG TAB PO SCH ×2 (11:00→21:01)
[2022-10-05] MEDS: DIVALPROEX SPRINKLE 125 MG CAP.SPRINK PEG/G-TUBE SCH ×2 (11:00→21:01)
[2022-10-05] MEDS: LACOSAMIDE 50 MG TABLET PO SCH ×2 (11:00→21:01)
[2022-10-05] MEDS: SERTRALINE 100 MG TAB PO SCH (11:00)
[2022-10-05] MEDS: SERTRALINE 25 MG TAB PO SCH (11:01)
[2022-10-05] MEDS: ENOXAPARIN 40 MG/0.4 ML SYRINGE SQ SCH (11:19)
[2022-10-05 11:53] LABS: Glucose,Whole Blood 108 mg/dL (70-110)
--- NOTE | 2022-10-05 15:31 | P.PN ---
Subjective Progress Note Date: 10/05/22 Principal diagnosis: Bilateral lower extremity and sacral wound Patient is a 62-year-old -[place] female with multiple comorbidities including stroke chronic pain in this patient who is a bedbound and did have multiple contracture patient has been brought into the hospital for decreased appetite and possible placement for PEG tube , patient also had bilateral lower extremity and sacral wound prompting this consultation, patient did have a PEG tube placement on 09/25/2022 On today's evaluation that is 10/05/2022, the patient remains to be afebrile, the patient is breathing comfortably on room air, patient denies any chest pain shortness of breath , the patient did have a cough but dry in nature and has decreased in intensity, patient has been tolerating her tube feeds no vomiting or diarrhea reported by the nursing staff Objective - Vital Signs Vital signs: Vital Signs Temp 98.7 F 10/05/22 07:33 Pulse 113 H 10/05/22 07:33 Resp 18 10/05/22 07:33 BP 141/85 10/05/22 07:33 Pulse Ox 98 10/05/22 07:33 FiO2 Intake & Output 10/04/22 10/05/22 10/05/22 17:59 06:59 18:59 Output Total Balance Weight Output: Urine Other: Voiding Method Diaper Incontinent External Catheter - Exam GENERAL DESCRIPTION: Middle-aged female lying in bed in no distress RESPIRATORY SYSTEM: Unlabored breathing , decreased breath sounds at bases HEART: S1 S2 regular rate and rhythm , ABDOMEN: Soft , no tenderness EXTREMITIES: Right lateral leg wound is currently drying out no redness or drainage - Labs CBC & Chem 7: 10/04/22 06:37 10/04/22 06:37 Labs: Microbiology - Last 24 Hours (Table) 10/04/22 06:37 Blood Culture - Preliminary Blood No Growth after 24 hours Assessment and Plan (1) Leukocytosis Current Visit: Yes Status: Acute Code(s): D72.829 - ELEVATED WHITE BLOOD CELL COUNT, UNSPECIFIED SNOMED Code(s): 049832427 (2) Decubitus skin ulcer Current Visit: Yes Status: Acute Code(s): L89.90 - PRESSURE ULCER OF UNSPECIFIED SITE, UNSPECIFIED STAGE SNOMED Code(s): 9315277808 Plan: 1patient with a multiple wounds to the bilateral lower extremity mostly pressure ulcers however they are currently covered with a dry scabs with no significant surrounding swelling redness recommend local wound care by keeping them dry and of the pressure no need for Medihoney, wound to the right lateral leg will apply dry Aquacel silver dressing change every 48 hours and keep the area of the pressure. 2patient with a stage II sacral pressure ulcer but no cellulitis local wound care with keeping the area of pressure as the family refuses Aquacel silver dressing 3-patient positive blood culture with staph epi likely skin contamination and patient be monitored closely off of vancomycin 4patient with a fever and left-sided pneumonia questionably aspiration etiology patient to continue with Zosyn and aspiration precautions Time with Patient: Less than 30
[2022-10-05 17:06] LABS: Glucose,Whole Blood 107 mg/dL (70-110)
[2022-10-05] MEDS: LACTATED RINGERS 1,000 ML IV SCH (19:34)
[2022-10-05] MEDS ORDERED: FUROSEMIDE 10 MG/ML 2 ML VIAL IV STA (19:51)
[2022-10-05 20:05] LABS: Glucose,Whole Blood 112 mg/dL (70-110)
[2022-10-05] MEDS: risperiDONE 1 MG TAB PO SCH (21:01)
[2022-10-05] MEDS: SCOPOLAMINE 1 MG/72 HR PATCH TRANSDERM SCH (21:18)
--- NOTE | 2022-10-05 21:34 | PN ---
PROGRESS NOTE DATE OF SERVICE: 10/04/2022 SUBJECTIVE: A 62-year-old white female. Son is worried about her diffuse extremity swelling as well as an open wound on the distal part of her leg, for which we are going to put some Aquacel Silver on. Wait for Infectious Disease to get her going. She has been n.p.o. We are going to give her increased possibly a dose of Lasix today, sent Depakote for seizures. She does have generalized edema on her extremities. OBJECTIVE: CARDIOVASCULAR: S1, S2. LUNGS: Transmitted upper sounds. VITAL SIGNS: Oxygen saturation 97% on room air, blood pressure 140s over 80s. Pulse is like 90 to 100, temp 98.6. ASSESSMENT: Multiple wound infections, severe protein-calorie malnutrition. Infectious Disease, Pulmonary has seen the patient recently. She is going to get tube feeds at home. She has leukocytosis, decubitus skin ulcers, aspiration pneumonia, had been using Medihoney in the right lateral leg, Aquacel Silver. Continue current treatment for stage II pressure ulcers. Family is refusing Aquacel Silver dressing. Positive blood culture, skin contamination. Monitoring off vancomycin, left-sided pneumonia, possibly aspiration. Continue with Zosyn. Continue tube feedings. Prognosis guarded. MMODL / IJN: [id number] /
[2022-10-06] MEDS: PIPERACILLIN-TAZOBACTAM 3.375 GM in SODIUM CHLORIDE 0.9% 100 ML IVPB SCH ×2 (00:09→08:25)
[2022-10-06] MEDS: oxyCODONE-APAP 10-325MG 1 EACH TAB PO SCH ×6 (00:09→20:41)
[2022-10-06 05:59] LABS: Glucose,Whole Blood 102 mg/dL (70-110)
[2022-10-06 06:09] LABS: Methylmalonic Acid 0.26 umol/L (<0.40)
[2022-10-06] MEDS: SODIUM BICARBONATE TAB 650 MG TAB PO SCH ×2 (08:24→20:44)
[2022-10-06] MEDS: LACOSAMIDE 50 MG TABLET PO SCH ×2 (08:24→20:42)
[2022-10-06] MEDS: METOPROLOL TARTRATE 50 MG TAB PO SCH ×2 (08:24→20:42)
[2022-10-06] MEDS: SERTRALINE 100 MG TAB PO SCH ×2 (08:24→08:26)
[2022-10-06] MEDS: ENOXAPARIN 40 MG/0.4 ML SYRINGE SQ SCH (08:25)
[2022-10-06] MEDS: DIVALPROEX SPRINKLE 125 MG CAP.SPRINK PEG/G-TUBE SCH ×2 (08:25→20:43)
[2022-10-06] MEDS: PANTOPRAZOLE 40 MG/10 ML VIAL IV SCH (08:25)
[2022-10-06] MEDS: SERTRALINE 25 MG TAB PO SCH (08:37)
[2022-10-06] MEDS: DEXTROSE 5%-0.45% NACL 1,000 ML IV SCH ×2 (10:12→22:42)
--- NOTE | 2022-10-06 11:21 | P.PN ---
Subjective Progress Note Date: 10/06/22 CHIEF COMPLAINT: Failure to thrive HISTORY OF PRESENT ILLNESS: Patient is status post PEG tube placement on 09/26/2022. Patient is tolerating tube feeds. Tube feeds are at goal of 50 mL per hour. She reports having bowel movements. She denies any pain. Denies any nausea or vomiting. Afebrile. WBC 13. Concerns for possible aspiration pneumonia. Followed by infectious disease and pulmonary service PHYSICAL EXAM: VITAL SIGNS: Reviewed. GENERAL:no acute distress. ABDOMEN: Soft. Nondistended. PEG tube site clean dry and intact. Nontender NEUROLOGIC: Awake and alert ASSESSMENT: 1. Failure to thrive status post PEG tube placement 2. Moderate protein calorie malnutrition 3. History of CVA PLAN: -Continue tube feedings -Continue supportive care Physician Glass Sander Belt note has been reviewed by physician. Signing provider agrees with the documented findings, assessment, and plan of care. Objective - Vital Signs Vital signs: Vital Signs Temp 98.4 F 10/06/22 07:58 Pulse 103 H 10/06/22 07:58 Resp 18 10/06/22 07:58 BP 155/91 10/06/22 07:58 Pulse Ox 99 10/06/22 07:58 FiO2 Intake & Output 10/05/22 10/06/22 10/06/22 18:59 06:59 18:59 Output Total 1200 Balance -1200 Output: Urine 1200 Other: Voiding Method Diaper Diaper Diaper Incontinent Incontinent Incontinent External Catheter External Catheter External Catheter # Voids 1 # Bowel Movements 1 3 - Labs CBC & Chem 7: 10/04/22 06:37 10/04/22 06:37 Labs: Abnormal Lab Results - Last 24 Hours (Table) 10/05/22 Range/Units 20:04 POC Glucose (mg/dL) 112 H (70-110) mg/dL Microbiology - Last 24 Hours (Table) 10/03/22 11:00 Urine Culture - Final Urine,Voided 10/04/22 06:37 Blood Culture - Preliminary Blood No Growth after 48 hours
[2022-10-06 11:33] LABS: Glucose,Whole Blood 114 mg/dL (70-110)
--- NOTE | 2022-10-06 11:34 | P.PN ---
Subjective Progress Note Date: 10/06/22 Principal diagnosis: anemia Upon visit today patient is resting comfortably in bed. Patient reports feeling well. No reported episodes of bleeding. Denies abdominal pain, nausea, vomiting, diarrhea, fevers and chills. No other reported complaints at this time Objective - Vital Signs Vital signs: Vital Signs Temp 98.4 F 10/06/22 07:58 Pulse 103 H 10/06/22 07:58 Resp 18 10/06/22 07:58 BP 155/91 10/06/22 07:58 Pulse Ox 99 10/06/22 07:58 FiO2 Intake & Output 10/05/22 10/06/22 10/06/22 18:59 06:59 18:59 Output Total 1200 Balance -1200 Output: Urine 1200 Other: Voiding Method Diaper Diaper Diaper Incontinent Incontinent Incontinent External Catheter External Catheter External Catheter # Voids 1 # Bowel Movements 1 3 - Constitutional General appearance: Present: average body habitus, no acute distress - EENT Eyes: Present: anicteric sclerae, EOMI ENT: Present: hearing grossly normal - Respiratory Respiratory: bilateral: CTA - Cardiovascular Rhythm: regular Heart sounds: normal: S1, S2 Abnormal Heart Sounds: Absent: systolic murmur, diastolic murmur, rub, S3 Gallop, S4 Gallop, click, other - Gastrointestinal General gastrointestinal: Present: soft. Absent: tenderness - Integumentary Integumentary: Present: pale - Psychiatric Psychiatric: Present: appropriate affect, intact judgment & insight - Labs CBC & Chem 7: 10/04/22 06:37 10/04/22 06:37 Labs: Abnormal Lab Results - Last 24 Hours (Table) 10/05/22 Range/Units 20:04 POC Glucose (mg/dL) 112 H (70-110) mg/dL Microbiology - Last 24 Hours (Table) 10/03/22 11:00 Urine Culture - Final Urine,Voided 10/04/22 06:37 Blood Culture - Preliminary Blood No Growth after 48 hours Assessment and Plan (1) Anemia Current Visit: No Status: Acute Priority: High Code(s): D64.9 - ANEMIA, UNSPECIFIED SNOMED Code(s): 080296600 Plan: Anemia: -Hx of anemia, noted since 2013 -Patient was hospitalized in 04/2022 and noticed to have microcytic anemia with elevated ferritin of 2224. Prior work-up for anemia on 07/28/2021 revealed no evidence of monoclonal gammopathy on immunofixation, no monoclonal population of immunoglobulins. Vitamin B12 and folic acid were also found to be normal at that time. At the time of our initial consultation on 05/15/2022, hemoglobin electrophoresis was recommended and was found to have an elevated hemoglobin A2 of 4.2%, which was noted to be consistent with beta thalassemia. She did receive 1 unit of packed red blood cells on 05/15/2022. Of note, it is not cl ear if patient recently received blood transfusion prior to hemoglobin electrophoresis. Patient was seen in clinic in follow up and sent for further lab testing on 06/30/22, including anemia workup, with EPO level, hemoglobin electrophoresis and beta thalassemia gene testing to assess for the presence of beta thalassemia. Iron, TIBC, and iron saturation were WNL, ferritin elevated at 1914, EPO 37.24, Vit B12 and folate WNL. However, copper, hemoglobin electrophoresis, and beta thalassemia gene testing were never obtained. -Hemoglobin on 09/29 was 5.8, and 1 unit of PRBCs was given at that time. She received additional unit of PRBCs on 10/02. Hemoglobin 8.0 on 10/04, CBC today pending. Please transfuse for hemoglobin less than 7 or if symptomatic. Will continue to monitor CBC -Iron studies not consistent with SILVER. Folate and Vitamin B12 normal. MMA 0.26. Copper pending. -Hemoglobin A2 again found to be elevated, consistent with beta thalassemia minor -Anemia is likely r/t anemia of inflammation superimposed by Beta thalassemia
--- NOTE | 2022-10-06 12:15 | P.PN ---
Subjective Progress Note Date: 10/06/22 Principal diagnosis: Bilateral lower extremity and sacral wound Patient is a 62-year-old -[place] female with multiple comorbidities including stroke chronic pain in this patient who is a bedbound and did have multiple contracture patient has been brought into the hospital for decreased appetite and possible placement for PEG tube , patient also had bilateral lower extremity and sacral wound prompting this consultation, patient did have a PEG tube placement on 09/25/2022 On today's evaluation that is 10/06/2022, the patient continues to be afebrile, the patient is breathing comfortably on room air, patient denies any chest pain shortness of breath , the patient did have a cough but no sputum production, patient has been tolerating her tube feeds no vomiting or diarrhea reported by the nursing staff, patient has lost the IV site and is refusing for placement of another IV Objective - Vital Signs Vital signs: Vital Signs Temp 98.4 F 10/06/22 07:58 Pulse 103 H 10/06/22 07:58 Resp 18 10/06/22 07:58 BP 155/91 10/06/22 07:58 Pulse Ox 99 10/06/22 07:58 FiO2 Intake & Output 10/05/22 10/06/22 10/06/22 18:59 06:59 18:59 Output Total 1200 Balance -1200 Output: Urine 1200 Other: Voiding Method Diaper Diaper Diaper Incontinent Incontinent Incontinent External Catheter External Catheter External Catheter # Voids 1 # Bowel Movements 1 3 - Exam GENERAL DESCRIPTION: Middle-aged female lying in bed in no distress RESPIRATORY SYSTEM: Unlabored breathing , decreased breath sounds at bases HEART: S1 S2 regular rate and rhythm , ABDOMEN: Soft , no tenderness EXTREMITIES: Right lateral leg wound is currently drying out no redness or drainage - Labs CBC & Chem 7: 10/04/22 06:37 10/04/22 06:37 Labs: Abnormal Lab Results - Last 24 Hours (Table) 10/05/22 Range/Units 20:04 POC Glucose (mg/dL) 112 H (70-110) mg/dL Microbiology - Last 24 Hours (Table) 10/03/22 11:00 Urine Culture - Final Urine,Voided 10/04/22 06:37 Blood Culture - Preliminary Blood No Growth after 48 hours Assessment and Plan (1) Leukocytosis Current Visit: Yes Status: Acute Code(s): D72.829 - ELEVATED WHITE BLOOD CELL COUNT, UNSPECIFIED SNOMED Code(s): 126420851 (2) Decubitus skin ulcer Current Visit: Yes Status: Acute Code(s): L89.90 - PRESSURE ULCER OF UNSPECIFIED SITE, UNSPECIFIED STAGE SNOMED Code(s): 1451758047 Plan: 1patient with a multiple wounds to the bilateral lower extremity mostly pressure ulcers however they are currently covered with a dry scabs with no significant surrounding swelling redness recommend local wound care by keeping them dry and of the pressure no need for Medihoney, wound to the right lateral leg will apply dry Aquacel silver dressing change every 48 hours and keep the area of the pressure. 2patient with a stage II sacral pressure ulcer but no cellulitis local wound care with keeping the area of pressure as the family refuses Aquacel silver dressing 3-patient positive blood culture with staph epi likely skin contamination and patient be monitored closely off of vancomycin 4patient with a fever and left-sided pneumonia questionably aspiration etiology patient did responded to Zosyn unfortunately she has lost her IV and is refusing to place another IV we will switch her to Augmentin and see clinical response Time with Patient: Less than 30
[2022-10-06 13:17] LABS: Anisocytosis Slight; Basophils % (A) 0 %; Eosinophils # (A) 0.2 k/uL (0-0.7); Eosinophils % (A) 2 %; HCT 29.6 % (34.0-46.0); HGB 8.9 gm/dL (11.4-16.0); Hypochromasia Moderate; Lymphocytes % (A) 18 %; MCH 25.7 pg (25.0-35.0); MCHC 30.2 g/dL (31.0-37.0); MCV 85.2 fL (80.0-100.0); Mean Platelet Volume 8.5; Monocytes # (A) 0.9 k/uL (0-1.0); Monocytes % (A) 8 %; Neutrophils # (A) 7.7 k/uL (1.3-7.7); Neutrophils % (A) 69 %; Platelet Count 314 k/uL (150-450); RBC 3.47 m/uL (3.80-5.40); RDW 18.1 % (11.5-15.5); WBC 11.1 k/uL (3.8-10.6)
[2022-10-06 16:37] LABS: Glucose,Whole Blood 97 mg/dL (70-110)
[2022-10-06] MEDS: LACTATED RINGERS 1,000 ML IV SCH (17:03)
[2022-10-06] MEDS: AMOXIC-POT CLAV 875-125MG 1 EACH TAB PEG/G-TUBE SCH ×2 (17:03→20:43)
[2022-10-06] MEDS: risperiDONE 1 MG TAB PO SCH (20:42)
[2022-10-06 20:49] LABS: Glucose,Whole Blood 96 mg/dL (70-110)
--- NOTE | 2022-10-06 21:18 | PN ---
PROGRESS NOTE SUBJECTIVE: She wants to go home. She wants to switch to oral Augmentin, get off IV antibiotics, and go home. Wound care per Dr. Tristan's recommendations to be done. Tube feedings per Dietary to discuss with her. She will be discharged home tomorrow. She is currently wide awake, giving appropriate answers. OBJECTIVE: CARDIOVASCULAR: S1 and S2. LUNGS: Clear. GI: Soft. HEMATOLOGY: Negative Homans. PSYCHIATRIC: Fair mood and affect. VITAL SIGNS: Pulses low 100s, temperature 98.4, blood pressures 140s to 150s over 80 to 90, respiratory rate 16 to 18, O2 of 98% to 99% on room air. ASSESSMENT AND PLAN: Plan is to go home tomorrow. Seizure disorder, chronic leg wounds, severe protein- calorie malnutrition, failed swallow evaluation, chronic obstructive pulmonary disease, congestive heart failure, aspiration pneumonia. Prognosis is guarded. Go home tomorrow. Please see further orders. MMODL / IJN: [id number] /
[2022-10-06 22:24] LABS: ALT 11 U/L (8-44); AST 26 U/L (13-35); African American GFR (CKD) 75.1 (60.0-200.0); Albumin 2.1 g/dL (3.8-4.9); Albumin/Globulin Ratio 0.63 (1.60-3.17); Alkaline Phosphatase 130 U/L (41-126); Blood Urea Nitrogen 24.7 mg/dL (9.0-27.0); Calcium 8.3 mg/dL (8.7-10.3); Carbon Dioxide 20.6 mmol/L (20.0-27.5); Chloride 108 mmol/L (96-109); Globulin 3.4 g/dL (1.6-3.3); Glucose 112 mg/dL (70-110); Non-African American GFR(CKD) 64.8 (60.0-200.0); Potassium 5.8 mmol/L (3.5-5.5); Sodium 138 mmol/L (135-145); Total Bilirubin <0.15 mg/dL (0.30-1.20); Total Protein 5.5 g/dL (6.2-8.2)
[2022-10-07] MEDS: oxyCODONE-APAP 10-325MG 1 EACH TAB PO SCH ×4 (00:15→12:31)
[2022-10-07 05:35] LABS: Anisocytosis Slight; Basophils % (A) 0 %; Eosinophils # (A) 0.2 k/uL (0-0.7); Eosinophils % (A) 2 %; HCT 31.1 % (34.0-46.0); HGB 9.5 gm/dL (11.4-16.0); Hypochromasia Moderate; Lymphocytes # (A) 2.1 k/uL (1.0-4.8); Lymphocytes % (A) 23 %; MCH 26.3 pg (25.0-35.0); MCHC 30.7 g/dL (31.0-37.0); MCV 85.7 fL (80.0-100.0); Mean Platelet Volume 8.3; Monocytes # (A) 0.9 k/uL (0-1.0); Monocytes % (A) 9 %; Neutrophils # (A) 5.8 k/uL (1.3-7.7); Neutrophils % (A) 63 %; Platelet Count 386 k/uL (150-450); RBC 3.63 m/uL (3.80-5.40); RDW 17.8 % (11.5-15.5); WBC 9.2 k/uL (3.8-10.6)
[2022-10-07 06:15] LABS: Glucose,Whole Blood 109 mg/dL (70-110)
[2022-10-07] MEDS ORDERED: PANTOPRAZOLE 40 MG TABLET PO SCH (07:30)
[2022-10-07] MEDS: AMOXIC-POT CLAV 875-125MG 1 EACH TAB PEG/G-TUBE SCH (09:26)
[2022-10-07] MEDS: DIVALPROEX SPRINKLE 125 MG CAP.SPRINK PEG/G-TUBE SCH (09:26)
[2022-10-07] MEDS: LACOSAMIDE 50 MG TABLET PO SCH (09:27)
[2022-10-07] MEDS: METOPROLOL TARTRATE 50 MG TAB PO SCH (09:27)
[2022-10-07] MEDS: SODIUM BICARBONATE TAB 650 MG TAB PO SCH (09:28)
[2022-10-07] MEDS: ENOXAPARIN 40 MG/0.4 ML SYRINGE SQ SCH (09:28)
[2022-10-07] MEDS: SERTRALINE 25 MG TAB PO SCH (09:28)
--- NOTE | 2022-10-07 11:12 | P.PN ---
Subjective Progress Note Date: 10/07/22 Principal diagnosis: anemia Upon visit today patient is resting comfortably in bed. Patient reports feeling well and rested. No reported episodes of bleeding. Denies abdominal pain, nausea, vomiting, diarrhea, fevers and chills. No other reported complaints at this time Objective - Vital Signs Vital signs: Vital Signs Temp 98.5 F 10/07/22 07:26 Pulse 91 10/07/22 07:26 Resp 16 10/07/22 08:00 BP 137/88 10/07/22 07:26 Pulse Ox 100 10/07/22 07:26 FiO2 Intake & Output 10/06/22 10/07/22 10/07/22 18:59 06:59 18:59 Intake Total 2586 Output Total 350 Balance 2586 -350 Weight 81 kg Intake: Tube Feeding 2586 Output: Urine 350 Other: Voiding Method Diaper Diaper Diaper Incontinent Incontinent Incontinent External Catheter External Catheter External Catheter # Voids 1 1 # Bowel Movements 1 1 - Constitutional General appearance: Present: average body habitus, no acute distress - EENT Eyes: Present: anicteric sclerae, EOMI ENT: Present: hearing grossly normal - Respiratory Respiratory: bilateral: CTA - Cardiovascular Rhythm: regular Heart sounds: normal: S1, S2 Abnormal Heart Sounds: Absent: systolic murmur, diastolic murmur, rub, S3 Gallop, S4 Gallop, click, other - Integumentary Integumentary: Absent: cyanotic, pale, rash - Musculoskeletal Musculoskeletal Comment(s): LUE contracted - Psychiatric Psychiatric: Present: appropriate affect, intact judgment & insight - Labs CBC & Chem 7: 10/07/22 05:30 10/06/22 12:32 Labs: Abnormal Lab Results - Last 24 Hours (Table) 10/06/22 10/06/22 10/06/22 Range/Units 11:24 12:32 12:32 WBC 11.1 H (3.8-10.6) k/uL RBC 3.47 L (3.80-5.40) m/uL Hgb 8.9 L (11.4-16.0) gm/dL Hct 29.6 L (34.0-46.0) % MCHC 30.2 L (31.0-37.0) g/dL RDW 18.1 H (11.5-15.5) % Potassium 5.8 H (3.5-5.5) mmol/L Anion Gap 9.60 L (10.00-18.00) mmol/L BUN/Creatinine Ratio 26.50 H (12.00-20.00) Ratio Glucose 112 H (70-110) mg/dL POC Glucose (mg/dL) 114 H (70-110) mg/dL Calcium 8.3 L (8.7-10.3) mg/dL Total Bilirubin <0.15 L (0.30-1.20) mg/dL Alkaline Phosphatase 130 H (41-126) U/L Total Protein 5.5 L (6.2-8.2) g/dL Albumin 2.1 L (3.8-4.9) g/dL Globulin 3.4 H (1.6-3.3) g/dL Albumin/Globulin Ratio 0.63 L (1.60-3.17) g/dL 10/07/22 Range/Units 05:30 WBC (3.8-10.6) k/uL RBC 3.63 L (3.80-5.40) m/uL Hgb 9.5 L (11.4-16.0) gm/dL Hct 31.1 L (34.0-46.0) % MCHC 30.7 L (31.0-37.0) g/dL RDW 17.8 H (11.5-15.5) % Potassium (3.5-5.5) mmol/L Anion Gap (10.00-18.00) mmol/L BUN/Creatinine Ratio (12.00-20.00) Ratio Glucose (70-110) mg/dL POC Glucose (mg/dL) (70-110) mg/dL Calcium (8.7-10.3) mg/dL Total Bilirubin (0.30-1.20) mg/dL Alkaline Phosphatase (41-126) U/L Total Protein (6.2-8.2) g/dL Albumin (3.8-4.9) g/dL Globulin (1.6-3.3) g/dL Albumin/Globulin Ratio (1.60-3.17) g/dL Microbiology - Last 24 Hours (Table) 10/04/22 06:37 Blood Culture - Preliminary Blood No Growth after 72 hours 10/02/22 12:32 Blood Culture Gram Stain - Final Blood Blood Culture - Final Staphylococcus epidermidis 10/03/22 11:00 Urine Culture - Final Urine,Voided Assessment and Plan (1) Anemia Current Visit: No Status: Acute Priority: High Code(s): D64.9 - ANEMIA, UNSPECIFIED SNOMED Code(s): 502987680 (2) Beta thalassemia minor Current Visit: Yes Status: Acute Priority: High Code(s): D56.3 - THALASSEMIA MINOR SNOMED Code(s): 345872107 Plan: Anemia/Beta Thalassemia: -Hx of anemia, noted since 2013 -Patient was hospitalized in 04/2022 and noticed to have microcytic anemia with elevated ferritin of 2224. Prior work-up for anemia on 07/28/2021 revealed no evidence of monoclonal gammopathy on immunofixation, no monoclonal population of immunoglobulins. Vitamin B12 and folic acid were also found to be normal at that time. At the time of our initial consultation on 05/15/2022, hemoglobin electrophoresis was recommended and was found to have an elevated hemoglobin A2 of 4.2%, which was noted to be consistent with beta thalassemia. She did receive 1 unit of packed red blood cells on 05/15/2022. Of note, it is not clear if patient recently received blood transfusion prior to hemoglobin electrophoresis. Patient was seen in clinic in follow up and sent for further lab testing on 06/30/22, including anemia workup, with EPO level, hemoglobin electrophoresis and beta thalassemia gene testing to assess for the presence of beta thalassemia. Iron, TIBC, and iron saturation were WNL, ferritin elevated at 1914, EPO 37.24, Vit B12 and folate WNL. However, copper, hemoglobin electrophoresis, and beta thalassemia gene testing were never obtained. -Hemoglobin on 09/29 was 5.8, and 1 unit of PRBCs was given at that time. She received additional unit of PRBCs on 10/02. Hemoglobin 9.5. Hemoglobin gradually improving daily. -Please transfuse for hemoglobin less than 7 or if symptomatic. Will continue to monitor CBC -Iron studies not consistent with SILVER. Folate and Vitamin B12 normal. MMA 0.26. Copper pending. -Hemoglobin A2 again found to be elevated, consistent with beta thalassemia minor -Anemia is likely r/t anemia of inflammation superimposed by Beta thalassemia -Will plan for outpatient f/u for routine CBC monitoring
[2022-10-07 11:29] LABS: Glucose,Whole Blood 104 mg/dL (70-110)
--- NOTE | 2022-10-07 11:46 | P.PN ---
Subjective Progress Note Date: 10/07/22 CHIEF COMPLAINT: Failure to thrive HISTORY OF PRESENT ILLNESS: Patient is status post PEG tube placement on 09/26/2022. Patient is tolerating tube feeds. Tube feeds are at goal of 50 mL per hour. She reports having bowel movements. She denies any pain. Denies any nausea or vomiting. Afebrile. WBC down to 9.2. Concerns for possible aspiration pneumonia. Followed by infectious disease and pulmonary service. She is scheduled for discharge today PHYSICAL EXAM: VITAL SIGNS: Reviewed. GENERAL:no acute distress. ABDOMEN: Soft. Nondistended. PEG tube site clean dry and intact. Nontender NEUROLOGIC: Awake and alert ASSESSMENT: 1. Failure to thrive status post PEG tube placement 2. Moderate protein calorie malnutrition 3. History of CVA PLAN: -Continue tube feedings -Continue supportive care Physician Frame Stripper note has been reviewed by physician. Signing provider agrees with the documented findings, assessment, and plan of care. Objective - Vital Signs Vital signs: Vital Signs Temp 98.5 F 10/07/22 07:26 Pulse 91 10/07/22 07:26 Resp 16 10/07/22 08:00 BP 137/88 10/07/22 07:26 Pulse Ox 100 10/07/22 07:26 FiO2 Intake & Output 10/06/22 10/07/22 10/07/22 18:59 06:59 18:59 Intake Total 2586 Output Total 350 Balance 2586 -350 Weight 81 kg Intake: Tube Feeding 2586 Output: Urine 350 Other: Voiding Method Diaper Diaper Diaper Incontinent Incontinent Incontinent External Catheter External Catheter External Catheter # Voids 1 1 # Bowel Movements 1 1 - Labs CBC & Chem 7: 10/07/22 05:30 10/06/22 12:32 Labs: Abnormal Lab Results - Last 24 Hours (Table) 10/06/22 10/06/22 10/07/22 Range/Units 12:32 12:32 05:30 WBC 11.1 H (3.8-10.6) k/uL RBC 3.47 L 3.63 L (3.80-5.40) m/uL Hgb 8.9 L 9.5 L (11.4-16.0) gm/dL Hct 29.6 L 31.1 L (34.0-46.0) % MCHC 30.2 L 30.7 L (31.0-37.0) g/dL RDW 18.1 H 17.8 H (11.5-15.5) % Potassium 5.8 H (3.5-5.5) mmol/L Anion Gap 9.60 L (10.00-18.00) mmol/L BUN/Creatinine Ratio 26.50 H (12.00-20.00) Ratio Glucose 112 H (70-110) mg/dL Calcium 8.3 L (8.7-10.3) mg/dL Total Bilirubin <0.15 L (0.30-1.20) mg/dL Alkaline Phosphatase 130 H (41-126) U/L Total Protein 5.5 L (6.2-8.2) g/dL Albumin 2.1 L (3.8-4.9) g/dL Globulin 3.4 H (1.6-3.3) g/dL Albumin/Globulin Ratio 0.63 L (1.60-3.17) g/dL Microbiology - Last 24 Hours (Table) 10/04/22 06:37 Blood Culture - Preliminary Blood No Growth after 72 hours 10/02/22 12:32 Blood Culture Gram Stain - Final Blood Blood Culture - Final Staphylococcus epidermidis 10/03/22 11:00 Urine Culture - Final Urine,Voided
--- NOTE | 2022-10-07 12:39 | P.PN ---
Subjective Progress Note Date: 10/07/22 Principal diagnosis: Bilateral lower extremity and sacral wound Patient is a 62-year-old -Beninese female with multiple comorbidities including stroke chronic pain in this patient who is a bedbound and did have multiple contracture patient has been brought into the hospital for decreased appetite and possible placement for PEG tube , patient also had bilateral lower extremity and sacral wound prompting this consultation, patient did have a PEG tube placement on 09/25/2022 On today's evaluation that is 10/07/2022, the patient remains to be afebrile, the patient is breathing comfortably on room air, patient denies any chest pain shortness of breath , the patient did have a cough has decreased in intensity and not bring up any sputum, patient has been tolerating her tube feeds no vomiting or diarrhea reported by the nursing staff, Objective - Vital Signs Vital signs: Vital Signs Temp 98.5 F 10/07/22 07:26 Pulse 91 10/07/22 07:26 Resp 16 10/07/22 08:00 BP 137/88 10/07/22 07:26 Pulse Ox 100 10/07/22 07:26 FiO2 Intake & Output 10/06/22 10/07/22 10/07/22 18:59 06:59 18:59 Intake Total 2586 Output Total 350 Balance 2586 -350 Weight 81 kg Intake: Tube Feeding 2586 Output: Urine 350 Other: Voiding Method Diaper Diaper Diaper Incontinent Incontinent Incontinent External Catheter External Catheter External Catheter # Voids 1 1 # Bowel Movements 1 1 - Exam GENERAL DESCRIPTION: Middle-aged female lying in bed in no distress RESPIRATORY SYSTEM: Unlabored breathing , decreased breath sounds at bases HEART: S1 S2 regular rate and rhythm , ABDOMEN: Soft , no tenderness EXTREMITIES: Right lateral leg wound is currently drying out no redness or drainage - Labs CBC & Chem 7: 10/07/22 05:30 10/06/22 12:32 Labs: Abnormal Lab Results - Last 24 Hours (Table) 10/06/22 10/06/22 10/07/22 Range/Units 12:32 12:32 05:30 WBC 11.1 H (3.8-10.6) k/uL RBC 3.47 L 3.63 L (3.80-5.40) m/uL Hgb 8.9 L 9.5 L (11.4-16.0) gm/dL Hct 29.6 L 31.1 L (34.0-46.0) % MCHC 30.2 L 30.7 L (31.0-37.0) g/dL RDW 18.1 H 17.8 H (11.5-15.5) % Potassium 5.8 H (3.5-5.5) mmol/L Anion Gap 9.60 L (10.00-18.00) mmol/L BUN/Creatinine Ratio 26.50 H (12.00-20.00) Ratio Glucose 112 H (70-110) mg/dL Calcium 8.3 L (8.7-10.3) mg/dL Total Bilirubin <0.15 L (0.30-1.20) mg/dL Alkaline Phosphatase 130 H (41-126) U/L Total Protein 5.5 L (6.2-8.2) g/dL Albumin 2.1 L (3.8-4.9) g/dL Globulin 3.4 H (1.6-3.3) g/dL Albumin/Globulin Ratio 0.63 L (1.60-3.17) g/dL Microbiology - Last 24 Hours (Table) 10/04/22 06:37 Blood Culture - Preliminary Blood No Growth after 72 hours 10/02/22 12:32 Blood Culture Gram Stain - Final Blood Blood Culture - Final Staphylococcus epidermidis 10/03/22 11:00 Urine Culture - Final Urine,Voided Assessment and Plan (1) Leukocytosis Current Visit: Yes Status: Acute Code(s): D72.829 - ELEVATED WHITE BLOOD CELL COUNT, UNSPECIFIED SNOMED Code(s): 026191676 (2) Decubitus skin ulcer Current Visit: Yes Status: Acute Code(s): L89.90 - PRESSURE ULCER OF UNSPECIFIED SITE, UNSPECIFIED STAGE SNOMED Code(s): 0710089274 Plan: 1patient with a multiple wounds to the bilateral lower extremity mostly pressure ulcers however they are currently covered with a dry scabs with no significant surrounding swelling redness recommend local wound care by keeping them dry and of the pressure no need for Medihoney, wound to the right lateral leg will apply dry Aquacel silver dressing change every 48 hours and keep the area of the pressure. 2patient with a stage II sacral pressure ulcer but no cellulitis local wound care with keeping the area of pressure as the family refuses Aquacel silver dressing 3-patient positive blood culture with staph epi likely skin contamination and patient be monitored closely off of vancomycin 4patient with a fever and left-sided pneumonia questionably aspiration etiology patient did responded to Zosyn unfortunately she has lost her IV, patient seemed to be doing well with Augmentin and the patient white count has normalized will monitor the patient closely Time with Patient: Less than 30
[2022-10-07] MEDS: DEXTROSE 5%-0.45% NACL 1,000 ML IV SCH (13:14)
[2022-10-07 14:51] VITALS: BP 149/87; PULSE 103; RESP 19; TEMP 98.8
== END 2022-10-07 17:53 | disposition home health service (06) | DRG 640 ==
LOC: EC 14:32 → 6NMEDSUR 20:03 → 4SSUR 20:13 → OBSVTOIN 09-25 13:54
PROVIDERS: ADMIT Family Medicine; ATTEND Family Medicine
PROC: 05HA33Z Insertion of Infusion Device into Left Brachial Vein, Percutaneous Approach (ICD-10-PCS; 2022-09-25)
PROC: 05HD33Z Insertion of Infusion Device into Right Cephalic Vein, Percutaneous Approach (ICD-10-PCS; 2022-09-26)
PROC: 0DH63UZ Insertion of Feeding Device into Stomach, Percutaneous Approach (ICD-10-PCS; principal; 2022-09-29)
PROC: 3E0G76Z Introduction of Nutritional Substance into Upper GI, Via Natural or Artificial Opening (ICD-10-PCS; principal; 2022-09-29)
PROC: 30233N1 Transfusion of Nonautologous Red Blood Cells into Peripheral Vein, Percutaneous Approach (ICD-10-PCS; 2022-09-29)
PROC: 05HA33Z Insertion of Infusion Device into Left Brachial Vein, Percutaneous Approach (ICD-10-PCS; 2022-09-30)
DX: E43 Unspecified severe protein-calorie malnutrition (principal); J69.0 Pneumonitis due to inhalation of food and vomit; L89.893 Pressure ulcer of other site, stage 3; I69.354 Hemiplegia and hemiparesis following cerebral infarction affecting left non-dominant side; F20.0 Paranoid schizophrenia; J98.11 Atelectasis; L03.119 Cellulitis of unspecified part of limb; L97.222 Non-pressure chronic ulcer of left calf with fat layer exposed; L97.812 Non-pressure chronic ulcer of other part of right lower leg with fat layer exposed; I13.0 Hypertensive heart and chronic kidney disease with heart failure and stage 1 through stage 4 chronic kidney disease, or unspecified chronic kidney disease; E87.20 Acidosis, unspecified; I69.398 Other sequelae of cerebral infarction; G40.909 Epilepsy, unspecified, not intractable, without status epilepticus; F03.90 Unspecified dementia, unspecified severity, without behavioral disturbance, psychotic disturbance, mood disturbance, and anxiety; D63.1 Anemia in chronic kidney disease; I50.9 Heart failure, unspecified; Z68.33 Body mass index [BMI] 33.0-33.9, adult; L89.152 Pressure ulcer of sacral region, stage 2; R13.10 Dysphagia, unspecified; N18.9 Chronic kidney disease, unspecified; L89.611 Pressure ulcer of right heel, stage 1; L89.620 Pressure ulcer of left heel, unstageable; R62.7 Adult failure to thrive; J44.9 Chronic obstructive pulmonary disease, unspecified; D50.9 Iron deficiency anemia, unspecified; Z95.828 Presence of other vascular implants and grafts; F41.9 Anxiety disorder, unspecified; G47.00 Insomnia, unspecified; E78.5 Hyperlipidemia, unspecified; M10.9 Gout, unspecified; Z87.891 Personal history of nicotine dependence; E83.42 Hypomagnesemia; G89.29 Other chronic pain; E87.5 Hyperkalemia; I25.10 Atherosclerotic heart disease of native coronary artery without angina pectoris; I25.2 Old myocardial infarction; D56.3 Thalassemia minor; E86.0 Dehydration; M19.90 Unspecified osteoarthritis, unspecified site; Z74.01 Bed confinement status; M24.59 Contracture, other specified joint; Z87.440 Personal history of urinary (tract) infections; Z79.899 Other long term (current) drug therapy; Z82.3 Family history of stroke; Z82.49 Family history of ischemic heart disease and other diseases of the circulatory system; Z87.01 Personal history of pneumonia (recurrent); Z71.3 Dietary counseling and surveillance; Z86.79 Personal history of other diseases of the circulatory system; Z79.891 Long term (current) use of opiate analgesic; Z88.5 Allergy status to narcotic agent; Z28.311 Partially vaccinated for COVID-19; Z96.89 Presence of other specified functional implants
CPT/HCPCS: 36410; 36415; 36430; 43246; 71045; 71046; 71250; 74230; 76937; 80048; 80053; 81001; 82525; 82607; 82728; 82746; 83021; 83540; 83550; 83690; 83735; 83921; 84100; 84132; 84443; 85025; 85027; 85610; 85730; 86140; 86850; 86900; 86901; 86920; 87040; 87077; 87086; 87186; 93005; 96365; 99284

== ENCOUNTER 2022-12-11 16:37 | Inpatient (IN) | payer OTHER ==
--- NOTE | 2022-12-11 18:49 | CT ---
EXAMINATION TYPE: CT abdomen pelvis wo con CT DLP: 701.9 mGycm, Automated exposure control for dose reduction was used. DATE OF EXAM: 12/11/2022 6:38 PM COMPARISON: CT abdomen pelvis most recent from 08/01/2021. CLINICAL INDICATION:Female, 62 years old with history of Right-sided abdominal swelling, PEG tube con cerns; Right-sided abdominal swelling, PEG tube concerns TECHNIQUE: Axial CT of the abdomen and pelvis. Sagittal and coronal reformats were created on a [employer] workstation. Contrast used: None Oral contrast used: without Oral Contrast FINDINGS: LOWER CHEST: Unremarkable ABDOMEN LIVER: Unremarkable GALLBLADDER AND BILE DUCTS: The gallbladder is not definitively visualized. PANCREAS: Unremarkable. SPLEEN: Scattered calcified granulomas. ADRENAL GLANDS: Unremarkable. KIDNEYS AND URETERS: No evidence of hydronephrosis or renal calculus. The ureters are unremarkable. PELVIS BLADDER: Unremarkable REPRODUCTIVE: Unremarkable. ABDOMEN & PELVIS STOMACH AND BOWEL: PEG tube with balloon in the stomach lumen. The duodenum is unremarkable. No evide nce of bowel obstruction. PERITONEUM/RETROPERITONEUM: No evidence of pneumoperitoneum or free fluid. VASCULATURE: Moderate atherosclerotic calcifications are present throughout the abdominal aorta and i ts branches. No evidence of aortic aneurysm. MUSCULOSKELETAL: No acute osseous abnormalities. Moderate disc degeneration changes are present throu ghout the thoracolumbar spine. LYMPH NODES: No gross evidence for lymphadenopathy. SOFT TISSUE/ABDOMINAL WALL: Diffuse anasarca of the soft tissues. Electronic device in the left lower abdomen wall. The ascending into the spine and terminating in the thecal sac. IMPRESSION: 1. PEG tube in appropriate position. 2. Anasarca of the soft tissues correlate for systemic processes within spacing of fluid.
--- NOTE | 2022-12-11 19:43 | ED ---
General Adult HPI - General Chief complaint: Recheck/Abnormal Lab/Rx Stated complaint: feeding tube issues Time Seen by Provider: 12/11/22 17:52 Source: patient Mode of arrival: wheelchair - History of Present Illness Initial comments: Patient is a 62-year-old female presenting with chief complaint of swelling to the right side of the abdomen. Patient had a PEG tube placed in September of this year at our facility by Dr. Herrera. Caregiver notes that swelling started yesterday and was much worse today. They were evaluated by Dr. Harley who advised reporting to the ER for computed tomography scan. No abdominal pain. No chest pain or difficulty breathing. No fevers or chills. No nausea or vomiting. No change in bowel movements. - Related Data Home Medications Medication Instructions Recorded Confirmed Lacosamide [Vimpat] 100 mg PEG/G-TUBE BID 07/03/22 12/11/22 Metoprolol Tartrate [Lopressor] 50 mg PEG/G-TUBE BID 07/03/22 12/11/22 Sertraline [Zoloft] 25 mg PEG/G-TUBE DAILY 07/03/22 12/11/22 Sertraline [Zoloft] 100 mg PEG/G-TUBE DAILY 07/03/22 12/11/22 risperiDONE [RisperDAL] 1 mg PEG/G-TUBE HS 07/03/22 12/11/22 oxyCODONE HCL/ACETAMINOPHEN 1 tab PEG/G-TUBE QID PRN 09/22/22 12/11/22 [Percocet 10-325 mg] Pantoprazole [Protonix] 40 mg PEG/G-TUBE AC-BID 12/11/22 12/11/22 diphenhydrAMINE [Benadryl] 75 mg PEG/G-TUBE BID PRN 12/11/22 12/11/22 Previous Rx's Medication Instructions Recorded Divalproex Sprinkle [Depakote 250 mg PEG/G-TUBE HS 90 Days #180 10/07/22 Sprinkle] cap Divalproex Sprinkle [Depakote 500 mg PEG/G-TUBE DAILY 90 Days 10/07/22 Sprinkle] #90 cap Allergies Allergy/AdvReac Type Severity Reaction Status Date / Time hydromorphone [From Dilaudid] Allergy Swelling Verified 12/11/22 22:32 morphine Allergy Swelling Verified 12/11/22 22:32 Review of Systems ROS Statement: Those systems with pertinent positive or pertinent negative responses have been documented in the HPI. ROS Other: All systems not noted in ROS Statement are negative. 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 gout, PANCREATITIS, pseudoseizures, UTI, gallstones, tremors, hx multiple brain aneursyms History of Any Multi-Drug Resistant Organisms: None Reported Date of last positivie culture/infection: 03/18/18 ESBL E.coli MDRO Source:: Urine Past Surgical History: Section, Cholecystectomy, Orthopedic Surgery Additional Past Surgical History / Comment(s): hx aneurysms- COILS AND STENTS TO BRAIN, repair tendons r/t gout BILATERAL FEET; Pain pump inserted on 04/21/22 Past Anesthesia/Blood Transfusion Reactions: No Reported Reaction Additional Past Anesthesia/Blood Transfusion Reaction / Comment(s): PT HAS HAD BLOOD TRANSFUSIONS FOR ANEMIA-NO REACTION. Past Psychological History: Anxiety, Depression, Schizophrenia Smoking Status: Former smoker Past Alcohol Use History: Abuse, Heavy Past Drug Use History: Cocaine - Past Family History Sister(s) Family Medical History: Myocardial Infarction ([place]) Father Family Medical History: Cancer Additional Family Medical History / Comment(s): throat, lung, and rectal cancer Mother Family Medical History: Myocardial Infarction ([place]) Additional Family Medical History / Comment(s): stroke General Exam Limitations: physical limitation General appearance: alert, in no apparent distress Head exam: Present: atraumatic, normocephalic, normal inspection Eye exam: Present: normal appearance, EOMI. Absent: scleral icterus, pe riorbital swelling Neck exam: Present: normal inspection, full ROM Respiratory exam: Present: normal lung sounds bilaterally. Absent: respiratory distress, wheezes, rales, rhonchi, stridor Cardiovascular Exam: Present: regular rate, normal rhythm, normal heart sounds. Absent: systolic murmur, diastolic murmur, rubs, gallop, clicks GI/Abdominal exam: Present: soft, other (swelling R side). Absent: distended, tenderness, guarding, rebound, rigid Neurological exam: Present: alert, oriented X3 Psychiatric exam: Present: normal affect, normal mood Course Vital Signs 12/11/22 12/11/22 12/11/22 17:29 23:38 23:48 Temperature 98.3 F Pulse Rate 73 74 75 Respiratory 18 Rate Blood Pressure 147/91 O2 Sat by Pulse 99 Oximetry 12/11/22 23:58 Temperature Pulse Rate 89 Respiratory 18 Rate Blood Pressure 120/88 O2 Sat by Pulse 98 Oximetry EKG Findings - EKG Comments: EKG Findings:: Sinus rhythm ventricular rate 74. OK interval 149. QRS 92. QT 390. QTC 418. No peaked T waves or bradycardia. Normal axis. Medical Decision Making - Medical Decision Making Was pt. sent in by a medical professional or institution (, PA, STERILIZATION TECH, urgent care, hospital, or correction...) When possible be specific @ -Sent by PCP Dr. Harley Did you speak to anyone other than the patient for history (EMS, parent, family, police, friend...)? What history was obtained from this source @ -History is mosty supplied by the patient's caregiver Did you review nursing and triage notes (agree or disagree)? Why? @ -I reviewed and agree with nursing and triage notes Were old charts reviewed (outside hosp., previous admission, EMS record, old EKG, old radiological studies, urgent care reports/EKG's, correction records)? Report findings @ -No old charts were reviewed Differential Diagnosis (chest pain, altered mental status, abdominal pain women, abdominal pain men, vaginal bleeding, weakness, fever, dyspnea, syncope, headache, dizziness, GI bleed, back pain, seizure, CVA, palpatations, mental health, musculoskeletal)? @ -Differential includes abdominal mass, PEG tube malfunction, acute intra- abdominal process, this is not an all inclusive list EKG interpreted by me (3pts min.). @ -As above X-rays interpreted by me (1pt min.). @ -None done CT interpreted by me (1pt min.). @ -CT shows that PEG tube is in appropriate position. Anasarca of the soft tissues. U/S interpreted by me (1pt. min.). @ -None done What testing was considered but not performed or refused? (CT, X-rays, U/S, labs)? Why? @ -None What meds were considered but not given or refused? Why? @ -None Did you discuss the management of the patient with other professionals (professionals i.e. Dr., PA, STERILIZATION TECH, lab, RT, psych nurse, social research assistant, marine equipment test engineer, teacher, chief media officer, spring encaser)? Give summary @ -Spoke with Dr. Harley who accepts admission Was smoking cessation discussed for >3mins.? @ -No Was critical care preformed (if so, how long)? @ -No Were there social determinants of health that impacted care today? How? (Homelessness, low income, unemployed, alcoholism, drug addiction, transportation, low edu. Level, literacy, decrease access to med. care, halfway, rehab)? @ -No Was there de-escalation of care discussed even if they declined (Discuss DNR or withdrawal of care, Hospice)? DNR status @ -No What co-morbidities impacted this encounter? (DM, HTN, Smoking, COPD, CAD, Cancer, CVA, ARF, Chemo, Hep., AIDS, mental health diagnosis, sleep apnea, morbid obesity)? @ -None Was patient admitted / discharged? Hospital course, mention meds given and route, prescriptions, significant lab abnormalities, going to OR and other pertinent info. @ -This is a 62-year-old female presenting with chief complaint of swelling to the right side of the abdomen. Sent by her PCP for concerns of PEG tube malfunction. On physical examination there is some swelling to the right side of the abdomen noted. He also notes some swelling to the right leg, her recreational therapy technician at bedside states that she has alternating swelling to the lower extremities based on her positioning in bed. CT shows anasarca the soft tissues. Potassium is 6.3, sample was nonhemolyzed. EKG shows no bradycardia, peaked T waves, or other concerning findings with hyperkalemia. Patient is treated with insulin and dextrose as well as albuterol. She started on IV fluids. I spoke with Dr. Harley who accepted admission. Patient and caregiver are agreeable with this plan. I discussed this case with my attending Dr. Crowe Undiagnosed new problem with uncertain prognosis? @ -No Drug Therapy requiring intensive monitoring for toxicity (Heparin, Nitro, Insu femi, Cardizem)? @ -No Were any procedures done? @ -No Diagnosis/symptom? @ -Hyperkalemia Acute, or Chronic, or Acute on Chronic? @ -Acute Uncomplicated (without systemic symptoms) or Complicated (systemic symptoms)? @ -Complicated Side effects of treatment? @ -No Exacerbation, Progression, or Severe Exacerbation? @ -No Poses a threat to life or bodily function? How? (Chest pain, [place], [place], pneumonia, PE, COPD, DKA, ARF, appy, cholecystitis, CVA, Diverticulitis, Homicidal, Suicidal, threat to staff... and all critical care pts) @ -Yes - Lab Data Result diagrams: 12/11/22 19:16 12/11/22 22:11 Lab Results 12/11/22 12/11/22 12/11/22 Range/Units 19:16 19:16 22:11 WBC 8.1 (3.8-10.6) k/uL RBC 4.01 (3.80-5.40) m/uL Hgb 10.6 L (11.4-16.0) gm/dL Hct 32.6 L (34.0-46.0) % MCV 81.3 (80.0-100.0) fL MCH 26.4 (25.0-35.0) pg MCHC 32.5 (31.0-37.0) g/dL RDW 18.4 H (11.5-15.5) % Plt Count 162 D (150-450) k/uL MPV 8.4 Neutrophils % (Manual) 56 % Lymphocytes % (Manual) 38 % Monocytes % (Manual) 6 % Neutrophils # (Manual) 4.54 (1.3-7.7) k/uL Lymphocytes # (Manual) 3.08 (1.0-4.8) k/uL Monocytes # (Manual) 0.49 (0-1.0) k/uL Nucleated RBCs 0 (0-0) /100 WBC Manual Slide Review Performed Hypochromasia Slight Poikilocytosis (manual Present Anisocytosis Slight Microcytosis Slight Target Cells Present Sodium 136 L (137-145) mmol/L Potassium 6.3 H* (3.5-5.1) mmol/L Chloride 112 H (98-107) mmol/L Carbon Dioxide 17 L (22-30) mmol/L Anion Gap 7 mmol/L BUN 59 H (7-17) mg/dL Creatinine 1.01 (0.52-1.04) mg/dL Est GFR (CKD-EPI)AfAm 68 (>60 ml/min/1.73 sqM) Est GFR (CKD-EPI)NonAf 59 (>60 ml/min/1.73 sqM) Glucose 77 (74-99) mg/dL Plasma Lactic Acid Shen 0.9 (0.7-2.0) mmol/L Calcium 8.4 (8.4-10.2) mg/dL Total Bilirubin 0.4 (0.2-1.3) mg/dL AST 33 (14-36) U/L ALT 29 (4-34) U/L Alkaline Phosphatase 117 (38-126) U/L Total Protein 6.3 (6.3-8.2) g/dL Albumin 3.0 L (3.5-5.0) g/dL Disposition Clinical Impression: Hyperkalemia Disposition: ADMITTED IP TO THIS [facility] Condition: Fair Time of Disposition: 23:55
[2022-12-11 19:48] LABS: Anisocytosis Slight; HCT 32.6 % (34.0-46.0); HGB 10.6 gm/dL (11.4-16.0); Hypochromasia Slight; MCH 26.4 pg (25.0-35.0); MCHC 32.5 g/dL (31.0-37.0); MCV 81.3 fL (80.0-100.0); Mean Platelet Volume 8.4; Microcytosis Slight; RBC 4.01 m/uL (3.80-5.40); RDW 18.4 % (11.5-15.5); WBC 8.1 k/uL (3.8-10.6)
[2022-12-11 20:09] LABS: Platelet Count 162 k/uL (150-450)
[2022-12-11] MEDS ORDERED: oxyCODONE-APAP 10-325MG 1 EACH TAB PO STA (20:54)
[2022-12-11 21:12] LABS: Lymphocytes # (M) 3.08 k/uL (1.0-4.8); Monocytes # (M) 0.49 k/uL (0-1.0); Neutrophils # (M) 4.54 k/uL (1.3-7.7); Neutrophils % (M) 56 %; Nucleated Red Blood Cells 0 /100 WBC (0-0); Total Cells Counted 100
[2022-12-11 21:13] LABS: Poikilocytosis (M) Present; Target Cells Present
[2022-12-11 22:40] LABS: Calcium 8.4 mg/dL (8.4-10.2); Total Bilirubin 0.4 mg/dL (0.2-1.3); Total Protein 6.3 g/dL (6.3-8.2)
[2022-12-11 22:49] LABS: Potassium 6.3 mmol/L (3.5-5.1)
[2022-12-11] MEDS ORDERED: DEXTROSE 50% SYRINGE 50 ML IVP ONE (23:06)
[2022-12-11] MEDS ORDERED: INSULIN REGULAR 100 UNIT/ML VIAL (IV) IV ONE (23:06)
[2022-12-11] MEDS ORDERED: ALBUTEROL NEB (CONC) 2.5 MG/0.5 ML INHALATION ONE (23:06)
[2022-12-11] MEDS ORDERED: NALOXONE 0.4 MG/ML 1 ML VIAL IV PRN (23:51)
[2022-12-12] MEDS: SODIUM CHLORIDE 0.9% 1,000 ML IV SCH ×2 (00:14→19:50)
[2022-12-12 01:56] LABS: Glucose,Whole Blood 94 mg/dL (70-110)
[2022-12-12] MEDS ORDERED: SODIUM ZIRCONIUM CYCLOSILICATE 10 GM PACKET PO ONE ×3 (05:52→21:00)
[2022-12-12] MEDS ORDERED: SODIUM BICARB 8.4% 50 ML SYR (1 MEQ/ML) IV STA (07:04)
[2022-12-12] MEDS ORDERED: FUROSEMIDE 10 MG/ML 2 ML VIAL IV ONE (10:39)
[2022-12-12 11:07] LABS: Calcium 8.2 mg/dL (8.4-10.2)
[2022-12-12 11:14] LABS: Potassium 6.4 mmol/L (3.5-5.1)
[2022-12-12] MEDS ORDERED: INSULIN REGULAR 100 UNIT/ML VIAL (IV) IV ONE (11:50)
[2022-12-12] MEDS ORDERED: DEXTROSE 50% SYRINGE 50 ML IVP STA (11:50)
--- NOTE | 2022-12-12 12:00 | P.NPCON ---
History of Present Illness - Reason for Consult hyperkalemia - History of Present Illness Reason for consultation: Hyperkalemia History of present illness: Patient is a 62-year-old female seen in consultation for hyperkalemia. Patient was seen and examined in the emergency room. Patient's potassium level on admission was 6.3 and repeat was 6.4. This was medically treated with IV calcium, insulin with D50 as well as sodium bicarb. She also received lokelma. No evidence of urinary retention. Most recent potassium is 6.4 but is hemolyzed. Patient has been voiding. There is no evidence of urinary retention. Patient states she has a PEG tube in receives tube feeds. She was acidotic which is improved. GFR is at baseline with creatinine is 0.87. I don't see any nonsteroidals or any other medications that would raise potassium level in her home medication list. Computed tomography scan showed no evidence of hydronephrosis. Anasarca was noted. He does have edema in the lower extremities. Hemodynamically stable. No chest pain or shortness of breath. No hematuria. She's on room air. Vital signs are stable. General: No acute distress. HEENT: Head exam unremarkable. LUNGS: No audible rhonchi or wheezes. HEART: Rate and Rhythm are regular. ABDOMEN: PEG tube noted. EXTREMITITES: 1+ edema. 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 gout, PANCREATITIS, pseudoseizures, UTI, gallstones, tremors, hx multiple brain aneursyms History of Any Multi-Drug Resistant Organisms: None Reported Date of last positivie culture/infection: 03/18/18 ESBL E.coli MDRO Source:: Urine Past Surgical History: Section, Cholecystectomy, Orthopedic Surgery Additional Past Surgical History / Comment(s): hx aneurysms- COILS AND STENTS TO BRAIN, repair tendons r/t gout BILATERAL FEET; Pain pump inserted on 04/21/22 Past Anesthesia/Blood Transfusion Reactions: No Reported Reaction Additional Past Anesthesia/Blood Transfusion Reaction / Comment(s): PT HAS HAD BLOOD TRANSFUSIONS FOR ANEMIA-NO REACTION. Past Psychological History: Anxiety, Depression, Schizophrenia Smoking Status: Former smoker Past Alcohol Use History: Abuse, Heavy Past Drug Use History: Cocaine - Past Family History Sister(s) Family Medical History: Myocardial Infarction ([place]) Father Family Medical History: Cancer Additional Family Medical History / Comment(s): throat, lung, and rectal cancer Mother Family Medical History: Myocardial Infarction ([place]) Additional Family Medical History / Comment(s): stroke Medications and Allergies Home Medications Medication Instructions Recorded Confirmed Type Lacosamide [Vimpat] 100 mg PEG/G-TUBE BID 07/03/22 12/11/22 History Metoprolol Tartrate [Lopressor] 50 mg PEG/G-TUBE BID 07/03/22 12/11/22 History Sertraline [Zoloft] 25 mg PEG/G-TUBE DAILY 07/03/22 12/11/22 History Sertraline [Zoloft] 100 mg PEG/G-TUBE DAILY 07/03/22 12/11/22 History risperiDONE [RisperDAL] 1 mg PEG/G-TUBE HS 07/03/22 12/11/22 History oxyCODONE HCL/ACETAMINOPHEN 1 tab PEG/G-TUBE QID PRN 09/22/22 12/11/22 History [Percocet 10-325 mg] Divalproex Sprinkle [Depakote 250 mg PEG/G-TUBE HS 90 Days #180 10/07/22 12/11/22 Rx Sprinkle] cap Divalproex Sprinkle [Depakote 500 mg PEG/G-TUBE DAILY 90 Days 10/07/22 12/11/22 Rx Sprinkle] #90 cap Pantoprazole [Protonix] 40 mg PEG/G-TUBE AC-BID 12/11/22 12/11/22 History diphenhydrAMINE [Benadryl] 75 mg PEG/G-TUBE BID PRN 12/11/22 12/11/22 History Allergies Allergy/AdvReac Type Severity Reaction Status Date / Time hydromorphone [From Dilaudid] Allergy Swelling Verified 12/11/22 22:32 morphine Allergy Swelling Verified 12/11/22 22:32 Physical Exam Vitals: Vital Signs Temp Pulse Resp BP Pulse Ox 12/12/22 07:39 98 F 85 18 129/90 100 12/12/22 06:30 77 18 139/87 95 12/12/22 06:00 76 132/97 12/12/22 05:30 79 145/95 12/12/22 05:00 84 138/78 12/12/22 04:30 79 127/84 12/12/22 04:00 81 135/73 12/12/22 03:30 80 115/83 12/12/22 03:00 83 107/74 99 12/12/22 02:30 101/75 100 12/12/22 02:00 85 99/78 99 12/12/22 01:56 88 99/78 99 12/11/22 23:58 89 18 120/88 98 12/11/22 23:48 75 12/11/22 23:38 74 12/11/22 17:29 98.3 F 73 18 147/91 99 Intake and Output 12/11/22 12/12/22 12/12/22 22:59 06:59 14:59 Other: Weight 68.039 kg Results - Lab Results Most recent lab results Calcium 8.2 mg/dL (8.4-10.2) L 12/12/22 10:41 12/11/22 19:16 12/12/22 10:41 Assessment and Plan Plan: Assessment: 1. Hyperkalemia secondary to mild acute kidney injury and acidosis. Also concern for high potassium content in tube feeds. Most recent potassium level was 6.4 but was slightly hemolyzed. No evidence of urinary retention. 2. Metabolic acidosis from IV fluids. 3. Volume overload. 4. Failure to thrive. Being fed via PEG tube. Plan: Hep-Lock IV fluids. Lasix 20 mg IV once now. 1 g IV calcium gluconate, 10 units IV insulin with an amp of D50 now. 10 g lokelma now. Repeat potassium level in 2-3 hours. Continue to monitor renal function and urine output. Thank you for the consultation. I will continue to follow the patient with you during her hospital stay.
[2022-12-12] MEDS ORDERED: CALCIUM GLUCONATE IN NACL 1 GM in SALINE 1 100ML.BAG IVPB ONE ×2 (12:15→17:44)
[2022-12-12] MEDS: PANTOPRAZOLE SODIUM 40 MG GRANULE PKT PO SCH (17:36)
[2022-12-12] MEDS: oxyCODONE-APAP 10-325MG 1 EACH TAB PEG/G-TUBE PRN (21:34)
[2022-12-12] MEDS: DIVALPROEX SPRINKLE 125 MG CAP.SPRINK PEG/G-TUBE SCH (22:13)
[2022-12-12] MEDS: LACOSAMIDE 50 MG TABLET PEG/G-TUBE SCH (22:13)
[2022-12-12] MEDS: risperiDONE 1 MG TAB PEG/G-TUBE SCH (22:13)
[2022-12-12] MEDS: METOPROLOL TARTRATE 50 MG TAB PEG/G-TUBE SCH (22:13)
--- NOTE | 2022-12-13 03:11 | HP ---
HISTORY AND PHYSICAL Jeane Urbano admitted for severe hyperkalemia, not responsive to Lokelma, with renal consult as well as increased abdominal girth with ascites, anasarca changes in the abdomen. Surgery consult for PEG tube placement concerns. Renal consult for end-stage renal disease and hyperkalemia. The patient remains on medications as mentioned above. The patient has PEG tube for feeding secondary to esophageal dysmobility. No evidence for urinary retention. Potassium 6.4. She has been voiding. She has a PEG. GFR is at baseline. Creatinine 0.87. Not sure why her potassium is high. Wait for renal physician edema in extremities. No chest pain or shortness of breath. REVIEW OF SYSTEMS: 14-point review of systems otherwise negative. PAST MEDICAL HISTORY: CVA, TIA, hypertension, dyslipidemia, osteoarthritis, leg weakness, pancreatitis, pseudoseizures, UTI, gallstones, tremors, ESBL E coli. PAST SURGICAL HISTORY: , cholecystectomy, orthopedic surgery, coils and stents to the brain, tendinous repair, pain pump. PAST FAMILY HISTORY: Sister with [place]. Father with cancer of throat, lung, and rectal. Mother, myocardial infarction and stroke. MEDICATIONS: Medicines reviewed. ALLERGIES: Reviewed. PHYSICAL EXAMINATION: VITAL SIGNS: Pulse 70s to 90s, blood pressure 120s to 130s over 70s to 90s, O2 95% to 100%. PSYCH: She gives appropriate answers. CARDIOVASCULAR: S1, S2. LUNGS: Decreased breath sounds x4. GI: Has a PEG tube on the left side of the abdomen. She has distention increased girth on the right abdomen. ASSESSMENT: Anemia, hyperkalemia secondary to acute metabolic acidosis, concern for high potassium and tube feeds. No evidence urinary retention, metabolic acidosis, volume overload, failure to thrive, being fed by tube feeds. Hypaque IV fluids, Lasix x1, calcium gluconate 1 g was given, 10 units IV insulin with an amp of D50. prognosis guarded. Please see further orders. MMODL / IJN: [id number] /
[2022-12-13] MEDS: PANTOPRAZOLE SODIUM 40 MG GRANULE PKT PO SCH ×2 (06:45→17:45)
[2022-12-13 08:05] LABS: Glucose,Whole Blood 136 mg/dL (70-110)
[2022-12-13 08:30] LABS: ALT 25 U/L (4-34); AST 33 U/L (14-36); African American GFR (CKD) >90 (>60 ml/min/1.73 sqM); Albumin 2.5 g/dL (3.5-5.0); Alkaline Phosphatase 111 U/L (38-126); Anion Gap 7 mmol/L; Blood Urea Nitrogen 45 mg/dL (7-17); Calcium 8.1 mg/dL (8.4-10.2); Carbon Dioxide 20 mmol/L (22-30); Chloride 112 mmol/L (98-107); Glucose 126 mg/dL (74-99); Magnesium 1.8 mg/dL (1.6-2.3); Non-African American GFR(CKD) 78 (>60 ml/min/1.73 sqM); Potassium 5.9 mmol/L (3.5-5.1); Sodium 139 mmol/L (137-145); Total Bilirubin 0.5 mg/dL (0.2-1.3); Total Protein 5.2 g/dL (6.3-8.2)
[2022-12-13 08:57] LABS: Anisocytosis Slight; Basophils % (A) 0 %; Eosinophils # (A) 0.2 k/uL (0-0.7); Eosinophils % (A) 2 %; HCT 26.1 % (34.0-46.0); Lymphocytes # (A) 1.4 k/uL (1.0-4.8); Lymphocytes % (A) 21 %; MCH 26.1 pg (25.0-35.0); MCHC 32.7 g/dL (31.0-37.0); MCV 79.6 fL (80.0-100.0); Mean Platelet Volume 8.9; Microcytosis Slight; Monocytes # (A) 0.6 k/uL (0-1.0); Monocytes % (A) 8 %; Neutrophils # (A) 4.6 k/uL (1.3-7.7); Neutrophils % (A) 68 %; Platelet Count 167 k/uL (150-450); RBC 3.28 m/uL (3.80-5.40); RDW 18.4 % (11.5-15.5); WBC 6.7 k/uL (3.8-10.6)
[2022-12-13 09:00] LABS: HGB 8.6 gm/dL (11.4-16.0)
[2022-12-13] MEDS: SERTRALINE 100 MG TAB PEG/G-TUBE SCH (09:41)
[2022-12-13] MEDS: SERTRALINE 25 MG TAB PEG/G-TUBE SCH (09:41)
[2022-12-13] MEDS: DIVALPROEX SPRINKLE 125 MG CAP.SPRINK PEG/G-TUBE SCH ×2 (09:42→19:48)
[2022-12-13] MEDS: LACOSAMIDE 50 MG TABLET PEG/G-TUBE SCH ×2 (09:42→19:48)
[2022-12-13] MEDS: METOPROLOL TARTRATE 50 MG TAB PEG/G-TUBE SCH ×2 (09:45→19:48)
--- NOTE | 2022-12-13 10:31 | P.PN ---
Subjective Patient is seen in follow-up for hyperkalemia. Potassium level this morning is 5.9. She is receiving bolus tube feeds. Also on normal saline. Slightly acidotic. Vital signs are stable. General: Resting in bed. No acute distress. HEENT: Head exam is unremarkable. LUNGS: No audible rhonchi or wheezes. HEART: Rate and Rhythm are regular. ABDOMEN: PEG tube noted. Nontender. EXTREMITITES: No edema. Objective - Vital Signs Vital signs: Vital Signs Temp 97.6 F 12/13/22 04:00 Pulse 78 12/13/22 04:00 Resp 16 12/13/22 04:00 BP 146/83 12/13/22 04:00 Pulse Ox 99 12/13/22 04:00 FiO2 Intake & Output 12/12/22 12/13/22 12/13/22 18:59 06:59 18:59 Output Total 750 Balance -750 Weight 68.039 kg Output: Urine 750 Other: Voiding Method External Catheter - Labs CBC & Chem 7: 12/13/22 07:57 12/13/22 07:57 Labs: Abnormal Lab Results - Last 24 Hours (Table) 12/12/22 12/12/22 12/13/22 Range/Units 10:41 16:48 07:57 RBC (3.80-5.40) m/uL Hgb (11.4-16.0) gm/dL Hct (34.0-46.0) % MCV (80.0-100.0) fL RDW (11.5-15.5) % Potassium 6.4 H* 7.2 H* 5.9 H (3.5-5.1) mmol/L Chloride 111 H 112 H (98-107) mmol/L Carbon Dioxide 20 L (22-30) mmol/L BUN 57 H 45 H (7-17) mg/dL Glucose 68 L 126 H (74-99) mg/dL POC Glucose (mg/dL) (70-110) mg/dL Calcium 8.2 L 8.1 L (8.4-10.2) mg/dL Total Protein 5.2 L (6.3-8.2) g/dL Albumin 2.5 L (3.5-5.0) g/dL 12/13/22 12/13/22 Range/Units 07:57 08:02 RBC 3.28 L (3.80-5.40) m/uL Hgb 8.6 L D (11.4-16.0) gm/dL Hct 26.1 L (34.0-46.0) % MCV 79.6 L (80.0-100.0) fL RDW 18.4 H (11.5-15.5) % Potassium (3.5-5.1) mmol/L Chloride (98-107) mmol/L Carbon Dioxide (22-30) mmol/L BUN (7-17) mg/dL Glucose (74-99) mg/dL POC Glucose (mg/dL) 136 H (70-110) mg/dL Calcium (8.4-10.2) mg/dL Total Protein (6.3-8.2) g/dL Albumin (3.5-5.0) g/dL Assessment and Plan Plan: Assessment: 1. Hyperkalemia secondary to mild acute kidney injury and acidosis. Also concern for high potassium content in tube feeds. Potassium level V.9 this morning. Yesterday's sample was hemolyzed. No evidence of urinary retention. 2. Metabolic acidosis from IV fluids. 3. Volume overload. Status post Lasix. Improved. 4. Failure to thrive. Being fed via PEG tube. Plan: Change IV fluids to bicarb drip at 50 mL an hour. Add Lokelma 10 g daily. Change tube feeds to Nepro. Repeat potassium level this evening.
--- NOTE | 2022-12-13 10:37 | P.GSCN ---
History of Present Illness Consult date: 12/13/22 Reason for Consult: Evaluate PEG tube History of present illness: 62-year-old female underwent PEG tube placement on September 26 of this year. We were asked to evaluate the PEG tube. She has been using the PEG tube for bolus feeds. She had a CAT scan performed which showed anasarca. We were also consulted for ascites but I do not see any significant ascites on this recent study. On the CAT scan the patient's PEG tube was appropriately positioned. 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 Past Psychological History: Anxiety, Depression, Schizophrenia Additional Psychological History / Comment(s): paranoid schizophrenia Smoking Status: Former smoker Past Alcohol Use History: Abuse, Heavy Additional Past Alcohol Use History / Comment(s): Stopped smoking 2010 Past Drug Use History: Cocaine Additional Drug Use History / Comment(s): No current use. Last used 17 yrs ago. - Past Family History Sister(s) Family Medical History: Myocardial Infarction (MS) Father Family Medical History: Cancer Additional Family Medical History / Comment(s): throat, lung, and rectal cancer Mother Family Medical History: Myocardial Infarction (MS) Additional Family Medical History / Comment(s): stroke Medications and Allergies Home Medications Medication Instructions Recorded Confirmed Type Lacosamide [Vimpat] 100 mg PEG/G-TUBE BID 07/03/22 12/11/22 History Metoprolol Tartrate [Lopressor] 50 mg PEG/G-TUBE BID 07/03/22 12/11/22 History Sertraline [Zoloft] 25 mg PEG/G-TUBE DAILY 07/03/22 12/11/22 History Sertraline [Zoloft] 100 mg PEG/G-TUBE DAILY 07/03/22 12/11/22 History risperiDONE [RisperDAL] 1 mg PEG/G-TUBE HS 07/03/22 12/11/22 History oxyCODONE HCL/ACETAMINOPHEN 1 tab PEG/G-TUBE QID PRN 09/22/22 12/11/22 History [Percocet 10-325 mg] Divalproex Sprinkle [Depakote 250 mg PEG/G-TUBE HS 90 Days #180 10/07/22 12/11/22 Rx Sprinkle] cap Divalproex Sprinkle [Depakote 500 mg PEG/G-TUBE DAILY 90 Days 10/07/22 12/11/22 Rx Sprinkle] #90 cap Pantoprazole [Protonix] 40 mg PEG/G-TUBE AC-BID 12/11/22 12/11/22 History diphenhydrAMINE [Benadryl] 75 mg PEG/G-TUBE BID PRN 12/11/22 12/11/22 History Allergies Allergy/AdvReac Type Severity Reaction Status Date / Time hydromorphone [From Dilaudid] Allergy Swelling Verified 12/11/22 22:32 morphine Allergy Swelling Verified 12/11/22 22:32 Surgical - Exam Vital Signs Temp Pulse Resp BP Pulse Ox 98.3 F 73 18 147/91 99 12/11/22 17:29 12/11/22 17:29 12/11/22 17:29 12/11/22 17:29 12/11/22 17:29 Physical exam: General: Elderly female with some contractures from previous CVA, mildly malnourished appearing HEENT: Normocephalic, sclerae nonicteric Abdomen: Nontender, nondistended, PEG tube epigastric region, small amount of tube feed drainage around the catheter Extremities: No edema Neuro: Alert and oriented Results - Labs 12/13/22 07:57 12/13/22 07:57 Abnormal Lab Results - Last 24 Hours (Table) 12/12/22 12/12/22 12/13/22 Range/Units 10:41 16:48 07:57 RBC (3.80-5.40) m/uL Hgb (11.4-16.0) gm/dL Hct (34.0-46.0) % MCV (80.0-100.0) fL RDW (11.5-15.5) % Potassium 6.4 H* 7.2 H* 5.9 H (3.5-5.1) mmol/L Chloride 111 H 112 H (98-107) mmol/L Carbon Dioxide 20 L (22-30) mmol/L BUN 57 H 45 H (7-17) mg/dL Glucose 68 L 126 H (74-99) mg/dL POC Glucose (mg/dL) (70-110) mg/dL Calcium 8.2 L 8.1 L (8.4-10.2) mg/dL Total Protein 5.2 L (6.3-8.2) g/dL Albumin 2.5 L (3.5-5.0) g/dL 12/13/22 12/13/22 Range/Units 07:57 08:02 RBC 3.28 L (3.80-5.40) m/uL Hgb 8.6 L D (11.4-16.0) gm/dL Hct 26.1 L (34.0-46.0) % MCV 79.6 L (80.0-100.0) fL RDW 18.4 H (11.5-15.5) % Potassium (3.5-5.1) mmol/L Chloride (98-107) mmol/L Carbon Dioxide (22-30) mmol/L BUN (7-17) mg/dL Glucose (74-99) mg/dL POC Glucose (mg/dL) 136 H (70-110) mg/dL Calcium (8.4-10.2) mg/dL Total Protein (6.3-8.2) g/dL Albumin (3.5-5.0) g/dL Diabetes panel 12/12/22 12/12/22 12/12/22 Range/Units 10:41 16:48 17:51 Sodium 137 (137-145) mmol/L Potassium 6.4 H* 7.2 H* 5.0 (3.5-5.1) mmol/L Chloride 111 H (98-107) mmol/L Carbon Dioxide 22 (22-30) mmol/L BUN 57 H (7-17) mg/dL Creatinine 0.87 (0.52-1.04) mg/dL Glucose 68 L (74-99) mg/dL Calcium 8.2 L (8.4-10.2) mg/dL AST (14-36) U/L ALT (4-34) U/L Alkaline Phosphatase (38-126) U/L Total Protein (6.3-8.2) g/dL Albumin (3.5-5.0) g/dL 12/13/22 Range/Units 07:57 Sodium 139 (137-145) mmol/L Potassium 5.9 H (3.5-5.1) mmol/L Chloride 112 H (98-107) mmol/L Carbon Dioxide 20 L (22-30) mmol/L BUN 45 H (7-17) mg/dL Creatinine 0.80 (0.52-1.04) mg/dL Glucose 126 H (74-99) mg/dL Calcium 8.1 L (8.4-10.2) mg/dL AST 33 (14-36) U/L ALT 25 (4-34) U/L Alkaline Phosphatase 111 (38-126) U/L Total Protein 5.2 L (6.3-8.2) g/dL Albumin 2.5 L (3.5-5.0) g/dL Calcium panel 12/12/22 12/13/22 Range/Units 10:41 07:57 Calcium 8.2 L 8.1 L (8.4-10.2) mg/dL Albumin 2.5 L (3.5-5.0) g/dL Pituitary panel 12/12/22 12/12/22 12/12/22 Range/Units 10:41 16:48 17:51 Sodium 137 (137-145) mmol/L Potassium 6.4 H* 7.2 H* 5.0 (3.5-5.1) mmol/L Chloride 111 H (98-107) mmol/L Carbon Dioxide 22 (22-30) mmol/L BUN 57 H (7-17) mg/dL Creatinine 0.87 (0.52-1.04) mg/dL Glucose 68 L (74-99) mg/dL Calcium 8.2 L (8.4-10.2) mg/dL 12/13/22 Range/Units 07:57 Sodium 139 (137-145) mmol/L Potassium 5.9 H (3.5-5.1) mmol/L Chloride 112 H (98-107) mmol/L Carbon Dioxide 20 L (22-30) mmol/L BUN 45 H (7-17) mg/dL Creatinine 0.80 (0.52-1.04) mg/dL Glucose 126 H (74-99) mg/dL Calcium 8.1 L (8.4-10.2) mg/dL Adrenal panel 12/12/22 12/12/22 12/12/22 Range/Units 10:41 16:48 17:51 Sodium 137 (137-145) mmol/L Potassium 6.4 H* 7.2 H* 5.0 (3.5-5.1) mmol/L Chloride 111 H (98-107) mmol/L Carbon Dioxide 22 (22-30) mmol/L BUN 57 H (7-17) mg/dL Creatinine 0.87 (0.52-1.04) mg/dL Glucose 68 L (74-99) mg/dL Calcium 8.2 L (8.4-10.2) mg/dL Total Bilirubin (0.2-1.3) mg/dL AST (14-36) U/L ALT (4-34) U/L Alkaline Phosphatase (38-126) U/L Total Protein (6.3-8.2) g/dL Albumin (3.5-5.0) g/dL 12/13/22 Range/Units 07:57 Sodium 139 (137-145) mmol/L Potassium 5.9 H (3.5-5.1) mmol/L Chloride 112 H (98-107) mmol/L Carbon Dioxide 20 L (22-30) mmol/L BUN 45 H (7-17) mg/dL Creatinine 0.80 (0.52-1.04) mg/dL Glucose 126 H (74-99) mg/dL Calcium 8.1 L (8.4-10.2) mg/dL Total Bilirubin 0.5 (0.2-1.3) mg/dL AST 33 (14-36) U/L ALT 25 (4-34) U/L Alkaline Phosphatase 111 (38-126) U/L Total Protein 5.2 L (6.3-8.2) g/dL Albumin 2.5 L (3.5-5.0) g/dL Assessment and Plan (1) Abdominal pain Narrative/Plan: 62-year-old female doing well at this time. We're asked to evaluate the patient's PEG tube. This appears to be doing well currently. There is a small amount of tube feed drainage around it which I believe is related to the patient's lack of subcutaneous fat. Continue to observe it for now. Will follow. Current Visit: No Status: Acute Code(s): R10.9 - UNSPECIFIED ABDOMINAL PAIN SNOMED Code(s): 40891155
[2022-12-13] MEDS: DEXTROSE 5% IN WATER 1,000 ML with SODIUM BICARB (1 MEQ/ML) 150 ML IV SCH (11:51)
[2022-12-13] MEDS: SODIUM ZIRCONIUM CYCLOSILICATE 10 GM PACKET PO SCH (11:51)
[2022-12-13 12:00] LABS: Glucose,Whole Blood 87 mg/dL (70-110)
[2022-12-13 12:13] VITALS: BMI 28.3
[2022-12-13 16:49] LABS: Glucose,Whole Blood 94 mg/dL (70-110)
[2022-12-13] MEDS: risperiDONE 1 MG TAB PEG/G-TUBE SCH (19:48)
[2022-12-13] MEDS: oxyCODONE-APAP 10-325MG 1 EACH TAB PEG/G-TUBE PRN (19:51)
[2022-12-14 00:12] LABS: Glucose,Whole Blood 122 mg/dL (70-110)
--- NOTE | 2022-12-14 00:54 | PN ---
PROGRESS NOTE SUBJECTIVE: A 62-year-old female. She is on sodium bicarb, Depakote, Vimpat, Lopressor, Percocet, Protonix, Risperdal, Zoloft, Lokelma. We will give her Lokelma every day 10 g p.o. daily. tube feedings due to hyperkalemia. OBJECTIVE: CARDIOVASCULAR: S1, S2. LUNGS: Clear. GI: Soft. HEMATOLOGY: Negative Homans. PSYCH: Fair mood and affect. NEUROLOGIC: Alert and oriented x3. ASSESSMENT: Hyperkalemia. Chronic renal disease. PEG tube feedings. History of dysmobility. Prognosis guarded. Follow up in next 24 to 48 hours. Possible discharge home. Potassium can be considered as ordered. . MMODL / IJN: [id number] /
[2022-12-14] MEDS: PANTOPRAZOLE SODIUM 40 MG GRANULE PKT PO SCH ×2 (06:23→16:58)
[2022-12-14 06:28] LABS: Glucose,Whole Blood 111 mg/dL (70-110)
[2022-12-14 09:20] LABS: Anisocytosis Slight; Basophils % (A) 0 %; Eosinophils # (A) 0.2 k/uL (0-0.7); Eosinophils % (A) 3 %; HGB 7.7 gm/dL (11.4-16.0); Hypochromasia Slight; Lymphocytes # (A) 1.1 k/uL (1.0-4.8); Lymphocytes % (A) 23 %; MCH 25.2 pg (25.0-35.0); MCHC 30.7 g/dL (31.0-37.0); MCV 82.3 fL (80.0-100.0); Mean Platelet Volume 8.1; Monocytes # (A) 0.3 k/uL (0-1.0); Monocytes % (A) 6 %; Neutrophils # (A) 3.2 k/uL (1.3-7.7); Neutrophils % (A) 67 %; Platelet Count 133 k/uL (150-450); RBC 3.04 m/uL (3.80-5.40); RDW 18.3 % (11.5-15.5); WBC 4.9 k/uL (3.8-10.6)
[2022-12-14] MEDS: DIVALPROEX SPRINKLE 125 MG CAP.SPRINK PEG/G-TUBE SCH ×2 (09:27→19:53)
[2022-12-14] MEDS: LACOSAMIDE 50 MG TABLET PEG/G-TUBE SCH ×2 (09:27→19:53)
[2022-12-14] MEDS: SERTRALINE 25 MG TAB PEG/G-TUBE SCH (09:27)
[2022-12-14] MEDS: SERTRALINE 100 MG TAB PEG/G-TUBE SCH (09:27)
[2022-12-14] MEDS: SODIUM ZIRCONIUM CYCLOSILICATE 10 GM PACKET PO SCH (09:27)
[2022-12-14] MEDS: METOPROLOL TARTRATE 50 MG TAB PEG/G-TUBE SCH ×2 (09:27→19:53)
--- NOTE | 2022-12-14 09:59 | P.PN ---
Subjective Progress Note Date: 12/14/22 Principal diagnosis: PEG tube malfunction Patient's caregiver is present at the bedside today. He states that he was concerned because of swelling along the right side of her body. He was worried that it may be coming from a leak in the feeding tube. She was started on Nepro last night and tolerating at 20 mL per hour. No abdominal pain. Objective - Vital Signs Vital signs: Vital Signs Temp 97.6 F 12/14/22 04:00 Pulse 77 12/14/22 04:00 Resp 16 12/14/22 04:00 BP 133/68 12/14/22 04:00 Pulse Ox 100 12/14/22 04:00 FiO2 Intake & Output 12/13/22 12/14/22 12/14/22 18:59 06:59 18:59 Output Total 500 300 Balance -500 -300 Weight 68.039 kg Output: Urine 500 300 Other: Voiding Method External Catheter External Catheter - Exam Abdomen: Soft, nondistended, catheter in place, no drainage, mild abdominal wall edema - Labs CBC & Chem 7: 12/14/22 08:19 12/13/22 18:03 Labs: Abnormal Lab Results - Last 24 Hours (Table) 12/14/22 12/14/22 12/14/22 Range/Units 00:09 06:26 08:19 RBC 3.04 L (3.80-5.40) m/uL Hgb 7.7 L (11.4-16.0) gm/dL Hct 25.0 L (34.0-46.0) % MCHC 30.7 L (31.0-37.0) g/dL RDW 18.3 H (11.5-15.5) % Plt Count 133 L (150-450) k/uL POC Glucose (mg/dL) 122 H 111 H (70-110) mg/dL Assessment and Plan (1) Abdominal pain Narrative/Plan: Patient doing well today. Catheter was working properly. The swelling that was noticed appears to be related to anasarca. Continue optimization of fluid status per medicine. We'll sign off. Please call if needed. Current Visit: No Status: Acute Code(s): R10.9 - UNSPECIFIED ABDOMINAL PAIN SNOMED Code(s): 61757262
--- NOTE | 2022-12-14 11:46 | P.PN ---
Subjective Patient is seen in follow-up for hyperkalemia. Most recent potassium level IV.9 as of yesterday. She is receiving bolus tube feeds. Changed to Nepro. Also on bicarb drip. Vital signs are stable. General: Resting in bed. No acute distress. HEENT: Head exam is unremarkable. LUNGS: No audible rhonchi or wheezes. HEART: Rate and Rhythm are regular. ABDOMEN: PEG tube noted. Nontender. EXTREMITITES: No edema. Objective - Vital Signs Vital signs: Vital Signs Temp 98.0 F 12/14/22 08:00 Pulse 73 12/14/22 08:00 Resp 16 12/14/22 08:00 BP 118/61 12/14/22 08:00 Pulse Ox 98 12/14/22 08:00 FiO2 Intake & Output 12/13/22 12/14/22 12/14/22 18:59 06:59 18:59 Output Total 500 300 Balance -500 -300 Weight 68.039 kg Output: Urine 500 300 Other: Voiding Method External Catheter External Catheter External Catheter - Labs CBC & Chem 7: 12/14/22 08:19 12/13/22 18:03 Labs: Abnormal Lab Results - Last 24 Hours (Table) 12/14/22 12/14/22 12/14/22 Range/Units 00:09 06:26 08:19 RBC 3.04 L (3.80-5.40) m/uL Hgb 7.7 L (11.4-16.0) gm/dL Hct 25.0 L (34.0-46.0) % MCHC 30.7 L (31.0-37.0) g/dL RDW 18.3 H (11.5-15.5) % Plt Count 133 L (150-450) k/uL POC Glucose (mg/dL) 122 H 111 H (70-110) mg/dL Assessment and Plan Plan: Assessment: 1. Hyperkalemia secondary to mild acute kidney injury and acidosis. Also concern for high potassium content in tube feeds. Potassium level 4.9 yesterday evening. No evidence of urinary retention. 2. Metabolic acidosis from IV fluids. 3. Volume overload. Status post Lasix. Improved. 4. Failure to thrive. Being fed via PEG tube. Plan: Hep-Lock IV fluids. Maintain Lokelma 10 g daily. Changed tube feeds to Nepro. Morning labs pending.
[2022-12-14 11:50] LABS: Glucose,Whole Blood 131 mg/dL (70-110)
[2022-12-14 12:06] LABS: Anisocytosis Slight; Basophils % (A) 0 %; Eosinophils # (A) 0.2 k/uL (0-0.7); Eosinophils % (A) 3 %; HCT 29.3 % (34.0-46.0); HGB 9.1 gm/dL (11.4-16.0); Hypochromasia Slight; Lymphocytes % (A) 19 %; MCH 25.4 pg (25.0-35.0); MCHC 31.1 g/dL (31.0-37.0); MCV 81.7 fL (80.0-100.0); Mean Platelet Volume 8.5; Microcytosis Slight; Monocytes # (A) 0.3 k/uL (0-1.0); Monocytes % (A) 5 %; Neutrophils # (A) 3.7 k/uL (1.3-7.7); Neutrophils % (A) 70 %; Platelet Count 143 k/uL (150-450); RBC 3.58 m/uL (3.80-5.40); WBC 5.3 k/uL (3.8-10.6)
[2022-12-14 12:16] LABS: ALT 25 U/L (4-34); African American GFR (CKD) >90 (>60 ml/min/1.73 sqM); Anion Gap 8 mmol/L; Blood Urea Nitrogen 34 mg/dL (7-17); Calcium 7.9 mg/dL (8.4-10.2); Carbon Dioxide 22 mmol/L (22-30); Chloride 105 mmol/L (98-107); Glucose 138 mg/dL (74-99); Non-African American GFR(CKD) 85 (>60 ml/min/1.73 sqM); Sodium 135 mmol/L (137-145); Total Bilirubin 0.7 mg/dL (0.2-1.3)
[2022-12-14 12:20] LABS: Potassium 5.2 mmol/L (3.5-5.1)
[2022-12-14 12:21] LABS: AST 50 U/L (14-36); Albumin 2.7 g/dL (3.5-5.0); Alkaline Phosphatase 175 U/L (38-126); Magnesium 1.7 mg/dL (1.6-2.3); Total Protein 5.9 g/dL (6.3-8.2)
[2022-12-14] MEDS: DEXTROSE 5% IN WATER 1,000 ML with SODIUM BICARB (1 MEQ/ML) 150 ML IV SCH (13:50)
[2022-12-14] MEDS: SODIUM FERRIC GLUCONAT-SUCROSE 125 MG in SODIUM CHLORIDE 0.9% 100 ML IVPB SCH (13:52)
[2022-12-14 16:34] LABS: Glucose,Whole Blood 139 mg/dL (70-110)
[2022-12-14] MEDS: risperiDONE 1 MG TAB PEG/G-TUBE SCH (19:53)
[2022-12-14] MEDS: oxyCODONE-APAP 10-325MG 1 EACH TAB PEG/G-TUBE PRN (20:33)
[2022-12-15 00:07] LABS: Glucose,Whole Blood 142 mg/dL (70-110)
[2022-12-15 06:10] LABS: Glucose,Whole Blood 110 mg/dL (70-110)
[2022-12-15] MEDS: PANTOPRAZOLE SODIUM 40 MG GRANULE PKT PO SCH ×2 (06:11→16:30)
[2022-12-15 08:39] LABS: African American GFR (CKD) >90 (>60 ml/min/1.73 sqM); Anion Gap 5 mmol/L; Blood Urea Nitrogen 30 mg/dL (7-17); Calcium 7.8 mg/dL (8.4-10.2); Carbon Dioxide 22 mmol/L (22-30); Chloride 108 mmol/L (98-107); Glucose 109 mg/dL (74-99); Magnesium 1.7 mg/dL (1.6-2.3); Non-African American GFR(CKD) 82 (>60 ml/min/1.73 sqM); Potassium 4.4 mmol/L (3.5-5.1); Sodium 135 mmol/L (137-145)
[2022-12-15] MEDS: SERTRALINE 25 MG TAB PEG/G-TUBE SCH (08:45)
[2022-12-15] MEDS: DIVALPROEX SPRINKLE 125 MG CAP.SPRINK PEG/G-TUBE SCH ×2 (08:45→19:48)
[2022-12-15] MEDS: LACOSAMIDE 50 MG TABLET PEG/G-TUBE SCH ×2 (08:45→19:48)
[2022-12-15] MEDS: SERTRALINE 100 MG TAB PEG/G-TUBE SCH (08:45)
[2022-12-15] MEDS: METOPROLOL TARTRATE 50 MG TAB PEG/G-TUBE SCH ×2 (08:46→19:48)
[2022-12-15] MEDS: SODIUM ZIRCONIUM CYCLOSILICATE 10 GM PACKET PO SCH (08:46)
[2022-12-15] MEDS: oxyCODONE-APAP 10-325MG 1 EACH TAB PEG/G-TUBE PRN (08:47)
[2022-12-15] MEDS: SODIUM FERRIC GLUCONAT-SUCROSE 125 MG in SODIUM CHLORIDE 0.9% 100 ML IVPB SCH (08:48)
[2022-12-15 09:08] VITALS: RESP 16
[2022-12-15 11:55] LABS: Glucose,Whole Blood 115 mg/dL (70-110)
[2022-12-15] MEDS ORDERED: FUROSEMIDE 10 MG/ML 2 ML VIAL IV ONE (12:16)
--- NOTE | 2022-12-15 12:16 | P.PN ---
Subjective Patient is seen for follow-up for hyperkalemia Status post bicarb drip Patient was maintained on lokelma daily. Potassium 4.4 today. Creatinine 0.7 Patient states she feels well and wants to go home. No significant complaints. Maintained on tube feedings which is Nepro. No urine retention. Objective - Vital Signs Vital signs: Vital Signs Temp 99.6 F 12/15/22 08:00 Pulse 77 12/15/22 08:00 Resp 16 12/15/22 08:00 BP 128/68 12/15/22 08:00 Pulse Ox 98 12/15/22 08:00 FiO2 Intake & Output 12/14/22 12/15/22 12/15/22 18:59 06:59 18:59 Intake Total 844 Output Total 300 250 Balance 544 -250 Intake: Intake, IV Titration 250 Amount Dextrose 5% in Water 1, 150 000 ml @ 50 mls/hr IV . Q23H SHAR with Sodium Bicarb (1 Meq/ml) 150 ml Rx#:[id number] Sodium Ferric Gluconat- 100 Sucrose 125 mg In Sodium Chloride 0.9% 100 ml @ 100 mls/hr IVPB DAILY SHAR Rx#:[id number] Tube Feeding 264 Other 330 Output: Urine 300 250 Other: Voiding Method External Catheter External Catheter External Catheter - Exam Awake, comfortable, in no acute distress Examination of the heart S1 and S2 Examination lungs decreased breath sounds at the bases Abdomen is soft nontender Examination lower extremity shows edema 1+ bilaterally Left upper extremity contracture - Labs CBC & Chem 7: 12/14/22 11:40 12/15/22 08:19 Labs: Abnormal Lab Results - Last 24 Hours (Table) 12/14/22 12/14/22 12/14/22 Range/Units 11:40 11:40 16:32 RBC 3.58 L (3.80-5.40) m/uL Hgb 9.1 L (11.4-16.0) gm/dL Hct 29.3 L (34.0-46.0) % RDW 18.0 H (11.5-15.5) % Plt Count 143 L (150-450) k/uL Sodium 135 L (137-145) mmol/L Potassium 5.2 H (3.5-5.1) mmol/L Chloride (98-107) mmol/L BUN 34 H (7-17) mg/dL Glucose 138 H (74-99) mg/dL POC Glucose (mg/dL) 139 H (70-110) mg/dL Calcium 7.9 L (8.4-10.2) mg/dL AST 50 H (14-36) U/L Alkaline Phosphatase 175 H (38-126) U/L Total Protein 5.9 L (6.3-8.2) g/dL Albumin 2.7 L (3.5-5.0) g/dL 12/15/22 12/15/22 12/15/22 Range/Units 00:05 08:19 11:53 RBC (3.80-5.40) m/uL Hgb (11.4-16.0) gm/dL Hct (34.0-46.0) % RDW (11.5-15.5) % Plt Count (150-450) k/uL Sodium 135 L (137-145) mmol/L Potassium (3.5-5.1) mmol/L Chloride 108 H (98-107) mmol/L BUN 30 H (7-17) mg/dL Glucose 109 H (74-99) mg/dL POC Glucose (mg/dL) 142 H 115 H (70-110) mg/dL Calcium 7.8 L (8.4-10.2) mg/dL AST (14-36) U/L Alkaline Phosphatase (38-126) U/L Total Protein (6.3-8.2) g/dL Albumin (3.5-5.0) g/dL Microbiology - Last 24 Hours (Table) 12/14/22 06:00 Urine Culture - Preliminary Urine,Suprapubic Gram Neg Bacilli Gram Neg Bacilli#2 12/13/22 12:17 Blood Culture - Preliminary Blood Assessment and Plan Assessment: 1. Hyperkalemia secondary to mild acute kidney injury and acidosis. Also concern for high potassium content in tube feeds. Potassium level 4.9 yesterday evening. No evidence of urinary retention. 2. Metabolic acidosis from IV fluids. 3. Volume overload. Status post Lasix. Improved. 4. Failure to thrive. Being fed via PEG tube. It is Nepro Plan: DC low Kalm a Continue with Nepro tube feedings Monitor periodically for urine retention Can use loop diuretics to aid with hyperkalemia if recurrent.
[2022-12-15 18:05] LABS: Glucose,Whole Blood 99 mg/dL (70-110)
[2022-12-15] MEDS: risperiDONE 1 MG TAB PEG/G-TUBE SCH (19:48)
[2022-12-15 19:58] VITALS: BP 129/80; PULSE 87; TEMP 98.7
== END 2022-12-15 20:48 | disposition home or self-care (01) | DRG 469 ==
LOC: EC 16:37 → 3SCARD 23:55 → OBSVTOIN 12-12 13:21 → 3SCARD 12-12 14:54
PROVIDERS: ADMIT Family Medicine; ATTEND Family Medicine
DX: N17.9 Acute kidney failure, unspecified (principal); E87.5 Hyperkalemia; Z93.1 Gastrostomy status; I69.354 Hemiplegia and hemiparesis following cerebral infarction affecting left non-dominant side; M10.9 Gout, unspecified; E78.5 Hyperlipidemia, unspecified; F20.0 Paranoid schizophrenia; N18.9 Chronic kidney disease, unspecified; D63.1 Anemia in chronic kidney disease; R18.8 Other ascites; R62.7 Adult failure to thrive; E87.20 Acidosis, unspecified; I12.9 Hypertensive chronic kidney disease with stage 1 through stage 4 chronic kidney disease, or unspecified chronic kidney disease; E11.22 Type 2 diabetes mellitus with diabetic chronic kidney disease; E87.70 Fluid overload, unspecified; Z79.899 Other long term (current) drug therapy; Z68.28 Body mass index [BMI] 28.0-28.9, adult; Z87.891 Personal history of nicotine dependence; Z88.5 Allergy status to narcotic agent
CPT/HCPCS: 36415; 51798; 74176; 80048; 80053; 82533; 83605; 83735; 84132; 85025; 87040; 87077; 87086; 87186; 93005; 94644; 96374; 96375; 96376; 99285

== ENCOUNTER 2022-12-30 22:51 | Emergency (ER) | payer OTHER ==
[2022-12-30 23:05] VITALS: TEMP 97.9
--- NOTE | 2022-12-31 03:22 | XR ---
EXAM: XR Abdomen, 1 View CLINICAL HISTORY: ITS.REASON XR Reason: peg tube placement TECHNIQUE: Frontal supine view of the abdomen/pelvis. COMPARISON: No relevant prior studies available. FINDINGS: Gastrointestinal tract: There is a percutaneous gastrostomy tube in place with contrast in the stomach. No dilation. Bones/joints: Unremarkable. IMPRESSION: Percutaneous gastrostomy tube in place.
--- NOTE | 2022-12-31 05:10 | ED ---
Abdominal Pain HPI <Matti Ponce - Last Filed: 12/31/22 06:55> - General Source: patient Mode of arrival: EMS <Clive Serrano - Last Filed: 01/01/23 02:56> - General Chief Complaint: Abdominal Pain Stated Complaint: Peg tube issues, swelling Time Seen by Provider: 12/30/22 23:48 - History of Present Illness Initial Comments: Patient is a 62-year-old female presenting with PEG tube issues. Her guardian at bedside states that while they're still able to feed her through the PEG tube feedings or taking an increasingly long time and he has to maneuver the PEG tube in various ways in order to get the fluid to flush through. Patient is also noted to have some swelling on the right side of her abdomen, she has been ev aluated for this before, was determined to be anasarca, she was seen by surgery during her last admission and they determined that no action is needed at this time. (Clive Serrano) - Related Data Home Medications Medication Instructions Recorded Confirmed Lacosamide [Vimpat] 100 mg PEG/G-TUBE BID 07/03/22 12/31/22 Metoprolol Tartrate [Lopressor] 50 mg PEG/G-TUBE BID 07/03/22 12/31/22 Sertraline [Zoloft] 25 mg PEG/G-TUBE DAILY 07/03/22 12/31/22 Sertraline [Zoloft] 100 mg PEG/G-TUBE DAILY 07/03/22 12/31/22 risperiDONE [RisperDAL] 1 mg PEG/G-TUBE HS 07/03/22 12/31/22 oxyCODONE HCL/ACETAMINOPHEN 1 tab PEG/G-TUBE QID PRN 09/22/22 12/31/22 [Percocet 10-325 mg] Pantoprazole [Protonix] 40 mg PEG/G-TUBE AC-BID 12/11/22 12/31/22 diphenhydrAMINE [Benadryl] 75 mg PEG/G-TUBE BID PRN 12/11/22 12/31/22 Previous Rx's Medication Instructions Recorded Divalproex Sprinkle [Depakote 250 mg PEG/G-TUBE HS 90 Days #180 10/07/22 Sprinkle] cap Divalproex Sprinkle [Depakote 500 mg PEG/G-TUBE DAILY 90 Days 10/07/22 Sprinkle] #90 cap Allergies Allergy/AdvReac Type Severity Reaction Status Date / Time hydromorphone [From Dilaudid] Allergy Swelling Verified 12/31/22 14:42 morphine Allergy Swelling Verified 12/31/22 14:42 Review of Systems ROS Other: All systems not noted in ROS Statement are negative. <Matti Ponce - Last Filed: 12/31/22 06:55> ROS Other: All systems not noted in ROS Statement are negative. <Clive Serrano - Last Filed: 01/01/23 02:56> ROS Statement: Those systems with pertinent positive or pertinent negative responses have been documented in the HPI. 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 gout, PANCREATITIS, pseudoseizures, UTI, gallstones, tremors, hx multiple brain aneursyms History of Any Multi-Drug Resistant Organisms: None Reported Date of last positivie culture/infection: 03/18/18 ESBL E.coli MDRO Source:: Urine Past Surgical History: Section, Cholecystectomy, Orthopedic Surgery Additional Past Surgical History / Comment(s): hx aneurysms- COILS AND STENTS TO BRAIN, repair tendons r/t gout BILATERAL FEET; Pain pump inserted on 04/21/22 Past Anesthesia/Blood Transfusion Reactions: No Reported Reaction Additional Past Anesthesia/Blood Transfusion Reaction / Comment(s): PT HAS HAD BLOOD TRANSFUSIONS FOR ANEMIA-NO REACTION. Past Psychological History: Anxiety, Depression, Schizophrenia Smoking Status: Former smoker Past Alcohol Use History: Abuse, Heavy Past Drug Use History: Cocaine - Past Family History Sister(s) Family Medical History: Myocardial Infarction ([place]) Father Family Medical History: Cancer Additional Family Medical History / Comment(s): throat, lung, and rectal cancer Mother Family Medical History: Myocardial Infarction ([place]) Additional Family Medical History / Comment(s): stroke <Clive Serrano - Last Filed: 01/01/23 02:56> General Exam Limitations: physical limitation General appearance: alert, in no apparent distress Head exam: Present: atraumatic, normocephalic, normal inspection Eye exam: Present: normal appearance, EOMI. Absent: scleral icterus, periorbital swelling Neck exam: Present: normal inspection Respiratory exam: Present: normal lung sounds bilaterally. Absent: respiratory distress, wheezes, rales, rhonchi, stridor Cardiovascular Exam: Present: regular rate, normal rhythm, normal heart sounds. Absent: systolic murmur, diastolic murmur, rubs, gallop, clicks GI/Abdominal exam: Present: soft. Absent: distended, tenderness, guarding, rebound, rigid Neurological exam: Present: alert, altered (baseline) Psychiatric exam: Present: normal affect, normal mood Skin exam: Present: warm, dry, intact, normal color. Absent: rash <Clive Serrano - Last Filed: 01/01/23 02:56> Course Vital Signs 12/30/22 12/31/22 12/31/22 22:59 02:05 08:24 Temperature 97.9 F Pulse Rate 72 70 72 Respiratory 16 18 18 Rate Blood Pressure 112/77 119/78 122/81 O2 Sat by Pulse 98 96 96 Oximetry Medical Decision Making <Matti Ponce - Last Filed: 12/31/22 06:55> <Clive Serrano - Last Filed: 01/01/23 02:56> - Medical Decision Making Notified that initial peg tube only had 1 port. Requested 2 port peg tube which is at bedside. We will replace the initial peg tube and repeat imaging. Patient will be discharged after. Imaging shows satisfactory peg tube placement. She will be discharged home at this time in stable condition. Diagnosis/symptom? @ -PEG tube malfunction Acute, or Chronic, or Acute on Chronic? @ -Acute Uncomplicated (without systemic symptoms) or Complicated (systemic symptoms)? @ -Uncomplicated Side effects of treatment? @ -none Exacerbation, Progression, or Severe Exacerbation] @ -no Poses a threat to life or bodily function? @ -no (Matti Ponce) Was pt. sent in by a medical professional or institution (, PA, SURGICAL ELASTIC KNITTER, urgent care, hospital, or [facility]...) When possible be specific @ -[No] Did you speak to anyone other than the patient for history (EMS, parent, family, police, friend...)? What history was obtained from this source @ -Spoke with the patient's guardian Did you review nursing and triage notes (agree or disagree)? Why? @ -[I reviewed and agree with nursing and triage notes] Were old charts reviewed (outside hosp., previous admission, EMS record, old EKG, old radiological studies, urgent care reports/EKG's, [facility] records)? Report findings @ -[No old charts were reviewed] Differential Diagnosis (chest pain, altered mental status, abdominal pain women, abdominal pain men, vaginal bleeding, weakness, fever, dyspnea, syncope, headache, dizziness, GI bleed, back pain, seizure, CVA, palpatations, mental health, musculoskeletal)? @ - EKG interpreted by me (3pts min.). @ -[As above] X-rays interpreted by me (1pt min.). @ -KUB x-ray shows proper placement of PEG tube CT interpreted by me (1pt min.). @ -[None done] U/S interpreted by me (1pt. min.). @ -[None done] What testing was considered but not performed or refused? (CT, X-rays, U/S, labs)? Why? @ -[None] What meds were considered but not given or refused? Why? @ -[None] Did you discuss the management of the patient with other professionals (professionals i.e. , PA, SURGICAL ELASTIC KNITTER, lab, RT, psych nurse, social human services assistants, senior vice president and chief information officer, teacher, chief talent officer, showcase trimmer)? Give summary @ -[No] Was smoking cessation discussed for >3mins.? @ -[No] Was critical care preformed (if so, how long)? @ -[No] Were there social determinants of health that impacted care today? How? ( Homelessness, low income, unemployed, alcoholism, drug addiction, transportation, low edu. Level, literacy, decrease access to med. care, [facility]pc, rehab)? @ -[No] Was there de-escalation of care discussed even if they declined (Discuss DNR or withdrawal of care, Hospice)? DNR status @ -[No] What co-morbidities impacted this encounter? (DM, HTN, Smoking, COPD, CAD, Cancer, CVA, ARF, Chemo, Hep., AIDS, mental health diagnosis, sleep apnea, morbid obesity)? @ -[None] Was patient admitted / discharged? Hospital course, mention meds given and route, prescriptions, significant lab abnormalities, going to OR and other pertinent info. @ -62-year-old female presenting with PEG tube malfunction. Feeds are taking an increasingly long time. PEG tube is replaced here in the ER. Patient was signed out to my attending while awaiting report for KUB confirming proper jl cement. Undiagnosed new problem with uncertain prognosis? @ -[No] Drug Therapy requiring intensive monitoring for toxicity (Heparin, Nitro, Ins ulin, Cardizem)? @ -[No] Were any procedures done? @ -PEG tube replacement (Clive Serrano) Disposition <Matti Ponce - Last Filed: 12/31/22 06:55> Is patient prescribed a controlled substance at d/c from ED?: No <Clive Serrano - Last Filed: 01/01/23 02:56> Clinical Impression: PEG tube malfunction Disposition: HOME SELF-CARE Condition: Good Instructions (If sedation given, give patient instructions): How to Use and Care for Your PEG Tube (ED) Additional Instructions: Follow-up with PCP and surgeon. Report back to ER with any new or worsening symptoms. Referrals: Mohit Harley MD [Primary Care Provider] - 1-2 days Dyllan Herrera MD [STAFF PHYSICIAN] - 1-2 days
[2022-12-31 05:47] VITALS: RESP 18
--- NOTE | 2022-12-31 06:11 | XR ---
EXAMINATION TYPE: XR KUB DATE OF EXAM: 12/31/2022 4:51 AM CLINICAL HISTORY: PEG tube placement. TECHNIQUE: Single supine KUB image of the abdomen is obtained after injection of 50 cc of Isovue-370. COMPARISON: Prior abdominal x-ray earlier today FINDINGS: Overlying PEG tube redemonstrated. There is contrast opacification of stomach along with joelle wel loops in the right abdomen and pelvis. Lung bases are clear. Pelvic deformity partially imaged. R adiodense device redemonstrated overlying the left lower quadrant. IMPRESSION: As above. Successful PEG tube replacement.
--- NOTE | 2022-12-31 06:53 | XR ---
EXAMINATION TYPE: XR KUB portable DATE OF EXAM: 12/31/2022 6:35 AM CLINICAL HISTORY: PEG tube replacement. TECHNIQUE: Single supine KUB image of the abdomen is obtained after reinjection of 50 cc of Isovue-37 0. COMPARISON: Abdominal x-ray earlier today. FINDINGS: Overlying PEG tube redemonstrated. There is contrast opacification of stomach along with joelle wel loops throughout the abdomen and pelvis. Lung bases are clear. Pelvic deformity partially imaged. Radiodense device redemonstrated overlying the left lower quadrant. IMPRESSION: As above. Successful PEG tube replacement once again.
[2022-12-31 08:30] VITALS: BP 122/81; PULSE 72
== END 2022-12-31 08:30 | disposition home or self-care (01) ==
LOC: EC 22:51
DX: K94.23 Gastrostomy malfunction (principal); I10 Essential (primary) hypertension; M19.90 Unspecified osteoarthritis, unspecified site; E78.5 Hyperlipidemia, unspecified; F41.9 Anxiety disorder, unspecified; F32.A Depression, unspecified; Z87.891 Personal history of nicotine dependence; Z79.899 Other long term (current) drug therapy; Z88.5 Allergy status to narcotic agent; Z88.8 Allergy status to other drugs, medicaments and biological substances
CPT/HCPCS: 74018; 99285; Q9967

== ENCOUNTER 2022-12-31 11:11 | Emergency (ER) | payer OTHER ==
--- NOTE | 2022-12-31 15:05 | ED ---
General Adult HPI - General Chief complaint: Recheck/Abnormal Lab/Rx Stated complaint: Peg tube placement Time Seen by Provider: 12/31/22 11:21 Source: patient, RN notes reviewed, Caregiver Mode of arrival: EMS Limitations: physical limitation - History of Present Illness Initial comments: Patient is a pleasant 62-year-old female presenting to the emergency Department with problems with PEG tube. Patient is a poor historian. Patient reportedly needs PEG tube for feeding. Son later arrives and states the PEG tube that was placed earlier does not work for them as they do need one with a locking device on it. - Related Data Home Medications Medication Instructions Recorded Confirmed Lacosamide [Vimpat] 100 mg PEG/G-TUBE BID 07/03/22 12/31/22 Metoprolol Tartrate [Lopressor] 50 mg PEG/G-TUBE BID 07/03/22 12/31/22 Sertraline [Zoloft] 25 mg PEG/G-TUBE DAILY 07/03/22 12/31/22 Sertraline [Zoloft] 100 mg PEG/G-TUBE DAILY 07/03/22 12/31/22 risperiDONE [RisperDAL] 1 mg PEG/G-TUBE HS 07/03/22 12/31/22 oxyCODONE HCL/ACETAMINOPHEN 1 tab PEG/G-TUBE QID PRN 09/22/22 12/31/22 [Percocet 10-325 mg] Pantoprazole [Protonix] 40 mg PEG/G-TUBE AC-BID 12/11/22 12/31/22 diphenhydrAMINE [Benadryl] 75 mg PEG/G-TUBE BID PRN 12/11/22 12/31/22 Previous Rx's Medication Instructions Recorded Divalproex Sprinkle [Depakote 250 mg PEG/G-TUBE HS 90 Days #180 10/07/22 Sprinkle] cap Divalproex Sprinkle [Depakote 500 mg PEG/G-TUBE DAILY 90 Days 10/07/22 Sprinkle] #90 cap Allergies Allergy/AdvReac Type Severity Reaction Status Date / Time hydromorphone [From Dilaudid] Allergy Swelling Verified 12/31/22 14:42 morphine Allergy Swelling Verified 12/31/22 14:42 Review of Systems ROS Statement: Those systems with pertinent positive or pertinent negative responses have been documented in the HPI. ROS Other: All systems not noted in ROS Statement are negative. Constitutional: Denies: fever Eyes: Denies: eye pain ENT: Denies: ear pain Respiratory: Denies: cough Cardiovascular: Denies: chest pain Endocrine: Denies: fatigue Gastrointestinal: Denies: abdominal pain Genitourinary: Denies: dysuria Past Medical History Past Medical History: CVA/TIA, Hyperlipidemia, Hypertension, Osteoarthritis (OA) Additional Past Medical History / Comment(s): ANEMIA, CVA WITH L ARM WEAKNESS AND bilateral LEG WEAKNESS, hx. gout, PANCREATITIS, pseudoseizures, UTI, gallstones, tremors, hx multiple brain aneursyms History of Any Multi-Drug Resistant Organisms: None Reported Date of last positivie culture/infection: 03/18/18 ESBL E.coli MDRO Source:: Urine Past Surgical History: Section, Cholecystectomy, Orthopedic Surgery Additional Past Surgical History / Comment(s): hx aneurysms- COILS AND STENTS TO BRAIN, repair tendons r/t gout BILATERAL FEET; Pain pump inserted on 04/21/22 Past Anesthesia/Blood Transfusion Reactions: No Reported Reaction Additional Past Anesthesia/Blood Transfusion Reaction / Comment(s): PT HAS HAD BLOOD TRANSFUSIONS FOR ANEMIA-NO REACTION. Past Psychological History: Anxiety, Depression, Schizophrenia Smoking Status: Former smoker Past Alcohol Use History: Abuse, Heavy Past Drug Use History: Cocaine - Past Family History Sister(s) Family Medical History: Myocardial Infarction ([place]) Father Family Medical History: Cancer Additional Family Medical History / Comment(s): throat, lung, and rectal cancer Mother Family Medical History: Myocardial Infarction ([place]) Additional Family Medical History / Comment(s): stroke General Exam Limitations: physical limitation General appearance: alert, in no apparent distress Head exam: Present: atraumatic Eye exam: Present: normal appearance Respiratory exam: Present: normal lung sounds bilaterally Cardiovascular Exam: Present: regular rate, normal rhythm GI/Abdominal exam: Present: soft, other (Feeding tube in place.). Absent: tenderness Extremities exam: Present: other (Contracted) Neurological exam: Present: alert Psychiatric exam: Present: normal affect, normal mood Skin exam: Present: normal color Course Vital Signs 12/31/22 11:21 Pulse Rate 70 Respiratory 18 Rate Blood Pressure 177/104 O2 Sat by Pulse 100 Oximetry Procedures - Feeding Tube Replacement Reason for Replacement: not functioning/damaged Initial Tube Inserted: greater than 2 weeks Use of Tube: feedings only Insertion Site Prior to Procedure: clean Tube Used for Reinsertion: other Balloon Size (mls): 10 Verification of Placement: auscultation, other (Flushed wall by nursing staff) Tube Secured by: tape/dressing, G-tube attachment device Patient Tolerated Procedure: well, no complications Medical Decision Making - Medical Decision Making Was pt. sent in by a medical professional or institution (, PA, HEAD ESTHETICIAN, urgent care, hospital, or [facility]...) When possible be specific @ -No Did you speak to anyone other than the patient for history (EMS, parent, family, police, friend...)? What history was obtained from this source @ -Son is present and provides majority of history is patient is a poor historian Did you review nursing and triage notes (agree or disagree)? Why? @ -I reviewed and agree with nursing and triage notes Were old charts reviewed (outside hosp., previous admission, EMS record, old EKG, old radiological studies, urgent care reports/EKG's, [facility] records)? Report findings @ -No old charts were reviewed Differential Diagnosis (chest pain, altered mental status, abdominal pain women, abdominal pain men, vaginal bleeding, weakness, fever, dyspnea, syncope, headache, dizziness, GI bleed, back pain, seizure, CVA, palpatations, mental health)? @ -Differential Abdominal Pain Women: Appendicitis, Cholecystitis, diverticulosis, ischemic bowel, pancreatitis, hepatitis, UTI, gastroenteritis, AAA, incarcerated hernia, bowel obstruction, constipation, inflammatory bowel, hepatitis, peptic ulcer disease, splenic infarction, perforated viscus, vulvitis, ovarian torsion, PID, kidney stone, placenta abruption, this is not meant to be an all-inclusive list EKG interpreted by me (3pts min.). @ -As above X-rays interpreted by me (1pt min.). @ -None done CT interpreted by me (1pt min.). @ -None done U/S interpreted by me (1pt. min.). @ -None done What testing was considered but not performed or refused? (CT, X-rays, U/S, lab s)? Why? @ -None What meds were considered but not given or refused? Why? @ -None Did you discuss the management of the patient with other professionals (professionals i.e. , PA, HEAD ESTHETICIAN, lab, RT, psych nurse, social security benefits interviewer, taker off braker machine, teacher, privacy officer, correctional case records supervisor)? Give summary @ -No Was smoking cessation discussed for >3mins.? @ -No Was critical care preformed (if so, how long)? @ -No Were there social determinants of health that impacted care today? How? (Homelessness, low income, unemployed, alcoholism, drug addiction, transportation, low edu. Level, literacy, decrease access to med. care, nursing home, rehab)? @ -No Was there de-escalation of care discussed even if they declined (Discuss DNR or withdrawal of care, Hospice)? DNR status @ -No What co-morbidities impacted this encounter? (DM, HTN, Smoking, COPD, CAD, Cancer, CVA, ARF, Chemo, Hep., AIDS, mental health diagnosis, sleep apnea, morbid obesity)? @ -Patient has chronic feeding tube needed to provide her feedings Was patient admitted / discharged? Hospital course, mention meds given and route, prescriptions, significant lab abnormalities, going to OR and other pertinent info. @ -Patient had PEG tube change secondary to family not being able to use the first one appears second one does have stopped valve on this. Patient will follow-up with surgeon for reevaluation and possible definitive change of PEG tube. Undiagnosed new problem with uncertain prognosis? @ -No Drug Therapy requiring intensive monitoring for toxicity (Heparin, Nitro, Insulin, Cardizem)? @ -No Were any procedures done? @ -PEG tube was replaced, see above Diagnosis/symptom? @ -(PEG tube malfunction Acute, or Chronic, or Acute on Chronic? @ -Acute on chronic Uncomplicated (without systemic symptoms) or Complicated (systemic symptoms)? @ -default Side effects of treatment? @ -No Exacerbation, Progression, or Severe Exacerbation? @ -No Poses a threat to life or bodily function? How? (Chest pain, [place], [place], pneumonia, PE, COPD, DKA, ARF, appy, cholecystitis, CVA, Diverticulitis, Homicidal, Suicidal, threat to staff... and all critical care pts) @ -No Disposition Clinical Impression: PEG tube malfunction Disposition: HOME SELF-CARE Condition: Stable Instructions (If sedation given, give patient instructions): PEG Tube Insertion (DC), How to Use and Care for Your PEG Tube (ED) Additional Instructions: May use the PEG tube. Please do follow-up with Dr. Herrera as directed. Please also follow-up with primary care physician in the next couple days for recheck. Return for feeding tube problems, pain, vomiting, worsening symptoms or other concerns. Is patient prescribed a controlled substance at d/c from ED?: No Referrals: Mohit Harley MD [Primary Care Provider] - 1-2 days [facility], [NON-STAFF] - [facility], [REFERRING] - Dyllan Herrera MD [STAFF PHYSICIAN] - 01/13/23 3:30 pm Time of Disposition: 15:04
[2022-12-31 15:37] VITALS: BP 149/89; PULSE 71; RESP 16
== END 2022-12-31 16:30 | disposition home or self-care (01) ==
LOC: EC 11:11
DX: K94.23 Gastrostomy malfunction (principal); E78.5 Hyperlipidemia, unspecified; I10 Essential (primary) hypertension; M19.90 Unspecified osteoarthritis, unspecified site; F41.9 Anxiety disorder, unspecified; F32.A Depression, unspecified; Z86.73 Personal history of transient ischemic attack (TIA), and cerebral infarction without residual deficits; Z88.5 Allergy status to narcotic agent; Z87.891 Personal history of nicotine dependence; Z79.899 Other long term (current) drug therapy
CPT/HCPCS: 43762; 99284

== ENCOUNTER 2023-01-09 22:14 | Emergency (ER) | payer OTHER ==
--- NOTE | 2023-01-09 22:22 | ED ---
General Adult HPI - General Stated complaint: FEEDING TUBE BLOCKAGE Time Seen by Provider: 01/09/23 22:17 - History of Present Illness Initial comments: Dictation was produced using [employer] dictation software. please excuse any grammatical, word or spelling errors. Chief Complaint: 62-year-old female presents with PEG tube dysfunction History of Present Illness: Patient is a 62-year-old female she presents emergency department for PEG tube dysfunction. Initial PEG tube placement according to chart review was placed 09/26/2022. According to EMS who provides history present illness PEG tube has not been flowing correctly. The ROS documented in this emergency department record has been reviewed and confirmed by me. Those systems with pertinent positive or negative responses have been documented in the HPI. All other systems are other negative and/or noncontributory. - Related Data Home Medications Medication Instructions Recorded Confirmed Lacosamide [Vimpat] 100 mg PEG/G-TUBE BID 07/03/22 12/31/22 Metoprolol Tartrate [Lopressor] 50 mg PEG/G-TUBE BID 07/03/22 12/31/22 Sertraline [Zoloft] 25 mg PEG/G-TUBE DAILY 07/03/22 12/31/22 Sertraline [Zoloft] 100 mg PEG/G-TUBE DAILY 07/03/22 12/31/22 risperiDONE [RisperDAL] 1 mg PEG/G-TUBE HS 07/03/22 12/31/22 oxyCODONE HCL/ACETAMINOPHEN 1 tab PEG/G-TUBE QID PRN 09/22/22 12/31/22 [Percocet 10-325 mg] Pantoprazole [Protonix] 40 mg PEG/G-TUBE AC-BID 12/11/22 12/31/22 diphenhydrAMINE [Benadryl] 75 mg PEG/G-TUBE BID PRN 12/11/22 12/31/22 Previous Rx's Medication Instructions Recorded Divalproex Sprinkle [Depakote 250 mg PEG/G-TUBE HS 90 Days #180 10/07/22 Sprinkle] cap Divalproex Sprinkle [Depakote 500 mg PEG/G-TUBE DAILY 90 Days 10/07/22 Sprinkle] #90 cap Allergies Allergy/AdvReac Type Severity Reaction Status Date / Time hydromorphone [From Dilaudid] Allergy Swelling Verified 12/31/22 14:42 morphine Allergy Swelling Verified 12/31/22 14:42 Review of Systems ROS Statement: Those systems with pertinent positive or pertinent negative responses have been documented in the HPI. ROS Other: All systems not noted in ROS Statement are negative. 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 gout, PANCREATITIS, pseudoseizures, UTI, gallstones, tremors, hx multiple brain aneursyms History of Any Multi-Drug Resistant Organisms: None Reported Date of last positivie culture/infection: 03/18/18 ESBL E.coli MDRO Source:: Urine Past Surgical History: Section, Cholecystectomy, Orthopedic Surgery Additional Past Surgical History / Comment(s): hx aneurysms- COILS AND STENTS TO BRAIN, repair tendons r/t gout BILATERAL FEET; Pain pump inserted on 04/21/22 Past Anesthesia/Blood Transfusion Reactions: No Reported Reaction Additional Past Anesthesia/Blood Transfusion Reaction / Comment(s): PT HAS HAD BLOOD TRANSFUSIONS FOR ANEMIA-NO REACTION. Past Psychological History: Anxiety, Depression, Schizophrenia Smoking Status: Former smoker Past Alcohol Use History: Abuse, Heavy Past Drug Use History: Cocaine - Past Family History Sister(s) Family Medical History: Myocardial Infarction ([place]) Father Family Medical History: Cancer Additional Family Medical History / Comment(s): throat, lung, and rectal cancer Mother Family Medical History: Myocardial Infarction ([place]) Additional Family Medical History / Comment(s): stroke General Exam - General Exam Comments Initial Comments: PHYSICAL EXAM: General Impression: not in acute distress HEENT: Normocephalic atraumatic, extra-ocular movements intact, pupils equal and reactive to light bilaterally, mucous membranes moist. Cardiovascular: Heart regular rate and rhythm Chest: Able to complete full sentences, no retractions, no tachypnea Abdomen: abdomen soft, non-tender, non-distended, no organomegaly Musculoskeletal: Pulses present and equal in all extremities, no peripheral edema, extremity contractures Motor: no focal deficits noted Neurological: CN II-XII grossly intact, no focal motor or sensory deficits noted Skin: Intact with no visualized rashes Psych: Normal affect and mood Course Vital Signs 01/09/23 22:18 Temperature 98.7 F Pulse Rate 70 Respiratory 18 Rate Blood Pressure 151/82 O2 Sat by Pulse 96 Oximetry Medical Decision Making - Medical Decision Making Was pt. sent in by a medical professional or institution (WARREN Blanca, POLICY SERVICE COORDINATOR, urgent care, hospital, or long term...) When possible be specific @ -No Did you speak to anyone other than the patient for history (EMS, parent, family, police, friend...)? What history was obtained from this source @ -No Did you review nursing and triage notes (agree or disagree)? Why? @ -I reviewed and agree with nursing and triage notes Were old charts reviewed (outside hosp., previous admission, EMS record, old EKG, old radiological studies, urgent care reports/EKG's, long term records)? Report findings @ -Surgery notes were reviewed patient had initial PEG tube placement in September Differential Diagnosis (chest pain, altered mental status, abdominal pain women, abdominal pain men, vaginal bleeding, musculoskeletal, weakness, fever, dyspnea, syncope, headache, dizziness, GI bleed, back pain, seizure, CVA, palpatations, mental health)? @ -not applicable EKG interpreted by me (3pts min.). @ -None done X-rays interpreted by me (1pt min.). @ -None done CT interpreted by me (1pt min.). @ -None done U/S interpreted by me (1pt. min.). @ -None done What testing was considered but not performed or refused? (CT, X-rays, U/S, labs)? Why? @ -None What meds were considered but not given or refused? Why? @ -None Did you discuss the management of the patient with other professionals (professionals i.e. WARREN Blanca, POLICY SERVICE COORDINATOR, lab, RT, psych nurse, social insurance analyst, career based intervention coordinator, teacher, security public safety officer, corrections caseworker)? Give summary @ -No Was smoking cessation discussed for >3mins.? @ -No Was critical care preformed (if so, how long)? @ -No Were there social determinants of health that impacted care today? How? (Homelessness, low income, unemployed, alcoholism, drug addiction, transportation, low edu. Level, literacy, decrease access to med. care, custodial, rehab)? @ -No Was there de-escalation of care discussed even if they declined (Discuss DNR or withdrawal of care, Hospice)? DNR status @ -No What co-morbidities impacted this encounter? (DM, HTN, Smoking, COPD, CAD, Cancer, CVA, ARF, Chemo, Hep., AIDS, mental health diagnosis, sleep apnea, morbid obesity)? @ -None Was patient admitted / discharged? Hospital course, mention meds given and route, prescriptions, significant lab abnormalities, going to OR and other pertinent info. @ -62-year-old female presents with PEG tube malfunction. Vital signs are stable. Patient at baseline. Family member at the bedside states that patient is baseline. Also reports that she wasn't able to get her medicine and 2 feedings because of the malfunction. Obstruction was resolved by nurse. Feeding tube now flushing very well. Patient discharge back to home Undiagnosed new problem with uncertain prognosis? @ -No Drug Therapy requiring intensive monitoring for toxicity (Heparin, Nitro, Insulin, Cardizem)? @ -No Were any procedures done? @ -No Diagnosis/symptom? Acute, or Chronic, or Acute on Chronic? Uncomplicated (without systemic symptoms) or Complicated (systemic symptoms)? @ -1. PEG tube malfunction Side effects of treatment? @ -No Exacerbation, Progression, or Severe Exacerbation? @ -No Poses a threat to life or bodily function? How? (Chest pain, [place], [place], pneumonia, PE, COPD, DKA, ARF, appy, cholecystitis, CVA, Diverticulitis, Homicidal, Suicidal, threat to staff... and all critical care pts) @ -yes Disposition Clinical Impression: PEG tube malfunction Disposition: HOME SELF-CARE Condition: Good Instructions (If sedation given, give patient instructions): How to Use and Care for Your PEG Tube (ED) Is patient prescribed a controlled substance at d/c from ED?: No Referrals: Mohit Harley MD [Primary Care Provider] - 1-2 days Time of Disposition: 23:28
[2023-01-09 22:37] VITALS: RESP 18; TEMP 98.7
[2023-01-10 00:36] VITALS: BP 162/90; PULSE 68
== END 2023-01-10 00:38 | disposition home or self-care (01) ==
LOC: EC 22:14
DX: K94.23 Gastrostomy malfunction (principal); Z86.73 Personal history of transient ischemic attack (TIA), and cerebral infarction without residual deficits; I10 Essential (primary) hypertension; M19.90 Unspecified osteoarthritis, unspecified site; F41.9 Anxiety disorder, unspecified; F32.A Depression, unspecified; F14.90 Cocaine use, unspecified, uncomplicated; Z87.891 Personal history of nicotine dependence; Z88.5 Allergy status to narcotic agent; Z88.6 Allergy status to analgesic agent; Z79.899 Other long term (current) drug therapy
CPT/HCPCS: 99284

== ENCOUNTER 2023-02-17 23:16 | Inpatient (IN) | payer OTHER ==
[2023-02-17] MEDS ORDERED: IPRATROPIUM-ALBUTEROL 3 ML NEB INHALATION STA (23:32)
[2023-02-17] MEDS ORDERED: SODIUM CHLORIDE 0.9% 1,000 ML IV ONE (23:35)
--- NOTE | 2023-02-18 01:08 | XR ---
EXAM: XR Chest, 1 View CLINICAL HISTORY: ITS.REASON XR Reason: altered mental status TECHNIQUE: Frontal view of the chest. COMPARISON: No relevant prior studies available. FINDINGS: Lungs: Right middle and lower lobe infiltrate likely of infectious or inflammatory etiology. Central pulmonary vascular congestion. Pleural space: Unremarkable. No pneumothorax. Heart: Cardiomegaly. Mediastinum: Unremarkable. Bones/joints: Unremarkable. IMPRESSION: Right mid lower lung pneumonia
--- NOTE | 2023-02-18 01:36 | ED ---
General Adult HPI - General Chief complaint: Altered Mental Status Stated complaint: Altered mental status Time Seen by Provider: 02/17/23 23:21 Source: patient, RN notes reviewed, old records reviewed Mode of arrival: EMS Limitations: no limitations - History of Present Illness Initial comments: 62-year-old female presenting with fever, confusion, hypoxia. History is somewhat limited. Patient is bedbound, feeding tube. She is contracted and remains on her right side. She has history of decubitus ulcer. She had been hypoxic by paramedics requiring supple mental oxygen. Blood pressure stable. Afebrile upon arrival. - Related Data Home Medications Medication Instructions Recorded Confirmed Lacosamide [Vimpat] 100 mg PEG/G-TUBE BID 07/03/22 02/18/23 Sertraline [Zoloft] 25 mg PEG/G-TUBE DAILY 07/03/22 02/18/23 Sertraline [Zoloft] 100 mg PEG/G-TUBE DAILY 07/03/22 02/18/23 risperiDONE [RisperDAL] 1 mg PEG/G-TUBE HS 07/03/22 02/18/23 Ascorbic Acid [Vitamin C] 500 mg PEG/G-TUBE DAILY 02/18/23 02/18/23 Metoprolol Tartrate [Lopressor] 25 mg PEG/G-TUBE BID 02/18/23 02/18/23 Ondansetron Odt [Zofran Odt] 4 mg PO Q8HR PRN 02/18/23 02/18/23 haloperidoL [Haldol] 2.5 mg PEG/G-TUBE Q12H 02/18/23 02/18/23 Previous Rx's Medication Instructions Recorded Divalproex Sprinkle [Depakote 250 mg PEG/G-TUBE HS 90 Days #180 10/07/22 Sprinkle] cap Divalproex Sprinkle [Depakote 500 mg PEG/G-TUBE DAILY 90 Days 10/07/22 Sprinkle] #90 cap Apixaban [Eliquis Starter Pack 5 - 10 mg PO DIRECTED 30 Days 02/23/23 (for VTE)] #1 each Allergies Allergy/AdvReac Type Severity Reaction Status Date / Time hydromorphone [From Dilaudid] Allergy Swelling Verified 02/18/23 07:12 morphine Allergy Swelling Verified 02/18/23 07:12 Review of Systems ROS Statement: Those systems with pertinent positive or pertinent negative responses have been documented in the HPI. ROS Other: All systems not noted in ROS Statement are negative. 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 gout, PANCREATITIS, pseudoseizures, UTI, gallstones, tremors, hx multiple brain aneursyms History of Any Multi-Drug Resistant Organisms: ESBL, MRSA Date of last positivie culture/infection: 02/03/23-MRSA; 03/18/18 ESBL MDRO Source:: Right Lateral Calf- MRSA; Urine-ESBL Past Surgical History: Section, Cholecystectomy, Orthopedic Surgery Additional Past Surgical History / Comment(s): hx aneurysms- COILS AND STENTS TO BRAIN, repair tendons r/t gout BILATERAL FEET; Pain pump inserted on 04/21/22 Past Anesthesia/Blood Transfusion Reactions: No Reported Reaction Additional Past Anesthesia/Blood Transfusion Reaction / Comment(s): PT HAS HAD BLOOD TRANSFUSIONS FOR ANEMIA-NO REACTION. Past Psychological History: Anxiety, Depression, Schizophrenia Smoking Status: Former smoker Past Alcohol Use History: Abuse, Heavy Past Drug Use History: Cocaine - Past Family History Sister(s) Family Medical History: Myocardial Infarction ([place]) Father Family Medical History: Cancer Additional Family Medical History / Comment(s): throat, lung, and rectal cancer Mother Family Medical History: Myocardial Infarction ([place]) Additional Family Medical History / Comment(s): stroke General Exam Limitations: no limitations General appearance: alert, in no apparent distress Head exam: Present: atraumatic, normocephalic Eye exam: Present: normal appearance, PERRL ENT exam: Present: mucous membranes dry Neck exam: Present: normal inspection. Absent: tenderness, meningismus Respiratory exam: Present: respiratory distress, rhonchi, decreased breath sounds Cardiovascular Exam: Present: regular rate, normal rhythm GI/Abdominal exam: Present: soft. Absent: distended, tenderness, guarding Extremities exam: Present: normal capillary refill Neurological exam: Present: alert Skin exam: Present: warm, dry, intact Course Vital Signs 02/17/23 02/17/23 02/17/23 23:28 23:36 23:39 Temperature 98.8 F Pulse Rate 98 88 Respiratory 18 Rate Blood Pressure 100/61 O2 Sat by Pulse 80 L 99 Oximetry 02/17/23 02/18/23 02/18/23 23:48 05:15 06:00 Temperature Pulse Rate 93 88 84 Respiratory 16 16 Rate Blood Pressure 128/74 96/68 O2 Sat by Pulse 97 98 Oximetry 02/18/23 02/18/23 02/18/23 08:00 09:00 11:00 Temperature 98 F Pulse Rate 94 88 Respiratory 20 18 Rate Blood Pressure 117/78 115/70 O2 Sat by Pulse 99 99 Oximetry 02/18/23 02/18/23 02/18/23 12:00 13:00 14:00 Temperature Pulse Rate 84 86 85 Respiratory 18 18 16 Rate Blood Pressure 104/74 110/76 107/66 O2 Sat by Pulse 99 100 99 Oximetry 02/18/23 15:00 Temperature Pulse Rate 86 Respiratory 20 Rate Blood Pressure 99/75 O2 Sat by Pulse 96 Oximetry Medical Decision Making - Medical Decision Making Was pt. sent in by a medical professional or institution (, PA, STEEL FLOOR PAN PLACING SUPERVISOR, urgent care, hospital, or [facility]...) When possible be specific @ -No Did you speak to anyone other than the patient for history (EMS, parent, family, police, friend...)? What history was obtained from this source @ -Paramedics Did you review nursing and triage notes (agree or disagree)? Why? @ -I reviewed and agree with nursing and triage notes Were old charts reviewed (outside hosp., previous admission, EMS record, old EKG, old radiological studies, urgent care reports/EKG's, [facility] records)? Report findings @ -No old charts were reviewed Differential Diagnosis (chest pain, altered mental status, abdominal pain women, abdominal pain men, vaginal bleeding, weakness, fever, dyspnea, syncope, headache, dizziness, GI bleed, back pain, seizure, CVA, palpatations, mental health, musculoskeletal)? @ -Differential Altered Mental Status: Hypoglycemia, DKA, hypercapnia, ETOH, overdose, CO poisoning, trauma, myxedema coma, HTN encephalopathy, infection, encephalitis, psychosis, intercranial hemorrhage, hepatic encephalopathy, meningitis, CVA, this is not meant to be an all-inclusive list EKG interpreted by me (3pts min.). @ -[Sinus rhythm rate of 85, ME interval 158, QRS duration 73, QTC [address] segment elevation. X-rays interpreted by me (1pt min.). @ -Pneumonia on chest x-ray, right lung field CT interpreted by me (1pt min.). @ -None done U/S interpreted by me (1pt. min.). @ -None done What testing was considered but not performed or refused? (CT, X-rays, U/S, labs)? Why? @ -None What meds were considered but not given or refused? Why? @ -None Did you discuss the management of the patient with other professionals (professionals i.e. DrSana, PA, STEEL FLOOR PAN PLACING SUPERVISOR, lab, RT, psych nurse, social work supervisor, floriculture professor, teacher, collection officer, residential case manager)? Give summary @ -[Dr. Harley Was smoking cessation discussed for >3mins.? @ -No Was critical care preformed (if so, how long)? @ -No Were there social determinants of health that impacted care today? How? (Homelessness, low income, unemployed, alcoholism, drug addiction, transportation, low edu. Level, literacy, decrease access to med. care, alf, rehab)? @ -No Was there de-escalation of care discussed even if they declined (Discuss DNR or withdrawal of care, Hospice)? DNR status @ -No What co-morbidities impacted this encounter? (DM, HTN, Smoking, COPD, CAD, Cancer, CVA, ARF, Chemo, Hep., AIDS, mental health diagnosis, sleep apnea, morbid obesity)? @ -[Recurrent pneumonia Was patient admitted / discharged? Hospital course, mention meds given and route, prescriptions, significant lab abnormalities, going to OR and other pertinent info. @ -[62-year-old female with weakness, confusion, fever and hypoxia. Patient does have pneumonia on x-ray. Given IV antibiotics, blood cultures obtained. Her laboratory testing is relatively stable for this patient. She will be admitted to Dr. Harley who is aware. Undiagnosed new problem with uncertain prognosis? @ -No Drug Therapy requiring intensive monitoring for toxicity (Heparin, Nitro, Insulin, Cardizem)? @ -No Were any procedures done? @ -No Diagnosis/symptom? @Pneumonia Acute, or Chronic, or Acute on Chronic? @ -[acute Uncomplicated (without systemic symptoms) or Complicated (systemic symptoms)? @ -default Side effects of treatment? @ -No Exacerbation, Progression, or Severe Exacerbation? @ -No Poses a threat to life or bodily function? How? (Chest pain, [place], [place], pneumonia, PE, COPD, DKA, ARF, appy, cholecystitis, CVA, Diverticulitis, Homicidal, Suicidal, threat to staff... and all critical care pts) @ -[yes, sepsis, hypoxia - Lab Data Result diagrams: 02/23/23 07:15 02/23/23 07:15 Lab Results 02/18/23 02/18/23 02/18/23 Range/Units 00:50 01:10 01:10 WBC 7.5 (3.8-10.6) k/uL RBC 3.94 (3.80-5.40) m/uL Hgb 10.5 L (11.4-16.0) gm/dL Hct 32.5 L (34.0-46.0) % MCV 82.4 (80.0-100.0) fL MCH 26.5 (25.0-35.0) pg MCHC 32.2 (31.0-37.0) g/dL RDW 15.8 H (11.5-15.5) % Plt Count 125 L (150-450) k/uL MPV 8.3 Neutrophils % 65 % Lymphocytes % 27 % Monocytes % 5 % Eosinophils % 1 % Basophils % 0 % Neutrophils # 4.9 (1.3-7.7) k/uL Lymphocytes # 2.0 (1.0-4.8) k/uL Monocytes # 0.4 (0-1.0) k/uL Eosinophils # 0.1 (0-0.7) k/uL Basophils # 0.0 (0-0.2) k/uL PT 10.4 (9.0-12.0) sec INR 1.0 (<1.2) APTT 21.8 L (22.0-30.0) sec Sodium (137-145) mmol/L Potassium (3.5-5.1) mmol/L Chloride (98-107) mmol/L Carbon Dioxide (22-30) mmol/L Anion Gap mmol/L BUN (7-17) mg/dL Creatinine (0.52-1.04) mg/dL Est GFR (CKD-EPI)AfAm (>60 ml/min/1.73 sqM) Est GFR (CKD-EPI)NonAf (>60 ml/min/1.73 sqM) Glucose (74-99) mg/dL Plasma Lactic Acid Shen (0.7-2.0) mmol/L Calcium (8.4-10.2) mg/dL Total Bilirubin (0.2-1.3) mg/dL AST (14-36) U/L ALT (4-34) U/L Alkaline Phosphatase (38-126) U/L NT-Pro-B Natriuret Pep pg/mL Total Protein (6.3-8.2) g/dL Albumin (3.5-5.0) g/dL Influenza Type A (PCR) Not Detected (Not Detectd) Influenza Type B (PCR) Not Detected (Not Detectd) RSV (PCR) Not Detected (Not Detectd) SARS-CoV-2 (PCR) Not Detected (Not Detectd) 02/18/23 02/18/23 Range/Units 01:10 01:10 WBC (3.8-10.6) k/uL RBC (3.80-5.40) m/uL Hgb (11.4-16.0) gm/dL Hct (34.0-46.0) % MCV (80.0-100.0) fL MCH (25.0-35.0) pg MCHC (31.0-37.0) g/dL RDW (11.5-15.5) % Plt Count (150-450) k/uL MPV Neutrophils % % Lymphocytes % % Monocytes % % Eosinophils % % Basophils % % Neutrophils # (1.3-7.7) k/uL Lymphocytes # (1.0-4.8) k/uL Monocytes # (0-1.0) k/uL Eosinophils # (0-0.7) k/uL Basophils # (0-0.2) k/uL PT (9.0-12.0) sec INR (<1.2) APTT (22.0-30.0) sec Sodium 133 L (137-145) mmol/L Potassium 4.9 (3.5-5.1) mmol/L Chloride 106 (98-107) mmol/L Carbon Dioxide 20 L (22-30) mmol/L Anion Gap 7 mmol/L BUN 59 H (7-17) mg/dL Creatinine 0.96 (0.52-1.04) mg/dL Est GFR (CKD-EPI)AfAm 72 (>60 ml/min/1.73 sqM) Est GFR (CKD-EPI)NonAf 63 (>60 ml/min/1.73 sqM) Glucose 83 (74-99) mg/dL Plasma Lactic Acid Shen 1.3 (0.7-2.0) mmol/L Calcium 8.4 (8.4-10.2) mg/dL Total Bilirubin 0.5 (0.2-1.3) mg/dL AST 53 H (14-36) U/L ALT 33 (4-34) U/L Alkaline Phosphatase 140 H (38-126) U/L NT-Pro-B Natriuret Pep 1940 pg/mL Total Protein 5.8 L (6.3-8.2) g/dL Albumin 2.6 L (3.5-5.0) g/dL Influenza Type A (PCR) (Not Detectd) Influenza Type B (PCR) (Not Detectd) RSV (PCR) (Not Detectd) SARS-CoV-2 (PCR) (Not Detectd) Disposition Clinical Impression: Dehydration, Failure to thrive in adult, Pneumonia Disposition: ADMITTED IP TO THIS HOSP Condition: Stable Is patient prescribed a controlled substance at d/c from ED?: No
[2023-02-18 01:40] LABS: Basophils % (A) 0 %; Eosinophils # (A) 0.1 k/uL (0-0.7); Eosinophils % (A) 1 %; HCT 32.5 % (34.0-46.0); HGB 10.5 gm/dL (11.4-16.0); Lymphocytes % (A) 27 %; MCH 26.5 pg (25.0-35.0); MCHC 32.2 g/dL (31.0-37.0); MCV 82.4 fL (80.0-100.0); Mean Platelet Volume 8.3; Monocytes # (A) 0.4 k/uL (0-1.0); Monocytes % (A) 5 %; Neutrophils # (A) 4.9 k/uL (1.3-7.7); Neutrophils % (A) 65 %; Platelet Count 125 k/uL (150-450); RBC 3.94 m/uL (3.80-5.40); RDW 15.8 % (11.5-15.5); WBC 7.5 k/uL (3.8-10.6)
[2023-02-18 01:45] LABS: ALT 33 U/L (4-34); AST 53 U/L (14-36); African American GFR (CKD) 72 (>60 ml/min/1.73 sqM); Albumin 2.6 g/dL (3.5-5.0); Alkaline Phosphatase 140 U/L (38-126); Anion Gap 7 mmol/L; Blood Urea Nitrogen 59 mg/dL (7-17); Calcium 8.4 mg/dL (8.4-10.2); Carbon Dioxide 20 mmol/L (22-30); Chloride 106 mmol/L (98-107); Glucose 83 mg/dL (74-99); Non-African American GFR(CKD) 63 (>60 ml/min/1.73 sqM); Potassium 4.9 mmol/L (3.5-5.1); Sodium 133 mmol/L (137-145); Total Bilirubin 0.5 mg/dL (0.2-1.3); Total Protein 5.8 g/dL (6.3-8.2)
[2023-02-18 01:54] LABS: NT-Pro-B-Type Natriuretic Pept 1940 pg/mL
[2023-02-18 01:55] LABS: Partial Thromboplastin Time 21.8 sec (22.0-30.0); Prothrombin Time 10.4 sec (9.0-12.0)
[2023-02-18] MEDS ORDERED: NALOXONE 0.4 MG/ML 1 ML VIAL IV PRN (02:27)
[2023-02-18] MEDS ORDERED: AZITHROMYCIN 500 MG in SODIUM CHLORIDE 0.9% 250 ML IVPB STA (02:27)
[2023-02-18] MEDS: SODIUM CHLORIDE 0.9% 1,000 ML IV SCH ×3 (04:35→18:44)
[2023-02-18] MEDS ORDERED: ONDANSETRON ODT 4 MG TAB PO PRN (18:23)
--- NOTE | 2023-02-18 19:21 | HP ---
HISTORY AND PHYSICAL HISTORY OF PRESENT ILLNESS: A 62-year-old female, came in with fever, confusion, and hypoxemia. She has a feeding tube. History of decubitus ulcer. She needed oxygen. She has been hypoxic. Blood pressure was stable. Came to the ER, was admitted for pneumonia. HOME MEDICATIONS: Include: 1. Vimpat 100 per PEG tube b.i.d. 2. Lopressor 50 b.i.d. 3. Zoloft 25 daily. 4. Zoloft 100 mg daily. 5. Risperdal 1 mg through PEG tube. 6. Protonix 40 mg PEG tube b.i.d. 7. Benadryl 75 b.i.d. 8. Depakote 250 through PEG tube at night and 500 through PEG tube in the morning. ALLERGIES: 1. Hydromorphone. 2. Morphine. PAST MEDICAL HISTORY: CVA, TIA, hypertension, osteoarthritis, pancreatitis, pseudoseizure, UTI, gallstones, tremors, brain aneurysms, ESBL, and MRSA. PAST SURGICAL HISTORY: , cholecystectomy, and orthopedic surgery. PAST PSYCHIATRIC HISTORY: Anxiety, depression, and schizophrenia. FAMILY HISTORY: Father, cancer of throat, lung, and rectal. Mother, myocardial infarction and stroke. PHYSICAL EXAMINATION: VITAL SIGNS: Blood pressure was 101/61, O2 saturation was 80% on admission, temperature 98.8, pulse 90 to 98. GENERAL: No acute distress. HEENT: Pupils are equal, round, and reactive. External ear canals are within normal limits. LUNGS: Scattered wheeze x4. CARDIAC: S1 and S2. GI: Soft. EXTREMITIES: Mild edema. ASSESSMENT AND PLAN: 1. Hypoxemic respiratory distress. 2. Recurrent pneumonia. 3. Chronic obstructive pulmonary disease. 4. History of seizures. 5. Anemia. 6. Hyponatremia. 7. Mild dehydration. Negative for flu/influenza. Dr. Tristan consulted. IV antibiotics will be ordered. Protein-calorie malnutrition, PEG tube/feeding tube, evaluation with dietitian. Prognosis is guarded. MMODL / IJN: [id number] /
[2023-02-18] MEDS: BUDESONIDE 0.5 MG/2 ML NEBU INHALATION SCH (21:49)
[2023-02-18] MEDS: IPRATROPIUM-ALBUTEROL 3 ML NEB INHALATION SCH (21:49)
[2023-02-18] MEDS: haloperidoL 5 MG TAB PEG/G-TUBE SCH (22:49)
[2023-02-18] MEDS: LACOSAMIDE 50 MG TABLET PEG/G-TUBE SCH (22:49)
[2023-02-18] MEDS: risperiDONE 1 MG TAB PEG/G-TUBE SCH (22:49)
[2023-02-18] MEDS: METOPROLOL TARTRATE 25 MG TAB PEG/G-TUBE SCH (22:49)
[2023-02-18] MEDS: methylPREDNISolone SOD SUCCI 40 MG/ML 1 ML VIAL IV SCH (22:50)
[2023-02-18] MEDS: DIVALPROEX SPRINKLE 125 MG CAP.SPRINK PEG/G-TUBE SCH (22:50)
--- NOTE | 2023-02-18 23:04 | CT ---
EXAMINATION TYPE: CT chest wo con DATE OF EXAM: 02/18/2023 COMPARISON: None HISTORY: pneumonia CT DLP: 295.3 mGycm, Automated exposure control for dose reduction was used. CONTRAST: Performed injected with 0 mL of Isovue 300. TECHNIQUE: Axial images were obtained at 5 mm thick sections. Reconstructed images are reviewed on [employer] computer in the coronal plane. FINDINGS: Portion of the thyroid visualized is normal. Mild nonspecific increased lung markings are present bilaterally is may be greater into the right upp er lung field. Correlate for pneumonia. Consider atypical pneumonia. No enlarged mediastinal or hilar adenopathy is evident. The ascending aorta diameter at the level o f the main pulmonary artery is 2.7 cm. The main pulmonary artery diameter at the bifurcation is 2.1 cm. Mild coronary artery calcification is present. Limited CT sections are obtained through the upper abdomen. Abdomen appears unremarkable. IMPRESSIONS: 1. Mild scattered traits greater in the right upper lung. Correlate for pneumonia.
--- NOTE | 2023-02-18 23:17 | CT ---
CT CHEST FOR PULMONARY EMBOLISM. EXAMINATION TYPE: CT chest angio for PE DATE OF EXAM: 02/18/2023 INDICATION: pneumonia, elevated d dimer CT DLP: 288.2 mGycm, Automated exposure control for dose reduction was used. CONTRAST: Patient injected with 100ml mL of Isovue 370. COMPARISON: TECHNIQUE: CT of the chest is performed on a spiral scan at 2 mm thick sections. Study is performed with intravenous contrast timed for evaluation for pulmonary embolism. This will limit additional po rtions of the evaluation. 3-D MIP images reconstructed by the technologist are reviewed on the compu ter in the coronal and sagittal planes. FINDINGS: No persistent filling defects are evident to suggest an acute pulmonary embolism. No mediastinal or hilar adenopathy enlarged by CT criteria is evident. The ascending aorta diameter at the level of the main pulmonary artery is 2.9 cm. The main pulmonary artery diameter at the bifur cation is 2.1 cm. Scattered increased lung markings are in the mid and upper lung campoverde. There is worsening groundglas s opacities present. Pulmonary edema should be considered. Limited CT section through the upper abdomen are unremarkable. IMPRESSIONS: 1. Worsening lung infiltrates suggestive for worsening pulmonary edema. 2. No acute pulmonary embolism.
[2023-02-19] MEDS: SODIUM CHLORIDE 0.9% 1,000 ML IV SCH ×4 (01:33→23:58)
[2023-02-19] MEDS: haloperidoL 5 MG TAB PEG/G-TUBE SCH ×2 (06:35→20:32)
[2023-02-19 06:47] LABS: Appearance,Urine Clear (Clear); Color,Urine Amber; Glucose,Urine (UA) Negative (Negative); PH, Urine 6.5 (5.0-8.0); Protein,Urine Negative (Negative)
[2023-02-19 06:48] LABS: Bilirubin,Urine Negative (Negative); Blood,Urine Negative (Negative); Ketones,Urine Negative (Negative); Leukocyte Esterase,Urine Large (Negative); Nitrite,Urine Negative (Negative); Urobilinogen,Urine <2.0 mg/dL (<2.0)
[2023-02-19 07:11] LABS: Amphetamine Screen,Urine Not Detected (NotDetected); Barbiturate Screen,Urine Not Detected (NotDetected); Benzodiazepines Screen,Urine Not Detected (NotDetected); Cocaine Screen,Urine Not Detected (NotDetected); Methadone Screen, Urine Not Detected (NotDetected); Opiate Screen,Urine Not Detected (NotDetected); Oxycodone Screen, Urine Detected (NotDetected); Phencyclidine Screen,Urine Not Detected (NotDetected); Tricyclic Antidepressant,Urine Not Detected (NotDetected); Urn Cannabinoid Scrn Not Detected (NotDetected)
[2023-02-19] MEDS: ASCORBIC ACID 500 MG TAB PEG/G-TUBE SCH (08:06)
[2023-02-19] MEDS: DIVALPROEX SPRINKLE 125 MG CAP.SPRINK PEG/G-TUBE SCH ×2 (08:06→20:32)
[2023-02-19] MEDS: LACOSAMIDE 50 MG TABLET PEG/G-TUBE SCH ×2 (08:06→20:32)
[2023-02-19] MEDS: SERTRALINE 25 MG TAB PEG/G-TUBE SCH (08:07)
[2023-02-19] MEDS: METOPROLOL TARTRATE 25 MG TAB PEG/G-TUBE SCH ×2 (08:07→20:32)
[2023-02-19] MEDS: SERTRALINE 100 MG TAB PEG/G-TUBE SCH (08:12)
[2023-02-19] MEDS: methylPREDNISolone SOD SUCCI 40 MG/ML 1 ML VIAL IV SCH ×3 (08:36→23:57)
[2023-02-19] MEDS: IPRATROPIUM-ALBUTEROL 3 ML NEB INHALATION SCH ×4 (09:05→20:52)
[2023-02-19] MEDS: BUDESONIDE 0.5 MG/2 ML NEBU INHALATION SCH ×2 (09:05→20:52)
[2023-02-19] MEDS: AZITHROMYCIN 500 MG in SODIUM CHLORIDE 0.9% 250 ML IVPB SCH (09:11)
[2023-02-19 09:12] LABS: WBC,Urine 5 /hpf (0-5)
[2023-02-19 09:13] LABS: Squamous Epithelial Cell,Urine 6 /hpf (0-4)
[2023-02-19 09:14] LABS: Mucus,Urine Rare /hpf
[2023-02-19] MEDS: risperiDONE 1 MG TAB PEG/G-TUBE SCH (20:32)
--- NOTE | 2023-02-19 21:47 | P.CONS ---
History of Present Illness - Reason for Consult Consult date: 02/19/23 - History of Present Illness Patient is a 62-year-old -[place] Citizen female with a past medical history significant for hypertension hyperlipidemia osteoarthritis CVA TIA history of recurrent UTI the patient has been brought into the hospital 2 days ago for evaluation of fever confusion and hypoxemia currently patient's symptom has been going on for a day before presentation to the hospital patient denies any headache or URI symptoms the patient did have mild cough but no sputum production. Denies having any nausea vomiting or choking on the food no abdominal pain or any diarrhea on presentation to the hospital the patient was afebrile and no fever has been recorded subsequently patient was not tachycardic hypotensive, however patient did have hypoxemia with O2 sats of 80% on room air on presentation to the hospital currently 100% on 2 L nasal cannula patient did have a normal white count kidney function was normal AST was elevated urine has been negative urine toxin positive for oxycodone influenza RSV and COVID testing was negative patient did have a chest x-ray right mid and lower lung pneumonia patient also have a elevated D-dimer and CT angiogram of the chest no PE did shows worsening lung infiltrate suggestive of worsening pulmonary edema patient has been started on Rocephin and Zithromax infectious disease was consulted for further management of antibiotic therapy Past Medical History Past Medical History: CVA/TIA, Hyperlipidemia, Hypertension, Osteoarthritis (OA) Additional Past Medical History / Comment(s): ANEMIA, CVA WITH L ARM WEAKNESS AND bilateral LEG WEAKNESS, hx. gout, PANCREATITIS, pseudoseizures, UTI, gallst ones, tremors, hx multiple brain aneursyms, pressure injuries to right calf and left heel History of Any Multi-Drug Resistant Organisms: ESBL, MRSA Year Discovered:: 02/03/23-MRSA; 03/18/18 ESBL MDRO Source:: Right Lateral Calf- MRSA; Urine-ESBL Past Surgical History: Section, Cholecystectomy, Orthopedic Surgery Additional Past Surgical History / Comment(s): hx aneurysms- COILS AND STENTS TO BRAIN, repair tendons r/t gout BILATERAL FEET; Pain pump inserted on 04/21/22 Past Anesthesia/Blood Transfusion Reactions: No Reported Reaction Additional Past Anesthesia/Blood Transfusion Reaction / Comm: PT HAS HAD BLOOD T RANSFUSIONS FOR ANEMIA-NO REACTION. Smoking Status: Former smoker - Past Family History Sister(s) Family Medical History: Myocardial Infarction ([place]) Father Family Medical History: Cancer Additional Family Medical History / Comment(s): throat, lung, and rectal cancer Mother Family Medical History: Myocardial Infarction (MD) Additional Family Medical History / Comment(s): stroke Medications and Allergies Home Medications Medication Instructions Recorded Confirmed Type Lacosamide [Vimpat] 100 mg PEG/G-TUBE BID 07/03/22 02/18/23 History Sertraline [Zoloft] 25 mg PEG/G-TUBE DAILY 07/03/22 02/18/23 History Sertraline [Zoloft] 100 mg PEG/G-TUBE DAILY 07/03/22 02/18/23 History risperiDONE [RisperDAL] 1 mg PEG/G-TUBE HS 07/03/22 02/18/23 History Divalproex Sprinkle [Depakote 250 mg PEG/G-TUBE HS 90 Days #180 10/07/22 02/18/23 Rx Sprinkle] cap Divalproex Sprinkle [Depakote 500 mg PEG/G-TUBE DAILY 90 Days 10/07/22 02/18/23 Rx Sprinkle] #90 cap Ascorbic Acid [Vitamin C] 500 mg PEG/G-TUBE DAILY 02/18/23 02/18/23 History Metoprolol Tartrate [Lopressor] 25 mg PEG/G-TUBE BID 02/18/23 02/18/23 History Ondansetron Odt [Zofran Odt] 4 mg PO Q8HR PRN 02/18/23 02/18/23 History haloperidoL [Haldol] 2.5 mg PEG/G-TUBE Q12H 02/18/23 02/18/23 History Allergies Allergy/AdvReac Type Severity Reaction Status Date / Time hydromorphone [From Dilaudid] Allergy Swelling Verified 02/18/23 07:12 morphine Allergy Swelling Verified 02/18/23 07:12 Physical Exam Vitals: Vital Signs Temp Pulse Pulse Resp BP BP Pulse Ox 02/19/23 11:41 84 02/19/23 11:31 83 02/19/23 09:15 84 02/19/23 09:07 90 95 02/19/23 07:59 97.5 F L 71 18 135/84 100 02/19/23 01:59 97.8 F 83 15 125/79 97 02/18/23 20:00 97.7 F 78 16 120/81 98 02/18/23 15:00 86 20 99/75 96 02/18/23 14:00 85 16 107/66 99 Intake and Output 02/18/23 02/19/23 02/19/23 22:59 06:59 14:59 Output Total 200 Balance -200 Output: Urine 200 Other: # Voids 1 # Bowel Movements 1 Weight 54.431 kg Results CBC & Chem 7: 02/18/23 01:10 02/18/23 01:10 Labs: Abnormal Lab Results - Last 24 Hours (Table) 02/18/23 02/19/23 Range/Units 18:58 05:55 D-Dimer 4.15 H (<0.60) mg/L FEU Ur Squamous Epith Cells 6 H (0-4) /hpf Urine Mucus Rare H (None) /hpf Ur Oxycodone Screen Detected H (NotDetected) Microbiology - Last 24 Hours (Table) 02/18/23 01:10 Blood Culture - Preliminary Blood 02/18/23 04:00 Blood Culture - Preliminary Blood Assessment and Plan Plan: 1patient was in the hospital with hypoxemia increasing shortness of breath initial chest x-ray was suggestive of pneumonia patient however did not have significant respiratory symptoms of cough or sputum production patient is not running any fever White count is normal question of possible cardiac etiology rather than pneumonia. 2we will obtain CRP procalcitonin and NT proBNP 3-for now continue with Rocephin and Zithromax while awaiting further work-up to be completed We will follow on clinical condition and cultures to further adjust medication if needed Thank you for this consultation we will follow the patient along with you Dictation was produced using [employer] dictation software. please excuse any grammatical, word or spelling errors. Time with Patient: Greater than 30
[2023-02-20] MEDS: haloperidoL 5 MG TAB PEG/G-TUBE SCH (06:06)
[2023-02-20] MEDS: methylPREDNISolone SOD SUCCI 40 MG/ML 1 ML VIAL IV SCH ×2 (07:57→16:26)
[2023-02-20] MEDS: METOPROLOL TARTRATE 25 MG TAB PEG/G-TUBE SCH ×2 (08:02→23:57)
[2023-02-20] MEDS: SERTRALINE 100 MG TAB PEG/G-TUBE SCH (08:02)
[2023-02-20] MEDS: DIVALPROEX SPRINKLE 125 MG CAP.SPRINK PEG/G-TUBE SCH (08:02)
[2023-02-20] MEDS: SERTRALINE 25 MG TAB PEG/G-TUBE SCH ×2 (08:02→08:03)
[2023-02-20] MEDS: ASCORBIC ACID 500 MG TAB PEG/G-TUBE SCH (08:02)
[2023-02-20] MEDS: LACOSAMIDE 50 MG TABLET PEG/G-TUBE SCH (08:04)
[2023-02-20] MEDS: BUDESONIDE 0.5 MG/2 ML NEBU INHALATION SCH ×2 (08:33→21:22)
[2023-02-20] MEDS: IPRATROPIUM-ALBUTEROL 3 ML NEB INHALATION SCH ×4 (08:33→21:22)
[2023-02-20] MEDS: AZITHROMYCIN 500 MG in SODIUM CHLORIDE 0.9% 250 ML IVPB SCH (09:44)
[2023-02-20] MEDS: SODIUM CHLORIDE 0.9% 1,000 ML IV SCH ×2 (10:51→12:56)
--- NOTE | 2023-02-20 13:07 | PN ---
PROGRESS NOTE DATE OF SERVICE: 02/20/2023 SUBJECTIVE: This is a 62-year-old woman, who was admitted with respiratory failure and also recurrent pneumonia with possibility of aspiration is also being considered. The patient had a CT angio of the chest. I reviewed the radiology investigations. The patient had extensive bilateral pneumonia and the possibility of aspiration or even unusual situations like COVID pneumonia or after effects of COVID is also being considered. The patient is being closely monitored. The patient has PEG tube feeds. The patient has some contractures also. PAST MEDICAL HISTORY: Reviewed. REVIEW OF SYSTEMS: A 14-point review is negative except as mentioned earlier. CURRENT MEDICATIONS: Ceftriaxone. Dose and rest of medication noted. PHYSICAL EXAMINATION: VITAL SIGNS: Pulse is 76, blood pressure 130/70, respirations 17. HEENT: Conjunctivae normal. NECK: No JVD. CARDIOVASCULAR: S1, S2. RESPIRATIONS: A few scattered rhonchi and crackles. ABDOMEN: Soft. PEG tube present. NERVOUS SYSTEM: Diffusely weak. LABORATORY DATA: Reviewed. ASSESSMENT: 1. Possible bilateral pneumonia, right more than the left, possibly aspiration, rule out COVID pneumonia. 2. Rule out congestive heart failure. 3. Status post PEG tube placement. 4. History of cerebrovascular accident. 5. Hypertension. 6. Hyperlipidemia. 7. Multiple medical issues. RECOMMENDATIONS: This is a 62-year-old woman, who presented with multiple complex medical issues, we will monitor the patient closely. Initiate broad-spectrum IV antibiotics. We will change the antibiotic to IV Zosyn. Obtain Cardiology, Pulmonology, Infectious Disease evaluations. Other than that, 2D echo with Doppler to rule out possibly CHF. Small dose of Lasix. Continue to monitor. The initial COVID-19 is negative. Prognosis extremely guarded because of multiple complex medical issues. We will obtain the cultures. Further recommendations to follow. See orders for further details. MMODL / IJN: [id number] /
[2023-02-20 13:27] LABS: Basophils % (A) 0 %; Eosinophils # (A) 0.1 k/uL (0-0.7); Eosinophils % (A) 2 %; HCT 32.8 % (34.0-46.0); HGB 10.7 gm/dL (11.4-16.0); Hypochromasia Moderate; Lymphocytes # (A) 0.8 k/uL (1.0-4.8); Lymphocytes % (A) 15 %; MCH 27.4 pg (25.0-35.0); MCHC 32.5 g/dL (31.0-37.0); MCV 84.1 fL (80.0-100.0); Monocytes # (A) 0.2 k/uL (0-1.0); Monocytes % (A) 4 %; Neutrophils # (A) 4.3 k/uL (1.3-7.7); Neutrophils % (A) 78 %; Platelet Count 159 k/uL (150-450); RDW 15.3 % (11.5-15.5); WBC 5.4 k/uL (3.8-10.6)
[2023-02-20 13:45] LABS: ALT 32 U/L (4-34); AST 50 U/L (14-36); African American GFR (CKD) >90 (>60 ml/min/1.73 sqM); Albumin 2.7 g/dL (3.5-5.0); Albumin/Globulin Ratio 0.8; Alkaline Phosphatase 189 U/L (38-126); Anion Gap 10 mmol/L; Blood Urea Nitrogen 42 mg/dL (7-17); C Reactive Protein 4.8 mg/dL (<1.0); Calcium 8.2 mg/dL (8.4-10.2); Carbon Dioxide 12 mmol/L (22-30); Chloride 116 mmol/L (98-107); Globulin 3.3 g/dL; Glucose 148 mg/dL (74-99); Non-African American GFR(CKD) >90 (>60 ml/min/1.73 sqM); Potassium 4.6 mmol/L (3.5-5.1); Sodium 138 mmol/L (137-145); Total Bilirubin 0.3 mg/dL (0.2-1.3)
[2023-02-20 13:50] LABS: NT-Pro-B-Type Natriuretic Pept 3730 pg/mL
--- NOTE | 2023-02-20 15:22 | CDI ---
Documentation Clarification Form Date: 02/20/2023 02:55:00 PM From: Reina Sarmiento RN, CCDS Admit Date: 02/18/2023 02:30:00 AM Patient Name: Jeane Urbano Visit Number: [id number] Discharge Date: ATTENTION: The Clinical Documentation Specialists (CDI) and [facility] Coding Staff appreciate your assistance in clarifying documentation. Please respond to the clarification below the line at the bottom and electronically sign. The CDI & [facility] Coding staff will review the response and follow-up if needed. Please note: Queries are made part of the Legal Health Record. If you have any questions, please contact the author of this message via ITS. Dr. Zhang Fraser Your patient had hypoxemia respiratory distress with oxygen sat's of 80% on room air on admission]. Based on this information and the findings below, is there an additional diagnosis that is clinically appropriate for this patient? History/Risk Factors: CVA/TIA, Hyperlipidemia, Hypertension, Osteoarthritis (OA)Former smoker Tobacco use: Former tobacco use Clinical Indicators: 62-year-old female present with confusion, hypoxemia, history of decubitus ulcer. She is bedbound and has feeding tube. 02/17 VS: 100/61 98 18 98.8 80 % RA, 99 % 6/L NC 02/18 VS: 117/78 94 20 99 % 3/L NC 02/18 CXR: Rt mid lower lung pneumonia Treatment: Duoneb 0.5 MG Per QID Pulmicort Inhilation BID Lasix 40 MG IV Daily 02/20 Monitor O2 Sat's (titrate) Is there an additional diagnosis that is clinically appropriate for this patient? [ ] Acute Hypoxic Respiratory Failure (pO2 <60 mm Hg or SpO2 <91% on room air [ ] Other Diagnosis, please specify [ ] Unable to determine. (Template Last Revised: September 2020) Acute Hypoxic Respiratory Failure (pO2 <60 mm Hg or SpO2 <91% on room air MTDD
[2023-02-20] MEDS: PIPERACILLIN-TAZOBACTAM 3.375 GM in SODIUM CHLORIDE 0.9% 100 ML IVPB SCH (16:26)
[2023-02-20] MEDS: FUROSEMIDE 10 MG/ML 4 ML VIAL IV SCH (16:26)
[2023-02-21] MEDS: DIVALPROEX SPRINKLE 125 MG CAP.SPRINK PEG/G-TUBE SCH ×3 (00:13→23:26)
[2023-02-21] MEDS: haloperidoL 5 MG TAB PEG/G-TUBE SCH ×3 (00:14→19:00)
[2023-02-21] MEDS: LACOSAMIDE 50 MG TABLET PEG/G-TUBE SCH ×3 (00:14→23:25)
[2023-02-21] MEDS: risperiDONE 1 MG TAB PEG/G-TUBE SCH ×2 (00:15→23:25)
[2023-02-21] MEDS: methylPREDNISolone SOD SUCCI 40 MG/ML 1 ML VIAL IV SCH ×4 (01:18→23:27)
[2023-02-21] MEDS: PIPERACILLIN-TAZOBACTAM 3.375 GM in SODIUM CHLORIDE 0.9% 100 ML IVPB SCH ×4 (01:19→23:28)
[2023-02-21] MEDS: BUDESONIDE 0.5 MG/2 ML NEBU INHALATION SCH ×2 (08:01→19:26)
[2023-02-21] MEDS: IPRATROPIUM-ALBUTEROL 3 ML NEB INHALATION SCH ×4 (08:01→19:26)
[2023-02-21] MEDS: FUROSEMIDE 10 MG/ML 4 ML VIAL IV SCH (08:59)
[2023-02-21] MEDS: ASCORBIC ACID 500 MG TAB PEG/G-TUBE SCH (09:00)
[2023-02-21] MEDS: METOPROLOL TARTRATE 25 MG TAB PEG/G-TUBE SCH ×2 (09:00→23:25)
[2023-02-21] MEDS: SERTRALINE 100 MG TAB PEG/G-TUBE SCH (09:00)
[2023-02-21] MEDS: AZITHROMYCIN 500 MG in SODIUM CHLORIDE 0.9% 250 ML IVPB SCH (09:01)
--- NOTE | 2023-02-21 09:40 | P.PN ---
Subjective Progress Note Date: 02/20/23 Principal diagnosis: Pneumonia Patient is a 62-year-old -[place] female with a past medical history significant for hypertension hyperlipidemia osteoarthritis CVA TIA history of recurrent UTI the patient has been brought into the hospital 2 days ago for evaluation of fever confusion and hypoxemia , patient has been diagnosed with pneumonia and started on antibiotic. On today's evaluation that is 02/20/2023, the patient denies having any fever or any chills, patient is breathing comfortably on 3 L nasal cannula oxygen patient denies any chest pain occasional cough no nausea no vomiting no abdominal pain or diarrhea Objective - Vital Signs Vital signs: Vital Signs Temp 96.5 F L 02/20/23 08:00 Pulse 80 02/20/23 11:52 Resp 17 02/20/23 08:00 BP 130/70 02/20/23 08:00 Pulse Ox 99 02/20/23 08:37 FiO2 Intake & Output 02/19/23 02/20/23 02/20/23 18:59 06:59 18:59 Output Total 600 400 Balance -600 -400 Weight 54.431 kg 54.431 kg Output: Urine 600 400 - Exam GENERAL DESCRIPTION: Middle-age female lying in bed in no distress RESPIRATORY SYSTEM: Unlabored breathing , decreased breath sounds at bases HEART: S1 S2 regular rate and rhythm , ABDOMEN: Soft , no tenderness EXTREMITIES: No edema feet - Labs CBC & Chem 7: 02/20/23 13:15 02/20/23 13:15 Labs: Microbiology - Last 24 Hours (Table) 02/18/23 01:10 Blood Culture - Preliminary Blood 02/18/23 04:00 Blood Culture - Preliminary Blood Assessment and Plan (1) Pneumonia Current Visit: No Status: Acute Code(s): J18.9 - PNEUMONIA, UNSPECIFIED ORGANISM SNOMED Code(s): 384830573 Plan: 1patient was in the hospital with hypoxemia increasing shortness of breath initial chest x-ray was suggestive of pneumonia patient however did not have significant respiratory symptoms of cough or sputum production patient is not running any fever White count is normal question of possible cardiac etiology rather than pneumonia. 2patient did have elevated CRP of 4.7 procalcitonin is elevated at 0.48 and also elevated NT proBNP 3Patient will continue with Rocephin and Zithromax but may need further workup to rule out cardiac etiology with elevated NT proBNP Dictation was produced using [employer] dictation software. please excuse any grammatical, word or spelling errors. Time with Patient: Less than 30
--- NOTE | 2023-02-21 12:40 | P.CNPUL ---
History of Present Illness Reason for consult: cough, COPD, hypoxemia Chief complaint: Confusion hypoxemia History of present illness: Patient is a 62-year-old -[place] female with a past medical history significant for hypertension hyperlipidemia osteoarthritis CVA TIA history of recurrent UTI the patient has been brought into the hospital 2 days ago for evaluation of fever confusion and hypoxemia currently patient's symptom has been going on for a day before presentation to the hospital patient denies any headache or URI symptoms the patient did have mild cough but no sputum pro duction. Denies having any nausea vomiting or choking on the food no abdominal pain or any diarrhea on presentation to the hospital the patient was afebrile and no fever has been recorded subsequently patient was not tachycardic hypotensive, however patient did have hypoxemia with O2 sats of 80% on room air on presentation to the hospital currently 100% on 2 L nasal cannula patient did have a normal white count kidney function was normal AST was elevated urine has been negative urine toxin positive for oxycodone influenza RSV and COVID testing was negative patient did have a chest x-ray right mid and lower lung pneumonia patient also have a elevated D-dimer and CT angiogram of the chest no PE did shows worsening lung infiltrate suggestive of worsening pulmonary edema patient has been started on Rocephin and Zithromax infectious disease was consulted for further management of antibiotic therapy Review of Systems All systems: negative Past Medical History Past Medical History: CVA/TIA, Hyperlipidemia, Hypertension, Osteoarthritis (OA) Additional Past Medical History / Comment(s): ANEMIA, CVA WITH L ARM WEAKNESS AND bilateral LEG WEAKNESS, hx. gout, PANCREATITIS, pseudoseizures, UTI, gallstones, tremors, hx multiple brain aneursyms, pressure injuries to right calf and left heel History of Any Multi-Drug Resistant Organisms: ESBL, MRSA Date of last positivie culture/infection: 02/03/23-MRSA; 03/18/18 ESBL MDRO Source:: Right Lateral Calf- MRSA; Urine-ESBL Past Surgical History: Section, Cholecystectomy, Orthopedic Surgery Additional Past Surgical History / Comment(s): hx aneurysms- COILS AND STENTS TO BRAIN, repair tendons r/t gout BILATERAL FEET; Pain pump inserted on 04/21/22 Past Anesthesia/Blood Transfusion Reactions: No Reported Reaction Additional Past Anesthesia/Blood Transfusion Reaction / Comment(s): PT HAS HAD BLOOD TRANSFUSIONS FOR ANEMIA-NO REACTION. Smoking Status: Former smoker - Past Family History Sister(s) Family Medical History: Myocardial Infarction ([place]) Father Family Medical History: Cancer Additional Family Medical History / Comment(s): throat, lung, and rectal cancer Mother Family Medical History: Myocardial Infarction ([place]) Additional Family Medical History / Comment(s): stroke Medications and Allergies Home Medications Medication Instructions Recorded Confirmed Type Lacosamide [Vimpat] 100 mg PEG/G-TUBE BID 07/03/22 02/18/23 History Sertraline [Zoloft] 25 mg PEG/G-TUBE DAILY 07/03/22 02/18/23 History Sertraline [Zoloft] 100 mg PEG/G-TUBE DAILY 07/03/22 02/18/23 History risperiDONE [RisperDAL] 1 mg PEG/G-TUBE HS 07/03/22 02/18/23 History Divalproex Sprinkle [Depakote 250 mg PEG/G-TUBE HS 90 Days #180 10/07/22 02/18/23 Rx Sprinkle] cap Divalproex Sprinkle [Depakote 500 mg PEG/G-TUBE DAILY 90 Days 10/07/22 02/18/23 Rx Sprinkle] #90 cap Ascorbic Acid [Vitamin C] 500 mg PEG/G-TUBE DAILY 02/18/23 02/18/23 History Metoprolol Tartrate [Lopressor] 25 mg PEG/G-TUBE BID 02/18/23 02/18/23 History Ondansetron Odt [Zofran Odt] 4 mg PO Q8HR PRN 02/18/23 02/18/23 History haloperidoL [Haldol] 2.5 mg PEG/G-TUBE Q12H 02/18/23 02/18/23 History Allergies Allergy/AdvReac Type Severity Reaction Status Date / Time hydromorphone [From Dilaudid] Allergy Swelling Verified 02/18/23 07:12 morphine Allergy Swelling Verified 02/18/23 07:12 Physical Exam Vitals: Vital Signs Temp Pulse Pulse Resp BP Pulse Ox 02/21/23 12:08 80 02/21/23 11:59 80 02/21/23 08:19 82 02/21/23 08:01 83 100 02/21/23 06:50 98.0 F 78 17 126/81 99 02/21/23 01:19 98.4 F 86 18 126/84 99 02/20/23 21:33 82 02/20/23 21:23 82 02/20/23 20:02 98.2 F 81 18 109/62 100 02/20/23 15:38 76 02/20/23 15:28 76 02/20/23 14:00 98.5 F 83 16 116/82 99 Intake and Output 02/20/23 02/21/23 02/21/23 22:59 06:59 14:59 Output Total 1100 250 Balance -1100 -250 Output: Urine 1100 250 Other: Voiding Method External Catheter External Catheter Weight 72.5 kg Limitations: no limitations General appearance: alert, in no apparent distress Head exam: Present: atraumatic, normocephalic Eye exam: Present: normal appearance, PERRL ENT exam: Present: mucous membranes dry Neck exam: Present: normal inspection. Absent: tenderness, meningismus Respiratory exam: Present: respiratory distress, rhonchi, decreased breath sounds Cardiovascular Exam: Present: regular rate, normal rhythm GI/Abdominal exam: Present: soft. Absent: distended, tenderness, guarding Extremities exam: Present: normal capillary refill Neurological exam: Present: alert Skin exam: Present: warm, dry, intact Results - Laboratory Findings CBC and BMP: 02/20/23 13:15 02/20/23 13:15 PT/INR, D-dimer PT 10.4 sec (9.0-12.0) 02/18/23 01:10 INR 1.0 (<1.2) 02/18/23 01:10 D-Dimer 4.15 mg/L FEU (<0.60) H 02/18/23 18:58 Abnormal lab findings: Abnormal Labs 02/18/23 02/18/23 02/18/23 01:10 01:10 01:10 Hgb 10.5 L Hct 32.5 L RDW 15.8 H Plt Count 125 L Lymphocytes # APTT 21.8 L D-Dimer Sodium 133 L Chloride Carbon Dioxide 20 L BUN 59 H Glucose Calcium AST 53 H Alkaline Phosphatase 140 H C-Reactive Protein Total Protein 5.8 L Albumin 2.6 L Procalcitonin Ur Squamous Epith Cells Urine Mucus Ur Oxycodone Screen 02/18/23 02/19/23 02/20/23 18:58 05:55 13:15 Hgb Hct RDW Plt Count Lymphocytes # APTT D-Dimer 4.15 H Sodium Chloride 116 H Carbon Dioxide 12 L BUN 42 H Glucose 148 H Calcium 8.2 L AST 50 H Alkaline Phosphatase 189 H C-Reactive Protein 4.8 H Total Protein 6.0 L Albumin 2.7 L Procalcitonin Ur Squamous Epith Cells 6 H Urine Mucus Rare H Ur Oxycodone Screen Detected H 02/20/23 02/20/23 13:15 13:15 Hgb 10.7 L Hct 32.8 L RDW Plt Count Lymphocytes # 0.8 L APTT D-Dimer Sodium Chloride Carbon Dioxide BUN Glucose Calcium AST Alkaline Phosphatase C-Reactive Protein Total Protein Albumin Procalcitonin 0.48 H Ur Squamous Epith Cells Urine Mucus Ur Oxycodone Screen - Diagnostic Findings Chest x-ray: report reviewed, image reviewed CT scan - chest: report reviewed, image reviewed Assessment and Plan Assessment: Acute on chronic hypoxic respiratory failure appears to be related to pneumonia as well as baseline COPD, oxygenation continued to improve on 2 L oxygen doing better Pneumonia likely gram-negative possibly aspiration related, continue Zosyn Congestive heart failure acute on chronic systolic and diastolic heart failure continue gentle diuresis monitor clinical symptoms closely Status post PEG tube due to poor swallowing function as well as prior CVA Hypertension on antihypertensive agents Dyslipidemia on high intensity statins Plan: As above Time with Patient: Greater than 30
--- NOTE | 2023-02-21 13:43 | PN ---
PROGRESS NOTE DATE OF SERVICE: 02/21/2023 SUBJECTIVE: This 62-year-old woman was admitted with possible bilateral pneumonia, is on broad- spectrum IV antibiotics. Infectious Disease evaluation is in progress at this time, the aspiration is also possibility. The cultures are negative so far. PAST MEDICAL HISTORY: Reviewed. REVIEW OF SYSTEMS: Could not be taken. CURRENT MEDICATIONS: Reviewed include IV Zosyn, rest of medications reviewed, Solu-Medrol. PHYSICAL EXAMINATION: VITAL SIGNS: Pulse is 82, blood pressure is n, respirations 17. HEENT: Conjunctivae normal. NECK: No jugular venous distention. CARDIOVASCULAR: S1, S2 normal. RESPIRATIONS: A few scattered rhonchi and crackles. ABDOMEN: Soft. NERVOUS SYSTEM: No focal deficits. LABORATORY DATA: Reviewed. ASSESSMENT: 1. Possible bilateral pneumonia, right more the left, possibly aspiration, rule out COVID Pneumonia. 2. Rule out CHF. 3. Chronic obstructive pulmonary disease. 4. Status post PEG tube placement. 5. History of CVA. 6. Multiple medical issues. RECOMMENDATIONS: Recommended to continue current management, continue symptomatic treatment and optimize bronchodilator treatment. We will follow the cultures. Otherwise, continue the antibiotics. Dr. Harley will follow. MMODL / IJN: [id number] / [facility]
--- NOTE | 2023-02-21 14:42 | P.PN ---
Subjective Progress Note Date: 02/21/23 Principal diagnosis: Pneumonia Patient is a 62-year-old -[place] female with a past medical history significant for hypertension hyperlipidemia osteoarthritis CVA TIA history of recurrent UTI the patient has been brought into the hospital 2 days ago for evaluation of fever confusion and hypoxemia , patient has been diagnosed with pneumonia and started on antibiotic. On today's evaluation that is 02/21/2023, the patient remains to be afebrile, patient is breathing comfortably on 2L nasal cannula oxygen , patient denies any chest pain occasional cough no nausea no vomiting no abdominal pain or diarrhea, no new symptoms She did have white count of 5.4 as of yesterdaywas done today and a creatinine 0.65, Percocet and was 0.48, blood cultures pending Objective - Vital Signs Vital signs: Vital Signs Temp 98.8 F 02/21/23 13:23 Pulse 91 02/21/23 13:23 Resp 17 02/21/23 13:23 BP 139/73 02/21/23 14:36 Pulse Ox 99 02/21/23 13:23 FiO2 Intake & Output 02/20/23 02/21/23 02/21/23 18:59 06:59 18:59 Output Total 500 850 Balance -500 -850 Weight 54.431 kg 72.5 kg Output: Urine 500 850 Other: Voiding Method External Catheter External Catheter - Exam GENERAL DESCRIPTION: Middle-age female lying in bed in no distress RESPIRATORY SYSTEM: Unlabored breathing , decreased breath sounds at bases HEART: S1 S2 regular rate and rhythm , ABDOMEN: Soft , no tenderness EXTREMITIES: No edema feet - Labs CBC & Chem 7: 02/20/23 13:15 02/20/23 13:15 Labs: Abnormal Lab Results - Last 24 Hours (Table) 02/20/23 Range/Units 13:15 Procalcitonin 0.48 H (0.02-0.09) ng/mL Microbiology - Last 24 Hours (Table) 02/18/23 01:10 Blood Culture - Preliminary Blood 02/18/23 04:00 Blood Culture - Preliminary Blood Assessment and Plan (1) Pneumonia Current Visit: No Status: Acute Code(s): J18.9 - PNEUMONIA, UNSPECIFIED ORGANISM SNOMED Code(s): 661441507 Plan: 1patient was in the hospital with hypoxemia increasing shortness of breath initial chest x-ray was suggestive of pneumonia patient however did not have significant respiratory symptoms of cough or sputum production patient is not running any fever White count is normal question of possible cardiac etiology rather than pneumonia. 2patient did have elevated CRP of 4.7 procalcitonin is elevated at 0.48 and also elevated NT proBNP 3Patient antibiotic has been switched to Zosyn and will monitor clinical course closely Dictation was produced using [employer] dictation software. please excuse any grammatical, word or spelling errors. Time with Patient: Less than 30
--- NOTE | 2023-02-21 16:49 | P.CRDCN ---
History of Present Illness Consult date: 02/21/23 History of present illness: HISTORY OF PRESENTING ILLNESS Patient is a 62-year-old -[place] female with past medical history of hypertension, dyslipidemia, CVA, recurrent UTI. She was brought to the hospital days ago to get evaluated for fever, confusion, hypoxemia and shortness of breath. In this hospital stay she was treated for pneumonia. Sputum culture was positive for gram-negative bacteria. Cardiology was consulted for evaluation for congestive heart failure. Patient denies any prior cardiovascular history. She denies having any prior cardiac stenting or prior diagnosis of atrial fibrillation or congestive heart failure. Prior to coming to the hospital patient denied having any symptoms of orthopnea or paroxysmal nocturnal dyspnea. At present patient denies any chest pain or chest pressure at rest. She denies any orthopnea. She denies any palpitations lightheadedness or dizziness. DIAGNOSTICS EKG reveals sinus rhythm with nonspecific ST changes. Laboratory reviewed, [BUN 42, creatinine 0.6]. REVIEW OF SYSTEMS At the time of my exam: CONSTITUTIONAL: Denies fever or chills. CARDIOVASCULAR: Denies chest pain, shortness of breath, orthopnea, PND or palpitations. RESPIRATORY: Denies cough. GASTROINTESTINAL: Denies abdominal pain, diarrhea, constipation, nausea or vomiting. MUSCULOSKELETAL: Denies myalgias. NEUROLOGIC: Denies numbness, tingling or weakness. ENDOCRINE: Denies fatigue, weight change, polydipsia or polyurina. GENITOURINARY: Denies burning, hematuria or urgency with micturation. HEMATOLOGIC: Denies history of anemia or bleeding. PHYSICAL EXAMINATION Vital signs reviewed. CONSTITUTIONAL: No apparent distress. CHEST EXAMINATION: Lungs are clear to auscultation. HEART EXAMINATION: Regular rate and rhythm. S1, S2 heard. No murmurs, gallops or rub. ABDOMEN: PEG tube in place. Normal soft. No tenderness and bowel sounds are audible EXTREMITIES: no lower extremity edema and no calf tenderness. NEUROLOGIC EXAMINATION: Patient is awake, alert and oriented x3. Detailed neuro exam was not performed ASSESSMENT Pneumonia with gram-negative bacteria on IV antibiotics Acute on chronic hypoxic respiratory failure Chronic COPD on 2 L oxygen History of CVA with swallowing difficulty status post acute Hypertension Dyslipidemia PLAN Obtain an echocardiogram Continue metoprolol 25 mg daily Activity with IV Lasix 40 mg today. Transition to by mouth torsemide 20 mg from tomorrow for 7 days. Past Medical History Past Medical History: CVA/TIA, Hyperlipidemia, Hypertension, Osteoarthritis (OA) Additional Past Medical History / Comment(s): ANEMIA, CVA WITH L ARM WEAKNESS A ND bilateral LEG WEAKNESS, hx. gout, PANCREATITIS, pseudoseizures, UTI, gallstones, tremors, hx multiple brain aneursyms, pressure injuries to right calf and left heel History of Any Multi-Drug Resistant Organisms: ESBL, MRSA Date of last positivie culture/infection: 02/03/23-MRSA; 03/18/18 ESBL MDRO Source:: Right Lateral Calf- MRSA; Urine-ESBL Past Surgical History: Section, Cholecystectomy, Orthopedic Surgery Additional Past Surgical History / Comment(s): hx aneurysms- COILS AND STENTS TO BRAIN, repair tendons r/t gout BILATERAL FEET; Pain pump inserted on 04/21/22 Past Anesthesia/Blood Transfusion Reactions: No Reported Reaction Additional Past Anesthesia/Blood Transfusion Reaction / Comment(s): PT HAS HAD BLOOD TRANSFUSIONS FOR ANEMIA-NO REACTION. Smoking Status: Former smoker - Past Family History Sister(s) Family Medical History: Myocardial Infarction ([place]) Father Family Medical History: Cancer Additional Family Medical History / Comment(s): throat, lung, and rectal cancer Mother Family Medical History: Myocardial Infarction ([place]) Additional Family Medical History / Comment(s): stroke Medications and Allergies Home Medications Medication Instructions Recorded Confirmed Type Lacosamide [Vimpat] 100 mg PEG/G-TUBE BID 07/03/22 02/18/23 History Sertraline [Zoloft] 25 mg PEG/G-TUBE DAILY 07/03/22 02/18/23 History Sertraline [Zoloft] 100 mg PEG/G-TUBE DAILY 07/03/22 02/18/23 History risperiDONE [RisperDAL] 1 mg PEG/G-TUBE HS 07/03/22 02/18/23 History Divalproex Sprinkle [Depakote 250 mg PEG/G-TUBE HS 90 Days #180 10/07/22 02/18/23 Rx Sprinkle] cap Divalproex Sprinkle [Depakote 500 mg PEG/G-TUBE DAILY 90 Days 10/07/22 02/18/23 Rx Sprinkle] #90 cap Ascorbic Acid [Vitamin C] 500 mg PEG/G-TUBE DAILY 02/18/23 02/18/23 History Metoprolol Tartrate [Lopressor] 25 mg PEG/G-TUBE BID 02/18/23 02/18/23 History Ondansetron Odt [Zofran Odt] 4 mg PO Q8HR PRN 02/18/23 02/18/23 History haloperidoL [Haldol] 2.5 mg PEG/G-TUBE Q12H 02/18/23 02/18/23 History Allergies Allergy/AdvReac Type Severity Reaction Status Date / Time hydromorphone [From Dilaudid] Allergy Swelling Verified 02/18/23 07:12 morphine Allergy Swelling Verified 02/18/23 07:12 Physical Exam Vitals: Vital Signs Temp Pulse Pulse Resp BP Pulse Ox 02/21/23 16:08 88 02/21/23 15:58 88 02/21/23 14:36 139/73 02/21/23 13:23 98.8 F 91 17 185/82 99 02/21/23 12:08 80 02/21/23 11:59 80 02/21/23 08:19 82 02/21/23 08:01 83 100 02/21/23 06:50 98.0 F 78 17 126/81 99 02/21/23 01:19 98.4 F 86 18 126/84 99 02/20/23 21:33 82 02/20/23 21:23 82 02/20/23 20:02 98.2 F 81 18 109/62 100 Intake and Output 02/21/23 02/21/23 02/21/23 06:59 14:59 22:59 Output Total 250 900 Balance -250 -900 Output: Urine 250 900 Other: Voiding Method External Catheter # Bowel Movements 1 Weight 72.5 kg Results 02/20/23 13:15 02/20/23 13:15 Current Medications Generic Name Dose Route Start Last Admin Trade Name Freq PRN Reason Stop Dose Admin Albuterol/Ipratropium 3 ml 02/18/23 20:00 02/21/23 15:58 Ipratropium-Albuterol 3 Ml Neb INHALATION 3 ml RT-QID SHAR Administration Ascorbic Acid 500 mg 02/19/23 09:00 02/21/23 09:00 Ascorbic Acid 500 Mg Tab PEG/G-TUBE 500 mg DAILY SHAR Administration Budesonide 0.5 mg 02/18/23 20:00 02/21/23 08:01 Budesonide 0.5 Mg/2 Ml Nebu INHALATION 0.5 mg RT-BID SHAR Administration Divalproex Sodium 250 mg 02/18/23 21:00 02/21/23 00:13 Divalproex Sprinkle 125 Mg Cap.Sprink PEG/G-TUBE 250 mg HS SHAR Administration Divalproex Sodium 500 mg 02/19/23 09:00 02/21/23 08:59 Divalproex Sprinkle 125 Mg Cap.Sprink PEG/G-TUBE 500 mg DAILY SHAR Administration Furosemide 40 mg 02/20/23 14:45 02/21/23 08:59 Furosemide 10 Mg/Ml 4 Ml Vial IV 40 mg DAILY SHAR Administration Haloperidol 2.5 mg 02/18/23 18:30 02/21/23 08:59 Haloperidol 5 Mg Tab PEG/G-TUBE 2.5 mg Q12H SHAR Administration Piperacillin Sod/Tazobactam 100 mls @ 25 mls/hr 02/20/23 16:00 02/21/23 16:32 Sod 3.375 gm/ Sodium Chloride IVPB 25 mls/hr Q8HR SHAR Administration Protocol Lacosamide 100 mg 02/18/23 21:00 02/21/23 09:01 Lacosamide 50 Mg Tablet PEG/G-TUBE 100 mg BID SHAR Administration Methylprednisolone Sodium Succinate 40 mg 02/19/23 00:00 02/21/23 16:32 Methylprednisolone Sod Succi 40 Mg/Ml 1 Ml Vial IV 40 mg Q8HR SHAR Administration Metoprolol Tartrate 25 mg 02/18/23 21:00 02/21/23 09:00 Metoprolol Tartrate 25 Mg Tab PEG/G-TUBE 25 mg BID SHAR Administration Naloxone HCl 0.2 mg 02/18/23 02:27 Naloxone 0.4 Mg/Ml 1 Ml Vial IV Q2M PRN Opioid Reversal Ondansetron HCl 4 mg 02/18/23 18:23 Ondansetron Odt 4 Mg Tab PO Q8HR PRN Nausea Risperidone 1 mg 02/18/23 21:00 02/21/23 00:15 Risperidone 1 Mg Tab PEG/G-TUBE 1 mg HS SHAR Administration Sertraline HCl 100 mg 02/19/23 09:00 02/21/23 09:00 Sertraline 100 Mg Tab PEG/G-TUBE 100 mg DAILY SHAR Administration Sertraline HCl 25 mg 02/19/23 09:00 02/20/23 08:03 Sertraline 25 Mg Tab PEG/G-TUBE 25 mg DAILY SHAR Administration Intake and Output 02/21/23 02/21/23 02/21/23 06:59 14:59 22:59 Output Total 250 900 Balance -250 -900 Output: Urine 250 900 Other: Voiding Method External Catheter # Bowel Movements 1 Weight 72.5 kg 02/20/23 13:15 02/20/23 13:15
[2023-02-22] MEDS: IPRATROPIUM-ALBUTEROL 3 ML NEB INHALATION SCH ×4 (07:49→21:33)
[2023-02-22] MEDS: BUDESONIDE 0.5 MG/2 ML NEBU INHALATION SCH ×2 (07:49→21:33)
[2023-02-22] MEDS: PIPERACILLIN-TAZOBACTAM 3.375 GM in SODIUM CHLORIDE 0.9% 100 ML IVPB SCH (08:54)
[2023-02-22] MEDS: methylPREDNISolone SOD SUCCI 40 MG/ML 1 ML VIAL IV SCH ×3 (08:54→23:37)
[2023-02-22] MEDS: FUROSEMIDE 10 MG/ML 4 ML VIAL IV SCH (08:55)
[2023-02-22] MEDS: DIVALPROEX SPRINKLE 125 MG CAP.SPRINK PEG/G-TUBE SCH ×2 (08:56→22:01)
[2023-02-22] MEDS: METOPROLOL TARTRATE 25 MG TAB PEG/G-TUBE SCH ×2 (08:57→22:01)
[2023-02-22] MEDS: ASCORBIC ACID 500 MG TAB PEG/G-TUBE SCH (08:57)
[2023-02-22] MEDS: LACOSAMIDE 50 MG TABLET PEG/G-TUBE SCH ×2 (08:57→22:01)
[2023-02-22] MEDS: SERTRALINE 25 MG TAB PEG/G-TUBE SCH (08:57)
[2023-02-22] MEDS: haloperidoL 5 MG TAB PEG/G-TUBE SCH ×2 (08:57→22:17)
[2023-02-22] MEDS: SERTRALINE 100 MG TAB PEG/G-TUBE SCH (08:57)
--- NOTE | 2023-02-22 11:16 | P.PN ---
Subjective Progress Note Date: 02/22/23 Principal diagnosis: Acute on chronic hypoxic respiratory failure appears to be related to pneumonia as well as baseline COPD, oxygenation continued to improve on 2 L oxygen doing better Pneumonia likely gram-negative possibly aspiration related, continue Zosyn Congestive heart failure acute on chronic systolic and diastolic heart failure continue gentle diuresis monitor clinical symptoms closely Status post PEG tube due to poor swallowing function as well as prior CVA Hypertension on antihypertensive agents Dyslipidemia on high intensity statins 02/22/2023, overall breathing status still marginal, over she remains afebrile with temperature of 98, heart rate is 83, blood pressure is stable 140/80, respiratory rate is high teens to low 20s, on oxygen saturation nasal cannula 2 L R 100% now Ammann patient remains on bronchodilators and inhaled corticosteroids as well as Solu-Medrol appears to be tolerating very well patient remains on broad-spectrum antibiotics with Zosyn, blood culture however positive for gram-positive cocci in clusters, ID service has been following Patient is a 62-year-old -[place] female with a past medical history significant for hypertension hyperlipidemia osteoarthritis CVA TIA history of recurrent UTI the patient has been brought into the hospital 2 days ago for evaluation of fever confusion and hypoxemia currently patient's symptom has been going on for a day before presentation to the hospital patient denies any he adache or URI symptoms the patient did have mild cough but no sputum production. Denies having any nausea vomiting or choking on the food no abdominal pain or any diarrhea on presentation to the hospital the patient was afebrile and no fever has been recorded subsequently patient was not tachycardic hypotensive, however patient did have hypoxemia with O2 sats of 80% on room air on presentation to the hospital currently 100% on 2 L nasal cannula patient did have a normal white count kidney function was normal AST was elevated urine has been negative urine toxin positive for oxycodone influenza RSV and COVID testing was negative patient did have a chest x-ray right mid and lower lung pneumonia patient also have a elevated D-dimer and CT angiogram of the chest no PE did shows worsening lung infiltrate suggestive of worsening pulmonary edema patient has been started on Rocephin and Zithromax infectious disease was consulted for further management of antibiotic therapy Objective - Vital Signs Vital signs: Vital Signs Temp 98.7 F 02/22/23 07:24 Pulse 83 07/30/23 08:01 Resp 20 02/22/23 07:24 BP 141/81 02/22/23 07:24 Pulse Ox 100 02/22/23 07:52 FiO2 Intake & Output 02/21/23 02/22/23 02/22/23 18:59 06:59 18:59 Output Total 900 100 Balance -900 -100 Weight 72.5 kg Output: Urine 900 100 Other: Voiding Method External Catheter External Catheter # Voids 1 # Bowel Movements 1 - Exam Limitations: no limitations General appearance: alert, in no apparent distress Head exam: Present: atraumatic, normocephalic Eye exam: Present: normal appearance, PERRL ENT exam: Present: mucous membranes dry Neck exam: Present: normal inspection. Absent: tenderness, meningismus Respiratory exam: Present: respiratory distress, rhonchi, decreased breath sounds Cardiovascular Exam: Present: regular rate, normal rhythm GI/Abdominal exam: Present: soft. Absent: distended, tenderness, guarding Extremities exam: Present: normal capillary refill Neurological exam: Present: alert Skin exam: Present: warm, dry, intact - Labs CBC & Chem 7: 02/20/23 13:15 02/20/23 13:15 Labs: Microbiology - Last 24 Hours (Table) 02/18/23 04:00 Blood Culture Gram Stain - Preliminary Blood Blood Culture - Preliminary 02/18/23 01:10 Blood Culture - Preliminary Blood Assessment and Plan Assessment: Acute on chronic hypoxic respiratory failure appears to be related to pneumonia as well as baseline COPD, oxygenation continued to improve on 2 L oxygen doing better Pneumonia likely gram-negative possibly aspiration related, continue Zosyn Gram-positive bacteremia repeat Blood cultures positive for gram-positive cocci in clusters patient is on IV Zosyn will defer to his expertise in infectious disease about starting vancomycin Congestive heart failure acute on chronic systolic and diastolic heart failure continue gentle diuresis monitor clinical symptoms closely Status post PEG tube due to poor swallowing function as well as prior CVA Hypertension on antihypertensive agents Dyslipidemia on high intensity statins Plan: As above Time with Patient: Greater than 30
[2023-02-22] MEDS ORDERED: VANCOMYCIN IV PER PHARMACY 1 EACH MISC MISCELLANE PRN (13:02)
--- NOTE | 2023-02-22 13:04 | P.PN ---
Subjective Progress Note Date: 02/22/23 Principal diagnosis: Pneumonia Patient is a 62-year-old -Citizen Of [place] female with a past medical history significant for hypertension hyperlipidemia osteoarthritis CVA TIA history of recurrent UTI the patient has been brought into the hospital 2 days ago for evaluation of fever confusion and hypoxemia , patient has been diagnosed with pneumonia and started on antibiotic. On today's evaluation that is 02/22/2023, the patient continues to be afebrile, patient is breathing comfortably on 3L nasal cannula oxygen , patient denies any chest pain, the patient did have occasional cough no nausea no vomiting no abdominal pain or diarrhea, no new symptoms No CBC was done today patient blood cultures coming back positive with gram- positive cocci in cluster Objective - Vital Signs Vital signs: Vital Signs Temp 98.7 F 02/22/23 07:24 Pulse 82 02/22/23 11:47 Resp 20 02/22/23 07:24 BP 141/81 02/22/23 07:24 Pulse Ox 100 02/22/23 07:52 FiO2 Intake & Output 02/21/23 02/22/23 02/22/23 18:59 06:59 18:59 Output Total 900 100 Balance -900 -100 Weight 72.5 kg Output: Urine 900 100 Other: Voiding Method External Catheter External Catheter # Voids 1 # Bowel Movements 1 - Exam GENERAL DESCRIPTION: Middle-age female lying in bed in no distress RESPIRATORY SYSTEM: Unlabored breathing , decreased breath sounds at bases HEART: S1 S2 regular rate and rhythm , ABDOMEN: Soft , no tenderness EXTREMITIES: No edema feet - Labs CBC & Chem 7: 02/20/23 13:15 02/20/23 13:15 Labs: Microbiology - Last 24 Hours (Table) 02/18/23 04:00 Blood Culture Gram Stain - Preliminary Blood Blood Culture - Preliminary 02/18/23 01:10 Blood Culture - Preliminary Blood Assessment and Plan (1) Pneumonia Current Visit: No Status: Acute Code(s): J18.9 - PNEUMONIA, UNSPECIFIED ORGANISM SNOMED Code(s): 543992320 (2) Bacteremia Current Visit: No Status: Acute Code(s): R78.81 - BACTEREMIA SNOMED Code(s): 9350811 Plan: 1patient was in the hospital with hypoxemia increasing shortness of breath initial chest x-ray was suggestive of pneumonia patient however did not have significant respiratory symptoms of cough or sputum production patient is not r unning any fever White count is normal question of possible cardiac etiology rather than pneumonia. 2patient did have elevated CRP of 4.7 procalcitonin is elevated at 0.48 and also elevated NT proBNP 3Patient blood cultures, a positive with gram-positive cocci in cluster we will add vancomycin, we will switch Zosyn to cefepime to decrease risk of nephrotoxicity and monitor clinical course closely Dictation was produced using [employer] dictation software. please excuse any grammatical, word or spelling errors. Time with Patient: Less than 30
[2023-02-22] MEDS: VANCOMYCIN 1,250 MG in SODIUM CHLORIDE 0.9% 250 ML IVPB SCH (14:27)
--- NOTE | 2023-02-22 15:18 | P.PN ---
Subjective Progress Note Date: 02/22/23 Subjective: Patient is seen and examined at bedside. She is mostly bedbound and less conversational. Poor inspiratory effort. Mild crackles audible in lung [place]. Heart shows a creatinine of 0.65. PHYSICAL EXAMINATION Vital signs reviewed. CONSTITUTIONAL: No apparent distress. CHEST EXAMINATION: Poor inspiratory effort, reduced air entry bilateral lower lung [place], mild crackles HEART EXAMINATION: Regular rate and rhythm. S1, S2 heard. No murmurs, gallops or rub. ABDOMEN: PEG tube in place. Normal soft. No tenderness and bowel sounds are audible EXTREMITIES: no lower extremity edema and no calf tenderness. NEUROLOGIC EXAMINATION: Patient is awake, alert and oriented x3. Detailed neuro exam was not performed ASSESSMENT Pneumonia with gram-negative bacteria on IV antibiotics Acute on chronic hypoxic respiratory failure Chronic COPD on 2 L oxygen History of CVA with swallowing difficulty status post acute Hypertension Dyslipidemia PLAN Obtain an echocardiogram Continue metoprolol 25 mg daily Discontinue IV Lasix 40 mg after today's dose. Start by mouth Lasix 40 mg from tomorrow HISTORY OF PRESENTING ILLNESS Patient is a 62-year-old -[place] female with past medical history of hypertension, dyslipidemia, CVA, recurrent UTI. She was brought to the hospital days ago to get evaluated for fever, confusion, hypoxemia and shortness of breath. In this hospital stay she was treated for pneumonia. Sputum culture was positive for gram-negative bacteria. Cardiology was consulted for evaluation for congestive heart failure. Patient denies any prior cardiovascular history. She denies having any prior cardiac stenting or prior diagnosis of atrial fibrillation or congestive heart failure. Prior to coming to the hospital patient denied having any symptoms of orthopnea or paroxysmal nocturnal dyspnea. At present patient denies any chest pain or chest pressure at rest. She denies any orthopnea. She denies any palpitations lightheadedness or dizziness. DIAGNOSTICS EKG reveals sinus rhythm with nonspecific ST changes. Objective - Vital Signs Vital signs: Vital Signs Temp 98.2 F 02/22/23 13:13 Pulse 80 02/22/23 13:13 Resp 19 02/22/23 13:13 BP 143/96 02/22/23 13:13 Pulse Ox 100 02/22/23 13:13 FiO2 Intake & Output 02/21/23 02/22/23 02/22/23 18:59 06:59 18:59 Output Total 900 100 Balance -900 -100 Weight 72.5 kg Output: Urine 900 100 Other: Voiding Method External Catheter External Catheter Diaper # Voids 1 3 # Bowel Movements 1 1 - Labs CBC & Chem 7: 02/20/23 13:15 02/20/23 13:15 Labs: Microbiology - Last 24 Hours (Table) 02/18/23 04:00 Blood Culture Gram Stain - Preliminary Blood Blood Culture - Preliminary 02/18/23 01:10 Blood Culture - Preliminary Blood
--- NOTE | 2023-02-22 15:32 | US ---
EXAMINATION TYPE: US venous doppler duplex LE BI DATE OF EXAM: 02/22/2023 3:18 PM Exam done portable COMPARISON: NONE CLINICAL INDICATION: Female, 62 years old with history of dvt; SIDE PERFORMED: Bilateral TECHNIQUE: The lower extremity deep venous system is examined utilizing real time linear array sonog dexter with graded compression, doppler sonography and color-flow sonography. VESSELS IMAGED: Common Femoral Vein Deep Femoral Vein Greater Saphenous Vein * Femoral Vein Popliteal Vein Small Saphenous Vein * Proximal Calf Veins (* superficial vessels) Difficult and limited study due to leg swelling, edema, patient in pain and unable to position her legs correctly for exam Right Leg: Positive for DVT in EIV, CFV, DFV and prox FV, popliteal vein not imaged due to above robertson itations Left Leg: Visualized portions appear negative for DVT, unable to do compression images of popliteal vein due to above limitations IMPRESSION: Limited examination due to /Edema. 1. Positive for deep venous thrombosis of the right external iliac vein, common femoral vein, deep fe moral vein, and proximal femoral vein. The popliteal vein was not imaged due to above limitations. 2. No ultrasound evidence for deep venous thrombosis of the visualized left lower extremity. Unable t o do compression images of the left popliteal vein secondary to above limitations. Findings relayed at 3:29 PM via perfect serve on 02/22/2023 to the ordering physician.
[2023-02-22] MEDS: CEFEPIME 2 GM in SODIUM CHLORIDE 0.9% 100 ML IVPB SCH (22:00)
[2023-02-22] MEDS: risperiDONE 1 MG TAB PEG/G-TUBE SCH (22:18)
[2023-02-22] MEDS: ENOXAPARIN 40 MG/0.4 ML SYRINGE SQ SCH (22:37)
--- NOTE | 2023-02-23 | PN ---
PROGRESS NOTE A 62-year-old -[place] female. She is on Depakote Sprinkles for seizures, cefepime for pneumonia, to be seen by Pulmonary and Infectious Disease. She is on vancomycin for pneumonia. Pneumonia appears to be getting better. Her son is concerned about her leg swelling and edema, which is much larger than normal. She is on breathing treatments. He says she is feeling better. Hemoglobin is 10 7, white count 5.4, BUN is 42, creatinine 0.65, GFR is over 90. Continue on broad-spectrum antibiotics. She has elevated procalcitonin. Do ultrasound of the legs. Make sure there is no significant blood clot in the legs. Her wounds on her legs are greatly improved. Integument shows there is some mild healing wound on the posterior calf of the right leg. Lungs, transmitted upper sounds. Cardiovascular, S1, S2. Prognosis guarded. Please see further orders. Possible discharge home in next few days with or without ultrasound of the leg to rule out any significant edema. Do a BNP check for heart failure. She remains on 3 L of oxygen. Hypoxemia is improving. Elevated BNP vancomycin and cefepime, and we will give her IV Lasix. Check for BNP. Prognosis guarded. MMODL / IJN: [id number] /
--- NOTE | 2023-02-23 02:21 | CT ---
EXAM: CT Angiography Chest With Intravenous Contrast CLINICAL HISTORY: ITS.REASON CT Reason: pe TECHNIQUE: Axial computed tomographic angiography images of the chest with intravenous contrast. CTDI is 15.8 mGy and DLP is 290.2 mGy-cm. This CT exam was performed using one or more of the following dose reduction techniques: automated exposure control, adjustment of the mA and/or kV according to patient size, and/or use of iterative reconstruction technique. MIP reconstructed images were created and reviewed. COMPARISON: No relevant prior studies available. FINDINGS: Pulmonary arteries: Unremarkable. No pulmonary embolism. Aorta: No acute findings. No thoracic aortic aneurysm. Lungs: Diffuse interstitial infiltrates. No mass. Pleural space: Bilateral pleural effusions. No pneumothorax. Heart: cardiomegaly. No significant pericardial effusion. No evidence of RV dysfunction. Bones/joints: No acute fracture. No dislocation. Soft tissues: Unremarkable. Lymph nodes: Unremarkable. No enlarged lymph nodes. IMPRESSION: Findings consistent with CHF bilateral pleural effusions.
[2023-02-23] MEDS: VANCOMYCIN 1,250 MG in SODIUM CHLORIDE 0.9% 250 ML IVPB SCH ×2 (02:50→18:30)
[2023-02-23 08:02] LABS: Basophils # (A) 0.1 k/uL (0-0.2); Basophils % (A) 1 %; Eosinophils # (A) 0.1 k/uL (0-0.7); Eosinophils % (A) 1 %; HCT 27.7 % (34.0-46.0); HGB 9.3 gm/dL (11.4-16.0); Lymphocytes % (A) 15 %; MCH 26.9 pg (25.0-35.0); MCHC 33.4 g/dL (31.0-37.0); MCV 80.4 fL (80.0-100.0); Mean Platelet Volume 9.2; Monocytes # (A) 0.5 k/uL (0-1.0); Monocytes % (A) 7 %; Neutrophils # (A) 5.2 k/uL (1.3-7.7); Neutrophils % (A) 76 %; Platelet Count 169 k/uL (150-450); Poikilocytosis Slight; RBC 3.45 m/uL (3.80-5.40); RDW 15.5 % (11.5-15.5); WBC 6.8 k/uL (3.8-10.6)
[2023-02-23] MEDS: BUDESONIDE 0.5 MG/2 ML NEBU INHALATION SCH ×2 (08:12→20:50)
[2023-02-23] MEDS: IPRATROPIUM-ALBUTEROL 3 ML NEB INHALATION SCH ×4 (08:12→20:50)
[2023-02-23] MEDS: FUROSEMIDE 10 MG/ML 4 ML VIAL IV SCH (08:34)
[2023-02-23 08:35] LABS: ALT 31 U/L (4-34); AST 46 U/L (14-36); African American GFR (CKD) >90 (>60 ml/min/1.73 sqM); Albumin 2.6 g/dL (3.5-5.0); Albumin/Globulin Ratio 0.8; Alkaline Phosphatase 218 U/L (38-126); Anion Gap 7 mmol/L; Blood Urea Nitrogen 43 mg/dL (7-17); Calcium 8.8 mg/dL (8.4-10.2); Carbon Dioxide 18 mmol/L (22-30); Chloride 114 mmol/L (98-107); Globulin 3.1 g/dL; Glucose 141 mg/dL (74-99); Non-African American GFR(CKD) 82 (>60 ml/min/1.73 sqM); Potassium 4.5 mmol/L (3.5-5.1); Sodium 139 mmol/L (137-145); Total Bilirubin 0.4 mg/dL (0.2-1.3); Total Protein 5.7 g/dL (6.3-8.2)
[2023-02-23] MEDS: CEFEPIME 2 GM in SODIUM CHLORIDE 0.9% 100 ML IVPB SCH ×2 (08:35→20:44)
[2023-02-23] MEDS: methylPREDNISolone SOD SUCCI 40 MG/ML 1 ML VIAL IV SCH ×3 (08:35→23:29)
[2023-02-23] MEDS: DIVALPROEX SPRINKLE 125 MG CAP.SPRINK PEG/G-TUBE SCH ×2 (08:36→20:43)
[2023-02-23] MEDS: SERTRALINE 100 MG TAB PEG/G-TUBE SCH (08:36)
[2023-02-23] MEDS: LACOSAMIDE 50 MG TABLET PEG/G-TUBE SCH ×2 (08:36→20:43)
[2023-02-23] MEDS: ENOXAPARIN 40 MG/0.4 ML SYRINGE SQ SCH (08:36)
[2023-02-23] MEDS: ASCORBIC ACID 500 MG TAB PEG/G-TUBE SCH (08:37)
[2023-02-23] MEDS: SERTRALINE 25 MG TAB PEG/G-TUBE SCH (08:38)
[2023-02-23] MEDS: METOPROLOL TARTRATE 25 MG TAB PEG/G-TUBE SCH ×2 (08:46→20:44)
[2023-02-23] MEDS: haloperidoL 5 MG TAB PEG/G-TUBE SCH ×2 (09:05→20:44)
--- NOTE | 2023-02-23 11:20 | P.PN ---
Subjective HISTORY OF PRESENT ILLNESS: This is a 62-year-old female who was admitted to the hospital secondary to pneumonia. Patient is resting comfortably in bed. She denies chest pain or pressure. Denies SOB. She is on IV lasix 40mg daily. Vital signs are stable. PHYSICAL EXAM: VITAL SIGNS: Reviewed. GENERAL: Well-developed in no acute distress. PEG tube noted. NECK: Supple. No JVD or thyromegaly LUNGS: Respirations even and unlabored. Lungs essentially clear to auscultation bilaterally. HEART: Regular rate and rhythm. S1 and S2 heard. EXTREMITIES: Normal range of motion. No clubbing or cyanosis. Peripheral pulses intact. 2+ bilateral lower extremity edema ASSESSMENT: Pneumonia Acute on chronic hypoxic respiratory failure Acute heart failure, type unknown, echo pending History of CVA History of recurrent UTI Hypertension Hyperlipidemia History of dysphagia with PEG tube placement PLAN: Continue current cardiac medications Continue IV Lasix for lower extremity edema. Possibly transition to oral dosing tomorrow. Monitor kidney function 2-D echo has been ordered. Await results. Further recommendations pending patient's course Nurse practitioner note has been reviewed by physician. Signing provider agrees with the documented findings, assessment, and plan of care. Objective - Vital Signs Vital signs: Vital Signs Temp 97.9 F 02/23/23 07:56 Pulse 92 02/23/23 08:23 Resp 18 02/23/23 07:56 BP 132/89 02/23/23 07:56 Pulse Ox 99 02/23/23 08:15 FiO2 Intake & Output 02/22/23 02/23/23 02/23/23 18:59 06:59 18:59 Output Total 600 750 Balance -600 -750 Weight 64.5 kg Output: Urine 600 750 Other: Voiding Method Diaper External Catheter External Catheter # Voids 4 # Bowel Movements 1 - Labs CBC & Chem 7: 02/23/23 07:15 02/23/23 07:15 Labs: Abnormal Lab Results - Last 24 Hours (Table) 02/23/23 02/23/23 Range/Units 07:15 07:15 RBC 3.45 L (3.80-5.40) m/uL Hgb 9.3 L (11.4-16.0) gm/dL Hct 27.7 L (34.0-46.0) % Chloride 114 H (98-107) mmol/L Carbon Dioxide 18 L (22-30) mmol/L BUN 43 H (7-17) mg/dL Glucose 141 H (74-99) mg/dL AST 46 H (14-36) U/L Alkaline Phosphatase 218 H (38-126) U/L Total Protein 5.7 L (6.3-8.2) g/dL Albumin 2.6 L (3.5-5.0) g/dL
[2023-02-23 12:13] LABS: Glucose,Whole Blood 109 mg/dL (70-110)
--- NOTE | 2023-02-23 12:44 | P.PN ---
Subjective Progress Note Date: 02/23/23 Principal diagnosis: Acute on chronic hypoxic respiratory failure appears to be related to pneumonia as well as baseline COPD, oxygenation continued to improve on 2 L oxygen doing better Pneumonia likely gram-negative possibly aspiration related, continue Zosyn Congestive heart failure acute on chronic systolic and diastolic heart failure continue gentle diuresis monitor clinical symptoms closely Status post PEG tube due to poor swallowing function as well as prior CVA Hypertension on antihypertensive agents Dyslipidemia on high intensity statins 02/23/2023, patient seen and evaluated examined during the rounds labs reviewed medications and Plan discussed hemodynamics status overall stable, white cell count 6.8 hemoglobin and hematocrit 9.3/27 chemistry within normal limit BUN/creatinine is 43/177, patient remains on bronchodilator therapy tolerating well so on broad-spectrum antibiotics with cefepime 2 g every 12, patient has been on Lovenox 60 mg every 12 hourly along with IV steroids 40 every 8, CT ARCHIE done earlier today no filling defect was seen because consistent with pleural effusion and CHF, however right leg duplex ultrasound positive for DVT patient has been on full anticoagulation with Lovenox 02/22/2023, overall breathing status still marginal, over she remains afebrile with temperature of 98, heart rate is 83, blood pressure is stable 140/80, respiratory rate is high teens to low 20s, on oxygen saturation nasal cannula 2 L R 100% now Ammann patient remains on bronchodilators and inhaled corticosteroids as well as Solu-Medrol appears to be tolerating very well patient remains on broad-spectrum antibiotics with Zosyn, blood culture however positive for gram-positive cocci in clusters, ID service has been following, patient oxygen saturation 99% 1 L she is afebrile Patient is a 62-year-old -[place] female with a past medical history significant for hypertension hyperlipidemia osteoarthritis CVA TIA history of recurrent UTI the patient has been brought into the hospital 2 days ago for evaluation of fever confusion and hypoxemia currently patient's symptom has been going on for a day before presentation to the hospital patient denies any headache or URI symptoms the patient did have mild cough but no sputum productio n. Denies having any nausea vomiting or choking on the food no abdominal pain or any diarrhea on presentation to the hospital the patient was afebrile and no fever has been recorded subsequently patient was not tachycardic hypotensive, however patient did have hypoxemia with O2 sats of 80% on room air on presentation to the hospital currently 100% on 2 L nasal cannula patient did have a normal white count kidney function was normal AST was elevated urine has been negative urine toxin positive for oxycodone influenza RSV and COVID testing was negative patient did have a chest x-ray right mid and lower lung pneumonia patient also have a elevated D-dimer and CT angiogram of the chest no PE did shows worsening lung infiltrate suggestive of worsening pulmonary edema patient has been started on Rocephin and Zithromax infectious disease was consulted for further management of antibiotic therapy Objective - Vital Signs Vital signs: Vital Signs Temp 97.9 F 02/23/23 07:56 Pulse 96 02/23/23 11:22 Resp 18 02/23/23 07:56 BP 132/89 02/23/23 07:56 Pulse Ox 99 02/23/23 08:15 FiO2 Intake & Output 02/22/23 02/23/23 02/23/23 18:59 06:59 18:59 Output Total 600 1550 Balance -600 -1550 Weight 64.5 kg Output: Urine 600 1550 Other: Voiding Method Diaper External Catheter External Catheter # Voids 4 # Bowel Movements 1 - Exam Limitations: no limitations General appearance: alert, in no apparent distress Head exam: Present: atraumatic, normocephalic Eye exam: Present: normal appearance, PERRL ENT exam: Present: mucous membranes dry Neck exam: Present: normal inspection. Absent: tenderness, meningismus Respiratory exam: Present: respiratory distress, rhonchi, decreased breath sounds Cardiovascular Exam: Present: regular rate, normal rhythm GI/Abdominal exam: Present: soft. Absent: distended, tenderness, guarding Extremities exam: Present: normal capillary refill Neurological exam: Present: alert Skin exam: Present: warm, dry, intact - Labs CBC & Chem 7: 02/23/23 07:15 02/23/23 07:15 Labs: Abnormal Lab Results - Last 24 Hours (Table) 02/23/23 02/23/23 Range/Units 07:15 07:15 RBC 3.45 L (3.80-5.40) m/uL Hgb 9.3 L (11.4-16.0) gm/dL Hct 27.7 L (34.0-46.0) % Chloride 114 H (98-107) mmol/L Carbon Dioxide 18 L (22-30) mmol/L BUN 43 H (7-17) mg/dL Glucose 141 H (74-99) mg/dL AST 46 H (14-36) U/L Alkaline Phosphatase 218 H (38-126) U/L Total Protein 5.7 L (6.3-8.2) g/dL Albumin 2.6 L (3.5-5.0) g/dL Assessment and Plan Assessment: DVT right lower extremity on Lovenox Acute on chronic hypoxic respiratory failure appears to be related to pneumonia and congestive heart failure as well as baseline COPD, oxygenation continued to improve on 2 L oxygen doing better Bilateral pleural effusion related to volume overload and congestive heart failure continue gentle diuresis Pneumonia likely gram-negative possibly aspiration related, continue Zosyn Gram-positive bacteremia repeat Blood cultures positive for gram-positive cocci in clusters patient is on IV Zosyn will defer to his expertise in infectious disease about starting vancomycin Congestive heart failure acute on chronic systolic and diastolic heart failure continue gentle diuresis monitor clinical symptoms closely Status post PEG tube due to poor swallowing function as well as prior CVA Hypertension on antihypertensive agents Dyslipidemia on high intensity statins Plan: As above Time with Patient: Greater than 30
[2023-02-23 13:59] VITALS: BMI 26.9
--- NOTE | 2023-02-23 17:04 | CA ---
Transthoracic Echo Report Name: Jeane Urbano Age: 62 Gender: F : 1960 Exam Date: 02/23/2023 13:20 Exam Location: [place] [facility] Ht (in): 61 Wt (lb): 142 Ordering Physician: Sandra Dunbar Attending/Referring Phys: [id number], Bettina Neonatal Social Worker Alexx Harris Procedure CPT: Indications: LV function Cardiac Hx: Technical Quality: fair Contrast 1: Total Dose (mL): Contrast 2: Total Dose (mL): MEASUREMENTS (Male / Female) Normal Values 2D ECHO LV Diastolic Diameter PLAX 3.7 cm 4.2 - 5.9 / 3.9 - 5.3 cm LV Systolic Diameter PLAX 2.5 cm IVS Diastolic Thickness 1.0 cm 0.6 - 1.0 / 0.6 - 0.9 cm LVPW Diastolic Thickness 1.1 cm 0.6 - 1.0 / 0.6 - 0.9 cm LV Relative Wall Thickness 0.6 RV Internal Dim ED PLAX 2.7 cm LVOT Diameter 2.0 cm Aortic Root Diameter 2.6 cm LA Systolic Diameter LX 3.4 cm 3.0 - 4.0 / 2.7 - 3.8 cm LV Diastolic Volume MOD BP 41.0 cm??? 67 - 155 / 56 - 104 cm??? LV Systolic Volume MOD BP 18.5 cm??? 22 - 58 / 19 - 49 cm??? LV Ejection Fraction MOD BP 54.9 % >= 55 % LV Diastolic Volume MOD 4C 40.0 cm??? LV Systolic Volume MOD 4C 15.8 cm??? LV Ejection Fraction MOD 4C 60.6 % LV Diastolic Length 4C 6.1 cm LV Systolic Length 4C 5.2 cm LV Diastolic Volume MOD 2C 41.3 cm??? LV Systolic Volume MOD 2C 20.2 cm??? LV Ejection Fraction MOD 2C 51.1 % LV Diastolic Length 2C 6.2 cm LV Systolic Length 2C 5.6 cm LA Volume 51.7 cm??? 18 - 58 / 22 - 52 cm??? Ascending Aorta Diameter 2.6 cm DOPPLER AV Peak Velocity 113.1 cm/s AV Peak Gradient 5.1 mmHg AI Peak Velocity 415.8 cm/s AI Peak Gradient 69.2 mmHg AI Pressure Half Time 606.4 ms LVOT Peak Velocity 97.7 cm/s LVOT Peak Gradient 3.8 mmHg AV Area Cont Eq pk 2.7 cm??? MV Peak Velocity 122.4 cm/s MV Peak Gradient 6.0 mmHg MV Mean Velocity 59.5 cm/s MV Mean Gradient 1.9 mmHg MV Velocity Time Integral 28.3 cm MR Peak Velocity 589.9 cm/s MR Peak Gradient 139.2 mmHg Mitral E Point Velocity 91.3 cm/s Mitral A Point Velocity 105.7 cm/s Mitral E to A Ratio 0.9 MV Deceleration Time 128.1 ms MV E' Velocity 6.5 cm/s Mitral E to MV E' Ratio 14.1 TR Peak Velocity 279.3 cm/s TR Peak Gradient 31.2 mmHg Right Ventricular Systolic Press 36.4 mmHg PV Peak Velocity 79.5 cm/s PV Peak Gradient 2.5 mmHg FINDINGS Left Ventricle Normal LV size and wall thickness. Left ventricular ejection fraction is estimated at 50-55%. Right Ventricle Normal right ventricular size. RVSP= 42mmhg. Right Atrium Normal right atrial size. Left Atrium Normal left atrial size. Mitral Valve Structurally normal mitral valve. Moderate MR. Aortic Valve Aortic valve not well visualized. No aortic regurgitation. No aortic stenosis. Tricuspid Valve Tricuspid valve not well visualized. Mild TR. Pulmonic Valve Pulmonic valve not well visualized. Pericardium Not well visualized. Aorta Normal size aortic root and proximal ascending aorta. CONCLUSIONS Left ventricular ejection fraction 50-55% RVSP 42 Moderate mitral regurgitation Mild tricuspid regurgitation No pericardial effusion Previewed by: Dr. Elvis Deng DO (Electronically Signed) Final Date: 23 February 2023 17:03
[2023-02-23 17:55] LABS: Glucose,Whole Blood 119 mg/dL (70-110)
--- NOTE | 2023-02-23 18:19 | P.CONS ---
History of Present Illness - Reason for Consult Consult date: 02/23/23 DVT Requesting physician: Mohit Harley - Chief Complaint confusion and fever - History of Present Illness Ms. 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 We were consulted with regards to DVT of RLE. Patient was brought to the Emergency center due to confusion, fever and hypoxemia. Patient has had ongoing wounds to BLE and has followed with wound care. Upon admission CT chest was negative for PE. Findings consistent with CHF and bilateral pleural effusions. patient also experiencing lower extremity edema. Dopplers of lower extremities revealed DVT of right external iliac vein, common femoral vein, deep femoral vein, and proximal femoral vein. No evidence of DVT in the left lower extremity. Patient is currently on 40 mg Lovenox daily. Counts stable, WBC 6.8, hemoglobin 9.3, platelets 169,000. Blood cultures negative thus far. Patient afebrile. Patient has been started on vancomycin and cefepime. ID following. Hem/onc hx: Patient was hospitalized at [facility] on 05/07/2022 for concerns for aspiration pneumonia. She would noticed to have microcytic anemia with elevated ferritin of 2224. Prior work-up for anemia on 07/28/2021 revealed no evidence of monoclonal gammopathy on immunofixation no monoclonal population of immunoglo bulins. Vitamin B12 and folic acid were also found to be normal at that time. At the time of our initial consultation on 05/15/2022, hemoglobin electrophoresis was recommended and was found to have an elevated hemoglobin A2 of 4.2%, which was noted to be consistent with beta thalassemia. She did receive 1 unit of packed red blood cells on 05/15/2022. Of note, it is not clear if patient received blood transfusion prior to hemoglobin electrophoresis. She was started on Aranesp injections in the hospital. Per her son-in-law, there are no known blood disorders in the family. Patient was sent for further lab testing on 06/30/22, including anemia workup, with EPO level, hemoglobin electrophoresis and obtain beta thalassemia gene testing to assess for the presence of beta thalassemia. Iron, TIBC, and iron saturation were WNL, ferritin elevated at 1914, EPO 37.24, Vit B12 and folate WNL. However, copper, hemoglobin electrophoresis, and beta thalassemia gene testing were never obtained. I lavell franz she may have component of beta thalassemia along with anemia of inflammation secondary to CKD. Review of Systems 10 point ROS is negative except as stated in the HPI Past Medical History Past Medical History: CVA/TIA, Hyperlipidemia, Hypertension, Osteoarthritis (OA) Additional Past Medical History / Comment(s): ANEMIA, CVA WITH L ARM WEAKNESS AND bilateral LEG WEAKNESS, hx. gout, PANCREATITIS, pseudoseizures, UTI, gallstones, tremors, hx multiple brain aneursyms, pressure injuries to right roberto f and left heel History of Any Multi-Drug Resistant Organisms: ESBL, MRSA Year Discovered:: 02/03/23-MRSA; 03/18/18 ESBL MDRO Source:: Right Lateral Calf- MRSA; Urine-ESBL Past Surgical History: Section, Cholecystectomy, Orthopedic Surgery Additional Past Surgical History / Comment(s): hx aneurysms- COILS AND STENTS TO BRAIN, repair tendons r/t gout BILATERAL FEET; Pain pump inserted on 04/21/22 Past Anesthesia/Blood Transfusion Reactions: No Reported Reaction Additional Past Anesthesia/Blood Transfusion Reaction / Comm: PT HAS HAD BLOOD TRANSFUSIONS FOR ANEMIA-NO REACTION. Smoking Status: Former smoker - Past Family History Sister(s) Family Medical History: Myocardial Infarction (RI) Father Family Medical History: Cancer Additional Family Medical History / Comment(s): throat, lung, and rectal cancer Mother Family Medical History: Myocardial Infarction ([place]) Additional Family Medical History / Comment(s): stroke Medications and Allergies Home Medications Medication Instructions Recorded Confirmed Type Lacosamide [Vimpat] 100 mg PEG/G-TUBE BID 07/03/22 02/18/23 History Sertraline [Zoloft] 25 mg PEG/G-TUBE DAILY 07/03/22 02/18/23 History Sertraline [Zoloft] 100 mg PEG/G-TUBE DAILY 07/03/22 02/18/23 History risperiDONE [RisperDAL] 1 mg PEG/G-TUBE HS 07/03/22 02/18/23 History Divalproex Sprinkle [Depakote 250 mg PEG/G-TUBE HS 90 Days #180 10/07/22 Rx Sprinkle] cap Divalproex Sprinkle [Depakote 500 mg PEG/G-TUBE DAILY 90 Days 10/07/22 02/18/23 Rx Sprinkle] #90 cap Ascorbic Acid [Vitamin C] 500 mg PEG/G-TUBE DAILY 02/18/23 02/18/23 History Metoprolol Tartrate [Lopressor] 25 mg PEG/G-TUBE BID 02/18/23 02/18/23 History Ondansetron Odt [Zofran Odt] 4 mg PO Q8HR PRN 02/18/23 02/18/23 History haloperidoL [Haldol] 2.5 mg PEG/G-TUBE Q12H 02/18/23 02/18/23 History Apixaban [Eliquis Starter Pack 5 - 10 mg PO DIRECTED 30 Days 02/23/23 Rx (for VTE)] #1 each Allergies Allergy/AdvReac Type Severity Reaction Status Date / Time hydromorphone [From Dilaudid] Allergy Swelling Verified 02/18/23 07:12 morphine Allergy Swelling Verified 02/18/23 07:12 Physical Exam Vitals: Vital Signs Temp Pulse Pulse Resp BP Pulse Ox 02/23/23 16:34 90 02/23/23 16:22 88 02/23/23 14:45 98.2 F 77 18 169/93 98 02/23/23 11:22 96 02/23/23 11:15 88 02/23/23 08:23 92 02/23/23 08:15 96 99 02/23/23 07:56 97.9 F 82 18 132/89 97 02/23/23 02:28 98.3 F 94 18 150/93 100 02/22/23 21:50 98.6 F 93 16 159/85 100 02/22/23 21:45 93 02/22/23 21:33 93 Intake and Output 02/23/23 02/23/23 02/23/23 06:59 14:59 22:59 Output Total 600 1550 Balance -600 -1550 Output: Urine 600 1550 Other: Voiding Method External Catheter Weight 64.5 kg 64.5 kg - Constitutional General appearance: average body habitus, no acute distress - EENT Eyes: anicteric sclerae, EOMI ENT: hearing grossly normal - Respiratory Respiratory: bilateral: CTA - Cardiovascular Rhythm: regular Heart sounds: normal: S1, S2 Abnormal Heart Sounds: no systolic murmur, no diastolic murmur, no rub, no S3 Gallop, no S4 Gallop, no click, no other leg Peripheral Edema: bilateral: 2+ - Gastrointestinal General gastrointestinal: soft, no tenderness - Integumentary Integumentary: no cyanotic, no jaundiced - Musculoskeletal contracture of LUE Musculoskeletal: generalized weakness - Psychiatric Psychiatric: A&O x's 3, appropriate affect, intact judgment & insight Results CBC & Chem 7: 02/23/23 07:15 02/23/23 07:15 Labs: Abnormal Lab Results - Last 24 Hours (Table) 02/23/23 02/23/23 Range/Units 07:15 07:15 RBC 3.45 L (3.80-5.40) m/uL Hgb 9.3 L (11.4-16.0) gm/dL Hct 27.7 L (34.0-46.0) % Chloride 114 H (98-107) mmol/L Carbon Dioxide 18 L (22-30) mmol/L BUN 43 H (7-17) mg/dL Glucose 141 H (74-99) mg/dL AST 46 H (14-36) U/L Alkaline Phosphatase 218 H (38-126) U/L Total Protein 5.7 L (6.3-8.2) g/dL Albumin 2.6 L (3.5-5.0) g/dL Microbiology - Last 24 Hours (Table) 02/18/23 01:10 Blood Culture - Final Blood CT scan - chest: report reviewed Venous US: report reviewed Assessment and Plan (1) DVT (deep venous thrombosis) Current Visit: Yes Status: Acute Priority: High Code(s): I82.409 - ACUTE EMBOLISM AND THOMBOS UNSP DEEP VN UNSP LOWER EXTREMITY SNOMED Code(s): 815200389 Plan: DVT: -Dopplers of lower extremities revealed DVT of right external iliac vein, common femoral vein, deep femoral vein, and proximal femoral vein. No evidence of DVT in the left lower extremity. CT chest was negative for PE. Patient is currently on 40 mg Lovenox daily. -Pt will be started on therapeutic dose Lovenox 60mg twice daily. Due to patient's immobilization and being bed bound she will be at increased risk for recurrence of thrombus. We would recommend life long anticoagulation. Due to hx of anemia we would recommend close monitoring of her hemoglobin. Spoke with pharmacist and verified that Eliquis can be crushed and be given through her PEG tube. Eliquis starter pack sent to [facility] with instructions on administration. manager research and development consulted for insurance prior auth -Will schedule clinic f/u with Dr. Beena Valderrama Dr. attests: I have performed H&P and developed impression and plan of care for patient, discussed with dictator. I agree with dictated note, documented as a scribe
[2023-02-23] MEDS: risperiDONE 1 MG TAB PEG/G-TUBE SCH (20:44)
[2023-02-23] MEDS: ENOXAPARIN 60 MG/0.6 ML SYRINGE SQ SCH (20:44)
[2023-02-23 21:35] LABS: Glucose,Whole Blood 159 mg/dL (70-110)
[2023-02-23] MEDS ORDERED: diphenhydrAMINE 25 MG CAP PO PRN (23:15)
[2023-02-24 06:19] LABS: Glucose,Whole Blood 156 mg/dL (70-110)
[2023-02-24] MEDS: BUDESONIDE 0.5 MG/2 ML NEBU INHALATION SCH ×2 (08:03→21:30)
[2023-02-24] MEDS: IPRATROPIUM-ALBUTEROL 3 ML NEB INHALATION SCH ×4 (08:03→21:30)
[2023-02-24] MEDS: CEFEPIME 2 GM in SODIUM CHLORIDE 0.9% 100 ML IVPB SCH ×2 (08:06→20:34)
[2023-02-24] MEDS: METOPROLOL TARTRATE 25 MG TAB PEG/G-TUBE SCH ×2 (08:07→20:34)
[2023-02-24] MEDS: SERTRALINE 100 MG TAB PEG/G-TUBE SCH (08:07)
[2023-02-24] MEDS: DIVALPROEX SPRINKLE 125 MG CAP.SPRINK PEG/G-TUBE SCH ×2 (08:07→20:34)
[2023-02-24] MEDS: ASCORBIC ACID 500 MG TAB PEG/G-TUBE SCH (08:07)
[2023-02-24] MEDS: LACOSAMIDE 50 MG TABLET PEG/G-TUBE SCH ×2 (08:07→20:34)
[2023-02-24] MEDS: ENOXAPARIN 60 MG/0.6 ML SYRINGE SQ SCH ×2 (08:07→20:34)
[2023-02-24] MEDS: SERTRALINE 25 MG TAB PEG/G-TUBE SCH (08:08)
[2023-02-24] MEDS: FUROSEMIDE 10 MG/ML 4 ML VIAL IV SCH (08:08)
[2023-02-24] MEDS: methylPREDNISolone SOD SUCCI 40 MG/ML 1 ML VIAL IV SCH ×2 (08:08→17:17)
[2023-02-24] MEDS ORDERED: VANCOMYCIN TROUGH DUE 1 EACH MISC MISCELLANE ONE (09:00)
[2023-02-24] MEDS ORDERED: FUROSEMIDE 40 MG TAB PO SCH (09:00)
[2023-02-24] MEDS: haloperidoL 5 MG TAB PEG/G-TUBE SCH (09:11)
[2023-02-24 09:43] LABS: African American GFR (CKD) >90 (>60 ml/min/1.73 sqM); Anion Gap 7 mmol/L; Blood Urea Nitrogen 52 mg/dL (7-17); Calcium 9.1 mg/dL (8.4-10.2); Carbon Dioxide 19 mmol/L (22-30); Chloride 113 mmol/L (98-107); Glucose 131 mg/dL (74-99); Non-African American GFR(CKD) >90 (>60 ml/min/1.73 sqM); Potassium 5.4 mmol/L (3.5-5.1); Sodium 139 mmol/L (137-145)
[2023-02-24] MEDS: VANCOMYCIN 1,250 MG in SODIUM CHLORIDE 0.9% 250 ML IVPB SCH (10:26)
[2023-02-24 11:08] LABS: Glucose,Whole Blood 127 mg/dL (70-110)
[2023-02-24] MEDS ORDERED: VANCOMYCIN IV PER PHARMACY 1 EACH MISC MISCELLANE PRN (11:13)
--- NOTE | 2023-02-24 12:17 | P.PN ---
Subjective HISTORY OF PRESENT ILLNESS: This is a 62-year-old female who was admitted to the hospital secondary to pneumonia. Patient is resting comfortably in bed. She denies chest pain or pressure. Denies SOB. She is on IV lasix 40mg daily. Vital signs are stable. 02/24/2023 Patient examined this morning at the bedside. Patient denies chest pain or pressure. She denies shortness of breath. She continues to have lower extremity edema although improved from yesterday. She remains on Lasix 40 mg IV daily. Creatinine today 0.65. Vital signs are stable. Echocardiogram completed revealing ejection fraction 50-55%, moderate MR, mild TR PHYSICAL EXAM: VITAL SIGNS: Reviewed. GENERAL: Well-developed in no acute distress. PEG tube noted. NECK: Supple. No JVD or thyromegaly LUNGS: Respirations even and unlabored. Lungs essentially clear to auscultation bilaterally. HEART: Regular rate and rhythm. S1 and S2 heard. EXTREMITIES: Normal range of motion. No clubbing or cyanosis. Peripheral pulses intact. 2+ bilateral lower extremity edema ASSESSMENT: Pneumonia Acute on chronic hypoxic respiratory failure Acute heart failure with preserved EF History of CVA History of recurrent UTI Hypertension Hyperlipidemia History of dysphagia with PEG tube placement PLAN: Continue current cardiac medications Continue IV Lasix for lower extremity edema. Possibly transition to oral dosing tomorrow. Monitor kidney function Further recommendations pending patient's course Nurse practitioner note has been reviewed by physician. Signing provider agrees with the documented findings, assessment, and plan of care. Objective - Vital Signs Vital signs: Vital Signs Temp 98.8 F 02/24/23 06:53 Pulse 84 02/24/23 11:17 Resp 18 02/24/23 11:17 BP 140/82 02/24/23 06:53 Pulse Ox 96 02/24/23 08:04 FiO2 Intake & Output 02/23/23 02/24/23 02/24/23 18:59 06:59 18:59 Output Total 1550 400 Balance -1550 -400 Weight 64.5 kg 65.4 kg Output: Urine 1550 400 Other: Voiding Method External Catheter External Catheter External Catheter # Bowel Movements 1 1 - Labs CBC & Chem 7: 02/23/23 07:15 02/24/23 09:14 Labs: Abnormal Lab Results - Last 24 Hours (Table) 02/23/23 02/23/23 02/24/23 Range/Units 17:52 21:34 06:18 Potassium (3.5-5.1) mmol/L Chloride (98-107) mmol/L Carbon Dioxide (22-30) mmol/L BUN (7-17) mg/dL Glucose (74-99) mg/dL POC Glucose (mg/dL) 119 H 159 H 156 H (70-110) mg/dL 02/24/23 02/24/23 Range/Units 09:14 11:07 Potassium 5.4 H (3.5-5.1) mmol/L Chloride 113 H (98-107) mmol/L Carbon Dioxide 19 L (22-30) mmol/L BUN 52 H (7-17) mg/dL Glucose 131 H (74-99) mg/dL POC Glucose (mg/dL) 127 H (70-110) mg/dL Microbiology - Last 24 Hours (Table) 02/18/23 04:00 Blood Culture Gram Stain - Preliminary Blood Blood Culture - Preliminary 02/22/23 16:01 Blood Culture - Preliminary Blood 02/18/23 01:10 Blood Culture - Final Blood
--- NOTE | 2023-02-24 13:11 | P.PN ---
Subjective Progress Note Date: 02/23/23 Principal diagnosis: Pneumonia Patient is a 62-year-old -French female with a past medical history significant for hypertension hyperlipidemia osteoarthritis CVA TIA history of recurrent UTI the patient has been brought into the hospital 2 days ago for evaluation of fever confusion and hypoxemia , patient has been diagnosed with pneumonia and started on antibiotic. On today's evaluation that is 02/23/2023, the patient remains to be afebrile, patient is breathing comfortably on room air , patient denies any chest pain, the patient did have occasional cough but no sputum production no nausea no vomiting no abdominal pain or diarrhea, no new symptoms Patient did have a white count of 6.8, creatinine 0.77 blood culture with gram- positive cocci ID pending Objective - Vital Signs Vital signs: Vital Signs Temp 97.9 F 02/23/23 07:56 Pulse 96 02/23/23 11:22 Resp 18 02/23/23 07:56 BP 132/89 02/23/23 07:56 Pulse Ox 99 02/23/23 08:15 FiO2 Intake & Output 02/22/23 02/23/23 02/23/23 18:59 06:59 18:59 Output Total 600 1550 Balance -600 -1550 Weight 64.5 kg Output: Urine 600 1550 Other: Voiding Method Diaper External Catheter External Catheter # Voids 4 # Bowel Movements 1 - Exam GENERAL DESCRIPTION: Middle-age female lying in bed in no distress RESPIRATORY SYSTEM: Unlabored breathing , decreased breath sounds at bases HEART: S1 S2 regular rate and rhythm , ABDOMEN: Soft , no tenderness EXTREMITIES: No edema feet - Labs CBC & Chem 7: 02/23/23 07:15 02/24/23 09:14 Labs: Abnormal Lab Results - Last 24 Hours (Table) 02/23/23 02/23/23 Range/Units 07:15 07:15 RBC 3.45 L (3.80-5.40) m/uL Hgb 9.3 L (11.4-16.0) gm/dL Hct 27.7 L (34.0-46.0) % Chloride 114 H (98-107) mmol/L Carbon Dioxide 18 L (22-30) mmol/L BUN 43 H (7-17) mg/dL Glucose 141 H (74-99) mg/dL AST 46 H (14-36) U/L Alkaline Phosphatase 218 H (38-126) U/L Total Protein 5.7 L (6.3-8.2) g/dL Albumin 2.6 L (3.5-5.0) g/dL Assessment and Plan (1) Pneumonia Current Visit: Yes Status: Acute Code(s): J18.9 - PNEUMONIA, UNSPECIFIED ORGANISM SNOMED Code(s): 284056161 (2) Bacteremia Current Visit: No Status: Acute Code(s): R78.81 - BACTEREMIA SNOMED Code(s): 0695543 Plan: 1patient was in the hospital with hypoxemia increasing shortness of breath initial chest x-ray was suggestive of pneumonia patient however did not have significant respiratory symptoms of cough or sputum production patient is not running any fever White count is normal question of possible cardiac etiology rather than pneumonia. 2patient did have elevated CRP of 4.7 procalcitonin is elevated at 0.48 and als o elevated NT proBNP 3Patient blood cultures, a positive with gram-positive cocci in cluster with ID sensitivities pending blood culture has been debrided document clearance of bacteremia 3we will continue with vancomycin and cefepime while waiting for the cultures to finalize Dictation was produced using [employer] dictation software. please excuse any grammatical, word or spelling errors. Time with Patient: Less than 30
--- NOTE | 2023-02-24 13:13 | P.PN ---
Subjective Progress Note Date: 02/24/23 Principal diagnosis: Pneumonia Patient is a 62-year-old -Nigerien female with a past medical history significant for hypertension hyperlipidemia osteoarthritis CVA TIA history of recurrent UTI the patient has been brought into the hospital 2 days ago for evaluation of fever confusion and hypoxemia , patient has been diagnosed with pneumonia and started on antibiotic. On today's evaluation that is 02/24/2023, the patient continues remains to be afebrile, patient is breathing comfortably on room air , patient denies any chest pain, the patient did have occasional dry cough the patient denies nausea no vomiting no abdominal pain or diarrhea, no new symptoms Patient did have a white count of 6.8 as of yesterday, creatinine 0.65 today, Vanco trough of 29.7, blood culture with gram-positive cocci ID pending Objective - Vital Signs Vital signs: Vital Signs Temp 98.8 F 02/24/23 06:53 Pulse 84 02/24/23 11:17 Resp 18 02/24/23 11:17 BP 140/82 02/24/23 06:53 Pulse Ox 96 02/24/23 08:04 FiO2 Intake & Output 02/23/23 02/24/23 02/24/23 18:59 06:59 18:59 Output Total 1550 400 Balance -1550 -400 Weight 64.5 kg 65.4 kg Output: Urine 1550 400 Other: Voiding Method External Catheter External Catheter External Catheter # Bowel Movements 1 1 - Exam GENERAL DESCRIPTION: Middle-age female lying in bed in no distress RESPIRATORY SYSTEM: Unlabored breathing , decreased breath sounds at bases HEART: S1 S2 regular rate and rhythm , ABDOMEN: Soft , no tenderness EXTREMITIES: No edema feet - Labs CBC & Chem 7: 02/23/23 07:15 02/24/23 09:14 Labs: Abnormal Lab Results - Last 24 Hours (Table) 02/23/23 02/23/23 02/24/23 Range/Units 17:52 21:34 06:18 Potassium (3.5-5.1) mmol/L Chloride (98-107) mmol/L Carbon Dioxide (22-30) mmol/L BUN (7-17) mg/dL Glucose (74-99) mg/dL POC Glucose (mg/dL) 119 H 159 H 156 H (70-110) mg/dL 02/24/23 02/24/23 Range/Units 09:14 11:07 Potassium 5.4 H (3.5-5.1) mmol/L Chloride 113 H (98-107) mmol/L Carbon Dioxide 19 L (22-30) mmol/L BUN 52 H (7-17) mg/dL Glucose 131 H (74-99) mg/dL POC Glucose (mg/dL) 127 H (70-110) mg/dL Microbiology - Last 24 Hours (Table) 02/18/23 04:00 Blood Culture Gram Stain - Preliminary Blood Blood Culture - Preliminary 02/22/23 16:01 Blood Culture - Preliminary Blood 02/18/23 01:10 Blood Culture - Final Blood Assessment and Plan (1) Pneumonia Current Visit: Yes Status: Acute Code(s): J18.9 - PNEUMONIA, UNSPECIFIED ORGANISM SNOMED Code(s): 021140553 (2) Bacteremia Current Visit: No Status: Acute Code(s): R78.81 - BACTEREMIA SNOMED Code(s): 1585748 Plan: 1patient was in the hospital with hypoxemia increasing shortness of breath initial chest x-ray was suggestive of pneumonia patient however did not have significant respiratory symptoms of cough or sputum production patient is not running any fever White count is normal question of possible cardiac etiology rather than pneumonia. 2patient did have elevated CRP of 4.7 procalcitonin is elevated at 0.48 and also elevated NT proBNP 3Patient blood cultures, a positive with gram-positive cocci in cluster with ID sensitivities pending blood culture has been debrided document clearance of bacteremia 3we will continue with vancomycin however vancomycin doses to be cut back to keep the trough around 15, we will continue cefepime while waiting for the cultures to finalize Dictation was produced using [employer] dictation software. please excuse any grammatical, word or spelling errors. Time with Patient: Less than 30
--- NOTE | 2023-02-24 16:13 | P.PN ---
Subjective Progress Note Date: 02/24/23 Principal diagnosis: Pneumonia, CHF, Right lower extremity DVT In follow-up today patient denies any bleeding, she has been transitioned over to eliquis via PEG tube, denies any side effects so far. Objective - Vital Signs Vital signs: Vital Signs Temp 98.6 F 02/24/23 13:34 Pulse 80 02/24/23 15:15 Resp 18 02/24/23 15:15 BP 139/85 02/24/23 13:34 Pulse Ox 98 02/24/23 13:34 FiO2 Intake & Output 02/23/23 02/24/23 02/24/23 18:59 06:59 18:59 Output Total 1550 400 Balance -1550 -400 Weight 64.5 kg 65.4 kg Output: Urine 1550 400 Other: Voiding Method External Catheter External Catheter External Catheter # Bowel Movements 1 1 - Constitutional General appearance: Present: average body habitus, cooperative, no acute distress - EENT Eyes: Present: anicteric sclerae, EOMI ENT: Present: hearing grossly normal - Respiratory Respiratory: bilateral: CTA - Cardiovascular Rhythm: regular - Musculoskeletal Musculoskeletal: Present: generalized weakness - Psychiatric Psychiatric: Present: A&O x's 3, appropriate affect - Labs CBC & Chem 7: 02/23/23 07:15 02/24/23 09:14 Labs: Abnormal Lab Results - Last 24 Hours (Table) 02/23/23 02/23/23 02/24/23 Range/Units 17:52 21:34 06:18 Potassium (3.5-5.1) mmol/L Chloride (98-107) mmol/L Carbon Dioxide (22-30) mmol/L BUN (7-17) mg/dL Glucose (74-99) mg/dL POC Glucose (mg/dL) 119 H 159 H 156 H (70-110) mg/dL 02/24/23 02/24/23 Range/Units 09:14 11:07 Potassium 5.4 H (3.5-5.1) mmol/L Chloride 113 H (98-107) mmol/L Carbon Dioxide 19 L (22-30) mmol/L BUN 52 H (7-17) mg/dL Glucose 131 H (74-99) mg/dL POC Glucose (mg/dL) 127 H (70-110) mg/dL Microbiology - Last 24 Hours (Table) 02/18/23 04:00 Blood Culture Gram Stain - Preliminary Blood Blood Culture - Preliminary 02/22/23 16:01 Blood Culture - Preliminary Blood 02/18/23 01:10 Blood Culture - Final Blood Assessment and Plan (1) DVT (deep venous thrombosis) Current Visit: Yes Status: Acute Priority: High Code(s): I82.409 - ACUTE EMBOLISM AND THOMBOS UNSP DEEP VN UNSP LOWER EXTREMITY SNOMED Code(s): 1280 39852 (2) Beta thalassemia minor Current Visit: No Status: Chronic Priority: Medium Code(s): D56.3 - THALASSEMIA MINOR SNOMED Code(s): 057105447 Plan: Right lower extremity DVT -Patient's eliquis has been approved with $0 co-pay -Eliquis has been verified previously with Pharmacist that it can be crushed and administered via the PEG tube -Recommendation is for lifelong anticoagulation due to patient being bedbound/ chronic immobility Beta thalassemia -Workup earlier this year hemoglobin A2 was increased 4.3, ferritin was 1700+ -Trending her hemoglobin since about 2018, hemoglobin is mostly in the 9-10 range. Hemoglobin stable at this time -Plan for follow up with Licensed [employer]
[2023-02-24 16:27] LABS: Glucose,Whole Blood 136 mg/dL (70-110)
[2023-02-24] MEDS ORDERED: SODIUM POLYSTYRENE SULFONATE 15 GM/60 ML BOTTLE PO STA (19:01)
[2023-02-24] MEDS: risperiDONE 1 MG TAB PEG/G-TUBE SCH (20:34)
--- NOTE | 2023-02-24 21:10 | PN ---
PROGRESS NOTE SUBJECTIVE: She is started on Lovenox for DVT in the right leg. CT is negative for PE. She is, however, on Eliquis, but she has had some bleeding in the past. We will have to watch her for bleeding 24 hours prior to going home. OBJECTIVE: LUNGS: Transmitted upper airway sounds. CARDIOVASCULAR: S1 and S2. MUSCULOSKELETAL: Generalized weakness. PSYCHIATRIC: Fair mood and affect. LABORATORY DATA: Hemoglobin is 9.3, white count is 6.8. Potassium 5.4, BUN is 52, creatinine is 0.66. ASSESSMENT AND PLAN: She has deep venous thrombosis, unclear beta thalassemia minor. Continue on Eliquis. Monitor her CBC prior to going home. Possible discharge home in the next 24 to 48 hours if the hemoglobin monitor is good. Dr. Tristan has been seeing her for pneumonia, broad-spectrum antibiotics. Blood culture, gram-positive cocci, identification is pending. So, she has bacteremia, pneumonia, increasing shortness of breath, hypoxemic respiratory failure in the 80s on admission. Procalcitonin is elevated. CRP is elevated. Wait for bacteremia clearance. Continue with vancomycin. It will be cut down, and cefepime will be continued until further blood cultures clear. Please see further orders. MMODL / IJN: [id number] /
[2023-02-24 21:19] LABS: Glucose,Whole Blood 174 mg/dL (70-110)
[2023-02-25] MEDS: haloperidoL 5 MG TAB PEG/G-TUBE SCH ×2 (00:01→09:48)
[2023-02-25 06:11] LABS: Glucose,Whole Blood 174 mg/dL (70-110)
[2023-02-25] MEDS: methylPREDNISolone SOD SUCCI 40 MG/ML 1 ML VIAL IV SCH ×3 (08:06→17:19)
[2023-02-25] MEDS: CEFEPIME 2 GM in SODIUM CHLORIDE 0.9% 100 ML IVPB SCH (08:07)
[2023-02-25] MEDS: FUROSEMIDE 10 MG/ML 4 ML VIAL IV SCH (08:08)
[2023-02-25] MEDS ORDERED: LOSARTAN 25 MG TAB PO SCH (09:00)
[2023-02-25] MEDS ORDERED: DAPAGLIFLOZIN PROPANEDIOL 10 MG TABLET PO SCH (09:00)
[2023-02-25] MEDS ORDERED: FUROSEMIDE 20 MG TAB PO SCH (09:00)
[2023-02-25] MEDS: IPRATROPIUM-ALBUTEROL 3 ML NEB INHALATION SCH ×2 (09:35→13:13)
[2023-02-25] MEDS: BUDESONIDE 0.5 MG/2 ML NEBU INHALATION SCH (09:35)
[2023-02-25] MEDS: SERTRALINE 100 MG TAB PEG/G-TUBE SCH (09:49)
[2023-02-25] MEDS: DIVALPROEX SPRINKLE 125 MG CAP.SPRINK PEG/G-TUBE SCH (09:49)
[2023-02-25] MEDS: METOPROLOL TARTRATE 25 MG TAB PEG/G-TUBE SCH (09:49)
[2023-02-25] MEDS: LACOSAMIDE 50 MG TABLET PEG/G-TUBE SCH (09:49)
[2023-02-25] MEDS: SERTRALINE 25 MG TAB PEG/G-TUBE SCH (09:50)
[2023-02-25] MEDS: ENOXAPARIN 60 MG/0.6 ML SYRINGE SQ SCH (09:50)
[2023-02-25] MEDS: ASCORBIC ACID 500 MG TAB PEG/G-TUBE SCH (09:50)
--- NOTE | 2023-02-25 10:04 | P.PN ---
Subjective Progress Note Date: 02/24/23 Principal diagnosis: Acute on chronic hypoxic respiratory failure appears to be related to pneumonia as well as baseline COPD, oxygenation continued to improve on 2 L oxygen doing better Pneumonia likely gram-negative possibly aspiration related, continue Zosyn Congestive heart failure acute on chronic systolic and diastolic heart failure continue gentle diuresis monitor clinical symptoms closely Status post PEG tube due to poor swallowing function as well as prior CVA Hypertension on antihypertensive agents Dyslipidemia on high intensity statins 02/24/2023, patient seen eval reexamined during the rounds labs reviewed medications reviewed overall respiratory status stable, denies any chest pain, patient remains on Lovenox however as per discussion with oncology can be switched to direct oral anticoagulant with Eliquis 02/23/2023, patient seen and evaluated examined during the rounds labs reviewed medications and Plan discussed hemodynamics status overall stable, white cell count 6.8 hemoglobin and hematocrit 9.3/27 chemistry within normal limit BUN/creatinine is 43/177, patient remains on bronchodilator therapy tolerating well so on broad-spectrum antibiotics with cefepime 2 g every 12, patient has been on Lovenox 60 mg every 12 hourly along with IV steroids 40 every 8, CT ARCHIE done earlier today no filling defect was seen because consistent with pleural effusion and CHF, however right leg duplex ultrasound positive for DVT patient has been on full anticoagulation with Lovenox 02/22/2023, overall breathing status still marginal, over she remains afebrile with temperature of 98, heart rate is 83, blood pressure is stable 140/80, respiratory rate is high teens to low 20s, on oxygen saturation nasal cannula 2 L R 100% now Ammann patient remains on bronchodilators and inhaled corticosteroids as well as Solu-Medrol appears to be tolerating very well patient remains on broad-spectrum antibiotics with Zosyn, blood culture however positive for gram-positive cocci in clusters, ID service has been following, patient oxygen saturation 99% 1 L she is afebrile Patient is a 62-year-old -[place]ian female with a past medical history significant for hypertension hyperlipidemia osteoarthritis CVA TIA history of recurrent UTI the patient has been brought into the hospital 2 days ago for evaluation of fever confusion and hypoxemia currently patient's symptom has been going on for a day before presentation to the hospital patient denies any head ache or URI symptoms the patient did have mild cough but no sputum production. Denies having any nausea vomiting or choking on the food no abdominal pain or any diarrhea on presentation to the hospital the patient was afebrile and no fever has been recorded subsequently patient was not tachycardic hypotensive, however patient did have hypoxemia with O2 sats of 80% on room air on presentation to the hospital currently 100% on 2 L nasal cannula patient did have a normal white count kidney function was normal AST was elevated urine has been negative urine toxin positive for oxycodone influenza RSV and COVID testing was negative patient did have a chest x-ray right mid and lower lung pneumonia patient also have a elevated D-dimer and CT angiogram of the chest no PE did shows worsening lung infiltrate suggestive of worsening pulmonary edema patient has been started on Rocephin and Zithromax infectious disease was consulted for further management of antibiotic therapy Objective - Vital Signs Vital signs: Vital Signs Temp 98.6 F 02/24/23 13:34 Pulse 80 02/24/23 15:15 Resp 18 02/24/23 15:15 BP 139/85 02/24/23 13:34 Pulse Ox 98 02/24/23 13:34 FiO2 Intake & Output 02/23/23 02/24/23 02/24/23 18:59 06:59 18:59 Output Total 2475 682 8611 Balance -1550 -400 -1000 Weight 64.5 kg 65.4 kg Output: Urine 1228 948 1561 Other: Voiding Method External Catheter External Catheter External Catheter # Bowel Movements 1 1 - Exam Limitations: no limitations General appearance: alert, in no apparent distress Head exam: Present: atraumatic, normocephalic Eye exam: Present: normal appearance, PERRL ENT exam: Present: mucous membranes dry Neck exam: Present: normal inspection. Absent: tenderness, meningismus Respiratory exam: Present: respiratory distress, rhonchi, decreased breath sounds Cardiovascular Exam: Present: regular rate, normal rhythm GI/Abdominal exam: Present: soft. Absent: distended, tenderness, guarding Extremities exam: Present: normal capillary refill Neurological exam: Present: alert Skin exam: Present: warm, dry, intact - Labs CBC & Chem 7: 02/23/23 07:15 02/24/23 09:14 Labs: Abnormal Lab Results - Last 24 Hours (Table) 02/23/23 02/23/23 02/24/23 Range/Units 17:52 21:34 06:18 Potassium (3.5-5.1) mmol/L Chloride (98-107) mmol/L Carbon Dioxide (22-30) mmol/L BUN (7-17) mg/dL Glucose (74-99) mg/dL POC Glucose (mg/dL) 119 H 159 H 156 H (70-110) mg/dL 02/24/23 02/24/23 02/24/23 Range/Units 09:14 11:07 16:26 Potassium 5.4 H (3.5-5.1) mmol/L Chloride 113 H (98-107) mmol/L Carbon Dioxide 19 L (22-30) mmol/L BUN 52 H (7-17) mg/dL Glucose 131 H (74-99) mg/dL POC Glucose (mg/dL) 127 H 136 H (70-110) mg/dL Microbiology - Last 24 Hours (Table) 02/18/23 04:00 Blood Culture Gram Stain - Preliminary Blood Blood Culture - Preliminary 02/22/23 16:01 Blood Culture - Preliminary Blood Assessment and Plan Assessment: DVT right lower extremity on Lovenox, can be safe to oral anticoagulant once cleared by oncology Acute on chronic hypoxic respiratory failure appears to be related to pneumonia and congestive heart failure as well as baseline COPD, oxygenation continued to improve on 2 L oxygen doing better Bilateral pleural effusion related to volume overload and congestive heart failure continue gentle diuresis Pneumonia likely gram-negative possibly aspiration related, continue Zosyn Gram-positive bacteremia repeat Blood cultures positive for gram-positive cocci in clusters patient is on IV Zosyn will defer to his expertise in infectious disease about starting vancomycin Congestive heart failure acute on chronic systolic and diastolic heart failure continue gentle diuresis monitor clinical symptoms closely Status post PEG tube due to poor swallowing function as well as prior CVA Hypertension on antihypertensive agents Dyslipidemia on high intensity statins Plan: As above Time with Patient: Greater than 30
--- NOTE | 2023-02-25 10:06 | P.PN ---
Subjective Progress Note Date: 02/25/23 Principal diagnosis: Acute on chronic hypoxic respiratory failure appears to be related to pneumonia as well as baseline COPD, oxygenation continued to improve on 2 L oxygen doing better Pneumonia likely gram-negative possibly aspiration related, continue Zosyn Congestive heart failure acute on chronic systolic and diastolic heart failure continue gentle diuresis monitor clinical symptoms closely Status post PEG tube due to poor swallowing function as well as prior CVA Hypertension on antihypertensive agents Dyslipidemia on high intensity statins 02/25/2023, patient seen eval examined the rounds labs reviewed medications reviewed care plan discussed, respiratory status continued to improve patient is on room air now oxygen saturation mid 90s hemodynamic status stable care plan discussed with oncology service at length patient can be placed on thyroid: Anticoagulant fact patient is approved for it as outpatient 02/24/2023, patient seen eval reexamined during the rounds labs reviewed medications reviewed overall respiratory status stable, denies any chest pain, patient remains on Lovenox however as per discussion with oncology can be switched to direct oral anticoagulant with Eliquis 02/23/2023, patient seen and evaluated examined during the rounds labs reviewed medications and Plan discussed hemodynamics status overall stable, white cell count 6.8 hemoglobin and hematocrit 9.3/27 chemistry within normal limit BUN/creatinine is 43/177, patient remains on bronchodilator therapy tolerating well so on broad-spectrum antibiotics with cefepime 2 g every 12, patient has been on Lovenox 60 mg every 12 hourly along with IV steroids 40 every 8, CT ARCHIE done earlier today no filling defect was seen because consistent with pleural effusion and CHF, however right leg duplex ultrasound positive for DVT patient has been on full anticoagulation with Lovenox 02/22/2023, overall breathing status still marginal, over she remains afebrile with temperature of 98, heart rate is 83, blood pressure is stable 140/80, respiratory rate is high teens to low 20s, on oxygen saturation nasal cannula 2 L R 100% now Ammann patient remains on bronchodilators and inhaled corticosteroids as well as Solu-Medrol appears to be tolerating very well patient remains on broad-spectrum antibiotics with Zosyn, blood culture however positive for gram-positive cocci in clusters, ID service has been following, patient oxygen saturation 99% 1 L she is afebrile Patient is a 62-year-old -[place] female with a past medical history significant for hypertension hyperlipidemia osteoarthritis CVA TIA history of recurrent UTI the patient has been brought into the hospital 2 days ago for evaluation of fever confusion and hypoxemia currently patient's symptom has been going on for a day before presentation to the hospital patient denies any headache or URI symptoms the patient did have mild cough but no sputum production. Denies having any nausea vomiting or choking on the food no abdominal pain or any diarrhea on presentation to the hospital the patient was afebrile and no fever has been recorded subsequently patient was not tachycardic hypotensive, however patient did have hypoxemia with O2 sats of 80% on room air on presentation to the hospital currently 100% on 2 L nasal cannula patient did have a normal white count kidney function was normal AST was elevated urine has been negative urine toxin positive for oxycodone influenza RSV and COVID testing was negative patient did have a chest x-ray right mid and lower lung pneumonia patient also have a elevated D-dimer and CT angiogram of the chest no PE did shows worsening lung infiltrate suggestive of worsening pulmonary edema patient has been started on Rocephin and Zithromax infectious disease was consulted for further management of antibiotic therapy Objective - Vital Signs Vital signs: Vital Signs Temp 99.3 F 02/25/23 07:05 Pulse 84 02/25/23 09:49 Resp 17 02/25/23 07:05 BP 170/95 02/25/23 07:05 Pulse Ox 96 02/25/23 09:37 FiO2 Intake & Output 02/24/23 02/25/23 02/25/23 18:59 06:59 18:59 Output Total 1000 600 Balance -1000 -600 Weight 65 kg Output: Urine 1000 600 Other: Voiding Method External Catheter External Catheter External Catheter # Bowel Movements 1 - Exam Limitations: no limitations General appearance: alert, in no apparent distress Head exam: Present: atraumatic, normocephalic Eye exam: Present: normal appearance, PERRL ENT exam: Present: mucous membranes dry Neck exam: Present: normal inspection. Absent: tenderness, meningismus Respiratory exam: Present: respiratory distress, rhonchi, decreased breath sounds Cardiovascular Exam: Present: regular rate, normal rhythm GI/Abdominal exam: Present: soft. Absent: distended, tenderness, guarding Extremities exam: Present: normal capillary refill Neurological exam: Present: alert Skin exam: Present: warm, dry, intact - Labs CBC & Chem 7: 02/23/23 07:15 02/24/23 09:14 Labs: Abnormal Lab Results - Last 24 Hours (Table) 02/24/23 02/24/23 02/24/23 Range/Units 11:07 16:26 21:17 POC Glucose (mg/dL) 127 H 136 H 174 H (70-110) mg/dL 02/25/23 Range/Units 06:09 POC Glucose (mg/dL) 174 H (70-110) mg/dL Microbiology - Last 24 Hours (Table) 02/22/23 16:01 Blood Culture - Preliminary Blood 02/18/23 04:00 Blood Culture Gram Stain - Preliminary Blood Blood Culture - Preliminary Assessment and Plan Assessment: DVT right lower extremity on Lovenox, can be safe to oral anticoagulant once cleared by oncology Acute on chronic hypoxic respiratory failure appears to be related to pneumonia and congestive heart failure as well as baseline COPD, oxygenation continued to improve on 2 L oxygen doing better Bilateral pleural effusion related to volume overload and congestive heart failure continue gentle diuresis Pneumonia likely gram-negative possibly aspiration related, continue Zosyn Gram-positive bacteremia repeat Blood cultures positive for gram-positive cocci in clusters patient is on IV Zosyn will defer to his expertise in infectious disease about starting vancomycin Congestive heart failure acute on chronic systolic and diastolic heart failure continue gentle diuresis monitor clinical symptoms closely Status post PEG tube due to poor swallowing function as well as prior CVA Hypertension on antihypertensive agents Dyslipidemia on high intensity statins Plan: As above Time with Patient: Greater than 30
[2023-02-25] MEDS ORDERED: APIXABAN 2.5 MG TABLET PO ONE (10:37)
[2023-02-25 10:53] LABS: HCT 29.2 % (34.0-46.0); HGB 10.3 gm/dL (11.4-16.0); Hypochromasia Slight; MCHC 35.2 g/dL (31.0-37.0); MCV 79.5 fL (80.0-100.0); Mean Platelet Volume 9.2; Platelet Count 209 k/uL (150-450); Poikilocytosis Slight; RBC 3.67 m/uL (3.80-5.40); RDW 15.9 % (11.5-15.5)
--- NOTE | 2023-02-25 11:01 | P.PN ---
Subjective HISTORY OF PRESENT ILLNESS: This is a 62-year-old female who was admitted to the hospital secondary to pneumonia. Patient is resting comfortably in bed. She denies chest pain or pressure. Denies SOB. She is on IV lasix 40mg daily. Vital signs are stable. 02/24/2023 Patient examined this morning at the bedside. Patient denies chest pain or pressure. She denies shortness of breath. She continues to have lower extremity edema although improved from yesterday. She remains on Lasix 40 mg IV daily. Creatinine today 0.65. Vital signs are stable. Echocardiogram completed revealing ejection fraction 50-55%, moderate MR, mild TR 02/25/2023 Patient examined this morning at the bedside. Patient denies chest pain or pressure. She denies shortness of breath. Her lower extremity edema is improving. Patient's blood pressures elevated this morning with a reading of 170/95. PHYSICAL EXAM: VITAL SIGNS: Reviewed. GENERAL: Well-developed in no acute distress. PEG tube noted. NECK: Supple. No JVD or thyromegaly LUNGS: Respirations even and unlabored. Lungs essentially clear to auscultation bilaterally. HEART: Regular rate and rhythm. S1 and S2 heard. EXTREMITIES: Normal range of motion. No clubbing or cyanosis. Peripheral pulses intact. 1+ bilateral lower extremity edema ASSESSMENT: Pneumonia Acute on chronic hypoxic respiratory failure Acute heart failure with preserved EF Lower extremity edema with component of hypoalbuminemia History of CVA History of recurrent UTI Hypertension Hyperlipidemia History of dysphagia with PEG tube placement Right lower extremity DVT, currently on Lovenox, hematology following PLAN: Continue current cardiac medications Discontinue IV Lasix. Begin oral Lasix 20 mg daily Add losartan 25 mg daily for ocular blood pressure control Add Farxiga 10mg daily Patient is currently stable from a cardiac standpoint Further recommendations pending patient's course Nurse practitioner note has been reviewed by physician. Signing provider agrees with the documented findings, assessment, and plan of care. Objective - Vital Signs Vital signs: Vital Signs Temp 99.3 F 02/25/23 07:05 Pulse 99 02/25/23 10:39 Resp 17 02/25/23 07:05 BP 170/95 02/25/23 07:05 Pulse Ox 96 02/25/23 09:37 FiO2 Intake & Output 02/24/23 02/25/23 02/25/23 18:59 06:59 18:59 Output Total 1000 600 Balance -1000 -600 Weight 65 kg Output: Urine 1000 600 Other: Voiding Method External Catheter External Catheter External Catheter # Bowel Movements 1 - Labs CBC & Chem 7: 02/25/23 10:14 02/24/23 09:14 Labs: Abnormal Lab Results - Last 24 Hours (Table) 02/24/23 02/24/23 02/24/23 Range/Units 11:07 16:26 21:17 RBC (3.80-5.40) m/uL Hgb (11.4-16.0) gm/dL Hct (34.0-46.0) % MCV (80.0-100.0) fL RDW (11.5-15.5) % POC Glucose (mg/dL) 127 H 136 H 174 H (70-110) mg/dL 02/25/23 02/25/23 Range/Units 06:09 10:14 RBC 3.67 L (3.80-5.40) m/uL Hgb 10.3 L (11.4-16.0) gm/dL Hct 29.2 L (34.0-46.0) % MCV 79.5 L (80.0-100.0) fL RDW 15.9 H (11.5-15.5) % POC Glucose (mg/dL) 174 H (70-110) mg/dL Microbiology - Last 24 Hours (Table) 02/22/23 16:01 Blood Culture - Preliminary Blood 02/18/23 04:00 Blood Culture Gram Stain - Preliminary Blood Blood Culture - Preliminary
[2023-02-25 11:17] LABS: Glucose,Whole Blood 134 mg/dL (70-110)
[2023-02-25 11:38] LABS: ALT 32 U/L (4-34); African American GFR (CKD) >90 (>60 ml/min/1.73 sqM); Albumin/Globulin Ratio 0.9; Anion Gap 10 mmol/L; Blood Urea Nitrogen 48 mg/dL (7-17); Calcium 8.7 mg/dL (8.4-10.2); Carbon Dioxide 17 mmol/L (22-30); Chloride 116 mmol/L (98-107); Globulin 3.3 g/dL; Glucose 111 mg/dL (74-99); Non-African American GFR(CKD) >90 (>60 ml/min/1.73 sqM); Sodium 143 mmol/L (137-145); Total Bilirubin 0.7 mg/dL (0.2-1.3)
[2023-02-25 11:44] LABS: AST 58 U/L (14-36); Alkaline Phosphatase 329 U/L (38-126); Potassium 4.5 mmol/L (3.5-5.1); Total Protein 6.3 g/dL (6.3-8.2)
[2023-02-25 12:34] LABS: Band Neutrophils % 1 %; Lymphocytes # (M) 2.48 k/uL (1.0-4.8); Metamyelocytes # (M) 0.09 k/uL (0); Metamyelocytes % 1 %; Monocytes # (M) 0.55 k/uL (0-1.0); Myelocytes # (M) 0.18 k/uL (0); Myelocytes % 2 %; Neutrophils % (M) 65 %; Nucleated Red Blood Cells 5 /100 WBC (0-0); Total Cells Counted 200; WBC 9.2 k/uL (3.8-10.6)
[2023-02-25 13:53] VITALS: BP 149/88; PULSE 92; RESP 14; TEMP 98.4
--- NOTE | 2023-02-25 15:39 | P.PN ---
Subjective Progress Note Date: 02/25/23 Principal diagnosis: Pneumonia, CHF, Right lower extremity DVT In follow-up today patient denies any bleeding, I thought that the patient started oral anticoagulation yesterday but, she has not yet. She denies any pain. Objective - Vital Signs Vital signs: Vital Signs Temp 98.4 F 02/25/23 13:49 Pulse 92 02/25/23 13:49 Resp 14 02/25/23 13:49 BP 149/88 02/25/23 13:49 Pulse Ox 97 02/25/23 13:49 FiO2 Intake & Output 02/24/23 02/25/23 02/25/23 18:59 06:59 18:59 Output Total 9585 178 4012 Balance -1000 -600 -1100 Weight 65 kg Output: Urine 3741 528 5148 Other: Voiding Method External Catheter External Catheter External Catheter # Bowel Movements 1 - Constitutional General appearance: Present: average body habitus, cooperative, no acute distress - EENT Eyes: Present: anicteric sclerae, EOMI ENT: Present: hearing grossly normal - Respiratory Details: Respirations even and unlabored - Cardiovascular Details: Skin warm and dry to the touch - Psychiatric Psychiatric: Present: A&O x's 3, appropriate affect - Labs CBC & Chem 7: 02/25/23 10:14 02/25/23 10:14 Labs: Abnormal Lab Results - Last 24 Hours (Table) 02/24/23 02/24/23 02/25/23 Range/Units 16:26 21:17 06:09 RBC (3.80-5.40) m/uL Hgb (11.4-16.0) gm/dL Hct (34.0-46.0) % MCV (80.0-100.0) fL RDW (11.5-15.5) % Metamyelocytes # (Man) (0) k/uL Myelocytes # (Manual) (0) k/uL Nucleated RBCs (0-0) /100 WBC Chloride (98-107) mmol/L Carbon Dioxide (22-30) mmol/L BUN (7-17) mg/dL Glucose (74-99) mg/dL POC Glucose (mg/dL) 136 H 174 H 174 H (70-110) mg/dL AST (14-36) U/L Alkaline Phosphatase (38-126) U/L Albumin (3.5-5.0) g/dL 02/25/23 02/25/23 02/25/23 Range/Units 10:14 10:14 11:17 RBC 3.67 L (3.80-5.40) m/uL Hgb 10.3 L (11.4-16.0) gm/dL Hct 29.2 L (34.0-46.0) % MCV 79.5 L (80.0-100.0) fL RDW 15.9 H (11.5-15.5) % Metamyelocytes # (Man) 0.09 H (0) k/uL Myelocytes # (Manual) 0.18 H (0) k/uL Nucleated RBCs 5 H (0-0) /100 WBC Chloride 116 H (98-107) mmol/L Carbon Dioxide 17 L (22-30) mmol/L BUN 48 H (7-17) mg/dL Glucose 111 H (74-99) mg/dL POC Glucose (mg/dL) 134 H (70-110) mg/dL AST 58 H (14-36) U/L Alkaline Phosphatase 329 H (38-126) U/L Albumin 3.0 L (3.5-5.0) g/dL Microbiology - Last 24 Hours (Table) 02/22/23 16:01 Blood Culture - Preliminary Blood Assessment and Plan (1) DVT (deep venous thrombosis) Current Visit: Yes Status: Acute Priority: High Code(s): I82.409 - ACUTE EMBOLISM AND THOMBOS UNSP DEEP VN UNSP LOWER EXTREMITY SNOMED Code(s): 032302147 (2) Beta thalassemia minor Current Visit: No Status: Chronic Priority: Medium Code(s): D56.3 - THALASSEMIA MINOR SNOMED Code(s): 427816287 Plan: Right lower extremity DVT -Patient's eliquis has been approved with $0 co-pay -Eliquis has been verified previously with Pharmacist that it can be crushed and administered via the PEG tube -Recommendation is for lifelong anticoagulation due to patient being bedbound/chronic immobility -Dr. Brandon discussed case with Dr. Callahan today. -Pt DID NOT start eliquis yesterday as I documented in my note. Patient will be started on the oral eliquis today 02/25. Beta thalassemia -Workup earlier this year hemoglobin A2 was increased 4.3, ferritin was 1700+ -Trending her hemoglobin since about 2018, hemoglobin is mostly in the 9-10 range. Hemoglobin stable at this time -Nothing acutely needs to be done -Plan for follow up with [facility]st, appt in dc plan attests: I seen and examined patient, Performed H&P, developed impression and plan of care. Discussed with dictator. Agree with documentation, dictated as a scribe.
[2023-02-25 16:18] LABS: Glucose,Whole Blood 129 mg/dL (70-110)
[2023-02-25] MEDS ORDERED: APIXABAN 2.5 MG TABLET PO SCH (21:00)
[2023-02-25] MEDS ORDERED: Apixaban Initiation Dose--VTE 5 MG TAB PO SCH (21:00)
--- NOTE | 2023-02-26 22:23 | CDI ---
Documentation Clarification Form Date: 02/26/2023 10:09:36 PM From: Stephanie Mcghee Phone: Admit Date: 02/18/2023 02:30:00 AM Patient Name: Jeane Urbano Visit Number: [id number] Discharge Date: 02/25/2023 05:50:00 PM ATTENTION: The Clinical Documentation Specialists (CDI) and [facility] Coding Staff appreciate your assistance in clarifying documentation. Please respond to the clarification below the line at the bottom and electronically sign. The CDI & [facility] Coding staff will review the response and follow-up if needed. Please note: Queries are made part of the Legal Health Record. If you have any questions, please contact the author of this message via ITS. Dr. Mohit Harley Malnutrition is documented H&P. Additional clarification regarding the severity of malnutrition is requested. History/Risk Factors: 62yo F, Asp PNA, ACHRF on O2, ACCHF, LE edemawith component ofhypoalbuminemia, Hx CVA,HTN, HLD, HxdysphagiawithPEG, RLE DVT, LUE contractures/ bedbound, HX pressure ulcer Clinical Indicators: poor swallowing function Current BMI: 27.1 Treatment: PEG tube/feeding tube Is there an additional diagnosis that is clinically appropriate for this patient? [ ] Mild Protein-Calorie Malnutrition [ ] Moderate Protein-Calorie Malnutrition [ ] Severe Protein-Calorie Malnutrition [ ] No additional diagnosis/Not clinically significant [ ] Other condition, please specify [ ] Unable to Determine Reference: Using the ASPEN Guidelines, Undernutrition (Malnutrition) is characterized by at least two of the following six findings. The severity can be determined based on the criteria listed below. Malnutrition Characteristics for Moderate and Severe Malnutrition Type of Malnutrition Acute Illness or Injury Chronic Illness Degree of Malnutrition Non-severe (moderate) Malnutrition Severe Malnutrition Non-severe (moderate) Malnutrition Severe Malnutrition (Template Last Revised: January 2023) MTDD
--- NOTE | 2023-03-01 20:08 | PN ---
PROGRESS NOTE Moderate protein-calorie malnutrition. MMODL / IJN: [id number] /
== END 2023-02-25 17:50 | disposition home health service (06) | DRG 137 ==
LOC: EC 23:16 → 4SSUR 02-18 02:30
PROVIDERS: ADMIT Family Medicine; ATTEND Family Medicine
DX: J69.0 Pneumonitis due to inhalation of food and vomit (principal); J96.21 Acute and chronic respiratory failure with hypoxia; I50.43 Acute on chronic combined systolic (congestive) and diastolic (congestive) heart failure; F03.90 Unspecified dementia, unspecified severity, without behavioral disturbance, psychotic disturbance, mood disturbance, and anxiety; I11.0 Hypertensive heart disease with heart failure; G40.909 Epilepsy, unspecified, not intractable, without status epilepticus; I69.334 Monoplegia of upper limb following cerebral infarction affecting left non-dominant side; R78.81 Bacteremia; I82.411 Acute embolism and thrombosis of right femoral vein; E44.0 Moderate protein-calorie malnutrition; I82.421 Acute embolism and thrombosis of right iliac vein; Z93.1 Gastrostomy status; J44.9 Chronic obstructive pulmonary disease, unspecified; L89.629 Pressure ulcer of left heel, unspecified stage; L89.899 Pressure ulcer of other site, unspecified stage; E87.1 Hypo-osmolality and hyponatremia; E88.09 Other disorders of plasma-protein metabolism, not elsewhere classified; Z99.81 Dependence on supplemental oxygen; Z95.828 Presence of other vascular implants and grafts; I69.391 Dysphagia following cerebral infarction; D56.3 Thalassemia minor; E78.5 Hyperlipidemia, unspecified; E86.0 Dehydration; M19.90 Unspecified osteoarthritis, unspecified site; M62.422 Contracture of muscle, left upper arm; B96.89 Other specified bacterial agents as the cause of diseases classified elsewhere; Z96.89 Presence of other specified functional implants; Z20.822 Contact with and (suspected) exposure to COVID-19; Z68.27 Body mass index [BMI] 27.0-27.9, adult; Z87.01 Personal history of pneumonia (recurrent); Z74.01 Bed confinement status; Z87.891 Personal history of nicotine dependence; Z79.899 Other long term (current) drug therapy; Z88.5 Allergy status to narcotic agent; Z86.14 Personal history of Methicillin resistant Staphylococcus aureus infection; Z88.8 Allergy status to other drugs, medicaments and biological substances; Z86.79 Personal history of other diseases of the circulatory system; Z82.49 Family history of ischemic heart disease and other diseases of the circulatory system; Z80.8 Family history of malignant neoplasm of other organs or systems
CPT/HCPCS: 36415; 71045; 71250; 71275; 80048; 80053; 80202; 80306; 81001; 82533; 83605; 83880; 84145; 84484; 85025; 85379; 85610; 85730; 86140; 87040; 87636; 93005; 93306; 93970; 94640; 94760; 96361; 96365; 99291

== ENCOUNTER → 2023-03-26 | Outpatient (CLI) | payer OTHER ==
[2023-03-26 16:33] LABS: ALT 81 U/L (8-44); AST 82 U/L (13-35)
== END | disposition home or self-care (01) ==
LOC: LABWHC1 11:30
PROVIDERS: ATTEND Psychiatry & Neurology Neurology
DX: G40.209 Localization-related (focal) (partial) symptomatic epilepsy and epileptic syndromes with complex partial seizures, not intractable, without status epilepticus (principal)
CPT/HCPCS: 36415; 80164; 80235; 84450; 84460

== ENCOUNTER 2023-05-02 15:05 | Inpatient (IN) | payer MEDICARE, OTHER ==
[2023-05-02] MEDS ORDERED: SODIUM CHLORIDE 0.9% 500 ML 500 ML IV STA (15:19)
[2023-05-02 16:25] LABS: Anisocytosis Slight; Basophils % (A) 0 %; Eosinophils # (A) 0.1 k/uL (0-0.7); Eosinophils % (A) 1 %; HCT 34.2 % (34.0-46.0); HGB 10.8 gm/dL (11.4-16.0); Hypochromasia Slight; Lymphocytes % (A) 27 %; MCH 26.3 pg (25.0-35.0); MCHC 31.6 g/dL (31.0-37.0); MCV 83.2 fL (80.0-100.0); Mean Platelet Volume 9.1; Monocytes # (A) 0.1 k/uL (0-1.0); Monocytes % (A) 2 %; Neutrophils % (A) 69 %; Platelet Count 256 k/uL (150-450); RBC 4.11 m/uL (3.80-5.40); RDW 16.6 % (11.5-15.5); WBC 7.2 k/uL (3.8-10.6)
[2023-05-02 16:31] LABS: Appearance,Urine Clear (Clear); Bacteria,Urine Rare /hpf; Bilirubin,Urine Negative (Negative); Blood,Urine Negative (Negative); Color,Urine Light Yellow; Glucose,Urine (UA) 1+ (Negative); Ketones,Urine Negative (Negative); Leukocyte Esterase,Urine Moderate (Negative); Nitrite,Urine Negative (Negative); PH, Urine 7.5 (5.0-8.0); Protein,Urine Negative (Negative); RBC,Urine 1 /hpf (0-5); Specific Gravity,Urine 1.014 (1.001-1.035); WBC,Urine 7 /hpf (0-5)
[2023-05-02 16:34] LABS: ALT 37 U/L (4-34); African American GFR (CKD) 63 (>60 ml/min/1.73 sqM); Albumin 3.4 g/dL (3.5-5.0); Anion Gap 11 mmol/L; Blood Urea Nitrogen 86 mg/dL (7-17); Calcium 9.2 mg/dL (8.4-10.2); Carbon Dioxide 23 mmol/L (22-30); Chloride 109 mmol/L (98-107); Glucose 73 mg/dL (74-99); Non-African American GFR(CKD) 55 (>60 ml/min/1.73 sqM); Sodium 143 mmol/L (137-145); Total Bilirubin 0.8 mg/dL (0.2-1.3); Total Protein 7.1 g/dL (6.3-8.2)
--- NOTE | 2023-05-02 16:35 | ED ---
General Adult HPI - General Chief complaint: Altered Mental Status Stated complaint: weakness Time Seen by Provider: 05/02/23 15:12 Source: patient, RN notes reviewed, old records reviewed Mode of arrival: EMS Limitations: no limitations - History of Present Illness Initial comments: Patient is a 63-year-old female presents emergency Department from home for evaluation for fatigue and altered mental status. Patient has a history of a stroke, baseline is bedbound. Has a guardian who is at bedside. Able to tell me the patient for the last 5 days has been more weak and less responsive. Doesn't seem to be discharged. Is PEG tube dependent. No obvious complaints and the patient. All baseline is and O times one to 2. Is wishes at this time. De nies any abdominal pain, chest pain, shortness of breath. Patient does have some bedsores. This is below the patient's baseline. Patient's parents that she is still full code. Presents for further evaluation of this time. 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 She is bedbound. - Related Data Home Medications Medication Instructions Recorded Confirmed Lacosamide [Vimpat] 100 mg PEG/G-TUBE BID 07/03/22 05/02/23 Sertraline [Zoloft] 25 mg PEG/G-TUBE DAILY 07/03/22 05/02/23 Sertraline [Zoloft] 100 mg PEG/G-TUBE DAILY 07/03/22 05/02/23 risperiDONE [RisperDAL] 1 mg PEG/G-TUBE HS 07/03/22 05/02/23 Ascorbic Acid [Vitamin C] 250 mg PEG/G-TUBE DAILY 02/18/23 05/02/23 Metoprolol Tartrate [Lopressor] 25 mg PEG/G-TUBE BID 02/18/23 05/02/23 haloperidoL [Haldol] 2.5 mg PEG/G-TUBE Q12H 02/18/23 05/02/23 Apixaban [Eliquis] 5 mg PEG/G-TUBE BID 05/02/23 05/02/23 Dapagliflozin Propanediol [Farxiga] 10 mg PEG/G-TUBE DAILY 05/02/23 05/02/23 Divalproex Sprinkle [Depakote 125 mg PEG/G-TUBE BID 05/02/23 05/02/23 Sprinkle] Furosemide [Lasix] 20 mg PEG/G-TUBE DAILY 05/02/23 05/02/23 Lacosamide [Vimpat] 50 mg PEG/G-TUBE BID 05/02/23 05/02/23 Losartan [Cozaar] 25 mg PEG/G-TUBE DAILY 05/02/23 05/02/23 Ondansetron [Zofran] 4 mg PEG/G-TUBE Q6H PRN 05/02/23 05/02/23 predniSONE [Deltasone] 40 mg PEG/G-TUBE DAILY 05/02/23 05/02/23 Previous Rx's Medication Instructions Recorded Budesonide [Pulmicort] 0.5 mg INHALATION RT-BID 30 Days 02/25/23 #60 ml Ipratropium-Albuterol Nebulize 3 ml INHALATION RT-QID 30 Days 02/25/23 [Duoneb 0.5 mg-3 mg/3 ml Soln] #120 each Allergies Allergy/AdvReac Type Severity Reaction Status Date / Time hydromorphone [From Dilaudid] Allergy Swelling Verified 05/02/23 17:39 morphine Allergy Swelling Verified 05/02/23 17:39 Review of Systems ROS Statement: Those systems with pertinent positive or pertinent negative responses have been documented in the HPI. ROS Other: All systems not noted in ROS Statement are negative. 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 gout, PANCREATITIS, pseudoseizures, UTI, gallstones, tremors, hx multiple brain aneursyms, pressure injuries to right calf and left heel History of Any Multi-Drug Resistant Organisms: ESBL, MRSA Date of last positivie culture/infection: 02/03/23-MRSA; 03/18/18 ESBL MDRO Source:: Right Lateral Calf- MRSA; Urine-ESBL Past Surgical History: Section, Cholecystectomy, Orthopedic Surgery Additional Past Surgical History / Comment(s): hx aneurysms- COILS AND STENTS TO BRAIN, repair tendons r/t gout BILATERAL FEET; Pain pump inserted on 04/21/22 Past Anesthesia/Blood Transfusion Reactions: No Reported Reaction Additional Past Anesthesia/Blood Transfusion Reaction / Comment(s): PT HAS HAD BLOOD TRANSFUSIONS FOR ANEMIA-NO REACTION. Past Psychological History: Anxiety, Depression, Schizophrenia Smoking Status: Former smoker - Past Family History Sister(s) Family Medical History: Myocardial Infarction ([place]) Father Family Medical History: Cancer Additional Family Medical History / Comment(s): throat, lung, and rectal cancer Mother Family Medical History: Myocardial Infarction ([place]) Additional Family Medical History / Comment(s): stroke General Exam - General Exam Comments Initial Comments: General: Appears in no acute distress. HEAD: Normal with no signs of head trauma. EYES: PERRLA, EOMI, conjunctiva normal, no discharge. Pupils are 3 mm equal bilaterally. ENT: Hearing grossly intact, normal oropharynx. RESPIRATORY: Clear breath sounds bilaterally. No wheezes, rales, or rhonchi. No hypoxia. No increased work of breathing. C/V: Regular rate and rhythm. S1 and S2 auscultated, no edema, peripheral pulses 2+ and intact throughout ABD: Abd is soft, nontender, nondistended. PEG tube is present and is draining. EXT: Contractures on the left side of her body. Paralysis of left-sided body from prior stroke. No obvious acute deformity. SKIN: Patient does have various ulcers present, stage I residual over the sacrum as well as the back of her heels and legs. NEURO: Alert and oriented times one to 2 which is the patient's baseline. No ob vious acute deficits. Chronic contractures as well as intrinsic paralysis of the left side of her body secondary to prior stroke. Limitations: no limitations Course Vital Signs 05/02/23 05/02/23 05/02/23 15:15 16:04 17:00 Temperature 97.6 F Pulse Rate 86 63 78 Respiratory 16 16 16 Rate Blood Pressure 118/41 122/49 128/66 O2 Sat by Pulse 94 L 94 L 95 Oximetry 05/02/23 05/02/23 05/02/23 18:00 18:54 19:33 Temperature Pulse Rate 69 76 78 Respiratory 16 16 Rate Blood Pressure 139/56 127/68 O2 Sat by Pulse 94 L 99 Oximetry 05/02/23 05/02/23 19:48 20:16 Temperature Pulse Rate 76 77 Respiratory 16 Rate Blood Pressure 128/74 O2 Sat by Pulse 97 Oximetry Medical Decision Making - Medical Decision Making Was pt. sent in by a medical professional or institution (WARREN Blanca, SCHOOL PSYCHOLOGY SPECIALIST, urgent care, hospital, or halfway...) When possible be specific @ -No Did you speak to anyone other than the patient for history (EMS, parent, family, police, friend...)? What history was obtained from this source @ -I spoke with patient's guardian Matias Howard who is the primary caregiver for the patient. Provides patient's recent past medical history as well as recent history over the last 5 days for current symptoms. Did you review nursing and triage notes (agree or disagree)? Why? @ -I reviewed and agree with nursing and triage notes Were old charts reviewed (outside hosp., previous admission, EMS record, old EKG, old radiological studies, urgent care reports/EKG's, halfway records)? Report findings @ -Old charts reviewed. Differential Diagnosis (chest pain, altered mental status, abdominal pain women, abdominal pain men, vaginal bleeding, weakness, fever, dyspnea, syncope, headache, dizziness, GI bleed, back pain, seizure, CVA, palpatations, mental health, musculoskeletal)? @ -Differential Weakness: Hypoglycemia, shock, sepsis, hyponatremia, anemia, infection, [place], ETOH, adverse medicine reaction, overdose, stroke, this is not meant to be an all-inclusive list. EKG interpreted by me (3pts min.). @ -As above X-rays interpreted by me (1pt min.). @ -Chest x-ray reveals findings concerning for pulmonary edema versus pneumonia. Patient does have a prior history of this. Seems somewhat improved from prior chest x-rays in our system. CT interpreted by me (1pt min.). @ -CT brain reveals no obvious acute intracranial process or injury. U/S interpreted by me (1pt. min.). @ -None done What testing was considered but not performed or refused? (CT, X-rays, U/S, labs)? Why? @ -None What meds were considered but not given or refused? Why? @ -None Did you discuss the management of the patient with other professionals (professionals i.e. WARREN Blanca, SCHOOL PSYCHOLOGY SPECIALIST, lab, RT, psych nurse, social media job titles, nurse companion, teacher, homicide squad commanding officer, casework supervisor)? Give summary @ -Discussed with Dr. Harley who accepted the patient. Was smoking cessation discussed for >3mins.? @ -No Was critical care preformed (if so, how long)? @ -No Were there social determinants of health that impacted care today? How? (Homelessness, low income, unemployed, alcoholism, drug addiction, transportation, low edu. Level, literacy, decrease access to med. care, penitentiary, rehab)? @ -No Was there de-escalation of care discussed even if they declined (Discuss DNR or withdrawal of care, Hospice)? DNR status @ -Discussed possible DO NOT RESUSCITATE or DO NOT INTUBATE with patient's guardian. Patient patient's guardian would like the patient to remain full code at this time. What co-morbidities impacted this encounter? (DM, HTN, Smoking, COPD, CAD, Cancer, CVA, ARF, Chemo, Hep., AIDS, mental health diagnosis, sleep apnea, morbid obesity)? @ -None Was patient admitted / discharged? Hospital course, mention meds given and route, prescriptions, significant lab abnormalities, going to OR and other pertinent info. @ -Based on patient's presentation and physical exam, she appears to be more or less at her baseline but just more fatigued and weak than normal. However we will obtain a broad workup to to her past medical history and unable to provide much information. This included CT brain, labs, EKG, chest x-ray from infect ious labs. Guardian was in agreement this plan. Vital signs are within acceptable limits. EKG shows no signs of acute ischemia.Patient's imaging reveals bilateral pulmonary vascular congestion versus pneumonia which is chronic for the patient. CT brain unremarkable. Patient's labs reveal a chronic anemia, a hypokalemia 5.0, as well as other nonspecific findings. Urinalysis is borderline for UTI. Viral swabs negative.Patient's BNP is elevated with a chest x-ray findings, however patient in the past has presented with BNP is over 10,000. This seems to be her baseline. She is not hypoxic. No respiratory distress. Pneumonia versus chronic findings more likely. On reevaluation come patient remains unchanged. Over concern for UTI as well as possible pneumonia, we will obtain blood cultures and strep. Patient empirically on Rocephin as well as azithromycin. We'll continue to closely monitor patient's fluid intake as well. Patient was in agreement this plan. She'll be admitted at this time. I spoke patient's PCP Dr. Harley who accepted the patient. Undiagnosed new problem with uncertain prognosis? @ -No Drug Therapy requiring intensive monitoring for toxicity (Heparin, Nitro, Insulin, Cardizem)? @ -No Were any procedures done? @ -No Diagnosis/symptom? @ -Weakness, UTI, possible pneumonia Acute, or Chronic, or Acute on Chronic? @ -Acute Uncomplicated (without systemic symptoms) or Complicated (systemic symptoms)? @ -Complicated Side effects of treatment? @ -none Exacerbation, Progression, or Severe Exacerbation] @ -no Poses a threat to life or bodily function? @ -Yes - Lab Data Result diagrams: 05/02/23 15:19 05/02/23 17:06 Lab Results 05/02/23 05/02/23 05/02/23 Range/Units 15:19 15:19 15:19 WBC 7.2 (3.8-10.6) k/uL RBC 4.11 (3.80-5.40) m/uL Hgb 10.8 L (11.4-16.0) gm/dL Hct 34.2 (34.0-46.0) % MCV 83.2 (80.0-100.0) fL MCH 26.3 (25.0-35.0) pg MCHC 31.6 (31.0-37.0) g/dL RDW 16.6 H (11.5-15.5) % Plt Count 256 (150-450) k/uL MPV 9.1 Neutrophils % 69 % Lymphocytes % 27 % Monocytes % 2 % Eosinophils % 1 % Basophils % 0 % Neutrophils # 5.0 (1.3-7.7) k/uL Lymphocytes # 2.0 (1.0-4.8) k/uL Monocytes # 0.1 (0-1.0) k/uL Eosinophils # 0.1 (0-0.7) k/uL Basophils # 0.0 (0-0.2) k/uL Hypochromasia Slight Anisocytosis Slight PT 10.0 (9.0-12.0) sec INR 0.9 (<1.2) APTT 22.6 (22.0-30.0) sec Sodium (137-145) mmol/L Potassium (3.5-5.1) mmol/L Chloride (98-107) mmol/L Carbon Dioxide (22-30) mmol/L Anion Gap mmol/L BUN (7-17) mg/dL Creatinine (0.52-1.04) mg/dL Est GFR (CKD-EPI)AfAm (>60 ml/min/1.73 sqM) Est GFR (CKD-EPI)NonAf (>60 ml/min/1.73 sqM) Glucose (74-99) mg/dL Plasma Lactic Acid Shen (0.7-2.0) mmol/L Calcium (8.4-10.2) mg/dL Magnesium (1.6-2.3) mg/dL Total Bilirubin (0.2-1.3) mg/dL AST (14-36) U/L ALT (4-34) U/L Alkaline Phosphatase (38-126) U/L Ammonia (<30) umol/L NT-Pro-B Natriuret Pep pg/mL Total Protein (6.3-8.2) g/dL Albumin (3.5-5.0) g/dL Urine Color Light Yellow Urine Appearance Clear (Clear) Urine pH 7.5 (5.0-8.0) Ur Specific [place] 1.014 (1.001-1.035) Urine Protein Negative (Negative) Urine Glucose (UA) 1+ H (Negative) Urine Ketones Negative (Negative) Urine Blood Negative (Negative) Urine Nitrite Negative (Negative) Urine Bilirubin Negative (Negative) Urine Urobilinogen 2.0 (<2.0) mg/dL Ur Leukocyte Esterase Moderate H (Negative) Urine RBC 1 (0-5) /hpf Urine WBC 7 H (0-5) /hpf Urine Bacteria Rare H (None) /hpf Influenza Type A (PCR) (Not Detectd) Influenza Type B (PCR) (Not Detectd) RSV (PCR) (Not Detectd) SARS-CoV-2 (PCR) (Not Detectd) 05/02/23 05/02/23 05/02/23 Range/Units 15:19 15:19 15:20 WBC (3.8-10.6) k/uL RBC (3.80-5.40) m/uL Hgb (11.4-16.0) gm/dL Hct (34.0-46.0) % MCV (80.0-100.0) fL MCH (25.0-35.0) pg MCHC (31.0-37.0) g/dL RDW (11.5-15.5) % Plt Count (150-450) k/uL MPV Neutrophils % % Lymphocytes % % Monocytes % % Eosinophils % % Basophils % % Neutrophils # (1.3-7.7) k/uL Lymphocytes # (1.0-4.8) k/uL Monocytes # (0-1.0) k/uL Eosinophils # (0-0.7) k/uL Basophils # (0-0.2) k/uL Hypochromasia Anisocytosis PT (9.0-12.0) sec INR (<1.2) APTT (22.0-30.0) sec Sodium 143 (137-145) mmol/L Potassium 5.9 H (3.5-5.1) mmol/L Chloride 109 H (98-107) mmol/L Carbon Dioxide 23 (22-30) mmol/L Anion Gap 11 mmol/L BUN 86 H (7-17) mg/dL Creatinine 1.07 H (0.52-1.04) mg/dL Est GFR (CKD-EPI)AfAm 63 (>60 ml/min/1.73 sqM) Est GFR (CKD-EPI)NonAf 55 (>60 ml/min/1.73 sqM) Glucose 73 L (74-99) mg/dL Plasma Lactic Acid Shen 2.0 (0.7-2.0) mmol/L Calcium 9.2 (8.4-10.2) mg/dL Magnesium 2.8 H (1.6-2.3) mg/dL Total Bilirubin 0.8 (0.2-1.3) mg/dL AST 62 H (14-36) U/L ALT 37 H (4-34) U/L Alkaline Phosphatase 153 H (38-126) U/L Ammonia 32 H (<30) umol/L NT-Pro-B Natriuret Pep pg/mL Total Protein 7.1 (6.3-8.2) g/dL Albumin 3.4 L (3.5-5.0) g/dL Urine Color Urine Appearance (Clear) Urine pH (5.0-8.0) Ur Specific [place] (1.001-1.035) Urine Protein (Negative) Urine Glucose (UA) (Negative) Urine Ketones (Negative) Urine Blood (Negative) Urine Nitrite (Negative) Urine Bilirubin (Negative) Urine Urobilinogen (<2.0) mg/dL Ur Leukocyte Esterase (Negative) Urine RBC (0-5) /hpf Urine WBC (0-5) /hpf Urine Bacteria (None) /hpf Influenza Type A (PCR) Not Detected (Not Detectd) Influenza Type B (PCR) Not Detected (Not Detectd) RSV (PCR) Not Detected (Not Detectd) SARS-CoV-2 (PCR) Not Detected (Not Detectd) 05/02/23 Range/Units 17:06 WBC (3.8-10.6) k/uL RBC (3.80-5.40) m/uL Hgb (11.4-16.0) gm/dL Hct (34.0-46.0) % MCV (80.0-100.0) fL MCH (25.0-35.0) pg MCHC (31.0-37.0) g/dL RDW (11.5-15.5) % Plt Count (150-450) k/uL MPV Neutrophils % % Lymphocytes % % Monocytes % % Eosinophils % % Basophils % % Neutrophils # (1.3-7.7) k/uL Lymphocytes # (1.0-4.8) k/uL Monocytes # (0-1.0) k/uL Eosinophils # (0-0.7) k/uL Basophils # (0-0.2) k/uL Hypochromasia Anisocytosis PT (9.0-12.0) sec INR (<1.2) APTT (22.0-30.0) sec Sodium (137-145) mmol/L Potassium 5.0 (3.5-5.1) mmol/L Chloride (98-107) mmol/L Carbon Dioxide (22-30) mmol/L Anion Gap mmol/L BUN (7-17) mg/dL Creatinine (0.52-1.04) mg/dL Est GFR (CKD-EPI)AfAm (>60 ml/min/1.73 sqM) Est GFR (CKD-EPI)NonAf (>60 ml/min/1.73 sqM) Glucose (74-99) mg/dL Plasma Lactic Acid Shen (0.7-2.0) mmol/L Calcium (8.4-10.2) mg/dL Magnesium (1.6-2.3) mg/dL Total Bilirubin (0.2-1.3) mg/dL AST (14-36) U/L ALT (4-34) U/L Alkaline Phosphatase (38-126) U/L Ammonia (<30) umol/L NT-Pro-B Natriuret Pep 2020 pg/mL Total Protein (6.3-8.2) g/dL Albumin (3.5-5.0) g/dL Urine Color Urine Appearance (Clear) Urine pH (5.0-8.0) Ur Specific [place] (1.001-1.035) Urine Protein (Negative) Urine Glucose (UA) (Negative) Urine Ketones (Negative) Urine Blood (Negative) Urine Nitrite (Negative) Urine Bilirubin (Negative) Urine Urobilinogen (<2.0) mg/dL Ur Leukocyte Esterase (Negative) Urine RBC (0-5) /hpf Urine WBC (0-5) /hpf Urine Bacteria (None) /hpf Influenza Type A (PCR) (Not Detectd) Influenza Type B (PCR) (Not Detectd) RSV (PCR) (Not Detectd) SARS-CoV-2 (PCR) (Not Detectd) - EKG Data -: EKG Interpreted by Me EKG Comments: 12-lead Electrocardiogram Interpretation Note EKG was reviewed and interpreted by myself. 12-lead ECG performed at 1520 is interpreted by me as revealing normal sinus rhythm at a rate of 83 beats per minute. [place] is normal. [place] interval is 166 ms, QRS duration is 90 ms, QTc is 380 ms.. There were no acute ST or T wave abnormalities to suggest myocardial ischemia or injury. R wave progression across the precordium was satisfactory. By my interpretation this EKG is non-diagnostic for acute ischemia. Disposition Clinical Impression: Weakness, UTI (urinary tract infection), Acute pneumonia Disposition: ADMITTED IP TO THIS HOSP Condition: Stable Time of Disposition: 18:00
[2023-05-02 16:42] LABS: AST 62 U/L (14-36); Alkaline Phosphatase 153 U/L (38-126); Magnesium 2.8 mg/dL (1.6-2.3); Potassium 5.9 mmol/L (3.5-5.1)
--- NOTE | 2023-05-02 16:54 | CT ---
EXAMINATION TYPE: CT brain wo con DATE OF EXAM: 05/02/2023 COMPARISON: 07/03/2022 HISTORY: weakness CT DLP: 1201.9 mGycm Automated exposure control for dose reduction was used. FINDINGS: The ventricles, basal cisterns and sulci over convexities are moderately enlarged consistent with mod erate atrophy. There is a large area of encephalomalacia involving the right temporal parietal lobe consistent with a remote infarct. There is moderate chronic ischemic white matter demyelination. There is a possible small new lacunar infarct in the left basal ganglia. MRI would be useful for furt her evaluation if clinically indicated. There is no acute intra or extra-axial hemorrhage. There is no mass effect or shift of midline struct ures. There are postsurgical changes of aneurysm clipping involving the left middle cerebral artery. The posterior fossa is grossly normal. The intraorbital contents appear normal and symmetric. Paranasal sinuses and mastoid air cells are well aerated. IMPRESSION: 1. Large remote infarct involving the left temporal parietal lobe. 2. Possible new acute lacunar infarct in left basal ganglia. MRI would be useful for further evaluati on if clinically indicated. 3. No acute bleed or mass effect. 4. Aneurysm clipping on the left middle cerebral artery. 5 moderate atrophy with moderate chronic ischemic white matter demyelination.
--- NOTE | 2023-05-02 16:58 | XR ---
EXAMINATION TYPE: XR chest 1V DATE OF EXAM: 05/02/2023 COMPARISON: 02/18/2023 HISTORY: Shortness of breath TECHNIQUE: Single frontal view of the chest is obtained. FINDINGS: There is diffuse interstitial opacity and partial consolidative opacity in the right upper lobe and l eft mid lower lung zones. The findings are consistent with diffuse pneumonia or pulmonary edema. The heart size is normal. There is no pneumothorax or large pleural effusion. The osseous structures are intact IMPRESSION: Marked acute cardiopulmonary disease as described above consistent with diffuse pneumonia or pulmonar y edema.
[2023-05-02 17:06] LABS: INR 0.9 (<1.2); Partial Thromboplastin Time 22.6 sec (22.0-30.0)
[2023-05-02] MEDS ORDERED: PNEUMONIA PROTOCOL UTILIZED 1 EACH MISC PO PRN (18:16)
[2023-05-02] MEDS ORDERED: AZITHROMYCIN 500 MG in SODIUM CHLORIDE 0.9% 250 ML IVPB STA (18:16)
[2023-05-02] MEDS ORDERED: SODIUM CHLORIDE 0.9% 1,000 ML IV STA (18:17)
[2023-05-02] MEDS ORDERED: NALOXONE 0.4 MG/ML 1 ML VIAL IV PRN (18:20)
[2023-05-02] MEDS: metroNIDAZOLE-NS PMX 500 MG in SALINE 1 100ML.BAG IVPB SCH ×3 (18:45→23:39)
[2023-05-02] MEDS ORDERED: ONDANSETRON 4 MG TAB PEG/G-TUBE PRN (19:01)
[2023-05-02] MEDS: IPRATROPIUM-ALBUTEROL 3 ML NEB INHALATION SCH (19:32)
[2023-05-02] MEDS: BUDESONIDE 0.5 MG/2 ML NEBU INHALATION SCH (19:32)
--- NOTE | 2023-05-02 20:38 | CT ---
EXAMINATION TYPE: CT chest wo con CT DLP: 249.6 mGycm, Automated exposure control for dose reduction was used. DATE OF EXAM: 05/02/2023 8:23 PM COMPARISON: 02/23/2023. CLINICAL INDICATION:Female, 63 years old with history of cap; PHH, pneumonia TECHNIQUE: Multiple axial images were obtained through the chest. Sagittal and coronal reformats were created for review. Contrast used: mL of (None if empty) Oral contrast used: (None if empty) FINDINGS: LUNGS/ PLEURA: Multifocal airspace opacities as seen on same day radiograph. There is intralobular se ptal thickening. AIRWAY: Patent and unremarkable. HEART: The heart is mildly enlarged for size. Coronary artery cusp patient's. MEDIASTINUM: No gross evidence of adenopathy. VASCULATURE: Atherosclerotic calcifications are present throughout the aorta and its branches. MUSCULOSKELETAL: Mild disc degeneration changes are present throughout the thoracolumbar spine. SOFT TISSUES/LYMPH NODES: Unremarkable. LOWER NECK: No significant findings. UPPER ABDOMEN: Calcified granulomas within the spleen. IMPRESSION: Multifocal airspace opacities with pulmonary vascular congestion. Correlate for pneumonia and CHF.
[2023-05-02] MEDS ORDERED: NON FORMULARY DRUG (Lacosamide [Vimpat] 100 MG Tablet) PEG/G-TUBE SCH (21:00)
[2023-05-02] MEDS: haloperidoL 5 MG TAB PEG/G-TUBE SCH (22:41)
[2023-05-02] MEDS: METOPROLOL TARTRATE 25 MG TAB PEG/G-TUBE SCH (22:43)
[2023-05-02] MEDS: LACOSAMIDE 150 MG TABLET PEG/G-TUBE SCH (22:43)
[2023-05-02] MEDS: APIXABAN 5 MG TAB PEG/G-TUBE SCH (22:43)
[2023-05-02] MEDS: PIPERACILLIN-TAZOBACTAM 3.375 GM in SODIUM CHLORIDE 0.9% 100 ML IVPB SCH (23:32)
[2023-05-02] MEDS: DIVALPROEX SPRINKLE 125 MG CAP.SPRINK PEG/G-TUBE SCH (23:40)
[2023-05-02] MEDS: risperiDONE 1 MG TAB PEG/G-TUBE SCH (23:40)
[2023-05-03] MEDS: metroNIDAZOLE-NS PMX 500 MG in SALINE 1 100ML.BAG IVPB SCH ×3 (07:53→23:13)
[2023-05-03] MEDS: IPRATROPIUM-ALBUTEROL 3 ML NEB INHALATION SCH ×4 (07:54→20:01)
[2023-05-03] MEDS: BUDESONIDE 0.5 MG/2 ML NEBU INHALATION SCH ×2 (07:54→20:01)
[2023-05-03] MEDS: PIPERACILLIN-TAZOBACTAM 3.375 GM in SODIUM CHLORIDE 0.9% 100 ML IVPB SCH ×2 (09:36→16:55)
[2023-05-03] MEDS: predniSONE 20 MG TAB PEG/G-TUBE SCH (10:24)
[2023-05-03] MEDS: LACOSAMIDE 150 MG TABLET PEG/G-TUBE SCH ×2 (10:24→21:34)
[2023-05-03] MEDS: DIVALPROEX SPRINKLE 125 MG CAP.SPRINK PEG/G-TUBE SCH ×2 (10:24→22:27)
[2023-05-03] MEDS: haloperidoL 5 MG TAB PEG/G-TUBE SCH ×2 (10:24→21:34)
[2023-05-03] MEDS: FUROSEMIDE 20 MG TAB PEG/G-TUBE SCH (10:25)
[2023-05-03] MEDS: METOPROLOL TARTRATE 25 MG TAB PEG/G-TUBE SCH ×2 (10:25→21:34)
[2023-05-03] MEDS: LOSARTAN 25 MG TAB PEG/G-TUBE SCH (10:25)
[2023-05-03] MEDS: APIXABAN 5 MG TAB PEG/G-TUBE SCH ×3 (10:25→22:09)
[2023-05-03] MEDS: AZITHROMYCIN 500 MG TAB PO SCH (10:25)
[2023-05-03] MEDS: SERTRALINE 100 MG TAB PEG/G-TUBE SCH (10:25)
[2023-05-03 10:40] LABS: Glucose,Whole Blood 67 mg/dL (70-110)
[2023-05-03] MEDS: DAPAGLIFLOZIN PROPANEDIOL 10 MG TABLET PO SCH (10:49)
[2023-05-03] MEDS: SERTRALINE 25 MG TAB PEG/G-TUBE SCH (10:50)
--- NOTE | 2023-05-03 10:56 | XR ---
EXAMINATION TYPE: XR chest 2V DATE OF EXAM: 05/03/2023 7:42 AM CLINICAL INDICATION:Female, 63 years old with history of pneumonia; PHH COMPARISON: Chest x-ray and CT chest 05/02/2023 TECHNIQUE: XR chest 2V Frontal and lateral views of the chest. FINDINGS: Lines/Tubes: EKG leads overlie the chest. No indwelling lines are seen. Lungs/Pleura: Diminished lung volumes. Diffuse interstitial opacities and patchy alveolar opacities b ilaterally, similar to previous. No sizable pleural effusion or pneumothorax. Pulmonary vascularity: Mild pulmonary vascular congestion. Heart/mediastinum: Cardiomediastinal silhouette is stable. Heart appears mildly enlarged. Musculoskeletal: No acute osseous pathology. Other findings: None IMPRESSION: Low lung volume exam with essentially stable bilateral pulmonary opacities. Findings may represent mu ltifocal pneumonia and/or edema.
--- NOTE | 2023-05-03 11:46 | CT ---
EXAMINATION TYPE: CT abdomen wo con CT DLP: 326.1 mGycm, Automated exposure control for dose reduction was used. DATE OF EXAM: 05/03/2023 11:38 AM COMPARISON: CT abdomen pelvis most recent from CLINICAL INDICATION:Female, 63 years old with history of rule out infection; abd pain TECHNIQUE: Axial CT of the abdomen and pelvis. Sagittal and coronal reformats were created on a [address] [facility] [employer] I workstation. Contrast used: mL of , (none if empty) Oral contrast used: without Oral Contrast (none if empty) FINDINGS: LOWER CHEST: Multifocal airspace opacities in the lung bases. The heart is moderately enlarged for si ze. Coronary artery cusp patient's. ABDOMEN LIVER: Unremarkable GALLBLADDER AND BILE DUCTS: Unremarkable. PANCREAS: Unremarkable. SPLEEN: Scattered calcified granulomas. ADRENAL GLANDS: Unremarkable. KIDNEYS AND URETERS: No evidence of hydronephrosis or renal calculus. The ureters are unremarkable. PELVIS BLADDER: Unremarkable REPRODUCTIVE: Unremarkable. ABDOMEN & PELVIS STOMACH AND BOWEL: No evidence of bowel obstruction. PEG tube with tip in appropriate position. PEG t ube site skin is within normal limits no significant fat stranding or fluid collection. PERITONEUM/RETROPERITONEUM: No evidence of pneumoperitoneum or free fluid. VASCULATURE: Mild atherosclerotic calcifications are present throughout the abdominal aorta and its b ranches. No evidence of aortic aneurysm. MUSCULOSKELETAL: No acute osseous abnormalities. Mild disc degeneration changes are present throughou t the thoracolumbar spine. LYMPH NODES: No gross evidence for lymphadenopathy. SOFT TISSUE/ABDOMINAL WALL: A calculus projects over the left abdomen. IMPRESSION: 1. Multifocal pneumonia in the lung bases. 2. PEG tube in appropriate position. No evidence for infection identified. 3. No acute intra-abdominal process.
[2023-05-03] MEDS: ACETAMINOPHEN TAB 325 MG TAB PO PRN (11:55)
[2023-05-03 12:17] LABS: Glucose,Whole Blood 94 mg/dL (70-110)
[2023-05-03 15:22] LABS: Anisocytosis Slight; Basophils % (A) 0 %; Eosinophils % (A) 0 %; HCT 32.3 % (34.0-46.0); HGB 10.4 gm/dL (11.4-16.0); Hypochromasia Slight; Lymphocytes # (A) 1.2 k/uL (1.0-4.8); Lymphocytes % (A) 15 %; MCH 26.5 pg (25.0-35.0); MCHC 32.2 g/dL (31.0-37.0); MCV 82.3 fL (80.0-100.0); Mean Platelet Volume 8.9; Monocytes # (A) 0.2 k/uL (0-1.0); Monocytes % (A) 3 %; Neutrophils # (A) 6.8 k/uL (1.3-7.7); Neutrophils % (A) 81 %; Platelet Count 193 k/uL (150-450); RBC 3.93 m/uL (3.80-5.40); RDW 16.5 % (11.5-15.5); WBC 8.4 k/uL (3.8-10.6)
[2023-05-03 15:24] LABS: African American GFR (CKD) 71 (>60 ml/min/1.73 sqM); Anion Gap 14 mmol/L; Blood Urea Nitrogen 73 mg/dL (7-17); Calcium 8.9 mg/dL (8.4-10.2); Carbon Dioxide 15 mmol/L (22-30); Chloride 115 mmol/L (98-107); Glucose 73 mg/dL (74-99); Non-African American GFR(CKD) 62 (>60 ml/min/1.73 sqM); Sodium 144 mmol/L (137-145)
[2023-05-03 15:37] LABS: Potassium 5.2 mmol/L (3.5-5.1)
[2023-05-03] MEDS: ASPIRIN 81 MG PO SCH (15:50)
[2023-05-03 17:16] LABS: Glucose,Whole Blood 91 mg/dL (70-110)
[2023-05-03] MEDS: risperiDONE 1 MG TAB PEG/G-TUBE SCH (21:34)
[2023-05-03] MEDS: DEXTROSE 5%-0.9% NACL 1,000 ML IV SCH (22:08)
[2023-05-03] MEDS: PANTOPRAZOLE 40 MG/10 ML VIAL IVP SCH (22:25)
--- NOTE | 2023-05-04 00:05 | P.CNNES ---
History of Present Illness Consult date: 05/03/23 Requesting physician: Mohit Harley Reason for Consult: abn ct brain History of Present Illness: Patient is a 63-year-old female came to the hospital by ambulance yesterday at 3:05 PM, for generalized weakness, and altered mental status. Patient not able to provide any history. Patient's son Mr. Rascon was present, who provided with a history. He states that patient in the last couple weeks has developed weakness of the right arm. In the last 5-7 days, she has been sleeping all day, all night. In the last 3 days, she was not responding. He has also noticed that her right arm has also become more weak, as previously she used to grab a sucker with the right hand, but now she is not able to do it. Patient has history of a stroke with left hemiplegia, about 20 years ago. Over the years it has become more spastic on the left side. Patient's son states that patient frequently gets UTI, pneumonia, kidney problems and pancreatitis. Patient cannot have MRI because of presence of pain pump. Patient has history of seizure disorder, but no seizures have been noticed by the son. Patient's son says that patient also has history of paranoid schizophrenia. On 04/27/2023, patient vomited large amount. He does have a picture of her vomitus on his cell phone. Patient's son is very concerned about pressure sores that she developed in the hospital. EMS flow sheet not available in the chart. Vital signs on arrival blood pressure 118/41, pulse rate 86 temperature 97.6. Blood test shows normal CBC, PT/PTT, normal sodium, potassium 5.9, BUN 86, creatinine 1.07. AST is mildly elevated 62, ALT 37. Ammonia is mildly elevated 32, UA is negative. Influenza, RSV and coronavirus PCR negative. UA shows moderate amount of leukocyte esterase, [address] head revealed large remote infarct involving the right temporal parietal lobe. Possible new area of lacunar infarct in the left basal ganglia. MRI would be useful for further evaluation. No acute bleed or mass effect. Aneurysm clipping on the left middle cerebral artery. Moderate atrophy with moderate chronic ischemic white matter demyelination. I personally reviewed CT head, the lesion seen in the basal ganglia is possibly subacute to chronic in nature, very small. EKG shows sinus rhythm. Chest x-ray with marked acute cardiopulmonary disease consistent with diffuse pneumonia or pulmonary edema. CT of the chest revealed multifocal airspace opacities with pulmonary vascular congestion. Correlate for pneumonia and CHF. CT of the abdomen and pelvis revealed multifocal pneumonia in the lung bases. PEG tube in appropriate p osition. No evidence for infection identified. No acute intra-abdominal process. Patient has been seen by neurology service multiple times in the past, the last time seen on 07/10/2022. Patient has history of seizure disorder, was taking Vimpat 100 mg twice a day and Depakote 500 mg in the morning and 250 mg at night. Patient has history of seizure disorder, came with episode of unresponsiveness in January 2022. 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 Patient apparently is on Vimpat 100 mg twice a day and Vimpat 50 mg twice a day, Eliquis 5 mg twice a day, Depakote 125 mg twice a day, Zoloft 125 mg daily, risperidone 1 mg at bedtime, Haldol 2.5 mg every 12 hours, metoprolol prednisone 40 mg, losartan Lasix Review of Systems This is as per report from patient's son. Constitutional: Denies chills (Always cold), Denies fever Eyes: bilateral blurred vision, denies pain, denies loss of vision (Does not see good) Ears: deny: decreased hearing, ear discharge, earache Ears, nose, mouth and throat: Denies headache, Denies sore throat Cardiovascular: Reports shortness of breath, Denies chest pain Respiratory: Reports cough, Reports excessive sputum, Denies hemoptysis Gastrointestinal: Reports vomiting (On Thursday), Denies abdominal pain, Denies diarrhea, Denies nausea Genitourinary: Denies dysuria, Denies hematuria, Denies urge incontinence Musculoskeletal: Denies low back pain, Denies neck pain Integumentary: Reports change in hair/nails, Reports dryness, Reports foot/leg ulcers, Reports rash, Reports sores, Reports wounds, Denies pruritus Neurological: Reports as per HPI, Reports weakness Psychiatric: Reports paranoia, Denies anxiety, Denies depression Endocrine: Reports fatigue, Denies weight change Hematologic/Lymphatic: Reports easy bleeding, Reports easy bruising Past Medical History Past Medical History: CVA/TIA, Hyperlipidemia, Hypertension, Osteoarthritis (OA) Additional Past Medical History / Comment(s): ANEMIA, CVA WITH L ARM WEAKNESS AND bilateral LEG WEAKNESS, hx. gout, PANCREATITIS, pseudoseizures, UTI, gallstones, tremors, hx multiple brain aneursyms, pressure injuries to right calf and left heel History of Any Multi-Drug Resistant Organisms: ESBL, MRSA Date of last positivie culture/infection: 02/03/23-MRSA; 03/18/18 ESBL MDRO Source:: Right Lateral Calf- MRSA; Urine-ESBL Past Surgical History: Section, Cholecystectomy, Orthopedic Surgery Additional Past Surgical History / Comment(s): hx aneurysms- COILS AND STENTS TO BRAIN, repair tendons r/t gout BILATERAL FEET; Pain pump inserted on 04/21/22 Past Anesthesia/Blood Transfusion Reactions: No Reported Reaction Additional Past Anesthesia/Blood Transfusion Reaction / Comment(s): PT HAS HAD BLOOD TRANSFUSIONS FOR ANEMIA-NO REACTION. Past Psychological History: Anxiety, Depression, Schizophrenia Smoking Status: Former smoker - Past Family History Sister(s) Family Medical History: Myocardial Infarction ([place]) Father Family Medical History: Cancer Additional Family Medical History / Comment(s): throat, lung, and rectal cancer Mother Family Medical History: Myocardial Infarction ([place]) Additional Family Medical History / Comment(s): stroke Medications and Allergies Home Medications Medication Instructions Recorded Confirmed Type Lacosamide [Vimpat] 100 mg PEG/G-TUBE BID 07/03/22 05/02/23 History Sertraline [Zoloft] 25 mg PEG/G-TUBE DAILY 07/03/22 05/02/23 History Sertraline [Zoloft] 100 mg PEG/G-TUBE DAILY 07/03/22 05/02/23 History risperiDONE [RisperDAL] 1 mg PEG/G-TUBE HS 07/03/22 05/02/23 History Ascorbic Acid [Vitamin C] 250 mg PEG/G-TUBE DAILY 02/18/23 05/02/23 History Metoprolol Tartrate [Lopressor] 25 mg PEG/G-TUBE BID 02/18/23 05/02/23 History haloperidoL [Haldol] 2.5 mg PEG/G-TUBE Q12H 02/18/23 05/02/23 History Budesonide [Pulmicort] 0.5 mg INHALATION RT-BID 30 Days 02/25/23 05/02/23 Rx #60 ml Ipratropium-Albuterol Nebulize 3 ml INHALATION RT-QID 30 Days 02/25/23 05/02/23 Rx [Duoneb 0.5 mg-3 mg/3 ml Soln] #120 each Apixaban [Eliquis] 5 mg PEG/G-TUBE BID 05/02/23 05/02/23 History Dapagliflozin Propanediol [Farxiga] 10 mg PEG/G-TUBE DAILY 05/02/23 05/02/23 History Divalproex Sprinkle [Depakote 125 mg PEG/G-TUBE BID 05/02/23 05/02/23 History Sprinkle] Furosemide [Lasix] 20 mg PEG/G-TUBE DAILY 05/02/23 05/02/23 History Lacosamide [Vimpat] 50 mg PEG/G-TUBE BID 05/02/23 05/02/23 History Losartan [Cozaar] 25 mg PEG/G-TUBE DAILY 05/02/23 05/02/23 History Ondansetron [Zofran] 4 mg PEG/G-TUBE Q6H PRN 05/02/23 05/02/23 History predniSONE [Deltasone] 40 mg PEG/G-TUBE DAILY 05/02/23 05/02/23 History Allergies Allergy/AdvReac Type Severity Reaction Status Date / Time hydromorphone [From Dilaudid] Allergy Swelling Verified 05/02/23 17:39 morphine Allergy Swelling Verified 05/02/23 17:39 Physical Examination - Vital Signs Vital Signs: Vital Signs Temp Pulse Pulse Resp BP BP Pulse Ox 05/03/23 08:11 78 05/03/23 07:59 91 L 05/03/23 07:56 97.6 F 74 18 157/83 100 05/03/23 07:54 74 05/03/23 02:00 97.5 F L 68 14 163/84 95 05/02/23 22:30 14 05/02/23 22:09 98 F 83 18 155/80 94 L 05/02/23 20:16 77 16 128/74 97 05/02/23 19:48 76 05/02/23 19:33 78 05/02/23 18:54 76 16 127/68 99 05/02/23 18:00 69 16 139/56 94 L 05/02/23 17:00 78 16 128/66 95 05/02/23 16:04 63 16 122/49 94 L 05/02/23 15:15 97.6 F 86 16 118/41 94 L Intake and Output 05/02/23 05/03/23 05/03/23 22:59 06:59 14:59 Other: Voiding Method External Catheter External Catheter # Voids 4 Weight 56.699 kg Patient is an elderly Afro-[place] female, who appears older than her stated age. Patient is encephalopathic, somnolent, but does wake up on calling her name loudly. Patient knows name of her son Abiodun, and she states that she feels "all right". She smiles at me, telling that she remembers me from previous encounter. Speech is mildly dysarthric, but no definitive aphasia. Her speech was quite limited. Patient can name and repeat very well. Attention, concentration is limited and fund of knowledge also limited. On cranial nerve examination, pupils are equal, round and reacting to light, visual campoverde could not be tested reliably because of her mental status. E xtraocular muscles are intact with no nystagmus. Face is symmetric, tongue protrudes to the midline. Palatal elevation and sensation normal, hearing is slightly decreased and shoulder shrug decreased on the left. Her facial sensation normal. On muscle strength testing, patient is completely spastic hemiplegic on the left side. Her left arm is completely flexed at the elbow, and hand with tight body artist. Her right arm also appears very weak, spastic, with body artist of about 3, able to lift her arm about 20. This is much change as compared to my last examination from 02/21/2022, when her right arm was completely normal. In the lower limbs, patient can only wiggle her right foot, but no movement on the left. Deep tendon reflexes are 3 in the right upper limb, 2 in the left upper limb, 1 in the lower limbs and plantars are upgoing bilaterally. Sensory to touch was difficult to assess because of patient's noncooperation. Cerebellar functions could not be tested in any extremity because of spasticity and weakness. Tone is increased in all 4 extremities, severely on the left, but moderate to severe on the right as well. Gait patient nonambulatory for last 1 year. On general examination, there is no carotid bruit or murmur, S1-S2 audible. Chest is clear on consultation. Abdomen is soft nontender. No organomegaly, bowel sounds present. patient has multiple bedsores in the lower limbs distally and in the calves. Patient has very dry skin, scaling. Results - Laboratory Findings CBC and BMP: 05/03/23 14:51 05/03/23 14:51 Abnormal Lab Findings: Abnormal Labs 05/02/23 05/02/23 05/02/23 15:19 15:19 15:19 Hgb 10.8 L RDW 16.6 H Potassium 5.9 H Chloride 109 H BUN 86 H Creatinine 1.07 H Glucose 73 L POC Glucose (mg/dL) Magnesium 2.8 H AST 62 H ALT 37 H Alkaline Phosphatase 153 H Ammonia Albumin 3.4 L Urine Glucose (UA) 1+ H Ur Leukocyte Esterase Moderate H Urine WBC 7 H Urine Bacteria Rare H 05/02/23 05/03/23 15:19 10:37 Hgb RDW Potassium Chloride BUN Creatinine Glucose POC Glucose (mg/dL) 67 L Magnesium AST ALT Alkaline Phosphatase Ammonia 32 H Albumin Urine Glucose (UA) Ur Leukocyte Esterase Urine WBC Urine Bacteria Assessment and Plan Assessment: * Possible subacute ischemic stroke with right hemiparesis. Her strength of the right upper limb appears very weak as compared to the previous examinations. Patient not a candidate for TPA, as her symptoms have been present for couple weeks. She was also on Eliquis. 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 * Seizure disorder, currently in remission. * Multifocal pneumonia * Possible UTI * CHF * History of brain aneurysm, status post coiling over the left MCA. * Presence of pain pump. * Anemia * Multiple bedsores involving the lower extremities * Bedbound status Plan: * Patient has presented with subacute (about two-week history of) right-sided weakness. CT head revealed possible lacunar infarct left basal ganglia. * MRI of the brain cannot be performed because of presence of aneurysm coils, and pain pump. * Check carotid Doppler * 2-D echo * Continue Eliquis 5 mg twice a day. Patient was not taking any antiplatelet medication at home. Agree with starting aspirin 81 mg daily. * Continue Vimpat 150 mg twice a day and Depakote 125 mg twice a day. Patient's seizures are well controlled. * PT OT, speech therapy * Patient has aspiration pneumonia, possible UTI. Patient started on azithromycin and Zosyn. ID on board. * Patient's son very concerned about bedsores. Discussed with patient's nurse about appropriate techniques to prevent worsening of bedsores. Will defer to IM and ID. * DVT prophylaxis: Patient on Eliquis. * Dr. Tino Gray Will resume neurology service the morning. * Discussed with patient's son in detail. Thank you for the consult.
[2023-05-04] MEDS: PIPERACILLIN-TAZOBACTAM 3.375 GM in SODIUM CHLORIDE 0.9% 100 ML IVPB SCH ×3 (00:25→15:27)
--- NOTE | 2023-05-04 02:56 | PN ---
PROGRESS NOTE SUBJECTIVE: This 63-year-old -Domin[place] female being treated for possible UTI, weakness, aspiration pneumonia. She has bilateral pneumonia, possible CHF. Altered mental status is better. Vital signs are reviewed. We can do a swallow eval in the morning to check for her dysphagia and esophageal dysmobility. She remains on tube feedings at home. Family says she slow talks when she tries to eat. OBJECTIVE: CARDIOVASCULAR: S1, S2. LUNGS: Rales at the bases. HEMATOLOGY: Negative for Homans. PSYCH: Fair mood and affect. ASSESSMENT: Acute on chronic diastolic heart failure, UTIs, bilateral pneumonia, COPD, seizure history, esophageal dysmobility, malnutrition. She has a leg ulcers second-degree on the left heel for which we are going to wait for Infectious Disease to see. PROGNOSIS: Guarded. Please see further orders. MMODL / IJN: [id number] /
--- NOTE | 2023-05-04 06:47 | HP ---
HISTORY AND PHYSICAL HISTORY OF PRESENT ILLNESS: Jeane Urbano is a 63-year-old lady who was seen on 05/02/2023 in the emergency room. She came to the hospital with altered mental status. CT shows possible stroke, CHF, COPD, and pneumonia, possibly aspiration from tube feedings. She normal self in the ER whereas before she was acting funny at home and unresponsive at home. She family. MEDICATIONS: She is on: 1. Vimpat 100 b.i.d. 2. Zoloft . 3. Risperdal 1 mg daily. 4. Vitamin C daily. 5. Lopressor 25 PEG tube b.i.d. 6. Eliquis 5 mg b.i.d. 7. Farxiga 10 mg daily. 8. Depakote 125 b.i.d. 9. Lasix 20 daily. 10.Cozaar 25 mg daily. 11.Zofran 4 mg PEG tube daily. 12. 40 mEq daily. ALLERGIES: Hydromorphone, morphine. PAST SURGICAL HISTORY: , cholecystectomy, orthopedic surgery, bilateral feet surgery. PAST FAMILY HISTORY: Sister, myocardial infarction. Father had throat, rectal, and lung cancer. Mother, myocardial infarction. PHYSICAL EXAMINATION: GENERAL: She has contractures x4. NEUROLOGIC: She has 3/5 weakness strength in upper and lower arms. INTEGUMENT: Dry skin turgor. Dry mucous membranes. Left heel has stage II to III ulcer . No purulent drainage. CARDIOVASCULAR: Irregularly irregular rhythm. LUNGS: Scattered rhonchi and wheeze. GI: She has a PEG tube in place. She has normal bowel sounds. DIAGNOSTIC STUDIES: EKG shows no ischemia. CAT scan shows bilateral pneumonia versus CHF. UA is borderline for UTI. BNP is over 10,000. Hemoglobin 10.8, white count is normal 7.9. ASSESSMENT: 1. Altered mental status. 2. Probable aspiration pneumonia. 3. COPD. 4. CHF diastolic. 5. Acute on chronic anemia. 6. Liver enzyme elevation. 7. Elevated pneumonia. 8. Probable cirrhosis. CAT scan is reviewed. Continue broad-spectrum antibiotics, updraft treatments, etc. PROGNOSIS: Follow up in the next 24 to 48 hours. Prognosis guarded. MMODL / IJN: [id number] /
[2023-05-04] MEDS: metroNIDAZOLE-NS PMX 500 MG in SALINE 1 100ML.BAG IVPB SCH ×2 (07:11→15:27)
[2023-05-04 07:37] LABS: Glucose,Whole Blood 87 mg/dL (70-110)
--- NOTE | 2023-05-04 08:25 | US ---
EXAMINATION TYPE: US carotid duplex BILAT DATE OF EXAM: 05/04/2023 COMPARISON: NONE CLINICAL INDICATION: Female, 63 years old with history of CVA; CVA TECHNIQUE: Carotid duplex ultrasound examination. Indirect Doppler criteria was utilized. FINDINGS: EXAM MEASUREMENTS: RIGHT: Peak Systolic Velocity (PSV) cm/sec ----- Right CCA: 59.8 ----- Right ICA: 76 ----- Right ECA: 92.4 ICA/CCA ratio: 1.2 RIGHT: End Diastole cm/sec ----- Right CCA: 10.4 ----- Right ICA: 14.9 ----- Right ECA: 16.3 LEFT: Peak Systolic Velocity (PSV) cm/sec ----- Left CCA: 48.9 ----- Left ICA: 53.5 ----- Left ECA: 54.4 ICA/CCA ratio: 1.1 LEFT: End Diastole cm/sec ----- Left CCA: 12.7 ----- Left ICA: 19.9 ----- Left ECA: 9.06 VERTEBRALS (direction of flow): Right Vertebral: Antegrade Left Vertebral: Antegrade Rhythm: Normal NEONATAL SPECIALIST NOTES: No significant stenosis seen IMPRESSION: Less than 50% stenosis of the bilateral carotid bifurcations. Criteria for Assigning % of Stenosis / Diameter reduction (Estimation based on the indirect measurements of the internal carotid artery velocities (ICA PSV). 1. Normal (no stenosis)=ICA PSV < 125 cm/s: ratio < 2.0: ICA EDV<40 cm/s. 2. Less than 50% stenosis=ICA PSV < 125 cm/s: ratio < 2.0: ICA EDV<40 cm/s. 3. 50 to 69% stenosis=ICA PSV of 125 to 230 cm/s: ration 2.0 ? 4.0: ICA EDV 40-100 cm/s. 4. Greater than 70% stenosis to near occlusion= ICA PSV > 230 cm/s: ratio > 4.0: ICA EDV > 100 cm/s. 5. Near occlusion= ICA PSV velocities may be low or undetectable: variable ratio and ICA EDV. 6. Total occlusion=unable to detect flow.
[2023-05-04] MEDS: BUDESONIDE 0.5 MG/2 ML NEBU INHALATION SCH ×2 (08:57→18:26)
[2023-05-04] MEDS: IPRATROPIUM-ALBUTEROL 3 ML NEB INHALATION SCH ×4 (08:57→18:26)
[2023-05-04] MEDS: HEPARIN SODIUM,PORCINE 5,000 UNIT/ML 1 ML VIAL SQ SCH ×2 (10:37→15:28)
--- NOTE | 2023-05-04 10:55 | P.CNPUL ---
History of Present Illness Consult date: 05/04/23 Reason for consult: dyspnea, COPD, hypoxemia, pneumonia Chief complaint: Shortness breath History of present illness: 63-year-old with history of stroke and left hemiparesis patient has a history of recurrent pneumonia in the past, she is on supplemental oxygen 1 L nasal cannula she has a PEG tube placement as well. She presented with altered mental status she is predominantly bedbound patient has been more weak and less responsive the last 4-5 days before coming to the hospital intermittent cough is present short ness of breath, patient has been mostly unresponsive and has been sleeping more than usual. Her past medical history significant for CVA with left hemiparesis, dyslipidemia, hypertension, osteoarthritis chronic anemia history of gout pancreatitis solution disease or atrial tract infection history of multiple brain aneurysm as well. Most recent labs include white cell count 8.4 hemoglobin and hematocrit 10.4/32 platelet count 1 93,000. Sodium is 140 over procedure 5.2 BUN and creatinine is 73/0.97 glucose 73 her chest x-ray low lung volumes stable bilateral pulmonary opacities suggestive of multifocal pneumonia or edema. Computed tomography scan of the chest revealed presence of multifocal air space disease with septal thickening. Her blood cultures positive for gram- positive cocci in clusters. Currently patient is on bronchodilators aspirin Pulmicort, Depakote, Lasix via PEG tube subcu heparin, Vimpat, Cozaar, Flagyl 500 mg IV Zosyn 3.375 prednisone 40 mg to Review of Systems ROS unobtainable: due to mental status Past Medical History Past Medical History: CVA/TIA, Hyperlipidemia, Hypertension, Osteoarthritis (OA) Additional Past Medical History / Comment(s): ANEMIA, CVA WITH L ARM WEAKNESS AND bilateral LEG WEAKNESS, hx. gout, PANCREATITIS, pseudoseizures, UTI, galls tones, tremors, hx multiple brain aneursyms, pressure injuries to right calf and left heel History of Any Multi-Drug Resistant Organisms: ESBL, MRSA Date of last positivie culture/infection: 02/03/23-MRSA; 03/18/18 ESBL MDRO Source:: Right Lateral Calf- MRSA; Urine-ESBL Past Surgical History: Section, Cholecystectomy, Orthopedic Surgery Additional Past Surgical History / Comment(s): hx aneurysms- COILS AND STENTS TO BRAIN, repair tendons r/t gout BILATERAL FEET; Pain pump inserted on 04/21/22 Past Anesthesia/Blood Transfusion Reactions: No Reported Reaction Additional Past Anesthesia/Blood Transfusion Reaction / Comment(s): PT HAS HAD BLOOD TRANSFUSIONS FOR ANEMIA-NO REACTION. Past Psychological History: Anxiety, Depression, Schizophrenia Smoking Status: Former smoker - Past Family History Sister(s) Family Medical History: Myocardial Infarction ([place]) Father Family Medical History: Cancer Additional Family Medical History / Comment(s): throat, lung, and rectal cancer Mother Family Medical History: Myocardial Infarction ([place]) Additional Family Medical History / Comment(s): stroke Medications and Allergies Home Medications Medication Instructions Recorded Confirmed Type Lacosamide [Vimpat] 100 mg PEG/G-TUBE BID 07/03/22 05/02/23 History Sertraline [Zoloft] 25 mg PEG/G-TUBE DAILY 07/03/22 05/02/23 History Sertraline [Zoloft] 100 mg PEG/G-TUBE DAILY 07/03/22 05/02/23 History risperiDONE [RisperDAL] 1 mg PEG/G-TUBE HS 07/03/22 05/02/23 History Ascorbic Acid [Vitamin C] 250 mg PEG/G-TUBE DAILY 02/18/23 05/02/23 History Metoprolol Tartrate [Lopressor] 25 mg PEG/G-TUBE BID 02/18/23 05/02/23 History haloperidoL [Haldol] 2.5 mg PEG/G-TUBE Q12H 02/18/23 05/02/23 History Budesonide [Pulmicort] 0.5 mg INHALATION RT-BID 30 Days 02/25/23 05/02/23 Rx #60 ml Ipratropium-Albuterol Nebulize 3 ml INHALATION RT-QID 30 Days 02/25/23 05/02/23 Rx [Duoneb 0.5 mg-3 mg/3 ml Soln] #120 each Apixaban [Eliquis] 5 mg PEG/G-TUBE BID 05/02/23 05/02/23 History Dapagliflozin Propanediol [Farxiga] 10 mg PEG/G-TUBE DAILY 05/02/23 05/02/23 History Divalproex Sprinkle [Depakote 125 mg PEG/G-TUBE BID 05/02/23 05/02/23 History Sprinkle] Furosemide [Lasix] 20 mg PEG/G-TUBE DAILY 05/02/23 05/02/23 History Lacosamide [Vimpat] 50 mg PEG/G-TUBE BID 05/02/23 05/02/23 History Losartan [Cozaar] 25 mg PEG/G-TUBE DAILY 05/02/23 05/02/23 History Ondansetron [Zofran] 4 mg PEG/G-TUBE Q6H PRN 05/02/23 05/02/23 History predniSONE [Deltasone] 40 mg PEG/G-TUBE DAILY 05/02/23 05/02/23 History Allergies Allergy/AdvReac Type Severity Reaction Status Date / Time hydromorphone [From Dilaudid] Allergy Swelling Verified 05/02/23 17:39 morphine Allergy Swelling Verified 05/02/23 17:39 Physical Exam Vitals: Vital Signs Temp Pulse Pulse Resp BP Pulse Ox 05/04/23 09:07 78 05/04/23 08:59 99 05/04/23 08:57 76 05/04/23 07:26 97.9 F 69 18 136/76 98 05/04/23 01:40 97.8 F 82 18 155/82 99 05/03/23 20:20 97.8 F 83 18 117/70 99 05/03/23 20:16 80 05/03/23 20:03 78 05/03/23 16:03 82 05/03/23 15:52 79 05/03/23 12:15 98.9 F 72 16 127/80 98 Intake and Output 05/03/23 05/04/23 05/04/23 22:59 06:59 14:59 Intake Total 600 Output Total 500 Balance 600 -500 Intake: Intake, IV Titration 600 Amount Sodium Chloride 0.9% 1, 600 000 ml @ 50 mls/hr IV . Q20H STA Rx#:[id number] Output: Urine 500 Other: Voiding Method External Catheter - Constitutional General appearance: average body habitus, cooperative, disheveled - EENT Eyes: EOMI, PERRLA Ears: bilateral: normal - Neck Neck: normal ROM Carotids: bilateral: upstroke normal Thyroid: bilateral: normal size - Respiratory Respiratory: right: diminished - Cardiovascular Rhythm: regular Heart sounds: normal: S1, S2 - Gastrointestinal General gastrointestinal: decreased bowel sounds - Integumentary Integumentary: decreased turgor - Musculoskeletal Musculoskeletal: generalized weakness, left sided weakness Results - Laboratory Findings CBC and BMP: 05/03/23 14:51 05/03/23 14:51 PT/INR, D-dimer PT 10.0 sec (9.0-12.0) 05/02/23 15:19 INR 0.9 (<1.2) 05/02/23 15:19 Abnormal lab findings: Abnormal Labs 05/02/23 05/02/23 05/02/23 15:19 15:19 15:19 Hgb 10.8 L Hct RDW 16.6 H Potassium 5.9 H Chloride 109 H Carbon Dioxide BUN 86 H Creatinine 1.07 H Glucose 73 L POC Glucose (mg/dL) Magnesium 2.8 H AST 62 H ALT 37 H Alkaline Phosphatase 153 H Ammonia Albumin 3.4 L Urine Glucose (UA) 1+ H Ur Leukocyte Esterase Moderate H Urine WBC 7 H Urine Bacteria Rare H 05/02/23 05/03/23 05/03/23 15:19 10:37 14:51 Hgb 10.4 L Hct 32.3 L RDW 16.5 H Potassium Chloride Carbon Dioxide BUN Creatinine Glucose POC Glucose (mg/dL) 67 L Magnesium AST ALT Alkaline Phosphatase Ammonia 32 H Albumin Urine Glucose (UA) Ur Leukocyte Esterase Urine WBC Urine Bacteria 05/03/23 14:51 Hgb Hct RDW Potassium 5.2 H Chloride 115 H Carbon Dioxide 15 L BUN 73 H Creatinine Glucose 73 L POC Glucose (mg/dL) Magnesium AST ALT Alkaline Phosphatase Ammonia Albumin Urine Glucose (UA) Ur Leukocyte Esterase Urine WBC Urine Bacteria - Diagnostic Findings Chest x-ray: report reviewed, image reviewed CT scan - chest: report reviewed, image reviewed (Chest x-ray and computed tomography scan of the chest report reviewed finding as noted above) Assessment and Plan Assessment: Bilateral patchy infiltrate cystoscopy of the hospital-acquired pneumonia/healthcare associated pneumonia Bacteremia related gram-positive cocci Acute on chronic hypoxic history failure related to above CVA with left hemiparesis Hypertension hypertensive cardiovascular disease Plan: Continue Zosyn and Flagyl, however IV vancomycin can be considered noted that infectious diseases following as well will defer to his expertise of ID service Continue bronchodilators and oral steroids PT OT evaluation Further plan of care as per clinical response of the patient Time with Patient: Greater than 30
[2023-05-04 12:01] LABS: Glucose,Whole Blood 67 mg/dL (70-110)
[2023-05-04] MEDS: APIXABAN 5 MG TAB PEG/G-TUBE SCH (12:08)
[2023-05-04] MEDS ORDERED: DEXTROSE 50% SYRINGE 50 ML IVP ONE (12:10)
[2023-05-04] MEDS ORDERED: DEXTROSE 50% SYRINGE 50 ML IVP STA (12:10)
[2023-05-04] MEDS: ASPIRIN 81 MG PO SCH (12:18)
[2023-05-04] MEDS: AZITHROMYCIN 500 MG TAB PO SCH (12:19)
[2023-05-04] MEDS: LACOSAMIDE 150 MG TABLET PEG/G-TUBE SCH ×2 (12:19→23:15)
[2023-05-04] MEDS: LOSARTAN 25 MG TAB PEG/G-TUBE SCH (12:19)
[2023-05-04] MEDS: DAPAGLIFLOZIN PROPANEDIOL 10 MG TABLET PO SCH (12:19)
[2023-05-04] MEDS: METOPROLOL TARTRATE 25 MG TAB PEG/G-TUBE SCH ×2 (12:19→23:15)
[2023-05-04] MEDS: predniSONE 20 MG TAB PEG/G-TUBE SCH (12:19)
[2023-05-04] MEDS: haloperidoL 5 MG TAB PEG/G-TUBE SCH ×2 (12:19→23:15)
[2023-05-04] MEDS: SERTRALINE 100 MG TAB PEG/G-TUBE SCH (12:20)
[2023-05-04] MEDS: FUROSEMIDE 20 MG TAB PEG/G-TUBE SCH (12:20)
[2023-05-04] MEDS: SERTRALINE 25 MG TAB PEG/G-TUBE SCH (12:20)
[2023-05-04] MEDS: DIVALPROEX SPRINKLE 125 MG CAP.SPRINK PEG/G-TUBE SCH ×2 (12:20→23:16)
[2023-05-04 12:37] LABS: Glucose,Whole Blood 147 mg/dL (70-110)
[2023-05-04] MEDS: PANTOPRAZOLE 40 MG/10 ML VIAL IVP SCH ×2 (12:52→23:16)
[2023-05-04 12:59] LABS: Anisocytosis Slight; Basophils % (A) 0 %; Eosinophils % (A) 0 %; HCT 29.1 % (34.0-46.0); HGB 9.3 gm/dL (11.4-16.0); Hypochromasia Slight; Lymphocytes # (A) 1.1 k/uL (1.0-4.8); Lymphocytes % (A) 13 %; MCH 26.8 pg (25.0-35.0); MCHC 32.2 g/dL (31.0-37.0); MCV 83.4 fL (80.0-100.0); Mean Platelet Volume 8.9; Monocytes # (A) 0.2 k/uL (0-1.0); Monocytes % (A) 3 %; Neutrophils # (A) 7.4 k/uL (1.3-7.7); Neutrophils % (A) 84 %; Platelet Count 284 k/uL (150-450); RBC 3.48 m/uL (3.80-5.40); RDW 16.5 % (11.5-15.5); WBC 8.9 k/uL (3.8-10.6)
--- NOTE | 2023-05-04 13:09 | XR ---
EXAMINATION TYPE: XR KUB DATE OF EXAM: 05/04/2023 12:59 PM CLINICAL INDICATION:Female, 63 years old with history of peg tube drainage/bleeding; [facility] COMPARISON: 01/20/2023 TECHNIQUE: One radiographic view of the abdomen was obtained. FINDINGS: PEG tube in appropriate position with contrast in the gastric lumen. No extravasation of co ntrast. The bowel gas pattern is nonspecific without dilated loops of small or large bowel. There is no evidence for organomegaly or pneumoperitoneum. The osseous structures are intact. Pelvic phlebol iths are present. Fecal material and gas are demonstrated throughout the colon and rectum. Atherosc lerosis of the arterial vasculature. Atrophic facets projects over the left abdomen. IMPRESSION: PEG tube in appropriate position.
[2023-05-04 13:11] LABS: ALT 29 U/L (4-34); AST 41 U/L (14-36); African American GFR (CKD) 62 (>60 ml/min/1.73 sqM); Albumin 2.9 g/dL (3.5-5.0); Albumin/Globulin Ratio 0.9; Alkaline Phosphatase 96 U/L (38-126); Anion Gap 14 mmol/L; Blood Urea Nitrogen 68 mg/dL (7-17); Calcium 9.2 mg/dL (8.4-10.2); Carbon Dioxide 16 mmol/L (22-30); Chloride 117 mmol/L (98-107); Globulin 3.2 g/dL; Glucose 59 mg/dL (74-99); Non-African American GFR(CKD) 54 (>60 ml/min/1.73 sqM); Potassium 4.1 mmol/L (3.5-5.1); Sodium 147 mmol/L (137-145); Total Bilirubin 0.6 mg/dL (0.2-1.3); Total Protein 6.1 g/dL (6.3-8.2)
--- NOTE | 2023-05-04 14:45 | P.GSCN ---
History of Present Illness Consult date: 05/04/23 History of present illness: CHIEF COMPLAINT: Altered mental status HISTORY OF PRESENT ILLNESS: This is a 63-year-old female who presented to the hospital with fatigue and altered mental status. She has history of stroke and is bedbound at baseline. She had PEG tube placed in 09/26/2022. Surgical service was consulted due to blood in the PEG tubing. The output through the PEG tube is brownish in color. Patient does have some mild bleeding around the PEG tube site. She is on Eliquis for a blood thinner. Tube feeds are currently on hold Patient is lying in bed comfortably. Denies any abdominal pain. Denies any nausea or vomiting. Computed tomography scan abdomen showed no acute abdominal process. PEG tube in appropriate position. Patient admitted to hospital with pneumonia. PAST MEDICAL HISTORY: CVA, Hyperlipidemia, Hypertension, Osteoarthritis (OA), pseudoseizures, UTI, gallstones, tremors, hx multiple brain aneursyms, pressure injuries to right calf and left , schizophrenia, anxiety and depression PAST SURGICAL HISTORY: See below MEDICATIONS: See below ALLERGIES: See below SOCIAL HISTORY: No illicit drug use. REVIEW OF SYSTEMS: CONSTITUTIONAL: Denies fever or chills. HEENT: Denies blurred vision, vision changes, or eye pain. Denies hemoptysis CARDIOVASCULAR: Denies chest pain or pressure. RESPIRATORY: No shortness of breath. GASTROINTESTINAL: See HPI for pertinent findings HEMATOLOGIC: Denies bleeding disorders. GENITOURINARY: Denies any blood in urine or increased urinary frequency. SKIN: Denies pruitis. Denies rash. PHYSICAL EXAM: VITAL SIGNS: Reviewed GENERAL: Well-developed in no acute distress. HEENT: No sclera icterus. Extraocular movements grossly intact. Moist buccal mucosa. Head is atraumatic, normocephalic. No nasal drainage. ABDOMEN: Soft. Nondistended. Nontender. PEG tube site with minimal blood noted around it. No blood noted in tubing. NEUROLOGIC: Awake. LABORATORY DATA: WBC 8.9 Hgb 9.3 platelets 284 Sodium 147 potassium 4.1 creatinine 1.08 Ammonia 32,009 IMAGING: Computed tomography scan abdomen and pelvis with a multifocal pneumonia in the lung bases. PEG tube in appropriate position. No evidence for infection identified. No acute intra-abdominal process. Kub xray with peg o gram. PEG tube in appropriate position. No extravasation of contrast ASSESSMENT: 1. Mildly blood in peg tubing. Resolved. Peg tube in appropriate position. PLAN: -Okay to resume tube feeds and medications through PEG tube -Okay to proceed with modified barium swallow -Continue to monitor Physician Oil Sprayer note has been reviewed by physician. Signing provider agrees with the documented findings, assessment, and plan of care. 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 gout, PANCREATITIS, pseudoseizures, UTI, gallstones, tremors, hx multiple brain aneursyms, pressure injuries to right calf and left heel History of Any Multi-Drug Resistant Organisms: ESBL, MRSA Year Discovered:: 02/03/23-MRSA; 03/18/18 ESBL MDRO Source:: Right Lateral Calf- MRSA; Urine-ESBL Past Surgical History: Section, Cholecystectomy, Orthopedic Surgery Additional Past Surgical History / Comment(s): hx aneurysms- COILS AND STENTS TO BRAIN, repair tendons r/t gout BILATERAL FEET; Pain pump inserted on 04/21/22 Past Anesthesia/Blood Transfusion Reactions: No Reported Reaction Additional Past Anesthesia/Blood Transfusion Reaction / Comm: PT HAS HAD BLOOD TRANSFUSIONS FOR ANEMIA-NO REACTION. Past Psychological History: Anxiety, Depression, Schizophrenia Smoking Status: Former smoker - Past Family History Sister(s) Family Medical History: Myocardial Infarction ([place]) Father Family Medical History: Cancer Additional Family Medical History / Comment(s): throat, lung, and rectal cancer Mother Family Medical History: Myocardial Infarction ([place]) Additional Family Medical History / Comment(s): stroke Medications and Allergies Home Medications Medication Instructions Recorded Confirmed Type Lacosamide [Vimpat] 100 mg PEG/G-TUBE BID 07/03/22 05/02/23 History Sertraline [Zoloft] 25 mg PEG/G-TUBE DAILY 07/03/22 05/02/23 History Sertraline [Zoloft] 100 mg PEG/G-TUBE DAILY 07/03/22 05/02/23 History risperiDONE [RisperDAL] 1 mg PEG/G-TUBE HS 07/03/22 05/02/23 History Ascorbic Acid [Vitamin C] 250 mg PEG/G-TUBE DAILY 02/18/23 05/02/23 History Metoprolol Tartrate [Lopressor] 25 mg PEG/G-TUBE BID 02/18/23 05/02/23 History haloperidoL [Haldol] 2.5 mg PEG/G-TUBE Q12H 02/18/23 05/02/23 History Budesonide [Pulmicort] 0.5 mg INHALATION RT-BID 30 Days 02/25/23 05/02/23 Rx #60 ml Ipratropium-Albuterol Nebulize 3 ml INHALATION RT-QID 30 Days 02/25/23 05/02/23 Rx [Duoneb 0.5 mg-3 mg/3 ml Soln] #120 each Apixaban [Eliquis] 5 mg PEG/G-TUBE BID 05/02/23 05/02/23 History Dapagliflozin Propanediol [Farxiga] 10 mg PEG/G-TUBE DAILY 05/02/23 05/02/23 History Divalproex Sprinkle [Depakote 125 mg PEG/G-TUBE BID 05/02/23 05/02/23 History Sprinkle] Furosemide [Lasix] 20 mg PEG/G-TUBE DAILY 05/02/23 05/02/23 History Lacosamide [Vimpat] 50 mg PEG/G-TUBE BID 05/02/23 05/02/23 History Losartan [Cozaar] 25 mg PEG/G-TUBE DAILY 05/02/23 05/02/23 History Ondansetron [Zofran] 4 mg PEG/G-TUBE Q6H PRN 05/02/23 05/02/23 History predniSONE [Deltasone] 40 mg PEG/G-TUBE DAILY 05/02/23 05/02/23 History Allergies Allergy/AdvReac Type Severity Reaction Status Date / Time hydromorphone [From Dilaudid] Allergy Swelling Verified 05/02/23 17:39 morphine Allergy Swelling Verified 05/02/23 17:39 Surgical - Exam Vital Signs Temp Pulse Resp BP Pulse Ox 97.6 F 86 16 118/41 94 L 05/02/23 15:15 05/02/23 15:15 05/02/23 15:15 05/02/23 15:15 05/02/23 15:15 Results - Labs 05/04/23 11:40 05/04/23 11:40 Abnormal Lab Results - Last 24 Hours (Table) 05/03/23 05/03/23 05/04/23 Range/Units 14:51 14:51 11:59 Hgb 10.4 L (11.4-16.0) gm/dL Hct 32.3 L (34.0-46.0) % RDW 16.5 H (11.5-15.5) % Potassium 5.2 H (3.5-5.1) mmol/L Chloride 115 H (98-107) mmol/L Carbon Dioxide 15 L (22-30) mmol/L BUN 73 H (7-17) mg/dL Glucose 73 L (74-99) mg/dL POC Glucose (mg/dL) 67 L (70-110) mg/dL Microbiology - Last 24 Hours (Table) 05/02/23 18:42 Blood Culture Gram Stain - Preliminary Blood Blood Culture - Preliminary 05/02/23 15:19 Urine Culture - Final Urine,Catheterized 05/02/23 18:42 Blood Culture - Preliminary Blood Diabetes panel 05/03/23 Range/Units 14:51 Sodium 144 (137-145) mmol/L Potassium 5.2 H (3.5-5.1) mmol/L Chloride 115 H (98-107) mmol/L Carbon Dioxide 15 L (22-30) mmol/L BUN 73 H (7-17) mg/dL Creatinine 0.97 (0.52-1.04) mg/dL Glucose 73 L (74-99) mg/dL Calcium 8.9 (8.4-10.2) mg/dL Calcium panel 05/03/23 Range/Units 14:51 Calcium 8.9 (8.4-10.2) mg/dL Pituitary panel 05/03/23 Range/Units 14:51 Sodium 144 (137-145) mmol/L Potassium 5.2 H (3.5-5.1) mmol/L Chloride 115 H (98-107) mmol/L Carbon Dioxide 15 L (22-30) mmol/L BUN 73 H (7-17) mg/dL Creatinine 0.97 (0.52-1.04) mg/dL Glucose 73 L (74-99) mg/dL Calcium 8.9 (8.4-10.2) mg/dL Adrenal panel 05/03/23 Range/Units 14:51 Sodium 144 (137-145) mmol/L Potassium 5.2 H (3.5-5.1) mmol/L Chloride 115 H (98-107) mmol/L Carbon Dioxide 15 L (22-30) mmol/L BUN 73 H (7-17) mg/dL Creatinine 0.97 (0.52-1.04) mg/dL Glucose 73 L (74-99) mg/dL Calcium 8.9 (8.4-10.2) mg/dL
[2023-05-04] MEDS ORDERED: VANCOMYCIN IV PER PHARMACY 1 EACH MISC MISCELLANE PRN (17:45)
--- NOTE | 2023-05-04 17:49 | P.PN ---
Subjective Progress Note Date: 05/04/23 I am seeing the patient for the first time during this admission. Please refer to Dr. Spivey's note for further details. Patient stated she had old stroke with residual left significant weakness. She also stated she has right sided weakness and but could not tell me if new or old and for how long it lasted for. Objective - Vital Signs Vital signs: Vital Signs Temp 97.5 F L 05/04/23 11:52 Pulse 78 05/04/23 15:35 Resp 18 05/04/23 11:52 BP 154/95 05/04/23 11:52 Pulse Ox 98 05/04/23 11:52 FiO2 Intake & Output 05/03/23 05/04/23 05/04/23 18:59 06:59 18:59 Intake Total 600 Output Total 500 800 Balance 600 -500 -800 Weight 47 kg Intake: Intake, IV Titration 600 Amount Sodium Chloride 0.9% 1, 600 000 ml @ 50 mls/hr IV . Q20H STA Rx#:[id number] Output: Urine 500 800 Other: Voiding Method External Catheter External Catheter External Catheter - Exam General: Lying in bed and is not in acute distress. Neuro: Limited. The patient is awake, alert, oriented to self, place. She is able to follow some simple commands. Pupils are round, equal and reactive to light. No dysarthria but is hypophonic. Motor: Significant weakness over the left side with spasticity. While the right ankle have antigravity and antigravity of the right upper but unable to assess full strength. - Labs CBC & Chem 7: 05/04/23 11:40 05/04/23 11:40 Labs: Abnormal Lab Results - Last 24 Hours (Table) 05/04/23 05/04/23 05/04/23 Range/Units 11:40 11:40 11:59 RBC 3.48 L (3.80-5.40) m/uL Hgb 9.3 L (11.4-16.0) gm/dL Hct 29.1 L (34.0-46.0) % RDW 16.5 H (11.5-15.5) % Sodium 147 H (137-145) mmol/L Chloride 117 H (98-107) mmol/L Carbon Dioxide 16 L (22-30) mmol/L BUN 68 H (7-17) mg/dL Creatinine 1.08 H (0.52-1.04) mg/dL Glucose 59 L (74-99) mg/dL POC Glucose (mg/dL) 67 L (70-110) mg/dL AST 41 H (14-36) U/L Total Protein 6.1 L (6.3-8.2) g/dL Albumin 2.9 L (3.5-5.0) g/dL 05/04/23 Range/Units 12:35 RBC (3.80-5.40) m/uL Hgb (11.4-16.0) gm/dL Hct (34.0-46.0) % RDW (11.5-15.5) % Sodium (137-145) mmol/L Chloride (98-107) mmol/L Carbon Dioxide (22-30) mmol/L BUN (7-17) mg/dL Creatinine (0.52-1.04) mg/dL Glucose (74-99) mg/dL POC Glucose (mg/dL) 147 H (70-110) mg/dL AST (14-36) U/L Total Protein (6.3-8.2) g/dL Albumin (3.5-5.0) g/dL Microbiology - Last 24 Hours (Table) 05/02/23 18:42 Blood Culture Gram Stain - Preliminary Blood Blood Culture - Preliminary 05/02/23 15:19 Urine Culture - Final Urine,Catheterized 05/02/23 18:42 Blood Culture - Preliminary Blood Assessment and Plan Assessment: * Possible subacute ischemic stroke with right hemiparesis. Her strength of the right upper limb appears very weak as compared to the previous examinations. Patient not a candidate for TPA, as her symptoms have been present for couple weeks. She was also on Eliquis. 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 * Seizure disorder, currently in remission. * Multifocal pneumonia * Possible UTI * Mild hypoglycemic events (high 60's). * CHF * History of brain aneurysm, status post coiling over the left MCA. * Presence of pain pump. * Anemia * Multiple bedsores involving the lower extremities * Bedbound status Plan: * Patient has presented with subacute (about two-week history of) right-sided weakness. CT head revealed possible lacunar infarct left basal ganglia. * MRI of the brain cannot be performed because of presence of aneurysm coils, and pain pump. So I will obtain a repeat CT head. * Carotid Doppler: Layne as less than 50% stenosis in bilateral carotid bifurcation. * 2-D echo: pending. * Blood that is mild in peg tube. It seems home Eliquis 5 mg twice a day was placed on hold. Per Dr. Spivey, patient was not taking any antiplatelet medication at home and patient was started on Aspirin 81 mg daily. * Continue Vimpat 150 mg twice a day and Depakote 125 mg twice a day. * PT OT, speech therapy * Patient has aspiration pneumonia, possible UTI. ID on board. * General surgery is on board. * Please avoid hypoglycemia. Will defer management to primary team. * DVT prophylaxis: Patient on subq heparin. Time with Patient: Less than 30
[2023-05-04] MEDS ORDERED: VANCOMYCIN 1,000 MG in SODIUM CHLORIDE 0.9% 250 ML IVPB ONE (18:30)
--- NOTE | 2023-05-04 19:10 | CT ---
EXAMINATION TYPE: CT brain wo con CT DLP: 1307.1 mGycm, Automated exposure control for dose reduction was used. DATE OF EXAM: 05/04/2023 6:32 PM COMPARISON: 05/02/2023. CLINICAL INDICATION:Female, 63 years old with history of ?subacute left basal ganglia on recent ct, s ubacute left basal ganglia on recent ct TECHNIQUE: Brain: Axial CT images of the brain were obtained with coronal and sagittal reformats created and rev iewed. Contrast used: None. Oral contrast used: None. FINDINGS: Brain: Extra-axial spaces: No abnormal extra-axial fluid collections. Ventricular system: Within normal limits Cerebral parenchyma: Remote right MCA territory infarct. Metallic clips present in the left middle cr anial fossa near the craig of [place]. No definitive left basal ganglia lacunar injury. No acute intr aparenchymal hemorrhage or mass effect. The vanessa-white junction is well differentiated. Cerebellum: Unremarkable. Mass effect: No evidence of midline shift. Intracranial vasculature: Atherosclerotic calcifications of the intracranial vessels. Soft tissues: Normal. Calvarium/osseous structures: No depressed skull fracture. Paranasal sinuses and mastoid air cells: Mild scattered paranasal sinus disease. Visualized orbits: Orbital contents are intact. IMPRESSION: 1. No definitive acute subacute left basal ganglia lacunar injury. Consider MRI for complete evaluat ion. 2. Remote right MCA territory injury similar prior.
[2023-05-04 20:23] LABS: Glucose,Whole Blood 206 mg/dL (70-110)
--- NOTE | 2023-05-04 22:32 | PN ---
PROGRESS NOTE SUBJECTIVE: Consult with java integration developer for bilateral pneumonia, aspiration pneumonia. She is breathing better, more alert. UTI, pending urine culture. Broad-spectrum antibiotics to cover her pneumonia as well as UTI. OBJECTIVE: CARDIOVASCULAR: S1, S2. LUNGS: Clear. GI: Soft. Bacteremia related to gram-positive cocci, possibly contamination. Acute on chronic hypoxemic respiratory failure. CVA in the past with left hemiparesis, hypertensive heart disease, bilateral patchy infiltrate, healthcare acquired pneumonia. Continue Zosyn, Flagyl, and Infectious Disease will be consulted. Continue current treatment. PROGNOSIS: Guarded. Dr. Tristan is going to be seeing the patient and await for foot ulcer on the left heel. He will continue on her oxygen, breathing treatments, etc. Broad-spectrum antibiotics. Please see further orders. MMODL / IJN: [id number] /
[2023-05-04] MEDS: risperiDONE 1 MG TAB PEG/G-TUBE SCH (23:15)
[2023-05-04 23:51] LABS: Chol/HDL Ratio 3.47 Ratio; LDL Cholesterol,Calculated 108.7 mg/dL (0.0-131.0); VLDL Calculation 16.56 mg/dL (5.00-40.00)
[2023-05-05] MEDS: PIPERACILLIN-TAZOBACTAM 3.375 GM in SODIUM CHLORIDE 0.9% 100 ML IVPB SCH ×3 (00:29→15:39)
[2023-05-05] MEDS: HEPARIN SODIUM,PORCINE 5,000 UNIT/ML 1 ML VIAL SQ SCH ×2 (00:33→08:07)
[2023-05-05] MEDS: metroNIDAZOLE-NS PMX 500 MG in SALINE 1 100ML.BAG IVPB SCH (00:34)
[2023-05-05] MEDS: DEXTROSE 5%-0.9% NACL 1,000 ML IV SCH ×2 (00:48→08:42)
[2023-05-05 02:39] LABS: Glucose,Whole Blood 159 mg/dL (70-110)
--- NOTE | 2023-05-05 06:08 | P.CONS ---
History of Present Illness - Reason for Consult Consult date: 05/04/23 Left heel wound Requesting physician: Mohit Harley - Chief Complaint Weakness and mental status changes x few days - History of Present Illness Patient is a 63-year-old -[place] female with multiple comorbidities and did have a multiple admission to the hospital patient was brought into the ER 2 days ago for evaluation of fatigue and mental status changes and this patient symptom has been going on for about 5 days before the patient was brought to the hospital patient on presentation to the hospital was afebrile and no fever has been recorded during this hospital stay, patient did have a normal white count BUN and creatinine was mildly elevated liver enzymes are mildly elevated urine dip shows moderate leukocyte esterase and 7 WBC influenza RSV and COVID testing was negative patient did have a CT of the brain negative for any bleed chest CT multifocal airspace opacities and pulmonary vascular congestion abdominal CT PEG tube in the appropriate position no evidence of infection identified patient did have a wound to the left heel area that has been chronic for her for this infectious he was consulted for further management patient currently denies having any headache or URI symptoms no chest pain or shortness of did have occasional cough no sputum production no vomiting has been reported patient denies pain to the left heel wound area and no drainage has been noticed by the nursing staff Review of Systems Positive point and negatives has been mentioned in the HPI, complete review of systems was performed and all other systems are negative Past Medical History Past Medical History: CVA/TIA, Hyperlipidemia, Hypertension, Osteoarthritis (OA) Additional Past Medical History / Comment(s): ANEMIA, CVA WITH L ARM WEAKNESS AND bilateral LEG WEAKNESS, hx. gout, PANCREATITIS, pseudoseizures, UTI, gallstones, tremors, hx multiple brain aneursyms, pressure injuries to right calf and left heel History of Any Multi-Drug Resistant Organisms: ESBL, MRSA Year Discovered:: 02/03/23-MRSA; 03/18/18 ESBL MDRO Source:: Right Lateral Calf- MRSA; Urine-ESBL Past Surgical History: Section, Cholecystectomy, Orthopedic Surgery Additional Past Surgical History / Comment(s): hx aneurysms- COILS AND STENTS TO BRAIN, repair tendons r/t gout BILATERAL FEET; Pain pump inserted on 04/21/22 Past Anesthesia/Blood Transfusion Reactions: No Reported Reaction Additional Past Anesthesia/Blood Transfusion Reaction / Comm: PT HAS HAD BLOOD TRANSFUSIONS FOR ANEMIA-NO REACTION. Past Psychological History: Anxiety, Depression, Schizophrenia Smoking Status: Former smoker - Past Family History Sister(s) Family Medical History: Myocardial Infarction (VT) Father Family Medical History: Cancer Additional Family Medical History / Comment(s): throat, lung, and rectal cancer Mother Family Medical History: Myocardial Infarction (VT) Additional Family Medical History / Comment(s): stroke Medications and Allergies Home Medications Medication Instructions Recorded Confirmed Type Lacosamide [Vimpat] 100 mg PEG/G-TUBE BID 07/03/22 05/02/23 History Sertraline [Zoloft] 25 mg PEG/G-TUBE DAILY 07/03/22 05/02/23 History Sertraline [Zoloft] 100 mg PEG/G-TUBE DAILY 07/03/22 05/02/23 History risperiDONE [RisperDAL] 1 mg PEG/G-TUBE HS 07/03/22 05/02/23 History Ascorbic Acid [Vitamin C] 250 mg PEG/G-TUBE DAILY 02/18/23 05/02/23 History Metoprolol Tartrate [Lopressor] 25 mg PEG/G-TUBE BID 02/18/23 05/02/23 History haloperidoL [Haldol] 2.5 mg PEG/G-TUBE Q12H 02/18/23 05/02/23 History Budesonide [Pulmicort] 0.5 mg INHALATION RT-BID 30 Days 02/25/23 05/02/23 Rx #60 ml Ipratropium-Albuterol Nebulize 3 ml INHALATION RT-QID 30 Days 02/25/23 05/02/23 Rx [Duoneb 0.5 mg-3 mg/3 ml Soln] #120 each Apixaban [Eliquis] 5 mg PEG/G-TUBE BID 05/02/23 05/02/23 History Dapagliflozin Propanediol [Farxiga] 10 mg PEG/G-TUBE DAILY 05/02/23 05/02/23 History Divalproex Sprinkle [Depakote 125 mg PEG/G-TUBE BID 05/02/23 05/02/23 History Sprinkle] Furosemide [Lasix] 20 mg PEG/G-TUBE DAILY 05/02/23 05/02/23 History Lacosamide [Vimpat] 50 mg PEG/G-TUBE BID 05/02/23 05/02/23 History Losartan [Cozaar] 25 mg PEG/G-TUBE DAILY 05/02/23 05/02/23 History Ondansetron [Zofran] 4 mg PEG/G-TUBE Q6H PRN 05/02/23 05/02/23 History predniSONE [Deltasone] 40 mg PEG/G-TUBE DAILY 05/02/23 05/02/23 History Allergies Allergy/AdvReac Type Severity Reaction Status Date / Time hydromorphone [From Dilaudid] Allergy Swelling Verified 05/02/23 17:39 morphine Allergy Swelling Verified 05/02/23 17:39 Physical Exam Vitals: Vital Signs Temp Pulse Pulse Resp BP Pulse Ox 05/04/23 09:07 78 05/04/23 08:59 99 05/04/23 08:57 76 05/04/23 07:26 97.9 F 69 18 136/76 98 05/04/23 01:40 97.8 F 82 18 155/82 99 05/03/23 20:20 97.8 F 83 18 117/70 99 05/03/23 20:16 80 05/03/23 20:03 78 05/03/23 16:03 82 05/03/23 15:52 79 05/03/23 12:15 98.9 F 72 16 127/80 98 Intake and Output 05/03/23 05/04/23 05/04/23 22:59 06:59 14:59 Intake Total 600 Output Total 500 Balance 600 -500 Intake: Intake, IV Titration 600 Amount Sodium Chloride 0.9% 1, 600 000 ml @ 50 mls/hr IV . Q20H STA Rx#:[id number] Output: Urine 500 Other: Voiding Method External Catheter GENERAL DESCRIPTION: Elderly female lying in bed, no distress. No tachypnea or accessory muscle of respiration use. HEENT: Shows Pallor , no scleral icterus. Oral mucous membrane is dry. No pharyngeal erythema or thrush NECK: Trachea central, no thyromegaly. LUNGS: Unlabored breathing. Decreased breath sounds at the base. HEART: S1, S2, regular rate and rhythm. No loud murmur ABDOMEN: Soft, no tenderness ,PEG site with minimal blood stained drainage EXTREMITIES: Left heel wound with the slough tissue no surrounding redness or drainage SKIN: No rash, no masses palpable. NEUROLOGICAL: The patient is awake, alert, oriented x3, mood and affect normal. Results CBC & Chem 7: 05/05/23 12:12 05/05/23 12:12 Labs: Abnormal Lab Results - Last 24 Hours (Table) 05/03/23 05/03/23 Range/Units 14:51 14:51 Hgb 10.4 L (11.4-16.0) gm/dL Hct 32.3 L (34.0-46.0) % RDW 16.5 H (11.5-15.5) % Potassium 5.2 H (3.5-5.1) mmol/L Chloride 115 H (98-107) mmol/L Carbon Dioxide 15 L (22-30) mmol/L BUN 73 H (7-17) mg/dL Glucose 73 L (74-99) mg/dL Microbiology - Last 24 Hours (Table) 05/02/23 18:42 Blood Culture Gram Stain - Preliminary Blood Blood Culture - Preliminary 05/02/23 15:19 Urine Culture - Final Urine,Catheterized 05/02/23 18:42 Blood Culture - Preliminary Blood Assessment and Plan (1) Pressure ulcer of left heel, stage 3 Current Visit: Yes Status: Acute Code(s): L89.623 - PRESSURE ULCER OF LEFT HEEL, STAGE 3 SNOMED Code(s): 37296151489728 (2) Pneumonia Current Visit: No Status: Acute Code(s): J18.9 - PNEUMONIA, UNSPECIFIED ORGANISM SNOMED Code(s): 691246499 Plan: 1patient with a left heel wound with some slough tissue more likely a pressure ulcer stage III would benefit from local wound care with the Medihoney/Santyl however the patient nurse mention the caregiver would not allow them to apply anything and to give the opening of the pressure 2-patient also have some weakness on admission with abnormal CT suggestive of multifocal pneumonia we will try to obtain a sputum for Gram stain culture check a CRP and a procalcitonin. 3patient to continue with the Zosyn to cover for the pneumonia no need for Fl agyl should be discontinued. We will follow on clinical condition and cultures to further adjust medication if needed Thank you for this consultation we will follow the patient along with you Dictation was produced using [employer] dictation software. please excuse any grammatical, word or spelling errors. Time with Patient: Greater than 30
[2023-05-05] MEDS: BUDESONIDE 0.5 MG/2 ML NEBU INHALATION SCH ×2 (08:04→18:36)
[2023-05-05] MEDS: IPRATROPIUM-ALBUTEROL 3 ML NEB INHALATION SCH ×4 (08:04→18:36)
[2023-05-05 08:07] LABS: Glucose,Whole Blood 112 mg/dL (70-110)
[2023-05-05] MEDS: LACOSAMIDE 150 MG TABLET PEG/G-TUBE SCH ×2 (08:07→21:58)
[2023-05-05] MEDS: ASPIRIN 81 MG PO SCH (08:07)
[2023-05-05] MEDS: FUROSEMIDE 20 MG TAB PEG/G-TUBE SCH (08:07)
[2023-05-05] MEDS: SERTRALINE 100 MG TAB PEG/G-TUBE SCH (08:07)
[2023-05-05] MEDS: LOSARTAN 25 MG TAB PEG/G-TUBE SCH (08:07)
[2023-05-05] MEDS: PANTOPRAZOLE 40 MG/10 ML VIAL IVP SCH ×2 (08:07→21:57)
[2023-05-05] MEDS: predniSONE 20 MG TAB PEG/G-TUBE SCH (08:07)
[2023-05-05] MEDS: METOPROLOL TARTRATE 25 MG TAB PEG/G-TUBE SCH ×2 (08:07→21:58)
[2023-05-05] MEDS: DAPAGLIFLOZIN PROPANEDIOL 10 MG TABLET PO SCH (08:08)
[2023-05-05] MEDS: DIVALPROEX SPRINKLE 125 MG CAP.SPRINK PEG/G-TUBE SCH ×2 (08:08→21:59)
[2023-05-05] MEDS: SERTRALINE 25 MG TAB PEG/G-TUBE SCH (08:08)
[2023-05-05] MEDS: haloperidoL 5 MG TAB PEG/G-TUBE SCH ×2 (08:08→21:58)
[2023-05-05] MEDS ORDERED: VANCOMYCIN 750 MG in SODIUM CHLORIDE 0.9% 250 ML IVPB SCH (12:00)
[2023-05-05 12:23] LABS: Glucose,Whole Blood 190 mg/dL (70-110)
[2023-05-05 12:47] LABS: Anisocytosis Slight; HCT 30.2 % (34.0-46.0); HGB 9.5 gm/dL (11.4-16.0); Hypochromasia Moderate; MCH 26.5 pg (25.0-35.0); MCHC 31.5 g/dL (31.0-37.0); MCV 84.1 fL (80.0-100.0); Mean Platelet Volume 8.6; Platelet Count 243 k/uL (150-450); Poikilocytosis Slight; RBC 3.59 m/uL (3.80-5.40); RDW 17.2 % (11.5-15.5)
[2023-05-05 13:15] LABS: ALT 25 U/L (4-34); AST 32 U/L (14-36); African American GFR (CKD) 68 (>60 ml/min/1.73 sqM); Albumin 2.6 g/dL (3.5-5.0); Albumin/Globulin Ratio 0.9; Alkaline Phosphatase 186 U/L (38-126); Anion Gap 13 mmol/L; Blood Urea Nitrogen 54 mg/dL (7-17); C Reactive Protein 7.3 mg/dL (<1.0); Calcium 8.8 mg/dL (8.4-10.2); Carbon Dioxide 14 mmol/L (22-30); Chloride 127 mmol/L (98-107); Glucose 158 mg/dL (74-99); Non-African American GFR(CKD) 59 (>60 ml/min/1.73 sqM); Potassium 4.3 mmol/L (3.5-5.1); Sodium 154 mmol/L (137-145); Total Bilirubin 0.3 mg/dL (0.2-1.3); Total Protein 5.6 g/dL (6.3-8.2)
--- NOTE | 2023-05-05 13:19 | P.PN ---
Subjective Progress Note Date: 05/05/23 Principal diagnosis: Left heel wound, pneumonia and positive blood culture Patient is a 63-year-old -[place] female with multiple comorbidities and did have a multiple admission to the hospital patient was brought to the ER for evaluation of fatigue and mental status changes patient noticed to have a nonhealing wound to the left heel area and some drainage around the PEG tube site CT abdominal pelvis was negative for any intra-abdominal abscess however the concern for possible pneumonia. On today's evaluation that is 05/05/2023, the patient remains to be afebrile the patient is breathing comfortably on 2 L nasal cannula oxygen, the patient denies having any chest pain shortness of breath did have mild cough but not begin any sputum, patient denies abdominal pain and no nausea/vomiting /diarrhea, denies pain to the left heel Patient did have a white count of 6.9, blood culture with the cold is negative staph Objective - Vital Signs Vital signs: Vital Signs Temp 98.7 F 05/05/23 11:55 Pulse 71 05/05/23 11:55 Resp 19 05/05/23 11:55 BP 144/81 05/05/23 11:55 Pulse Ox 98 05/05/23 11:55 FiO2 Intake & Output 05/04/23 05/05/23 05/05/23 18:59 06:59 18:59 Output Total 800 400 Balance -800 -400 Weight 47 kg 48 kg Output: Urine 800 400 Other: Voiding Method External Catheter External Catheter External Catheter # Bowel Movements 1 3 - Exam GENERAL DESCRIPTION: An elderly female lying in bed in no distress RESPIRATORY SYSTEM: Unlabored breathing , decreased breath sounds at bases HEART: S1 S2 regular rate and rhythm , ABDOMEN: Soft , no tenderness EXTREMITIES: No edema feet - Labs CBC & Chem 7: 05/05/23 12:12 05/05/23 12:12 Labs: Abnormal Lab Results - Last 24 Hours (Table) 05/04/23 05/05/23 05/05/23 Range/Units 20:21 02:38 08:04 RBC (3.80-5.40) m/uL Hgb (11.4-16.0) gm/dL Hct (34.0-46.0) % RDW (11.5-15.5) % POC Glucose (mg/dL) 206 H 159 H 112 H (70-110) mg/dL 05/05/23 05/05/23 Range/Units 12:12 12:22 RBC 3.59 L (3.80-5.40) m/uL Hgb 9.5 L (11.4-16.0) gm/dL Hct 30.2 L (34.0-46.0) % RDW 17.2 H (11.5-15.5) % POC Glucose (mg/dL) 190 H (70-110) mg/dL Microbiology - Last 24 Hours (Table) 05/02/23 18:42 Blood Culture - Preliminary Blood 05/02/23 18:42 Blood Culture Gram Stain - Preliminary Blood Blood Culture - Preliminary Coagulase Negative Staph Assessment and Plan (1) Positive blood culture Current Visit: Yes Status: Acute Code(s): R78.81 - BACTEREMIA SNOMED Code(s): 915793525 (2) Acute pneumonia Current Visit: Yes Status: Acute Code(s): J18.9 - PNEUMONIA, UNSPECIFIED ORGANISM SNOMED Code(s): 817219416 (3) Pressure ulcer of left heel, stage 3 Current Visit: Yes Status: Acute Code(s): L89.623 - PRESSURE ULCER OF LEFT HEEL, STAGE 3 SNOMED Code(s): 05539845243091 Plan: 1patient with a left heel wound with some slough tissue more likely a pressure ulcer stage III would benefit from local wound care with the Medihoney/Santyl however the patient nurse mention the caregiver would not allow them to apply anything and to give the opening of the pressure 2-patient also have some weakness on admission with abnormal CT suggestive of multifocal pneumonia we will try to obtain a sputum for Gram stain culture, CRP and a procalcitonin Levels are currently pending 3patient to continue with the Zosyn to cover for the pneumonia 4-positive blood culture with coagulase negative staph likely contamination vancomycin discontinued to decrease risk of nephrotoxicity Dictation was produced using [email or web address] dictation software. please excuse any grammatical, word or spelling errors. Time with Patient: Less than 30
--- NOTE | 2023-05-05 14:01 | P.PN ---
Subjective Progress Note Date: 05/05/23 CHIEF COMPLAINT: Blood noted in tube feeds HISTORY OF PRESENT ILLNESS: Patient again was noted to have blood in her tube feed residual about 30-50 mL's. Patient denies any abdominal pain. She has been having bowel movements. No nausea or vomiting reported. Gastric occult blood was positive. WBC 6.9 Hgb 9.5 PHYSICAL EXAM: VITAL SIGNS: Reviewed. GENERAL: Well-developed in no acute distress. ABDOMEN: Soft. Nondistended. Nontender. PEG tube site with very minimal dried blood otherwise clean dry and intact NEUROLOGIC: Alert and oriented. Cranial nerves II through XII grossly intact. ASSESSMENT: 1. Blood noted in Peg tube feed residual PLAN: -Hold all blood thinners -Hold tube feeding -Continue IV Protonix -Repeat CBC now and in AM -SCDs ordered for DVT prophylaxis Physician Clay Transporter note has been reviewed by physician. Signing provider agrees with the documented findings, assessment, and plan of care. Objective - Vital Signs Vital signs: Vital Signs Temp 97.7 F 05/05/23 08:03 Pulse 77 05/05/23 08:16 Resp 20 05/05/23 08:03 BP 143/75 05/05/23 08:03 Pulse Ox 94 L 05/05/23 08:04 FiO2 Intake & Output 05/04/23 05/05/23 05/05/23 18:59 06:59 18:59 Output Total 800 Balance -800 Weight 47 kg 48 kg Output: Urine 800 Other: Voiding Method External Catheter External Catheter External Catheter # Bowel Movements 1 3 - Labs CBC & Chem 7: 05/05/23 12:12 05/05/23 12:12 Labs: Abnormal Lab Results - Last 24 Hours (Table) 05/04/23 05/04/23 05/04/23 Range/Units 11:40 11:40 12:35 RBC 3.48 L (3.80-5.40) m/uL Hgb 9.3 L (11.4-16.0) gm/dL Hct 29.1 L (34.0-46.0) % RDW 16.5 H (11.5-15.5) % Sodium 147 H (137-145) mmol/L Chloride 117 H (98-107) mmol/L Carbon Dioxide 16 L (22-30) mmol/L BUN 68 H (7-17) mg/dL Creatinine 1.08 H (0.52-1.04) mg/dL Glucose 59 L (74-99) mg/dL POC Glucose (mg/dL) 147 H (70-110) mg/dL AST 41 H (14-36) U/L Total Protein 6.1 L (6.3-8.2) g/dL Albumin 2.9 L (3.5-5.0) g/dL 05/04/23 05/05/23 05/05/23 Range/Units 20:21 02:38 08:04 RBC (3.80-5.40) m/uL Hgb (11.4-16.0) gm/dL Hct (34.0-46.0) % RDW (11.5-15.5) % Sodium (137-145) mmol/L Chloride (98-107) mmol/L Carbon Dioxide (22-30) mmol/L BUN (7-17) mg/dL Creatinine (0.52-1.04) mg/dL Glucose (74-99) mg/dL POC Glucose (mg/dL) 206 H 159 H 112 H (70-110) mg/dL AST (14-36) U/L Total Protein (6.3-8.2) g/dL Albumin (3.5-5.0) g/dL Microbiology - Last 24 Hours (Table) 05/02/23 18:42 Blood Culture - Preliminary Blood 05/02/23 18:42 Blood Culture Gram Stain - Preliminary Blood Blood Culture - Preliminary Coagulase Negative Staph 05/02/23 15:19 Urine Culture - Final Urine,Catheterized
[2023-05-05 15:02] LABS: Eosinophils # (M) 0.07 k/uL (0-0.7); Lymphocytes # (M) 0.92 k/uL (1.0-4.8); Metamyelocytes # (M) 0.07 k/uL (0); Metamyelocytes % 1 %; Neutrophils # (M) 5.61 k/uL (1.3-7.7); Neutrophils % (M) 85 %; Nucleated Red Blood Cells 4 /100 WBC (0-0); Total Cells Counted 200; WBC 6.6 k/uL (3.8-10.6)
[2023-05-05 15:27] LABS: Anisocytosis Slight; HCT 27.5 % (34.0-46.0); HGB 8.8 gm/dL (11.4-16.0); Hypochromasia Moderate; MCHC 32.1 g/dL (31.0-37.0); MCV 84.2 fL (80.0-100.0); Mean Platelet Volume 8.1; Platelet Count 272 k/uL (150-450); Poikilocytosis Slight; RBC 3.27 m/uL (3.80-5.40); RDW 17.2 % (11.5-15.5)
--- NOTE | 2023-05-05 15:51 | P.PN ---
Subjective Progress Note Date: 05/05/23 Principal diagnosis: Bilateral patchy infiltrate hospital-acquired pneumonia/healthcare associated pneumonia Bacteremia related gram-positive cocci Acute on chronic hypoxic history failure related to above CVA with left hemiparesis Hypertension hypertensive cardiovascular disease 05/05/2023, patient seen and evaluated examined, he remains on antibiotics hemodynamic status stable, since its improved to 90% 2 L hemodynamic status stable, afebrile labs from today reviewed white cell count is 8 hemoglobin and hematocrit 8.8/27 platelet count 272 stool for occult blood is positive, and requests an aspirin is on hold, patient has been started on IV Protonix 63-year-old with history of stroke and left hemiparesis patient has a history of recurrent pneumonia in the past, she is on supplemental oxygen 1 L nasal cannula she has a PEG tube placement as well. She presented with altered mental status she is predominantly bedbound patient has been more weak and less responsive the last 4-5 days before coming to the hospital intermittent cough is present shortness of breath, patient has been mostly unresponsive and has been sleeping more than usual. Her past medical history significant for CVA with left hemiparesis, dyslipidemia, hypertension, osteoarthritis chronic anemia history of gout pancreatitis solution disease or atrial tract infection history of multiple brain aneurysm as well. Most recent labs include white cell count 8.4 hemoglobin and hematocrit 10.4/32 platelet count 1 93,000. Sodium is 140 over procedure 5.2 BUN and creatinine is 73/0.97 glucose 73 her chest x-ray low lung volumes stable bilateral pulmonary opacities suggestive of multifocal pneumonia or edema. Computed tomography scan of the chest revealed presence of multifocal air space disease with septal thickening. Her blood cultures positive for gram- positive cocci in clusters. Currently patient is on bronchodilators aspirin Pulmicort, Depakote, Lasix via PEG tube subcu heparin, Vimpat, Cozaar, Flagyl 500 mg IV Zosyn 3.375 prednisone 40 mg to Objective - Vital Signs Vital signs: Vital Signs Temp 98.7 F 05/05/23 11:55 Pulse 71 05/05/23 11:55 Resp 19 05/05/23 11:55 BP 144/81 05/05/23 11:55 Pulse Ox 98 05/05/23 11:55 FiO2 Intake & Output 05/04/23 05/05/23 05/05/23 18:59 06:59 18:59 Output Total 800 400 Balance -800 -400 Weight 47 kg 48 kg Output: Urine 800 400 Other: Voiding Method External Catheter External Catheter External Catheter # Bowel Movements 1 3 - Exam - Constitutional General appearance: average body habitus, cooperative, disheveled - EENT Eyes: EOMI, PERRLA Ears: bilateral: normal - Neck Neck: normal ROM Carotids: bilateral: upstroke normal Thyroid: bilateral: normal size - Respiratory Respiratory: right: diminished - Cardiovascular Rhythm: regular Heart sounds: normal: S1, S2 - Gastrointestinal General gastrointestinal: decreased bowel sounds - Integumentary Integumentary: decreased turgor - Musculoskeletal Musculoskeletal: generalized weakness, left sided weakness - Labs CBC & Chem 7: 05/05/23 15:11 05/05/23 12:12 Labs: Abnormal Lab Results - Last 24 Hours (Table) 05/04/23 05/05/23 05/05/23 Range/Units 20:21 02:38 08:04 RBC (3.80-5.40) m/uL Hgb (11.4-16.0) gm/dL Hct (34.0-46.0) % RDW (11.5-15.5) % Lymphocytes # (Manual) (1.0-4.8) k/uL Metamyelocytes # (Man) (0) k/uL Nucleated RBCs (0-0) /100 WBC Sodium (137-145) mmol/L Chloride (98-107) mmol/L Carbon Dioxide (22-30) mmol/L BUN (7-17) mg/dL Glucose (74-99) mg/dL POC Glucose (mg/dL) 206 H 159 H 112 H (70-110) mg/dL Alkaline Phosphatase (38-126) U/L C-Reactive Protein (<1.0) mg/dL Total Protein (6.3-8.2) g/dL Albumin (3.5-5.0) g/dL 05/05/23 05/05/23 05/05/23 Range/Units 12:12 12:12 12:22 RBC 3.59 L (3.80-5.40) m/uL Hgb 9.5 L (11.4-16.0) gm/dL Hct 30.2 L (34.0-46.0) % RDW 17.2 H (11.5-15.5) % Lymphocytes # (Manual) 0.92 L (1.0-4.8) k/uL Metamyelocytes # (Man) 0.07 H (0) k/uL Nucleated RBCs 4 H (0-0) /100 WBC Sodium 154 H (137-145) mmol/L Chloride 127 H (98-107) mmol/L Carbon Dioxide 14 L (22-30) mmol/L BUN 54 H (7-17) mg/dL Glucose 158 H (74-99) mg/dL POC Glucose (mg/dL) 190 H (70-110) mg/dL Alkaline Phosphatase 186 H (38-126) U/L C-Reactive Protein 7.3 H (<1.0) mg/dL Total Protein 5.6 L (6.3-8.2) g/dL Albumin 2.6 L (3.5-5.0) g/dL 05/05/23 Range/Units 15:11 RBC 3.27 L (3.80-5.40) m/uL Hgb 8.8 L (11.4-16.0) gm/dL Hct 27.5 L (34.0-46.0) % RDW 17.2 H (11.5-15.5) % Lymphocytes # (Manual) (1.0-4.8) k/uL Metamyelocytes # (Man) (0) k/uL Nucleated RBCs (0-0) /100 WBC Sodium (137-145) mmol/L Chloride (98-107) mmol/L Carbon Dioxide (22-30) mmol/L BUN (7-17) mg/dL Glucose (74-99) mg/dL POC Glucose (mg/dL) (70-110) mg/dL Alkaline Phosphatase (38-126) U/L C-Reactive Protein (<1.0) mg/dL Total Protein (6.3-8.2) g/dL Albumin (3.5-5.0) g/dL Microbiology - Last 24 Hours (Table) 05/02/23 18:42 Blood Culture - Preliminary Blood 05/02/23 18:42 Blood Culture Gram Stain - Preliminary Blood Blood Culture - Preliminary Coagulase Negative Staph Assessment and Plan Assessment: Bilateral patchy infiltrate hospital-acquired pneumonia/healthcare associated pneumonia Bacteremia related gram-positive cocci Acute on chronic hypoxic history failure related to above CVA with left hemiparesis Hypertension hypertensive cardiovascular disease Chronic anemia with heme positive stools, anticoagulants on hold, patient is on PPI Plan: Continue Zosyn and Flagyl, however IV vancomycin can be considered noted that infectious diseases following as well will defer to his expertise of ID service Continue bronchodilators and oral steroids PT OT evaluation Further plan of care as per clinical response of the patient Time with Patient: Greater than 30
[2023-05-05 17:06] LABS: Glucose,Whole Blood 143 mg/dL (70-110)
--- NOTE | 2023-05-05 17:39 | CA ---
Transthoracic Echo Report Name: Jeane Urbano Age: 63 Gender: F : 1960 Exam Date: 05/05/2023 14:06 Exam Location: [facility] Ht (in): 61 Wt (lb): 125 Ordering Physician: Sylwia Spivey MD Attending/Referring Phys: Central Scheduler Cherelle Cruz, VENKAT Procedure CPT: Indications: CVA Cardiac Hx: limited study Technical Quality: Contrast 1: Total Dose (mL): Contrast 2: Total Dose (mL): MEASUREMENTS (Male / Female) Normal Values 2D ECHO RV Internal Dim ED PLAX 3.2 cm LV Diastolic Volume MOD 4C 70.5 cm??? LV Systolic Volume MOD 4C 31.2 cm??? LV Ejection Fraction MOD 4C 55.8 % LV Cardiac Index MOD 4C 1977.6 cm???/min???m??? LV Diastolic Length 4C 7.5 cm LV Systolic Length 4C 6.3 cm LV Diastolic Volume MOD 2C 57.2 cm??? LV Systolic Volume MOD 2C 23.1 cm??? LV Ejection Fraction MOD 2C 59.7 % LV Cardiac Index MOD 2C 1715.3 cm???/min???m??? LV Diastolic Length 2C 6.7 cm LV Systolic Length 2C 5.1 cm LA Volume 60.1 cm??? 18 - 58 / 22 - 52 cm??? LA Volume Index 38.3 cm???/m??? 16 - 28 cm???/m??? DOPPLER TR Peak Velocity 255.3 cm/s TR Peak Gradient 26.1 mmHg Right Ventricular Systolic Press 31.1 mmHg FINDINGS Left Ventricle Left ventricular ejection fraction is estimated at 50-55 %. Right Ventricle Normal right ventricular size. Right ventricular systolic pressure within normal limits. Right Atrium Normal right atrial size. Negative agitated saline bubble study for right to left shunt. Left Atrium Mitral Valve Structurally normal mitral valve. Trace to mild mitral regurgitation. Aortic Valve Trileaflet aortic valve. Mild aortic regurgitation. Tricuspid Valve Structurally normal tricuspid valve. Mild tricuspid regurgitation. Pulmonic Valve Pulmonic valve not well visualized. Pericardium No pericardial effusion. Aorta CONCLUSIONS Likely related difficult study with suboptimal acoustic windows Preserved LV size and systolic function Previewed by: Dr. Kip Reaves MD (Electronically Signed) Final Date: 05 May 2023 17:37
[2023-05-05] MEDS ORDERED: DEXTROSE 10% IN WATER 500 ML in EMPTY BAG 1 BAG IV SCH (19:30)
[2023-05-05] MEDS: DEXTROSE 5% IN WATER 1,000 ML IV SCH (19:38)
[2023-05-05] MEDS ORDERED: APIXABAN 5 MG TAB PO SCH (21:00)
[2023-05-05 21:03] LABS: Glucose,Whole Blood 100 mg/dL (70-110)
--- NOTE | 2023-05-05 21:17 | PN ---
PROGRESS NOTE SUBJECTIVE: A 63-year-old female, comes to the hospital for bilateral pneumonia, COPD, esophageal dysmobility, possible bleeding out of her PEG tube. Hemoglobin dropped to 8.8 from 9.5. We are going to stop her blood thinners at this time. She has a history of GI bleeding in the past. OBJECTIVE: VITAL SIGNS: Temperature 98.7, pulse 71, respiratory rate 18 to 20, blood pressure 144/81, O2 of 98%. CARDIOVASCULAR: S1 and S2. LUNGS: Transmitted upper airway sounds. GI: Soft. HEMATOLOGY: Negative Homans. PSYCHIATRIC: Fair mood and affect. OPHTHALMOLOGIC: Pupils are equal, round, and reactive. LABORATORY DATA: Hemoglobin is 8.3, white count is 8. Sodium 154, BUN is 54, creatinine 1.01. Sugars . ASSESSMENT: 1. Bilateral patchy infiltrates/pneumonia, healthcare-acquired pneumonia, bacteremia related to gram-positive cocci. 2. Vjlvy-ka-ekczfqu hypoxemic respiratory failure. 3. Cerebrovascular accident with left hemiparesis. 4. Hypertensive cardiovascular disease. 5. Chronic anemia. PLAN: Continue Zosyn and Flagyl. IV vancomycin has been ordered. Wait for Infectious Disease consult for bacteremia. Prognosis is guarded. Add more fluids due to hypernatremia, free water. Dietitian consult. Surgery to see for possible bleeding out of her PEG tube. Continue to treat bilateral pneumonia. further stroke at home, please see Dr. Contreras's note. MMODL / IJN: [id number] /
[2023-05-05] MEDS: risperiDONE 1 MG TAB PEG/G-TUBE SCH (22:52)
[2023-05-06] MEDS: PIPERACILLIN-TAZOBACTAM 3.375 GM in SODIUM CHLORIDE 0.9% 100 ML IVPB SCH ×4 (00:48→23:49)
[2023-05-06 07:23] LABS: Anisocytosis Slight; HCT 40.8 % (34.0-46.0); Hypochromasia Slight; MCH 25.6 pg (25.0-35.0); MCHC 31.2 g/dL (31.0-37.0); MCV 82.2 fL (80.0-100.0); Mean Platelet Volume 8.7; Poikilocytosis Slight; RBC 4.97 m/uL (3.80-5.40); RDW 17.2 % (11.5-15.5)
[2023-05-06 07:38] LABS: HGB 12.7 gm/dL (11.4-16.0)
[2023-05-06 07:41] LABS: Glucose,Whole Blood 78 mg/dL (70-110)
[2023-05-06] MEDS: PANTOPRAZOLE 40 MG/10 ML VIAL IVP SCH ×2 (08:18→22:12)
[2023-05-06] MEDS: METOPROLOL TARTRATE 25 MG TAB PEG/G-TUBE SCH ×2 (08:18→22:14)
[2023-05-06] MEDS: LOSARTAN 25 MG TAB PEG/G-TUBE SCH (08:18)
[2023-05-06] MEDS: SERTRALINE 25 MG TAB PEG/G-TUBE SCH (08:19)
[2023-05-06] MEDS: DIVALPROEX SPRINKLE 125 MG CAP.SPRINK PEG/G-TUBE SCH ×2 (08:19→22:12)
[2023-05-06] MEDS: predniSONE 20 MG TAB PEG/G-TUBE SCH (08:19)
[2023-05-06] MEDS: LACOSAMIDE 150 MG TABLET PEG/G-TUBE SCH ×2 (08:19→22:12)
[2023-05-06] MEDS: DAPAGLIFLOZIN PROPANEDIOL 10 MG TABLET PO SCH (08:19)
[2023-05-06] MEDS: haloperidoL 5 MG TAB PEG/G-TUBE SCH ×2 (08:19→22:12)
[2023-05-06] MEDS: SERTRALINE 100 MG TAB PEG/G-TUBE SCH (08:19)
[2023-05-06] MEDS: FUROSEMIDE 20 MG TAB PEG/G-TUBE SCH (08:19)
[2023-05-06] MEDS: IPRATROPIUM-ALBUTEROL 3 ML NEB INHALATION SCH ×4 (08:58→19:21)
[2023-05-06] MEDS: BUDESONIDE 0.5 MG/2 ML NEBU INHALATION SCH ×2 (08:58→19:21)
[2023-05-06 09:58] LABS: Band Neutrophils % 1 %; Myelocytes % 1 %; Neutrophils % (M) 78 %; Nucleated Red Blood Cells 3 /100 WBC (0-0); Total Cells Counted 200
[2023-05-06 10:02] LABS: Eosinophils # (M) 0.03 k/uL (0-0.7); Lymphocytes # (M) 0.54 k/uL (1.0-4.8); Monocytes # (M) 0.17 k/uL (0-1.0); Myelocytes # (M) 0.03 k/uL (0); WBC 3.4 k/uL (3.8-10.6)
[2023-05-06 10:12] LABS: Target Cells Present; Tear Drop Cells Present
[2023-05-06 10:13] LABS: Polychromasia Present
[2023-05-06 10:19] LABS: Platelet Count 200 k/uL (150-450)
[2023-05-06 11:23] LABS: Glucose,Whole Blood 89 mg/dL (70-110)
[2023-05-06 11:40] LABS: ALT 24 U/L (8-44); AST 30 U/L (13-35); Albumin 2.7 d/dL (3.8-4.9); Albumin/Globulin Ratio 1.17 Ratio (1.60-3.17); Alkaline Phosphatase 73 U/L (41-126); BUN/Creat Ratio 40.64 Ratio (12.00-20.00); Blood Urea Nitrogen 44.7 mg/dL (9.0-27.0); Calcium 8.7 mg/dL (8.7-10.3); Carbon Dioxide 16.1 mmol/L (21.6-31.8); Chloride 123 mmol/L (96-109); Globulin 2.3 d/dL (1.6-3.3); Glucose 75 mg/dL (70-110); Potassium 3.9 mmol/L (3.5-5.5); Sodium 155 mmol/L (135-145); Total Bilirubin <0.2 mg/dL (0.3-1.2)
[2023-05-06 12:22] LABS: Anisocytosis Slight; Hypochromasia Marked; MCH 26.4 pg (25.0-35.0); MCHC 30.7 g/dL (31.0-37.0); MCV 85.8 fL (80.0-100.0); Mean Platelet Volume 8.7; Platelet Count 289 k/uL (150-450); Poikilocytosis Slight; RBC 3.14 m/uL (3.80-5.40); RDW 17.2 % (11.5-15.5)
[2023-05-06 12:23] LABS: HGB 8.3 gm/dL (11.4-16.0)
--- NOTE | 2023-05-06 12:28 | P.PN ---
Subjective Progress Note Date: 05/06/23 Principal diagnosis: Left heel wound, pneumonia and positive blood culture Patient is a 63-year-old -Cyp[place] female with multiple comorbidities and did have a multiple admission to the hospital patient was brought to the ER for evaluation of fatigue and mental status changes patient noticed to have a nonhealing wound to the left heel area and some drainage around the PEG tube site CT abdominal pelvis was negative for any intra-abdominal abscess however the concern for possible pneumonia. On today's evaluation that is 05/06/2023, the patient denies any fever or any chills, the patient is breathing comfortably on 2 L nasal cannula supplemental oxygen, the patient denies chest pain , did have occasional dry cough, patient denies nausea/vomiting and no diarrhea has been reported on the patient denies pain to the left heel Patient did have a white count of 6.9, blood culture with coagulase negative staph Objective - Vital Signs Vital signs: Vital Signs Temp 98.7 F 05/06/23 09:00 Pulse 80 05/06/23 09:20 Resp 16 05/06/23 09:00 BP 152/99 05/06/23 09:00 Pulse Ox 100 05/06/23 09:01 FiO2 Intake & Output 05/05/23 05/06/23 05/06/23 18:59 06:59 18:59 Output Total 400 Balance -400 Weight 48 kg 46 kg Output: Urine 400 Other: Voiding Method External Catheter External Catheter # Voids 2 # Bowel Movements 1 1 - Exam GENERAL DESCRIPTION: An elderly female lying in bed in no distress RESPIRATORY SYSTEM: Unlabored breathing , decreased breath sounds at bases HEART: S1 S2 regular rate and rhythm , ABDOMEN: Soft , no tenderness EXTREMITIES: No edema feet - Labs CBC & Chem 7: 05/06/23 11:31 05/06/23 06:24 Labs: Abnormal Lab Results - Last 24 Hours (Table) 05/05/23 05/05/23 05/05/23 Range/Units 12:12 12:12 15:11 WBC (3.8-10.6) k/uL RBC 3.59 L 3.27 L (3.80-5.40) m/uL Hgb 9.5 L 8.8 L (11.4-16.0) gm/dL Hct 30.2 L 27.5 L (34.0-46.0) % MCHC (31.0-37.0) g/dL RDW 17.2 H 17.2 H (11.5-15.5) % Lymphocytes # (Manual) 0.92 L (1.0-4.8) k/uL Metamyelocytes # (Man) 0.07 H (0) k/uL Myelocytes # (Manual) (0) k/uL Nucleated RBCs 4 H (0-0) /100 WBC Sodium 154 H (137-145) mmol/L Chloride 127 H (98-107) mmol/L Carbon Dioxide 14 L (22-30) mmol/L Anion Gap (4.00-12.00) mmol/L BUN 54 H (7-17) mg/dL Est GFR (CKD-EPI) (>=60) BUN/Creatinine Ratio (12.00-20.00) Ratio Glucose 158 H (74-99) mg/dL POC Glucose (mg/dL) (70-110) mg/dL Total Bilirubin (0.3-1.2) mg/dL Alkaline Phosphatase 186 H (38-126) U/L C-Reactive Protein 7.3 H (<1.0) mg/dL Total Protein 5.6 L (6.3-8.2) g/dL Albumin 2.6 L (3.5-5.0) g/dL Albumin/Globulin Ratio (1.60-3.17) Ratio Procalcitonin (0.02-0.09) ng/mL 05/05/23 05/06/23 05/06/23 Range/Units 17:04 06:24 06:24 WBC 3.4 L (3.8-10.6) k/uL RBC (3.80-5.40) m/uL Hgb (11.4-16.0) gm/dL Hct (34.0-46.0) % MCHC (31.0-37.0) g/dL RDW 17.2 H (11.5-15.5) % Lymphocytes # (Manual) 0.54 L (1.0-4.8) k/uL Metamyelocytes # (Man) (0) k/uL Myelocytes # (Manual) 0.03 H (0) k/uL Nucleated RBCs 3 H (0-0) /100 WBC Sodium (137-145) mmol/L Chloride (98-107) mmol/L Carbon Dioxide (22-30) mmol/L Anion Gap (4.00-12.00) mmol/L BUN (7-17) mg/dL Est GFR (CKD-EPI) (>=60) BUN/Creatinine Ratio (12.00-20.00) Ratio Glucose (74-99) mg/dL POC Glucose (mg/dL) 143 H (70-110) mg/dL Total Bilirubin (0.3-1.2) mg/dL Alkaline Phosphatase (38-126) U/L C-Reactive Protein (<1.0) mg/dL Total Protein (6.3-8.2) g/dL Albumin (3.5-5.0) g/dL Albumin/Globulin Ratio (1.60-3.17) Ratio Procalcitonin 0.54 H (0.02-0.09) ng/mL 05/06/23 05/06/23 Range/Units 06:24 11:31 WBC (3.8-10.6) k/uL RBC 3.14 L (3.80-5.40) m/uL Hgb 8.3 L D (11.4-16.0) gm/dL Hct 27.0 L (34.0-46.0) % MCHC 30.7 L (31.0-37.0) g/dL RDW 17.2 H (11.5-15.5) % Lymphocytes # (Manual) (1.0-4.8) k/uL Metamyelocytes # (Man) (0) k/uL Myelocytes # (Manual) (0) k/uL Nucleated RBCs (0-0) /100 WBC Sodium 155 H (137-145) mmol/L Chloride 123 H (98-107) mmol/L Carbon Dioxide 16.1 L (22-30) mmol/L Anion Gap 15.90 H (4.00-12.00) mmol/L BUN 44.7 H (7-17) mg/dL Est GFR (CKD-EPI) 56 L (>=60) BUN/Creatinine Ratio 40.64 H (12.00-20.00) Ratio Glucose (74-99) mg/dL POC Glucose (mg/dL) (70-110) mg/dL Total Bilirubin <0.2 L (0.3-1.2) mg/dL Alkaline Phosphatase (38-126) U/L C-Reactive Protein (<1.0) mg/dL Total Protein 5.0 L (6.3-8.2) g/dL Albumin 2.7 L (3.5-5.0) g/dL Albumin/Globulin Ratio 1.17 L (1.60-3.17) Ratio Procalcitonin (0.02-0.09) ng/mL Microbiology - Last 24 Hours (Table) 05/02/23 18:42 Blood Culture - Preliminary Blood 05/02/23 18:42 Blood Culture Gram Stain - Final Blood Blood Culture - Final Coagulase Negative Staph Assessment and Plan (1) Positive blood culture Current Visit: Yes Status: Acute Code(s): R78.81 - BACTEREMIA SNOMED Code(s): 844506545 (2) Acute pneumonia Current Visit: Yes Status: Acute Code(s): J18.9 - PNEUMONIA, UNSPECIFIED ORGANISM SNOMED Code(s): 385540331 (3) Pressure ulcer of left heel, stage 3 Current Visit: Yes Status: Acute Code(s): L89.623 - PRESSURE ULCER OF LEFT HEEL, STAGE 3 SNOMED Code(s): 36764102771964 Plan: 1patient with a left heel wound with some slough tissue more likely a pressure ulcer stage III would benefit from local wound care with the Medihoney/Santyl however the patient nurse mention the caregiver would not allow them to apply anything and to give the opening of the pressure 2-patient also have some weakness on admission with abnormal CT suggestive of multifocal pneumonia we will try to obtain a sputum for Gram stain culture, patient did have procalcitonin of 0.54 3patient to continue with the Zosyn to cover for the pneumonia 4-positive blood culture with coagulase negative staph likely contamination no need for vancomycin, blood culture has been repeated so far pending Dictation was produced using [employer] software. please excuse any grammatical, word or spelling errors. Time with Patient: Less than 30
[2023-05-06 13:38] LABS: Basophils # (M) 0.07 k/uL (0-0.2); Lymphocytes # (M) 1.45 k/uL (1.0-4.8); Metamyelocytes # (M) 0.07 k/uL (0); Metamyelocytes % 1 %; Neutrophils # (M) 4.88 k/uL (1.3-7.7); Neutrophils % (M) 74 %; Nucleated Red Blood Cells 4 /100 WBC (0-0); Total Cells Counted 200; WBC 6.6 k/uL (3.8-10.6)
[2023-05-06 13:40] LABS: Polychromasia Present; Tear Drop Cells Present
--- NOTE | 2023-05-06 15:12 | P.PN ---
Subjective Progress Note Date: 05/06/23 CHIEF COMPLAINT: Blood noted in tube feeds HISTORY OF PRESENT ILLNESS: Patient has had no further blood from the PEG tube. Reports no abdominal pain. She has been having bowel movements. Patient Hgb of 8.8 yesterday afternoon. Hemoglobin of 12.7 this morning was likely a lab error. Repeat hemoglobin 8.3. PHYSICAL EXAM: VITAL SIGNS: Reviewed. GENERAL: Well-developed in no acute distress. ABDOMEN: Soft. Nondistended. Nontender. PEG tube site with very minimal dried blood otherwise clean dry and intact NEUROLOGIC: Alert and oriented. Cranial nerves II through XII grossly intact. ASSESSMENT: 1. Bleeding noted in tube feeds likely due to trauma at the PEG tube site PLAN: -Okay to resume tube feeds -Okay to resume Eliquis -Continue IV Protonix Physician Tin Plater note has been reviewed by physician. Signing provider agrees with the documented findings, assessment, and plan of care. Objective - Vital Signs Vital signs: Vital Signs Temp 98.9 F 05/06/23 13:53 Pulse 75 05/06/23 13:53 Resp 19 05/06/23 13:53 BP 150/83 05/06/23 13:53 Pulse Ox 97 05/06/23 13:53 FiO2 Intake & Output 05/05/23 05/06/23 05/06/23 18:59 06:59 18:59 Output Total 400 Balance -400 Weight 48 kg 46 kg Output: Urine 400 Other: Voiding Method External Catheter External Catheter External Catheter # Voids 2 # Bowel Movements 1 1 - Labs CBC & Chem 7: 05/06/23 11:31 05/06/23 06:24 Labs: Abnormal Lab Results - Last 24 Hours (Table) 05/05/23 05/05/23 05/06/23 Range/Units 15:11 17:04 06:24 WBC (3.8-10.6) k/uL RBC 3.27 L (3.80-5.40) m/uL Hgb 8.8 L (11.4-16.0) gm/dL Hct 27.5 L (34.0-46.0) % MCHC (31.0-37.0) g/dL RDW 17.2 H (11.5-15.5) % Lymphocytes # (Manual) (1.0-4.8) k/uL Metamyelocytes # (Man) (0) k/uL Myelocytes # (Manual) (0) k/uL Nucleated RBCs (0-0) /100 WBC Sodium (135-145) mmol/L Chloride (96-109) mmol/L Carbon Dioxide (21.6-31.8) mmol/L Anion Gap (4.00-12.00) mmol/L BUN (9.0-27.0) mg/dL Est GFR (CKD-EPI) (>=60) BUN/Creatinine Ratio (12.00-20.00) Ratio POC Glucose (mg/dL) 143 H (70-110) mg/dL Total Bilirubin (0.3-1.2) mg/dL Total Protein (6.2-8.2) d/dL Albumin (3.8-4.9) d/dL Albumin/Globulin Ratio (1.60-3.17) Ratio Procalcitonin 0.54 H (0.02-0.09) ng/mL 05/06/23 05/06/23 05/06/23 Range/Units 06:24 06:24 11:31 WBC 3.4 L (3.8-10.6) k/uL RBC 3.14 L (3.80-5.40) m/uL Hgb 8.3 L D (11.4-16.0) gm/dL Hct 27.0 L (34.0-46.0) % MCHC 30.7 L (31.0-37.0) g/dL RDW 17.2 H 17.2 H (11.5-15.5) % Lymphocytes # (Manual) 0.54 L (1.0-4.8) k/uL Metamyelocytes # (Man) 0.07 H (0) k/uL Myelocytes # (Manual) 0.03 H (0) k/uL Nucleated RBCs 3 H 4 H (0-0) /100 WBC Sodium 155 H (135-145) mmol/L Chloride 123 H (96-109) mmol/L Carbon Dioxide 16.1 L (21.6-31.8) mmol/L Anion Gap 15.90 H (4.00-12.00) mmol/L BUN 44.7 H (9.0-27.0) mg/dL Est GFR (CKD-EPI) 56 L (>=60) BUN/Creatinine Ratio 40.64 H (12.00-20.00) Ratio POC Glucose (mg/dL) (70-110) mg/dL Total Bilirubin <0.2 L (0.3-1.2) mg/dL Total Protein 5.0 L (6.2-8.2) d/dL Albumin 2.7 L (3.8-4.9) d/dL Albumin/Globulin Ratio 1.17 L (1.60-3.17) Ratio Procalcitonin (0.02-0.09) ng/mL Microbiology - Last 24 Hours (Table) 05/02/23 18:42 Blood Culture - Preliminary Blood 05/02/23 18:42 Blood Culture Gram Stain - Final Blood Blood Culture - Final Coagulase Negative Staph
[2023-05-06 17:37] LABS: Glucose,Whole Blood 140 mg/dL (70-110)
[2023-05-06] MEDS: DEXTROSE 5% IN WATER 1,000 ML IV SCH (17:55)
--- NOTE | 2023-05-06 18:27 | P.PN ---
Subjective Progress Note Date: 05/06/23 On follow-up with the patient and she stated that she's doing much better. She stated that the right side weakness is not new. I spoke with Matias over the phone was the son-in-law and the legal guardian who stated that the patient has right-sided weakness going on for months but the last week a got drastically worse since she was not moving it and it seems that the patient had seizure while she was at the nursing facility. At baseline she is able to move right side above gravity but is weak. Her left side is hemiplegic which is old. It seems the patient has a some bleeding noted over the PEG tube so therefore add antiplatelet and anticoagulation is placed on hold. No further seizure-like ac tivity. Objective - Vital Signs Vital signs: Vital Signs Temp 98.9 F 05/06/23 13:53 Pulse 72 05/06/23 16:19 Resp 19 05/06/23 13:53 BP 150/83 05/06/23 13:53 Pulse Ox 97 05/06/23 13:53 FiO2 Intake & Output 05/05/23 05/06/23 05/06/23 18:59 06:59 18:59 Output Total 400 Balance -400 Weight 48 kg 46 kg Output: Urine 400 Other: Voiding Method External Catheter External Catheter External Catheter # Voids 2 # Bowel Movements 1 1 - Exam General: Lying in bed and is not in acute distress. Neuro: Limited. The patient is awake, alert, oriented to self, place. She is able to follow some simple commands. Pupils are round, equal and reactive to light. No dysarthria but is hypophonic. Motor: Hemiplegic over the left side with spasticity (old). While the right ankle have antigravity and antigravity of the right upper but unable to assess full strength. - Labs CBC & Chem 7: 05/06/23 11:31 05/06/23 06:24 Labs: Abnormal Lab Results - Last 24 Hours (Table) 05/06/23 05/06/23 05/06/23 Range/Units 06:24 06:24 06:24 WBC 3.4 L (3.8-10.6) k/uL RBC (3.80-5.40) m/uL Hgb (11.4-16.0) gm/dL Hct (34.0-46.0) % MCHC (31.0-37.0) g/dL RDW 17.2 H (11.5-15.5) % Lymphocytes # (Manual) 0.54 L (1.0-4.8) k/uL Metamyelocytes # (Man) (0) k/uL Myelocytes # (Manual) 0.03 H (0) k/uL Nucleated RBCs 3 H (0-0) /100 WBC Sodium 155 H (135-145) mmol/L Chloride 123 H (96-109) mmol/L Carbon Dioxide 16.1 L (21.6-31.8) mmol/L Anion Gap 15.90 H (4.00-12.00) mmol/L BUN 44.7 H (9.0-27.0) mg/dL Est GFR (CKD-EPI) 56 L (>=60) BUN/Creatinine Ratio 40.64 H (12.00-20.00) Ratio POC Glucose (mg/dL) (70-110) mg/dL Total Bilirubin <0.2 L (0.3-1.2) mg/dL Total Protein 5.0 L (6.2-8.2) d/dL Albumin 2.7 L (3.8-4.9) d/dL Albumin/Globulin Ratio 1.17 L (1.60-3.17) Ratio Procalcitonin 0.54 H (0.02-0.09) ng/mL 05/06/23 05/06/23 Range/Units 11:31 17:17 WBC (3.8-10.6) k/uL RBC 3.14 L (3.80-5.40) m/uL Hgb 8.3 L D (11.4-16.0) gm/dL Hct 27.0 L (34.0-46.0) % MCHC 30.7 L (31.0-37.0) g/dL RDW 17.2 H (11.5-15.5) % Lymphocytes # (Manual) (1.0-4.8) k/uL Metamyelocytes # (Man) 0.07 H (0) k/uL Myelocytes # (Manual) (0) k/uL Nucleated RBCs 4 H (0-0) /100 WBC Sodium (135-145) mmol/L Chloride (96-109) mmol/L Carbon Dioxide (21.6-31.8) mmol/L Anion Gap (4.00-12.00) mmol/L BUN (9.0-27.0) mg/dL Est GFR (CKD-EPI) (>=60) BUN/Creatinine Ratio (12.00-20.00) Ratio POC Glucose (mg/dL) 140 H (70-110) mg/dL Total Bilirubin (0.3-1.2) mg/dL Total Protein (6.2-8.2) d/dL Albumin (3.8-4.9) d/dL Albumin/Globulin Ratio (1.60-3.17) Ratio Procalcitonin (0.02-0.09) ng/mL Microbiology - Last 24 Hours (Table) 05/02/23 18:42 Blood Culture - Preliminary Blood 05/02/23 18:42 Blood Culture Gram Stain - Final Blood Blood Culture - Final Coagulase Negative Staph Assessment and Plan Assessment: * Right-sided weakness and according to her son-in-law he stated that that's old: On for months but in the last 1 week got worse and it seems that she had a seizure at the nursing facility. Possible mg's paralysis vs tia vs lacunar stroke (unable to obtain MRI). Strength on right side improved but unsure if back to baseline. On repeat CT head no definitive acute or subacute left basal ganlia lacunar injury. * She was also on Eliquis. 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 * Seizure disorder, currently in remission. She had recent seizure while at nursing facility. * Multifocal pneumonia * Possible UTI * Mild hypoglycemic events (high 60's). * CHF * History of brain aneurysm, status post coiling over the left MCA. * Presence of pain pump. * Anemia * Multiple bedsores involving the lower extremities * Bedbound status Plan: * Patient has presented with subacute (about two-week history of) right-sided weakness. CT head revealed possible lacunar infarct left basal ganglia But on repeat CT head no definitive acute or subacute left basal ganlia lacunar injury. * MRI of the brain cannot be performed because of presence of aneurysm coils, and pain pump. So I will obtain a repeat CT head. * Carotid Doppler: Layne as less than 50% stenosis in bilateral carotid bifurcation. * 2-D echo: It is reported as likely related difficult study with suboptimal acute sick windows. Preserved left ventricle size and systolic function. * Blood that is mild in peg tube. It seems home Eliquis 5 mg twice a day was placed on hold. Per Dr. Spivey, patient was not taking any antiplatelet medication at home and patient was started on Aspirin 81 mg daily also was placed on hold because of blood in the PEG tube. * Continue Vimpat 150 mg twice a day and Depakote 125 mg twice a day. * PT OT, speech therapy * Patient has aspiration pneumonia, possible UTI. ID on board. * General surgery is on board. * Please avoid hypoglycemia. Will defer management to primary team. * I discussed the case with her son-in-law Matias via phone. Will follow-up patient sporadically. Time with Patient: Less than 30
[2023-05-06 20:35] LABS: Glucose,Whole Blood 183 mg/dL (70-110)
[2023-05-06] MEDS: risperiDONE 1 MG TAB PEG/G-TUBE SCH (22:13)
[2023-05-06] MEDS: APIXABAN 5 MG TAB PEG/G-TUBE SCH (22:13)
[2023-05-07 07:30] LABS: Glucose,Whole Blood 99 mg/dL (70-110)
[2023-05-07] MEDS: BUDESONIDE 0.5 MG/2 ML NEBU INHALATION SCH ×2 (08:17→19:31)
[2023-05-07] MEDS: IPRATROPIUM-ALBUTEROL 3 ML NEB INHALATION SCH ×4 (08:17→19:31)
[2023-05-07] MEDS: LOSARTAN 25 MG TAB PEG/G-TUBE SCH (08:47)
[2023-05-07] MEDS: SERTRALINE 100 MG TAB PEG/G-TUBE SCH (08:47)
[2023-05-07] MEDS: METOPROLOL TARTRATE 25 MG TAB PEG/G-TUBE SCH ×2 (08:47→21:29)
[2023-05-07] MEDS: LACOSAMIDE 150 MG TABLET PEG/G-TUBE SCH ×2 (08:47→21:29)
[2023-05-07] MEDS: FUROSEMIDE 20 MG TAB PEG/G-TUBE SCH (08:48)
[2023-05-07] MEDS: predniSONE 20 MG TAB PEG/G-TUBE SCH (08:49)
[2023-05-07] MEDS: haloperidoL 5 MG TAB PEG/G-TUBE SCH ×2 (08:50→21:29)
[2023-05-07] MEDS: DIVALPROEX SPRINKLE 125 MG CAP.SPRINK PEG/G-TUBE SCH ×2 (08:50→21:29)
[2023-05-07] MEDS: DAPAGLIFLOZIN PROPANEDIOL 10 MG TABLET PO SCH (08:50)
[2023-05-07] MEDS: SERTRALINE 25 MG TAB PEG/G-TUBE SCH (08:51)
[2023-05-07] MEDS: APIXABAN 5 MG TAB PEG/G-TUBE SCH ×2 (08:52→21:29)
[2023-05-07] MEDS: PANTOPRAZOLE 40 MG/10 ML VIAL IVP SCH ×2 (09:13→21:29)
--- NOTE | 2023-05-07 12:07 | P.PN ---
Progress Note - Text Progress Note Date: 05/07/23 Patient still. Her PEG tube was inspected. There is no sign of blood in the PEG tube. His presumed patient's previous blunt PEG tube is due to PEG tube trauma. No surgical intervention is planned. Patient will continue receive supportive care.
[2023-05-07 12:16] LABS: ALT 26 U/L (8-44); AST 33 U/L (13-35); Albumin 2.7 d/dL (3.8-4.9); Albumin/Globulin Ratio 1.12 Ratio (1.60-3.17); Alkaline Phosphatase 100 U/L (41-126); BUN/Creat Ratio 43.67 Ratio (12.00-20.00); Blood Urea Nitrogen 39.3 mg/dL (9.0-27.0); Calcium 8.7 mg/dL (8.7-10.3); Carbon Dioxide 16.6 mmol/L (21.6-31.8); Chloride 114 mmol/L (96-109); Globulin 2.4 d/dL (1.6-3.3); Glucose 109 mg/dL (70-110); Potassium 3.9 mmol/L (3.5-5.5); Sodium 143 mmol/L (135-145); Total Bilirubin 0.2 mg/dL (0.3-1.2); Total Protein 5.1 d/dL (6.2-8.2)
[2023-05-07] MEDS: PIPERACILLIN-TAZOBACTAM 3.375 GM in SODIUM CHLORIDE 0.9% 100 ML IVPB SCH ×2 (12:24→16:46)
[2023-05-07 12:25] LABS: HCT 25.4 % (37.2-46.3); HGB 7.6 d/dL (12.0-15.0); MCH 25.2 pg (27.0-32.0); MCHC 29.9 d/dL (32.0-37.0); MCV 84.1 FL (80.0-97.0); Mean Platelet Volume 10.8 FL (9.5-12.2); NRBC Per 100 WBC 0.59 X 10*3/uL (0.00-0.01); Platelet Count 299 X 10*3/uL (140-440); RBC 3.02 X 10*6/uL (4.10-5.20); RDW 18.5 % (11.5-14.5); WBC 7.24 X 10*3/uL (4.50-10.00)
[2023-05-07 12:26] LABS: Acanthocytes 2+; Basophils # (M) 0.07 X 10*3/uL (0.00-0.10); Eosinophils # (M) 0 X 10*3/uL (0.04-0.35); Lymphocytes # (M) 1.52 X 10*3/uL (0.90-5.00); Metamyelocytes % 1 % (0-0); Monocytes # (M) 0.14 X 10*3/uL (0.20-1.00); Neutrophils # (M) 5.43 X 10*3/uL (1.80-7.70); Neutrophils % (M) 75 %; Nucleated Red Blood Cells 13 /100 WBCS; Schistocytes 2+
[2023-05-07 12:31] LABS: Glucose,Whole Blood 110 mg/dL (70-110)
[2023-05-07 13:28] VITALS: BMI 18.7
--- NOTE | 2023-05-07 16:33 | P.PN ---
Subjective Progress Note Date: 05/07/23 Principal diagnosis: Left heel wound, pneumonia and positive blood culture Patient is a 63-year-old -[place] female with multiple comorbidities and did have a multiple admission to the hospital patient was brought to the ER for evaluation of fatigue and mental status changes patient noticed to have a nonhealing wound to the left heel area and some drainage around the PEG tube site CT abdominal pelvis was negative for any intra-abdominal abscess however the concern for possible pneumonia. On today's evaluation that is 05/07/2023, the patient remains to be afebrile the patient is breathing comfortably on room air, the patient denies chest pain and no significant cough or sputum production, patient denies nausea/vomiting and no diarrhea, the patient denies pain to the left heel Patient did have a white count of 7.24, creatinine 0.9, blood culture with coagulase negative staph Objective - Vital Signs Vital signs: Vital Signs Temp 97.8 F 05/07/23 11:55 Pulse 96 05/07/23 11:55 Resp 13 05/07/23 11:55 BP 157/82 05/07/23 11:55 Pulse Ox 96 05/07/23 11:55 FiO2 Intake & Output 05/06/23 05/07/23 05/07/23 18:59 06:59 18:59 Intake Total 800 Output Total 500 Balance 800 -500 Weight 45 kg 45 kg Intake: Intake, IV Titration 800 Amount Dextrose 5% in Water 1, 600 000 ml @ 50 mls/hr IV . Q20H SHAR Rx#:[id number] Piperacillin-Tazobactam 3 200 .375 gm In Sodium Chloride 0.9% 100 ml @ 25 mls/hr IVPB Q8HR SHAR Rx# :[id number] Output: Urine 500 Other: Voiding Method External Catheter External Catheter External Catheter # Voids 2 # Bowel Movements 1 1 - Exam GENERAL DESCRIPTION: An elderly female lying in bed in no distress RESPIRATORY SYSTEM: Unlabored breathing , decreased breath sounds at bases HEART: S1 S2 regular rate and rhythm , ABDOMEN: Soft , no tenderness EXTREMITIES: No edema feet - Labs CBC & Chem 7: 05/07/23 06:41 05/07/23 06:41 Labs: Abnormal Lab Results - Last 24 Hours (Table) 05/06/23 05/06/23 05/07/23 Range/Units 17:17 20:33 06:41 RBC 3.02 L (4.10-5.20) X 10*6/uL Hgb 7.6 L (12.0-15.0) d/dL Hct 25.4 L (37.2-46.3) % MCH 25.2 L (27.0-32.0) pg MCHC 29.9 L (32.0-37.0) d/dL RDW 18.5 H (11.5-14.5) % Monocytes # (Manual) 0.14 L (0.20-1.00) X 10*3/uL Eosinophils # (Manual) 0 L (0.04-0.35) X 10*3/uL NRBC/100 WBC Diff 0.59 H (0.00-0.01) X 10*3/uL Acanthocytes (Spur) 2+ A Schistocytes 2+ A Chloride (96-109) mmol/L Carbon Dioxide (21.6-31.8) mmol/L Anion Gap (4.00-12.00) mmol/L BUN (9.0-27.0) mg/dL BUN/Creatinine Ratio (12.00-20.00) Ratio POC Glucose (mg/dL) 140 H 183 H (70-110) mg/dL Total Bilirubin (0.3-1.2) mg/dL Total Protein (6.2-8.2) d/dL Albumin (3.8-4.9) d/dL Albumin/Globulin Ratio (1.60-3.17) Ratio 05/07/23 Range/Units 06:41 RBC (4.10-5.20) X 10*6/uL Hgb (12.0-15.0) d/dL Hct (37.2-46.3) % MCH (27.0-32.0) pg MCHC (32.0-37.0) d/dL RDW (11.5-14.5) % Monocytes # (Manual) (0.20-1.00) X 10*3/uL Eosinophils # (Manual) (0.04-0.35) X 10*3/uL NRBC/100 WBC Diff (0.00-0.01) X 10*3/uL Acanthocytes (Spur) Schistocytes Chloride 114 H (96-109) mmol/L Carbon Dioxide 16.6 L (21.6-31.8) mmol/L Anion Gap 12.40 H (4.00-12.00) mmol/L BUN 39.3 H (9.0-27.0) mg/dL BUN/Creatinine Ratio 43.67 H (12.00-20.00) Ratio POC Glucose (mg/dL) (70-110) mg/dL Total Bilirubin 0.2 L (0.3-1.2) mg/dL Total Protein 5.1 L (6.2-8.2) d/dL Albumin 2.7 L (3.8-4.9) d/dL Albumin/Globulin Ratio 1.12 L (1.60-3.17) Ratio Microbiology - Last 24 Hours (Table) 05/05/23 12:12 Blood Culture - Preliminary Blood Assessment and Plan (1) Positive blood culture Current Visit: Yes Status: Acute Code(s): R78.81 - BACTEREMIA SNOMED Code(s): 578607838 (2) Acute pneumonia Current Visit: Yes Status: Acute Code(s): J18.9 - PNEUMONIA, UNSPECIFIED ORGANISM SNOMED Code(s): 831849255 (3) Pressure ulcer of left heel, stage 3 Current Visit: Yes Status: Acute Code(s): L89.623 - PRESSURE ULCER OF LEFT HEEL, STAGE 3 SNOMED Code(s): 06915067222158 Plan: 1patient with a left heel wound with some slough tissue more likely a pressure ulcer stage III would benefit from local wound care with the Medihoney/Santyl however the patient nurse mention the caregiver would not allow them to apply anything and to give the opening of the pressure 2-patient also have some weakness on admission with abnormal CT suggestive of multifocal pneumonia we will try to obtain a sputum for Gram stain culture, patient did have procalcitonin of 0.54 3patient to continue with the Zosyn to cover for the pneumonia and can be transitioned to oral Avelox on discharge 4-positive blood culture with coagulase negative staph likely contamination no need for vancomycin, blood culture has been repeated so far negative Dictation was produced using [employer] software. please excuse any grammatical, word or spelling errors.
[2023-05-07 17:30] LABS: Glucose,Whole Blood 154 mg/dL (70-110)
[2023-05-07 20:22] LABS: Glucose,Whole Blood 168 mg/dL (70-110)
[2023-05-07] MEDS: risperiDONE 1 MG TAB PEG/G-TUBE SCH (21:29)
[2023-05-08] MEDS: PIPERACILLIN-TAZOBACTAM 3.375 GM in SODIUM CHLORIDE 0.9% 100 ML IVPB SCH ×4 (00:08→23:34)
[2023-05-08] MEDS: DEXTROSE 5% IN WATER 1,000 ML IV SCH ×3 (00:09→23:35)
--- NOTE | 2023-05-08 03:40 | PN ---
PROGRESS NOTE SUBJECTIVE: The patient is on breathing treatments. OBJECTIVE: VITAL SIGNS: Temperature is 97 to 98, blood pressure is 130s to 160s over 83 to 92, O2 is 100% on 2 L. CARDIOVASCULAR: S1, S2. LUNGS: Scattered rhonchi. No wheeze. HEMATOLOGY: Negative for Homans. HEENT: Pupils are equal, round, and reactive. NEUROLOGIC: Cranial nerves are intact. She is alert and oriented. Her affect is normal. LABORATORY DATA: Hemoglobin has dropped down to 7.6 with bleeding. Monitor the hemoglobins over the weekends. Sugars 90s to low 100s. PLAN: Continue current treatment. Continue treatments for pneumonia, COPD. PROGNOSIS: Guarded. Follow up next 24 to 48 hours. Monitor hemoglobin. MMODL / IJN: [id number] /
[2023-05-08] MEDS: BUDESONIDE 0.5 MG/2 ML NEBU INHALATION SCH ×2 (07:20→18:36)
[2023-05-08] MEDS: IPRATROPIUM-ALBUTEROL 3 ML NEB INHALATION SCH ×4 (07:20→18:36)
[2023-05-08 07:36] LABS: Glucose,Whole Blood 89 mg/dL (70-110)
[2023-05-08] MEDS: LACOSAMIDE 150 MG TABLET PEG/G-TUBE SCH (08:35)
[2023-05-08] MEDS: LOSARTAN 25 MG TAB PEG/G-TUBE SCH (08:35)
[2023-05-08] MEDS: PANTOPRAZOLE 40 MG/10 ML VIAL IVP SCH ×2 (08:35→20:14)
[2023-05-08] MEDS: SODIUM FERRIC GLUCONAT-SUCROSE 125 MG in SODIUM CHLORIDE 0.9% 100 ML IVPB SCH (08:35)
[2023-05-08] MEDS: SERTRALINE 100 MG TAB PEG/G-TUBE SCH (08:35)
[2023-05-08] MEDS: predniSONE 20 MG TAB PEG/G-TUBE SCH (08:35)
[2023-05-08] MEDS: DAPAGLIFLOZIN PROPANEDIOL 10 MG TABLET PO SCH (08:35)
[2023-05-08] MEDS: METOPROLOL TARTRATE 25 MG TAB PEG/G-TUBE SCH ×2 (08:35→20:23)
[2023-05-08] MEDS: SERTRALINE 25 MG TAB PEG/G-TUBE SCH (08:35)
[2023-05-08] MEDS: APIXABAN 5 MG TAB PEG/G-TUBE SCH ×2 (08:35→20:12)
[2023-05-08] MEDS: FUROSEMIDE 20 MG TAB PEG/G-TUBE SCH (08:35)
[2023-05-08] MEDS: haloperidoL 5 MG TAB PEG/G-TUBE SCH ×2 (08:36→20:14)
[2023-05-08] MEDS: DIVALPROEX SPRINKLE 125 MG CAP.SPRINK PEG/G-TUBE SCH ×2 (08:36→20:14)
[2023-05-08] MEDS: ACETAMINOPHEN TAB 325 MG TAB PO PRN (08:58)
[2023-05-08 12:04] LABS: Glucose,Whole Blood 116 mg/dL (70-110)
--- NOTE | 2023-05-08 13:16 | P.PN ---
Subjective Progress Note Date: 05/08/23 CHIEF COMPLAINT: Blood in tube feeds HISTORY OF PRESENT ILLNESS: Patient seen and examined as a follow-up. No further blood from PEG tube. No abdominal pain. PHYSICAL EXAM: VITAL SIGNS: Reviewed. GENERAL: Well-developed in no acute distress. HEENT: No sclera icterus. Extraocular movements grossly intact. Moist buccal mucosa. Head is atraumatic, normocephalic. ABDOMEN: Soft. Nondistended. Nontender. PEG tube in place. NEUROLOGIC: Alert and oriented. Cranial nerves II through XII grossly intact. ASSESSMENT: 1. Bleeding noted in tube feeds likely due to trauma at PEG tube site without any further noted bleeding PLAN: -Continue tube feeds -Okay to resume Eliquis -Continue Protonix The impression and plan of care has been dictated as directed. I performed a history and examination of this patient, discussed the same with the dictator. I agree with the dictator's note ,documented as a scribe. Any additional findings or plans will be noted. Objective - Vital Signs Vital signs: Vital Signs Temp 98.1 F 05/08/23 07:35 Pulse 82 05/08/23 11:05 Resp 16 05/08/23 07:35 BP 145/68 05/08/23 07:35 Pulse Ox 100 05/08/23 07:35 FiO2 Intake & Output 05/07/23 05/08/23 05/08/23 18:59 06:59 18:59 Output Total 300 200 Balance -300 -200 Weight 45 kg 45 kg Output: Urine 300 200 Other: Voiding Method External Catheter External Catheter External Catheter # Voids 2 1 # Bowel Movements 1 1 - Labs CBC & Chem 7: 05/07/23 06:41 05/07/23 06:41 Labs: Abnormal Lab Results - Last 24 Hours (Table) 05/07/23 05/07/23 05/08/23 Range/Units 17:12 20:18 12:02 POC Glucose (mg/dL) 154 H 168 H 116 H (70-110) mg/dL Microbiology - Last 24 Hours (Table) 05/02/23 18:42 Blood Culture - Final Blood 05/05/23 12:12 Blood Culture - Preliminary Blood
[2023-05-08 13:48] LABS: Glucose,Whole Blood 128 mg/dL (70-110)
--- NOTE | 2023-05-08 15:11 | P.PN ---
Subjective Progress Note Date: 05/08/23 Principal diagnosis: Bilateral patchy infiltrate hospital-acquired pneumonia/healthcare associated pneumonia Bacteremia related gram-positive cocci Acute on chronic hypoxic history failure related to above CVA with left hemiparesis Hypertension hypertensive cardiovascular disease 05/08/2023, patient seen eval reexamined during the rounds labs reviewed medications reviewed, patient remains on 2-1/2 L oxygen saturation is low 90s, T-max is 99, blood pressure is 150/77 respiratory rate is 17-18 and heart rate to do surgery on her 100 percent. Blood glucose 128, patient remains on bronchodilator by nebulizer 4 times a day, have been resumed on the L request, patient remains on inhaled corticosteroids and aerosolized steroids 2 times a day gently being hydrated with the D5 50 mL in however 05/05/2023, patient seen and evaluated examined, he remains on antibiotics hem odynamic status stable, since its improved to 90% 2 L hemodynamic status stable, afebrile labs from today reviewed white cell count is 8 hemoglobin and hematocrit 8.8/27 platelet count 272 stool for occult blood is positive, and requests an aspirin is on hold, patient has been started on IV Protonix 63-year-old with history of stroke and left hemiparesis patient has a history of recurrent pneumonia in the past, she is on supplemental oxygen 1 L nasal cannula she has a PEG tube placement as well. She presented with altered mental status she is predominantly bedbound patient has been more weak and less responsive the last 4-5 days before coming to the hospital intermittent cough is present s hortness of breath, patient has been mostly unresponsive and has been sleeping more than usual. Her past medical history significant for CVA with left hemiparesis, dyslipidemia, hypertension, osteoarthritis chronic anemia history of gout pancreatitis solution disease or atrial tract infection history of multiple brain aneurysm as well. Most recent labs include white cell count 8.4 hemoglobin and hematocrit 10.4/32 platelet count 1 93,000. Sodium is 140 over procedure 5.2 BUN and creatinine is 73/0.97 glucose 73 her chest x-ray low lung volumes stable bilateral pulmonary opacities suggestive of multifocal pneumonia or edema. Computed tomography scan of the chest revealed presence of multifocal air space disease with septal thickening. Her blood cultures positive for gram- positive cocci in clusters. Currently patient is on bronchodilators aspirin Pulmicort, Depakote, Lasix via PEG tube subcu heparin, Vimpat, Cozaar, Flagyl 500 mg IV Zosyn 3.375 prednisone 40 mg to Objective - Vital Signs Vital signs: Vital Signs Temp 99 F 05/08/23 13:10 Pulse 94 05/08/23 13:10 Resp 17 05/08/23 13:10 BP 152/77 05/08/23 13:10 Pulse Ox 100 05/08/23 13:10 FiO2 Intake & Output 05/07/23 05/08/23 05/08/23 18:59 06:59 18:59 Output Total 300 200 150 Balance -300 -200 -150 Weight 45 kg 45 kg Output: Urine 300 200 150 Other: Voiding Method External Catheter External Catheter External Catheter # Voids 2 1 # Bowel Movements 1 1 - Exam - Constitutional General appearance: average body habitus, cooperative, disheveled - EENT Eyes: EOMI, PERRLA Ears: bilateral: normal - Neck Neck: normal ROM Carotids: bilateral: upstroke normal Thyroid: bilateral: normal size - Respiratory Respiratory: right: diminished - Cardiovascular Rhythm: regular Heart sounds: normal: S1, S2 - Gastrointestinal General gastrointestinal: decreased bowel sounds - Integumentary Integumentary: decreased turgor - Musculoskeletal Musculoskeletal: generalized weakness, left sided weakness - Labs CBC & Chem 7: 05/07/23 06:41 05/07/23 06:41 Labs: Abnormal Lab Results - Last 24 Hours (Table) 05/07/23 05/07/23 05/08/23 Range/Units 17:12 20:18 12:02 POC Glucose (mg/dL) 154 H 168 H 116 H (70-110) mg/dL 05/08/23 Range/Units 13:47 POC Glucose (mg/dL) 128 H (70-110) mg/dL Microbiology - Last 24 Hours (Table) 05/02/23 18:42 Blood Culture - Final Blood 05/05/23 12:12 Blood Culture - Preliminary Blood Assessment and Plan Assessment: Bilateral patchy infiltrate hospital-acquired pneumonia/healthcare associated pneumonia, on Zosyn tolerating well Bacteremia related gram-positive cocci, culture positive for coag-negative staph repeat culture no growth so far Acute on chronic hypoxic history failure related to above CVA with left hemiparesis Hypertension hypertensive cardiovascular disease Chronic anemia with heme positive stools, hematology following hemoglobin stable patient is back on Eliquis Plan: Continue Zosyn and Flagyl, however IV vancomycin can be considered noted that infectious diseases following as well will defer to his expertise of ID service Continue bronchodilators and oral steroids PT OT evaluation Further plan of care as per clinical response of the patient Time with Patient: Greater than 30
[2023-05-08 15:27] LABS: Appearance,Urine Clear (Clear); Bacteria,Urine Rare /hpf; Bilirubin,Urine Negative (Negative); Blood,Urine Negative (Negative); Budding Yeast,Urine Occasional /hpf; Color,Urine Light Yellow; Glucose,Urine (UA) 2+ (Negative); Hyphae Yeast, Urine Occasional /hpf; Ketones,Urine Negative (Negative); Leukocyte Esterase,Urine Large (Negative); Nitrite,Urine Negative (Negative); PH, Urine 5.5 (5.0-8.0); Protein,Urine Negative (Negative); RBC,Urine 2 /hpf (0-5); Specific Gravity,Urine 1.011 (1.001-1.035); Squamous Epithelial Cell,Urine 4 /hpf (0-4); Urobilinogen,Urine <2.0 mg/dL (<2.0); WBC,Urine 7 /hpf (0-5)
[2023-05-08 17:22] LABS: Glucose,Whole Blood 127 mg/dL (70-110)
--- NOTE | 2023-05-08 17:36 | P.PN ---
Subjective Progress Note Date: 05/08/23 I am following-up with patient and she feels back to baseline. Denies of any new neurological issues. Objective - Vital Signs Vital signs: Vital Signs Temp 99 F 05/08/23 13:10 Pulse 88 05/08/23 15:20 Resp 17 05/08/23 13:10 BP 152/77 05/08/23 13:10 Pulse Ox 100 05/08/23 13:10 FiO2 Intake & Output 05/07/23 05/08/23 05/08/23 18:59 06:59 18:59 Output Total 300 200 150 Balance -300 -200 -150 Weight 45 kg 45 kg Output: Urine 300 200 150 Other: Voiding Method External Catheter External Catheter External Catheter # Voids 2 1 # Bowel Movements 1 1 - Exam General: Lying in bed and is not in acute distress. Neuro: Limited. The patient is awake, alert, oriented to self, place. She is able to follow some simple commands. Pupils are round, equal and reactive to light. No dysarthria but is hypophonic. Motor: Hemiplegic over the left side with spasticity (old). While the right ankle have antigravity and antigravity of the right upper but unable to assess full strength. - Labs CBC & Chem 7: 05/07/23 06:41 05/07/23 06:41 Labs: Abnormal Lab Results - Last 24 Hours (Table) 05/07/23 05/07/23 05/08/23 Range/Units 17:12 20:18 12:02 POC Glucose (mg/dL) 154 H 168 H 116 H (70-110) mg/dL Urine Glucose (UA) (Negative) Ur Leukocyte Esterase (Negative) Urine WBC (0-5) /hpf Urine Bacteria (None) /hpf Urine Yeast (Budding) (None) /hpf 05/08/23 05/08/23 05/08/23 Range/Units 13:47 15:09 17:21 POC Glucose (mg/dL) 128 H 127 H (70-110) mg/dL Urine Glucose (UA) 2+ H (Negative) Ur Leukocyte Esterase Large H (Negative) Urine WBC 7 H (0-5) /hpf Urine Bacteria Rare H (None) /hpf Urine Yeast (Budding) Occasional H (None) /hpf Microbiology - Last 24 Hours (Table) 05/02/23 18:42 Blood Culture - Final Blood 05/05/23 12:12 Blood Culture - Preliminary Blood Assessment and Plan Assessment: * Right-sided weakness and according to her son-in-law he stated that that's old: On for months but in the last 1 week got worse and it seems that she had a seizure at the nursing facility. Probable mg's paralysis. Cannot rule out lacunar stroke (unable to obtain MRI) vs?TIA. Strength on right side improved. On repeat CT head no definitive acute or subacute left basal ganlia lacunar injury. * She was also on Eliquis. 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 * Seizure disorder, currently in remission. She had recent seizure while at [facility]. * Multifocal pneumonia * Possible UTI * Mild hypoglycemic events (high 60's). * CHF * History of brain aneurysm, status post coiling over the left MCA. * Presence of pain pump. * Anemia * Multiple bedsores involving the lower extremities * Bedbound status Plan: * Patient has presented with subacute (about two-week history of) right-sided weakness. CT head revealed possible lacunar infarct left basal ganglia But on repeat CT head no definitive acute or subacute left basal ganlia lacunar injury. * Carotid Doppler: Layne as less than 50% stenosis in bilateral carotid bifurcation. * 2-D echo: It is reported as likely related difficult study with suboptimal ac [place] vie[place] sick windows. Preserved left ventricle size and systolic function. * Eliquis 5 mg twice a day was restarted. Per Dr. Spivey, patient was not taking any antiplatelet but started her on ASA 81mg daily for concern for new stroke which was stopped because of bleeding from feeding tube during this admission. I will hold off antiplateltes in addition to anticoagulation because of risk of bleed. * Went up on Vimpat 150 mg twice a day to 200mg bid. Continued her home Depakote 125 mg twice a day. * PT OT, speech therapy * Patient has aspiration pneumonia, possible UTI. ID on board. * General surgery is on board. * Please avoid hypoglycemia. Will defer management to primary team. * I discussed the case with her son-in-law Matias via phone. Will follow-up patient. Dr. Hernandez will start the patient tomorrow A.M. then Dr. Spivey will start this Thursday A.M. Time with Patient: Less than 30
--- NOTE | 2023-05-08 19:19 | P.CONS ---
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 We were initially consulted with regards to anemia. She was hospitalized at [facility] on 05/07/2022 for concerns for aspiration pneumonia. She was found to have microcytic anemia with elevated ferritin of 2224. Prior work-up for anemia on 07/28/2021 revealed no evidence of monoclonal gammopathy on immunofixation no monoclonal population of immunoglobulins. Vitamin B12 and folic acid were also found to be normal at that time. At the time of our initial consultation on 05/15/2022, hemoglobin electrophoresis was recommended and was found to have an elevated hemoglobin A2 of 4.2%, which was noted to be consistent with beta thalassemia. She did receive 1 unit of packed red blood cells on 05/15/2022. Of note, it is not clear if patient received blood transfusion prior to hemoglobin electrophoresis. She was started on Aranesp injections in the hospital. Per her son-in-law, there are no known blood disorders in the family. Patient was sent for further lab testing on 06/30/22, including anemia workup, with EPO level, hemoglobin electrophoresis and obtain beta thalassemia gene testing to assess for the presence of beta thalassemia. Iron, TIBC, and iron saturation were WNL, ferritin elevated at 1914, EPO 37.24, Vit B12 and folate WNL. However, hemoglobin electrophoresis and beta thalassemia gene testing were never obtained. It was felt that she may have component of beta thalassemia along with anemia of inflammation. Patient subsequently was lost to follow up and cancelled her last 3 f/u appts. Patient presented to the emergency room with complaints of fatigue and mental status changes that began worsening over the last [address] chest revealed multifocal airspace opacities with pulmonary vascular congestion. CT abdomen pelvis showed multifocal pneumonia in the lung bases. PEG tube in appropriate position with no evidence for infection. No acute intra-abdominal processes noted. Patient has been afebrile since admission. Urine culture negative. Blood culture positive for coagulase negative staph. Patient continues on IV abx. Repeat blood cultures negative thus far. Stool occult positive. Staff states they have not noted riddhi blood or melena. Per review of notes, blood was seen in PEG tube, surgery was consulted and was believed this was due to trauma to PEG tube, but has since resolved. CBC today revealed normocytic hypochromic anemia with hemoglobin of 7.6, WBC at 7.2, platelets 299,000. Schistocytes noted on CBC. At today's visit patient is somnolent. Patient arouses to tactile stimuli but easily falls asleep. Spoke with nursing who states patient was more alert this morning. Capillary blood glucose obta ined, was 128. Rectal temp 97.4. BP 108/77. Nursing also reports urinary retention today. Bladder scan revealed 341cc. Repeat UA ordered. Review of Systems 10 point ROS is negative except as stated in the HPI Past Medical History Past Medical History: CVA/TIA, Hyperlipidemia, Hypertension, Osteoarthritis (OA) Additional Past Medical History / Comment(s): ANEMIA, CVA WITH L ARM WEAKNESS AND bilateral LEG WEAKNESS, hx. gout, PANCREATITIS, pseudoseizures, UTI, gallstones, tremors, hx multiple brain aneursyms, pressure injuries to right calf and left heel History of Any Multi-Drug Resistant Organisms: ESBL, MRSA Year Discovered:: 02/03/23-MRSA; 03/18/18 ESBL MDRO Source:: Right Lateral Calf- MRSA; Urine-ESBL Past Surgical History: Section, Cholecystectomy, Orthopedic Surgery Additional Past Surgical History / Comment(s): hx aneurysms- COILS AND STENTS TO BRAIN, repair tendons r/t gout BILATERAL FEET; Pain pump inserted on 04/21/22 Past Anesthesia/Blood Transfusion Reactions: No Reported Reaction Additional Past Anesthesia/Blood Transfusion Reaction / Comm: PT HAS HAD BLOOD TRANSFUSIONS FOR ANEMIA-NO REACTION. Past Psychological History: Anxiety, Depression, Schizophrenia Smoking Status: Former smoker - Past Family History Sister(s) Family Medical History: Myocardial Infarction ([place]) Father Family Medical History: Cancer Additional Family Medical History / Comment(s): throat, lung, and rectal cancer Mother Family Medical History: Myocardial Infarction ([place]) Additional Family Medical History / Comment(s): stroke Medications and Allergies Home Medications Medication Instructions Recorded Confirmed Type Lacosamide [Vimpat] 100 mg PEG/G-TUBE BID 07/03/22 05/02/23 History Sertraline [Zoloft] 25 mg PEG/G-TUBE DAILY 07/03/22 05/02/23 History Sertraline [Zoloft] 100 mg PEG/G-TUBE DAILY 07/03/22 05/02/23 History risperiDONE [RisperDAL] 1 mg PEG/G-TUBE HS 07/03/22 05/02/23 History Ascorbic Acid [Vitamin C] 250 mg PEG/G-TUBE DAILY 02/18/23 05/02/23 History Metoprolol Tartrate [Lopressor] 25 mg PEG/G-TUBE BID 02/18/23 05/02/23 History haloperidoL [Haldol] 2.5 mg PEG/G-TUBE Q12H 02/18/23 05/02/23 History Budesonide [Pulmicort] 0.5 mg INHALATION RT-BID 30 Days 02/25/23 05/02/23 Rx #60 ml Ipratropium-Albuterol Nebulize 3 ml INHALATION RT-QID 30 Days 02/25/23 05/02/23 Rx [Duoneb 0.5 mg-3 mg/3 ml Soln] #120 each Apixaban [Eliquis] 5 mg PEG/G-TUBE BID 05/02/23 05/02/23 History Dapagliflozin Propanediol [Farxiga] 10 mg PEG/G-TUBE DAILY 05/02/23 05/02/23 History Divalproex Sprinkle [Depakote 125 mg PEG/G-TUBE BID 05/02/23 05/02/23 History Sprinkle] Furosemide [Lasix] 20 mg PEG/G-TUBE DAILY 05/02/23 05/02/23 History Lacosamide [Vimpat] 50 mg PEG/G-TUBE BID 05/02/23 05/02/23 History Losartan [Cozaar] 25 mg PEG/G-TUBE DAILY 05/02/23 05/02/23 History Ondansetron [Zofran] 4 mg PEG/G-TUBE Q6H PRN 05/02/23 05/02/23 History predniSONE [Deltasone] 40 mg PEG/G-TUBE DAILY 05/02/23 05/02/23 History Allergies Allergy/AdvReac Type Severity Reaction Status Date / Time hydromorphone [From Dilaudid] Allergy Swelling Verified 05/02/23 17:39 morphine Allergy Swelling Verified 05/02/23 17:39 Physical Exam Vitals: Vital Signs Temp Pulse Pulse Resp BP Pulse Ox 05/08/23 07:20 88 05/08/23 00:14 98.2 F 90 20 134/83 100 05/07/23 20:00 90 20 05/07/23 19:45 85 05/07/23 19:33 83 05/07/23 19:23 97.9 F 77 18 165/94 96 05/07/23 11:55 97.8 F 96 13 157/82 96 05/07/23 08:31 82 05/07/23 08:17 82 Intake and Output 05/07/23 05/08/23 05/08/23 22:59 06:59 14:59 Output Total 400 100 Balance -400 -100 Output: Urine 400 100 Other: Voiding Method External Catheter # Voids 2 # Bowel Movements 1 Weight 45 kg - Constitutional General appearance: no acute distress - EENT Eyes: anicteric sclerae - Respiratory Respiratory: bilateral: diminished - Cardiovascular RUE diffuse edema noted, r/t IV infiltration Rhythm: regular Heart sounds: normal: S1, S2 - Gastrointestinal General gastrointestinal: soft - Integumentary Integumentary: no cyanotic - Neurologic somnolent - Musculoskeletal Musculoskeletal: generalized weakness Results CBC & Chem 7: 05/07/23 06:41 05/07/23 06:41 Labs: Abnormal Lab Results - Last 24 Hours (Table) 05/07/23 05/07/23 05/07/23 Range/Units 06:41 06:41 17:12 RBC 3.02 L (4.10-5.20) X 10*6/uL Hgb 7.6 L (12.0-15.0) d/dL Hct 25.4 L (37.2-46.3) % MCH 25.2 L (27.0-32.0) pg MCHC 29.9 L (32.0-37.0) d/dL RDW 18.5 H (11.5-14.5) % Monocytes # (Manual) 0.14 L (0.20-1.00) X 10*3/uL Eosinophils # (Manual) 0 L (0.04-0.35) X 10*3/uL NRBC/100 WBC Diff 0.59 H (0.00-0.01) X 10*3/uL Acanthocytes (Spur) 2+ A Schistocytes 2+ A Chloride 114 H (96-109) mmol/L Carbon Dioxide 16.6 L (21.6-31.8) mmol/L Anion Gap 12.40 H (4.00-12.00) mmol/L BUN 39.3 H (9.0-27.0) mg/dL BUN/Creatinine Ratio 43.67 H (12.00-20.00) Ratio POC Glucose (mg/dL) 154 H (70-110) mg/dL Total Bilirubin 0.2 L (0.3-1.2) mg/dL Total Protein 5.1 L (6.2-8.2) d/dL Albumin 2.7 L (3.8-4.9) d/dL Albumin/Globulin Ratio 1.12 L (1.60-3.17) Ratio 05/07/23 Range/Units 20:18 RBC (4.10-5.20) X 10*6/uL Hgb (12.0-15.0) d/dL Hct (37.2-46.3) % MCH (27.0-32.0) pg MCHC (32.0-37.0) d/dL RDW (11.5-14.5) % Monocytes # (Manual) (0.20-1.00) X 10*3/uL Eosinophils # (Manual) (0.04-0.35) X 10*3/uL NRBC/100 WBC Diff (0.00-0.01) X 10*3/uL Acanthocytes (Spur) Schistocytes Chloride (96-109) mmol/L Carbon Dioxide (21.6-31.8) mmol/L Anion Gap (4.00-12.00) mmol/L BUN (9.0-27.0) mg/dL BUN/Creatinine Ratio (12.00-20.00) Ratio POC Glucose (mg/dL) 168 H (70-110) mg/dL Total Bilirubin (0.3-1.2) mg/dL Total Protein (6.2-8.2) d/dL Albumin (3.8-4.9) d/dL Albumin/Globulin Ratio (1.60-3.17) Ratio Microbiology - Last 24 Hours (Table) 05/02/23 18:42 Blood Culture - Final Blood 05/05/23 12:12 Blood Culture - Preliminary Blood CT scan - abdomen: report reviewed CT scan - chest: report reviewed CT scan - pelvis: report reviewed Assessment and Plan (1) Anemia Current Visit: Yes Status: Acute Priority: High Code(s): D64.9 - ANEMIA, UNSPECIFIED SNOMED Code(s): 107207755 (2) Beta thalassemia minor Current Visit: Yes Status: Chronic Priority: Medium Code(s): D56.3 - THALASSEMIA MINOR SNOMED Code(s): 352250136 Plan: Anemia, Beta thalassemia minor: -Previous workup showed hemoglobin A2 increased at 4.3 -Trending her hemoglobin since about 2018, hemoglobin is typically in the 9-10 range. Hemoglobin 7.6 today -Unfortunately pt has been lost to f/u and has canceled her last 3 appts. Last hemoglobin electrophoresiss in 09/2022, it was unknown if patient recently had just received blood transfusions. Will repeat study as well as check beta thalassemia gene analysis to confirm diagnosis. This is likely beta thalassemia minor/trait -Due to schistocytes noted on CBC will obtain hemolysis workup. Will also check iron studies. IV iron has been ordered by IM team -Underlying anemia likely r/t beta thalassemia trait superimposed by anemia of inflammation -Will continue to monitor. Please transfuse for hemoglobin less than 7 or if symptomatic attests: I seen and examined patient, Performed H&P, developed impression and plan of care. Discussed with dictator. Agree with documentation, dictated as a scribe
[2023-05-08] MEDS: LACOSAMIDE 50 MG TABLET PEG/G-TUBE SCH (20:12)
[2023-05-08] MEDS: risperiDONE 1 MG TAB PEG/G-TUBE SCH (20:13)
--- NOTE | 2023-05-08 23:20 | P.PN ---
Subjective Progress Note Date: 05/08/23 Principal diagnosis: Left heel wound, pneumonia and positive blood culture Patient is a 63-year-old -[place] female with multiple comorbidities and did have a multiple admission to the hospital patient was brought to the ER for evaluation of fatigue and mental status changes patient noticed to have a nonhealing wound to the left heel area and some drainage around the PEG tube site CT abdominal pelvis was negative for any intra-abdominal abscess however the concern for possible pneumonia. On today's evaluation that is 05/08/2023, the patient continues to be afebrile the patient is breathing comfortably on 2LNC oxygen, the patient denies chest pain or cough, patient denies abdominal pain and no nausea/vomiting and no diarrhea has been reported the patient denies pain to the left heel Patient did have a white count of 7.24, creatinine 0.9 as of yesterday, blood culture with coagulase negative staph Objective - Vital Signs Vital signs: Vital Signs Temp 98.1 F 05/08/23 07:35 Pulse 82 05/08/23 11:05 Resp 16 05/08/23 07:35 BP 145/68 05/08/23 07:35 Pulse Ox 100 05/08/23 07:35 FiO2 Intake & Output 05/07/23 05/08/23 05/08/23 18:59 06:59 18:59 Output Total 300 200 Balance -300 -200 Weight 45 kg 45 kg Output: Urine 300 200 Other: Voiding Method External Catheter External Catheter External Catheter # Voids 2 1 # Bowel Movements 1 1 - Exam GENERAL DESCRIPTION: An elderly female lying in bed in no distress RESPIRATORY SYSTEM: Unlabored breathing , decreased breath sounds at bases HEART: S1 S2 regular rate and rhythm , ABDOMEN: Soft , no tenderness EXTREMITIES: No edema feet - Labs CBC & Chem 7: 05/07/23 06:41 05/07/23 06:41 Labs: Abnormal Lab Results - Last 24 Hours (Table) 05/07/23 05/07/23 05/08/23 Range/Units 17:12 20:18 12:02 POC Glucose (mg/dL) 154 H 168 H 116 H (70-110) mg/dL Microbiology - Last 24 Hours (Table) 05/02/23 18:42 Blood Culture - Final Blood 05/05/23 12:12 Blood Culture - Preliminary Blood Assessment and Plan (1) Positive blood culture Current Visit: Yes Status: Acute Code(s): R78.81 - BACTEREMIA SNOMED Code(s): 933559796 (2) Acute pneumonia Current Visit: Yes Status: Acute Code(s): J18.9 - PNEUMONIA, UNSPECIFIED ORGANISM SNOMED Code(s): 963065148 (3) Pressure ulcer of left heel, stage 3 Current Visit: Yes Status: Acute Code(s): L89.623 - PRESSURE ULCER OF LEFT HEEL, STAGE 3 SNOMED Code(s): 24425083114923 Plan: 1patient with a left heel wound with some slough tissue more likely a pressure ulcer stage III would benefit from local wound care with the Medihoney/Santyl however the patient nurse mention the caregiver would not allow them to apply anything and to give the opening of the pressure 2-patient also have some weakness on admission with abnormal CT suggestive of multifocal pneumonia we will try to obtain a sputum for Gram stain culture, patient did have procalcitonin of 0.54 3positive blood culture with coagulase negative staph likely contamination no need for vancomycin, blood culture has been repeated so far negative 4-patient has shown clinical improvment to continue with the Zosyn to cover for the pneumonia and can be transitioned to oral Avelox on discharge Dictation was produced using [employer] dictation software. please excuse any grammatical, word or spelling errors. Time with Patient: Less than 30
[2023-05-08 23:51] LABS: Glucose,Whole Blood 90 mg/dL (70-110)
[2023-05-09 02:35] LABS: % Iron Saturation 93.9 (12.00-45.00)
[2023-05-09 06:13] LABS: Glucose,Whole Blood 83 mg/dL (70-110)
--- NOTE | 2023-05-09 07:16 | PN ---
PROGRESS NOTE SUBJECTIVE: 63-year-old white female, continues on DuoNeb and Pulmicort. Monitor her hemoglobin for bleeding. We have given her Venofer. OBJECTIVE: VITAL SIGNS: Temperature 98.2, pulse 80s, respiratory rate 16 to 19, blood pressure 148 over 60s, O2 100% on 2 L. GENERAL: She is sleepy, lethargic, left-sided contractures. CARDIOVASCULAR: S1, S2. Irregular rate and rhythm. LUNGS: Scattered rhonchi and wheeze. GI: PEG tube . CVA, left hemiparesis, hypertensive cardiovascular disease, acute on chronic respiratory failure, gram-positive cocci, bilateral pneumonia. Continue on breathing treatments, antibiotics, hypertension acceleration, COPD, esophageal dysmobility with malnutrition. Continue current treatment. strep culture so far. Bilateral patchy infiltrates. Hospital acquired pneumonia, CVA with hemiparesis, hypertensive heart disease, chronic anemia, respiratory failure. Continue current treatments. Prognosis guarded. Continue with broad-spectrum antibiotics and wait for further testing. Monitor hemoglobin for bleeding. She is restarted back on her atrial fibrillation medicines, and blood thinners. Prognosis guarded. MMODL / IJN: [id number] /
[2023-05-09] MEDS: APIXABAN 5 MG TAB PEG/G-TUBE SCH ×2 (07:54→21:32)
[2023-05-09] MEDS: DIVALPROEX SPRINKLE 125 MG CAP.SPRINK PEG/G-TUBE SCH ×2 (07:55→21:32)
[2023-05-09] MEDS: haloperidoL 5 MG TAB PEG/G-TUBE SCH ×2 (07:55→21:31)
[2023-05-09] MEDS: FUROSEMIDE 20 MG TAB PEG/G-TUBE SCH (07:55)
[2023-05-09] MEDS: LACOSAMIDE 50 MG TABLET PEG/G-TUBE SCH ×2 (07:55→21:32)
[2023-05-09] MEDS: METOPROLOL TARTRATE 25 MG TAB PEG/G-TUBE SCH ×2 (07:56→21:32)
[2023-05-09] MEDS: LOSARTAN 25 MG TAB PEG/G-TUBE SCH (07:56)
[2023-05-09] MEDS: PANTOPRAZOLE 40 MG/10 ML VIAL IVP SCH ×2 (07:56→21:32)
[2023-05-09] MEDS: SERTRALINE 25 MG TAB PEG/G-TUBE SCH (07:57)
[2023-05-09] MEDS: predniSONE 20 MG TAB PEG/G-TUBE SCH (07:57)
[2023-05-09] MEDS: SERTRALINE 100 MG TAB PEG/G-TUBE SCH (07:57)
[2023-05-09] MEDS: DAPAGLIFLOZIN PROPANEDIOL 10 MG TABLET PO SCH (07:57)
[2023-05-09] MEDS: PIPERACILLIN-TAZOBACTAM 3.375 GM in SODIUM CHLORIDE 0.9% 100 ML IVPB SCH ×3 (07:58→23:56)
[2023-05-09] MEDS: IPRATROPIUM-ALBUTEROL 3 ML NEB INHALATION SCH ×4 (08:19→18:45)
[2023-05-09] MEDS: BUDESONIDE 0.5 MG/2 ML NEBU INHALATION SCH ×2 (08:19→18:45)
[2023-05-09] MEDS: SODIUM FERRIC GLUCONAT-SUCROSE 125 MG in SODIUM CHLORIDE 0.9% 100 ML IVPB SCH (08:24)
[2023-05-09 08:27] LABS: ALT 24 U/L (4-34); AST 37 U/L (14-36); African American GFR (CKD) >90 (>60 ml/min/1.73 sqM); Albumin 2.5 g/dL (3.5-5.0); Albumin/Globulin Ratio 0.9; Alkaline Phosphatase 80 U/L (38-126); Anion Gap 7 mmol/L; Blood Urea Nitrogen 31 mg/dL (7-17); Calcium 8.3 mg/dL (8.4-10.2); Carbon Dioxide 17 mmol/L (22-30); Chloride 107 mmol/L (98-107); Globulin 2.8 g/dL; Glucose 246 mg/dL (74-99); Non-African American GFR(CKD) >90 (>60 ml/min/1.73 sqM); Potassium 3.7 mmol/L (3.5-5.1); Sodium 131 mmol/L (137-145); Total Bilirubin 0.5 mg/dL (0.2-1.3); Total Protein 5.3 g/dL (6.3-8.2)
[2023-05-09 08:37] LABS: Anisocytosis Slight; HCT 25.9 % (34.0-46.0); HGB 8.2 gm/dL (11.4-16.0); Hypochromasia Moderate; MCH 26.3 pg (25.0-35.0); MCHC 31.6 g/dL (31.0-37.0); MCV 83.3 fL (80.0-100.0); Mean Platelet Volume 10.2; Platelet Count 293 k/uL (150-450); Poikilocytosis Slight; RBC 3.12 m/uL (3.80-5.40); RDW 18.8 % (11.5-15.5)
[2023-05-09 10:12] LABS: Lymphocytes # (M) 1.86 k/uL (1.0-4.8); Metamyelocytes # (M) 0.06 k/uL (0); Metamyelocytes % 1 %; Monocytes # (M) 0.29 k/uL (0-1.0); Myelocytes # (M) 0.06 k/uL (0); Myelocytes % 1 %; Neutrophils # (M) 3.65 k/uL (1.3-7.7); Neutrophils % (M) 63 %; Nucleated Red Blood Cells 6 /100 WBC (0-0); Total Cells Counted 200; WBC 5.8 k/uL (3.8-10.6)
[2023-05-09 10:14] LABS: Polychromasia Present; Tear Drop Cells Present
[2023-05-09 12:19] LABS: Glucose,Whole Blood 106 mg/dL (70-110)
--- NOTE | 2023-05-09 13:14 | PN ---
PROGRESS NOTE SUBJECTIVE: This is a 63-year-old -[place] female, watching out for her hemoglobin to see if it drops below 8. She came in at , so I am waiting for oncology about chronic long-term blood thinners. She has been on blood thinners, 2 different types that were discontinued due to GI bleeding, chronic anemia. She has recently been on Eliquis, low dose for last 6 months at least. She has bilateral patchy infiltrates, gram-negative pneumonia associated with bacteremia, gram-positive cocci, chronic headaches, hypoxemic respiratory failure. She has chronic left hemiparesis and she is bedbound. She has right-sided weakness on admission. She has moved her arm better now. She has hypertensive cardiovascular disease. She has COPD. She has sleep apnea. She has valvular heart disease. Blood pressure is 152/77, temp 99, pulse 74, respiratory rate 16 to 18. OBJECTIVE: GENERAL: She is and when she wakes up, she talks normal. She does not appear confused to me . LUNGS: Decreased breath sounds. She has a PEG tube in place for esophageal dysmobility, failed swallow study. CARDIOVASCULAR: S1, S2. HEMATOLOGIC: Ulcer in the left heel about a quarter-size, looks flesh-colored, stage II. GI: Decreased breath sounds. She has a PEG tube in place. INTEGUMENT: Dry skin, poor skin turgor. LABORATORY DATA: White count 7.5, hemoglobin 7.24, BUN is 39, creatinine 0.9. Sugars mid 100s. She has bilateral healthcare associated pneumonia, bacteremia, gram-positive cocci. Repeat blood cultures negative. Chronic hypoxemic respiratory failure, CVA with left hemiparesis, hypertensive cardiovascular disease, chronic anemia, heme-positive stools, back on Eliquis. We are watching her hemoglobin. Continues on Zosyn, Flagyl, possible vancomycin. Continue bronchodilators, oral steroids PT, OT. Please see further orders. MMODL / IJN: [id number] /
--- NOTE | 2023-05-09 14:00 | P.PN ---
Subjective Progress Note Date: 05/09/23 Principal diagnosis: Left heel wound, pneumonia and positive blood culture Patient is a 63-year-old -Chinese female with multiple comorbidities and did have a multiple admission to the hospital patient was brought to the ER for evaluation of fatigue and mental status changes patient noticed to have a nonhealing wound to the left heel area and some drainage around the PEG tube site CT abdominal pelvis was negative for any intra-abdominal abscess however the concern for possible pneumonia. On today's evaluation that is 05/09/2023, the patient remains to be afebrile the patient is breathing comfortably on 2LNC supplemental oxygen, the patient denies chest pain and no significant cough, patient denies abdominal pain and no nausea/vomiting or diarrhea the patient denies pain to the left heel Patient did have a white count of 5.8, creatinine 0.63 blood culture with coagulase negative staph Objective - Vital Signs Vital signs: Vital Signs Temp 98.4 F 05/09/23 05:45 Pulse 104 H 05/09/23 11:31 Resp 18 05/09/23 08:45 BP 142/78 05/09/23 05:45 Pulse Ox 100 05/09/23 05:45 FiO2 Intake & Output 05/08/23 05/09/23 05/09/23 18:59 06:59 18:59 Output Total 150 Balance -150 Weight 41 kg Output: Urine 150 Other: Voiding Method External Catheter External Catheter External Catheter # Voids 1 # Bowel Movements 1 - Exam GENERAL DESCRIPTION: An elderly female lying in bed in no distress RESPIRATORY SYSTEM: Unlabored breathing , decreased breath sounds at bases HEART: S1 S2 regular rate and rhythm , ABDOMEN: Soft , no tenderness EXTREMITIES: No edema feet - Labs CBC & Chem 7: 05/09/23 08:02 05/09/23 08:02 Labs: Abnormal Lab Results - Last 24 Hours (Table) 05/08/23 05/08/23 05/08/23 Range/Units 15:09 17:21 19:13 RBC (3.80-5.40) m/uL Hgb (11.4-16.0) gm/dL Hct (34.0-46.0) % RDW (11.5-15.5) % Metamyelocytes # (Man) (0) k/uL Myelocytes # (Manual) (0) k/uL Nucleated RBCs (0-0) /100 WBC Haptoglobin (31.2-198.0) mg/dL Sodium (137-145) mmol/L Carbon Dioxide (22-30) mmol/L BUN (7-17) mg/dL Glucose (74-99) mg/dL POC Glucose (mg/dL) 127 H (70-110) mg/dL Calcium (8.4-10.2) mg/dL TIBC 164 L (228-460) UG/DL % Saturation 93.90 H (12.00-45.00) Transferrin 117.0 L (204.0-354.0) mg/dL Ferritin 3341.0 H (10.0-291.0) ng/mL AST (14-36) U/L Lactate Dehydrogenase 436 H (120-246) U/L Total Protein (6.3-8.2) g/dL Albumin (3.5-5.0) g/dL Urine Glucose (UA) 2+ H (Negative) Ur Leukocyte Esterase Large H (Negative) Urine WBC 7 H (0-5) /hpf Urine Bacteria Rare H (None) /hpf Urine Yeast (Budding) Occasional H (None) /hpf 05/08/23 05/09/23 05/09/23 Range/Units 19:13 08:02 08:02 RBC 3.12 L (3.80-5.40) m/uL Hgb 8.2 L (11.4-16.0) gm/dL Hct 25.9 L (34.0-46.0) % RDW 18.8 H (11.5-15.5) % Metamyelocytes # (Man) 0.06 H (0) k/uL Myelocytes # (Manual) 0.06 H (0) k/uL Nucleated RBCs 6 H (0-0) /100 WBC Haptoglobin 218.0 H (31.2-198.0) mg/dL Sodium 131 L (137-145) mmol/L Carbon Dioxide 17 L (22-30) mmol/L BUN 31 H (7-17) mg/dL Glucose 246 H (74-99) mg/dL POC Glucose (mg/dL) (70-110) mg/dL Calcium 8.3 L (8.4-10.2) mg/dL TIBC (228-460) UG/DL % Saturation (12.00-45.00) Transferrin (204.0-354.0) mg/dL Ferritin (10.0-291.0) ng/mL AST 37 H (14-36) U/L Lactate Dehydrogenase (120-246) U/L Total Protein 5.3 L (6.3-8.2) g/dL Albumin 2.5 L (3.5-5.0) g/dL Urine Glucose (UA) (Negative) Ur Leukocyte Esterase (Negative) Urine WBC (0-5) /hpf Urine Bacteria (None) /hpf Urine Yeast (Budding) (None) /hpf Microbiology - Last 24 Hours (Table) 05/05/23 12:12 Blood Culture - Preliminary Blood Assessment and Plan (1) Positive blood culture Current Visit: Yes Status: Acute Code(s): R78.81 - BACTEREMIA SNOMED Code(s): 064329710 (2) Acute pneumonia Current Visit: Yes Status: Acute Code(s): J18.9 - PNEUMONIA, UNSPECIFIED ORGANISM SNOMED Code(s): 822053619 (3) Pressure ulcer of left heel, stage 3 Current Visit: Yes Status: Acute Code(s): L89.623 - PRESSURE ULCER OF LEFT HEEL, STAGE 3 SNOMED Code(s): 00048002524227 Plan: 1patient with a left heel wound with some slough tissue more likely a pressure ulcer stage III would benefit from local wound care with the Medihoney/Santyl however the patient nurse mention the caregiver would not allow them to apply anything and to give the opening of the pressure 2-patient also have some weakness on admission with abnormal CT suggestive of multifocal pneumonia we will try to obtain a sputum for Gram stain culture, patient did have procalcitonin of 0.54 3positive blood culture with coagulase negative staph likely contamination no need for vancomycin, blood culture has been repeated so far negative 4-patient is slowly clinically improving, to continue with the Zosyn to cover for the pneumonia and plan to finish therapy with oral Avelox on discharge Dictation was produced using [employer] dictation software. please excuse any grammatical, word or spelling errors. Time with Patient: Less than 30
--- NOTE | 2023-05-09 15:05 | P.PN ---
Subjective Progress Note Date: 05/09/23 CHIEF COMPLAINT: GI bleed HISTORY OF PRESENT ILLNESS: The patient is a 63-year-old female on blood thi nners and has feeding tube. Recently had blood in gastrostomy tube. Family at bedside showed pictures of bleeding from urine and Gtube. Otherwise, no further episodes today. She is on blood thinner and Protonix BID. ROS: Underweight, BMI 17.1. No bowel movements. No fevers or chills. No new chest pain. No productive sputum PHYSICAL EXAM: VITAL SIGNS: Reviewed CONSTITUTIONAL: Well developed and in no acute distress. EYES: Conjuctivae without sclera icterus. Extraocular movements grossly intact. HEAD, EARS, NOSE, THROAT: Moist buccal mucosa. Head is atraumatic, normocephalic. Hears conversational speech. No nasal drainage. RESPIRATORY: Non-labored respirations and equal bilateral excursions. CARDIOVASCULAR: Palpable 2+ radial pulses. ABDOMEN: G-tube intact without blood. MUSCULOSKELETAL: No gross deformity of the lower extremities noted. No clubbing. No cyanosis. SKIN: Good skin turgor. Well perfused. NEUROLOGIC: Cranial nerves II through XII grossly intact. No focal or lateralizing signs. PSYCH: Appropriate affect. Alert and oriented to person, place and time. CLINICAL LABS: Reviewed. Hemoglobin of 7.6-8.2, anemia ASSESSMENT: 1. Severe protein malnutrition 2. Underweight, BMI 17.1 3. GI bleed 4. Chronic anticoagulant use 5. Anemia PLAN: 1. Continue protonix 2. Monitor HGb while on blood thinner 3. Should she re-bleed then may benefit from upper scope. Objective - Vital Signs Vital signs: Vital Signs Temp 98.4 F 05/09/23 05:45 Pulse 104 H 05/09/23 11:31 Resp 18 05/09/23 08:45 BP 142/78 05/09/23 05:45 Pulse Ox 100 05/09/23 05:45 FiO2 Intake & Output 05/08/23 05/09/23 05/09/23 18:59 06:59 18:59 Output Total 150 Balance -150 Weight 41 kg Output: Urine 150 Other: Voiding Method External Catheter External Catheter External Catheter # Voids 1 # Bowel Movements 1 - Labs CBC & Chem 7: 05/09/23 08:02 05/09/23 08:02 Labs: Abnormal Lab Results - Last 24 Hours (Table) 05/08/23 05/08/23 05/08/23 Range/Units 12:02 13:47 15:09 RBC (3.80-5.40) m/uL Hgb (11.4-16.0) gm/dL Hct (34.0-46.0) % RDW (11.5-15.5) % Metamyelocytes # (Man) (0) k/uL Myelocytes # (Manual) (0) k/uL Nucleated RBCs (0-0) /100 WBC Haptoglobin (31.2-198.0) mg/dL Sodium (137-145) mmol/L Carbon Dioxide (22-30) mmol/L BUN (7-17) mg/dL Glucose (74-99) mg/dL POC Glucose (mg/dL) 116 H 128 H (70-110) mg/dL Calcium (8.4-10.2) mg/dL TIBC (228-460) UG/DL % Saturation (12.00-45.00) Transferrin (204.0-354.0) mg/dL Ferritin (10.0-291.0) ng/mL AST (14-36) U/L Lactate Dehydrogenase (120-246) U/L Total Protein (6.3-8.2) g/dL Albumin (3.5-5.0) g/dL Urine Glucose (UA) 2+ H (Negative) Ur Leukocyte Esterase Large H (Negative) Urine WBC 7 H (0-5) /hpf Urine Bacteria Rare H (None) /hpf Urine Yeast (Budding) Occasional H (None) /hpf 05/08/23 05/08/23 05/08/23 Range/Units 17:21 19:13 19:13 RBC (3.80-5.40) m/uL Hgb (11.4-16.0) gm/dL Hct (34.0-46.0) % RDW (11.5-15.5) % Metamyelocytes # (Man) (0) k/uL Myelocytes # (Manual) (0) k/uL Nucleated RBCs (0-0) /100 WBC Haptoglobin 218.0 H (31.2-198.0) mg/dL Sodium (137-145) mmol/L Carbon Dioxide (22-30) mmol/L BUN (7-17) mg/dL Glucose (74-99) mg/dL POC Glucose (mg/dL) 127 H (70-110) mg/dL Calcium (8.4-10.2) mg/dL TIBC 164 L (228-460) UG/DL % Saturation 93.90 H (12.00-45.00) Transferrin 117.0 L (204.0-354.0) mg/dL Ferritin 3341.0 H (10.0-291.0) ng/mL AST (14-36) U/L Lactate Dehydrogenase 436 H (120-246) U/L Total Protein (6.3-8.2) g/dL Albumin (3.5-5.0) g/dL Urine Glucose (UA) (Negative) Ur Leukocyte Esterase (Negative) Urine WBC (0-5) /hpf Urine Bacteria (None) /hpf Urine Yeast (Budding) (None) /hpf 05/09/23 05/09/23 Range/Units 08:02 08:02 RBC 3.12 L (3.80-5.40) m/uL Hgb 8.2 L (11.4-16.0) gm/dL Hct 25.9 L (34.0-46.0) % RDW 18.8 H (11.5-15.5) % Metamyelocytes # (Man) 0.06 H (0) k/uL Myelocytes # (Manual) 0.06 H (0) k/uL Nucleated RBCs 6 H (0-0) /100 WBC Haptoglobin (31.2-198.0) mg/dL Sodium 131 L (137-145) mmol/L Carbon Dioxide 17 L (22-30) mmol/L BUN 31 H (7-17) mg/dL Glucose 246 H (74-99) mg/dL POC Glucose (mg/dL) (70-110) mg/dL Calcium 8.3 L (8.4-10.2) mg/dL TIBC (228-460) UG/DL % Saturation (12.00-45.00) Transferrin (204.0-354.0) mg/dL Ferritin (10.0-291.0) ng/mL AST 37 H (14-36) U/L Lactate Dehydrogenase (120-246) U/L Total Protein 5.3 L (6.3-8.2) g/dL Albumin 2.5 L (3.5-5.0) g/dL Urine Glucose (UA) (Negative) Ur Leukocyte Esterase (Negative) Urine WBC (0-5) /hpf Urine Bacteria (None) /hpf Urine Yeast (Budding) (None) /hpf Microbiology - Last 24 Hours (Table) 05/05/23 12:12 Blood Culture - Preliminary Blood
[2023-05-09 17:39] LABS: Glucose,Whole Blood 107 mg/dL (70-110)
[2023-05-09] MEDS: risperiDONE 1 MG TAB PEG/G-TUBE SCH (21:31)
[2023-05-10] MEDS: DEXTROSE 5% IN WATER 1,000 ML IV SCH ×2 (00:06→21:30)
[2023-05-10 00:22] LABS: Glucose,Whole Blood 97 mg/dL (70-110)
[2023-05-10 05:51] LABS: Glucose,Whole Blood 85 mg/dL (70-110)
[2023-05-10] MEDS: APIXABAN 5 MG TAB PEG/G-TUBE SCH ×2 (07:56→21:31)
[2023-05-10] MEDS: DAPAGLIFLOZIN PROPANEDIOL 10 MG TABLET PO SCH (07:57)
[2023-05-10] MEDS: haloperidoL 5 MG TAB PEG/G-TUBE SCH ×2 (07:57→21:32)
[2023-05-10] MEDS: FUROSEMIDE 20 MG TAB PEG/G-TUBE SCH (07:57)
[2023-05-10] MEDS: DIVALPROEX SPRINKLE 125 MG CAP.SPRINK PEG/G-TUBE SCH ×2 (07:57→21:32)
[2023-05-10] MEDS: predniSONE 20 MG TAB PEG/G-TUBE SCH (07:58)
[2023-05-10] MEDS: LOSARTAN 25 MG TAB PEG/G-TUBE SCH (07:58)
[2023-05-10] MEDS: PANTOPRAZOLE 40 MG/10 ML VIAL IVP SCH ×2 (07:58→21:32)
[2023-05-10] MEDS: LACOSAMIDE 50 MG TABLET PEG/G-TUBE SCH ×2 (07:58→21:32)
[2023-05-10] MEDS: METOPROLOL TARTRATE 25 MG TAB PEG/G-TUBE SCH ×2 (07:58→21:32)
[2023-05-10] MEDS: SERTRALINE 100 MG TAB PEG/G-TUBE SCH (07:59)
[2023-05-10] MEDS: SERTRALINE 25 MG TAB PEG/G-TUBE SCH (07:59)
[2023-05-10] MEDS: BUDESONIDE 0.5 MG/2 ML NEBU INHALATION SCH ×2 (08:25→18:38)
[2023-05-10] MEDS: IPRATROPIUM-ALBUTEROL 3 ML NEB INHALATION SCH ×4 (08:25→18:38)
[2023-05-10 09:03] LABS: Basophils # (A) 0.01 X 10*3/uL (0.00-0.10); Basophils % (A) 0.2 %; Eosinophils # (A) 0.01 X 10*3/uL (0.04-0.35); Eosinophils % (A) 0.2 %; HCT 24.6 % (37.2-46.3); HGB 7.6 d/dL (12.0-15.0); Lymphocytes # (A) 1.36 X 10*3/uL (0.90-5.00); MCH 25.2 pg (27.0-32.0); MCHC 30.9 d/dL (32.0-37.0); MCV 81.5 FL (80.0-97.0); Mean Platelet Volume 10.6 FL (9.5-12.2); Monocytes # (A) 0.29 X 10*3/uL (0.20-1.00); Monocytes % (A) 5.8 %; NRBC Per 100 WBC 0.22 X 10*3/uL (0.00-0.01); Neutrophils # (A) 3.22 X 10*3/uL (1.80-7.70); Platelet Count 342 X 10*3/uL (140-440); RBC 3.02 X 10*6/uL (4.10-5.20); RDW 18.7 % (11.5-14.5); WBC 5.03 X 10*3/uL (4.50-10.00)
[2023-05-10 09:10] LABS: ALT 24 U/L (8-44); AST 33 U/L (13-35); Albumin 2.7 d/dL (3.8-4.9); Albumin/Globulin Ratio 1.12 Ratio (1.60-3.17); Alkaline Phosphatase 85 U/L (41-126); BUN/Creat Ratio 31.25 Ratio (12.00-20.00); Calcium 8.5 mg/dL (8.7-10.3); Carbon Dioxide 17.2 mmol/L (21.6-31.8); Chloride 113 mmol/L (96-109); Globulin 2.4 d/dL (1.6-3.3); Glucose 69 mg/dL (70-110); Potassium 3.9 mmol/L (3.5-5.5); Sodium 141 mmol/L (135-145); Total Bilirubin 0.2 mg/dL (0.3-1.2); Total Protein 5.1 d/dL (6.2-8.2)
[2023-05-10 12:09] LABS: Glucose,Whole Blood 86 mg/dL (70-110)
--- NOTE | 2023-05-10 15:14 | P.PN ---
Subjective Progress Note Date: 05/10/23 CHIEF COMPLAINT: GI bleed HISTORY OF PRESENT ILLNESS: The patient is a 63-year-old female on blood thi nners and has feeding tube. Recently had blood in gastrostomy tube. No acute events. No bleeding today. ROS: Underweight, BMI 17.1. No fevers or chills. No new chest pain. No productive sputum PHYSICAL EXAM: VITAL SIGNS: Reviewed CONSTITUTIONAL: Well developed and in no acute distress. EYES: Conjuctivae without sclera icterus. Extraocular movements grossly intact. HEAD, EARS, NOSE, THROAT: Moist buccal mucosa. Head is atraumatic, normocephalic. Hears conversational speech. No nasal drainage. RESPIRATORY: Non-labored respirations and equal bilateral excursions. CARDIOVASCULAR: Palpable 2+ radial pulses. ABDOMEN: G-tube intact without blood. MUSCULOSKELETAL: No gross deformity of the lower extremities noted. No clubbing. No cyanosis. SKIN: Good skin turgor. Well perfused. NEUROLOGIC: Cranial nerves II through XII grossly intact. No focal or lateralizing signs. PSYCH: Appropriate affect. CLINICAL LABS: Reviewed. Hemoglobin of 7.6-8.2, down to 7.6 anemia ASSESSMENT: 1. Severe protein malnutrition 2. Underweight, BMI 17.1 3. GI bleed 4. Chronic anticoagulant use 5. Anemia PLAN: 1. Hgb is trending downward with blood thinner. 2. May benefit from endoscopy if Hgb continues to decline. Objective - Vital Signs Vital signs: Vital Signs Temp 98.1 F 05/10/23 14:00 Pulse 81 05/10/23 14:00 Resp 20 05/10/23 14:00 BP 145/95 05/10/23 14:00 Pulse Ox 97 05/10/23 14:00 FiO2 Intake & Output 05/09/23 05/10/23 05/10/23 18:59 06:59 18:59 Output Total 350 500 400 Balance -350 -500 -400 Weight 43 kg Output: Urine 350 500 400 Other: Voiding Method External Catheter External Catheter External Catheter # Bowel Movements 1 - Labs CBC & Chem 7: 05/10/23 06:38 05/10/23 06:38 Labs: Abnormal Lab Results - Last 24 Hours (Table) 05/10/23 05/10/23 Range/Units 06:38 06:38 RBC 3.02 L (4.10-5.20) X 10*6/uL Hgb 7.6 L (12.0-15.0) d/dL Hct 24.6 L (37.2-46.3) % MCH 25.2 L (27.0-32.0) pg MCHC 30.9 L (32.0-37.0) d/dL RDW 18.7 H (11.5-14.5) % Eosinophils # 0.01 L (0.04-0.35) X 10*3/uL NRBC/100 WBC Diff 0.22 H (0.00-0.01) X 10*3/uL Chloride 113 H (96-109) mmol/L Carbon Dioxide 17.2 L (21.6-31.8) mmol/L BUN/Creatinine Ratio 31.25 H (12.00-20.00) Ratio Glucose 69 L (70-110) mg/dL Calcium 8.5 L (8.7-10.3) mg/dL Total Bilirubin 0.2 L (0.3-1.2) mg/dL Total Protein 5.1 L (6.2-8.2) d/dL Albumin 2.7 L (3.8-4.9) d/dL Albumin/Globulin Ratio 1.12 L (1.60-3.17) Ratio
[2023-05-10 17:36] LABS: Glucose,Whole Blood 133 mg/dL (70-110)
[2023-05-10] MEDS: risperiDONE 1 MG TAB PEG/G-TUBE SCH (21:32)
--- NOTE | 2023-05-10 23:01 | PN ---
PROGRESS NOTE Jeane Urbano remains on blood thinners. She has been on chronically. She has a feeding tube in place. She has a gastrotomy tube from urine and G-tube at home. She is on Protonix 40 b.i.d. now. She is being treated for aspiration pneumonia. She had a false-positive blood culture. Hemoglobin is trending between 7.5 and 8.5. She sleeps a lot, otherwise she wakes, talks normal, normal for her. Her G-tube is in place without blood. She has ulcer on her left heel, which was seen by Dr. Tristan. She has severe protein-calorie malnutrition, BMI 17. She had a GI bleed, chronic anticoagulants, anemia, aspiration pneumonia, COPD, diastolic CHF, acute on chronic tachycardia, hypertension acceleration. Continue Protonix. Monitor hemoglobin, possibly an upper GI per Dr. Torres's and she continues to lower her blood count. Dr. Tristan saw her for infection. He says she has a pressure ulcer, left heel stage III, acute on chronic pneumonia, positive blood cultures. Stage 3 ulcer, Medihoney to the ulcer on the left heel. Multifocal pneumonia, elevated procalcitonin, positive blood culture. possibly switched to oral Avelox on discharge. Talked to the family. Tube feedings been restarted. She will need Medihoney and Avelox to go home. Monitor hemoglobin at home. Her original CAT scan when she came in showed increase in possible new stroke. She has chronic left hemiparesis. She had right upper extremity paresis on admission that is improved. Possibly has an acute on chronic pulmonary infarct over the left basal ganglia, it was not seen on a repeat CAT scan. Carotids are negative. Neurology increased Vimpat from 150 b.i.d. to 200 b.i.d. for seizures, continued on home Depakote. Please see further orders. MMODL / IJN: [id number] /
[2023-05-11 00:30] LABS: Glucose,Whole Blood 80 mg/dL (70-110)
[2023-05-11 06:09] LABS: Glucose,Whole Blood 79 mg/dL (70-110)
[2023-05-11] MEDS: IPRATROPIUM-ALBUTEROL 3 ML NEB INHALATION SCH ×4 (07:50→18:26)
[2023-05-11] MEDS: BUDESONIDE 0.5 MG/2 ML NEBU INHALATION SCH ×2 (07:50→18:26)
[2023-05-11] MEDS: APIXABAN 5 MG TAB PEG/G-TUBE SCH (08:17)
[2023-05-11] MEDS: SERTRALINE 25 MG TAB PEG/G-TUBE SCH (08:17)
[2023-05-11] MEDS: SERTRALINE 100 MG TAB PEG/G-TUBE SCH (08:17)
[2023-05-11] MEDS: DAPAGLIFLOZIN PROPANEDIOL 10 MG TABLET PO SCH (08:17)
[2023-05-11] MEDS: FUROSEMIDE 20 MG TAB PEG/G-TUBE SCH (08:17)
[2023-05-11] MEDS: DIVALPROEX SPRINKLE 125 MG CAP.SPRINK PEG/G-TUBE SCH (08:17)
[2023-05-11] MEDS: METOPROLOL TARTRATE 25 MG TAB PEG/G-TUBE SCH (08:17)
[2023-05-11] MEDS: LOSARTAN 25 MG TAB PEG/G-TUBE SCH (08:17)
[2023-05-11] MEDS: PANTOPRAZOLE 40 MG/10 ML VIAL IVP SCH (08:17)
[2023-05-11] MEDS: LACOSAMIDE 50 MG TABLET PEG/G-TUBE SCH (08:17)
[2023-05-11] MEDS: haloperidoL 5 MG TAB PEG/G-TUBE SCH (08:17)
[2023-05-11] MEDS: predniSONE 20 MG TAB PEG/G-TUBE SCH (08:17)
[2023-05-11 08:27] LABS: Anisocytosis Slight; Basophils % (A) 0 %; Eosinophils # (A) 0.1 k/uL (0-0.7); Eosinophils % (A) 1 %; HCT 26.3 % (34.0-46.0); HGB 8.5 gm/dL (11.4-16.0); Hypochromasia Slight; Lymphocytes # (A) 1.2 k/uL (1.0-4.8); Lymphocytes % (A) 22 %; MCH 26.7 pg (25.0-35.0); MCHC 32.5 g/dL (31.0-37.0); MCV 82.3 fL (80.0-100.0); Mean Platelet Volume 9.4; Monocytes # (A) 0.4 k/uL (0-1.0); Monocytes % (A) 7 %; Neutrophils # (A) 3.8 k/uL (1.3-7.7); Neutrophils % (A) 68 %; Platelet Count 240 k/uL (150-450); Poikilocytosis Moderate; RDW 19.3 % (11.5-15.5); WBC 5.6 k/uL (3.8-10.6)
[2023-05-11] MEDS ORDERED: AMOXIC-POT CLAV 875-125MG 1 EACH TAB PO SCH (10:45)
[2023-05-11 12:11] LABS: Glucose,Whole Blood 89 mg/dL (70-110)
[2023-05-11 13:49] VITALS: BP 132/47; RESP 18; TEMP 97.9
--- NOTE | 2023-05-11 15:57 | P.PN ---
Subjective Progress Note Date: 05/11/23 Principal diagnosis: Anemia Patient was resting comfortably when seen, aroused briefly, denied any pain Objective - Vital Signs Vital signs: Vital Signs Temp 97.9 F 05/11/23 12:15 Pulse 80 05/11/23 15:24 Resp 18 05/11/23 12:15 BP 132/47 05/11/23 12:15 Pulse Ox 99 05/11/23 12:15 FiO2 Intake & Output 05/10/23 05/11/23 05/11/23 18:59 06:59 18:59 Output Total 800 350 200 Balance -800 -350 -200 Weight 43 kg Output: Urine 800 350 200 Other: Voiding Method External Catheter External Catheter External Catheter # Bowel Movements 1 1 - Constitutional General appearance: Present: average body habitus, cooperative, no acute distress - EENT ENT: Present: hearing grossly normal - Respiratory Details: Respirations even and unlabored at rest - Cardiovascular Details: Skin warm and dry to the touch - Musculoskeletal Musculoskeletal: Present: generalized weakness - Labs CBC & Chem 7: 05/11/23 07:03 05/10/23 06:38 Labs: Abnormal Lab Results - Last 24 Hours (Table) 05/08/23 05/10/23 05/11/23 Range/Units 19:13 17:35 07:03 RBC 3.20 L (3.80-5.40) m/uL Hgb 8.5 L (11.4-16.0) gm/dL Hct 26.3 L (34.0-46.0) % RDW 19.3 H (11.5-15.5) % Hemoglobin A1 95.1 L (96.5-97.8) % Hemoglobin A2 4.9 H (2.2-3.2) % POC Glucose (mg/dL) 133 H (70-110) mg/dL Microbiology - Last 24 Hours (Table) 05/05/23 12:12 Blood Culture - Final Blood Assessment and Plan (1) Anemia Current Visit: Yes Status: Chronic Priority: High Code(s): D64.9 - ANEMIA, UNSPECIFIED SNOMED Code(s): 073884924 (2) Beta thalassemia minor Current Visit: Yes Status: Chronic Priority: Medium Code(s): D56.3 - THALASSEMIA MINOR SNOMED Code(s): 605963085 Plan: Anemia, beta thalassemia minor -Hemoglobin stable today, 8.5, no transfusion needed. Transfuse for hemoglobin less than 7 -Hemolysis workup negative -Ferritin greater than 3000, saturation 93. -Pending hemoglobin electrophoresis
--- NOTE | 2023-05-11 16:02 | P.PN ---
Subjective Progress Note Date: 05/11/23 CHIEF COMPLAINT: Blood noted in tube feeds HISTORY OF PRESENT ILLNESS: Patient has had no further blood from the PEG tube. Reports no abdominal pain. She has been having bowel movements. HGB up from 7.6 to 8.5 PHYSICAL EXAM: VITAL SIGNS: Reviewed. GENERAL: Well-developed in no acute distress. ABDOMEN: Soft. Nondistended. Nontender. PEG tube site clean dry and intact. NEUROLOGIC: Alert and oriented. Cranial nerves II through XII grossly intact. ASSESSMENT: 1. Bleeding noted in tube feeds likely due to trauma at the PEG tube site. No further bleeding noted PLAN: -Continue tube feeds -Continue Protonix Physician Associate Java Developer note has been reviewed by physician. Signing provider agrees with the documented findings, assessment, and plan of care. Objective - Vital Signs Vital signs: Vital Signs Temp 98.3 F 05/11/23 07:46 Pulse 88 05/11/23 11:27 Resp 19 05/11/23 07:46 BP 112/89 05/11/23 07:46 Pulse Ox 100 05/11/23 07:46 FiO2 Intake & Output 05/10/23 05/11/23 05/11/23 18:59 06:59 18:59 Output Total 800 350 Balance -800 -350 Weight 43 kg Output: Urine 800 350 Other: Voiding Method External Catheter External Catheter # Bowel Movements 1 1 - Labs CBC & Chem 7: 05/11/23 07:03 05/10/23 06:38 Labs: Abnormal Lab Results - Last 24 Hours (Table) 05/10/23 05/11/23 Range/Units 17:35 07:03 RBC 3.20 L (3.80-5.40) m/uL Hgb 8.5 L (11.4-16.0) gm/dL Hct 26.3 L (34.0-46.0) % RDW 19.3 H (11.5-15.5) % POC Glucose (mg/dL) 133 H (70-110) mg/dL Microbiology - Last 24 Hours (Table) 05/05/23 12:12 Blood Culture - Final Blood
[2023-05-11 18:51] VITALS: PULSE 96
--- NOTE | 2023-05-11 23:19 | DS ---
DISCHARGE SUMMARY A 63-year-old white female. DISCHARGE MEDICATIONS: She is discharged home on, 1. Augmentin 875 q.12 hours for 5 days. 2. Vimpat 200 b.i.d. 3. Risperdal 1 mg at bedtime. 4. Zoloft 125 mg daily. 5. Haldol 2.5 b.i.d. 6. Lopressor 25 b.i.d. 7. DuoNeb q.i.d. 8. Pulmicort 0.5 b.i.d. 9. Zofran 4 mg through PEG tube. 10.Cozaar 25 mg daily. 11.Depakote 125 b.i.d. 12.Farxiga 10 mg daily. 13.Lasix 20 mg daily. 14.Eliquis 5 mg b.i.d. 15.Deltasone 40 mg daily. CONDITION: Stable. PROGNOSIS: Guarded. Ambulate as tolerated. Came in with bilateral pneumonia, most likely healthcare acquired pneumonia. Aspiration pneumonia is treated with IV antibiotics, updraft treatments. She had a false-positive blood culture. She possibly had an extension of her stroke with right- sided weakness, which improved while she is in the hospital. She had anemia. They took her off her blood thinner, then put her back on. She was cleared by multiple people for discharge. She demanded to be discharged. She will not stay a day later in the hospital that she is. She wants to be discharged home. Medications were adjusted. Tube feeding was given. She has a stage III pressure ulcer on the left heel, for which Medihoney will be applied. Urine culture was negative. Bilateral pneumonia was treated as mentioned. She will follow up as an outpatient. Condition stable. Prognosis guarded. Seizure precautions. Wear oxygen at night as she had qualified for it. MMODL / IJN: [id number] /
--- NOTE | 2023-05-18 13:03 | P.PN ---
Subjective Progress Note Date: 05/10/23 Principal diagnosis: Left heel wound, pneumonia and positive blood culture Patient is a 63-year-old -L[place] female with multiple comorbidities and did have a multiple admission to the hospital patient was brought to the ER for evaluation of fatigue and mental status changes patient noticed to have a nonhealing wound to the left heel area and some drainage around the PEG tube site CT abdominal pelvis was negative for any intra-abdominal abscess however the concern for possible pneumonia. On today's evaluation that is 05/17/2023, the patient remains to be afebrile, the patient is breathing comfortably on 2 L nasal cannula supplemental oxygen , the patient denies chest pain or cough, patient denies nausea/vomiting or diarrhea and denies any abdominal pain the patient denies pain to the left heel Patient did have a white count of 5.03, creatinine 0.8 blood culture with coagulase negative staph Objective - Vital Signs Vital signs: Vital Signs Temp 98.1 F 05/10/23 14:00 Pulse 80 05/10/23 15:44 Resp 20 05/10/23 14:00 BP 145/95 05/10/23 14:00 Pulse Ox 97 05/10/23 14:00 FiO2 Intake & Output 05/09/23 05/10/23 05/10/23 18:59 06:59 18:59 Output Total 350 500 800 Balance -350 -500 -800 Weight 43 kg Output: Urine 350 500 800 Other: Voiding Method External Catheter External Catheter External Catheter # Bowel Movements 1 1 - Exam GENERAL DESCRIPTION: An elderly female lying in bed in no distress RESPIRATORY SYSTEM: Unlabored breathing , decreased breath sounds at bases HEART: S1 S2 regular rate and rhythm , ABDOMEN: Soft , no tenderness EXTREMITIES: No edema feet - Labs CBC & Chem 7: 05/11/23 07:03 05/10/23 06:38 Labs: Abnormal Lab Results - Last 24 Hours (Table) 05/10/23 05/10/23 05/10/23 Range/Units 06:38 06:38 17:35 RBC 3.02 L (4.10-5.20) X 10*6/uL Hgb 7.6 L (12.0-15.0) d/dL Hct 24.6 L (37.2-46.3) % MCH 25.2 L (27.0-32.0) pg MCHC 30.9 L (32.0-37.0) d/dL RDW 18.7 H (11.5-14.5) % Eosinophils # 0.01 L (0.04-0.35) X 10*3/uL NRBC/100 WBC Diff 0.22 H (0.00-0.01) X 10*3/uL Chloride 113 H (96-109) mmol/L Carbon Dioxide 17.2 L (21.6-31.8) mmol/L BUN/Creatinine Ratio 31.25 H (12.00-20.00) Ratio Glucose 69 L (70-110) mg/dL POC Glucose (mg/dL) 133 H (70-110) mg/dL Calcium 8.5 L (8.7-10.3) mg/dL Total Bilirubin 0.2 L (0.3-1.2) mg/dL Total Protein 5.1 L (6.2-8.2) d/dL Albumin 2.7 L (3.8-4.9) d/dL Albumin/Globulin Ratio 1.12 L (1.60-3.17) Ratio Assessment and Plan (1) Positive blood culture Status: Acute Code(s): R78.81 - BACTEREMIA SNOMED Code(s): 973254056 (2) Acute pneumonia Status: Acute Code(s): J18.9 - PNEUMONIA, UNSPECIFIED ORGANISM SNOMED Code(s): 823372917 (3) Pressure ulcer of left heel, stage 3 Status: Acute Code(s): L89.623 - PRESSURE ULCER OF LEFT HEEL, STAGE 3 SNOMED Code(s): 89158121973933 Plan: 1patient with a left heel wound with some slough tissue more likely a pressure ulcer stage III would benefit from local wound care with the Medihoney/Santyl however the patient nurse mention the caregiver would not allow them to apply anything and to give the opening of the pressure 2-patient also have some weakness on admission with abnormal CT suggestive of multifocal pneumonia we will try to obtain a sputum for Gram stain culture, patient did have procalcitonin of 0.54 3positive blood culture with coagulase negative staph likely contamination no need for vancomycin, blood culture has been repeated so far negative 4-patient has shown clinical improvement, to continue with the Zosyn to cover for the pneumonia and plan to finish therapy with Augmentin on discharge Dictation was produced using [employer] software. please excuse any grammatical, word or spelling errors.
--- NOTE | 2023-05-18 13:04 | P.PN ---
Subjective Progress Note Date: 05/11/23 Principal diagnosis: Left heel wound, pneumonia and positive blood culture Patient is a 63-year-old -Azerbaij[place] female with multiple comorbidities and did have a multiple admission to the hospital patient was brought to the ER for evaluation of fatigue and mental status changes patient noticed to have a nonhealing wound to the left heel area and some drainage around the PEG tube site CT abdominal pelvis was negative for any intra-abdominal abscess however the concern for possible pneumonia. On today's evaluation that is 05/11/2023, the patient remains to be afebrile, the patient is breathing comfortably on 2 L nasal cannula oxygen and no shortness of breath, the patient denies having any chest pain or cough, patient denies nausea/vomiting /diarrhea and no abdominal pain, the patient denies pain to the left heel Patient did have a white count of 5.6, creatinine 0.8 blood culture with coagulase negative staph Objective - Vital Signs Vital signs: Vital Signs Temp 98.3 F 05/11/23 07:46 Pulse 88 05/11/23 08:03 Resp 19 05/11/23 07:46 BP 112/89 05/11/23 07:46 Pulse Ox 100 05/11/23 07:46 FiO2 Intake & Output 05/10/23 05/11/23 05/11/23 18:59 06:59 18:59 Output Total 800 350 Balance -800 -350 Weight 43 kg Output: Urine 800 350 Other: Voiding Method External Catheter External Catheter # Bowel Movements 1 1 - Exam GENERAL DESCRIPTION: An elderly female lying in bed in no distress RESPIRATORY SYSTEM: Unlabored breathing , decreased breath sounds at bases HEART: S1 S2 regular rate and rhythm , ABDOMEN: Soft , no tenderness EXTREMITIES: No edema feet - Labs CBC & Chem 7: 05/11/23 07:03 05/10/23 06:38 Labs: Abnormal Lab Results - Last 24 Hours (Table) 05/10/23 05/11/23 Range/Units 17:35 07:03 RBC 3.20 L (3.80-5.40) m/uL Hgb 8.5 L (11.4-16.0) gm/dL Hct 26.3 L (34.0-46.0) % RDW 19.3 H (11.5-15.5) % POC Glucose (mg/dL) 133 H (70-110) mg/dL Microbiology - Last 24 Hours (Table) 05/05/23 12:12 Blood Culture - Final Blood Assessment and Plan (1) Positive blood culture Status: Acute Code(s): R78.81 - BACTEREMIA SNOMED Code(s): 590671412 (2) Acute pneumonia Status: Acute Code(s): J18.9 - PNEUMONIA, UNSPECIFIED ORGANISM SNOMED Code(s): 809870219 (3) Pressure ulcer of left heel, stage 3 Status: Acute Code(s): L89.623 - PRESSURE ULCER OF LEFT HEEL, STAGE 3 SNOMED Code(s): 43178802912995 Plan: 1patient with a left heel wound with some slough tissue more likely a pressure ulcer stage III would benefit from local wound care with the Medihocliff/Santyl however the patient nurse mention the caregiver would not allow them to apply anything and to give the opening of the pressure 2-patient also have some weakness on admission with abnormal CT suggestive of multifocal pneumonia we will try to obtain a sputum for Gram stain culture, patient did have procalcitonin of 0.54 3positive blood culture with coagulase negative staph likely contamination no need for vancomycin, blood culture has been repeated so far negative 4-patient has shown clinical improvement, to finish therapy with Augmentin, p rescription was sent to the pharmacy Dictation was produced using [employer] dictation software. please excuse any grammatical, word or spelling errors. Time with Patient: Less than 30
== END 2023-05-11 19:21 | disposition home or self-care (01) | DRG 64 ==
LOC: EC 15:05 → EEVIPCON 15:05 → 5NMEDONC 18:20
PROVIDERS: ADMIT Family Medicine; ATTEND Family Medicine
PROC: 3E0F7SF Introduction of Other Gas into Respiratory Tract, Via Natural or Artificial Opening (ICD-10-PCS; principal; 2023-05-02)
PROC: 05HB33Z Insertion of Infusion Device into Right Basilic Vein, Percutaneous Approach (ICD-10-PCS; 2023-05-07)
PROC: 05HB33Z Insertion of Infusion Device into Right Basilic Vein, Percutaneous Approach (ICD-10-PCS; 2023-05-08)
PROC: 3E0336Z Introduction of Nutritional Substance into Peripheral Vein, Percutaneous Approach (ICD-10-PCS; 2023-05-10)
DX: I63.81 Other cerebral infarction due to occlusion or stenosis of small artery (principal); E43 Unspecified severe protein-calorie malnutrition; L89.623 Pressure ulcer of left heel, stage 3; I50.33 Acute on chronic diastolic (congestive) heart failure; J18.9 Pneumonia, unspecified organism; J69.0 Pneumonitis due to inhalation of food and vomit; J96.21 Acute and chronic respiratory failure with hypoxia; G81.91 Hemiplegia, unspecified affecting right dominant side; I69.354 Hemiplegia and hemiparesis following cerebral infarction affecting left non-dominant side; N39.0 Urinary tract infection, site not specified; F20.0 Paranoid schizophrenia; J44.0 Chronic obstructive pulmonary disease with (acute) lower respiratory infection; L97.219 Non-pressure chronic ulcer of right calf with unspecified severity; Z68.1 Body mass index [BMI] 19.9 or less, adult; E87.1 Hypo-osmolality and hyponatremia; K92.2 Gastrointestinal hemorrhage, unspecified; K94.21 Gastrostomy hemorrhage; I11.0 Hypertensive heart disease with heart failure; K74.60 Unspecified cirrhosis of liver; D64.9 Anemia, unspecified; G40.909 Epilepsy, unspecified, not intractable, without status epilepticus; E78.5 Hyperlipidemia, unspecified; E87.6 Hypokalemia; Y95 Nosocomial condition; Z74.01 Bed confinement status; Z79.01 Long term (current) use of anticoagulants; Z79.899 Other long term (current) drug therapy; Z87.01 Personal history of pneumonia (recurrent); D50.9 Iron deficiency anemia, unspecified; M62.422 Contracture of muscle, left upper arm; D56.3 Thalassemia minor; F03.90 Unspecified dementia, unspecified severity, without behavioral disturbance, psychotic disturbance, mood disturbance, and anxiety; G47.30 Sleep apnea, unspecified; G83.84 Todd's paralysis (postepileptic); R13.10 Dysphagia, unspecified; M10.9 Gout, unspecified; I08.3 Combined rheumatic disorders of mitral, aortic and tricuspid valves; M19.90 Unspecified osteoarthritis, unspecified site; Z82.49 Family history of ischemic heart disease and other diseases of the circulatory system; Z88.5 Allergy status to narcotic agent; Z87.440 Personal history of urinary (tract) infections; Z90.49 Acquired absence of other specified parts of digestive tract
CPT/HCPCS: 36415; 70450; 71045; 71046; 71250; 74018; 74150; 80048; 80053; 80061; 80177; 81001; 81364; 82140; 82271; 82728; 83010; 83021; 83036; 83540; 83550; 83605; 83615; 83735; 83880; 84132; 84145; 85025; 85027; 85045; 85610; 85730; 86140; 87040; 87086; 87449; 87636; 93005; 93308; 93880; 94640; 94760; 96361; 96365; 96366; 96375; 99285

== ENCOUNTER 2023-05-24 19:56 | Inpatient (IN) | payer MEDICARE, OTHER ==
[2023-05-24] MEDS ORDERED: SODIUM CHLORIDE 0.9% 500 ML 500 ML IV STA (20:03)
[2023-05-24] MEDS ORDERED: SODIUM CHLORIDE 0.9% 1,000 ML IV STA ×2 (20:03)
--- NOTE | 2023-05-24 20:06 | ED ---
Altered Mental Status HPI - General Stated Complaint: Change in Mental Status, Possible Seizure Time Seen by Provider: 05/24/23 20:03 Source: RN notes reviewed, old records reviewed Mode of arrival: ambulatory Limitations: no limitations - History of Present Illness Initial Comments: This is a 63-year-old female to the emergency department for evaluation he. Patient presents today for evaluation because to weakness altered mental status and seizure prior to arrival. Patient is unable to provide history here in the ER. MD Complaint: altered mental status, confusion, decreased responsiveness, weakness -: days(s) Severity: mild Consistency of Symptoms: waxing and waning, getting worse Context: alcohol abuse, history of similar presentation Associated Symptoms: weakness Treatments Prior to Arrival: glucose, IV fluid - Related Data Home Medications Medication Instructions Recorded Confirmed Sertraline [Zoloft] 25 mg PEG/G-TUBE DAILY 07/03/22 05/24/23 Sertraline [Zoloft] 100 mg PEG/G-TUBE DAILY 07/03/22 05/24/23 risperiDONE [RisperDAL] 1 mg PEG/G-TUBE HS 07/03/22 05/24/23 Ascorbic Acid [Vitamin C] 250 mg PEG/G-TUBE DAILY 02/18/23 05/24/23 Metoprolol Tartrate [Lopressor] 25 mg PEG/G-TUBE BID 02/18/23 05/24/23 haloperidoL [Haldol] 2.5 mg PEG/G-TUBE Q12H 02/18/23 05/24/23 Apixaban [Eliquis] 5 mg PEG/G-TUBE BID 05/02/23 05/24/23 Dapagliflozin Propanediol [Farxiga] 10 mg PEG/G-TUBE DAILY 05/02/23 05/24/23 Divalproex Sprinkle [Depakote 125 mg PEG/G-TUBE BID 05/02/23 05/24/23 Sprinkle] Furosemide [Lasix] 20 mg PEG/G-TUBE DAILY 05/02/23 05/24/23 Losartan [Cozaar] 25 mg PEG/G-TUBE DAILY 05/02/23 05/24/23 Ondansetron [Zofran] 4 mg PEG/G-TUBE Q6H PRN 05/02/23 05/24/23 predniSONE [Deltasone] 40 mg PEG/G-TUBE DAILY 05/02/23 05/24/23 Cholestyramine (with Sugar) 4 gm PEG/G-TUBE BID 05/24/23 05/24/23 [Cholestyramine Packet] Lacosamide [Vimpat] 150 mg PEG/G-TUBE BID 05/24/23 05/24/23 Loperamide [Imodium] 2 mg PO QID PRN 05/24/23 05/24/23 Previous Rx's Medication Instructions Recorded Budesonide [Pulmicort] 0.5 mg INHALATION RT-BID 30 Days 02/25/23 #60 ml Ipratropium-Albuterol Nebulize 3 ml INHALATION RT-QID 30 Days 02/25/23 [Duoneb 0.5 mg-3 mg/3 ml Soln] #120 each Allergies Allergy/AdvReac Type Severity Reaction Status Date / Time hydromorphone [From Dilaudid] Allergy Swelling Verified 05/24/23 21:25 morphine Allergy Swelling Verified 05/24/23 21:25 Review of Systems ROS Statement: Those systems with pertinent positive or pertinent negative responses have been documented in the HPI. ROS Other: All systems not noted in ROS Statement are negative. 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 gout, PANCREATITIS, pseudoseizures, UTI, gallstones, tremors, hx multiple brain aneursyms, pressure injuries to right calf and left heel History of Any Multi-Drug Resistant Organisms: ESBL, MRSA Date of last positivie culture/infection: 02/03/23-MRSA; 03/18/18 ESBL MDRO Source:: Right Lateral Calf- MRSA; Urine-ESBL Past Surgical History: Section, Cholecystectomy, Orthopedic Surgery Additional Past Surgical History / Comment(s): hx aneurysms- COILS AND STENTS TO BRAIN, repair tendons r/t gout BILATERAL FEET; Pain pump inserted on 04/21/22 Past Anesthesia/Blood Transfusion Reactions: No Reported Reaction Additional Past Anesthesia/Blood Transfusion Reaction / Comment(s): PT HAS HAD BLOOD TRANSFUSIONS FOR ANEMIA-NO REACTION. Past Psychological History: Anxiety, Depression, Schizophrenia Smoking Status: Former smoker - Past Family History Sister(s) Family Medical History: Myocardial Infarction ([place]) Father Family Medical History: Cancer Additional Family Medical History / Comment(s): throat, lung, and rectal cancer Mother Family Medical History: Myocardial Infarction ([place]) Additional Family Medical History / Comment(s): stroke General Exam General appearance: alert, in no apparent distress Head exam: Present: atraumatic, normocephalic, normal inspection Eye exam: Present: normal appearance, PERRL, EOMI. Absent: scleral icterus, conjunctival injection, periorbital swelling ENT exam: Present: normal exam, mucous membranes moist Neck exam: Present: normal inspection. Absent: tenderness, meningismus, lymphadenopathy Respiratory exam: Present: normal lung sounds bilaterally. Absent: respiratory distress, wheezes, rales, rhonchi, stridor Cardiovascular Exam: Present: regular rate, normal rhythm, normal heart sounds. Absent: systolic murmur, diastolic murmur, rubs, gallop, clicks GI/Abdominal exam: Present: soft, normal bowel sounds. Absent: distended, tenderness, guarding, rebound, rigid Extremities exam: Present: normal inspection, full ROM, normal capillary refill. Absent: tenderness, pedal edema, joint swelling, calf tenderness Back exam: Present: normal inspection Neurological exam: Present: alert, oriented X3, CN II-XII intact Psychiatric exam: Present: normal affect, normal mood Skin exam: Present: warm, dry, intact, normal color. Absent: rash Course Vital Signs 05/24/23 05/24/23 05/24/23 20:03 20:27 21:00 Temperature Pulse Rate 102 H 84 Respiratory 18 10 L Rate Blood Pressure 133/89 133/89 158/96 O2 Sat by Pulse 95 93 L 94 L Oximetry 05/24/23 05/24/23 05/24/23 22:00 22:33 23:00 Temperature Pulse Rate 89 85 89 Respiratory 20 18 18 Rate Blood Pressure 151/105 137/93 137/93 O2 Sat by Pulse 91 L 94 L 93 L Oximetry 05/25/23 05/25/23 05/25/23 02:00 05:00 06:00 Temperature 98.5 F Pulse Rate 77 84 85 Respiratory 20 16 18 Rate Blood Pressure 130/91 154/82 158/87 O2 Sat by Pulse 93 L 94 L 95 Oximetry - Reevaluation(s) Reevaluation #1: 05/24/23 20:06 Medical records reviewed Reevaluation #2: 05/24/23 21:31 Patient has no recurrent seizure here in the ER remains altered and unresponsive Reevaluation #3: 05/24/23 21:31 Patient informed results and questions answered Reevaluation #4: 05/24/23 20:05 Was pt. sent in by a medical professional or institution ([facility], [facility], urgent care, hospital, or jail...) When possible be specific @ -no Did you speak to anyone other than the patient for history (EMS, parent, family, police, friend...)? What history was obtained from this source @ -no Did you review nursing and triage notes (agree or disagree)? Why? @ -agree Are old charts reviewed (outside hosp., previous admission, EMS record, old EKG, old radiological studies, urgent care reports/EKG's, jail records)? Report findings @ -yes Differential Diagnosis (chest pain, altered mental status, abdominal pain women, abdominal pain men, vaginal bleeding, weakness, fever, dyspnea, syncope, headache, dizziness, GI bleed, back pain, seizure, CVA, palpatations, mental he alth, musculoskeletal)? @ -prior EKG interpreted by me (3pts min.). @ -yes X-rays interpreted by me (1pt min.). @ -yes CT interpreted by me (1pt min.). @ -no U/S interpreted by me (1pt. min.). @ -no What testing was considered but not performed or refused? (CT, X-rays, U/S, labs)? Why? @ -none What meds were considered but not given or refused? Why? @ -none Did you discuss the management of the patient with other professionals (professionals i.e. [facility], [facility], lab, RT, psych nurse, addiction social worker, field marketing coordinator, teacher, ecological technical officer, case consultant)? Give summary @ -no Was smoking cessation discussed for >3mins.? @ -no Was critical care preformed (if so, how long)? @ -no Were there social determinants of health that impacted care today? How? (Homelessness, low income, unemployed, alcoholism, drug addiction, transportation, low edu. Level, literacy, decrease access to med. care, halfway, rehab)? @ -none Was there de-escalation of care discussed even if they declined (Discuss DNR or withdrawal of care, Hospice)? DNR status @ -no What co-morbidities impacted this encounter? (DM, HTN, Smoking, COPD, CAD, Cancer, CVA, ARF, Chemo, Hep., AIDS, mental health diagnosis, sleep apnea, morbi d obesity)? @ -none Was patient admitted / discharged? Hospital course, mention meds given and rout e, prescriptions, significant lab abnormalities, going to OR and other pertinent info. @ - Undiagnosed new problem with uncertain prognosis? @ -no Drug Therapy requiring intensive monitoring for toxicity (Heparin, Nitro, Insulin, Cardizem)? @ -no Were any procedures done? @ -no Diagnosis/symptom? @ - Acute, or Chronic, or Acute on Chronic? @ -Acute Uncomplicated (without systemic symptoms) or Complicated (systemic symptoms)? @ -Complicated Side effects of treatment? @ -no Exacerbation, Progression, or Severe Exacerbation? @ -exacerbation Poses a threat to life or bodily function? How? (Chest pain, [place], [place], pneumonia, PE, COPD, DKA, ARF, appy, cholecystitis, CVA, Diverticulitis, Homicidal, Suicidal, threat to staff... and all critical care pts) @ -yes Reevaluation #5: 05/24/23 20:05 Differential Altered Mental Status: Hypoglycemia, DKA, hypercapnia, ETOH, overdose, CO poisoning, trauma, myxedema coma, HTN encephalopathy, infection, encephalitis, psychosis, intercranial hemorrhage, hepatic encephalopathy, meningitis, CVA, this is not meant to be an all-inclusive list Differential Seizure: Recurrent seizure disorder, febrile seizure, alcohol withdrawal, stimulants, meningitis, encephalitis, intercranial hemorrhage, intracranial tumor, stroke, eclampsia, thyrotoxicosis, hypocalcemia, hyponatremia, hypernatremia, hypomagnesemia, psychogenic, this is not meant to be an all-inclusive list. - Consultations Consultation #1: Spoke with Dr. Merino who agrees to admit this patient Medical Decision Making - Medical Decision Making 63 female DF for evaluation of seizure recurrent seizure. Patient found of significant urinary tract infection and patient will be admitted for IV antibiotics - Lab Data Result diagrams: 05/29/23 07:29 05/29/23 07:29 Lab Results 05/24/23 05/24/23 05/24/23 Range/Units 20:20 20:20 20:20 WBC 15.1 H (3.8-10.6) k/uL RBC 3.49 L (3.80-5.40) m/uL Hgb 8.7 L (11.4-16.0) gm/dL Hct 28.7 L (34.0-46.0) % MCV 82.2 (80.0-100.0) fL MCH 24.9 L (25.0-35.0) pg MCHC 30.3 L (31.0-37.0) g/dL RDW 18.5 H (11.5-15.5) % Plt Count 511 H D (150-450) k/uL MPV 8.5 Neutrophils % (Manual) 56 % Band Neuts % (Manual) 1 % Lymphocytes % (Manual) 29 % Monocytes % (Manual) 12 % Metamyelocytes % 1 % Myelocytes % 1 % Neutrophils # (Manual) 8.60 H (1.3-7.7) k/uL Lymphocytes # (Manual) 4.38 (1.0-4.8) k/uL Monocytes # (Manual) 1.81 H (0-1.0) k/uL Metamyelocytes # (Man) 0.15 H (0) k/uL Myelocytes # (Manual) 0.15 H (0) k/uL Nucleated RBCs 3 H (0-0) /100 WBC Manual Slide Review Performed Polychromasia Present Hypochromasia Moderate Poikilocytosis Slight Poikilocytosis (manual Present Anisocytosis Slight Anisocytosis (manual) Present Target Cells Present Tear Drop Cells Present Ovalocytes Present Sodium 138 (137-145) mmol/L Potassium 5.7 H (3.5-5.1) mmol/L Chloride 107 (98-107) mmol/L Carbon Dioxide 20 L (22-30) mmol/L Anion Gap 11 mmol/L BUN 46 H (7-17) mg/dL Creatinine 0.91 (0.52-1.04) mg/dL Est GFR (CKD-EPI)AfAm 77 (>60 ml/min/1.73 sqM) Est GFR (CKD-EPI)NonAf 66 (>60 ml/min/1.73 sqM) Glucose 92 (74-99) mg/dL Calcium 8.8 (8.4-10.2) mg/dL Phosphorus 4.3 (2.5-4.5) mg/dL Magnesium 2.1 (1.6-2.3) mg/dL Total Bilirubin 0.3 (0.2-1.3) mg/dL AST 70 H (14-36) U/L ALT 36 H (4-34) U/L Alkaline Phosphatase 210 H (38-126) U/L Ammonia <9 (<30) umol/L Total Protein 6.5 (6.3-8.2) g/dL Albumin 3.0 L (3.5-5.0) g/dL Lipase 49 (23-300) U/L Urine Color Urine Appearance (Clear) Urine pH (5.0-8.0) Ur Specific [place] (1.001-1.035) Urine Protein (Negative) Urine Glucose (UA) (Negative) Urine Ketones (Negative) Urine Blood (Negative) Urine Nitrite (Negative) Urine Bilirubin (Negative) Urine Urobilinogen (<2.0) mg/dL Ur Leukocyte Esterase (Negative) Urine RBC (0-5) /hpf Urine WBC (0-5) /hpf Urine WBC Clumps (None) /hpf Ur Squamous Epith Cells (0-4) /hpf Urine Bacteria (None) /hpf Serum Alcohol <10 mg/dL 05/24/23 Range/Units 20:47 WBC (3.8-10.6) k/uL RBC (3.80-5.40) m/uL Hgb (11.4-16.0) gm/dL Hct (34.0-46.0) % MCV (80.0-100.0) fL MCH (25.0-35.0) pg MCHC (31.0-37.0) g/dL RDW (11.5-15.5) % Plt Count (150-450) k/uL MPV Neutrophils % (Manual) % Band Neuts % (Manual) % Lymphocytes % (Manual) % Monocytes % (Manual) % Metamyelocytes % % Myelocytes % % Neutrophils # (Manual) (1.3-7.7) k/uL Lymphocytes # (Manual) (1.0-4.8) k/uL Monocytes # (Manual) (0-1.0) k/uL Metamyelocytes # (Man) (0) k/uL Myelocytes # (Manual) (0) k/uL Nucleated RBCs (0-0) /100 WBC Manual Slide Review Polychromasia Hypochromasia Poikilocytosis Poikilocytosis (manual Anisocytosis Anisocytosis (manual) Target Cells Tear Drop Cells Ovalocytes Sodium (137-145) mmol/L Potassium (3.5-5.1) mmol/L Chloride (98-107) mmol/L Carbon Dioxide (22-30) mmol/L Anion Gap mmol/L BUN (7-17) mg/dL Creatinine (0.52-1.04) mg/dL Est GFR (CKD-EPI)AfAm (>60 ml/min/1.73 sqM) Est GFR (CKD-EPI)NonAf (>60 ml/min/1.73 sqM) Glucose (74-99) mg/dL Calcium (8.4-10.2) mg/dL Phosphorus (2.5-4.5) mg/dL Magnesium (1.6-2.3) mg/dL Total Bilirubin (0.2-1.3) mg/dL AST (14-36) U/L ALT (4-34) U/L Alkaline Phosphatase (38-126) U/L Ammonia (<30) umol/L Total Protein (6.3-8.2) g/dL Albumin (3.5-5.0) g/dL Lipase (23-300) U/L Urine Color Yellow Urine Appearance Turbid H (Clear) Urine pH 7.5 (5.0-8.0) Ur Specific [place] 1.019 (1.001-1.035) Urine Protein 2+ H (Negative) Urine Glucose (UA) Negative (Negative) Urine Ketones Negative (Negative) Urine Blood Small H (Negative) Urine Nitrite Negative (Negative) Urine Bilirubin Negative (Negative) Urine Urobilinogen <2.0 (<2.0) mg/dL Ur Leukocyte Esterase Large H (Negative) Urine RBC 92 H (0-5) /hpf Urine WBC >182 H (0-5) /hpf Urine WBC Clumps Many H (None) /hpf Ur Squamous Epith Cells 28 H (0-4) /hpf Urine Bacteria Moderate H (None) /hpf Serum Alcohol mg/dL Disposition Clinical Impression: Recurrent seizures, AMS (altered mental status), Confusion, Weakness, UTI (urinary tract infection) Disposition: ADMITTED IP TO THIS HOSP Condition: Fair Is patient prescribed a controlled substance at d/c from ED?: No Time of Disposition: 21:30
[2023-05-24] MEDS ORDERED: LORazepam 2 MG/ML INJ IV STA (20:27)
[2023-05-24 20:59] LABS: Anisocytosis Slight; HCT 28.7 % (34.0-46.0); HGB 8.7 gm/dL (11.4-16.0); Hypochromasia Moderate; MCH 24.9 pg (25.0-35.0); MCHC 30.3 g/dL (31.0-37.0); MCV 82.2 fL (80.0-100.0); Mean Platelet Volume 8.5; Poikilocytosis Slight; RBC 3.49 m/uL (3.80-5.40); RDW 18.5 % (11.5-15.5)
[2023-05-24 21:00] LABS: Appearance,Urine Turbid (Clear); Bacteria,Urine Moderate /hpf; Bilirubin,Urine Negative (Negative); Blood,Urine Small (Negative); Color,Urine Yellow; Glucose,Urine (UA) Negative (Negative); Ketones,Urine Negative (Negative); Leukocyte Esterase,Urine Large (Negative); Nitrite,Urine Negative (Negative); PH, Urine 7.5 (5.0-8.0); Protein,Urine 2+ (Negative); RBC,Urine 92 /hpf (0-5); Specific Gravity,Urine 1.019 (1.001-1.035); Squamous Epithelial Cell,Urine 28 /hpf (0-4); Urobilinogen,Urine <2.0 mg/dL (<2.0); WBC,Urine >182 /hpf (0-5)
[2023-05-24 21:06] LABS: Platelet Count 511 k/uL (150-450)
[2023-05-24 21:14] LABS: ALT 36 U/L (4-34); AST 70 U/L (14-36); African American GFR (CKD) 77 (>60 ml/min/1.73 sqM); Alcohol <10 mg/dL; Alkaline Phosphatase 210 U/L (38-126); Anion Gap 11 mmol/L; Blood Urea Nitrogen 46 mg/dL (7-17); Calcium 8.8 mg/dL (8.4-10.2); Carbon Dioxide 20 mmol/L (22-30); Chloride 107 mmol/L (98-107); Glucose 92 mg/dL (74-99); Lipase 49 U/L (23-300); Magnesium 2.1 mg/dL (1.6-2.3); Non-African American GFR(CKD) 66 (>60 ml/min/1.73 sqM); Phosphorus 4.3 mg/dL (2.5-4.5); Potassium 5.7 mmol/L (3.5-5.1); Sodium 138 mmol/L (137-145); Total Bilirubin 0.3 mg/dL (0.2-1.3); Total Protein 6.5 g/dL (6.3-8.2)
[2023-05-24 21:20] LABS: Band Neutrophils % 1 %; Lymphocytes # (M) 4.38 k/uL (1.0-4.8); Metamyelocytes # (M) 0.15 k/uL (0); Metamyelocytes % 1 %; Monocytes # (M) 1.81 k/uL (0-1.0); Myelocytes # (M) 0.15 k/uL (0); Myelocytes % 1 %; Neutrophils % (M) 56 %; Nucleated Red Blood Cells 3 /100 WBC (0-0); Total Cells Counted 200; WBC 15.1 k/uL (3.8-10.6)
[2023-05-24 21:22] LABS: Anisocytosis (M) Present; Ovalocytes Present; Poikilocytosis (M) Present; Polychromasia Present; Target Cells Present; Tear Drop Cells Present
[2023-05-24] MEDS ORDERED: MORPHINE SULFATE 4 MG/ML SYRINGE IV PRN (21:27)
[2023-05-24] MEDS ORDERED: NALOXONE 0.4 MG/ML 1 ML VIAL IV PRN (21:27)
[2023-05-24] MEDS ORDERED: ONDANSETRON 4 MG/2 ML VIAL IVP PRN (21:27)
[2023-05-24] MEDS: SODIUM CHLORIDE 0.9% 1,000 ML IV SCH (22:35)
[2023-05-25 06:20] LABS: Anisocytosis Slight; Basophils % (A) 0 %; Eosinophils # (A) 0.1 k/uL (0-0.7); Eosinophils % (A) 1 %; HCT 27.8 % (34.0-46.0); HGB 8.4 gm/dL (11.4-16.0); Hypochromasia Marked; Lymphocytes # (A) 3.1 k/uL (1.0-4.8); Lymphocytes % (A) 29 %; MCH 25.5 pg (25.0-35.0); MCHC 30.1 g/dL (31.0-37.0); MCV 84.7 fL (80.0-100.0); Mean Platelet Volume 7.9; Monocytes % (A) 10 %; Neutrophils # (A) 6.1 k/uL (1.3-7.7); Neutrophils % (A) 58 %; Platelet Count 488 k/uL (150-450); Poikilocytosis Slight; RBC 3.28 m/uL (3.80-5.40); WBC 10.4 k/uL (3.8-10.6)
[2023-05-25 06:39] LABS: ALT 36 U/L (4-34); AST 66 U/L (14-36); African American GFR (CKD) >90 (>60 ml/min/1.73 sqM); Albumin 2.7 g/dL (3.5-5.0); Alkaline Phosphatase 155 U/L (38-126); Anion Gap 11 mmol/L; Blood Urea Nitrogen 38 mg/dL (7-17); Calcium 8.5 mg/dL (8.4-10.2); Carbon Dioxide 19 mmol/L (22-30); Chloride 111 mmol/L (98-107); Glucose 75 mg/dL (74-99); Magnesium 1.9 mg/dL (1.6-2.3); Non-African American GFR(CKD) >90 (>60 ml/min/1.73 sqM); Phosphorus 4.1 mg/dL (2.5-4.5); Potassium 5.1 mmol/L (3.5-5.1); Sodium 141 mmol/L (137-145); Total Bilirubin 0.3 mg/dL (0.2-1.3); Total Protein 6.3 g/dL (6.3-8.2)
[2023-05-25] MEDS ORDERED: LOPERAMIDE 2 MG CAP PO PRN (08:40)
[2023-05-25] MEDS ORDERED: ONDANSETRON 4 MG TAB PEG/G-TUBE PRN (08:40)
[2023-05-25] MEDS ORDERED: DAPAGLIFLOZIN PROPANEDIOL 10 MG TABLET PO SCH (09:00)
[2023-05-25] MEDS: APIXABAN 5 MG TAB PEG/G-TUBE SCH ×2 (09:10→23:00)
[2023-05-25] MEDS: SERTRALINE 100 MG TAB PEG/G-TUBE SCH (09:10)
[2023-05-25] MEDS: ASCORBIC ACID 500 MG TAB PEG/G-TUBE SCH (09:10)
[2023-05-25] MEDS: METOPROLOL TARTRATE 25 MG TAB PEG/G-TUBE SCH ×2 (09:10→23:01)
[2023-05-25] MEDS: LOSARTAN 25 MG TAB PEG/G-TUBE SCH (09:10)
[2023-05-25] MEDS: DIVALPROEX SPRINKLE 125 MG CAP.SPRINK PEG/G-TUBE SCH ×2 (09:10→23:00)
[2023-05-25] MEDS: FUROSEMIDE 20 MG TAB PEG/G-TUBE SCH (09:10)
[2023-05-25] MEDS: predniSONE 20 MG TAB PEG/G-TUBE SCH (09:10)
[2023-05-25] MEDS: haloperidoL 5 MG TAB PEG/G-TUBE SCH ×2 (09:11→23:00)
[2023-05-25] MEDS: CHOLESTYRAMINE (WITH SUGAR) 4 GM PACKET PEG/G-TUBE SCH ×2 (09:12→16:42)
[2023-05-25] MEDS: SERTRALINE 25 MG TAB PEG/G-TUBE SCH (09:12)
[2023-05-25] MEDS: SODIUM CHLORIDE 0.9% 1,000 ML IV SCH (09:13)
[2023-05-25] MEDS: LACOSAMIDE 150 MG TABLET PEG/G-TUBE SCH ×2 (09:17→23:05)
[2023-05-25] MEDS: DAPAGLIFLOZIN PROPANEDIOL 10 MG TABLET PEG/G-TUBE SCH (09:37)
--- NOTE | 2023-05-25 11:43 | P.HPIM ---
History of Present Illness H&P Date: 05/25/23 Chief Complaint: Generalized weakness and seizure This is a another admitted for 63-year-old female admitted to the emergency department not much data can be obtained from her, data predominantly obtained from the chart patient somnolent but arousable, patient admitted to hospital with confusion and altered mental status and has been more weaker than usual with decreased responsiveness those symptoms have going on for a few days getting worse over the period time. Patient is on outpatient basis on antidepressant antihypertensive diuretic oral anticoagulant diuretics and anti- seizure medicine, reportedly patient had episodes of seizure as well. On arrival patient was tachycardic with heart rate of 102 hemodynamic status stable, saturations 95% labs were significant were leukocytosis with WBC count of 15.1 hemoglobin and hematocrit is 8.7/28 platelet count of 511, sodium was 140 machine 5.1 BUN/creatinine is 38/0.69 improved from 46/0.91 Anna was within normal limit LFTs slightly elevated with alk phos of 210 AST/80s 70s/36 urine analysis turbid urine with large leukocyte esterase many wbc RBC many bacteria. Patient remained continued on her home medicine in addition has been started on IV Rocephin Review of Systems ROS unobtainable: due to mental status Past Medical History Past Medical History: CVA/TIA, Hyperlipidemia, Hypertension, Osteoarthritis (OA) Additional Past Medical History / Comment(s): ANEMIA, CVA WITH L ARM WEAKNESS AND bilateral LEG WEAKNESS, hx. gout, PANCREATITIS, pseudoseizures, UTI, gallstones, tremors, hx multiple brain aneursyms, pressure injuries to right calf and left heel History of Any Multi-Drug Resistant Organisms: ESBL, MRSA Date of last positivie culture/infection: 02/03/23-MRSA; 03/18/18 ESBL MDRO Source:: Right Lateral Calf- MRSA; Urine-ESBL Past Surgical History: Section, Cholecystectomy, Orthopedic Surgery Additional Past Surgical History / Comment(s): hx aneurysms- COILS AND STENTS TO BRAIN, repair tendons r/t gout BILATERAL FEET; Pain pump inserted on 04/21/22 Past Anesthesia/Blood Transfusion Reactions: No Reported Reaction Additional Past Anesthesia/Blood Transfusion Reaction / Comment(s): PT HAS HAD BLOOD TRANSFUSIONS FOR ANEMIA-NO REACTION. Past Psychological History: Anxiety, Depression, Schizophrenia Smoking Status: Former smoker - Past Family History Sister(s) Family Medical History: Myocardial Infarction ([place]) Father Family Medical History: Cancer Additional Family Medical History / Comment(s): throat, lung, and rectal cancer Mother Family Medical History: Myocardial Infarction ([place]) Additional Family Medical History / Comment(s): stroke Medications and Allergies Home Medications Medication Instructions Recorded Confirmed Type Sertraline [Zoloft] 25 mg PEG/G-TUBE DAILY 07/03/22 05/24/23 History Sertraline [Zoloft] 100 mg PEG/G-TUBE DAILY 07/03/22 05/24/23 History risperiDONE [RisperDAL] 1 mg PEG/G-TUBE HS 07/03/22 05/24/23 History Ascorbic Acid [Vitamin C] 250 mg PEG/G-TUBE DAILY 02/18/23 05/24/23 History Metoprolol Tartrate [Lopressor] 25 mg PEG/G-TUBE BID 02/18/23 05/24/23 History haloperidoL [Haldol] 2.5 mg PEG/G-TUBE Q12H 02/18/23 05/24/23 History Budesonide [Pulmicort] 0.5 mg INHALATION RT-BID 30 Days 02/25/23 05/24/23 Rx #60 ml Ipratropium-Albuterol Nebulize 3 ml INHALATION RT-QID 30 Days 02/25/23 05/24/23 Rx [Duoneb 0.5 mg-3 mg/3 ml Soln] #120 each Apixaban [Eliquis] 5 mg PEG/G-TUBE BID 05/02/23 05/24/23 History Dapagliflozin Propanediol [Farxiga] 10 mg PEG/G-TUBE DAILY 05/02/23 05/24/23 History Divalproex Sprinkle [Depakote 125 mg PEG/G-TUBE BID 05/02/23 05/24/23 History Sprinkle] Furosemide [Lasix] 20 mg PEG/G-TUBE DAILY 05/02/23 05/24/23 History Losartan [Cozaar] 25 mg PEG/G-TUBE DAILY 05/02/23 05/24/23 History Ondansetron [Zofran] 4 mg PEG/G-TUBE Q6H PRN 05/02/23 05/24/23 History predniSONE [Deltasone] 40 mg PEG/G-TUBE DAILY 05/02/23 05/24/23 History Cholestyramine (with Sugar) 4 gm PEG/G-TUBE BID 05/24/23 05/24/23 History [Cholestyramine Packet] Lacosamide [Vimpat] 150 mg PEG/G-TUBE BID 05/24/23 05/24/23 History Loperamide [Imodium] 2 mg PO QID PRN 05/24/23 05/24/23 History Allergies Allergy/AdvReac Type Severity Reaction Status Date / Time hydromorphone [From Dilaudid] Allergy Swelling Verified 05/24/23 21:25 morphine Allergy Swelling Verified 05/24/23 21:25 Physical Exam Vitals: Vital Signs Temp Pulse Pulse Resp BP BP Pulse Ox 05/25/23 07:40 98.0 F 87 19 150/97 96 05/25/23 06:00 98.5 F 85 18 158/87 95 05/25/23 05:00 84 16 154/82 94 L 05/25/23 02:00 77 20 130/91 93 L 05/24/23 23:00 89 18 137/93 93 L 05/24/23 22:33 85 18 137/93 94 L 05/24/23 22:00 89 20 151/105 91 L 05/24/23 21:00 84 10 L 158/96 94 L 05/24/23 20:27 133/89 93 L 05/24/23 20:03 102 H 18 133/89 95 Intake and Output 05/24/23 05/25/23 05/25/23 22:59 06:59 14:59 Intake Total 180 Balance 180 Intake: Oral 180 Other: # Voids 0 Weight 61.235 kg - Constitutional General appearance: average body habitus, disheveled, mild distress - EENT Eyes: EOMI, PERRLA ENT: normal oropharynx Ears: bilateral: normal - Neck Carotids: bilateral: upstroke normal Thyroid: bilateral: normal size - Respiratory Respiratory: bilateral: diminished - Cardiovascular Rhythm: regular Heart sounds: normal: S1, S2 - Gastrointestinal Appears her PEG tube has been broken it has been taped together manually General gastrointestinal: decreased bowel sounds, soft - Integumentary Integumentary: normal turgor - Neurologic Neurologic: CNII-XII intact - Musculoskeletal Musculoskeletal: generalized weakness, strength equal bilaterally Results CBC & Chem 7: 05/25/23 05:47 05/25/23 05:47 Labs: Abnormal Lab Results - Last 24 Hours (Table) 05/24/23 05/24/23 05/24/23 Range/Units 20:20 20:20 20:47 WBC 15.1 H (3.8-10.6) k/uL RBC 3.49 L (3.80-5.40) m/uL Hgb 8.7 L (11.4-16.0) gm/dL Hct 28.7 L (34.0-46.0) % MCH 24.9 L (25.0-35.0) pg MCHC 30.3 L (31.0-37.0) g/dL RDW 18.5 H (11.5-15.5) % Plt Count 511 H D (150-450) k/uL Neutrophils # (Manual) 8.60 H (1.3-7.7) k/uL Monocytes # (Manual) 1.81 H (0-1.0) k/uL Metamyelocytes # (Man) 0.15 H (0) k/uL Myelocytes # (Manual) 0.15 H (0) k/uL Nucleated RBCs 3 H (0-0) /100 WBC Potassium 5.7 H (3.5-5.1) mmol/L Chloride (98-107) mmol/L Carbon Dioxide 20 L (22-30) mmol/L BUN 46 H (7-17) mg/dL AST 70 H (14-36) U/L ALT 36 H (4-34) U/L Alkaline Phosphatase 210 H (38-126) U/L Albumin 3.0 L (3.5-5.0) g/dL Urine Appearance Turbid H (Clear) Urine Protein 2+ H (Negative) Urine Blood Small H (Negative) Ur Leukocyte Esterase Large H (Negative) Urine RBC 92 H (0-5) /hpf Urine WBC >182 H (0-5) /hpf Urine WBC Clumps Many H (None) /hpf Ur Squamous Epith Cells 28 H (0-4) /hpf Urine Bacteria Moderate H (None) /hpf 05/25/23 05/25/23 Range/Units 05:47 05:47 WBC (3.8-10.6) k/uL RBC 3.28 L (3.80-5.40) m/uL Hgb 8.4 L (11.4-16.0) gm/dL Hct 27.8 L (34.0-46.0) % MCH (25.0-35.0) pg MCHC 30.1 L (31.0-37.0) g/dL RDW 18.0 H (11.5-15.5) % Plt Count 488 H (150-450) k/uL Neutrophils # (Manual) (1.3-7.7) k/uL Monocytes # (Manual) (0-1.0) k/uL Metamyelocytes # (Man) (0) k/uL Myelocytes # (Manual) (0) k/uL Nucleated RBCs (0-0) /100 WBC Potassium (3.5-5.1) mmol/L Chloride 111 H (98-107) mmol/L Carbon Dioxide 19 L (22-30) mmol/L BUN 38 H (7-17) mg/dL AST 66 H (14-36) U/L ALT 36 H (4-34) U/L Alkaline Phosphatase 155 H (38-126) U/L Albumin 2.7 L (3.5-5.0) g/dL Urine Appearance (Clear) Urine Protein (Negative) Urine Blood (Negative) Ur Leukocyte Esterase (Negative) Urine RBC (0-5) /hpf Urine WBC (0-5) /hpf Urine WBC Clumps (None) /hpf Ur Squamous Epith Cells (0-4) /hpf Urine Bacteria (None) /hpf Assessment and Plan Assessment: Altered mental status secondary due to Sepsis Sepsis associated urinary tract infection Urinary tract infection Seizure-like activity Broken PEG tube, high risk for aspiration status post PEG tube lately however patient eating by mouth active is being used for medications and nutritional supplemental support History of CVA Heart failure Plan: Continue to monitor patient closely, continue fall precautions, Continue IV Rocephin, infectious disease services are being consulted follow-up urine culture Malfunctioning PEG tube, we'll consult general surgery for replacement Continue Keppra for seizure activity neurology consultation being obtained Time with Patient: Greater than 30
[2023-05-25] MEDS: IPRATROPIUM-ALBUTEROL 3 ML NEB INHALATION SCH ×3 (12:04→21:18)
[2023-05-25] MEDS: BUDESONIDE 0.5 MG/2 ML NEBU INHALATION SCH (21:18)
--- NOTE | 2023-05-25 22:12 | P.CONS ---
History of Present Illness - Reason for Consult Consult date: 05/25/23 - History of Present Illness Patient is a 63-year-old -L[place] female with a past medical history significant for hypertension hyperlipidemia osteoarthritis CVA TIA with recurrent UTIs and pneumonia the patient was brought into the hospital last night for evaluation of weakness mental status changes and apparently patient have seizure prior to arrival patient on presentation to the hospital was confused patient did not have any fever on presentation to the hospital and no fever subsequently patient was not tachycardic hypotensive or hypoxic did have vital of 15.1 with a left shift creatinine 0.91 does have some mildly elevated she did have a positive UA serum alcohol was less than 10 patient has been diagnosed with a UTI started on Rocephin infectious he was consulted for further management of antibiotic therapy patient primarily patient is lethargic though arousable however did not answer any question so most information has been obtained from the chart no vomiting or diarrhea has been reported Past Medical History Past Medical History: CVA/TIA, Hyperlipidemia, Hypertension, Osteoarthritis (OA) Additional Past Medical History / Comment(s): ANEMIA, CVA WITH L ARM WEAKNESS AND bilateral LEG WEAKNESS, hx. gout, PANCREATITIS, pseudoseizures, UTI, gallstones, tremors, hx multiple brain aneursyms, pressure injuries to right calf and left heel History of Any Multi-Drug Resistant Organisms: ESBL, MRSA Year Discovered:: 02/03/23-MRSA; 03/18/18 ESBL MDRO Source:: Right Lateral Calf- MRSA; Urine-ESBL Past Surgical History: Section, Cholecystectomy, Orthopedic Surgery Additional Past Surgical History / Comment(s): hx aneurysms- COILS AND STENTS TO BRAIN, repair tendons r/t gout BILATERAL FEET; Pain pump inserted on 04/21/22 Past Anesthesia/Blood Transfusion Reactions: No Reported Reaction Additional Past Anesthesia/Blood Transfusion Reaction / Comm: PT HAS HAD BLOOD TRANSFUSIONS FOR ANEMIA-NO REACTION. Past Psychological History: Anxiety, Depression, Schizophrenia Smoking Status: Former smoker - Past Family History Sister(s) Family Medical History: Myocardial Infarction ([place]) Father Family Medical History: Cancer Additional Family Medical History / Comment(s): throat, lung, and rectal cancer Mother Family Medical History: Myocardial Infarction ([place]) Additional Family Medical History / Comment(s): stroke Medications and Allergies Home Medications Medication Instructions Recorded Confirmed Type Sertraline [Zoloft] 25 mg PEG/G-TUBE DAILY 07/03/22 05/24/23 History Sertraline [Zoloft] 100 mg PEG/G-TUBE DAILY 07/03/22 05/24/23 History risperiDONE [RisperDAL] 1 mg PEG/G-TUBE HS 07/03/22 05/24/23 History Ascorbic Acid [Vitamin C] 250 mg PEG/G-TUBE DAILY 02/18/23 05/24/23 History Metoprolol Tartrate [Lopressor] 25 mg PEG/G-TUBE BID 02/18/23 05/24/23 History haloperidoL [Haldol] 2.5 mg PEG/G-TUBE Q12H 02/18/23 05/24/23 History Budesonide [Pulmicort] 0.5 mg INHALATION RT-BID 30 Days 02/25/23 05/24/23 Rx #60 ml Ipratropium-Albuterol Nebulize 3 ml INHALATION RT-QID 30 Days 02/25/23 05/24/23 Rx [Duoneb 0.5 mg-3 mg/3 ml Soln] #120 each Apixaban [Eliquis] 5 mg PEG/G-TUBE BID 05/02/23 05/24/23 History Dapagliflozin Propanediol [Farxiga] 10 mg PEG/G-TUBE DAILY 05/02/23 05/24/23 History Divalproex Sprinkle [Depakote 125 mg PEG/G-TUBE BID 05/02/23 05/24/23 History Sprinkle] Furosemide [Lasix] 20 mg PEG/G-TUBE DAILY 05/02/23 05/24/23 History Losartan [Cozaar] 25 mg PEG/G-TUBE DAILY 05/02/23 05/24/23 History Ondansetron [Zofran] 4 mg PEG/G-TUBE Q6H PRN 05/02/23 05/24/23 History predniSONE [Deltasone] 40 mg PEG/G-TUBE DAILY 05/02/23 05/24/23 History Cholestyramine (with Sugar) 4 gm PEG/G-TUBE BID 05/24/23 05/24/23 History [Cholestyramine Packet] Lacosamide [Vimpat] 150 mg PEG/G-TUBE BID 05/24/23 05/24/23 History Loperamide [Imodium] 2 mg PO QID PRN 05/24/23 05/24/23 History Allergies Allergy/AdvReac Type Severity Reaction Status Date / Time hydromorphone [From Dilaudid] Allergy Swelling Verified 05/24/23 21:25 morphine Allergy Swelling Verified 05/24/23 21:25 Physical Exam Vitals: Vital Signs Temp Pulse Pulse Resp BP BP Pulse Ox 05/25/23 07:40 98.0 F 87 19 150/97 96 05/25/23 06:00 98.5 F 85 18 158/87 95 05/25/23 05:00 84 16 154/82 94 L 05/25/23 02:00 77 20 130/91 93 L 05/24/23 23:00 89 18 137/93 93 L 05/24/23 22:33 85 18 137/93 94 L 05/24/23 22:00 89 20 151/105 91 L 05/24/23 21:00 84 10 L 158/96 94 L 05/24/23 20:27 133/89 93 L 05/24/23 20:03 102 H 18 133/89 95 Intake and Output 05/24/23 05/25/23 05/25/23 22:59 06:59 14:59 Intake Total 180 Balance 180 Intake: Oral 180 Other: Voiding Method External Catheter # Voids 0 Weight 61.235 kg Results CBC & Chem 7: 05/25/23 05:47 05/25/23 05:47 Labs: Abnormal Lab Results - Last 24 Hours (Table) 05/24/23 05/24/23 05/24/23 Range/Units 20:20 20:20 20:47 WBC 15.1 H (3.8-10.6) k/uL RBC 3.49 L (3.80-5.40) m/uL Hgb 8.7 L (11.4-16.0) gm/dL Hct 28.7 L (34.0-46.0) % MCH 24.9 L (25.0-35.0) pg MCHC 30.3 L (31.0-37.0) g/dL RDW 18.5 H (11.5-15.5) % Plt Count 511 H D (150-450) k/uL Neutrophils # (Manual) 8.60 H (1.3-7.7) k/uL Monocytes # (Manual) 1.81 H (0-1.0) k/uL Metamyelocytes # (Man) 0.15 H (0) k/uL Myelocytes # (Manual) 0.15 H (0) k/uL Nucleated RBCs 3 H (0-0) /100 WBC Potassium 5.7 H (3.5-5.1) mmol/L Chloride (98-107) mmol/L Carbon Dioxide 20 L (22-30) mmol/L BUN 46 H (7-17) mg/dL AST 70 H (14-36) U/L ALT 36 H (4-34) U/L Alkaline Phosphatase 210 H (38-126) U/L Albumin 3.0 L (3.5-5.0) g/dL Urine Appearance Turbid H (Clear) Urine Protein 2+ H (Negative) Urine Blood Small H (Negative) Ur Leukocyte Esterase Large H (Negative) Urine RBC 92 H (0-5) /hpf Urine WBC >182 H (0-5) /hpf Urine WBC Clumps Many H (None) /hpf Ur Squamous Epith Cells 28 H (0-4) /hpf Urine Bacteria Moderate H (None) /hpf 05/25/23 05/25/23 Range/Units 05:47 05:47 WBC (3.8-10.6) k/uL RBC 3.28 L (3.80-5.40) m/uL Hgb 8.4 L (11.4-16.0) gm/dL Hct 27.8 L (34.0-46.0) % MCH (25.0-35.0) pg MCHC 30.1 L (31.0-37.0) g/dL RDW 18.0 H (11.5-15.5) % Plt Count 488 H (150-450) k/uL Neutrophils # (Manual) (1.3-7.7) k/uL Monocytes # (Manual) (0-1.0) k/uL Metamyelocytes # (Man) (0) k/uL Myelocytes # (Manual) (0) k/uL Nucleated RBCs (0-0) /100 WBC Potassium (3.5-5.1) mmol/L Chloride 111 H (98-107) mmol/L Carbon Dioxide 19 L (22-30) mmol/L BUN 38 H (7-17) mg/dL AST 66 H (14-36) U/L ALT 36 H (4-34) U/L Alkaline Phosphatase 155 H (38-126) U/L Albumin 2.7 L (3.5-5.0) g/dL Urine Appearance (Clear) Urine Protein (Negative) Urine Blood (Negative) Ur Leukocyte Esterase (Negative) Urine RBC (0-5) /hpf Urine WBC (0-5) /hpf Urine WBC Clumps (None) /hpf Ur Squamous Epith Cells (0-4) /hpf Urine Bacteria (None) /hpf Assessment and Plan Plan: 1patient present to hospital with weakness mental status changes likely multifactorial did have a component of UTI as patient has significantly positive UA also elevated white count likely from enteric gram-negative pathogen 2-continuation Rocephin 2 g daily patient white count seems to be trending down with it 3-gentle IV fluid 4-left heel stage III pressure ulcer with some slough tissue will benefit from Medihoney and keeping the area of the pressure We will follow on clinical condition and cultures to further adjust medication if needed Thank you for this consultation we will follow the patient along with you Dictation was produced using [employer] dictation software. please excuse any grammatical, word or spelling errors. Time with Patient: Greater than 30
[2023-05-25] MEDS: risperiDONE 1 MG TAB PEG/G-TUBE SCH (23:01)
[2023-05-26] MEDS: BUDESONIDE 0.5 MG/2 ML NEBU INHALATION SCH ×2 (08:05→20:30)
[2023-05-26] MEDS: IPRATROPIUM-ALBUTEROL 3 ML NEB INHALATION SCH ×4 (08:05→20:30)
[2023-05-26] MEDS: SODIUM CHLORIDE 0.9% 1,000 ML IV SCH ×2 (09:34→17:37)
[2023-05-26] MEDS: ASCORBIC ACID 500 MG TAB PEG/G-TUBE SCH (11:27)
[2023-05-26] MEDS: APIXABAN 5 MG TAB PEG/G-TUBE SCH ×2 (11:27→23:15)
[2023-05-26] MEDS: haloperidoL 5 MG TAB PEG/G-TUBE SCH ×2 (11:28→23:14)
[2023-05-26] MEDS: LOSARTAN 25 MG TAB PEG/G-TUBE SCH (11:29)
[2023-05-26] MEDS: SERTRALINE 25 MG TAB PEG/G-TUBE SCH (11:29)
[2023-05-26] MEDS: FUROSEMIDE 20 MG TAB PEG/G-TUBE SCH (11:29)
[2023-05-26] MEDS: SERTRALINE 100 MG TAB PEG/G-TUBE SCH (11:29)
[2023-05-26] MEDS: DAPAGLIFLOZIN PROPANEDIOL 10 MG TABLET PEG/G-TUBE SCH (11:29)
[2023-05-26] MEDS: CHOLESTYRAMINE (WITH SUGAR) 4 GM PACKET PEG/G-TUBE SCH ×2 (11:30→17:37)
[2023-05-26] MEDS: predniSONE 20 MG TAB PEG/G-TUBE SCH (11:30)
[2023-05-26] MEDS: DIVALPROEX SPRINKLE 125 MG CAP.SPRINK PEG/G-TUBE SCH ×2 (11:30→23:15)
[2023-05-26] MEDS: METOPROLOL TARTRATE 25 MG TAB PEG/G-TUBE SCH ×2 (11:30→23:14)
[2023-05-26] MEDS: LACOSAMIDE 150 MG TABLET PEG/G-TUBE SCH ×2 (11:43→23:14)
--- NOTE | 2023-05-26 15:20 | P.PN ---
Subjective Progress Note Date: 05/26/23 Principal diagnosis: Urinary tract infection Patient is a 63-year-old -[place] female with a past medical history significant for hypertension hyperlipidemia osteoarthritis CVA TIA with recurrent UTIs and pneumonia the patient was brought into the hospital for evaluation of weakness mental status changes , patient did have positive UA concerning for symptomatic in her tract infection. On today's evaluation that is 05/26/2023, the patient remains to be afebrile , the patient is breathing comfortably on room air without need for supplemental oxygen, the patient denies any chest pain and no significant cough or sputum production, patient denies abdominal pain and no nausea/vomiting or diarrhea patient is feeling better White count of 10.4 creatinine 0.69 as of yesterday no CBC was done today Objective - Vital Signs Vital signs: Vital Signs Temp 97.9 F 05/26/23 13:31 Pulse 75 05/26/23 13:31 Resp 16 05/26/23 13:31 BP 138/71 05/26/23 13:31 Pulse Ox 95 05/26/23 13:31 FiO2 Intake & Output 05/25/23 05/26/23 05/26/23 18:59 06:59 18:59 Intake Total 180 Output Total 900 Balance 180 -900 Weight 61.235 kg Intake: Oral 180 Output: Urine 900 Other: Voiding Method External Catheter External Catheter External Catheter # Bowel Movements 2 - Exam GENERAL DESCRIPTION: An elderly female lying in bed in no distress RESPIRATORY SYSTEM: Unlabored breathing , clear to auscultation anteriorly HEART: S1 S2 regular rate and rhythm , ABDOMEN: Soft , no tenderness EXTREMITIES: No edema feet - Labs CBC & Chem 7: 05/25/23 05:47 05/25/23 05:47 Assessment and Plan (1) UTI (urinary tract infection) Current Visit: Yes Status: Acute Code(s): N39.0 - URINARY TRACT INFECTION, SITE NOT SPECIFIED SNOMED Code(s): 05037991 Plan: 1patient present to hospital with weakness mental status changes likely multifactorial did have a component of UTI as patient has significantly positive UA also elevated white count likely from enteric gram-negative pathogen 2Patient to continue with Rocephin 2 g daily while waiting for the cultures to finalize and monitor blood glucose closely 3 heel stage III pressure ulcer with some slough tissue will benefit from Medihoney and keeping the area of the pressure Time with Patient: Less than 30
--- NOTE | 2023-05-26 16:22 | P.CNNES ---
History of Present Illness Consult date: 05/25/23 Requesting physician: Mitch Callahan Reason for Consult: Seizure History of Present Illness: Patient is a 63-year-old female well known to neurology service from previous admissions to the hospital came to the hospital by ambulance yesterday at 7:56 PM for altered mental status. Patient not able to provide any history. Alina cruz's son Mr. Rascon was present, who provided the history. He states that yesterday patient had 3 episodes (in the morning, afternoon and also in the evening at 7 PM), when she started screaming, yelling, sweating and was somewhat not responding as well. He checked her blood pressure was 165/90, her temperature was 101.7 when he checked at home and heart rate 100. The first 2 episodes occurred while she was already awake, but the third episode occurred when she woke up from sleep with screaming, yelling, sweating. He got concerned, therefore brought her to the ER. Patient's son also mentions that about 4 or 5 days ago, the patient was throwing up. No diarrhea. However since she arrived to the hospital and she started antibiotics for UTI, she has started diarrhea since yesterday. Patient also has history of seizure disorder, for which patient follows up with Dr. Olmedo. The last time they were scene was about a month ago. Dr. Olmedo was trying to increase dose of Vimpat, and decrease Depakote, as Dr. Olmedo does not believe Depakote is a good medication. Her dose of Vimpat was increased from 100 up to 150 mg twice a day, and the Depakote was decreased to 125 mg twice a day. Patient was also admitted recently to the hospital in early part of April 2023 and was seen by neurology service. A stroke was suspected, because of weakness of right hand. Patient has left hemiplegia from previous stroke, also has right leg weakness as well, but not as bad as the left. As per EMS flow sheet, when they arrived, it was reported patient was not responding as usual. According to patient's primary caregiver, he heard her cry out and when he got to her, she wasn't responding to him at all. Patient normally has some inability to interact but now she would not even follow stimuli with her eyes. Patient has been confined for sometime due to severe contractions. Patient's vitals at the scene was blood pressure 116/56, pulse rate 86, respiration 18, saturation 94% and blood sugar 165. Blood test shows WBC 15.1, which is now down to 10.4. Hemoglobin 8.7, platelets fire 11. Sodium is normal potassium 5.7, BUN 46 creatinine 0.91. AST 70, ALT 36, UA shows large amount of leukocyte esterase, more than 182 WBCs, many WBC clumps and moderate bacteria. Blood alcohol level less than 10. Patient has been seen by neurology service multiple times in the past, the last time seen on 07/10/2022. Patient has history of seizure disorder, was taking Vimpat 100 mg twice a day and Depakote 500 mg in the morning and 250 mg at night. Patient has history of seizure disorder, came with episode of unresponsiveness in January 2022. 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 Patient apparently is on Vimpat 100 mg twice a day and Vimpat 50 mg twice a day, Eliquis 5 mg twice a day, Depakote 125 mg twice a day, Zoloft 125 mg daily, risperidone 1 mg at bedtime, Haldol 2.5 mg every 12 hours, metoprolol prednisone 40 mg, losartan Lasix Review of Systems As per patient's son report and also patient's concurrence. Constitutional: Reports chills, Reports fever Eyes: right loss of peripheral vision, denies blurred vision Ears: deny: decreased hearing, ear discharge Ears, nose, mouth and throat: Denies headache, Denies sore throat Cardiovascular: Reports shortness of breath, Denies chest pain Respiratory: Reports cough, Denies excessive sputum Gastrointestinal: Reports diarrhea, Reports nausea, Reports vomiting, Denies abdominal pain Genitourinary: Reports urge incontinence, Reports urinary frequency, Denies dysuria Musculoskeletal: Denies low back pain, Denies myalgias, Denies neck pain Integumentary: Reports brittle nails, Reports dryness, Reports rash, Reports wounds, Denies pruritus Neurological: Reports as per HPI Psychiatric: Reports anxiety, Reports depression Past Medical History Past Medical History: CVA/TIA, Hyperlipidemia, Hypertension, Osteoarthritis (OA) Additional Past Medical History / Comment(s): ANEMIA, CVA WITH L ARM WEAKNESS AND bilateral LEG WEAKNESS, hx. gout, PANCREATITIS, pseudoseizures, UTI, gallstones, tremors, hx multiple brain aneursyms, pressure injuries to right calf and left heel History of Any Multi-Drug Resistant Organisms: ESBL, MRSA Date of last positivie culture/infection: 02/03/23-MRSA; 03/18/18 ESBL MDRO Source:: Right Lateral Calf- MRSA; Urine-ESBL Past Surgical History: Section, Cholecystectomy, Orthopedic Surgery Additional Past Surgical History / Comment(s): hx aneurysms- COILS AND STENTS TO BRAIN, repair tendons r/t gout BILATERAL FEET; Pain pump inserted on 04/21/22 Past Anesthesia/Blood Transfusion Reactions: No Reported Reaction Additional Past Anesthesia/Blood Transfusion Reaction / Comment(s): PT HAS HAD BLOOD TRANSFUSIONS FOR ANEMIA-NO REACTION. Past Psychological History: Anxiety, Depression, Schizophrenia Additional Psychological History / Comment(s): paranoid schizophrenia Smoking Status: Former smoker Past Alcohol Use History: Abuse, Heavy Additional Past Alcohol Use History / Comment(s): Stopped smoking 2010 Past Drug Use History: Cocaine Additional Drug Use History / Comment(s): No current use. Last used 20 yrs ago. - Past Family History Sister(s) Family Medical History: Myocardial Infarction (NM) Father Family Medical History: Cancer Additional Family Medical History / Comment(s): throat, lung, and rectal cancer Mother Family Medical History: Myocardial Infarction (NM) Additional Family Medical History / Comment(s): stroke Medications and Allergies Home Medications Medication Instructions Recorded Confirmed Type Sertraline [Zoloft] 25 mg PEG/G-TUBE DAILY 07/03/22 05/24/23 History Sertraline [Zoloft] 100 mg PEG/G-TUBE DAILY 07/03/22 05/24/23 History risperiDONE [RisperDAL] 1 mg PEG/G-TUBE HS 07/03/22 05/24/23 History Ascorbic Acid [Vitamin C] 250 mg PEG/G-TUBE DAILY 02/18/23 05/24/23 History Metoprolol Tartrate [Lopressor] 25 mg PEG/G-TUBE BID 02/18/23 05/24/23 History haloperidoL [Haldol] 2.5 mg PEG/G-TUBE Q12H 02/18/23 05/24/23 History Budesonide [Pulmicort] 0.5 mg INHALATION RT-BID 30 Days 02/25/23 05/24/23 Rx #60 ml Ipratropium-Albuterol Nebulize 3 ml INHALATION RT-QID 30 Days 02/25/23 05/24/23 Rx [Duoneb 0.5 mg-3 mg/3 ml Soln] #120 each Apixaban [Eliquis] 5 mg PEG/G-TUBE BID 05/02/23 05/24/23 History Dapagliflozin Propanediol [Farxiga] 10 mg PEG/G-TUBE DAILY 05/02/23 05/24/23 History Divalproex Sprinkle [Depakote 125 mg PEG/G-TUBE BID 05/02/23 05/24/23 History Sprinkle] Furosemide [Lasix] 20 mg PEG/G-TUBE DAILY 05/02/23 05/24/23 History Losartan [Cozaar] 25 mg PEG/G-TUBE DAILY 05/02/23 05/24/23 History Ondansetron [Zofran] 4 mg PEG/G-TUBE Q6H PRN 05/02/23 05/24/23 History predniSONE [Deltasone] 40 mg PEG/G-TUBE DAILY 05/02/23 05/24/23 History Cholestyramine (with Sugar) 4 gm PEG/G-TUBE BID 05/24/23 05/24/23 History [Cholestyramine Packet] Lacosamide [Vimpat] 150 mg PEG/G-TUBE BID 05/24/23 05/24/23 History Loperamide [Imodium] 2 mg PO QID PRN 05/24/23 05/24/23 History Allergies Allergy/AdvReac Type Severity Reaction Status Date / Time hydromorphone [From Dilaudid] Allergy Swelling Verified 05/24/23 21:25 morphine Allergy Swelling Verified 05/24/23 21:25 Physical Examination - Vital Signs Vital Signs: Vital Signs Temp Pulse Pulse Resp BP BP Pulse Ox 05/25/23 16:22 80 05/25/23 16:11 80 05/25/23 13:44 98.8 F 80 19 116/69 100 05/25/23 12:16 84 18 05/25/23 12:04 88 18 05/25/23 07:40 98.0 F 87 19 150/97 96 05/25/23 06:00 98.5 F 85 18 158/87 95 05/25/23 05:00 84 16 154/82 94 L 05/25/23 02:00 77 20 130/91 93 L 05/24/23 23:00 89 18 137/93 93 L 05/24/23 22:33 85 18 137/93 94 L 05/24/23 22:00 89 20 151/105 91 L 05/24/23 21:00 84 10 L 158/96 94 L 05/24/23 20:27 133/89 93 L Intake and Output 05/25/23 05/25/23 05/25/23 06:59 14:59 22:59 Intake Total 180 Balance 180 Intake: Oral 180 Other: Voiding Method External Catheter # Voids 0 Weight 61.235 kg 61.235 kg Patient is an elderly Afro-[place] female, who appears older than her stated age. Patient is quite alert and awake. Patient's overall examination is much better as compared to the last time I saw patient on 05/03/2023. Patient knows name of her son Abiodun. Speech is mildly dysarthric, but no definitive aphasia. Attention, concentration is slightly slow and fund of knowledge also limited. On cranial nerve examination, pupils are equal, round and reacting to light, visual campoverde could not be tested reliably because of her mental status. Extraocular muscles are intact with no nystagmus. Face is symmetric, tongue protrudes to the midline. Palatal elevation and sensation normal, hearing is slightly decreased and shoulder shrug decreased on the left. Her facial sensation normal. On muscle strength testing, patient is completely spastic hemiplegic on the left side. She can very slightly wiggle her toes of both feet bilaterally. Patient can slightly lift her right leg but not the left. In the right upper limb, her deltoid is 3+, biceps 5, triceps 3+ and litigation paralegal is about 4+. Deep tendon reflexes are 3 in the right upper limb, 2 in the left upper limb, 1 in the lower limbs and plantars are upgoing bilaterally. Sensory to touch was difficult to assess because of patient's noncooperation. Cerebellar functions could not be tested in any extremity because of spasticity and weakness. Tone is increased in all 4 extremities, severely on the left, but moderate to severe on the right as well. Gait patient nonambulatory for last 1 year. On general examination, there is no carotid bruit or murmur, S1-S2 audible. Chest is clear on consultation. Abdomen is soft nontender. No organomegaly, bowel sounds present. patient has multiple bedsores in the lower limbs distally and in the calves. Patient has very dry skin, scaling. Results - Laboratory Findings CBC and BMP: 05/25/23 05:47 05/25/23 05:47 Abnormal Lab Findings: Abnormal Labs 05/24/23 05/24/23 05/24/23 20:20 20:20 20:47 WBC 15.1 H RBC 3.49 L Hgb 8.7 L Hct 28.7 L MCH 24.9 L MCHC 30.3 L RDW 18.5 H Plt Count 511 H D Neutrophils # (Manual) 8.60 H Monocytes # (Manual) 1.81 H Metamyelocytes # (Man) 0.15 H Myelocytes # (Manual) 0.15 H Nucleated RBCs 3 H Potassium 5.7 H Chloride Carbon Dioxide 20 L BUN 46 H AST 70 H ALT 36 H Alkaline Phosphatase 210 H Albumin 3.0 L Urine Appearance Turbid H Urine Protein 2+ H Urine Blood Small H Ur Leukocyte Esterase Large H Urine RBC 92 H Urine WBC >182 H Urine WBC Clumps Many H Ur Squamous Epith Cells 28 H Urine Bacteria Moderate H 05/25/23 05/25/23 05:47 05:47 WBC RBC 3.28 L Hgb 8.4 L Hct 27.8 L MCH MCHC 30.1 L RDW 18.0 H Plt Count 488 H Neutrophils # (Manual) Monocytes # (Manual) Metamyelocytes # (Man) Myelocytes # (Manual) Nucleated RBCs Potassium Chloride 111 H Carbon Dioxide 19 L BUN 38 H AST 66 H ALT 36 H Alkaline Phosphatase 155 H Albumin 2.7 L Urine Appearance Urine Protein Urine Blood Ur Leukocyte Esterase Urine RBC Urine WBC Urine WBC Clumps Ur Squamous Epith Cells Urine Bacteria Assessment and Plan Assessment: * Possible breakthrough seizures likely from acute UTI. 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 * Seizure disorder. * Previous history of pneumonia * Possible UTI * CHF * History of brain aneurysm, status post coiling over the left MCA. * Presence of pain pump. * History of psychiatric disorder (paranoid schizophrenia per patient's son statement) * Anemia * Multiple bedsores involving the lower extremities (right fibular head region and left heel) * Bedbound status * Vascular dementia Plan: * Patient has possible breakthrough seizures likely from acute UTI. We will continue her on same dose of seizure medication including Vimpat 150 mg twice a day and Depakote 125 mg twice a day. * Patient cannot have MRI of the brain because of presence of aneurysm coils, and pain pump. * Carotid Doppler 05/14/2023: Reported as less than 50% stenosis in bilateral carotid bifurcation. Antegrade flow in both vertebral arteries. No need to repeat. * 2-D echo 02/23/2023: It is reported as likely related difficult study with suboptimal acoustic windows. Preserved left ventricle size and systolic function with EF 50-55%. Moderate MR, mild TR and left atrial size normal. * Continue Eliquis 5 mg twice a day. Patient could not tolerate aspirin on the last admission because of developing bleed from the PEG site. * ID on board for acute UTI. * Regarding bedsores, we will defer to IM/ID. * DVT prophylaxis: Patient on Eliquis. * Neurology will follow clinically. Recommend patient follow up with her neurologist in 1-2 weeks after discharge. * Thank you for the consult.
--- NOTE | 2023-05-26 16:58 | P.PN ---
Subjective Progress Note Date: 05/26/23 Principal diagnosis: Altered mental status secondary due to Sepsis Sepsis associated urinary tract infection Urinary tract infection Seizure-like activity Broken PEG tube, high risk for aspiration status post PEG tube lately however patient eating by mouth active is being used for medications and nutritional supplemental support History of CVA Heart failure 05/26/2023, patient seen eval examined during rounds labs reviewed medications reviewed patient is awake and alert, communicative, sinus present bedside no obvious distress present, culture results are not available, patient remains on IV Rocephin continued on home medications, responding appropriately This is a another admitted for 63-year-old female admitted to the emergency department not much data can be obtained from her, data predominantly obtained from the chart patient somnolent but arousable, patient admitted to hospital with confusion and altered mental status and has been more weaker than usual with decreased responsiveness those symptoms have going on for a few days getting worse over the period time. Patient is on outpatient basis on antidepressant antihypertensive diuretic oral anticoagulant diuretics and anti- seizure medicine, reportedly patient had episodes of seizure as well. On arrival patient was tachycardic with heart rate of 102 hemodynamic status stable, saturations 95% labs were significant were leukocytosis with WBC count of 15.1 hemoglobin and hematocrit is 8.7/28 platelet count of 511, sodium was 140 machine 5.1 BUN/creatinine is 38/0.69 improved from 46/0.91 Anna was within normal limit LFTs slightly elevated with alk phos of 210 AST/80s 70s/36 urine analysis turbid urine with large leukocyte esterase many wbc RBC many bacteria. Patient remained continued on her home medicine in addition has been started on IV Rocephin Objective - Vital Signs Vital signs: Vital Signs Temp 97.9 F 05/26/23 13:31 Pulse 76 05/26/23 16:04 Resp 16 05/26/23 13:31 BP 138/71 05/26/23 13:31 Pulse Ox 95 05/26/23 13:31 FiO2 Intake & Output 05/25/23 05/26/23 05/26/23 18:59 06:59 18:59 Intake Total 180 Output Total 900 Balance 180 -900 Weight 61.235 kg Intake: Oral 180 Output: Urine 900 Other: Voiding Method External Catheter External Catheter External Catheter # Bowel Movements 2 - Exam - Constitutional General appearance: average body habitus, disheveled, mild distress - EENT Eyes: EOMI, PERRLA ENT: normal oropharynx Ears: bilateral: normal - Neck Carotids: bilateral: upstroke normal Thyroid: bilateral: normal size - Respiratory Respiratory: bilateral: diminished - Cardiovascular Rhythm: regular Heart sounds: normal: S1, S2 - Gastrointestinal Appears her PEG tube has been broken it has been taped together manually General gastrointestinal: decreased bowel sounds, soft - Integumentary Integumentary: normal turgor - Neurologic Neurologic: CNII-XII intact - Musculoskeletal Musculoskeletal: generalized weakness, strength equal bilaterally - Labs CBC & Chem 7: 05/25/23 05:47 05/25/23 05:47 Assessment and Plan Assessment: Altered mental status secondary due to Sepsis Sepsis associated urinary tract infection Urinary tract infection Seizure-like activity Broken PEG tube, high risk for aspiration status post PEG tube lately however patient eating by mouth active is being used for medications and nutritional supplemental support History of CVA Heart failure Plan: Continue to monitor patient closely, continue fall precautions, Continue IV Rocephin, infectious disease services are being consulted follow-up urine culture Malfunctioning PEG tube, follow-up general surgery for replacement Continue Keppra for seizure activity neurology following Time with Patient: Greater than 30
[2023-05-26] MEDS: risperiDONE 1 MG TAB PEG/G-TUBE SCH (23:15)
[2023-05-27] MEDS: SODIUM CHLORIDE 0.9% 1,000 ML IV SCH ×2 (07:53→21:26)
[2023-05-27] MEDS: haloperidoL 5 MG TAB PEG/G-TUBE SCH ×2 (08:10→21:26)
[2023-05-27] MEDS: FUROSEMIDE 20 MG TAB PEG/G-TUBE SCH (08:10)
[2023-05-27] MEDS: SERTRALINE 100 MG TAB PEG/G-TUBE SCH (08:10)
[2023-05-27] MEDS: DIVALPROEX SPRINKLE 125 MG CAP.SPRINK PEG/G-TUBE SCH ×2 (08:10→21:26)
[2023-05-27] MEDS: METOPROLOL TARTRATE 25 MG TAB PEG/G-TUBE SCH ×2 (08:10→21:26)
[2023-05-27] MEDS: LACOSAMIDE 150 MG TABLET PEG/G-TUBE SCH ×2 (08:10→21:26)
[2023-05-27] MEDS: APIXABAN 5 MG TAB PEG/G-TUBE SCH (08:10)
[2023-05-27] MEDS: DAPAGLIFLOZIN PROPANEDIOL 10 MG TABLET PEG/G-TUBE SCH (08:10)
[2023-05-27] MEDS: SERTRALINE 25 MG TAB PEG/G-TUBE SCH (08:10)
[2023-05-27] MEDS: LOSARTAN 25 MG TAB PEG/G-TUBE SCH (08:10)
[2023-05-27] MEDS: predniSONE 20 MG TAB PEG/G-TUBE SCH (08:11)
[2023-05-27] MEDS: ASCORBIC ACID 500 MG TAB PEG/G-TUBE SCH (08:11)
[2023-05-27] MEDS: IPRATROPIUM-ALBUTEROL 3 ML NEB INHALATION SCH ×4 (09:19→20:47)
[2023-05-27] MEDS: BUDESONIDE 0.5 MG/2 ML NEBU INHALATION SCH ×2 (09:20→20:47)
[2023-05-27] MEDS: CHOLESTYRAMINE (WITH SUGAR) 4 GM PACKET PEG/G-TUBE SCH ×2 (11:09→17:40)
--- NOTE | 2023-05-27 11:20 | P.PN ---
Subjective Progress Note Date: 05/27/23 Principal diagnosis: Altered mental status secondary due to Sepsis Sepsis associated urinary tract infection Urinary tract infection Seizure-like activity Broken PEG tube, high risk for aspiration status post PEG tube lately however patient eating by mouth active is being used for medications and nutritional supplemental support History of CVA Heart failure 05/27/2023, patient seen eval examined during rounds labs reviewed medications reviewed awake and alert, denies any chest pain, patient has had difficulty in tolerating tube feed with high residuals, the every feed port is fractured and taped, review of the records revealed that Dr. Richy diaz put the gastrostomy tube feed in will reconsult him for tube exchange if neededher like activity noted, patient on broad-spectrum antibiotics tolerating well 05/26/2023, patient seen eval examined during rounds labs reviewed medications reviewed patient is awake and alert, communicative, sinus present bedside no obvious distress present, culture results are not available, patient remains on IV Rocephin continued on home medications, responding appropriately This is a another admitted for 63-year-old female admitted to the emergency department not much data can be obtained from her, data predominantly obtained from the chart patient somnolent but arousable, patient admitted to hospital with confusion and altered mental status and has been more weaker than usual with decreased responsiveness those symptoms have going on for a few days getting worse over the period time. Patient is on outpatient basis on a ntidepressant antihypertensive diuretic oral anticoagulant diuretics and anti- seizure medicine, reportedly patient had episodes of seizure as well. On arrival patient was tachycardic with heart rate of 102 hemodynamic status stable, saturations 95% labs were significant were leukocytosis with WBC count of 15.1 hemoglobin and hematocrit is 8.7/28 platelet count of 511, sodium was 140 machine 5.1 BUN/creatinine is 38/0.69 improved from 46/0.91 Anna was within normal limit LFTs slightly elevated with alk phos of 210 AST/80s 70s/36 urine analysis turbid urine with large leukocyte esterase many wbc RBC many bacteria. Patient remained continued on her home medicine in addition has been started on IV Rocephin Objective - Vital Signs Vital signs: Vital Signs Temp 98.5 F 05/27/23 07:10 Pulse 80 05/27/23 09:31 Resp 19 05/27/23 07:10 BP 154/91 05/27/23 07:10 Pulse Ox 98 05/27/23 07:10 FiO2 Intake & Output 05/26/23 05/27/23 05/27/23 18:59 06:59 18:59 Output Total 375 600 Balance -375 -600 Weight 60.5 kg Output: Urine 375 600 Other: Voiding Method External Catheter External Catheter External Catheter - Exam - Constitutional General appearance: average body habitus, disheveled, mild distress - EENT Eyes: EOMI, PERRLA ENT: normal oropharynx Ears: bilateral: normal - Neck Carotids: bilateral: upstroke normal Thyroid: bilateral: normal size - Respiratory Respiratory: bilateral: diminished - Cardiovascular Rhythm: regular Heart sounds: normal: S1, S2 - Gastrointestinal Appears her PEG tube has been broken it has been taped together manually General gastrointestinal: decreased bowel sounds, soft - Integumentary Integumentary: normal turgor - Neurologic Neurologic: CNII-XII intact - Musculoskeletal Musculoskeletal: generalized weakness, strength equal bilaterally - Labs CBC & Chem 7: 05/25/23 05:47 05/25/23 05:47 Assessment and Plan Assessment: Altered mental status secondary due to Sepsis and post ictal state Sepsis associated urinary tract infection Urinary tract infection Seizure-like activity and post ictal state Broken PEG tube, high risk for aspiration status post PEG tube lately however patient eating by mouth active is being used for medications and nutritional supplemental support History of CVA Heart failure Plan: Mental status continued to improve Continue to monitor patient closely, continue fall precautions, Continue IV Rocephin, infectious disease services are being consulted follow-up urine culture Malfunctioning PEG tube, follow-up general surgery for replacement Continue Keppra for seizure activity neurology following Time with Patient: Greater than 30
--- NOTE | 2023-05-27 12:01 | P.PN ---
Subjective Progress Note Date: 05/26/23 Patient was seen for a follow-up. Patient is laying comfortably in the bed. Offers no complaints. No seizures or syncope. No TIA-like symptoms. Objective - Vital Signs Vital signs: Vital Signs Temp 98.5 F 05/27/23 07:10 Pulse 80 05/27/23 09:31 Resp 19 05/27/23 07:10 BP 154/91 05/27/23 07:10 Pulse Ox 98 05/27/23 07:10 FiO2 Intake & Output 05/26/23 05/27/23 05/27/23 18:59 06:59 18:59 Output Total 375 600 Balance -375 -600 Weight 60.5 kg Output: Urine 375 600 Other: Voiding Method External Catheter External Catheter External Catheter - Exam Patient is alert and awake. Examination completely unchanged. - Labs CBC & Chem 7: 05/25/23 05:47 05/25/23 05:47 Assessment and Plan Assessment: * Possible breakthrough seizures likely from acute UTI. 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 * Seizure disorder. * Previous history of pneumonia * Possible UTI * CHF * History of brain aneurysm, status post coiling over the left MCA. * Presence of pain pump. * History of psychiatric disorder (paranoid schizophrenia per patient's son statement) * Anemia * Multiple bedsores involving the lower extremities (right fibular head region and left heel) * Bedbound status * Vascular dementia Plan: * Patient has possible breakthrough seizures likely from acute UTI. We will continue her on same dose of seizure medication including Vimpat 150 mg twice a day and Depakote 125 mg twice a day. * Patient cannot have MRI of the brain because of presence of aneurysm coils, and pain pump. * Carotid Doppler 05/14/2023: Reported as less than 50% stenosis in bilateral carotid bifurcation. Antegrade flow in both vertebral arteries. No need to repeat. * 2-D echo 02/23/2023: It is reported as likely related difficult study with suboptimal acoustic windows. Preserved left ventricle size and systolic function with EF 50-55%. Moderate MR, mild TR and left atrial size normal. * Continue Eliquis 5 mg twice a day. Patient could not tolerate aspirin on the last admission because of developing bleed from the PEG site. * ID on board for acute UTI. * Regarding bedsores, we will defer to IM/ID. * DVT prophylaxis: Patient on Eliquis. * Neurologically clear. Recommend patient follow up with her neurologist in 1-2 weeks after discharge.
--- NOTE | 2023-05-27 12:38 | P.PN ---
Subjective Progress Note Date: 05/27/23 Principal diagnosis: Urinary tract infection Patient is a 63-year-old -[place] female with a past medical history significant for hypertension hyperlipidemia osteoarthritis CVA TIA with recurrent UTIs and pneumonia the patient was brought into the hospital for evaluation of weakness mental status changes , patient did have positive UA concerning for symptomatic in her tract infection. On today's evaluation that is 05/27/2023, the patient continues to be afebrile , the patient is breathing comfortably on room air and denies any shortness of breath, the patient denies any chest pain and no cough or sputum production, patient denies abdominal pain and no nausea/vomiting or diarrhea , feeling better no new symptoms White count of 10.4 creatinine 0.69 as of 05/25/2023 no CBC was done today and no urine culture Objective - Vital Signs Vital signs: Vital Signs Temp 98.5 F 05/27/23 07:10 Pulse 80 05/27/23 09:31 Resp 19 05/27/23 07:10 BP 154/91 05/27/23 07:10 Pulse Ox 98 05/27/23 07:10 FiO2 Intake & Output 05/26/23 05/27/23 05/27/23 18:59 06:59 18:59 Output Total 375 600 Balance -375 -600 Weight 60.5 kg Output: Urine 375 600 Other: Voiding Method External Catheter External Catheter External Catheter - Exam GENERAL DESCRIPTION: An elderly female lying in bed in no distress RESPIRATORY SYSTEM: Unlabored breathing , clear to auscultation anteriorly HEART: S1 S2 regular rate and rhythm , ABDOMEN: Soft , no tenderness EXTREMITIES: No edema feet - Labs CBC & Chem 7: 05/25/23 05:47 05/25/23 05:47 Assessment and Plan (1) UTI (urinary tract infection) Current Visit: Yes Status: Acute Code(s): N39.0 - URINARY TRACT INFECTION, SITE NOT SPECIFIED SNOMED Code(s): 79375877 Plan: 1patient present to hospital with weakness mental status changes likely multifactorial did have a component of UTI as patient has significantly positive UA also elevated white count likely from enteric gram-negative pathogen 2Patient has shown clinical improvement and will continue with Rocephin 2 g daily , will repeat UA and cultures as unfortunately no cultures were done on admission 3 heel stage III pressure ulcer with some slough tissue will benefit from Medihoney and keeping the area of the pressure
--- NOTE | 2023-05-27 12:54 | P.GSCN ---
History of Present Illness Consult date: 05/27/23 History of present illness: CHIEF COMPLAINT: Altered mental status HISTORY OF PRESENT ILLNESS: This is a 63-year-old female who presented with altered mental status was found have evidence of a UTI. Surgical service has been consulted for broken PEG tube. Patient is currently been receiving bolus feedings through the PEG tube. Patient had PEG tube placed in September 2022. Patient has history of stroke and is bedbound at baseline. Patient is on Eliquis. Last dose was this morning. PAST MEDICAL HISTORY: See below PAST SURGICAL HISTORY: See below MEDICATIONS: See below ALLERGIES: See below SOCIAL HISTORY: No illicit drug use. REVIEW OF SYSTEMS: CONSTITUTIONAL: Denies fever or chills. HEENT: Denies blurred vision, vision changes, or eye pain. Denies hemoptysis CARDIOVASCULAR: Denies chest pain or pressure. RESPIRATORY: No shortness of breath. GASTROINTESTINAL: See HPI for pertinent findings HEMATOLOGIC: Denies bleeding disorders. GENITOURINARY: Denies any blood in urine or increased urinary frequency. SKIN: Denies pruitis. Denies rash. PHYSICAL EXAM: VITAL SIGNS: Reviewed GENERAL: Well-developed in no acute distress. ABDOMEN: Soft. Nondistended. Peg tube end wrapped with tape NEUROLOGIC: awake and alert LABORATORY DATA: WBC 15.1 down to 10.4 Hgb 8.4 platelets 488 Sodium 141 potassium 5.1 creatinine 0.69 IMAGING: ASSESSMENT: 1. Peg tube end is broken PLAN: -Patient scheduled for EGD and replacement of PEG tube tomorrow, 05/28/[address] argueta -Hold Kike for procedure -Hold tube feedings after midnight Physician Air Technician note has been reviewed by physician. Signing provider agrees with the documented findings, assessment, and plan of care. 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 gout, PANCREATITIS, pseudoseizures, UTI, gallstones, tremors, hx multiple brain aneursyms, pressure injuries to right calf and left heel History of Any Multi-Drug Resistant Organisms: ESBL, MRSA Year Discovered:: 02/03/23-MRSA; 03/18/18 ESBL MDRO Source:: Right Lateral Calf- MRSA; Urine-ESBL Past Surgical History: Section, Cholecystectomy, Orthopedic Surgery Additional Past Surgical History / Comment(s): hx aneurysms- COILS AND STENTS TO BRAIN, repair tendons r/t gout BILATERAL FEET; Pain pump inserted on 04/21/22 Past Anesthesia/Blood Transfusion Reactions: No Reported Reaction Additional Past Anesthesia/Blood Transfusion Reaction / Comm: PT HAS HAD BLOOD TRANSFUSIONS FOR ANEMIA-NO REACTION. Past Psychological History: Anxiety, Depression, Schizophrenia Additional Psychological History / Comment(s): paranoid schizophrenia Smoking Status: Former smoker Past Alcohol Use History: Abuse, Heavy Additional Past Alcohol Use History / Comment(s): Stopped smoking 2010 Past Drug Use History: Cocaine Additional Drug Use History / Comment(s): No current use. Last used 20 yrs ago. - Past Family History Sister(s) Family Medical History: Myocardial Infarction ([place]) Father Family Medical History: Cancer Additional Family Medical History / Comment(s): throat, lung, and rectal cancer Mother Family Medical History: Myocardial Infarction ([place]) Additional Family Medical History / Comment(s): stroke Medications and Allergies Home Medications Medication Instructions Recorded Confirmed Type Sertraline [Zoloft] 25 mg PEG/G-TUBE DAILY 07/03/22 05/24/23 History Sertraline [Zoloft] 100 mg PEG/G-TUBE DAILY 07/03/22 05/24/23 History risperiDONE [RisperDAL] 1 mg PEG/G-TUBE HS 07/03/22 05/24/23 History Ascorbic Acid [Vitamin C] 250 mg PEG/G-TUBE DAILY 02/18/23 05/24/23 History Metoprolol Tartrate [Lopressor] 25 mg PEG/G-TUBE BID 02/18/23 05/24/23 History haloperidoL [Haldol] 2.5 mg PEG/G-TUBE Q12H 02/18/23 05/24/23 History Budesonide [Pulmicort] 0.5 mg INHALATION RT-BID 30 Days 02/25/23 05/24/23 Rx #60 ml Ipratropium-Albuterol Nebulize 3 ml INHALATION RT-QID 30 Days 02/25/23 05/24/23 Rx [Duoneb 0.5 mg-3 mg/3 ml Soln] #120 each Apixaban [Eliquis] 5 mg PEG/G-TUBE BID 05/02/23 05/24/23 History Dapagliflozin Propanediol [Farxiga] 10 mg PEG/G-TUBE DAILY 05/02/23 05/24/23 History Divalproex Sprinkle [Depakote 125 mg PEG/G-TUBE BID 05/02/23 05/24/23 History Sprinkle] Furosemide [Lasix] 20 mg PEG/G-TUBE DAILY 05/02/23 05/24/23 History Losartan [Cozaar] 25 mg PEG/G-TUBE DAILY 05/02/23 05/24/23 History Ondansetron [Zofran] 4 mg PEG/G-TUBE Q6H PRN 05/02/23 05/24/23 History predniSONE [Deltasone] 40 mg PEG/G-TUBE DAILY 05/02/23 05/24/23 History Cholestyramine (with Sugar) 4 gm PEG/G-TUBE BID 05/24/23 05/24/23 History [Cholestyramine Packet] Lacosamide [Vimpat] 150 mg PEG/G-TUBE BID 05/24/23 05/24/23 History Loperamide [Imodium] 2 mg PO QID PRN 05/24/23 05/24/23 History Allergies Allergy/AdvReac Type Severity Reaction Status Date / Time hydromorphone [From Dilaudid] Allergy Swelling Verified 05/24/23 21:25 morphine Allergy Swelling Verified 05/24/23 21:25 Surgical - Exam Vital Signs Pulse Resp BP Pulse Ox 102 H 18 133/89 95 05/24/23 20:03 05/24/23 20:03 05/24/23 20:03 05/24/23 20:03 Results - Labs 05/25/23 05:47 05/25/23 05:47
[2023-05-27] MEDS: risperiDONE 1 MG TAB PEG/G-TUBE SCH (21:26)
[2023-05-27 22:03] LABS: Appearance,Urine Cloudy (Clear); Bacteria,Urine Few /hpf; Bilirubin,Urine Negative (Negative); Blood,Urine Negative (Negative); Budding Yeast,Urine Moderate /hpf; Color,Urine Light Yellow; Glucose,Urine (UA) 3+ (Negative); Hyaline Casts,Urine 1 /lpf (0-2); Ketones,Urine Negative (Negative); Leukocyte Esterase,Urine Moderate (Negative); Nitrite,Urine Negative (Negative); Protein,Urine Negative (Negative); RBC,Urine 5 /hpf (0-5); Specific Gravity,Urine 1.015 (1.001-1.035); Squamous Epithelial Cell,Urine <1 /hpf (0-4); Urobilinogen,Urine <2.0 mg/dL (<2.0); WBC,Urine 6 /hpf (0-5)
[2023-05-28] MEDS: SODIUM CHLORIDE 0.9% 1,000 ML IV SCH ×2 (05:26→22:39)
[2023-05-28] MEDS: IPRATROPIUM-ALBUTEROL 3 ML NEB INHALATION SCH ×4 (08:07→20:17)
[2023-05-28] MEDS: BUDESONIDE 0.5 MG/2 ML NEBU INHALATION SCH ×2 (08:07→20:16)
[2023-05-28] MEDS: LACOSAMIDE 150 MG TABLET PEG/G-TUBE SCH ×2 (08:36→22:23)
[2023-05-28] MEDS: LOSARTAN 25 MG TAB PEG/G-TUBE SCH (08:36)
[2023-05-28] MEDS: SERTRALINE 100 MG TAB PEG/G-TUBE SCH (08:36)
[2023-05-28] MEDS: DAPAGLIFLOZIN PROPANEDIOL 10 MG TABLET PEG/G-TUBE SCH (08:36)
[2023-05-28] MEDS: predniSONE 20 MG TAB PEG/G-TUBE SCH (08:37)
[2023-05-28] MEDS: haloperidoL 5 MG TAB PEG/G-TUBE SCH ×2 (08:37→22:23)
[2023-05-28] MEDS: SERTRALINE 25 MG TAB PEG/G-TUBE SCH (08:37)
[2023-05-28] MEDS: ASCORBIC ACID 500 MG TAB PEG/G-TUBE SCH (08:37)
[2023-05-28] MEDS: DIVALPROEX SPRINKLE 125 MG CAP.SPRINK PEG/G-TUBE SCH ×2 (08:37→22:23)
[2023-05-28] MEDS: FUROSEMIDE 20 MG TAB PEG/G-TUBE SCH (08:37)
[2023-05-28] MEDS: METOPROLOL TARTRATE 25 MG TAB PEG/G-TUBE SCH ×2 (08:37→22:23)
[2023-05-28] MEDS: CHOLESTYRAMINE (WITH SUGAR) 4 GM PACKET PEG/G-TUBE SCH ×2 (08:38→17:40)
[2023-05-28] MEDS ORDERED: IV FLUID CONTINUATION 900 ML IV ONE (10:38)
[2023-05-28] MEDS ORDERED: PROPOFOL 10 MG/ML 20 ML VIAL IV ONE (10:45)
[2023-05-28] MEDS ORDERED: LIDOCAINE 1% INJ 10MG/ML (20 ML MDV) ONE (10:45)
--- NOTE | 2023-05-28 11:34 | P.OP ---
Date of Procedure: 05/28/23 Preoperative Diagnosis: Protein calorie malnutrition PEG tube malfunction Postoperative Diagnosis: Same Procedure(s) Performed: EGD with PEG tube placement Anesthesia: MAC Surgeon: Dyllan Herrera Condition: stable Disposition: PACU Description of Procedure: The patient's placed on the endoscopy table in the lateral position. She received IV sedation. The gastroscope was oropharynx passed into the esophagus and stomach. Scope was then placed through the pylorus. First portion duodenum appeared normal. Scope summer back the antrum and this was normal. Scope was then brought back and the body stomach. In the old PEG tube was visualized. The PEG tube was withdrawn. And then a new 18-[place]oz[place] PEG tube was placed throu gh the PEG tube tract. The PEG tube was visualized entering the stomach. The balloon was inflated. The gastroscope was then withdrawn. Patient tolerated the procedure well.
--- NOTE | 2023-05-28 11:40 | P.PN ---
Subjective Progress Note Date: 05/28/23 Patient seen and examined at 9:30 this morning CHIEF COMPLAINT: PEG tube malfunction HISTORY OF PRESENT ILLNESS: Patient scheduled for EGD with PEG tube placement today. PEG tube is broken. Tube feeds held after midnight. Vitals stable PHYSICAL EXAM: VITAL SIGNS: Reviewed. GENERAL: Well-developed in no acute distress. ABDOMEN: Soft. Nondistended. Nontender. peg tubing broken ASSESSMENT: 1. Malfunctioning PEG tube PLAN: -Patient scheduled for EGD and replacement of PEG tube today -keep tube feeds on hold -Hold Kike Physician Tire Recapping Machine Operator note has been reviewed by physician. Signing provider agrees with the documented findings, assessment, and plan of care. Objective - Vital Signs Vital signs: Vital Signs Temp 98.7 F 05/28/23 07:04 Pulse 87 05/28/23 08:15 Resp 18 05/28/23 07:20 BP 147/74 05/28/23 07:04 Pulse Ox 98 05/28/23 07:04 FiO2 Intake & Output 05/27/23 05/28/23 05/28/23 18:59 06:59 18:59 Intake Total 0 100 Output Total 400 Balance -400 0 100 Weight 62.5 kg Intake: IV 100 Tube Feeding 0 0 Output: Urine 400 Other: Voiding Method External Catheter External Catheter External Catheter # Bowel Movements 1 - Labs CBC & Chem 7: 05/25/23 05:47 05/25/23 05:47 Labs: Abnormal Lab Results - Last 24 Hours (Table) 05/27/23 Range/Units 18:55 Urine Appearance Cloudy H (Clear) Urine Glucose (UA) 3+ H (Negative) Ur Leukocyte Esterase Moderate H (Negative) Urine WBC 6 H (0-5) /hpf Urine Bacteria Few H (None) /hpf Urine Yeast (Budding) Moderate H (None) /hpf
--- NOTE | 2023-05-28 11:52 | P.PN ---
Subjective Progress Note Date: 05/27/23 Patient was seen for a follow-up. Patient is laying comfortably in the bed. Offers no complaints. No seizures or syncope. No TIA-like symptoms. Patient's son was present, who concurs that patient is stable neurologically. Objective - Vital Signs Vital signs: Vital Signs Temp 98.1 F 05/27/23 14:27 Pulse 88 05/27/23 16:18 Resp 18 05/27/23 14:27 BP 149/80 05/27/23 14:27 Pulse Ox 97 05/27/23 14:27 FiO2 Intake & Output 05/26/23 05/27/23 05/27/23 18:59 06:59 18:59 Output Total 375 600 Balance -375 -600 Weight 60.5 kg Output: Urine 375 600 Other: Voiding Method External Catheter External Catheter External Catheter - Exam Patient is alert and awake. Examination completely unchanged. - Labs CBC & Chem 7: 05/25/23 05:47 05/25/23 05:47 Assessment and Plan Assessment: * Possible breakthrough seizures likely from acute UTI. 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 * Seizure disorder. * Previous history of pneumonia * Possible UTI * CHF * History of brain aneurysm, status post coiling over the left MCA. * Presence of pain pump. * History of psychiatric disorder (paranoid schizophrenia per patient's son statement) * Anemia * Multiple bedsores involving the lower extremities (right fibular head region and left heel) * Bedbound status * Vascular dementia Plan: * Patient has possible breakthrough seizures likely from acute UTI. We will continue her on same dose of seizure medication including Vimpat 150 mg twice a day and Depakote 125 mg twice a day. * Patient cannot have MRI of the brain because of presence of aneurysm coils, and pain pump. * Carotid Doppler 05/14/2023: Reported as less than 50% stenosis in bilateral carotid bifurcation. Antegrade flow in both vertebral arteries. No need to repeat. * 2-D echo 02/23/2023: It is reported as likely related difficult study with suboptimal acoustic windows. Preserved left ventricle size and systolic function with EF 50-55%. Moderate MR, mild TR and left atrial size normal. * Continue Eliquis 5 mg twice a day. Patient could not tolerate aspirin on the last admission because of developing bleed from the PEG site. * Patient is undergoing revision of the PEG tube in the morning. * ID on board for acute UTI. * Regarding bedsores, we will defer to IM/ID. * DVT prophylaxis: Patient on Eliquis. * Neurologically clear. Recommend patient follow up with her neurologist in 1-2 weeks after discharge.
--- NOTE | 2023-05-28 14:49 | P.PN ---
Subjective Progress Note Date: 05/28/23 Principal diagnosis: Urinary tract infection Patient is a 63-year-old -[place] female with a past medical history significant for hypertension hyperlipidemia osteoarthritis CVA TIA with recurrent UTIs and pneumonia the patient was brought into the hospital for evaluation of weakness mental status changes , patient did have positive UA concerning for symptomatic in her tract infection. Patient is status post PEG tube replacement on 06/15/2023 On today's evaluation that is 05/28/2023, the patient denies any fever or any chills , the patient is breathing comfortably on room air and no need for supplemental oxygen, the patient denies any chest pain or cough and no sputum production, patient denies abdominal pain and no nausea/vomiting or diarrhea , patient mentioned feeling better. White count of 10.4 creatinine 0.69 as of 05/25/2023 no CBC was done today , rep eat UA done on 05/27/2023 shows overall improvement Objective - Vital Signs Vital signs: Vital Signs Temp 98.7 F 05/28/23 07:04 Pulse 87 05/28/23 11:59 Resp 18 05/28/23 07:20 BP 147/74 05/28/23 07:04 Pulse Ox 98 05/28/23 07:04 FiO2 Intake & Output 05/27/23 05/28/23 05/28/23 18:59 06:59 18:59 Intake Total 0 100 Output Total 400 Balance -400 0 100 Weight 62.5 kg Intake: IV 100 Tube Feeding 0 0 Output: Urine 400 Other: Voiding Method External Catheter External Catheter External Catheter # Bowel Movements 1 - Exam GENERAL DESCRIPTION: An elderly female lying in bed in no distress RESPIRATORY SYSTEM: Unlabored breathing , clear to auscultation anteriorly HEART: S1 S2 regular rate and rhythm , ABDOMEN: Soft , no tenderness EXTREMITIES: No edema feet - Labs CBC & Chem 7: 05/25/23 05:47 05/25/23 05:47 Labs: Abnormal Lab Results - Last 24 Hours (Table) 05/27/23 Range/Units 18:55 Urine Appearance Cloudy H (Clear) Urine Glucose (UA) 3+ H (Negative) Ur Leukocyte Esterase Moderate H (Negative) Urine WBC 6 H (0-5) /hpf Urine Bacteria Few H (None) /hpf Urine Yeast (Budding) Moderate H (None) /hpf Assessment and Plan (1) UTI (urinary tract infection) Current Visit: Yes Status: Acute Code(s): N39.0 - URINARY TRACT INFECTION, SITE NOT SPECIFIED SNOMED Code(s): 38728662 Plan: 1patient present to hospital with weakness mental status changes likely multifactorial did have a component of UTI as patient has significantly positive UA also elevated white count likely from enteric gram-negative pathogen 2Patient has shown clinical improvement and repeat UA has shown improvement will continue with Rocephin 2 g daily and give a short course of oral Ceftin on discharge 3 heel stage III pressure ulcer with some slough tissue will benefit from Medihoney and keeping the area of the pressure Time with Patient: Less than 30
[2023-05-28] MEDS: risperiDONE 1 MG TAB PEG/G-TUBE SCH (22:24)
[2023-05-29 08:11] LABS: Potassium 4.5 mmol/L (3.5-5.1)
[2023-05-29 08:12] LABS: African American GFR (CKD) >90 (>60 ml/min/1.73 sqM); Anion Gap 11 mmol/L; Blood Urea Nitrogen 19 mg/dL (7-17); Calcium 8.9 mg/dL (8.4-10.2); Carbon Dioxide 13 mmol/L (22-30); Chloride 118 mmol/L (98-107); Glucose 52 mg/dL (74-99); Non-African American GFR(CKD) >90 (>60 ml/min/1.73 sqM); Sodium 142 mmol/L (137-145)
[2023-05-29] MEDS: BUDESONIDE 0.5 MG/2 ML NEBU INHALATION SCH ×2 (08:21→20:32)
[2023-05-29] MEDS: IPRATROPIUM-ALBUTEROL 3 ML NEB INHALATION SCH ×4 (08:21→20:32)
[2023-05-29] MEDS: DAPAGLIFLOZIN PROPANEDIOL 10 MG TABLET PEG/G-TUBE SCH (09:30)
[2023-05-29] MEDS: SODIUM CHLORIDE 0.9% 1,000 ML IV SCH (09:30)
[2023-05-29] MEDS: DIVALPROEX SPRINKLE 125 MG CAP.SPRINK PEG/G-TUBE SCH (09:30)
[2023-05-29] MEDS: haloperidoL 5 MG TAB PEG/G-TUBE SCH ×2 (09:30→23:46)
[2023-05-29] MEDS: CHOLESTYRAMINE (WITH SUGAR) 4 GM PACKET PEG/G-TUBE SCH ×2 (09:31→16:50)
[2023-05-29] MEDS: SERTRALINE 25 MG TAB PEG/G-TUBE SCH (09:31)
[2023-05-29] MEDS: ASCORBIC ACID 500 MG TAB PEG/G-TUBE SCH (09:34)
[2023-05-29] MEDS: FUROSEMIDE 20 MG TAB PEG/G-TUBE SCH (09:34)
[2023-05-29] MEDS: predniSONE 20 MG TAB PEG/G-TUBE SCH (09:34)
[2023-05-29] MEDS: LOSARTAN 25 MG TAB PEG/G-TUBE SCH (09:34)
[2023-05-29] MEDS: SERTRALINE 100 MG TAB PEG/G-TUBE SCH (09:34)
[2023-05-29] MEDS: METOPROLOL TARTRATE 25 MG TAB PEG/G-TUBE SCH ×2 (09:34→23:46)
[2023-05-29] MEDS: LACOSAMIDE 150 MG TABLET PEG/G-TUBE SCH ×2 (09:38→23:46)
[2023-05-29 09:43] LABS: Glucose,Whole Blood 61 mg/dL (70-110)
[2023-05-29] MEDS ORDERED: DEXTROSE 50% SYRINGE 50 ML IVP ONE (09:46)
[2023-05-29] MEDS ORDERED: DEXTROSE 50% SYRINGE 50 ML IVP STA (09:52)
[2023-05-29 10:05] LABS: Glucose,Whole Blood 240 mg/dL (70-110)
--- NOTE | 2023-05-29 10:52 | P.PN ---
Subjective Progress Note Date: 05/29/23 CHIEF COMPLAINT: PEG tube malfunction HISTORY OF PRESENT ILLNESS: Patient admitted to the hospital UTI and altered mental status. Surgical service following regards to broken PEG tube. Patient status post EGD with replacement of PEG tube. Patient is lying in bed comfortably. No pain reported. Afebrile. PHYSICAL EXAM: VITAL SIGNS: Reviewed. GENERAL: Well-developed in no acute distress. ABDOMEN: Soft. Nondistended. Nontender. PEG tube site clean dry and intact ASSESSMENT: 1. Malfunctioning PEG tube status post EGD with PEG tube replacement PLAN: -Consult dietitian to start tube feeds -Okay to resume Eliquis tomorrow morning Physician Ferris Wheel Operator note has been reviewed by physician. Signing provider agrees with the documented findings, assessment, and plan of care. Objective - Vital Signs Vital signs: Vital Signs Temp 98.2 F 05/29/23 07:03 Pulse 90 05/29/23 08:37 Resp 17 05/29/23 07:03 BP 165/90 05/29/23 07:03 Pulse Ox 98 05/29/23 07:03 FiO2 Intake & Output 05/28/23 05/29/23 05/29/23 18:59 06:59 18:59 Intake Total 100 35 Output Total 300 Balance -200 35 Weight 62 kg Intake: IV 100 Tube Feeding 0 35 Output: Urine 300 Other: Voiding Method External Catheter External Catheter # Bowel Movements 2 - Labs CBC & Chem 7: 05/25/23 05:47 05/29/23 07:29 Labs: Abnormal Lab Results - Last 24 Hours (Table) 05/29/23 05/29/23 05/29/23 Range/Units 07:29 09:42 10:03 Chloride 118 H (98-107) mmol/L Carbon Dioxide 13 L (22-30) mmol/L BUN 19 H (7-17) mg/dL Glucose 52 L (74-99) mg/dL POC Glucose (mg/dL) 61 L 240 H (70-110) mg/dL
[2023-05-29 11:08] LABS: HCT 26.5 % (37.2-46.3); MCH 25.5 pg (27.0-32.0); MCHC 30.2 d/dL (32.0-37.0); MCV 84.4 FL (80.0-97.0); Mean Platelet Volume 10.4 FL (9.5-12.2); NRBC Per 100 WBC 0.19 X 10*3/uL (0.00-0.01); Platelet Count 519 X 10*3/uL (140-440); RBC 3.14 X 10*6/uL (4.10-5.20); RDW 19.1 % (11.5-14.5); WBC 11.73 X 10*3/uL (4.50-10.00)
[2023-05-29 11:31] LABS: Glucose,Whole Blood 89 mg/dL (70-110)
[2023-05-29 16:42] LABS: Glucose,Whole Blood 177 mg/dL (70-110)
--- NOTE | 2023-05-29 20:35 | P.PN ---
Subjective Progress Note Date: 05/28/23 Principal diagnosis: Altered mental status secondary due to Sepsis Sepsis associated urinary tract infection Urinary tract infection Seizure-like activity Broken PEG tube, high risk for aspiration status post PEG tube lately however patient eating by mouth active is being used for medications and nutritional supplemental support History of CVA Heart failure 05/28/2023, patient seen eval examined examined, patient however has been nothing by mouth but is as per speech therapy can be started on by mouth, PEG tube is 4 nutritional support as well as meds, patient is scheduled for EGD and PEG tube exchange later on today L Padilla on hold 05/27/2023, patient seen eval examined during rounds labs reviewed medications reviewed awake and alert, denies any chest pain, patient has had difficulty in tolerating tube feed with high residuals, the every feed port is fractured and taped, review of the records revealed that Dr. Richy diaz put the gastrostomy tube feed in will reconsult him for tube exchange if neededher like activity noted, patient on broad-spectrum antibiotics tolerating well 05/26/2023, patient seen eval examined during rounds labs reviewed medications reviewed patient is awake and alert, communicative, sinus present bedside no obvious distress present, culture results are not available, patient remains on IV Rocephin continued on home medications, responding appropriately This is a another admitted for 63-year-old female admitted to the emergency department not much data can be obtained from her, data predominantly obtained from the chart patient somnolent but arousable, patient admitted to hospital with confusion and altered mental status and has been more weaker than usual with decreased responsiveness those symptoms have going on for a few days getting worse over the period time. Patient is on outpatient basis on antidepressant antihypertensive diuretic oral anticoagulant diuretics and anti- seizure medicine, reportedly patient had episodes of seizure as well. On arrival patient was tachycardic with heart rate of 102 hemodynamic status stable, saturations 95% labs were significant were leukocytosis with WBC count of 15.1 hemoglobin and hematocrit is 8.7/28 platelet count of 511, sodium was 140 machine 5.1 BUN/creatinine is 38/0.69 improved from 46/0.91 Anna was within normal limit LFTs slightly elevated with alk phos of 210 AST/80s 70s/36 urine analysis turbid urine with large leukocyte esterase many wbc RBC many bacteria. Patient remained continued on her home medicine in addition has been started on IV Rocephin Objective - Vital Signs Vital signs: Vital Signs Temp 98.7 F 05/28/23 07:04 Pulse 87 05/28/23 11:59 Resp 18 05/28/23 07:20 BP 147/74 05/28/23 07:04 Pulse Ox 98 05/28/23 07:04 FiO2 Intake & Output 05/27/23 05/28/23 05/28/23 18:59 06:59 18:59 Intake Total 0 100 Output Total 400 Balance -400 0 100 Weight 62.5 kg Intake: IV 100 Tube Feeding 0 0 Output: Urine 400 Other: Voiding Method External Catheter External Catheter External Catheter # Bowel Movements 1 - Exam - Constitutional General appearance: average body habitus, disheveled, mild distress - EENT Eyes: EOMI, PERRLA ENT: normal oropharynx Ears: bilateral: normal - Neck Carotids: bilateral: upstroke normal Thyroid: bilateral: normal size - Respiratory Respiratory: bilateral: diminished - Cardiovascular Rhythm: regular Heart sounds: normal: S1, S2 - Gastrointestinal Appears her PEG tube has been broken it has been taped together manually General gastrointestinal: decreased bowel sounds, soft - Integumentary Integumentary: normal turgor - Neurologic Neurologic: CNII-XII intact - Musculoskeletal Musculoskeletal: generalized weakness, strength equal bilaterally - Labs CBC & Chem 7: 05/29/23 07:29 05/29/23 07:29 Labs: Abnormal Lab Results - Last 24 Hours (Table) 05/27/23 Range/Units 18:55 Urine Appearance Cloudy H (Clear) Urine Glucose (UA) 3+ H (Negative) Ur Leukocyte Esterase Moderate H (Negative) Urine WBC 6 H (0-5) /hpf Urine Bacteria Few H (None) /hpf Urine Yeast (Budding) Moderate H (None) /hpf Assessment and Plan Assessment: Altered mental status secondary due to Sepsis and post ictal state Sepsis associated urinary tract infection Urinary tract infection Seizure-like activity and post ictal state Broken PEG tube, high risk for aspiration status post PEG tube lately however patient eating by mouth active is being used for medications and nutritional supplemental support History of CVA Heart failure Plan: Mental status continued to improve Continue to monitor patient closely, continue fall precautions, Continue IV Rocephin, infectious disease services are being consulted follow-up urine culture Malfunctioning PEG tube, follow-up general surgery for replacement Continue Keppra for seizure activity neurology following Time with Patient: Greater than 30
--- NOTE | 2023-05-29 20:51 | P.PN ---
Subjective Progress Note Date: 05/29/23 Principal diagnosis: Altered mental status secondary due to Sepsis Sepsis associated urinary tract infection Urinary tract infection Seizure-like activity Broken PEG tube, high risk for aspiration status post PEG tube lately however patient eating by mouth active is being used for medications and nutritional supplemental support History of CVA Heart failure 05/29/2023, patient seen eval reexamined during the rounds, awake and alert, status post PEG tube placement, general surgery is following our dietitian to start to feed if needed 05/28/2023, patient seen eval examined examined, patient however has been nothing by mouth but is as per speech therapy can be started on by mouth, PEG tube is 4 nutritional support as well as meds, patient is scheduled for EGD and PEG tube exchange 05/27/2023, patient seen eval examined during rounds labs reviewed medications reviewed awake and alert, denies any chest pain, patient has had difficulty in tolerating tube feed with high residuals, the every feed port is fractured and taped, review of the records revealed that Dr. Richy diaz put the gastrostomy tube feed in will reconsult him for tube exchange if neededher like activity noted, patient on broad-spectrum antibiotics tolerating well 05/26/2023, patient seen eval examined during rounds labs reviewed medications reviewed patient is awake and alert, communicative, sinus present bedside no obvious distress present, culture results are not available, patient remains on IV Rocephin continued on home medications, responding appropriately This is a another admitted for 63-year-old female admitted to the emergency department not much data can be obtained from her, data predominantly obtained from the chart patient somnolent but arousable, patient admitted to hospital with confusion and altered mental status and has been more weaker than usual with decreased responsiveness those symptoms have going on for a few days getting worse over the period time. Patient is on outpatient basis on antidepressant antihypertensive diuretic oral anticoagulant diuretics and anti- seizure medicine, reportedly patient had episodes of seizure as well. On arrival patient was tachycardic with heart rate of 102 hemodynamic status stable, saturations 95% labs were significant were leukocytosis with WBC count of 15.1 hemoglobin and hematocrit is 8.7/28 platelet count of 511, sodium was 140 machine 5.1 BUN/creatinine is 38/0.69 improved from 46/0.91 Anna was within normal limit LFTs slightly elevated with alk phos of 210 AST/80s 70s/36 urine analysis turbid urine with large leukocyte esterase many wbc RBC many bacteria. Patient remained continued on her home medicine in addition has been started on IV Rocephin Objective - Vital Signs Vital signs: Vital Signs Temp 98.6 F 05/29/23 19:31 Pulse 105 H 05/29/23 19:31 Resp 18 05/29/23 19:31 BP 141/68 05/29/23 19:31 Pulse Ox 97 05/29/23 13:44 FiO2 Intake & Output 05/29/23 05/29/23 05/30/23 06:59 18:59 06:59 Intake Total 985 Output Total 700 Balance 285 Weight 62 kg 62 kg Intake: Intake, IV Titration 950 Amount Sodium Chloride 0.9% 1, 900 000 ml @ 75 mls/hr IV . [id number] [facility] Rx#:[id number] cefTRIAXone 2 gm In 50 Sodium Chloride 0.9% 50 ml @ 100 mls/hr IVPB HS [facility] Rx#:[id number] Tube Feeding 35 Output: Urine 700 Other: Voiding Method External Catheter # Bowel Movements 1 - Exam - Constitutional General appearance: average body habitus, disheveled, mild distress - EENT Eyes: EOMI, PERRLA ENT: normal oropharynx Ears: bilateral: normal - Neck Carotids: bilateral: upstroke normal Thyroid: bilateral: normal size - Respiratory Respiratory: bilateral: diminished - Cardiovascular Rhythm: regular Heart sounds: normal: S1, S2 - Gastrointestinal Appears her PEG tube has been broken it has been taped together manually General gastrointestinal: decreased bowel sounds, soft - Integumentary Integumentary: normal turgor - Neurologic Neurologic: CNII-XII intact - Musculoskeletal Musculoskeletal: generalized weakness, strength equal bilaterally - Labs CBC & Chem 7: 05/29/23 07:29 05/29/23 07:29 Labs: Abnormal Lab Results - Last 24 Hours (Table) 05/29/23 05/29/23 05/29/23 Range/Units 07:29 07:29 09:42 WBC 11.73 H (4.50-10.00) X 10*3/uL RBC 3.14 L (4.10-5.20) X 10*6/uL Hgb 8.0 L (12.0-15.0) d/dL Hct 26.5 L (37.2-46.3) % MCH 25.5 L (27.0-32.0) pg MCHC 30.2 L (32.0-37.0) d/dL RDW 19.1 H (11.5-14.5) % Plt Count 519 H (140-440) X 10*3/uL NRBC/100 WBC Diff 0.19 H (0.00-0.01) X 10*3/uL Chloride 118 H (98-107) mmol/L Carbon Dioxide 13 L (22-30) mmol/L BUN 19 H (7-17) mg/dL Glucose 52 L (74-99) mg/dL POC Glucose (mg/dL) 61 L (70-110) mg/dL 05/29/23 05/29/23 Range/Units 10:03 16:40 WBC (4.50-10.00) X 10*3/uL RBC (4.10-5.20) X 10*6/uL Hgb (12.0-15.0) d/dL Hct (37.2-46.3) % MCH (27.0-32.0) pg MCHC (32.0-37.0) d/dL RDW (11.5-14.5) % Plt Count (140-440) X 10*3/uL NRBC/100 WBC Diff (0.00-0.01) X 10*3/uL Chloride (98-107) mmol/L Carbon Dioxide (22-30) mmol/L BUN (7-17) mg/dL Glucose (74-99) mg/dL POC Glucose (mg/dL) 240 H 177 H (70-110) mg/dL Assessment and Plan Assessment: Altered mental status secondary due to Sepsis and post ictal state Sepsis associated urinary tract infection Urinary tract infection Seizure-like activity and post ictal state Broken PEG tube, high risk for aspiration status post PEG tube lately however patient eating by mouth active is being used for medications and nutritional supplemental support History of CVA Heart failure Plan: Mental status continued to improve Continue to monitor patient closely, continue fall precautions, Continue IV Rocephin, infectious disease services are being consulted follow-up urine culture Malfunctioning PEG tube, follow-up general surgery for replacement Continue Keppra for seizure activity neurology following Time with Patient: Greater than 30
[2023-05-29] MEDS: risperiDONE 1 MG TAB PEG/G-TUBE SCH (23:46)
[2023-05-30] MEDS: DIVALPROEX SPRINKLE 125 MG CAP.SPRINK PEG/G-TUBE SCH ×3 (01:10→20:50)
[2023-05-30] MEDS: CEFDINIR 300 MG CAP PO SCH ×2 (01:10→03:47)
[2023-05-30] MEDS: CEFDINIR ORAL SUSP 1,500 MG/60 ML BOTTLE PEG/G-TUBE SCH ×3 (01:33→20:49)
[2023-05-30] MEDS: SODIUM CHLORIDE 0.9% 1,000 ML IV SCH ×2 (02:38→15:27)
[2023-05-30 02:54] LABS: Glucose,Whole Blood 120 mg/dL (70-110)
[2023-05-30 05:42] LABS: Glucose,Whole Blood 101 mg/dL (70-110)
[2023-05-30] MEDS: BUDESONIDE 0.5 MG/2 ML NEBU INHALATION SCH ×2 (08:20→20:46)
[2023-05-30] MEDS: IPRATROPIUM-ALBUTEROL 3 ML NEB INHALATION SCH ×4 (08:20→20:46)
[2023-05-30] MEDS: FUROSEMIDE 20 MG TAB PEG/G-TUBE SCH (09:13)
[2023-05-30] MEDS: haloperidoL 5 MG TAB PEG/G-TUBE SCH ×2 (09:13→20:50)
[2023-05-30] MEDS: ASCORBIC ACID 500 MG TAB PEG/G-TUBE SCH (09:14)
[2023-05-30] MEDS: METOPROLOL TARTRATE 25 MG TAB PEG/G-TUBE SCH ×2 (09:14→20:50)
[2023-05-30] MEDS: LOSARTAN 25 MG TAB PEG/G-TUBE SCH (09:14)
[2023-05-30] MEDS: DAPAGLIFLOZIN PROPANEDIOL 10 MG TABLET PEG/G-TUBE SCH (09:14)
[2023-05-30] MEDS: SERTRALINE 25 MG TAB PEG/G-TUBE SCH (09:14)
[2023-05-30] MEDS: predniSONE 20 MG TAB PEG/G-TUBE SCH (09:15)
[2023-05-30] MEDS: CHOLESTYRAMINE (WITH SUGAR) 4 GM PACKET PEG/G-TUBE SCH ×2 (09:15→17:02)
[2023-05-30] MEDS: SERTRALINE 100 MG TAB PEG/G-TUBE SCH (09:15)
[2023-05-30] MEDS: LACOSAMIDE 150 MG TABLET PEG/G-TUBE SCH ×2 (10:13→20:49)
[2023-05-30 11:46] LABS: Glucose,Whole Blood 125 mg/dL (70-110)
[2023-05-30 17:13] LABS: Glucose,Whole Blood 135 mg/dL (70-110)
[2023-05-30 20:25] LABS: Glucose,Whole Blood 121 mg/dL (70-110)
[2023-05-30] MEDS: risperiDONE 1 MG TAB PEG/G-TUBE SCH (20:50)
--- NOTE | 2023-05-30 23:55 | P.PN ---
Subjective Progress Note Date: 05/29/23 Principal diagnosis: Urinary tract infection Patient is a 63-year-old -[place] female with a past medical history significant for hypertension hyperlipidemia osteoarthritis CVA TIA with recurrent UTIs and pneumonia the patient was brought into the hospital for evaluation of weakness mental status changes , patient did have positive UA concerning for symptomatic in her tract infection. Patient is status post PEG tube replacement on 06/15/2023 On today's evaluation that is 05/29/2023, the patient remains to be afebrile , the patient is breathing comfortably on room air and denies any shortness of breath, the patient denies any chest pain or cough, patient denies n ausea/vomiting or diarrhea and no abdominal pain White count of 11.73 creatinine 0.57 , repeat UA done on 05/27/2023 shows overall improvement Objective - Vital Signs Vital signs: Vital Signs Temp 98.2 F 05/29/23 07:03 Pulse 92 05/29/23 11:56 Resp 17 05/29/23 07:03 BP 165/90 05/29/23 07:03 Pulse Ox 98 05/29/23 07:03 FiO2 Intake & Output 05/28/23 05/29/23 05/29/23 18:59 06:59 18:59 Intake Total 100 985 Output Total 300 Balance -200 985 Weight 62 kg 62 kg Intake: IV 100 Intake, IV Titration 950 Amount Sodium Chloride 0.9% 1, 900 000 ml @ 75 mls/hr IV . [id number] [facility] Rx#:[id number] cefTRIAXone 2 gm In 50 Sodium Chloride 0.9% 50 ml @ 100 mls/hr IVPB HS [facility] Rx#:[id number] Tube Feeding 0 35 Output: Urine 300 Other: Voiding Method External Catheter External Catheter # Bowel Movements 2 1 - Exam GENERAL DESCRIPTION: An elderly female lying in bed in no distress RESPIRATORY SYSTEM: Unlabored breathing , clear to auscultation anteriorly HEART: S1 S2 regular rate and rhythm , ABDOMEN: Soft , no tenderness EXTREMITIES: No edema feet - Labs CBC & Chem 7: 05/29/23 07:29 05/29/23 07:29 Labs: Abnormal Lab Results - Last 24 Hours (Table) 05/29/23 05/29/23 05/29/23 Range/Units 07:29 07:29 09:42 WBC 11.73 H (4.50-10.00) X 10*3/uL RBC 3.14 L (4.10-5.20) X 10*6/uL Hgb 8.0 L (12.0-15.0) d/dL Hct 26.5 L (37.2-46.3) % MCH 25.5 L (27.0-32.0) pg MCHC 30.2 L (32.0-37.0) d/dL RDW 19.1 H (11.5-14.5) % Plt Count 519 H (140-440) X 10*3/uL NRBC/100 WBC Diff 0.19 H (0.00-0.01) X 10*3/uL Chloride 118 H (98-107) mmol/L Carbon Dioxide 13 L (22-30) mmol/L BUN 19 H (7-17) mg/dL Glucose 52 L (74-99) mg/dL POC Glucose (mg/dL) 61 L (70-110) mg/dL 05/29/23 Range/Units 10:03 WBC (4.50-10.00) X 10*3/uL RBC (4.10-5.20) X 10*6/uL Hgb (12.0-15.0) d/dL Hct (37.2-46.3) % MCH (27.0-32.0) pg MCHC (32.0-37.0) d/dL RDW (11.5-14.5) % Plt Count (140-440) X 10*3/uL NRBC/100 WBC Diff (0.00-0.01) X 10*3/uL Chloride (98-107) mmol/L Carbon Dioxide (22-30) mmol/L BUN (7-17) mg/dL Glucose (74-99) mg/dL POC Glucose (mg/dL) 240 H (70-110) mg/dL Assessment and Plan (1) UTI (urinary tract infection) Current Visit: Yes Status: Acute Code(s): N39.0 - URINARY TRACT INFECTION, SITE NOT SPECIFIED SNOMED Code(s): 98109976 Plan: 1patient present to hospital with weakness mental status changes likely multifactorial did have a component of UTI as patient has significantly positive UA also elevated white count likely from enteric gram-negative pathogen 2Patient has shown clinical improvement and repeat UA has shown improvement , pt has lost IV access , antibiotics switched to oral omnicef 3 heel stage III pressure ulcer with some slough tissue will benefit from Medihoney and keeping the area of the pressure Time with Patient: Less than 30
--- NOTE | 2023-05-30 23:57 | P.PN ---
Subjective Progress Note Date: 05/30/23 Principal diagnosis: Urinary tract infection Patient is a 63-year-old -Stateless female with a past medical history significant for hypertension hyperlipidemia osteoarthritis CVA TIA with recurrent UTIs and pneumonia the patient was brought into the hospital for evaluation of weakness mental status changes , patient did have positive UA concerning for symptomatic in her tract infection. Patient is status post PEG tube replacement on 06/15/2023 On today's evaluation that is 05/30/2023, the patient continues to be afebrile , the patient is breathing comfortably on room air and denies chest pain or cough, patient denies nausea/vomiting or diarrhea and no abdominal pain , feeling better wants to go home White count of 11.73 creatinine 0.57 as of yesterday, repeat UA done on 05/27/2023 shows overall improvement Objective - Vital Signs Vital signs: Vital Signs Temp 98.6 F 05/30/23 20:23 Pulse 98 05/30/23 20:23 Resp 16 05/30/23 20:23 BP 155/83 05/30/23 20:23 Pulse Ox 97 05/30/23 20:23 FiO2 Intake & Output 05/30/23 05/30/23 05/31/23 06:59 18:59 05:59 Intake Total 35 35 Output Total 750 150 Balance 35 -715 -150 Weight 62.5 kg Intake: Tube Feeding 35 35 Output: Urine 750 150 Other: Voiding Method External Catheter External Catheter - Exam GENERAL DESCRIPTION: An elderly female lying in bed in no distress RESPIRATORY SYSTEM: Unlabored breathing , clear to auscultation anteriorly HEART: S1 S2 regular rate and rhythm , ABDOMEN: Soft , no tenderness EXTREMITIES: No edema feet - Labs CBC & Chem 7: 05/29/23 07:29 05/29/23 07:29 Labs: Abnormal Lab Results - Last 24 Hours (Table) 05/30/23 05/30/23 05/30/23 Range/Units 02:51 11:43 17:00 POC Glucose (mg/dL) 120 H 125 H 135 H (70-110) mg/dL 05/30/23 Range/Units 20:23 POC Glucose (mg/dL) 121 H (70-110) mg/dL Assessment and Plan (1) UTI (urinary tract infection) Current Visit: Yes Status: Acute Code(s): N39.0 - URINARY TRACT INFECTION, SITE NOT SPECIFIED SNOMED Code(s): 61942645 Plan: 1patient present to hospital with weakness mental status changes likely multifactorial did have a component of UTI as patient has significantly positive UA also elevated white count likely from enteric gram-negative pathogen 2 heel stage III pressure ulcer with some slough tissue will benefit from Medihoney and keeping the area of the pressure 3-Patient has shown clinical improvement and repeat UA has shown improvement , Pt to continue with oral omnicef x few more days Time with Patient: Less than 30
[2023-05-31] MEDS: SODIUM CHLORIDE 0.9% 1,000 ML IV SCH ×2 (04:55→14:53)
[2023-05-31 05:17] LABS: Glucose,Whole Blood 80 mg/dL (70-110)
[2023-05-31] MEDS: SERTRALINE 100 MG TAB PEG/G-TUBE SCH (09:32)
[2023-05-31] MEDS: ASCORBIC ACID 500 MG TAB PEG/G-TUBE SCH (09:32)
[2023-05-31] MEDS: predniSONE 20 MG TAB PEG/G-TUBE SCH (09:32)
[2023-05-31] MEDS: LOSARTAN 25 MG TAB PEG/G-TUBE SCH (09:32)
[2023-05-31] MEDS: FUROSEMIDE 20 MG TAB PEG/G-TUBE SCH (09:32)
[2023-05-31] MEDS: DAPAGLIFLOZIN PROPANEDIOL 10 MG TABLET PEG/G-TUBE SCH (09:33)
[2023-05-31] MEDS: DIVALPROEX SPRINKLE 125 MG CAP.SPRINK PEG/G-TUBE SCH ×2 (09:33→21:46)
[2023-05-31] MEDS: CEFDINIR ORAL SUSP 1,500 MG/60 ML BOTTLE PEG/G-TUBE SCH ×2 (09:33→21:45)
[2023-05-31] MEDS: haloperidoL 5 MG TAB PEG/G-TUBE SCH ×2 (09:34→21:45)
[2023-05-31] MEDS: METOPROLOL TARTRATE 25 MG TAB PEG/G-TUBE SCH ×2 (09:34→21:46)
[2023-05-31] MEDS: SERTRALINE 25 MG TAB PEG/G-TUBE SCH (09:34)
[2023-05-31] MEDS: LACOSAMIDE 150 MG TABLET PEG/G-TUBE SCH ×2 (09:37→21:46)
[2023-05-31] MEDS: BUDESONIDE 0.5 MG/2 ML NEBU INHALATION SCH ×2 (09:40→21:06)
[2023-05-31] MEDS: IPRATROPIUM-ALBUTEROL 3 ML NEB INHALATION SCH ×4 (09:40→21:05)
[2023-05-31] MEDS: CHOLESTYRAMINE (WITH SUGAR) 4 GM PACKET PEG/G-TUBE SCH ×2 (10:55→21:46)
[2023-05-31 11:42] LABS: Glucose,Whole Blood 91 mg/dL (70-110)
--- NOTE | 2023-05-31 14:24 | P.PN ---
Subjective Progress Note Date: 05/31/23 Principal diagnosis: Urinary tract infection Patient is a 63-year-old -[place] female with a past medical history significant for hypertension hyperlipidemia osteoarthritis CVA TIA with recurrent UTIs and pneumonia the patient was brought into the hospital for evaluation of weakness mental status changes , patient did have positive UA concerning for symptomatic in her tract infection. Patient is status post PEG tube replacement on 06/15/2023 On today's evaluation that is 05/31/2023, the patient remained to be afebrile , the patient is breathing comfortably on room air , patient seemed to be slightly upset at the time of evaluation and was crying and did not answer any question no vomiting or diarrhea was reported by the nursing staff White count of 11.73 creatinine 0.57 as of 05/29/2023, repeat UA done on 05/27/2023 shows overall improvement Objective - Vital Signs Vital signs: Vital Signs Temp 98.4 F 05/31/23 13:21 Pulse 96 05/31/23 13:21 Resp 19 05/31/23 13:21 BP 151/99 05/31/23 13:21 Pulse Ox 91 L 05/31/23 13:21 FiO2 Intake & Output 05/30/23 05/31/23 05/31/23 19:59 06:59 18:59 Intake Total 237 Output Total Balance 237 Weight Intake: Tube Feeding 237 Output: Urine Other: Voiding Method # Voids 1 # Bowel Movements 1 - Exam GENERAL DESCRIPTION: An elderly female lying in bed in no distress RESPIRATORY SYSTEM: Unlabored breathing , clear to auscultation anteriorly HEART: S1 S2 regular rate and rhythm , ABDOMEN: Soft , no tenderness EXTREMITIES: No edema feet - Labs CBC & Chem 7: 05/29/23 07:29 05/29/23 07:29 Labs: Abnormal Lab Results - Last 24 Hours (Table) 05/30/23 05/30/23 Range/Units 17:00 20:23 POC Glucose (mg/dL) 135 H 121 H (70-110) mg/dL Assessment and Plan (1) UTI (urinary tract infection) Current Visit: Yes Status: Acute Code(s): N39.0 - URINARY TRACT INFECTION, SITE NOT SPECIFIED SNOMED Code(s): 87164826 Plan: 1patient present to hospital with weakness mental status changes likely multifactorial did have a component of UTI as patient has significantly positive UA also elevated white count likely from enteric gram-negative pathogen 2 heel stage III pressure ulcer with some slough tissue will benefit from Medihoney and keeping the area of the pressure 3-Patient has shown clinical improvement and repeat UA has shown improvement , patient is currently on oral omnicef to continue for 3 more days Time with Patient: Less than 30
[2023-05-31 17:25] LABS: Glucose,Whole Blood 129 mg/dL (70-110)
[2023-05-31 20:22] LABS: Glucose,Whole Blood 135 mg/dL (70-110)
[2023-05-31] MEDS: risperiDONE 1 MG TAB PEG/G-TUBE SCH (21:46)
[2023-06-01] MEDS: SODIUM CHLORIDE 0.9% 1,000 ML IV SCH ×2 (04:46→18:21)
[2023-06-01 05:27] LABS: Glucose,Whole Blood 93 mg/dL (70-110)
[2023-06-01] MEDS: BUDESONIDE 0.5 MG/2 ML NEBU INHALATION SCH ×2 (08:24→19:33)
[2023-06-01] MEDS: IPRATROPIUM-ALBUTEROL 3 ML NEB INHALATION SCH ×4 (08:24→19:33)
[2023-06-01] MEDS: FUROSEMIDE 20 MG TAB PEG/G-TUBE SCH (09:28)
[2023-06-01] MEDS: predniSONE 20 MG TAB PEG/G-TUBE SCH (09:28)
[2023-06-01] MEDS: CEFDINIR ORAL SUSP 1,500 MG/60 ML BOTTLE PEG/G-TUBE SCH ×2 (09:28→20:54)
[2023-06-01] MEDS: DIVALPROEX SPRINKLE 125 MG CAP.SPRINK PEG/G-TUBE SCH ×2 (09:28→20:51)
[2023-06-01] MEDS: LACOSAMIDE 150 MG TABLET PEG/G-TUBE SCH ×2 (09:29→20:51)
[2023-06-01] MEDS: ASCORBIC ACID 500 MG TAB PEG/G-TUBE SCH (09:29)
[2023-06-01] MEDS: LOSARTAN 25 MG TAB PEG/G-TUBE SCH (09:29)
[2023-06-01] MEDS: METOPROLOL TARTRATE 25 MG TAB PEG/G-TUBE SCH ×2 (09:29→20:51)
[2023-06-01] MEDS: SERTRALINE 100 MG TAB PEG/G-TUBE SCH (09:29)
[2023-06-01] MEDS: haloperidoL 5 MG TAB PEG/G-TUBE SCH ×2 (09:30→20:51)
[2023-06-01] MEDS: DAPAGLIFLOZIN PROPANEDIOL 10 MG TABLET PEG/G-TUBE SCH (09:30)
[2023-06-01] MEDS: CHOLESTYRAMINE (WITH SUGAR) 4 GM PACKET PEG/G-TUBE SCH ×2 (09:32→15:50)
[2023-06-01] MEDS: SERTRALINE 25 MG TAB PEG/G-TUBE SCH (09:43)
--- NOTE | 2023-06-01 11:39 | P.PN ---
Subjective Progress Note Date: 06/01/23 Principal diagnosis: Urinary tract infection Patient is a 63-year-old -Beninese female with a past medical history significant for hypertension hyperlipidemia osteoarthritis CVA TIA with recurrent UTIs and pneumonia the patient was brought into the hospital for evaluation of weakness mental status changes , patient did have positive UA concerning for symptomatic in her tract infection. Patient is status post PEG tube replacement on 06/15/2023 On today's evaluation that is 06/01/2023, the patient remains to be afebrile, the patient is breathing comfortably on room air , the patient denies any chest pain or cough and no sputum production, patient denies nausea/vomiting or diarrhea , no abdominal pain, the patient is more pleasant today and wants to go home White count of 11.73 creatinine 0.57 as of 05/29/2023, repeat UA done on 05/27/2023 shows overall improvement, no new labs Objective - Vital Signs Vital signs: Vital Signs Temp 98.3 F 06/01/23 07:25 Pulse 92 06/01/23 08:44 Resp 18 06/01/23 07:25 BP 158/83 06/01/23 07:25 Pulse Ox 97 06/01/23 07:25 FiO2 Intake & Output 05/31/23 06/01/23 06/01/23 18:59 06:59 18:59 Intake Total 237 711 Output Total 200 200 Balance 37 511 Weight 43.5 kg Intake: Tube Feeding 237 711 Output: Urine 200 200 Other: Voiding Method External Catheter # Voids 1 # Bowel Movements 1 - Exam GENERAL DESCRIPTION: An elderly female lying in bed in no distress RESPIRATORY SYSTEM: Unlabored breathing , clear to auscultation anteriorly HEART: S1 S2 regular rate and rhythm , ABDOMEN: Soft , no tenderness EXTREMITIES: No edema feet - Labs CBC & Chem 7: 05/29/23 07:29 05/29/23 07:29 Labs: Abnormal Lab Results - Last 24 Hours (Table) 05/31/23 05/31/23 Range/Units 17:23 20:21 POC Glucose (mg/dL) 129 H 135 H (70-110) mg/dL Assessment and Plan (1) UTI (urinary tract infection) Current Visit: Yes Status: Acute Code(s): N39.0 - URINARY TRACT INFECTION, SITE NOT SPECIFIED SNOMED Code(s): 09740001 Plan: 1patient present to hospital with weakness mental status changes likely multifa ctorial did have a component of UTI as patient has significantly positive UA also elevated white count likely from enteric gram-negative pathogen 2 heel stage III pressure ulcer with some slough tissue will benefit from Medihoney and keeping the area of the pressure 3-Patient has shown clinical improvement and repeat UA has shown improvement , patient to continue oral omnicef for another 2 days to finish a course of therapy Time with Patient: Less than 30
[2023-06-01 11:54] LABS: Glucose,Whole Blood 110 mg/dL (70-110)
[2023-06-01 15:17] VITALS: BMI 18.7
[2023-06-01 15:37] LABS: Basophils # (A) 0.01 X 10*3/uL (0.00-0.10); Basophils % (A) 0.1 %; Eosinophils # (A) 0.02 X 10*3/uL (0.04-0.35); Eosinophils % (A) 0.2 %; HCT 28.5 % (37.2-46.3); HGB 8.7 d/dL (12.0-15.0); Lymphocytes % (A) 9.9 %; MCH 25.1 pg (27.0-32.0); MCHC 30.5 d/dL (32.0-37.0); MCV 82.1 FL (80.0-97.0); Mean Platelet Volume 10.7 FL (9.5-12.2); Monocytes # (A) 1.15 X 10*3/uL (0.20-1.00); Monocytes % (A) 8.8 %; NRBC Per 100 WBC 0.08 X 10*3/uL (0.00-0.01); Neutrophils # (A) 10.48 X 10*3/uL (1.80-7.70); Platelet Count 464 X 10*3/uL (140-440); RBC 3.47 X 10*6/uL (4.10-5.20); RDW 18.8 % (11.5-14.5); WBC 13.09 X 10*3/uL (4.50-10.00)
[2023-06-01] MEDS: oxyCODONE-APAP 10-325MG 1 EACH TAB PEG/G-TUBE PRN (15:50)
[2023-06-01 17:00] LABS: Glucose,Whole Blood 154 mg/dL (70-110)
--- NOTE | 2023-06-01 17:25 | P.PN ---
Subjective Progress Note Date: 05/30/23 Principal diagnosis: Altered mental status secondary due to Sepsis Sepsis associated urinary tract infection Urinary tract infection Seizure-like activity Broken PEG tube, high risk for aspiration status post PEG tube lately however patient eating by mouth active is being used for medications and nutritional supplemental support History of CVA Heart failure 05/30/2023, patient is doing well status post PEG tube placement, additional nutritional support given through there, discussed with dietitian patient can swallow diet as per recommendation, patient breathing comfortably on room air and obvious distress present, wants to get up from the bed to the bedside, discu ssed with RN and staff 05/29/2023, patient seen eval reexamined during the rounds, awake and alert, status post PEG tube placement, general surgery is following our dietitian to start to feed if needed 05/28/2023, patient seen eval examined examined, patient however has been nothing by mouth but is as per speech therapy can be started on by mouth, PEG tube is 4 nutritional support as well as meds, patient is scheduled for EGD and PEG tube exchange 05/27/2023, patient seen eval examined during rounds labs reviewed medications reviewed awake and alert, denies any chest pain, patient has had difficulty in tolerating tube feed with high residuals, the every feed port is fractured and taped, review of the records revealed that Dr. Richy diaz put the gastrostomy tube feed in will reconsult him for tube exchange if neededher like activity noted, patient on broad-spectrum antibiotics tolerating well 05/26/2023, patient seen eval examined during rounds labs reviewed medications reviewed patient is awake and alert, communicative, sinus present bedside no obvious distress present, culture results are not available, patient remains on IV Rocephin continued on home medications, responding appropriately This is a another admitted for 63-year-old female admitted to the emergency department not much data can be obtained from her, data predominantly obtained from the chart patient somnolent but arousable, patient admitted to hospital with confusion and altered mental status and has been more weaker than usual with decreased responsiveness those symptoms have going on for a few days ge tting worse over the period time. Patient is on outpatient basis on antidepressant antihypertensive diuretic oral anticoagulant diuretics and anti- seizure medicine, reportedly patient had episodes of seizure as well. On arrival patient was tachycardic with heart rate of 102 hemodynamic status stab le, saturations 95% labs were significant were leukocytosis with WBC count of 15.1 hemoglobin and hematocrit is 8.7/28 platelet count of 511, sodium was 140 machine 5.1 BUN/creatinine is 38/0.69 improved from 46/0.91 Anna was within normal limit LFTs slightly elevated with alk phos of 210 AST/80s 70s/36 urine analysis turbid urine with large leukocyte esterase many wbc RBC many bacteria. Patient remained continued on her home medicine in addition has been started on IV Rocephin Objective - Vital Signs Vital signs: Vital Signs Temp 98.6 F 05/30/23 20:23 Pulse 98 05/30/23 20:23 Resp 16 05/30/23 20:23 BP 155/83 05/30/23 20:23 Pulse Ox 97 05/30/23 20:23 FiO2 Intake & Output 05/30/23 05/30/23 05/31/23 06:59 18:59 05:59 Intake Total 35 35 Output Total 750 150 Balance 35 -715 -150 Weight 62.5 kg Intake: Tube Feeding 35 35 Output: Urine 750 150 Other: Voiding Method External Catheter External Catheter - Exam - Constitutional General appearance: average body habitus, disheveled, mild distress - EENT Eyes: EOMI, PERRLA ENT: normal oropharynx Ears: bilateral: normal - Neck Carotids: bilateral: upstroke normal Thyroid: bilateral: normal size - Respiratory Respiratory: bilateral: diminished - Cardiovascular Rhythm: regular Heart sounds: normal: S1, S2 - Gastrointestinal Appears her PEG tube has been broken it has been taped together manually General gastrointestinal: decreased bowel sounds, soft - Integumentary Integumentary: normal turgor - Neurologic Neurologic: CNII-XII intact - Musculoskeletal Musculoskeletal: generalized weakness, strength equal bilaterally - Labs CBC & Chem 7: 06/01/23 12:30 05/29/23 07:29 Labs: Abnormal Lab Results - Last 24 Hours (Table) 05/30/23 05/30/23 05/30/23 Range/Units 02:51 11:43 17:00 POC Glucose (mg/dL) 120 H 125 H 135 H (70-110) mg/dL 05/30/23 Range/Units 20:23 POC Glucose (mg/dL) 121 H (70-110) mg/dL Assessment and Plan Assessment: Altered mental status secondary due to Sepsis and post ictal state Sepsis associated urinary tract infection Urinary tract infection Seizure-like activity and post ictal state Broken PEG tube, high risk for aspiration status post PEG tube lately however patient eating by mouth active is being used for medications and nutritional supplemental support History of CVA Heart failure Plan: Mental status continued to improve Continue to monitor patient closely, continue fall precautions, Continue IV Rocephin, infectious disease services are being consulted follow-up urine culture Malfunctioning PEG tube, follow-up general surgery for replacement Continue Keppra for seizure activity neurology following Time with Patient: Greater than 30
--- NOTE | 2023-06-01 17:29 | P.PN ---
Subjective Progress Note Date: 05/31/23 Principal diagnosis: Altered mental status secondary due to Sepsis Sepsis associated urinary tract infection Urinary tract infection Seizure-like activity Broken PEG tube, high risk for aspiration status post PEG tube lately however patient eating by mouth active is being used for medications and nutritional supplemental support History of CVA Heart failure 05/31/2023, awake and alert, responding no obvious distress present, he remains unaware saturation mid 90s, patient tolerating by mouth him through G-tube well, there is some concern from the family reported to the RN about the PEG tube, will discuss awaiting their advice, will repeat the labs 05/30/2023, patient is doing well status post PEG tube placement, additional nutritional support given through there, discussed with dietitian patient can swallow diet as per recommendation, patient breathing comfortably on room air and obvious distress present, wants to get up from the bed to the bedside, discussed with RN and staff 05/29/2023, patient seen eval reexamined during the rounds, awake and alert, st atus post PEG tube placement, general surgery is following our dietitian to start to feed if needed 05/28/2023, patient seen eval examined examined, patient however has been nothing by mouth but is as per speech therapy can be started on by mouth, PEG tube is 4 nutritional support as well as meds, patient is scheduled for EGD and PEG tube exchange 05/27/2023, patient seen eval examined during rounds labs reviewed medications reviewed awake and alert, denies any chest pain, patient has had difficulty in tolerating tube feed with high residuals, the every feed port is fractured and taped, review of the records revealed that Dr. Richy diaz put the gastrostomy tube feed in will reconsult him for tube exchange if neededher like activity noted, patient on broad-spectrum antibiotics tolerating well 05/26/2023, patient seen eval examined during rounds labs reviewed medications reviewed patient is awake and alert, communicative, sinus present bedside no obvious distress present, culture results are not available, patient remains on IV Rocephin continued on home medications, responding appropriately This is a another admitted for 63-year-old female admitted to the emergency department not much data can be obtained from her, data predominantly obtained from the chart patient somnolent but arousable, patient admitted to hospital with confusion and altered mental status and has been more weaker than usual with decreased responsiveness those symptoms have going on for a few days gettin g worse over the period time. Patient is on outpatient basis on antidepressant antihypertensive diuretic oral anticoagulant diuretics and anti-seizure medicine, reportedly patient had episodes of seizure as well. On arrival patient was tachycardic with heart rate of 102 hemodynamic status stable, saturations 95% labs were significant were leukocytosis with WBC count of 15.1 hemoglobin and hematocrit is 8.7/28 platelet count of 511, sodium was 140 machine 5.1 BUN/creatinine is 38/0.69 improved from 46/0.91 Anna was within normal limit LFTs slightly elevated with alk phos of 210 AST/80s 70s/36 urine analysis turbid urine with large leukocyte esterase many wbc RBC many bacteria. Patient remained continued on her home medicine in addition has been started on IV Rocephin Objective - Vital Signs Vital signs: Vital Signs Temp 97.9 F 05/31/23 07:11 Pulse 93 05/31/23 09:50 Resp 19 05/31/23 07:11 BP 170/78 05/31/23 07:11 Pulse Ox 97 05/31/23 07:11 FiO2 Intake & Output 05/30/23 05/31/23 05/31/23 19:59 06:59 18:59 Intake Total Output Total Balance Weight Intake: Tube Feeding Output: Urine Other: Voiding Method - Exam - Constitutional General appearance: average body habitus, disheveled, mild distress - EENT Eyes: EOMI, PERRLA ENT: normal oropharynx Ears: bilateral: normal - Neck Carotids: bilateral: upstroke normal Thyroid: bilateral: normal size - Respiratory Respiratory: bilateral: diminished - Cardiovascular Rhythm: regular Heart sounds: normal: S1, S2 - Gastrointestinal Appears her PEG tube has been broken it has been taped together manually General gastrointestinal: decreased bowel sounds, soft - Integumentary Integumentary: normal turgor - Neurologic Neurologic: CNII-XII intact - Musculoskeletal Musculoskeletal: generalized weakness, strength equal bilaterally - Labs CBC & Chem 7: 06/01/23 12:30 05/29/23 07:29 Labs: Abnormal Lab Results - Last 24 Hours (Table) 05/30/23 05/30/23 Range/Units 17:00 20:23 POC Glucose (mg/dL) 135 H 121 H (70-110) mg/dL Assessment and Plan Assessment: Altered mental status secondary due to Sepsis and post ictal state Sepsis associated urinary tract infection Urinary tract infection Seizure-like activity and post ictal state Broken PEG tube, high risk for aspiration status post PEG tube lately however patient eating by mouth active is being used for medications and nutritional supplemental support History of CVA Heart failure Plan: Mental status continued to improve Continue to monitor patient closely, continue fall precautions, Continue IV Rocephin, infectious disease services are being consulted follow-up urine culture Malfunctioning PEG tube, follow-up general surgery for replacement Continue Keppra for seizure activity neurology following Time with Patient: Greater than 30
--- NOTE | 2023-06-01 17:30 | P.PN ---
Subjective Progress Note Date: 06/01/23 Principal diagnosis: Altered mental status secondary due to Sepsis Sepsis associated urinary tract infection Urinary tract infection Seizure-like activity Broken PEG tube, high risk for aspiration status post PEG tube lately however patient eating by mouth active is being used for medications and nutritional supplemental support History of CVA Heart failure 06/01/2023, overall no significant change, patient care plan discussed with the discharge planning nurse likely will be discharged will repeat labs prior to discharge this patient has a history of hypokalemia, remains on broad-spectrum antibiotics ID service has been following, currently patient is on Omnicef 05/31/2023, awake and alert, responding no obvious distress present, he remains unaware saturation mid 90s, patient tolerating by mouth him through G-tube well, there is some concern from the family reported to the RN about the PEG tube, will discuss awaiting their advice, will repeat the labs 05/30/2023, patient is doing well status post PEG tube placement, additional nutritional support given through there, discussed with dietitian patient can swallow diet as per recommendation, patient breathing comfortably on room air and obvious distress present, wants to get up from the bed to the bedside, discussed with RN and staff 05/29/2023, patient seen eval reexamined during the rounds, awake and alert, status post PEG tube placement, general surgery is following our dietitian to start to feed if needed 05/28/2023, patient seen eval examined examined, patient however has been nothing by mouth but is as per speech therapy can be started on by mouth, PEG tube is 4 nutritional support as well as meds, patient is scheduled for EGD and PEG tube exchange 05/27/2023, patient seen eval examined during rounds labs reviewed medications reviewed awake and alert, denies any chest pain, patient has had difficulty in tolerating tube feed with high residuals, the every feed port is fractured and taped, review of the records revealed that Dr. Richy diaz put the gastrostomy tube feed in will reconsult him for tube exchange if neededher like activity noted, patient on broad-spectrum antibiotics tolerating well 05/26/2023, patient seen eval examined during rounds labs reviewed medications reviewed patient is awake and alert, communicative, sinus present bedside no obvious distress present, culture results are not available, patient remains on IV Rocephin continued on home medications, responding appropriately This is a another admitted for 63-year-old female admitted to the emergency d epartment not much data can be obtained from her, data predominantly obtained from the chart patient somnolent but arousable, patient admitted to hospital with confusion and altered mental status and has been more weaker than usual with decreased responsiveness those symptoms have going on for a few days getting worse over the period time. Patient is on outpatient basis on antidepressant antihypertensive diuretic oral anticoagulant diuretics and anti- seizure medicine, reportedly patient had episodes of seizure as well. On arrival patient was tachycardic with heart rate of 102 hemodynamic status stable, saturations 95% labs were significant were leukocytosis with WBC count of 15.1 hemoglobin and hematocrit is 8.7/28 platelet count of 511, sodium was 140 machine 5.1 BUN/creatinine is 38/0.69 improved from 46/0.91 Anna was within normal limit LFTs slightly elevated with alk phos of 210 AST/80s 70s/36 urine analysis turbid urine with large leukocyte esterase many wbc RBC many bacteria. Patient remained continued on her home medicine in addition has been started on IV Rocephin Objective - Vital Signs Vital signs: Vital Signs Temp 98.9 F 06/01/23 14:40 Pulse 101 H 06/01/23 16:35 Resp 18 06/01/23 14:40 BP 164/67 06/01/23 14:40 Pulse Ox 96 06/01/23 14:40 FiO2 Intake & Output 05/31/23 06/01/23 06/01/23 18:59 06:59 18:59 Intake Total 237 711 Output Total 200 200 Balance 37 511 Weight 43.5 kg 43.5 kg Intake: Tube Feeding 237 711 Output: Urine 200 200 Other: Voiding Method External Catheter External Catheter # Voids 1 1 # Bowel Movements 1 1 - Exam - Constitutional General appearance: average body habitus, disheveled, mild distress - EENT Eyes: EOMI, PERRLA ENT: normal oropharynx Ears: bilateral: normal - Neck Carotids: bilateral: upstroke normal Thyroid: bilateral: normal size - Respiratory Respiratory: bilateral: diminished - Cardiovascular Rhythm: regular Heart sounds: normal: S1, S2 - Gastrointestinal Appears her PEG tube has been broken it has been taped together manually General gastrointestinal: decreased bowel sounds, soft - Integumentary Integumentary: normal turgor - Neurologic Neurologic: CNII-XII intact - Musculoskeletal Musculoskeletal: generalized weakness, strength equal bilaterally - Labs CBC & Chem 7: 06/01/23 12:30 05/29/23 07:29 Labs: Abnormal Lab Results - Last 24 Hours (Table) 05/31/23 06/01/23 06/01/23 Range/Units 20:21 12:30 16:58 WBC 13.09 H (4.50-10.00) X 10*3/uL RBC 3.47 L (4.10-5.20) X 10*6/uL Hgb 8.7 L (12.0-15.0) d/dL Hct 28.5 L (37.2-46.3) % MCH 25.1 L (27.0-32.0) pg MCHC 30.5 L (32.0-37.0) d/dL RDW 18.8 H (11.5-14.5) % Plt Count 464 H (140-440) X 10*3/uL Neutrophils # 10.48 H (1.80-7.70) X 10*3/uL Monocytes # 1.15 H (0.20-1.00) X 10*3/uL Eosinophils # 0.02 L (0.04-0.35) X 10*3/uL NRBC/100 WBC Diff 0.08 H (0.00-0.01) X 10*3/uL POC Glucose (mg/dL) 135 H 154 H (70-110) mg/dL Assessment and Plan Assessment: Altered mental status secondary due to Sepsis and post ictal state Sepsis associated urinary tract infection Urinary tract infection Seizure-like activity and post ictal state Broken PEG tube, high risk for aspiration status post PEG tube lately however patient eating by mouth active is being used for medications and nutritional supplemental support History of CVA Heart failure Plan: Mental status continued to improve Continue to monitor patient closely, continue fall precautions, Continue oral Omnicef, infectious disease services are being consulted follow-up urine culture Malfunctioning PEG tube, follow-up general surgery for replacement Continue Keppra for seizure activity neurology following Time with Patient: Less than 30
[2023-06-01] MEDS: risperiDONE 1 MG TAB PEG/G-TUBE SCH (20:51)
[2023-06-01 23:46] LABS: ALT 33 U/L (8-44); AST 30 U/L (13-35); Albumin 3.2 d/dL (3.8-4.9); Albumin/Globulin Ratio 1.07 Ratio (1.60-3.17); Alkaline Phosphatase 130 U/L (41-126); Blood Urea Nitrogen 16.8 mg/dL (9.0-27.0); Calcium 9.2 mg/dL (8.7-10.3); Carbon Dioxide 16.7 mmol/L (21.6-31.8); Chloride 111 mmol/L (96-109); Glucose 114 mg/dL (70-110); Magnesium 1.5 mg/dL (1.5-2.4); Phosphorus 3.2 mg/dL (2.4-5.1); Potassium 4.6 mmol/L (3.5-5.5); Sodium 140 mmol/L (135-145); Total Bilirubin 0.2 mg/dL (0.3-1.2); Total Protein 6.2 d/dL (6.2-8.2)
[2023-06-02] MEDS: SODIUM CHLORIDE 0.9% 1,000 ML IV SCH ×2 (05:16→21:39)
[2023-06-02] MEDS: FUROSEMIDE 20 MG TAB PEG/G-TUBE SCH (08:02)
[2023-06-02] MEDS: DIVALPROEX SPRINKLE 125 MG CAP.SPRINK PEG/G-TUBE SCH ×2 (08:02→21:52)
[2023-06-02] MEDS: LOSARTAN 25 MG TAB PEG/G-TUBE SCH (08:02)
[2023-06-02] MEDS: SERTRALINE 100 MG TAB PEG/G-TUBE SCH (08:02)
[2023-06-02] MEDS: METOPROLOL TARTRATE 25 MG TAB PEG/G-TUBE SCH ×2 (08:02→21:52)
[2023-06-02] MEDS: predniSONE 20 MG TAB PEG/G-TUBE SCH (08:02)
[2023-06-02] MEDS: ASCORBIC ACID 500 MG TAB PEG/G-TUBE SCH (08:02)
[2023-06-02] MEDS: haloperidoL 5 MG TAB PEG/G-TUBE SCH ×2 (08:03→21:52)
[2023-06-02] MEDS: DAPAGLIFLOZIN PROPANEDIOL 10 MG TABLET PEG/G-TUBE SCH (08:03)
[2023-06-02] MEDS: SERTRALINE 25 MG TAB PEG/G-TUBE SCH (08:04)
[2023-06-02] MEDS: LACOSAMIDE 150 MG TABLET PEG/G-TUBE SCH ×2 (08:13→21:52)
[2023-06-02] MEDS: CEFDINIR ORAL SUSP 1,500 MG/60 ML BOTTLE PEG/G-TUBE SCH ×2 (09:00→21:51)
[2023-06-02] MEDS: BUDESONIDE 0.5 MG/2 ML NEBU INHALATION SCH ×2 (09:38→20:09)
[2023-06-02] MEDS: IPRATROPIUM-ALBUTEROL 3 ML NEB INHALATION SCH ×4 (09:38→20:09)
[2023-06-02] MEDS: CHOLESTYRAMINE (WITH SUGAR) 4 GM PACKET PEG/G-TUBE SCH ×2 (11:38→16:51)
[2023-06-02 12:00] LABS: Glucose,Whole Blood 112 mg/dL (70-110)
--- NOTE | 2023-06-02 14:47 | P.PN ---
Subjective Progress Note Date: 06/02/23 Principal diagnosis: Urinary tract infection Patient is a 63-year-old -[place] female with a past medical history significant for hypertension hyperlipidemia osteoarthritis CVA TIA with recurrent UTIs and pneumonia the patient was brought into the hospital for evaluation of weakness mental status changes , patient did have positive UA concerning for symptomatic in her tract infection. Patient is status post PEG tube replacement on 06/15/2023 On today's evaluation that is 06/02/2023, the patient continues to be afebrile, the patient is breathing comfortably on room air and no need for supplemental oxygen, the patient denies any chest pain or cough , patient denies nausea/vomiting or diarrhea , no abdominal pain White count white count is mildly elevated at 13.09 creatinine 0.7 as of yesterday, no lab draws today Objective - Vital Signs Vital signs: Vital Signs Temp 99.4 F 06/02/23 07:06 Pulse 96 06/02/23 09:53 Resp 17 06/02/23 07:06 BP 156/86 06/02/23 07:06 Pulse Ox 95 06/02/23 07:06 FiO2 Intake & Output 06/01/23 06/02/23 06/02/23 18:59 06:59 18:59 Intake Total 237 Output Total 400 400 Balance -400 -400 237 Weight 43.5 kg 60 kg Intake: Tube Feeding 237 Output: Urine 400 400 Other: Voiding Method External Catheter External Catheter External Catheter # Voids 1 # Bowel Movements 1 1 - Exam GENERAL DESCRIPTION: An elderly female lying in bed in no distress RESPIRATORY SYSTEM: Unlabored breathing , clear to auscultation anteriorly HEART: S1 S2 regular rate and rhythm , ABDOMEN: Soft , no tenderness EXTREMITIES: No edema feet - Labs CBC & Chem 7: 06/01/23 12:30 06/01/23 12:30 Labs: Abnormal Lab Results - Last 24 Hours (Table) 06/01/23 06/01/23 06/01/23 Range/Units 12:30 12:30 16:58 WBC 13.09 H (4.50-10.00) X 10*3/uL RBC 3.47 L (4.10-5.20) X 10*6/uL Hgb 8.7 L (12.0-15.0) d/dL Hct 28.5 L (37.2-46.3) % MCH 25.1 L (27.0-32.0) pg MCHC 30.5 L (32.0-37.0) d/dL RDW 18.8 H (11.5-14.5) % Plt Count 464 H (140-440) X 10*3/uL Neutrophils # 10.48 H (1.80-7.70) X 10*3/uL Monocytes # 1.15 H (0.20-1.00) X 10*3/uL Eosinophils # 0.02 L (0.04-0.35) X 10*3/uL NRBC/100 WBC Diff 0.08 H (0.00-0.01) X 10*3/uL Chloride 111 H (96-109) mmol/L Carbon Dioxide 16.7 L (21.6-31.8) mmol/L Anion Gap 12.30 H (4.00-12.00) mmol/L BUN/Creatinine Ratio 24.00 H (12.00-20.00) Ratio Glucose 114 H (70-110) mg/dL POC Glucose (mg/dL) 154 H (70-110) mg/dL Total Bilirubin 0.2 L (0.3-1.2) mg/dL Alkaline Phosphatase 130 H (41-126) U/L Albumin 3.2 L (3.8-4.9) d/dL Albumin/Globulin Ratio 1.07 L (1.60-3.17) Ratio 06/02/ Range/Units 11:58 WBC (4.50-10.00) X 10*3/uL RBC (4.10-5.20) X 10*6/uL Hgb (12.0-15.0) d/dL Hct (37.2-46.3) % MCH (27.0-32.0) pg MCHC (32.0-37.0) d/dL RDW (11.5-14.5) % Plt Count (140-440) X 10*3/uL Neutrophils # (1.80-7.70) X 10*3/uL Monocytes # (0.20-1.00) X 10*3/uL Eosinophils # (0.04-0.35) X 10*3/uL NRBC/100 WBC Diff (0.00-0.01) X 10*3/uL Chloride (96-109) mmol/L Carbon Dioxide (21.6-31.8) mmol/L Anion Gap (4.00-12.00) mmol/L BUN/Creatinine Ratio (12.00-20.00) Ratio Glucose (70-110) mg/dL POC Glucose (mg/dL) 112 H (70-110) mg/dL Total Bilirubin (0.3-1.2) mg/dL Alkaline Phosphatase (41-126) U/L Albumin (3.8-4.9) d/dL Albumin/Globulin Ratio (1.60-3.17) Ratio Assessment and Plan (1) UTI (urinary tract infection) Current Visit: Yes Status: Acute Code(s): N39.0 - URINARY TRACT INFECTION, S ITE NOT SPECIFIED SNOMED Code(s): 54111027 Plan: 1patient present to hospital with weakness mental status changes likely multifactorial did have a component of UTI as patient has significantly positive UA also elevated white count likely from enteric gram-negative pathogen 2 heel stage III pressure ulcer with some slough tissue will benefit from Medihoney and keeping the area of the pressure 3-Patient has shown clinical improvement and repeat UA has shown improvement , patient received adequate antibiotic for underlying UTI white count mildly elevated patient is to be high risk for yeast infection we'll give her dose of Diflucan and see response Time with Patient: Less than 30
[2023-06-02] MEDS: FLUCONAZOLE 100 MG TAB PO SCH (15:12)
--- NOTE | 2023-06-02 15:26 | P.DS ---
Providers Date of admission: 05/24/23 21:28 Expected date of discharge: 06/02/23 Attending physician: Mohit Harley Consults: 05/25/23 10:49 Consult Physician Urgent Consulting Provider: Sylwia Spivey Consult Reason/Comments: serizure Do you want consulting provider notified?: Yes 05/25/23 10:51 Consult Physician Routine Consulting Provider: Raffaele Tristan Consult Reason/Comments: UTI Do you want consulting provider notified?: Already Contacted Primary care physician: [facility] Course: 06/02/2023, patient overall doing well awake and alert in no respiratory distress present already by mouth well additional nutritional support done by PEG tube, labs reviewed white cell count is 13, hemoglobin remained at 8.7/28 platelet of 464 chemistry within normal limit with BUN/creatinine of 16/0.7 potassium 4.6H and is being planned for discharge later on today 06/01/2023, overall no significant change, patient care plan discussed with the discharge planning nurse likely will be discharged will repeat labs prior to discharge this patient has a history of hypokalemia, remains on broad-spectrum antibiotics ID service has been following, currently patient is on Omnicef 05/31/2023, awake and alert, responding no obvious distress present, he remains unaware saturation mid 90s, patient tolerating by mouth him through G-tube well, there is some concern from the family reported to the RN about the PEG tube, will discuss awaiting their advice, will repeat the labs 05/30/2023, patient is doing well status post PEG tube placement, additional nutritional support given through there, discussed with dietitian patient can swallow diet as per recommendation, patient breathing comfortably on room air and obvious distress present, wants to get up from the bed to the bedside, discussed with RN and staff 05/29/2023, patient seen eval reexamined during the rounds, awake and alert, status post PEG tube placement, general surgery is following our dietitian to s tart to feed if needed 05/28/2023, patient seen eval examined examined, patient however has been nothing by mouth but is as per speech therapy can be started on by mouth, PEG tube is 4 nutritional support as well as meds, patient is scheduled for EGD and PEG tube exchange 05/27/2023, patient seen eval examined during rounds labs reviewed medications reviewed awake and alert, denies any chest pain, patient has had difficulty in tolerating tube feed with high residuals, the every feed port is fractured and taped, review of the records revealed that Dr. Richy diaz put the gastrostomy tube feed in will reconsult him for tube exchange if neededher like activity noted, patient on broad-spectrum antibiotics tolerating well 05/26/2023, patient seen eval examined during rounds labs reviewed medications reviewed patient is awake and alert, communicative, sinus present bedside no obvious distress present, culture results are not available, patient remains on IV Rocephin continued on home medications, responding appropriately This is a another admitted for 63-year-old female admitted to the emergency department not much data can be obtained from her, data predominantly obtained from the chart patient somnolent but arousable, patient admitted to hospital with confusion and altered mental status and has been more weaker than usual with decreased responsiveness those symptoms have going on for a few days getting worse over the period time. Patient is on outpatient basis on antidepressant antihypertensive diuretic oral anticoagulant diuretics and anti- seizure medicine, reportedly patient had episodes of seizure as well. On arrival patient was tachycardic with heart rate of 102 hemodynamic status stable, saturations 95% labs were significant were leukocytosis with WBC count of 15.1 hemoglobin and hematocrit is 8.7/28 platelet count of 511, sodium was 140 machine 5.1 BUN/creatinine is 38/0.69 improved from 46/0.91 Anna was within normal limit LFTs slightly elevated with alk phos of 210 AST/80s 70s/36 urine analysis turbid urine with large leukocyte esterase many wbc RBC many bacteria. Patient remained continued on her home medicine in addition has been started on IV Rocephin Assessment: Altered mental status secondary due to Sepsis Sepsis associated urinary tract infection Urinary tract infection Seizure-like activity Broken PEG tube, high risk for aspiration status post PEG tube lately however patient eating by mouth active is being used for medications and nutritional supplemental support status post PEG tube change by Dr. Lockhart History of CVA Heart failure Procedures: PEG tube replacement by Dr. Epstein Patient Condition at Discharge: Fair Plan - Discharge Summary Discharge Rx Participant: Yes New Discharge Prescriptions: No Action risperiDONE [RisperDAL] 1 mg PEG/G-TUBE HS Sertraline [Zoloft] 25 mg PEG/G-TUBE DAILY Sertraline [Zoloft] 100 mg PEG/G-TUBE DAILY haloperidoL [Haldol] 2.5 mg PEG/G-TUBE Q12H Metoprolol Tartrate [Lopressor] 25 mg PEG/G-TUBE BID Ipratropium-Albuterol Nebulize [Duoneb 0.5 mg-3 mg/3 ml Soln] 3 ml INHALATION RT-QID 30 Days #120 each Budesonide [Pulmicort] 0.5 mg INHALATION RT-BID 30 Days #60 ml Ondansetron [Zofran] 4 mg PEG/G-TUBE Q6H PRN PRN Reason: Nausea Losartan [Cozaar] 25 mg PEG/G-TUBE DAILY Divalproex Sprinkle [Depakote Sprinkle] 125 mg PEG/G-TUBE BID Dapagliflozin Propanediol [Farxiga] 10 mg PEG/G-TUBE DAILY Furosemide [Lasix] 20 mg PEG/G-TUBE DAILY Ascorbic Acid [Vitamin C] 250 mg PEG/G-TUBE DAILY Apixaban [Eliquis] 5 mg PEG/G-TUBE BID predniSONE [Deltasone] 40 mg PEG/G-TUBE DAILY Loperamide [Imodium] 2 mg PO QID PRN PRN Reason: Diarrhea Cholestyramine (with Sugar) [Cholestyramine Packet] 4 gm PEG/G-TUBE BID Lacosamide [Vimpat] 150 mg PEG/G-TUBE BID Discharge Medication List Sertraline [Zoloft] 25 mg PEG/G-TUBE DAILY 07/03/22 [History] Sertraline [Zoloft] 100 mg PEG/G-TUBE DAILY 07/03/22 [History] risperiDONE [RisperDAL] 1 mg PEG/G-TUBE HS 07/03/22 [History] Ascorbic Acid [Vitamin C] 250 mg PEG/G-TUBE DAILY 02/18/23 [History] Metoprolol Tartrate [Lopressor] 25 mg PEG/G-TUBE BID 02/18/23 [History] haloperidoL [Haldol] 2.5 mg PEG/G-TUBE Q12H 02/18/23 [History] Budesonide [Pulmicort] 0.5 mg INHALATION RT-BID 30 Days #60 ml 02/25/23 [Rx] Ipratropium-Albuterol Nebulize [Duoneb 0.5 mg-3 mg/3 ml Soln] 3 ml INHALATION RT-QID 30 Days #120 each 02/25/23 [Rx] Apixaban [Eliquis] 5 mg PEG/G-TUBE BID 05/02/23 [History] Dapagliflozin Propanediol [Farxiga] 10 mg PEG/G-TUBE DAILY 05/02/23 [History] Divalproex Sprinkle [Depakote Sprinkle] 125 mg PEG/G-TUBE BID 05/02/23 [History] Furosemide [Lasix] 20 mg PEG/G-TUBE DAILY 05/02/23 [History] Losartan [Cozaar] 25 mg PEG/G-TUBE DAILY 05/02/23 [History] Ondansetron [Zofran] 4 mg PEG/G-TUBE Q6H PRN 05/02/23 [History] predniSONE [Deltasone] 40 mg PEG/G-TUBE DAILY 05/02/23 [History] Cholestyramine (with Sugar) [Cholestyramine Packet] 4 gm PEG/G-TUBE BID 05/24/23 [History] Lacosamide [Vimpat] 150 mg PEG/G-TUBE BID 05/24/23 [History] Loperamide [Imodium] 2 mg PO QID PRN 05/24/23 [History] Follow up Appointment(s)/Referral(s): Mohit Harley MD [Primary Care Provider] - 1-2 days [facility], [NON-STAFF] - As Needed Care,[facility] [NON-STAFF] - As Needed [facility], [REFERRING] - As Needed
[2023-06-02 17:02] LABS: Glucose,Whole Blood 125 mg/dL (70-110)
[2023-06-02 20:51] LABS: Glucose,Whole Blood 113 mg/dL (70-110)
[2023-06-02] MEDS: oxyCODONE-APAP 10-325MG 1 EACH TAB PEG/G-TUBE PRN (21:51)
[2023-06-02] MEDS: risperiDONE 1 MG TAB PEG/G-TUBE SCH (21:52)
[2023-06-03 05:48] LABS: Glucose,Whole Blood 79 mg/dL (70-110)
[2023-06-03] MEDS: BUDESONIDE 0.5 MG/2 ML NEBU INHALATION SCH (09:22)
[2023-06-03] MEDS: IPRATROPIUM-ALBUTEROL 3 ML NEB INHALATION SCH ×3 (09:22→16:38)
[2023-06-03] MEDS: SODIUM CHLORIDE 0.9% 1,000 ML IV SCH (09:32)
[2023-06-03 09:42] LABS: Anisocytosis Slight; Basophils % (A) 0 %; Eosinophils # (A) 0.1 k/uL (0-0.7); Eosinophils % (A) 1 %; HCT 25.7 % (34.0-46.0); HGB 7.6 gm/dL (11.4-16.0); Hypochromasia Marked; Lymphocytes # (A) 2.6 k/uL (1.0-4.8); Lymphocytes % (A) 24 %; MCH 25.3 pg (25.0-35.0); MCHC 29.5 g/dL (31.0-37.0); Mean Platelet Volume 8.1; Monocytes % (A) 9 %; Neutrophils # (A) 7.1 k/uL (1.3-7.7); Neutrophils % (A) 65 %; Platelet Count 351 k/uL (150-450); Poikilocytosis Slight; RBC 2.98 m/uL (3.80-5.40); RDW 18.4 % (11.5-15.5); WBC 10.9 k/uL (3.8-10.6)
[2023-06-03] MEDS: ASCORBIC ACID 500 MG TAB PEG/G-TUBE SCH (09:48)
[2023-06-03] MEDS: DAPAGLIFLOZIN PROPANEDIOL 10 MG TABLET PEG/G-TUBE SCH (09:49)
[2023-06-03] MEDS: CEFDINIR ORAL SUSP 1,500 MG/60 ML BOTTLE PEG/G-TUBE SCH (09:49)
[2023-06-03] MEDS: DIVALPROEX SPRINKLE 125 MG CAP.SPRINK PEG/G-TUBE SCH (09:49)
[2023-06-03] MEDS: haloperidoL 5 MG TAB PEG/G-TUBE SCH (09:50)
[2023-06-03] MEDS: FUROSEMIDE 20 MG TAB PEG/G-TUBE SCH (09:50)
[2023-06-03] MEDS: FLUCONAZOLE 100 MG TAB PO SCH (09:50)
[2023-06-03] MEDS: METOPROLOL TARTRATE 25 MG TAB PEG/G-TUBE SCH (09:51)
[2023-06-03] MEDS: predniSONE 20 MG TAB PEG/G-TUBE SCH (09:51)
[2023-06-03] MEDS: LOSARTAN 25 MG TAB PEG/G-TUBE SCH (09:51)
[2023-06-03] MEDS: LACOSAMIDE 150 MG TABLET PEG/G-TUBE SCH (09:51)
[2023-06-03] MEDS: SERTRALINE 25 MG TAB PEG/G-TUBE SCH (09:52)
[2023-06-03] MEDS: SERTRALINE 100 MG TAB PEG/G-TUBE SCH (09:52)
[2023-06-03 10:14] VITALS: BP 153/68; RESP 17; TEMP 97.9
[2023-06-03 11:46] LABS: Glucose,Whole Blood 128 mg/dL (70-110)
[2023-06-03 12:09] LABS: African American GFR (CKD) >90 (>60 ml/min/1.73 sqM); Anion Gap 10 mmol/L; Blood Urea Nitrogen 24 mg/dL (7-17); C Reactive Protein 1.6 mg/dL (<1.0); Carbon Dioxide 15 mmol/L (22-30); Chloride 115 mmol/L (98-107); Glucose 105 mg/dL (74-99); Non-African American GFR(CKD) >90 (>60 ml/min/1.73 sqM); Sodium 140 mmol/L (137-145)
[2023-06-03 12:23] LABS: Calcium 8.7 mg/dL (8.4-10.2)
[2023-06-03] MEDS: CHOLESTYRAMINE (WITH SUGAR) 4 GM PACKET PEG/G-TUBE SCH ×2 (12:34→16:47)
[2023-06-03 16:30] LABS: Glucose,Whole Blood 129 mg/dL (70-110)
[2023-06-03 17:11] VITALS: PULSE 102
== END 2023-06-03 18:37 | disposition home health service (06) | DRG 871 ==
LOC: EC 19:56 → 5NMEDONC 21:28 → OBSVTOIN 21:28 → 5NMEDONC 05-25 05:24 → 4SSUR 05-25 05:53
PROVIDERS: ADMIT Family Medicine; ATTEND Family Medicine
PROC: 0D20XUZ Change Feeding Device in Upper Intestinal Tract, External Approach (ICD-10-PCS; principal; 2023-05-28 11:40)
DX: A41.9 Sepsis, unspecified organism (principal); L89.623 Pressure ulcer of left heel, stage 3; N39.0 Urinary tract infection, site not specified; F20.0 Paranoid schizophrenia; K94.23 Gastrostomy malfunction; I69.354 Hemiplegia and hemiparesis following cerebral infarction affecting left non-dominant side; E46 Unspecified protein-calorie malnutrition; M10.9 Gout, unspecified; E78.5 Hyperlipidemia, unspecified; F32.A Depression, unspecified; L89.899 Pressure ulcer of other site, unspecified stage; G40.909 Epilepsy, unspecified, not intractable, without status epilepticus; I11.0 Hypertensive heart disease with heart failure; F10.10 Alcohol abuse, uncomplicated; D64.9 Anemia, unspecified; I50.9 Heart failure, unspecified; F01.50 Vascular dementia, unspecified severity, without behavioral disturbance, psychotic disturbance, mood disturbance, and anxiety; Z74.01 Bed confinement status; Z79.899 Other long term (current) drug therapy; Z79.01 Long term (current) use of anticoagulants; Z87.891 Personal history of nicotine dependence; Z87.440 Personal history of urinary (tract) infections; Z87.01 Personal history of pneumonia (recurrent); Z86.14 Personal history of Methicillin resistant Staphylococcus aureus infection
CPT/HCPCS: 36415; 43246; 80048; 80053; 80320; 81001; 82140; 83690; 83735; 84100; 85025; 85027; 86140; 94640; 96361; 96365; 96375; 99285

== ENCOUNTER 2023-11-27 19:32 | Emergency (ER) | payer MEDICARE ==
[2023-11-27 19:58] VITALS: RESP 20; TEMP 97.8
--- NOTE | 2023-11-27 20:36 | ED ---
General Adult HPI - General Chief complaint: Recheck/Abnormal Lab/Rx Stated complaint: Loose peg tube Time Seen by Provider: 11/27/23 19:36 Source: patient, EMS, RN notes reviewed, old records reviewed Mode of arrival: EMS Limitations: no limitations - History of Present Illness Initial comments: 63-year-old female presenting with dislodged PEG tube. No other complaints. PEG tube was placed many months ago. - Related Data Home Medications Medication Instructions Recorded Confirmed Sertraline [Zoloft] 25 mg PEG/G-TUBE DAILY 07/03/22 05/24/23 Sertraline [Zoloft] 100 mg PEG/G-TUBE DAILY 07/03/22 05/24/23 risperiDONE [RisperDAL] 1 mg PEG/G-TUBE HS 07/03/22 05/24/23 Ascorbic Acid [Vitamin C] 250 mg PEG/G-TUBE DAILY 02/18/23 05/24/23 Metoprolol Tartrate [Lopressor] 25 mg PEG/G-TUBE BID 02/18/23 05/24/23 haloperidoL [Haldol] 2.5 mg PEG/G-TUBE Q12H 02/18/23 05/24/23 Apixaban [Eliquis] 5 mg PEG/G-TUBE BID 05/02/23 05/24/23 Dapagliflozin Propanediol [Farxiga] 10 mg PEG/G-TUBE DAILY 05/02/23 05/24/23 Divalproex Sprinkle [Depakote 125 mg PEG/G-TUBE BID 05/02/23 05/24/23 Sprinkle] Furosemide [Lasix] 20 mg PEG/G-TUBE DAILY 05/02/23 05/24/23 Losartan [Cozaar] 25 mg PEG/G-TUBE DAILY 05/02/23 05/24/23 Ondansetron [Zofran] 4 mg PEG/G-TUBE Q6H PRN 05/02/23 05/24/23 predniSONE [Deltasone] 40 mg PEG/G-TUBE DAILY 05/02/23 05/24/23 Cholestyramine (with Sugar) 4 gm PEG/G-TUBE BID 05/24/23 05/24/23 [Cholestyramine Packet] Lacosamide [Vimpat] 150 mg PEG/G-TUBE BID 05/24/23 05/24/23 Loperamide [Imodium] 2 mg PO QID PRN 05/24/23 05/24/23 Previous Rx's Medication Instructions Recorded Budesonide [Pulmicort] 0.5 mg INHALATION RT-BID 30 Days 02/25/23 #60 ml Ipratropium-Albuterol Nebulize 3 ml INHALATION RT-QID 30 Days 02/25/23 [Duoneb 0.5 mg-3 mg/3 ml Soln] #120 each Allergies Allergy/AdvReac Type Severity Reaction Status Date / Time hydromorphone [From Dilaudid] Allergy Swelling Verified 11/27/23 19:58 morphine Allergy Swelling Verified 11/27/23 19:58 Review of Systems ROS Statement: Those systems with pertinent positive or pertinent negative responses have been documented in the HPI. ROS Other: All systems not noted in ROS Statement are negative. 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 gout, PANCREATITIS, pseudoseizures, UTI, gallstones, tremors, hx multiple brain aneursyms, pressure injuries to right calf and left heel History of Any Multi-Drug Resistant Organisms: ESBL, MRSA Date of last positivie culture/infection: 02/03/23-MRSA; 03/18/18 ESBL MDRO Source:: Right Lateral Calf- MRSA; Urine-ESBL Past Surgical History: Section, Cholecystectomy, Orthopedic Surgery Additional Past Surgical History / Comment(s): hx aneurysms- COILS AND STENTS TO BRAIN, repair tendons r/t gout BILATERAL FEET; Pain pump inserted on 04/21/22 Past Anesthesia/Blood Transfusion Reactions: No Reported Reaction Additional Past Anesthesia/Blood Transfusion Reaction / Comment(s): PT HAS HAD BLOOD TRANSFUSIONS FOR ANEMIA-NO REACTION. Past Psychological History: Anxiety, Depression, Schizophrenia Smoking Status: Former smoker Past Alcohol Use History: None Reported Past Drug Use History: None Reported - Past Family History Sister(s) Family Medical History: Myocardial Infarction ([place]) Father Family Medical History: Cancer Additional Family Medical History / Comment(s): throat, lung, and rectal cancer Mother Family Medical History: Myocardial Infarction ([place]) Additional Family Medical History / Comment(s): stroke General Exam Limitations: no limitations General appearance: alert, in no apparent distress Eye exam: Present: normal appearance, PERRL ENT exam: Present: mucous membranes moist Respiratory exam: Present: normal lung sounds bilaterally. Absent: respiratory distress, wheezes Cardiovascular Exam: Present: regular rate, normal rhythm GI/Abdominal exam: Present: other (PEG tube out, PEG tube os is nonerythematous, no active bleeding). Absent: distended, tenderness Course Vital Signs 11/27/23 19:35 Temperature 97.8 F Pulse Rate 110 H Respiratory 20 Rate Blood Pressure 146/86 O2 Sat by Pulse 98 Oximetry Procedures - Feeding Tube Replacement Reason for Replacement: fell out Initial Tube Inserted: greater than 2 weeks Type of Tube: gastrostomy Use of Tube: medications and feeding Insertion Site Prior to Procedure: clean Tube Used for Reinsertion: other (New 20 Albanian DUKE tube) Albanian Tube Size (F): 20 Balloon Size (mls): 10 Verification of Placement: gastrografin injection Tube Secured by: tape/dressing Patient Tolerated Procedure: well Medical Decision Making - Medical Decision Making Was pt. sent in by a medical professional or institution ([facility], [facility], urgent care, hospital, or half-way...) When possible be specific @ -No Did you speak to anyone other than the patient for history (EMS, parent, family, police, friend...)? What history was obtained from this source @ -Patient's caregiver Did you review nursing and triage notes (agree or disagree)? Why? @ -I reviewed and agree with nursing and triage notes Were old charts reviewed (outside hosp., previous admission, EMS record, old EKG, old radiological studies, urgent care reports/EKG's, half-way records)? Report findings @ -No old charts were reviewed Differential Diagnosis dislodged PEG tube EKG interpreted by me (3pts min.). @ -As above X-rays interpreted by me (1pt min.). @KUB with contrast showing satisfactory placement without extravasation CT interpreted by me (1pt min.). @ -None done U/S interpreted by me (1pt. min.). @ -None done What testing was considered but not performed or refused? (CT, X-rays, U/S, labs)? Why? @ -None What meds were considered but not given or refused? Why? @ -None Did you discuss the management of the patient with other professionals (professionals i.e. , PA, [facility], lab, RT, psych nurse, manager social responsibility, fishing captain, teacher, radiation safety officer, manager medical writing)? Give summary @ -No Was smoking cessation discussed for >3mins.? @ -No Was critical care preformed (if so, how long)? @ -No Were there social determinants of health that impacted care today? How? (H omelessness, low income, unemployed, alcoholism, drug addiction, transportation, low edu. Level, literacy, decrease access to med. care, skilled nursing, rehab)? @ -No Was there de-escalation of care discussed even if they declined (Discuss DNR or withdrawal of care, Hospice)? DNR status @ -No What co-morbidities impacted this encounter? (DM, HTN, Smoking, COPD, CAD, Cancer, CVA, ARF, Chemo, Hep., AIDS, mental health diagnosis, sleep apnea, morbid obesity)? @ -None Was patient admitted / discharged? Hospital course, mention meds given and route, prescriptions, significant lab abnormalities, going to OR and other pertinent info. @PEG tube replaced, stable for discharge Undiagnosed new problem with uncertain prognosis? @ -No Drug Therapy requiring intensive monitoring for toxicity (Heparin, Nitro, Insulin, Cardizem)? @ -No Were any procedures done? @Yes, PEG tube replaced Diagnosis/symptom? @Dislodged PEG tube Acute, or Chronic, or Acute on Chronic? @ -Default Uncomplicated (without systemic symptoms) or Complicated (systemic symptoms)? @ -Default Side effects of treatment? @ -No Exacerbation, Progression, or Severe Exacerbation? @ -No Poses a threat to life or bodily function? How? (Chest pain, [place], [place], pneumonia, PE, COPD, DKA, ARF, appy, cholecystitis, CVA, Diverticulitis, Homicidal, Suicidal, threat to staff... and all critical care pts) @ -No Disposition Clinical Impression: PEG tube malfunction Disposition: HOME SELF-CARE Condition: Fair Instructions (If sedation given, give patient instructions): PEG Tube Insertion (DC) Is patient prescribed a controlled substance at d/c from ED?: No Referrals: Mohit Harley MD [Primary Care Provider] - 1-2 days Time of Disposition: 20:45
[2023-11-27] MEDS: IBUPROFEN 600 MG TAB PO STA (21:09)
[2023-11-27 21:59] VITALS: BP 135/58; PULSE 92
--- NOTE | 2023-11-27 23:12 | XR ---
EXAMINATION TYPE: XR KUB DATE OF EXAM: 11/27/2023 8:52 PM CLINICAL INDICATION:Female, 63 years old with history of PEG a gram; [facility] COMPARISON: 05/04/2023 TECHNIQUE: AP portable supine view of the abdomen was obtained after apparent contrast injection thro ugh the patient's PEG tube. There is contrast seen within the tube and the lumen of the distal gastric body as well portions of t he duodenum without evidence of obstruction. An infusion pump device is seen over the left lower abdo men. Visualized bowel gas pattern is nonobstructive. No pathologic calcifications can be seen. No osseous acute abnormality seen. Mild levocurvature of the spine. FINDINGS: The bowel gas pattern is nonspecific, likely nonobstructive without dilated loops of small or large b owel. Fecal material and gas are demonstrated throughout the colon and rectum. No gross evidence of o rganomegaly. No evidence of pneumoperitoneum in the limitations of supine technique. No pathologic ca lcifications are seen. Osseous structures appear grossly intact. IMPRESSION: PEG tube injection shows intraluminal contrast in the distal stomach and proximal small bowel. No kate ss evidence of extravasation on this single supine view.
== END 2023-11-27 22:28 | disposition home or self-care (01) ==
LOC: EC 19:32
DX: K94.23 Gastrostomy malfunction (principal); Z87.891 Personal history of nicotine dependence; Z88.5 Allergy status to narcotic agent; Z90.49 Acquired absence of other specified parts of digestive tract; Z86.73 Personal history of transient ischemic attack (TIA), and cerebral infarction without residual deficits
CPT/HCPCS: 43762; 74018; 99284

== ENCOUNTER 2024-04-07 14:06 | Emergency (ER) | payer MEDICARE ==
[2024-04-07 14:18] VITALS: BP 178/81; PULSE 78; RESP 18; TEMP 98.2
--- NOTE | 2024-04-07 14:27 | ED ---
General Adult HPI - General Chief complaint: Wound/Laceration Stated complaint: Pulled out Feeding Tube Time Seen by Provider: 04/07/24 14:10 Source: patient, EMS, RN notes reviewed, old records reviewed Mode of arrival: EMS Limitations: altered mental status - History of Present Illness Initial comments: This is a 63-year-old female who presents to the emergency department because her PEG tube was excellently pulled out. There are no other complaints at this time. Has been in for quite a long time - Related Data Home Medications Medication Instructions Recorded Confirmed Sertraline [Zoloft] 25 mg PEG/G-TUBE DAILY 07/03/22 05/24/23 Sertraline [Zoloft] 100 mg PEG/G-TUBE DAILY 07/03/22 05/24/23 risperiDONE [RisperDAL] 1 mg PEG/G-TUBE HS 07/03/22 05/24/23 Ascorbic Acid [Vitamin C] 250 mg PEG/G-TUBE DAILY 02/18/23 05/24/23 Metoprolol Tartrate [Lopressor] 25 mg PEG/G-TUBE BID 02/18/23 05/24/23 haloperidoL [Haldol] 2.5 mg PEG/G-TUBE Q12H 02/18/23 05/24/23 Apixaban [Eliquis] 5 mg PEG/G-TUBE BID 05/02/23 05/24/23 Dapagliflozin Propanediol [Farxiga] 10 mg PEG/G-TUBE DAILY 05/02/23 05/24/23 Divalproex Sprinkle [Depakote 125 mg PEG/G-TUBE BID 05/02/23 05/24/23 Sprinkle] Furosemide [Lasix] 20 mg PEG/G-TUBE DAILY 05/02/23 05/24/23 Losartan [Cozaar] 25 mg PEG/G-TUBE DAILY 05/02/23 05/24/23 Ondansetron [Zofran] 4 mg PEG/G-TUBE Q6H PRN 05/02/23 05/24/23 predniSONE [Deltasone] 40 mg PEG/G-TUBE DAILY 05/02/23 05/24/23 Cholestyramine (with Sugar) 4 gm PEG/G-TUBE BID 05/24/23 05/24/23 [Cholestyramine Packet] Lacosamide [Vimpat] 150 mg PEG/G-TUBE BID 05/24/23 05/24/23 Loperamide [Imodium] 2 mg PO QID PRN 05/24/23 05/24/23 Previous Rx's Medication Instructions Recorded Budesonide [Pulmicort] 0.5 mg INHALATION RT-BID 30 Days 02/25/23 #60 ml Ipratropium-Albuterol Nebulize 3 ml INHALATION RT-QID 30 Days 02/25/23 [Duoneb 0.5 mg-3 mg/3 ml Soln] #120 each Allergies Allergy/AdvReac Type Severity Reaction Status Date / Time hydromorphone [From Dilaudid] Allergy Swelling Verified 11/27/23 19:58 morphine Allergy Swelling Verified 11/27/23 19:58 Review of Systems ROS Statement: Those systems with pertinent positive or pertinent negative responses have been documented in the HPI. ROS Other: All systems not noted in ROS Statement are negative. 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 gout, PANCREATITIS, pseudoseizures, UTI, gallstones, tremors, hx multiple brain aneursyms, pressure injuries to right calf and left heel History of Any Multi-Drug Resistant Organisms: ESBL, MRSA Date of last positivie culture/infection: 02/03/23-MRSA; 03/18/18 ESBL MDRO Source:: Right Lateral Calf- MRSA; Urine-ESBL Past Surgical History: Section, Cholecystectomy, Orthopedic Surgery Additional Past Surgical History / Comment(s): hx aneurysms- COILS AND STENTS TO BRAIN, repair tendons r/t gout BILATERAL FEET; Pain pump inserted on 04/21/22 Past Anesthesia/Blood Transfusion Reactions: No Reported Reaction Additional Past Anesthesia/Blood Transfusion Reaction / Comment(s): PT HAS HAD BLOOD TRANSFUSIONS FOR ANEMIA-NO REACTION. Past Psychological History: Anxiety, Depression, Schizophrenia Smoking Status: Former smoker Past Alcohol Use History: None Reported Past Drug Use History: None Reported - Past Family History Sister(s) Family Medical History: Myocardial Infarction ([place]) Father Family Medical History: Cancer Additional Family Medical History / Comment(s): throat, lung, and rectal cancer Mother Family Medical History: Myocardial Infarction ([place]) Additional Family Medical History / Comment(s): stroke General Exam - General Exam Comments Initial Comments: GENERAL: Patient is well-developed and well-nourished. Patient is nontoxic and well- hydrated and is in no acute distress. ENT: Neck is soft and supple. No significant lymphadenopathy is noted. Oropharynx is clear. Moist mucous membranes. Neck has full range of motion without eliciting any pain. EYES: The sclera were anicteric and conjunctiva were pink and moist. Extraocular movements were intact and pupils were equal round and reactive to light. Eyelids were unremarkable. ABDOMEN: Soft and nontender with normal bowel sounds. Since orifice for the tube was leaking. No tenderness SKIN: Skin is clear with no lesions or rashes and otherwise unremarkable. NEUROLOGIC: Patient is alert and oriented per EMS. Limitations: altered mental status Course Vital Signs 04/07/24 14:09 Temperature 98.2 F Pulse Rate 78 Respiratory 18 Rate Blood Pressure 178/81 O2 Sat by Pulse 98 Oximetry Procedures - Feeding Tube Replacement Reason for Replacement: fell out Initial Tube Inserted: greater than 2 weeks Type of Tube: duodenostomy Use of Tube: medications and feeding Insertion Site Prior to Procedure: clean Tube Used for Reinsertion: other Verification of Placement: other (Gastric contents were able to be seen using a syringe) Tube Secured by: tape/dressing Patient Tolerated Procedure: well Medical Decision Making - Medical Decision Making Was pt. sent in by a medical professional or institution ([facility], [facility], urgent care, hospital, or [place] [facility]...) When possible be specific @ -No Did you speak to anyone other than the patient for history (EMS, parent, family, police, friend...)? What history was obtained from this source @ -EMS gave all the history Did you review nursing and triage notes (agree or disagree)? Why? @ -I reviewed and agree with nursing and triage notes Were old charts reviewed (outside hosp., previous admission, EMS record, old EKG, old radiological studies, urgent care reports/EKG's, [place] [facility] records)? Report findings @ -No old charts were reviewed Differential Diagnosis? @ -PEG tube replacement EKG interpreted by me (3pts min.). @ -As above X-rays interpreted by me (1pt min.). @ -None done CT interpreted by me (1pt min.). @ -None done U/S interpreted by me (1pt. min.). @ -None done What testing was considered but not performed or refused? (CT, X-rays, U/S, labs)? Why? @ -None What meds were considered but not given or refused? Why? @ -None Did you discuss the management of the patient with other professionals (professionals i.e. , PA, [facility], lab, RT, psych nurse, social studies teacher, applied behavior science specialist, teacher, financial aids officer, case management specialist)? Give summary @ -No Was smoking cessation discussed for >3mins.? @ -No Was critical care preformed (if so, how long)? @ -No Were there social determinants of health that impacted care today? How? (Homelessness, low income, unemployed, alcoholism, drug addiction, transportation, low edu. Level, literacy, decrease access to med. care, penitentiary, rehab)? @ -No Was there de-escalation of care discussed even if they declined (Discuss DNR or withdrawal of care, Hospice)? DNR status @ -No What co-morbidities impacted this encounter? (DM, HTN, Smoking, COPD, CAD, Cancer, CVA, ARF, Chemo, Hep., AIDS, mental health diagnosis, sleep apnea, morbid obesity)? @ -None Was patient admitted / discharged? Hospital course, mention meds given and route, prescriptions, significant lab abnormalities, going to OR and other per tinent info. @ -I initially placed the PEG tube and it went in fine but the came and stated that it was not the correct PEG tube so we had to find a second PEG tube and I put the PEG tube in and the patient we discharged home Undiagnosed new problem with uncertain prognosis? @ -No Drug Therapy requiring intensive monitoring for toxicity (Heparin, Nitro, Insulin, Cardizem)? @ -No Were any procedures done? @ -No Diagnosis/symptom? @ -PEG tube replacement Acute, or Chronic, or Acute on Chronic? @ -Acute Uncomplicated (without systemic symptoms) or Complicated (systemic symptoms)? @ -Uncomplicated Side effects of treatment? @ -No Exacerbation, Progression, or Severe Exacerbation? @ -No Poses a threat to life or bodily function? How? (Chest pain, [place], [place], pneumonia, PE, COPD, DKA, ARF, appy, cholecystitis, CVA, Diverticulitis, Homicidal, Suicidal, threat to staff... and all critical care pts) @ -No Disposition Clinical Impression: Encounter for feeding tube placement Disposition: HOME SELF-CARE Is patient prescribed a controlled substance at d/c from ED?: No Referrals: Mohit Harley MD [Primary Care Provider] - 1-2 days
[2024-04-07] MEDS: KETOROLAC 15 MG/ML 1 ML VIAL IM STA (14:36)
== END 2024-04-07 15:56 | disposition home or self-care (01) ==
LOC: EC 14:06
CPT/HCPCS: 43762; 96372; 99283

== ENCOUNTER 2024-12-02 15:31 | Emergency (ER) | payer OTHER, MEDICARE ==
--- NOTE | 2024-12-02 15:51 | ED ---
General Adult HPI - General Chief complaint: Recheck/Abnormal Lab/Rx Stated complaint: feeding tube out Time Seen by Provider: 12/02/24 15:34 Source: EMS Mode of arrival: EMS Limitations: physical limitation - History of Present Illness Initial comments: Dictation was produced using [employer] dictation software. please excuse any grammatical, word or spelling errors. Chief Complaint: 64yo Debilitated female presents emergency department for displaced feeding tube History of Present Illness: Patient is a 64-year-old female presents to the emergency department for displaced feeding tube. According to EMS patient's feeding tube fell out. EMS states that guardian request a specific type of feeding tube. The ROS documented in this emergency department record has been reviewed and confirmed by me. Those systems with pertinent positive or negative responses have been documented in the HPI. All other systems are other negative and/or noncontributory. - Related Data Home Medications Medication Instructions Recorded Confirmed Sertraline [Zoloft] 25 mg PEG/G-TUBE DAILY 07/03/22 05/24/23 Sertraline [Zoloft] 100 mg PEG/G-TUBE DAILY 07/03/22 05/24/23 risperiDONE [RisperDAL] 1 mg PEG/G-TUBE HS 07/03/22 05/24/23 Ascorbic Acid [Vitamin C] 250 mg PEG/G-TUBE DAILY 02/18/23 05/24/23 Metoprolol Tartrate [Lopressor] 25 mg PEG/G-TUBE BID 02/18/23 05/24/23 haloperidoL [Haldol] 2.5 mg PEG/G-TUBE Q12H 02/18/23 05/24/23 Apixaban [Eliquis] 5 mg PEG/G-TUBE BID 05/02/23 05/24/23 Dapagliflozin Propanediol [Farxiga] 10 mg PEG/G-TUBE DAILY 05/02/23 05/24/23 Divalproex Sprinkle [Depakote 125 mg PEG/G-TUBE BID 05/02/23 05/24/23 Sprinkle] Furosemide [Lasix] 20 mg PEG/G-TUBE DAILY 05/02/23 05/24/23 Losartan [Cozaar] 25 mg PEG/G-TUBE DAILY 05/02/23 05/24/23 Ondansetron [Zofran] 4 mg PEG/G-TUBE Q6H PRN 10/07/23 10/29/23 predniSONE [Deltasone] 40 mg PEG/G-TUBE DAILY 05/02/23 05/24/23 Cholestyramine (with Sugar) 4 gm PEG/G-TUBE BID 05/24/23 05/24/23 [Cholestyramine Packet] Lacosamide [Vimpat] 150 mg PEG/G-TUBE BID 05/24/23 05/24/23 Loperamide [Imodium] 2 mg PO QID PRN 05/24/23 05/24/23 Previous Rx's Medication Instructions Recorded Budesonide [Pulmicort] 0.5 mg INHALATION RT-BID 30 Days 02/25/23 #60 ml Ipratropium-Albuterol Nebulize 3 ml INHALATION RT-QID 30 Days 02/25/23 [Duoneb 0.5 mg-3 mg/3 ml Soln] #120 each Allergies Allergy/AdvReac Type Severity Reaction Status Date / Time hydromorphone [From Dilaudid] Allergy Swelling Verified 12/02/24 15:42 morphine Allergy Swelling Verified 12/02/24 15:42 Review of Systems ROS Statement: Those systems with pertinent positive or pertinent negative responses have been documented in the HPI. ROS Other: All systems not noted in ROS Statement are negative. 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 gout, PANCREATITIS, pseudoseizures, UTI, gallstones, tremors, hx multiple brain aneursyms, pressure injuries to right calf and left heel, feeding tube History of Any Multi-Drug Resistant Organisms: ESBL, MRSA Date of last positivie culture/infection: 02/03/23-MRSA; 03/18/18 ESBL MDRO Source:: Right Lateral Calf- MRSA; Urine-ESBL Past Surgical History: Section, Cholecystectomy, Orthopedic Surgery Additional Past Surgical History / Comment(s): hx aneurysms- COILS AND STENTS TO BRAIN, repair tendons r/t gout BILATERAL FEET; Pain pump inserted on 04/21/22 Past Anesthesia/Blood Transfusion Reactions: No Reported Reaction Additional Past Anesthesia/Blood Transfusion Reaction / Comment(s): PT HAS HAD BLOOD TRANSFUSIONS FOR ANEMIA-NO REACTION. Past Psychological History: Anxiety, Depression, Schizophrenia Smoking Status: Former smoker Past Alcohol Use History: None Reported Past Drug Use History: None Reported - Past Family History Sister(s) Family Medical History: Myocardial Infarction ([place]) Father Family Medical History: Cancer Additional Family Medical History / Comment(s): throat, lung, and rectal cancer Mother Family Medical History: Myocardial Infarction ([place]) Additional Family Medical History / Comment(s): stroke General Exam - General Exam Comments Initial Comments: General: Well-appearing, nontoxic, no acute distress. Head: Normocephalic, atraumatic Eyes: PERRLA, EOMI ENT: Airway patent Chest: Nonlabored breathing Skin: No visual rash, normal skin tone Neuro: Alert and oriented 3 Musculoskeletal: No gross abnormalities Limitations: physical limitation Course Vital Signs 12/02/24 15:34 Temperature 97.8 F Pulse Rate 87 Respiratory 20 Rate Blood Pressure 159/90 O2 Sat by Pulse 100 Oximetry Medical Decision Making - Medical Decision Making Was pt. sent in by a medical professional or institution (, PA, [employer], urgent care, hospital, or correction...) When possible be specific @ -No Did you speak to anyone other than the patient for history (EMS, parent, family, police, friend...)? What history was obtained from this source @ -See above Did you review nursing and triage notes (agree or disagree)? Why? @ -I reviewed and agree with nursing and triage notes Were old charts reviewed (outside hosp., previous admission, EMS record, old EKG, old radiological studies, urgent care reports/EKG's, correction records)? Report findings @ -No old charts were reviewed Differential Diagnosis (chest pain, altered mental status, abdominal pain women, abdominal pain men, vaginal bleeding, musculoskeletal, weakness, fever, dyspnea, syncope, headache, dizziness, GI bleed, back pain, seizure, CVA, palpatations, mental health)? @ -Not applicable EKG interpreted by me (3pts min.). @ -None done X-rays interpreted by me (1pt min.). @ -Abdominal x-ray shows adequate placement of feeding tube CT interpreted by me (1pt min.). @ -None done U/S interpreted by me (1pt. min.). @ -None done What testing was considered but not performed or refused? (CT, X-rays, U/S, labs)? Why? @ -None What meds were considered but not given or refused? Why? @ -None Was smoking cessation discussed for >3mins.? @ -No Were there social determinants of health that impacted care today? How? (Homelessness, low income, unemployed, alcoholism, drug addiction, transportation, low edu. Level, literacy, decrease access to med. care, alf, rehab)? @ -No Was there de-escalation of care discussed even if they declined (Discuss DNR or withdrawal of care, Hospice)? DNR status @ -No What co-morbidities impacted this encounter? (DM, HTN, Smoking, COPD, CAD, Cancer, CVA, ARF, Chemo, Hep., AIDS, mental health diagnosis, sleep apnea, morbid obesity)? @ -None Was patient admitted / discharged? Hospital course, mention meds given and route, prescriptions, significant lab abnormalities, going to OR and other pertinent info. @ -64-year-old female brought to the ER for replacement of feeding tube. Vital signs stable. Feeding tube replaced. Placement confirmed with x-ray. Patient discharge Did you discuss the management of the patient with other professionals (professionals i.e. , PA, [employer], lab, RT, psych nurse, social media developer, paper tube grader, teacher, staff weapons officer, case resource manager)? Give summary @ -No Was critical care preformed (if so, how long)? @ -No Undiagnosed new problem with uncertain prognosis? @ -No Drug Therapy requiring intensive monitoring for toxicity (Heparin, Nitro, Insulin, Cardizem)? @ -No Were any procedures done? @ -No Diagnosis/symptom? Acute, or Chronic, or Acute on Chronic? Uncomplicated (without systemic symptoms) or Complicated (systemic symptoms)? @ -Feeding tube replacement Side effects of treatment? @ -No Exacerbation, Progression, or Severe Exacerbation? @ -No Poses a threat to life or bodily function? How? (Chest pain, [place], [place], pneumonia, PE, COPD, DKA, ARF, appy, cholecystitis, CVA, Diverticulitis, Homicidal, Suicidal, threat to staff... and all critical care pts) @ -No Disposition Clinical Impression: Feeding tube dysfunction Disposition: HOME SELF-CARE Condition: Good Is patient prescribed a controlled substance at d/c from ED?: No Referrals: Mohit Harley MD [Primary Care Provider] - 1-2 days Time of Disposition: 17:04
--- NOTE | 2024-12-02 17:17 | XR ---
EXAMINATION TYPE: XR abdomen 1V DATE OF EXAM: 12/02/2024 4:54 PM COMPARISON: Multiple prior radiographs, most recent dated 11/27/2023. CLINICAL INDICATION: Female, 64 years old with history of peg tube replacement; PHH, pain TECHNIQUE: One radiographic view of the abdomen was obtained. FINDINGS: Nonsegmental gas pattern. Percutaneous gastrostomy tube visualized within the gastric lumen with contrast filling the stomach. Limited evaluation for free air given supine technique. IMPRESSION: Percutaneous gastrostomy tube in appropriate positioning. [facility], , 12/02/2024 5:14 PM
[2024-12-02] MEDS: oxyCODONE-APAP 7.5-325MG 1 EACH TAB PO STA (17:41)
[2024-12-02] MEDS: IBUPROFEN 800 MG TAB PEG/G-TUBE STA (17:41)
[2024-12-02] MEDS: IBUPROFEN 800 MG TAB PO STA (18:02)
[2024-12-02 18:07] VITALS: BP 172/76; PULSE 97; RESP 16; TEMP 97.9
== END 2024-12-02 18:12 | disposition home or self-care (01) ==
LOC: EC 15:31
DX: K94.23 Gastrostomy malfunction (principal); Z86.73 Personal history of transient ischemic attack (TIA), and cerebral infarction without residual deficits; Z87.891 Personal history of nicotine dependence; Z88.5 Allergy status to narcotic agent; Z88.8 Allergy status to other drugs, medicaments and biological substances
CPT/HCPCS: 74018; 99283